=== PATIENT | male | born 1935 | race Caucasian/White ===

== ENCOUNTER 2016-03-29 11:21 | Inpatient (IN) | payer MEDICARE, OTHER ==
[2016-03-29 12:13] LABS: Hematocrit 42 % (42-52); Hemoglobin 14.2 g/dl (14.0-18.0); Mean Corpuscular HGB Conc 34 g/dl (31-36); Mean Corpuscular Hemoglobin 29 pg (27-31); Mean Corpuscular Volume 85 fL (80-94); Mean Platelet Volume 9 um3 (7.4-10.4); Red Blood Count 4.99 10^6/ul (4.0-5.4); Red Cell Distribution Width 14 % (10.5-15)
[2016-03-29] MEDS ORDERED: Albuterol/Ipratropium NEB.SOL* Albuterol 2.5 MG/Ipratropium 0.5 MG 3 ML INH ONE ×2 (12:18)
[2016-03-29 12:26] LABS: Albumin 3.9 g/dL (3.2-5.2); BUN/Creatinine Ratio 17.8 (8-20); Calcium 9.1 mg/dL (8.6-10.3); EGFR African American 65.7 (>60); EGFR Non-African American 51.1 (>60); Globulin 3.2 g/dL (2-4); Magnesium 2.1 mg/dL (1.9-2.7); Potassium 4.4 mmol/L (3.5-5.0); Total Bilirubin 0.5 mg/dL (0.2-1.0); Total Protein 7.1 g/dL (6.4-8.9)
[2016-03-29 12:27] LABS: Troponin I 0.02 ng/mL (<0.04)
--- NOTE | 2016-03-29 12:52 | ED ---
John Mack Michael, scribed for Justina Rosales MD on 03/29/16 at 1152 . HPI Diabetic - HPI Summary HPI Summary: 80 y/o male comes to the ED presenting with elevated blood glucose level of 535 at 1045 this morning. The pt wsas evaluated in the ED 03/25/16 and diagnosed with a UTI. Pt followup at the [place] on Thur and was continued on Cephalexin 500mg QID. Pt has been a challenge to manage blood glucose. [facility] to start 25units Lantus BID - this has not yet been started so pt is taking 32units daily. This am, pt reported did not feel well. Pt states called the [facility], they had him check his sugar and was>550. Pt directed to the ED. In the ED, pt had a brief episode of decreased LOC. No incontinence. Pt states his aide have not been helping him with his nebulizers so has not taken in several days. Pt reports feeling increased SOB. No cp, abd pain. No n/v/d. No cough, wheeze. No fevers, chills. Pt states feels tight "like I can't air." - History Of Current Complaint Chief Complaint: EDDiabeticProb Time Seen by Provider: 03/29/16 11:30 Hx Obtained From: Patient, Medical Records Onset/Duration: Sudden Onset, Lasting Hours Timing: Constant Severity Initially: Moderate Severity Currently: Moderate Character: Alert Associated Signs & Symptoms: Negative - nausea, vomiting, CP, coughing and nasal drainage, Shortness of Breath - positive: elevated blood glucose and IRENE - Allergies/Home Medications Allergies/Adverse Reactions: Allergies Allergy/AdvReac Type Severity Reaction Status Date / Time Nitroglycerin Allergy Severe Anaphylactic Verified 03/29/16 11:31 Shock Levofloxacin [From Levaquin] Allergy Intermediate Itching Verified 03/29/16 11: 31 Iodinated Contrast Media AdvReac Severe Altered Verified 03/29/16 11:31 [IV CONTRAST DYE] Mental Status Home Medications: Home Medications Warfarin TAB(*) [Coumadin TAB(*)] 9 tab PO DAILY 03/29/16 [History Confirmed 10/06] PMH/Surg Hx/FS Hx/Imm Hx Previously Healthy: No Endocrine/Hematology History: Reports: Hx Anticoagulant Therapy, Hx Blood Transfusions, Hx Diabetes Denies: Hx Blood Disorders, Hx Bone Marrow Disease, Hx Systemic Lupus Erythematosus, Hx Sickle Cell Disease, Hx Thyroid Disease, Hx Anemia, Hx Unexplained Bleeding Cardiovascular History: Reports: Hx Angina, Hx Angioplasty, Hx Cardiac Arrest - 03/05/14, Hx Congestive Heart Failure, Hx Coronary Artery Disease, Hx Deep Vein Thrombosis, Hx Hypercholesterolemia, Hx Hypotension, Hx Hypertension, Hx Myocardial Infarction, Hx Syncope Denies: Hx Aneurysm, Hx Auto Implanted Cardiovert Defib, Hx Cardiomegaly, Hx Congenital Heart Disease, Hx Pacemaker/ICD, Hx Peripheral Vascular Disease, Hx Rheumatic Fever, Hx Valvular Heart Disease, Other Cardiovascular Problems/ Disorders Respiratory History: Reports: Hx Chronic Bronchitis, Hx Chronic Obstructive Pulmonary Disease (COPD), Hx Pleural Effusion, Hx Pneumonia, Hx Pulmonary Edema , Hx Sleep Apnea - CPAP, Other Respiratory Problems/Disorders - Bronchitis Denies: Hx Asthma, Hx Cystic Fibrosis, Hx Lung Cancer, Hx Pulmonary Embolism , Hx Seasonal Allergies GI History: Reports: Hx Gastroesophageal Reflux Disease, Hx Hiatal Hernia, Hx Obstructive Bowel Denies: Hx Cirrhosis, Hx Crohn's Disease, Hx Diverticulosis, Hx Gall Bladder Disease, Hx Gastrointestinal Bleed, Hx Irritable Bowel, Hx Jaundice, Hx Ileostomy, Hx Pyloric Stenosis, Hx Ulcer, Other GI Disorders History: Reports: Hx Benign Prostatic Hyperplasia, Hx Kidney Infection Denies: Hx Acute Renal Failure, Hx Chronic Renal Failure, Hx Dialysis, Hx Kidney Stones, Other Problems/Disorders Musculoskeletal History: Reports: Hx Arthritis, Hx Back Problems, Other Musculoskeletal History - BLE weakness hx CVA, uses scooter at home Denies: Hx Bursitis, Hx Congenital Bone Abnormalities, Hx Fibromyalgia, Hx Gout, Hx Orthopedic Injury, Hx Osteoporosis, Hx Scoliosis, Hx Tendonitis Sensory History: Reports: Hx Cataracts - due for sx, Hx Contacts or Glasses, Hx Vision Problem, Hx Hearing Problem Denies: Hx Eye Injury, Hx Eye Prosthesis, Hx Glaucoma, Hx Legally Blind, Hx Macular Degeneration, Hx Deafness, Hx Hearing Aid, Other Sensory Impairments Opthamlomology History: Reports: Hx Cataracts - due for sx, Hx Contacts or Glasses, Hx Vision Problem Denies: Hx Eye Injury, Hx Eye Prosthesis, Hx Glaucoma, Hx Legally Blind, Hx Macular Degeneration, Other Sensory Impairments Neurological History: Reports: Hx Seizures, Hx Transient Ischemic Attacks (TIA) Denies: Hx Dementia, Hx Developmental Delay, Hx Headaches, Hx Migraine, Hx Nerve Disease, Hx Spinal Cord Injury, Other Neuro Impairments/Disorders Psychiatric History: Reports: Hx Anxiety, Hx Depression - He thinks about the of his and son often., Hx Post Traumatic Stress Disorder, Other Psychiatric Issues/Disorders - Had one episode of emotional shock, but no depression etc since. Denies: Hx Attention Deficit Hyperactivity Disorder, Hx Eating Disorder, Hx Panic Disorder, Hx Inpatient Treatment, Hx Community Mental Health Tx, Hx Schizophrenia, Hx Bipolar Disorder, Hx Suicide Attempt, Hx of Violent Episodes Against Others, Hx Substance Abuse - Cancer History Cancer Type, Location and Year: Skin cancer on scalp - Surgical History Surgery Procedure, Year, and Place: Bypass 2008. hernia 1957. left shoulder sx in [place] in 1965. CABG. 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 Negative: Fever, Chills Negative: Nasal Discharge Negative: Chest Pain Positive: Shortness Of Breath. Negative: Cough Negative: Vomiting, Nausea Negative: Bruising Positive: Headache. Negative: Weakness, Numbness Psychological: Normal All Other Systems Reviewed And Are Negative: Yes Physical Exam Triage Information Reviewed: Yes Vital Signs On Initial Exam: Initial Vitals Temp Pulse Resp BP Pulse Ox 98.4 F 61 22 155/100 95 03/29/16 11:25 03/29/16 11:25 03/29/16 11:25 03/29/16 11:25 03/29/16 11:25 Vital Signs Reviewed: Yes Appearance: Positive: Ill-Appearing - Pt with mild SOB Skin: Positive: Warm, Skin Color Reflects Adequate Perfusion Head/Face: Positive: Normal Head/Face Inspection Eyes: Positive: Normal, EOMI, LJ ENT: Positive: Normal ENT inspection, Hearing grossly normal Neck: Positive: Supple, Nontender, No Lymphadenopathy Respiratory/Lung Sounds: Positive: Clear to Auscultation, Other - decreased BS b /l bases few scattered wheeze Pt with mod accessory muscle use sp. Negative: Decreased Breath Sounds, Rales, Rhonchi, Wheezes Cardiovascular: Positive: Normal, RRR. Negative: Murmur Abdomen Description: Positive: Nontender, No Organomegaly, Soft Bowel Sounds: Positive: Present Musculoskeletal: Positive: Normal, Strength/ROM Intact Neurological: Positive: Normal, Sensory/Motor Intact, Alert, Oriented to Person Place, Time Psychiatric: Positive: Normal AVPU Assessment: Alert - Nancy Coma Scale Best Eye Response: 4 - Spontaneous Best Motor Response: 6 - Obeys Commands Best Verbal Response: 5 - Oriented Diagnostics - Vital Signs Vital Signs Temp Pulse Resp BP Pulse Ox 03/29/16 11:25 98.4 F 61 22 155/100 95 - Laboratory Lab Results: Lab Results 03/29/16 03/29/16 03/29/16 Range/Units 11:34 11:34 11:34 WBC 7.0 (3.5-10.8) 10^3/ul RBC 4.99 (4.0-5.4) 10^6/ul Hgb 14.2 (14.0-18.0) g/dl Hct 42 (42-52) % MCV 85 (80-94) fL MCH 29 (27-31) pg MCHC 34 (31-36) g/dl RDW 14 (10.5-15) % Plt Count 142 L (150-450) 10^3/ul MPV 9 (7.4-10.4) um3 Neut % (Auto) 71.0 (38-83) % Lymph % (Auto) 15.8 L (25-47) % [place] % (Auto) 9.7 H (1-9) % Eos % (Auto) 3.0 (0-6) % Baso % (Auto) 0.5 (0-2) % Absolute Neuts (auto) 4.9 (1.5-7.7) 10^3/ul Absolute Lymphs (auto) 1.1 (1.0-4.8) 10^3/ul Absolute Monos (auto) 0.7 (0-0.8) 10^3/ul Absolute Eos (auto) 0.2 (0-0.6) 10^3/ul Absolute Basos (auto) 0 (0-0.2) 10^3/ul Absolute Nucleated RBC 0 10^3/ul Nucleated RBC % 0 INR (Anticoag Therapy) (0.89-1.11) APTT (26.0-36.3) seconds Sodium 129 L (133-145) mmol/L Potassium 4.4 (3.5-5.0) mmol/L Chloride 98 L (101-111) mmol/L Carbon Dioxide 29 (22-32) mmol/L Anion Gap 2 (2-11) mmol/L BUN 24 (6-24) mg/dL Creatinine 1.35 H (0.67-1.17) mg/dL Est GFR ( Amer) 65.7 (>60) Est GFR (Non-Af Amer) 51.1 (>60) BUN/Creatinine Ratio 17.8 (8-20) Glucose 423 H (70-100) mg/dL Lactic Acid 1.4 (0.5-2.0) mmol/L Calcium 9.1 (8.6-10.3) mg/dL Magnesium 2.1 (1.9-2.7) mg/dL Total Bilirubin 0.50 (0.2-1.0) mg/dL AST 11 L (13-39) U/L ALT 8 (7-52) U/L Alkaline Phosphatase 126 H (34-104) U/L Total Creatine Kinase 40 (10-223) U/L Troponin I 0.02 (<0.04) ng/mL B-Natriuretic Peptide ( - 100) pg/mL Total Protein 7.1 (6.4-8.9) g/dL Albumin 3.9 (3.2-5.2) g/dL Globulin 3.2 (2-4) g/dL Albumin/Globulin Ratio 1.2 (1-3) Phenytoin 19.0 (10-20) mcg/mL 03/29/16 03/29/16 Range/Units 11:34 11:34 WBC (3.5-10.8) 10^3/ul RBC (4.0-5.4) 10^6/ul Hgb (14.0-18.0) g/dl Hct (42-52) % MCV (80-94) fL MCH (27-31) pg MCHC (31-36) g/dl RDW (10.5-15) % Plt Count (150-450) 10^3/ul MPV (7.4-10.4) um3 Neut % (Auto) (38-83) % Lymph % (Auto) (25-47) % [place] % (Auto) (1-9) % Eos % (Auto) (0-6) % Baso % (Auto) (0-2) % Absolute Neuts (auto) (1.5-7.7) 10^3/ul Absolute Lymphs (auto) (1.0-4.8) 10^3/ul Absolute Monos (auto) (0-0.8) 10^3/ul Absolute Eos (auto) (0-0.6) 10^3/ul Absolute Basos (auto) (0-0.2) 10^3/ul Absolute Nucleated RBC 10^3/ul Nucleated RBC % INR (Anticoag Therapy) 1.57 H (0.89-1.11) APTT 30.2 (26.0-36.3) seconds Sodium (133-145) mmol/L Potassium (3.5-5.0) mmol/L Chloride (101-111) mmol/L Carbon Dioxide (22-32) mmol/L Anion Gap (2-11) mmol/L BUN (6-24) mg/dL Creatinine (0.67-1.17) mg/dL Est GFR ( Amer) (>60) Est GFR (Non-Af Amer) (>60) BUN/Creatinine Ratio (8-20) Glucose (70-100) mg/dL Lactic Acid (0.5-2.0) mmol/L Calcium (8.6-10.3) mg/dL Magnesium (1.9-2.7) mg/dL Total Bilirubin (0.2-1.0) mg/dL AST (13-39) U/L ALT (7-52) U/L Alkaline Phosphatase (34-104) U/L Total Creatine Kinase (10-223) U/L Troponin I (<0.04) ng/mL B-Natriuretic Peptide 308 H ( - 100) pg/mL Total Protein (6.4-8.9) g/dL Albumin (3.2-5.2) g/dL Globulin (2-4) g/dL Albumin/Globulin Ratio (1-3) Phenytoin (10-20) mcg/mL Result Diagrams: 03/29/16 11:34 03/29/16 11:34 Lab Statement: Any lab studies that have been ordered have been reviewed, and results considered in the medical decision making process. - Radiology CXR Xray Interpretation: Positive (See Comments) - 1. LOW LUNG VOLUMES. 2. PATCHY LEFT BASILAR ATELECTASIS VERSUS CONSOLIDATION Radiology Interpretation Completed By: Radiologist - EKG EK EKG Rhythm: Sinus Bradycardia EKG Interpretation: LBBB. similar to previous EKG on 01/2016 Re-Evaluation - Re-Evaluation First Eval Change: Improved - Pt improved following neb improved BS throughout No accessory muscle use + BS throughout no w/r Diabetic Course/Dx - Course Course Of Treatment: 80 y/o male c/o elevated blood glucose, IRENE, and SOB. The CXR was positive for low lung volume and patchy left basilar atelectasis versus consolidation. The pt was accepted as an admission by Dr. Quinn. - Diagnoses Provider Diagnoses: COPD exacerbation, Hyperglycemia - Physician Notifications Discussed Care of Patient With: Dr. Quinn-Hospitalist Time Discussed With Above Provider: 13:10 - agrees to accept pt as an admission Instructed by Provider To: Admit As Inpatient Discharge - Discharge Plan Condition: Guarded Disposition: ADMITTED TO [facility] Referrals: Jeremiah Ruano MD [Primary Care Provider] - The documentation as recorded by the John couch Michael accurately reflects the service I personally performed and the decisions made by Bobby schafer Laura, MD.
--- NOTE | 2016-03-29 13:11 | RAD ---
HISTORY: Dyspnea COMPARISONS: March 25, 2016 VIEWS:1: Single frontal portable view of the chest at 1:00 PM FINDINGS: LINES AND TUBES: None. CARDIOMEDIASTINAL SILHOUETTE: The cardiomediastinal silhouette is normal for portable technique. PLEURA: The costophrenic angles are sharp. No pleural abnormalities are noted. LUNG PARENCHYMA: The lung volumes are low. There is patchy alveolar opacification of the left lung base. ABDOMEN: The upper abdomen is clear. There is no subphrenic gas. BONES AND SOFT TISSUES: The patient is status post median sternotomy. IMPRESSION: 1. LOW LUNG VOLUMES. 2. PATCHY LEFT BASILAR ATELECTASIS VERSUS CONSOLIDATION
[2016-03-29 13:21] LABS: PCO2 Arterial 42 mmHg (35-45)
[2016-03-29] MEDS ORDERED: Ondansetron INJ* 2 MG/ML VIAL IV PRN (13:47)
[2016-03-29] MEDS ORDERED: Dextrose 50% Syringe 50 ML* 25 GM/50 ML SYRINGE IV PUSH PRN ×2 (13:47→17:42)
[2016-03-29] MEDS ORDERED: Acetaminophen TAB* 325 MG PO PRN (13:47)
[2016-03-29] MEDS ORDERED: Albuterol 2.5 MG/3 ML NEB.SOL* (0.083%) INH PRN (13:47)
[2016-03-29] MEDS ORDERED: Heparin VIAL(*) 5000 UNITS/ML VIAL (FIVE THOUSAND) SUBCUT SCH (14:00)
[2016-03-29] MEDS: Albuterol/Ipratropium NEB.SOL* Albuterol 2.5 MG/Ipratropium 0.5 MG 3 ML INH SCH ×3 (15:50→22:40)
[2016-03-29] MEDS: Cephalexin CAP* 500 MG PO SCH ×2 (16:19→20:57)
[2016-03-29] MEDS: Warfarin TAB(*) 6 MG PO SCH (16:19)
[2016-03-29] MEDS ORDERED: Insulin LISPRO* 1 UNITS UNIT SUBCUT ONE (17:42)
[2016-03-29] MEDS: Insulin LISPRO* 1 UNITS UNIT SUBCUT SCH (17:49)
[2016-03-29] MEDS: Budesonide NEB* 0.5 MG/2 ML NEB.SOLN INH SCH (20:20)
[2016-03-29] MEDS: Phenytoin CAP(*) 100 MG CAP.ER PO SCH (20:57)
[2016-03-29] MEDS: traZODone TAB* 50 MG TAB PO SCH (20:57)
[2016-03-29] MEDS: Furosemide TAB* 40 MG PO SCH (20:57)
[2016-03-29] MEDS: Insulin GLARGINE(*) 1 UNITS UNIT SUBCUT SCH (20:58)
--- NOTE | 2016-03-29 21:40 | HP ---
HISTORY AND PHYSICAL:* DATE OF ADMISSION: 03/29/16 ADDENDUM: Foster Escamilla is a 80-year-old male known to us for previous multiple hospitalizations. The patient has a history of oxygen-dependent COPD and chronic hypercarbic respiratory failure. The patient also has history of recurrent syncopal episodes in the past and left bundle-branch block. He presented to the hospital with complaints of hyperglycemia. He also was noted to be wheezing. He had a syncopal episode in the emergency room. He is in sinus bradycardia at this point. The patient is going to be placed for overnight observation due to his syncope. His COPD is going to be continued to be treated with outpatient medications and nebulizers. We will adjust his medications for his diabetes. For further details of the patient's presentation and plan, please see history and physical dictated by Alex Alegria NP, on 03/29/16 with which I agree. [id number]/CPS #: [id number] MTDD
--- NOTE | 2016-03-29 21:56 | HP ---
ATTENDING PROVIDER ADDENDUM NOW INCLUDED ON THIS REPORT HISTORY AND PHYSICAL: DATE OF ADMISSION: 03/29/16 PRIMARY CARE PROVIDER: Kamla Henry NP ATTENDING PHYSICIAN WHILE IN THE HOSPITAL: Dr. Jonelle Quinn *(report dictated by Alex Alegria NP). CHIEF COMPLAINT: Elevated blood sugar. HISTORY OF PRESENT ILLNESS: Mr. Escamilla is a 80-year-old male patient well known to our service who comes in to the ER again today stating that his blood sugar is high at 535. He was just here on the third of this month. I evaluated the patient, adjusted his Lantus, and he was diagnosed with UTI, was treated with this appropriately with Keflex and he came back again today because his sugars had been elevated. He apparently saw his primary on , was told to increase his Lantus to 25 subcu b.i.d. which he misread as 25 once a day. He checked his sugars this morning. It was 535. He came in to the ER. He also carries a history of coronary artery disease, history of SC, diabetes, hypertension, depression, COPD, TAMICA, tracheomalacia, obesity, hypoventilation syndrome, BPH, seizure, CVA x3, hyperlipidemia, hypertension, and history of skin cancer. The patient on the way when he was first evaluated here in the ER , he had an episode where he was very tachypneic. He felt very short of breath. He actually had a presyncopal episode. He felt like he is going to faint. The nurse said that he did appear to have fainted possibly for 10 to 15 seconds. The nurse had to sternal rub him and he awoken and he knew where he was. Unfortunately, he was not on the clinical research monitor when that happened. They treated the patient's shortness of breath with nebs. He felt better, but there was concern because his sugars are not well controlled. In addition to this, he had been more short of breath when he first came in and he also states that there was a presyncopal or syncopal episode. The patient denies having any chest pain. He does not have any shortness of breath now. He says he did feel short of breath coming in, but he says he has been missing his nebs off and on because according to the patient, there has been trouble with his aide service at home. He also says he is under a lot of stress because he is being relocated from his home of 13 [address] in [place] which he is not happy about. He does state that he had dysuria 3 days ago, but is now much improved since being on the antibiotics. Denies any fevers or chills. There has been no nausea, vomiting, or diarrhea. Ultimately, because of that syncopal episode in the ER, we were asked to evaluate for admission and help manage his other medical problems. PAST MEDICAL HISTORY: Significant for: 1. CAD. 2. SC. 3. Diabetes. 4. Hypertension. 5. Depression. 6. COPD. 7. TAMICA. 8. Tracheomalacia. 9. Obesity. 10. Hypoventilation syndrome. 11. Seizure. 12. CVA x3. 13. Hypertension. 14. BPH. 15. Skin cancer. PAST SURGICAL HISTORY: 1. He has had CABG. 2. Tracheostomy. 3. Hernia repair. HOME MEDICATIONS: According to the list he gave us: 1. Coreg 3.125 mg p.o. b.i.d. 2. Lantus 25 units subcu b.i.d., recently changed from 37 units daily. 3. Ventolin 2.5 inhaled q.4 hours as needed. 4. Lipitor 10 mg daily. 5. Aspirin 81 mg daily. 6. Ventolin 2 puffs inhaled every 4 hours as needed. 7. Lubricant eye drops 1 drop both eyes b.i.d. as needed. 8. Pulmicort 0.5 mg inhaled b.i.d. 9. Vitamin D 2000 units daily. 10. Clobetasol 1 application topically b.i.d. as needed. 11. Lasix 40 mg p.o. b.i.d. 12. Proscar 5 mg p.o. daily. 13. Nystatin 1 application topically b.i.d. as needed. 14. Multivitamin 1 tablet daily. 15. Zoloft 100 mg daily. 16. Senna 2 tabs p.o. b.i.d. as needed. 17. Dilantin 200 mg p.o. b.i.d. 18. Warfarin 9 mg p.o. Thursday, Thursday, Thursday. 19. Warfarin 6 mg Thursday, Thursday, , and Thursday. 20. Guaifenesin 5 mg p.o. every 4 hours as needed. 21. Trazodone 75 mg at bedtime. 22. Glucophage 500 mg at bedtime. ALLERGIES TO MEDICATIONS: Include NITRO, LEVAQUIN, and IV DYE. FAMILY HISTORY: Mother had a history of heart disease. Father had a history of rectal cancer. SOCIAL HISTORY: He does not smoke, does not drink. Lives alone. Surrogate decision maker is his friend, Anabella. REVIEW OF SYSTEMS: There is no documented fever. He denied having any significant weight change. There was no double vision. There is no ear discharge. He denies having any rhinorrhea. There is no sore throat. No thyroid enlargement. Denies having any chest pain. There was dyspnea on exertion when he came to the ER today. There is no orthopnea. No nocturnal dyspnea. There is no abdominal pain. No vomiting. There was dysuria, but has now improved. No frequency. No seizure. There was loss of consciousness in the ER. Review of 14 systems completed, all others negative. PHYSICAL EXAMINATION GENERAL: At this time, Mr. Escamilla is a 80-year-old male patient. He appears chronically ill. He is sitting on the ER stretcher. He does not appear to be in any acute distress. VITAL SIGNS: Blood pressure 119/44, pulse 50, respirations 17, O2 sat 97%, temperature 98.4. HEENT: Head: Atraumatic, normocephalic. Eyes: EOMs intact. Sclerae are anicteric and not pale. Throat: Oral mucosa appears to be moist. No oropharyngeal erythema. NECK: Supple. LUNGS: Clear to auscultation bilaterally. No wheezes, rales, or rhonchi. HEART: Sounds S1, S2. Irregular rate. There was a regular rhythm. His resting heart rate was 50. No murmurs, rubs, or gallops. ABDOMEN: Soft, flat, nontender. Bowel sounds present. EXTREMITIES: Pulses were 2+ throughout. He is able to move all 4 extremities with 5/5 strength. NEUROLOGIC: He is awake, alert, and oriented x3. Tongue midline. Salvage Repairer are equal. No gross focal deficits. SKIN: Grossly intact. LABORATORY DATA AND DIAGNOSTIC STUDIES: Today revealed a WBC of 7.0, RBC of 4.99, hemoglobin of 14.2, hematocrit of 43, platelet count of 142. INR was 1.57. PTT of 30.2. Blood gas revealed a pH of 7.42, PCO2 of 42, PO2 of 87. His sodium was 129, potassium of 4.4, chloride of 98, bicarb 29, BUN 24, creatinine 1.35, glucose 423, lactic 1.4, calcium 9.1, mag 2.1. Total bili 0.5 , AST 11, ALT 8, alk phos 129. CK of 40. Troponin 0.02. BNP of 308. Albumin of 3.9. Toxicology showed a phenytoin level of 19. He had a chest x-ray obtained today and under my review, I did not appreciate any acute infiltrates. Radiology read it as low lung volumes, patchy left bibasilar atelectasis versus consolidation. He had an EKG obtained today which showed a first degree AV block. He has an elevated [place]. He has a PVC noted. His resting heart rate was 49 and he had a left bundle branch block. Heart rate on 03/25/16 was noted to be 67. Old medical records were reviewed. ASSESSMENT AND PLAN: Mr. Escamilla is a 80-year-old male patient coming in to the ER today with complaints of elevated glucose, but on evaluation here today had a syncopal episode here in the ER. He will be admitted under outpatient status for: 1. Hyperglycemia: At this point, he told me on 03/25/16 that he was having dietary indiscretion, but I also think that his urinary tract infection is probably contributing. I am going to go ahead and continue him on lispro sliding scale. His Lantus was just changed on 03/27/16 to 25 b.i.d., but he has not implemented it yet. So, we will put him on Lantus 25 b.i.d. and see how this improves his sugar and we will continue his metformin. I will put him on a consistent carbohydrate diet. 2. Syncopal episode: Again, etiology unclear. Resting heart rate is 49 to 50 , which may be symptomatic in this patient. I think at this point, we will hold his Coreg. Check an echo, place him on telemetry to see if we can capture any episodes on telemetry. May need to consider a Cardiology consult. 3. Coronary artery disease: Continue his aspirin and statin. We will hold the beta-placido. 4. History of diabetes: Again, put him on lispro sliding scale and Lantus. 5. Hypertension: Continue meds as prescribed. 6. Depression: Continue with supportive care. 7. Chronic obstructive pulmonary disease: When he came in, he was hyperventilating which certainly may have contributed to the syncope. He says he has not been taking his nebs. After getting a neb here in the ER, he says his breathing is back to his baseline and he is not wheezing. So, at this point , we will continue the nebs every 4 hours while he is awake and continue his home meds. 8. Obstructive sleep apnea: I ordered a CPAP. 9. Obesity and tracheomalacia: Follow with his primary. 10. Hypoventilation syndrome: Again, CPAP on sleeping. 11. Seizure: Please continue his Dilantin and we will continue seizure precautions. 12. History of cerebrovascular accident x3: Continue with secondary prevention. 13. Hyperlipidemia: Continue statin therapy. 14. Benign prostatic hypertrophy: Continue meds as prescribed. 15. DVT prophylaxis: INR is 1.57. We can continue his Coumadin for the time being. 16. Code status: He is a full code. 17. Fluids, electrolytes, and nutrition: He can have a consistent carbohydrate diet. TIME SPENT: Time spent on the admission was approximately 60 minutes; greater than half the time was spent [id number] with the patient obtaining my history and physical, other half the time spent going over the plan of care with the patient and implementing plan of care. I did discuss the plan of care with my attending, Dr. Quinn; she is in agreement. ALEX ALEGRIA NP ADDENDUM: Foster Escamilla is a 80-year-old male known to us for previous multiple hospitalizations. The patient has a history of oxygen-dependent COPD and chronic hypercarbic respiratory failure. The patient also has history of recurrent syncopal episodes in the past and left bundle-branch block. He presented to the hospital with complaints of hyperglycemia. He also was noted to be wheezing. He had a syncopal episode in the emergency room. He is in sinus bradycardia at this point. The patient is going to be placed for overnight observation due to his syncope. His COPD is going to be continued to be treated with outpatient medications and nebulizers. We will adjust his medications for his diabetes. For further details of the patient's presentation and plan, please see history and physical dictated by Alex Alegria NP, on 03/29/16 with which I agree. JONELLE QUINN MD CC: Kamla Henry NP* [id number] #: [id number] #: [id number] MTDGeorgina
[2016-03-30] MEDS: Albuterol/Ipratropium NEB.SOL* Albuterol 2.5 MG/Ipratropium 0.5 MG 3 ML INH SCH ×6 (03:00→23:52)
[2016-03-30 05:17] LABS: Hematocrit 36 % (42-52); Hemoglobin 12.3 g/dl (14.0-18.0); Mean Corpuscular HGB Conc 34 g/dl (31-36); Mean Corpuscular Hemoglobin 29 pg (27-31); Mean Corpuscular Volume 84 fL (80-94); Mean Platelet Volume 9 um3 (7.4-10.4); Red Blood Count 4.32 10^6/ul (4.0-5.4); Red Cell Distribution Width 15 % (10.5-15); White Blood Count 6.2 10^3/ul (3.5-10.8)
[2016-03-30 05:32] LABS: BUN/Creatinine Ratio 25.4 (8-20); Calcium 8.6 mg/dL (8.6-10.3); EGFR African American 76.8 (>60); EGFR Non-African American 59.7 (>60); Potassium 4.1 mmol/L (3.5-5.0)
[2016-03-30] MEDS: Budesonide NEB* 0.5 MG/2 ML NEB.SOLN INH SCH ×2 (07:23→21:18)
[2016-03-30] MEDS: Atorvastatin* 10 MG TAB PO SCH (08:38)
[2016-03-30] MEDS: Furosemide TAB* 40 MG PO SCH ×2 (08:38→22:25)
[2016-03-30] MEDS: Cephalexin CAP* 500 MG PO SCH ×4 (08:38→22:25)
[2016-03-30] MEDS: Phenytoin CAP(*) 100 MG CAP.ER PO SCH ×2 (08:38→22:24)
[2016-03-30] MEDS: Finasteride TAB* 5 MG PO SCH (08:39)
[2016-03-30] MEDS: Insulin LISPRO* 1 UNITS UNIT SUBCUT SCH ×3 (08:39→17:39)
[2016-03-30] MEDS: Aspirin EC Low Dose* 81 MG TAB.EC PO SCH (08:39)
[2016-03-30] MEDS: Sertraline* 100 MG TAB PO SCH (08:39)
[2016-03-30] MEDS: Insulin GLARGINE(*) 1 UNITS UNIT SUBCUT SCH ×2 (08:40→22:26)
[2016-03-30] MEDS ORDERED: Influenza VAC *QUAD* 2016-17* 0.5 ML SYRINGE IM ONE (09:00)
[2016-03-30] MEDS ORDERED: Pneumococcal *Vac Polyvalent 0.5 ML VIAL IM ONE (09:00)
--- NOTE | 2016-03-30 14:21 | ECHO ---
Patient: MONSTER HENDERSON [facility] Rec#: [id number] : 1935 Date: 03/30/2016 Age: 80y Weight: kg / NaN lbs Sex: M Room#: 442 Admit Date#: 03/29/2016 Type: Inpatient Referring: Alex Alegria NP Reading: Kali Chapman MD Heart Coordinator: Meghan Puente RDCS CC: Jeremiah Ruano MD Transthoracic Echocardiogram Indication: SOB/Syncope BP: 122/57 HR: 62 Rhythm: NSR Findings History: CAD,NV,DM,HTN,depression,COPD,TAMICA,MO,seizures,prior CVAx3,HTN. Technical Comments: The study is technically limited due to patient body habitus. The study is technically limited due to the patient's history of COPD. Completed at 1039 The study was technically limited due to the patient's inability to lay in the left lateral decubitus position. Pt OOB in chair during study. Left Ventricle: The left ventricular chamber size is decreased. Moderate concentric left ventricular hypertrophy is observed. The estimated ejection fraction is 55-60%. There is a left ventricular septal wall motion abnormality observed, possibly due to the presence of a left bundle branch block. The left ventricular diastolic filling pattern is consistent with pseudonormalization. Left Atrium: The left atrium is moderately dilated. Right Ventricle: The right ventricle is not well visualized. Right Atrium: The right atrial cavity size is normal. Aortic Valve: The aortic valve leaflets are moderately thickened. Systolic excursion of the aortic valve cusps is reduced. There is no evidence of aortic regurgitation. There is severe aortic stenosis. Highest aortic valve velocity was acquired with Pedoff in apical position. Mitral Valve: There is anterior mitral annular calcification. The mitral valve leaflets are moderately thickened. Mitral valve leaflet mobility is moderately restricted. There is no evidence of mitral regurgitation. There is moderate mitral stenosis. Tricuspid Valve: The tricuspid valve structure is not well visualized. Pulmonic Valve: The pulmonic valve structure is not well visualized. Pericardium: There is no pericardial effusion. A pericardial fat pad is visualized. Aorta: There is no dilatation of the ascending aorta. There is no dilatation of the aortic arch. There is mild dilatation of the aortic root. Pulmonary Artery: The main pulmonary artery appears normal. Venous: The venous system is not well visualized. Conclusions The study is technically limited due to the patient's history of COPD. Completed at 1039 Moderate concentric left ventricular hypertrophy is observed. The estimated ejection fraction is 55-60%. There is a left ventricular septal wall motion abnormality observed, possibly due to the presence of a left bundle branch block. The left ventricular diastolic filling pattern is consistent with pseudonormalization. Systolic excursion of the aortic valve cusps is reduced. There is severe aortic stenosis. There is no evidence of aortic regurgitation. The mitral valve leaflets are moderately thickened. There is moderate mitral stenosis. The tricuspid valve structure is not well visualized. There is no pericardial effusion. There is no dilatation of the ascending aorta. Measurements Name Value Normal Range RVIDd (AP) 2D 3.5 cm (0.9 - 2.6) RVDdMajor (2D) 3.4 cm (2.2 - 4.4) RAd ISD 4CH 4.5 cm (3.4 - 4.9) RA (A4C)W 3.8 cm (2.9 - 4.6) IVSd (2D) 1.7 cm (0.6 - 1) LVPWd (2D) 1.5 cm (0.6 - 1) LVIDd (2D) 3.5 cm (3.6 - 5.4) LVIDs (2D) 2.9 cm - LV FS (2D) 40 % (25 - 45) Aortic Annulus 2.1 cm (1.4 - 2.6) Ao root diameter (2D) 3 cm (2.1 - 3.5) Ascending Ao 3.9 cm (2.1 - 3.4) Aortic arch 2.8 cm (1.8 - 3.4) Descending Ao 0.7 cm - LA dimension (AP) 2D 4.5 cm (2.3 - 3.8) LAd ISD 4CH 5.9 cm (2.9 - 5.3) LA ISD 4CH W 4.3 cm (2.5 - 4.5) Name Value Normal Range LA ESV SP 4CH (A/L) 90 ml - LA ESV SP 2CH (A/L) 122 ml - LA ESV BP (A/L) 120 ml - LA ESV BP (A/L) index 62.79 ml/m2 - LA ESV SP 4CH (MOD) 85 ml - LA ESV SP 2CH (MOD) 113 ml - Name Value Normal Range MV E-wave Vmax 1.8 m/sec - MV deceleration time 437 msec - MV A-wave Vmax 1.4 m/sec - MV E:A ratio 1.25 ratio - LV septal e' Vmax 0.06 m/sec - LV lateral e' Vmax 0.07 m/sec - LV E:e' septal ratio 30 ratio - LV E:e' lateral ratio 25.71 ratio - Name Value Normal Range AV Vmax 3.57 m/sec - AV VTI 84.24 cm - AV peak gradient 50.39 mmHg - AV mean gradient 21.31 mmHg - LVOT diameter 1.8 cm - LVOT Vmax 1 m/sec - LVOT VTI 22.4 cm - LVOT peak gradient 4.3 mmHg - LVOT mean gradient 1.89 mmHg - MARQUEZ (continuity Vmax) 0.7 cm2 - MARQUEZ (continuity VTI) 0.7 cm2 - Name Value Normal Range MV Vmax 1.8 m/sec - MV VTI 74.3 cm - MV peak gradient 13.32 mmHg - MV mean gradient 5.36 mmHg - MV PHT 128 msec - MVA (PHT) 1.7 cm2 - MVA (continuity VTI) 0.8 cm2 - Name Value Normal Range IVC diameter 2.3 cm - Name Value Normal Range PV Vmax 1.3 m/sec - PV peak gradient 6.59 mmHg -
--- NOTE | 2016-03-30 16:52 | PN ---
Subjective Date of Service: 03/30/16 Interval History: Seen and examined this AM Feels LH when walking. He is concerned about returning home today. Objective Active Medications: Acetaminophen (Tylenol Tab*) 650 mg PO Q4H PRN PRN Reason: FEVER/PAIN Albuterol (Ventolin 2.5 Mg/3 Ml Neb.Kika*) 2.5 mg INH Q2H PRN PRN Reason: SOB/WHEEZING Albuterol/Ipratropium (Duoneb Neb.Kika*) 1 neb INH [id number] AWAKE [facility] Last Admin: 03/30/16 16:07 Dose: 1 neb Aspirin (Aspirin Ec Low Dose*) 81 mg PO QAM [facility] Last Admin: 03/30/16 08:39 Dose: 81 mg Atorvastatin Calcium (Lipitor*) 10 mg PO DAILY [facility] Last Admin: 03/30/16 08:38 Dose: 10 mg Budesonide (Pulmicort Neb*) 0.5 mg INH BID [facility] Last Admin: 03/30/16 07:23 Dose: 0.5 mg Cephalexin HCl (Keflex Cap*) 500 mg PO QID [facility] Last Admin: 03/30/16 12:43 Dose: 500 mg Dextrose (D50w Syringe 50 Ml*) 12.5 gm IV PUSH .FOR FS < 60 - SS PRN PRN Reason: FS < 60 Finasteride (Proscar Tab*) 5 mg PO DAILY [facility] Last Admin: 03/30/16 08:39 Dose: 5 mg Furosemide (Lasix Tab*) 40 mg PO BID [facility] Last Admin: 03/30/16 08:38 Dose: 40 mg Insulin Glargine (Lantus(*)) 25 units SUBCUT BID [facility] Last Admin: 03/30/16 08:40 Dose: 25 unit Insulin Human Lispro (Humalog*) 0 units SUBCUT AC [facility] PRN Reason: Protocol Last Admin: 03/30/16 12:31 Dose: 12 units Ondansetron HCl (Zofran Inj*) 4 mg IV Q6H PRN PRN Reason: NAUSEA Phenytoin Sodium (Dilantin Cap(*)) 200 mg PO BID [facility] Last Admin: 03/30/16 08:38 Dose: 200 mg Sertraline HCl (Zoloft*) 100 mg PO QAM [facility] Last Admin: 03/30/16 08:39 Dose: 100 mg Trazodone HCl (Desyrel Tab*) 75 mg PO BEDTIME [facility] Last Admin: 03/29/16 20:57 Dose: 75 mg Warfarin Sodium (Coumadin Tab(*)) 6 mg PO SUTUTHSA@1700 [facility] PRN Reason: Protocol Last Admin: 03/29/16 16:19 Dose: 6 mg Warfarin Sodium (Coumadin Tab(*)) 9 mg PO MOWEFR@1700 [facility] PRN Reason: Protocol Vital Signs 03/29/16 03/29/16 03/29/16 17:07 17:32 19:28 Temperature 97.9 F 98.0 F Pulse Rate 60 60 Respiratory 20 20 Rate Blood Pressure 143/53 114/45 (mmHg) O2 Sat by Pulse 98 98 98 Oximetry 03/29/16 03/29/16 03/29/16 19:42 20:00 20:33 Temperature Pulse Rate 53 Respiratory 18 20 18 Rate Blood Pressure (mmHg) O2 Sat by Pulse 98 Oximetry 03/30/16 03/30/16 03/30/16 00:10 03:25 07:26 Temperature 97.3 F 96.8 F Pulse Rate 57 50 51 Respiratory 20 20 18 Rate Blood Pressure 130/55 122/57 (mmHg) O2 Sat by Pulse 98 100 99 Oximetry 03/30/16 03/30/16 03/30/16 07:33 08:00 11:05 Temperature 98.0 F Pulse Rate 46 51 Respiratory 16 18 18 Rate Blood Pressure 111/79 (mmHg) O2 Sat by Pulse 100 99 Oximetry 03/30/16 03/30/16 11:37 16:09 Temperature Pulse Rate 50 56 Respiratory 16 Rate Blood Pressure 145/41 (mmHg) O2 Sat by Pulse 98 100 Oximetry Oxygen Devices in Use Now: Nasal Cannula Appearance: NAD, sitting in chair Eyes: No Scleral Icterus, PERRLA Ears/Nose/Mouth/Throat: Mucous Membranes Moist Neck: NL Appearance and Movements; NL JVP, Trachea Midline Respiratory: Symmetrical Chest Expansion and Respiratory Effort, - - decreased in bases Cardiovascular: RRR Abdominal: NL Sounds; No Tenderness; No Distention, No Hepatosplenomegaly Extremities: No Edema Neurological: Alert and Oriented x 3 Result Diagrams: 03/30/16 04:51 03/30/16 04:51 Additional Lab and Data: Lab Results 03/29/16 03/29/16 03/29/16 Range/Units 11:34 11:34 11:34 WBC 7.0 (3.5-10.8) 10^3/ul RBC 4.99 (4.0-5.4) 10^6/ul Hgb 14.2 (14.0-18.0) g/dl Hct 42 (42-52) % MCV 85 (80-94) fL MCH 29 (27-31) pg MCHC 34 (31-36) g/dl RDW 14 (10.5-15) % Plt Count 142 L (150-450) 10^3/ul MPV 9 (7.4-10.4) um3 Neut % (Auto) 71.0 (38-83) % Lymph % (Auto) 15.8 L (25-47) % Jessamine % (Auto) 9.7 H (1-9) % Eos % (Auto) 3.0 (0-6) % Baso % (Auto) 0.5 (0-2) % Absolute Neuts (auto) 4.9 (1.5-7.7) 10^3/ul Absolute Lymphs (auto) 1.1 (1.0-4.8) 10^3/ul Absolute Monos (auto) 0.7 (0-0.8) 10^3/ul Absolute Eos (auto) 0.2 (0-0.6) 10^3/ul Absolute Basos (auto) 0 (0-0.2) 10^3/ul Absolute Nucleated RBC 0 10^3/ul Nucleated RBC % 0 INR (Anticoag Therapy) (0.89-1.11) APTT (26.0-36.3) seconds Sodium 129 L (133-145) mmol/L Potassium 4.4 (3.5-5.0) mmol/L Chloride 98 L (101-111) mmol/L Carbon Dioxide 29 (22-32) mmol/L Anion Gap 2 (2-11) mmol/L BUN 24 (6-24) mg/dL Creatinine 1.35 H (0.67-1.17) mg/dL Est GFR ( Amer) 65.7 (>60) Est GFR (Non-Af Amer) 51.1 (>60) BUN/Creatinine Ratio 17.8 (8-20) Glucose 423 H (70-100) mg/dL Lactic Acid 1.4 (0.5-2.0) mmol/L Calcium 9.1 (8.6-10.3) mg/dL Magnesium 2.1 (1.9-2.7) mg/dL Total Bilirubin 0.50 (0.2-1.0) mg/dL AST 11 L (13-39) U/L ALT 8 (7-52) U/L Alkaline Phosphatase 126 H (34-104) U/L Total Creatine Kinase 40 (10-223) U/L Troponin I 0.02 (<0.04) ng/mL B-Natriuretic Peptide ( - 100) pg/mL Total Protein 7.1 (6.4-8.9) g/dL Albumin 3.9 (3.2-5.2) g/dL Globulin 3.2 (2-4) g/dL Albumin/Globulin Ratio 1.2 (1-3) Phenytoin 19.0 (10-20) mcg/mL 03/29/16 03/29/16 Range/Units 11:34 11:34 WBC (3.5-10.8) 10^3/ul RBC (4.0-5.4) 10^6/ul Hgb (14.0-18.0) g/dl Hct (42-52) % MCV (80-94) fL MCH (27-31) pg MCHC (31-36) g/dl RDW (10.5-15) % Plt Count (150-450) 10^3/ul MPV (7.4-10.4) um3 Neut % (Auto) (38-83) % Lymph % (Auto) (25-47) % Jessamine % (Auto) (1-9) % Eos % (Auto) (0-6) % Baso % (Auto) (0-2) % Absolute Neuts (auto) (1.5-7.7) 10^3/ul Absolute Lymphs (auto) (1.0-4.8) 10^3/ul Absolute Monos (auto) (0-0.8) 10^3/ul Absolute Eos (auto) (0-0.6) 10^3/ul Absolute Basos (auto) (0-0.2) 10^3/ul Absolute Nucleated RBC 10^3/ul Nucleated RBC % INR (Anticoag Therapy) 1.57 H (0.89-1.11) APTT 30.2 (26.0-36.3) seconds Sodium (133-145) mmol/L Potassium (3.5-5.0) mmol/L Chloride (101-111) mmol/L Carbon Dioxide (22-32) mmol/L Anion Gap (2-11) mmol/L BUN (6-24) mg/dL Creatinine (0.67-1.17) mg/dL Est GFR ( Amer) (>60) Est GFR (Non-Af Amer) (>60) BUN/Creatinine Ratio (8-20) Glucose (70-100) mg/dL Lactic Acid (0.5-2.0) mmol/L Calcium (8.6-10.3) mg/dL Magnesium (1.9-2.7) mg/dL Total Bilirubin (0.2-1.0) mg/dL AST (13-39) U/L ALT (7-52) U/L Alkaline Phosphatase (34-104) U/L Total Creatine Kinase (10-223) U/L Troponin I (<0.04) ng/mL B-Natriuretic Peptide 308 H ( - 100) pg/mL Total Protein (6.4-8.9) g/dL Albumin (3.2-5.2) g/dL Globulin (2-4) g/dL Albumin/Globulin Ratio (1-3) Phenytoin (10-20) mcg/mL Assess/Plan/Problems-Billing Assessment: 80 yo M multiple medical problems presenting to [facility] [place] with hyperglycemia after medication changes as outpatient - Patient Problems (1) Diabetes mellitus Comment: Complicated by hyperglycemia Increased lantus to 25U BID Remains high today Remain hospitalized for further medication adjustments c/w lantus and SSI (2) Afib Comment: Bradycardic on admission Possibly contributing to LH and episode of presyncope in ED diltiazem discontinued c/w coumadin - check INR in AM (3) Aortic stenosis Comment: Seen on TTE Not new unlikely etiology of presyncope as patient was at rest avoid any aggressive volume repletion (4) TAMICA (obstructive sleep apnea) Comment: Continue CPAP (5) Obesity hypoventilation syndrome Comment: CPAP (6) UTI (urinary tract infection) Comment: c/w keflex day 5 (7) Seizure Comment: Continue phenytoin. (8) DVT prophylaxis Comment: coumadin
[2016-03-30 17:27] LABS: EGFR African American 61.5 (>60); EGFR Non-African American 47.8 (>60); Potassium 4.2 mmol/L (3.5-5.0)
[2016-03-30] MEDS: Warfarin TAB(*) 6 MG PO SCH (17:40)
[2016-03-30] MEDS: traZODone TAB* 50 MG TAB PO SCH (22:24)
[2016-03-31 01:28] LABS: Budding Yeast Present (Absent); Urine Bacteria Absent (Absent); Urine Bilirubin Negative (Negative); Urine Glucose 3+(>=500 mg/dL) (Negative); Urine Nitrite Negative (Negative)
[2016-03-31] MEDS: Albuterol/Ipratropium NEB.SOL* Albuterol 2.5 MG/Ipratropium 0.5 MG 3 ML INH SCH ×6 (03:17→22:54)
[2016-03-31] MEDS: Sertraline* 100 MG TAB PO SCH (08:19)
[2016-03-31] MEDS: Cephalexin CAP* 500 MG PO SCH ×3 (08:19→17:53)
[2016-03-31] MEDS: Finasteride TAB* 5 MG PO SCH (08:19)
[2016-03-31] MEDS: Phenytoin CAP(*) 100 MG CAP.ER PO SCH (08:19)
[2016-03-31] MEDS: Atorvastatin* 10 MG TAB PO SCH (08:19)
[2016-03-31] MEDS: Furosemide TAB* 40 MG PO SCH (08:20)
[2016-03-31] MEDS: Aspirin EC Low Dose* 81 MG TAB.EC PO SCH (08:20)
[2016-03-31] MEDS: Insulin LISPRO* 1 UNITS UNIT SUBCUT SCH ×3 (08:20→17:53)
[2016-03-31] MEDS: Insulin GLARGINE(*) 1 UNITS UNIT SUBCUT SCH (08:20)
[2016-03-31] MEDS: Budesonide NEB* 0.5 MG/2 ML NEB.SOLN INH SCH ×2 (08:49→19:25)
[2016-03-31] MEDS ORDERED: Warfarin TAB(*) 6 MG PO SCH (17:00)
[2016-03-31 17:37] VITALS: BP 153/55
[2016-04-01] MEDS: Albuterol/Ipratropium NEB.SOL* Albuterol 2.5 MG/Ipratropium 0.5 MG 3 ML INH SCH (02:48)
--- NOTE | 2016-04-01 16:42 | DS ---
DISCHARGE SUMMARY: DATE OF ADMISSION: 03/29/16 DATE OF DISCHARGE: 03/31/16 PRIMARY CARE PROVIDER: Dr. Kamla Henry as well as Dr. Jeremiah Ruano. PRIMARY DIAGNOSIS: Hyperglycemia. SECONDARY DIAGNOSES: 1. Urinary tract infection. 2. Concern for presyncope. 3. History of coronary artery disease. 4. Diabetes. 5. Hypertension. 6. Depression. 7. Chronic obstructive pulmonary disease. 8. Obstructive sleep apnea. 9. History of tracheomalacia. 10. Hypoventilation syndrome. 11. History of seizures. 12. Cerebrovascular accident. DISCHARGE MEDICATIONS: 1. Insulin Lantus 50 units daily. 2. Albuterol nebulizer 2.5 mg inhaled every 4 hours as needed for shortness of breath or wheezing. 3. Lipitor mg daily. 4. Aspirin 81 mg daily. 5. Albuterol HFA 2 puffs inhaled every 4 hours as needed for shortness of breath or wheezing. 6. Lubricant eye drops 0.5% both eyes twice daily as needed. 7. Budesonide 0.5 mg inhaled twice daily. 8. Vitamin D 2000 units in the morning. 9. Clobetasol 0.05 ointment 1 application twice daily as needed for dry skin or pruritus. 10. Lasix 40 mg twice daily. 11. Finasteride 5 mg daily. 12. Nystatin 1 application topically twice daily as needed. 13. Multivitamin 1 tablet daily. 14. Zoloft 100 mg in the morning. 15. Senna 2 tabs twice daily as needed for constipation. 16. Dilantin 200 mg twice daily. 17. Coumadin 9 mg Thursday, Thursday, Thursday and 6 mg Thursday, , Thursday, and Thursday. 18. Guaifenesin 5 mg 4 times a day as needed for cough. 19. Trazodone 75 mg at bedtime. 20. Metformin 500 mg in the evening. 21. Keflex 500 mg 4 times a day until he completes his course. HISTORY OF PRESENT ILLNESS AND HOSPITAL COURSE: This is a 80-year-old man past medical history as outlined in the history of present illness on the day of admission, well known to our service, presented to the hospital with elevated blood sugar with blood sugar by serum elevated at 479 in the setting of recent medication changes. Apparently, the patient has Lantus increased from 32 to 50 units, but had the 50 units split to be twice daily. The patient misunderstood this and was only taking 25 units daily, ultimately resulting in hyperglycemia. In the emergency room, there was concern that he was either presyncopal or actually lost consciousness and the patient was admitted to the hospital for further observation. He was restarted on his home medication regimen of Lantus 50 units with much tighter blood glucose control. There was one episode while talking to the patient that this author witnessed, talking and then closed his eyes. He was easy to wake, just tapping on his hand and saying his name with complete resolution of conversation. No loss of memory, no confusion. This author's estimation, the patient did not have syncope nor seizure-like activity at this time. It was unclear if this episode was similar to what happened in the emergency room. There is some concern that the patient enjoys being in the hospital and that these episodes may be an attempt to facilitate admission to the hospital while in the emergency room. In either case, he had a transthoracic echocardiogram that did not indicate any change in his cardiac function although it does indicate severe aortic stenosis which he has been counseled to follow up with his pack room operator. Given that the patient's suspected near syncopal episode did not happen with exertion and in absence of chest pain, it is unlikely that his aortic stenosis was the etiology. The patient was recently diagnosed with urinary tract infection and presented to urgent care or to [facility] ED on the 3rd of this month. He was continued on antibiotics to complete the course at the time of this discharge. There were no complications on the patient's hospital stay. At followup, please; 1. The patient does follow up with his pack room operator for further management of his aortic stenosis. 2. Please continue to follow blood sugar. Adjust medication as needed. 3. No other specific labs or vitals that need followup. Reasons to return to the hospital including but not limited to worsening symptoms, shortness of breath, chest pain, loss of consciousness, near loss of consciousness, nausea, vomiting, lightheadedness, bleeding from any source, diarrhea, fever, chills, night sweats, inability to obtain or tolerate medications were discussed with the patient. He acknowledged understanding. TIME SPENT: Greater than 60 minutes were spent on the discharge of this patient , greater than half was spent [id number] with the patient. CC: Dr. Kamla Henry; Dr. Jeremiah Ruano* [id number]/[facility] #: [id number] [facility] HOSPITALGeorgina
== END 2016-03-31 19:35 | disposition home or self-care (01) | DRG 690 ==
LOC: ED 11:21 → MEDTELE 13:44 → OBSVTOIN 03-30 15:00
PROVIDERS: ADMIT Internal Medicine; ATTEND Internal Medicine
DX: N39.0 Urinary tract infection, site not specified (principal); J96.12 Chronic respiratory failure with hypercapnia; E11.65 Type 2 diabetes mellitus with hyperglycemia; I25.810 Atherosclerosis of coronary artery bypass graft(s) without angina pectoris; I11.9 Hypertensive heart disease without heart failure; E66.2 Morbid (severe) obesity with alveolar hypoventilation; Z68.41 Body mass index [BMI] 40.0-44.9, adult; J44.9 Chronic obstructive pulmonary disease, unspecified; G47.33 Obstructive sleep apnea (adult) (pediatric); G40.909 Epilepsy, unspecified, not intractable, without status epilepticus; I44.7 Left bundle-branch block, unspecified; J39.8 Other specified diseases of upper respiratory tract; F32.9 Major depressive disorder, single episode, unspecified; I35.0 Nonrheumatic aortic (valve) stenosis; I25.2 Old myocardial infarction; Z85.828 Personal history of other malignant neoplasm of skin; Z86.73 Personal history of transient ischemic attack (TIA), and cerebral infarction without residual deficits; Z79.84 Long term (current) use of oral hypoglycemic drugs; Z79.82 Long term (current) use of aspirin; Z79.4 Long term (current) use of insulin; Z79.899 Other long term (current) drug therapy; Z95.1 Presence of aortocoronary bypass graft; Z88.8 Allergy status to other drugs, medicaments and biological substances; Z91.041 Radiographic dye allergy status; Z82.49 Family history of ischemic heart disease and other diseases of the circulatory system; Z80.0 Family history of malignant neoplasm of digestive organs; Z99.81 Dependence on supplemental oxygen
CPT/HCPCS: 36415; 71010; 80048; 80053; 80185; 81003; 81015; 82550; 82803; 82947; 83605; 83735; 83880; 84484; 85025; 85610; 85730; 87086; 93005; 93306; 94640; 94660; 94760; A9270-GY; G0378; J1644

== ENCOUNTER 2016-10-02 11:59 | Observation (INO) | payer SELFPAY ==
[2016-10-02] MEDS ORDERED: Insulin REGULAR(*) 1 UNITS UNIT IV ONE (12:48)
[2016-10-02] MEDS ORDERED: NS 0.9% 1000 ML* 1,000 ML IV ONE (12:48)
--- NOTE | 2016-10-02 13:18 | RAD ---
HISTORY: Shortness of breath COMPARISONS: March 29, 2016 VIEWS:1: Single frontal portable view of the chest at 1:15 PM FINDINGS: LINES AND TUBES: None. CARDIOMEDIASTINAL SILHOUETTE: The cardiomediastinal silhouette is stable. PLEURA: The costophrenic angles are sharp. No pleural abnormalities are noted. LUNG PARENCHYMA: The lung volumes are low. The lungs are clear accounting for the phase of respiration. ABDOMEN: The upper abdomen is clear. There is no subphrenic gas. BONES AND SOFT TISSUES: The patient is status post median sternotomy. IMPRESSION: LOW LUNG VOLUMES.
[2016-10-02 13:33] LABS: PCO2 Arterial 41 mmHg (35-45)
[2016-10-02 13:41] LABS: Hematocrit 41 % (42-52); Hemoglobin 13.9 g/dl (14.0-18.0); Mean Corpuscular HGB Conc 34 g/dl (31-36); Mean Corpuscular Hemoglobin 30 pg (27-31); Mean Corpuscular Volume 87 fL (80-94); Mean Platelet Volume 8 um3 (7.4-10.4); Red Blood Count 4.65 10^6/ul (4.0-5.4); Red Cell Distribution Width 15 % (10.5-15); White Blood Count 7.4 10^3/ul (3.5-10.8)
[2016-10-02 14:04] LABS: Albumin 3.8 g/dL (3.2-5.2); BUN/Creatinine Ratio 23.4 (8-20); C Reactive Protein 5.55 mg/L (< 5.00); Calcium 9.2 mg/dL (8.6-10.3); EGFR African American 72.5 (>60); EGFR Non-African American 56.4 (>60); Globulin 3.3 g/dL (2-4); Potassium 3.8 mmol/L (3.5-5.0); Total Bilirubin 0.6 mg/dL (0.2-1.0); Total Protein 7.1 g/dL (6.4-8.9)
[2016-10-02 14:10] LABS: Troponin I 0.04 ng/mL (<0.04)
[2016-10-02] MEDS ORDERED: Insulin REGULAR(*) 1 UNITS UNIT IV PUSH ONE (15:56)
[2016-10-02] MEDS ORDERED: Ondansetron INJ* 2 MG/ML VIAL IV PRN (18:29)
[2016-10-02] MEDS ORDERED: Acetaminophen TAB* 325 MG PO PRN (18:29)
[2016-10-02] MEDS ORDERED: Dextrose 50% Syringe 50 ML* 25 GM/50 ML SYRINGE IV PUSH PRN (18:29)
[2016-10-02] MEDS ORDERED: HYDROcodone/ACETAMIN 5-325 MG* 1 TAB PO PRN (18:31)
[2016-10-02] MEDS ORDERED: Albuterol 2.5 MG/3 ML NEB.SOL* (0.083%) INH PRN (18:31)
[2016-10-02] MEDS ORDERED: Warfarin TAB(*) 6 MG PO SCH ×2 (19:00)
[2016-10-02] MEDS: Furosemide TAB* 40 MG PO SCH (20:03)
[2016-10-02] MEDS: Senna TAB PO SCH (20:03)
[2016-10-02] MEDS: Budesonide NEB* 0.5 MG/2 ML NEB.SOLN INH SCH (20:31)
[2016-10-02] MEDS: Insulin GLARGINE(*) 1 UNITS UNIT SUBCUT SCH (20:35)
[2016-10-02] MEDS ORDERED: Heparin VIAL(*) 5000 UNITS/ML VIAL (FIVE THOUSAND) SUBCUT SCH (22:00)
--- NOTE | 2016-10-03 01:23 | HP ---
CC: LILO Salazar * HISTORY AND PHYSICAL: DATE OF ADMISSION: 10/02/16 PRIMARY CARE PROVIDER: LILO Salazar ATTENDING PHYSICIAN WHILE IN THE HOSPITAL: Rich Rosales MD * (report dictated by Alex Alegria NP). CHIEF COMPLAINT: 1. Elevated blood sugar. 2. Shortness of breath. 3. Chest pain. HISTORY OF PRESENT ILLNESS: Mr. Escamilla is a 80-year-old male patient with pretty extensive past medical history, has a history of a CAD, [place], diabetes, hypertension, depression, COPD, TAMICA, tracheomalacia, obesity, hypoventilation syndrome, seizure, CVA, BPH, and skin cancer. He comes into the ER today stating that the last couple of days, he has been more short of breath, progressively getting worse. He denies any orthopnea. He also has noted that this morning he had some chest pain on the left side, it went down his arm, lasted a minute or two and then went away. He has not been having any exertional chest pain. He was most concerned though what brought him into the hospital today because his sugar was in the 500. He called the [facility]. They deferred him to the ER. He states he has been taking his insulin as prescribed. There was no more chest pain now. No shortness of breath now. He states he is actually feeling a little bit better. He says his biggest complaint now is that he is hungry. He states that he has not been sick recently. There has been no cough. No rhinorrhea. No sore throat. No thyroid enlargement. He denies having any abdominal pain. He had one episode of vomiting 2 days ago. It went away. He only had one episode. There has been no diarrhea and again no abdominal discomfort. He came in. He was evaluated in the ED. They checked his troponins, it was noted to be 0.04, then 0.05. Because of his risk factors, we were asked to evaluate for admission. PAST MEDICAL HISTORY: Significant for: 1. CAD. 2. AZ. 3. Diabetes. 4. Hypertension. 5. Depression. 6. COPD. 7. TAMICA. 8. Tracheomalacia. 9. Obesity. 10. Hypoventilation syndrome. 11. Seizures. 12. CVA. 13. BPH. 14. Skin cancer. PAST SURGICAL HISTORY: 1. He has had CABG. 2. Tracheostomy. 3. Hernia repair. 4. He has also had a valve replacement. HOME MEDICATIONS: According to the list that we are able to obtain from the [facility] includes: 1. Clobestasol 1 application topically b.i.d. as needed. 2. Warfarin 9 mg on Thursday, Thursday, and Thursday. 3. Lubricant eye drops 0.5% both eyes b.i.d. as needed. 4. Pulmicort 0.5 mg inhaled b.i.d. 5. Ventolin 2.5 mg inhaled every 4 hours as needed. 6. Warfarin 6 mg p.o. every Thursday, Thursday, , and Thursday. 7. Zoloft 100 mg daily. 8. Senna 17.2 mg p.o. b.i.d. 9. Nystatin 1 application topically t.i.d. as needed. 10. Monistat 1 application topically b.i.d. as needed. 11. Metformin 500 mg daily with meals. 12. Lantus 25 units subcu b.i.d. 13. Robitussin 5 mg every 4 hours as needed. 14. [place] 1 tablet everyday as needed. 15. Lasix 40 mg p.o. b.i.d. 16. Proscar 5 mg p.o. daily. 17. Vitamin D 2000 units p.o. daily. 18. Keflex 500 mg p.o. 4 times a day. 19. Lipitor 10 mg daily. 20. Aspirin 81 mg daily. 21. Ventolin 2 puffs inhaled every 4 hours as needed. 22. Tylenol 650 mg every 4 hours as needed. ALLERGIES TO MEDICATIONS: Include NITRO, LEVAQUIN, and IV DYE. FAMILY HISTORY: His mother had a heart disease and uterine cancer. Father had a history of rectal cancer. SOCIAL HISTORY: He does not smoke. He does not drink. His surrogate decision maker is his friend, Anabella. REVIEW OF SYSTEMS: There is no documented fever. He denied having any significant weight change. There was no double vision. He denies having any ear discharge. There was no rhinorrhea. No sore throat. No thyroid enlargement. Denied having any chest pain currently, there was some from HPI. There is no abdominal pain. One episode with nausea and vomiting. No dysuria. No frequency. There was no seizure. No loss of conscious. No pruritus and no skin ulcerations. Review of 14 systems completed, all others negative. PHYSICAL EXAMINATION GENERAL: At this time, Mr. Escamilla is a 80-year-old male patient. He is morbidly obese. He is chronically ill appearing, he is sitting in the ER stretcher. VITAL SIGNS: Blood pressure 123/58, pulse 68, respirations 20, O2 saturation 98 % on 4 L, temperature 98.3. HEENT: Head atraumatic and normocephalic. Eyes: EOMs are intact. Sclerae anicteric, not pale. Throat: Oral mucosa appears to be dry. No oropharyngeal erythema. NECK: Supple. LUNGS: Clear to auscultation bilaterally. No wheezes, rales or rhonchi. HEART: Sounds S1 and S2. Regular rate and rhythm. No murmurs, rubs, or gallops. ABDOMEN: Soft, flat, nontender. Bowel sounds present. EXTREMITIES: Pulses 2+ throughout. Moves all 4 extremities with 5/5 strength. NEUROLOGIC: He is awake, alert, and oriented x3. No gross focal deficits. Speech is clear. SKIN: Grossly intact. LABORATORY DATA/DIAGNOSTIC DATA: Labs today revealed a WBC of 7.4, RBC of 4.65 , hemoglobin of 13.9, hematocrit of 41, platelet count of 143. His blood gas revealed a pH of 7.40, pCO2 of 41, pO2 of 101, bicarb of 25. His sodium was 133 , potassium was 3.8, chloride of 99, bicarbonate 24, BUN 29, creatinine 1.24, which is right near his baseline. The glucose was 464, lactic 2.5, total bilirubin 0.6. Calcium 9.2. AST 20, ALT 28, alk phos 121. Troponin 0.04, repeat was 0.05. CRP was 5.5. BNP 134, albumin 3.8. The chest x-ray shows low lung volumes. EKG shows a left bundle-branch block, rate of 62, normal sinus rhythm, no acute changes were noted from previous EKG. Old medical records were reviewed. ASSESSMENT AND PLAN: Mr. Escamilla is a 80-year-old male patient coming into the ER today with complaints of chest discomfort, elevated blood sugar and shortness of breath. On evaluation in the ED, there was concern because his troponin was mildly elevated. He will be admitted under observation status for: 1. Chest pain. At this point, he has multiple risk factors for coronary artery disease, acute coronary syndrome. Symptoms did last minutes today and was one episode. His troponins are mildly elevated, but they have been like this. I am going to trend these. I did order a stress test for tomorrow. Get serial EKG. Chest a lipid panel and check an A1c in morning. He is on a statin. We will continue that and his aspirin, we will continue that for now. Could consider beta- placido, but I am going to hold for the time being. 2. Diabetes, not well controlled. We will continue his Lantus, may need to increase this. We will monitor. We will check an A1c. Continue lispro sliding scale. 3. History of coronary artery disease and myocardial infarction. Again, continue his aspirin and statin for the time being and we will consider beta- placido if needed. 4. Hypertension. Continue current meds. 5. Depression. Supportive care will be continued and continue his meds. 6. Chronic obstructive pulmonary disease. Continue Pulmicort nebs. 7. Obstructive sleep apnea with hypoventilation syndrome secondary to obesity. I did order BiPAP. 8. Tracheomalacia, we will monitor, not an active issue currently. 9. Seizure, I will put on seizure precautions. 10. History of cerebrovascular accident. Continue with secondary prevention. He is on aspirin and warfarin. 11. Benign prostatic hypertrophy. Continue meds as prescribed. 12. History of skin cancer. Follow with his primary. 13. DVT prophylaxis, INR is pending. For the time being, we will continue his warfarin. 14. DVT prophylaxis, again continue his warfarin. 15. Fluids, electrolytes, and nutrition. He can have a heart-healthy diet, then he will be n.p.o. after midnight. 16. Code status. He is a full code. TIME SPENT: Time spent on the admission was approximately 60 minutes, greater than half the time was spent [id number] with the patient obtaining my history and physical, other half time spent going over the plan of care with the patient and implementing the plan of care. I did discuss the plan of care with my attending, Dr. Rosales, he is in agreement. ALEX ALEGRIA, LIO [id number]/[facility] #: [id number] [place]
[2016-10-03 05:06] LABS: Hematocrit 38 % (42-52); Hemoglobin 13.2 g/dl (14.0-18.0); Mean Corpuscular HGB Conc 35 g/dl (31-36); Mean Corpuscular Hemoglobin 30 pg (27-31); Mean Corpuscular Volume 87 fL (80-94); Mean Platelet Volume 8 um3 (7.4-10.4); Red Blood Count 4.43 10^6/ul (4.0-5.4); Red Cell Distribution Width 14 % (10.5-15); White Blood Count 7.4 10^3/ul (3.5-10.8)
[2016-10-03 05:30] LABS: BUN/Creatinine Ratio 23.1 (8-20); Calcium 8.9 mg/dL (8.6-10.3); EGFR African American 68.7 (>60); EGFR Non-African American 53.4 (>60); HDL Cholesterol 28.5 mg/dL; Potassium 3.9 mmol/L (3.5-5.0)
[2016-10-03] MEDS: Insulin GLARGINE(*) 1 UNITS UNIT SUBCUT SCH (07:52)
[2016-10-03] MEDS: Senna TAB PO SCH (07:53)
[2016-10-03] MEDS: Furosemide TAB* 40 MG PO SCH (07:54)
[2016-10-03] MEDS: Insulin LISPRO* 1 UNITS UNIT SUBCUT SCH ×2 (08:33→12:07)
--- NOTE | 2016-10-03 08:59 | ED ---
Darryl Mack Alfonso, scribed for Jae Morataya MD on 10/02/16 at 1347 . Shortness of Breath - HPI Summary HPI Summary: This patient is a 80 year old M BIBA to [facility] with a chief complaint of SOB worse since yesterday. Pt increased his nasal cannula home O2 to 4L today. Pt rates the pain 4/10 in severity. Symptoms aggravated and alleviated by nothing. Pt reports high blood sugar, CP, palpitations, nausea, and vomiting. Pt denies diaphoresis, and calf swelling. PMHx of diabetes. - History of Current Complaint Chief Complaint: EDShortnessOfBreath Time Seen by Provider: 10/02/16 12:42 Hx Obtained From: Patient Onset/Duration: Sudden Onset, Lasting Days - yesterday, Worse Since - Yesterday Timing: Constant Current Severity: Moderate Aggrevating Factors: Nothing Alleviating Factors: Nothing Associated Signs & Symptoms: Chest Pain Unrelated to Cough - Allergy/Home Medications Allergies/Adverse Reactions: Allergies Allergy/AdvReac Type Severity Reaction Status Date / Time Nitroglycerin Allergy Severe Anaphylactic Verified 03/29/16 11:31 Shock Levofloxacin [From Levaquin] Allergy Intermediate Itching Verified 03/29/16 11: 31 Iodinated Contrast Media AdvReac Severe Altered Verified 03/29/16 11:31 [IV CONTRAST DYE] Mental Status Home Medications: Home Medications Acetaminophen TAB* [Tylenol TAB*] 650 mg PO Q4H PRN 10/02/16 [History Confirmed 10/02/16] HYDROcodone/ACETAMIN 5-325 MG* [[place] 5-325 TAB*] 1 tab PO DAILY PRN 10/02/16 [ History Confirmed 10/02/16] Insulin GLARGINE(*) [Lantus(*)] 25 units SUBCUT BID 10/02/16 [History Confirmed 10/02/16] Miconazole TOPICAL CREAM 2%* [Monistat 2%*] 1 applic TOPICAL BID 10/02/16 [ History Confirmed 10/02/16] Sennosides [Senokot] 17.2 mg PO BID 10/02/16 [History Confirmed 10/02/16] metFORMIN* [Glucophage 500 MG TAB *] 500 mg PO DAILY WITH MEAL 10/02/16 [ History Confirmed 10/02/16] PMH/Surg Hx/FS Hx/Imm Hx Endocrine/Hematology History: Reports: Hx Anticoagulant Therapy, Hx Blood Transfusions, Hx Diabetes, Hx Anemia Denies: Hx Blood Disorders, Hx Bone Marrow Disease, Hx Systemic Lupus Erythematosus, Hx Sickle Cell Disease, Hx Thyroid Disease, Hx Unexplained Bleeding Cardiovascular History: Reports: Hx Angina, Hx Angioplasty, Hx Cardiac Arrest - 03/05/14, Hx Congestive Heart Failure, Hx Coronary Artery Disease, Hx Deep Vein Thrombosis, Hx Hypercholesterolemia, Hx Hypertension, Hx Myocardial Infarction, Hx Syncope Denies: Hx Aneurysm, Hx Auto Implanted Cardiovert Defib, Hx Cardiomegaly, Hx Congenital Heart Disease, Hx Hypotension, Hx Pacemaker/ICD, Hx Peripheral Vascular Disease, Hx Rheumatic Fever, Hx Valvular Heart Disease, Other Cardiovascular Problems/Disorders Respiratory History: Reports: Hx Chronic Bronchitis, Hx Chronic Obstructive Pulmonary Disease (COPD), Hx Pleural Effusion, Hx Pneumonia, Hx Pulmonary Edema , Hx Sleep Apnea - CPAP, Other Respiratory Problems/Disorders - Bronchitis Denies: Hx Asthma, Hx Cystic Fibrosis, Hx Lung Cancer, Hx Pulmonary Embolism , Hx Seasonal Allergies GI History: Reports: Hx Gastroesophageal Reflux Disease, Hx Hiatal Hernia, Hx Obstructive Bowel Denies: Hx Cirrhosis, Hx Crohn's Disease, Hx Diverticulosis, Hx Gall Bladder Disease, Hx Gastrointestinal Bleed, Hx Irritable Bowel, Hx Jaundice, Hx Ileostomy, Hx Pyloric Stenosis, Hx Ulcer, Other GI Disorders History: Reports: Hx Benign Prostatic Hyperplasia, Hx Kidney Infection Denies: Hx Acute Renal Failure, Hx Chronic Renal Failure, Hx Dialysis, Hx Kidney Stones, Other Problems/Disorders Musculoskeletal History: Reports: Hx Arthritis, Hx Back Problems, Other Musculoskeletal History - BLE weakness hx CVA, uses scooter at home Denies: Hx Bursitis, Hx Congenital Bone Abnormalities, Hx Fibromyalgia, Hx Gout, Hx Orthopedic Injury, Hx Osteoporosis, Hx Scoliosis, Hx Tendonitis Sensory History: Reports: Hx Cataracts - due for sx, Hx Contacts or Glasses, Hx Vision Problem, Hx Hearing Problem Denies: Hx Eye Injury, Hx Eye Prosthesis, Hx Glaucoma, Hx Legally Blind, Hx Macular Degeneration, Hx Deafness, Hx Hearing Aid, Other Sensory Impairments Opthamlomology History: Reports: Hx Cataracts - due for sx, Hx Contacts or Glasses, Hx Vision Problem Denies: Hx Eye Injury, Hx Eye Prosthesis, Hx Glaucoma, Hx Legally Blind, Hx Macular Degeneration, Other Sensory Impairments Neurological History: Reports: Hx Seizures, Hx Transient Ischemic Attacks (TIA) Denies: Hx Dementia, Hx Developmental Delay, Hx Headaches, Hx Migraine, Hx Nerve Disease, Hx Spinal Cord Injury, Other Neuro Impairments/Disorders Psychiatric History: Reports: Hx Anxiety, Hx Depression - He thinks about the of his and son often., Hx Post Traumatic Stress Disorder, Other Psychiatric Issues/Disorders - Had one episode of emotional shock, but no depression etc since. Denies: Hx Attention Deficit Hyperactivity Disorder, Hx Eating Disorder, Hx Panic Disorder, Hx Inpatient Treatment, Hx Community Mental Health Tx, Hx Schizophrenia, Hx Bipolar Disorder, Hx Suicide Attempt, Hx of Violent Episodes Against Others, Hx Substance Abuse - Cancer History Cancer Type, Location and Year: Skin cancer on scalp - Surgical History Surgery Procedure, Year, and Place: Bypass 2008. hernia 1957. left shoulder sx in [place] in 1965. CABG. 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 Denies: Hx Clostridium Difficile, Hx Hepatitis, Hx Human Immunodeficiency Virus (HIV), Hx Shingles, Hx Tuberculosis, Hx Known/Suspected VRE, History Other Infectious Disease, Traveled Outside the [place] in Last 30 Days - Family History Known Family History: Positive: Cardiac Disease, Other - uterine CA, colon CA - Social History Alcohol Use: None Hx Substance Use: No Substance Use Type: Reports: None Hx Tobacco Use: No Smoking Status (MU): Never Smoked Tobacco Have You Smoked in the Last Year: No Review of Systems Negative: Skin Diaphoresis Positive: Palpitations, Chest Pain, Other - Positive high blood sugar Positive: Shortness Of Breath Positive: Vomiting, Nausea Positive: Other - Negative calf swelling All Other Systems Reviewed And Are Negative: Yes Physical Exam - Summary Physical Exam Summary: VITAL SIGNS: Reviewed. GENERAL: Patient is an elderly male who is lying in the stretcher. Patient has SOB, however he is able to speak in full sentences. HEAD AND FACE: Normocephalic Mouth dry EYES: PERRLA, EOMI x 2. EARS: Hearing grossly intact. MOUTH: Oropharynx within normal limits. NECK: Supple, trachea is midline, no adenopathy, no JVD, no carotid bruit. CHEST: Symmetric, no tenderness at palpation LUNGS: Clear to auscultation bilaterally. No wheezing or crackles. CVS: Regular rate and rhythm, S1 and S2 present, no murmurs or gallops appreciated. ABDOMEN: Soft, non-tender. Bowel sounds are normal. No abdominal abnormal pulsations. Possible distension. EXTREMITIES: Full ROM in all major joints, no edema, no cyanosis or clubbing. NEURO: Alert and oriented x 3. No acute neurological deficits. Speech is normal and follows commands. SKIN: Dry and warm Triage Information Reviewed: Yes Vital Signs On Initial Exam: Initial Vitals Temp Pulse Resp BP Pulse Ox 98.3 F 70 15 136/72 97 10/02/16 12:30 10/02/16 12:30 10/02/16 12:30 10/02/16 12:30 10/02/16 12:30 Vital Signs Reviewed: Yes - [place] Coma Scale Coma Scale Total: 15 Diagnostics - Vital Signs Vital Signs Temp Pulse Resp BP Pulse Ox 10/02/16 13:30 67 20 134/66 100 10/02/16 13:18 76 16 99 10/02/16 13:00 79 18 153/96 99 10/02/16 12:32 15 10/02/16 12:31 136/72 10/02/16 12:30 98.3 F 70 15 136/72 97 - Laboratory Lab Results: Lab Results 10/02/16 Range/Units 13:00 Patient Temperature Not Reportable ABG pH 7.40 (7.35-7.45) ABG pCO2 41 (35-45) mmHg ABG pO2 101 H (80-100) mmHg ABG HCO3 25.3 (19-31) mmol/L ABG O2 Saturation 98.6 H (95-98) % ABG Base Excess 0.5 (-2.0-2.0) Respiration Rate Not Reportable O2 Delivery Device Nc Ventilator Type Not Reportable Vent Mode Not Reportable FiO2 Not Reportable Inspiratory Time Not Reportable PEEP Not Reportable Pressure Support Not Reportable Pressure Control Not Reportable EPAP Not Reportable IPAP Not Reportable BiPAP Not Reportable Result Diagrams: 10/03/16 04:43 10/03/16 04:43 Lab Statement: Any lab studies that have been ordered have been reviewed, and results considered in the medical decision making process. - Radiology CXR Radiology Interpretation Completed By: Radiologist - LOW LUNG VOLUMES. - EKG 1353 Cardiac Rate: NL EKG Rhythm: Sinus Rhythm - BPM 62 EKG Interpretation: LBBB. EKG Comparison: No Significant Change - From 03/29/16 Course/Dx - Course Course Of Treatment: This patient is a 80 year old M BIBA to [facility] with a chief complaint of SOB worse since yesterday. Pt increased his nasal cannula home O2 to 4L today. Pt rates the pain 4/10 in severity. Symptoms aggravated and alleviated by nothing. Pt reports high blood sugar, CP, palpitations, nausea, and vomiting. Pt denies diaphoresis, and calf swelling. PMHx of diabetes. Assessment/Plan: Test results WNL expect for slight anemia. Has chronic renal failure with a BUN of 29 and creatinine of 1.24. Hyperglycemia with glucose of 464. Troponin of 0.04. In the ED course patient was given IV fluids and insulin for his hyperglycemia. CXR reveals LOW LUNG VOLUMES. EKG reveals LBBB and NSR. Patient was taking warfarin so I held the aspirin. Patient requested BiPAP because he uses it at home. His SOB improved. Troponin is slightly elevated; therefore I discussed the case with Dr. Rosales who accepted the patient for admission. Pt is hemodynamically stable and A&Ox3. - Diagnoses Differential Diagnosis/HQI/PQRI: Positive: CHF, Chest Wall Pain, CO, Unstable Angina Provider Diagnoses: Increase troponin r/o ACS, Hyperglycemia, Chest pain - Physician Notifications Discussed Care of Patient With: Rich Rosales Time Discussed With Above Provider: 17:58 Instructed by Provider To: Other - Dr. Rosales (hospitalist) agrees to admit Discharge - Discharge Plan Condition: Stable Disposition: ADMITTED TO [facility] documentation as recorded by the Darryl couch Alfonso accurately reflects the service I personally performed and the decisions made by me, Jae Morataya MD.
[2016-10-03] MEDS ORDERED: Aspirin EC Low Dose* 81 MG TAB.EC PO SCH (09:00)
[2016-10-03] MEDS ORDERED: Atorvastatin* 20 MG TAB PO SCH (09:00)
[2016-10-03] MEDS ORDERED: Sertraline* 100 MG TAB PO SCH (09:00)
[2016-10-03] MEDS ORDERED: Finasteride TAB* 5 MG PO SCH (09:00)
[2016-10-03] MEDS: Budesonide NEB* 0.5 MG/2 ML NEB.SOLN INH SCH ×2 (09:18→10:52)
[2016-10-03] MEDS ORDERED: Aminophylline IV* 25 MG/ML 10 ML VIAL ONE (12:07)
[2016-10-03] MEDS ORDERED: Regadenoson* 0.4 MG/5 ML SYRINGE ONE (12:07)
--- NOTE | 2016-10-03 14:01 | RAD ---
Edited for charges. Indication: Chest pain. Myocardial perfusion scan was performed protocol. Rest myocardial perfusion was performed after intravenous injection of 10.6 mCi of technetium 99 and tetrofosmin. Pharmacological stress was applied and 25.5 mCi of technetium 99m tetrofosmin was injected for the stress portion of study. There is homogeneous distribution of the radiotracer throughout the left ventricle. There is a area of photopenia in the inferior wall which is felt to represent diaphragmatic attenuation which corrects on the attenuation corrected images. The ejection fraction at stress is 42%. Evaluation of wall motion demonstrates IMPRESSION: No definite fixed or reversible perfusion defect. Likely artifact is noted. Decreased ejection fraction of 42%. ASSESSMENT: Intermediate risk Based on imaging criteria from ACC/AHA 2002 Guideline Update for the Management of Patients With Chronic Stable Angina Table 23. Noninvasive Risk Stratification. MTDD
--- NOTE | 2016-10-03 14:09 | DCNOTE ---
Patient seen this morning. Says he is feeling "great". Denies any further chest pain or shortness of breath. Says his BGs at home vary but are usually in the 200-400 range. On exam, RRR, s1 and s2 present, no m/g/r, lungs with no wheezing, prolonged expiration. No LE edema. Stress test with no new or concerning findings. Will discharge home with increased Lantus dosing, [facility].
[2016-10-03 14:47] VITALS: BP 141/72
[2016-10-03] MEDS ORDERED: Warfarin TAB(*) 3 MG PO SCH (17:00)
--- NOTE | 2016-10-04 12:07 | DS ---
CC: Kamla Henry NP DISCHARGE SUMMARY: DATE OF ADMISSION: 10/02/16 DATE OF DISCHARGE: 10/03/16 PRIMARY CARE PROVIDER: Kamla Henry NP PRINCIPAL DISCHARGE DIAGNOSES: 1. Chest pain. 2. Shortness of breath. 3. Hyperglycemia. SECONDARY DIAGNOSES: 1. Coronary artery disease. 2. Myocardial infarction. 3. Diabetes. 4. Hypertension. 5. Depression. 6. Chronic obstructive pulmonary disease. 7. Obstructive sleep apnea. 8. Tracheomalacia. 9. Obesity hypoventilation syndrome, on BiPAP while sleeping. 10. Seizure disorder. 11. Cerebrovascular accident. 12. Benign prostatic hyperplasia. DISCHARGE MEDICATION REGIMEN: 1. Lantus which has been increased to 30 units subcutaneous twice daily. 2. Tylenol 650 mg by mouth every 4 hours as needed for pain. 3. Albuterol 2 puffs inhaled every 4 hours as needed for shortness of breath or wheezing. 4. Aspirin 81 mg by mouth daily. 5. Atorvastatin 10 mg by mouth daily. 6. Keflex 500 mg by mouth which the patient was taking prior to admission. 7. Vitamin D 2000 units by mouth daily. 8. Finasteride 5 mg by mouth daily. 9. Lasix 40 mg by mouth 2 times daily. 10. Hydrocodone/acetaminophen 1 tablet by mouth daily as needed for pain. 11. Guaifenesin 5 mg by mouth every 4 hours as needed for cough. 12. Metformin 500 mg by mouth daily. 13. Miconazole 1 application topical 3 times daily. 14. Nystatin 1 application topical 3 times daily as needed for itching. 15. Senna 17.2 mg by mouth 2 times daily. 16. Sertraline 100 mg by mouth daily. 17. Warfarin 6 mg Thursday, Thursday, , Thursday; 9 mg Thursday, Thursday, Thursday. The patient is to skip tonight's dose and resume tomorrow on 10/04/16. 18. Budesonide 0.5 mg inhaled 2 times daily. 19. Lubricant eye drops 0.5% both eyes twice daily as needed for dry eyes. 20. Clobetasol 1 application topical 3 times daily as needed for itching. STUDIES DONE DURING HOSPITALIZATION: Chest x-ray, impression: Low lung volumes. Cardiac stress test, impression: No definite fixed or reversible perfusion defect, likely artifact is noted. Decreased ejection fraction of 42%. HISTORY OF PRESENT ILLNESS AND HOSPITAL SUMMARY: Please see the full history and physical by Alex Alegria NP, for full details. Briefly, Mr. Escamilla is a 80 -year- old male with extensive past medical history as above, who presented to the hospital with some shortness of breath, brief episode of chest pain, and most concerning to him is hyperglycemia. He states his sugars have recently been in the 400 to 500s at home. He reports that he called the [facility] and they told him to come to the emergency department. Here in the hospital, his infectious workup was largely negative. Chest x-ray was normal. Troponin was checked which initially was 0.04 and on repeat, it increased to 0.05. The patient's blood sugar on admission was also elevated at 464. He was monitored overnight. Troponins were trended and did not increase any further. No significant events on tele. The patient underwent a stress test as above; it was fairly unremarkable. The patient does likely need better glycemic control. His insulin was increased as above to Lantus 30 units twice daily on discharge. He should follow up closely with the [facility]. Also, on the day of discharge, his INR was 3.29. He was instructed to hold his warfarin tonight on 10/03/16 and resume it tomorrow evening. TIME SPENT: Total time spent on this discharge 35 minutes. This is a summary of the hospitalization. Please see the full medical record for further details. [id number] #: [id number] MTDD
[2016-10-04] MEDS ORDERED: Warfarin TAB(*) 6 MG PO SCH (17:00)
== END 2016-10-03 16:30 | disposition home or self-care (01) ==
LOC: ED 11:59 → MEDTELE 18:05
PROVIDERS: ADMIT Hospitalist; ATTEND Hospitalist
DX: R07.9 Chest pain, unspecified (principal); R06.02 Shortness of breath; E11.65 Type 2 diabetes mellitus with hyperglycemia; I25.10 Atherosclerotic heart disease of native coronary artery without angina pectoris; I25.2 Old myocardial infarction; I10 Essential (primary) hypertension; J44.9 Chronic obstructive pulmonary disease, unspecified; G47.33 Obstructive sleep apnea (adult) (pediatric); E66.9 Obesity, unspecified; J39.8 Other specified diseases of upper respiratory tract; G40.909 Epilepsy, unspecified, not intractable, without status epilepticus; N40.0 Benign prostatic hyperplasia without lower urinary tract symptoms; I44.7 Left bundle-branch block, unspecified; Z86.73 Personal history of transient ischemic attack (TIA), and cerebral infarction without residual deficits; Z79.899 Other long term (current) drug therapy; Z79.82 Long term (current) use of aspirin; Z79.01 Long term (current) use of anticoagulants; Z79.4 Long term (current) use of insulin; Z88.8 Allergy status to other drugs, medicaments and biological substances; Z88.1 Allergy status to other antibiotic agents
CPT/HCPCS: 36415; 36600; 71010; 78452; 80048; 80053; 80061; 82550; 82803; 83036; 83605; 83880; 84484; 85025; 85610; 86140; 93005; 93017; 94640; 94660; 94760; 96360; 96361; 99284; A9270-GY; A9502; G0378; J0280; J2785

== ENCOUNTER 2016-10-13 13:26 | Emergency (ER) | payer SELFPAY ==
[2016-10-13] MEDS ORDERED: Albuterol/Ipratropium NEB.SOL* Albuterol 2.5 MG/Ipratropium 0.5 MG 3 ML INH ONE (13:52)
[2016-10-13 14:13] LABS: FIO2 5
--- NOTE | 2016-10-13 14:14 | RAD ---
HISTORY: Chest pain COMPARISONS: October 02, 2016 VIEWS:1: Single frontal portable view of the chest at 2:10 PM FINDINGS: LINES AND TUBES: None. CARDIOMEDIASTINAL SILHOUETTE: The cardiomediastinal silhouette is normal for portable technique. PLEURA: The costophrenic angles are sharp. No pleural abnormalities are noted. LUNG PARENCHYMA: The lung volumes are low. The lungs are clear accounting for the phase of respiration. ABDOMEN: The upper abdomen is clear. There is no subphrenic gas. BONES AND SOFT TISSUES: The patient is status post median sternotomy. IMPRESSION: LOW LUNG VOLUMES. NO ACTIVE CARDIOPULMONARY DISEASE.
[2016-10-13 14:16] LABS: PCO2 Arterial 41 mmHg (35-45)
[2016-10-13 14:55] LABS: Hematocrit 40 % (42-52); Hemoglobin 13.8 g/dl (14.0-18.0); Mean Corpuscular HGB Conc 34 g/dl (31-36); Mean Corpuscular Hemoglobin 30 pg (27-31); Mean Corpuscular Volume 86 fL (80-94); Mean Platelet Volume 8 um3 (7.4-10.4); Red Blood Count 4.67 10^6/ul (4.0-5.4); Red Cell Distribution Width 14 % (10.5-15); White Blood Count 8.8 10^3/ul (3.5-10.8)
[2016-10-13 15:16] LABS: Troponin I 0.05 ng/mL (<0.04)
[2016-10-13 15:19] LABS: Albumin 3.6 g/dL (3.2-5.2); BUN/Creatinine Ratio 24.3 (8-20); Calcium 8.6 mg/dL (8.6-10.3); EGFR Non-African American 47.4 (>60); Globulin 3.5 g/dL (2-4); Potassium 4.4 mmol/L (3.5-5.0); Total Bilirubin 0.6 mg/dL (0.2-1.0); Total Protein 7.1 g/dL (6.4-8.9)
--- NOTE | 2016-10-13 15:56 | ED ---
IEitan,James, scribed for Kayla Hernandez MD on 10/13/16 at 1356 . HPI Chest Pain - HPI Summary HPI Summary: This 80 y/o male presents to ED for intermittent CP since 0900 AM this morning. CP is located midsternal and lasted about seconds. Positive SOB, nonproductive cough, dysuria, or trouble with urination. PMHx includes DM, COPD, CVA, MS x3 with recurrent chest pain. Pt is oxygen dependent at home with 4 L. Primary care involves provider at [facility]. Pt lives with roommate. FHx is positive for DM. - History of Current Complaint Chief Complaint: EDChestPainROMI Time Seen by Provider: 10/13/16 13:38 Hx Obtained From: Patient, Medical Records Timing: Intermittent, Lasting Seconds Pain Intensity: 7 Pain Scale Used: 0-10 Numeric Chest Pain Location: Mid Sternal Chest Pain Radiates: No Character: Dull/Aching Aggravating Factor(s): Nothing Alleviating Factor(s): Spontaneous Resolution Associated Signs and Symptoms: Positive: Chest Pain, Shortness of Breath. Negative: Fever - Additional Pertinent History Primary Care Physician: [id number] - Allergy/Home Medications Allergies/Adverse Reactions: Allergies Allergy/AdvReac Type Severity Reaction Status Date / Time Nitroglycerin Allergy Severe Anaphylactic Verified 10/13/16 13:38 Shock Levofloxacin [From Levaquin] Allergy Intermediate Itching Verified 10/13/16 13: 38 Iodinated Contrast Media AdvReac Severe Altered Verified 10/13/16 13:38 [IV CONTRAST DYE] Mental Status PMH/Surg Hx/FS Hx/Imm Hx Endocrine/Hematology History: Reports: Hx Anticoagulant Therapy, Hx Blood Transfusions, Hx Diabetes, Hx Anemia Denies: Hx Blood Disorders, Hx Bone Marrow Disease, Hx Systemic Lupus Erythematosus, Hx Sickle Cell Disease, Hx Thyroid Disease, Hx Unexplained Bleeding Cardiovascular History: Reports: Hx Angina, Hx Angioplasty, Hx Cardiac Arrest - 03/05/14, Hx Congestive Heart Failure, Hx Coronary Artery Disease, Hx Deep Vein Thrombosis, Hx Hypercholesterolemia, Hx Hypertension, Hx Myocardial Infarction, Hx Syncope, Hx Valvular Heart Disease Denies: Hx Aneurysm, Hx Auto Implanted Cardiovert Defib, Hx Cardiomegaly, Hx Congenital Heart Disease, Hx Hypotension, Hx Pacemaker/ICD, Hx Peripheral Vascular Disease, Hx Rheumatic Fever, Other Cardiovascular Problems/Disorders Respiratory History: Reports: Hx Chronic Bronchitis, Hx Chronic Obstructive Pulmonary Disease (COPD), Hx Pleural Effusion, Hx Pneumonia, Hx Pulmonary Edema , Hx Sleep Apnea - CPAP, Other Respiratory Problems/Disorders - Bronchitis Denies: Hx Asthma, Hx Cystic Fibrosis, Hx Lung Cancer, Hx Pulmonary Embolism , Hx Seasonal Allergies GI History: Reports: Hx Gastroesophageal Reflux Disease, Hx Hiatal Hernia, Hx Obstructive Bowel Denies: Hx Cirrhosis, Hx Crohn's Disease, Hx Diverticulosis, Hx Gall Bladder Disease, Hx Gastrointestinal Bleed, Hx Irritable Bowel, Hx Jaundice, Hx Ileostomy, Hx Pyloric Stenosis, Hx Ulcer, Other GI Disorders History: Reports: Hx Benign Prostatic Hyperplasia, Hx Kidney Infection Denies: Hx Acute Renal Failure, Hx Chronic Renal Failure, Hx Dialysis, Hx Kidney Stones, Other Problems/Disorders Musculoskeletal History: Reports: Hx Arthritis, Hx Back Problems, Other Musculoskeletal History - BLE weakness hx CVA, uses scooter at home Denies: Hx Bursitis, Hx Congenital Bone Abnormalities, Hx Fibromyalgia, Hx Gout, Hx Orthopedic Injury, Hx Osteoporosis, Hx Scoliosis, Hx Tendonitis Sensory History: Reports: Hx Cataracts - due for sx, Hx Contacts or Glasses, Hx Vision Problem, Hx Hearing Problem Denies: Hx Eye Injury, Hx Eye Prosthesis, Hx Glaucoma, Hx Legally Blind, Hx Macular Degeneration, Hx Deafness, Hx Hearing Aid, Other Sensory Impairments Opthamlomology History: Reports: Hx Cataracts - due for sx, Hx Contacts or Glasses, Hx Vision Problem Denies: Hx Eye Injury, Hx Eye Prosthesis, Hx Glaucoma, Hx Legally Blind, Hx Macular Degeneration, Other Sensory Impairments Neurological History: Reports: Hx Seizures, Hx Transient Ischemic Attacks (TIA) Denies: Hx Dementia, Hx Developmental Delay, Hx Headaches, Hx Migraine, Hx Nerve Disease, Hx Spinal Cord Injury, Other Neuro Impairments/Disorders Psychiatric History: Reports: Hx Anxiety, Hx Depression - He thinks about the of his and son often., Hx Post Traumatic Stress Disorder, Other Psychiatric Issues/Disorders - Had one episode of emotional shock, but no depression etc since. Denies: Hx Attention Deficit Hyperactivity Disorder, Hx Eating Disorder, Hx Panic Disorder, Hx Inpatient Treatment, Hx Community Mental Health Tx, Hx Schizophrenia, Hx Bipolar Disorder, Hx Suicide Attempt, Hx of Violent Episodes Against Others, Hx Substance Abuse - Cancer History Cancer Type, Location and Year: Skin cancer on scalp - Surgical History Surgery Procedure, Year, and Place: Bypass 2009. hernia 8. left shoulder sx in [place] in 1965. CABG. 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 Denies: Hx Clostridium Difficile, Hx Hepatitis, Hx Human Immunodeficiency Virus (HIV), Hx Shingles, Hx Tuberculosis, Hx Known/Suspected VRE, History Other Infectious Disease, Traveled Outside the [place] in Last 30 Days - Family History Known Family History: Positive: Cardiac Disease, Other - uterine CA, colon CA - Social History Alcohol Use: None Hx Substance Use: No Substance Use Type: Reports: None Hx Tobacco Use: No Smoking Status (MU): Never Smoked Tobacco Have You Smoked in the Last Year: No Review of Systems Negative: Fever Positive: Chest Pain Positive: Shortness Of Breath All Other Systems Reviewed And Are Negative: Yes Physical Exam Triage Information Reviewed: Yes Vital Signs On Initial Exam: Initial Vitals Temp Pulse Resp BP Pulse Ox 97.6 F 68 22 112/98 97 10/13/16 13:34 10/13/16 13:34 10/13/16 13:34 10/13/16 13:34 10/13/16 13:34 Vital Signs Reviewed: Yes Appearance: Positive: Ill-Appearing - chronically ill appearing Skin: Positive: Warm, Skin Color Reflects Adequate Perfusion, Dry Eyes: Positive: EOMI, LJ Neck: Positive: Supple, Nontender Respiratory/Lung Sounds: Positive: Other - increased respiratory rates Cardiovascular: Positive: RRR, Pulses are Symmetrical in both Upper and Lower Extremities Abdomen Description: Positive: Nontender, Soft Musculoskeletal: Positive: Strength/ROM Intact Neurological: Positive: Sensory/Motor Intact, Alert, Oriented to Person Place, Time Psychiatric: Positive: Affect/Mood Appropriate AVPU Assessment: Alert - [place] Coma Scale Coma Scale Total: 15 Diagnostics - Vital Signs Vital Signs Temp Pulse Resp BP Pulse Ox 10/13/16 13:35 69 98 10/13/16 13:34 97.6 F 68 22 112/98 97 - Laboratory Lab Results: Lab Results 10/13/16 10/13/16 10/13/16 Range/Units 14:06 14:35 14:35 WBC 8.8 (3.5-10.8) 10^3/ul RBC 4.67 (4.0-5.4) 10^6/ul Hgb 13.8 L (14.0-18.0) g/dl Hct 40 L (42-52) % MCV 86 (80-94) fL MCH 30 (27-31) pg MCHC 34 (31-36) g/dl RDW 14 (10.5-15) % Plt Count 151 (150-450) 10^3/ul MPV 8 (7.4-10.4) um3 Neut % (Auto) 71.4 (38-83) % Lymph % (Auto) 17.3 L (25-47) % Kay % (Auto) 8.2 (1-9) % Eos % (Auto) 2.4 (0-6) % Baso % (Auto) 0.7 (0-2) % Absolute Neuts (auto) 6.3 (1.5-7.7) 10^3/ul Absolute Lymphs (auto) 1.5 (1.0-4.8) 10^3/ul Absolute Monos (auto) 0.7 (0-0.8) 10^3/ul Absolute Eos (auto) 0.2 (0-0.6) 10^3/ul Absolute Basos (auto) 0.1 (0-0.2) 10^3/ul Absolute Nucleated RBC 0 10^3/ul Nucleated RBC % 0 Patient Temperature Not Reportable ABG pH 7.42 (7.35-7.45) ABG pCO2 41 (35-45) mmHg ABG pO2 125 H (80-100) mmHg ABG HCO3 26.4 (19-31) mmol/L ABG O2 Saturation 98.3 H (95-98) % ABG Base Excess 1.9 (-2.0-2.0) Respiration Rate Not Reportable O2 Delivery Device nc Ventilator Type Not Reportable Vent Mode Not Reportable FiO2 5 Inspiratory Time Not Reportable PEEP Not Reportable Pressure Support Not Reportable Pressure Control Not Reportable EPAP Not Reportable IPAP Not Reportable BiPAP Not Reportable Sodium 134 (133-145) mmol/L Potassium 4.4 (3.5-5.0) mmol/L Chloride 100 L (101-111) mmol/L Carbon Dioxide 30 (22-32) mmol/L Anion Gap 4 (2-11) mmol/L BUN 35 H (6-24) mg/dL Creatinine 1.44 H (0.67-1.17) mg/dL Est GFR ( Amer) 61.0 (>60) Est GFR (Non-Af Amer) 47.4 (>60) BUN/Creatinine Ratio 24.3 H (8-20) Glucose 338 H (70-100) mg/dL Calcium 8.6 (8.6-10.3) mg/dL Total Bilirubin 0.60 (0.2-1.0) mg/dL AST 18 (13-39) U/L ALT 22 (7-52) U/L Alkaline Phosphatase 120 H (34-104) U/L Troponin I 0.05 H* (<0.04) ng/mL B-Natriuretic Peptide ( - 100) pg/mL Total Protein 7.1 (6.4-8.9) g/dL Albumin 3.6 (3.2-5.2) g/dL Globulin 3.5 (2-4) g/dL Albumin/Globulin Ratio 1.0 (1-3) //17 Range/Units 14:35 WBC (3.5-10.8) 10^3/ul RBC (4.0-5.4) 10^6/ul Hgb (14.0-18.0) g/dl Hct (42-52) % MCV (80-94) fL MCH (27-31) pg MCHC (31-36) g/dl RDW (10.5-15) % Plt Count (150-450) 10^3/ul MPV (7.4-10.4) um3 Neut % (Auto) (38-83) % Lymph % (Auto) (25-47) % Kay % (Auto) (1-9) % Eos % (Auto) (0-6) % Baso % (Auto) (0-2) % Absolute Neuts (auto) (1.5-7.7) 10^3/ul Absolute Lymphs (auto) (1.0-4.8) 10^3/ul Absolute Monos (auto) (0-0.8) 10^3/ul Absolute Eos (auto) (0-0.6) 10^3/ul Absolute Basos (auto) (0-0.2) 10^3/ul Absolute Nucleated RBC 10^3/ul Nucleated RBC % Patient Temperature ABG pH (7.35-7.45) ABG pCO2 (35-45) mmHg ABG pO2 (80-100) mmHg ABG HCO3 (19-31) mmol/L ABG O2 Saturation (95-98) % ABG Base Excess (-2.0-2.0) Respiration Rate O2 Delivery Device Ventilator Type Vent Mode FiO2 Inspiratory Time PEEP Pressure Support Pressure Control EPAP IPAP BiPAP Sodium (133-145) mmol/L Potassium (3.5-5.0) mmol/L Chloride (101-111) mmol/L Carbon Dioxide (22-32) mmol/L Anion Gap (2-11) mmol/L BUN (6-24) mg/dL Creatinine (0.67-1.17) mg/dL Est GFR ( Amer) (>60) Est GFR (Non-Af Amer) (>60) BUN/Creatinine Ratio (8-20) Glucose (70-100) mg/dL Calcium (8.6-10.3) mg/dL Total Bilirubin (0.2-1.0) mg/dL AST (13-39) U/L ALT (7-52) U/L Alkaline Phosphatase (34-104) U/L Troponin I (<0.04) ng/mL B-Natriuretic Peptide 138 H ( - 100) pg/mL Total Protein (6.4-8.9) g/dL Albumin (3.2-5.2) g/dL Globulin (2-4) g/dL Albumin/Globulin Ratio (1-3) Result Diagrams: 10/13/16 14:35 10/13/16 14:35 Lab Statement: Any lab studies that have been ordered have been reviewed, and results considered in the medical decision making process. - Radiology CXR Xray Interpretation: No Acute Changes - Low lung volume. No acute cardiopulmonary disease. Radiology Interpretation Completed By: Radiologist - EKG 1334 Cardiac Rate: NL EKG Rhythm: Sinus Rhythm EKG Interpretation: old LBBB same from 11 days ago Re-Evaluation - Re-Evaluation First Eval Re-Evaluation Time: 15:44 Change: Improved Comment: Pt is feeling better and requests discharge. Chest Pain Course/Dx - Course Course Of Treatment: 80 yo male on dependent o2 came in with a short episode of sob and cp that lasted one to two seconds, first trop is .05 which is his benji and he feels much better. Will get his 7 hr trop now if not increased from .05 ok to go. He denies coughing and says his sob was short in nature not like a typical copd exacerbation - Diagnoses Provider Diagnoses: COPD (chronic obstructive pulmonary disease), Chest pain Discharge - Discharge Plan Condition: Stable Disposition: HOME The documentation as recorded by the Eitan couch Soohyun accurately reflects the service I personally performed and the decisions made by me, Kayla Hernandez MD.
[2016-10-13 17:31] VITALS: BP 119/61
== END 2016-10-13 19:33 | disposition home or self-care (01) ==
LOC: ED 13:26
DX: J44.9 Chronic obstructive pulmonary disease, unspecified (principal); R07.9 Chest pain, unspecified; R06.02 Shortness of breath
CPT/HCPCS: 36415; 36600; 71010; 80053; 82803; 83880; 84484; 85025; 93005; 94640; 99284; A9270-GY

== ENCOUNTER 2017-03-09 15:12 | Emergency (ER) | payer OTHER ==
--- NOTE | 2017-03-09 16:48 | ED ---
Throat Pain/Nasal Congestion - HPI Summary HPI Summary: 81 male presents to ED with complaints of left ear canal bleeding and some pain after cleaning with a q-tip. Patient denies any other complaints, no other loss of hearing however does not have hearing aids in because of symptoms. Patient states the bleeding began right after using q-tip. No other complaints. No known fever/chills, cough, sore throat or other cold like symptoms. Has not taken any medication. - History of Current Complaint Chief Complaint: EDEarPain Time Seen by Provider: 03/09/17 15:41 Hx Obtained From: Patient Onset/Duration: Sudden Onset, Lasting Hours Severity: Mild Cough: None - Allergies/Home Medications Allergies/Adverse Reactions: Allergies Allergy/AdvReac Type Severity Reaction Status Date / Time Nitroglycerin Allergy Severe Anaphylactic Verified 01/07/17 12:33 Shock Levofloxacin [From Levaquin] Allergy Intermediate Itching Verified 01/07/17 12: 33 Iodinated Contrast Media AdvReac Severe Altered Verified 01/07/17 12:33 [IV CONTRAST DYE] Mental Status PMH/Surg Hx/FS Hx/Imm Hx Endocrine/Hematology History: Reports: Hx Anticoagulant Therapy, Hx Blood Transfusions, Hx Diabetes, Hx Anemia Denies: Hx Blood Disorders, Hx Bone Marrow Disease, Hx Systemic Lupus Erythematosus, Hx Sickle Cell Disease, Hx Thyroid Disease, Hx Unexplained Bleeding Cardiovascular History: Reports: Hx Angina, Hx Angioplasty, Hx Cardiac Arrest - 03/05/14, Hx Congestive Heart Failure, Hx Coronary Artery Disease, Hx Deep Vein Thrombosis, Hx Hypercholesterolemia, Hx Hypertension, Hx Myocardial Infarction, Hx Syncope, Hx Valvular Heart Disease Denies: Hx Aneurysm, Hx Auto Implanted Cardiovert Defib, Hx Cardiomegaly, Hx Congenital Heart Disease, Hx Hypotension, Hx Pacemaker/ICD, Hx Peripheral Vascular Disease, Hx Rheumatic Fever, Other Cardiovascular Problems/Disorders Respiratory History: Reports: Hx Chronic Bronchitis, Hx Chronic Obstructive Pulmonary Disease (COPD), Hx Pleural Effusion, Hx Pneumonia, Hx Pulmonary Edema , Hx Sleep Apnea - CPAP, Other Respiratory Problems/Disorders - Bronchitis Denies: Hx Asthma, Hx Cystic Fibrosis, Hx Lung Cancer, Hx Pulmonary Embolism , Hx Seasonal Allergies GI History: Reports: Hx Gastroesophageal Reflux Disease, Hx Hiatal Hernia, Hx Obstructive Bowel Denies: Hx Cirrhosis, Hx Crohn's Disease, Hx Diverticulosis, Hx Gall Bladder Disease, Hx Gastrointestinal Bleed, Hx Irritable Bowel, Hx Jaundice, Hx Ileostomy, Hx Pyloric Stenosis, Hx Ulcer, Other GI Disorders History: Reports: Hx Benign Prostatic Hyperplasia, Hx Kidney Infection Denies: Hx Acute Renal Failure, Hx Chronic Renal Failure, Hx Dialysis, Hx Kidney Stones, Other Problems/Disorders Musculoskeletal History: Reports: Hx Arthritis, Hx Back Problems, Other Musculoskeletal History - BLE weakness hx CVA, uses scooter at home Denies: Hx Bursitis, Hx Congenital Bone Abnormalities, Hx Fibromyalgia, Hx Gout, Hx Orthopedic Injury, Hx Osteoporosis, Hx Scoliosis, Hx Tendonitis Sensory History: Reports: Hx Cataracts - due for sx, Hx Contacts or Glasses, Hx Vision Problem, Hx Hearing Problem Denies: Hx Eye Injury, Hx Eye Prosthesis, Hx Glaucoma, Hx Legally Blind, Hx Macular Degeneration, Hx Deafness, Hx Hearing Aid, Other Sensory Impairments Opthamlomology History: Reports: Hx Cataracts - due for sx, Hx Contacts or Glasses, Hx Vision Problem Denies: Hx Eye Injury, Hx Eye Prosthesis, Hx Glaucoma, Hx Legally Blind, Hx Macular Degeneration, Other Sensory Impairments Neurological History: Reports: Hx Seizures, Hx Transient Ischemic Attacks (TIA) Denies: Hx Dementia, Hx Developmental Delay, Hx Headaches, Hx Migraine, Hx Nerve Disease, Hx Spinal Cord Injury, Other Neuro Impairments/Disorders Psychiatric History: Reports: Hx Anxiety, Hx Depression - He thinks about the of his and son often., Hx Post Traumatic Stress Disorder, Other Psychiatric Issues/Disorders - Had one episode of emotional shock, but no depression etc since. Denies: Hx Attention Deficit Hyperactivity Disorder, Hx Eating Disorder, Hx Panic Disorder, Hx Inpatient Treatment, Hx Community Mental Health Tx, Hx Schizophrenia, Hx Bipolar Disorder, Hx Suicide Attempt, Hx of Violent Episodes Against Others, Hx Substance Abuse - Cancer History Cancer Type, Location and Year: Skin cancer on scalp - Surgical History Surgery Procedure, Year, and Place: Bypass 2008. hernia 1957. left shoulder sx in [place] in 1965. CABG. 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 VRE, History Other Infectious Disease, Traveled Outside the [place] in Last 30 Days - Family History Known Family History: Positive: Cardiac Disease, Other - uterine CA, colon CA - Social History Alcohol Use: None Hx Substance Use: No Substance Use Type: Reports: None Hx Tobacco Use: No Smoking Status (MU): Never Smoked Tobacco Have You Smoked in the Last Year: No Review of Systems Constitutional: Negative Positive: Ear Ache - with discharge, left Cardiovascular: Negative Respiratory: Negative Skin: Negative Neurological: Negative All Other Systems Reviewed And Are Negative: Yes Physical Exam Triage Information Reviewed: Yes Vital Signs On Initial Exam: Initial Vitals Temp Pulse Resp BP Pulse Ox 98.2 F 81 24 129/80 100 03/09/17 15:19 18 15:19 03/09/17 15:19 03/09/17 15:19 03/09/17 15:19 Vital Signs Reviewed: Yes Appearance: Positive: Well-Appearing, No Pain Distress, Well-Nourished Skin: Positive: Warm, Skin Color Reflects Adequate Perfusion, Dry Head/Face: Positive: Normal Head/Face Inspection Eyes: Positive: Conjunctiva Clear ENT: Positive: Hearing grossly normal, Pharynx normal, TM dull, TM red - EAC bilateral erythema with discharge/blood in left EAC no FB present, appears to be a small TM perforation, left. limited visibility due to discharge infection, Uvula midline. Negative: Nasal congestion, Nasal drainage, Tonsillar swelling, Tonsillar exudate, Trismus Neck: Positive: Supple, Nontender, No Lymphadenopathy Respiratory/Lung Sounds: Positive: Clear to Auscultation, Breath Sounds Present. Negative: Rales, Rhonchi, Wheezes Cardiovascular: Positive: Normal, RRR, Pulses are Symmetrical in both Upper and Lower Extremities. Negative: Murmur, Rub Musculoskeletal: Positive: Normal, Strength/ROM Intact Neurological: Positive: Normal, Sensory/Motor Intact, Alert, Oriented to Person Place, Time - Nancy Coma Scale Coma Scale Total: 15 Diagnostics - Vital Signs Vital Signs Temp Pulse Resp BP Pulse Ox 03/09/17 15:19 98.2 F 81 24 129/80 100 - Laboratory Lab Statement: Any lab studies that have been ordered have been reviewed, and results considered in the medical decision making process. EENT Course/Dx - Course Course Of Treatment: will treat with ciprodex for otitis media bilaterally, TM perforation will heal and is not of concern at this time, limited visibility due to EAC discharge and edema/erythema. Dull TM. given ciprodex to use at home. increase fluid intake. tylenol if painful. patient states not in much pain currently and did not need medication. follow up with pcp for recheck in 5- 7 days. patient agrees and understands plan. no other concern at this time. - Differential Diagnoses Differential Diagnoses: Otitis Externa, Otitis Media, Perforated TM - Diagnoses Provider Diagnoses: Otitis externa of both ears, Tympanic membrane rupture Discharge - Discharge Plan Condition: Stable Disposition: HOME Patient Education Materials: Otitis Externa (ED), Ruptured Eardrum (ED) Referrals: Jeremiah Ruano MD [Primary Care Provider] - Additional Instructions: Use prescribed ear drops 4 drops both ears twice daily. Do not stick anything into ears. Do not submerge ears in water. Any new or worsening symptoms (loss of hearing, more drainage, worsening pain) please seek medical attention, and return as discussed. Follow up with PCP in 5-7 days to ensure improvement.
[2017-03-09] MEDS: Ciproflox/Dexameth OTIC.SUSP* 7.5 ML BTL BOTH EARS ONE ×2 (16:53→17:25)
[2017-03-09 17:29] VITALS: BP 134/76
== END 2017-03-09 17:30 | disposition home or self-care (01) ==
LOC: ED 15:12
DX: H60.93 Unspecified otitis externa, bilateral (principal); H72.92 Unspecified perforation of tympanic membrane, left ear; E11.9 Type 2 diabetes mellitus without complications; I25.119 Atherosclerotic heart disease of native coronary artery with unspecified angina pectoris; I10 Essential (primary) hypertension; Z86.74 Personal history of sudden cardiac arrest; Z95.1 Presence of aortocoronary bypass graft; I25.2 Old myocardial infarction; Z86.718 Personal history of other venous thrombosis and embolism; Z79.01 Long term (current) use of anticoagulants; E78.00 Pure hypercholesterolemia, unspecified; J44.9 Chronic obstructive pulmonary disease, unspecified; K21.9 Gastro-esophageal reflux disease without esophagitis; N40.0 Benign prostatic hyperplasia without lower urinary tract symptoms; R56.9 Unspecified convulsions; G45.9 Transient cerebral ischemic attack, unspecified; F32.9 Major depressive disorder, single episode, unspecified; Z85.828 Personal history of other malignant neoplasm of skin; Z88.8 Allergy status to other drugs, medicaments and biological substances; Z91.041 Radiographic dye allergy status
CPT/HCPCS: 99282; A9270-GY

== ENCOUNTER 2017-03-12 14:27 | Emergency (ER) | payer OTHER ==
[2017-03-12 14:38] VITALS: BP 84/68
--- NOTE | 2017-03-12 16:15 | ED ---
Luis Mack Gabriel, scribed for Yazan Whitaker MD on 03/12/17 at 1457 . Complex/Multi-Sys Presentation - HPI Summary HPI Summary: This patient is a 81 year old M presenting to [facility] accompanied by his aid with a chief complaint of a syncopal episode since yesterday. He was in his motorized wheelchair when he said he got twitchy but did not fall out of the chair or lose consciousness. His aid believes he is having seizures when he has this twitching. Aid states he has over 7 seizures a day and has had 3 in the past twenty minutes. He states that during these episodes there is twitching bilaterally with no LOC. He has been taken off his seizure medication because they were pseudo seizures cause by anxiety. The patient reports that the jerking motions arent new and began after one of his 3 CVAs. Patient denies CP and SOB. He also states he is not worried about anything and would rather not have any type of work up. He just ate a honey bun and his blood glucose is 397. He is on 3 L NC O2 at home. - History Of Current Complaint Chief Complaint: EDSyncope Time Seen by Provider: 03/12/17 14:42 Hx Obtained From: Patient Onset/Duration: Lasting Days - 1, Resolved Timing: Constant Severity Currently: None Severity Initially: Mild Associated Signs And Symptoms: Positive: Other - NEGATIVE LOC - Allergies/Home Medications Allergies/Adverse Reactions: Allergies Allergy/AdvReac Type Severity Reaction Status Date / Time Nitroglycerin Allergy Severe Anaphylactic Verified 01/07/17 12:33 Shock Levofloxacin [From Levaquin] Allergy Intermediate Itching Verified 01/07/17 12: 33 Iodinated Contrast Media AdvReac Severe Altered Verified 01/07/17 12:33 [IV CONTRAST DYE] Mental Status PMH/Surg Hx/FS Hx/Imm Hx Previously Healthy: No Endocrine/Hematology History: Reports: Hx Anticoagulant Therapy, Hx Blood Transfusions, Hx Diabetes, Hx Anemia Denies: Hx Blood Disorders, Hx Bone Marrow Disease, Hx Systemic Lupus Erythematosus, Hx Sickle Cell Disease, Hx Thyroid Disease, Hx Unexplained Bleeding Cardiovascular History: Reports: Hx Angina, Hx Angioplasty, Hx Cardiac Arrest - 03/05/14, Hx Congestive Heart Failure, Hx Coronary Artery Disease, Hx Deep Vein Thrombosis, Hx Hypercholesterolemia, Hx Hypertension, Hx Myocardial Infarction, Hx Syncope, Hx Valvular Heart Disease Denies: Hx Aneurysm, Hx Auto Implanted Cardiovert Defib, Hx Cardiomegaly, Hx Congenital Heart Disease, Hx Hypotension, Hx Pacemaker/ICD, Hx Peripheral Vascular Disease, Hx Rheumatic Fever, Other Cardiovascular Problems/Disorders Respiratory History: Reports: Hx Chronic Bronchitis, Hx Chronic Obstructive Pulmonary Disease (COPD), Hx Pleural Effusion, Hx Pneumonia, Hx Pulmonary Edema , Hx Sleep Apnea - CPAP, Other Respiratory Problems/Disorders - Bronchitis Denies: Hx Asthma, Hx Cystic Fibrosis, Hx Lung Cancer, Hx Pulmonary Embolism , Hx Seasonal Allergies GI History: Reports: Hx Gastroesophageal Reflux Disease, Hx Hiatal Hernia, Hx Obstructive Bowel Denies: Hx Cirrhosis, Hx Crohn's Disease, Hx Diverticulosis, Hx Gall Bladder Disease, Hx Gastrointestinal Bleed, Hx Irritable Bowel, Hx Jaundice, Hx Ileostomy, Hx Pyloric Stenosis, Hx Ulcer, Other GI Disorders History: Reports: Hx Benign Prostatic Hyperplasia, Hx Kidney Infection Denies: Hx Acute Renal Failure, Hx Chronic Renal Failure, Hx Dialysis, Hx Kidney Stones, Other Problems/Disorders Musculoskeletal History: Reports: Hx Arthritis, Hx Back Problems, Other Musculoskeletal History - BLE weakness hx CVA, uses scooter at home Denies: Hx Bursitis, Hx Congenital Bone Abnormalities, Hx Fibromyalgia, Hx Gout, Hx Orthopedic Injury, Hx Osteoporosis, Hx Scoliosis, Hx Tendonitis Sensory History: Reports: Hx Cataracts - due for sx, Hx Contacts or Glasses, Hx Vision Problem, Hx Hearing Problem Denies: Hx Eye Injury, Hx Eye Prosthesis, Hx Glaucoma, Hx Legally Blind, Hx Macular Degeneration, Hx Deafness, Hx Hearing Aid, Other Sensory Impairments Opthamlomology History: Reports: Hx Cataracts - due for sx, Hx Contacts or Glasses, Hx Vision Problem Denies: Hx Eye Injury, Hx Eye Prosthesis, Hx Glaucoma, Hx Legally Blind, Hx Macular Degeneration, Other Sensory Impairments Neurological History: Reports: Hx Seizures, Hx Transient Ischemic Attacks (TIA) Denies: Hx Dementia, Hx Developmental Delay, Hx Headaches, Hx Migraine, Hx Nerve Disease, Hx Spinal Cord Injury, Other Neuro Impairments/Disorders Psychiatric History: Reports: Hx Anxiety, Hx Depression - He thinks about the of his and son often., Hx Post Traumatic Stress Disorder, Other Psychiatric Issues/Disorders - Had one episode of emotional shock, but no depression etc since. Denies: Hx Attention Deficit Hyperactivity Disorder, Hx Eating Disorder, Hx Panic Disorder, Hx Inpatient Treatment, Hx Community Mental Health Tx, Hx Schizophrenia, Hx Bipolar Disorder, Hx Suicide Attempt, Hx of Violent Episodes Against Others, Hx Substance Abuse - Cancer History Cancer Type, Location and Year: Skin cancer on scalp - Surgical History Surgery Procedure, Year, and Place: Bypass 2008. hernia 1957. left shoulder sx in [place] in 1965. CABG. 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 Denies: Hx Clostridium Difficile, Hx Hepatitis, Hx Human Immunodeficiency Virus (HIV), Hx Shingles, Hx Tuberculosis, Hx Known/Suspected VRE, History Other Infectious Disease, Traveled Outside the [place] in Last 30 Days - Family History Known Family History: Positive: Cardiac Disease, Other - uterine CA, colon CA - Social History Alcohol Use: None Hx Substance Use: No Substance Use Type: Reports: None Hx Tobacco Use: No Smoking Status (MU): Never Smoked Tobacco Have You Smoked in the Last Year: No Review of Systems Negative: Chest Pain Negative: Shortness Of Breath Neurological: Negative - LOC All Other Systems Reviewed And Are Negative: Yes Physical Exam - Summary Physical Exam Summary: Appearance: Well appearing, no pain distress. Patient is in a motorized wheelchair Skin: warm, dry, reflects adequate perfusion Head/face: normal Eyes: EOMI, LJ ENT: normal Neck: supple, non-tender Respiratory: CTA, quiet breath sounds Cardiovascular: RRR, pulses symmetrical Abdomen: non-tender, soft Bowel: present Musculoskeletal: normal, strength/ROM intact Neuro: normal, sensory motor intact, A&Ox Triage Information Reviewed: Yes Vital Signs On Initial Exam: Initial Vitals Temp Pulse Resp BP Pulse Ox 97.4 F 80 26 84/68 94 03/12/17 14:33 03/12/17 14:33 03/12/17 14:33 03/12/17 14:33 03/12/17 14:33 Vital Signs Reviewed: Yes Diagnostics - Vital Signs Vital Signs Temp Pulse Resp BP Pulse Ox 03/12/17 14:33 97.4 F 80 26 84/68 94 - Laboratory Lab Results: Lab Results 03/12/17 Range/Units 14:44 POC Glucose (mg/dL) 397 H (70-100) mg/dL Lab Statement: Any lab studies that have been ordered have been reviewed, and results considered in the medical decision making process. Complex Multi-Symp Course/Dx Course Of Treatment: Pt has known "pseudoseizures" and is here with aide who states this happened more today since they stopped his seizure meds yesterday. They were here eating in the cafe' (Pt ate sticky bun) and now sugar in 300s. Pt did not want to get out of his motorchair and refused testing. He feels he is at his baseline. I offered IV, testing, etc and he refused -- [place] and will return if he feels poorly. His episodes are witnessed here, and are intermittent myoclonic jerking on both sides with preserved consciousness. - Diagnoses Provider Diagnoses: Myoclonic jerking, Hyperglycemia due to type 2 diabetes mellitus Discharge - Discharge Plan Condition: Good Disposition: HOME Patient Education Materials: Diabetic Hyperglycemia (ED) Referrals: Jeremiah Ruano MD [Primary Care Provider] - Additional Instructions: Avoid lots of sugar. Call your doctor today for follow up. Return with loss of consciousness, fever, increased jerking, uncontrolled sugars or other concerns. The documentation as recorded by the Luis couch Gabriel accurately reflects the service I personally performed and the decisions made by me, Yazan Whitaker MD.
== END 2017-03-12 14:47 | disposition home or self-care (01) ==
LOC: ED 14:27
DX: G25.3 Myoclonus (principal); E11.65 Type 2 diabetes mellitus with hyperglycemia; I50.9 Heart failure, unspecified; E78.00 Pure hypercholesterolemia, unspecified; I25.2 Old myocardial infarction; Z86.74 Personal history of sudden cardiac arrest; I25.10 Atherosclerotic heart disease of native coronary artery without angina pectoris; K21.9 Gastro-esophageal reflux disease without esophagitis; N40.0 Benign prostatic hyperplasia without lower urinary tract symptoms; Z86.718 Personal history of other venous thrombosis and embolism; Z79.01 Long term (current) use of anticoagulants; R56.9 Unspecified convulsions
CPT/HCPCS: 99282

== ENCOUNTER 2017-03-25 17:36 | Emergency (ER) | payer OTHER ==
[2017-03-25] MEDS ORDERED: Aspirin Low Dose CHEW TAB* 81 MG PO ONE (19:53)
--- NOTE | 2017-03-25 20:35 | RAD ---
Indication: Congestive heart failure, COPD. Chest pain. Comparison: January 07, 2017 Technique: Upright AP 2002 hours Report: Median sternotomy wires. Cardiomegaly, prominent mildly ill-defined central pulmonary vasculature. Mild prominence of interstitial markings. Mild elevation of the RIGHT hemidiaphragm and basilar subsegmental atelectasis. Negative for pleural effusion or pneumothorax. IMPRESSION: Mild pulmonary vascular congestion and interstitial edema.
[2017-03-25 20:48] VITALS: BP 0/0
--- NOTE | 2017-03-25 21:00 | ED ---
Luis Mack Gabriel, scribfrederick for Aster Juarez MD on 03/25/17 at 1926 . 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 The patient rates the pain 6/10 in severity and described it as cramps in the left hand side and radiating down the arm. Symptoms alleviated spontaneously after lasting an hour. Patient reports SOB and slight diaphoresis. Patient reports that he takes ASA daily and had an DC 3 years ago. The patient is on O2 at home and has a history of COPD. - History of Current Complaint Chief Complaint: EDChestPainROMI Time Seen by Provider: 03/25/17 19:22 Hx Obtained From: Patient Onset/Duration: Started Hours Ago - 1, Resolved Timing: Constant Initial Severity: Moderate Current Severity: None Pain Intensity: 6 Pain Scale Used: 0-10 Numeric Chest Pain Location: Left Anterior Chest Pain Radiates: Yes Chest Pain Radiates To:: Arm - left Associated Signs and Symptoms: Positive: Chest Pain, Shortness of Breath, Diaphoresis - Additional Pertinent History Primary Care Physician: [id number] - Allergy/Home Medications Allergies/Adverse Reactions: Allergies Allergy/AdvReac Type Severity Reaction Status Date / Time Nitroglycerin Allergy Severe Anaphylactic Verified 01/07/17 12:33 Shock Levofloxacin [From Levaquin] Allergy Intermediate Itching Verified 01/07/17 12: 33 Iodinated Contrast Media AdvReac Severe Altered Verified 01/07/17 12:33 [IV CONTRAST DYE] Mental Status PMH/Surg Hx/FS Hx/Imm Hx Endocrine/Hematology History: Reports: Hx Anticoagulant Therapy, Hx Blood Transfusions, Hx Diabetes, Hx Anemia Denies: Hx Blood Disorders, Hx Bone Marrow Disease, Hx Systemic Lupus Erythematosus, Hx Sickle Cell Disease, Hx Thyroid Disease, Hx Unexplained Bleeding Cardiovascular History: Reports: Hx Angina, Hx Angioplasty, Hx Cardiac Arrest - 03/05/14, Hx Congestive Heart Failure, Hx Coronary Artery Disease, Hx Deep Vein Thrombosis, Hx Hypercholesterolemia, Hx Hypertension, Hx Myocardial Infarction, Hx Syncope, Hx Valvular Heart Disease Denies: Hx Aneurysm, Hx Auto Implanted Cardiovert Defib, Hx Cardiomegaly, Hx Congenital Heart Disease, Hx Hypotension, Hx Pacemaker/ICD, Hx Peripheral Vascular Disease, Hx Rheumatic Fever, Other Cardiovascular Problems/Disorders Respiratory History: Reports: Hx Chronic Bronchitis, Hx Chronic Obstructive Pulmonary Disease (COPD), Hx Pleural Effusion, Hx Pneumonia, Hx Pulmonary Edema , Hx Sleep Apnea - CPAP, Other Respiratory Problems/Disorders - Bronchitis Denies: Hx Asthma, Hx Cystic Fibrosis, Hx Lung Cancer, Hx Pulmonary Embolism , Hx Seasonal Allergies GI History: Reports: Hx Gastroesophageal Reflux Disease, Hx Hiatal Hernia, Hx Obstructive Bowel Denies: Hx Cirrhosis, Hx Crohn's Disease, Hx Diverticulosis, Hx Gall Bladder Disease, Hx Gastrointestinal Bleed, Hx Irritable Bowel, Hx Jaundice, Hx Ileostomy, Hx Pyloric Stenosis, Hx Ulcer, Other GI Disorders History: Reports: Hx Benign Prostatic Hyperplasia, Hx Kidney Infection Denies: Hx Acute Renal Failure, Hx Chronic Renal Failure, Hx Dialysis, Hx Kidney Stones, Other Problems/Disorders Musculoskeletal History: Reports: Hx Arthritis, Hx Back Problems, Other Musculoskeletal History - BLE weakness hx CVA, uses scooter at home Denies: Hx Bursitis, Hx Congenital Bone Abnormalities, Hx Fibromyalgia, Hx Gout, Hx Orthopedic Injury, Hx Osteoporosis, Hx Scoliosis, Hx Tendonitis Sensory History: Reports: Hx Cataracts - due for sx, Hx Contacts or Glasses, Hx Vision Problem, Hx Hearing Problem Denies: Hx Eye Injury, Hx Eye Prosthesis, Hx Glaucoma, Hx Legally Blind, Hx Macular Degeneration, Hx Deafness, Hx Hearing Aid, Other Sensory Impairments Opthamlomology History: Reports: Hx Cataracts - due for sx, Hx Contacts or Glasses, Hx Vision Problem Denies: Hx Eye Injury, Hx Eye Prosthesis, Hx Glaucoma, Hx Legally Blind, Hx Macular Degeneration, Other Sensory Impairments Neurological History: Reports: Hx Seizures, Hx Transient Ischemic Attacks (TIA) Denies: Hx Dementia, Hx Developmental Delay, Hx Headaches, Hx Migraine, Hx Nerve Disease, Hx Spinal Cord Injury, Other Neuro Impairments/Disorders Psychiatric History: Reports: Hx Anxiety, Hx Depression - He thinks about the of his and son often., Hx Post Traumatic Stress Disorder, Other Psychiatric Issues/Disorders - Had one episode of emotional shock, but no depression etc since. Denies: Hx Attention Deficit Hyperactivity Disorder, Hx Eating Disorder, Hx Panic Disorder, Hx Inpatient Treatment, Hx Community Mental Health Tx, Hx Schizophrenia, Hx Bipolar Disorder, Hx Suicide Attempt, Hx of Violent Episodes Against Others, Hx Substance Abuse - Cancer History Cancer Type, Location and Year: Skin cancer on scalp - Surgical History Surgery Procedure, Year, and Place: Bypass 2009. hernia 1957. left shoulder sx in [place] in 1965. CABG. 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 VRE, History Other Infectious Disease, Traveled Outside the [place] in Last 30 Days - Family History Known Family History: Positive: Cardiac Disease, Other - uterine CA, colon CA - Social History Occupation: Retired Lives: At [facility] Alcohol Use: None Hx Substance Use: No Substance Use Type: Reports: None Hx Tobacco Use: No Smoking Status (MU): Never Smoked Tobacco Have You Smoked in the Last Year: No Review of Systems Positive: Skin Diaphoresis Positive: Chest Pain Positive: Shortness Of Breath All Other Systems Reviewed And Are Negative: Yes Physical Exam - Summary Physical Exam Summary: VITAL SIGNS: Reviewed. GENERAL: Patient is a well-developed and nourished male is lying comfortable in the stretcher. Patient is not in any acute respiratory distress. HEAD AND FACE: No signs of trauma. No ecchymosis, hematomas or skull depressions. No sinus tenderness. EYES: PERRLA, EOMI x 2, No injected conjunctiva, no nystagmus. EARS: Hearing grossly intact. Ear canals and tympanic membranes are within normal limits. MOUTH: Oropharynx within normal limits. NECK: Supple, trachea is midline, no adenopathy, no JVD, no carotid bruit, no c- spine tenderness, neck with full ROM. CHEST: Symmetric, no tenderness at palpation LUNGS: has decreased breath sounds bilaterally CVS: Regular rate and rhythm, S1 and S2 present, no murmurs or gallops appreciated. ABDOMEN: Soft. No signs of distention. No rebound no guarding, and no masses palpated. Bowel sounds are normal. Patient has abdominal distension EXTREMITIES: FROM in all major joints, no edema, no cyanosis or clubbing. NEURO: Alert and oriented x 3. No acute neurological deficits. Speech is normal and follows commands. SKIN: Dry and warm Triage Information Reviewed: Yes Vital Signs On Initial Exam: Initial Vitals Temp Pulse Resp BP Pulse Ox 97.9 F 73 24 130/104 100 03/25/17 17:43 03/25/17 17:43 03/25/17 17:43 03/25/17 17:43 03/25/17 17:43 Vital Signs Reviewed: Yes - Nancy Coma Scale Coma Scale Total: 15 Diagnostics - Vital Signs Vital Signs Temp Pulse Resp BP Pulse Ox 03/25/17 19:00 67 20 97 03/25/17 18:00 71 18 97 03/25/17 17:59 70 18 97 03/25/17 17:43 97.9 F 73 24 130/104 100 - Laboratory Lab Statement: Any lab studies that have been ordered have been reviewed, and results considered in the medical decision making process. - Radiology CXR Radiology Interpretation Completed By: Radiologist - Mild pulmonary vascular congestion and interstitial edema. ED physician has reviewed this radiology report. 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 The patient rates the pain 6/10 in severity and described it as cramps in the left hand side and radiating down the arm. Symptoms alleviated spontaneously after lasting an hour. Patient reports SOB and slight diaphoresis. Patient reports that he takes ASA daily and had an DC 3 years ago. The patient is on O2 at home and has a history of COPD. Patient is refusing to stay for a cardiac work up. He wishes to sign out AMA and was informed of the possible risks such as . An EKG reveals short [place] intervals, LBBB which is old. CXR reveals, per radiologist, Mild pulmonary vascular congestion and interstitial edema. No work up could be done due to the patients refusal. In the ED course the patient was given ASA. Patient is advised to follow up with his PCP SAMRA due to the chance of a DC. - Diagnoses Provider Diagnoses: Chest pain, rule out acute myocardial infarction Discharge - Discharge Plan Condition: Fair Disposition: AGAINST MEDICAL ADVICE Patient Education Materials: Chest Pain (ED), Against Medical Advice (ED) Referrals: Jeremiah Ruano MD [Primary Care Provider] - 1 Day Additional Instructions: Follow up with Dr. Ruano as soon as possible you may have had a heart attack and should be evaluated. RETURN TO EMERGENCY DEPARTMENT FOR ANY NEW OR WORSENING SYMPTOMS The documentation as recorded by the Luis couch Gabriel accurately reflects the service I personally performed and the decisions made by me, Aster Juarez MD.
== END 2017-03-25 20:46 | disposition left against medical advice (07) ==
LOC: ED 17:36
DX: R07.9 Chest pain, unspecified (principal); R06.02 Shortness of breath; R61 Generalized hyperhidrosis; Z79.01 Long term (current) use of anticoagulants; Z87.09 Personal history of other diseases of the respiratory system; Z86.79 Personal history of other diseases of the circulatory system; Z87.19 Personal history of other diseases of the digestive system
CPT/HCPCS: 71045; 93005; 99282

== ENCOUNTER 2017-03-27 19:15 | Inpatient (IN) | payer OTHER ==
[2017-03-27] MEDS ORDERED: Albuterol/Ipratropium NEB.SOL* Albuterol 2.5 MG/Ipratropium 0.5 MG 3 ML INH ONE (19:39)
[2017-03-27] MEDS ORDERED: Albuterol 2.5 MG/3 ML NEB.SOL* (0.083%) INH ONE (19:40)
[2017-03-27 19:53] LABS: ABS Basophils 0 10^3/ul (0-0.2); ABS Eosinophils 0.2 10^3/ul (0-0.6); ABS Lymphocytes 1.1 10^3/ul (1.0-4.8); ABS Monocytes 0.6 10^3/ul (0-0.8); ABS Neutrophils 5.3 10^3/ul (1.5-7.7); ABS Nucleated RBC 0 10^3/ul; Hematocrit 43 % (42-52); Hemoglobin 15.1 g/dl (14.0-18.0); Lymphocyte % 14.8 % (25-47); Mean Corpuscular HGB Conc 35 g/dl (31-36); Mean Corpuscular Hemoglobin 29 pg (27-31); Mean Corpuscular Volume 84 fL (80-94); Mean Platelet Volume 9 um3 (7.4-10.4); Nucleated Red Blood Cells % 0.1; Platelet Count 154 10^3/ul (150-450); Red Blood Count 5.16 10^6/ul (4.0-5.4); Red Cell Distribution Width 14 % (10.5-15); White Blood Count 7.2 10^3/ul (3.5-10.8)
[2017-03-27 20:10] LABS: EGFR Non-African American 56.2 (>60)
--- NOTE | 2017-03-27 20:22 | RAD ---
Indication: Shortness of breath. Chest pain. Atrial fibrillation. Coronary artery disease, congestive heart failure. COPD. Comparison: March 25, 2017 Technique: Upright AP 1955 hours Report: Moderate elevation of the RIGHT hemidiaphragm increased over the prior exam with mild RIGHT basilar atelectasis. Diffuse mild prominence of interstitial markings. No pleural effusions evident. Negative for pneumothorax. Median sternotomy wires. Cardiomegaly without gross change. Unremarkable central pulmonary vasculature. IMPRESSION: Probable mild interstitial edema. Increased elevation of the RIGHT hemidiaphragm with proportional basilar atelectasis.
[2017-03-27 20:31] LABS: INR 3.28 (0.77-1.02)
[2017-03-27] MEDS ORDERED: Ondansetron INJ* 2 MG/ML VIAL IV PRN (21:35)
[2017-03-27] MEDS ORDERED: CMCS: Melatonin (NF) 3 MG TAB PO PRN (21:35)
[2017-03-27] MEDS ORDERED: Albuterol 2.5 MG/3 ML NEB.SOL* (0.083%) INH PRN (21:35)
[2017-03-27] MEDS ORDERED: Acetaminophen TAB* 325 MG PO PRN (21:35)
[2017-03-27] MEDS ORDERED: NS 0.9% 1000 ML* 1,000 ML IV SCH (21:45)
[2017-03-28] MEDS: Albuterol 2.5 MG/3 ML NEB.SOL* (0.083%) INH SCH ×4 (01:38→20:12)
[2017-03-28] MEDS: Omeprazole CAP* 20 MG PO SCH (05:14)
--- NOTE | 2017-03-28 05:25 | HP ---
H&P (Free Text) History and Physical: PCP: James Ruano Md Date/Time: 03/27/20172119 CC: chest pain HPI: Mr Escamilla is a 81YO morbidly obese male HX CAD, CVA, DM2, & HTN who was a CAT call in the hospital cafeteria 03/24/2017, but signed out of the ED AMA because he was angry for having to wait so long to be seen. Since he has had nearly continuous (only 1-2 minutes without pain occasionally per patient) cramping L chest pain radiating into the L arm associated with SOB, nausea w/o emesis, sweats, & light-headedness, but denies F/C, cough, congestion, or recent injury. He saw his PCP in the interval who pleaded who requested him be evaluated for further symptoms. PMedHx CAD/[place] CVA DM2 pAFIB HTN COPD tracheomalacia TAMICA obesity hypoventilation syndrome HX DVT seizure disorder BPH depression Ambulatory Orders Furosemide TAB* [Lasix TAB*] 40 mg PO BID 12/01/12 Aspirin EC Low Dose* [Ecotrin EC Low Dose 81 MG*] 81 mg PO QAM 10/05/13 Albuterol HFA INHALER* [Ventolin HFA Inhaler*] 2 puff INH Q4H PRN 06/19/15 Atorvastatin* [Lipitor 20 MG*] 10 mg PO DAILY 06/19/15 Budesonide NEB* [Pulmicort Neb*] 0.5 mg INH BID 06/19/15 Cholecalciferol TAB* [Vitamin D TAB*] 2,000 units PO QAM 06/19/15 Finasteride TAB* [Proscar TAB*] 5 mg PO DAILY 06/19/15 Sertraline* [Zoloft*] 100 mg PO QAM 06/19/15 Albuterol 2.5MG/3ML (0.083%)* [Ventolin 2.5 MG/3 ML NEB.BARBRA*] 2.5 mg INH Q4H PRN 11/21/15 Carboxymethylcellulose Sodium [Lubricant Eye Drops] 0.5 % BOTH EYES BID PRN Clobetasol 0.05% OINT* 1 applic TOPICAL BID PRN 11/21/15 Nystatin CREAM* [Nystatin Cream*] 1 applic TOPICAL TID PRN 11/21/15 Acetaminophen TAB* [Tylenol TAB*] 650 mg PO Q4H PRN 10/02/16 Sennosides [Senokot] 17.2 mg PO BID 10/02/16 metFORMIN* [Glucophage 500 MG TAB *] 500 mg PO DAILY WITH MEAL 10/02/16 Insulin GLARGINE(*) [Lantus(*)] 35 units SUBCUT BID 01/07/17 Warfarin TAB(*) [Coumadin TAB(*)] 6 mg PO MOTUWETHFRSA 01/07/17 Warfarin TAB(*) [Coumadin TAB(*)] 9 tab PO BASURTO 01/07/17 Ciprofloxacin HCl (Otic) [Ciprofloxacin 0.2% EAR DROPS] 0.2 % OT DAILY 03/27/17 Allergies Nitroglycerin Allergy (Severe, Verified 03/27/17 19:18) Anaphylactic Shock Levofloxacin [From Levaquin] Allergy (Intermediate, Verified 03/27/17 19:18) Itching Iodinated Contrast Media [IV CONTRAST DYE] Adverse Reaction (Severe, Verified 19:18) Altered Mental Status seizure PSurgHx CABG tracheostomy hernia repair SocHx: no tobacco, alcohol, or recreational drugs; on disability; lives alone; full code status FamHx: Mother: uterine CA; Father: rectal CA ROS: as above, otherwise reviewed and all were negative vitals: Vital Signs Temp 36.8 C 03/27/17 23:51 Pulse 85 03/28/17 01:50 Resp 16 03/28/17 01:50 BP 103/53 03/27/17 23:51 Pulse Ox 96 03/28/17 01:50 Intake & Output 03/27/17 03/27/17 03/28/17 11:59 23:59 11:59 Weight 106.594 kg Constitutional: NAD, normally developed, morbidly obese white male HEENM: atraumatic; sclera/conjunctiva: non-icteric/clear; hearing: clinically mildly decreased; oropharynx: clear, mucosa tacky Neck: soft tissue: non-tender; thyroid: normal Pulmonary: diminished bilaterally, fair aeration, no accessory muscle use CV: RR/RR, normal S1S2, no carotid bruit, no jugular venous distention, 2+ B DP/ PT, no edema Abdominal: soft, non-distended, non-tender, no rebound/guarding/rigidity, normoactive bowel sounds, no hepatosplenomegaly or masses, no costovertebral angle tenderness Musculoskeletal: general: grossly intact, no tenderness w/ palpation Integumental: normal appearance and texture of exposed skin Psychiatric orientation: AA&O to PPS affect: calm mood: cooperative eye contact: fair content: seemingly reliable responses: timely insight: poor Testing: Lab Results 03/27/17 03/27/17 03/27/17 Range/Units 19:36 19:36 19:36 WBC 7.2 (3.5-10.8) 10^3/ul RBC 5.16 (4.0-5.4) 10^6/ul Hgb 15.1 (14.0-18.0) g/dl Hct 43 (42-52) % MCV 84 (80-94) fL MCH 29 (27-31) pg MCHC 35 (31-36) g/dl RDW 14 (10.5-15) % Plt Count 154 (150-450) 10^3/ul MPV 9 (7.4-10.4) um3 Neut % (Auto) 73.5 (38-83) % Lymph % (Auto) 14.8 L (25-47) % [place] % (Auto) 8.1 (1-9) % Eos % (Auto) 3.0 (0-6) % Baso % (Auto) 0.6 (0-2) % Absolute Neuts (auto) 5.3 (1.5-7.7) 10^3/ul Absolute Lymphs (auto) 1.1 (1.0-4.8) 10^3/ul Absolute Monos (auto) 0.6 (0-0.8) 10^3/ul Absolute Eos (auto) 0.2 (0-0.6) 10^3/ul Absolute Basos (auto) 0 (0-0.2) 10^3/ul Absolute Nucleated RBC 0 10^3/ul Nucleated RBC % 0.1 INR (Anticoag Therapy) 3.28 H (0.77-1.02) APTT 43.5 H (26.0-36.3) seconds Sodium (133-145) mmol/L Potassium Chloride (101-111) mmol/L Carbon Dioxide (22-32) mmol/L Anion Gap (2-11) mmol/L BUN (6-24) mg/dL Creatinine (0.67-1.17) mg/dL Est GFR ( Amer) (>60) Est GFR (Non-Af Amer) (>60) BUN/Creatinine Ratio (8-20) Glucose (70-100) mg/dL Hemoglobin A1c (4.0-5.6) % Calcium (8.6-10.3) mg/dL Magnesium Total Bilirubin (0.2-1.0) mg/dL AST ALT (7-52) U/L Alkaline Phosphatase (34-104) U/L Troponin I (<0.04) ng/mL B-Natriuretic Peptide 144 H ( - 100) pg/mL Total Protein (6.4-8.9) g/dL Albumin (3.2-5.2) g/dL Globulin (2-4) g/dL Albumin/Globulin Ratio (1-3) 03/27/17 03/27/17 03/27/17 Range/Units 19:36 19:36 20:24 WBC (3.5-10.8) 10^3/ul RBC (4.0-5.4) 10^6/ul Hgb (14.0-18.0) g/dl Hct (42-52) % MCV (80-94) fL MCH (27-31) pg MCHC (31-36) g/dl RDW (10.5-15) % Plt Count (150-450) 10^3/ul MPV (7.4-10.4) um3 Neut % (Auto) (38-83) % Lymph % (Auto) (25-47) % [place] % (Auto) (1-9) % Eos % (Auto) (0-6) % Baso % (Auto) (0-2) % Absolute Neuts (auto) (1.5-7.7) 10^3/ul Absolute Lymphs (auto) (1.0-4.8) 10^3/ul Absolute Monos (auto) (0-0.8) 10^3/ul Absolute Eos (auto) (0-0.6) 10^3/ul Absolute Basos (auto) (0-0.2) 10^3/ul Absolute Nucleated RBC 10^3/ul Nucleated RBC % INR (Anticoag Therapy) (0.77-1.02) APTT (26.0-36.3) seconds Sodium 136 (133-145) mmol/L Potassium TNP 4.1 Chloride 99 L (101-111) mmol/L Carbon Dioxide 29 (22-32) mmol/L Anion Gap 8 (2-11) mmol/L BUN 27 H (6-24) mg/dL Creatinine 1.24 H (0.67-1.17) mg/dL Est GFR ( Amer) 72.3 (>60) Est GFR (Non-Af Amer) 56.2 (>60) BUN/Creatinine Ratio 21.8 H (8-20) Glucose 421 H (70-100) mg/dL Hemoglobin A1c 10.1 H (4.0-5.6) % Calcium 8.8 (8.6-10.3) mg/dL Magnesium TNP 2.0 Total Bilirubin 0.50 (0.2-1.0) mg/dL AST TNP 20 ALT 16 (7-52) U/L Alkaline Phosphatase 118 H (34-104) U/L Troponin I 0.05 H* (<0.04) ng/mL B-Natriuretic Peptide ( - 100) pg/mL Total Protein 7.0 (6.4-8.9) g/dL Albumin 3.6 (3.2-5.2) g/dL Globulin 3.4 (2-4) g/dL Albumin/Globulin Ratio 1.1 (1-3) 03/28/17 Range/Units 00:40 WBC (3.5-10.8) 10^3/ul RBC (4.0-5.4) 10^6/ul Hgb (14.0-18.0) g/dl Hct (42-52) % MCV (80-94) fL MCH (27-31) pg MCHC (31-36) g/dl RDW (10.5-15) % Plt Count (150-450) 10^3/ul MPV (7.4-10.4) um3 Neut % (Auto) (38-83) % Lymph % (Auto) (25-47) % [place] % (Auto) (1-9) % Eos % (Auto) (0-6) % Baso % (Auto) (0-2) % Absolute Neuts (auto) (1.5-7.7) 10^3/ul Absolute Lymphs (auto) (1.0-4.8) 10^3/ul Absolute Monos (auto) (0-0.8) 10^3/ul Absolute Eos (auto) (0-0.6) 10^3/ul Absolute Basos (auto) (0-0.2) 10^3/ul Absolute Nucleated RBC 10^3/ul Nucleated RBC % INR (Anticoag Therapy) (0.77-1.02) APTT (26.0-36.3) seconds Sodium (133-145) mmol/L Potassium Chloride (101-111) mmol/L Carbon Dioxide (22-32) mmol/L Anion Gap (2-11) mmol/L BUN (6-24) mg/dL Creatinine (0.67-1.17) mg/dL Est GFR ( Amer) (>60) Est GFR (Non-Af Amer) (>60) BUN/Creatinine Ratio (8-20) Glucose (70-100) mg/dL Hemoglobin A1c (4.0-5.6) % Calcium (8.6-10.3) mg/dL Magnesium Total Bilirubin (0.2-1.0) mg/dL AST ALT (7-52) U/L Alkaline Phosphatase (34-104) U/L Troponin I 0.04 H* (<0.04) ng/mL B-Natriuretic Peptide ( - 100) pg/mL Total Protein (6.4-8.9) g/dL Albumin (3.2-5.2) g/dL Globulin (2-4) g/dL Albumin/Globulin Ratio (1-3) ECG, personally reviewed: LBBB rate 71 CXR, personally reviewed: IMPRESSION: Probable mild interstitial edema. Increased elevation of the RIGHT hemidiaphragm with proportional basilar atelectasis. chemical NST (10/03/16) IMPRESSION: No definite fixed or reversible perfusion defect. Likely artifact is noted. Decreased ejection fraction of 42%. ASSESSMENT : Intermediate risk Impression: 81M HX CAD, AFIB, COPD, DM2 presenting with atypical chest pain of 2days nearly continuous duration, baseline troponins DIAGNOSIS & PLAN Primary atypical chest pain r/o ACS : telemetry : trend troponins : NPO after midnight : consider cardiology consult in AM : supplemental oxygen : supportive care warfarin toxicity : hold until INR 2-3 & restart w/ dosage adjustment Secondary CVA : review meds once reconciled DM2 : check A1c : insulin carb ratio diet : basal/correctional insulin pAFIB : no acute issues HTN : review meds once reconciled COPD, not in exacerbation : albuterol nebs PRN : mometasone/formoterol : tiotropium tracheomalacia : no acute issues TAMICA : continue BiPap obesity hypoventilation syndrome : no acute issues seizure disorder : review meds once reconciled BPH : review meds once reconciled depression : review meds once reconciled Admission Rational: observation for r/o ACS DVTp: warfarin once INR down to therapeutic Code Status: full, needs revisiting HCP: Anabella lizarraga
[2017-03-28] MEDS: Insulin LISPRO* 1 UNITS UNIT SUBCUT SCH ×5 (06:38→21:29)
[2017-03-28] MEDS: Sertraline* 100 MG TAB PO SCH (08:35)
[2017-03-28] MEDS: Senna TAB PO SCH ×2 (08:35→21:35)
[2017-03-28] MEDS: Finasteride TAB* 5 MG PO SCH (08:35)
[2017-03-28] MEDS: Atorvastatin* 10 MG TAB PO SCH (08:36)
[2017-03-28] MEDS: Furosemide TAB* 40 MG PO SCH ×2 (08:36→21:35)
[2017-03-28] MEDS: Docusate CAP* 100 MG PO SCH ×2 (08:36→21:35)
[2017-03-28] MEDS: Aspirin EC Low Dose* 81 MG TAB.EC PO SCH (08:36)
[2017-03-28] MEDS ORDERED: Spiriva Inhaler DEVICE* 1 EACH DEVICE INH ONE (09:00)
[2017-03-28 09:31] LABS: EGFR Non-African American 59.5 (>60)
[2017-03-28 09:34] LABS: INR 3.74 (0.77-1.02)
--- NOTE | 2017-03-28 10:58 | PN ---
Subjective Date of Service: 03/28/17 Interval History: [place] [facility] [place] pain. Pt states he has been having chest pain for 3 days intermittently. He denies abdominal pain. Denies pain with exertion. He did state that he has pain in his left arm. Denies nausea or diaphoresis with pain. ROS-denies fever, denies chills, denies abdominal pain, denies nausea, denies vomiting, denies lightheadedness, denies loc, denies chest pain now, review of 11 systems completed all others negative, Objective Active Medications: Acetaminophen (Tylenol Tab*) 650 mg PO Q6H PRN PRN Reason: FEVER/PAIN Albuterol (Ventolin 2.5 Mg/3 Ml Neb.Kika*) 2.5 mg INH Q2H PRN PRN Reason: SOB/WHEEZING Albuterol (Ventolin 2.5 Mg/3 Ml Neb.Kika*) 2.5 mg INH [id number] AWAKE [facility] Last Admin: 03/28/17 09:34 Dose: Not Given Aspirin (Aspirin Ec Low Dose*) 81 mg PO QAM [facility] Last Admin: 03/28/17 08:36 Dose: 81 mg Atorvastatin Calcium (Lipitor*) 10 mg PO DAILY [facility] Last Admin: 03/28/17 08:36 Dose: 10 mg Docusate Sodium (Colace Cap*) 200 mg PO BID [facility] Last Admin: 03/28/17 08:36 Dose: 200 mg Finasteride (Proscar Tab*) 5 mg PO DAILY [facility] Last Admin: 03/28/17 08:35 Dose: 5 mg Furosemide (Lasix Tab*) 40 mg PO BID [facility] Last Admin: 03/28/17 08:36 Dose: 40 mg Sodium Chloride (Ns 0.9% 1000 Ml*) 1,000 mls @ 50 mls/hr IV PER RATE [facility] Last Admin: 03/28/17 06:00 Dose: 50 mls/hr Insulin Glargine (Lantus(*)) 26 units 0.24 units/kg (26 units) SUBCUT 2100 [facility] Stop: 03/29/17 20:00 Insulin Human Lispro (Humalog*) 0 units SUBCUT Q4H [facility] PRN Reason: Protocol Last Admin: 03/28/17 06:38 Dose: Not Given Melatonin (Melatonin (Nf)) 3 mg PO BEDTIME PRN; Protocol PRN Reason: Sleep Metoprolol Tartrate (Lopressor Tab*) 12.5 mg PO Q12HR [facility] Mometasone Furoate/Formoterol Fumar (Dulera 200/5 Mdi*) 2 puff INH BID [facility] Omeprazole (Prilosec Cap*) 20 mg PO DAILY@0600 [facility] Last Admin: 03/28/17 05:14 Dose: Not Given Ondansetron HCl (Zofran Inj*) 4 mg IV Q6H PRN PRN Reason: NAUSEA Senna (Senokot Tab*) 1 tab PO BID [facility] Last Admin: 03/28/17 08:35 Dose: 1 tab Sertraline HCl (Zoloft*) 100 mg PO QAM [facility] Last Admin: 03/28/17 08:35 Dose: 100 mg Tiotropium [place] (Spiriva Cap.Inh*) 1 cap INH DAILY [facility] Vital Signs - 8 hr 03/28/17 03/28/17 04:57 08:26 Temperature 96.7 F Pulse Rate 71 66 Respiratory 16 24 Rate Blood Pressure 103/56 113/52 (mmHg) O2 Sat by Pulse 98 94 Oximetry Oxygen Devices in Use Now: Nasal Cannula Appearance: 81 y/o chronically ill appearing male NAD< Eyes: No Scleral Icterus, PERRLA Ears/Nose/Mouth/Throat: NL Teeth, Lips, Gums Neck: NL Appearance and Movements; NL JVP Respiratory: Symmetrical Chest Expansion and Respiratory Effort Cardiovascular: NL Sounds; No Murmurs; No JVD Abdominal: NL Sounds; No Tenderness; No Distention Extremities: No Edema Skin: No Rash or Ulcers Neurological: Alert and Oriented x 3 Lines/Tubes/Other Access: Clean, Dry and Intact Peripheral IV Result Diagrams: 03/27/17 19:36 03/28/17 08:46 Assess/Plan/Problems-Billing Assessment: 81 y/o male patient presenting [place] [facility] [place] complaints of chest pain. - Patient Problems (1) CAD (coronary artery disease) Current Visit: Yes Status: Acute Priority: High Comment: Trop .04, ekg with LBBB no chest pain now, hx of CAD, pt unsure if cath desired, trops max .05 , on statin, asa, allerigc to nitro will pursue cards consult and add beta placido low dose to maximize medical management, (2) History of CVA (cerebrovascular accident) Current Visit: Yes Status: Acute Priority: High Comment: secondary prevention with asa and statin (3) Afib Current Visit: Yes Status: Acute Priority: High Comment: rate controlled, low dose beta placido added, inr > 3 will hold coumadin tonight (4) CHF (congestive heart failure) Current Visit: Yes Status: Acute Priority: High Comment: Chronic diastolic. Continue above medications and home Lasix. no acitve issues (5) Chest pain Current Visit: Yes Status: Acute Priority: High Comment: Trops max at .05 , cards to see, stress in september intermediate, patient unsure if he would prusue cath, will add beta placido for med management, no chest pain now, cant add nitro due to allergy, cards to see, (6) DVT prophylaxis Current Visit: Yes Status: Acute Priority: High Comment: coumadin inr >3 (7) Diabetes mellitus Current Visit: Yes Status: Acute Priority: High Comment: Sliding scale continue, holding lantus blood sugar low this am, may need to reduce lantus, (8) Full code status Current Visit: Yes Status: Acute Priority: High (9) Hypertension Current Visit: Yes Status: Acute Priority: High SNOMED Code(s): 77649552 Comment: SBP 113, adding low dose beta placido, watch bp carefully, (10) Obesity hypoventilation syndrome Current Visit: Yes Status: Acute Priority: High Comment: Continue home CPAP, (11) BPH (benign prostatic hyperplasia) Current Visit: Yes Status: Chronic Priority: High Comment: Continue home meds, (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 (14) Seizure Current Visit: Yes Status: Chronic Priority: High Onset Date: 12/08/13 Comment: seizure precautions Status and Disposition: Await cardiology consult home when medically stable,
[2017-03-28] MEDS ORDERED: Metoprolol Tartrate TAB* 25 MG PO SCH (11:00)
[2017-03-28] MEDS: Mometasone/Formoter 200/5 MDI INH SCH ×2 (12:40→20:11)
[2017-03-28] MEDS: Tiotropium CAP.INH* CAP.INH/18 MCG (USE ORDER SET !) INH SCH (12:42)
--- NOTE | 2017-03-28 16:48 | CONS ---
CC: Jeremiah Ruano MD, [facility] CARDIOLOGY CONSULTATION: DATE OF CONSULT: 03/28/17 INDICATION: Chest pain, coronary artery disease, coronary artery bypass surgery. HISTORY OF PRESENT ILLNESS: The patient is a 81-year-old gentleman with a history of coronary artery disease, history of coronary artery bypass surgery in 2013, I do not have the operative report assoc iated with that, who came to the emergency room because of chest pain. The patient describes the sunita st pain as squeezing sensation in his chest. He states it sort of squeezes and relax. It happened f or about 10 minutes and then he decided to come to the emergency room. He denied any diaphoresis. H e denied any shortness of breath. He denied any radiation of this discomfort. Since been in the jhoan rgency room in the hospital, he has not had any further discomfort. The patient tells me that he thi nks his chest pain is due to anxiety. He has a roommate that is quite difficult and he associates hi s discomfort without that anxiety. The patient was admitted to the hospital in September of this year. A t that time, he underwent a chemical nuclear stress test. I personally reviewed the images. His nuc lear perfusion looked completely normal, I did not see any evidence of ischemia or infarction. He di d have a calculated ejection fraction of 42%. The patient did have an echocardiogram in March, which showed normal LV function and no significant valvular abnormalities. PAST MEDICAL HISTORY: Quite extensive, he has a history of coronary artery disease, coronary artery bypass surgery; history of CVA; diabetes; paroxysmal atrial fibrillation; COPD; obesity hypoventilati on syndrome; DVT; seizures; BPH; depression. PAST SURGICAL HISTORY: , coronary artery bypass surgery, hernia repair. OUTPATIENT MEDICATIONS: 1. Lasix 40 mg b.i.d. 2. Aspirin 81 mg a day. 3. Albuterol inhaler. 4. Atorvastatin 10 mg a day. 5. Pulmicort inhaler. 6. Finasteride 5 mg a day. 7. Sertraline 100 mg a day. 8. Metformin 500 mg three times a day. 9. Coumadin as directed. ALLERGIES: To NITROGLYCERIN, LEVOFLOXACIN, IV CONTRAST. FAMILY HISTORY: Mother of uterine cancer and father of rectal cancer. SOCIAL HISTORY: He lives with roommate. He is on disability. He denies tobacco or alcohol use. PHYSICAL EXAM: Height is 5 feet 2 inches, weight 231 pounds. He had previously been up over 300 nicholas nds. Temperature 98.1, heart rate is 76, blood pressure 140/77, respiratory rate is 16, oxygen satur ation 97%. Sclerae anicteric. Oropharynx is pink without erythema. He does have a CPAP mask on. Ca rotids are difficult to auscultate. Cardiac Exam: No obvious murmurs, rubs, or gallops. I could no t clearly distinguish S1 and S2. Lungs are clear to auscultation. There is no dullness to percussio n. Abdomen is soft, nontender, nondistended with normoactive bowel sounds. Extremities show 1+ neeru a. He has 2+ pulses in dorsalis pedis and popliteal. The patient is awake, alert, and oriented. He moves all 4 extremities equally. DIAGNOSTIC STUDIES/LAB DATA: CBC within normal limits. Chemistries normal. BUN 26, creatinine 1.18 . AST and ALT are normal. Troponin level 0.03, then 0.04 x2. BNP 144. Chest x-ray was unremarkable. EKG shows normal sinus rhythm with left bundle branch block and unchanged. IMPRESSION AND PLAN: This is a 81-year-old gentleman with a history of coronary artery disease, hist ory of coronary artery bypass surgery, who came to the emergency room with atypical chest pain. The patient has a minimally elevated troponin. In the past admissions, his troponin levels have always b een minimally elevated. The patient never had a troponin level higher than 0.44 since 2016. At this point, I am not convinced that the patient needs a cardiac catheterization. He is on metformi n. He is on Coumadin. He has an IODINE allergy. The patient's last stress test had completely norm al perfusion. My recommendation is to reevaluate the patient's cardiac status with noninvasive testin g. My recommendation is the patient undergo chemical nuclear stress test and an echocardiogram. I d id increase his beta placido slightly during this hospitalization. I would like to get his records f rom his coronary artery bypass surgery in 2013. This case was discussed with Alex Alegria NP. [id number]/[facility] #: [id number]
--- NOTE | 2017-03-28 17:27 | RAD ---
INDICATION: Fall. COMPARISON: Comparison is made with a prior CT of the abdomen and pelvis from March 15, 2014. TECHNIQUE: Contiguous axial sections were obtained through the pelvis without intravenous or oral contrast. Images were reconstructed in the coronal and sagittal planes. FINDINGS: The bones appear osteopenic and in normal alignment. No fracture is seen. There is mild bilateral osteoarthritic change in the hips. No significant enlarged pelvic lymph nodes are seen. The visualized portion of the small bowel and colon appear nondistended. There is moderate sigmoid diverticulosis without evidence for diverticulitis. There is a left inguinal hernia containing fat which is unchanged. There are a couple small bladder diverticuli. No free intraperitoneal air or fluid is seen. IMPRESSION: NO EVIDENCE FOR FRACTURE.
[2017-03-28] MEDS ORDERED: Insulin GLARGINE(*) 1 UNITS UNIT SUBCUT SCH (21:00)
[2017-03-28] MEDS: Metoprolol Tartrate TAB* 25 MG PO SCH (21:35)
[2017-03-29] MEDS: Albuterol 2.5 MG/3 ML NEB.SOL* (0.083%) INH SCH ×2 (01:00→08:38)
[2017-03-29] MEDS: Insulin LISPRO* 1 UNITS UNIT SUBCUT SCH ×6 (02:31→21:53)
[2017-03-29] MEDS: Omeprazole CAP* 20 MG PO SCH (06:02)
[2017-03-29 07:04] LABS: ABS Basophils 0.1 10^3/ul (0-0.2); ABS Eosinophils 0.2 10^3/ul (0-0.6); ABS Lymphocytes 1.2 10^3/ul (1.0-4.8); ABS Monocytes 0.8 10^3/ul (0-0.8); ABS Neutrophils 6.5 10^3/ul (1.5-7.7); ABS Nucleated RBC 0 10^3/ul; Eosinophil % 2.8 % (0-6); Hematocrit 40 % (42-52); Hemoglobin 13.7 g/dl (14.0-18.0); Lymphocyte % 13.2 % (25-47); Mean Corpuscular HGB Conc 35 g/dl (31-36); Mean Corpuscular Hemoglobin 29 pg (27-31); Mean Corpuscular Volume 84 fL (80-94); Mean Platelet Volume 8 um3 (7.4-10.4); Nucleated Red Blood Cells % 0.1; Platelet Count 151 10^3/ul (150-450); Red Blood Count 4.74 10^6/ul (4.0-5.4); Red Cell Distribution Width 15 % (10.5-15); White Blood Count 8.8 10^3/ul (3.5-10.8)
[2017-03-29 07:12] LABS: INR 2.53 (0.77-1.02)
[2017-03-29 07:21] LABS: EGFR Non-African American 44.1 (>60)
[2017-03-29] MEDS: Tiotropium CAP.INH* CAP.INH/18 MCG (USE ORDER SET !) INH SCH (08:38)
[2017-03-29] MEDS: Mometasone/Formoter 200/5 MDI INH SCH ×2 (08:38→20:06)
[2017-03-29] MEDS: Sertraline* 100 MG TAB PO SCH (09:39)
[2017-03-29] MEDS: Furosemide TAB* 40 MG PO SCH ×2 (09:39→21:53)
[2017-03-29] MEDS: Atorvastatin* 10 MG TAB PO SCH (09:39)
[2017-03-29] MEDS: Finasteride TAB* 5 MG PO SCH (09:39)
[2017-03-29] MEDS: Aspirin EC Low Dose* 81 MG TAB.EC PO SCH (09:39)
[2017-03-29] MEDS: Metoprolol Tartrate TAB* 25 MG PO SCH ×2 (09:40→21:53)
[2017-03-29] MEDS: Senna TAB PO SCH ×2 (09:42→21:59)
[2017-03-29] MEDS: Docusate CAP* 100 MG PO SCH ×2 (09:42→21:59)
--- NOTE | 2017-03-29 15:47 | PN ---
Subjective Date of Service: 03/29/17 Interval History: Pt examined today at the bedside. States he is feeling well. Denies chest pain denies sob. Denies lightheadedness. Denies loc, ROS-denies fever, denies chills, denies chest pain, denies sob, denies abdominal pain, denies nausea, denies vomiting, denies lightheadedness, denies loc, review of 11 systems completed all others negative, Objective Active Medications: Acetaminophen (Tylenol Tab*) 650 mg PO Q6H PRN PRN Reason: FEVER/PAIN Albuterol (Ventolin 2.5 Mg/3 Ml Neb.Kika*) 2.5 mg INH Q2H PRN PRN Reason: SOB/WHEEZING Aspirin (Aspirin Ec Low Dose*) 81 mg PO QAM [facility] Last Admin: 03/29/17 09:39 Dose: 81 mg Atorvastatin Calcium (Lipitor*) 10 mg PO DAILY [facility] Last Admin: 03/29/17 09:39 Dose: 10 mg Docusate Sodium (Colace Cap*) 200 mg PO BID [facility] Last Admin: 03/29/17 09:42 Dose: Not Given Finasteride (Proscar Tab*) 5 mg PO DAILY [facility] Last Admin: 03/29/17 09:39 Dose: 5 mg Furosemide (Lasix Tab*) 40 mg PO BID [facility] Last Admin: 03/29/17 09:39 Dose: 40 mg Sodium Chloride (Ns 0.9% 1000 Ml*) 1,000 mls @ 50 mls/hr IV PER RATE [facility] Last Admin: 03/28/17 06:00 Dose: 50 mls/hr Insulin Glargine (Lantus(*)) 26 units 0.24 units/kg (26 units) SUBCUT 2100 [facility] Stop: 03/29/17 20:00 Last Admin: 03/28/17 21:35 Dose: 26 units Insulin Human Lispro (Humalog*) 0 units SUBCUT ACHS [facility] PRN Reason: Protocol Melatonin (Melatonin (Nf)) 3 mg PO BEDTIME PRN; Protocol PRN Reason: Sleep Metoprolol Tartrate (Lopressor Tab*) 25 mg PO Q12HR [facility] Last Admin: 03/29/17 09:40 Dose: 25 mg Mometasone Furoate/Formoterol Fumar (Dulera 200/5 Mdi*) 2 puff INH BID [facility] Last Admin: 03/29/17 08:38 Dose: Not Given Omeprazole (Prilosec Cap*) 20 mg PO DAILY@0600 [facility] Last Admin: 03/29/17 06:02 Dose: 20 mg Ondansetron HCl (Zofran Inj*) 4 mg IV Q6H PRN PRN Reason: NAUSEA Senna (Senokot Tab*) 1 tab PO BID [facility] Last Admin: 03/29/17 09:42 Dose: Not Given Sertraline HCl (Zoloft*) 100 mg PO QAM [facility] Last Admin: 03/29/17 09:39 Dose: 100 mg Tiotropium [place] (Spiriva Cap.Inh*) 1 cap INH DAILY [facility] Last Admin: 03/29/17 08:38 Dose: Not Given Vital Signs - 8 hr 03/29/17 03/29/17 03/29/17 08:00 08:12 08:39 Temperature 98.6 F Pulse Rate 64 Respiratory 20 20 Rate Blood Pressure 133/66 (mmHg) O2 Sat by Pulse 94 96 Oximetry Oxygen Devices in Use Now: Nasal Cannula Appearance: 81 y/o male sitting in chair NAD, Eyes: No Scleral Icterus Ears/Nose/Mouth/Throat: NL Teeth, Lips, Gums, Mucous Membranes Moist Neck: NL Appearance and Movements; NL JVP Respiratory: Symmetrical Chest Expansion and Respiratory Effort, Clear to Auscultation Cardiovascular: NL Sounds; No Murmurs; No JVD Abdominal: NL Sounds; No Tenderness; No Distention Extremities: No Edema Skin: No Rash or Ulcers Neurological: Alert and Oriented x 3 Lines/Tubes/Other Access: Clean, Dry and Intact Peripheral IV Result Diagrams: 03/29/17 06:42 03/29/17 06:42 Assess/Plan/Problems-Billing Assessment: 81 y/o male patient presenting to [facility] [place] with complaints of chest pain. - Patient Problems (1) CAD (coronary artery disease) Current Visit: Yes Status: Acute Priority: High Comment: Trop .04, ekg with LBBB no chest pain now, cards consulted plan for echo and stress test on thursday continue beta placido (2) History of CVA (cerebrovascular accident) Current Visit: Yes Status: Acute Priority: High Comment: secondary prevention with asa and statin (3) Afib Current Visit: Yes Status: Acute Priority: High Comment: rate controlled, low dose beta placido added, inr 2.5 will restart coumadin (4) CHF (congestive heart failure) Current Visit: Yes Status: Acute Priority: High Comment: Chronic diastolic. Continue above medications and home Lasix. no acitve issues (5) Chest pain Current Visit: Yes Status: Acute Priority: High Comment: Trops max at .05 , continue beta placido, plan for echo and stress in am (6) DVT prophylaxis Current Visit: Yes Status: Acute Priority: High Comment: coumadin inr 2.5 will continue coumadin tonight (7) Diabetes mellitus Current Visit: Yes Status: Acute Priority: High Comment: Sliding scale continue, sugars stable now (8) Full code status Current Visit: Yes Status: Acute Priority: High (9) Hypertension Current Visit: Yes Status: Acute Priority: High SNOMED Code(s): 57606334 Comment: stable on beta placido (10) Obesity hypoventilation syndrome Current Visit: Yes Status: Acute Priority: High Comment: Continue home CPAP, (11) BPH (benign prostatic hyperplasia) Current Visit: Yes Status: Chronic Priority: High Comment: Continue home meds, (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 (14) Seizure Current Visit: Yes Status: Chronic Priority: High Onset Date: 12/08/13 Comment: seizure precautions Status and Disposition: stress test tomorrow, if neg patient home tomorrow,
[2017-03-29] MEDS: Warfarin TAB(*) 5 MG PO SCH (16:54)
[2017-03-30] MEDS: Omeprazole CAP* 20 MG PO SCH (05:34)
[2017-03-30 06:16] LABS: ABS Basophils 0.1 10^3/ul (0-0.2); ABS Eosinophils 0.3 10^3/ul (0-0.6); ABS Lymphocytes 1.1 10^3/ul (1.0-4.8); ABS Monocytes 0.6 10^3/ul (0-0.8); ABS Neutrophils 5.6 10^3/ul (1.5-7.7); ABS Nucleated RBC 0 10^3/ul; Eosinophil % 3.8 % (0-6); Hematocrit 40 % (42-52); Hemoglobin 13.9 g/dl (14.0-18.0); Lymphocyte % 14.3 % (25-47); Mean Corpuscular HGB Conc 35 g/dl (31-36); Mean Corpuscular Hemoglobin 29 pg (27-31); Mean Corpuscular Volume 84 fL (80-94); Mean Platelet Volume 8 um3 (7.4-10.4); Nucleated Red Blood Cells % 0.1; Platelet Count 143 10^3/ul (150-450); Red Blood Count 4.81 10^6/ul (4.0-5.4); Red Cell Distribution Width 15 % (10.5-15); White Blood Count 7.6 10^3/ul (3.5-10.8)
[2017-03-30 06:27] LABS: INR 1.67 (0.77-1.02)
[2017-03-30 06:31] LABS: EGFR Non-African American 50.5 (>60)
[2017-03-30] MEDS: Aspirin EC Low Dose* 81 MG TAB.EC PO SCH (08:48)
[2017-03-30] MEDS: Docusate CAP* 100 MG PO SCH ×2 (08:49→20:47)
[2017-03-30] MEDS: Senna TAB PO SCH ×2 (08:49→20:47)
[2017-03-30] MEDS: Sertraline* 100 MG TAB PO SCH (08:49)
[2017-03-30] MEDS: Furosemide TAB* 40 MG PO SCH ×2 (08:49→20:47)
[2017-03-30] MEDS: Finasteride TAB* 5 MG PO SCH (08:49)
[2017-03-30] MEDS: Atorvastatin* 10 MG TAB PO SCH (08:49)
[2017-03-30] MEDS: Tiotropium CAP.INH* CAP.INH/18 MCG (USE ORDER SET !) INH SCH (09:25)
[2017-03-30] MEDS: Mometasone/Formoter 200/5 MDI INH SCH ×2 (09:40→21:06)
[2017-03-30] MEDS ORDERED: Aminophylline IV* 25 MG/ML 10 ML VIAL ONE (10:54)
[2017-03-30] MEDS ORDERED: Regadenoson* 0.4 MG/5 ML SYRINGE ONE (10:54)
[2017-03-30] MEDS: Insulin LISPRO* 1 UNITS UNIT SUBCUT SCH ×4 (11:46→20:47)
--- NOTE | 2017-03-30 12:39 | RAD ---
Edited for charges. INDICATION: Chest pain and shortness of breath with multiple cardiac risk factors. COMPARISON: Similar examination dated October 03, 2016 TECHNIQUE: SPECT imaging was performed. Rest images were acquired following the intravenous injection of 10 millicuries of technetium 99m tetrofosmin at 0625 hours. At 1116 hours stress images were acquired following the intravenous administration of 25 millicuries of technetium 99m tetrofosmin. Evaluation is limited as the patient could not lay flat for CT imaging and therefore attenuation correction was not utilized. The patient received intravenous Lexiscan prior to the stress image acquisition. FINDINGS: There are no defects of the stress-induced or fixed nature. The cardiac chamber size is normal. There are no wall motion abnormalities. The ejection fraction is calculated at 57% during stress. IMPRESSION: No definite scintigraphic evidence of ischemia or infarction on the non attenuated corrected images. ASSESSMENT: Low risk Based on imaging criteria from ACC/AHA 2002 Guideline Update for the Management of Patients With Chronic Stable Angina Table 23. Noninvasive Risk Stratification. MTDD
[2017-03-30] MEDS: Metoprolol Tartrate TAB* 25 MG PO SCH ×2 (13:55→20:47)
[2017-03-30] MEDS ORDERED: Perflutren Lipid Microsphere* 3 ML VIAL ONE (14:14)
--- NOTE | 2017-03-30 15:44 | ECHO ---
Patient: MONSTER HENDERSON [facility] Rec#: [id number] : 1935 Date: 03/30/2017 Age: 81y Height: 157.48 cm / 62.0 in Weight: 104.78 kg / 230.9 lbs Sex: M BSA: 2.03 Room#: 452 Admit Date#: 03/28/2017 Type: Inpatient Referring: Kali Chapman MD Reading: Kali Chapman MD Patient Safety Sitter: Meghan Puente [facility] Patient Safety Sitter: Kali Chapman MD CC: Jeremiah Ruano MD Transthoracic Echocardiogram Indication: CAD/CP BP: 137/43 HR: 91 Rhythm: NSR with PACs Findings History: CAD,s/p CABG,CVA,DM,morbid obesity,COPD,PAF. Technical Comments: The study is technically difficult. Definity used to enhance images. The study is technically limited due to patient body habitus. The study is technically limited due to the patient's history of COPD. The study was technically limited due to the patient's inability to lay in the left lateral decubitus position. Patient requested to sit on the edge of the bed for this test. Left Ventricle: The left ventricular chamber size is normal. Septal wall hypertrophy is observed. Left ventricular systolic function is at the lower limits of normal. The estimated ejection fraction is 50-55%. Abnormal left ventricular diastolic function is observed. Left Atrium: The left atrial chamber size is normal. Right Ventricle: The right ventricle is not well visualized. The right ventricular global systolic function is normal. Right Atrium: The right atrium is not well visualized. Aortic Valve: The aortic valve structure is not well visualized. Mitral Valve: The mitral valve structure is not well visualized. Tricuspid Valve: The tricuspid valve structure is not well visualized. Pulmonic Valve: The pulmonic valve structure is not well visualized. Pericardium: A pericardial fat pad is visualized. Aorta: There is mild dilatation of the ascending aorta. The aortic arch is not well visualized. There is no dilation of the aortic root. Pulmonary Artery: The main pulmonary artery is not well visualized. Venous: The venous system is not well visualized. Contrast: Definity was used to optimize study. A total of 4 ml. used. Intravenous contrast was used to enhance endocardial border definition. Conclusions The study is technically difficult. Definity used to enhance images. Septal wall hypertrophy is observed. Left ventricular systolic function is at the lower limits of normal. The estimated ejection fraction is 50-55%. Septal wall hypertrophy is observed. The right ventricular global systolic function is normal. The aortic valve structure is not well visualized. The mitral valve structure is not well visualized. The tricuspid valve structure is not well visualized. There is mild dilatation of the ascending aorta. Measurements Name Value Normal Range RVIDd (AP) 2D 2.7 cm (0.9 - 2.6) IVSd (2D) 1.1 cm (0.6 - 1) LVPWd (2D) 1 cm (0.6 - 1) LVIDd (2D) 4.9 cm (3.6 - 5.4) LVIDs (2D) 3.5 cm - LV FS (2D) 29 % (25 - 45) Aortic Annulus 2.1 cm (1.4 - 2.6) Ao root diameter (2D) 3.3 cm (2.1 - 3.5) Ascending Ao 3.6 cm (2.1 - 3.4) Name Value Normal Range MV E-wave Vmax 1.2 m/sec - MV deceleration time 307 msec - MV A-wave Vmax 1.2 m/sec - MV E:A ratio 1.06 ratio - LV septal e' Vmax 0.05 m/sec - LV lateral e' Vmax 0.09 m/sec - LV E:e' septal ratio 24 ratio - LV E:e' lateral ratio 13.33 ratio - Name Value Normal Range AV Vmax 1.3 m/sec - AV VTI 19.1 cm - AV peak gradient 6.86 mmHg - AV mean gradient 2.5 mmHg - LVOT Vmax 0.6 m/sec - LVOT VTI 10.7 cm - LVOT peak gradient 1.47 mmHg - LVOT mean gradient 0.52 mmHg -
[2017-03-30] MEDS: Warfarin TAB(*) 5 MG PO SCH (17:50)
--- NOTE | 2017-03-30 22:56 | PN ---
Subjective Date of Service: 03/30/17 Interval History: no complaints, examined patient at the bedside, Denies chest pain or abd pain. C/o mild shortness of breath Denies N/V/D Family History: Unchanged from Admission Social History: Unchanged from Admission Past Medical History: Unchanged from Admission Objective Active Medications: Acetaminophen (Tylenol Tab*) 650 mg PO Q6H PRN PRN Reason: FEVER/PAIN Albuterol (Ventolin 2.5 Mg/3 Ml Neb.Kika*) 2.5 mg INH Q2H PRN PRN Reason: SOB/WHEEZING Aspirin (Aspirin Ec Low Dose*) 81 mg PO QAM [facility] Last Admin: 03/30/17 08:48 Dose: 81 mg Atorvastatin Calcium (Lipitor*) 10 mg PO DAILY [facility] Last Admin: 03/30/17 08:49 Dose: 10 mg Docusate Sodium (Colace Cap*) 200 mg PO BID [facility] Last Admin: 03/30/17 20:47 Dose: 200 mg Finasteride (Proscar Tab*) 5 mg PO DAILY [facility] Last Admin: 03/30/17 08:49 Dose: 5 mg Furosemide (Lasix Tab*) 40 mg PO BID [facility] Last Admin: 03/30/17 20:47 Dose: 40 mg Insulin Human Lispro (Humalog*) 0 units SUBCUT ACHS [facility] PRN Reason: Protocol Last Admin: 03/30/17 20:47 Dose: 9 units Melatonin (Melatonin (Nf)) 3 mg PO BEDTIME PRN; Protocol PRN Reason: Sleep Metoprolol Tartrate (Lopressor Tab*) 25 mg PO Q12HR [facility] Last Admin: 03/30/17 20:47 Dose: 25 mg Mometasone Furoate/Formoterol Fumar (Dulera 200/5 Mdi*) 2 puff INH BID [facility] Last Admin: 03/30/17 21:06 Dose: 2 puff Omeprazole (Prilosec Cap*) 20 mg PO DAILY@0600 [facility] Last Admin: 03/30/17 05:34 Dose: Not Given Ondansetron HCl (Zofran Inj*) 4 mg IV Q6H PRN PRN Reason: NAUSEA Pharmacy Profile Note (Coumadin Daily Reminder*) 0 note FOLLOW UP 1700 [facility] Last Admin: 03/30/17 18:17 Dose: 1 note Senna (Senokot Tab*) 1 tab PO BID [facility] Last Admin: 03/30/17 20:47 Dose: 1 tab Sertraline HCl (Zoloft*) 100 mg PO QAM [facility] Last Admin: 03/30/17 08:49 Dose: 100 mg Tiotropium [place] (Spiriva Cap.Inh*) 1 cap INH DAILY [facility] Last Admin: 03/30/17 09:25 Dose: 1 cap Warfarin Sodium (Coumadin Tab(*)) 5 mg PO DAILY@1700 [facility] PRN Reason: Protocol Last Admin: 03/30/17 17:50 Dose: 5 mg Vital Signs - 8 hr 03/30/17 03/30/17 03/30/17 15:54 16:49 19:59 Temperature 97.5 F 97.7 F Pulse Rate 55 58 Respiratory 16 16 Rate Blood Pressure 150/117 150/77 (mmHg) O2 Sat by Pulse 98 94 Oximetry Oxygen Devices in Use Now: Nasal Cannula Eyes: No Scleral Icterus Ears/Nose/Mouth/Throat: Clear Oropharnyx, Mucous Membranes Moist Neck: NL Appearance and Movements; NL JVP, Trachea Midline Respiratory: Symmetrical Chest Expansion and Respiratory Effort, Clear to Auscultation, - - diminished t/o bilaterally Cardiovascular: NL Sounds; No Murmurs; No JVD, RRR, No Edema Abdominal: NL Sounds; No Tenderness; No Distention Extremities: No Edema, No Clubbing, Cyanosis Skin: No Rash or Ulcers Neurological: Alert and Oriented x 3 Nutrition: Taking PO's Result Diagrams: 03/30/17 05:58 03/30/17 05:58 Assess/Plan/Problems-Billing Assessment: 81 y/o male patient presenting to the [facility] [place] with complaints of chest pain. - Patient Problems (1) Afib Current Visit: Yes Status: Acute Priority: High Code(s): I48.91 - UNSPECIFIED ATRIAL FIBRILLATION SNOMED Code(s): 07690648 Comment: rate controlled, low dose beta placido added, inr 1.67 on coumadin (2) CAD (coronary artery disease) Current Visit: Yes Status: Acute Priority: High Code(s): I25.10 - ATHSCL HEART DISEASE OF [place] CORONARY ARTERY W/O ANG PCTRS SNOMED Code(s): 83688960 Comment: Trop .04, ekg with LBBB no chest pain now, cards consulted plan for echo and stress test on thursday continue beta placido Stress test WNL Echo normal Will discahrge in the AM- patient does not have care at home tonight (3) Chest pain Current Visit: Yes Status: Acute Priority: High Onset Date: 11/05/13 Code(s): R07.9 - CHEST PAIN, UNSPECIFIED SNOMED Code(s): 74602475 Comment: Trops max at .05, continue beta placido, plan for echo and stress in am Stress test negative echo normal (4) DVT prophylaxis Current Visit: Yes Status: Acute Priority: High Code(s): PER7274 - SNOMED Code(s): 002090169 Comment: coumadin inr 1.67 will continue coumadin tonight (5) Diabetes mellitus Current Visit: Yes Status: Acute Priority: High Code(s): E11.9 - TYPE 2 DIABETES MELLITUS WITHOUT COMPLICATIONS SNOMED Code(s): 24784195 Comment: Sliding scale continue, sugars stable now (6) Full code status Current Visit: Yes Status: Acute Priority: High Code(s): Z78.9 - OTHER SPECIFIED HEALTH STATUS SNOMED Code(s): 804471085 (7) History of CVA (cerebrovascular accident) Current Visit: Yes Status: Acute Priority: High Code(s): Z86.73 - PRSNL HX OF TIA (TIA), AND CEREB INFRC W/O RESID DEFICITS SNOMED Code(s): 221623937 Comment: secondary prevention with asa and statin Status and Disposition: stress test today, Stress was negative will discharge in the AM
[2017-03-31] MEDS: Omeprazole CAP* 20 MG PO SCH (05:24)
[2017-03-31 08:17] LABS: INR 1.52 (0.77-1.02)
[2017-03-31] MEDS: Finasteride TAB* 5 MG PO SCH (08:29)
[2017-03-31] MEDS: Atorvastatin* 10 MG TAB PO SCH (08:29)
[2017-03-31] MEDS: Insulin LISPRO* 1 UNITS UNIT SUBCUT SCH (08:29)
[2017-03-31] MEDS: Docusate CAP* 100 MG PO SCH (08:29)
[2017-03-31] MEDS: Metoprolol Tartrate TAB* 25 MG PO SCH (08:29)
[2017-03-31] MEDS: Senna TAB PO SCH (08:29)
[2017-03-31] MEDS: Sertraline* 100 MG TAB PO SCH (08:30)
[2017-03-31] MEDS: Aspirin EC Low Dose* 81 MG TAB.EC PO SCH (08:30)
[2017-03-31] MEDS: Furosemide TAB* 40 MG PO SCH (08:30)
[2017-03-31 08:39] VITALS: BP 139/92
[2017-03-31] MEDS: Tiotropium CAP.INH* CAP.INH/18 MCG (USE ORDER SET !) INH SCH (08:46)
[2017-03-31] MEDS: Mometasone/Formoter 200/5 MDI INH SCH (08:46)
--- NOTE | 2017-03-31 17:10 | PN ---
Subjective Date of Service: 03/31/17 Interval History: no complaints , sitting in chair , o2 on via NC, Denies SOB, CP or ABD pain. Denies N/V/D. Family History: Unchanged from Admission Social History: Unchanged from Admission Past Medical History: Unchanged from Admission Objective Oxygen Devices in Use Now: Nasal Cannula Appearance: appears comfortable, breathing at baseline Eyes: No Scleral Icterus Ears/Nose/Mouth/Throat: Clear Oropharnyx, Mucous Membranes Moist Neck: NL Appearance and Movements; NL JVP, Trachea Midline Respiratory: Symmetrical Chest Expansion and Respiratory Effort, Clear to Auscultation, - - diminished in the bases bilat Abdominal: NL Sounds; No Tenderness; No Distention Extremities: No Edema, No Clubbing, Cyanosis Skin: No Rash or Ulcers Neurological: Alert and Oriented x 3, NL Muscle Strength and Tone Nutrition: Taking PO's Result Diagrams: 03/30/17 05:58 03/30/17 05:58 Assess/Plan/Problems-Billing Assessment: 81 y/o male patient presenting to [facility] [place] with complaints of chest pain. stress test was negative, will discharge home. - Patient Problems (1) Afib Status: Acute Priority: High Code(s): I48.91 - UNSPECIFIED ATRIAL FIBRILLATION SNOMED Code(s): 23715290 Comment: rate controlled, low dose beta placido added, inr 1.67 on coumadin (2) CAD (coronary artery disease) Status: Acute Priority: High Code(s): I25.10 - ATHSCL HEART DISEASE OF [place] CORONARY ARTERY W/O ANG PCTRS SNOMED Code(s): 23557764 Comment: Trop .04, ekg with LBBB no chest pain now, cards consulted plan for echo and stress test on thursday continue beta placido Stress test WNL Echo normal Will discahrge in the AM- patient does not have care at home tonight (3) Chest pain Status: Acute Priority: High Onset Date: 11/05/13 Code(s): R07.9 - CHEST PAIN, UNSPECIFIED SNOMED Code(s): 67687128 Comment: Trops max at .05, continue beta placido, plan for echo and stress in am Stress test negative echo normal (4) DVT prophylaxis Status: Acute Priority: High Code(s): EXK1414 - SNOMED Code(s): 396171012 Comment: coumadin inr 1.67 will continue coumadin tonight (5) Diabetes mellitus Status: Acute Priority: High Code(s): E11.9 - TYPE 2 DIABETES MELLITUS WITHOUT COMPLICATIONS SNOMED Code(s): 35295620 Comment: Sliding scale continue, sugars stable now (6) Full code status Status: Acute Priority: High Code(s): Z78.9 - OTHER SPECIFIED HEALTH STATUS SNOMED Code(s): 327362505 (7) History of CVA (cerebrovascular accident) Status: Acute Priority: High Code(s): Z86.73 - PRSNL HX OF TIA (TIA), AND CEREB INFRC W/O RESID DEFICITS SNOMED Code(s): 562160983 Comment: secondary prevention with asa and statin Status and Disposition: stress test today, Stress was negative will discharge in the AM
--- NOTE | 2017-04-01 14:22 | DS ---
CC: Dr. Ruano * DISCHARGE SUMMARY: DATE OF ADMISSION: 03/27/17 DATE OF DISCHARGE: 03/31/17 PROVIDER: Gaby Howell NP ATTENDING PHYSICIAN: Dr. Katja Burroughs * (dictation provided by Gaby Howell NP PRIMARY CARE PROVIDER: Jeremiah Ruano MD PRIMARY DIAGNOSIS: Chest pain. SECONDARY DIAGNOSES: 1. Coronary artery disease/myocardial infarction. 2. Cerebrovascular accident. 3. Diabetes type 2. 4. Paroxysmal atrial fibrillation. 5. Hypertension. 6. Chronic obstructive pulmonary disease. 7. Tracheomalacia. 8. Obstructive sleep apnea. 9. Obesity hypoventilation syndrome. 10. History of DVT. 11. Seizure disorder. 12. Benign prostatic hyperplasia. 13. Depression. STUDIES WHILE IN THE HOSPITAL: He had a chest x-ray on 03/27/17. Impression: Probable mild interstitial edema, increased elevation of the right hemidiaphragm with proportional bibasilar atelectasis. He had transthoracic echocardiogram on 03/28/17. The study was technically difficult. Definity was used to enhance the images. Septal wall hypertrophy is observed. Left ventricle systolic function is at lower limits of normal. Estimated ejection fraction is 50% to 55%, septal wall hypertrophy was observed. The patient's right ventricle global systolic function was normal, aortic valve structure was not well visualized and mitral valve structure was not visualized. Tricuspid valve was not visualized. There is mild dilation of the ascending aorta. He also had a nuclear stress test during this visit. Impression: No definite centric evidence of ischemia or infarction on the non-attenuated corrected images. Assessment: Low risk based on imaging criteria from the CC[facility] AHA 2002 guideline update for management of patient's chronic stable angina table 23, noninvasive risk stratification. DISCHARGE MEDICATIONS: New medication will be metoprolol 25 mg p.o. b.i.d. Continued home medications: 1. Ciprofloxacin ear drops daily. 2. Lubricant eye drops to both eyes b.i.d. as needed. 3. Pulmicort neb 0.5 b.i.d. 4. Atorvastatin 10 mg p.o. daily. 5. Aspirin 81 mg p.o. daily. 6. Albuterol HFA 2 puffs q.4 hours as needed. 7. Albuterol nebulizer 2.5 mg q.4 hours as needed. 8. Acetaminophen 650 mg p.o. q.4 hours as needed. 9. Sertraline 100 mg p.o. daily. 10. Senokot 17 mg p.o. b.i.d. 11. Nystatin cream topically 3 times a day as needed. 12. Lantus 35 units subcu b.i.d. 13. Furosemide 40 mg p.o. b.i.d. 14. Proscar 5 mg p.o. daily. 15. Vitamin D 2000 units q.a.m. 16. Coumadin 6 mg p.o. Thursday, Thursday, Thursday, , Thursday, Thursday. 17. Coumadin 9 mg p.o. on Thursday. 18. Metformin 500 mg p.o. daily with meals. HOSPITAL COURSE/HISTORY OF PRESENT ILLNESS: Mr. Escamilla is a 81-year-old male that is morbidly obese. He has a history of coronary artery disease, CVA, type 2 diabetes and hypertension who was at a CAT call in the hospital cafeteria on 03/24/17, but signed out of the ER AMA because he was angry for having to wait so long to be seen. Since he has had nearly continuous, only 1 to 2 minutes without pain occasionally per patient, cramping of the left chest radiating into left arm associated with shortness of breath, nausea without emesis and lightheadedness. Denies cough or congestion or recent injury. The patient saw his PCP in the interval who pleaded with him to get evaluated for further symptoms. During his hospital stay, he had a chest x-ray with probable mild interstitial edema, increased elevation of the right hemidiaphragm with proportional bibasilar atelectasis. He had a nuclear stress test completed while in the hospital that was negative. He was at low risk. He was given breathing treatments and supplemental oxygen, which he chronically wears 2 L at home. Given the fact Mr. Escamilla's chest pain was evaluated and Cardiology was consulted, he had a negative nuclear stress test, his echocardiogram was also negative, Cardiology recommendations were to continue metoprolol 25 mg p.o. b.i.d. At this time, Mr. Escamilla is stable for discharge home. Mr. Escamilla is stable for discharge home today. Vital signs are as follows: Temp was 98.3, blood pressure 139/92, heart rate was 60, respirations were 24, O2 sat was 99% on 3 L. DISCHARGE PLAN: Mr. Escamilla will be discharged back home today. Activity as tolerated. He should continue on a low sodium heart-healthy diet. He will be placed on metoprolol 25 mg p.o. b.i.d. He is to follow up with his primary care provider Dr. Jeremiah Ruano in 4 to 7 days. The patient was asked to return to the emergency room for any increased chest pain or shortness of breath. This is a summary of his medical stay. For further details, please see the entire medical record. TIME SPENT: Time spent on this discharge is approximately 60 minutes; greater than half the time was spent with the patient discussing discharge plans and giving instructions. CONDITION ON DISCHARGE: Stable. GABY HOWELL NP [id number]/[facility] #: [id number] [place]
--- NOTE | 2017-04-05 20:41 | ED ---
hCepe Mack Abhishek, scribed for Aster Juarez MD on 03/27/17 at 1939 . HPI Chest Pain - HPI Summary HPI Summary: This patient is a 81 year old M BIBA with a chief complaint of CP since 2 days ago. Pertinent PMHx includes 3 separate MIs, COPD, CHF and CAD. The pt states that his breathing has been worse today. The patient rates the pain 4/10 in severity. Symptoms aggravated by nothing. Symptoms alleviated by nothing Patient reports difficulty breathing, left arm went numb, diaphoresis and bruising in the abd. Patient denies vomiting. * - History of Current Complaint Chief Complaint: EDChestPainROMI Time Seen by Provider: 03/27/17 19:20 Hx Obtained From: Patient Onset/Duration: Started Days Ago - two days ago, Still Present, Worse Since - today Initial Severity: Moderate Current Severity: Moderate Pain Intensity: 4 Pain Scale Used: 0-10 Numeric Chest Pain Location: Mid Sternal Aggravating Factor(s): Nothing Alleviating Factor(s): Nothing Associated Signs and Symptoms: Positive: Chest Pain, Numbness - left arm, Diaphoresis, Other: - difficulty breathing. Negative: Vomiting - Additional Pertinent History Primary Care Physician: [id number] - Allergy/Home Medications Allergies/Adverse Reactions: Allergies Allergy/AdvReac Type Severity Reaction Status Date / Time Nitroglycerin Allergy Severe Anaphylactic Verified 03/27/17 19:18 Shock Levofloxacin [From Levaquin] Allergy Intermediate Itching Verified 03/27/17 19: 18 Iodinated Contrast Media AdvReac Severe Altered Verified 03/27/17 19:18 [IV CONTRAST DYE] Mental Status PMH/Surg Hx/FS Hx/Imm Hx Endocrine/Hematology History: Reports: Hx Anticoagulant Therapy, Hx Blood Transfusions, Hx Diabetes, Hx Anemia Denies: Hx Blood Disorders, Hx Bone Marrow Disease, Hx Systemic Lupus Erythematosus, Hx Sickle Cell Disease, Hx Thyroid Disease, Hx Unexplained Bleeding Cardiovascular History: Reports: Hx Angina, Hx Angioplasty, Hx Cardiac Arrest - 03/05/14, Hx Congestive Heart Failure, Hx Coronary Artery Disease, Hx Deep Vein Thrombosis, Hx Hypercholesterolemia, Hx Hypertension, Hx Myocardial Infarction, Hx Syncope, Hx Valvular Heart Disease Denies: Hx Aneurysm, Hx Auto Implanted Cardiovert Defib, Hx Cardiomegaly, Hx Congenital Heart Disease, Hx Hypotension, Hx Pacemaker/ICD, Hx Peripheral Vascular Disease, Hx Rheumatic Fever, Other Cardiovascular Problems/Disorders Respiratory History: Reports: Hx Chronic Bronchitis, Hx Chronic Obstructive Pulmonary Disease (COPD), Hx Pleural Effusion, Hx Pneumonia, Hx Pulmonary Edema , Hx Sleep Apnea - CPAP, Other Respiratory Problems/Disorders - Bronchitis Denies: Hx Asthma, Hx Cystic Fibrosis, Hx Lung Cancer, Hx Pulmonary Embolism , Hx Seasonal Allergies GI History: Reports: Hx Gastroesophageal Reflux Disease, Hx Hiatal Hernia, Hx Obstructive Bowel Denies: Hx Cirrhosis, Hx Crohn's Disease, Hx Diverticulosis, Hx Gall Bladder Disease, Hx Gastrointestinal Bleed, Hx Irritable Bowel, Hx Jaundice, Hx Ileostomy, Hx Pyloric Stenosis, Hx Ulcer, Other GI Disorders History: Reports: Hx Benign Prostatic Hyperplasia, Hx Kidney Infection Denies: Hx Acute Renal Failure, Hx Chronic Renal Failure, Hx Dialysis, Hx Kidney Stones, Other Problems/Disorders Musculoskeletal History: Reports: Hx Arthritis, Hx Back Problems, Other Musculoskeletal History - BLE weakness hx CVA, uses scooter at home Denies: Hx Bursitis, Hx Congenital Bone Abnormalities, Hx Fibromyalgia, Hx Gout, Hx Orthopedic Injury, Hx Osteoporosis, Hx Scoliosis, Hx Tendonitis Sensory History: Reports: Hx Cataracts - due for sx, Hx Contacts or Glasses, Hx Vision Problem, Hx Hearing Problem Denies: Hx Eye Injury, Hx Eye Prosthesis, Hx Glaucoma, Hx Legally Blind, Hx Macular Degeneration, Hx Deafness, Hx Hearing Aid, Other Sensory Impairments Opthamlomology History: Reports: Hx Cataracts - due for sx, Hx Contacts or Glasses, Hx Vision Problem Denies: Hx Eye Injury, Hx Eye Prosthesis, Hx Glaucoma, Hx Legally Blind, Hx Macular Degeneration, Other Sensory Impairments Neurological History: Reports: Hx Seizures, Hx Transient Ischemic Attacks (TIA) Denies: Hx Dementia, Hx Developmental Delay, Hx Headaches, Hx Migraine, Hx Nerve Disease, Hx Spinal Cord Injury, Other Neuro Impairments/Disorders Psychiatric History: Reports: Hx Anxiety, Hx Depression - He thinks about the of his and son often., Hx Post Traumatic Stress Disorder, Other Psychiatric Issues/Disorders - Had one episode of emotional shock, but no depression etc since. Denies: Hx Attention Deficit Hyperactivity Disorder, Hx Eating Disorder, Hx Panic Disorder, Hx Inpatient Treatment, Hx Community Mental Health Tx, Hx Schizophrenia, Hx Bipolar Disorder, Hx Suicide Attempt, Hx of Violent Episodes Against Others, Hx Substance Abuse - Cancer History Cancer Type, Location and Year: Skin cancer on scalp - Surgical History Surgery Procedure, Year, and Place: Bypass 2008. hernia 1957. left shoulder sx in [place] in 1965. CABG. 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 Denies: Hx Clostridium Difficile, Hx Hepatitis, Hx Human Immunodeficiency Virus (HIV), Hx Shingles, Hx Tuberculosis, Hx Known/Suspected VRE, History Other Infectious Disease, Traveled Outside the [place] in Last 30 Days - Family History Known Family History: Positive: Cardiac Disease, Diabetes, Other - uterine CA, colon CA - Social History Occupation: Retired Alcohol Use: None Hx Substance Use: No Substance Use Type: Reports: None Hx Tobacco Use: No Smoking Status (MU): Never Smoked Tobacco Have You Smoked in the Last Year: No Review of Systems Constitutional: Negative Eyes: Negative ENT: Negative Positive: Chest Pain - mid sternal Respiratory: Other - difficulty breathing Negative: Vomiting Genitourinary: Negative Musculoskeletal: Negative Skin: Negative Positive: Numbness - left arm Psychological: Normal All Other Systems Reviewed And Are Negative: Yes Physical Exam - Summary Physical Exam Summary: VITAL SIGNS: Reviewed. GENERAL: Morbidly obese HEAD AND FACE: No signs of trauma. No ecchymosis, hematomas or skull depressions. No sinus tenderness. EYES: PERRLA, EOMI x 2, No injected conjunctiva, no nystagmus. EARS: Hearing grossly intact. Ear canals and tympanic membranes are within normal limits. MOUTH: Oropharynx within normal limits. NECK: Supple, trachea is midline, no adenopathy, no JVD, no carotid bruit, no c- spine tenderness, neck with full ROM. CHEST: Symmetric, no tenderness at palpation LUNGS:decreased breath sounds bilaterally CVS: Regular rate and rhythm, S1 and S2 present, no murmurs or gallops appreciated. ABDOMEN: Abd has distension. no tenderness., No rebound no guarding, and no masses palpated. Bowel sounds are normal. EXTREMITIES: FROM in all major joints, no edema, no cyanosis or clubbing. NEURO: Alert and oriented x 3. No acute neurological deficits. Speech is normal and follows commands. SKIN: Dry and warm Triage Information Reviewed: Yes Vital Signs On Initial Exam: Initial Vitals Temp Pulse Resp BP Pulse Ox 97.7 F 75 19 99/49 97 03/27/17 19:17 03/27/17 19:17 03/27/17 19:17 03/27/17 19:17 03/27/17 19:17 Vital Signs Reviewed: Yes Diagnostics - Vital Signs Vital Signs Temp Pulse Resp BP Pulse Ox 03/27/17 19:17 97.7 F 75 19 99/49 97 - Laboratory Result Diagrams: 03/27/17 19:36 03/27/17 20:24 Lab Statement: Any lab studies that have been ordered have been reviewed, and results considered in the medical decision making process. - Radiology Chest X-ray Xray Interpretation: - Chest X-ray Radiology Interpretation Completed By: Radiologist - CXR reveals, per ED Physician, Probable mild interstitial edema. Increased elevation of the RIGHT hemidiaphragm with proportional basilar atelectasis. ED physician has reviewed this radiology report and agrees. - EKG 1922 EKG Rhythm: Sinus Rhythm - 71 bpm EKG Interpretation: 1st degree AV block and LBBB that is old Re-Evaluation - Re-Evaluation 2118 Re-Evaluation Time: 21:19 Comment: The pt is feeling slightly better. Chest Pain Course/Dx - Course Course Of Treatment: [facility] with a chief complaint of CP. The pt has a hx of CAD and COPD. We discussed patient care with at 2124 and he accepts patient care. Upon reevaluation, the patient is feeling slightly better. The pt will be admitted to the [facility] [place] for further evaluation. The dx will be chest pain and COPD. - Diagnoses Provider Diagnoses: Chest pain, COPD (chronic obstructive pulmonary disease) - Provider Notifications Discussed Care Of Patient With: Fredy Root - we discussed patient care. Time Discussed With Above Provider: 21:25 Instructed by Provider To: Admit As Observation Discharge - Discharge Plan Condition: Stable Disposition: ADMITTED TO [facility] Referrals: Jeremiah Ruano MD [Primary Care Provider] - The documentation as recorded by the Chepe couch Abhishek accurately reflects the service I personally performed and the decisions made by me, Aster Juarez MD.
== END 2017-03-31 11:35 | disposition home or self-care (01) | DRG 313 ==
LOC: ED 19:15 → MEDTELE 21:25 → OBSVTOIN 03-29 17:05
PROVIDERS: ADMIT Hospitalist; ATTEND Internal Medicine
PROC: 5A09457 Assistance with Respiratory Ventilation, 24-96 Consecutive Hours, Continuous Positive Airway Pressure (ICD-10-PCS; principal; 2017-03-30)
PROC: 4A12XM4 Monitoring of Cardiac Stress, External Approach (ICD-10-PCS; 2017-03-30)
DX: R07.89 Other chest pain (principal); I25.10 Atherosclerotic heart disease of native coronary artery without angina pectoris; E66.2 Morbid (severe) obesity with alveolar hypoventilation; I48.0 Paroxysmal atrial fibrillation; G40.909 Epilepsy, unspecified, not intractable, without status epilepticus; I50.32 Chronic diastolic (congestive) heart failure; I11.0 Hypertensive heart disease with heart failure; Z99.81 Dependence on supplemental oxygen; J39.8 Other specified diseases of upper respiratory tract; Z68.41 Body mass index [BMI] 40.0-44.9, adult; J98.11 Atelectasis; E11.9 Type 2 diabetes mellitus without complications; F32.9 Major depressive disorder, single episode, unspecified; G47.33 Obstructive sleep apnea (adult) (pediatric); J44.9 Chronic obstructive pulmonary disease, unspecified; I10 Essential (primary) hypertension; N40.0 Benign prostatic hyperplasia without lower urinary tract symptoms; T45.515A Adverse effect of anticoagulants, initial encounter; I44.7 Left bundle-branch block, unspecified; F41.9 Anxiety disorder, unspecified; Z79.82 Long term (current) use of aspirin; Z79.4 Long term (current) use of insulin; Z86.73 Personal history of transient ischemic attack (TIA), and cerebral infarction without residual deficits; I25.2 Old myocardial infarction; Z86.718 Personal history of other venous thrombosis and embolism; Z88.8 Allergy status to other drugs, medicaments and biological substances; Z88.1 Allergy status to other antibiotic agents; Z91.041 Radiographic dye allergy status; Z95.1 Presence of aortocoronary bypass graft; Z80.49 Family history of malignant neoplasm of other genital organs; Z80.0 Family history of malignant neoplasm of digestive organs; Y92.9 Unspecified place or not applicable; Z79.01 Long term (current) use of anticoagulants
CPT/HCPCS: 36415; 71045; 72192; 78452; 80048; 80053; 83036; 83735; 83880; 84484; 85025; 85610; 85730; 93005; 93017; 93306; 94640; 94660; 94760; 96374; 99284; A9270-GY; A9502; C8929; G0378; J0280; J2785

== ENCOUNTER 2017-04-30 17:40 | Inpatient (IN) | payer OTHER ==
--- NOTE | 2017-04-30 19:45 | RAD ---
HISTORY: Shortness of breath COMPARISONS: March 27, 2017 VIEWS: 2: Frontal and lateral views of the chest. FINDINGS: CARDIOMEDIASTINAL SILHOUETTE: The cardiac silhouette is enlarged. A prosthetic cardiac valve is noted.. DAQUAN: The daquan are normal. PLEURA: The costophrenic angles are sharp. No pleural abnormalities are noted. There is elevation of the right hemidiaphragm, stable. LUNG PARENCHYMA: There is a diffuse reticular pattern with indistinct pulmonary vessels. There is patchy alveolar opacification of the right mid and lower lung. ABDOMEN: The upper abdomen is clear. There is no subphrenic gas. BONES AND SOFT TISSUES: The patient is status post median sternotomy. OTHER: None. IMPRESSION: 1. CARDIOMEGALY. 2. PULMONARY INTERSTITIAL EDEMA. 3. PATCHY AIRSPACE DISEASE OF THE RIGHT MID AND LOWER LUNG WHICH MAY INDICATE SUPERIMPOSED PNEUMONIC CONSOLIDATION OR PULMONARY ALVEOLAR EDEMA. RECOMMEND FOLLOW-UP UNTIL RESOLUTION TO EXCLUDE UNDERLYING PULMONARY PARENCHYMAL PATHOLOGY.
[2017-04-30] MEDS ORDERED: Levofloxacin 750 MG IVPREMIX(* 750 MG/150 ML BAG IVPB ONE (20:17)
[2017-04-30] MEDS ORDERED: NS 0.9% 1000 ML* 1,000 ML IV ONE (20:17)
[2017-04-30] MEDS ORDERED: Albuterol/Ipratropium NEB.SOL* Albuterol 2.5 MG/Ipratropium 0.5 MG 3 ML INH ONE (20:18)
[2017-04-30] MEDS ORDERED: methylPREDNISolone 125 MG* 2 ML VIAL IV ONE (20:19)
[2017-04-30] MEDS ORDERED: Magnesium Sulfate 2 GM IV* 2 GM/50 ML BAG IVPB ONE (20:19)
[2017-04-30] MEDS: Albuterol 2.5 MG/3 ML NEB.SOL* (0.083%) INH SCH (20:43)
[2017-04-30 21:36] LABS: ABS Basophils 0.1 10^3/ul (0-0.2); ABS Eosinophils 0.1 10^3/ul (0-0.6); ABS Lymphocytes 1.3 10^3/ul (1.0-4.8); ABS Monocytes 0.9 10^3/ul (0-0.8); ABS Neutrophils 8.9 10^3/ul (1.5-7.7); ABS Nucleated RBC 0 10^3/ul; Eosinophil % 0.8 % (0-6); Hematocrit 38 % (42-52); Hemoglobin 13.1 g/dl (14.0-18.0); Lymphocyte % 11.3 % (25-47); Mean Corpuscular HGB Conc 35 g/dl (31-36); Mean Corpuscular Hemoglobin 29 pg (27-31); Mean Corpuscular Volume 83 fL (80-94); Mean Platelet Volume 7 um3 (7.4-10.4); Nucleated Red Blood Cells % 0; Platelet Count 275 10^3/ul (150-450); Red Blood Count 4.57 10^6/ul (4.0-5.4); Red Cell Distribution Width 15 % (10.5-15); White Blood Count 11.3 10^3/ul (3.5-10.8)
[2017-04-30 21:42] LABS: INR 4.58 (0.77-1.02)
[2017-04-30] MEDS ORDERED: Insulin REGULAR(*) 1 UNITS UNIT IV PUSH ONE (22:10)
--- NOTE | 2017-04-30 23:34 | ED ---
Remigio Mack Angela, scribfrederick for Aster Juarez MD on 04/30/17 at 2016 . Shortness of Breath - HPI Summary HPI Summary: This pt is a 81 y/o male presenting to [facility] c/o SOB x3 days. Pt reports cough and some chest pain secondary to cough. He additionally notes fever, with a maximum temperature of 101 F. Pt states he has difficulty breathing which has been worsening over the past days. PMHx: diabetes, HTN, CAD, SD, COPD. Pt is on O2 at home. - History of Current Complaint Chief Complaint: EDShortnessOfBreath Time Seen by Provider: 04/30/17 20:09 Hx Obtained From: Patient Onset/Duration: Lasting Days, Still Present Timing: Constant Current Severity: Moderate Dyspnea At: Rest Aggrevating Factors: Nothing Alleviating Factors: Nothing Associated Signs & Symptoms: Cough (Nonproductive), Chest Pain w/Cough, Fever - Allergy/Home Medications Allergies/Adverse Reactions: Allergies Allergy/AdvReac Type Severity Reaction Status Date / Time MS Nitroglycerin Allergy Severe Anaphylactic Verified 03/27/17 19:18 [Nitroglycerin] Shock MS Levofloxacin Allergy Intermediate Itching Verified 03/27/17 19:18 [From Levaquin] MS Iodinated Contrast Media AdvReac Severe Altered Verified 03/27/17 19:18 [IV CONTRAST DYE] Mental Status Home Medications: Home Medications Carboxymethylcellulose Sodium [Lubricant Eye Drops] 0.5 % BOTH EYES BID PRN 11/07 [History Confirmed 04/30/17] PMH/Surg Hx/FS Hx/Imm Hx Endocrine/Hematology History: Reports: Hx Anticoagulant Therapy, Hx Blood Transfusions, Hx Diabetes, Hx Anemia Denies: Hx Blood Disorders, Hx Bone Marrow Disease, Hx Systemic Lupus Erythematosus, Hx Sickle Cell Disease, Hx Thyroid Disease, Hx Unexplained Bleeding Cardiovascular History: Reports: Hx Angina, Hx Angioplasty, Hx Cardiac Arrest - 03/05/14, Hx Congestive Heart Failure, Hx Coronary Artery Disease, Hx Deep Vein Thrombosis, Hx Hypercholesterolemia, Hx Hypertension, Hx Myocardial Infarction, Hx Syncope, Hx Valvular Heart Disease Denies: Hx Aneurysm, Hx Auto Implanted Cardiovert Defib, Hx Cardiomegaly, Hx Congenital Heart Disease, Hx Hypotension, Hx Pacemaker/ICD, Hx Peripheral Vascular Disease, Hx Rheumatic Fever, Other Cardiovascular Problems/Disorders Respiratory History: Reports: Hx Chronic Bronchitis, Hx Chronic Obstructive Pulmonary Disease (COPD), Hx Pleural Effusion, Hx Pneumonia, Hx Pulmonary Edema , Hx Sleep Apnea - CPAP, Other Respiratory Problems/Disorders - Bronchitis Denies: Hx Asthma, Hx Cystic Fibrosis, Hx Lung Cancer, Hx Pulmonary Embolism , Hx Seasonal Allergies GI History: Reports: Hx Gastroesophageal Reflux Disease, Hx Hiatal Hernia, Hx Obstructive Bowel Denies: Hx Cirrhosis, Hx Crohn's Disease, Hx Diverticulosis, Hx Gall Bladder Disease, Hx Gastrointestinal Bleed, Hx Irritable Bowel, Hx Jaundice, Hx Ileostomy, Hx Pyloric Stenosis, Hx Ulcer, Other GI Disorders History: Reports: Hx Benign Prostatic Hyperplasia, Hx Kidney Infection Denies: Hx Acute Renal Failure, Hx Chronic Renal Failure, Hx Dialysis, Hx Kidney Stones, Other Problems/Disorders Musculoskeletal History: Reports: Hx Arthritis, Hx Back Problems, Other Musculoskeletal History - BLE weakness hx CVA, uses scooter at home Denies: Hx Bursitis, Hx Congenital Bone Abnormalities, Hx Fibromyalgia, Hx Gout, Hx Orthopedic Injury, Hx Osteoporosis, Hx Scoliosis, Hx Tendonitis Sensory History: Reports: Hx Cataracts - due for sx, Hx Contacts or Glasses, Hx Vision Problem, Hx Hearing Problem Denies: Hx Eye Injury, Hx Eye Prosthesis, Hx Glaucoma, Hx Legally Blind, Hx Macular Degeneration, Hx Deafness, Hx Hearing Aid, Other Sensory Impairments Opthamlomology History: Reports: Hx Cataracts - due for sx, Hx Contacts or Glasses, Hx Vision Problem Denies: Hx Eye Injury, Hx Eye Prosthesis, Hx Glaucoma, Hx Legally Blind, Hx Macular Degeneration, Other Sensory Impairments Neurological History: Reports: Hx Seizures, Hx Transient Ischemic Attacks (TIA) Denies: Hx Dementia, Hx Developmental Delay, Hx Headaches, Hx Migraine, Hx Nerve Disease, Hx Spinal Cord Injury, Other Neuro Impairments/Disorders Psychiatric History: Reports: Hx Anxiety, Hx Depression - He thinks about the of his and son often., Hx Post Traumatic Stress Disorder, Other Psychiatric Issues/Disorders - Had one episode of emotional shock, but no depression etc since. Denies: Hx Attention Deficit Hyperactivity Disorder, Hx Eating Disorder, Hx Panic Disorder, Hx Inpatient Treatment, Hx Community Mental Health Tx, Hx Schizophrenia, Hx Bipolar Disorder, Hx Suicide Attempt, Hx of Violent Episodes Against Others, Hx Substance Abuse - Cancer History Cancer Type, Location and Year: Skin cancer on scalp - Surgical History Surgery Procedure, Year, and Place: Bypass 2008. hernia 1958. left shoulder sx in [place] in 1965. CABG. 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 VRE, History Other Infectious Disease, Traveled Outside the [place] in Last 30 Days - Family History Known Family History: Positive: Cardiac Disease, Diabetes, Other - uterine CA, colon CA - Social History Alcohol Use: None Hx Substance Use: No Substance Use Type: Reports: None Hx Tobacco Use: No Smoking Status (MU): Never Smoked Tobacco Have You Smoked in the Last Year: No Review of Systems Positive: Fever Positive: Chest Pain - secondary to cough Positive: Shortness Of Breath, Cough Musculoskeletal: Negative Skin: Negative Neurological: Negative All Other Systems Reviewed And Are Negative: Yes Physical Exam - Summary Physical Exam Summary: VITAL SIGNS: Reviewed. GENERAL: Patient is a well-developed and nourished male who is lying comfortable in the stretcher. HEAD AND FACE: No signs of trauma. No ecchymosis, hematomas or skull depressions. No sinus tenderness. EYES: PERRLA, EOMI x 2, No injected conjunctiva, no nystagmus. EARS: Hearing grossly intact. Ear canals and tympanic membranes are within normal limits. MOUTH: Oropharynx within normal limits. NECK: Supple, trachea is midline, no adenopathy, no JVD, no carotid bruit, no c- spine tenderness, neck with full ROM. CHEST: Symmetric, no tenderness at palpation LUNGS: Pt has wheezes bilaterally. He has decreased breath sounds. CVS: Regular rate and rhythm, S1 and S2 present, no murmurs or gallops appreciated. ABDOMEN: Soft. Abdomen is distended. No rebound no guarding, and no masses palpated. Bowel sounds are normal. EXTREMITIES: FROM in all major joints, no edema, no cyanosis or clubbing. NEURO: Alert and oriented x 3. No acute neurological deficits. Speech is normal and follows commands. SKIN: Dry and warm Triage Information Reviewed: Yes Vital Signs On Initial Exam: Initial Vitals Temp Pulse Resp BP Pulse Ox 98.1 F 64 24 144/81 96 04/30/17 17:42 04/30/17 17:42 04/30/17 17:42 04/30/17 17:42 04/30/17 17:42 Vital Signs Reviewed: Yes Diagnostics - Vital Signs Vital Signs Temp Pulse Resp BP Pulse Ox 04/30/17 19:59 98.6 F 62 133/72 98 04/30/17 17:42 98.1 F 64 24 144/81 96 - Laboratory Result Diagrams: 04/30/17 21:20 04/30/17 21:20 Lab Statement: Any lab studies that have been ordered have been reviewed, and results considered in the medical decision making process. - Radiology chest XR Xray Interpretation: Positive (See Comments) - IMPRESSION: 1. Cardiomegaly. 2. Pulmonary interstitial edema. 3. Patchy airspace disease of the right mid and lower lung which may indicate superimposed pneumonic consolidation or pulmonary alveolar edema. Recommend follow-up until resolution to exclude underlying pulmonary parenchymal pathology. Dr. Juarez has reviewed this radiology report. Radiology Interpretation Completed By: Radiologist - EKG 22:34 Cardiac Rate: NL EKG Rhythm: Atrial Fibrillation - at 78 bpm EKG Interpretation: left bundle branch block EKG Comparison: No Significant Change - no change from prior EKG. Course/Dx - Course Assessment/Plan: This pt is a 81 y/o male presenting to [facility] c/o SOB x3 days. Pt reports cough and some chest pain secondary to cough. He additionally notes fever, with a maximum temperature of 101 F. Pt states he has difficulty breathing which has been worsening over the past days. PMHx: diabetes, HTN, CAD , SD, COPD. Pt is on O2 at home. Chest XR as read by radiologist reports pt may have pulmonary interstitial edema and superimposed pneumonic consolidation consistent with CHF, so pt will not be given the full amount of IV normal saline for sepsis protocol. Labs show WBC of 11.3, CRP of 144.05, BNP of 385, and troponin of 0.04. In the ED course the pt was given IV fluids, duoneb, solu- medrol, Levaquin, magnesium sulfate, and insulin. I discussed pt care with Dr. Burroughs, hospitalist, who has agreed to admit the pt. Dx: COPD and pneumonia. - Diagnoses Provider Diagnoses: COPD (chronic obstructive pulmonary disease), Pneumonia - Physician Notifications Discussed Care of Patient With: Katja Burroughs Time Discussed With Above Provider: 22:40 Instructed by Provider To: Other - I discussed pt care with Dr. Burroughs, hospitalist, who has agreed to admit the pt. Discharge - Discharge Plan Condition: Stable Disposition: ADMITTED TO [facility] Referrals: Jeremiah Ruano MD [Primary Care Provider] - The documentation as recorded by the Remigio couch Angela accurately reflects the service I personally performed and the decisions made by , Aster Juarez MD.
[2017-05-01] MEDS ORDERED: Dextrose 50% Syringe 50 ML* 25 GM/50 ML SYRINGE IV PUSH PRN (01:47)
[2017-05-01] MEDS ORDERED: Nystatin CREAM* 15 GM TUBE TOPICAL PRN (01:53)
[2017-05-01] MEDS ORDERED: Acetaminophen TAB* 325 MG PO PRN (01:53)
[2017-05-01] MEDS ORDERED: Albuterol 2.5 MG/3 ML NEB.SOL* (0.083%) INH PRN (01:53)
[2017-05-01 04:24] LABS: Urine Appearance Cloudy; Urine Blood 3+ (Negative); Urine Color Yellow; Urine Ketones Negative (Negative); Urine Protein 1+(30 mg/dL) (Negative); Urine Specific Gravity 1.022 (1.010-1.030); Urine Urobilinogen Negative (Negative)
[2017-05-01] MEDS: Albuterol 2.5 MG/3 ML NEB.SOL* (0.083%) INH SCH ×6 (04:52→23:39)
[2017-05-01 05:59] LABS: Hematocrit 35 % (42-52); Hemoglobin 11.9 g/dl (14.0-18.0); Mean Corpuscular HGB Conc 34 g/dl (31-36); Mean Corpuscular Hemoglobin 29 pg (27-31); Mean Corpuscular Volume 84 fL (80-94); Mean Platelet Volume 8 um3 (7.4-10.4); Platelet Count 249 10^3/ul (150-450); Red Blood Count 4.13 10^6/ul (4.0-5.4); Red Cell Distribution Width 15 % (10.5-15)
[2017-05-01] MEDS ORDERED: Heparin VIAL(*) 5000 UNITS/ML VIAL (FIVE THOUSAND) SUBCUT SCH (06:00)
[2017-05-01 06:10] LABS: INR 4.18 (0.77-1.02)
[2017-05-01] MEDS ORDERED: methylPREDNISolone SOD 40 MG* 1 ML VIAL IV SCH (07:00)
--- NOTE | 2017-05-01 07:26 | HP ---
CC: Dr. Ruano * HISTORY AND PHYSICAL: DATE OF ADMISSION: 05/01/17 PRIMARY CARE PROVIDER: Dr. Ruano. CHIEF COMPLAINT: Short of breath and cough. HISTORY OF PRESENT ILLNESS: Mr. Escamilla is a 81-year-old male, well-known to the hospitalist service from multiple previous hospitalizations who has a history of coronary artery disease, past CVA, type 2 diabetes, atrial fibrillation, COPD , tracheobronchomalacia, TAMICA, and obesity hypoventilation syndrome, who presented to the emergency room on 04/30/17 with complaints of cough and shortness of breath. The patient states that for approximately the last one week he has been having productive cough and shortness of breath. He states that the sputum is white in color. He states that early on in the course of his illness he had fever and chills. This has not been going on recently. The patient does have a visiting nurse who follows with him and informed him that his lungs were clear. Because he is not getting any better, however, he presented to the emergency room for evaluation. The patient does state that his roommate was sick with a similar illness prior to him becoming ill. PAST MEDICAL HISTORY: 1. Coronary artery disease. 2. History of CVA. 3. Type 2 diabetes. 4. Atrial fibrillation. 5. Hypertension. 6. COPD. 7. Tracheobronchomalacia. 8. TAMICA. 9. Obesity-hypoventilation syndrome. 10. History of DVT. 11. Seizure disorder. 12. BPH. 13. Depression. PAST SURGICAL HISTORY: 1. CABG. 2. Tracheostomy. 3. Hernia repair. MEDICATIONS: 1. Aspirin 81 mg p.o. daily. 2. Albuterol two puffs inhaled q.4 hours p.r.n. shortness of breath. 3. Albuterol one neb inhaled q.4 hours p.r.n. shortness of breath. 4. Tylenol 650 mg p.o. q.4 hours p.r.n. pain. 5. Lubricant eye drops one drop to both eyes twice daily p.r.n. dryness. 6. Budesonide one neb inhaled twice daily. 7. Lipitor 10 mg p.o. daily. 8. Finasteride 5 mg p.o. daily. 9. Clobetasol ointment applied topically twice daily p.r.n. rash. 10. Cipro ear drops. 11. Vitamin D 2000 units p.o. daily. 12. Nystatin applied topically 3 times daily p.r.n. candidal rash. 13. Metoprolol tartrate 25 mg p.o. b.i.d. 14. Lantus 35 units subcutaneous b.i.d. 15. Lasix 40 mg p.o. b.i.d. 16. Metformin 500 mg p.o. daily with meals. 17. Coumadin 6 mg p.o. Thursday, Thursday, Thursday, , Thursday, and Thursday. 18. Coumadin 9 mg p.o. Thursday. 19. Sertraline 100 mg p.o. daily. 20. Senokot 17.2 mg p.o. b.i.d. ALLERGIES: NITROGLYCERIN, LEVOFLOXACIN, and IODINATED CONTRAST MEDIA. FAMILY HISTORY: Mom had a history of uterine cancer. Dad had a history of rectal cancer. SOCIAL HISTORY: The patient does not smoke currently. He denies any alcohol or recreational drugs. He is on disability. He lives with a roommate. REVIEW OF SYSTEMS: Complete 11-system review of systems is obtained. Pertinent positives and negatives are as per HPI; and, in addition, the patient does complain of poor appetite for one week, occasional diarrhea and severe dysuria recently. PHYSICAL EXAMINATION GENERAL: The patient is a well-developed, elderly male sitting on the edge of the bed in no acute distress. VITAL SIGNS: Blood pressure 105/39, pulse 89, respirations 18, temp 98.6, O2 at 95% on 2.5 L. HEENT: Pupils are equal and round. There is ptosis of the right eyelid. Extraocular muscles are intact. Oropharynx is clear. Oropharynx is clear. Oral mucosa is moist. The patient is edentulous on the top, and has very few teeth on the bottom. NECK: There is no submandibular, cervical, or supraclavicular adenopathy. Thyroid is not enlarged. No thyroid nodule is noted. Previous tracheostomy site is noted. PULMONARY: Lungs are clear to auscultation bilaterally, though breath sounds are diminished. CARDIAC: Normal S1, S2. Heart rate is irregularly irregular in a controlled rate. There is trace to 1+ lower extremity edema bilaterally. ABDOMEN: Bowel sounds present. Abdomen is soft, nontender, and nondistended. MUSCULOSKELETAL: There is no cyanosis or clubbing of the digits. There is full active range of motion of all 4 extremities. SKIN: Warm and dry. There are no rashes. The patient does have two scabbed- over lesions on the tip of his nose with some mild surrounding erythema. The patient states his cat scratched him there. NEURO: There are no gross neurologic deficits. The patient's speech is somewhat dysarthric, but at his baseline. PSYCH: The patient is alert, he is oriented x3. Affect appears appropriate. LABORATORY DATA: WBC 11.3, hemoglobin 13.1, hematocrit 38, platelets 275. INR 4.58. Sodium 133, potassium 4.7, chloride 99, CO2 29, BUN 25, creatinine 1.14, glucose 277, lactic acid 1.3, calcium 9.1. Bilirubin 0.6, AST 17, ALT 23 , alk phos 95. Troponin 0.04, which is baseline. CRP 144.05. BNP 385. Albumin 3.3. Influenza A and B negative. DIAGNOSTIC STUDIES: EKG reveals atrial fibrillation with a left bundle-branch block. Chest x-ray - evidence of cardiomegaly, pulmonary interstitial edema, and patchy airspace disease of the right mid and lower lung, which may indicate superimposed pneumonic consolidation or pulmonary alveolar edema. ASSESSMENT AND PLAN: Mr. Escamilla is a 81-year-old male with a history of chronic obstructive pulmonary disease as well as obesity-hypoventilation syndrome, and tracheobronchomalacia who utilizes O2 during the day and BiPAP at night, who presents to the emergency room with complaints of one week of ongoing short of breath and cough. 1. Chronic obstructive pulmonary disease exacerbation, likely secondary to bronchitis. The patient has no crackles on exam. His chest x-ray may be consistent with pneumonia; however, without fever and dramatically elevated white blood count this seems less likely. I will send a procalcitonin. The patient will be treated with ceftriaxone and azithromycin. For the chronic obstructive pulmonary disease exacerbation, the patient will continue on Solu- Medrol 40 mg IV q.12 hours. I will change his nebulizer treatments to q.4 hours while awake. The patient will also continue on his budesonide. The patient's respiratory status will be monitored closely. 2. Type 2 diabetes. The patient's most recent hemoglobin A1c on 03/27/17 was elevated at 10.1%. He will continue on Lantus 35 units subcutaneous twice daily and lispro sliding scale. I am going to hold his metformin for now. Aggressive dose modification should be made to achieve improved blood sugar control. 3. Coronary artery disease. We will continue aspirin, Lipitor, Lasix, and metoprolol. 4. Depression/anxiety. Continue sertraline. 5. Benign prostatic hypertrophy. Continue finasteride. 6. Atrial fibrillation. The patient's heart rate is under acceptable control at this point. He will be maintained on his usual dose of metoprolol. His INR is supratherapeutic; therefore, his Coumadin will be held for now. Followup INR will be obtained on the morning of 05/01/17. 7. DVT prophylaxis. According to the Adult Thrombosis Prophylaxis Risk Factor Assessment Guide, the patient has a total risk factor score of 6, making him high risk. He will remain on Coumadin though his INR is currently supratherapeutic; therefore, tonight's dose will be held. TIME SPENT: 65 minutes were spent admitting this patient. [id number]/[facility] #: [id number] [place]
[2017-05-01] MEDS: Budesonide NEB* 0.5 MG/2 ML NEB.SOLN INH SCH ×2 (07:39→20:13)
[2017-05-01 08:12] LABS: EGFR Non-African American 49.7 (>60)
[2017-05-01] MEDS: Senna TAB PO SCH ×2 (08:46→20:13)
[2017-05-01] MEDS: Atorvastatin* 20 MG TAB PO SCH (08:46)
[2017-05-01] MEDS: Sertraline* 100 MG TAB PO SCH (08:46)
[2017-05-01] MEDS: Finasteride TAB* 5 MG PO SCH (08:46)
[2017-05-01] MEDS: Aspirin EC Low Dose* 81 MG TAB.EC PO SCH (08:46)
[2017-05-01] MEDS: Furosemide TAB* 40 MG PO SCH ×2 (08:46→20:14)
[2017-05-01] MEDS: Insulin LISPRO* 1 UNITS UNIT SUBCUT SCH ×4 (08:47→22:02)
[2017-05-01] MEDS: Metoprolol Tartrate TAB* 25 MG PO SCH ×2 (08:47→20:13)
[2017-05-01] MEDS: Azithromycin IV(*) 500 MG in NS 0.9% 250 ML* 250 ML IVPB SCH (08:55)
[2017-05-01] MEDS ORDERED: Insulin GLARGINE(*) 1 UNITS UNIT SUBCUT SCH (09:00)
[2017-05-01] MEDS ORDERED: cefTRIAXone(*) 1 GM in NS 0.9% 50 ML* 50 ML IVPB SCH (10:00)
--- NOTE | 2017-05-01 12:17 | PN ---
Subjective Date of Service: 05/01/17 Interval History: Some white sputum. Less SOB today but not ready to go home. Objective Active Medications: Acetaminophen (Tylenol Tab*) 650 mg PO Q4H PRN PRN Reason: PAIN Albuterol (Ventolin 2.5 Mg/3 Ml Neb.Kika*) 2.5 mg INH [id number] AWAKE [facility] Last Admin: 05/01/17 10:47 Dose: 2.5 mg Aspirin (Aspirin Ec Low Dose*) 81 mg PO QAM [facility] Last Admin: 05/01/17 08:46 Dose: 81 mg Atorvastatin Calcium (Lipitor*) 10 mg PO DAILY [facility] Last Admin: 05/01/17 08:46 Dose: 10 mg Budesonide (Pulmicort Neb*) 0.5 mg INH BID [facility] Last Admin: 05/01/17 07:39 Dose: 0.5 mg Dextrose (D50w Syringe 50 Ml*) 12.5 gm IV PUSH .FOR FS < 60 - SS PRN PRN Reason: FS < 60 Finasteride (Proscar Tab*) 5 mg PO DAILY [facility] Last Admin: 05/01/17 08:46 Dose: 5 mg Furosemide (Lasix Tab*) 40 mg PO BID [facility] Last Admin: 05/01/17 08:46 Dose: 40 mg Azithromycin 500 mg/ Sodium (Chloride) 250 mls @ 250 mls/hr IVPB Q24H [facility] Last Admin: 05/01/17 08:55 Dose: 250 mls/hr Ceftriaxone Sodium 1 gm/ (Dextrose) 50 mls @ 200 mls/hr IVPB Q24H [facility] Insulin Glargine (Lantus(*)) 35 units SUBCUT BID [facility] Last Admin: 05/01/17 08:47 Dose: 35 units Insulin Human Lispro (Humalog*) 0 units SUBCUT ACHS [facility] PRN Reason: Protocol Last Admin: 05/01/17 08:47 Dose: 8 units Metoprolol Tartrate (Lopressor Tab*) 25 mg PO BID [facility] Last Admin: 05/01/17 08:47 Dose: 25 mg Nystatin (Nystatin Cream*) 1 applic TOPICAL TID PRN PRN Reason: groin rash Prednisone (Deltasone Tab*) 60 mg PO DAILY [facility] Senna (Senokot Tab*) 2 tab PO BID [facility] Last Admin: 05/01/17 08:46 Dose: 2 tab Sertraline HCl (Zoloft*) 100 mg PO QAM [facility] Last Admin: 05/01/17 08:46 Dose: 100 mg Vital Signs - 8 hr 05/01/17 05/01/17 05/01/17 07:44 08:00 08:19 Pulse Rate 64 64 Respiratory 20 20 20 Rate Blood Pressure 118/37 (mmHg) O2 Sat by Pulse 98 97 Oximetry 05/01/17 10:48 Pulse Rate 59 Respiratory 18 Rate Blood Pressure (mmHg) O2 Sat by Pulse 96 Oximetry Oxygen Devices in Use Now: Nasal Cannula, BiPAP Appearance: Alert, in a chair. In good spirits. Looks comfortable. Eyes: No Scleral Icterus Neck: NL Appearance and Movements; NL JVP, No Thyroid Enlargement, Masses Respiratory: Symmetrical Chest Expansion and Respiratory Effort, Clear to Percussion, - - markedly diminished BS BL, no wheezes or rales. Some dorsal kyphosis Cardiovascular: NL Sounds; No Murmurs; No JVD, RRR, No Edema, - Extremities: No Edema, No Clubbing, Cyanosis, - Skin: No Rash or Ulcers, No Nodules or Sclerosis, - Neurological: Alert and Oriented x 3, NL Sensation Result Diagrams: 05/01/17 05:28 05/01/17 05:28 Assess/Plan/Problems-Billing Assessment: - Patient Problems (1) COPD exacerbation Current Visit: No Status: Acute Priority: High Onset Date: 10/05/13 Code (s): J44.1 - CHRONIC OBSTRUCTIVE PULMONARY DISEASE W (ACUTE) EXACERBATION SNOMED Code(s): 360509572050677 Comment: Breathing seems to be improving. Continue 2 antibiotics, prednisone taper to start 05/02, neb meds. Chronic elevated R hemidiaphragm (2) CAD (coronary artery disease) Current Visit: No Status: Acute Priority: High Code(s): I25.10 - ATHSCL HEART DISEASE OF [place] CORONARY ARTERY W/O ANG PCTRS SNOMED Code(s): 99153973 Comment: Continue ASA. Not clear if this is a definite dx. He may be a candidate for a statin on the basis of DM and HRN. (3) Diabetes mellitus Current Visit: No Status: Acute Code(s): E11.9 - TYPE 2 DIABETES MELLITUS WITHOUT COMPLICATIONS SNOMED Code(s): 26639948 Comment: c/w lantus and SSI. Hold metformin until discharge. (4) Hypertension Current Visit: No Status: Acute Priority: High Code(s): I10 - ESSENTIAL ( PRIMARY) HYPERTENSION SNOMED Code(s): 38858592 Comment: Continue beta placido
[2017-05-01] MEDS ORDERED: Insulin LISPRO* 1 UNITS UNIT SUBCUT STA (13:36)
[2017-05-01] MEDS ORDERED: Atorvastatin* 80 MG TAB PO SCH (17:00)
[2017-05-01] MEDS: Insulin GLARGINE(*) 1 UNITS UNIT SUBCUT SCH (21:37)
[2017-05-01] MEDS ORDERED: Insulin LISPRO* 1 UNITS UNIT SUBCUT ONE (21:50)
[2017-05-02] MEDS: Albuterol 2.5 MG/3 ML NEB.SOL* (0.083%) INH SCH ×5 (03:40→21:04)
[2017-05-02] MEDS: Insulin LISPRO* 1 UNITS UNIT SUBCUT SCH ×5 (07:45→21:05)
[2017-05-02] MEDS ORDERED: predniSONE TAB* 20 MG PO SCH (09:00)
[2017-05-02] MEDS: Budesonide NEB* 0.5 MG/2 ML NEB.SOLN INH SCH ×2 (09:20→21:04)
[2017-05-02] MEDS: Azithromycin IV(*) 500 MG in NS 0.9% 250 ML* 250 ML IVPB SCH (09:24)
[2017-05-02] MEDS: Atorvastatin* 20 MG TAB PO SCH (09:24)
[2017-05-02] MEDS: Metoprolol Tartrate TAB* 25 MG PO SCH ×2 (09:24→20:05)
[2017-05-02] MEDS: Aspirin EC Low Dose* 81 MG TAB.EC PO SCH (09:25)
[2017-05-02] MEDS: Finasteride TAB* 5 MG PO SCH (09:25)
[2017-05-02] MEDS: Sertraline* 100 MG TAB PO SCH (09:25)
[2017-05-02] MEDS: Senna TAB PO SCH ×2 (09:25→20:05)
[2017-05-02] MEDS: Furosemide TAB* 40 MG PO SCH ×2 (09:25→20:05)
[2017-05-02] MEDS: Insulin GLARGINE(*) 1 UNITS UNIT SUBCUT SCH ×2 (09:26→20:07)
[2017-05-02] MEDS: cefTRIAXone(*) 1 GM in D5W 50 ML BAG* 50 ML IVPB SCH (12:22)
[2017-05-02] MEDS ORDERED: Dextrose 50% Syringe 50 ML* 25 GM/50 ML SYRINGE IV PUSH PRN (14:33)
--- NOTE | 2017-05-02 14:40 | PN ---
Subjective Date of Service: 05/02/17 Interval History: Patient states his breathing is "bad." Cough with thick white sputum. Objective Active Medications: Acetaminophen (Tylenol Tab*) 650 mg PO Q4H PRN PRN Reason: PAIN Albuterol (Ventolin 2.5 Mg/3 Ml Neb.Kika*) 2.5 mg INH [id number] AWAKE [facility] Last Admin: 05/02/17 11:43 Dose: 2.5 mg Aspirin (Aspirin Ec Low Dose*) 81 mg PO QAM [facility] Last Admin: 05/02/17 09:25 Dose: 81 mg Atorvastatin Calcium (Lipitor*) 10 mg PO DAILY [facility] Last Admin: 05/02/17 09:24 Dose: 10 mg Budesonide (Pulmicort Neb*) 0.5 mg INH BID [facility] Last Admin: 05/02/17 09:20 Dose: 0.5 mg Dextrose (D50w Syringe 50 Ml*) 12.5 gm IV PUSH .FOR FS < 60 - SS PRN PRN Reason: FS < 60 Finasteride (Proscar Tab*) 5 mg PO DAILY [facility] Last Admin: 05/02/17 09:25 Dose: 5 mg Furosemide (Lasix Tab*) 40 mg PO BID [facility] Last Admin: 05/02/17 09:25 Dose: 40 mg Azithromycin 500 mg/ Sodium (Chloride) 250 mls @ 250 mls/hr IVPB Q24H [facility] Last Admin: 05/02/17 09:24 Dose: 250 mls/hr Ceftriaxone Sodium 1 gm/ (Dextrose) 50 mls @ 200 mls/hr IVPB Q24H [facility] Last Admin: 05/02/17 12:22 Dose: 200 mls/hr Insulin Glargine (Lantus(*)) 45 units SUBCUT BID [facility] Last Admin: 05/02/17 09:26 Dose: 45 units Insulin Human Lispro (Humalog*) 0 units SUBCUT ACHS [facility] PRN Reason: Protocol Last Admin: 05/02/17 12:23 Dose: 12 units Insulin Human Lispro (Humalog*) 0 units SUBCUT AC [facility]ISI PRN Reason: Protocol Metoprolol Tartrate (Lopressor Tab*) 25 mg PO BID [facility] Last Admin: 05/02/17 09:24 Dose: 25 mg Nystatin (Nystatin Cream*) 1 applic TOPICAL TID PRN PRN Reason: groin rash Prednisone (Deltasone Tab*) 60 mg PO DAILY [facility] Last Admin: 05/02/17 09:25 Dose: 60 mg Senna (Senokot Tab*) 2 tab PO BID [facility] Last Admin: 05/02/17 09:25 Dose: 2 tab Sertraline HCl (Zoloft*) 100 mg PO QAM [facility] Last Admin: 05/02/17 09:25 Dose: 100 mg Vital Signs - 8 hr 05/02/17 05/02/17 05/02/17 08:00 08:06 09:20 Temperature 97.2 F Pulse Rate 53 78 Respiratory 20 18 Rate Blood Pressure 119/83 (mmHg) O2 Sat by Pulse 95 Oximetry Oxygen Devices in Use Now: Nasal Cannula Appearance: Alert, sitting on the edge of his bed. Tachypneic, otherwise looks comfortable. Eyes: No Scleral Icterus Neck: NL Appearance and Movements; NL JVP, No Thyroid Enlargement, Masses Respiratory: Symmetrical Chest Expansion and Respiratory Effort, Clear to Percussion, - - markedly diminished BS BL. Extremities: No Clubbing, Cyanosis, - - 1+ edema BL Skin: No Rash or Ulcers, No Nodules or Sclerosis, - Neurological: Alert and Oriented x 3, NL Sensation Result Diagrams: 05/01/17 05:28 05/01/17 05:28 Microbiology and Other Data: Microbiology 05/01/17 04:01 Urine Culture - Final Urine No Growth (<1,000 CFU/mL) Assess/Plan/Problems-Billing Assessment: - Patient Problems (1) COPD exacerbation Current Visit: No Status: Acute Priority: High Onset Date: 10/05/13 Code (s): J44.1 - CHRONIC OBSTRUCTIVE PULMONARY DISEASE W (ACUTE) EXACERBATION SNOMED Code(s): 200014842849265 Comment: Breathing seems to be improving. Continue 2 antibiotics, reduce prednisone to 50 mg daily starting 05/03, continue neb meds. Chronic elevated R hemidiaphragm (2) CAD (coronary artery disease) Current Visit: No Status: Acute Priority: High Code(s): I25.10 - ATHSCL HEART DISEASE OF [place] CORONARY ARTERY W/O ANG PCTRS SNOMED Code(s): 79100948 Comment: Continue ASA. Not clear if this is a definite dx. He may be a candidate for a statin on the basis of DM and HRN. (3) Diabetes mellitus Current Visit: No Status: Acute Code(s): E11.9 - TYPE 2 DIABETES MELLITUS WITHOUT COMPLICATIONS SNOMED Code(s): 47609533 Comment: c/w lantus and SSI. Add Lispro by carb count. Hold metformin until discharge. Lantus incresed to higher dose 05/01. (4) Hypertension Current Visit: No Status: Acute Priority: High Code(s): I10 - ESSENTIAL ( PRIMARY) HYPERTENSION SNOMED Code(s): 59706703 Comment: Continue beta placido
[2017-05-02] MEDS: guaiFENesin LIQ* 100 MG/5 ML UDC PO SCH ×2 (17:45→20:07)
[2017-05-03] MEDS: Albuterol 2.5 MG/3 ML NEB.SOL* (0.083%) INH SCH ×3 (01:11→13:05)
[2017-05-03] MEDS: Insulin LISPRO* 1 UNITS UNIT SUBCUT SCH ×7 (08:01→21:59)
[2017-05-03] MEDS: Budesonide NEB* 0.5 MG/2 ML NEB.SOLN INH SCH ×2 (08:51→21:16)
[2017-05-03] MEDS: Senna TAB PO SCH ×2 (09:24→21:35)
[2017-05-03] MEDS: Furosemide TAB* 40 MG PO SCH ×2 (09:24→21:35)
[2017-05-03] MEDS: Aspirin EC Low Dose* 81 MG TAB.EC PO SCH (09:24)
[2017-05-03] MEDS: Sertraline* 100 MG TAB PO SCH (09:24)
[2017-05-03] MEDS: guaiFENesin LIQ* 100 MG/5 ML UDC PO SCH ×4 (09:24→21:35)
[2017-05-03] MEDS: Azithromycin IV(*) 500 MG in NS 0.9% 250 ML* 250 ML IVPB SCH (09:24)
[2017-05-03] MEDS: Atorvastatin* 20 MG TAB PO SCH (09:24)
[2017-05-03] MEDS: Finasteride TAB* 5 MG PO SCH (09:24)
[2017-05-03] MEDS: Metoprolol Tartrate TAB* 25 MG PO SCH ×2 (09:24→21:35)
[2017-05-03] MEDS: predniSONE TAB* 50 MG PO SCH (09:24)
[2017-05-03] MEDS: Insulin GLARGINE(*) 1 UNITS UNIT SUBCUT SCH ×2 (09:25→21:58)
[2017-05-03] MEDS: cefTRIAXone(*) 1 GM in D5W 50 ML BAG* 50 ML IVPB SCH (10:43)
[2017-05-03] MEDS ORDERED: Albuterol 2.5 MG/3 ML NEB.SOL* (0.083%) INH PRN (13:02)
[2017-05-03] MEDS ORDERED: Albuterol HFA INHALER* 8 gm MDI INH PRN (14:47)
--- NOTE | 2017-05-03 14:49 | PN ---
Subjective Date of Service: 05/03/17 Interval History: Feels "shitty" weak, tired Breathing better but cough is not no other complaints Objective Active Medications: Acetaminophen (Tylenol Tab*) 650 mg PO Q4H PRN PRN Reason: PAIN Albuterol (Ventolin 2.5 Mg/3 Ml Neb.[place]*) 2.5 mg INH Q4H PRN PRN Reason: SOB/WHEEZING Aspirin (Aspirin Ec Low Dose*) 81 mg PO QAM [facility] Last Admin: 05/03/17 09:24 Dose: 81 mg Atorvastatin Calcium (Lipitor*) 10 mg PO DAILY [facility] Last Admin: 05/03/17 09:24 Dose: 10 mg Azithromycin (Zithromax Tab*) 250 mg PO DAILY [facility] Stop: 05/05/17 09:01 Budesonide (Pulmicort Neb*) 0.5 mg INH BID [facility] Last Admin: 05/03/17 08:51 Dose: 0.5 mg Dextrose (D50w Syringe 50 Ml*) 12.5 gm IV PUSH .FOR FS < 60 - SS PRN PRN Reason: FS < 60 Finasteride (Proscar Tab*) 5 mg PO DAILY [facility] Last Admin: 05/03/17 09:24 Dose: 5 mg Furosemide (Lasix Tab*) 40 mg PO BID [facility] Last Admin: 05/03/17 09:24 Dose: 40 mg Guaifenesin (Robitussin*) 10 ml PO QID [facility] Last Admin: 05/03/17 14:39 Dose: Not Given Ceftriaxone Sodium 1 gm/ (Dextrose) 50 mls @ 200 mls/hr IVPB Q24H [facility] Last Admin: 05/03/17 10:43 Dose: 200 mls/hr Insulin Glargine (Lantus(*)) 45 units SUBCUT BID [facility] Last Admin: 05/03/17 09:25 Dose: 45 units Insulin Human Lispro (Humalog*) 0 units SUBCUT ACHS [facility] PRN Reason: Protocol Last Admin: 05/03/17 12:04 Dose: Not Given Insulin Human Lispro (Humalog*) 0 units SUBCUT AC [facility] PRN Reason: Protocol Last Admin: 05/03/17 12:56 Dose: 9 unit Metoprolol Tartrate (Lopressor Tab*) 25 mg PO BID [facility] Last Admin: 05/03/17 09:24 Dose: 25 mg Nystatin (Nystatin Cream*) 1 applic TOPICAL TID PRN PRN Reason: groin rash Prednisone (Deltasone Tab*) 50 mg PO DAILY [facility] Last Admin: 05/03/17 09:24 Dose: 50 mg Senna (Senokot Tab*) 2 tab PO BID [facility] Last Admin: 05/03/17 09:24 Dose: 2 tab Sertraline HCl (Zoloft*) 100 mg PO QAM [facility] Last Admin: 05/03/17 09:24 Dose: 100 mg Vital Signs - 8 hr 05/03/17 05/03/17 05/03/17 07:42 07:56 08:49 Temperature 96.6 F Pulse Rate 43 88 Respiratory 18 18 Rate Blood Pressure 132/41 (mmHg) O2 Sat by Pulse 100 Oximetry 05/03/17 09:24 Temperature Pulse Rate 64 Respiratory Rate Blood Pressure (mmHg) O2 Sat by Pulse Oximetry Oxygen Devices in Use Now: BiPAP Appearance: chronically ill, NAD Eyes: No Scleral Icterus, PERRLA Ears/Nose/Mouth/Throat: Clear Oropharnyx Neck: NL Appearance and Movements; NL JVP Respiratory: Symmetrical Chest Expansion and Respiratory Effort, - - diffuse expiratory wheeze Cardiovascular: - - IRIR Abdominal: NL Sounds; No Tenderness; No Distention, No Hepatosplenomegaly Lymphatic: No Cervical Adenopathy Extremities: No Edema Skin: No Rash or Ulcers Neurological: Alert and Oriented x 3, - - left ptosis Result Diagrams: 05/01/17 05:28 05/01/17 05:28 Microbiology and Other Data: Microbiology 05/01/17 04:01 Urine Culture - Final Urine No Growth (<1,000 CFU/mL) Assess/Plan/Problems-Billing Assessment: 81 yo M h/o CAD, CVA, DM2, afib, COPD, TAMICA/obesity hypoventilation sysndrome, seizure d/o p/w increased SOB being treated for COPD exacerbation - Patient Problems (1) Acute and chronic respiratory failure with hypoxia Comment: In setting of COPD exacerbation steroids tapered to 50mg PO starting 05/03 c/w pulmicort, albuterol (2) Chronic respiratory failure Comment: on 3L home oxygen (3) Afib Code(s): I48.91 - UNSPECIFIED ATRIAL FIBRILLATION Comment: rate controlled, low dose beta placido added, inr 1.67 on coumadin (4) Diabetes mellitus Comment: c/w lantus and SSI.and Lispro by carb count. Hold metformin until discharge. Lantus incresed to higher dose 05/01. (5) TAMICA (obstructive sleep apnea) Comment: Continue CPAP (6) DVT prophylaxis Comment: supratherapeutic INR recheck now
[2017-05-03 15:13] LABS: EGFR Non-African American 37.8 (>60)
[2017-05-03] MEDS ORDERED: Warfarin TAB(*) 3 MG PO SCH (17:00)
[2017-05-03] MEDS ORDERED: NS 0.9% 1000 ML* 1,000 ML IV SCH (17:45)
[2017-05-04 07:02] LABS: INR 1.7 (0.77-1.02)
[2017-05-04] MEDS: Budesonide NEB* 0.5 MG/2 ML NEB.SOLN INH SCH (07:50)
[2017-05-04] MEDS: Insulin LISPRO* 1 UNITS UNIT SUBCUT SCH ×4 (07:53→12:59)
[2017-05-04 08:13] VITALS: BP 160/53
[2017-05-04] MEDS ORDERED: Azithromycin TAB* 250 MG PO SCH (09:00)
[2017-05-04] MEDS: Metoprolol Tartrate TAB* 25 MG PO SCH (09:24)
[2017-05-04] MEDS: predniSONE TAB* 50 MG PO SCH (09:24)
[2017-05-04] MEDS: Sertraline* 100 MG TAB PO SCH (09:24)
[2017-05-04] MEDS: Finasteride TAB* 5 MG PO SCH (09:24)
[2017-05-04] MEDS: Furosemide TAB* 40 MG PO SCH (09:24)
[2017-05-04] MEDS: Atorvastatin* 20 MG TAB PO SCH (09:24)
[2017-05-04] MEDS: Senna TAB PO SCH (09:24)
[2017-05-04] MEDS: Aspirin EC Low Dose* 81 MG TAB.EC PO SCH (09:24)
[2017-05-04] MEDS: guaiFENesin LIQ* 100 MG/5 ML UDC PO SCH ×2 (09:24→13:02)
[2017-05-04] MEDS: Insulin GLARGINE(*) 1 UNITS UNIT SUBCUT SCH (09:25)
[2017-05-04] MEDS: cefTRIAXone(*) 1 GM in D5W 50 ML BAG* 50 ML IVPB SCH (10:04)
[2017-05-04] MEDS ORDERED: Warfarin TAB(*) 6 MG PO SCH (17:00)
--- NOTE | 2017-05-05 01:43 | DS ---
CC: Dr. Ruano * DISCHARGE SUMMARY: DATE OF ADMISSION: 05/01/17 DATE OF DISCHARGE: 05/04/17 PRIMARY CARE PROVIDER: Dr. Jeremiah Ruano, [place] PRIMARY DIAGNOSIS: Chronic obstructive pulmonary disease exacerbation. SECONDARY DIAGNOSES: Include: 1. History of coronary artery disease. 2. Past cerebrovascular accident. 3. Type 2 diabetes. 4. Atrial fibrillation. 5. Tracheobronchomalacia. 6. Obstructive sleep apnea. 7. Obesity hypoventilation syndrome. MEDICATIONS ON DISCHARGE: Include: 1. Prednisone 50 mg daily for 5 additional days. 2. Aspirin 81 mg daily. 3. Albuterol 2 puffs every 4 hours as needed. 4. Acetaminophen 650 mg every 4 hours as needed. 5. Carboxymethyl cellulose 0.5% both eyes twice daily as needed. 6. Budesonide 0.5 mg inhaled twice daily. 7. Atorvastatin 10 mg daily. 8. Finasteride 5 mg daily. 9. Clobetasol 0.05% topically twice daily as needed. 10. Cipro 0.2% ear drops daily. 11. Vitamin D 2000 units daily. 12. Nystatin cream 1 application 3 times a day as needed. 13. Metoprolol tartrate 25 mg daily. 14. Insulin glargine 35 units twice daily. 15. Lasix 40 mg twice daily. 16. Coumadin 9 mg on Thursday, 6 mg every other day. 17. Zoloft 100 mg in the morning. 18. Senna twice daily. PERTINENT LABORATORY DATA: INR on the day of discharge was 1.7, increased to home dosing. HISTORY OF PRESENT ILLNESS AND HOSPITAL COURSE: This is a 81-year-old man, past medical history as outlined in the history of present illness on day of admission presented to the hospital with increased shortness of breath thought to be suffering from a COPD exacerbation. He was started on IV steroids, tapered to oral steroids with improvement in his breathing. On the day of discharge, he fell back to his baseline. Hospital course was complicated by hyper then hypoglycemia. His blood sugar was elevated on the presentation and decreased to a zoya of 39 on the day of discharge. Of note, his insulin glargine was increased by 20 units daily in the setting of hyperglycemia. It should be reduced back to his home dose prior to discharge. Additionally, the patient notes that he typically eats peanut butter cracker for snack prior to going to bed, which he was not receiving during the course of the hospital stay , likely also contributing to his hypoglycemia in addition to his increased dose of Lantus during the course of hospital stay. The patient's INR was supratherapeutic on presentation. Several doses of Coumadin were held and ultimately nadired at 1.7 on the day of discharge. Coumadin was restarted prior to his discharge, received 9 mg on 05/03/17 and then to continue 6 mg daily. There are no other complications during the course of his hospital stay. DISCHARGE INSTRUCTIONS: At followup, please: 1. Check INR, discharge value as indicated above. 2. Continue to follow blood sugar control. 3. No other specific labs or vitals that need followup. Reasons to return to the hospital included, but are not limited to, recurrent or worsening symptoms, including chest pain, shortness of breath, nausea, vomiting, lightheadedness, loss of consciousness, bleeding from any source, inability to obtain or tolerate his medications were discussed at length with the patient. He acknowledged understanding. TIME SPENT: Greater than 60 minutes was spent in the discharge of this patient , greater than half was spent [id number] with the patient. [id number]/[facility] #: [id number] MTDGeorgina
== END 2017-05-04 13:50 | disposition home or self-care (01) | DRG 190 ==
LOC: ED 17:40 → MEDTELE 05-01 01:47
PROVIDERS: ADMIT Hospitalist; ATTEND Internal Medicine
PROC: 5A09357 Assistance with Respiratory Ventilation, Less than 24 Consecutive Hours, Continuous Positive Airway Pressure (ICD-10-PCS; principal; 2017-05-01)
DX: J44.1 Chronic obstructive pulmonary disease with (acute) exacerbation (principal); J96.21 Acute and chronic respiratory failure with hypoxia; I38 Endocarditis, valve unspecified; E11.649 Type 2 diabetes mellitus with hypoglycemia without coma; E11.36 Type 2 diabetes mellitus with diabetic cataract; Z68.41 Body mass index [BMI] 40.0-44.9, adult; I48.91 Unspecified atrial fibrillation; G40.909 Epilepsy, unspecified, not intractable, without status epilepticus; E11.65 Type 2 diabetes mellitus with hyperglycemia; I11.0 Hypertensive heart disease with heart failure; I50.9 Heart failure, unspecified; E66.2 Morbid (severe) obesity with alveolar hypoventilation; J98.09 Other diseases of bronchus, not elsewhere classified; I25.10 Atherosclerotic heart disease of native coronary artery without angina pectoris; E78.00 Pure hypercholesterolemia, unspecified; N40.0 Benign prostatic hyperplasia without lower urinary tract symptoms; F32.9 Major depressive disorder, single episode, unspecified; F41.9 Anxiety disorder, unspecified; R79.1 Abnormal coagulation profile; K21.9 Gastro-esophageal reflux disease without esophagitis; M19.90 Unspecified osteoarthritis, unspecified site; H91.90 Unspecified hearing loss, unspecified ear; F43.10 Post-traumatic stress disorder, unspecified; Z85.828 Personal history of other malignant neoplasm of skin; Z86.14 Personal history of Methicillin resistant Staphylococcus aureus infection; Z82.49 Family history of ischemic heart disease and other diseases of the circulatory system; Z86.74 Personal history of sudden cardiac arrest; Z88.1 Allergy status to other antibiotic agents; Z88.8 Allergy status to other drugs, medicaments and biological substances; Z91.041 Radiographic dye allergy status; Z86.718 Personal history of other venous thrombosis and embolism; Z95.1 Presence of aortocoronary bypass graft; Z86.73 Personal history of transient ischemic attack (TIA), and cerebral infarction without residual deficits; Z80.8 Family history of malignant neoplasm of other organs or systems; Z99.81 Dependence on supplemental oxygen; I25.2 Old myocardial infarction; Z83.3 Family history of diabetes mellitus; Z79.82 Long term (current) use of aspirin; Z79.4 Long term (current) use of insulin; Z79.01 Long term (current) use of anticoagulants
CPT/HCPCS: 36415; 71046; 80048; 80053; 81003; 81015; 82947; 83605; 83880; 84145; 84484; 85025; 85027; 85610; 85730; 86140; 87040; 87086; 87502; 93005; 94640; 94660; 94760; 99285; A9270-GY; J0456; J0696; J2920; J2930; J3475; J7512

== ENCOUNTER 2017-05-28 13:34 | Emergency (ER) | payer OTHER ==
[2017-05-28] MEDS ORDERED: NS 0.9% 1000 ML* 1,000 ML IV ONE (13:35)
--- NOTE | 2017-05-28 13:56 | RAD ---
INDICATION: Neurologic changes, code adkins. COMPARISON: Comparison is made with a prior study from January 07, 2017. TECHNIQUE: Contiguous axial sections of the brain were obtained from the skull base to the vertex without contrast. FINDINGS: The ventricles, cisterns and sulci are enlarged consistent with diffuse atrophy. There is a small focal area of decreased attenuation present in the left occipital lobe which is unchanged most consistent with an old infarct. No other focal abnormalities or mass effect are seen. There is no evidence for hemorrhage. No significant focal osseous abnormality is seen. The visualized portion of the paranasal sinuses and mastoid air cells appear clear. The results of this exam were called to referring clinician at 1351 hours. IMPRESSION: NO EVIDENCE FOR GROSS ACUTE INFARCT, MASS EFFECT OR HEMORRHAGE.
[2017-05-28 14:06] LABS: ABS Basophils 0.1 10^3/ul (0-0.2); ABS Eosinophils 0.5 10^3/ul (0-0.6); ABS Lymphocytes 0.7 10^3/ul (1.0-4.8); ABS Monocytes 0.6 10^3/ul (0-0.8); ABS Neutrophils 5.7 10^3/ul (1.5-7.7); ABS Nucleated RBC 0 10^3/ul; Eosinophil % 6.6 % (0-6); Hematocrit 40 % (42-52); Hemoglobin 13.7 g/dl (14.0-18.0); Lymphocyte % 9.7 % (25-47); Mean Corpuscular HGB Conc 35 g/dl (31-36); Mean Corpuscular Hemoglobin 29 pg (27-31); Mean Corpuscular Volume 84 fL (80-94); Mean Platelet Volume 8 um3 (7.4-10.4); Nucleated Red Blood Cells % 0.1; Platelet Count 147 10^3/ul (150-450); Red Blood Count 4.72 10^6/ul (4.0-5.4); Red Cell Distribution Width 17 % (10.5-15); White Blood Count 7.5 10^3/ul (3.5-10.8)
[2017-05-28 14:19] LABS: INR 1.7 (0.77-1.02)
[2017-05-28 14:22] LABS: EGFR Non-African American 50.1 (>60)
[2017-05-28] MEDS ORDERED: Morphine INJ* 4 MG/ML 1 ML SYRINGE (NEW SYRINGE VERSION) IV ONE (14:52)
--- NOTE | 2017-05-28 15:20 | RAD ---
Indication: Neurologic changes. Single frontal view of the chest performed at 1444 hours was reviewed. Comparison is made with previous exam dated September 08, 2002. Elevated right hemidiaphragm is noted. Cardiomegaly is noted. Patient is status post tracer thoracotomy. Left lung field appears hyperinflated. IMPRESSION: HYPERINFLATED LEFT LUNG FIELD WITH ELEVATED RIGHT HEMIDIAPHRAGM. PATIENT IS STATUS POST TRANSSTERNAL THORACOTOMY.
--- NOTE | 2017-05-28 15:50 | RAD ---
HISTORY: Back pain COMPARISONS: None VIEWS: 4, Frontal and lateral views of the sacrum and coccyx FINDINGS: BONE DENSITY: There is diffuse osteopenia. BONES: There is no displaced fracture. The sacral arches are intact. JOINTS: There is no arthropathy. ALIGNMENT: There is no dislocation. SOFT TISSUES: Unremarkable. OTHER FINDINGS: Degenerative changes noted of the lower lumbar spine. IMPRESSION: 1. OSTEOPENIA. 2. DEGENERATIVE CHANGES. 3. NO ACUTE OSSEOUS INJURY OF THE SACRUM AND COCCYX. PLAIN FILMS ARE RELATIVELY INSENSITIVE TO NONDISPLACED FRACTURES OF THE SACRUM AND COCCYX. IF THERE IS PERSISTENT CLINICAL CONCERN FOR SACROCOCCYGEAL OSSEOUS PATHOLOGY, BONE SCANNING MAY BE MORE SENSITIVE
--- NOTE | 2017-05-28 15:51 | RAD ---
HISTORY: Back pain COMPARISONS: None VIEWS: 2 , Frontal and lateral views of the lumbar spine FINDINGS: ALIGNMENT: There is a levoscoliotic curvature of the spine. VERTEBRAL BODIES: The vertebral body heights are normal. The interpedicular distances are normal. There is multilevel anterolateral marginal osteophyte formation most now set at L3-L4 and L5-S1. JOINTS: There is facet osteoarthritis most pronounced at L4-L5 and L5-S1. INTERVERTEBRAL DISCS: There is diffuse loss of intervertebral disc height. SOFT TISSUE: There is calcification of the abdominal aorta. OTHER: The pelvis is unremarkable. The lung bases are clear. IMPRESSION: 1. SCOLIOSIS. 2. DEGENERATIVE DISC DISEASE AND OSTEOARTHRITIS. 3. ATHEROSCLEROSIS.
[2017-05-28 17:26] VITALS: BP 120/64
--- NOTE | 2017-05-29 08:33 | ED ---
Remigio Mack Angela, scribed for Jae Morataya MD on 05/28/17 at 1340 . Neurological HPI - HPI Summary HPI Summary: This pt is a 81 y/o male presenting [facility] for a new onset of left sided facial droop and slurred speech today. Nurse states the pt's symptoms began worsening at 13:15. Pt was on the visitor bathroom at [facility] when he fell off the toilet and on to the floor. Nurse reports the pt was leaning to the right. Pt reports back and hip pain s/p fall, but he states he has chronic back pain. EMS reports they received a call this morning from the pt after he fell from his bed. EMS helped the pt back to his bed but pt refused coming to the ED. Pt uses a wheelchair at baseline. PMHx includes VA x3, CVA x3, cardiac surgery - valve replacementx3, COPD, sleep apnea, diabetes, seizures. - History of Current Complaint Stated Complaint: COED GRIFFITH Time Seen by Provider: 05/28/17 13:35 Hx Obtained From: Patient Onset/Duration: Sudden Onset, Still Present Timing: Constant Current Severity: Moderate Neurological Deficit Location: Facial - left Character: Paralysis - left sided facial droop, Other: - slurred speech Aggravating: Nothing Alleviating: Nothing Associated Signs and Symptoms: Positive: Impaired Speech - slurred speech - Additional Pertinent History Primary Care Physician: [id number] - Allergy/Home Medications Allergies/Adverse Reactions: Allergies Allergy/AdvReac Type Severity Reaction Status Date / Time nitroglycerin Allergy Severe Anaphylatic Verified 05/01/17 02:33 Shock levofloxacin Allergy Intermediate Itching Verified 05/01/17 02:33 Iodinated Contrast- Oral and AdvReac Severe Altered Verified 05/01/17 02:33 IV Dye Mental Status PMH/Surg Hx/FS Hx/Imm Hx Endocrine/Hematology History: Reports: Hx Anticoagulant Therapy, Hx Blood Transfusions, Hx Diabetes, Hx Anemia Denies: Hx Blood Disorders, Hx Bone Marrow Disease, Hx Systemic Lupus Erythematosus, Hx Sickle Cell Disease, Hx Thyroid Disease, Hx Unexplained Bleeding Cardiovascular History: Reports: Hx Angina, Hx Angioplasty, Hx Cardiac Arrest - 03/05/14, Hx Congestive Heart Failure, Hx Coronary Artery Disease, Hx Deep Vein Thrombosis, Hx Hypercholesterolemia, Hx Hypertension, Hx Myocardial Infarction, Hx Syncope, Hx Valvular Heart Disease Denies: Hx Aneurysm, Hx Auto Implanted Cardiovert Defib, Hx Cardiomegaly, Hx Congenital Heart Disease, Hx Hypotension, Hx Pacemaker/ICD, Hx Peripheral Vascular Disease, Hx Rheumatic Fever, Other Cardiovascular Problems/Disorders Respiratory History: Reports: Hx Chronic Bronchitis, Hx Chronic Obstructive Pulmonary Disease (COPD), Hx Pleural Effusion, Hx Pneumonia, Hx Pulmonary Edema , Hx Sleep Apnea - CPAP, Other Respiratory Problems/Disorders - Bronchitis Denies: Hx Asthma, Hx Cystic Fibrosis, Hx Lung Cancer, Hx Pulmonary Embolism , Hx Seasonal Allergies GI History: Reports: Hx Gastroesophageal Reflux Disease, Hx Hiatal Hernia, Hx Obstructive Bowel Denies: Hx Cirrhosis, Hx Crohn's Disease, Hx Diverticulosis, Hx Gall Bladder Disease, Hx Gastrointestinal Bleed, Hx Irritable Bowel, Hx Jaundice, Hx Ileostomy, Hx Pyloric Stenosis, Hx Ulcer, Other GI Disorders History: Reports: Hx Benign Prostatic Hyperplasia, Hx Kidney Infection Denies: Hx Acute Renal Failure, Hx Chronic Renal Failure, Hx Dialysis, Hx Kidney Stones, Other Problems/Disorders Musculoskeletal History: Reports: Hx Arthritis, Hx Back Problems, Other Musculoskeletal History - BLE weakness hx CVA, uses scooter at home Denies: Hx Bursitis, Hx Congenital Bone Abnormalities, Hx Fibromyalgia, Hx Gout, Hx Orthopedic Injury, Hx Osteoporosis, Hx Scoliosis, Hx Tendonitis Sensory History: Reports: Hx Cataracts - due for sx, Hx Contacts or Glasses, Hx Vision Problem, Hx Hearing Aid - at home, Hx Hearing Problem Denies: Hx Eye Injury, Hx Eye Prosthesis, Hx Glaucoma, Hx Legally Blind, Hx Macular Degeneration, Hx Deafness, Other Sensory Impairments Opthamlomology History: Reports: Hx Cataracts - due for sx, Hx Contacts or Glasses, Hx Vision Problem Denies: Hx Eye Injury, Hx Eye Prosthesis, Hx Glaucoma, Hx Legally Blind, Hx Macular Degeneration, Other Sensory Impairments Neurological History: Reports: Hx Seizures, Hx Transient Ischemic Attacks (TIA) Denies: Hx Dementia, Hx Developmental Delay, Hx Headaches, Hx Migraine, Hx Nerve Disease, Hx Spinal Cord Injury, Other Neuro Impairments/Disorders Psychiatric History: Reports: Hx Anxiety, Hx Depression - He thinks about the of his and son often., Hx Post Traumatic Stress Disorder, Other Psychiatric Issues/Disorders - Had one episode of emotional shock, but no depression etc since. Denies: Hx Attention Deficit Hyperactivity Disorder, Hx Eating Disorder, Hx Panic Disorder, Hx Inpatient Treatment, Hx Community Mental Health Tx, Hx Schizophrenia, Hx Bipolar Disorder, Hx Suicide Attempt, Hx of Violent Episodes Against Others, Hx Substance Abuse - Cancer History Cancer Type, Location and Year: Skin cancer on scalp - Surgical History Surgery Procedure, Year, and Place: Bypass 2008. hernia 1957. left shoulder sx in [place] in [place]. CABG. 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 Denies: Hx Clostridium Difficile, Hx Hepatitis, Hx Human Immunodeficiency Virus (HIV), Hx Shingles, Hx Tuberculosis, Hx Known/Suspected VRE, History Other Infectious Disease - Family History Known Family History: Positive: Cardiac Disease, Diabetes, Other - uterine CA, colon CA - Social History Alcohol Use: None Hx Substance Use: No Substance Use Type: Reports: None Hx Tobacco Use: No Smoking Status (MU): Never Smoked Tobacco Have You Smoked in the Last Year: No Review of Systems Negative: Fever, Chills Eyes: Negative ENT: Negative Cardiovascular: Negative Musculoskeletal: Other - back and hip pain Neurological: Other - POS: left sided facial droop Positive: Slurred Speech All Other Systems Reviewed And Are Negative: Yes Physical Exam - Summary Physical Exam Summary: VITAL SIGNS: Reviewed. GENERAL: Patient is a well-developed and nourished male who is lying comfortable in the stretcher. Patient is not in any acute respiratory distress. HEAD AND FACE: No signs of trauma. No ecchymosis, hematomas or skull depressions. No sinus tenderness. EYES: PERRLA, EOMI x 2, No injected conjunctiva, no nystagmus. No photophobia. EARS: Hearing grossly intact. Ear canals and tympanic membranes are within normal limits. MOUTH: Oropharynx within normal limits. NECK: Supple, trachea is midline, no adenopathy, no JVD, no carotid bruit, no c- spine tenderness, neck with full ROM. No meningeal signs, no Kernig's or brudzinskis signs. CHEST: Symmetric, no tenderness at palpation LUNGS: Clear to auscultation bilaterally. No wheezing or crackles. CVS: Tachycardic rate and rhythm, S1 and S2 present, no murmurs or gallops appreciated. ABDOMEN: Soft, non-tender. No signs of distention. No rebound no guarding, and no masses palpated. Bowel sounds are normal. EXTREMITIES: FROM in all major joints, no edema, no cyanosis or clubbing. NEURO: Alert and oriented x 3. Follows commands. Pt has facial droop on the left. He has slurred speech. SKIN: Dry and warm GCS: 15 Triage Information Reviewed: Yes Vital Signs Reviewed: Yes - [place] Coma Scale Best Eye Response: 4 - Spontaneous Best Motor Response: 6 - Obeys Commands Best Verbal Response: 5 - Oriented Coma Scale Total: 15 Diagnostics - Laboratory Result Diagrams: 05/28/17 14:00 05/28/17 14:00 Lab Statement: Any lab studies that have been ordered have been reviewed, and results considered in the medical decision making process. - Radiology Sacrum and Coccyx XR Xray Interpretation: No Acute Changes - IMPRESSION: 1. Osteopenia. 2. Degenerative changes. 3. No acute osseous injury of the sacrum and coccyx. Plain films are relatively insensitive to nondisplaced fracture of the sacrum and coccyx. If there is persistent clinical concern for sacrococcygeal osseous pathology, bone scanning may be more sensitive. Dr. Morataya has reviewed this radiology report. Radiology Interpretation Completed By: Radiologist Chest XR Xray Interpretation: Positive (See Comments) - DrIMPRESSION: Hyperinflated left lung field with elevated right hemidiaphragm. Patient is status post transsternal thoracotomy. Dr. Morataya has reviewed this radiology report. Radiology Interpretation Completed By: Radiologist Lumbar spine XR Xray Interpretation: No Acute Changes - IMPRESSION: 1. Scoliosis. 2. Degenerative disc disease and osteoarthritis. 3. Atherosclerosis. Dr. Morataya has reviewed this radiology report. Radiology Interpretation Completed By: Radiologist - CT Brain CT CT Interpretation: No Acute Changes - IMPRESSION: No evidence for gross acute infarct, mass effect or hemorrhage. Dr. Morataya has reviewed this radiology report. CT Interpretation Completed By: Radiologist - EKG 13:50 Cardiac Rate: NL EKG Interpretation: Junctional rhythm at 65 bpm. EKG Comparison: No Significant Change - similar to prior EKG on 04/30/17. 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 Non-Paretic Hand: Both Correctly Best Gaze (Only Horizontal Eye Movement): Normal Visual Field Testing: No Visual Loss Facial Paresis-Pt to Smile & Close Eyes or Grimace Symmetry: Minor Paralysis Motor Function - Right Arm: No Drift-Holds 10 Seconds Motor Function - Left Arm: No Drift-Holds 10 Seconds Motor Function - Right Leg: No Drift-Holds 10 Seconds Motor Function - Left Leg: No Drift-Holds 10 Seconds Limb Ataxia-Must be out of Proportion to Weakness Present: Absent Sensory (Use Pinprick to Test Arms/Legs/Trunk/Face): Normal Best Language (Describe Picture, Name Items): No Aphasia Dysarthria (Read Several Words): Slurs Some Words Extinction and Inattention: No Abnormality Total Score: 2 Re-Evaluation - Re-Evaluation First Eval Re-Evaluation Time: 13:35 Comment: Dr. Hamlin, neurologist, at bedside. Second Eval Re-Evaluation Time: 16:35 Comment: Pt is feeling better. Course/Dx - Course Assessment/Plan: This pt is a 81 y/o male presenting to [facility] for a new onset of left sided facial droop and slurred speech today. Nurse states the pt's symptoms began worsening at 13:15. Pt was on the visitor bathroom at [facility] when he fell off the toilet and on to the floor. Nurse reports the pt was leaning to the right. Pt reports back and hip pain s/p fall, but he states he has chronic back pain. EMS reports they received a call this morning from the pt after he fell from his bed. EMS helped the pt back to his bed but pt refused coming to the ED. Pt uses a wheelchair at baseline. PMHx includes VA x3, CVA x3, cardiac surgery - valve replacementx3, COPD, sleep apnea, diabetes, seizures. Test results show chronic slight anemia, chronic renal insufficiency, hyperglycemia, troponin is 0.04. Head CT: No evidence for gross acute infarct, mass effect or hemorrhage. Initially we called a joshua griffith and Dr. Hamlin came and assessed the pt. After his assessment Dr. Hamlin reports the pt has no acute deficits, and has chronic slurred speech and facial droop, but nothing new. We did an XR of the lumbar spine and sacrum since he was complaining back pain. Sacrum and coccyx XR: 1. Osteopenia. 2. Degenerative changes. 3. No acute osseous injury of the sacrum and coccyx. Plain films are relatively insensitive to nondisplaced fracture of the sacrum and coccyx. If there is persistent clinical concern for sacrococcygeal osseous pathology, bone scanning may be more sensitive. Lumbar spine XR: 1. Scoliosis. 2. Degenerative disc disease and osteoarthritis. 3. Atherosclerosis. Pt was given Morphine for the pain and is feeling better. Pt will be discharged to home with follow up from his PCP. Pt is hemodynamically stable, alert and oriented x3. He is instructed to return to the ED for any worsening symptoms. - Diagnoses Provider Diagnoses: Back pain During the Visit The Following Alert/Code Occurred: Code Griffith - at 13:26 Discharge - Discharge Plan Condition: Stable Disposition: HOME Patient Education Materials: Back Pain (ED) Referrals: Jeremiah Ruano MD [Primary Care Provider] - 3 Days Additional Instructions: Please follow up with your primary care provider. RETURN TO THE ED FOR ANY WORSENING SYMPTOMS. The documentation as recorded by the Remigio couch Angela accurately reflects the service I personally performed and the decisions made by , Jae Morataya MD.
== END 2017-05-28 17:25 | disposition home or self-care (01) ==
LOC: ED 13:34
DX: M51.37 Other intervertebral disc degeneration, lumbosacral region (principal); M47.817 Spondylosis without myelopathy or radiculopathy, lumbosacral region; M41.9 Scoliosis, unspecified; M85.88 Other specified disorders of bone density and structure, other site; J98.6 Disorders of diaphragm; R29.810 Facial weakness; R47.81 Slurred speech; I25.2 Old myocardial infarction; Z86.73 Personal history of transient ischemic attack (TIA), and cerebral infarction without residual deficits; J44.9 Chronic obstructive pulmonary disease, unspecified; E11.9 Type 2 diabetes mellitus without complications; Z91.81 History of falling; Z99.3 Dependence on wheelchair; Z88.8 Allergy status to other drugs, medicaments and biological substances; Z88.3 Allergy status to other anti-infective agents; Z91.041 Radiographic dye allergy status
CPT/HCPCS: 36415; 70450; 71045; 72100; 72220; 80053; 80061; 83605; 84484; 85025; 85610; 85730; 86850; 86900; 86901; 93005; 96361; 96374; 99284; J2270

== ENCOUNTER → 2017-11-26 14:23 | Emergency (ER) | payer MEDICARE, OTHER ==
[~2017-11-26 14:23] MED LIST: Albuterol 0.5% CONC NEB.SOL* 5 MG/ML 20 ml BOT INH ONE; methylPREDNISolone 125 MG* 2 ML VIAL IV ONE
--- NOTE | 2017-11-26 15:20 | ED ---
Shortness of Breath - HPI Summary HPI Summary: This patient is a 82 year old M presenting [facility] accompanied by the man he lives with, with a chief complaint of SOB for the last 2 days. The patient rates the pain 2/10 in severity. Patient reports cough and left sided CP. [place] [facility] [place] had a syncopal episode, he eats at the hospital often and lives across the [address]. Pt is on a CPAP and NC 02 for COPD. Pt also has a rescue inhaler and an at home neb. - History of Current Complaint Chief Complaint: EDChestPainROMI Time Seen by Provider: 11/26/17 15:02 Hx Obtained From: Patient Onset/Duration: Lasting Days, Still Present, Worse Since Timing: Constant Dyspnea At: Rest Associated Signs & Symptoms: Cough (Nonproductive), Chest Pain Unrelated to Cough - Allergy/Home Medications Allergies/Adverse Reactions: Allergies Allergy/AdvReac Type Severity Reaction Status Date / Time nitroglycerin Allergy Severe Anaphylatic Verified 05/01/17 02:33 Shock levofloxacin Allergy Intermediate Itching Verified 05/01/17 02:33 Iodinated Contrast- Oral and AdvReac Severe Altered Verified 05/01/17 02:33 IV Dye Mental Status Home Medications: Home Medications Mometasone 220 MCG MDI * [Asmanex 220 MCG MDI *] 2 puff INH BID 11/26/17 [ History Confirmed 11/26/17] Zolpidem TAB* [Ambien TAB*] 5 mg PO BEDTIME PRN 11/26/17 [History Confirmed 09/07] guaiFENesin LIQ* [Robitussin*] 5 mg PO Q4H PRN 11/26/17 [History Confirmed 11/26] hydrOXYzine HCL TAB* [Atarax 10 MG TAB*] 10 mg PO TID PRN 11/26/17 [History Confirmed 11/26/17] metFORMIN* [Glucophage 500 MG TAB *] 500 mg PO DAILY WITH MEAL 11/26/17 [ History Confirmed 11/26/17] PMH/Surg Hx/FS Hx/Imm Hx Endocrine/Hematology History: Reports: Hx Anticoagulant Therapy, Hx Blood Transfusions, Hx Diabetes, Hx Anemia Denies: Hx Blood Disorders, Hx Bone Marrow Disease, Hx Systemic Lupus Erythematosus, Hx Sickle Cell Disease, Hx Thyroid Disease, Hx Unexplained Bleeding Cardiovascular History: Reports: Hx Angina, Hx Angioplasty, Hx Cardiac Arrest - 03/05/14, Hx Congestive Heart Failure, Hx Coronary Artery Disease, Hx Deep Vein Thrombosis, Hx Hypercholesterolemia, Hx Hypertension, Hx Myocardial Infarction, Hx Syncope, Hx Valvular Heart Disease Denies: Hx Aneurysm, Hx Auto Implanted Cardiovert Defib, Hx Cardiomegaly, Hx Congenital Heart Disease, Hx Hypotension, Hx Pacemaker/ICD, Hx Peripheral Vascular Disease, Hx Rheumatic Fever, Other Cardiovascular Problems/Disorders Respiratory History: Reports: Hx Chronic Bronchitis, Hx Chronic Obstructive Pulmonary Disease (COPD), Hx Pleural Effusion, Hx Pneumonia, Hx Pulmonary Edema , Hx Sleep Apnea - CPAP, Other Respiratory Problems/Disorders - Bronchitis Denies: Hx Asthma, Hx Cystic Fibrosis, Hx Lung Cancer, Hx Pulmonary Embolism , Hx Seasonal Allergies GI History: Reports: Hx Gastroesophageal Reflux Disease, Hx Hiatal Hernia, Hx Obstructive Bowel Denies: Hx Cirrhosis, Hx Crohn's Disease, Hx Diverticulosis, Hx Gall Bladder Disease, Hx Gastrointestinal Bleed, Hx Irritable Bowel, Hx Jaundice, Hx Ileostomy, Hx Pyloric Stenosis, Hx Ulcer, Other GI Disorders History: Reports: Hx Benign Prostatic Hyperplasia, Hx Kidney Infection Denies: Hx Acute Renal Failure, Hx Chronic Renal Failure, Hx Dialysis, Hx Kidney Stones, Other Problems/Disorders Musculoskeletal History: Reports: Hx Arthritis, Hx Back Problems, Other Musculoskeletal History - BLE weakness hx CVA, uses scooter at home Denies: Hx Bursitis, Hx Congenital Bone Abnormalities, Hx Fibromyalgia, Hx Gout, Hx Orthopedic Injury, Hx Osteoporosis, Hx Scoliosis, Hx Tendonitis Sensory History: Reports: Hx Cataracts - due for sx, Hx Contacts or Glasses, Hx Vision Problem, Hx Hearing Aid - at home, Hx Hearing Problem Denies: Hx Eye Injury, Hx Eye Prosthesis, Hx Glaucoma, Hx Legally Blind, Hx Macular Degeneration, Hx Deafness, Other Sensory Impairments Opthamlomology History: Reports: Hx Cataracts - due for sx, Hx Contacts or Glasses, Hx Vision Problem Denies: Hx Eye Injury, Hx Eye Prosthesis, Hx Glaucoma, Hx Legally Blind, Hx Macular Degeneration, Other Sensory Impairments Neurological History: Reports: Hx Seizures, Hx Transient Ischemic Attacks (TIA) Denies: Hx Dementia, Hx Developmental Delay, Hx Headaches, Hx Migraine, Hx Nerve Disease, Hx Spinal Cord Injury, Other Neuro Impairments/Disorders Psychiatric History: Reports: Hx Anxiety, Hx Depression - He thinks about the of his and son often., Hx Post Traumatic Stress Disorder, Other Psychiatric Issues/Disorders - Had one episode of emotional shock, but no depression etc since. Denies: Hx Attention Deficit Hyperactivity Disorder, Hx Eating Disorder, Hx Panic Disorder, Hx Inpatient Treatment, Hx Community Mental Health Tx, Hx Schizophrenia, Hx Bipolar Disorder, Hx Suicide Attempt, Hx of Violent Episodes Against Others, Hx Substance Abuse - Cancer History Cancer Type, Location and Year: Skin cancer on scalp - Surgical History Surgery Procedure, Year, and Place: Bypass 2008. hernia 1957. left shoulder sx in [place] in 1965. CABG. 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 Denies: Hx Clostridium Difficile, Hx Hepatitis, Hx Human Immunodeficiency Virus (HIV), Hx Shingles, Hx Tuberculosis, Hx Known/Suspected VRE, History Other Infectious Disease, Traveled Outside the [place] in Last 30 Days - Family History Known Family History: Positive: Cardiac Disease, Diabetes, Other - uterine CA, colon CA - Social History Alcohol Use: None Hx Substance Use: No Substance Use Type: Reports: None Hx Tobacco Use: No Smoking Status (MU): Never Smoked Tobacco Have You Smoked in the Last Year: No Review of Systems Negative: Fever Positive: Chest Pain Positive: Shortness Of Breath, Cough Positive: Syncope All Other Systems Reviewed And Are Negative: Yes Physical Exam - Summary Physical Exam Summary: Appearance: Obese patient who is in moderate distress Skin: Warm, dry, no obvious rash Eyes: sclera anicteric, no conjunctival pallor ENT: mucous membranes moist, pharynx appears normal Neck: Supple, nontender Respiratory: patient is using increased effort to breath, there are diminished breath sounds diffusely with decreased aeration without wheezing Cardiovascular: Normal S1, S2. No murmurs. Normal distal pulses in tibial and radial bilaterally. Abdomen: Soft, nontender, normal active bowel sounds present Musculoskeletal: no significant peripheral edema. Neurological: A&Ox3, awake and alert, mentation is normal, speech is fluent and appropriate Psychiatric: affect is normal, does not appear anxious or depressed Triage Information Reviewed: Yes Vital Signs On Initial Exam: Initial Vitals Temp Pulse Resp BP Pulse Ox 97.8 F 54 26 100/81 94 11/26/17 14:38 09/06/18 14:38 11/26/17 14:38 11/26/17 14:38 11/26/17 14:38 Vital Signs Reviewed: Yes Diagnostics - Vital Signs Vital Signs Temp Pulse Resp BP Pulse Ox 11/26/17 14:38 97.8 F 54 26 100/81 94 - Laboratory Result Diagrams: 11/26/17 15:31 11/26/17 15:31 Lab Statement: Any lab studies that have been ordered have been reviewed, and results considered in the medical decision making process. - Radiology CXR Radiology Interpretation Completed By: Radiologist - Mild pulmonary vascular congestion and interstitial edema with associated RIGHT larger than LEFT dependent pleural effusions. ED physician has reviewed this radiology report. - EKG 1455 Cardiac Rate: Other Rate EKG Rhythm: Atrial Fibrillation - at 52 BPM EKG Interpretation: SR, prolonged ND interval EKG Comparison: No Significant Change - similar to EKG from 05-28-17 Re-Evaluation - Re-Evaluation First Eval Re-Evaluation Time: 16:29 Change: Improved Course/Dx - Course Assessment/Plan: This patient is a 82 year old M presenting to [facility] accompanied by the man he lives with, with a chief complaint of SOB for the last 2 days. The patient rates the pain 2/10 in severity. Patient reports cough and left sided CP. [place], he eats at the hospital often and lives across the [place]. Pt is on a CPAP and NC 02 for COPD. Pt also has a rescue inhaler and an at home neb. An EKG reveals afib, SR, prolonged ND interval,. CXR reveals, per radiologist, Mild pulmonary vascular congestion and interstitial edema with associated RIGHT larger than LEFT dependent pleural effusions. Bloodwork obtained. In the ED course the patient was given albuterol and solu-medrol, which alleviated sx. Patient will be discharged and follow up from PCP. The patient is agreeable with this plan. - Diagnoses Provider Diagnoses: COPD exacerbation Discharge - Sign-Out/Discharge Documenting (check all that apply): Patient Departure - Discharge Plan Condition: Improved Disposition: HOME Prescriptions: Amoxicillin/Clavulanate TAB* [Augmentin TAB 875*] 875 mg PO BID 7 Days #14 tab predniSONE TAB* [Deltasone 20 MG TAB*] 40 mg PO DAILY 5 Days #10 tab Patient Education Materials: COPD (Chronic Obstructive Pulmonary Disease) (ED) Referrals: Jeremiah Ruano MD [Primary Care Provider] - Additional Instructions: The prednisone is good for your breathing problem but will tend to make your blood sugar go up while you are on it. As long it stays under 300, that is ok for a short time, but if it goes above 300 you should contact your doctor for instructions on either stopping the prednisone or taking more insulin. You should also use your nebulizer every 4 hrs as needed. - Billing Disposition and Condition Condition: IMPROVED Disposition: Home - Attestation Statements Document Initiated by Mauricio: Yes Documenting Scribe: Eligio Smith Provider For Whom Mauricio is Documenting (Include Credential): Foster Moody MD Scribe Attestation: Eligio Mack, scribed for Foster Moody MD on 11/27/17 at 0845. Scribe Documentation Reviewed: Yes Provider Attestation: The documentation as recorded by the Eligio couch accurately reflects the service I personally performed and the decisions made by me, Foster Moody MD
[2017-11-26 15:38] LABS: ABS Basophils 0 10^3/ul (0-0.2); ABS Eosinophils 0.2 10^3/ul (0-0.6); ABS Monocytes 0.6 10^3/ul (0-0.8); ABS Neutrophils 5.2 10^3/ul (1.5-7.7); ABS Nucleated RBC 0 10^3/ul; Eosinophil % 2.9 % (0-6); Hematocrit 39 % (42-52); Hemoglobin 13.1 g/dl (14.0-18.0); Lymphocyte % 14.1 % (25-47); Mean Corpuscular HGB Conc 34 g/dl (31-36); Mean Corpuscular Hemoglobin 28 pg (27-31); Mean Corpuscular Volume 84 fL (80-94); Mean Platelet Volume 7.7 um3 (7.4-10.4); Nucleated Red Blood Cells % 0.1; Platelet Count 150 10^3/ul (150-450); Red Blood Count 4.61 10^6/ul (4.00-5.40); Red Cell Distribution Width 15 % (10.5-15)
[2017-11-26 15:44] LABS: INR 2.18 (0.77-1.02)
[2017-11-26 15:56] LABS: EGFR Non-African American 51.3 (>60)
--- NOTE | 2017-11-26 16:14 | RAD ---
Indication: Shortness of breath. LEFT side chest pain. History of bronchitis and congestive heart failure. Comparison: May 28, 2017 Technique: Upright AP 1555 hours Report: Suggestion of moderate dependent RIGHT pleural effusion with proportional atelectasis. Probable trace LEFT pleural effusion. Negative for pneumothorax. Median sternotomy wires. Upper normal heart size. Prominent ill-defined central pulmonary vasculature. Mild prominence of the interstitial markings. IMPRESSION: #. Mild pulmonary vascular congestion and interstitial edema with associated RIGHT larger than LEFT dependent pleural effusions.
[2017-11-26 17:48] VITALS: BP 132/77
== END | disposition home or self-care (01) ==
LOC: ED 14:23
DX: J44.9 Chronic obstructive pulmonary disease, unspecified (principal); R05 Cough; R07.9 Chest pain, unspecified; Z79.01 Long term (current) use of anticoagulants; R55 Syncope and collapse
CPT/HCPCS: 36415; 71045; 80053; 83605; 84484; 85025; 85610; 93005; 96374; 99282; J2930; J7611

== ENCOUNTER 2018-03-08 17:55 | Inpatient (IN) | payer MEDICARE, OTHER ==
[2018-03-08] MEDS ORDERED: methylPREDNISolone 125 MG* 2 ML VIAL IV ONE (18:15)
[2018-03-08] MEDS ORDERED: Aspirin 81 mg CHEW TAB* 81 MG TAB.CHEW PO ONE (18:15)
[2018-03-08] MEDS ORDERED: Albuterol/Ipratropium NEB.SOL* Albuterol 2.5 MG/Ipratropium 0.5 MG 3 ML INH ONE (18:15)
--- NOTE | 2018-03-08 18:19 | ED ---
HPI Chest Pain - HPI Summary HPI Summary: The pt is an 82 y/o male presenting to [facility] c/o CP since 2 days ago. The pain is rated 6/10 in severity. He notes productive cough, fever, dyspnea, and heaving but denies abd pain and dizziness. He normally uses 4L oxygen at home. The pt reports that he is usually [id number]. Home Medications Medication Instructions Recorded Confirmed Type Furosemide TAB* [Lasix TAB*] 40 mg PO BID 12/01/12 03/08/18 History Aspirin EC TAB* [Ecotrin EC Low 81 mg PO QAM 10/05/13 03/08/18 History Dose 81 MG*] Albuterol HFA INHALER* [Ventolin 2 puff INH Q4H PRN 06/19/15 03/08/18 History HFA Inhaler*] Atorvastatin* [Lipitor 20 MG*] 10 mg PO DAILY 06/19/15 03/08/18 History Cholecalciferol TAB* [Vitamin D 2,000 units PO QAM 06/19/15 03/08/18 History TAB*] Finasteride TAB* [Proscar TAB*] 5 mg PO DAILY 06/19/15 03/08/18 History Sertraline* [Zoloft*] 100 mg PO QAM 06/19/15 03/08/18 History Nystatin CREAM* [Nystatin Cream*] 1 applic TOPICAL TID PRN 11/21/15 03/08/18 History Acetaminophen TAB* [Tylenol TAB*] 650 mg PO Q4H PRN 10/02/16 03/08/18 History Insulin GLARGINE(*) [Lantus(*)] 35 units SUBCUT BID 01/07/17 03/08/18 History Warfarin TAB(*) [Coumadin TAB(*)] 6 mg PO SUMOTUWETHFR 01/07/17 03/08/18 History Warfarin TAB(*) [Coumadin TAB(*)] 9 tab PO SA 01/07/17 03/08/18 History Metoprolol Tartrate TAB* 25 mg PO BID #60 tab 03/31/17 03/08/18 Rx [Lopressor TAB*] Mometasone 220 MCG MDI * [Asmanex 2 puff INH BID 11/26/17 03/08/18 History 220 MCG MDI *] Zolpidem TAB* [Ambien TAB*] 5 mg PO BEDTIME PRN 11/26/17 03/08/18 History guaiFENesin LIQ* [Robitussin*] 5 mg PO Q4H PRN 11/26/17 03/08/18 History hydrOXYzine HCL TAB* [Atarax 10 MG 10 mg PO TID PRN 11/26/17 03/08/18 History TAB*] metFORMIN* [Glucophage 500 MG TAB 500 mg PO DAILY WITH MEAL 11/26/17 03/08/18 History *] - History of Current Complaint Chief Complaint: EDChestPainROMI Time Seen by Provider: 03/08/18 18:11 Hx Obtained From: Patient Onset/Duration: Started Days Ago - 2 days, Still Present Timing: Constant Initial Severity: Moderate Current Severity: Moderate Pain Intensity: 6 Pain Scale Used: 0-10 Numeric Chest Pain Location: Diffuse Chest Pain Radiates: No Character: Dyspnea at Rest Aggravating Factor(s): Nothing Alleviating Factor(s): Oxygen Associated Signs and Symptoms: Positive: Chest Pain, Shortness of Breath, Fever , Productive Cough, Other: - Heaving. Negative: Dizziness, Abdominal Pain - Additional Pertinent History Primary Care Physician: [id number] - Allergy/Home Medications Allergies/Adverse Reactions: Allergies Allergy/AdvReac Type Severity Reaction Status Date / Time nitroglycerin Allergy Severe Anaphylatic Verified 03/08/18 18:08 Shock levofloxacin Allergy Intermediate Itching Verified 03/08/18 18:08 Iodinated Contrast- Oral and AdvReac Severe Altered Verified 03/08/18 18:08 IV Dye Mental Status Home Medications: Home Medications Sennosides [Natural Laxative] 2 tab PO BID PRN 03/09/18 [History Confirmed 03/09] PMH/Surg Hx/FS Hx/Imm Hx Previously Healthy: No Endocrine/Hematology History: Reports: Hx Anticoagulant Therapy, Hx Blood Transfusions, Hx Diabetes, Hx Anemia Denies: Hx Blood Disorders, Hx Bone Marrow Disease, Hx Systemic Lupus Erythematosus, Hx Sickle Cell Disease, Hx Thyroid Disease, Hx Unexplained Bleeding Cardiovascular History: Reports: Hx Angina, Hx Angioplasty, Hx Cardiac Arrest - 03/05/14, Hx Congestive Heart Failure, Hx Coronary Artery Disease, Hx Deep Vein Thrombosis, Hx Hypercholesterolemia, Hx Hypertension, Hx Myocardial Infarction, Hx Syncope, Hx Valvular Heart Disease Denies: Hx Aneurysm, Hx Auto Implanted Cardiovert Defib, Hx Cardiomegaly, Hx Congenital Heart Disease, Hx Hypotension, Hx Pacemaker/ICD, Hx Peripheral Vascular Disease, Hx Rheumatic Fever, Other Cardiovascular Problems/Disorders Respiratory History: Reports: Hx Chronic Bronchitis, Hx Chronic Obstructive Pulmonary Disease (COPD), Hx Pleural Effusion, Hx Pneumonia, Hx Pulmonary Edema , Hx Sleep Apnea - CPAP, Other Respiratory Problems/Disorders - Bronchitis Denies: Hx Asthma, Hx Cystic Fibrosis, Hx Lung Cancer, Hx Pulmonary Embolism , Hx Seasonal Allergies GI History: Reports: Hx Gastroesophageal Reflux Disease, Hx Hiatal Hernia, Hx Obstructive Bowel Denies: Hx Cirrhosis, Hx Crohn's Disease, Hx Diverticulosis, Hx Gall Bladder Disease, Hx Gastrointestinal Bleed, Hx Irritable Bowel, Hx Jaundice, Hx Ileostomy, Hx Pyloric Stenosis, Hx Ulcer, Other GI Disorders History: Reports: Hx Benign Prostatic Hyperplasia, Hx Kidney Infection Denies: Hx Acute Renal Failure, Hx Chronic Renal Failure, Hx Dialysis, Hx Kidney Stones, Other Problems/Disorders Musculoskeletal History: Reports: Hx Arthritis, Hx Back Problems, Other Musculoskeletal History - BLE weakness hx CVA, uses scooter at home Denies: Hx Bursitis, Hx Congenital Bone Abnormalities, Hx Fibromyalgia, Hx Gout, Hx Orthopedic Injury, Hx Osteoporosis, Hx Scoliosis, Hx Tendonitis Sensory History: Reports: Hx Cataracts - due for sx, Hx Contacts or Glasses, Hx Vision Problem, Hx Hearing Aid - at home, Hx Hearing Problem Denies: Hx Eye Injury, Hx Eye Prosthesis, Hx Glaucoma, Hx Legally Blind, Hx Macular Degeneration, Hx Deafness, Other Sensory Impairments Opthamlomology History: Reports: Hx Cataracts - due for sx, Hx Contacts or Glasses, Hx Vision Problem Denies: Hx Eye Injury, Hx Eye Prosthesis, Hx Glaucoma, Hx Legally Blind, Hx Macular Degeneration, Other Sensory Impairments Neurological History: Reports: Hx Seizures, Hx Transient Ischemic Attacks (TIA) Denies: Hx Dementia, Hx Developmental Delay, Hx Headaches, Hx Migraine, Hx Nerve Disease, Hx Spinal Cord Injury, Other Neuro Impairments/Disorders Psychiatric History: Reports: Hx Anxiety, Hx Depression - He thinks about the of his and son often., Hx Post Traumatic Stress Disorder, Other Psychiatric Issues/Disorders - Had one episode of emotional shock, but no depression etc since. Denies: Hx Attention Deficit Hyperactivity Disorder, Hx Eating Disorder, Hx Panic Disorder, Hx Inpatient Treatment, Hx Community Mental Health Tx, Hx Schizophrenia, Hx Bipolar Disorder, Hx Suicide Attempt, Hx of Violent Episodes Against Others, Hx Substance Abuse - Cancer History Cancer Type, Location and Year: Skin cancer on scalp - Surgical History Surgery Procedure, Year, and Place: Bypass 2008. hernia 195. left shoulder sx in [place] in 1965. CABG. 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 Denies: Hx Clostridium Difficile, Hx Hepatitis, Hx Human Immunodeficiency Virus (HIV), Hx Shingles, Hx Tuberculosis, Hx Known/Suspected VRE, History Other Infectious Disease, Traveled Outside the [place] in Last 30 Days - Family History Known Family History: Positive: Cardiac Disease, Diabetes, Other - uterine CA, colon CA - Social History Occupation: Retired Lives: Assisted Living Alcohol Use: None Hx Substance Use: No Substance Use Type: Reports: None Hx Tobacco Use: No Smoking Status (MU): Never Smoked Tobacco Have You Smoked in the Last Year: No Review of Systems Constitutional: Negative - Dizziness Positive: Chest Pain Respiratory: Other - Heaving Positive: Shortness Of Breath, Cough - Productive Negative: Abdominal Pain All Other Systems Reviewed And Are Negative: Yes Physical Exam - Summary Physical Exam Summary: Appearance: Well appearing, no pain distress Skin: warm, dry, reflects adequate perfusion Head/face: normal Eyes: EOMI, LJ ENT: normal Neck: supple, non-tender Respiratory: CTA, breath sounds present, occasional wheeze bilaterally Cardiovascular: RRR, pulses symmetrical Abdomen: non-tender, soft Musculoskeletal: normal, strength/ROM intact, Mild bilateral pedal edema Neuro: normal, sensory motor intact, A&Ox3 Triage Information Reviewed: Yes Vital Signs On Initial Exam: Initial Vitals Temp Pulse Resp BP Pulse Ox 98.7 F 85 22 141/76 100 03/08/18 18:01 03/08/18 18:01 03/08/18 18:01 03/08/18 18:01 03/08/18 18:01 Vital Signs Reviewed: Yes Diagnostics - Vital Signs Vital Signs Temp Pulse Resp BP Pulse Ox 03/08/18 18:01 98.7 F 85 22 141/76 100 - Laboratory Result Diagrams: 03/09/18 06:39 03/09/18 06:39 Lab Statement: Any lab studies that have been ordered have been reviewed, and results considered in the medical decision making process. - Radiology CXR Radiology Interpretation Completed By: ED Physician Summary of Radiographic Findings: IMPRESSION: R pleural effusion. - EKG 18: 29 Cardiac Rate: Other Rate - 84 bpm EKG Rhythm: Atrial Fibrillation Summary of EKG Findings: LBBB Chest Pain Course/Dx - Course Course Of Treatment: An 82 year-old M presents to the ED with a CC of CP since 2 days ago. The pain is rated 6/10 in severity. He notes productive cough, fever , SOB, and heaving but denies abd pain and dizziness. A physical exam revealed occasional wheezing bilaterally and mild bilateral pedal edema. A CXR reveals R pleural effusion. An EKG reveals Atrial fibrillation and LBBB. Labs revealed elevated troponin and BNP. In the ED course, the pt was given Albuterol 2 neb INH, ASA 324 mg PO and Methylprednisolone 125 mg which improved the symptoms. I discussed the care of the pt with Dr. Mcclendon who agreed to admit the pt. Patient will be admitted with a final Dx of COPD exacerbation and PNA. Pt is agreeable with this plan. Allergies noted. - Chest Pain Differential Diagnosis/HQI/PQRI: ACS, Chest Wall, Lower Respiratory Infection, Pulmonary Edema - Diagnoses Provider Diagnoses: COPD exacerbation, PNA (pneumonia) - Provider Notifications Discussed Care Of Patient With: Jeff Angelo Time Discussed With Above Provider: 21:09 Instructed by Provider To: Admit As Inpatient Discharge - Sign-Out/Discharge Documenting (check all that apply): Patient Departure - Admit - Discharge Plan Condition: Stable Disposition: ADMITTED TO [facility] - Billing Disposition and Condition Condition: STABLE Disposition: Admitted to [facility] - Attestation Statements Document Initiated by Scribe: Yes Documenting Scribe: Hannah Meza Provider For Whom Mauricio is Documenting (Include Credential): Dr. Cornelio Sahni MD Scribe Attestation: Hannah Mack scribed for Dr. Cornelio Sahni MD on 03/09/18 at 1236. Scribe Documentation Reviewed: Yes Provider Attestation: The documentation as recorded by the Hannah couch accurately reflects the service I personally performed and the decisions made by me, Dr. Cornelio Sahni MD Status of Scribe Document: Viewed
[2018-03-08 18:37] LABS: ABS Basophils 0 10^3/ul (0-0.2); ABS Eosinophils 0.1 10^3/ul (0-0.6); ABS Lymphocytes 0.7 10^3/ul (1.0-4.8); ABS Monocytes 0.6 10^3/ul (0-0.8); ABS Neutrophils 4.9 10^3/ul (1.5-7.7); ABS Nucleated RBC 0 10^3/ul; Eosinophil % 2.1 %; Hematocrit 42 % (42-52); Hemoglobin 14.2 g/dl (14.0-18.0); Lymphocyte % 10.7 %; Mean Corpuscular HGB Conc 34 g/dl (31-36); Mean Corpuscular Hemoglobin 28 pg (27-31); Mean Corpuscular Volume 84 fL (80-94); Mean Platelet Volume 7.9 fL (7.4-10.4); Nucleated Red Blood Cells % 0; Platelet Count 156 10^3/ul (150-450); Red Blood Count 5.01 10^6/ul (4.00-5.40); Red Cell Distribution Width 14 % (10.5-15); White Blood Count 6.3 10^3/ul (3.5-10.8)
[2018-03-08 18:48] LABS: Activated Partial Thrombo Time 31.9 seconds (26.0-36.3); INR 1.5 (0.77-1.02)
[2018-03-08 18:54] LABS: Albumin 3.8 g/dL (3.2-5.2); Albumin/Globulin Ratio 1.1 (1-3); BUN/Creatinine Ratio 23.3 (8-20); Calcium 9.3 mg/dL (8.6-10.3); EGFR Non-African American 42.1 (>60); Globulin 3.5 g/dL (2-4); Potassium 4.3 mmol/L (3.5-5.0); Total Bilirubin 0.7 mg/dL (0.2-1.0); Total Protein 7.3 g/dL (6.4-8.9)
[2018-03-08] MEDS ORDERED: Albuterol 2.5 MG/3 ML NEB.SOL* (0.083%) INH PRN (23:21)
[2018-03-08] MEDS ORDERED: Dextrose 50% Syringe 50 ML* 25 GM/50 ML SYRINGE IV PUSH PRN (23:23)
[2018-03-08] MEDS ORDERED: Acetaminophen TAB* 325 MG PO PRN (23:25)
[2018-03-08] MEDS ORDERED: cefTRIAXone(*) 1 GM in NS 0.9% 50 ML* 50 ML IVPB ONE (23:37)
[2018-03-08] MEDS ORDERED: Spiriva Inhaler DEVICE* 1 EACH DEVICE INH SCH (23:45)
[2018-03-09 02:27] LABS: Urine Appearance Turbid; Urine Bacteria 3+ (Absent); Urine Bilirubin Negative (Negative); Urine Blood 1+ (Negative); Urine Color Yellow; Urine Glucose 3+(>=500 mg/dL) (Negative); Urine Ketones Negative (Negative); Urine Nitrite Negative (Negative); Urine Protein Negative (Negative); Urine Red Blood Cell 1+(3-5/hpf) (Absent); Urine Specific Gravity 1.017 (1.010-1.030); Urine Urobilinogen Negative (Negative); Urine White Blood Cell 3+(>20/hpf) (Absent)
[2018-03-09] MEDS ORDERED: Insulin GLARGINE(*) 1 UNITS UNIT SUBCUT ONE (02:52)
[2018-03-09] MEDS ORDERED: Dextrose 50% Syringe 50 ML* 25 GM/50 ML SYRINGE IV PUSH PRN (02:53)
[2018-03-09] MEDS ORDERED: Insulin LISPRO* 1 UNITS UNIT SUBCUT ONE (02:53)
--- NOTE | 2018-03-09 02:55 | PN ---
Progress Note - Progress Note Date of Service: 03/09/18 Note: Addendum: FSG > 600 overnight Given 35U lantus and 15 units lispro. Recurring lantus not written. A more complete medication reconciliation needs to be completed when his aid/HCP Don can relay his home medications.
--- NOTE | 2018-03-09 04:39 | HP ---
ADMISSION HISTORY AND PHYSICAL: DATE OF ADMISSION: 03/09/18 PRIMARY CARE PROVIDER: Dr. Ruano with the [facility]. HEALTHCARE PROXY: His aide, Tamia. CODE STATUS: Full. CHIEF COMPLAINT: Multifactorial, but includes fall and potentially short of breath. SOURCE OF INFORMATION: History obtained from interview of patient, review of past medical records. Note, review of history from patient is remarkably difficult and he is a poor historian. HISTORY OF PRESENT ILLNESS: This is an 82-year-old man with past medical history that is complicated but includes CAD with a history of a CABG in 2013 as well as a history of CVA and type 2 diabetes; atrial fibrillation, on anticoagulation; TAMICA as well as obesity hypoventilation syndrome, on BIPAP, who thinks he may have had a stroke 2 weeks ago because he had garbled speech for approximately 3 days. He notes he did not come to the hospital at that time because he does not like the hospital. When interrogated further, he indicates that even if the treatment for a new stroke were to include medication that had any increased risk of bleeding, he would decline it. He is not asking for further workup of any potential stroke. He notes though over the last week he fell approximately 5 times and in addition to his chronic shortness of breath, it has been increasing over the last week. He fell again today and noted that he had increased shortness of breath this afternoon associated with an increased chest pressure. He noted a headache, which was part of the reason that he came to the hospital in addition to the fall. He notes that the chest pain this afternoon lasted for approximately 3 hours. It is difficult to characterize the character of the pain, but also includes nausea over the last few days with decreased appetite and emesis last night and again today. He notes fever of 102 degrees today associated with dysuria, urinary frequency and urgency. PAST MEDICAL HISTORY: Includes CAD including CABG in 2014; history of CVA with residual left facial droop; type 2 diabetes; atrial fibrillation, on anticoagulation, however is transitioned from Coumadin and does not know the name of his medication; hypertension; COPD; tracheomalacia, perhaps a prolonged intubation; TAMICA; obesity hypoventilation syndrome; history of DVT, on anticoagulation; BPH; depression; history of tracheostomy and hernia repair. MEDICATIONS: The patient is unable to tell me any of his medications including his anticoagulant. He notes he gets his medications through the [facility]. His aide, Tamia, knows the medications and will be available in the morning. His roommate will be unable to access his medications because they are in a locked box. For this reason, it seems unlikely we will identify any of the medications tonight and this requires medication reconciliation tomorrow. ALLERGIES: Include oral and IV CONTRAST DYE, NITROGLYCERIN, LEVOFLOXACIN. FAMILY HISTORY: Reviewed and noncontributory to this admission. SOCIAL HISTORY: No tobacco or alcohol. 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 He served in the [place] war and notes he was the vet of the year in 2018. REVIEW OF SYSTEMS: As per HPI, otherwise all other systems negative. PHYSICAL EXAMINATION GENERAL: He is younger than stated age. VITAL SIGNS: In the emergency room, 104/59, heart rate is 85, respiratory rate is 19. He is 98% on 4 L. I did not attempt to titrate down. His T-max is 98.7. HEENT: His oropharynx is clear. He has dry mucous membranes. His sclerae are anicteric. LUNGS: Clear. HEART: He has an irregularly irregular heart rate. ABDOMEN: Soft, nontender, nondistended. EXTREMITIES: Warm and well perfused without clubbing, cyanosis, or edema. NEUROLOGIC: He has a left facial droop. His speech is slightly garbled. His gait was not assessed. He is chronically wheelchair bound. He is alert and oriented x3. He is pleasant. He has no apparent anxiety, agitation, or depression. DATA REVIEWED: Troponin I was 0.04 on 2 consecutive checks. Alk phos 105. His glucose is 398. His BUN is 37. His creatinine is 1.59. White blood cell count is 6.3. His INR is 1.5. D-dimer of 378. He had an ABG notable for pH of 7.45, partial pressure of CO2 of 39, partial pressure of oxygen is 96 on an FiO2 of 4 L. Chest x-ray compared to November 2017 has mild pulmonary vascular congestion. No consolidation on this author's interpretation. Please follow up for complete read in the morning. EKG: Left bundle-branch block and atrial fibrillation. ASSESSMENT AND PLAN: This is an 82-year-old man with complex past medical history including coronary artery disease, chronic obstructive pulmonary disease , atrial fibrillation, diabetes, past history of cerebrovascular accident, a history of deep venous thrombosis and obstructive sleep apnea, using BiPAP, presented to the hospital for unknown reasons but appears to be increasing falls associated with shortness of breath and then at least 3 hours of chest pain. The context of these presenting symptoms was the offhand information that he believes he had a stroke 2 weeks prior because he had garbled speech for several days. Garbled speech: Unclear whether the patient had a cerebrovascular accident. He does have residual left facial droop from previous cerebrovascular accident. I did interrogate at length whether the patient would want evaluation and management of a new stroke and he vehemently declines. Shortness of breath: The patient indicates he feels 50 times better since presentation after receipt of medication, which included 125 mg methylprednisolone. For this reason, I believe chronic obstructive pulmonary disease exacerbation is likely in the setting of its improvement with intervention as well as history of chronic obstructive pulmonary disease with previous hospital stays for this reason. We will continue with methylprednisolone tomorrow 40 mg twice daily as well as Dulera, tiotropium, and albuterol nebulizers as needed. Follow official interpretation of chest x- ray. Of note, I am holding his Lasix before we can identify the current dosing. It will likely need to be reinstituted if he is currently still continuing it as to avoid potential volume overload. Atrial fibrillation: The patient does need a medication reconciliation. It is unclear what medication the patient is taking and at what frequency. I am contemplating giving him Lovenox one dose now, however, unclear whether the patient is taking a medication that is daily such as rivaroxaban and which would increase his risk of bleeding at this point. For that reason, I am holding Lovenox and the patient needs to be reconciled to continue his anticoagulant tomorrow. Obstructive sleep apnea: Continue BiPAP 02/25. The patient does know these numbers. History of deep venous thrombosis: Again, his medications need to be reconciled. Chest pain: Suspect in the setting of chronic obstructive pulmonary disease exacerbation; however, he does have a history of CABG and is a fairly poor historian. We will continue troponins. I have ordered a stress test tomorrow. Fever at home: The patient endorsed dysuria, frequency, and urgency. A urine sample is pending. If the patient is unable to give a urine, he should have a straight catheterization. I am ordering one dose of ceftriaxone prior to the receipt of his urine. I will relay to his care provider in the ED that he should not receive the antibiotic prior to giving a urine sample. Type 2 diabetes: Unknown Lantus dose. I will continue insulin sliding scale. I suspect his sugar will be high in the morning. He will be n.p.o. though and for this reason again we will not make a guess or erickson at his current Lantus dosing and hold it until his medications can be confirmed in the morning. DVT prophylaxis will be SCDs overnight until his medications can be reconciled and we do not double dose him with blood thinners. [id number]/CPS #: [id number] MTDD
[2018-03-09 06:51] LABS: Hematocrit 41 % (42-52); Hemoglobin 13.6 g/dl (14.0-18.0); Mean Corpuscular HGB Conc 34 g/dl (31-36); Mean Corpuscular Hemoglobin 28 pg (27-31); Mean Corpuscular Volume 85 fL (80-94); Red Blood Count 4.79 10^6/ul (4.00-5.40); Red Cell Distribution Width 15 % (10.5-15); White Blood Count 7.2 10^3/ul (3.5-10.8)
[2018-03-09 07:07] LABS: BUN/Creatinine Ratio 22.8 (8-20); Calcium 9.1 mg/dL (8.6-10.3); EGFR Non-African American 39.8 (>60); Magnesium 2.2 mg/dL (1.9-2.7); Potassium 4.4 mmol/L (3.5-5.0)
[2018-03-09] MEDS: Mometasone/Formoter 200/5 MDI INH SCH ×2 (07:24→20:27)
[2018-03-09] MEDS: Tiotropium CAP.INH* CAP.INH/18 MCG (USE ORDER SET !) INH SCH (07:25)
[2018-03-09 07:42] LABS: ABS Basophils 0 10^3/ul (0-0.2); ABS Eosinophils 0 10^3/ul (0-0.6); ABS Lymphocytes 0.4 10^3/ul (1.0-4.8); ABS Monocytes 0.2 10^3/ul (0-0.8); ABS Neutrophils 6.7 10^3/ul (1.5-7.7); ABS Nucleated RBC 0 10^3/ul; Eosinophil % 0.1 %; Lymphocyte % 4.9 %; Nucleated Red Blood Cells % 0
[2018-03-09] MEDS: Insulin LISPRO* 1 UNITS UNIT SUBCUT SCH ×4 (07:50→20:15)
[2018-03-09] MEDS: Finasteride TAB* 5 MG PO SCH (07:51)
[2018-03-09] MEDS: Aspirin EC TAB* 81 MG TAB.EC PO SCH (07:51)
[2018-03-09] MEDS: Atorvastatin* 10 MG TAB PO SCH (07:51)
[2018-03-09] MEDS: methylPREDNISolone SOD 40 MG* 1 ML VIAL IV SCH ×2 (07:51→20:14)
[2018-03-09] MEDS ORDERED: Spiriva Inhaler DEVICE* 1 EACH DEVICE INH ONE (09:00)
[2018-03-09] MEDS ORDERED: Aminophylline IV* 25 MG/ML 10 ML VIAL ONE (11:57)
[2018-03-09] MEDS ORDERED: Regadenoson* 0.4 MG/5 ML SYRINGE ONE (11:57)
[2018-03-09] MEDS ORDERED: hydrOXYzine HCL TAB* 10 MG PO PRN (13:12)
[2018-03-09] MEDS ORDERED: Zolpidem TAB* 5 MG PO PRN (13:12)
[2018-03-09] MEDS ORDERED: guaiFENesin LIQ* 100 MG/5 ML UDC PO PRN (13:12)
[2018-03-09] MEDS ORDERED: Nystatin CREAM* 30 GM TOPICAL PRN (13:12)
[2018-03-09] MEDS ORDERED: Albuterol HFA INHALER* 8 gm MDI INH PRN (13:12)
[2018-03-09] MEDS ORDERED: Senna TAB PO PRN (13:12)
[2018-03-09] MEDS ORDERED: Warfarin TAB(*) 1 MG PO SCH (14:00)
[2018-03-09] MEDS: Sertraline* 100 MG TAB PO SCH (14:47)
--- NOTE | 2018-03-09 16:23 | PN ---
Subjective Date of Service: 03/09/18 Interval History: HOSPITALIST PROGRESS NOTE Patient seen and examined at bedside. Care reviewed and d/w Rossi Reynaga RN. He feels much better today. States he got an injection in the ED that made him feel like "super man"(probably Solumedrol). States his breathing is improved, but not yet back to baseline. No further episodes of chest pain. Family History: Unchanged from Admission Social History: Unchanged from Admission Past Medical History: Unchanged from Admission Objective Active Medications: Acetaminophen (Tylenol Tab*) 650 mg PO Q4H PRN PRN Reason: PAIN Albuterol (Ventolin 2.5 Mg/3 Ml Neb.Kika*) 2.5 mg INH Q4H PRN PRN Reason: SOB/WHEEZING Albuterol (Ventolin Hfa Inhaler*) 2 puff INH Q4H PRN PRN Reason: SOB/WHEEZING Aspirin (Aspirin Ec Tab*) 81 mg PO QAM [facility] Last Admin: 03/09/18 07:51 Dose: 81 mg Atorvastatin Calcium (Lipitor*) 10 mg PO DAILY [facility] Last Admin: 03/09/18 07:51 Dose: 10 mg Cholecalciferol (Vitamin D Tab*) 2,000 units PO QAM [facility] Dextrose (D50w Syringe 50 Ml*) 12.5 gm IV PUSH .FOR FS < 60 - SS PRN PRN Reason: FS < 60 Finasteride (Proscar Tab*) 5 mg PO DAILY [facility] Last Admin: 03/09/18 07:51 Dose: 5 mg Furosemide (Lasix Tab*) 40 mg PO BID [facility] Guaifenesin (Robitussin*) 5 ml PO Q4H PRN PRN Reason: COUGH Hydroxyzine HCl (Atarax Tab*) 10 mg PO TID PRN PRN Reason: ANXIETY Insulin Glargine (Lantus(*)) 35 units SUBCUT BID [facility] Insulin Human Lispro (Humalog*) 0 units SUBCUT ACHS [facility]; Protocol Last Admin: 03/09/18 12:21 Dose: Not Given Methylprednisolone Sodium Succinate (Solu-Medrol 40 Mg) 40 mg IV Q12H [facility] Last Admin: 03/09/18 07:51 Dose: 40 mg Metoprolol Tartrate (Lopressor Tab*) 25 mg PO BID [facility] Mometasone Furoate (Asmanex 220 Mcg Mdi *) 2 puff INH BID [facility]; Protocol Mometasone Furoate/Formoterol Fumar (Dulera 200/5 Mdi*) 2 puff INH BID [facility] Last Admin: 03/09/18 07:24 Dose: 2 puff Nystatin (Nystatin Cream*) 1 applic TOPICAL TID PRN PRN Reason: RASH Senna (Senokot Tab*) 2 tab PO BID PRN PRN Reason: CONSTIPATION Sertraline HCl (Zoloft*) 100 mg PO QAM [facility] Last Admin: 03/09/18 14:47 Dose: 100 mg Tiotropium [place] (Spiriva Cap.Inh*) 1 cap INH DAILY [facility] Last Admin: 03/09/18 07:25 Dose: 1 cap Warfarin Sodium (Coumadin Tab(*)) 6 mg PO SUMOWEFR [facility]; Protocol Warfarin Sodium (Coumadin Tab(*)) 3 mg PO TUTHSA [facility]; Protocol Last Admin: 03/09/18 14:47 Dose: 3 mg Zolpidem Tartrate (Ambien Tab*) 5 mg PO BEDTIME PRN PRN Reason: SLEEP Vital Signs - 8 hr 03/09/18 11:03 Temperature 97.3 F Pulse Rate 70 Respiratory 16 Rate Blood Pressure 129/58 (mmHg) O2 Sat by Pulse 100 Oximetry Oxygen Devices in Use Now: Nasal Cannula Appearance: Elderly morbid obese gentleman lying in bed in NAD. Eyes: No Scleral Icterus Ears/Nose/Mouth/Throat: Mucous Membranes Moist Neck: Trachea Midline Respiratory: Symmetrical Chest Expansion and Respiratory Effort, - - BS+ bilaterally diminished with no added sounds Cardiovascular: - - Normal S1 and S2, irregularly irregular Abdominal: NL Sounds; No Tenderness; No Distention - morbid obese Neurological: Alert and Oriented x 3, NL Muscle Strength and Tone Result Diagrams: 03/09/18 06:39 03/09/18 06:39 Assess/Plan/Problems-Billing Assessment: Mr Escamilla is an 82yo M with PMH of morbid obesity with BMI 41.5, CAD s/p CABG, CVA with residual left hemiparesis, type 2 DM, Afib, HTN, COPD, tracheomalacia ( h/o tracheostomy), TAMICA, obesity hypoventilation syndrome, DVT, BPH, depression, who presented to ED with c/o dyspnea and CP, found to have COPD exacerbation. - Patient Problems (1) COPD exacerbation Comment: - Suspect secondary to viral infection. - Continue steroids and bronchodilators. - No antibiotics. (2) Chest pain Comment: - Troponins at baseline around 0.05. - Chest pain is resolved. - Stress test showed small area of reversible change in the inferior wall with normal EF. - Continue medical management with Aspirin, Atorvastatin, Metoprolol. - Suspect chest pain was secondary to increased demand in the setting of dyspnea. (3) Afib Comment: - Rate is controlled with Metoprolol. - As per medication list, patient is on Warfarin. - Will bridge with Lovenox while INR is subtherapeutic. (4) TAMICA (obstructive sleep apnea) Comment: - Continue BiPAP. (5) UTI (urinary tract infection) Comment: - Continue Ceftriaxone and follow culture. (6) Diabetes mellitus Comment: - Continue Lantus and Lispro SS. (7) DVT prophylaxis Comment: - Lovenox/Warfarin. (8) Full code status Status and Disposition: Inpatient.
[2018-03-09] MEDS: Metoprolol Tartrate TAB* 25 MG PO SCH (20:14)
[2018-03-09] MEDS: Furosemide TAB* 40 MG PO SCH (20:14)
[2018-03-09] MEDS: Insulin GLARGINE(*) 1 UNITS UNIT SUBCUT SCH (20:17)
[2018-03-09] MEDS: Enoxaparin(*) 150 MG/ML 1 ML SYRINGE SUBCUT SCH (20:18)
[2018-03-09] MEDS: Mometasone 220 MCG MDI INH SCH (20:26)
[2018-03-09] MEDS ORDERED: cefTRIAXone VIAL(*) 1,000 MG VIAL IVPB SCH (23:00)
[2018-03-09] MEDS: cefTRIAXone* 1 GM in NS 0.9% 50 ML BAG IVPB SCH (23:42)
[2018-03-10 06:10] LABS: INR 1.56 (0.77-1.02)
[2018-03-10 06:20] LABS: BUN/Creatinine Ratio 37.8 (8-20); Calcium 9.1 mg/dL (8.6-10.3); EGFR Non-African American 50.9 (>60); Potassium 4.7 mmol/L (3.5-5.0)
[2018-03-10] MEDS: Tiotropium CAP.INH* CAP.INH/18 MCG (USE ORDER SET !) INH SCH (07:42)
[2018-03-10] MEDS: Mometasone/Formoter 200/5 MDI INH SCH ×2 (07:43→19:24)
[2018-03-10] MEDS: Mometasone 220 MCG MDI INH SCH ×2 (07:43→19:23)
[2018-03-10] MEDS ORDERED: metFORMIN* 500 MG TAB PO SCH (08:30)
[2018-03-10] MEDS: Metoprolol Tartrate TAB* 25 MG PO SCH ×2 (08:56→20:47)
[2018-03-10] MEDS: Sertraline* 100 MG TAB PO SCH (09:10)
[2018-03-10] MEDS: Atorvastatin* 10 MG TAB PO SCH (09:10)
[2018-03-10] MEDS: Cholecalciferol TAB* 1000 UNITS PO SCH (09:10)
[2018-03-10] MEDS: methylPREDNISolone SOD 40 MG* 1 ML VIAL IV SCH ×2 (09:10→20:45)
[2018-03-10] MEDS: Aspirin EC TAB* 81 MG TAB.EC PO SCH (09:10)
[2018-03-10] MEDS: Finasteride TAB* 5 MG PO SCH (09:10)
[2018-03-10] MEDS: Furosemide TAB* 40 MG PO SCH ×2 (09:10→20:47)
[2018-03-10] MEDS: Insulin LISPRO* 1 UNITS UNIT SUBCUT SCH ×4 (09:11→20:44)
[2018-03-10] MEDS: Insulin GLARGINE(*) 1 UNITS UNIT SUBCUT SCH (09:11)
[2018-03-10] MEDS ORDERED: Warfarin TAB(*) 6 MG PO SCH (13:12)
--- NOTE | 2018-03-10 14:48 | CONS ---
CONSULTATION REPORT: DATE OF CONSULT: 03/10/18 PROVIDER: Cassandra Quick NP dictating for Dr. Jaclyn Cuadra, Cardiology. REASON FOR CONSULT: Abnormal stress test, history of coronary artery disease with remote bypass in 2009. PRIMARY CUPOLA MELTER HELPER: Shane, [facility]. PRIMARY CARE PHYSICIAN: Dr. Ruano; however, the patient states that he sees Kamla Henry. CHIEF COMPLAINT: Shortness of breath, chest pain. HISTORY OF PRESENT ILLNESS: This is a pleasant 82-year-old male patient with a known history of branch vessel coronary artery disease with bioprosthetic AVR in 2009 at the [place], [place] in addition to paroxysmal atrial flutter, on Coumadin therapy, CVA x4, known left bundle-branch block, chronic kidney disease , baseline creatinine runs between 1.2 and 1.5, severe aortic stenosis based on March 2016 echocardiogram, hypertension, obstructive sleep apnea, COPD, Pickwickian syndrome. The patient presented to [facility] [place] Emergency Department on due to complaints of increased shortness of breath. He states symptoms started the week prior where he started to increase his O2 requirement. He typically wears 3 L via nasal cannula; however, he had to increase O2 to 4 L nasal cannula. He adds that he was experiencing intermittent burning chest pain with shortness of breath. He states that this is not his known anginal equivalent, apparently his anginal equivalent was sharp stabbing chest pain in 2009. He adds that on Thursday night he had a 102-degree fever which he took Tylenol for. He has had increased wheezing and coughing with white sputum production, although he states that the white sputum production is chronic and ongoing. He denies palpitations, sensation of heart racing, edema, abdominal distention, dizziness, or syncope. While being evaluated in the emergency department, he was given albuterol nebulizer and methylprednisone which reportedly improved symptoms. Troponin was elevated at 0.04. Subsequently, he was admitted to telemetry for COPD exacerbation, rule out ACS. He is risk stratified with a Lexiscan nuclear stress test, 03/09/18. ECG portion was nondiagnostic due to known underlying left bundle-branch block. Nuclear imaging revealed a possible small area of reversible change in the inferior wall. Normal LVEF, normal wall motion. Thus, we were consulted for abnormal cardiovascular study. He denies chest pain today and states breathing has improved. Apparently, last night, he had to be assisted to the ground due to weakness. He denies syncope or dizziness. PAST MEDICAL HISTORY: Includes: 1. Coronary artery disease. 2. COPD. 3. Obstructive sleep apnea. 4. Hypertension. 5. Seizure disorder. 6. Pickwickian syndrome. 7. Severe aortic stenosis. 8. Paroxysmal AFib/flutter. 9. Diabetes mellitus. 10. Hyperlipidemia. 11. Morbid obesity. 12. Known left bundle-branch block. 13. CVA x4. 14. Chronic kidney disease. PAST SURGICAL HISTORY: Includes: 1. Left heart catheterization in 2009. 2. Bioprosthetic AVR, 12/30/09 at [facility] 3. Tracheostomy in 2014. 4. Hernia repair. HOME MEDICATIONS: Per admission med rec. ALLERGIES: Include LEVOFLOXACIN which causes rash, IODINATED CONTRAST DYE which causes seizures, NITROGLYCERIN which apparently causes anaphylaxis. FAMILY HISTORY: Noncontributory. SOCIAL HISTORY: The patient lives at home. He states that his aide lives with him. He denies ever smoking tobacco products. Denies alcohol or drug abuse. He ambulates with a walker and also wheelchair. REVIEW OF SYSTEMS: All systems have been reviewed and otherwise negative except as above mentioned in the HPI. PHYSICAL EXAM: Temperature 97.4, pulse 49, respirations 16, oxygenation 100% on 5 L nasal cannula, blood pressure 117/57. General: The patient was sleeping upright in chair upon entering the room. He is pleasant and cooperative with exam, although he does have some difficulty recalling information. He appears well nourished and is in no apparent distress. BMI is 41.5. HEENT: Head is atraumatic, normocephalic. Oral mucosa is moist. He does have known left hemiparesis which is residual from prior CVA. Neck: Supple. No JVD. No carotid bruits. Cardiac: Normal S1, S2. Regular rate and rhythm. There is a grade 4/6 early systolic murmur auscultated at the right sternal border. Otherwise, no gallop or rub. Lungs: Auscultated posteriorly. There is a harsh cough, slight inspiratory wheezes noted with rales. No evidence for retractions. /GI: Abdomen is protuberant, distended, nontender. Normoactive bowel sounds x4. Extremities: No pedal edema, no clubbing, no cyanosis. Peripheral Vascular: 3+ brachial pulse palpated bilaterally and symmetrically. 2+ dorsalis pedis auscultated bilaterally and symmetrically. Skin: Intact. No evidence of jaundice, rashes, or ecchymosis appreciated. DIAGNOSTIC STUDIES/LAB DATA: Blood work from today, 03/10/18, sodium 137, potassium 4.7, chloride 103, carbon dioxide 27, BUN 51, creatinine 1.35, glucose 238. Troponin peaked yesterday at 6:39 in the morning at 0.05. CBC from 03/09/18, white count 7.2, hemoglobin 13.6, hematocrit 41, platelets were previously 156. INR today is 1.56. D-dimer is elevated to 378. Chest x-ray 03/08/18 revealed chronic elevation of right hemidiaphragm and right basilar atelectasis. No evidence of acute finding. EKG upon presentation 03/08/18, AFib, rate 84 with known underlying left bundle - branch block. Lexiscan stress test as mentioned above. ASSESSMENT AND PLAN: 1. Complaints of shortness of breath and chest pain; this appears to be related to chronic obstructive pulmonary disease exacerbation. The patient denies manifesting symptoms of his anginal equivalent which is by report sharp, stabbing chest pain. He reports burning chest pain that improved with ingestion of tea and crackers, not related to activity. After review of prior cardiac enzymes, it appears that he has a history of troponinemia, most recently was during his prior admission in March and May. At that point in time, he was risk stratified with a Lexiscan stress test which did not reveal perfusion imaging defects. Of note, based on review of prior echocardiograms in March 2016, he had severe periprosthetic aortic stenosis, peak gradient 50 , mean gradient 21, dimensionless index of 0.24. It is possible that he could be manifesting symptomatology of not only his chronic obstructive pulmonary disease but also his severe aortic stenosis. Given poor imaging quality and most recent transthoracic echo, we will repeat echo to try to reclassify aortic stenosis. Given Pickwickian syndrome and known respiratory disease, if he were to need a transesophageal echo, this would have to be done with general anesthesia. We will follow closely. Dr. Cuadra did personally review nuclear imaging from Lexiscan stress test 03/09/18, and it is clear that he has chronic elevation of his right hemidiaphragm in addition to the gallbladder impairing imaging modality of inferior region. Left ventricular ejection fraction was preserved with normal wall motion on stress test. 2. History of coronary artery disease with known branch vessel disease involving Lcx-OM and RCA-PL based on 2010 [facility] pre AVR which was not amendable to CABG; I He denies anginal equivalent. He is on aspirin, statin, and beta blockade therapy which we have recommended continuing. Inferior region was not well visualized. Again, Dr. Cuadra reviewed the images and he has elevation of right hemidiaphragm in addition to the gallbladder impairing imaging of an inferior territory. 3. Chronic obstructive pulmonary disease exacerbation, we will defer to Dr. Gurrola. He is on ceftriaxone and methylprednisone therapy. 4. History of paroxysmal atrial fibrillation/flutter with history of cerebrovascular accident. INR today is 1.56 on Lovenox bridge. Rates are controlled on Lopressor therapy. He is not symptomatic. 5. History of chronic kidney disease. Baseline creatinine 1.2 to 1.5. Creatinine appears to be reflective of baseline. It continues to trend down. 6. Severe bioprosthetic aortic stenosis. He appears stable at this current time. We will repeat transthoracic echo to try to reevaluate gradient. He is not on any afterloading agents such as RAVEN inhibitors, ARB, or nitrates. He is on Lasix, on which he is euvolemic on exam. I will just caution volume contraction in this patient given severity of . 7. Disposition: Pending course. Dr. Jacyln Cuadra agrees with the above assessment and plan. We will repeat transthoracic echo to reevaluate aortic valve gradients. Please avoid afterload reduction agents. Continue to monitor on telemetry. We will follow. Thank you for this kind consultation. Dr. Jaclyn Cuadra agrees with the above assessment and plan. CASSANDRA QUICK NP [id number]/[facility] #: [id number] [place]
--- NOTE | 2018-03-10 15:42 | PN ---
Subjective Date of Service: 03/10/18 Interval History: HOSPITALIST PROGRESS NOTE Patient seen and examined at bedside. Care reviewed and d/w James Bearden RN. He feels a little better today. Denies chest pain, breathing is easier. There's report of weakness and falls at home. Family History: Unchanged from Admission Social History: Unchanged from Admission Past Medical History: Unchanged from Admission Objective Active Medications: Acetaminophen (Tylenol Tab*) 650 mg PO Q4H PRN PRN Reason: PAIN Albuterol (Ventolin 2.5 Mg/3 Ml Neb.Kika*) 2.5 mg INH Q4H PRN PRN Reason: SOB/WHEEZING Albuterol (Ventolin Hfa Inhaler*) 2 puff INH Q4H PRN PRN Reason: SOB/WHEEZING Aspirin (Aspirin Ec Tab*) 81 mg PO QAM [facility] Last Admin: 03/10/18 09:10 Dose: 81 mg Atorvastatin Calcium (Lipitor*) 10 mg PO DAILY [facility] Last Admin: 03/10/18 09:10 Dose: 10 mg Cholecalciferol (Vitamin D Tab*) 2,000 units PO QAM [facility] Last Admin: 03/10/18 09:10 Dose: 2,000 units Dextrose (D50w Syringe 50 Ml*) 12.5 gm IV PUSH .FOR FS < 60 - SS PRN PRN Reason: FS < 60 Enoxaparin Sodium (Lovenox(*)) 150 mg SUBCUT Q24H [facility] Last Admin: 03/09/18 20:18 Dose: 150 mg Finasteride (Proscar Tab*) 5 mg PO DAILY [facility] Last Admin: 03/10/18 09:10 Dose: 5 mg Furosemide (Lasix Tab*) 40 mg PO BID [facility] Last Admin: 03/10/18 09:10 Dose: 40 mg Guaifenesin (Robitussin*) 5 ml PO Q4H PRN PRN Reason: COUGH Last Admin: 03/09/18 20:13 Dose: 5 ml Hydroxyzine HCl (Atarax Tab*) 10 mg PO TID PRN PRN Reason: ANXIETY Ceftriaxone Sodium 1 gm/ (Sodium Chloride) 50 mls @ 200 mls/hr IVPB Q24H [facility] Last Admin: 03/09/18 23:42 Dose: 200 mls/hr Insulin Glargine (Lantus(*)) 35 units SUBCUT BID [facility] Last Admin: 03/10/18 09:11 Dose: 35 units Insulin Human Lispro (Humalog*) 0 units SUBCUT ACHS [facility]; Protocol Last Admin: 03/10/18 12:54 Dose: 6 units Methylprednisolone Sodium Succinate (Solu-Medrol 40 Mg) 40 mg IV Q12H [facility] Last Admin: 03/10/18 09:10 Dose: 40 mg Metoprolol Tartrate (Lopressor Tab*) 25 mg PO BID [facility] Mometasone Furoate (Asmanex 220 Mcg Mdi *) 2 puff INH BID [facility]; Protocol Last Admin: 03/10/18 07:43 Dose: 2 puff Mometasone Furoate/Formoterol Fumar (Dulera 200/5 Mdi*) 2 puff INH BID [facility] Last Admin: 03/10/18 07:43 Dose: 2 puff Nystatin (Nystatin Cream*) 1 applic TOPICAL TID PRN PRN Reason: RASH Senna (Senokot Tab*) 2 tab PO BID PRN PRN Reason: CONSTIPATION Sertraline HCl (Zoloft*) 100 mg PO QAM [facility] Last Admin: 03/10/18 09:10 Dose: 100 mg Tiotropium [place] (Spiriva Cap.Inh*) 1 cap INH DAILY [facility] Last Admin: 03/10/18 07:42 Dose: 1 cap Warfarin Sodium (Coumadin Tab(*)) 6 mg PO SUMOWEFR [facility]; Protocol Last Admin: 03/10/18 12:54 Dose: 6 mg Warfarin Sodium (Coumadin Tab(*)) 3 mg PO TUTHSA [facility]; Protocol Last Admin: 03/09/18 14:47 Dose: 3 mg Zolpidem Tartrate (Ambien Tab*) 5 mg PO BEDTIME PRN PRN Reason: SLEEP Vital Signs - 8 hr 03/10/18 03/10/18 03/10/18 07:43 08:00 11:45 Temperature 97.3 F Pulse Rate 49 53 Respiratory 18 18 20 Rate Blood Pressure 133/56 (mmHg) O2 Sat by Pulse 98 100 Oximetry Oxygen Devices in Use Now: Nasal Cannula - 5 liters Appearance: Morbid obese elderly gentleman sitting up in a recliner in NAD Eyes: No Scleral Icterus Ears/Nose/Mouth/Throat: Mucous Membranes Moist Respiratory: Symmetrical Chest Expansion and Respiratory Effort, - - BS+ bilaterally diminished with no added sounds Cardiovascular: RRR - Normal S1 and S2, +SM Abdominal: NL Sounds; No Tenderness; No Distention - morbid obese Neurological: Alert and Oriented x 3, NL Muscle Strength and Tone Result Diagrams: 03/09/18 06:39 03/10/18 05:42 Assess/Plan/Problems-Billing Assessment: Mr Escamilla is an 82yo M with PMH of morbid obesity with BMI 41.5, CAD s/p CABG, CVA with residual left hemiparesis, type 2 DM, Afib, HTN, COPD, tracheomalacia ( h/o tracheostomy), TAMICA, obesity hypoventilation syndrome, DVT, BPH, depression, severe , who presented to ED with c/o dyspnea and CP, found to have COPD exacerbation. - Patient Problems (1) COPD exacerbation Comment: - Suspect secondary to viral infection. - Continue steroids and bronchodilators. - No antibiotics. (2) Chest pain Comment: - Troponins at baseline around 0.05. - Chest pain is resolved. - Stress test showed small area of reversible change in the inferior wall with normal EF. - Continue medical management with Aspirin, Atorvastatin, Metoprolol. - Suspect chest pain was secondary to increased demand in the setting of dyspnea. (3) Severe aortic stenosis Comment: - Probably playing a role on his chest pain - Cardiology consult requested. (4) Afib Comment: - Rate is controlled with Metoprolol. - As per medication list, patient is on Warfarin. - Will bridge with Lovenox while INR is subtherapeutic. (5) TAMICA (obstructive sleep apnea) Comment: - Continue BiPAP. (6) UTI (urinary tract infection) Comment: - Continue Ceftriaxone and follow culture - growing Klebsiella, sensitivities pending. (7) Diabetes mellitus Comment: - Increase Lantus and continue Lispro SS. (8) DVT prophylaxis Comment: - Lovenox/Warfarin. (9) Physical deconditioning Comment: - PT evaluation - will likely need LORENZO. (10) Full code status Status and Disposition: Inpatient.
[2018-03-10] MEDS: Enoxaparin(*) 150 MG/ML 1 ML SYRINGE SUBCUT SCH (18:43)
--- NOTE | 2018-03-10 19:22 | ECHO ---
Patient: MONSTER HENDERSON [facility] Rec#: [id number] : 1935 Date: 03/10/2018 Age: 82y Height: 157 cm / 61.8 in Weight: 103 kg / 227.0 lbs Sex: M BSA: 2.01 Room#: 434 Admit Date#: 03/09/2018 Type: Inpatient Referring: Jaclyn Cuadra MD Reading: Jaclyn Cuadra MD Blast Furnace Tender: Manisha Coles RDCS CC: Jeremiah Ruano MD Transthoracic Echocardiogram Indication: Valvular disease BP: 117/57 HR: 50 Rhythm: Bradycardia Findings History: CAD, s/p CABG, DM, CVA, COPD, PAF, TAMICA. This is a LIMITED study to evaluate the aortic valve. Technical Comments: The study quality is fair. Left Ventricle: The estimated ejection fraction is 50-55%. Right Ventricle: The right ventricular global systolic function is normal. Aortic Valve: The aortic valve is trileaflet. Moderate aortic leaflet calcification is visualized. Systolic excursion of the aortic valve cusps is reduced. There is a trace of aortic regurgitation. There is severe aortic stenosis. The mean gradient of the aortic valve is 34 mmHg. The peak instantaneous gradient of the aortic valve is 65 mmHg. The aortic valve area, by peak velocities, is calculated at 0.6 cm2. The aortic valve area, by VTI's, is calculated at 0.7 cm2. Pulmonic Valve: There is a trace pulmonic regurgitation. Pericardium: There is no significant pericardial effusion. A pericardial fat pad is visualized. Aorta: There is mild dilatation of the ascending aorta. The aortic root is normal in size. Conclusions Limited study to evaluate aortic valve stenosis. There is severe aortic stenosis, visually leaflets show markedly reduced mobility. The mean gradient of the aortic valve is 34 mmHg. The aortic valve area, by peak velocities, is calculated at 0.6 cm2. The aortic valve area, by VTI's, is calculated at 0.7 cm2. DI 0.20 - 0.24 (severe range). There is a trace of aortic regurgitation. Preserved ventricular systolic function. Measurements Name Value Normal Range Aortic Annulus 1.9 cm (1.4 - 2.6) Ao root diameter (2D) 3.3 cm (2.1 - 3.5) Ascending Ao 3.6 cm (2.1 - 3.4) Name Value Normal Range AV Vmax 4 m/sec - AV VTI 108 cm - AV peak gradient 65 mmHg - AV mean gradient 34 mmHg - LVOT diameter 2 cm - LVOT Vmax 0.8 m/sec - LVOT VTI 25.5 cm - LVOT peak gradient 3 mmHg - LVOT mean gradient 1 mmHg - DOI (VTI) 0.24 ratio - MARQUEZ (continuity Vmax) 0.6 cm2 - MARQUEZ (continuity VTI) 0.7 cm2 -
[2018-03-10] MEDS ORDERED: Insulin GLARGINE(*) 1 UNITS UNIT SUBCUT SCH (21:00)
--- NOTE | 2018-03-10 21:09 | PN ---
Cardiology Progress Note Date of Service: 03/10/18 - CC: SOB See consultation note from Cassandra Bahena NP, I am unable to addend that note directly at this time. The patient's breathing has improved since admission. In addition to recommendations and studies in the Consult Note: Limited echo today confirms severe and preserved ventricular function. Nuclear study showed EF 60% and raw images show high diaphragm and significant uptake in the GB and both could lead to attenuation artifact in the inferior region. Klebsiella UTI noted incidentally. I am not recommending cardiac catheterization at this time. I do think the patient needs AVR. He would be best served by TAVR. Potential benefits could include less risk of CHF, improved renal perfusion and renal function, improved functional ability. He states he gets care via the [facility]. I recommend referral for TAVR to a center OK'd by [facility]. This is typically a process that takes some time, is done as an outpatient and entails obtaining NANDO's and CT's, we can assist if the referral center OK's.
[2018-03-10] MEDS: cefTRIAXone* 1 GM in NS 0.9% 50 ML BAG IVPB SCH (23:04)
[2018-03-11 05:45] LABS: INR 1.82 (0.77-1.02)
[2018-03-11] MEDS: Mometasone 220 MCG MDI INH SCH (07:30)
[2018-03-11] MEDS: Mometasone/Formoter 200/5 MDI INH SCH (07:30)
[2018-03-11] MEDS: Tiotropium CAP.INH* CAP.INH/18 MCG (USE ORDER SET !) INH SCH (07:30)
[2018-03-11] MEDS ORDERED: Insulin GLARGINE(*) 1 UNITS UNIT SUBCUT SCH (09:00)
--- NOTE | 2018-03-11 09:34 | PN ---
<Cassandra Quick - Last Filed: 03/11/18 09:12> Subjective Date of Service: 03/11/18 - f/u severe , CAD, elevated troponin Interval History: No events last night. Patient states breathing effort is back to baseline. Denies c/o chest pain, palpitations, sensation of heart racing, edema. Has chronic SOB but again adds it is back to baseline. Medications Active Medications: Acetaminophen (Tylenol Tab*) 650 mg PO Q4H PRN PRN Reason: PAIN Albuterol (Ventolin 2.5 Mg/3 Ml Neb.Kika*) 2.5 mg INH Q4H PRN PRN Reason: SOB/WHEEZING Albuterol (Ventolin Hfa Inhaler*) 2 puff INH Q4H PRN PRN Reason: SOB/WHEEZING Aspirin (Aspirin Ec Tab*) 81 mg PO QAM [facility] Last Admin: 03/10/18 09:10 Dose: 81 mg Atorvastatin Calcium (Lipitor*) 10 mg PO DAILY [facility] Last Admin: 03/10/18 09:10 Dose: 10 mg Cholecalciferol (Vitamin D Tab*) 2,000 units PO QAM [facility] Last Admin: 03/10/18 09:10 Dose: 2,000 units Dextrose (D50w Syringe 50 Ml*) 12.5 gm IV PUSH .FOR FS < 60 - SS PRN PRN Reason: FS < 60 Enoxaparin Sodium (Lovenox(*)) 150 mg SUBCUT Q24H [facility] Last Admin: 03/10/18 18:43 Dose: 150 mg Finasteride (Proscar Tab*) 5 mg PO DAILY [facility] Last Admin: 03/10/18 09:10 Dose: 5 mg Furosemide (Lasix Tab*) 40 mg PO BID [facility] Last Admin: 03/10/18 20:47 Dose: 40 mg Guaifenesin (Robitussin*) 5 ml PO Q4H PRN PRN Reason: COUGH Last Admin: 03/09/18 20:13 Dose: 5 ml Hydroxyzine HCl (Atarax Tab*) 10 mg PO TID PRN PRN Reason: ANXIETY Ceftriaxone Sodium 1 gm/ (Sodium Chloride) 50 mls @ 200 mls/hr IVPB Q24H [facility] Last Admin: 03/10/18 23:04 Dose: 200 mls/hr Insulin Glargine (Lantus(*)) 44 units SUBCUT BID [facility] Insulin Human Lispro (Humalog*) 0 units SUBCUT ACHS [facility]; Protocol Last Admin: 03/10/18 20:44 Dose: 12 units Methylprednisolone Sodium Succinate (Solu-Medrol 40 Mg) 40 mg IV Q12H [facility] Last Admin: 03/10/18 20:45 Dose: 40 mg Metoprolol Tartrate (Lopressor Tab*) 25 mg PO BID [facility] Last Admin: 03/10/18 20:47 Dose: 25 mg Mometasone Furoate (Asmanex 220 Mcg Mdi *) 2 puff INH BID [facility]; Protocol Last Admin: 03/11/18 07:30 Dose: 2 puff Mometasone Furoate/Formoterol Fumar (Dulera 200/5 Mdi*) 2 puff INH BID [facility] Last Admin: 03/11/18 07:30 Dose: 2 puff Nystatin (Nystatin Cream*) 1 applic TOPICAL TID PRN PRN Reason: RASH Senna (Senokot Tab*) 2 tab PO BID PRN PRN Reason: CONSTIPATION Sertraline HCl (Zoloft*) 100 mg PO QAM [facility] Last Admin: 03/10/18 09:10 Dose: 100 mg Tiotropium [place] (Spiriva Cap.Inh*) 1 cap INH DAILY [facility] Last Admin: 03/11/18 07:30 Dose: 1 cap Warfarin Sodium (Coumadin Tab(*)) 6 mg PO SUMOWEFR [facility]; Protocol Last Admin: 03/10/18 12:54 Dose: 6 mg Warfarin Sodium (Coumadin Tab(*)) 3 mg PO TuThSa@1700 [facility]; Protocol Zolpidem Tartrate (Ambien Tab*) 5 mg PO BEDTIME PRN PRN Reason: SLEEP Objective Vital Signs: Temp Pulse Resp BP Pulse Ox 96.8 F 49 18 127/53 98 03/11/18 03:28 03/11/18 07:35 03/11/18 07:35 03/11/18 03:28 03/11/18 07:35 Oxygen Devices in Use Now: Nasal Cannula Appearance: sitting in chair sleeping upon entering the room. NAD, cooperative with exam, oriented. Eyes: No Scleral Icterus Ears/Nose/Mouth/Throat: NL Teeth, Lips, Gums, Mucous Membranes Moist Neck: NL Appearance and Movements; NL JVP Respiratory: Clear to Auscultation Cardiovascular: - - Normal S1, S2, RRR. + 4/6 eary systolic aortic murmur. no rub or gallop Extremities: No Edema Skin: No Rash or Ulcers Neurological: Alert and Oriented x 3 Lines/Tubes/Other Access: Clean, Dry and Intact Peripheral IV Laboratory Results: 03/09/18 06:39 03/10/18 05:42 INR (Anticoag Therapy) 1.82 (0.77-1.02) H 03/11/18 05:20 APTT 31.9 seconds (26.0-36.3) 03/08/18 18:27 Total Bilirubin 0.70 mg/dL (0.2-1.0) 03/08/18 18:27 AST 22 U/L (13-39) 03/08/18 18:27 ALT 20 U/L (7-52) 03/08/18 18:27 Alkaline Phosphatase 105 U/L (34-104) H 03/08/18 18:27 B-Natriuretic Peptide 336 pg/mL (<=100) H 03/08/18 18:27 Total Protein 7.3 g/dL (6.4-8.9) 03/08/18 18:27 Albumin 3.8 g/dL (3.2-5.2) 03/08/18 18:27 Globulin 3.5 g/dL (2-4) 03/08/18 18:27 Albumin/Globulin Ratio 1.1 (1-3) 03/08/18 18:27 03/08/18 03/08/18 03/08/18 18:27 21:03 23:40 Troponin I 0.04 H* 0.04 H* 0.04 H* 03/09/18 06:39 Troponin I 0.05 H* Diagnostic Imaging: Echo 03/10/2018: LVEF 50-55%, severe , mean 35, peak-65, DI.20-.24 EKG Data: none to review for today Assessment/Plan #1 Severe symptomatic bioprosthetic with decompensated DHF; peak 64, meN 34 with DI.20-.24. came in due to c/o chest pain and SOB. Troponin peaked at .05 at time of presentation. Patient is agreeable to transfer for eval for LHC and ? TAVR. Currently he is compensated on exam. states breathing is back to baseline today. BP stable. #2 h/o CAD with known 60-70% Lcx-OM and 80% RCA-PL disease. In 2009 he did not undergo bypass per surgical report [facility] which I personally reviewed today. Please note this information was not available yesterday. He presented with chest pain and SOB. Troponin trended down. Lexiscan ST was suboptimal due to chronic right diaphram elevation and GB unable to r/o inferior territory ischemia. Currently chest pain free. On ASA, statin and Bblocker therapy. #3 h/o COPD; chronically wears 3 L via NC. breathing back to baseline. #4 h/o CKD baseline creat 1.2-1.5. #5 h/o PAF/Flutter; rates have been controlled. INR 1.8 ( goal 2-3) on coumadin and lovenox. 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 #7 Disposition; today be transferred to [facility] for decompensated DHF with severe periprosthetic . D/W with agrees with above mentioned plan of care. Dr. Hewitt ( Cardiology) accepted transfer at [facility] Attending: Boni Merrill <Boni Merrill - Last Filed: 03/11/18 23:47> Subjective Date of Service: 03/11/18 Objective Vital Signs: Temp Pulse Resp BP Pulse Ox 97.1 F 56 20 135/56 94 03/11/18 11:08 03/11/18 11:08 03/11/18 11:08 03/11/18 11:08 03/11/18 11:08 Laboratory Results: 03/09/18 06:39 03/10/18 05:42 INR (Anticoag Therapy) 1.82 (0.77-1.02) H 03/11/18 05:20 APTT 31.9 seconds (26.0-36.3) 03/08/18 18:27 Total Bilirubin 0.70 mg/dL (0.2-1.0) 03/08/18 18:27 AST 22 U/L (13-39) 03/08/18 18:27 ALT 20 U/L (7-52) 03/08/18 18:27 Alkaline Phosphatase 105 U/L (34-104) H 03/08/18 18:27 B-Natriuretic Peptide 336 pg/mL (<=100) H 03/08/18 18:27 Total Protein 7.3 g/dL (6.4-8.9) 03/08/18 18:27 Albumin 3.8 g/dL (3.2-5.2) 03/08/18 18:27 Globulin 3.5 g/dL (2-4) 03/08/18 18:27 Albumin/Globulin Ratio 1.1 (1-3) 03/08/18 18:27 03/08/18 03/08/18 03/08/18 18:27 21:03 23:40 Troponin I 0.04 H* 0.04 H* 0.04 H* 03/09/18 06:39 Troponin I 0.05 H* Cardiology Note Patient examined and medical condition reviewed with patient, Ynes, and Dr. Werner. See handwritten note from today. Patient has had decompensated CHF in the setting of severe prosthetic aortic stenosis and CAD. In addition, the patient has had syncope and progressive XIAO. Prognosis extremely guarded. Risk of Mortality high. Options for referral for evaluation for possible TAVR or SAVR or palliative care. Patient agrees to proceed with evalation for TAVR. additional 30+ mintues spent face to face and coordinating care.
[2018-03-11] MEDS: Metoprolol Tartrate TAB* 25 MG PO SCH (09:39)
[2018-03-11] MEDS: methylPREDNISolone SOD 40 MG* 1 ML VIAL IV SCH (09:39)
[2018-03-11] MEDS: Furosemide TAB* 40 MG PO SCH (09:39)
[2018-03-11] MEDS: Atorvastatin* 10 MG TAB PO SCH (09:39)
[2018-03-11] MEDS: Aspirin EC TAB* 81 MG TAB.EC PO SCH (09:39)
[2018-03-11] MEDS: Cholecalciferol TAB* 1000 UNITS PO SCH (09:40)
[2018-03-11] MEDS: Finasteride TAB* 5 MG PO SCH (09:40)
[2018-03-11] MEDS: Sertraline* 100 MG TAB PO SCH (09:40)
[2018-03-11] MEDS: Insulin LISPRO* 1 UNITS UNIT SUBCUT SCH ×2 (09:40→12:05)
[2018-03-11 11:17] VITALS: BP 135/56
--- NOTE | 2018-03-11 12:13 | TRS ---
CC: Dr. Merrill; Dr. Cuadra; Dr. Ruano; Dr. Donahue, [facility] * DATE OF ADMISSION: 03/09/2018. DATE OF TRANSFER: 03/11/2018. DISCHARGE/TRANSFER DIAGNOSES: 1. Shortness of breath, likely secondary to: A. Severe symptomatic bioprosthetic with decompensated diastolic heart failure. B. COPD exacerbation. 2. History of CAD, patient did NOT actually have bypass on review of notes from [facility] by Cardiology Service and likely scanned stress test was suboptimal due to chronic right diaphragm elevation and gallbladder. Unable to rule out inferior territory ischemia; may need preoperative catheterization to further assess risk prior to TAVR. 3. History of CKD. 4. History of paroxysmal atrial fibrillation/flutter. DISCHARGE/TRANSFER MEDICATIONS: 1. Tylenol 650 mg p.o. q.4 prn. 2. Albuterol HFA two puffs inhalation q.4 prn. 3. Aspirin 81 mg p.o. q.a.m. 4. Atorvastatin 10 mg p.o. daily. 5. Cholecalciferol 2,000 units p.o. q.a.m. 6. Lovenox 150 mg subcu q.24 hours. 7. Finasteride 5 mg p.o. daily. 8. Furosemide 40 mg p.o. b.i.d. 9. Guaifenesin 100 mg p.o. q.4 prn. 10. Hydroxyzine 10 mg p.o. t.i.d. prn. 11. Insulin Glargine 44 units subcu b.i.d. 12. Solu-Medrol 40 mg IV q.12. 13. Metoprolol Tartrate 25 mg p.o. b.i.d. 14. Mometasone/Formoterol 200/5 MDI two puffs inhalation b.i.d. 15. Nystatin one application topically t.i.d. 16. Sennosides two tabs p.o. b.i.d. 17. Sertraline 100 mg p.o. q.a.m. 18. Spiriva one cap inhalation daily. 19. Warfarin 3 mg p.o. q.Thursday, , and Thursday; 6 mg of Warfarin p.o. q.Thursday, Thursday, Thursday, and Thursday. 20. Zolpidem 5 mg p.o. at bedtime. HISTORY OF PRESENT ILLNESS/HOSPITAL COURSE: The patient is an 82-year-old gentleman with a history of CAD, thought to have had CABG, but on review of documentation per Cardiology Service, he actually did not have CABG in the past. During his stay in our facility, he had a stress test done which is suboptimal due to chronic right diaphragm elevation and therefore unable to rule out inferior territory ischemia and given this, the patient might need a preoperative catheterization to further stratify risks prior to planned TAVR evaluation and [facility] and will defer with [facility] team on the matter. He was also thought to have COPD exacerbation and CHF exacerbation on admission leading to his shortness of breath. He did mention that he has had previous syncope in the past and that he has had frequent admissions due to CHF exacerbation. It was thought by Dr. Merrill and Cardiology team that the patient will do better for an expedited review and evaluation for TAVR and hence , patient will be transferred to [facility]. The patient had been advised to follow-up and recall his PCP within three days post DC from [facility]. He was advised to follow-up with his physician/ service trainer recommendation after discharge from [facility]. If his symptoms resume or he develops new ones or feels unwell for any reason, he was advised to call his PCP first and if his PCP cannot entertain him due to scheduling issues alone, to call [facility] if the issue is considered nonemergent. He was advised to call my office regarding any questions, concerns, or further clarifications regarding his discharge plans and /or prescriptions and to take his medications as prescribed. On review of systems, the patient currently denies any headaches, dizziness, fevers, chills, nausea, vomiting, chest pain, shortness of breath, increased cough or sputum production, abdominal pain, diarrhea, constipation, pain and/or increased frequency on urination, myalgias, arthralgias, throat pain or new skin lesions. The rest of the 14 point review of systems are otherwise unremarkable. PHYSICAL EXAMINATION: General appearance: The patient is awake, alert, and oriented times three, not in acute distress, patient is obese. Most recent vital signs of record: Temperature 97.1 degrees Fahrenheit, 54 beats per minute heart rate from 49 and 49 respectively, 20 per minute respiratory rate, saturating at 99 percent with 4 liters nasal cannula, blood pressure 123/62. HEENT: Normocephalic, atraumatic. PERRLA. Extraocular muscles intact. Negative for icterus. Moist oral mucosal. Negative throat erythema. Neck: Soft, supple with no cervical lymphadenopathy. Difficult to assess JVD given the patient's body habitus. Heart: S1, S2, irregularly irregular. No murmurs, rubs or gallops. Chest: Clear to auscultation bilaterally. Good air entry. No wheezes, rales, or rhonchi. Abdomen: Soft, nondistended, nontender. Normoactive bowel sounds times four. Extremities: No cyanosis, clubbing, or edema. Psychiatric: No active psychosis, depression, suicidal or homicidal ideation. Skin: Warm to touch. [id number]/[facility] #: [id number] MTDGeorgina
[2018-03-11] MEDS ORDERED: Warfarin TAB(*) 3 MG PO SCH (17:00)
== END 2018-03-11 12:10 | disposition short-term general hospital (02) | DRG 314 ==
LOC: ED 17:55 → MEDTELE 03-09 00:18
PROVIDERS: ADMIT Internal Medicine; ATTEND Student in an Organized Health Care Education/Training Program
DX: T82.857A Stenosis of other cardiac prosthetic devices, implants and grafts, initial encounter (principal); I50.33 Acute on chronic diastolic (congestive) heart failure; Q79.1 Other congenital malformations of diaphragm; J44.1 Chronic obstructive pulmonary disease with (acute) exacerbation; E66.2 Morbid (severe) obesity with alveolar hypoventilation; Z68.41 Body mass index [BMI] 40.0-44.9, adult; I13.0 Hypertensive heart and chronic kidney disease with heart failure and stage 1 through stage 4 chronic kidney disease, or unspecified chronic kidney disease; I69.354 Hemiplegia and hemiparesis following cerebral infarction affecting left non-dominant side; N39.0 Urinary tract infection, site not specified; I25.10 Atherosclerotic heart disease of native coronary artery without angina pectoris; I48.91 Unspecified atrial fibrillation; G47.33 Obstructive sleep apnea (adult) (pediatric); F32.9 Major depressive disorder, single episode, unspecified; N40.0 Benign prostatic hyperplasia without lower urinary tract symptoms; I44.7 Left bundle-branch block, unspecified; E78.00 Pure hypercholesterolemia, unspecified; K21.9 Gastro-esophageal reflux disease without esophagitis; K44.9 Diaphragmatic hernia without obstruction or gangrene; M19.90 Unspecified osteoarthritis, unspecified site; E11.36 Type 2 diabetes mellitus with diabetic cataract; F41.9 Anxiety disorder, unspecified; F43.10 Post-traumatic stress disorder, unspecified; G40.909 Epilepsy, unspecified, not intractable, without status epilepticus; N18.9 Chronic kidney disease, unspecified; E11.22 Type 2 diabetes mellitus with diabetic chronic kidney disease; B96.1 Klebsiella pneumoniae [K. pneumoniae] as the cause of diseases classified elsewhere; Z95.2 Presence of prosthetic heart valve; Z95.5 Presence of coronary angioplasty implant and graft; Z99.81 Dependence on supplemental oxygen; Z88.8 Allergy status to other drugs, medicaments and biological substances; Z88.1 Allergy status to other antibiotic agents; Z91.041 Radiographic dye allergy status; Z86.718 Personal history of other venous thrombosis and embolism; I25.2 Old myocardial infarction; Z87.01 Personal history of pneumonia (recurrent); Z85.828 Personal history of other malignant neoplasm of skin; Z86.14 Personal history of Methicillin resistant Staphylococcus aureus infection; Z82.49 Family history of ischemic heart disease and other diseases of the circulatory system; Z80.0 Family history of malignant neoplasm of digestive organs; Z80.49 Family history of malignant neoplasm of other genital organs; Z79.01 Long term (current) use of anticoagulants; Z79.82 Long term (current) use of aspirin; Z79.4 Long term (current) use of insulin
CPT/HCPCS: 36415; 71045; 78452; 80048; 80053; 81003; 81015; 82803; 82947; 83605; 83735; 83880; 84484; 85025; 85379; 85610; 85730; 87077; 87086; 87186; 87641; 93005; 93017; 93308; 94640; 94660; 99284; A9270-GY; A9502; G8978-GP-CK; G8979-GP-CI; J0280; J0696; J1650; J2785; J2920; J2930

== ENCOUNTER 2018-05-14 13:02 | Emergency (ER) | payer OTHER ==
--- NOTE | 2018-05-14 16:39 | ED ---
Lower Extremity - HPI Summary HPI Summary: Pt is 82 y/o M who presents to ED c/o left ankle infection for approximately 2.5 weeks. He rates his left foot pain as 7/10 at triage. Denies any other new onset symptoms. - History of Current Complaint Chief Complaint: EDExtremityLower Stated Complaint: LEG INJURY Time Seen by Provider: 05/14/18 16:22 Hx Obtained From: Patient Mechanism Of Injury: Unknown Onset of Pain: Days Onset/Duration: Still Present Severity Currently: Moderate Pain Intensity: 7 Pain Scale Used: 0-10 Numeric Timing: Lasting Weeks Location: Is Discrete @ - left foot Associated Signs And Symptoms: Positive: Negative Aggravating Factor(s): Nothing Alleviating Factor(s): Nothing - Allergies/Home Medications Allergies/Adverse Reactions: Allergies Allergy/AdvReac Type Severity Reaction Status Date / Time nitroglycerin Allergy Severe Anaphylatic Verified 05/14/18 13:20 Shock levofloxacin Allergy Intermediate Itching Verified 05/14/18 13:20 Iodinated Contrast- Oral and AdvReac Severe Altered Verified 05/14/18 13:20 IV Dye Mental Status PMH/Surg Hx/FS Hx/Imm Hx Endocrine/Hematology History: Reports: Hx Anticoagulant Therapy, Hx Blood Transfusions, Hx Diabetes, Hx Anemia Denies: Hx Blood Disorders, Hx Bone Marrow Disease, Hx Systemic Lupus Erythematosus, Hx Sickle Cell Disease, Hx Thyroid Disease, Hx Unexplained Bleeding Cardiovascular History: Reports: Hx Angina, Hx Angioplasty, Hx Cardiac Arrest - 03/05/14, Hx Congestive Heart Failure, Hx Coronary Artery Disease, Hx Deep Vein Thrombosis, Hx Hypercholesterolemia, Hx Hypertension, Hx Myocardial Infarction, Hx Syncope, Hx Valvular Heart Disease Denies: Hx Aneurysm, Hx Auto Implanted Cardiovert Defib, Hx Cardiomegaly, Hx Congenital Heart Disease, Hx Hypotension, Hx Pacemaker/ICD, Hx Peripheral Vascular Disease, Hx Rheumatic Fever, Other Cardiovascular Problems/Disorders Respiratory History: Reports: Hx Chronic Bronchitis, Hx Chronic Obstructive Pulmonary Disease (COPD), Hx Pleural Effusion, Hx Pneumonia, Hx Pulmonary Edema , Hx Sleep Apnea - CPAP, Other Respiratory Problems/Disorders - Bronchitis Denies: Hx Asthma, Hx Cystic Fibrosis, Hx Lung Cancer, Hx Pulmonary Embolism , Hx Seasonal Allergies GI History: Reports: Hx Gastroesophageal Reflux Disease, Hx Hiatal Hernia, Hx Obstructive Bowel Denies: Hx Cirrhosis, Hx Crohn's Disease, Hx Diverticulosis, Hx Gall Bladder Disease, Hx Gastrointestinal Bleed, Hx Irritable Bowel, Hx Jaundice, Hx Ileostomy, Hx Pyloric Stenosis, Hx Ulcer, Other GI Disorders History: Reports: Hx Benign Prostatic Hyperplasia, Hx Kidney Infection Denies: Hx Acute Renal Failure, Hx Chronic Renal Failure, Hx Dialysis, Hx Kidney Stones, Other Problems/Disorders Musculoskeletal History: Reports: Hx Arthritis, Hx Back Problems, Other Musculoskeletal History - BLE weakness hx CVA, uses scooter at home Denies: Hx Bursitis, Hx Congenital Bone Abnormalities, Hx Fibromyalgia, Hx Gout, Hx Orthopedic Injury, Hx Osteoporosis, Hx Scoliosis, Hx Tendonitis Sensory History: Reports: Hx Cataracts - due for sx, Hx Contacts or Glasses, Hx Vision Problem, Hx Hearing Aid - at home, Hx Hearing Problem Denies: Hx Eye Injury, Hx Eye Prosthesis, Hx Glaucoma, Hx Legally Blind, Hx Macular Degeneration, Hx Deafness, Other Sensory Impairments Opthamlomology History: Reports: Hx Cataracts - due for sx, Hx Contacts or Glasses, Hx Vision Problem Denies: Hx Eye Injury, Hx Eye Prosthesis, Hx Glaucoma, Hx Legally Blind, Hx Macular Degeneration, Other Sensory Impairments Neurological History: Reports: Hx Seizures, Hx Transient Ischemic Attacks (TIA) Denies: Hx Dementia, Hx Developmental Delay, Hx Headaches, Hx Migraine, Hx Nerve Disease, Hx Spinal Cord Injury, Other Neuro Impairments/Disorders Psychiatric History: Reports: Hx Anxiety, Hx Depression - He thinks about the of his and son often., Hx Post Traumatic Stress Disorder, Other Psychiatric Issues/Disorders - Had one episode of emotional shock, but no depression etc since. Denies: Hx Attention Deficit Hyperactivity Disorder, Hx Eating Disorder, Hx Panic Disorder, Hx Inpatient Treatment, Hx Community Mental Health Tx, Hx Schizophrenia, Hx Bipolar Disorder, Hx Suicide Attempt, Hx of Violent Episodes Against Others, Hx Substance Abuse - Cancer History Cancer Type, Location and Year: Skin cancer on scalp - Surgical History Surgery Procedure, Year, and Place: Bypass 2008. hernia 8. left shoulder sx in [place] in 1965. CABG. 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 Denies: Hx Clostridium Difficile, Hx Hepatitis, Hx Human Immunodeficiency Virus (HIV), Hx Shingles, Hx Tuberculosis, Hx Known/Suspected VRE, History Other Infectious Disease, Traveled Outside the [place] in Last 30 Days - Family History Known Family History: Positive: Cardiac Disease, Diabetes, Other - uterine CA, colon CA - Social History Alcohol Use: None Hx Substance Use: No Substance Use Type: Reports: None Hx Tobacco Use: No Smoking Status (MU): Never Smoked Tobacco Have You Smoked in the Last Year: No Review of Systems Negative: Fever Positive: Other - left foot pain All Other Systems Reviewed And Are Negative: Yes Physical Exam - Summary Physical Exam Summary: Appearance: The patient is well-nourished in no acute distress and in no acute pain. Skin: Open wound on left low leg surrounded by erythema. The skin is warm and dry and skin color reflects adequate perfusion. HEENT: The head is normocephalic and atraumatic. The pupils are equal and reactive. The conjunctivae are clear and without drainage. Nares are patent and without drainage. Mouth reveals moist mucous membranes and the throat is without erythema and exudate. The external ears are intact. The ear canals are patent and without drainage. The tympanic membranes are intact. Neck: The neck is supple with full range of motion and non-tender. There are no carotid bruits. There is no neck vein distension. Respiratory: Chest is non-tender. Lungs are clear to auscultation and breath sounds are symmetrical and equal. Cardiovascular: Heart is regular rate and rhythm. There is no murmur or rub auscultated. There is no peripheral edema and pulses are symmetrical and equal. Abdomen: The abdomen is soft and non-tender. There are normal bowel sounds heard in all four quadrants and there is no organomegaly palpated. Musculoskeletal: Left leg is diffusely mildly swollen, not tender. There is no back tenderness noted. Extremities are non-tender with full range of motion. There is good capillary refill. There is no peripheral edema or calf tenderness elicited. Neurological: Patient is alert and oriented to person, place and time. The patient has symmetrical motor strength in all four extremities. Cranial nerves are grossly intact. Deep tendon reflexes are symmetrical and equal in all four extremities. Psychiatric: The patient has an appropriate affect and does not exhibit any anxiety or depression. Triage Information Reviewed: Yes Vital Signs On Initial Exam: Initial Vitals Temp Pulse Resp BP Pulse Ox 96.9 F 56 20 103/89 96 05/14/18 13:13 05/14/18 13:13 05/14/18 13:13 05/14/18 13:13 05/14/18 13:13 Vital Signs Reviewed: Yes Diagnostics - Vital Signs Vital Signs Temp Pulse Resp BP Pulse Ox 05/14/18 14:54 97.6 F 86 20 0/0 97 05/14/18 13:13 96.9 F 56 20 103/89 96 - Laboratory Result Diagrams: 05/14/18 17:02 05/14/18 16:59 Lab Statement: Any lab studies that have been ordered have been reviewed, and results considered in the medical decision making process. Lower Extremity Course/Dx - Course Course Of Treatment: Mr. Escamilla fell a couple of weeks ago and injured his left lower leg. He was seen for knee pain in the emergency department with with negative x-rays. Since that time he is developed a sore on the left lower leg which is getting more painful and erythematous. On exam he had a cellulitic an open area on his left lateral lower leg and his foot was mildly swollen but not erythematous or tender. Neurovascular and motor were intact. He was nontoxic in appearance with stable vitals. Labs were obtained and were unremarkable. He was given IV cephalexin here in the emergency department and discharged with by mouth Keflex for cellulitis. - Diagnoses Provider Diagnoses: Cellulitis Discharge - Sign-Out/Discharge Documenting (check all that apply): Patient Departure - Discharge Patient Received Moderate/Deep Sedation with Procedure: No - Discharge Plan Condition: Fair Disposition: HOME Prescriptions: Cephalexin CAP* [Keflex CAP*] 500 mg PO QID #40 cap Patient Education Materials: Cellulitis (ED) Referrals: Jeremiah Ruano MD [Primary Care Provider] - 2 Days Additional Instructions: Follow up with PCP. Return to ED for any new or worsening symptoms. - Billing Disposition and Condition Condition: FAIR Disposition: Home - Attestation Statements Document Initiated by Scribe: Yes Documenting Scribe: Lindsay Covarrubias Provider For Whom Scribe is Documenting (Include Credential): Dr. Foster Chavez MD Scribe Attestation: Lindsay Mack scribed for Dr. Foster Chavez MD on 05/14/18 at 2123. Scribe Documentation Reviewed: Yes Provider Attestation: The documentation as recorded by the scribe, Lindsay Covarrubias accurately reflects the service I personally performed and the decisions made by me, Dr. Foster Chavez MD Status of Mauricio Document: Viewed
[2018-05-14 17:10] LABS: ABS Basophils 0.1 10^3/ul (0-0.2); ABS Eosinophils 0.3 10^3/ul (0-0.6); ABS Lymphocytes 1.4 10^3/ul (1.0-4.8); ABS Monocytes 0.9 10^3/ul (0-0.8); ABS Neutrophils 6.5 10^3/ul (1.5-7.7); ABS Nucleated RBC 0 10^3/ul; Eosinophil % 3.2 %; Hematocrit 39 % (42-52); Hemoglobin 12.9 g/dl (14.0-18.0); Lymphocyte % 14.8 %; Mean Corpuscular HGB Conc 33 g/dl (31-36); Mean Corpuscular Hemoglobin 28 pg (27-31); Mean Corpuscular Volume 83 fL (80-94); Mean Platelet Volume 7.9 fL (7.4-10.4); Nucleated Red Blood Cells % 0; Platelet Count 155 10^3/ul (150-450); Red Blood Count 4.66 10^6/ul (4.00-5.40); Red Cell Distribution Width 15 % (10.5-15); White Blood Count 9.1 10^3/ul (3.5-10.8)
[2018-05-14 17:27] LABS: Albumin 3.7 g/dL (3.2-5.2); Albumin/Globulin Ratio 1.1 (1-3); BUN/Creatinine Ratio 30.7 (8-20); C Reactive Protein 44.53 mg/L (<8.01); Calcium 9.3 mg/dL (8.6-10.3); EGFR African American 53.3 (>60); Globulin 3.3 g/dL (2-4); Potassium 4.8 mmol/L (3.5-5.0); Total Bilirubin 0.8 mg/dL (0.2-1.0)
[2018-05-14] MEDS ORDERED: ceFAZolin 1 GM ADVAN(*) 1 GM in NS 0.9% 50 ML* 50 ML IVPB ONE (18:09)
[2018-05-14 19:32] VITALS: BP 143/74
== END 2018-05-14 19:31 | disposition home or self-care (01) ==
LOC: ED 13:02
DX: L03.90 Cellulitis, unspecified (principal); Z86.14 Personal history of Methicillin resistant Staphylococcus aureus infection; Z85.828 Personal history of other malignant neoplasm of skin; Z79.01 Long term (current) use of anticoagulants; I25.10 Atherosclerotic heart disease of native coronary artery without angina pectoris; I25.2 Old myocardial infarction; Z95.5 Presence of coronary angioplasty implant and graft
CPT/HCPCS: 36415; 80053; 83605; 85025; 86140; 87040; 87205; 96365; 99283; J0690

== ENCOUNTER 2018-05-15 20:35 | Emergency (ER) | payer OTHER ==
[2018-05-15] MEDS ORDERED: NS 0.9% 1000 ML** 1,000 ML IV ONE (21:09)
[2018-05-15] MEDS ORDERED: Levofloxacin 750 MG IVPREMIX(* 750 MG/150 ML BAG IVPB ONE (21:10)
--- NOTE | 2018-05-15 21:36 | ED ---
Complex/Multi-Sys Presentation - HPI Summary HPI Summary: Patient complains of wound to left lateral ankle 3 weeks and pain in last 2 toes of left foot. Patient was seen here last night for same and was started on antibiotics. Blood cultures came back today positive for pseudomonas, patient was called and told to return to the ED. Patient also states he has felt some chest pressure and some mild SOB since receiving phone call about his blood infection. States history of getting chest pressure and mild shortness of breath with anxiety or when he is upset. Patient states chest pressure and shortness of breath symptoms have resolved for the most part and are currently very minimal. Patient denies any other symptoms, injury or pain, fever, cough, sore throat, N/V/D, abdominal pain, change in urine, change in BM. Medical history COPD, TIA, CAD, NSTEMI, DM, anemia, HDL, BPH, anxiety, PTSD. Patient on O2 at 6 L baseline. Patient also states currently taking antibiotic for kidney infection. Started antibiotics last Thursday. - History Of Current Complaint Chief Complaint: EDChestPainROMI Time Seen by Provider: 05/15/18 21:07 Hx Obtained From: Patient Onset/Duration: Gradual Onset Severity Currently: Mild Severity Initially: Mild Associated Signs And Symptoms: Positive: SOB, Chest Pain - Allergies/Home Medications Allergies/Adverse Reactions: Allergies Allergy/AdvReac Type Severity Reaction Status Date / Time nitroglycerin Allergy Severe Anaphylatic Verified 05/14/18 13:20 Shock levofloxacin Allergy Intermediate Itching Verified 05/14/18 13:20 Iodinated Contrast- Oral and AdvReac Severe Altered Verified 05/14/18 13:20 IV Dye Mental Status PMH/Surg Hx/FS Hx/Imm Hx Endocrine/Hematology History: Reports: Hx Anticoagulant Therapy, Hx Blood Transfusions, Hx Diabetes, Hx Anemia Denies: Hx Blood Disorders, Hx Bone Marrow Disease, Hx Systemic Lupus Erythematosus, Hx Sickle Cell Disease, Hx Thyroid Disease, Hx Unexplained Bleeding Cardiovascular History: Reports: Hx Angina, Hx Angioplasty, Hx Cardiac Arrest - 03/05/14, Hx Congestive Heart Failure, Hx Coronary Artery Disease, Hx Deep Vein Thrombosis, Hx Hypercholesterolemia, Hx Hypertension, Hx Myocardial Infarction, Hx Syncope, Hx Valvular Heart Disease Denies: Hx Aneurysm, Hx Auto Implanted Cardiovert Defib, Hx Cardiomegaly, Hx Congenital Heart Disease, Hx Hypotension, Hx Pacemaker/ICD, Hx Peripheral Vascular Disease, Hx Rheumatic Fever, Other Cardiovascular Problems/Disorders Respiratory History: Reports: Hx Chronic Bronchitis, Hx Chronic Obstructive Pulmonary Disease (COPD), Hx Pleural Effusion, Hx Pneumonia, Hx Pulmonary Edema , Hx Sleep Apnea - CPAP, Other Respiratory Problems/Disorders - Bronchitis Denies: Hx Asthma, Hx Cystic Fibrosis, Hx Lung Cancer, Hx Pulmonary Embolism , Hx Seasonal Allergies GI History: Reports: Hx Gastroesophageal Reflux Disease, Hx Hiatal Hernia, Hx Obstructive Bowel Denies: Hx Cirrhosis, Hx Crohn's Disease, Hx Diverticulosis, Hx Gall Bladder Disease, Hx Gastrointestinal Bleed, Hx Irritable Bowel, Hx Jaundice, Hx Ileostomy, Hx Pyloric Stenosis, Hx Ulcer, Other GI Disorders History: Reports: Hx Benign Prostatic Hyperplasia, Hx Kidney Infection Denies: Hx Acute Renal Failure, Hx Chronic Renal Failure, Hx Dialysis, Hx Kidney Stones, Other Problems/Disorders Musculoskeletal History: Reports: Hx Arthritis, Hx Back Problems, Other Musculoskeletal History - BLE weakness hx CVA, uses scooter at home Denies: Hx Bursitis, Hx Congenital Bone Abnormalities, Hx Fibromyalgia, Hx Gout, Hx Orthopedic Injury, Hx Osteoporosis, Hx Scoliosis, Hx Tendonitis Sensory History: Reports: Hx Cataracts - due for sx, Hx Contacts or Glasses, Hx Vision Problem, Hx Hearing Aid - at home, Hx Hearing Problem Denies: Hx Eye Injury, Hx Eye Prosthesis, Hx Glaucoma, Hx Legally Blind, Hx Macular Degeneration, Hx Deafness, Other Sensory Impairments Opthamlomology History: Reports: Hx Cataracts - due for sx, Hx Contacts or Glasses, Hx Vision Problem Denies: Hx Eye Injury, Hx Eye Prosthesis, Hx Glaucoma, Hx Legally Blind, Hx Macular Degeneration, Other Sensory Impairments Neurological History: Reports: Hx Seizures, Hx Transient Ischemic Attacks (TIA) Denies: Hx Dementia, Hx Developmental Delay, Hx Headaches, Hx Migraine, Hx Nerve Disease, Hx Spinal Cord Injury, Other Neuro Impairments/Disorders Psychiatric History: Reports: Hx Anxiety, Hx Depression - He thinks about the of his and son often., Hx Post Traumatic Stress Disorder, Other Psychiatric Issues/Disorders - Had one episode of emotional shock, but no depression etc since. Denies: Hx Attention Deficit Hyperactivity Disorder, Hx Eating Disorder, Hx Panic Disorder, Hx Inpatient Treatment, Hx Community Mental Health Tx, Hx Schizophrenia, Hx Bipolar Disorder, Hx Suicide Attempt, Hx of Violent Episodes Against Others, Hx Substance Abuse - Cancer History Cancer Type, Location and Year: Skin cancer on scalp - Surgical History Surgery Procedure, Year, and Place: Bypass 2008. hernia 1957. left shoulder sx in [place] in [place]. CABG. 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 Denies: Hx Clostridium Difficile, Hx Hepatitis, Hx Human Immunodeficiency Virus (HIV), Hx Shingles, Hx Tuberculosis, Hx Known/Suspected VRE, History Other Infectious Disease, Traveled Outside the [place] in Last 30 Days - Family History Known Family History: Positive: Cardiac Disease, Diabetes, Other - uterine CA, colon CA - Social History Alcohol Use: None Hx Substance Use: No Substance Use Type: Reports: None Hx Tobacco Use: No Smoking Status (MU): Never Smoked Tobacco Have You Smoked in the Last Year: No Review of Systems Constitutional: Negative Eyes: Negative ENT: Negative Positive: Chest Pain Positive: Shortness Of Breath Gastrointestinal: Negative Genitourinary: Negative Musculoskeletal: Negative Skin: Other Neurological: Negative Psychological: Normal All Other Systems Reviewed And Are Negative: Yes Physical Exam - Summary Physical Exam Summary: Patient alert and oriented, no obvious distress. Wound to the lateral left ankle, 10 cm x 10 cm. Erythematous, dry and clean. No extra warmth, purulent discharge. No obvious deformity, ecchymosis, swelling to the fourth and fifth digit of left foot. No pain with palpation. PMS intact left lower extremity. Physical exam otherwise unremarkable. Triage Information Reviewed: Yes Vital Signs On Initial Exam: Initial Vitals Temp Pulse Resp BP Pulse Ox 98.0 F 54 18 107/62 97 05/15/18 20:58 05/15/18 20:58 05/15/18 20:58 05/15/18 20:58 05/15/18 20:58 Vital Signs Reviewed: Yes Appearance: Positive: Well-Appearing Skin: Positive: Warm Head/Face: Positive: Normal Head/Face Inspection Eyes: Positive: Normal Neck: Positive: Supple Respiratory/Lung Sounds: Positive: Clear to Auscultation Cardiovascular: Positive: Normal Abdomen Description: Positive: Nontender Musculoskeletal: Positive: Normal Neurological: Positive: Normal Psychiatric: Positive: Normal AVPU Assessment: Alert - [place] Coma Scale Best Eye Response: 4 - Spontaneous Best Motor Response: 6 - Obeys Commands Best Verbal Response: 5 - Oriented Coma Scale Total: 15 Diagnostics - Vital Signs Vital Signs Temp Pulse Resp BP Pulse Ox 05/15/18 21:06 53 18 107/62 100 05/15/18 21:02 20 05/15/18 20:58 98.0 F 54 18 107/62 97 - Laboratory Result Diagrams: 05/15/18 21:35 05/15/18 21:35 Lab Statement: Any lab studies that have been ordered have been reviewed, and results considered in the medical decision making process. Complex Multi-Symp Course/Dx Course Of Treatment: Patient complains of wound to left lateral ankle 3 weeks and pain in last 2 toes of left foot. Patient was seen here last night for same and was started on antibiotics. Blood cultures came back today positive for pseudomonas, patient was called and told to return to the ED. Patient also states he has felt some chest pressure and some mild SOB since receiving phone call about his blood infection. States history of getting chest pressure and mild shortness of breath with anxiety or when he is upset. Patient states chest pressure and shortness of breath symptoms have resolved for the most part and are currently very minimal. Patient denies any other symptoms, injury or pain, fever, cough, sore throat, N/V/D, abdominal pain, change in urine, change in BM. Medical history COPD, TIA, CAD, NSTEMI, DM, anemia, HDL, BPH, anxiety, PTSD. Patient on O2 at 6 L baseline. Patient also states currently taking antibiotic for kidney infection. Started antibiotics last Thursday. Physical exam:Patient alert and oriented, no obvious distress. Wound to the lateral left ankle, 10 cm x 10 cm. Erythematous, dry and clean. No extra warmth, purulent discharge. No obvious deformity, ecchymosis, swelling to the fourth and fifth digit of left foot. No pain with palpation. PMS intact left lower extremity. Physical exam otherwise unremarkable. Patient bradycardic which seems to be patient baseline per her prior charts.. 97% O2 on 6 L baseline. Vital signs otherwise unremarkable. Labs at patient baseline. Blood cultures reviewed and in preliminary report positive gram positive bacilli, likely skin contaminants in one out of 4 bottles. Final report pending. Initial report was that patient was positive for pseudomonas which does not appear to be the case at this time. Patient already on Keflex. Hospitalist has been consulted. Patient has been discussed with Dr. Lin attending. We feel patient may be discharged home as patient has home health nurse. Final culture results as well as new blood cultures drawn today will be reviewed and patient will be recalled if necessary. Patient states antibiotics were prescribed for him last night and I have been delivered to his house. Patient will be sent home with 2 day supply of Keflex 500 mg 3 times a day by mouth to get him through the weekend if necessary. - Diagnoses Provider Diagnoses: Cellulitis Discharge - Sign-Out/Discharge Documenting (check all that apply): Patient Departure Patient Received Moderate/Deep Sedation with Procedure: No - Discharge Plan Condition: Stable Disposition: HOME Patient Education Materials: Cellulitis (ED) Referrals: Jeremiah Ruano MD [Primary Care Provider] - Additional Instructions: Follow-up with primary care. Continue to take antibiotics as directed. Return to the ED for any new or worsening symptoms. - Billing Disposition and Condition Condition: STABLE Disposition: Home
[2018-05-15 21:44] LABS: ABS Basophils 0.1 10^3/ul (0-0.2); ABS Eosinophils 0.4 10^3/ul (0-0.6); ABS Monocytes 0.6 10^3/ul (0-0.8); ABS Neutrophils 4.7 10^3/ul (1.5-7.7); ABS Nucleated RBC 0 10^3/ul; Eosinophil % 5.3 %; Hematocrit 36 % (42-52); Hemoglobin 12.1 g/dl (14.0-18.0); Lymphocyte % 14.9 %; Mean Corpuscular HGB Conc 33 g/dl (31-36); Mean Corpuscular Hemoglobin 28 pg (27-31); Mean Corpuscular Volume 83 fL (80-94); Mean Platelet Volume 7.7 fL (7.4-10.4); Nucleated Red Blood Cells % 0.1; Platelet Count 141 10^3/ul (150-450); Red Cell Distribution Width 15 % (10.5-15); White Blood Count 6.7 10^3/ul (3.5-10.8)
[2018-05-15 22:01] LABS: Albumin 3.6 g/dL (3.2-5.2); Albumin/Globulin Ratio 1.2 (1-3); BUN/Creatinine Ratio 28.4 (8-20); C Reactive Protein 35.05 mg/L (<8.01); EGFR African American 49.9 (>60); EGFR Non-African American 41.2 (>60); Globulin 3.1 g/dL (2-4); INR 1.56 (0.77-1.02); Magnesium 1.9 mg/dL (1.9-2.7); Potassium 4.5 mmol/L (3.5-5.0); Total Bilirubin 0.5 mg/dL (0.2-1.0); Total Protein 6.7 g/dL (6.4-8.9)
[2018-05-15 22:07] LABS: Urine Appearance Cloudy; Urine Bacteria Absent (Absent); Urine Bilirubin Negative (Negative); Urine Blood 1+ (Negative); Urine Color Yellow; Urine Glucose 1+(50 mg/dL) (Negative); Urine Ketones Negative (Negative); Urine Nitrite Negative (Negative); Urine Protein Negative (Negative); Urine Red Blood Cell 2+(6-10/hpf) (Absent); Urine Specific Gravity 1.013 (1.010-1.030); Urine Squamous Epithelial Cell Present (Absent); Urine Urobilinogen Negative (Negative); Urine White Blood Cell 3+(>20/hpf) (Absent)
[2018-05-15 22:30] LABS: Troponin I 0.03 ng/mL (<0.04)
[2018-05-15 22:36] LABS: TSH (Thyroid Stimulating Horm) 3.41 mcIU/mL (0.34-5.60)
--- NOTE | 2018-05-15 23:41 | CONSULT ---
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 ER Course: In the ER, VSS, pt appears at baseline. Labs stable and unchanged from prior, I reviewed micro which appears to have 1/4 Blood Cx + Gram Positive Bacilli most concerning for a contaminant. I called to the lab and spoke with micro myself who confirmed 1/4 with gram + NOT gram -. Initially medicine was consulted for concern for gram neg bacteremia though looking at current data I can not see that this is the case, 1/4 gram + is much less concerning and I offer to watch culture data over the next few days to ensure this does not develop into a true bacteremia. He did get one dose of Levoquin. I spoke with his aide Dominic who is clear with the plan, he has VNA coming on Thursday Objective His PE is notable for murmur at baseline and mild scant crackles in bases, facial droop, he has a 6cm L Leg wound that is not warm, purulent or with any edema or signs of cellulitis, it is not TTP. Micro: Gram POSITIVE in one bottle-Confirmed with lab on phone A/P Overall 82 yo M with PMH as above initially brought ot ED for concern for bactermia though it appears he is gram + 1/4 bottles much less concerning for a true bactermia and more c/w contamninant #Blood Cx: I am on for the next 4 nights and will monitor culture data, including those drawn tonight -He has appropriate FU for his wound care and I have ensure this with his aide He is safe to d/c from a medicine standpoint and has no clear signs of active infection Review of Systems - Measurements Intake and Output: Intake and Output Last 24 Hours 05/13/18 05/14/18 05/15/18 05/16/18 06:59 06:59 06:59 06:59 Weight 222 lb Objective Vital Signs - 8 hr 05/15/18 05/15/18 05/15/18 20:58 21:02 21:06 Temperature 98.0 F Pulse Rate 54 53 Respiratory 18 20 18 Rate Blood Pressure 107/62 107/62 (mmHg) O2 Sat by Pulse 97 100 Oximetry 05/15/18 21:32 Temperature Pulse Rate 53 Respiratory 21 Rate Blood Pressure 130/66 (mmHg) O2 Sat by Pulse 100 Oximetry Result Diagrams: 05/15/18 21:35 05/15/18 21:35 Assessment/Plan - Billing See above
[2018-05-16 00:33] VITALS: BP 120/52
== END 2018-05-16 00:05 | disposition home or self-care (01) ==
LOC: ED 20:35
DX: L03.90 Cellulitis, unspecified (principal); R06.02 Shortness of breath; R07.9 Chest pain, unspecified; Z79.01 Long term (current) use of anticoagulants; K21.9 Gastro-esophageal reflux disease without esophagitis; N40.0 Benign prostatic hyperplasia without lower urinary tract symptoms; Z86.73 Personal history of transient ischemic attack (TIA), and cerebral infarction without residual deficits
CPT/HCPCS: 36415; 71046; 80053; 81003; 81015; 83605; 83735; 83880; 84443; 84484; 85025; 85610; 86140; 87040; 87086; 93005; 96361; 96366; 96374; 99283

== ENCOUNTER 2018-05-24 10:47 | Inpatient (IN) | payer MEDICARE ==
[2018-05-24] MEDS ORDERED: Dextrose 50% Syringe 50 ML* 25 GM/50 ML SYRINGE ONE (10:52)
[2018-05-24] MEDS ORDERED: Dextrose 50% Syringe 50 ML* 25 GM/50 ML SYRINGE IV PUSH ONE (11:02)
--- NOTE | 2018-05-24 11:08 | ED ---
HPI Diabetic - HPI Summary HPI Summary: Pt is an 82 y/o M presenting to the ED brought in by EMS for AMS. Per EMS, the pt was very combative and soiled himself on arrival. The DRUG ROOM OPERATOR said he fell out of bed this morning around 0300 and did not complain of pain, and upon waking up his blood sugar was extremely low. This morning, his blood pressure was 100/ 60, and he was unresponsive and rolling around in bed this morning, and could not drink orange juice. EMS gave him glucagon. When the pt woke up in the ED, he states he had the flu 3 weeks ago, he has decreased oral intake and reduced appetite. He states he has been taking his insulin as prescribed but usually takes it first thing in the morning. The pt denies any fever, chills, erythema of eyes, sore throat, CP, SOB, cough, abdominal pain, N/V, dysuria, hematuria, myalgia, edema, rash, or dizziness. - History Of Current Complaint Chief Complaint: EDDiabeticProb Hx Obtained From: Patient, EMS Onset/Duration: Sudden Onset, Lasting Hours, Still Present Timing: Hours Severity Initially: Moderate Severity Currently: Moderate Character: Other - aggressive Aggravating: Nothing Alleviating: EMS Treatment Related History: Compliant, Insulin Requiring - Allergies/Home Medications Allergies/Adverse Reactions: Allergies Allergy/AdvReac Type Severity Reaction Status Date / Time nitroglycerin Allergy Severe Anaphylatic Verified 05/24/18 11:15 Shock levofloxacin Allergy Intermediate Itching Verified 05/24/18 11:15 Iodinated Contrast- Oral and AdvReac Severe Altered Verified 05/24/18 11:15 IV Dye Mental Status Home Medications: Home Medications Atorvastatin* [Lipitor 80 MG*] 40 mg PO DAILY 05/24/18 [History Confirmed ] Cephalexin CAP* [Keflex 500 CAP*] 500 mg PO BID 05/24/18 [History Confirmed 07/09] Cholecalciferol TAB* [Vitamin D TAB*] 1,000 unit PO DAILY 05/24/18 [History Confirmed 05/24/18] Lisinopril TAB* [Prinivil TAB 10 MG*] 5 mg PO DAILY 05/24/18 [History Confirmed 05/24/18] Omeprazole CAP (NF) [Prilosec CAP* 20 MG] 20 mg PO QAM 05/24/18 [History Confirmed 05/24/18] Phenazopyridine TAB* [Pyridium 100 mg TAB*] 100 mg PO TID PRN 05/24/18 [History Confirmed 05/24/18] PMH/Surg Hx/FS Hx/Imm Hx Previously Healthy: No Endocrine/Hematology History: Reports: Hx Anticoagulant Therapy, Hx Blood Transfusions, Hx Diabetes, Hx Anemia Denies: Hx Blood Disorders, Hx Bone Marrow Disease, Hx Systemic Lupus Erythematosus, Hx Sickle Cell Disease, Hx Thyroid Disease, Hx Unexplained Bleeding Cardiovascular History: Reports: Hx Angina, Hx Angioplasty, Hx Cardiac Arrest - 03/05/14, Hx Congestive Heart Failure, Hx Coronary Artery Disease, Hx Deep Vein Thrombosis, Hx Hypercholesterolemia, Hx Hypertension, Hx Myocardial Infarction, Hx Syncope, Hx Valvular Heart Disease Denies: Hx Aneurysm, Hx Auto Implanted Cardiovert Defib, Hx Cardiomegaly, Hx Congenital Heart Disease, Hx Hypotension, Hx Pacemaker/ICD, Hx Peripheral Vascular Disease, Hx Rheumatic Fever, Other Cardiovascular Problems/Disorders Respiratory History: Reports: Hx Chronic Bronchitis, Hx Chronic Obstructive Pulmonary Disease (COPD), Hx Pleural Effusion, Hx Pneumonia, Hx Pulmonary Edema , Hx Sleep Apnea - CPAP, Other Respiratory Problems/Disorders - Bronchitis Denies: Hx Asthma, Hx Cystic Fibrosis, Hx Lung Cancer, Hx Pulmonary Embolism , Hx Seasonal Allergies GI History: Reports: Hx Gastroesophageal Reflux Disease, Hx Hiatal Hernia, Hx Obstructive Bowel Denies: Hx Cirrhosis, Hx Crohn's Disease, Hx Diverticulosis, Hx Gall Bladder Disease, Hx Gastrointestinal Bleed, Hx Irritable Bowel, Hx Jaundice, Hx Ileostomy, Hx Pyloric Stenosis, Hx Ulcer, Other GI Disorders History: Reports: Hx Benign Prostatic Hyperplasia, Hx Kidney Infection Denies: Hx Acute Renal Failure, Hx Chronic Renal Failure, Hx Dialysis, Hx Kidney Stones, Other Problems/Disorders Musculoskeletal History: Reports: Hx Arthritis, Hx Back Problems, Other Musculoskeletal History - BLE weakness hx CVA, uses scooter at home Denies: Hx Bursitis, Hx Congenital Bone Abnormalities, Hx Fibromyalgia, Hx Gout, Hx Orthopedic Injury, Hx Osteoporosis, Hx Scoliosis, Hx Tendonitis Sensory History: Reports: Hx Cataracts - due for sx, Hx Contacts or Glasses, Hx Vision Problem, Hx Hearing Aid - at home, Hx Hearing Problem Denies: Hx Eye Injury, Hx Eye Prosthesis, Hx Glaucoma, Hx Legally Blind, Hx Macular Degeneration, Hx Deafness, Other Sensory Impairments Opthamlomology History: Reports: Hx Cataracts - due for sx, Hx Contacts or Glasses, Hx Vision Problem Denies: Hx Eye Injury, Hx Eye Prosthesis, Hx Glaucoma, Hx Legally Blind, Hx Macular Degeneration, Other Sensory Impairments Neurological History: Reports: Hx Seizures, Hx Transient Ischemic Attacks (TIA) Denies: Hx Dementia, Hx Developmental Delay, Hx Headaches, Hx Migraine, Hx Nerve Disease, Hx Spinal Cord Injury, Other Neuro Impairments/Disorders Psychiatric History: Reports: Hx Anxiety, Hx Depression - He thinks about the of his and son often., Hx Post Traumatic Stress Disorder, Other Psychiatric Issues/Disorders - Had one episode of emotional shock, but no depression etc since. Denies: Hx Attention Deficit Hyperactivity Disorder, Hx Eating Disorder, Hx Panic Disorder, Hx Inpatient Treatment, Hx Community Mental Health Tx, Hx Schizophrenia, Hx Bipolar Disorder, Hx Suicide Attempt, Hx of Violent Episodes Against Others, Hx Substance Abuse - Cancer History Cancer Type, Location and Year: Skin cancer on scalp - Surgical History Surgery Procedure, Year, and Place: Bypass 2008. hernia 1957. left shoulder sx in [place] in 1965. CABG. 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 Denies: Hx Clostridium Difficile, Hx Hepatitis, Hx Human Immunodeficiency Virus (HIV), Hx Shingles, Hx Tuberculosis, Hx Known/Suspected VRE, History Other Infectious Disease, Traveled Outside the [place] in Last 30 Days - Family History Known Family History: Positive: Cardiac Disease, Diabetes, Other - uterine CA, colon CA - Social History Alcohol Use: None Hx Substance Use: No Substance Use Type: Reports: None Hx Tobacco Use: No Smoking Status (MU): Never Smoked Tobacco Have You Smoked in the Last Year: No Review of Systems Negative: Fever, Chills Negative: Erythema Negative: Sore Throat Negative: Chest Pain Negative: Shortness Of Breath, Cough Positive: Other - decreased oral intake, reduced appetite Negative: burning, dysuria, hematuria Negative: Myalgia, Edema Negative: Rash Neurological: Negative - dizziness All Other Systems Reviewed And Are Negative: Yes Physical Exam - Summary Physical Exam Summary: Constitutional: Well-developed, Well-nourished, Alert. (-) Distressed Skin: Warm, Dry HENT: Normocephalic; Atraumatic, dry mucous membranes Eyes: Conjunctiva normal Neck: Musculoskeletal ROM normal neck. (-) JVD, (-) Stridor, (-) Tracheal deviation Cardio: Rhythm regular, rate normal, Heart sounds normal; Intact distal pulses; The pedal pulses are 2+ and symmetric. Radial pulses are 2+ and symmetric. (-) Murmur Pulmonary/Chest wall: Effort normal. (-) Respiratory distress, (-) Wheezes, (-) Rales Abd: Soft, (-) tenderness, (-) Distension, (-) Guarding, (-) Rebound Musculoskeletal: (-) Edema Lymph: (-) Cervical adenopathy Neuro: Alert, Oriented x3 Psych: Mood and affect Normal Triage Information Reviewed: Yes Vital Signs On Initial Exam: Initial Vitals Temp Pulse Resp BP Pulse Ox 97.6 F 71 22 116/68 93 05/24/18 10:57 05/24/18 10:57 05/24/18 10:57 05/24/18 10:57 05/24/18 10:57 Vital Signs Reviewed: Yes Diagnostics - Vital Signs Vital Signs Temp Pulse Resp BP Pulse Ox 05/24/18 10:57 97.6 F 71 22 116/68 93 - Laboratory Result Diagrams: 05/25/18 08:01 05/25/18 06:10 Lab Statement: Any lab studies that have been ordered have been reviewed, and results considered in the medical decision making process. Diabetic Course/Dx - Course Course Of Treatment: Pt is an 82 y/o M presenting to the ED brought in by EMS for AMS. Per EMS, the pt was very combative and soiled himself on arrival. The DRUG ROOM OPERATOR said he fell out of bed this morning around 0300 and did not complain of pain, and upon waking up his blood sugar was extremely low. This morning, his blood pressure was 100/60, and he was unresponsive and rolling around in bed this morning, and could not drink orange juice. EMS gave him glucagon. When the pt woke up in the ED, he states he had the flu 3 weeks ago, he has decreased oral intake and reduced appetite. He states he has been taking his insulin as prescribed but usually takes it first thing in the morning. The pt denies Pt denies any fever, chills, erythema of eyes, sore throat, CP, SOB, cough, abdominal pain, N/V, dysuria, hematuria, myalgia, edema, rash, or dizziness. Dr. Guajardo will be admitting the pt to [facility] with dx including UTI and hypoglycemia. - Diagnoses Provider Diagnoses: UTI (urinary tract infection), Hypoglycemia Discharge - Sign-Out/Discharge Documenting (check all that apply): Patient Departure - Discharge Plan Condition: Improved Disposition: ADMITTED TO [facility] - Billing Disposition and Condition Condition: IMPROVED Disposition: Admitted to [facility] - Attestation Statements Document Initiated by Scribe: Yes Documenting Scribe: Yelena Vicente Provider For Whom Scribe is Documenting (Include Credential): Brian Leahy MD. Scribe Attestation: Yelena Mack, scribed for Brian Leahy MD. on 05/27/18 at 2053. Scribe Documentation Reviewed: Yes Provider Attestation: The documentation as recorded by the scribe, Yelena Vicente accurately reflects the service I personally performed and the decisions made by , Brian Leahy MD. Status of Scribe Document: Viewed Consult Consult: [id number] - Spoke with Dr. Guajardo about the pt's present condition who will be the accepting physician to [facility].
[2018-05-24 11:13] LABS: ABS Basophils 0.1 10^3/ul (0-0.2); ABS Eosinophils 0.1 10^3/ul (0-0.6); ABS Lymphocytes 1.5 10^3/ul (1.0-4.8); ABS Neutrophils 10.4 10^3/ul (1.5-7.7); ABS Nucleated RBC 0 10^3/ul; Eosinophil % 0.9 %; Hematocrit 41 % (42-52); Hemoglobin 13.7 g/dl (14.0-18.0); Lymphocyte % 11.8 %; Mean Corpuscular HGB Conc 33 g/dl (31-36); Mean Corpuscular Hemoglobin 28 pg (27-31); Mean Corpuscular Volume 83 fL (80-94); Mean Platelet Volume 7.9 fL (7.4-10.4); Nucleated Red Blood Cells % 0.1; Platelet Count 244 10^3/ul (150-450); Red Blood Count 4.98 10^6/ul (4.00-5.40); Red Cell Distribution Width 16 % (10.5-15); White Blood Count 13.1 10^3/ul (3.5-10.8)
[2018-05-24 11:24] LABS: Albumin 3.8 g/dL (3.2-5.2); BUN/Creatinine Ratio 23.9 (8-20); Calcium 8.9 mg/dL (8.6-10.3); EGFR Non-African American 49.6 (>60); Globulin 3.7 g/dL (2-4); Potassium 3.8 mmol/L (3.5-5.0); Total Bilirubin 0.7 mg/dL (0.2-1.0); Total Protein 7.5 g/dL (6.4-8.9)
[2018-05-24] MEDS ORDERED: NS 0.9% 1000 ML** 2,000 ML IV ONE (11:57)
[2018-05-24 12:45] LABS: Urine Appearance Turbid; Urine Bacteria Absent (Absent); Urine Bilirubin Negative (Negative); Urine Blood 2+ (Negative); Urine Color Amber; Urine Glucose Negative (Negative); Urine Ketones Negative (Negative); Urine Nitrite Negative (Negative); Urine Protein Negative (Negative); Urine Red Blood Cell 3+(>10/hpf) (Absent); Urine Specific Gravity 1.015 (1.010-1.030); Urine Urobilinogen Negative (Negative); Urine White Blood Cell 3+(>20/hpf) (Absent)
[2018-05-24] MEDS ORDERED: ED cefTRIAXone 1 GM/50 ML 1 GM/50 ML PREMIX.SET IVPB ONE (13:56)
[2018-05-24] MEDS ORDERED: cefTRIAXone(*) 1 GM ADVAN/BAG ONE (14:18)
[2018-05-24] MEDS ORDERED: Dextrose 50% Syringe 50 ML* 25 GM/50 ML SYRINGE IV PUSH PRN (16:21)
[2018-05-24] MEDS ORDERED: Albuterol HFA INHALER* 8 gm MDI INH PRN (17:02)
[2018-05-24] MEDS ORDERED: Acetaminophen TAB* 325 MG PO PRN (17:02)
[2018-05-24] MEDS ORDERED: hydrOXYzine HCL TAB* 10 MG PO PRN (17:04)
[2018-05-24] MEDS: Insulin LISPRO* 1 UNITS UNIT SUBCUT SCH ×2 (19:13→22:08)
[2018-05-24] MEDS: Atorvastatin* 40 MG TAB PO SCH (19:13)
--- NOTE | 2018-05-24 19:41 | HP ---
HISTORY AND PHYSICAL: DATE OF ADMISSION: 05/24/18 PRIMARY CARE PROVIDER: Dr. Ruano. ADMITTING PHYSICIAN: Dr. Guajardo. CHIEF COMPLAINT: Unresponsiveness and then combativeness. HISTORY OF PRESENT ILLNESS: Foster Escamilla is an 82-year-old male with past medical history of CVA; CAD; insulin-dependent diabetes mellitus type 2; atrial fibrillation, on Coumadin; obstructive sleep apnea; obesity hypoventilation syndrome; chronic hypoxic respiratory failure, on 3 L; and severe aortic stenosis on last echo with MARQUEZ of 0.6 cm by peak and 0.7 cm by VTI, who had been transferred from this facility on 03/11/18 for evaluation for TAVR or other intervention. He is a poor historian and says that they did not do that procedure and was only medically managing him. I talked to Barbara Gtz, who is the [facility] nursing that takes care of him and she thinks that he got "a stent," but does not recognize the term TAVR. He presents today with unresponsive episode. He has a 24-hour roommate and band splitter, Dominic. His blood sugar was checked and it was reportedly 51 versus 41 and he got some glucagon. He was taken to [facility] Emergency Room. He was combative, confused. He got some dextrose IV pushes and urinalysis was concerning for urinary tract infection with 3+ leukocyte esterase, 3+ wbc's, 2+ blood, and he had a white count of 13.1. For the unresponsive episode, altered mental status, hypoglycemia and UTI, he was referred to hospitalist service for admission. He denies any chest pain, shortness of breath, cough. He is asking for food, says he has not eaten much last night and the day before and his blood sugars were in the 130s yesterday. Barbara Gtz says that he is frequently noncompliant with his medications. He is listed as being on Keflex, but Barbara thought he was on Cipro, for the past few weeks for lower extremity wound that has been developed after he has been banging his leg against his wheelchair and also opened his leg, he has been falling out of his hospital bed very angry 2 weeks ago. PAST MEDICAL HISTORY: Includes CAD; insulin-dependent diabetes mellitus; CVA; obesity hypoventilation syndrome; obstructive sleep apnea; paroxysmal atrial fibrillation, on Coumadin; severe aortic stenosis, unclear if he has had intervention, we have requested the records. MEDICATIONS: These are not completely confirmed as he was sent with an old list and Barbara Gtz did not have access to his current list, but I believe he is on: 1. Aspirin 81 mg. 2. Atorvastatin 20 mg. 3. Cholecalciferol 1000 units daily. 4. Guaifenesin p.r.n. q.4 hours for cough. 5. Metformin 500 mg at dinner. 6. Sertraline 100 mg in the a.m. 7. Albuterol 2 puffs inhaled q.4 hours p.r.n. 8. Supplemental oxygen 3.5 L. 9. Lasix 40 mg b.i.d. 10. Acetaminophen 650 mg p.r.n. q.4 hours pain. 11. Senna 1 to 2 tabs in the a.m. and h.s. as needed. 12. 35 units Lantus b.i.d. 13. Metoprolol tartrate 25 mg b.i.d. 14. Finasteride 5 mg daily. 15. Ambien 10 mg daily. 16. Hydroxyzine 10 mg tabs p.r.n. for anxiety. 17. Warfarin, unclear dosing. ALLERGIES: Include NITRO, LEVOFLOXACIN (intermittent itching). FAMILY HISTORY: Reviewed and noncontributory. SOCIAL HISTORY: No tobacco or alcohol. 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 Lives with band splitter 13/10Dominic and has [facility] services. He is a full code. REVIEW OF SYSTEMS: A complete 14-point review of systems was negative except as per HPI. PHYSICAL EXAMINATION GENERAL APPEARANCE: No acute distress, but currently ill-appearing with face mask oxygen, morbid obesity, chronic leg wounds. VITAL SIGNS: Temperature 97.6; pulse rate 50s; respiratory rate 16; blood pressure 142/75, low blood pressure of 96/60 actually. HEENT: Normocephalic, atraumatic. Pupils are equal, round, and reactive to light. Extraocular motions intact. No scleral icterus. NECK: Supple. No cervical lymphadenopathy. LUNGS: Clear to auscultation bilaterally. No wheezing, rales, or rhonchi. CARDIAC: Regular rate and rhythm. No murmurs, rubs, or gallops. ABDOMEN: Soft, distended. No rebound. No guarding. Obese. EXTREMITIES: Warm and well perfused. No peripheral edema. He has these eschars along his right lower extremity with minimal surrounding erythema. No drainage. Moving all extremities. NEUROLOGIC: Cranial nerves II through XII intact. DIAGNOSTIC STUDIES/LAB DATA: White count 13.1, hemoglobin 13.7, hematocrit 41 , platelets 244. ABG; pH 7.43, pCO2 37, pO2 105, bicarb of 25.3. Sodium 142, potassium 3.8, chloride 106, carbon dioxide 28, creatinine 1.38. Glucose 51, improved currently to 185 and 101. Lactic acid 1.8, calcium 8.9. Total bili 0.7, AST 19, ALT 12, alk phos 125. BNP 767. Urinalysis: 2+ blood, 3+ leukocyte esterase, 3+ rbc's, urine present. Imaging: None. ASSESSMENT AND PLAN: Foster Escamilla is an 82-year-old male with past medical history of coronary artery disease, severe aortic stenosis, insulin-dependent diabetes mellitus, hypertension, hyperlipidemia, obstructive sleep apnea, chronic hypoxic respiratory failure, presenting with acute unresponsive episode in the setting of severe hypoglycemia, in the setting of insulin-dependent diabetes mellitus. He has had poor intake, was altered, combative and is now improving somewhat. Continue, for urinary tract infection and his leg wound, ceftriaxone 1 g daily. It is of note, he has been either on Keflex or Cipro as an outpatient, we will try to clarify from outpatient records. Continue for his chronic conditions his Lasix 40 mg twice a day and his metoprolol tartrate 25 mg b.i.d., his atorvastatin/Lipitor. I am going to hold his lisinopril given his blood pressure dropped on further evaluation and in the setting of infection. Continue his Zoloft. He is a full code. He can eat a carbohydrate consistent, heart-healthy diet. He is being admitted to observation status to make sure his sugars are corrected and his mental status improves. [id number]/[facility] #: [id number] [facility] AREA HOSPITALGeorgina
[2018-05-24] MEDS: Furosemide TAB* 40 MG PO SCH (22:08)
[2018-05-24] MEDS: Metoprolol Tartrate TAB* 25 MG PO SCH (22:08)
--- NOTE | 2018-05-25 02:54 | PN ---
Progress Note - Progress Note Date of Service: 05/25/18 Note: CAT call for agitation and change in mental status. Glucose: 32. Vitals stable. 1 amp of D50 given. Patient more alert and oriented. Wanted to take biPAP off. B/L expiratory wheezing. Will order neb tx. Check glucose q1 hour until stabilizes, change to Lispro AC. Will check BMP, Cortisol and TSH this AM
[2018-05-25] MEDS ORDERED: Albuterol/Ipratropium NEB.SOL* Albuterol 2.5 MG/Ipratropium 0.5 MG 3 ML ONE (02:59)
[2018-05-25] MEDS ORDERED: Albuterol/Ipratropium NEB.SOL* Albuterol 2.5 MG/Ipratropium 0.5 MG 3 ML INH ONE (03:30)
[2018-05-25 07:30] LABS: BUN/Creatinine Ratio 23.6 (8-20); Calcium 8.3 mg/dL (8.6-10.3); EGFR Non-African American 54.6 (>60); Potassium 4.2 mmol/L (3.5-5.0)
[2018-05-25] MEDS ORDERED: Insulin LISPRO* 1 UNITS UNIT SUBCUT SCH (07:30)
[2018-05-25 08:14] LABS: Hematocrit 33 % (42-52); Mean Corpuscular HGB Conc 34 g/dl (31-36); Mean Corpuscular Hemoglobin 27 pg (27-31); Mean Corpuscular Volume 82 fL (80-94); Mean Platelet Volume 7.7 fL (7.4-10.4); Platelet Count 171 10^3/ul (150-450); Red Cell Distribution Width 15 % (10.5-15); White Blood Count 7.8 10^3/ul (3.5-10.8)
[2018-05-25] MEDS: Pantoprazole TAB * 40 MG TAB PO SCH (08:29)
[2018-05-25] MEDS: Sertraline* 100 MG TAB PO SCH (08:29)
[2018-05-25] MEDS: Atorvastatin* 40 MG TAB PO SCH (08:29)
[2018-05-25] MEDS: Furosemide TAB* 40 MG PO SCH ×2 (08:29→21:49)
[2018-05-25] MEDS: Finasteride TAB* 5 MG PO SCH (08:29)
[2018-05-25] MEDS: Cholecalciferol TAB* 1000 UNITS PO SCH (08:29)
[2018-05-25] MEDS: Metoprolol Tartrate TAB* 25 MG PO SCH ×2 (08:29→21:49)
[2018-05-25] MEDS: Aspirin EC TAB* 81 MG TAB.EC PO SCH (08:29)
[2018-05-25] MEDS ORDERED: Lisinopril TAB* 10 MG PO SCH (09:00)
[2018-05-25 09:29] LABS: TSH (Thyroid Stimulating Horm) 1.38 mcIU/mL (0.34-5.60)
--- NOTE | 2018-05-25 11:31 | PN ---
Subjective Interval History: CAT call for agitation in early AM. Found to be hypogylcemic to 30s overnight, got d50 Endocrinology consulted this AM denies complaints other than tenderness with palpation near leg wounds. afebrile. chronic 3L Objective Active Medications: Acetaminophen (Tylenol Tab*) 650 mg PO Q4H PRN PRN Reason: PAIN Albuterol (Ventolin Hfa Inhaler*) 2 puff INH Q4H PRN PRN Reason: SOB/WHEEZING Aspirin (Aspirin Ec Tab*) 81 mg PO QAM [facility] Last Admin: 05/25/18 08:29 Dose: 81 mg Atorvastatin Calcium (Lipitor*) 40 mg PO DAILY [facility] Last Admin: 05/25/18 08:29 Dose: 40 mg Cholecalciferol (Vitamin D Tab*) 1,000 units PO DAILY [facility] Last Admin: 05/25/18 08:29 Dose: 1,000 units Dextrose (D50w Syringe 50 Ml*) 12.5 gm IV PUSH .FOR FS < 60 - SS PRN PRN Reason: FS < 60 Last Admin: 05/25/18 02:52 Dose: 25 gm Finasteride (Proscar Tab*) 5 mg PO DAILY [facility] Last Admin: 05/25/18 08:29 Dose: 5 mg Furosemide (Lasix Tab*) 40 mg PO BID [facility] Last Admin: 05/25/18 08:29 Dose: 40 mg Hydroxyzine HCl (Atarax Tab*) 10 mg PO TID PRN PRN Reason: ANXIETY Ceftriaxone Sodium 1,000 mg/ (Sodium Chloride) 50 mls @ 200 mls/hr IVPB Q24H [facility] Metoprolol Tartrate (Lopressor Tab*) 25 mg PO BID [facility] Last Admin: 05/25/18 08:29 Dose: 25 mg Pantoprazole Sodium (Protonix Tab*) 40 mg PO QAM [facility] Last Admin: 05/25/18 08:29 Dose: 40 mg Sertraline HCl (Zoloft*) 100 mg PO QAM [facility] Last Admin: 05/25/18 08:29 Dose: 100 mg Vital Signs - 8 hr 05/25/18 05/25/18 05/25/18 03:31 08:00 08:10 Temperature 97.2 F Pulse Rate 120 58 Respiratory 20 16 16 Rate Blood Pressure 99/55 (mmHg) O2 Sat by Pulse 95 97 Oximetry Oxygen Devices in Use Now: Nasal Cannula Appearance: chronically ill appearting, no acute distress. Eyes: No Scleral Icterus Ears/Nose/Mouth/Throat: NL Teeth, Lips, Gums Respiratory: Symmetrical Chest Expansion and Respiratory Effort, Clear to Auscultation Cardiovascular: RRR Abdominal: - - obese, soft, nontender. Extremities: No Edema Skin: - - eschar on right lower extremity no significant erythema drainage or warmth. Neurological: Alert and Oriented x 3 Nutrition: Taking PO's Result Diagrams: 05/25/18 08:01 05/25/18 06:10 Additional Lab and Data: Laboratory Results - last 24 hr 05/25/18 05/25/18 05/25/18 02:34 03:40 05:07 WBC RBC Hgb Hct MCV MCH MCHC RDW Plt Count MPV Sodium Potassium Chloride Carbon Dioxide Anion Gap BUN Creatinine Est GFR ( Amer) Est GFR (Non-Af Amer) BUN/Creatinine Ratio Glucose POC Glucose (mg/dL) 32 L* 94 80 Calcium TSH Cortisol 05/25/18 05/25/18 05/25/18 06:01 06:10 07:16 WBC RBC Hgb Hct MCV MCH MCHC RDW Plt Count MPV Sodium 140 Potassium 4.2 Chloride 106 Carbon Dioxide 26 Anion Gap 8 BUN 30 H Creatinine 1.27 H Est GFR ( Amer) 66.0 Est GFR (Non-Af Amer) 54.6 BUN/Creatinine Ratio 23.6 H Glucose 75 POC Glucose (mg/dL) 82 84 Calcium 8.3 L TSH 1.38 Cortisol 12.58 05/25/18 05/25/18 05/25/18 08:01 11:36 17:05 WBC 7.8 RBC 4.00 Hgb 11.0 L Hct 33 L MCV 82 MCH 27 MCHC 34 RDW 15 Plt Count 171 MPV 7.7 Sodium Potassium Chloride Carbon Dioxide Anion Gap BUN Creatinine Est GFR ( Amer) Est GFR (Non-Af Amer) BUN/Creatinine Ratio Glucose POC Glucose (mg/dL) 231 H 264 H Calcium TSH Cortisol 05/25/18 20:18 WBC RBC Hgb Hct MCV MCH MCHC RDW Plt Count MPV Sodium Potassium Chloride Carbon Dioxide Anion Gap BUN Creatinine Est GFR ( Amer) Est GFR (Non-Af Amer) BUN/Creatinine Ratio Glucose POC Glucose (mg/dL) 323 H Calcium TSH Cortisol Microbiology and Other Data: Microbiology 05/24/18 12:03 Urine Urine Culture - Final No Growth (<1,000 CFU/mL) Assess/Plan/Problems-Billing Assessment: 82 yo male PMH severe s/p likely open valve surgery given new sternotomy, CKDIII, CAD, chronic hypoxic respiratory failure, pAfib on coumadin, longstanding IDDMT2 (on lantus 25U BID) presenting with unresponsiveness and hypoglycemia to 40. Another episode overnight #1 with only 2,3U of lispro. Subacute leg wounds on keflex. Endocrinology consulted. - Patient Problems (1) Diabetes mellitus Current Visit: No Status: Acute Priority: High Code(s): E11.9 - TYPE 2 DIABETES MELLITUS WITHOUT COMPLICATIONS SNOMED Code(s): 09150988 Comment: had been on 25U bid but bottomed out at home in setting of worse appetite. home metformin 500mg daily. Appreciate Dr. Noyola of Endocrinology. Start Victoza 0.6mg daily- Lantus restarted at 30U q24. stop metformin. Last A1C here Mar 2017 was 10.1%. [facility]. (2) Toxic metabolic encephalopathy Current Visit: Yes Status: Acute Code(s): G92 - TOXIC ENCEPHALOPATHY SNOMED Code(s): 196292199 Comment: in setting of severe hypoglycemia most likely cause. leg wounds and possible viral insult also may have contributed. improved. (3) Severe aortic stenosis Current Visit: No Status: Acute Code(s): I35.0 - NONRHEUMATIC AORTIC (VALVE ) STENOSIS SNOMED Code(s): 75650507 Comment: obtain [facility] cardiology records. Per the last Apr 2018 CXR it looks like new sternotomy and valve surgery - likely open instead of TAVR (4) Leg wound, right Current Visit: Yes Status: Acute Code(s): S81.801A - UNSPECIFIED OPEN WOUND , RIGHT LOWER LEG, INITIAL ENCOUNTER SNOMED Code(s): 271304957 Comment: UCx has returned no growth (not suprising as he has been on keflex for weeks). Stop CFTX and return to keflex with close outpatient follow-up. No cellulitis currently but eschars. obtain official [facility] as [facility] RN Barbara Gtz did not have current med list. (5) Afib Current Visit: No Status: Acute Priority: High Code(s): I48.91 - UNSPECIFIED ATRIAL FIBRILLATION SNOMED Code(s): 30917336 Comment: add INR and obtain med list. unclear current dose of warfrain. continue metoprolol 25mg po BID. (6) CAD (coronary artery disease) Current Visit: No Status: Acute Priority: High Code(s): I25.10 - ATHSCL HEART DISEASE OF [place] CORONARY ARTERY W/O ANG PCTRS SNOMED Code(s): 02232029 Comment: Continue ASA 81 mg daily. BB, statin. obtain records. (7) CHF (congestive heart failure) Current Visit: No Status: Acute Priority: High Code(s): I50.9 - HEART FAILURE, UNSPECIFIED SNOMED Code(s): 78437147 Comment: ECHO from Mar 2017 showed diastolic dysfunction. Feb 2018 with pEF. Obtain [facility] records. BNP elevated to 760, at baseline O2 requirement. Continue home Lasix 40mg po BID. get CXR. weights are labile in ED records and difficult to reliably interpret. daily weigths, strict io. got 2L bolus in ED for SIRS (8) DVT prophylaxis Current Visit: No Status: Acute Priority: High Code(s): YNO6250 - SNOMED Code(s): 694891528 Comment: - check INR, restart Warfarin as appropriate with potential lovenox as needed. (9) History of CVA (cerebrovascular accident) Current Visit: No Status: Acute Priority: High Code(s): Z86.73 - PRSNL HX OF TIA (TIA), AND CEREB INFRC W/O RESID DEFICITS SNOMED Code(s): 408454365 Comment: secondary prevention with asa and statin (10) UTI (urinary tract infection) Current Visit: No Status: Acute Comment: culture negative but was on keflex for weeks. (11) Chronic respiratory failure Current Visit: No Status: Acute Code(s): J96.10 - CHRONIC RESPIRATORY FAILURE, UNSP W HYPOXIA OR HYPERCAPNIA SNOMED Code(s): 28828108 Comment: on 3L home oxygen. I don't have PFTs to confirm. lifelong nonsmoker but some second hand smoke exposure. CHF, obesity hypoventilation syndrome, [place]AM[place] likely contributing. continue albuterol nebs. [facility] not bronchospastic. Status and Disposition: medicine inpatient. has olive picker. possible d/c next 24-48 hours if encephalopathy and blood glucose stable.
--- NOTE | 2018-05-25 13:29 | CONSULT ---
Consult Consult: [facility] Inpatient Consult Note Date of Consult: 05/25/18 Reason for Consult: type 2 diabetes Reason for Admission: hypoglycemia ASSESSMENT: 82 yo M with mild, obesity-related type 2 diabetes, now admitted for hypoglycemia and AMS. Underlying factors leading to this admission include influenza-like illness has resulted in significant weight loss and poor appetite. Use of high-dose basal insulin alone is no longer recommended by ADA/ EASD guidelines for treatment of patients with T2DM. I recommend use of an insulin-sparing agent such as Victoza and have contacted his OR provider ( Kamla Henry) to request this medication for him. In the meantime, a reduced dose of basal insulin or change to BID mixed insulin 70/30 is appropriate. Due to poor functional status at baseline, he is not a candidate for multi-dose insulin regimen. Oral medications are not appropriate due to impaired renal function (metformin, SGLT2i) or therapeutic futility (pioglitazone, acarbose). Glipizide is safe, but likely of limited value. Dietary interventions to reduce carbohydrates are useful, though challenging. Finally, it was requested that the patient remain on PO antibiotics for wounds on the ankles [facility] the next 7-10 days. PLAN: - decrease Lantus to 30 units once daily - start Victoza 0.6mg once daily as outpatient (requested through [facility] provider , Kamla Henry) - start glipizide XL 10mg once daily in the morning - change to PO antibiotics for LE wounds SUBJECTIVE: History of Present Illness: 82 yo M with history of T2DM and A1c >10% since 2017 , along with CAD, , CKD, DL, HTN and TAMICA who presented with acute unresponsive episode and hypoglycemia. He tells me that he has been losing weight (>20lbs) in the past several weeks due to flu-like illness. His appetite has been poor. He has been using Lantus 25 units BID for several months. Each dose is prepared by a home health aide in advance and there is no chance that he could have delivered the wrong dose. Other recent issues include a poorly- healing LEFT leg wound for which oral antibiotics (Keflex) have been prescribed by his [facility]. He has developed a similar wound on his RIGHT leg recently after bumping this leg. He has had diabetes for >15 years and has been on insulin for approximately >10 years. A1c have risen from ~8% to 10% since 2016. His Lantus dose has increased from 30 units/day to 50 units/day. He has not used most oral hypoglycemic medications in several years due to CKD. Complications of diabetes include macro - and microvascular disease. No prior episodes of severe diabetes or DKA. No prior episodes of hypoglycemia. Past Medical History: As above. Medications Prior to Admission: Furosemide TAB* [Lasix TAB*] 40 mg PO BID 12/01/12 [History Confirmed 05/24/18] Aspirin EC TAB* [Ecotrin EC Low Dose 81 MG*] 81 mg PO QAM 10/05/13 [History Confirmed 05/24/18] Albuterol HFA INHALER* [Ventolin HFA Inhaler*] 2 puff INH Q4H PRN 06/19/15 [ History Confirmed 05/24/18] Finasteride TAB* [Proscar TAB*] 5 mg PO DAILY 06/19/15 [History Confirmed ] Sertraline* [Zoloft*] 100 mg PO QAM 06/19/15 [History Confirmed 05/24/18] Nystatin CREAM* [Nystatin Cream*] 1 applic TOPICAL TID PRN 11/21/15 [History Confirmed 05/24/18] Acetaminophen TAB* [Tylenol TAB*] 650 mg PO Q4H PRN 10/02/16 [History Confirmed 05/24/18] Warfarin TAB(*) [Coumadin TAB(*)] 3 tab PO TUTHSA 01/07/17 [History Confirmed ] Warfarin TAB(*) [Coumadin TAB(*)] 6 mg PO SUMOWEFR 01/07/17 [History Confirmed 05/24/18] Metoprolol Tartrate TAB* [Lopressor TAB*] 25 mg PO BID #60 tab 03/31/17 [Rx Confirmed 05/24/18] Mometasone 220 MCG MDI * [Asmanex 220 MCG MDI *] 2 puff INH BID 11/26/17 [ History Confirmed 05/24/18] Zolpidem TAB* [Ambien*] 5 mg PO BEDTIME PRN 11/26/17 [History Confirmed 05/24/18 ] guaiFENesin LIQ* [Robitussin*] 5 ml PO Q4H PRN 11/26/17 [History Confirmed 05/24] hydrOXYzine HCL TAB* [Atarax 10 MG TAB*] 10 mg PO TID PRN 11/26/17 [History Confirmed 05/24/18] Sennosides [Natural Laxative] 2 tab PO BID PRN 03/09/18 [History Confirmed 05/24] Atorvastatin* [Lipitor*] 40 mg PO DAILY 05/24/18 [History Confirmed 05/24/18] Cephalexin CAP* [Keflex CAP*] 500 mg PO BID 05/24/18 [History Confirmed 05/24/18 ] Cholecalciferol TAB* [Vitamin D TAB*] 1,000 unit PO DAILY 05/24/18 [History Confirmed 05/24/18] Insulin GLARGINE(*) [Lantus(*)] 25 units SUBCUT BID 05/24/18 [History Confirmed 05/24/18] Lisinopril TAB* [Prinivil TAB*] 5 mg PO DAILY 05/24/18 [History Confirmed ] Omeprazole CAP (NF) [Prilosec CAP* 20 MG] 20 mg PO QAM 05/24/18 [History Confirmed 05/24/18] Phenazopyridine TAB* [Pyridium 100 mg TAB*] 100 mg PO TID PRN 05/24/18 [History Confirmed 05/24/18] metFORMIN* [Glucophage 500 MG TAB *] 500 mg PO DAILY WITH MEAL 05/24/18 [ History Confirmed 05/24/18] Inpatient Medications: Acetaminophen (Tylenol Tab*) 650 mg PO Q4H PRN PRN Reason: PAIN Albuterol (Ventolin Hfa Inhaler*) 2 puff INH Q4H PRN PRN Reason: SOB/WHEEZING Aspirin (Aspirin Ec Tab*) 81 mg PO QAM [facility] Last Admin: 05/25/18 08:29 Dose: 81 mg Atorvastatin Calcium (Lipitor*) 40 mg PO DAILY [facility] Last Admin: 05/25/18 08:29 Dose: 40 mg Cholecalciferol (Vitamin D Tab*) 1,000 units PO DAILY [facility] Last Admin: 05/25/18 08:29 Dose: 1,000 units Dextrose (D50w Syringe 50 Ml*) 12.5 gm IV PUSH .FOR FS < 60 - SS PRN PRN Reason: FS < 60 Last Admin: 05/25/18 02:52 Dose: 25 gm Finasteride (Proscar Tab*) 5 mg PO DAILY [facility] Last Admin: 05/25/18 08:29 Dose: 5 mg Furosemide (Lasix Tab*) 40 mg PO BID [facility] Last Admin: 05/25/18 08:29 Dose: 40 mg Hydroxyzine HCl (Atarax Tab*) 10 mg PO TID PRN PRN Reason: ANXIETY Ceftriaxone Sodium 1,000 mg/ (Sodium Chloride) 50 mls @ 200 mls/hr IVPB Q24H [facility] Metoprolol Tartrate (Lopressor Tab*) 25 mg PO BID [facility] Last Admin: 05/25/18 08:29 Dose: 25 mg Pantoprazole Sodium (Protonix Tab*) 40 mg PO QAM [facility] Last Admin: 05/25/18 08:29 Dose: 40 mg Sertraline HCl (Zoloft*) 100 mg PO QAM [facility] Last Admin: 05/25/18 08:29 Dose: 100 mg Allergies/Intolerances: NTG, flouroquinolones, iodine Social History: Lives in a senior residence with prepared meals. Has roommate. Has home health aide. Retired . No alcohol, drugs. Family History: Non-contributory. Review of Systems: As above. No recent fever/chills. No current GI symptoms. No chest pain. 10 system review is otherwise normal. OBJECTIVE: Vital Signs: Temp Pulse Resp BP Pulse Ox 97.1 F 59 20 121/62 97 05/25/18 19:33 05/25/18 19:33 05/25/18 19:33 05/25/18 19:33 05/25/18 19:33 General: alert, pleasant, oriented, no distress ENT: neck supple, no thyromegaly, no bruit is heard Chest: CTAB, no wheezing or crackles CV: RRR, no murmur Abdomen: soft, non-tender Extremities: no edema, distal pulses intact Skin: warm, dry, no rash Neuro: grossly intact motor/sensory in extremities Psych: restricted affect, pleasant Labs: WBC 7.8 10^3/ul (3.5-10.8) 05/25/18 08:01 RBC 4.00 10^6/ul (4.00-5.40) 05/25/18 08:01 Hgb 11.0 g/dl (14.0-18.0) L 05/25/18 08:01 Hct 33 % (42-52) L 05/25/18 08:01 MCV 82 fL (80-94) 05/25/18 08:01 MCH 27 pg (27-31) 05/25/18 08:01 MCHC 34 g/dl (31-36) 05/25/18 08:01 RDW 15 % (10.5-15) 05/25/18 08:01 Plt Count 171 10^3/ul (150-450) 05/25/18 08:01 MPV 7.7 fL (7.4-10.4) 05/25/18 08:01 Neut % (Auto) 79.3 % 05/24/18 10:52 Lymph % (Auto) 11.8 % 05/24/18 10:52 [place] % (Auto) 7.5 % 05/24/18 10:52 Eos % (Auto) 0.9 % 05/24/18 10:52 Baso % (Auto) 0.5 % 05/24/18 10:52 Absolute Neuts (auto) 10.4 10^3/ul (1.5-7.7) H 05/24/18 10:52 Absolute Lymphs (auto) 1.5 10^3/ul (1.0-4.8) 05/24/18 10:52 Absolute Monos (auto) 1.0 10^3/ul (0-0.8) H 05/24/18 10:52 Absolute Eos (auto) 0.1 10^3/ul (0-0.6) 05/24/18 10:52 Absolute Basos (auto) 0.1 10^3/ul (0-0.2) 05/24/18 10:52 Absolute Nucleated RBC 0 10^3/ul 05/24/18 10:52 Nucleated RBC % 0.1 05/24/18 10:52 Patient Temperature Not Reportable 05/24/18 13:50 ABG pH 7.43 (7.35-7.45) 05/24/18 13:50 ABG pH (Temp Correct) Not Reportable 05/24/18 13:50 ABG pCO2 37 mmHg (35-45) 05/24/18 13:50 ABG pCO2 (Temp Corrct Not Reportable 05/24/18 13:50 ABG pO2 105 mmHg (80-100) H 05/24/18 13:50 ABG pO2 (Temp Correct Not Reportable 05/24/18 13:50 ABG HCO3 25.3 mmol/L (19-31) 05/24/18 13:50 ABG O2 Saturation 98.5 % (94.0-98.0) H 05/24/18 13:50 ABG Base Excess 0.5 mmol/L (-2.0-2.0) 05/24/18 13:50 Respiration Rate Not Reportable 05/24/18 13:50 O2 Delivery Device oxymask 3 lpm 05/24/18 13:50 Ventilator Type Not Reportable 05/24/18 13:50 Vent Mode Not Reportable 05/24/18 13:50 FiO2 Not Reportable 05/24/18 13:50 Inspiratory Time Not Reportable 05/24/18 13:50 PEEP Not Reportable 05/24/18 13:50 Pressure Support Not Reportable 05/24/18 13:50 Pressure Control Not Reportable 05/24/18 13:50 EPAP Not Reportable 05/24/18 13:50 IPAP Not Reportable 05/24/18 13:50 BiPAP Not Reportable 05/24/18 13:50 Sodium 140 mmol/L (135-145) 05/25/18 06:10 Potassium 4.2 mmol/L (3.5-5.0) 05/25/18 06:10 Chloride 106 mmol/L (101-111) 05/25/18 06:10 Carbon Dioxide 26 mmol/L (22-32) 05/25/18 06:10 Anion Gap 8 mmol/L (2-11) 05/25/18 06:10 BUN 30 mg/dL (6-24) H 05/25/18 06:10 Creatinine 1.27 mg/dL (0.67-1.17) H 05/25/18 06:10 Est GFR ( Amer) 66.0 (>60) 05/25/18 06:10 Est GFR (Non-Af Amer) 54.6 (>60) 05/25/18 06:10 BUN/Creatinine Ratio 23.6 (8-20) H 05/25/18 06:10 Glucose 75 mg/dL (70-100) 05/25/18 06:10 POC Glucose (mg/dL) 323 mg/dL (70-100) H 05/25/18 20:18 Lactic Acid 1.8 mmol/L (0.5-2.0) 05/24/18 10:52 Calcium 8.3 mg/dL (8.6-10.3) L 05/25/18 06:10 Total Bilirubin 0.70 mg/dL (0.2-1.0) 05/24/18 10:52 AST 19 U/L (13-39) 05/24/18 10:52 ALT 12 U/L (7-52) 05/24/18 10:52 Alkaline Phosphatase 125 U/L (34-104) H 05/24/18 10:52 B-Natriuretic Peptide 767 pg/mL (<=100) H 05/24/18 10:52 Total Protein 7.5 g/dL (6.4-8.9) 05/24/18 10:52 Albumin 3.8 g/dL (3.2-5.2) 05/24/18 10:52 Globulin 3.7 g/dL (2-4) 05/24/18 10:52 Albumin/Globulin Ratio 1.0 (1-3) 05/24/18 10:52 TSH 1.38 mcIU/mL (0.34-5.60) 05/25/18 06:10 Cortisol 12.58 mcg/dL 05/25/18 06:10 Urine Color Leana 05/24/18 12:03 Urine Appearance Turbid 05/24/18 12:03 Urine pH 5.0 (5-9) 05/24/18 12:03 Ur Specific [place] 1.015 (1.010-1.030) 05/24/18 12:03 Urine Protein Negative (Negative) 05/24/18 12:03 Urine Ketones Negative (Negative) 05/24/18 12:03 Urine Blood 2+ (Negative) A 05/24/18 12:03 Urine Nitrate Negative (Negative) 05/24/18 12:03 Urine Bilirubin Negative (Negative) 05/24/18 12:03 Urine Urobilinogen Negative (Negative) 05/24/18 12:03 Ur Leukocyte Esterase 3+ (Negative) A 05/24/18 12:03 Urine WBC (Auto) 3+(>20/hpf) (Absent) A 05/24/18 12:03 Urine RBC (Auto) 3+(>10/hpf) (Absent) A 05/24/18 12:03 Urine Bacteria Absent (Absent) 05/24/18 12:03 Hyaline Casts Present (Absent) A 05/24/18 12:03 Urine Yeast Present (Absent) A 05/24/18 12:03 Urine Glucose Negative (Negative) 05/24/18 12:03
[2018-05-25] MEDS ORDERED: cefTRIAXone VIAL(*) 1,000 MG in NS 0.9% 50 ML* 50 ML IVPB SCH (14:00)
[2018-05-25] MEDS ORDERED: Insulin GLARGINE(*) 1 UNITS UNIT SUBCUT SCH (15:00)
[2018-05-25] MEDS: Liraglutide (NF) 18 MG/3 ML SUBCUT SCH (15:47)
[2018-05-25] MEDS ORDERED: Senna TAB PO PRN (22:57)
[2018-05-25] MEDS ORDERED: guaiFENesin LIQ* 100 MG/5 ML UDC PO PRN (22:57)
[2018-05-26 08:00] VITALS: BP 130/67
[2018-05-26] MEDS ORDERED: Phenazopyridine TAB* 100 MG PO PRN (08:00)
[2018-05-26] MEDS: Cholecalciferol TAB* 1000 UNITS PO SCH (08:31)
[2018-05-26] MEDS: Furosemide TAB* 40 MG PO SCH (08:31)
[2018-05-26] MEDS: Sertraline* 100 MG TAB PO SCH (08:32)
[2018-05-26] MEDS: Atorvastatin* 40 MG TAB PO SCH (08:32)
[2018-05-26] MEDS: Finasteride TAB* 5 MG PO SCH (08:32)
[2018-05-26] MEDS: Metoprolol Tartrate TAB* 25 MG PO SCH (08:32)
[2018-05-26] MEDS: Pantoprazole TAB * 40 MG TAB PO SCH (08:33)
[2018-05-26] MEDS: Aspirin EC TAB* 81 MG TAB.EC PO SCH (08:33)
[2018-05-26] MEDS: Liraglutide (NF) 18 MG/3 ML SUBCUT SCH (08:33)
[2018-05-26] MEDS ORDERED: Cephalexin CAP* 500 MG PO SCH (09:00)
--- NOTE | 2018-05-26 15:09 | PN ---
Hospitalist Progress Note Pt discharged this AM. Unfortunately Victoza is not stocked here and the local [facility] he uses would charge a $650 copay. He will need to arrange to get this medication through the [facility] and Dr. Noyola called his [facility] providers recommending this medication yesterday. He is medically stable for discharge with his reduced dose Lantus 30U daily and can go home without this medication in hand tonight. The [facility] has not returned multiple calls from Record Systems Analyst trying to arrange. He will need close follow-up with Dr. Ruano of [facility].
--- NOTE | 2018-05-27 00:55 | DS ---
DISCHARGE SUMMARY: DATE OF ADMISSION: 05/24/18 DATE OF DISCHARGE: 05/26/18 ADMITTING PROVIDER: Jhonny Guajardo MD PRIMARY CARE PROVIDER: Dr. Ruano. CONSULTING CITY SURVEYOR: Dr. Navdeep Noyola. ATTENDING PHYSICIAN ON DAY OF DISCHARGE: Dr. Guajardo. CHIEF COMPLAINT: Unresponsiveness and combativeness. PRINCIPAL DIAGNOSIS: Toxic metabolic encephalopathy in the setting of severe hypoglycemia. HISTORY OF PRESENT ILLNESS/HOSPITAL COURSE: Mr. Escamilla is an 82-year-old male with a past medical history of CVA; CAD; insulin-dependent diabetes mellitus type 2; atrial fibrillation, on Coumadin; obstructive sleep apnea; obesity hypoventilation syndrome; chronic hypoxic respiratory failure, on 3 L; and severe aortic stenosis, status post likely open repair. Please see H and P for full details, but briefly, his quality assurance monitor final and roommate, Dominic found him unresponsive and the blood sugars were reportedly either 41 or 51 depending on the source. He had some glucagon and was combative and was taken to [facility] Room. He got additional dextrose and was referred to the hospitalist service for admission. They reported that he had not been eating much and losing weight over the last several weeks in the setting of viral like upper respiratory symptoms. He has also been taking Keflex for a lower extremity wound on the right leg. He initially had leukocytosis of 13.1 and his urinalysis was suspicious for potential UTI with 3+ leukocyte esterase, 3+ wbc's , 2+ rbc's. Of note, urine culture ultimately did not grow any organisms, though not surprising in the setting of being on Keflex and he was transitioned back from ceftriaxone and back to Keflex on discharge. During the morning hours of hospital day #2, he had another combative episode where he was confused , found to have a blood sugar listed as 32, getting dextrose with improvement though this is in the setting of only giving a total of 5 lispro units in the preceding [address] Noyola, teradata architect, consulted and recommended addition of Victoza 0.6 mg daily, cessation of metformin given his overall kidney function, and reduction of his Lantus dose from 25 units b.i.d. to 30 units daily. He called his [facility] provider to discuss recommendations for Victoza. Unfortunately, the hospital does not carry Victoza and it was challenging to try to arrange it even as an outpatient. Of note, he gets all of his medications [facility] the [facility]. He was a poor historian and unfortunately, the [facility] has not yet responded to multiple requests for records to confirm such things as his medication list, what type of potential aortic valve surgery he may have had done (of note, he does have a new sternotomy and evidence of a valve repair of some sort on chest x-ray). He notably also did not know nor his [facility] nurse knew his current dose of warfarin. He has currently up to $650 co -pay for Victoza 1-month supply through a local pharmacy ([facility]) which would have been out of his means, but this was not deemed medically essential prior to his discharge (of note, he was not able to get it here while in the hospital), although must be arranged through the [facility] system. Additional studies included TSH of 1.38, cortisol of 12.6. DISCHARGE MEDICATIONS: Include (of note, not all of these are fully verified as the patient and caregivers did not know his medications and never received multiple requests from [place] system or [facility]). 1. Acetaminophen 650 mg p.o. q.4 hours p.r.n. 2. Albuterol 2 puffs inhaled q.4 hours p.r.n. 3. Aspirin 81 mg daily. 4. Atorvastatin 40 mg daily. 5. Keflex 500 mg p.o. b.i.d. 6. Cholecalciferol 1000 units p.o. daily. 7. Proscar 5 mg p.o. daily. 8. Lasix 40 mg p.o. b.i.d. 9. Guaifenesin 600 mg p.o. q.4 hours p.r.n. 10. Atarax 10 mg p.o. t.i.d. p.r.n. 11. Lantus insulin 30 units daily (decreased from 25 units b.i.d. ). 12. Victoza 0.6 mg subcu daily (new). 13. Lisinopril 5 mg daily. 14. Metoprolol tartrate 25 mg p.o. b.i.d. 15. Mometasone 2 puffs inhaled b.i.d. 16. Nystatin cream 1 application topical t.i.d. p.r.n. 17. Omeprazole 20 mg p.o. q.a.m. 18. Pyridium 100 mg p.o. t.i.d. p.r.n. 19. Sennosides 2 tablets p.o. b.i.d. p.r.n. 20. Sertraline 100 mg p.o. q.a.m. 21. Warfarin (unknown dose). The list provided was from many years ago and we have no records of what his current dose is. He is advised to restart his dose that he is on at home once caregivers can clarify what that is. 22. Ambien 5 mg p.o. at bedtime p.r.n. FOLLOWUP: The patient should follow up with Dr. Ruano within 7 days and reestablish with the [facility] services . DISCHARGE DIET: Carbohydrate consistent, heart healthy, unchanged. DISPOSITION: Home, improved. TIME SPENT: Time spent on discharge, 45 minutes. [id number]/CPS #: [id number]
== END 2018-05-26 15:46 | disposition home health service (06) | DRG 638 ==
LOC: ED 10:47 → MEDTELE 15:48 → OBSVTOIN 05-25 19:08
PROVIDERS: ADMIT Internal Medicine; ATTEND Internal Medicine
PROC: 5A09357 Assistance with Respiratory Ventilation, Less than 24 Consecutive Hours, Continuous Positive Airway Pressure (ICD-10-PCS; principal; 2018-05-24)
DX: E11.649 Type 2 diabetes mellitus with hypoglycemia without coma (principal); E66.2 Morbid (severe) obesity with alveolar hypoventilation; J96.11 Chronic respiratory failure with hypoxia; N39.0 Urinary tract infection, site not specified; G92 Toxic encephalopathy; I50.9 Heart failure, unspecified; I25.10 Atherosclerotic heart disease of native coronary artery without angina pectoris; E78.00 Pure hypercholesterolemia, unspecified; I11.0 Hypertensive heart disease with heart failure; J44.9 Chronic obstructive pulmonary disease, unspecified; K21.9 Gastro-esophageal reflux disease without esophagitis; N40.0 Benign prostatic hyperplasia without lower urinary tract symptoms; M19.90 Unspecified osteoarthritis, unspecified site; I48.0 Paroxysmal atrial fibrillation; I35.0 Nonrheumatic aortic (valve) stenosis; X58.XXXA Exposure to other specified factors, initial encounter; S91.002A Unspecified open wound, left ankle, initial encounter; S91.001A Unspecified open wound, right ankle, initial encounter; E11.36 Type 2 diabetes mellitus with diabetic cataract; H91.90 Unspecified hearing loss, unspecified ear; F41.9 Anxiety disorder, unspecified; F32.9 Major depressive disorder, single episode, unspecified; F43.10 Post-traumatic stress disorder, unspecified; Z95.1 Presence of aortocoronary bypass graft; Z86.14 Personal history of Methicillin resistant Staphylococcus aureus infection; Z82.49 Family history of ischemic heart disease and other diseases of the circulatory system; Z83.3 Family history of diabetes mellitus; Z88.1 Allergy status to other antibiotic agents; Z88.8 Allergy status to other drugs, medicaments and biological substances; Z91.041 Radiographic dye allergy status; I25.2 Old myocardial infarction; Z86.718 Personal history of other venous thrombosis and embolism; Z80.0 Family history of malignant neoplasm of digestive organs; Z99.81 Dependence on supplemental oxygen; Z97.4 Presence of external hearing-aid; Z86.73 Personal history of transient ischemic attack (TIA), and cerebral infarction without residual deficits; Z85.828 Personal history of other malignant neoplasm of skin; Y92.9 Unspecified place or not applicable; Z79.82 Long term (current) use of aspirin; Z79.01 Long term (current) use of anticoagulants; Z79.4 Long term (current) use of insulin; Z68.38 Body mass index [BMI] 38.0-38.9, adult
CPT/HCPCS: 36415; 71045; 80048; 80053; 81003; 81015; 82533; 82803; 83605; 83880; 84443; 85025; 85027; 87086; 94640; 94660; 99285; A9270-GY; G0378; J0696

== ENCOUNTER 2018-07-28 11:43 | Emergency (ER) | payer SELFPAY ==
--- NOTE | 2018-07-28 11:53 | ED ---
HPI Diabetic - HPI Summary HPI Summary: ED provider saw patient in Triage. An 82 y/o M presents to ED c/o elevated blood sugars onset this AM. Patient checked his blood sugar at home and it was 555. Associated sx: mild IRENE, diarrhea , dehydrated. Denies pain, SOB. He says he does not drink a lot of water. Patient has baseline dyspnea and is wearing O2 in triage. He did take his insulin this AM and he did eat lunch [employer]. Aid comes to his home to give him medication, told him to stop taking his laxative. - History Of Current Complaint Time Seen by Provider: 07/28/18 11:47 Hx Obtained From: Patient Onset/Duration: Still Present Timing: Constant Severity Initially: Moderate Severity Currently: Moderate Character: Alert Associated Signs & Symptoms: Diarrhea - Allergies/Home Medications Allergies/Adverse Reactions: Allergies Allergy/AdvReac Type Severity Reaction Status Date / Time nitroglycerin Allergy Severe Anaphylatic Verified 07/28/18 11:54 Shock levofloxacin Allergy Intermediate Itching Verified 07/28/18 11:54 Iodinated Contrast- Oral and AdvReac Severe Altered Verified 07/28/18 11:54 IV Dye Mental Status Home Medications: Home Medications Insulin GLARGINE(*) [Lantus(*)] 30 units SUBCUT DAILY 07/28/18 [History Confirmed 07/28/18] Liraglutide (NF) [Victoza (NF)] 0.6 mg SUBCUT DAILY 07/28/18 [History Confirmed 07/28/18] PMH/Surg Hx/FS Hx/Imm Hx Previously Healthy: No Endocrine/Hematology History: Reports: Hx Anticoagulant Therapy, Hx Blood Transfusions, Hx Diabetes, Hx Anemia Denies: Hx Blood Disorders, Hx Bone Marrow Disease, Hx Systemic Lupus Erythematosus, Hx Sickle Cell Disease, Hx Thyroid Disease, Hx Unexplained Bleeding Cardiovascular History: Reports: Hx Angina, Hx Angioplasty, Hx Cardiac Arrest - 03/05/14, Hx Congestive Heart Failure, Hx Coronary Artery Disease, Hx Deep Vein Thrombosis, Hx Hypercholesterolemia, Hx Hypertension, Hx Myocardial Infarction, Hx Syncope, Hx Valvular Heart Disease Denies: Hx Aneurysm, Hx Auto Implanted Cardiovert Defib, Hx Cardiomegaly, Hx Congenital Heart Disease, Hx Hypotension, Hx Pacemaker/ICD, Hx Peripheral Vascular Disease, Hx Rheumatic Fever, Other Cardiovascular Problems/Disorders Respiratory History: Reports: Hx Chronic Bronchitis, Hx Chronic Obstructive Pulmonary Disease (COPD), Hx Pleural Effusion, Hx Pneumonia, Hx Pulmonary Edema , Hx Sleep Apnea - CPAP, Other Respiratory Problems/Disorders - Bronchitis Denies: Hx Asthma, Hx Cystic Fibrosis, Hx Lung Cancer, Hx Pulmonary Embolism , Hx Seasonal Allergies GI History: Reports: Hx Gastroesophageal Reflux Disease, Hx Hiatal Hernia, Hx Obstructive Bowel Denies: Hx Cirrhosis, Hx Crohn's Disease, Hx Diverticulosis, Hx Gall Bladder Disease, Hx Gastrointestinal Bleed, Hx Irritable Bowel, Hx Jaundice, Hx Ileostomy, Hx Pyloric Stenosis, Hx Ulcer, Other GI Disorders History: Reports: Hx Benign Prostatic Hyperplasia, Hx Kidney Infection Denies: Hx Acute Renal Failure, Hx Chronic Renal Failure, Hx Dialysis, Hx Kidney Stones, Other Problems/Disorders Musculoskeletal History: Reports: Hx Arthritis, Hx Back Problems, Other Musculoskeletal History - BLE weakness hx CVA, uses scooter at home Denies: Hx Bursitis, Hx Congenital Bone Abnormalities, Hx Fibromyalgia, Hx Gout, Hx Orthopedic Injury, Hx Osteoporosis, Hx Scoliosis, Hx Tendonitis Sensory History: Reports: Hx Cataracts - due for sx, Hx Contacts or Glasses, Hx Vision Problem, Hx Hearing Aid - at home, Hx Hearing Problem Denies: Hx Eye Injury, Hx Eye Prosthesis, Hx Glaucoma, Hx Legally Blind, Hx Macular Degeneration, Hx Deafness, Other Sensory Impairments Opthamlomology History: Reports: Hx Cataracts - due for sx, Hx Contacts or Glasses, Hx Vision Problem Denies: Hx Eye Injury, Hx Eye Prosthesis, Hx Glaucoma, Hx Legally Blind, Hx Macular Degeneration, Other Sensory Impairments Neurological History: Reports: Hx Seizures, Hx Transient Ischemic Attacks (TIA) Denies: Hx Dementia, Hx Developmental Delay, Hx Headaches, Hx Migraine, Hx Nerve Disease, Hx Spinal Cord Injury, Other Neuro Impairments/Disorders Psychiatric History: Reports: Hx Anxiety, Hx Depression - He thinks about the of his and son often., Hx Post Traumatic Stress Disorder, Other Psychiatric Issues/Disorders - Had one episode of emotional shock, but no depression etc since. Denies: Hx Attention Deficit Hyperactivity Disorder, Hx Eating Disorder, Hx Panic Disorder, Hx Inpatient Treatment, Hx Community Mental Health Tx, Hx Schizophrenia, Hx Bipolar Disorder, Hx Suicide Attempt, Hx of Violent Episodes Against Others, Hx Substance Abuse - Cancer History Cancer Type, Location and Year: Skin cancer on scalp - Surgical History Surgery Procedure, Year, and Place: Bypass 2008. hernia 1958. left shoulder sx in [place] in 1966. CABG. 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 Negative: Abdominal Pain Negative: Arthralgia, Myalgia Positive: Headache - mild All Other Systems Reviewed And Are Negative: Yes Physical Exam - Summary Physical Exam Summary: Constitutional: Well-developed, Well-nourished, Alert. (-) Distressed Skin: Warm, Dry HENT: Normocephalic; Atraumatic. Nose has a crusted lesion. Dry oral mucosa. Eyes: Conjunctiva normal Neck: Musculoskeletal ROM normal neck. (-) JVD, (-) Stridor, (-) Tracheal deviation Cardio: Rhythm regular, rate normal, Heart sounds normal; Intact distal pulses; The pedal pulses are 2+ and symmetric. Radial pulses are 2+ and symmetric. (-) Murmur Pulmonary/Chest wall: Effort normal. (-) Respiratory distress, (-) Wheezes, (-) Rales Abd: Soft, mild suprapubic tenderness to palpation, (-) Distension, (-) Guarding , (-) Rebound Musculoskeletal: (-) Edema Lymph: (-) Cervical adenopathy Neuro: Alert, Oriented x3 Psych: Mood and affect Normal Triage Information Reviewed: Yes Vital Signs Reviewed: Yes Diagnostics - Laboratory Result Diagrams: 07/28/18 12:28 07/28/18 12:28 Lab Statement: Any lab studies that have been ordered have been reviewed, and results considered in the medical decision making process. - EKG 1207 Cardiac Rate: Bradycardia - 58 bpm EKG Rhythm: Sinus Bradycardia EKG Comparison: No Significant Change - from previous EKG on 05/15/18. Summary of EKG Findings: 1st degree AV block, prolonged VT, LBBB, prolonged QTC , ST elevated in V1, V2, V3 and III. ST depressed in I and avL. Re-Evaluation - Re-Evaluation 1 Re-Evaluation Time: 12:47 Change: Unchanged Comment: Performing PE on patient. Diabetic Course/Dx - Course Course Of Treatment: Patient is an 82 y/o M presenting with elevated POC blood sugar (555) this AM. Associated sx: mild IRENE, diarrhea, dehydrated. Denies pain, SOB. Labs show low Hgb and Hct, low platelet count. BUN: 29, creatinine: 1.33, glucose: 435, alkaline phos: 139, CRP: 8.15. VBG pCO2: 56, VBG O2 Sat: 29.5. EKG shows sinus ector with 1st degree AV block, prolonged VT, LBBB, prolonged QTC, ST elevated in V1, V2, V3 and III. ST depressed in I and avL. Unchanged from prior EKG on 05/15/18. POC glucose: 152. Patient given fluids and insulin in ED. Patient will be discharged home. - Diagnoses Provider Diagnoses: Hyperglycemia Discharge - Sign-Out/Discharge Documenting (check all that apply): Patient Departure - D/C Patient Received Moderate/Deep Sedation with Procedure: No - Discharge Plan Condition: Stable Disposition: HOME Patient Education Materials: Diabetic Hyperglycemia (ED) Print Language: MALIAN Referrals: Jeremiah Ruano MD [Primary Care Provider] - - Billing Disposition and Condition Condition: STABLE Disposition: Home - Attestation Statements Document Initiated by Marthaibyeimy: Yes Documenting Scribe: Oscar Martinez Provider For Whom Mauricio is Documenting (Include Credential): Dr. Margie Briscoe MD Scribe Attestation: Oscar Mack scribed for Dr. Margie Briscoe MD on at 1751. Scribe Documentation Reviewed: Yes Provider Attestation: The documentation as recorded by the Oscar couch accurately reflects the service I personally performed and the decisions made by me, Dr. Margie Briscoe MD Status of Scribe Document: Viewed
[2018-07-28 12:48] LABS: ABS Eosinophils 0.3 10^3/ul (0-0.6); ABS Lymphocytes 0.9 10^3/ul (1.0-4.8); ABS Monocytes 0.6 10^3/ul (0-0.8); ABS Neutrophils 5.6 10^3/ul (1.5-7.7); Eosinophil % 3.7 %; Hematocrit 40 % (42-52); Hemoglobin 13.7 g/dL (14.0-18.0); Lymphocyte % 12.5 %; Mean Corpuscular HGB Conc 34 g/dL (31-36); Mean Corpuscular Hemoglobin 28 pg (27-31); Mean Corpuscular Volume 81 fL (80-94); Mean Platelet Volume 8.6 fL (7.4-10.4); Nucleated Red Blood Cells % 0.1; Platelet Count 135 10^3/uL (150-450); Red Blood Count 4.96 10^6 /uL (4.18-5.48); Red Cell Distribution Width 14 % (10.5-15); White Blood Count 7.4 10^3/uL (3.5-10.8)
[2018-07-28] MEDS ORDERED: NS 0.9% 1000 ML** 1,000 ML IV ONE (12:51)
--- OUTSIDE RECORDS SUMMARY | 2018-07-28 12:59 | XMS REPORT | Continuity of Care Document ---
:1935 External Reference #:[id number] Author Name Miriam Coon O.D. Address [address] [facility] [place] [address] Care Team Providers Name Role Phone Jeremiah Ruano M.D. Primary Care Physician Unavailable Payers Date Identification Numbers Payment Provider Subscriber Policy Number: [id number] [id number] [place] PayID: [id number] [address] [place] [address] Advance Directives Description No Information Available Problems Active Problems Provider Date Chronic obstructive lung disease Onset: Cerebrovascular accident Onset: Hypertensive disorder Onset: Hearing loss Onset: Does use hearing aid Onset: Congestive heart failure Onset: Type 2 diabetes mellitus Onset: Depressive disorder Onset: Gastroesophageal reflux disease Onset: Vitreous degeneration Miriam Coon O.D. 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 Onset: degeneration Combined form of senile cataract Miriam Coon O.D. Onset: 07/23/2018 Family History Date Family Member(s) Observation Comments Father No Current Problems Mother No Current Problems Social History Type Date Description Comments Sex Unknown Marital Status Single Occupation [employer] Work Status Retired ETOH Use Denies alcohol use Tobacco Use Start: Unknown Patient has never smoked Recreational Drug Use Denies Drug Use Smoking Status Reviewed: 07/23/18 Patient has never smoked Allergies, Adverse Reactions, Alerts Active Allergies Reaction Severity Comments Date Levaquin 07/23/2018 Medications Active Medications SIG Qnty Indications Ordering Provider Date Omeprazole 20mg Unknown Capsules Metoprolol Succinate ER Unknown 25mg Tablets ER 24HR Hydroxyzine HCL Unknown 10mg Tablets Sertraline HCL Unknown 100mg Tablets Prednisone 20mg Unknown Tablets Cephalexin Unknown 500mg Capsules Metformin HCL Unknown 500mg Tablets Atorvastatin Calcium Unknown 20mg Tablets Zolpidem Tartrate Unknown 10mg Tablets Warfarin Sodium Unknown 3mg Tablets Sennosides Unknown 8.6mg Tablets Mometasone Furoate Unknown 50mcg/Act Suspension Lisinopril 10mg Unknown Tablets Victoza Unknown 18mg/3ML Solution Pen-Inject Insulin Lispro Unknown 100Unit/ML Solution Pen-Inject Guaifenesin Unknown 100mg/5ML Solution Furosemide 40mg Unknown Tablets Finasteride 5mg Unknown Tablets Vitamin D (Cholecalciferol) Unknown 1000Unit Capsules Aspirin 81mg Unknown Chewtabs Immunizations Description No Information Available Vital Signs Description No Information Available Results Description No Information Available Procedures Description No Information Available Encounters Description No Information Available Plan of Treatment 07/23/2018 - Miriam Coon O.D.H25.813 Combined forms of age-related cataract, [id number] Nonexudative age-related macular degeneration, bilateral, early dry [id number] Vitreous degeneration, bilateralComments:You have a Posterior Vitreous Detachment. Please read the pamphlet that was given to you. If you have any changes in your floaters or flashing lights, please contact this office.E11.9 Type 2 diabetes mellitus without complicationsComments :You have diabetes. I do not detect any changes in both of your retinas from diabetes at this time. Proper control of your diabetes is important for the health of your eyes. Changes in your eyes from diabetes can happen without symptoms, so it is important that you have your eyes examined.Follow up:6 Month Follow Up with [facility]/ or va ophth You can expect to have your eyes dilated at your next visit.If Dr. Coon orders any additional testing, it may require extra time. We recommend that you bring sunglasses, as dilation drops often make you light sensitive until they wear off. We always recommend you bring someone to drive you home if you are uncomfortable driving with your eyes dilated. If you have any questions before your next visit, feel free to call our office at .
[2018-07-28 13:05] LABS: Albumin 3.8 g/dL (3.2-5.2); Albumin/Globulin Ratio 1.4 (1-3); BUN/Creatinine Ratio 21.8 (8-20); C Reactive Protein 8.15 mg/L (<8.01); Calcium 9.4 mg/dL (8.6-10.3); EGFR African American 62.6 (>60); EGFR Non-African American 51.7 (>60); Globulin 2.8 g/dL (2-4); Potassium 3.9 mmol/L (3.5-5.0); Total Bilirubin 0.6 mg/dL (0.2-1.0); Total Protein 6.6 g/dL (6.4-8.9)
[2018-07-28] MEDS ORDERED: Insulin REGULAR(*) 1 UNITS UNIT IV PUSH ONE (14:02)
[2018-07-28 17:12] VITALS: BP 103/71
== END 2018-07-28 17:11 | disposition home or self-care (01) ==
LOC: ED 11:43
DX: E11.65 Type 2 diabetes mellitus with hyperglycemia (principal); R19.7 Diarrhea, unspecified; D64.9 Anemia, unspecified; I25.2 Old myocardial infarction; K21.9 Gastro-esophageal reflux disease without esophagitis; Z79.01 Long term (current) use of anticoagulants; Z86.73 Personal history of transient ischemic attack (TIA), and cerebral infarction without residual deficits; Z79.4 Long term (current) use of insulin; Z95.1 Presence of aortocoronary bypass graft
CPT/HCPCS: 36415; 80053; 82010; 82803; 83605; 84484; 85025; 86140; 93005; 96361; 96374; 99283

== ENCOUNTER → 2018-10-20 | Emergency (ER) | payer MEDICARE, OTHER ==
[~2018-10-20] MED LIST changes: -Albuterol 0.5% CONC NEB.SOL* 5 MG/ML 20 ml BOT INH ONE; +NS 0.9% 1000 ML** 1,000 ML IV ONE; -methylPREDNISolone 125 MG* 2 ML VIAL IV ONE
--- NOTE | 2018-10-20 12:58 | ED ---
Syncope/Near Syncope - HPI Summary HPI Summary: Time pt was seen is 1218. 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 Per the triage, the staff performing the procedure reported that the patient suddenly went limp and took 5min to arouse. He had another syncopal episode with EMS en route to the ED, which lasted only a few seconds. He also reports feeling very fatigued with a decreased appetite but denies any current pain. He has Hx of COPD, bypass surgery, DM, HTN, and seizures. - History Of Current Complaint Chief Complaint: EDSyncope Time Seen by Provider: 10/20/18 12:18 Hx Obtained From: Patient, EMS Onset/Duration: Sudden Onset, Resolved Timing: Intermittent Episode Lasting - one episode 5 minutes, one episode lasting a few seconds Context: Loss Of Consciousness Activity At Onset: Other - Clearing his ears Associated Head Trauma: No Aggravating Factor(s): Nothing Alleviating Factor(s): Nothing Associated Signs And Symptoms: Other - positive - fatigue, decreased appetite; negative - pain - Allergies/Home Medications Allergies/Adverse Reactions: Allergies Allergy/AdvReac Type Severity Reaction Status Date / Time nitroglycerin Allergy Severe Anaphylatic Verified 07/28/18 11:54 Shock levofloxacin Allergy Intermediate Itching Verified 07/28/18 11:54 Iodinated Contrast- Oral and AdvReac Severe Altered Verified 07/28/18 11:54 IV Dye Mental Status PMH/Surg Hx/FS Hx/Imm Hx Endocrine/Hematology History: Reports: Hx Anticoagulant Therapy, Hx Blood Transfusions, Hx Diabetes, Hx Anemia Denies: Hx Blood Disorders, Hx Bone Marrow Disease, Hx Systemic Lupus Erythematosus, Hx Sickle Cell Disease, Hx Thyroid Disease, Hx Unexplained Bleeding Cardiovascular History: Reports: Hx Angina, Hx Angioplasty, Hx Cardiac Arrest - 03/05/14, Hx Congestive Heart Failure, Hx Coronary Artery Disease, Hx Deep Vein Thrombosis, Hx Hypercholesterolemia, Hx Hypertension, Hx Myocardial Infarction, Hx Syncope, Hx Valvular Heart Disease Denies: Hx Aneurysm, Hx Auto Implanted Cardiovert Defib, Hx Cardiomegaly, Hx Congenital Heart Disease, Hx Hypotension, Hx Pacemaker/ICD, Hx Peripheral Vascular Disease, Hx Rheumatic Fever, Other Cardiovascular Problems/Disorders Respiratory History: Reports: Hx Chronic Bronchitis, Hx Chronic Obstructive Pulmonary Disease (COPD), Hx Pleural Effusion, Hx Pneumonia, Hx Pulmonary Edema , Hx Sleep Apnea - CPAP, Other Respiratory Problems/Disorders - Bronchitis Denies: Hx Asthma, Hx Cystic Fibrosis, Hx Lung Cancer, Hx Pulmonary Embolism , Hx Seasonal Allergies GI History: Reports: Hx Gastroesophageal Reflux Disease, Hx Hiatal Hernia, Hx Obstructive Bowel Denies: Hx Cirrhosis, Hx Crohn's Disease, Hx Diverticulosis, Hx Gall Bladder Disease, Hx Gastrointestinal Bleed, Hx Irritable Bowel, Hx Jaundice, Hx Ileostomy, Hx Pyloric Stenosis, Hx Ulcer, Other GI Disorders History: Reports: Hx Benign Prostatic Hyperplasia, Hx Kidney Infection Denies: Hx Acute Renal Failure, Hx Chronic Renal Failure, Hx Dialysis, Hx Kidney Stones, Other Problems/Disorders Musculoskeletal History: Reports: Hx Arthritis, Hx Back Problems, Other Musculoskeletal History - BLE weakness hx CVA, uses scooter at home Denies: Hx Bursitis, Hx Congenital Bone Abnormalities, Hx Fibromyalgia, Hx Gout, Hx Orthopedic Injury, Hx Osteoporosis, Hx Scoliosis, Hx Tendonitis Sensory History: Reports: Hx Cataracts - due for sx, Hx Contacts or Glasses, Hx Vision Problem, Hx Hearing Aid - at home, Hx Hearing Problem Denies: Hx Eye Injury, Hx Eye Prosthesis, Hx Glaucoma, Hx Legally Blind, Hx Macular Degeneration, Hx Deafness, Other Sensory Impairments Opthamlomology History: Reports: Hx Cataracts - due for sx, Hx Contacts or Glasses, Hx Vision Problem Denies: Hx Eye Injury, Hx Eye Prosthesis, Hx Glaucoma, Hx Legally Blind, Hx Macular Degeneration, Other Sensory Impairments Neurological History: Reports: Hx Seizures, Hx Transient Ischemic Attacks (TIA) Denies: Hx Dementia, Hx Developmental Delay, Hx Headaches, Hx Migraine, Hx Nerve Disease, Hx Spinal Cord Injury, Other Neuro Impairments/Disorders Psychiatric History: Reports: Hx Anxiety, Hx Depression - He thinks about the of his and son often., Hx Post Traumatic Stress Disorder, Other Psychiatric Issues/Disorders - Had one episode of emotional shock, but no depression etc since. Denies: Hx Attention Deficit Hyperactivity Disorder, Hx Eating Disorder, Hx Panic Disorder, Hx Inpatient Treatment, Hx Community Mental Health Tx, Hx Schizophrenia, Hx Bipolar Disorder, Hx Suicide Attempt, Hx of Violent Episodes Against Others, Hx Substance Abuse - Cancer History Cancer Type, Location and Year: Skin cancer on scalp - Surgical History Surgery Procedure, Year, and Place: Bypass 2008. hernia 1957. left shoulder sx in [place] in 1966. CABG. 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 Denies: Hx Clostridium Difficile, Hx Hepatitis, Hx Human Immunodeficiency Virus (HIV), Hx Shingles, Hx Tuberculosis, Hx Known/Suspected VRE, History Other Infectious Disease, Traveled Outside the [place] in Last 30 Days - Family History Known Family History: Positive: Cardiac Disease, Diabetes, Other - uterine CA, colon CA - Social History Alcohol Use: None Hx Substance Use: No Substance Use Type: Reports: None Hx Tobacco Use: No Smoking Status (MU): Never Smoked Tobacco Have You Smoked in the Last Year: No Review of Systems Positive: Fatigue, Other - negative - pain Positive: Other - decreased appetite Positive: Syncope - two episodes All Other Systems Reviewed And Are Negative: Yes Physical Exam - Summary Physical Exam Summary: Appearance: Elderly chronically ill-appearing male, Well-nourished, lying in bed comfortably Skin: Warm, dry, no obvious rash Eyes: sclera anicteric, no conjunctival pallor ENT: mucous membranes moist, pharynx appears normal Neck: Supple, nontender Respiratory: Clear to auscultation, no signs of respiratory distress Cardiovascular: Relative hypotension. Normal S1, S2. No murmurs. Normal distal pulses in tibial and radial bilaterally. Abdomen: Soft, nontender, normal active bowel sounds present Musculoskeletal: Normal, Strength/ROM Intact Neurological: A&Ox3, awake and alert, mentation is normal, speech is dysarthric but understandable, GCS: 15 Psychiatric: affect is normal, does not appear anxious or depressed Triage Information Reviewed: Yes Vital Signs On Initial Exam: Initial Vitals Temp Pulse Resp BP Pulse Ox 98 F 64 20 100/64 98 10/20/18 12:14 10/20/18 12:14 10/20/18 12:14 10/20/18 12:14 10/20/18 12:14 Vital Signs Reviewed: Yes - Nancy Coma Scale Best Eye Response: 4 - Spontaneous Best Motor Response: 6 - Obeys Commands Best Verbal Response: 5 - Oriented Coma Scale Total: 15 Diagnostics - Vital Signs Vital Signs Temp Pulse Resp BP Pulse Ox 10/20/18 12:14 98 F 64 20 100/64 98 - Laboratory Result Diagrams: 10/20/18 13:35 10/20/18 13:35 Lab Statement: Any lab studies that have been ordered have been reviewed, and results considered in the medical decision making process. - CT Brain CT CT Interpretation Completed By: Radiologist Summary of CT Findings: IMPRESSION: NO ACUTE INTRACRANIAL PATHOLOGY. ED Physician has reviewed this report. - EKG 1234 Cardiac Rate: NL - 62 bpm EKG Rhythm: Sinus Rhythm Summary of EKG Findings: Sinus rhythm @ 62 bpm, left bundle branch block. Re-Evaluation - Re-Evaluation First Eval Re-Evaluation Time: 14:44 Comment: I discussed discharge with the patient following Dr. Quinn's consult Course/Dx Course Of Treatment: Time pt was seen is 1218. 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 Per the triage, the staff performing the procedure reported that the patient suddenly went limp and took 5min to arouse. He had another syncopal episode with EMS en route to the ED, which lasted only a few seconds. He also reports feeling very fatigued with a decreased appetite but denies any current pain. He has Hx of COPD, bypass surgery, DM, HTN, and seizures. The physical exam was only notable for relative hypotension and dysarthric speech that is understandable. Test results normal except for Hgb @ 12.3, Hct @ 36, RDW @ 16, INR @ 2.11, BUN @ 35, Creatinine @ 1.48, BUN/Creatinine @ 23.6, Glucose @ 158, Alkaline Phosphatase @ 135. An EKG reveals Sinus rhythm @ 62 bpm, left bundle branch block. A brain CT reveals: NO ACUTE INTRACRANIAL PATHOLOGY. In the ED course the pt was given 1000 mls fluids IV. I discussed the patient's case with Dr. Quinn, hospitalist, and she believes that the patient does not warrant admission at this time as he has chronic hx of syncope for various reasons, but she will speak with the patient. After speaking with the patient, she believes the patient is clear for discharge. She reports that he may need a new antibiotic for UTI. The pt was diagnosed with syncope and UTI, discharged home, and instructed to follow up with PCP within 3 days. The pt is stable and agreeable with this plan. - Diagnoses Provider Diagnoses: UTI (urinary tract infection), Syncope - Physician Notifications Discussed Care of Patient With: Jonelle Quinn - hospitalist Time Discussed With Above Provider: 14:40 Instructed by Provider To: Other - I discussed the pt's case with Dr. Quinn, and she doesn't believe that the pt warrants admission. After speaking with the pt, Dr. Quinn reports that the patient should be discharged with a change in abx for UTI as he was previously on Keflex. Discharge - Sign-Out/Discharge Documenting (check all that apply): Patient Departure - discharge Patient Received Moderate/Deep Sedation with Procedure: No - Discharge Plan Condition: Good Disposition: HOME Prescriptions: Cefdinir cap* [Cefdinir 300 MG cap (NF)] 300 mg PO BID #10 cap Meds/Orders/Equipment: Home Care: Skilled Needs Location: None Selected Patient Education Materials: Urinary Tract Infection in Men (ED) Referrals: [facility] [Outside] - 7 Days (Nurse from [facility] will call you regarding their pallative PATH program.) Jeremiah Ruano MD [Primary Care Provider] - 1 Week Additional Instructions: Follow up with your primary care provider in one week. RETURN TO THE EMERGENCY DEPARTMENT FOR ANY NEW OR WORSENING SYMPTOMS. - Billing Disposition and Condition Condition: GOOD Disposition: Home - Attestation Statements Document Initiated by Mauricio: Yes Documenting Scribe: Yaniv Olivas Provider For Whom Mauricio is Documenting (Include Credential): Fransisco Hutchisonibyeimy Attestation: IYaniv, scribed for Fransisco Hutchison on 10/22/18 at 0442. Scribe Documentation Reviewed: Yes Provider Attestation: The documentation as recorded by the Yaniv couch accurately reflects the service I personally performed and the decisions made by Foster schafer [place] Status of Scribe Document: Viewed
[2018-10-20 13:42] LABS: ABS Eosinophils 0.2 10^3/ul (0-0.6); ABS Lymphocytes 1.2 10^3/ul (1.0-4.8); ABS Monocytes 0.6 10^3/ul (0-0.8); ABS Neutrophils 5.3 10^3/ul (1.5-7.7); Eosinophil % 2.8 %; Hematocrit 36 % (42-52); Hemoglobin 12.3 g/dL (14.0-18.0); Lymphocyte % 16.4 %; Mean Corpuscular HGB Conc 34 g/dL (31-36); Mean Corpuscular Hemoglobin 28 pg (27-31); Mean Corpuscular Volume 84 fL (80-94); Mean Platelet Volume 7.8 fL (7.4-10.4); Platelet Count 168 10^3/uL (150-450); Red Blood Count 4.32 10^6 /uL (4.18-5.48); Red Cell Distribution Width 16 % (10-15); White Blood Count 7.3 10^3/uL (3.5-10.8)
[2018-10-20 13:49] LABS: INR 2.11 (0.82-1.09)
[2018-10-20 14:05] LABS: Albumin 3.7 g/dL (3.2-5.2); Albumin/Globulin Ratio 1.2 (1-3); BUN/Creatinine Ratio 23.6 (8-20); Calcium 9.4 mg/dL (8.6-10.3); EGFR African American 55.3 (>60); EGFR Non-African American 45.7 (>60); Magnesium 2.3 mg/dL (1.9-2.7); Potassium 4.6 mmol/L (3.5-5.0); Total Bilirubin 0.6 mg/dL (0.2-1.0); Total Protein 6.7 g/dL (6.4-8.9)
[2018-10-20 14:06] LABS: Troponin I 0.02 ng/mL (<0.04)
[2018-10-20 14:25] LABS: TSH (Thyroid Stimulating Horm) 2.39 mcIU/mL (0.34-5.60)
[2018-10-20 15:17] LABS: Urine Appearance Cloudy; Urine Bacteria Absent (Absent); Urine Bilirubin Negative (Negative); Urine Blood 1+ (Negative); Urine Color Yellow; Urine Glucose Negative (Negative); Urine Ketones Negative (Negative); Urine Nitrite Negative (Negative); Urine Protein Negative (Negative); Urine Red Blood Cell 1+(3-5/hpf) (Absent); Urine Specific Gravity 1.011 (1.010-1.030); Urine Squamous Epithelial Cell Present (Absent); Urine Urobilinogen Positive (Negative); Urine White Blood Cell 3+(>20/hpf) (Absent)
[2018-10-20 15:20] VITALS: BP 107/79
--- NOTE | 2018-10-20 19:05 | CONS ---
CC: Dr. Ruano; Dr. Moody * CONSULTATION REPORT: DATE OF CONSULT: 10/20/18 REQUESTING PHYSICIAN: Dr. Moody from the emergency department. PRIMARY CARE PROVIDER: Dr. [place]. REASON FOR CONSULT: Syncope. CHIEF COMPLAINT: "I passed out again." HISTORY OF PRESENT ILLNESS: Foster Escamilla is an 82-year-old male with a history of oxygen-dependent COPD as well as obesity-hypoventilation syndrome, who has critical aortic stenosis, which as per the patient was not able to be operated on due to his overall poor clinical presentation at baseline and comorbid conditions, who presented to the hospital after a syncopal episode. The patient had a syncopal episode when he was having his ears cleaned today. The patient has history of frequent syncopal episodes and he was evaluated in the past for it including multiple syncopal episodes when he was evaluated on telemetry monitored floor with no evidence of cardiac arrhythmias. He had multiple neurologic evaluations due to that. At some point, he was diagnosed with seizures, but later on that was diagnosis was dropped. Eventually, he was diagnosed with central apnea related seizure-like episodes. Those would involve sometimes generalized tremors and left facial droop. The patient also was diagnosed with syncope/possibility of pseudoseizures in the past. The patient himself stated that he has syncopal episodes multiple times; in the past month, he had approximately 7 or 8 of them. Today's episode was not different from all the others. He usually regains consciousness and becomes responsive within minutes without any problems and residual symptoms. He never had incontinence. This time also, he had no incontinence. He was brought into the ED for evaluation of his syncopal episodes. Dr. Moody requested a consultation in regards to possibility of admission. PAST MEDICAL HISTORY: 1. History of coronary artery disease. 2. History of CVA, overall approximately 4 CVAs, with residual left-sided facial droop. 3. Diabetes type 2, brittle. 4. History of paroxysmal atrial flutter. 5. Hypertension. 6. COPD, oxygen-dependent, on 3 L. 7. History of tracheostomy in 2014 after a prolonged ICU stay with resultant tracheomalacia. 8. Obstructive sleep apnea, on BiPAP at night. 9. History of DVT, currently still on anticoagulation with Coumadin. 10. Possibility of seizure disorder as mentioned above that was questionable and he is right now not on seizure medications. 11. History of BPH. 12. History of depression. 13. History of recurrent episodes of syncope, likely central apnea related seizure- like episodes with left facial droop and generalized tremors. 14. History of bioprosthetic aortic valve replacement in [place] in 2009. 15. History of critical aortic stenosis noted at the end of 2018, for which the patient stated that he was evaluated at both [facility] as well as his cardiothoracic surgeon in [place] and he was deemed not to be a good candidate for TAVR or open valve replacement. 16. History of left bundle-branch block. 17. History of chronic kidney disease stage 3. MEDICATIONS AT HOME: Include: 1. Atarax 10 mg t.i.d. p.r.n. 2. Guaifenesin on a p.r.n. basis. 3. Ambien 5 mg at bedtime p.r.n. 4. Coumadin 6 mg on Sundays, Mondays, Wednesdays, and Fridays and 3 mg the remaining days of the week. 5. Zoloft 100 mg daily. 6. Senna 2 tablets b.i.d. p.r.n. 7. Pyridium 100 mg t.i.d. p.r.n. 8. Omeprazole 20 mg daily. 9. Nystatin cream 1 application topically t.i.d. p.r.n. 10. Asmanex 220 mcg 2 puffs inhalation b.i.d. 11. Lopressor 25 mg b.i.d. 12. Lisinopril 5 mg daily. 13. Victoza 0.6 mg subcutaneously daily. 14. Insulin glargine 30 units daily. 15. Furosemide 40 mg b.i.d. 16. Finasteride 5 mg daily. 17. Vitamin D3 at 1000 units daily. 18. Keflex 500 mg b.i.d., just started by his primary care provider for possibility of UTI. 19. Lipitor 40 mg daily. 20. Aspirin 81 mg daily. 21. Albuterol inhaler on a p.r.n. basis. 22. Acetaminophen 650 mg on a p.r.n. basis. 23. Continuous oxygen at 3 L. ALLERGIES: NITROGLYCERIN, LEVOFLOXACIN, IODINATED CONTRAST. FAMILY HISTORY: Mother with history of uterine cancer. Father with history of rectal cancer. SOCIAL HISTORY: The patient denies any current tobacco, alcohol or drug use. He lives independently with a live-in aide, Dominic. REVIEW OF SYSTEMS: Please see history of present illness. The patient stated that his chronic shortness of breath is at baseline "bad." Today, it is not worse than before. He denies any abdominal pain. He denies any chest pain. His syncopal episode was similar to prior syncopal episodes. He regained consciousness without any problems. He has no prodromal symptoms. He stated that this is likely "due to his nerves," as in the past. He has marked ambulatory dysfunction and he at baseline uses a motorized wheelchair. He has been using his oxygen at 3 L without any problems. All the remaining 12 systems were reviewed with the patient and were, otherwise, negative. Please note that the patient has chronic left-sided facial droop that started after his CVA in 2014. He is a rather poor historian. PHYSICAL EXAM: Blood pressure of 107/79, heart rate of 67 and regular, respiratory rate 20, oxygen saturation 95% on 3 L of oxygen via nasal cannula, temperature of 98.0. General: The patient is a very pleasant 82-year-old male who is in no acute distress. The patient is alert and oriented x2. He remembers the year, but he thinks the month is October. HEENT: Head: Atraumatic, normocephalic. Eyes: Pupils are equal, reactive to light and accommodation. Oropharynx is clear. Mucosa moist. Neck: Supple. No JVD. No bruits bilaterally. Cardiovascular: Regular rate and rhythm with 3/6 systolic ejection murmur noted on auscultation of the right upper sternal border radiating to the bilateral carotids. Respiratory: Distant breath sounds bilaterally with no wheezes appreciated. Abdomen: Soft, nontender. Bowel sounds are present in all 4 quadrants. Extremities: There is no edema. Pulses are +2 bilaterally. There is no clubbing or cyanosis. On neuro evaluation, the patient has chronic left-sided facial droop, which is unchanged from prior. Mildly dysarthric speech, which is also his baseline. DIAGNOSTIC STUDIES/LAB DATA: Laboratory data showed white blood cell count of 7.3, hemoglobin of 12.3, hematocrit of 36, and platelets of 168. Sodium was 142, potassium 4.6, chloride 106, carbon dioxide 31, BUN 35, creatinine 1.48. Liver function tests were unremarkable. Glucose of 158. Please note that apart from unremarkable ALT and AST, the patient's alkaline phosphatase is chronically elevated and today was 135. Troponin was 0.02. The patient's EKG showed chronic left bundle-branch block, which is unchanged. Brain CT, impression: "No acute intracranial pathology." The patient's urinalysis is positive for urobilinogen and esterase, negative for nitrites, positive for wbc's and rbc's, but absent bacteria. ASSESSMENT AND PLAN: An 82-year-old male with history of recurrent syncope who presents with another episode of syncope. The patient's syncope is chronic and recurrent. He had multiple evaluations for it without any determination of his problem or alleviation of his condition. It may have been central apnea related , although the patient also was told that in the past it could have been psychogenic/pseudoseizures. At this point, the patient also has a history of critical aortic stenosis that he is not a candidate for repair of and he may have syncopal episodes due to that. I had a brief discussion with the patient in regards to that. Although he has a do not resuscitate order in the computer , he wishes to be a full code. On second thought, he does not want to be "kept on machines" and he is aware of this that his heart cannot be operated on anymore and eventually, his valve will "close off." At this point, he is considering do not resuscitate. I am going to talk with our adoption social worker to sign the patient up for a palliative care program to visit the patient at home. At this point, I do not believe that another hospitalization for his recurrent problem would be beneficial for this patient, who likely has a terminal condition in regards to his severe aortic valve stenosis. The patient is going to be discharged home, which he is happy about. Please note that the case is going to be discussed with Dr. Moody and the patient is going to be discharged from the ED. TIME SPENT: Approximately 65 minutes were spent on consultation of this patient , more than half that time was spent [id number] with the patient during the interview and physical exam. [id number]/[facility] #: [id number] [place]
== END | disposition home or self-care (01) ==
LOC: ED 12:08
DX: R55 Syncope and collapse (principal); N39.0 Urinary tract infection, site not specified; Z88.8 Allergy status to other drugs, medicaments and biological substances; Z88.1 Allergy status to other antibiotic agents; Z91.041 Radiographic dye allergy status; E11.9 Type 2 diabetes mellitus without complications; D64.9 Anemia, unspecified; I25.119 Atherosclerotic heart disease of native coronary artery with unspecified angina pectoris; I50.9 Heart failure, unspecified; I11.0 Hypertensive heart disease with heart failure; E78.00 Pure hypercholesterolemia, unspecified; J44.9 Chronic obstructive pulmonary disease, unspecified; J90 Pleural effusion, not elsewhere classified; K21.9 Gastro-esophageal reflux disease without esophagitis; Z79.899 Other long term (current) drug therapy
CPT/HCPCS: 36415; 70450; 80053; 81003; 81015; 83605; 83735; 84443; 84484; 85025; 85610; 87086; 93005; 96360; 96361; 99283

== ENCOUNTER 2018-12-13 15:28 | Emergency (ER) | payer OTHER ==
--- NOTE | 2018-12-13 17:17 | ED ---
GI/ HPI - HPI Summary HPI Summary: 83 year old male presents with urinary tract symptoms for past couple weeks. He states he had a culture done outpatient and they told him to come to ER for treatment. He denies any fevers. He denies any flank pain. He denies any chest pressures or shortness breath. He admits to dizziness occasionally but none currently. He is chronically on O2. Has history of COPD. He admits to incontinence. no rash. states it desouza when he pees. has history of uti. no history of kidney stones. no abdominal pain. no nausea or vomiting. no diarrhea or constipation. - History of Current Complaint Chief Complaint: EDUrogenitalProblems Time Seen by Provider: 12/13/18 16:43 Stated Complaint: UNABLE TO URINATE PER PT Pain Intensity: 2 - Additional Pertinent History Primary Care Physician: [id number] - Allergy/Home Medications Allergies/Adverse Reactions: Allergies Allergy/AdvReac Type Severity Reaction Status Date / Time nitroglycerin Allergy Severe Anaphylatic Verified 12/13/18 15:57 Shock levofloxacin Allergy Intermediate Itching Verified 12/13/18 15:57 Iodinated Contrast Media AdvReac Severe Altered Verified 12/13/18 15:57 [Iodinated Contrast- Oral Mental and IV Dye] Status PMH/Surg Hx/FS Hx/Imm Hx Endocrine/Hematology History: Reports: Hx Anticoagulant Therapy, Hx Blood Transfusions, Hx Diabetes, Hx Anemia Denies: Hx Blood Disorders, Hx Bone Marrow Disease, Hx Systemic Lupus Erythematosus, Hx Sickle Cell Disease, Hx Thyroid Disease, Hx Unexplained Bleeding Cardiovascular History: Reports: Hx Angina, Hx Angioplasty, Hx Cardiac Arrest - 03/05/14, Hx Congestive Heart Failure, Hx Coronary Artery Disease, Hx Deep Vein Thrombosis, Hx Hypercholesterolemia, Hx Hypertension, Hx Myocardial Infarction, Hx Syncope, Hx Valvular Heart Disease Denies: Hx Aneurysm, Hx Auto Implanted Cardiovert Defib, Hx Cardiomegaly, Hx Congenital Heart Disease, Hx Hypotension, Hx Pacemaker/ICD, Hx Peripheral Vascular Disease, Hx Rheumatic Fever, Other Cardiovascular Problems/Disorders Respiratory History: Reports: Hx Chronic Bronchitis, Hx Chronic Obstructive Pulmonary Disease (COPD), Hx Pleural Effusion, Hx Pneumonia, Hx Pulmonary Edema , Hx Sleep Apnea - CPAP, Other Respiratory Problems/Disorders - Bronchitis Denies: Hx Asthma, Hx Cystic Fibrosis, Hx Lung Cancer, Hx Pulmonary Embolism , Hx Seasonal Allergies GI History: Reports: Hx Gastroesophageal Reflux Disease, Hx Hiatal Hernia, Hx Obstructive Bowel Denies: Hx Cirrhosis, Hx Crohn's Disease, Hx Diverticulosis, Hx Gall Bladder Disease, Hx Gastrointestinal Bleed, Hx Irritable Bowel, Hx Jaundice, Hx Ileostomy, Hx Pyloric Stenosis, Hx Ulcer, Other GI Disorders History: Reports: Hx Benign Prostatic Hyperplasia, Hx Kidney Infection Denies: Hx Acute Renal Failure, Hx Chronic Renal Failure, Hx Dialysis, Hx Kidney Stones, Other Problems/Disorders Musculoskeletal History: Reports: Hx Arthritis, Hx Back Problems, Other Musculoskeletal History - BLE weakness hx CVA, uses scooter at home Denies: Hx Bursitis, Hx Congenital Bone Abnormalities, Hx Fibromyalgia, Hx Gout, Hx Orthopedic Injury, Hx Osteoporosis, Hx Scoliosis, Hx Tendonitis Sensory History: Reports: Hx Cataracts - due for sx, Hx Contacts or Glasses, Hx Vision Problem, Hx Hearing Aid - at home, Hx Hearing Problem Denies: Hx Eye Injury, Hx Eye Prosthesis, Hx Glaucoma, Hx Legally Blind, Hx Macular Degeneration, Hx Deafness, Other Sensory Impairments Opthamlomology History: Reports: Hx Cataracts - due for sx, Hx Contacts or Glasses, Hx Vision Problem Denies: Hx Eye Injury, Hx Eye Prosthesis, Hx Glaucoma, Hx Legally Blind, Hx Macular Degeneration, Other Sensory Impairments Neurological History: Reports: Hx Seizures, Hx Transient Ischemic Attacks (TIA) Denies: Hx Dementia, Hx Developmental Delay, Hx Headaches, Hx Migraine, Hx Nerve Disease, Hx Spinal Cord Injury, Other Neuro Impairments/Disorders Psychiatric History: Reports: Hx Anxiety, Hx Depression - He thinks about the of his and son often., Hx Post Traumatic Stress Disorder, Other Psychiatric Issues/Disorders - Had one episode of emotional shock, but no depression etc since. Denies: Hx Attention Deficit Hyperactivity Disorder, Hx Eating Disorder, Hx Panic Disorder, Hx Inpatient Treatment, Hx Community Mental Health Tx, Hx Schizophrenia, Hx Bipolar Disorder, Hx Suicide Attempt, Hx of Violent Episodes Against Others, Hx Substance Abuse - Cancer History Cancer Type, Location and Year: Skin cancer on scalp - Surgical History Surgery Procedure, Year, and Place: Bypass 2008. hernia 1957. left shoulder sx in [place] in 1965. CABG. 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 Denies: Hx Clostridium Difficile, Hx Hepatitis, Hx Human Immunodeficiency Virus (HIV), Hx Shingles, Hx Tuberculosis, Hx Known/Suspected VRE, History Other Infectious Disease, Traveled Outside the [place] in Last 30 Days - Family History Known Family History: Positive: Cardiac Disease, Diabetes, Other - uterine CA, colon CA - Social History Alcohol Use: None Hx Substance Use: No Substance Use Type: Reports: None Hx Tobacco Use: No Smoking Status (MU): Never Smoked Tobacco Have You Smoked in the Last Year: No Review of Systems Negative: Fever Negative: Chest Pain Negative: Shortness Of Breath Positive: dysuria Neurological: Other - dizziness All Other Systems Reviewed And Are Negative: Yes Physical Exam Triage Information Reviewed: Yes Vital Signs On Initial Exam: Initial Vitals Temp Pulse Resp BP Pulse Ox 97.6 F 59 18 97/42 95 12/13/18 15:51 12/13/18 15:51 12/13/18 15:51 12/13/18 15:51 12/13/18 15:51 Vital Signs Reviewed: Yes Appearance: Positive: Well-Appearing Skin: Positive: Warm, Dry Head/Face: Positive: Normal Head/Face Inspection Eyes: Positive: Normal, Conjunctiva Clear ENT: Positive: Pharynx normal Respiratory/Lung Sounds: Positive: Clear to Auscultation, Breath Sounds Present Cardiovascular: Positive: Normal, RRR Abdomen Description: Positive: Nontender, Soft, CVA Tenderness (R), CVA Tenderness (L) Bowel Sounds: Positive: Present Musculoskeletal: Positive: Normal Neurological: Positive: Normal Psychiatric: Positive: Normal Diagnostics - Vital Signs Vital Signs Temp Pulse Resp BP Pulse Ox 12/13/18 16:57 61 19 98 12/13/18 16:41 61 21 113/64 97 12/13/18 15:51 97.6 F 59 18 97/42 95 - Laboratory Result Diagrams: 12/13/18 17:18 12/13/18 17:18 Lab Statement: Any lab studies that have been ordered have been reviewed, and results considered in the medical decision making process. - CT abd CT Interpretation Completed By: Radiologist Summary of CT Findings: IMPRESSION: 1. There is colonic diverticulosis without evidence for acute diverticulitis. 2. There is a Carney catheter in the urinary bladder and there is urinary bladder wall thickening may be partly related to minimal urine volume but cannot exclude cystitis. 3. No visible renal, ureteral or bladder calculi. 4. There may be cholelithiasis without pericholecystic inflammatory change. - EKG No standard instances Cardiac Rate: NL EKG Rhythm: Sinus Rhythm Summary of EKG Findings: sinus rhythm, lbbb GIGU Course/Dx - Course Course Of Treatment: 83 year old male presents with urinary tract symptoms for past couple weeks. He states he had a culture done outpatient and they told him to come to ER for treatment. He denies any fevers. He denies any flank pain. He denies any chest pressures or shortness breath. He admits to dizziness occasionally but none currently. He is chronically on O2. Has history of COPD. He admits to incontinence. no rash. states it desouza when he pees. has history of uti. no history of kidney stones. no abdominal pain. no nausea or vomiting. no diarrhea or constipation on exam tenderness suprapubic. no CVA tenderness. previous urine culture shows héctor glabrata from 11/30. fungal culture pending. we do not have ID on. wbc normal. CT no acute findings. discussed case with ID in [facility] and they suggest fluconazole 200mg day 1, 100mg day 2-7. will have follow up with ID. urine still shows uti so will also place on augmentin to coverage for bacterial pathogen while wait for final culture. patient understand and agrees with plan. - Diagnoses Differential Diagnoses - Male: Pyelonephritis, Ureteral Calculi, Urinary Tract Infection Provider Diagnoses: UTI (urinary tract infection) Discharge ED - Sign-Out/Discharge Documenting (check all that apply): Patient Departure Patient Received Moderate/Deep Sedation with Procedure: No - Discharge Plan Condition: Good Disposition: HOME Prescriptions: Amoxicillin/Clavulanate TAB* [Augmentin TAB 500 mg*] 500 mg PO BID #9 tab Fluconazole 100 MG TAB* [Diflucan 100 MG TAB*] 100 mg PO DAILY #6 tab Patient Education Materials: Urinary Tract Infection in Men (ED) Referrals: Jeremiah Ruano MD [Primary Care Provider] - Sandra PASTOR,Alexandro Pete [Medical Doctor] - Additional Instructions: take fluconzaole once a day for 6 days take augmentin twice a day for 5 days your inr may increase, you need to have it checked this week follow up with infectious disease Return to ED if develop any new or worsening symptoms - Billing Disposition and Condition Condition: GOOD Disposition: Home
[2018-12-13 17:30] LABS: ABS Eosinophils 0.3 10^3/ul (0-0.6); ABS Lymphocytes 1.3 10^3/ul (1.0-4.8); ABS Monocytes 0.7 10^3/ul (0-0.8); ABS Neutrophils 5.4 10^3/ul (1.5-7.7); Eosinophil % 4.2 %; Hematocrit 37 % (42-52); Hemoglobin 12.5 g/dL (14.0-18.0); Mean Corpuscular HGB Conc 34 g/dL (31-36); Mean Corpuscular Hemoglobin 28 pg (27-31); Mean Corpuscular Volume 84 fL (80-94); Mean Platelet Volume 7.2 fL (7.4-10.4); Platelet Count 210 10^3/uL (150-450); Red Cell Distribution Width 14 % (10-15); White Blood Count 7.8 10^3/uL (3.5-10.8)
[2018-12-13 17:38] LABS: Urine Appearance Cloudy; Urine Bacteria Absent (Absent); Urine Bilirubin Negative (Negative); Urine Blood 2+ (Negative); Urine Color Yellow; Urine Glucose Negative (Negative); Urine Ketones Negative (Negative); Urine Nitrite Negative (Negative); Urine Protein Negative (Negative); Urine Red Blood Cell 3+(>10/hpf) (Absent); Urine Specific Gravity 1.009 (1.010-1.030); Urine Squamous Epithelial Cell Present (Absent); Urine Urobilinogen Negative (Negative); Urine White Blood Cell 3+(>20/hpf) (Absent)
[2018-12-13 17:49] LABS: Troponin I 0.02 ng/mL (<0.04)
[2018-12-13 17:50] LABS: Albumin 3.6 g/dL (3.2-5.2); Albumin/Globulin Ratio 1.1 (1-3); BUN/Creatinine Ratio 18.4 (8-20); Calcium 9.4 mg/dL (8.6-10.3); EGFR African American 42.7 (>60); EGFR Non-African American 35.3 (>60); Globulin 3.3 g/dL (2-4); Magnesium 2.2 mg/dL (1.9-2.7); Potassium 4.9 mmol/L (3.5-5.0); Total Bilirubin 0.5 mg/dL (0.2-1.0); Total Protein 6.9 g/dL (6.4-8.9)
[2018-12-13 18:25] LABS: TSH (Thyroid Stimulating Horm) 2.24 mcIU/mL (0.34-5.60)
[2018-12-13] MEDS ORDERED: Fluconazole 200 MG IVPREMIX(*) 200 MG/100 ML BAG IVPB SCH (21:00)
[2018-12-13] MEDS ORDERED: Amoxicillin/Clavulanate TAB* 500 MG PO ONE (21:34)
[2018-12-13 22:07] VITALS: BP 103/46
== END 2018-12-13 22:06 | disposition home or self-care (01) ==
LOC: ED 15:28
DX: N39.0 Urinary tract infection, site not specified (principal); J44.9 Chronic obstructive pulmonary disease, unspecified; Z99.81 Dependence on supplemental oxygen; E11.9 Type 2 diabetes mellitus without complications; D64.9 Anemia, unspecified; I11.0 Hypertensive heart disease with heart failure; I50.9 Heart failure, unspecified; I25.10 Atherosclerotic heart disease of native coronary artery without angina pectoris; Z86.74 Personal history of sudden cardiac arrest; I25.2 Old myocardial infarction; K21.9 Gastro-esophageal reflux disease without esophagitis; N40.0 Benign prostatic hyperplasia without lower urinary tract symptoms; F41.9 Anxiety disorder, unspecified; F32.9 Major depressive disorder, single episode, unspecified; F43.10 Post-traumatic stress disorder, unspecified; Z85.89 Personal history of malignant neoplasm of other organs and systems; Z95.1 Presence of aortocoronary bypass graft; K57.30 Diverticulosis of large intestine without perforation or abscess without bleeding; Z88.8 Allergy status to other drugs, medicaments and biological substances; Z88.1 Allergy status to other antibiotic agents; Z91.041 Radiographic dye allergy status; Z79.01 Long term (current) use of anticoagulants; Z79.4 Long term (current) use of insulin; Z79.899 Other long term (current) drug therapy
CPT/HCPCS: 36415; 74176; 80053; 81003; 81015; 83605; 83735; 84443; 84484; 85025; 87040; 87086; 93005; 96365; 96366; 99283; A9270-GY; J1450

== ENCOUNTER 2018-12-30 10:48 | Inpatient (IN) | payer MEDICARE ==
[~2018-12-30 10:48] MED LIST changes: +Morphine INJ* 4 MG/ML 1 ML SYRINGE (NEW SYRINGE VERSION) IV ONE; -NS 0.9% 1000 ML** 1,000 ML IV ONE
--- NOTE | 2018-12-30 11:08 | ED ---
Shortness of Breath - HPI Summary HPI Summary: Patient is a 83 y/o M w/ Hx of AR, CHF, heart value replacement, HTN, HLD, PNA, COPD, diabetes and skin cancer who presents to [facility] via EMS with chief complaint of SOB, increased work of breathing. Patient reports that Sx onset six days ago, 12/24/18, home health aide had reported to EMS that the patient has had increased work of breathing and generalized weakness over the past few days, noting that he has been unable to get out of bed. EMS reported that the patient had o2 sat of low 80s on RA when they were transferring him to stretcher. They additionally states that the patient has had no wheezing, only increased work of breathing. Cough is denied. EMS had reported that the patient had complaints of chest pain, in the room patient states that he has minimal chest pain at present. Nitroglycerin allergy noted on medical records. Patient was being treated with antibiotics for UTI over the past week and states that he finished his antibiotics course this morning. However, per medical records, it is shown that the patient was placed on Augmentin, 500 BID, 12/13/18, for five days. He also states that he has broken toes of left foot. When sock was taken off, blue, left fifth toe is noted. He states that he was evaluated at wound clinic two weeks ago and was told that his foot was "fine". He additionally notes that the scabbed abrasion of his right frontal head is cancerous. Patient states that this is being treated topically. Patient has an abrasion on tip of nose as well, but is unsure if this is cancerous. Patient states that he took his insulin this morning but did not have any food to eat. He states that he has not been eating due to decreased appetite. EMS BG was 224. Patient's metal cross was taken off his neck and placed in patient's pouch , outside pocket. Home medications and allergies are reviewed. Allergies Allergy/AdvReac Type Severity Reaction Status Date / Time nitroglycerin Allergy Severe Anaphylatic Verified 12/13/18 15:57 Shock levofloxacin Allergy Intermediate Itching Verified 12/13/18 15:57 Iodinated Contrast Media AdvReac Severe Altered Verified 12/13/18 15:57 [Iodinated Contrast- Oral Mental and IV Dye] Status - History of Current Complaint Hx Obtained From: Patient, EMS, Medical Records Onset/Duration: Lasting Days, Still Present Timing: Constant Current Severity: Mild - chest pain is characterized as minimal Dyspnea At: Rest Aggravating Factors: Movement Alleviating Factors: Oxygen Associated Signs & Symptoms: Chest Pain Unrelated to Cough - Allergy/Home Medications Allergies/Adverse Reactions: Allergies Allergy/AdvReac Type Severity Reaction Status Date / Time nitroglycerin Allergy Severe Anaphylatic Verified 12/30/18 11:19 Shock levofloxacin Allergy Intermediate Itching Verified 12/30/18 11:19 Iodinated Contrast Media AdvReac Severe Altered Verified 12/30/18 11:19 [Iodinated Contrast- Oral Mental and IV Dye] Status Home Medications: Home Medications Carbamide Peroxide 6.5% OTIC* [DEBROX 6.5% Otic*] 5 drop BOTH EARS BID 12/30/18 [History Confirmed 12/30/18] Carboxymethylcellulos 1% OPTH* [Celluvisc 1% OPTH*] 1 drop BOTH EYES Q2HR [History Confirmed 12/30/18] PMH/Surg Hx/FS Hx/Imm Hx Endocrine/Hematology History: Reports: Hx Anticoagulant Therapy, Hx Blood Transfusions, Hx Diabetes, Hx Anemia Denies: Hx Blood Disorders, Hx Bone Marrow Disease, Hx Systemic Lupus Erythematosus, Hx Sickle Cell Disease, Hx Thyroid Disease, Hx Unexplained Bleeding Cardiovascular History: Reports: Hx Angina, Hx Angioplasty, Hx Cardiac Arrest - 03/05/14, Hx Congestive Heart Failure, Hx Coronary Artery Disease, Hx Deep Vein Thrombosis, Hx Hypercholesterolemia, Hx Hypertension, Hx Myocardial Infarction, Hx Syncope, Hx Valvular Heart Disease Denies: Hx Aneurysm, Hx Auto Implanted Cardiovert Defib, Hx Cardiomegaly, Hx Congenital Heart Disease, Hx Hypotension, Hx Pacemaker/ICD, Hx Peripheral Vascular Disease, Hx Rheumatic Fever, Other Cardiovascular Problems/Disorders Respiratory History: Reports: Hx Chronic Bronchitis, Hx Chronic Obstructive Pulmonary Disease (COPD), Hx Pleural Effusion, Hx Pneumonia, Hx Pulmonary Edema , Hx Sleep Apnea - CPAP Denies: Hx Asthma, Hx Cystic Fibrosis, Hx Lung Cancer, Hx Pulmonary Embolism , Hx Seasonal Allergies GI History: Reports: Hx Gastroesophageal Reflux Disease, Hx Hiatal Hernia, Hx Obstructive Bowel Denies: Hx Cirrhosis, Hx Crohn's Disease, Hx Diverticulosis, Hx Gall Bladder Disease, Hx Gastrointestinal Bleed, Hx Irritable Bowel, Hx Jaundice, Hx Ileostomy, Hx Pyloric Stenosis, Hx Ulcer, Other GI Disorders History: Reports: Hx Benign Prostatic Hyperplasia, Hx Kidney Infection Denies: Hx Acute Renal Failure, Hx Chronic Renal Failure, Hx Dialysis, Hx Kidney Stones, Other Problems/Disorders Musculoskeletal History: Reports: Hx Arthritis, Hx Back Problems, Other Musculoskeletal History - BLE weakness hx CVA, uses scooter at home Denies: Hx Bursitis, Hx Congenital Bone Abnormalities, Hx Fibromyalgia, Hx Gout, Hx Orthopedic Injury, Hx Osteoporosis, Hx Scoliosis, Hx Tendonitis Sensory History: Reports: Hx Cataracts - due for sx, Hx Contacts or Glasses, Hx Hearing Aid - at home, Hx Hearing Problem Denies: Hx Eye Injury, Hx Eye Prosthesis, Hx Glaucoma, Hx Legally Blind, Hx Macular Degeneration, Hx Deafness, Other Sensory Impairments Opthamlomology History: Reports: Hx Cataracts - due for sx, Hx Contacts or Glasses Denies: Hx Eye Injury, Hx Eye Prosthesis, Hx Glaucoma, Hx Legally Blind, Hx Macular Degeneration, Other Sensory Impairments Neurological History: Reports: Hx CVA, Hx Seizures, Hx Transient Ischemic Attacks (TIA) Denies: Hx Dementia, Hx Developmental Delay, Hx Headaches, Hx Migraine, Hx Nerve Disease, Hx Spinal Cord Injury, Other Neuro Impairments/Disorders Psychiatric History: Reports: Hx Anxiety, Hx Depression - He thinks about the of his and son often., Hx Post Traumatic Stress Disorder Denies: Hx Attention Deficit Hyperactivity Disorder, Hx Eating Disorder, Hx Panic Disorder, Hx Inpatient Treatment, Hx Community Mental Health Tx, Hx Schizophrenia, Hx Bipolar Disorder, Hx Suicide Attempt, Hx of Violent Episodes Against Others, Hx Substance Abuse - Cancer History Cancer Type, Location and Year: Skin cancer on scalp - Surgical History Surgery Procedure, Year, and Place: Bypass 2008. hernia 1957. left shoulder sx in [place] in 1965. CABG. 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 Negative: Cough Gastrointestinal: Other - positive - decreased appetite Positive: no symptoms reported Musculoskeletal: Other - positive - left fifth toe is blue, reported broken toes of left foot Skin: Other - positive - cancerous scabbed abrasion of left frontal head, blue discoloration of toe with macerated skin Neurological: Negative Psychological: Normal All Other Systems Reviewed And Are Negative: Yes Physical Exam - Summary Physical Exam Summary: Appearance: Ill-appearing, moderate pain distress, well-nourished; cannot hold himself up, wants to lie back after four breaths. Skin: Warm, color reflects adequate perfusion, dry; midline scar from sternal notch to mid abdomen, there is no umbilicus; scabbed abrasion of the right frontal head area and tip of nose, left fifth toe blue discoloration, draining, macerated tissue Head: Normal Head/Face inspection, atraumatic Eyes: Conjunctiva clear ENT: Missing multiple teeth, top is edentulous; dry oral mucous Neck: Supple, no nodes, no JVD Respiratory: Decreased breath sounds throughout, abdominal breathing Cardio: RRR, II/ systolic murmur pulses normal, brisk capillary refill Abdomen: Soft, nontender Bowel sounds: Present Musculoskeletal: Muscle wasting; Fungal toenails; left fifth toe is blue, macerated, foul smelling, tender on palpation; no calf tenderness, no edema. Psychological: Normal Neuro: Alert, muscle tone decreased, no focal deficit Triage Information Reviewed: Yes Vital Signs On Initial Exam: Initial Vitals Temp Pulse Resp BP Pulse Ox 98.1 F 85 20 112/94 94 12/30/18 11:09 12/30/18 11:09 12/30/18 11:09 12/30/18 11:09 12/30/18 11:09 Vital Signs Reviewed: Yes Procedures - Sedation Patient Received Moderate/Deep Sedation with Procedure: No Diagnostics - Laboratory Result Diagrams: 01/08/19 10:00 01/08/19 10:00 Lab Statement: Any lab studies that have been ordered have been reviewed, and results considered in the medical decision making process. - Radiology CXR Radiology Interpretation Completed By: Radiologist Summary of Radiographic Findings: CXR IMPRESSION: 1. Similar bibasilar airspace opacification could be related atelectasis or infiltrate in. the correct clinical context. 2. Chronic elevation of the right hemidiaphragm. 3. Stable enlarged cardiac mediastinal silhouette status post valve placement. THIS REPORT WAS REVIEWED BY DR. ESTRADA. LEFT FIFTH TOE X-RAY Radiology Interpretation Completed By: Radiologist Summary of Radiographic Findings: LEFT FIFTH TOE X-RAY IMPRESSION: 1. No definite destructive osseous changes (radiograph is insensitive to acute. osteomyelitis). 2. Extensive vascular calcifications. THIS REPORT WAS REVIEWED BY DR. ESTRADA. - CT LOWER LEFT EXTREMITY CT CT Interpretation Completed By: Radiologist Summary of CT Findings: LOWER LEFT EXTREMITY CT IMPRESSION: Soft tissue swelling at the dorsum of the third and fourth metatarsals with. areas of low density which may represent small fluid pockets. No abnormal erosions are. noted. Extensive atherosclerosis is noted. THIS REPORT WAS REVIEWED BY DR. ESTRADA. - EKG 1055 Cardiac Rate: Other Rate - afib with rate of 76 BPM EKG Rhythm: Atrial Fibrillation ST Segment: Non-Specific Ectopy: None EKG Comparison: No Significant Change - compared to EKG from 12/13/18 Summary of EKG Findings: EKG showed afib with rate of 76 BPM, LBBB, prolonged QTc (525) and left axis deviation (-37). No acute changes, compared to 12/13/18 EKG, no changes. This EKG was reviewed and interpreted by Dr. Estrada. Re-Evaluation - Re-Evaluation First Eval Re-Evaluation Time: 11:45 Change: Improved Comment: States he still weak. Still with abdominal breathing. O2 sats 92% on 3 L. Course/Dx - Course Course Of Treatment: Patient is a 83 y/o M w/ Hx of AR, CHF, heart value replacement, HTN, HLD, PNA, COPD, diabetes and skin cancer who presents to [facility] via EMS with chief complaint of SOB, increased work of breathing. Patient reports that Sx onset six days ago, 12/24/18, home health aide had reported to EMS that the patient has had increased work of breathing and generalized weakness over the past few days, noting that he has been unable to get out of bed. EMS reported that the patient had o2 sat of low 80s on RA when they were transferring him to stretcher. They additionally states that the patient has had no wheezing, only increased work of breathing. Cough is denied. EMS had reported that the patient had complaints of chest pain, in the room patient states that he has minimal chest pain at present. Nitroglycerin allergy noted on medical records. Patient was being treated with antibiotics for UTI over the past week and states that he finished his antibiotics course this morning. He also states that he has broken toes of left foot. When sock was taken off, blue , left fifth toe is noted. Bloodwork was obtained. Abnormal values include Hgb 12.9, Hct 38, absolute neuts 8, absolute lymphs 0.9, absolute monos 0.9, INR 7.2 , BUN 51, creatinine 1.64, BUN/creatinine ratio 31.1, glucose 168, alk phos 124 , CRP 99.2, BNP 590, albumin/globulin 0.9. Trop is 0.01, CK-MB was 31, lactic 0.9, D-dimer < 200. UA showed 1+ blood, 3+ leukocyte esterase, 3+ WBC, 1+ RBC, squamous epith cells present. EKG showed afib with rate of 76 BPM, LBBB, prolonged QTc (525) and left axis deviation (-37). No acute changes, compared to 12/13/18 EKG, no changes. LEFT FIFTH TOE X-RAY IMPRESSION: 1. No definite destructive osseous changes (radiograph is insensitive to acute. osteomyelitis) . 2. Extensive vascular calcifications. CXR IMPRESSION: 1. Similar bibasilar airspace opacification could be related atelectasis or infiltrate in. the correct clinical context. 2. Chronic elevation of the right hemidiaphragm. 3. Stable enlarged cardiac mediastinal silhouette status post valve placement. LOWER LEFT EXTREMITY CT IMPRESSION: Soft tissue swelling at the dorsum of the third and fourth metatarsals with. areas of low density which may represent small fluid pockets. No abnormal erosions are. noted. Extensive atherosclerosis is noted. During ED course, patient received 2 L NS, solu-medrol 125 mg IV, ceftriaxone sodium 1 gm in sodium chloride, 50 mls @ 100 mls/hr IVPB ED ONCE ONE, Zithromax 500 mg in 250 mls @ 250 mls/hr IVPB ED ONCE ONE and albuterol 2.5 mg INH ED ONCE ONE. for COPD exacerbation, possible pneumonia. Re-evaluation at 1145, patient states he is still weak. He is still with abdominal breathing. O2 sats 92% on 3 L. Patient's case was discussed with Dr. Anand. 1411 - Patient's case was discussed with Dr. Anand, Dr. Anand accepts for admission. Pt will need ortho consult and wound/ID consult regarding his left 5th toe and foot. - Diagnoses Differential Diagnosis/HQI/PQRI: Positive: CHF, COPD Exacerbation, Pneumonia, Pulmonary Edema, Other - gangrene, sepsis, cellulitis, SBE Provider Diagnoses: COPD exacerbation, PNA (pneumonia), Toe necrosis, UTI (urinary tract infection) , Afib, Supratherapeutic INR, Severe aortic stenosis, Acute and chronic respiratory failure with hypoxia - Physician Notifications Discussed Care of Patient With: Chayito Anand Time Discussed With Above Provider: 14:11 Instructed by Provider To: Other - 1411 - Patient's case was discussed with Dr. Anand, Dr. Anand accepts for admission. - Critical Care Time Critical Care Time: 30-74 min - 30 minutes CCT Discharge ED - Sign-Out/Discharge Documenting (check all that apply): Patient Departure - admit - Discharge Plan Condition: Stable Disposition: ADMITTED TO [facility] - Billing Disposition and Condition Condition: STABLE Disposition: Admitted to [facility] - Attestation Statements Document Initiated by Mauricio: Yes Documenting Scribe: MIKE RADFORD Provider For Whom Mauricio is Documenting (Include Credential): ABHI ESTRADA MD Scribe Attestation: MIKE Mack, scribed for ABHI ESTRADA MD on 01/18/19 at 2331. Scribe Documentation Reviewed: Yes Provider Attestation: The documentation as recorded by the MIKE couch accurately reflects the service I personally performed and the decisions made by me, ABHI ESTRADA MD Status of Scribe Document: Viewed
[2018-12-30] MEDS ORDERED: NS 0.9% 1000 ML** 2,000 ML IV ONE (11:48)
[2018-12-30 12:43] LABS: ABS Eosinophils 0.2 10^3/ul (0-0.6); ABS Lymphocytes 0.9 10^3/ul (1.0-4.8); ABS Monocytes 0.9 10^3/ul (0-0.8); Eosinophil % 2.2 %; Hematocrit 38 % (42-52); Hemoglobin 12.9 g/dL (14.0-18.0); Lymphocyte % 8.8 %; Mean Corpuscular HGB Conc 34 g/dL (31-36); Mean Corpuscular Hemoglobin 28 pg (27-31); Mean Corpuscular Volume 83 fL (80-94); Mean Platelet Volume 7.7 fL (7.4-10.4); Platelet Count 215 10^3/uL (150-450); Red Blood Count 4.56 10^6 /uL (4.18-5.48); Red Cell Distribution Width 14 % (10-15)
[2018-12-30 13:05] LABS: Albumin 3.5 g/dL (3.2-5.2); Albumin/Globulin Ratio 0.9 (1-3); BUN/Creatinine Ratio 31.1 (8-20); C Reactive Protein 99.2 mg/L (<8.01); Calcium 9.1 mg/dL (8.6-10.3); EGFR Non-African American 40.5 (>60); Globulin 3.7 g/dL (2-4); Potassium 4.4 mmol/L (3.5-5.0); Total Bilirubin 0.6 mg/dL (0.2-1.0); Total Protein 7.2 g/dL (6.4-8.9)
[2018-12-30 13:08] LABS: Troponin I 0.01 ng/mL (<0.04)
[2018-12-30 13:09] LABS: CKMB ng/mL 3.1 ng/mL (0.6-6.3)
[2018-12-30 13:25] LABS: Urine Appearance Cloudy; Urine Bacteria Absent (Absent); Urine Bilirubin Negative (Negative); Urine Blood 1+ (Negative); Urine Color Yellow; Urine Glucose Negative (Negative); Urine Ketones Negative (Negative); Urine Nitrite Negative (Negative); Urine Protein Negative (Negative); Urine Red Blood Cell 1+(3-5/hpf) (Absent); Urine Specific Gravity 1.011 (1.010-1.030); Urine Squamous Epithelial Cell Present (Absent); Urine Urobilinogen Negative (Negative); Urine White Blood Cell 3+(>20/hpf) (Absent)
[2018-12-30] MEDS ORDERED: cefTRIAXone(*) 1 GM in NS 0.9% 50 ML* 50 ML IVPB ONE (14:02)
[2018-12-30] MEDS ORDERED: Azithromycin 500 mg/250 ml NS 500 MG/250 ML BAG IVPB ONE (14:03)
[2018-12-30] MEDS ORDERED: methylPREDNISolone 125 MG* 2 ML VIAL IV ONE (14:04)
[2018-12-30] MEDS ORDERED: Albuterol 2.5 MG/3 ML NEB.SOL* (0.083%) INH ONE (14:04)
[2018-12-30] MEDS ORDERED: Albuterol/Ipratropium NEB.SOL* Albuterol 2.5 MG/Ipratropium 0.5 MG 3 ML INH PRN (16:02)
[2018-12-30] MEDS ORDERED: hydrOXYzine HCL TAB* 10 MG PO PRN (16:23)
[2018-12-30] MEDS ORDERED: guaiFENesin 100 mg/5 ml LIQ unit dose cup PO PRN (16:23)
[2018-12-30] MEDS ORDERED: Senna TAB 8.6 mg* TAB PO PRN (16:23)
[2018-12-30] MEDS ORDERED: Dextrose 50% VIAL 50 ml IV PUSH PRN (16:27)
--- NOTE | 2018-12-30 17:16 | HP ---
History of Present Illness - History of Present Illness Reason for Visit: Shortness of Breath History of Present Illness: 83 y/o M with past medical history of Chronic respiratory failure on home O2(3L) , COPD, CVA, CAD(s/p CABG), Severe Aortic Stenosis, Insulin dependant Diabetes Mellitus Type 2, TAMICA/OHS on BiPAP, HTN, BPH, skin cancer presented with Shortness of Breath for 1 week. He was on 3 L of oxygen at home but since one week his oxygen requirement was increased to 4 L, even at rest. He does have productive cough for more than a year but there is no recent change in color and frequency of cough. He complains of central chest pain that was present this morning which was 3/10 and nonradiating and nonexertional. He also had fever and the maximum recorded temperature was 103 F which was this morning. He doesnot complain of palpitation, dizziness or syncope. He does report of fatigue , loss of appetite and generalized weakness and he lost 70 lb in 2 month. He also report of blueish discoloration of left little toe. He recalls of falling down 2 weeks ago and hitting his left toe; since then he has pain and discoloration; he didnot visit PCP for this problem. He also complains of increased frequency of micturition and burning micturition. He recently had UTI and was treated with Augmentin for 5 days. He uses BiPAP machine at night and while napping. There is no history of abdominal pain, nausea, vomiting or diarrhea or black tarry stool. In hospital: HIs heart rate was high and respiratory rate was increased. He was requiring 4 L of O2 to maintain 94 Spo2. Chest Xray was done which showed small bibasialr airspace opacification, chronic elevation of right hemidiaphragm. Toe Xray and CT was done which showed soft tissue swelling at the dorsum of 3 and 4 metatarsals with area of low density with no abnormal erosions. Extensive calcification was seen. He was given fluids and azithro. - Past Medical History Past Medical History: 1. Chronic respiratory failure with COPD; Oxygen dependent, uses 3 L of Oxygen at home 2. CAD; s/p CABG 3. Severe Aortic Stenosis; He was managed medically; His last Echo on 02/2018 shows trileaflet valve with mean gradient of aortic valve being 34 mm. 4. Heart Failure with preserved Ejection Fraction. 5. Insulin Dependant Diabetes Mellitus: On Insulin Lantus 30 U BID with Victoza daily 6. Atrial Fibrillation: rate controlled with Metoprolol 25 mf BID 7.TAMICA/OHS: HOme B1PAP 8.Hypertension: On lisinopril 9.Chronic kidney Disease. 10. Skin cancer - Past Surgical History Past Surgical History: 1. CABG in 2014 2. Hernia repair in 195 3. Tracheostomy - Past Family History Past Family History: Family history positive for heart disease and cancer. - Past Social History Past Social History: Patient lives with his aide Dominic Tabor. He does not smoke, does not drink alcohol and no recreational drug use. His HCP is Dominic Tabor([phone]). He is DNR/DNI. His Primary care physician is Jeremiah Ruano and follows [facility]. Review of Systems - Review of Systems Constitutional: Positive: Fever, Weakness Respiratory: Positive: Cough, Shortness of Breath, Wheezing Genitourinary: Positive: Dysuria, Frequency Skin: Positive: Other - Discoloration of toe - Medications/Allergies Allergies/Adverse Reactions: Allergies Allergy/AdvReac Type Severity Reaction Status Date / Time nitroglycerin Allergy Severe Anaphylatic Verified 12/30/18 11:19 Shock levofloxacin Allergy Intermediate Itching Verified 12/30/18 11:19 Iodinated Contrast Media AdvReac Severe Altered Verified 12/30/18 11:19 [Iodinated Contrast- Oral Mental and IV Dye] Status Medications: Current Medications Albuterol/Ipratropium (Duoneb (Albuterol 2.5 Mg/Ipratropium 0.5 Mg)) 1 neb INH [id number] AWAKE PRN PRN Reason: sob/wheexing Atorvastatin Calcium (Lipitor*) 40 mg PO DAILY [facility] Carbamide Peroxide (Debrox 6.5% Otic*) 5 drop BOTH EARS BID [facility] Carboxymethylcellulose Sodium (Celluvisc 1% Opth*) 1 drop BOTH EYES Q2HR [facility] Cholecalciferol (Vitamin D Tab*) 1,000 units PO DAILY [facility] Dextrose (Dextrose 50% Vial 50 Ml*) 25 ml IV PUSH .FOR FS < 60 - SS PRN PRN Reason: FS < 60 Finasteride (Proscar Tab*) 5 mg PO DAILY [facility] Furosemide (Lasix Tab*) 40 mg PO BID [facility] Guaifenesin (Robitussin*) 5 ml PO Q4H PRN PRN Reason: COUGH Hydroxyzine HCl (Atarax Tab*) 10 mg PO TID PRN PRN Reason: ANXIETY Azithromycin 250 mg/ Sodium (Chloride) 250 mls @ 250 mls/hr IVPB Q24H [facility] Ceftriaxone Sodium 1 gm/ (Sodium Chloride) 50 mls @ 100 mls/hr IVPB Q24H [facility] Insulin Glargine (Lantus(*)) 20 units SUBCUT BID [facility] Insulin Human Lispro (Humalog*) 0 units SUBCUT ACHS [facility]; Protocol Liraglutide (Victoza (Nf)) 1.2 mg SUBCUT DAILY [facility] Lisinopril (Prinivil Tab*) 5 mg PO DAILY [facility] Methylprednisolone Sodium Succinate (Solu-Medrol 40 Mg) 40 mg IV Q12H [facility] Metoprolol Tartrate (Lopressor Tab*) 25 mg PO BID [facility] Mometasone Furoate (Asmanex 220 Mcg Mdi *) 2 puff INH BID [facility]; Protocol Pantoprazole Sodium (Protonix Tab*) 40 mg PO QAM [facility] Senna (Senokot 8.6 Mg Tab*) 2 tab PO BID PRN PRN Reason: CONSTIPATION Sertraline HCl (Zoloft*) 100 mg PO QAM [facility] Exam Vital Signs: Vital Signs (72 hours) 12/30/18 12/30/18 12/30/18 11:09 13:47 13:50 Temperature 98.1 F Pulse Rate 85 Respiratory 20 23 14 Rate Blood Pressure 112/94 104/65 (mmHg) O2 Sat by Pulse 94 Oximetry 12/30/18 12/30/18 12/30/18 14:00 14:50 15:00 Temperature Pulse Rate Respiratory 25 21 19 Rate Blood Pressure 87/65 (mmHg) O2 Sat by Pulse Oximetry 12/30/18 15:50 Temperature Pulse Rate Respiratory 10 Rate Blood Pressure 143/69 (mmHg) O2 Sat by Pulse Oximetry Exam: Patient is lying on abed and is on 4 L of Oxygen HEENT: There are numerous erythematous scar pippa on his scalp. He has black scab on tip of his nose. Sclera anicteric. PERRLA. Lungs: Using accessory muscle. Increased respiratory effort. Diffuse wheezes heard all over the chest. Heart: Irregualrly irregular heart rate with normal rate. Murmur heard on upper sternal border. Abdomen: Soft, distended and nontender. Normal Bowel sound heard all over abdomen Extremities: Blue discoloration on left little toe with tenderness and decreased ROM. Distal pulse are intact. Neuro: Alert, conscious and oriented. Has left facial droop and left ptosis. Motor and sensory function intact. Assessment/Plan - Assessment/Plan Assessment: This is a pleasant 83 y/o M with past medical history of Chronic respiratory failure on home O2(3L), COPD, CVA, CAD(s/p CABG), Severe Aortic Stenosis, Insulin dependent Diabetes Mellitus Type 2, TAMICA/OHS on BiPAP, HTN, BPH, skin cancer presented w/ likely COPD Exacerbation (could also consider PNA, CHF exacerbation) and incidentally blue discoloration of 5th digit possibly necrosis , dry gangrene, severe PAD, less likely acute blue toe given palpable pulse and no clear osteo, though will watch closely Plan: 1. Acute Exacerbation of COPD: Increase in shortness and breath and oxygen requirement with diffuse wheezes supports the diagnosis. Although there could be possibility of pneumonia as well. So we are covering with Ceftriaxone and Azithro; which will also cover suspected UTI. He is on albuterol/ipratropium and on IV steroid. He is still requiring 4 L of Oxygen. We will monitor him for worsening of symptoms. 2. Left toe Discoloration: Started after he sustained trauma. Xray didnot show any fracture. CT showed soft tissue swelling with srea of low density and extensive atherosclerosis. Concern for dry gangrene, blue toe syndrome, infected joint or osteomyelitis. We will consult Ortho. 3. HFpEF: Has CAd(s/p CABG). will continue his home lasix 4. IDDM: We will give him 20 units BID of insulin lantus. he was taking 30 U BID. We will continue his victoza and put him on insulin lispro SS. 5.Severe : We will monitor for any symptom and watch for volume overload. 6.BPH: On finasteride 7. Depression: On serrtaline, atarax. Zolpidem on hold 8. Supratherapeutic INR: NO active bleeding. We will hold his warfarin and monitor INR 9. Atrial Fibrillation: On metoprolol. Warfarin on hold 10. TAMICA/OHS: On BiPap 11. DVT prophylaxis: None; supratherapeutic INR 12. DNR/DNI 13. Diet: consistent carbohydrate diet. Attestation Documenting Resident: Judy Headley Supervising Physician: Symone Howard Attending/Supervising Physician Comment: Agree with resident note, attending addendum 83M complex medical hx as per resident note presented w COPD exacerbation and what appears to be a subacute toe infection. Overall will treat conservatively, in the global picture he is quite comorbidly ill and will optimize to the best of our ability. If toe infection ends up being overwhelming willl need to reassess goals of care. Attestation: This service has been performed in part by a resident under the direction of a teaching physician.I, Symone Howard, performed the service, or was physically present during the critical, or sahni portions of the service, furnished by the resident. I participated in the management of the patient.
[2018-12-30] MEDS ORDERED: cefTRIAXone(*) 1 GM in NS 0.9% 50 ML* 50 ML IVPB SCH (18:00)
[2018-12-30] MEDS: Insulin LISPRO* 1 UNITS UNIT SUBCUT SCH ×2 (18:14→22:58)
[2018-12-30] MEDS: Carboxymethylcellulos 1% OPTH* 1 DROP AMP BOTH EYES SCH ×2 (18:34→20:41)
--- NOTE | 2018-12-30 19:07 | CONS ---
CONSULTATION REPORT: DATE OF CONSULT: 12/30/18 CHIEF COMPLAINT: Left toe pain. HISTORY OF PRESENT ILLNESS: Mr. Escamilla is an 83-year-old gentleman admitted today for chest pain and COPD exacerbation. I am consulted for orthopedic care of the left toe, which is reported to be black and painful. The patient is unable to give much history. His live-in friend, roommate/aide, reports that his toe has been black for about 1 week. He hit the toe on a bed rail. He is minimally ambulatory and transfers only from wheelchair to bed. The patient reports that his toe gives him 10/10 pain. Any movement of the toe increases his pain. 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 PAST SURGICAL HISTORY: Aortic valve replacement in 2009. HOME MEDICATIONS: 1. Atarax. 2. Guaifenesin. 3. Ambien. 4. Coumadin. 5. Zoloft. 6. Senna. 7. Pyridium. 8. Omeprazole. 9. Nystatin. 10. Asmanex. 11. Lopressor. 12. Lisinopril. 13. Victoza. 14. Insulin. 15. Furosemide. 16. Finasteride. 17. Vitamin D3. 18. Keflex. 19. Lipitor. 20. Aspirin. 21. Albuterol. 22. Acetaminophen. 23. Oxygen 3 L continuous. ALLERGIES: NITROGLYCERIN, LEVOFLOXACIN, IODINATED CONTRAST. FAMILY HISTORY: Maternal, uterine cancer. Paternal, rectal cancer. SOCIAL HISTORY: The patient denies any tobacco, alcohol, or recreational drug use. He lives independently with a live-in aide named Dominic. Transfers from wheelchair to bed. REVIEW OF SYSTEMS: Fourteen systems were reviewed with the patient today. Positive for shortness of breath, chest pain, left foot pain. Otherwise, review of systems is negative or not relevant. PHYSICAL EXAM: Temperature 98.9, pulse of 85, blood pressure 107/61. General: The patient is an obese male, in obvious distress. He is on his side, yelling at nurses. He denies his name. I am unsure whether he is confused or being difficult. His aide/roommate is outside the door and gives me most of his history. Left lower extremity: The patient's skin has an open wound in the plantar crease of his pinky toe. This open wound is quite deep and I can see tendon when I move it. It has a foul smell. The toe itself is starting to turn black with ecchymosis versus gangrene; I am unsure. Any movement of the toe causes severe pain. 1+ palpable DP pulse. He reports intact sensation and tenderness to palpation on his entire foot. He can demonstrate dorsiflexion and plantarflexion. DIAGNOSTIC STUDIES/LAB DATA: Labs show white blood cells 10, hematocrit 38, platelets 215. INR 7.2. Sodium 136, BUN and creatinine 51 and 1.64, potassium 4.4, chloride 102, CRP 99, alk phos 124. Urine positive for leukocyte esterase , white blood cells, red blood cells. Radiographs: X-ray of the patient's toe shows no obvious fracture, no obvious osteomyelitis. There is a CT scan questioning of fluid collection along the dorsal third and fourth metatarsals. ASSESSMENT AND PLAN: Mr. Escamilla is an 83-year-old gentleman with left fifth toe pain. I am consulted for orthopedic evaluation. I do not see an obvious fracture. I am concerned about the laceration and foul odor indicating infection. I would recommend IV antibiotics. The patient is currently having chest pain and is unstable for any kind of bedside irrigation of this toe. I will let him be stabilized overnight. I have instructed nursing to do Xeroform and Kerlix dressings. He should be nonweightbearing on that left foot. I do not see any abnormality corresponding to CT findings. I would recommend an MRI of the left foot to evaluate for infection further. The patient would benefit from a formal irrigation and debridement of this wound with closure in the operating room. However, he has been deemed recently a poor surgical candidate. He may require a bedside attempt at this. I would ask that the MRI is obtained and the patient is medically optimized. I will consider a bedside procedure tomorrow if the patient is improved. [id number]/[facility] #: [id number]
[2018-12-30] MEDS: Metoprolol Tartrate TAB* 25 MG PO SCH (21:36)
[2018-12-30] MEDS ORDERED: Morphine 4 MG/ML VIAL (1 ml) 4 MG/ML VIAL IV ONE (22:18)
[2018-12-30] MEDS ORDERED: Morphine INJ* 4 MG/ML 1 ML SYRINGE (NEW SYRINGE VERSION) IV ONE (22:30)
[2018-12-30] MEDS: Insulin GLARGINE(*) 1 UNITS UNIT SUBCUT SCH (22:58)
[2018-12-31] MEDS: Carboxymethylcellulos 1% OPTH* 1 DROP AMP BOTH EYES SCH ×12 (00:15→22:26)
[2018-12-31] MEDS: Carbamide Peroxide 6.5% OTIC* 15 ML BTL BOTH EARS SCH ×3 (00:20→22:32)
[2018-12-31 05:17] LABS: ABS Lymphocytes 0.5 10^3/ul (1.0-4.8); ABS Monocytes 0.3 10^3/ul (0-0.8); ABS Neutrophils 7.3 10^3/ul (1.5-7.7); Hematocrit 33 % (42-52); Hemoglobin 11.3 g/dL (14.0-18.0); Lymphocyte % 5.6 %; Mean Corpuscular HGB Conc 34 g/dL (31-36); Mean Corpuscular Hemoglobin 29 pg (27-31); Mean Corpuscular Volume 83 fL (80-94); Mean Platelet Volume 8.1 fL (7.4-10.4); Nucleated Red Blood Cells % 0.1; Platelet Count 196 10^3/uL (150-450); Red Blood Count 3.97 10^6 /uL (4.18-5.48); Red Cell Distribution Width 14 % (10-15); White Blood Count 8.1 10^3/uL (3.5-10.8)
[2018-12-31 05:40] LABS: BUN/Creatinine Ratio 33.8 (8-20); Calcium 8.7 mg/dL (8.6-10.3); EGFR African American 56.5 (>60); EGFR Non-African American 46.7 (>60); Potassium 4.4 mmol/L (3.5-5.0)
[2018-12-31 05:52] LABS: INR 6.86 (0.82-1.09)
--- NOTE | 2018-12-31 06:55 | PN ---
Subjective Date of Service: 12/31/18 Interval History: HD 2 on 12/31/18 83 y/o M with past medical history of Chronic respiratory failure on home O2(3L) , COPD, CVA, CAD(s/p CABG), Severe Aortic Stenosis, Insulin dependent Diabetes Mellitus Type 2, TAMICA/OHS on BiPAP, HTN, BPH, skin cancer presented w/ likely COPD Exacerbation (could also consider PNA, CHF exacerbation) and incidentally blue discoloration of 5th digit possibly necrosis, dry gangrene, severe PAD, less likely acute blue toe given palpable pulse and no clear osteo, though will watch closely No acute overnight events VS stable; although requiring 4 L of O2. Chyna does not have any complaint. HE says he feels fine. His pain in left toe is improving. Patient was asking about going home. Objective Active Medications: Acetaminophen (Tylenol Tab*) 650 mg PO Q6H PRN PRN Reason: PAIN - MILD Albuterol/Ipratropium (Duoneb (Albuterol 2.5 Mg/Ipratropium 0.5 Mg)) 1 neb INH [id number] AWAKE PRN PRN Reason: sob/wheexing Atorvastatin Calcium (Lipitor*) 40 mg PO DAILY [facility] Carbamide Peroxide (Debrox 6.5% Otic*) 5 drop BOTH EARS BID [facility] Last Admin: 12/31/18 00:20 Dose: 5 drop Carboxymethylcellulose Sodium (Celluvisc 1% Opth*) 1 drop BOTH EYES Q2HR [facility] Last Admin: 12/31/18 05:21 Dose: Not Given Cholecalciferol (Vitamin D Tab*) 1,000 units PO DAILY [facility] Dextrose (Dextrose 50% Vial 50 Ml*) 25 ml IV PUSH .FOR FS < 60 - SS PRN PRN Reason: FS < 60 Finasteride (Proscar Tab*) 5 mg PO DAILY [facility] Furosemide (Lasix Tab*) 40 mg PO BID [facility] Guaifenesin (Robitussin*) 5 ml PO Q4H PRN PRN Reason: COUGH Hydroxyzine HCl (Atarax Tab*) 10 mg PO TID PRN PRN Reason: ANXIETY Azithromycin 250 mg/ Sodium (Chloride) 250 mls @ 250 mls/hr IVPB Q24H [facility] Ceftriaxone Sodium 1 gm/ (Sodium Chloride) 50 mls @ 100 mls/hr IVPB Q24H [facility] Last Admin: 12/30/18 18:18 Dose: 100 mls/hr Insulin Glargine (Lantus(*)) 20 units SUBCUT BID [facility] Last Admin: 12/30/18 22:58 Dose: 20 units Insulin Human Lispro (Humalog*) 0 units SUBCUT ACHS [facility]; Protocol Last Admin: 12/30/18 22:58 Dose: 15 units Liraglutide (Victoza (Nf)) 1.2 mg SUBCUT DAILY [facility] Lisinopril (Prinivil Tab*) 5 mg PO DAILY [facility] Methylprednisolone Sodium Succinate (Solu-Medrol 40 Mg) 40 mg IV Q12H [facility] Metoprolol Tartrate (Lopressor Tab*) 25 mg PO BID [facility] Last Admin: 12/30/18 21:36 Dose: 25 mg Mometasone Furoate (Asmanex 220 Mcg Mdi *) 2 puff INH BID [facility]; Protocol Pantoprazole Sodium (Protonix Tab*) 40 mg PO QAM [facility] Senna (Senokot 8.6 Mg Tab*) 2 tab PO BID PRN PRN Reason: CONSTIPATION Sertraline HCl (Zoloft*) 100 mg PO QAM [facility] Vital Signs - 8 hr 12/30/18 12/31/18 12/31/18 23:15 00:27 03:09 Temperature 97.2 F 97.8 F Pulse Rate 59 Respiratory 19 19 Rate Blood Pressure 106/53 115/50 (mmHg) O2 Sat by Pulse 100 95 95 Oximetry Oxygen Devices in Use Now: Nasal Cannula Exam: Patient is sitting on a bed with no acute distress and has nasal canula HEENT: Has scar on scalp; black scab on nose adn he only has his lower 4 teeth. Lungs: Wheezes present although decreasing than yesterday Heart: S1/S2 heard with murmur. Abdomen: Soft, nondistended and nontender. NOrmal BS heard Extremitites: discoloration on left toe; mild tenderness present. Neuro: Alert, conscious and oriented. Left facial droop and ptosis present. Result Diagrams: 12/31/18 04:52 12/31/18 04:52 Assess/Plan/Problems-Billing Assessment: 83 y/o M with past medical history of Chronic respiratory failure on home O2(3L) , COPD, CVA, CAD(s/p CABG), Severe Aortic Stenosis, Insulin dependent Diabetes Mellitus Type 2, TAMICA/OHS on BiPAP, HTN, BPH, skin cancer presented w/ likely COPD Exacerbation (could also consider PNA, CHF exacerbation) and incidentally blue discoloration of 5th digit possibly necrosis, dry gangrene, severe PAD, less likely acute blue toe given palpable pulse and no clear osteo, On zosyn and azithro(day 2) - Patient Problems (1) COPD exacerbation Current Visit: No Status: Acute Priority: High Onset Date: 10/05/13 Code (s): J44.1 - CHRONIC OBSTRUCTIVE PULMONARY DISEASE W (ACUTE) EXACERBATION SNOMED Code(s): 956642071 Comment: - Worsening SOB and increase oxygen requirement and diffuse wheezes - On 4 L of oxygen; uses 3l at home - On iv steroid and inhaler- albuterol/ipra and steroid - on azithro and zosyn(day 2) (2) Toe pain, left Current Visit: Yes Status: Acute Code(s): M79.675 - PAIN IN LEFT TOE(S) SNOMED Code(s): 289972889 Comment: He has severe pain in his left little toe with blueish black discoloration He hit his toe 2 weeks ago Imaging negative for fracture could be infected left toe, dry gangrene Ortho following recommended MRI of left toe; awaiting results He is not a good surgical candidate We are covering him with zosyn which will cover polymicrobial except MRSA. We are sending wound culture for MRSA. IF hunter decides on doing debridement then his INR should be reversed ahead with Vitamin K (3) Acute and chronic respiratory failure with hypoxia Current Visit: No Status: Acute Code(s): J96.21 - ACUTE AND CHRONIC RESPIRATORY FAILURE WITH HYPOXIA SNOMED Code(s): 26695471 Comment: Uses 3L of oxygen at home present oxygen requirement is 4L In setting of COPD exacerbation (4) Heart failure with preserved ejection fraction Current Visit: Yes Status: Acute Code(s): I50.30 - UNSPECIFIED DIASTOLIC ( CONGESTIVE) HEART FAILURE SNOMED Code(s): 563893958 Comment: Ejection fraction is 50-55%; last echo in 03/10/2018 On furosemide. No signs of volume overload at present (5) Supratherapeutic INR Current Visit: Yes Status: Acute Code(s): R79.1 - ABNORMAL COAGULATION PROFILE SNOMED Code(s): 993406740 Comment: He was on warfarin 3 mg everyday except 6 mg on thursday, thursday and thursday His INR is 6 today. We will hold his warfarin for now and monitor for INR and bleeding (6) Diabetes mellitus Current Visit: No Status: Acute Code(s): E11.9 - TYPE 2 DIABETES MELLITUS WITHOUT COMPLICATIONS SNOMED Code(s): 03412252 Comment: c/w lantus and SSI and victoza He is taking 30 U BID lantus at home; although his prescription says 25 U daily. His Hba1c is 6.9. Given his comorbidities his Hba1c goal is 7-8. He is now on 20 U lantus bid (7) History of CVA (cerebrovascular accident) Current Visit: No Status: Acute Priority: High Code(s): Z86.73 - PRSNL HX OF TIA (TIA), AND CEREB INFRC W/O RESID DEFICITS SNOMED Code(s): 515855305 Comment: secondary prevention with asa and statin asa on hold because of his high inr (8) Hypertension Current Visit: No Status: Acute Priority: High Code(s): I10 - ESSENTIAL ( PRIMARY) HYPERTENSION SNOMED Code(s): 91950104 Comment: Continue bb and lisinopril (9) Severe aortic stenosis Current Visit: No Status: Acute Code(s): I35.0 - NONRHEUMATIC AORTIC (VALVE ) STENOSIS SNOMED Code(s): 34671768 Comment: AOrtic valve mean gradient presuure is 34 he was managed medically before; history obtained from him and aide and asked his PCP Echo shows trileaflet valve (10) Afib Current Visit: No Status: Acute Priority: High Code(s): I48.91 - UNSPECIFIED ATRIAL FIBRILLATION SNOMED Code(s): 49461297 Comment: rate controlled with metoprolol 25 mg warfarin on hold because of high INR (11) DVT prophylaxis Current Visit: No Status: Acute Priority: High Code(s): JKZ2941 - SNOMED Code(s): 956681673 Comment: None because of high INR. will restart after his INR becomes therapeutic (12) Full code status Current Visit: No Status: Acute Priority: High Code(s): Z78.9 - OTHER SPECIFIED HEALTH STATUS SNOMED Code(s): 040294749 Status and Disposition: Medicine inpatient ortho following Attending: Symone Howard Attestation Documenting Resident: Judy Headley Supervising Physician: Symone Howard Attending/Supervising Physician Comment: Agree with resident note, attending addendum: 83M PMH COPD and TAMICA/OHS resulting in chronic hypoxic respiratory failure on home O2(3L) on BiPAP, CVA, CAD(s/p CABG), severe (apparently not candidate for AVR), IDDM, HTN, BPH presented w/ likely COPD exacerbation and incidentally found L toe 5th digit possibly necrosis vs dry gangrene vs severe PAD, possible osteo. #COPD Exacerbation: Improving today, continue nebs, steroids azithro #5th L LE SSTI: Broaden to Zosyn and Azithro, still missing MRSA coverage will send culture and if + add coverage, no e/o decompensation or systemic infection -MRI pending, ortho to follow Other numerous chronic med issues per resident note and plan. Attestation: This service has been performed in part by a resident under the direction of a teaching physician.I, Symone Howard, performed the service, or was physically present during the critical, or sahni portions of the service, furnished by the resident. I participated in the management of the patient.
[2018-12-31] MEDS: Insulin LISPRO* 1 UNITS UNIT SUBCUT SCH ×4 (08:48→21:32)
[2018-12-31] MEDS: Insulin GLARGINE(*) 1 UNITS UNIT SUBCUT SCH ×2 (08:48→21:32)
[2018-12-31] MEDS: methylPREDNISolone SOD 40 MG* 1 ML VIAL IV SCH ×2 (08:48→21:31)
[2018-12-31] MEDS: Cholecalciferol TAB* 1000 UNITS PO SCH (08:49)
[2018-12-31] MEDS: Furosemide TAB* 40 MG PO SCH ×2 (08:49→21:31)
[2018-12-31] MEDS: Sertraline* 100 MG TAB PO SCH (08:49)
[2018-12-31] MEDS: Finasteride TAB* 5 MG PO SCH (08:50)
[2018-12-31] MEDS: Atorvastatin* 40 MG TAB PO SCH (08:50)
[2018-12-31] MEDS: Pantoprazole TAB * 40 MG TAB PO SCH (08:51)
[2018-12-31] MEDS: Liraglutide (NF) 18 MG/3 ML SUBCUT SCH (08:52)
[2018-12-31] MEDS: Metoprolol Tartrate TAB* 25 MG PO SCH ×2 (08:56→21:31)
[2018-12-31] MEDS: Lisinopril TAB* 5 MG PO SCH (08:56)
[2018-12-31] MEDS ORDERED: Piperacillin/Tazobac ADVAN(*) 3.375 GM in NS 0.9% 100 ML* 100 ML IVPB ONE (11:52)
[2018-12-31] MEDS ORDERED: Zosyn per Pharmacy* NOTE FOLLOW UP SCH (12:00)
[2018-12-31] MEDS ORDERED: Azithromycin IV(*) 250 MG in NS 0.9% 250 ML* 250 ML IVPB SCH (15:00)
[2018-12-31] MEDS ORDERED: Vancomycin(*) 1,500 MG in NS 0.9% 250 ML* 250 ML IVPB ONE (16:00)
[2018-12-31] MEDS ORDERED: Vancomycin per Pharmacy* NOTE FOLLOW UP SCH (16:00)
[2018-12-31] MEDS ORDERED: ZOSYN 3.375 GM Q8H per EXTENDED INFUSION IVPB SCH ×2 (17:00)
[2018-12-31] MEDS: Acetaminophen TAB* 325 MG PO PRN (18:59)
[2018-12-31] MEDS: Mometasone 220 MCG MDI INH SCH ×2 (20:29→22:28)
[2018-12-31] MEDS: ZOSYN 3.375 GM Q8H per EXTENDED INFUSION IVPB SCH ×2 (21:32)
[2019-01-01] MEDS: Carboxymethylcellulos 1% OPTH* 1 DROP AMP BOTH EYES SCH ×12 (02:00→21:31)
[2019-01-01] MEDS: ZOSYN 3.375 GM Q8H per EXTENDED INFUSION IVPB SCH ×6 (03:34→20:34)
[2019-01-01 05:49] LABS: ABS Lymphocytes 0.5 10^3/ul (1.0-4.8); ABS Monocytes 0.4 10^3/ul (0-0.8); ABS Neutrophils 10.4 10^3/ul (1.5-7.7); Hematocrit 33 % (42-52); Lymphocyte % 4.1 %; Mean Corpuscular HGB Conc 33 g/dL (31-36); Mean Corpuscular Hemoglobin 28 pg (27-31); Mean Corpuscular Volume 84 fL (80-94); Mean Platelet Volume 7.6 fL (7.4-10.4); Platelet Count 188 10^3/uL (150-450); Red Blood Count 3.97 10^6 /uL (4.18-5.48); Red Cell Distribution Width 14 % (10-15); White Blood Count 11.3 10^3/uL (3.5-10.8)
[2019-01-01 06:01] LABS: BUN/Creatinine Ratio 34.6 (8-20); Calcium 8.7 mg/dL (8.6-10.3); EGFR African American 53.1 (>60); EGFR Non-African American 43.9 (>60); Potassium 4.7 mmol/L (3.5-5.0)
[2019-01-01 06:43] LABS: INR 5.25 (0.82-1.09)
--- NOTE | 2019-01-01 07:09 | PN ---
Subjective Date of Service: 01/01/19 Interval History: HD 3 on 01/01/19 83 y/o M with past medical history of Chronic respiratory failure on home O2(3L) , COPD, CVA, CAD(s/p CABG), Severe Aortic Stenosis, Insulin dependent Diabetes Mellitus Type 2, TAMICA/OHS on BiPAP, HTN, BPH, skin cancer presented w/ likely COPD Exacerbation (could also consider PNA, CHF exacerbation) and incidentally blue discoloration of 5th digit possible necrosis, osteo. No acute overnight events Vitals stable He has mild pain on left little toe. No SOB and wheezing at present. Objective Active Medications: Acetaminophen (Tylenol Tab*) 650 mg PO Q6H PRN PRN Reason: PAIN - MILD Last Admin: 12/31/18 18:59 Dose: 650 mg Albuterol/Ipratropium (Duoneb (Albuterol 2.5 Mg/Ipratropium 0.5 Mg)) 1 neb INH [id number] AWAKE PRN PRN Reason: sob/wheexing Atorvastatin Calcium (Lipitor*) 40 mg PO DAILY [facility] Last Admin: 12/31/18 08:50 Dose: 40 mg Carbamide Peroxide (Debrox 6.5% Otic*) 5 drop BOTH EARS BID [facility] Last Admin: 12/31/18 22:32 Dose: 5 drop Carboxymethylcellulose Sodium (Celluvisc 1% Opth*) 1 drop BOTH EYES Q2HR [facility] Last Admin: 01/01/19 06:37 Dose: Not Given Cholecalciferol (Vitamin D Tab*) 1,000 units PO DAILY [facility] Last Admin: 12/31/18 08:49 Dose: 1,000 units Dextrose (Dextrose 50% Vial 50 Ml*) 25 ml IV PUSH .FOR FS < 60 - SS PRN PRN Reason: FS < 60 Finasteride (Proscar Tab*) 5 mg PO DAILY [facility] Last Admin: 12/31/18 08:50 Dose: 5 mg Furosemide (Lasix Tab*) 40 mg PO BID [facility] Last Admin: 12/31/18 21:31 Dose: 40 mg Guaifenesin (Robitussin*) 5 ml PO Q4H PRN PRN Reason: COUGH Hydroxyzine HCl (Atarax Tab*) 10 mg PO TID PRN PRN Reason: ANXIETY Piperacillin Sod/Tazobactam (Sod 3.375 gm/ Sodium Chloride) 100 mls @ 25 mls/ hr IVPB 0400,1200,2000 [facility] Last Admin: 01/01/19 03:34 Dose: 25 mls/hr Vancomycin HCl 1,250 mg/ (Sodium Chloride) 250 mls @ 166.667 mls/hr IVPB Q24H [facility] Insulin Glargine (Lantus(*)) 20 units SUBCUT BID [facility] Last Admin: 12/31/18 21:32 Dose: 20 units Insulin Human Lispro (Humalog*) 0 units SUBCUT ACHS [facility]; Protocol Last Admin: 12/31/18 21:32 Dose: 9 units Liraglutide (Victoza (Nf)) 1.2 mg SUBCUT DAILY [facility] Last Admin: 12/31/18 08:52 Dose: Not Given Lisinopril (Prinivil Tab*) 5 mg PO DAILY [facility] Last Admin: 12/31/18 08:56 Dose: 5 mg Methylprednisolone Sodium Succinate (Solu-Medrol 40 Mg) 40 mg IV Q12H [facility] Last Admin: 12/31/18 21:31 Dose: 40 mg Metoprolol Tartrate (Lopressor Tab*) 25 mg PO BID [facility] Last Admin: 12/31/18 21:31 Dose: 25 mg Mometasone Furoate (Asmanex 220 Mcg Mdi *) 2 puff INH BID [facility]; Protocol Last Admin: 12/31/18 22:28 Dose: Not Given Pantoprazole Sodium (Protonix Tab*) 40 mg PO QAM [facility] Last Admin: 12/31/18 08:51 Dose: 40 mg Pharmacy Consult (Zosyn Per Pharmacy*) 1 note FOLLOW UP .ZOSYN PER PHARMACY [facility] Pharmacy Consult (Vancomycin Per Pharmacy*) 1 note FOLLOW UP .VANC PER PHARMACY [facility]; Protocol Pharmacy Profile Note (Vancomycin Trough Check) 1 note FOLLOW UP 1330 ONE Stop: 01/03/19 13:31 Senna (Senokot 8.6 Mg Tab*) 2 tab PO BID PRN PRN Reason: CONSTIPATION Sertraline HCl (Zoloft*) 100 mg PO QAM [facility] Last Admin: 12/31/18 08:49 Dose: 100 mg Vital Signs - 8 hr 12/31/18 01/01/19 23:41 03:39 Temperature 97.2 F 97.8 F Pulse Rate 64 63 Respiratory 18 Rate Blood Pressure 105/58 125/65 (mmHg) O2 Sat by Pulse 100 100 Oximetry Oxygen Devices in Use Now: Nasal Cannula, BiPAP Exam: Patient is sitting on a bed with no acute distress and has nasal canula HEENT: Has scar on scalp; black scab on nose adn he only has his lower 4 teeth. Lungs: Wheezes present although decreasing than yesterday Heart: S1/S2 heard with murmur. Abdomen: Soft, nondistended and nontender. NOrmal BS heard Extremitites: discoloration on left toe with laceration on plantar aspect; mild tenderness present. Neuro: Alert, conscious and oriented. Left facial droop and ptosis present. Result Diagrams: 01/01/19 05:32 01/01/19 05:32 Assess/Plan/Problems-Billing Assessment: 83 y/o M with past medical history of Chronic respiratory failure on home O2(3L) , COPD, CVA, CAD(s/p CABG), Severe Aortic Stenosis, Insulin dependent Diabetes Mellitus Type 2, TAMICA/OHS on BiPAP, HTN, BPH, skin cancer presented w/ likely COPD Exacerbation (could also consider PNA, CHF exacerbation) and incidentally blue discoloration of 5th digit possibly necrosis, dry gangrene, severe PAD, less likely acute blue toe given palpable pulse and no clear osteo; MRSA positive. On zosyn and vanco(day 2) - Patient Problems (1) Toe pain, left Current Visit: Yes Status: Acute Code(s): M79.675 - PAIN IN LEFT TOE(S) SNOMED Code(s): 640454790 Comment: - Hx of trauma with pain afterwards - Imaging negative for fracture. MRI possible early OM, ortho feels on exam dry gangrene - Ortho following; washout done at bedside today, 01/01, no possiblity of further surgery - On Zosyn and Vanco(day 2) on 01/01 - wound care consult on thursday - will follow up with ortho on discharge (2) COPD exacerbation Current Visit: No Status: Acute Priority: High Onset Date: 10/05/13 Code (s): J44.1 - CHRONIC OBSTRUCTIVE PULMONARY DISEASE W (ACUTE) EXACERBATION SNOMED Code(s): 914838696 Comment: - Worsening SOB and increase oxygen requirement and diffuse wheezes - On 3L of oxygen; uses 3l at home - On iv steroid and inhaler- albuterol/ipra and steroid - on vanco and zosyn(day 2) (3) Acute and chronic respiratory failure with hypoxia Current Visit: No Status: Acute Code(s): J96.21 - ACUTE AND CHRONIC RESPIRATORY FAILURE WITH HYPOXIA SNOMED Code(s): 96620793 Comment: - Uses 3L of oxygen at home, COPD exacerbation here (4) Heart failure with preserved ejection fraction Current Visit: Yes Status: Acute Code(s): I50.30 - UNSPECIFIED DIASTOLIC ( CONGESTIVE) HEART FAILURE SNOMED Code(s): 631090081 Comment: - Ejection fraction is 50-55%; last echo in 03/10/2018 - On furosemide. - No signs of volume overload at present (5) Supratherapeutic INR Current Visit: Yes Status: Acute Code(s): R79.1 - ABNORMAL COAGULATION PROFILE SNOMED Code(s): 285291899 Comment: - He was on warfarin 3 mg everyday except 6 mg on thursday, thursday and thursday - His INR is 5 today. - We will hold his warfarin for now and monitor for INR and bleeding (6) Diabetes mellitus Current Visit: No Status: Acute Code(s): E11.9 - TYPE 2 DIABETES MELLITUS WITHOUT COMPLICATIONS SNOMED Code(s): 01956977 Comment: - c/w lantus and SSI and victoza - He is taking 30 U BID lantus at home; although his prescription says 25 U daily. - His Hba1c is 6.9, given his comorbidities his Hba1c goal is 7-8. - He is now on 20 U lantus bid (7) History of CVA (cerebrovascular accident) Current Visit: No Status: Acute Priority: High Code(s): Z86.73 - PRSNL HX OF TIA (TIA), AND CEREB INFRC W/O RESID DEFICITS SNOMED Code(s): 902652938 Comment: - secondary prevention with asa and statin - asa on hold because of his high inr (8) Hypertension Current Visit: No Status: Acute Priority: High Code(s): I10 - ESSENTIAL ( PRIMARY) HYPERTENSION SNOMED Code(s): 08574575 Comment: - Continue bb and lisinopril (9) Severe aortic stenosis Current Visit: No Status: Acute Code(s): I35.0 - NONRHEUMATIC AORTIC (VALVE ) STENOSIS SNOMED Code(s): 39862651 Comment: - Aortic valve mean gradient presuure is 34 - he was managed medically before; history obtained from him and aide and asked his PCP - Echo shows trileaflet valve, NO HX OF TAVR, will order echo (10) Afib Current Visit: No Status: Acute Priority: High Code(s): I48.91 - UNSPECIFIED ATRIAL FIBRILLATION SNOMED Code(s): 82889844 Comment: - rate controlled with metoprolol 25 mg - warfarin on hold because of high INR (11) DVT prophylaxis Current Visit: No Status: Acute Priority: High Code(s): SEU0785 - SNOMED Code(s): 560916993 Comment: - None because of high INR. - will restart after his INR becomes therapeutic (12) Full code status Current Visit: No Status: Acute Priority: High Code(s): Z78.9 - OTHER SPECIFIED HEALTH STATUS SNOMED Code(s): 883059939 Status and Disposition: Medicine inpatient ortho following Attending: Symone Howard Attestation Documenting Resident: Judy Headley Supervising Physician: Symone Howard Attending/Supervising Physician Comment: Agree with resident note, attending addendum: 83M with mult comorbidities as per resident note, who presented with subacute SOB x 3 days with mild COPD exacerbation, responsive to steroids, incidentally found L 5th digit with cellulitis likely gangrene #COPD: Cont steroids, titrate to oral #5th toe SSTI: Wound, ID, and check ESR, cover broadly now, descalate to possibly clinda #: ?ble hx of TAVR though per echo in 02/2018 trileaflet valve, per outpt PCP reports no procedure this year #Chronic Resp failure: On biPAP QHS and naps #DVT: Supratherapetuic INR #Dispo: Possibly d/c on Thursday/ Attestation: This service has been performed in part by a resident under the direction of a teaching physician.I, Symone Howard, performed the service, or was physically present during the critical, or sahni portions of the service, furnished by the resident. I participated in the management of the patient.
[2019-01-01] MEDS: Mometasone 220 MCG MDI INH SCH ×2 (07:33→19:11)
[2019-01-01] MEDS: Pantoprazole TAB * 40 MG TAB PO SCH (09:13)
[2019-01-01] MEDS: Atorvastatin* 40 MG TAB PO SCH (09:13)
[2019-01-01] MEDS: Cholecalciferol TAB* 1000 UNITS PO SCH (09:13)
[2019-01-01] MEDS: methylPREDNISolone SOD 40 MG* 1 ML VIAL IV SCH ×3 (09:13→11:16)
[2019-01-01] MEDS: Liraglutide (NF) 18 MG/3 ML SUBCUT SCH (09:14)
[2019-01-01] MEDS: Sertraline* 100 MG TAB PO SCH (09:14)
[2019-01-01] MEDS: Metoprolol Tartrate TAB* 25 MG PO SCH ×2 (09:14→20:34)
[2019-01-01] MEDS: Lisinopril TAB* 5 MG PO SCH (09:14)
[2019-01-01] MEDS: Furosemide TAB* 40 MG PO SCH ×2 (09:14→20:34)
[2019-01-01] MEDS: Finasteride TAB* 5 MG PO SCH (09:14)
[2019-01-01] MEDS: Insulin LISPRO* 1 UNITS UNIT SUBCUT SCH ×4 (09:15→21:25)
[2019-01-01] MEDS: Insulin GLARGINE(*) 1 UNITS UNIT SUBCUT SCH ×2 (09:15→21:25)
[2019-01-01] MEDS: Carbamide Peroxide 6.5% OTIC* 15 ML BTL BOTH EARS SCH ×2 (09:16→21:27)
[2019-01-01] MEDS: Acetaminophen TAB* 325 MG PO PRN (10:25)
--- NOTE | 2019-01-01 11:05 | PN ---
Progress Note - Progress Note Date of Service: 01/01/19 SOAP: Subjective: Pt. reports continued aching pain /10 in left pinky toe. Objective: Vital Signs: Temp Pulse Resp BP Pulse Ox 97.8 F 63 18 125/65 100 01/01/19 03:39 01/01/19 03:39 12/31/18 23:41 01/01/19 03:39 01/01/19 03:39 Laboratory Results - last 24 hr 12/31/18 12/31/18 12/31/18 11:59 16:48 20:42 WBC RBC Hgb Hct MCV MCH MCHC RDW Plt Count MPV Neut % (Auto) Lymph % (Auto) [place] % (Auto) Eos % (Auto) Baso % (Auto) Absolute Neuts (auto) Absolute Lymphs (auto) Absolute Monos (auto) Absolute Eos (auto) Absolute Basos (auto) Absolute Nucleated RBC Nucleated RBC % INR (Anticoag Therapy) Sodium Potassium Chloride Carbon Dioxide Anion Gap BUN Creatinine Est GFR ( Amer) Est GFR (Non-Af Amer) BUN/Creatinine Ratio Glucose POC Glucose (mg/dL) 281 H 241 H 297 H Calcium 01/01/19 01/01/19 01/01/19 05:32 05:32 05:32 WBC 11.3 H RBC 3.97 L Hgb 11.0 L Hct 33 L MCV 84 MCH 28 MCHC 33 RDW 14 Plt Count 188 MPV 7.6 Neut % (Auto) 91.7 Lymph % (Auto) 4.1 [place] % (Auto) 3.8 Eos % (Auto) 0.0 Baso % (Auto) 0.4 Absolute Neuts (auto) 10.4 H Absolute Lymphs (auto) 0.5 L Absolute Monos (auto) 0.4 Absolute Eos (auto) 0.0 Absolute Basos (auto) 0.0 Absolute Nucleated RBC 0.0 Nucleated RBC % 0.0 INR (Anticoag Therapy) 5.25 H* Sodium 139 Potassium 4.7 Chloride 108 Carbon Dioxide 24 Anion Gap 7 BUN 53 H Creatinine 1.53 H Est GFR ( Amer) 53.1 Est GFR (Non-Af Amer) 43.9 BUN/Creatinine Ratio 34.6 H Glucose 210 H POC Glucose (mg/dL) Calcium 8.7 01/01/19 08:03 WBC RBC Hgb Hct MCV MCH MCHC RDW Plt Count MPV Neut % (Auto) Lymph % (Auto) [place] % (Auto) Eos % (Auto) Baso % (Auto) Absolute Neuts (auto) Absolute Lymphs (auto) Absolute Monos (auto) Absolute Eos (auto) Absolute Basos (auto) Absolute Nucleated RBC Nucleated RBC % INR (Anticoag Therapy) Sodium Potassium Chloride Carbon Dioxide Anion Gap BUN Creatinine Est GFR ( Amer) Est GFR (Non-Af Amer) BUN/Creatinine Ratio Glucose POC Glucose (mg/dL) 224 H Calcium LLE - pinky toe appears to have gangrene, demarcation up to MTP. sensation intact. plantar laceration open, tendon visible. no odor. Assessment: 83 yo M with COPD, angina admitted and found to have left pinky toe laceration/ infection/echymosis Plan: L toe washed with hydrogen peroxide and saline at bedside, sloughing skin debrided. Wound dressed with xeroform and kerlix. Discussed plan with hospitalist - patient is not a surgical candidate. Plan to consult wound care on Thursday. When patient is discharged will follow up with kamaljit in foot/ankle clinic. I will follow patient while in hospital.
[2019-01-01] MEDS: predniSONE TAB* 50 MG PO SCH (12:38)
[2019-01-01] MEDS: Vancomycin(*) 1,250 MG in NS 0.9% 250 ML* 250 ML IVPB SCH (17:56)
[2019-01-02] MEDS: Carboxymethylcellulos 1% OPTH* 1 DROP AMP BOTH EYES SCH ×11 (00:21→21:54)
[2019-01-02] MEDS: Acetaminophen TAB* 325 MG PO PRN (00:49)
[2019-01-02] MEDS: ZOSYN 3.375 GM Q8H per EXTENDED INFUSION IVPB SCH ×6 (04:12→21:53)
[2019-01-02 06:03] LABS: Hematocrit 32 % (42-52); Hemoglobin 10.7 g/dL (14.0-18.0); Mean Corpuscular HGB Conc 33 g/dL (31-36); Mean Corpuscular Hemoglobin 28 pg (27-31); Mean Corpuscular Volume 84 fL (80-94); Mean Platelet Volume 7.2 fL (7.4-10.4); Platelet Count 192 10^3/uL (150-450); Red Blood Count 3.85 10^6 /uL (4.18-5.48); Red Cell Distribution Width 14 % (10-15); White Blood Count 10.1 10^3/uL (3.5-10.8)
[2019-01-02 06:13] LABS: INR 3.87 (0.82-1.09)
[2019-01-02 06:21] LABS: BUN/Creatinine Ratio 33.9 (8-20); Calcium 8.5 mg/dL (8.6-10.3); EGFR African American 47.7 (>60); EGFR Non-African American 39.4 (>60); Potassium 4.8 mmol/L (3.5-5.0)
[2019-01-02 07:16] LABS: Erythrocyte Sed Rate 66 mm/Hr (0-19)
[2019-01-02] MEDS: Mometasone 220 MCG MDI INH SCH ×2 (07:19→19:42)
--- NOTE | 2019-01-02 08:34 | PN ---
Subjective Date of Service: 01/02/19 Interval History: HD 4 on 01/02 83M PMH chronic respiratory failure on home O2(3L), COPD, CVA w residual L sided weakness, CAD(s/p CABG), severe , IDDM, TAMICA/OHS on BiPAP, HTN, BPH, skin cancer presented w/ likely COPD Exacerbation and L 5th digit soft tissue infection. Overnight VSS, no acute events Labs: Stable. INR down to 3 This morning pt reports poor sleep but no other issues, breathing better, toe still with pain and pt requesting a boot. We discuss hopeful plan of fci on oral abx and w wound care in near future. Tolerating diet, voiding freely, compliant w BiPAP Objective Active Medications: Acetaminophen (Tylenol Tab*) 650 mg PO Q6H PRN PRN Reason: PAIN - MILD Last Admin: 01/02/19 00:49 Dose: 650 mg Albuterol/Ipratropium (Duoneb (Albuterol 2.5 Mg/Ipratropium 0.5 Mg)) 1 neb INH [id number] AWAKE PRN PRN Reason: sob/wheexing Atorvastatin Calcium (Lipitor*) 40 mg PO DAILY REPLACED BY [facility] Last Admin: 01/01/19 09:13 Dose: 40 mg Carbamide Peroxide (Debrox 6.5% Otic*) 5 drop BOTH EARS BID [facility]PL[facility]ED BY [facility] Last Admin: 01/01/19 21:27 Dose: 5 drop Carboxymethylcellulose Sodium (Celluvisc 1% Opth*) 1 drop BOTH EYES Q2HR REPLACED BY [facility] Last Admin: 01/02/19 04:12 Dose: Not Given Cholecalciferol (Vitamin D Tab*) 1,000 units PO DAILY [facility]PL[facility] BY [facility] Last Admin: 01/01/19 09:13 Dose: 1,000 units Dextrose (Dextrose 50% Vial 50 Ml*) 25 ml IV PUSH .FOR FS < 60 - SS PRN PRN Reason: FS < 60 Finasteride (Proscar Tab*) 5 mg PO DAILY [facility] Last Admin: 01/01/19 09:14 Dose: 5 mg Furosemide (Lasix Tab*) 40 mg PO BID [facility]PL[facility] BY [facility] Last Admin: 01/01/19 20:34 Dose: 40 mg Guaifenesin (Robitussin*) 5 ml PO Q4H PRN PRN Reason: COUGH Hydroxyzine HCl (Atarax Tab*) 10 mg PO TID PRN PRN Reason: ANXIETY Piperacillin Sod/Tazobactam (Sod 3.375 gm/ Sodium Chloride) 100 mls @ 25 mls/ hr IVPB 0400,1200,2000 REPLACED BY [facility] Last Admin: 01/02/19 04:12 Dose: 25 mls/hr Vancomycin HCl 1,250 mg/ (Sodium Chloride) 250 mls @ 166.667 mls/hr IVPB Q24H REPLACED BY [facility] Last Admin: 01/01/19 17:56 Dose: 166.667 mls/hr Insulin Glargine (Lantus(*)) 20 units SUBCUT BID [facility]PL[facility]ED BY [facility] Last Admin: 01/01/19 21:25 Dose: 20 units Insulin Human Lispro (Humalog*) 0 units SUBCUT ACHS REPLACED BY [facility]; Protocol Last Admin: 01/01/19 21:25 Dose: 12 units Liraglutide (Victoza (Nf)) 1.2 mg SUBCUT DAILY REPLACED BY [facility] Last Admin: 01/01/19 09:14 Dose: Not Given Lisinopril (Prinivil Tab*) 5 mg PO DAILY [facility]PL[facility]ED BY [facility] Last Admin: 01/01/19 09:14 Dose: 5 mg Metoprolol Tartrate (Lopressor Tab*) 25 mg PO BID [facility]PLACED BY [facility] Last Admin: 01/01/19 20:34 Dose: 25 mg Mometasone Furoate (Asmanex 220 Mcg Mdi *) 2 puff INH BID REPLACED BY [facility]; Protocol Last Admin: 01/02/19 07:19 Dose: Not Given Pantoprazole Sodium (Protonix Tab*) 40 mg PO QAM REPLACED BY [facility] Last Admin: 01/01/19 09:13 Dose: 40 mg Pharmacy Consult (Zosyn Per Pharmacy*) 1 note FOLLOW UP .ZOSYN PER PHARMACY REPLACED BY [facility] Pharmacy Consult (Vancomycin Per Pharmacy*) 1 note FOLLOW UP .VANC PER PHARMACY REPLACED BY [facility]; Protocol Pharmacy Profile Note (Vancomycin Trough Check) 1 note FOLLOW UP 1330 ONE Stop: 01/03/19 16:01 Prednisone (Deltasone Tab*) 50 mg PO DAILY REPLACED BY [facility] Last Admin: 01/01/19 12:38 Dose: 50 mg Senna (Senokot 8.6 Mg Tab*) 2 tab PO BID PRN PRN Reason: CONSTIPATION Sertraline HCl (Zoloft*) 100 mg PO QAM REPLACED BY [facility] Last Admin: 01/01/19 09:14 Dose: 100 mg Vital Signs - 8 hr 01/02/19 04:02 Temperature 97.9 F Pulse Rate 78 Respiratory 18 Rate Blood Pressure 115/55 (mmHg) O2 Sat by Pulse 96 Oximetry Oxygen Devices in Use Now: CPAP Appearance: Obese man in NAD, slurred speech and L ptosis eye Eyes: No Scleral Icterus Ears/Nose/Mouth/Throat: - - Poor dentition Neck: NL Appearance and Movements; NL JVP Respiratory: Symmetrical Chest Expansion and Respiratory Effort, Clear to Auscultation Cardiovascular: RRR, - - 3/6 TRACEE in LLSB Abdominal: NL Sounds; No Tenderness; No Distention, No Hepatosplenomegaly Lymphatic: No Cervical Adenopathy Extremities: No Edema Neurological: Alert and Oriented x 3 Result Diagrams: 01/02/19 05:55 01/02/19 05:55 Microbiology and Other Data: Microbiology 12/30/18 17:07 Aerobic Blood Culture - Preliminary Blood Venous No Growth Day 2 Anaerobic Blood Culture - Preliminary No Growth Day 2 12/30/18 17:00 Aerobic Blood Culture - Preliminary Blood Venous No Growth Day 2 Anaerobic Blood Culture - Preliminary No Growth Day 2 12/31/18 12:00 Skin and Soft Tissue MRSA/MSSA (PCR - Final Foot Left Mrsa Positive S.aureus Positive Gram Stain - Final 12/30/18 13:04 Urine Culture - Final Urine No Growth (<1,000 CFU/mL) 12/31/18 04:20 Legionella Urinary Antigen - Final Urine Negative Legionella Antigen Streptococcus pneumoniae Ag Screen - Final Negative S. pneumo Antigen Assess/Plan/Problems-Billing Assessment: 83M PMH chronic respiratory failure on home O2(3L), COPD, CVA w residual L sided weakness, CAD(s/p CABG), severe , IDDM, TAMICA/OHS on BiPAP, HTN, BPH, skin cancer presented w/ likely COPD Exacerbation and L 5th digit soft tissue infection. - Patient Problems (1) Cellulitis of fifth toe of left foot Current Visit: Yes Status: Acute Code(s): L03.032 - CELLULITIS OF LEFT TOE SNOMED Code(s): 82410231 Comment: - Hx of trauma with pain afterwards - Imaging negative for fracture. MRI possible early OM, ortho feels on exam dry gangrene, washout done at bedside 01/01, no defenitive operation - Covered broadly for now day 3/_ 7-10 on 01/02, ID consult in possibly switch to oral, ESR low - wound care consult on thursday - will follow up with ortho on discharge, see about possibility of boot for patient? (2) COPD exacerbation Current Visit: No Status: Acute Priority: High Onset Date: 10/05/13 Code (s): J44.1 - CHRONIC OBSTRUCTIVE PULMONARY DISEASE W (ACUTE) EXACERBATION SNOMED Code(s): 757900568 Comment: - Worsening SOB and increase oxygen requirement and diffuse wheezes - Change to oral steroid for total of 5 days then stop, Day 3/5 on 01/02 (3) Acute and chronic respiratory failure with hypoxia Current Visit: No Status: Acute Code(s): J96.21 - ACUTE AND CHRONIC RESPIRATORY FAILURE WITH HYPOXIA SNOMED Code(s): 15212076 Comment: - Uses 3L of oxygen at home, BIPAP dependent (4) Heart failure with preserved ejection fraction Current Visit: Yes Status: Acute Code(s): I50.30 - UNSPECIFIED DIASTOLIC ( CONGESTIVE) HEART FAILURE SNOMED Code(s): 845960175 Comment: - EF 50-55%; last echo in 03/10/2018, repeat echo pending - On furosemide. - No signs of volume overload at present (5) Supratherapeutic INR Current Visit: Yes Status: Acute Code(s): R79.1 - ABNORMAL COAGULATION PROFILE SNOMED Code(s): 890979423 Comment: - He was on warfarin 3 mg everyday except 6 mg on thursday, thursday and thursday - His INR on admission is 7, now at 3, consider DOAC on d/c (6) Diabetes mellitus Current Visit: No Status: Acute Code(s): E11.9 - TYPE 2 DIABETES MELLITUS WITHOUT COMPLICATIONS SNOMED Code(s): 15589758 Comment: - c/w lantus and SSI and victoza - He is taking 30 U BID lantus at home; although his prescription says 25 U daily. - His Hba1c is 6.9, given his comorbidities his Hba1c goal is 7-8. - He is now on 20 U lantus bid (7) History of CVA (cerebrovascular accident) Current Visit: No Status: Acute Priority: High Code(s): Z86.73 - PRSNL HX OF TIA (TIA), AND CEREB INFRC W/O RESID DEFICITS SNOMED Code(s): 804255847 Comment: - secondary prevention with asa and statin - asa on hold because of his high inr (8) Hypertension Current Visit: No Status: Acute Priority: High Code(s): I10 - ESSENTIAL ( PRIMARY) HYPERTENSION SNOMED Code(s): 50970296 Comment: - Continue bb and lisinopril (9) Severe aortic stenosis Current Visit: No Status: Acute Code(s): I35.0 - NONRHEUMATIC AORTIC (VALVE ) STENOSIS SNOMED Code(s): 97676683 Comment: - Aortic valve mean gradient presuure is 34 - he was managed medically before; history obtained from him and aide and asked his PCP, ? of distant AVR, echo pending (10) Afib Current Visit: No Status: Acute Priority: High Code(s): I48.91 - UNSPECIFIED ATRIAL FIBRILLATION SNOMED Code(s): 68622004 Comment: - rate controlled with metoprolol 25 mg - warfarin on hold because of high INR (11) DVT prophylaxis Current Visit: No Status: Acute Priority: High Code(s): LRW7195 - SNOMED Code(s): 078235251 Comment: - None because of high INR. - will restart after his INR becomes therapeutic, consider DOAC (12) DNR (do not resuscitate) Current Visit: Yes Status: Acute Comment: - Overall poor prognosis given comorbidites if toe wound is to become much worse Status and Disposition: Medicine inpatient ortho following Possible early in week of 01/03
[2019-01-02] MEDS: Insulin GLARGINE(*) 1 UNITS UNIT SUBCUT SCH ×2 (09:46→21:55)
[2019-01-02] MEDS: Insulin LISPRO* 1 UNITS UNIT SUBCUT SCH ×4 (09:47→21:55)
[2019-01-02] MEDS: Finasteride TAB* 5 MG PO SCH (09:49)
[2019-01-02] MEDS: Lisinopril TAB* 5 MG PO SCH (09:49)
[2019-01-02] MEDS: Metoprolol Tartrate TAB* 25 MG PO SCH ×2 (09:49→21:54)
[2019-01-02] MEDS: Furosemide TAB* 40 MG PO SCH ×2 (09:49→21:54)
[2019-01-02] MEDS: Pantoprazole TAB * 40 MG TAB PO SCH (09:49)
[2019-01-02] MEDS: Atorvastatin* 40 MG TAB PO SCH (09:49)
[2019-01-02] MEDS: Cholecalciferol TAB* 1000 UNITS PO SCH (09:49)
[2019-01-02] MEDS: predniSONE TAB* 50 MG PO SCH (09:49)
[2019-01-02] MEDS: Sertraline* 100 MG TAB PO SCH (09:49)
[2019-01-02] MEDS: Liraglutide (NF) 18 MG/3 ML SUBCUT SCH (10:03)
--- NOTE | 2019-01-02 11:14 | PN ---
Progress Note - Progress Note Date of Service: 01/02/19 Note: Patient is s/p bedside irrigation and debridement. He is resting in bed conversing pleasantly. He continues to have pain in the toe. Dressing is C/D/I. Foot is warm. Leave dressing intact. Wound consult on tomorrow 01/03/19. Follow up after discharge at [facility] with Dr. Ramires or Rodolfo. We will continue to follow.
[2019-01-02] MEDS: Carbamide Peroxide 6.5% OTIC* 15 ML BTL BOTH EARS SCH ×2 (14:17→21:54)
[2019-01-02] MEDS: Vancomycin(*) 1,250 MG in NS 0.9% 250 ML* 250 ML IVPB SCH (19:18)
[2019-01-03] MEDS: Carboxymethylcellulos 1% OPTH* 1 DROP AMP BOTH EYES SCH ×12 (00:22→21:26)
[2019-01-03] MEDS: Vancomycin(*) 1,250 MG in NS 0.9% 250 ML* 250 ML IVPB SCH (02:35)
[2019-01-03] MEDS: ZOSYN 3.375 GM Q8H per EXTENDED INFUSION IVPB SCH ×8 (04:57→22:01)
[2019-01-03 05:50] LABS: INR 3.24 (0.82-1.09)
--- NOTE | 2019-01-03 06:42 | PN ---
Subjective Date of Service: 01/03/19 Interval History: HD 5 on 01/03 83M PMH chronic respiratory failure on home O2(3L), COPD, CVA w residual L sided weakness, CAD(s/p CABG), severe , IDDM, TAMICA/OHS on BiPAP, HTN, BPH, skin cancer presented w/ likely COPD Exacerbation and L 5th digit soft tissue infection. Overnight VSS, no acute events Labs: Stable. INR down to 3 saturation maintained at 3L of O2. Complains of left toe pain. No other complaint at present Objective Active Medications: Acetaminophen (Tylenol Tab*) 650 mg PO Q6H PRN PRN Reason: PAIN - MILD Last Admin: 01/02/19 00:49 Dose: 650 mg Albuterol/Ipratropium (Duoneb (Albuterol 2.5 Mg/Ipratropium 0.5 Mg)) 1 neb INH [id number] AWAKE PRN PRN Reason: sob/wheexing Atorvastatin Calcium (Lipitor*) 40 mg PO DAILY [facility] Last Admin: 01/02/19 09:49 Dose: 40 mg Carbamide Peroxide (Debrox 6.5% Otic*) 5 drop BOTH EARS BID [facility] Last Admin: 01/02/19 21:54 Dose: Not Given Carboxymethylcellulose Sodium (Celluvisc 1% Opth*) 1 drop BOTH EYES Q2HR [facility] Last Admin: 01/03/19 05:32 Dose: Not Given Cholecalciferol (Vitamin D Tab*) 1,000 units PO DAILY [facility] Last Admin: 01/02/19 09:49 Dose: 1,000 units Dextrose (Dextrose 50% Vial 50 Ml*) 25 ml IV PUSH .FOR FS < 60 - SS PRN PRN Reason: FS < 60 Finasteride (Proscar Tab*) 5 mg PO DAILY [facility] Last Admin: 01/02/19 09:49 Dose: 5 mg Furosemide (Lasix Tab*) 40 mg PO BID [facility] Last Admin: 01/02/19 21:54 Dose: 40 mg Guaifenesin (Robitussin*) 5 ml PO Q4H PRN PRN Reason: COUGH Hydroxyzine HCl (Atarax Tab*) 10 mg PO TID PRN PRN Reason: ANXIETY Piperacillin Sod/Tazobactam (Sod 3.375 gm/ Sodium Chloride) 100 mls @ 25 mls/ hr IVPB 0400,1200,2000 [facility] Last Admin: 01/03/19 04:57 Dose: 25 mls/hr Vancomycin HCl 1,250 mg/ (Sodium Chloride) 250 mls @ 166.667 mls/hr IVPB 2100 [facility] Last Admin: 01/03/19 02:35 Dose: 166.667 mls/hr Insulin Glargine (Lantus(*)) 20 units SUBCUT BID [facility] Last Admin: 01/02/19 21:55 Dose: 20 units Insulin Human Lispro (Humalog*) 0 units SUBCUT ACHS [facility]; Protocol Last Admin: 01/02/19 21:55 Dose: 3 units Liraglutide (Victoza (Nf)) 1.2 mg SUBCUT DAILY [facility] Last Admin: 01/02/19 10:03 Dose: Not Given Lisinopril (Prinivil Tab*) 5 mg PO DAILY [facility] Last Admin: 01/02/19 09:49 Dose: 5 mg Metoprolol Tartrate (Lopressor Tab*) 25 mg PO BID [facility] Last Admin: 01/02/19 21:54 Dose: 25 mg Mometasone Furoate (Asmanex 220 Mcg Mdi *) 2 puff INH BID [facility]; Protocol Last Admin: 01/02/19 19:42 Dose: Not Given Pantoprazole Sodium (Protonix Tab*) 40 mg PO QAM [facility] Last Admin: 01/02/19 09:49 Dose: 40 mg Pharmacy Consult (Zosyn Per Pharmacy*) 1 note FOLLOW UP .ZOSYN PER PHARMACY [facility] Pharmacy Consult (Vancomycin Per Pharmacy*) 1 note FOLLOW UP .VANC PER PHARMACY [facility]; Protocol Pharmacy Profile Note (Vancomycin Trough Check) 1 note FOLLOW UP 1330 ONE Stop: 01/03/19 20:31 Prednisone (Deltasone Tab*) 50 mg PO DAILY [facility] Stop: 01/04/19 09:01 Last Admin: 01/02/19 09:49 Dose: 50 mg Senna (Senokot 8.6 Mg Tab*) 2 tab PO BID PRN PRN Reason: CONSTIPATION Sertraline HCl (Zoloft*) 100 mg PO QAM [facility] Last Admin: 01/02/19 09:49 Dose: 100 mg Vital Signs - 8 hr 01/02/19 01/03/19 01/03/19 23:15 02:44 04:08 Temperature 97.7 F 97.6 F Pulse Rate 75 74 Respiratory 20 18 Rate Blood Pressure 129/86 121/56 (mmHg) O2 Sat by Pulse 100 100 98 Oximetry Oxygen Devices in Use Now: CPAP Exam: Patient is sitting on a bed with no acute distress and has nasal canula HEENT: Has scar on scalp; black scab on nose adn he only has his lower 4 teeth. Lungs: Clear with no added sound. Heart: S1/S2 heard with murmur. Abdomen: Soft, nondistended and nontender. NOrmal BS heard Extremitites: discoloration on left toe with laceration on plantar aspect; mild tenderness present. Neuro: Alert, conscious and oriented. Left facial droop and ptosis present. Result Diagrams: 01/02/19 05:55 01/02/19 05:55 Microbiology and Other Data: Microbiology 12/30/18 17:07 Aerobic Blood Culture - Preliminary Blood Venous No Growth Day 2 Anaerobic Blood Culture - Preliminary No Growth Day 2 12/30/18 17:00 Aerobic Blood Culture - Preliminary Blood Venous No Growth Day 2 Anaerobic Blood Culture - Preliminary No Growth Day 2 12/31/18 12:00 Skin and Soft Tissue MRSA/MSSA (PCR - Final Foot Left Mrsa Positive S.aureus Positive Gram Stain - Final 12/30/18 13:04 Urine Culture - Final Urine No Growth (<1,000 CFU/mL) 12/31/18 04:20 Legionella Urinary Antigen - Final Urine Negative Legionella Antigen Streptococcus pneumoniae Ag Screen - Final Negative S. pneumo Antigen Assess/Plan/Problems-Billing Assessment: 83M PMH chronic respiratory failure on home O2(3L), COPD, CVA w residual L sided weakness, CAD(s/p CABG), severe , IDDM, TAMICA/OHS on BiPAP, HTN, BPH, skin cancer presented w/ likely COPD Exacerbation and L 5th digit soft tissue infection. On vanc and zosyn( day 4 on 01/03) - Patient Problems (1) Cellulitis of fifth toe of left foot Current Visit: Yes Status: Acute Code(s): L03.032 - CELLULITIS OF LEFT TOE SNOMED Code(s): 06218554 Comment: - Hx of trauma with pain afterwards - Imaging negative for fracture. MRI possible early OM, ortho feels on exam dry gangrene, washout done at bedside 01/01, no definitive operation - Covered broadly for now day 4/_ 7-10 on 01/03, - ID following- recommends continuing IV abx for now; arterial duplex ordered - will follow up with ortho on discharge- advices pt doesnot require boot; but okay (2) COPD exacerbation Current Visit: No Status: Acute Priority: High Onset Date: 10/05/13 Code (s): J44.1 - CHRONIC OBSTRUCTIVE PULMONARY DISEASE W (ACUTE) EXACERBATION SNOMED Code(s): 325461964 Comment: - Worsening SOB and increase oxygen requirement and diffuse wheezes - Change to oral steroid for total of 5 days then stop, Day 4/5 on 01/03 - will stop oral steroid tomorrow. (3) Acute and chronic respiratory failure with hypoxia Current Visit: No Status: Acute Code(s): J96.21 - ACUTE AND CHRONIC RESPIRATORY FAILURE WITH HYPOXIA SNOMED Code(s): 40745449 Comment: - Uses 3L of oxygen at home, BIPAP dependent now on 2L of o2. (4) Heart failure with preserved ejection fraction Current Visit: Yes Status: Acute Code(s): I50.30 - UNSPECIFIED DIASTOLIC ( CONGESTIVE) HEART FAILURE SNOMED Code(s): 421866764 Comment: - EF 50-55%; last echo in 03/10/2018, repeat echo pending - On furosemide. - No signs of volume overload at present (5) Supratherapeutic INR Current Visit: Yes Status: Acute Code(s): R79.1 - ABNORMAL COAGULATION PROFILE SNOMED Code(s): 526150861 Comment: - He was on warfarin 3 mg everyday except 6 mg on thursday, thursday and thursday - His INR on admission is 7, now at 3, consider DOAC on d/c (6) Diabetes mellitus Current Visit: No Status: Acute Code(s): E11.9 - TYPE 2 DIABETES MELLITUS WITHOUT COMPLICATIONS SNOMED Code(s): 48680135 Comment: - blood glucose on higher side; ppt by steroid - c/w lantus and SSI and victoza - He is taking 30 U BID lantus at home; although his prescription says 25 U daily. - His Hba1c is 6.9, given his comorbidities his Hba1c goal is 7-8. - He is now on 20 U lantus bid (7) History of CVA (cerebrovascular accident) Current Visit: No Status: Acute Priority: High Code(s): Z86.73 - PRSNL HX OF TIA (TIA), AND CEREB INFRC W/O RESID DEFICITS SNOMED Code(s): 188028541 Comment: - secondary prevention with asa and statin - asa on hold because of his high inr (8) Hypertension Current Visit: No Status: Acute Priority: High Code(s): I10 - ESSENTIAL ( PRIMARY) HYPERTENSION SNOMED Code(s): 90689202 Comment: - Continue bb and lisinopril (9) Severe aortic stenosis Current Visit: No Status: Acute Code(s): I35.0 - NONRHEUMATIC AORTIC (VALVE ) STENOSIS SNOMED Code(s): 26074289 Comment: - Aortic valve mean gradient presuure is 34 - he was managed medically before; history obtained from him and aide and asked his PCP, ? of distant AVR, echo pending (10) Afib Current Visit: No Status: Acute Priority: High Code(s): I48.91 - UNSPECIFIED ATRIAL FIBRILLATION SNOMED Code(s): 35339269 Comment: - rate controlled with metoprolol 25 mg - warfarin on hold because of high INR (11) DVT prophylaxis Current Visit: No Status: Acute Priority: High Code(s): DFO4666 - SNOMED Code(s): 514306195 Comment: - None because of high INR. - will restart after his INR becomes therapeutic, consider DOAC (12) DNR (do not resuscitate) Current Visit: Yes Status: Acute Comment: - Overall poor prognosis given comorbidites if toe wound is to become much worse Status and Disposition: Medicine inpatient ortho following Possible early in week of 01/03 Attending: Arian Sr Attestation Documenting Resident: Judy Headley Supervising Physician: Jaylon Sr Attestation: This service has been performed in part by a resident under the direction of a teaching physician.I, Jaylon Sr, performed the service, or was physically present during the critical, or sahni portions of the service, furnished by the resident. I participated in the management of the patient.
[2019-01-03] MEDS: Acetaminophen TAB* 325 MG PO PRN (07:11)
[2019-01-03] MEDS: Mometasone 220 MCG MDI INH SCH ×2 (08:13→20:40)
[2019-01-03] MEDS: Insulin GLARGINE(*) 1 UNITS UNIT SUBCUT SCH ×2 (08:29→21:08)
[2019-01-03] MEDS: Insulin LISPRO* 1 UNITS UNIT SUBCUT SCH ×4 (08:30→21:08)
[2019-01-03] MEDS: Atorvastatin* 40 MG TAB PO SCH (08:31)
[2019-01-03] MEDS: Cholecalciferol TAB* 1000 UNITS PO SCH (08:31)
[2019-01-03] MEDS: Metoprolol Tartrate TAB* 25 MG PO SCH ×2 (08:32→21:07)
[2019-01-03] MEDS: Pantoprazole TAB * 40 MG TAB PO SCH (08:32)
[2019-01-03] MEDS: Sertraline* 100 MG TAB PO SCH (08:32)
[2019-01-03] MEDS: Finasteride TAB* 5 MG PO SCH (08:32)
[2019-01-03] MEDS: Furosemide TAB* 40 MG PO SCH ×2 (08:32→21:07)
[2019-01-03] MEDS: predniSONE TAB* 50 MG PO SCH (08:33)
[2019-01-03] MEDS: Carbamide Peroxide 6.5% OTIC* 15 ML BTL BOTH EARS SCH ×2 (08:33→21:34)
[2019-01-03] MEDS: Lisinopril TAB* 5 MG PO SCH (08:33)
[2019-01-03] MEDS: Liraglutide (NF) 18 MG/3 ML SUBCUT SCH (08:34)
--- NOTE | 2019-01-03 13:38 | CONS ---
CONSULTATION REPORT: DATE OF CONSULT: 01/03/19 REQUESTING PHYSICIAN: Dr. Sr. CONSULTING SERVICE: Infectious Disease. REASON FOR CONSULTATION: Left fifth toe infection. IMPRESSION: 1. Left fifth toe cellulitis and component of gangrene with foul odor, necrotic material. Polymicrobial culture including MRSA, PCR positive, enterobacter, morganella, group B strep, Streptococcus anginosus, some or all could be pathogenic. I suspect the entire situation reflects underlying arterial insufficiency and will likely prevent much in the way of healing. 2. Severe aortic stenosis. 3. Chronic hypoxemic respiratory failure due to chronic obstructive pulmonary disease, on supplemental oxygen at home. 4. Coronary artery disease status post coronary artery bypass graft. 5. Insulin-dependent diabetes mellitus. 6. Atrial fibrillation, on Coumadin with an INR initially of 7, now 3. RECOMMENDATION: Agree with broad-spectrum antibiotics for now. I think further vascular evaluation in the setting of his calcified arteries make sense including an arterial ultrasound and Doppler. HISTORY OF PRESENT ILLNESS: This is an 83-year-old male with coronary artery disease, diabetes, admitted with dyspnea, felt to have a COPD exacerbation, incidentally noted to have left fifth toe pain and discoloration, which he thinks started with minor trauma to the toe a couple of weeks ago. It is still severely painful. He had been started on vancomycin and Zosyn. Initial blood cultures negative. Wound culture is as described above. He was seen by Orthopedics, who obtained an MRI that showed some soft tissue swelling and some increased STIR signal, no change in marrow edema. They debrided the sloughing skin at bedside. He is still having pain today. No fevers or chills. His breathing is getting a little better. PAST MEDICAL HISTORY: 1. Chronic hypoxemic respiratory failure due to severe COPD, on supplemental oxygen. 2. Coronary artery disease, status post coronary artery bypass. 3. Insulin-dependent diabetes mellitus. 4. Obesity. 5. Severe aortic stenosis. 6. Heart failure with preserved ejection fraction. 7. Atrial fibrillation. 8. Obstructive sleep apnea/obesity hypoventilation syndrome. 9. Hypertension. 10. Chronic kidney disease. 11. Skin cancer. 12. Status post hernia repair. 13. Status post tracheostomy, subsequently reversed. MEDICATIONS: 1. Tylenol. 2. Albuterol. 3. Lipitor. 4. Carbamide in the ears. 5. Cholecalciferol. 6. Finasteride. 7. Furosemide. 8. Guaifenesin as needed. 9. Hydroxyzine as needed. 10. Insulin glargine. 11. Victoza. 12. Lisinopril. 13. Metoprolol. 14. Pantoprazole. 15. Zosyn 3.375 g every 8 hours extended infusion. 16. Sertraline. 17. Vancomycin 1250 mg daily. FAMILY HISTORY: Coronary artery disease and cancer. SOCIAL HISTORY: Lives with an aide. He is a nonsmoker and no alcohol use. REVIEW OF SYSTEMS: All negative except as noted above the 12-point review of systems. PHYSICAL EXAM: Vital Signs: Temperature 36.1, heart rate 80, respiratory rate 20, blood pressure 125/90, oxygen saturation 99% on 3 L. In general, he is awake, not in distress. Neurologic: He is oriented x3. Follows all commands. HEENT: There is no conjunctival hemorrhage. Oropharynx without lesions. Neck is supple without mass. Heart is regular with a 3/6 systolic murmur. Lungs are clear to auscultation bilaterally. Abdomen: Soft, nontender, nondistended. Bowel sounds present. Skin: There is no rash or splinter hemorrhage. Musculoskeletal: There is no spine tenderness to palpation. The left foot is warm. The fifth toe has a foul odor. There is some macerated and mildly necrotic material on the surface with tenderness to palpation. LABORATORY DATA: White blood cell count 10, hemoglobin 10.7, platelets 192. Creatinine is 1.7. CRP 99 on admission. Please see impression and recommendations outlined above. Thanks for asking me to see Mr. Escamilla in consultation. [id number]/[facility] #: [id number] [facility] HOSPITALGeorgina
--- NOTE | 2019-01-03 17:23 | ECHO ---
*[facility]* [place] [address] Fax #: [phone] Transthoracic Echocardiogram Patient: Foster Escamilla : 1935 Study Date: 01/03/2019 Age: 83 Gender: M HR: 68 bpm Height: 62 in /157.5 cm BSA: 1.84 m^2 Weight: 182.6 lb /83 kg BMI: 33.5 kg/m^2 *Assembl[employer] Frame: Meghan Cordova [facility] *Referring Physician: * Symone HowardReading Physician: * Kali Chapman MD Indications: Aortic Valve Disorder. History: Atrial fibrillation. Coronary artery disease. Aortic stenosis. Cerebrovascular accident. Chronic obstructive pulmonary disease. The patient uses continuous supplemental oxygen. Risk factors: Hypertension. Diabetes mellitus. Dyslipidemia. Labs, prior tests, procedures, and surgery: Coronary artery bypass grafting. Conclusions Summary: - Left ventricle: The cavity size is normal. Wall thickness is mildly to moderately increased. Systolic function is normal. The estimated ejection fraction is 55-60%. Although no diagnostic regional wall motion abnormality is identified, this possibility cannot be completely excluded on the basis of this study. - Right ventricle: Systolic function is normal. - Mitral valve: The findings are consistent with mild to moderate stenosis. There is mild regurgitation. The valve area is 1.0 cm^2. The valve area by pressure half-time is 2.1 cm^2. - Aortic valve: The findings are consistent with moderate stenosis. But the degree of could be underestimated due to poor images There is no significant regurgitation. The mean systolic gradient is 8.0 mm Hg. The valve area by the velocity-time integral method is 0.70 cm^2. The valve area by the peak velocity method is 0.80 cm^2. - Tricuspid valve: There is trace regurgitation. - Pulmonary arteries: Systolic pressure is within the normal range. - Compared to study of 03/10/18, there is no significant change but poor image quality of both studies makes comparision difficult Study data: Transthoracic echocardiogram. Procedure: Transthoracic echocardiography was performed. Image quality was adequate. The study was technically limited due to poor patient compliance and COPD. Complete 2D, spectral Doppler, and color flow Doppler. Location: Bedside. Patient status: Inpatient. Patient room number: 439. Rhythm: Atrial fibrillation. Findings Left ventricle: The cavity size is normal. Wall thickness is mildly to moderately increased. Systolic function is normal. The estimated ejection fraction is 55-60%. Although no diagnostic regional wall motion abnormality is identified, this possibility cannot be completely excluded on the basis of this study. Left ventricular diastolic function parameters are indeterminate. Right ventricle: The cavity size is normal. Systolic function is normal. Left atrium: The atrium is severely dilated. Right atrium: The atrium is mildly dilated. Mitral valve: The Mitral valve annulus appears moderately calcified. The leaflets are mildly calcified. The findings are consistent with mild to moderate stenosis. There is mild regurgitation. Aortic valve: Not well visualized. The annulus is calcified. The leaflets are mildly thickened. The findings are consistent with moderate stenosis. But the degree of could be underestimated due to poor images There is no significant regurgitation. Tricuspid valve: The leaflets are normal thickness. There is no evidence of stenosis. There is trace regurgitation. Pulmonic valve: Not well visualized. The leaflets are normal thickness. There is no significant regurgitation. Aorta: The aortic root appears normal. Pulmonary arteries: Systolic pressure is within the normal range. Systemic veins: Inferior vena cava: Not well visualized. Measurements Left ventricle Value Ref Aortic valve Value Ref YASMEEN, LAX 5.0 cm 4.2 - 5.8 Aileen diam, ED 1.9 cm ----- ESD, LAX 4.0 cm 2.5 - 4.0 Peak v, S 2.8 m/sec ----- FS, LAX (L) 19 % 25 - 43 VTI, S 41.6 cm ----- PW, ED, LAX (H) 1.3 cm 0.6 - 1.0 Mean grad, S 8.0 mm Hg ----- EF (L) 39 % 52 - 72 Peak grad, S 31.0 mm Hg ----- E', lat aileen, TDI (L) 5.5 cm/sec >=10.0 MARQUEZ, VTI 0.70 cm^2 --- -- E/e', lat aileen, 35 MARQUEZ, Vmax 0.80 cm^2 ----- TDI E', med aileen, TDI (L) 5.1 cm/sec >=7.0 Mitral valve Value Ref E/e', med aileen, 37 Peak E 1.9 m/sec ----- TDI Decel time 182 ms ----- E', avg, TDI 5.3 cm/sec PHT 92 ms ----- E/e', avg, TDI (H) 36 <=14 Mean grad, D 4.0 mm Hg --- -- Peak grad, D 14.4 mm Hg ----- LVOT Value Ref MVA, PHT 2.1 cm^2 ----- Diam, S 2.00 cm Area 3.1 cm^2 Pulmonic valve Value Ref Peak monica, S 0.68 m/sec Peak v, S 0.75 m/sec ----- Mean grad, S 1 mm Hg Peak grad, S 2.0 mm Hg ----- Ventricular septum Value Ref Tricuspid valve Value Ref IVS, ED (H) 1.5 cm 0.6 - 1.0 TR peak v 2.3 m/sec <=2.8 Peak RV-RA grad, S 21 mm Hg ----- Right ventricle Value Ref YASMEEN, LAX 3.3 cm Aortic root Value Ref YASMEEN minor ax, A4C 3.0 cm 1.9 - 3.5 Root diam 2.8 cm <4.0 mid Pressure, S 29 mm Hg Ascending aorta Value Ref AAo AP diam, S 2.8 cm ----- Left atrium Value Ref AP dim, ES (H) 4.50 cm 3.00 - Pulmonary artery Value Ref 4.00 Pressure, S 27.0 mm Hg ----- ML dim, A4C 5.0 cm SI dim, A4C 8.1 cm Vol/bsa, ES, A/L (H) 69 ml/m^2 16 - 34 Right atrium Value Ref SI dim, ES 5.0 cm 3.4 - 5.3 ML dim, ES, A4C (H) 5.4 cm 2.6 - 4.4 Estimated RAP 8 mm Hg Legend: (L) and (H) pippa values outside specified reference range. Prepared and electronically signed by Kali Chapman MD 01/03/2019 17:23
[2019-01-03] MEDS ORDERED: Vancomycin Trough Check NOTE FOLLOW UP ONE (20:30)
[2019-01-04] MEDS: Carboxymethylcellulos 1% OPTH* 1 DROP AMP BOTH EYES SCH ×13 (00:08→23:00)
[2019-01-04] MEDS: Vancomycin(*) 1,250 MG in NS 0.9% 250 ML* 250 ML IVPB SCH (02:24)
[2019-01-04] MEDS: Piperacillin/Tazobac ADVAN(*) 3.375 GM in NS 0.9% 100 ML* 100 ML IVPB SCH ×3 (05:27→21:34)
--- NOTE | 2019-01-04 06:59 | PN ---
Subjective Date of Service: 01/04/19 Interval History: HD 6 on 01/04 83M PMH chronic respiratory failure on home O2(3L), COPD, CVA w residual L sided weakness, CAD(s/p CABG), severe , IDDM, TAMICA/OHS on BiPAP, HTN, BPH, skin cancer presented w/ likely COPD Exacerbation and L 5th digit soft tissue infection. No acute overnight events VS stable Patient does not have any complaint. He says he feels okay with mild pain in left toe. Objective Active Medications: Acetaminophen (Tylenol Tab*) 650 mg PO Q6H PRN PRN Reason: PAIN - MILD Last Admin: 01/03/19 07:11 Dose: 650 mg Albuterol/Ipratropium (Duoneb (Albuterol 2.5 Mg/Ipratropium 0.5 Mg)) 1 neb INH [id number] AWAKE PRN PRN Reason: sob/wheexing Atorvastatin Calcium (Lipitor*) 40 mg PO DAILY [facility] Last Admin: 01/03/19 08:31 Dose: 40 mg Carbamide Peroxide (Debrox 6.5% Otic*) 5 drop BOTH EARS BID [facility] Last Admin: 01/03/19 21:34 Dose: 5 drop Carboxymethylcellulose Sodium (Celluvisc 1% Opth*) 1 drop BOTH EYES Q2HR [facility] Last Admin: 01/04/19 05:24 Dose: 1 drop Cholecalciferol (Vitamin D Tab*) 1,000 units PO DAILY [facility] Last Admin: 01/03/19 08:31 Dose: 1,000 units Dextrose (Dextrose 50% Vial 50 Ml*) 25 ml IV PUSH .FOR FS < 60 - SS PRN PRN Reason: FS < 60 Finasteride (Proscar Tab*) 5 mg PO DAILY [facility] Last Admin: 01/03/19 08:32 Dose: 5 mg Furosemide (Lasix Tab*) 40 mg PO BID [facility] Last Admin: 01/03/19 21:07 Dose: 40 mg Guaifenesin (Robitussin*) 5 ml PO Q4H PRN PRN Reason: COUGH Hydroxyzine HCl (Atarax Tab*) 10 mg PO TID PRN PRN Reason: ANXIETY Vancomycin HCl 1,250 mg/ (Sodium Chloride) 250 mls @ 166.667 mls/hr IVPB 2100 [facility] Last Admin: 01/04/19 02:24 Dose: 166.667 mls/hr Piperacillin Sod/Tazobactam (Sod 3.375 gm/ Sodium Chloride) 100 mls @ 25 mls/ hr IVPB Q8H [facility] Last Admin: 01/04/19 05:27 Dose: 25 mls/hr Insulin Glargine (Lantus(*)) 20 units SUBCUT BID [facility] Last Admin: 01/03/19 21:08 Dose: 20 units Insulin Human Lispro (Humalog*) 0 units SUBCUT ACHS [facility]; Protocol Last Admin: 01/03/19 21:08 Dose: 2 units Liraglutide (Victoza (Nf)) 1.2 mg SUBCUT DAILY [facility] Last Admin: 01/03/19 08:34 Dose: Not Given Lisinopril (Prinivil Tab*) 5 mg PO DAILY [facility] Last Admin: 01/03/19 08:33 Dose: 5 mg Metoprolol Tartrate (Lopressor Tab*) 25 mg PO BID [facility] Last Admin: 01/03/19 21:07 Dose: 25 mg Mometasone Furoate (Asmanex 220 Mcg Mdi *) 2 puff INH BID [facility]; Protocol Last Admin: 01/03/19 20:40 Dose: 2 puff Pantoprazole Sodium ([facility]ix Tab*) [facility] Last Admin: 01/03/19 08:32 Dose: 40 mg Pharmacy Consult (Zosyn Per Pharmacy*) 1 note FOLLOW UP .ZOSYN PER PHARMACY [facility] Pharmacy Consult (Vancomycin Per Pharmacy*) 1 note FOLLOW UP .VANC PER PHARMACY [facility]; Protocol Prednisone (Deltasone Tab*) 50 mg PO DAILY [facility] Stop: 01/04/19 09:01 Last Admin: 01/03/19 08:33 Dose: 50 mg Senna (Senokot 8.6 Mg Tab*) 2 tab PO BID PRN PRN Reason: CONSTIPATION Sertraline HCl (Zoloft*) 100 mg PO QAM [facility] Last Admin: 01/03/19 08:32 Dose: 100 mg Vital Signs - 8 hr 01/04/19 01/04/19 00:08 03:37 Temperature 97.2 F 97.2 F Pulse Rate 81 73 Respiratory 18 16 Rate Blood Pressure 132/64 122/61 (mmHg) O2 Sat by Pulse 96 99 Oximetry Oxygen Devices in Use Now: Nasal Cannula Exam: Patient is sitting on a bed with no acute distress and has nasal canula HEENT: Has scar on scalp; black scab on nose adn he only has his lower 4 teeth. Lungs: Clear with no added sound. Heart: S1/S2 heard with murmur. Abdomen: Soft, nondistended and nontender. NOrmal BS heard Extremitites: discoloration on left toe with laceration on plantar aspect; mild tenderness present. Neuro: Alert, conscious and oriented. Left facial droop and ptosis present. Result Diagrams: 01/04/19 07:55 01/04/19 07:55 Microbiology and Other Data: Microbiology 12/30/18 17:07 Aerobic Blood Culture - Preliminary Blood Venous No Growth Day 2 Anaerobic Blood Culture - Preliminary No Growth Day 2 12/30/18 17:00 Aerobic Blood Culture - Preliminary Blood Venous No Growth Day 2 Anaerobic Blood Culture - Preliminary No Growth Day 2 12/31/18 12:00 Skin and Soft Tissue MRSA/MSSA (PCR - Final Foot Left Mrsa Positive S.aureus Positive Gram Stain - Final 12/30/18 13:04 Urine Culture - Final Urine No Growth (<1,000 CFU/mL) 12/31/18 04:20 Legionella Urinary Antigen - Final Urine Negative Legionella Antigen Streptococcus pneumoniae Ag Screen - Final Negative S. pneumo Antigen Assess/Plan/Problems-Billing Assessment: 83M PMH chronic respiratory failure on home O2(3L), COPD, CVA w residual L sided weakness, CAD(s/p CABG), severe , IDDM, TAMICA/OHS on BiPAP, HTN, BPH, skin cancer presented w/ likely COPD Exacerbation and L 5th digit soft tissue infection. On vanc and zosyn( day 4 on 01/03) - Patient Problems (1) Cellulitis of fifth toe of left foot Current Visit: Yes Status: Acute Code(s): L03.032 - CELLULITIS OF LEFT TOE SNOMED Code(s): 03069948 Comment: - Hx of trauma with pain afterwards - Imaging negative for fracture. MRI possible early OM, ortho feels on exam dry gangrene, washout done at bedside 01/01, no definitive operation - Covered broadly for now day 5 on 01/04, - Duplex LLE- patent lle arterial tree with mild atherosclerotic changes - ID following- recommends oral abx on dc- doxy for 30 days and keflex for 10 days -Vanco stopped today- creatinine was elevated - probabale dc tomorrow. (2) COPD exacerbation Current Visit: No Status: Acute Priority: High Onset Date: 10/05/13 Code (s): J44.1 - CHRONIC OBSTRUCTIVE PULMONARY DISEASE W (ACUTE) EXACERBATION SNOMED Code(s): 531004745 Comment: -improved - Worsening SOB and increase oxygen requirement and diffuse wheezes on presentation - Change to oral steroid for total of 5 days then stop, Day 07/25 on 01/04 - completed steroid burst (3) Acute and chronic respiratory failure with hypoxia Current Visit: No Status: Acute Code(s): J96.21 - ACUTE AND CHRONIC RESPIRATORY FAILURE WITH HYPOXIA SNOMED Code(s): 15716263 Comment: - Uses 3L of oxygen at home, BIPAP dependent now on 2L of o2. (4) Heart failure with preserved ejection fraction Current Visit: Yes Status: Acute Code(s): I50.30 - UNSPECIFIED DIASTOLIC ( CONGESTIVE) HEART FAILURE SNOMED Code(s): 807336571 Comment: - EF 50-55%; last echo in 03/10/2018, repeat echo pending - On furosemide. - No signs of volume overload at present (5) Supratherapeutic INR Current Visit: Yes Status: Acute Code(s): R79.1 - ABNORMAL COAGULATION PROFILE SNOMED Code(s): 808384306 Comment: - He was on warfarin 3 mg everyday except 6 mg on thursday, thursday and thursday - His INR on admission is 7, now at 2, consider DOAC on d/c - we will start him on eliquis once his INR is =2 (6) Diabetes mellitus Current Visit: No Status: Acute Code(s): E11.9 - TYPE 2 DIABETES MELLITUS WITHOUT COMPLICATIONS SNOMED Code(s): 59968334 Comment: - blood glucose on higher side; ppt by steroid - c/w lantus and SSI and victoza - He is taking 30 U BID lantus at home; although his prescription says 25 U daily. - His Hba1c is 6.9, given his comorbidities his Hba1c goal is 7-8. - He is now on 20 U lantus bid (7) History of CVA (cerebrovascular accident) Current Visit: No Status: Acute Priority: High Code(s): Z86.73 - PRSNL HX OF TIA (TIA), AND CEREB INFRC W/O RESID DEFICITS SNOMED Code(s): 949480286 Comment: - secondary prevention with asa and statin - asa on hold because of his high inr (8) Hypertension Current Visit: No Status: Acute Priority: High Code(s): I10 - ESSENTIAL ( PRIMARY) HYPERTENSION SNOMED Code(s): 50464827 Comment: - Continue bb and lisinopril (9) Severe aortic stenosis Current Visit: No Status: Acute Code(s): I35.0 - NONRHEUMATIC AORTIC (VALVE ) STENOSIS SNOMED Code(s): 58286928 Comment: - Aortic valve mean gradient presuure is 34 on previous echo - he was managed medically before; history obtained from him and aide and asked his PCP, ? of distant AVR, - His echo on 01/03/2019 showed EF of 55-60% with diastolic dysfxn and LA dilatation. Moderate aortic stenosis with mean systolic gradient is 8.0 mm Hg. (10) Afib Current Visit: No Status: Acute Priority: High Code(s): I48.91 - UNSPECIFIED ATRIAL FIBRILLATION SNOMED Code(s): 33067384 Comment: - rate controlled with metoprolol 25 mg - warfarin on hold because of high INR (11) DVT prophylaxis Current Visit: No Status: Acute Priority: High Code(s): UVV7668 - SNOMED Code(s): 144868108 Comment: - None because of high INR. - will restart after his INR becomes therapeutic, consider DOAC (12) DNR (do not resuscitate) Current Visit: Yes Status: Acute Comment: - Overall poor prognosis given comorbidites if toe wound is to become much worse Status and Disposition: Medicine inpatient ortho following possible dc tomorrow; PT says he needs continued PT and benefits from rehab.
[2019-01-04] MEDS: Mometasone 220 MCG MDI INH SCH ×2 (07:36→20:34)
[2019-01-04 08:11] LABS: Hematocrit 32 % (42-52); Hemoglobin 11.1 g/dL (14.0-18.0); Mean Corpuscular HGB Conc 34 g/dL (31-36); Mean Corpuscular Hemoglobin 28 pg (27-31); Mean Corpuscular Volume 82 fL (80-94); Mean Platelet Volume 7.6 fL (7.4-10.4); Platelet Count 212 10^3/uL (150-450); Red Blood Count 3.94 10^6 /uL (4.18-5.48); Red Cell Distribution Width 14 % (10-15); White Blood Count 12.4 10^3/uL (3.5-10.8)
[2019-01-04 08:12] LABS: INR 2.5 (0.82-1.09)
[2019-01-04 08:13] LABS: ABS Eosinophils 0.1 10^3/ul (0-0.6); ABS Lymphocytes 1.6 10^3/ul (1.0-4.8); ABS Monocytes 1.1 10^3/ul (0-0.8); ABS Neutrophils 9.6 10^3/ul (1.5-7.7); Eosinophil % 0.6 %; Lymphocyte % 12.6 %; Nucleated Red Blood Cells % 0.1
[2019-01-04 08:22] LABS: BUN/Creatinine Ratio 31.6 (8-20); Calcium 8.4 mg/dL (8.6-10.3); EGFR African American 44.9 (>60); EGFR Non-African American 37.1 (>60); Potassium 3.5 mmol/L (3.5-5.0)
[2019-01-04] MEDS: Cholecalciferol TAB* 1000 UNITS PO SCH (08:55)
[2019-01-04] MEDS: Atorvastatin* 40 MG TAB PO SCH (08:55)
[2019-01-04] MEDS: Sertraline* 100 MG TAB PO SCH (08:55)
[2019-01-04] MEDS: predniSONE TAB* 50 MG PO SCH (08:56)
[2019-01-04] MEDS: Pantoprazole TAB * 40 MG TAB PO SCH (08:56)
[2019-01-04] MEDS: Lisinopril TAB* 5 MG PO SCH (08:56)
[2019-01-04] MEDS: Metoprolol Tartrate TAB* 25 MG PO SCH ×2 (08:56→21:34)
[2019-01-04] MEDS: Finasteride TAB* 5 MG PO SCH (08:56)
[2019-01-04] MEDS: Insulin GLARGINE(*) 1 UNITS UNIT SUBCUT SCH ×2 (08:57→21:35)
[2019-01-04] MEDS: Furosemide TAB* 40 MG PO SCH (08:57)
[2019-01-04] MEDS: Insulin LISPRO* 1 UNITS UNIT SUBCUT SCH ×4 (08:57→21:37)
[2019-01-04] MEDS: Liraglutide (NF) 18 MG/3 ML SUBCUT SCH (09:07)
[2019-01-04] MEDS: Carbamide Peroxide 6.5% OTIC* 15 ML BTL BOTH EARS SCH ×2 (09:07→21:37)
[2019-01-04] MEDS: Acetaminophen TAB* 325 MG PO PRN (09:09)
[2019-01-04] MEDS ORDERED: TPN* 24 HR with D10W 1000 ML BAG* 1,000 ML, Amino Acid Infusion 10%* 850 ML, Sterile Wa... IV SCH ×12 (17:00)
--- NOTE | 2019-01-04 17:33 | CONSULT ---
Subjective Date of Service: 01/04/19 Interval History: Mr. Escamilla is an 83 yo male with PMH significant for DM2, diabetic neuropathy, chronic respiratory failure on home O2, COPD, CVA with residual left sided weakness, CAD (s/p CABG), severe , DM2, TAMICA, obesity hypoventilation syndrome , HTN, BPH, and skin cancer. He presented to the hospital with complaints of shortness of breath. He was admitted for a COPD exacerbation. He was noted to have a left 5th toe injury with discoloration on admission. He reports that this was from bumping his foot 1-2 weeks ago. He has pain with palpation of the toe. Patient seen and examined at bedside. Family History: Unchanged from Admission Social History: Unchanged from Admission Past Medical History: Unchanged from Admission Review of Systems - Measurements Intake and Output: Intake and Output Last 24 Hours 01/02/19 01/03/19 01/04/19 01/05/19 06:59 06:59 06:59 06:59 Intake Total 1684 1483 1170 480 Output Total 100 100 Balance 1584 1483 1070 480 Intake: IV Fluids 44 353 ABX - VANCOMYCIN 250 NS (0.9%) 20 103 Zosyn 24 IVPB 200 50 450 ABX - VANCOMYCIN 250 Zosyn 200 50 200 Oral 1440 1080 720 480 Output: Urine 100 100 Other: Estimated Void Medium Medium # Bowel Movements 3 1 Estimated Stool Amount Large Medium Large # Voids 3 4 1 - Review of Systems Constitutional Symptoms: Negative: Fever, Other - Chills Dermatology: Positive: Other - Wound to left 5th toe Endocrinology: Positive: Obesity, Diabetes Mellitus Objective Active Medications: Acetaminophen (Tylenol Tab*) 650 mg PO Q6H PRN Reason: PAIN - MILD Albuterol/Ipratropium (Duoneb (Albuterol 2.5 Mg/Ipratropium 0.5 Mg)) 1 neb INH RT.[id number] AWAKE PRN Reason: sob/wheexing Atorvastatin Calcium (Lipitor*) 40 mg PO DAILY [facility] Carbamide Peroxide (Debrox 6.5% Otic*) 5 drop BOTH EARS BID [facility] Carboxymethylcellulose Sodium (Celluvisc 1% Opth*) 1 drop BOTH EYES Q2HR [facility] Cholecalciferol (Vitamin D Tab*) 1,000 units PO DAILY [facility] Dextrose (Dextrose 50% Vial 50 Ml*) 25 ml IV PUSH FOR FS < 60 PRN Finasteride (Proscar Tab*) 5 mg PO DAILY [facility] Furosemide (Lasix Tab*) 20 mg PO BID [facility] Guaifenesin (Robitussin*) 5 ml PO Q4H PRN Reason: COUGH Hydroxyzine HCl (Atarax Tab*) 10 mg PO TID PRN Reason: ANXIETY Piperacillin Sod/Tazobactam (Sod 3.375 gm/ Sodium Chloride) 100 mls @ 25 mls/ hr IVPB Q8H [facility] Insulin Glargine (Lantus(*)) 20 units SUBCUT BID [facility] Insulin Human Lispro (Humalog*) 0 units SUBCUT ACHS [facility]; Protocol Liraglutide (Victoza (Nf)) 1.2 mg SUBCUT DAILY [facility] Lisinopril (Prinivil Tab*) 5 mg PO DAILY [facility] Metoprolol Tartrate (Lopressor Tab*) 25 mg PO BID [facility] Mometasone Furoate (Asmanex 220 Mcg Mdi *) 2 puff INH BID [facility]; Protocol Pantoprazole Sodium (Protonix Tab*) 40 mg PO QAM [facility] Pharmacy Consult (Zosyn Per Pharmacy*) 1 note FOLLOW UP .ZOSYN PER PHARMACY [facility] Pharmacy Profile Note (Vancomycin Trough Check) 1 note FOLLOW UP 0530 ONE Stop: 01/05/19 05:31 Senna (Senokot 8.6 Mg Tab*) 2 tab PO BID PRN Reason: CONSTIPATION Sertraline HCl (Zoloft*) 100 mg PO QAM [facility] Vital Signs 01/04/19 11:44 Temperature 97.2 F Pulse Rate 84 Respiratory 20 Rate Blood Pressure 122/62 (mmHg) O2 Sat by Pulse 97 Oximetry Oxygen Devices in Use Now: BiPAP Appearance: NAD, laying in bed Ears/Nose/Mouth/Throat: Mucous Membranes Moist Respiratory: Symmetrical Chest Expansion and Respiratory Effort Extremities: - - 1+ DP pulses, foot warm to touch Skin: - - See skin note below Neurological: - - Drowsy and Oriented Result Diagrams: 01/07/19 04:42 01/07/19 04:42 Additional Lab and Data: Above labs were pulled into the note when the note was edited prior to signing , please see labs below from day of consultation. Laboratory Tests 12/30/18 01/04/19 01/04/19 12:34 07:55 07:55 WBC 12.4 H Hgb 11.1 L Hct 32 L Plt Count 212 Sodium 141 Potassium 3.5 Chloride 109 Carbon Dioxide 24 BUN 56 H Creatinine 1.77 H Glucose 162 H C-Reactive Protein 99.20 H Total Protein 7.2 Albumin 3.5 Microbiology and Other Data: Microbiology 12/30/18 17:07 Aerobic Blood Culture - Preliminary Blood Venous No Growth Day 2 Anaerobic Blood Culture - Preliminary No Growth Day 2 12/30/18 17:00 Aerobic Blood Culture - Preliminary Blood Venous No Growth Day 2 Anaerobic Blood Culture - Preliminary No Growth Day 2 12/31/18 12:00 Skin and Soft Tissue MRSA/MSSA (PCR - Final Foot Left Mrsa Positive S.aureus Positive Gram Stain - Final 12/30/18 13:04 Urine Culture - Final Urine No Growth (<1,000 CFU/mL) 12/31/18 04:20 Legionella Urinary Antigen - Final Urine Negative Legionella Antigen Streptococcus pneumoniae Ag Screen - Final Negative S. pneumo Antigen Diagnostic Imagin. Exam Date: 01/03/19 1359 - VL LOWER EXT ART DUPLEX LEFT IMPRESSION: Patent left lower extremity arterial tree from [employer] to the dorsalis pedis with mild atherosclerotic changes. 2. Exam Date: 12/31/18 0949 - MRI LOWER EXTREMITY LEFT W/O IMPRESSION: 1. Study is limited by motion artifact despite multiple attempts at scanning. 2. No visualized mass or abscess. There is limited edematous signal change surrounding the fifth MTP and proximal phalanx of the fifth toe possibly cellulitis but nonspecific. 3. Limited abnormal increased signal on STIR imaging in phalanges of the fifth toe without convincing enough alteration on nonenhanced T1-weighted imaging to confirm osteomyelitis at this time. This may be reactive marrow signal or very early osteomyelitis. 3. Exam Date: 12/30/18 1219 - TOE LEFT 5TH IMPRESSION: 1. No definite destructive osseous changes (radiograph is insensitive to acute osteomyelitis). 2. Extensive vascular calcifications. 4. Exam Date: 12/30/18 1215 - CT EXTREMITY LOWER LEFT WO IMPRESSION: Soft tissue swelling at the dorsum of the third and fourth metatarsals with areas of low density which may represent small fluid pockets. No abnormal erosions are noted. Extensive atherosclerosis is noted. Skin Deviation Note - Skin Deviation Findings Left lateral 5th toe - The toe with edema and purplish discoloration to the tip of the toe, and dark erythema to the remainder of the toe. There is some crusting between the 4th and 5th toes. Left 5th toe, plantar aspect - There is dark dry eschar on the medal aspect of the toe. There is a deep laceration across the base of the entire toe. There is a white nodule just inside the skin, and tendon seen, deeper appears to be bone visualized. There is no drainage. There is a foul odor from the toe. Wound Problem/Plan Assessment: Mr. Escamilla is an 83 yo male with PMH significant for DM2, diabetic neuropathy, chronic respiratory failure on home O2, COPD, CVA with residual left sided weakness, CAD (s/p CABG), severe , DM2, TAMICA, obesity hypoventilation syndrome , HTN, BPH, and skin cancer. He presented to the hospital with complaints of shortness of breath. He was admitted for a COPD exacerbation. He was noted to have a left 5th toe injury with discoloration on admission. 1. Left 5th toe wound and infection. Suspect there is underlying osteomyelitis. There is also associated cellulitis, he is on IV ABX per ID. 01/01 - S/P bedside debridement with Dr. [place]. I have discussed my findings with Dr. Reynolds with Orthopedics and he will plan to take the patient to the OR on for a 5th ray amputation if he is medically cleared. Recommend applying a rolled gauze dressing and change the dressing daily. 2. DM2. HgA1C 6.9 during this admission. Maintain good glycemic control to allow for wound healing. 3. Obesity. BMI 33.5. 4. Diet. Consistent Carbohydrate diet. 5. Code Status. DNR. 6. Disposition. Inpatient, disposition per primary medicine team. Is Patient a Wound Clinic Patient: No Counseling and/or Coordination of Care Minutes: 45 Points of Discussion: TIME SPENT: Time for this wound consultation was 45 minutes, 20 minutes was spent at bedside with the patient discussing past medical history; and assessing , and photographing the wound. 15 minutes was spent discussing the case with Orthopedics and the primary medicine team. Attending: Margot Salvador
--- NOTE | 2019-01-04 19:29 | PN ---
Progress Note - Progress Note Date of Service: 01/04/19 SOAP: Subjective: Pt. is alert, reports minimal pain in L toe. Objective: Vital Signs: Temp Pulse Resp BP Pulse Ox 97.1 F 89 20 122/61 97 01/04/19 15:32 01/04/19 15:32 01/04/19 15:32 01/04/19 15:32 01/04/19 15:32 Laboratory Results - last 24 hr 01/03/19 01/03/19 01/04/19 19:43 20:28 07:20 WBC RBC Hgb Hct MCV MCH MCHC RDW Plt Count MPV Neut % (Auto) Lymph % (Auto) [place] % (Auto) Eos % (Auto) Baso % (Auto) Absolute Neuts (auto) Absolute Lymphs (auto) Absolute Monos (auto) Absolute Eos (auto) Absolute Basos (auto) Absolute Nucleated RBC Nucleated RBC % INR (Anticoag Therapy) Sodium Potassium Chloride Carbon Dioxide Anion Gap BUN Creatinine Est GFR ( Amer) Est GFR (Non-Af Amer) BUN/Creatinine Ratio Glucose POC Glucose (mg/dL) 134 H 182 H Calcium Vancomycin Trough 16.1 01/04/19 01/04/19 01/04/19 07:55 07:55 07:55 WBC 12.4 H RBC 3.94 L Hgb 11.1 L Hct 32 L MCV 82 MCH 28 MCHC 34 RDW 14 Plt Count 212 MPV 7.6 Neut % (Auto) 77.4 Lymph % (Auto) 12.6 [place] % (Auto) 9.2 Eos % (Auto) 0.6 Baso % (Auto) 0.2 Absolute Neuts (auto) 9.6 H Absolute Lymphs (auto) 1.6 Absolute Monos (auto) 1.1 H Absolute Eos (auto) 0.1 Absolute Basos (auto) 0.0 Absolute Nucleated RBC 0.0 Nucleated RBC % 0.1 INR (Anticoag Therapy) 2.50 H Sodium 141 Potassium 3.5 Chloride 109 Carbon Dioxide 24 Anion Gap 8 BUN 56 H Creatinine 1.77 H Est GFR ( Amer) 44.9 Est GFR (Non-Af Amer) 37.1 BUN/Creatinine Ratio 31.6 H Glucose 162 H POC Glucose (mg/dL) Calcium 8.4 L Vancomycin Trough 01/04/19 01/04/19 11:48 17:25 WBC RBC Hgb Hct MCV MCH MCHC RDW Plt Count MPV Neut % (Auto) Lymph % (Auto) [place] % (Auto) Eos % (Auto) Baso % (Auto) Absolute Neuts (auto) Absolute Lymphs (auto) Absolute Monos (auto) Absolute Eos (auto) Absolute Basos (auto) Absolute Nucleated RBC Nucleated RBC % INR (Anticoag Therapy) Sodium Potassium Chloride Carbon Dioxide Anion Gap BUN Creatinine Est GFR ( Amer) Est GFR (Non-Af Amer) BUN/Creatinine Ratio Glucose POC Glucose (mg/dL) 140 H 204 H Calcium Vancomycin Trough LLE - wound is open with small amount of drainage. erythema has not advanced. distally nvi. Assessment: 83 yo M with multiple medical comordities - not a surgical candidate. Presented with trauma to left 5th toe, laceration/open wound and infection. Bedside washout was effective, IV antibiotics. Plan: Hospitalist plan on d/c to home tomorrow. f/u in wound clinic and with ortho - call [phone] for an appointment with dr marie or annie within 7-10 days.
[2019-01-04] MEDS: Furosemide TAB* 20 MG PO SCH (21:34)
[2019-01-05] MEDS: Carboxymethylcellulos 1% OPTH* 1 DROP AMP BOTH EYES SCH ×11 (02:53→22:57)
[2019-01-05] MEDS: Piperacillin/Tazobac ADVAN(*) 3.375 GM in NS 0.9% 100 ML* 100 ML IVPB SCH ×3 (05:11→22:13)
[2019-01-05] MEDS ORDERED: Vancomycin Trough Check NOTE FOLLOW UP ONE (05:30)
[2019-01-05] MEDS ORDERED: Vancomycin(*) 1,250 MG in NS 0.9% 250 ML* 250 ML IVPB SCH (06:00)
[2019-01-05 07:37] LABS: Hematocrit 34 % (42-52); Hemoglobin 11.5 g/dL (14.0-18.0); Mean Corpuscular HGB Conc 34 g/dL (31-36); Mean Corpuscular Hemoglobin 28 pg (27-31); Mean Corpuscular Volume 84 fL (80-94); Platelet Count 225 10^3/uL (150-450); Red Blood Count 4.11 10^6 /uL (4.18-5.48); Red Cell Distribution Width 14 % (10-15)
[2019-01-05 07:45] LABS: INR 1.85 (0.82-1.09)
[2019-01-05 07:55] LABS: EGFR African American 49.7 (>60); EGFR Non-African American 41.1 (>60)
[2019-01-05 07:57] LABS: Vancomycin Trough 15.2 mcg/mL
[2019-01-05] MEDS: Mometasone 220 MCG MDI INH SCH ×2 (08:36→19:06)
[2019-01-05 08:49] LABS: ABS Lymphocytes 1.2 10^3/ul (1.0-4.8); ABS Monocytes 1.1 10^3/ul (0-0.8); ABS Neutrophils 9.6 10^3/ul (1.5-7.7); Eosinophil % 0.3 %; Lymphocyte % 10.3 %; Nucleated Red Blood Cells % 0.3
[2019-01-05] MEDS: Liraglutide (NF) 18 MG/3 ML SUBCUT SCH (09:00)
[2019-01-05] MEDS ORDERED: Apixaban* 2.5 MG TAB PO SCH (10:00)
[2019-01-05] MEDS: Finasteride TAB* 5 MG PO SCH (10:10)
[2019-01-05] MEDS: Cholecalciferol TAB* 1000 UNITS PO SCH (10:11)
[2019-01-05] MEDS: Lisinopril TAB* 5 MG PO SCH (10:11)
[2019-01-05] MEDS: Furosemide TAB* 20 MG PO SCH ×2 (10:11→22:12)
[2019-01-05] MEDS: Sertraline* 100 MG TAB PO SCH (10:11)
[2019-01-05] MEDS: Atorvastatin* 40 MG TAB PO SCH (10:11)
--- NOTE | 2019-01-05 10:12 | PN ---
Progress Note - Progress Note Date of Service: 01/05/19 SOAP: Subjective: cc: toe infection HPI: 83 year old man with diabetic neuropathy and left 5th toe infection, odor from it is improving, still discolored and painful. He has no fever, rash, or diarrhea. Objective: Vital Signs Temp 36.6 C 01/05/19 03:06 Pulse 74 01/05/19 08:40 Resp 18 01/05/19 08:40 BP 100/72 01/05/19 03:06 Pulse Ox 97 01/05/19 08:40 Intake & Output 01/04/19 01/05/19 01/05/19 18:59 06:59 18:59 Intake Total 696 485 360 Output Total 100 Balance 696 385 360 Intake: IV Fluids 216 25 NS (0.9%) 25 Zosyn 216 IVPB 100 Zosyn 100 Oral 480 360 360 Output: Urine 100 Other: Estimated Void Medium Large # Bowel Movements 1 Estimated Stool Amount Large # Voids 1 2 Gen:awake, no distress HEENT: no thrush Heart:RRR, systolic murmur Lungs:CTA BL Abd:+BS NTND soft Skin: no rash MSK: Left 5th toe purple/red discoloration, plantar white nodule Laboratory Results - last 24 hr 01/04/19 01/04/19 01/04/19 11:48 17:25 20:03 WBC RBC Hgb Hct MCV MCH MCHC RDW Plt Count MPV Neut % (Auto) Lymph % (Auto) [place] % (Auto) Eos % (Auto) Baso % (Auto) Absolute Neuts (auto) Absolute Lymphs (auto) Absolute Monos (auto) Absolute Eos (auto) Absolute Basos (auto) Absolute Nucleated RBC Nucleated RBC % INR (Anticoag Therapy) BUN Creatinine Est GFR ( Amer) Est GFR (Non-Af Amer) POC Glucose (mg/dL) 140 H 204 H 281 H Vancomycin Trough 01/05/19 01/05/19 01/05/19 06:10 06:10 06:10 WBC 12.0 H RBC 4.11 L Hgb 11.5 L Hct 34 L MCV 84 MCH 28 MCHC 34 RDW 14 Plt Count 225 MPV 8.0 Neut % (Auto) 80.3 Lymph % (Auto) 10.3 [place] % (Auto) 9.0 Eos % (Auto) 0.3 Baso % (Auto) 0.1 Absolute Neuts (auto) 9.6 H Absolute Lymphs (auto) 1.2 Absolute Monos (auto) 1.1 H Absolute Eos (auto) 0.0 Absolute Basos (auto) 0.0 Absolute Nucleated RBC 0.0 Nucleated RBC % 0.3 INR (Anticoag Therapy) 1.85 H BUN 57 H Creatinine 1.62 H Est GFR ( Amer) 49.7 Est GFR (Non-Af Amer) 41.1 POC Glucose (mg/dL) Vancomycin Trough 15.2 Assessment: 1. Left 5th toe cellulitis, myositis and at least skin necrosis 2. Diabetes with neuropathy 3. Severe 4. COPD 5. CKD, stage 4 Plan: 1. doxycycline 100 mg po twice daily for 4 weeks, keflex 500 mg po twice daily for 10 days; fu with orthopedics, wound, ID next week
[2019-01-05] MEDS: Pantoprazole TAB * 40 MG TAB PO SCH (10:13)
[2019-01-05] MEDS: Insulin LISPRO* 1 UNITS UNIT SUBCUT SCH ×4 (12:19→22:11)
[2019-01-05] MEDS: Metoprolol Tartrate TAB* 25 MG PO SCH ×2 (12:21→22:11)
[2019-01-05] MEDS: Carbamide Peroxide 6.5% OTIC* 15 ML BTL BOTH EARS SCH ×2 (12:34→22:12)
[2019-01-05] MEDS: Insulin GLARGINE(*) 1 UNITS UNIT SUBCUT SCH ×2 (12:35→22:10)
--- NOTE | 2019-01-05 13:18 | PN ---
Progress Note - Progress Note Date of Service: 01/05/19 SOAP: Subjective: []Patient seen at bedside. He continues to report left 5th toe pain. Objective: [] Assessment: [] Plan: [] Vital Signs Temp 97.8 F 01/05/19 03:06 Pulse 59 01/05/19 10:00 Resp 20 01/05/19 11:21 BP 110/70 01/05/19 11:21 Pulse Ox 100 01/05/19 11:21 Intake & Output 01/04/19 01/05/19 01/05/19 18:59 06:59 18:59 Intake Total 696 485 360 Output Total 100 Balance 696 385 360 Intake: IV Fluids 216 25 NS (0.9%) 25 Zosyn 216 IVPB 100 Zosyn 100 Oral 480 360 360 Output: Urine 100 Other: Estimated Void Medium Large Date of Last Bowel 01/05 Movement # Bowel Movements 1 1 Estimated Stool Amount Large Medium # Voids 1 2 Laboratory Last Values WBC 12.0 10^3/uL (3.5-10.8) H 01/05/19 06:10 RBC 4.11 10^6 /uL (4.18-5.48) L 01/05/19 06:10 Hgb 11.5 g/dL (14.0-18.0) L 01/05/19 06:10 Hct 34 % (42-52) L 01/05/19 06:10 MCV 84 fL (80-94) 01/05/19 06:10 MCH 28 pg (27-31) 01/05/19 06:10 MCHC 34 g/dL (31-36) 01/05/19 06:10 RDW 14 % (10-15) 01/05/19 06:10 Plt Count 225 10^3/uL (150-450) 01/05/19 06:10 MPV 8.0 fL (7.4-10.4) 01/05/19 06:10 Neut % (Auto) 80.3 % 01/05/19 06:10 Lymph % (Auto) 10.3 % 01/05/19 06:10 [place] % (Auto) 9.0 % 01/05/19 06:10 Eos % (Auto) 0.3 % 01/05/19 06:10 Baso % (Auto) 0.1 % 01/05/19 06:10 Absolute Neuts (auto) 9.6 10^3/ul (1.5-7.7) H 01/05/19 06:10 Absolute Lymphs (auto) 1.2 10^3/ul (1.0-4.8) 01/05/19 06:10 Absolute Monos (auto) 1.1 10^3/ul (0-0.8) H 01/05/19 06:10 Absolute Eos (auto) 0.0 10^3/ul (0-0.6) 01/05/19 06:10 Absolute Basos (auto) 0.0 10^3/ul (0-0.2) 01/05/19 06:10 Absolute Nucleated RBC 0.0 10^3/ul 01/05/19 06:10 Nucleated RBC % 0.3 01/05/19 06:10 ESR 66 mm/Hr (0-19) H 01/02/19 05:55 INR (Anticoag Therapy) 1.85 (0.82-1.09) H 01/05/19 06:10 D-Dimer, Quantitative < 200 ng/mL (Less Than 230) 12/30/18 12:34 Sodium 141 mmol/L (135-145) 01/04/19 07:55 Potassium 3.5 mmol/L (3.5-5.0) 01/04/19 07:55 Chloride 109 mmol/L (101-111) 01/04/19 07:55 Carbon Dioxide 24 mmol/L (22-32) 01/04/19 07:55 Anion Gap 8 mmol/L (2-11) 01/04/19 07:55 BUN 57 mg/dL (6-24) H 01/05/19 06:10 Creatinine 1.62 mg/dL (0.67-1.17) H 01/05/19 06:10 Est GFR ( Amer) 49.7 (>60) 01/05/19 06:10 Est GFR (Non-Af Amer) 41.1 (>60) 01/05/19 06:10 BUN/Creatinine Ratio 31.6 (8-20) H 01/04/19 07:55 Glucose 162 mg/dL (70-100) H 01/04/19 07:55 POC Glucose (mg/dL) 209 mg/dL (70-100) H 01/05/19 12:06 Glucose Meter Confirm 392 mg/dL (70-100) H 01/02/19 16:55 Hemoglobin A1c 6.9 % (4.0-5.6) H 12/30/18 12:34 Lactic Acid 0.9 mmol/L (0.5-2.0) 12/30/18 12:34 Calcium 8.4 mg/dL (8.6-10.3) L 01/04/19 07:55 Magnesium 2.0 mg/dL (1.9-2.7) 12/31/18 04:52 Total Bilirubin 0.60 mg/dL (0.2-1.0) 12/30/18 12:34 AST 18 U/L (13-39) 12/30/18 12:34 ALT 17 U/L (7-52) 12/30/18 12:34 Alkaline Phosphatase 124 U/L (34-104) H 12/30/18 12:34 Total Creatine Kinase 45 U/L (10-223) 12/30/18 12:34 CK-MB (CK-2) 3.1 ng/mL (0.6-6.3) 12/30/18 12:34 Troponin I 0.01 ng/mL (<0.04) 12/30/18 12:34 C-Reactive Protein 99.20 mg/L (<8.01) H 12/30/18 12:34 B-Natriuretic Peptide 590 pg/mL (<=100) H 12/30/18 12:34 Total Protein 7.2 g/dL (6.4-8.9) 12/30/18 12:34 Albumin 3.5 g/dL (3.2-5.2) 12/30/18 12:34 Globulin 3.7 g/dL (2-4) 12/30/18 12:34 Albumin/Globulin Ratio 0.9 (1-3) L 12/30/18 12:34 Urine Color Yellow 12/30/18 13:04 Urine Appearance Cloudy 12/30/18 13:04 Urine pH 5.0 (5-9) 12/30/18 13:04 Ur Specific [place] 1.011 (1.010-1.030) 12/30/18 13:04 Urine Protein Negative (Negative) 12/30/18 13:04 Urine Ketones Negative (Negative) 12/30/18 13:04 Urine Blood 1+ (Negative) A 12/30/18 13:04 Urine Nitrate Negative (Negative) 12/30/18 13:04 Urine Bilirubin Negative (Negative) 12/30/18 13:04 Urine Urobilinogen Negative (Negative) 12/30/18 13:04 Ur Leukocyte Esterase 3+ (Negative) A 12/30/18 13:04 Urine WBC (Auto) 3+(>20/hpf) (Absent) A 12/30/18 13:04 Urine RBC (Auto) 1+(3-5/hpf) (Absent) A 12/30/18 13:04 Ur Squamous Epith Cells Present (Absent) A 12/30/18 13:04 Urine Bacteria Absent (Absent) 12/30/18 13:04 Urine Glucose Negative (Negative) 12/30/18 13:04 Vancomycin Trough 15.2 mcg/mL 01/05/19 06:10
--- NOTE | 2019-01-05 13:24 | PN ---
Progress Note - Progress Note Date of Service: 01/05/19 SOAP: Subjective: []Pt seen at bedside. He has continued left 5th toe pain. Denies feeling of fever or chills. Objective: []Gen: NAD while sitting up, becomes obviously SOB with movement around his bed LLE: left 5th toe black distal and plantar aspect. There is a laceration on the plantar side with exposed tendon and mild purulence. No foul odor and no erythema. No active ROM of L 5th toe, pain with passive ROM. Assessment: []Left 5th toe laceration and infection Diabetes with neuropathy Severe COPD CKD, stage 4 Plan: NWB LLE Keep wound covered per wound care ID abx rec: doxycycline 100 mg po twice daily for 4 weeks, keflex 500 mg po twice daily for 10 days; fu with orthopedics, wound, ID next week Discussed with Dr Reynolds as well as Dr Sr. Patient is high risk but optimized for OR as long as able to perform procedure with MAC/ local block Anticipate left 5th ray amp tomorrow with Dr. Reynolds. Patient is agreeable. Vital Signs Temp 97.8 F 01/05/19 03:06 Pulse 59 01/05/19 10:00 Resp 20 01/05/19 11:21 BP 110/70 01/05/19 11:21 Pulse Ox 100 01/05/19 11:21 Intake & Output 01/04/19 01/05/19 01/05/19 18:59 06:59 18:59 Intake Total 696 485 360 Output Total 100 Balance 696 385 360 Intake: IV Fluids 216 25 NS (0.9%) 25 Zosyn 216 IVPB 100 Zosyn 100 Oral 480 360 360 Output: Urine 100 Other: Estimated Void Medium Large Date of Last Bowel 01/05 Movement # Bowel Movements 1 1 Estimated Stool Amount Large Medium # Voids 1 2 Laboratory Last Values WBC 12.0 10^3/uL (3.5-10.8) H 01/05/19 06:10 RBC 4.11 10^6 /uL (4.18-5.48) L 01/05/19 06:10 Hgb 11.5 g/dL (14.0-18.0) L 01/05/19 06:10 Hct 34 % (42-52) L 01/05/19 06:10 MCV 84 fL (80-94) 01/05/19 06:10 MCH 28 pg (27-31) 01/05/19 06:10 MCHC 34 g/dL (31-36) 01/05/19 06:10 RDW 14 % (10-15) 01/05/19 06:10 Plt Count 225 10^3/uL (150-450) 01/05/19 06:10 MPV 8.0 fL (7.4-10.4) 01/05/19 06:10 Neut % (Auto) 80.3 % 01/05/19 06:10 Lymph % (Auto) 10.3 % 01/05/19 06:10 [place] % (Auto) 9.0 % 01/05/19 06:10 Eos % (Auto) 0.3 % 01/05/19 06:10 Baso % (Auto) 0.1 % 01/05/19 06:10 Absolute Neuts (auto) 9.6 10^3/ul (1.5-7.7) H 01/05/19 06:10 Absolute Lymphs (auto) 1.2 10^3/ul (1.0-4.8) 01/05/19 06:10 Absolute Monos (auto) 1.1 10^3/ul (0-0.8) H 01/05/19 06:10 Absolute Eos (auto) 0.0 10^3/ul (0-0.6) 01/05/19 06:10 Absolute Basos (auto) 0.0 10^3/ul (0-0.2) 01/05/19 06:10 Absolute Nucleated RBC 0.0 10^3/ul 01/05/19 06:10 Nucleated RBC % 0.3 01/05/19 06:10 ESR 66 mm/Hr (0-19) H 01/02/19 05:55 INR (Anticoag Therapy) 1.85 (0.82-1.09) H 01/05/19 06:10 D-Dimer, Quantitative < 200 ng/mL (Less Than 230) 12/30/18 12:34 Sodium 141 mmol/L (135-145) 01/04/19 07:55 Potassium 3.5 mmol/L (3.5-5.0) 01/04/19 07:55 Chloride 109 mmol/L (101-111) 01/04/19 07:55 Carbon Dioxide 24 mmol/L (22-32) 01/04/19 07:55 Anion Gap 8 mmol/L (2-11) 01/04/19 07:55 BUN 57 mg/dL (6-24) H 01/05/19 06:10 Creatinine 1.62 mg/dL (0.67-1.17) H 01/05/19 06:10 Est GFR ( Amer) 49.7 (>60) 01/05/19 06:10 Est GFR (Non-Af Amer) 41.1 (>60) 01/05/19 06:10 BUN/Creatinine Ratio 31.6 (8-20) H 01/04/19 07:55 Glucose 162 mg/dL (70-100) H 01/04/19 07:55 POC Glucose (mg/dL) 209 mg/dL (70-100) H 01/05/19 12:06 Glucose Meter Confirm 392 mg/dL (70-100) H 01/02/19 16:55 Hemoglobin A1c 6.9 % (4.0-5.6) H 12/30/18 12:34 Lactic Acid 0.9 mmol/L (0.5-2.0) 12/30/18 12:34 Calcium 8.4 mg/dL (8.6-10.3) L 01/04/19 07:55 Magnesium 2.0 mg/dL (1.9-2.7) 12/31/18 04:52 Total Bilirubin 0.60 mg/dL (0.2-1.0) 12/30/18 12:34 AST 18 U/L (13-39) 12/30/18 12:34 ALT 17 U/L (7-52) 12/30/18 12:34 Alkaline Phosphatase 124 U/L (34-104) H 12/30/18 12:34 Total Creatine Kinase 45 U/L (10-223) 12/30/18 12:34 CK-MB (CK-2) 3.1 ng/mL (0.6-6.3) 12/30/18 12:34 Troponin I 0.01 ng/mL (<0.04) 12/30/18 12:34 C-Reactive Protein 99.20 mg/L (<8.01) H 12/30/18 12:34 B-Natriuretic Peptide 590 pg/mL (<=100) H 12/30/18 12:34 Total Protein 7.2 g/dL (6.4-8.9) 12/30/18 12:34 Albumin 3.5 g/dL (3.2-5.2) 12/30/18 12:34 Globulin 3.7 g/dL (2-4) 12/30/18 12:34 Albumin/Globulin Ratio 0.9 (1-3) L 12/30/18 12:34 Urine Color Yellow 12/30/18 13:04 Urine Appearance Cloudy 12/30/18 13:04 Urine pH 5.0 (5-9) 12/30/18 13:04 Ur Specific [place] 1.011 (1.010-1.030) 12/30/18 13:04 Urine Protein Negative (Negative) 12/30/18 13:04 Urine Ketones Negative (Negative) 12/30/18 13:04 Urine Blood 1+ (Negative) A 12/30/18 13:04 Urine Nitrate Negative (Negative) 12/30/18 13:04 Urine Bilirubin Negative (Negative) 12/30/18 13:04 Urine Urobilinogen Negative (Negative) 12/30/18 13:04 Ur Leukocyte Esterase 3+ (Negative) A 12/30/18 13:04 Urine WBC (Auto) 3+(>20/hpf) (Absent) A 12/30/18 13:04 Urine RBC (Auto) 1+(3-5/hpf) (Absent) A 12/30/18 13:04 Ur Squamous Epith Cells Present (Absent) A 12/30/18 13:04 Urine Bacteria Absent (Absent) 12/30/18 13:04 Urine Glucose Negative (Negative) 12/30/18 13:04 Vancomycin Trough 15.2 mcg/mL 01/05/19 06:10
--- NOTE | 2019-01-05 14:00 | PN ---
Subjective Date of Service: 01/05/19 Interval History: HD 7 on 01/05 83M PMH chronic respiratory failure on home O2(3L), COPD, CVA w residual L sided weakness, CAD(s/p CABG), severe , IDDM, TAMICA/OHS on BiPAP, HTN, BPH, skin cancer presented w/ likely COPD Exacerbation and L 5th digit soft tissue infection. No acute overnight events. VS stable; on 3 L of oxygen Did not have any complaint . He passed out when he was defecating. VS stable at that time. EKG showed AF without RVR. No chest pain, difficulty in breathing, palpitations. Objective Active Medications: Acetaminophen (Tylenol Tab*) 650 mg PO Q6H PRN PRN Reason: PAIN - MILD Last Admin: 01/04/19 09:09 Dose: 650 mg Albuterol/Ipratropium (Duoneb (Albuterol 2.5 Mg/Ipratropium 0.5 Mg)) 1 neb INH [id number] AWAKE PRN PRN Reason: sob/wheexing Atorvastatin Calcium (Lipitor*) 40 mg PO DAILY [facility] Last Admin: 01/05/19 10:11 Dose: 40 mg Carbamide Peroxide (Debrox 6.5% Otic*) 5 drop BOTH EARS BID [facility] Last Admin: 01/05/19 12:34 Dose: 5 drop Carboxymethylcellulose Sodium (Celluvisc 1% Opth*) 1 drop BOTH EYES Q2HR SISI Last Admin: 01/05/19 12:34 Dose: 1 drop Cholecalciferol (Vitamin D Tab*) 1,000 units PO DAILY [facility] Last Admin: 01/05/19 10:11 Dose: 1,000 units Dextrose (Dextrose 50% Vial 50 Ml*) 25 ml IV PUSH .FOR FS < 60 - SS PRN PRN Reason: FS < 60 Finasteride (Proscar Tab*) 5 mg PO DAILY [facility] Last Admin: 01/05/19 10:10 Dose: 5 mg Furosemide (Lasix Tab*) 20 mg PO BID [facility] Last Admin: 01/05/19 10:11 Dose: 20 mg Guaifenesin (Robitussin*) 5 ml PO Q4H PRN PRN Reason: COUGH Hydroxyzine HCl (Atarax Tab*) 10 mg PO TID PRN PRN Reason: ANXIETY Piperacillin Sod/Tazobactam (Sod 3.375 gm/ Sodium Chloride) 100 mls @ 25 mls/ hr IVPB Q8H [facility] Last Admin: 01/05/19 05:11 Dose: 25 mls/hr Insulin Glargine (Lantus(*)) 20 units SUBCUT BID [facility] Last Admin: 01/05/19 12:35 Dose: 20 units Insulin Human Lispro (Humalog*) 0 units SUBCUT ACHS [facility]; Protocol Last Admin: 01/05/19 12:34 Dose: 6 units Liraglutide (Victoza (Nf)) 1.2 mg SUBCUT DAILY [facility] Last Admin: 01/05/19 09:00 Dose: Not Given Lisinopril (Prinivil Tab*) 5 mg PO DAILY [facility] Last Admin: 01/05/19 10:11 Dose: 5 mg Metoprolol Tartrate (Lopressor Tab*) 25 mg PO BID [facility] Last Admin: 01/05/19 12:21 Dose: Not Given Mometasone Furoate (Asmanex 220 Mcg Mdi *) 2 puff INH BID [facility]; Protocol Last Admin: 01/05/19 08:36 Dose: 2 puff Pantoprazole Sodium (Protonix Tab*) 40 mg PO QAM [facility] Last Admin: 01/05/19 10:13 Dose: 40 mg Pharmacy Consult (Zosyn Per Pharmacy*) 1 note FOLLOW UP .ZOSYN PER PHARMACY [facility] Senna (Senokot 8.6 Mg Tab*) 2 tab PO BID PRN PRN Reason: CONSTIPATION Sertraline HCl (Zoloft*) 100 mg PO QAM [facility] Last Admin: 01/05/19 10:11 Dose: 100 mg Vital Signs - 8 hr 01/05/19 01/05/19 01/05/19 08:40 10:00 11:21 Pulse Rate 74 59 Respiratory 18 20 20 Rate Blood Pressure 109/86 110/70 (mmHg) O2 Sat by Pulse 97 94 100 Oximetry Oxygen Devices in Use Now: Nasal Cannula Exam: Patient is sitting on a bed with no acute distress and has nasal canula HEENT: Has scar on scalp; black scab on nose adn he only has his lower 4 teeth. Lungs: Clear with no added sound. Heart: S1/S2 heard with murmur. Abdomen: Soft, nondistended and nontender. NOrmal BS heard Extremitites: discoloration on left toe with laceration on plantar aspect; mild tenderness present. Neuro: Alert, conscious and oriented. Left facial droop and ptosis present. Result Diagrams: 01/05/19 06:10 01/05/19 06:10 Microbiology and Other Data: Microbiology 12/30/18 17:07 Aerobic Blood Culture - Preliminary Blood Venous No Growth Day 2 Anaerobic Blood Culture - Preliminary No Growth Day 2 12/30/18 17:00 Aerobic Blood Culture - Preliminary Blood Venous No Growth Day 2 Anaerobic Blood Culture - Preliminary No Growth Day 2 12/31/18 12:00 Skin and Soft Tissue MRSA/MSSA (PCR - Final Foot Left Mrsa Positive S.aureus Positive Gram Stain - Final 12/30/18 13:04 Urine Culture - Final Urine No Growth (<1,000 CFU/mL) 12/31/18 04:20 Legionella Urinary Antigen - Final Urine Negative Legionella Antigen Streptococcus pneumoniae Ag Screen - Final Negative S. pneumo Antigen Assess/Plan/Problems-Billing Assessment: 83M PMH chronic respiratory failure on home O2(3L), COPD, CVA w residual L sided weakness, CAD(s/p CABG), severe , IDDM, TAMICA/OHS on BiPAP, HTN, BPH, skin cancer presented w/ likely COPD Exacerbation and L 5th digit soft tissue infection. On vanc and zosyn( day 6 on 01/05) - Patient Problems (1) Cellulitis of fifth toe of left foot Current Visit: Yes Status: Acute Code(s): L03.032 - CELLULITIS OF LEFT TOE SNOMED Code(s): 06019563 Comment: - Hx of trauma with pain afterwards - Imaging negative for fracture. MRI possible early OM, ortho feels on exam dry gangrene, washout done at bedside 01/01, no definitive operation - possible amputation tomorrow- ortho following - On iv zosyn- we will continue this as per ID recommendation - vanc stopped on 01/04 (2) Preoperative examination Current Visit: Yes Status: Acute Code(s): Z01.818 - ENCOUNTER FOR OTHER PREPROCEDURAL EXAMINATION SNOMED Code(s): 634291282 Comment: Patient has a history of CAD, AFib, CVA, CKD, COPD, CHronic respiratory Failure on home oxygen and BiPAP. Cardio: He doesnot complain of chest pain at ppresent. He has SOB on exertion. He has history of CAD with CABG, aortic stenosis, Atrial fibrillation and diastolic dysfunction. He has CKD with creatinine of 1.6. He is diabetic requiring insulin and liraglutide. This puts him on Class IV of RCRI class which carries 15% mortality or morbidity with major adverse cardiac events like MD, heart Failure, ventricular fibrillation or cardiac arrest. Pulmonary: He has history of Chronic respiratory failure requiring oxygen and BiPAP, COPD, Obesity. He falls on ASA class III. He is low risk according to ARISCAT risk score-low risk;1.6% risk of perioperative pulmonary compliaction like respiratory failure, pneumonia, brochospasm; but it underpredicts his risk given his oxygen saturation is maintained on 3L of oxygen and on BiPAP. MET's- Patient can take care of self like eat, dress or use toilet. He is on oxygen at home. Diabetes- patient is using insulin and liraglutide. His HbA1C is 6.9. INR is 1.85. We have stopped his eliquis from today morning. He got one dose today morning. Based on this patient has increased risk of perioperative complications and patient will have less risk if short duration of anesthesia or regional block. Patient has been optimized for surgery. (3) COPD exacerbation Current Visit: No Status: Acute Priority: High Onset Date: 10/05/13 Code (s): J44.1 - CHRONIC OBSTRUCTIVE PULMONARY DISEASE W (ACUTE) EXACERBATION SNOMED Code(s): 993758223 Comment: -improved - Worsening SOB and increase oxygen requirement and diffuse wheezes on presentation - completed steroid burst (4) Acute and chronic respiratory failure with hypoxia Current Visit: No Status: Acute Code(s): J96.21 - ACUTE AND CHRONIC RESPIRATORY FAILURE WITH HYPOXIA SNOMED Code(s): 97784737 Comment: - Uses 3L of oxygen at home, BIPAP dependent now on 3L of o2 and BiPAP (5) Heart failure with preserved ejection fraction Current Visit: Yes Status: Acute Code(s): I50.30 - UNSPECIFIED DIASTOLIC ( CONGESTIVE) HEART FAILURE SNOMED Code(s): 134470291 Comment: - EF 50-55%; last echo in 03/10/2018, repeat echo on 01/03/2019 showed EF of 55- 60% with severe LA dilatation. - On furosemide. - No signs of volume overload at present (6) Supratherapeutic INR Current Visit: Yes Status: Acute Code(s): R79.1 - ABNORMAL COAGULATION PROFILE SNOMED Code(s): 778845498 Comment: - He was on warfarin 3 mg everyday except 6 mg on thursday, thursday and thursday -INR today is 1.85 - started on eliquis 2.5 mg -will hold for surgey tomorrow. (7) Diabetes mellitus Current Visit: No Status: Acute Code(s): E11.9 - TYPE 2 DIABETES MELLITUS WITHOUT COMPLICATIONS SNOMED Code(s): 94479005 Comment: - blood glucose on higher side; ppt by steroid - c/w lantus and SSI and victoza - He is taking 30 U BID lantus at home; although his prescription says 25 U daily. - His Hba1c is 6.9, given his comorbidities his Hba1c goal is 7-8. - He is now on 20 U lantus bid -We will decrease his insulin to 10 U till his surgery. (8) History of CVA (cerebrovascular accident) Current Visit: No Status: Acute Priority: High Code(s): Z86.73 - PRSNL HX OF TIA (TIA), AND CEREB INFRC W/O RESID DEFICITS SNOMED Code(s): 472875809 Comment: - secondary prevention with asa and statin - asa on hold because of his high inr (9) Hypertension Current Visit: No Status: Acute Priority: High Code(s): I10 - ESSENTIAL ( PRIMARY) HYPERTENSION SNOMED Code(s): 58851647 Comment: - Continue bb and lisinopril (10) Severe aortic stenosis Current Visit: No Status: Acute Code(s): I35.0 - NONRHEUMATIC AORTIC (VALVE ) STENOSIS SNOMED Code(s): 96386355 Comment: - Aortic valve mean gradient presuure is 34 on previous echo - he was managed medically before; history obtained from him and aide and asked his PCP, ? of distant AVR, - His echo on 01/03/2019 showed EF of 55-60% with diastolic dysfxn and LA dilatation. Moderate aortic stenosis with mean systolic gradient is 8.0 mm Hg. (11) Afib Current Visit: No Status: Acute Priority: High Code(s): I48.91 - UNSPECIFIED ATRIAL FIBRILLATION SNOMED Code(s): 46857768 Comment: - rate controlled with metoprolol 25 mg - AC on hold. (12) DVT prophylaxis Current Visit: No Status: Acute Priority: High Code(s): BCW9017 - SNOMED Code(s): 880833000 Comment: - on hold for his surgery (13) DNR (do not resuscitate) Current Visit: Yes Status: Acute Comment: - Overall poor prognosis given comorbidites if toe wound is to become much worse Status and Disposition: Medicine inpatient ortho following possible dc tomorrow; PT says he needs continued PT and benefits from rehab. Attending: Arian Sr Attestation Documenting Resident: Judy Headley Supervising Physician: Jaylon Sr Attestation: This service has been performed in part by a resident under the direction of a teaching physician.I, Jaylon Sr, performed the service, or was physically present during the critical, or sahni portions of the service, furnished by the resident. I participated in the management of the patient.
[2019-01-06] MEDS: Carboxymethylcellulos 1% OPTH* 1 DROP AMP BOTH EYES SCH ×12 (00:29→22:54)
[2019-01-06] MEDS: Piperacillin/Tazobac ADVAN(*) 3.375 GM in NS 0.9% 100 ML* 100 ML IVPB SCH ×3 (05:37→22:19)
--- NOTE | 2019-01-06 06:49 | PN ---
Subjective Date of Service: 01/06/19 Interval History: HD 8 on 01/06 83M PMH chronic respiratory failure on home O2(3L), COPD, CVA w residual L sided weakness, CAD(s/p CABG), severe , IDDM, TAMICA/OHS on BiPAP, HTN, BPH, skin cancer presented w/ likely COPD Exacerbation and L 5th digit soft tissue infection. Amputation of toe today No acute overnight events. VS stable; Patient does not have complaint at present. Concerned about being hungry Objective Active Medications: Acetaminophen (Tylenol Tab*) 650 mg PO Q6H PRN PRN Reason: PAIN - MILD Last Admin: 01/04/19 09:09 Dose: 650 mg Albuterol/Ipratropium (Duoneb (Albuterol 2.5 Mg/Ipratropium 0.5 Mg)) 1 neb INH [id number] AWAKE PRN PRN Reason: sob/wheexing Atorvastatin Calcium (Lipitor*) 40 mg PO DAILY [facility] Last Admin: 01/05/19 10:11 Dose: 40 mg Carbamide Peroxide (Debrox 6.5% Otic*) 5 drop BOTH EARS BID [facility] Last Admin: 01/05/19 22:12 Dose: 5 drop Carboxymethylcellulose Sodium (Celluvisc 1% Opth*) 1 drop BOTH EYES Q2HR [facility] Last Admin: 01/06/19 05:34 Dose: Not Given Cholecalciferol (Vitamin D Tab*) 1,000 units PO DAILY [facility] Last Admin: 01/05/19 10:11 Dose: 1,000 units Dextrose (Dextrose 50% Vial 50 Ml*) 25 ml IV PUSH .FOR FS < 60 - SS PRN PRN Reason: FS < 60 Finasteride (Proscar Tab*) 5 mg PO DAILY [facility] Last Admin: 01/05/19 10:10 Dose: 5 mg Furosemide (Lasix Tab*) 20 mg PO BID [facility] Last Admin: 01/05/19 22:12 Dose: 20 mg Guaifenesin (Robitussin*) 5 ml PO Q4H PRN PRN Reason: COUGH Hydroxyzine HCl (Atarax Tab*) 10 mg PO TID PRN PRN Reason: ANXIETY Piperacillin Sod/Tazobactam (Sod 3.375 gm/ Sodium Chloride) 100 mls @ 25 mls/ hr IVPB Q8H [facility] Last Admin: 01/06/19 05:37 Dose: 25 mls/hr Insulin Glargine (Lantus(*)) 10 units SUBCUT BID [facility] Last Admin: 01/05/19 22:10 Dose: 10 units Insulin Human Lispro (Humalog*) 0 units SUBCUT ACHS [facility]; Protocol Last Admin: 01/05/19 22:11 Dose: 2 units Liraglutide (Victoza (Nf)) 1.2 mg SUBCUT DAILY [facility] Last Admin: 01/05/19 09:00 Dose: Not Given Lisinopril (Prinivil Tab*) 5 mg PO DAILY [facility] Last Admin: 01/05/19 10:11 Dose: 5 mg Metoprolol Tartrate (Lopressor Tab*) 25 mg PO BID [facility] Last Admin: 01/05/19 22:11 Dose: 25 mg Mometasone Furoate (Asmanex 220 Mcg Mdi *) 2 puff INH BID [facility]; Protocol Last Admin: 01/05/19 19:06 Dose: 2 puff Pantoprazole Sodium (Protonix Tab*) 40 mg PO QAM [facility] Last Admin: 01/05/19 10:13 Dose: 40 mg Pharmacy Consult (Zosyn Per Pharmacy*) 1 note FOLLOW UP .ZOSYN PER PHARMACY [facility] Senna (Senokot 8.6 Mg Tab*) 2 tab PO BID PRN PRN Reason: CONSTIPATION Sertraline HCl (Zoloft*) 100 mg PO QAM [facility] Last Admin: 01/05/19 10:11 Dose: 100 mg Vital Signs - 8 hr 01/06/19 01/06/19 00:19 04:06 Temperature 97.1 F 97 F Pulse Rate 50 Respiratory 16 16 Rate Blood Pressure 114/75 101/58 (mmHg) O2 Sat by Pulse 95 100 Oximetry Oxygen Devices in Use Now: Nasal Cannula Exam: Patient is sitting on a bed with no acute distress and has nasal canula HEENT: Has scar on scalp; black scab on nose adn he only has his lower 4 teeth. Lungs: Clear with no added sound. Heart: S1/S2 heard with murmur. Abdomen: Soft, nondistended and nontender. NOrmal BS heard Extremitites: discoloration on left toe with laceration on plantar aspect; mild tenderness present. Neuro: Alert, conscious and oriented. Left facial droop and ptosis present. Result Diagrams: 01/06/19 06:24 01/06/19 06:31 Microbiology and Other Data: Microbiology 12/30/18 17:07 Aerobic Blood Culture - Preliminary Blood Venous No Growth Day 2 Anaerobic Blood Culture - Preliminary No Growth Day 2 12/30/18 17:00 Aerobic Blood Culture - Preliminary Blood Venous No Growth Day 2 Anaerobic Blood Culture - Preliminary No Growth Day 2 12/31/18 12:00 Skin and Soft Tissue MRSA/MSSA (PCR - Final Foot Left Mrsa Positive S.aureus Positive Gram Stain - Final 12/30/18 13:04 Urine Culture - Final Urine No Growth (<1,000 CFU/mL) 12/31/18 04:20 Legionella Urinary Antigen - Final Urine Negative Legionella Antigen Streptococcus pneumoniae Ag Screen - Final Negative S. pneumo Antigen Assess/Plan/Problems-Billing Assessment: 83M PMH chronic respiratory failure on home O2(3L), COPD, CVA w residual L sided weakness, CAD(s/p CABG), severe , IDDM, TAMICA/OHS on BiPAP, HTN, BPH, skin cancer presented w/ likely COPD Exacerbation and L 5th digit soft tissue infection. On zosyn( day 7 on 01/06) - Patient Problems (1) Cellulitis of fifth toe of left foot Current Visit: Yes Status: Acute Code(s): L03.032 - CELLULITIS OF LEFT TOE SNOMED Code(s): 49609572 Comment: -amputation today -On Iv zosyn day 7 on 01/06 (2) COPD exacerbation Current Visit: No Status: Acute Priority: High Onset Date: 10/05/13 Code (s): J44.1 - CHRONIC OBSTRUCTIVE PULMONARY DISEASE W (ACUTE) EXACERBATION SNOMED Code(s): 005807506 Comment: -improved - Worsening SOB and increase oxygen requirement and diffuse wheezes on presentation - completed steroid burst (3) Acute and chronic respiratory failure with hypoxia Current Visit: No Status: Acute Code(s): J96.21 - ACUTE AND CHRONIC RESPIRATORY FAILURE WITH HYPOXIA SNOMED Code(s): 82388763 Comment: - Uses 3L of oxygen at home, BIPAP dependent now on 3L of o2 and BiPAP (4) Heart failure with preserved ejection fraction Current Visit: Yes Status: Acute Code(s): I50.30 - UNSPECIFIED DIASTOLIC ( CONGESTIVE) HEART FAILURE SNOMED Code(s): 886588012 Comment: - EF 50-55%; last echo in 03/10/2018, repeat echo on 01/03/2019 showed EF of 55- 60% with severe LA dilatation. - On furosemide. - No signs of volume overload at present (5) Supratherapeutic INR Current Visit: Yes Status: Acute Code(s): R79.1 - ABNORMAL COAGULATION PROFILE SNOMED Code(s): 218954870 Comment: - He was on warfarin 3 mg everyday except 6 mg on thursday, thursday and thursday -INR today is 1.85 - started on eliquis 2.5 mg -will hold for surgery (6) Diabetes mellitus Current Visit: No Status: Acute Code(s): E11.9 - TYPE 2 DIABETES MELLITUS WITHOUT COMPLICATIONS SNOMED Code(s): 45726381 Comment: -Insulin dose decreased to 10 U as he was NPO -held this morning as his blood glucose was 80. -will continue insulins lantus 20 U BId after he resumes normal diet. (7) History of CVA (cerebrovascular accident) Current Visit: No Status: Acute Priority: High Code(s): Z86.73 - PRSNL HX OF TIA (TIA), AND CEREB INFRC W/O RESID DEFICITS SNOMED Code(s): 965986392 Comment: - secondary prevention with asa and statin - asa on hold because of his high inr -will start from tomorrow. (8) Hypertension Current Visit: No Status: Acute Priority: High Code(s): I10 - ESSENTIAL ( PRIMARY) HYPERTENSION SNOMED Code(s): 60506378 Comment: - Continue bb and lisinopril (9) Severe aortic stenosis Current Visit: No Status: Acute Code(s): I35.0 - NONRHEUMATIC AORTIC (VALVE ) STENOSIS SNOMED Code(s): 91404103 Comment: - Aortic valve mean gradient presuure is 34 on previous echo - he was managed medically before; history obtained from him and aide and asked his PCP, ? of distant AVR, - His echo on 01/03/2019 showed EF of 55-60% with diastolic dysfxn and LA dilatation. Moderate aortic stenosis with mean systolic gradient is 8.0 mm Hg. (10) Afib Current Visit: No Status: Acute Priority: High Code(s): I48.91 - UNSPECIFIED ATRIAL FIBRILLATION SNOMED Code(s): 80638716 Comment: - rate controlled with metoprolol 25 mg - AC on hold. (11) DVT prophylaxis Current Visit: No Status: Acute Priority: High Code(s): GLU0326 - SNOMED Code(s): 003088960 Comment: - on hold for his surgery (12) DNR (do not resuscitate) Current Visit: Yes Status: Acute Comment: - Overall poor prognosis given comorbidites if toe wound is to become much worse Status and Disposition: Medicine inpatient ortho following possible dc tomorrow; PT says he needs continued PT and benefits from rehab. Attending: Arian Sr Attestation Documenting Resident: Judy Headley Supervising Physician: Jaylon Sr Attestation: This service has been performed in part by a resident under the direction of a teaching physician.I, Jaylon Sr, performed the service, or was physically present during the critical, or sahni portions of the service, furnished by the resident. I participated in the management of the patient.
[2019-01-06 06:50] LABS: Hematocrit 35 % (42-52); Hemoglobin 11.9 g/dL (14.0-18.0); Mean Corpuscular HGB Conc 34 g/dL (31-36); Mean Corpuscular Hemoglobin 28 pg (27-31); Mean Corpuscular Volume 82 fL (80-94); Mean Platelet Volume 7.6 fL (7.4-10.4); Platelet Count 254 10^3/uL (150-450); Red Blood Count 4.23 10^6 /uL (4.18-5.48); Red Cell Distribution Width 15 % (10-15); White Blood Count 16.5 10^3/uL (3.5-10.8)
[2019-01-06 07:06] LABS: BUN/Creatinine Ratio 31.9 (8-20); Calcium 8.5 mg/dL (8.6-10.3); EGFR African American 50.4 (>60); EGFR Non-African American 41.7 (>60); Potassium 3.5 mmol/L (3.5-5.0)
[2019-01-06] MEDS: Mometasone 220 MCG MDI INH SCH ×2 (07:41→19:29)
[2019-01-06] MEDS: Atorvastatin* 40 MG TAB PO SCH (07:50)
[2019-01-06] MEDS: Finasteride TAB* 5 MG PO SCH (07:51)
[2019-01-06] MEDS: Insulin GLARGINE(*) 1 UNITS UNIT SUBCUT SCH ×2 (07:51→20:23)
[2019-01-06] MEDS: Cholecalciferol TAB* 1000 UNITS PO SCH (07:51)
[2019-01-06] MEDS: Liraglutide (NF) 18 MG/3 ML SUBCUT SCH (07:52)
[2019-01-06] MEDS: Insulin LISPRO* 1 UNITS UNIT SUBCUT SCH ×4 (08:05→20:23)
[2019-01-06 08:33] LABS: ABS Eosinophils 0.3 10^3/ul (0-0.6); ABS Lymphocytes 1.3 10^3/ul (1.0-4.8); ABS Monocytes 1.5 10^3/ul (0-0.8); ABS Neutrophils 13.2 10^3/ul (1.5-7.7); Eosinophil % 2.1 %; Lymphocyte % 8.1 %; Nucleated Red Blood Cells % 0.2
[2019-01-06] MEDS: Furosemide TAB* 20 MG PO SCH ×2 (08:42→20:21)
[2019-01-06] MEDS: Metoprolol Tartrate TAB* 25 MG PO SCH ×3 (08:43→20:24)
[2019-01-06] MEDS: Lisinopril TAB* 5 MG PO SCH (08:54)
[2019-01-06] MEDS: Sertraline* 100 MG TAB PO SCH (09:04)
[2019-01-06] MEDS: Carbamide Peroxide 6.5% OTIC* 15 ML BTL BOTH EARS SCH ×2 (09:04→20:23)
[2019-01-06] MEDS: Pantoprazole TAB * 40 MG TAB PO SCH (09:05)
[2019-01-06] MEDS ORDERED: Buffered Lidocaine 1% SYRIN* 1 ML/SYRINGE INTRADERM ONE (11:37)
[2019-01-06] MEDS ORDERED: Lactated Ringers 1000 ML Bag* 1,000 ML IV SCH (12:00)
[2019-01-06] MEDS ORDERED: Bupivacaine 0.5%* 50 ML MDV VIAL ONE (13:03)
[2019-01-06] MEDS ORDERED: Lidocaine 2% PF * 5 ML VIAL ONE (13:32)
[2019-01-06] MEDS ORDERED: Propofol* 10 MG/ML 20 ML BTL ONE (13:32)
[2019-01-06] MEDS ORDERED: KETAMINE HCL* 50 MG/ML 10 ML VIAL ONE (13:32)
[2019-01-06] MEDS ORDERED: fentaNYL* 50 MCG/ML 2 ML VIAL (100 MCG VIAL) ONE (13:32)
[2019-01-06] MEDS ORDERED: Lidocaine 1% INJ* 10 MG/ML 30 ML SDV ONE (13:35)
[2019-01-06] MEDS ORDERED: Naloxone* 0.4 MG/ML 1 ML VIAL IV PRN (14:07)
[2019-01-06] MEDS ORDERED: Levalbuterol 0.63MG/3ML NEB* UNIT OF USE INH PRN (14:07)
--- NOTE | 2019-01-06 15:13 | OP ---
Operative Report - Blank - Operative Report Date of Operation: 01/06/19 Note: PATIENT: Foster Escamilla DATE OF : 1935 DATE OF SURGERY: 01/06/2019 SURGEON: Carlos Reynolds MD PROJECT DIRECTOR: THERESA [place], whos assistance was necessary for positioning, retraction, help with instrumentation, and closure. ANESTHESIOLOGIST: Dr. Parry PREOPERATIVE DIAGNOSIS: Left lateral forefoot infection with 5th toe wet gangrene and osteomyelitis POSTOPERATIVE DIAGNOSIS: Left lateral forefoot infection with 5th toe wet gangrene and osteomyelitis OPERATION: Left foot partial 5th ray amputation. ANESTHESIA: MAC IMPLANTS: none TOURNIQUET TIME: Less than one hour with an ankle Esmarch tourniquet. SPECIMENS: 5th toe to pathology. ESTIMATED BLOOD LOSS: minimal COMPLICATIONS: none STATUS: Stable from the operating room to the recovery room. INDICATIONS FOR PROCEDURE: Foster has the above problem. Both operative and non operative treatment alternatives were reviewed. Further, the nature and risks of surgery were reviewed in careful detail. Our discussions regarding the risks of surgery included, but were not limited to, wound infection, wound problems, nerve injury , neuroma, RSD, persistent symptoms, blood clot, persistent or worsening infection, failure of the surgery, need for further amputation, and even the chance of catastrophic complication. DESCRIPTION OF PROCEDURE: The patient was seen in the preoperative holding unit and informed written consent was obtained. The appropriate extremity was marked. The patient was then brought to the operating room and carefully positioned on the operating room table. Anesthesia was induced. All bony prominences were padded with great care. A chlorhexidine based pre-scrub was performed followed by a chloraprep prep and drape in standard sterile fashion. A surgical safety pause was then conducted in which we confirmed the appropriate patient, extremity, planned procedure, availability of equipment, indication and administration of antibiotics, and DVT prophylaxis in the form of a compression boot on the non- surgical extremity. I began with application of an ankle Esmarch tourniquet. Care was taken not to compress the infected area. I then made a lateral foot longitudinal incision. The incision was carried distally in a circumferential manner around the fifth toe. I maintained as much healthy soft-tissue as was possible. The 5th toe was removed. The fifth metatarsal was exposed. I dissected around the fifth metatarsal to free soft tissue attachments. A small oscillating saw was then used to osteotomize the 5th metatarsal about half way along its length. The osteotomy was beveled so that there were no sharp edges. The 5th metatarsal was sent to pathology. Nonviable soft tissue was then sharply excised with a 15 blade scalpel. Once this debridement was taken back to healthy-appearing tissue , the wound was copiously irrigated with sterile saline. The wound was closed in layers utilizing 3-0 monocryl for the deep dermal layer and 2-0 prolene for the skin. A sterile dressing was then applied. The patient was then awakened from anesthesia and transferred to the recovery room in stable condition. There were no complications. All needle and sponge counts were correct at the end of the case. ATTESTATION: I attest I was present and scrubbed and performed the critical portions of the procedure myself. POSTOPERATIVE PLAN: Follow up will be in two weeks for a wound check, but we may leave the sutures in for longer. Antibiotic treatment will be guided by the infectious disease service.
[2019-01-06] MEDS ORDERED: Ondansetron INJ* 2 MG/ML VIAL IV PRN (15:29)
[2019-01-06] MEDS ORDERED: Dextrose 50% VIAL 50 ml IV PRN (15:34)
--- NOTE | 2019-01-06 15:47 | PN ---
Progress Note - Progress Note Date of Service: 01/06/19 SOAP: Subjective: CC: Left 5th toe infection HPI: Mr. Escamilla is an 83 yo male with PMH significant for DM2, diabetic neuropathy, chronic respiratory failure on home O2, COPD, CVA with residual left sided weakness, CAD (s/p CABG), severe , DM2, TAMICA, obesity hypoventilation syndrome , HTN, BPH, and skin cancer. Has just returned to the unit from surgery, s/p left 5th toe amputation. Denies fever, chills, vomiting, or diarrhea. He has some nausea postop. Denies pain. Objective: Vital Signs 01/06/19 01/06/19 01/06/19 14:35 14:46 15:15 Temperature 99.5 F Pulse Rate 83 75 72 Respiratory 16 Rate Blood Pressure 137/84 132/71 113/50 (mmHg) O2 Sat by Pulse 95 88 95 Oximetry Physical Exam: General: NAD, laying in bed Neurological: Drowsy, oriented to person and place HEENT: Moist MM, no thrush, poor dentition (4 teeth present on bottom) Cardiovascular: Heart rate regular, systolic murmur grade 3/6 Respiratory: Lung sounds clear Abdominal: Bowel sounds present; ABD large, soft, and non tender Skin: Surgical dressing to left LE; clean, dry and intact. There is a skin lesion to his nose ( Pt reports this is secondary to skin cancer) Laboratory Results - last 24 hr 01/06/19 01/06/19 01/06/19 06:24 06:31 07:33 WBC 16.5 H RBC 4.23 Hgb 11.9 L Hct 35 L MCV 82 MCH 28 MCHC 34 RDW 15 Plt Count 254 MPV 7.6 Neut % (Auto) 80.1 Lymph % (Auto) 8.1 [place] % (Auto) 9.4 Eos % (Auto) 2.1 Baso % (Auto) 0.3 Absolute Neuts (auto) 13.2 H Absolute Lymphs (auto) 1.3 Absolute Monos (auto) 1.5 H Absolute Eos (auto) 0.3 Absolute Basos (auto) 0.0 Absolute Nucleated RBC 0.0 Nucleated RBC % 0.2 Sodium 143 Potassium 3.5 Chloride 109 Carbon Dioxide 26 Anion Gap 8 BUN 51 H Creatinine 1.60 H Est GFR ( Amer) 50.4 Est GFR (Non-Af Amer) 41.7 BUN/Creatinine Ratio 31.9 H Glucose 60 L POC Glucose (mg/dL) 80 Calcium 8.5 L Microbiology 12/30/18 17:00 Aerobic Blood Culture - Final Blood Venous No Growth Day 5 Anaerobic Blood Culture - Final No Growth Day 5 12/30/18 17:07 Aerobic Blood Culture - Final Blood Venous No Growth Day 5 Anaerobic Blood Culture - Final No Growth Day 5 12/31/18 12:00 Skin and Soft Tissue MRSA/MSSA (PCR - Final Foot Left Mrsa Positive S.aureus Positive Gram Stain - Final Wound Culture - Final Enterobacter Cloacae Morganella Morganii Strep Agalactiae - (Group B) Streptococcus Anginosus Normal Vijay 12/30/18 13:04 Urine Culture - Final Urine No Growth (<1,000 CFU/mL) 12/31/18 04:20 Legionella Urinary Antigen - Final Urine Negative Legionella Antigen Streptococcus pneumoniae Ag Screen - Final Negative S. pneumo Antigen Assessment: 1. Left 5th toe cellulitis, myositis and at least skin necrosis. S/P left 5th toe amputation today. Wound cultures with enterobacter cloacae, morganella morganii, group B strep, strep anginosus, and normal vijay. Blood cultures with no growth on day 5. 2. Diabetes with neuropathy. 3. Severe . 4. COPD. With chronic hypoxic respiratory failure and obesity hypoventilation syndrome. 5. CKD, stage 4 6. Obesity. BMI 33.5 Plan: Continue Zosyn, day 7. Will plan to discharge on doxycycline 100 mg PO twice daily for 4 weeks and Keflex 500 mg po twice daily for 10 days. Will need to followup with ID outpatient after discharge, 1-2 weeks.
[2019-01-06] MEDS: Acetaminophen TAB* 325 MG PO PRN (20:22)
[2019-01-07] MEDS: Carboxymethylcellulos 1% OPTH* 1 DROP AMP BOTH EYES SCH ×3 (01:10→05:08)
[2019-01-07] MEDS ORDERED: traMADol TAB* 50 MG PO ONE (01:36)
[2019-01-07] MEDS: Piperacillin/Tazobac ADVAN(*) 3.375 GM in NS 0.9% 100 ML* 100 ML IVPB SCH ×3 (05:10→21:58)
[2019-01-07 05:21] LABS: ABS Eosinophils 0.4 10^3/ul (0-0.6); ABS Lymphocytes 1.3 10^3/ul (1.0-4.8); ABS Monocytes 1.2 10^3/ul (0-0.8); Eosinophil % 2.7 %; Hematocrit 34 % (42-52); Hemoglobin 11.3 g/dL (14.0-18.0); Mean Corpuscular HGB Conc 33 g/dL (31-36); Mean Corpuscular Hemoglobin 28 pg (27-31); Mean Corpuscular Volume 83 fL (80-94); Mean Platelet Volume 7.6 fL (7.4-10.4); Nucleated Red Blood Cells % 0.1; Platelet Count 227 10^3/uL (150-450); Red Blood Count 4.06 10^6 /uL (4.18-5.48); Red Cell Distribution Width 15 % (10-15); White Blood Count 13.9 10^3/uL (3.5-10.8)
[2019-01-07 05:26] LABS: INR 1.42 (0.82-1.09)
[2019-01-07] MEDS: Acetaminophen TAB* 325 MG PO PRN (05:30)
[2019-01-07 05:39] LABS: BUN/Creatinine Ratio 31.3 (8-20); C Reactive Protein 29.01 mg/L (<8.01); Calcium 8.3 mg/dL (8.6-10.3); EGFR African American 55.6 (>60); Potassium 3.7 mmol/L (3.5-5.0)
[2019-01-07] MEDS ORDERED: Carboxymethylcellulos 1% OPTH* 1 DROP AMP BOTH EYES PRN (06:35)
--- NOTE | 2019-01-07 06:36 | PN ---
Subjective Date of Service: 01/07/19 Interval History: HD 9 on 01/07 83M PMH chronic respiratory failure on home O2(3L), COPD, CVA w residual L sided weakness, CAD(s/p CABG), severe , IDDM, TAMICA/OHS on BiPAP, HTN, BPH, skin cancer presented w/ likely COPD Exacerbation and L 5th digit soft tissue infection. Amputation of left 5 toe( 0n 01/06) No acute overnight events VS stable Complains of left foot pain. No shortness of breath, chest pain or palpitation. Objective Active Medications: Acetaminophen (Tylenol Tab*) 650 mg PO Q6H PRN PRN Reason: PAIN - MILD Last Admin: 01/07/19 05:30 Dose: 650 mg Albuterol/Ipratropium (Duoneb (Albuterol 2.5 Mg/Ipratropium 0.5 Mg)) 1 neb INH [id number] AWAKE PRN PRN Reason: sob/wheexing Apixaban (Eliquis*) 2.5 mg PO BID [facility] Atorvastatin Calcium (Lipitor*) 40 mg PO DAILY [facility] Last Admin: 01/06/19 07:50 Dose: Not Given Carbamide Peroxide (Debrox 6.5% Otic*) 5 drop BOTH EARS BID [facility] Last Admin: 01/06/19 20:23 Dose: 5 drop Carboxymethylcellulose Sodium (Celluvisc 1% Opth*) 1 drop BOTH EYES Q2HR [facility] Last Admin: 01/07/19 05:08 Dose: Not Given Cholecalciferol (Vitamin D Tab*) 1,000 units PO DAILY [facility] Last Admin: 01/06/19 07:51 Dose: Not Given Dextrose (Dextrose 50% Vial 50 Ml*) 25 ml IV PUSH .FOR FS < 60 - SS PRN PRN Reason: FS < 60 Last Admin: 01/06/19 15:41 Dose: 25 ml Finasteride (Proscar Tab*) 5 mg PO DAILY [facility] Last Admin: 01/06/19 07:51 Dose: Not Given Furosemide (Lasix Tab*) 20 mg PO BID [facility] Last Admin: 01/06/19 20:21 Dose: 20 mg Guaifenesin (Robitussin*) 5 ml PO Q4H PRN PRN Reason: COUGH Hydroxyzine HCl (Atarax Tab*) 10 mg PO TID PRN PRN Reason: ANXIETY Piperacillin Sod/Tazobactam (Sod 3.375 gm/ Sodium Chloride) 100 mls @ 25 mls/ hr IVPB Q8H [facility] Last Admin: 01/07/19 05:10 Dose: 25 mls/hr Lactated Ringer's (Lactated Ringers 1000 Ml Bag*) 1,000 mls @ 33 mls/hr IV PER RATE [facility] Insulin Glargine (Lantus(*)) 20 units SUBCUT BID [facility] Last Admin: 01/06/19 20:23 Dose: 20 units Insulin Human Lispro (Humalog*) 0 units SUBCUT ACHS [facility]; Protocol Last Admin: 01/06/19 20:23 Dose: 12 units Liraglutide (Victoza (Nf)) 1.2 mg SUBCUT DAILY [facility] Last Admin: 01/06/19 07:52 Dose: Not Given Lisinopril (Prinivil Tab*) 5 mg PO DAILY [facility] Last Admin: 01/06/19 08:54 Dose: Not Given Metoprolol Tartrate (Lopressor Tab*) 25 mg PO BID [facility] Last Admin: 01/06/19 20:24 Dose: Not Given Mometasone Furoate (Asmanex 220 Mcg Mdi *) 2 puff INH BID [facility]; Protocol Last Admin: 01/06/19 19:29 Dose: 2 puff Ondansetron HCl (Zofran Inj*) 4 mg IV Q6H PRN PRN Reason: NAUSEA Pantoprazole Sodium (Protonix Tab*) 40 mg PO QAM [facility] Last Admin: 01/06/19 09:05 Dose: 40 mg Pharmacy Consult (Zosyn Per Pharmacy*) 1 note FOLLOW UP .ZOSYN PER PHARMACY [facility] Senna (Senokot 8.6 Mg Tab*) 2 tab PO BID PRN PRN Reason: CONSTIPATION Sertraline HCl (Zoloft*) 100 mg PO QAM [facility] Last Admin: 01/06/19 09:04 Dose: 100 mg Vital Signs - 8 hr 01/07/19 01/07/19 01/07/19 00:17 01:48 02:53 Temperature 97.3 F Pulse Rate 73 Respiratory 17 18 Rate Blood Pressure 99/84 (mmHg) O2 Sat by Pulse 99 100 Oximetry 01/07/19 04:16 Temperature Pulse Rate Respiratory 17 Rate Blood Pressure (mmHg) O2 Sat by Pulse Oximetry Oxygen Devices in Use Now: BiPAP Exam: Patient is sitting on a bed with no acute distress and has nasal canula HEENT: Has scar on scalp; black scab on nose adn he only has his lower 4 teeth. Lungs: Clear with no added sound. Heart: S1/S2 heard with murmur. Abdomen: Soft, nondistended and nontender. NOrmal BS heard Extremities: Dressing on left foot with no soaking. Neuro: Alert, conscious and oriented. Left facial droop and ptosis present. Result Diagrams: 01/07/19 04:42 01/07/19 04:42 Microbiology and Other Data: Microbiology 12/30/18 17:07 Aerobic Blood Culture - Preliminary Blood Venous No Growth Day 2 Anaerobic Blood Culture - Preliminary No Growth Day 2 12/30/18 17:00 Aerobic Blood Culture - Preliminary Blood Venous No Growth Day 2 Anaerobic Blood Culture - Preliminary No Growth Day 2 12/31/18 12:00 Skin and Soft Tissue MRSA/MSSA (PCR - Final Foot Left Mrsa Positive S.aureus Positive Gram Stain - Final 12/30/18 13:04 Urine Culture - Final Urine No Growth (<1,000 CFU/mL) 12/31/18 04:20 Legionella Urinary Antigen - Final Urine Negative Legionella Antigen Streptococcus pneumoniae Ag Screen - Final Negative S. pneumo Antigen Assess/Plan/Problems-Billing Assessment: 83M PMH chronic respiratory failure on home O2(3L), COPD, CVA w residual L sided weakness, CAD(s/p CABG), severe , IDDM, TAMICA/OHS on BiPAP, HTN, BPH, skin cancer presented w/ likely COPD Exacerbation and L 5th digit soft tissue infection; s/p left 5 toe amputation(on 01/06). On zosyn( day 8 on 01/07) - Patient Problems (1) Cellulitis of fifth toe of left foot Current Visit: Yes Status: Acute Code(s): L03.032 - CELLULITIS OF LEFT TOE SNOMED Code(s): 70375661 Comment: -s/p amputation on 01/06 -On IV zosyn day 8 on 01/07 -ortho following -ID following (2) COPD exacerbation Current Visit: No Status: Acute Priority: High Onset Date: 10/05/13 Code (s): J44.1 - CHRONIC OBSTRUCTIVE PULMONARY DISEASE W (ACUTE) EXACERBATION SNOMED Code(s): 439538055 Comment: -improved - Worsening SOB and increase oxygen requirement and diffuse wheezes on presentation - completed steroid burst (3) Acute and chronic respiratory failure with hypoxia Current Visit: No Status: Acute Code(s): J96.21 - ACUTE AND CHRONIC RESPIRATORY FAILURE WITH HYPOXIA SNOMED Code(s): 27989012 Comment: - Uses 3L of oxygen at home, BIPAP dependent now on 3L of o2 and BiPAP (4) Heart failure with preserved ejection fraction Current Visit: Yes Status: Acute Code(s): I50.30 - UNSPECIFIED DIASTOLIC ( CONGESTIVE) HEART FAILURE SNOMED Code(s): 968015874 Comment: - EF 50-55%; last echo in 03/10/2018, repeat echo on 01/03/2019 showed EF of 55- 60% with severe LA dilatation. - On furosemide. - No signs of volume overload at present (5) Supratherapeutic INR Current Visit: Yes Status: Acute Code(s): R79.1 - ABNORMAL COAGULATION PROFILE SNOMED Code(s): 579965518 Comment: - He was on warfarin 3 mg everyday except 6 mg on thursday, thursday and thursday -INR today is 1.85 - started on eliquis 2.5 mg -will hold for surgery (6) Diabetes mellitus Current Visit: No Status: Acute Code(s): E11.9 - TYPE 2 DIABETES MELLITUS WITHOUT COMPLICATIONS SNOMED Code(s): 65735513 Comment: -continue insulins lantus 20 U BId and SSI and victoza (7) History of CVA (cerebrovascular accident) Current Visit: No Status: Acute Priority: High Code(s): Z86.73 - PRSNL HX OF TIA (TIA), AND CEREB INFRC W/O RESID DEFICITS SNOMED Code(s): 111955682 Comment: - secondary prevention with asa and statin (8) Hypertension Current Visit: No Status: Acute Priority: High Code(s): I10 - ESSENTIAL ( PRIMARY) HYPERTENSION SNOMED Code(s): 06746561 Comment: - Continue bb and lisinopril (9) Severe aortic stenosis Current Visit: No Status: Acute Code(s): I35.0 - NONRHEUMATIC AORTIC (VALVE ) STENOSIS SNOMED Code(s): 45413411 Comment: - Aortic valve mean gradient presuure is 34 on previous echo - he was managed medically before; history obtained from him and aide and asked his PCP, ? of distant AVR, - His echo on 01/03/2019 showed EF of 55-60% with diastolic dysfxn and LA dilatation. Moderate aortic stenosis with mean systolic gradient is 8.0 mm Hg. (10) Afib Current Visit: No Status: Acute Priority: High Code(s): I48.91 - UNSPECIFIED ATRIAL FIBRILLATION SNOMED Code(s): 82647898 Comment: - rate controlled with metoprolol 25 mg - AC-eliquis (11) DVT prophylaxis Current Visit: No Status: Acute Priority: High Code(s): TMQ4550 - SNOMED Code(s): 275391616 Comment: - started on eliquis 2.5 mg (12) DNR (do not resuscitate) Current Visit: Yes Status: Acute Comment: - Overall poor prognosis given comorbidites if toe wound is to become much worse Status and Disposition: Medicine inpatient ortho following PT says he needs continued PT and benefits from rehab; refused rehab Attending: Arian Sr
[2019-01-07] MEDS: Mometasone 220 MCG MDI INH SCH ×2 (07:06→20:12)
[2019-01-07] MEDS: Insulin LISPRO* 1 UNITS UNIT SUBCUT SCH ×4 (08:59→21:58)
[2019-01-07] MEDS: Insulin GLARGINE(*) 1 UNITS UNIT SUBCUT SCH ×2 (09:23→21:58)
[2019-01-07] MEDS: Metoprolol Tartrate TAB* 25 MG PO SCH ×2 (09:24→21:59)
[2019-01-07] MEDS: Sertraline* 100 MG TAB PO SCH (09:24)
[2019-01-07] MEDS: Furosemide TAB* 20 MG PO SCH ×2 (09:24→21:59)
[2019-01-07] MEDS: Cholecalciferol TAB* 1000 UNITS PO SCH (09:25)
[2019-01-07] MEDS: Lisinopril TAB* 5 MG PO SCH (09:25)
[2019-01-07] MEDS: Atorvastatin* 40 MG TAB PO SCH (09:25)
[2019-01-07] MEDS: Aspirin EC TAB* 81 MG TAB.EC PO SCH (09:25)
[2019-01-07] MEDS: Finasteride TAB* 5 MG PO SCH (09:26)
[2019-01-07] MEDS: Pantoprazole TAB * 40 MG TAB PO SCH (09:26)
[2019-01-07] MEDS: Apixaban* 2.5 MG TAB PO SCH ×2 (09:26→21:58)
[2019-01-07] MEDS: Carbamide Peroxide 6.5% OTIC* 15 ML BTL BOTH EARS SCH ×2 (09:27→21:59)
[2019-01-07] MEDS ORDERED: oxyCODONE TAB* 5 MG TAB PO PRN (11:51)
[2019-01-08] MEDS: Piperacillin/Tazobac ADVAN(*) 3.375 GM in NS 0.9% 100 ML* 100 ML IVPB SCH (05:43)
[2019-01-08] MEDS ORDERED: Piperacillin/Tazobac ADVAN(*) 3.375 GM in NS 0.9% 100 ML* 100 ML IVPB SCH ×2 (06:45→08:00)
--- NOTE | 2019-01-08 07:19 | PN ---
Subjective Date of Service: 01/08/19 Interval History: HD 10 on 01/08 83M PMH chronic respiratory failure on home O2(3L), COPD, CVA w residual L sided weakness, CAD(s/p CABG), severe , IDDM, TAMICA/OHS on BiPAP, HTN, BPH, skin cancer presented w/ likely COPD Exacerbation and L 5th digit soft tissue infection. Amputation of left 5 toe( 0n 01/06) No acute overnight events VS stable No complaint at present has mild pain on left foot Objective Active Medications: Acetaminophen (Tylenol Tab*) 650 mg PO Q6H PRN PRN Reason: PAIN - MILD Last Admin: 01/07/19 05:30 Dose: 650 mg Albuterol/Ipratropium (Duoneb (Albuterol 2.5 Mg/Ipratropium 0.5 Mg)) 1 neb INH [id number] AWAKE PRN PRN Reason: sob/wheexing Apixaban (Eliquis*) 2.5 mg PO BID [facility] Last Admin: 01/07/19 21:58 Dose: 2.5 mg Aspirin (Aspirin Ec Tab*) 81 mg PO QAM [facility] Last Admin: 01/07/19 09:25 Dose: 81 mg Atorvastatin Calcium (Lipitor*) 40 mg PO DAILY [facility] Last Admin: 01/07/19 09:25 Dose: 40 mg Carbamide Peroxide (Debrox 6.5% Otic*) 5 drop BOTH EARS BID [facility] Last Admin: 01/07/19 21:59 Dose: 5 drop Carboxymethylcellulose Sodium (Celluvisc 1% Opth*) 1 drop BOTH EYES Q2H PRN PRN Reason: DRY EYE Last Admin: 01/07/19 09:27 Dose: 1 drop Cholecalciferol (Vitamin D Tab*) 1,000 units PO DAILY [facility] Last Admin: 01/07/19 09:25 Dose: 1,000 units Dextrose (Dextrose 50% Vial 50 Ml*) 25 ml IV PUSH .FOR FS < 60 - SS PRN PRN Reason: FS < 60 Last Admin: 01/06/19 15:41 Dose: 25 ml Finasteride (Proscar Tab*) 5 mg PO DAILY [facility] Last Admin: 01/07/19 09:26 Dose: 5 mg Furosemide (Lasix Tab*) 20 mg PO BID [facility] Last Admin: 01/07/19 21:59 Dose: 20 mg Guaifenesin (Robitussin*) 5 ml PO Q4H PRN PRN Reason: COUGH Hydroxyzine HCl (Atarax Tab*) 10 mg PO TID PRN PRN Reason: ANXIETY Lactated Ringer's (Lactated Ringers 1000 Ml Bag*) 1,000 mls @ 33 mls/hr IV PER RATE [facility] Piperacillin Sod/Tazobactam (Sod 3.375 gm/ Sodium Chloride) 100 mls @ 25 mls/ hr IVPB Q8HR [facility] Insulin Glargine (Lantus(*)) 20 units SUBCUT BID [facility] Last Admin: 01/07/19 21:58 Dose: 20 units Insulin Human Lispro (Humalog*) 0 units SUBCUT ACHS [facility]; Protocol Last Admin: 01/07/19 21:58 Dose: 6 units Lisinopril (Prinivil Tab*) 5 mg PO DAILY [facility] Last Admin: 01/07/19 09:25 Dose: 5 mg Metoprolol Tartrate (Lopressor Tab*) 25 mg PO BID [facility] Last Admin: 01/07/19 21:59 Dose: 25 mg Mometasone Furoate (Asmanex 220 Mcg Mdi *) 2 puff INH BID [facility]; Protocol Last Admin: 01/07/19 20:12 Dose: 2 puff Ondansetron HCl (Zofran Inj*) 4 mg IV Q6H PRN PRN Reason: NAUSEA Oxycodone HCl (Roxycodone Tab*) 5 mg PO Q6H PRN PRN Reason: PAIN - SEVERE Last Admin: 01/08/19 00:49 Dose: 5 mg Pantoprazole Sodium ([facility]ix Tab*) [facility] Last Admin: 01/07/19 09:26 Dose: 40 mg Pharmacy Consult (Zosyn Per Pharmacy*) 1 note FOLLOW UP .ZOSYN PER PHARMACY [facility] Senna (Senokot 8.6 Mg Tab*) 2 tab PO BID PRN PRN Reason: CONSTIPATION Sertraline HCl (Zoloft*) 100 mg PO QAM [facility] Last Admin: 01/07/19 09:24 Dose: 100 mg Vital Signs - 8 hr 01/07/19 01/08/19 01/08/19 23:28 00:00 00:49 Temperature 97.4 F Pulse Rate 77 Respiratory 18 16 Rate Blood Pressure 116/56 (mmHg) O2 Sat by Pulse 94 94 Oximetry 01/08/19 03:32 Temperature 97.3 F Pulse Rate 90 Respiratory 18 Rate Blood Pressure 109/76 (mmHg) O2 Sat by Pulse 97 Oximetry Oxygen Devices in Use Now: BiPAP Exam: Patient is sitting on a bed with no acute distress and has nasal canula HEENT: Has scar on scalp; black scab on nose adn he only has his lower 4 teeth. Lungs: Clear with no added sound. Heart: S1/S2 heard with murmur. Abdomen: Soft, nondistended and nontender. NOrmal BS heard Extremities: Dressing on left foot with no soaking. Neuro: Alert, conscious and oriented. Left facial droop and ptosis present. Result Diagrams: 01/08/19 10:00 01/08/19 10:00 Additional Lab and Data: Above labs were pulled into the note when the note was edited prior to signing , please see labs below from day of consultation. Laboratory Tests 12/30/18 01/04/19 01/04/19 12:34 07:55 07:55 WBC 12.4 H Hgb 11.1 L Hct 32 L Plt Count 212 Sodium 141 Potassium 3.5 Chloride 109 Carbon Dioxide 24 BUN 56 H Creatinine 1.77 H Glucose 162 H C-Reactive Protein 99.20 H Total Protein 7.2 Albumin 3.5 Microbiology and Other Data: Microbiology 12/30/18 17:07 Aerobic Blood Culture - Preliminary Blood Venous No Growth Day 2 Anaerobic Blood Culture - Preliminary No Growth Day 2 12/30/18 17:00 Aerobic Blood Culture - Preliminary Blood Venous No Growth Day 2 Anaerobic Blood Culture - Preliminary No Growth Day 2 12/31/18 12:00 Skin and Soft Tissue MRSA/MSSA (PCR - Final Foot Left Mrsa Positive S.aureus Positive Gram Stain - Final 12/30/18 13:04 Urine Culture - Final Urine No Growth (<1,000 CFU/mL) 12/31/18 04:20 Legionella Urinary Antigen - Final Urine Negative Legionella Antigen Streptococcus pneumoniae Ag Screen - Final Negative S. pneumo Antigen Diagnostic Imagin. Exam Date: 01/03/19 1359 - VL LOWER EXT ART DUPLEX LEFT IMPRESSION: Patent left lower extremity arterial tree from [employer] to the dorsalis pedis with mild atherosclerotic changes. 2. Exam Date: 12/31/18948 - MRI LOWER EXTREMITY LEFT W/O IMPRESSION: 1. Study is limited by motion artifact despite multiple attempts at scanning. 2. No visualized mass or abscess. There is limited edematous signal change surrounding the fifth MTP and proximal phalanx of the fifth toe possibly cellulitis but nonspecific. 3. Limited abnormal increased signal on STIR imaging in phalanges of the fifth toe without convincing enough alteration on nonenhanced T1-weighted imaging to confirm osteomyelitis at this time. This may be reactive marrow signal or very early osteomyelitis. 3. Exam Date: 12/30/18 1219 - TOE LEFT 5TH IMPRESSION: 1. No definite destructive osseous changes (radiograph is insensitive to acute osteomyelitis). 2. Extensive vascular calcifications. 4. Exam Date: 12/30/18 1215 - CT EXTREMITY LOWER LEFT WO IMPRESSION: Soft tissue swelling at the dorsum of the third and fourth metatarsals with areas of low density which may represent small fluid pockets. No abnormal erosions are noted. Extensive atherosclerosis is noted. Assess/Plan/Problems-Billing Assessment: 83M PMH chronic respiratory failure on home O2(3L), COPD, CVA w residual L sided weakness, CAD(s/p CABG), severe , IDDM, TAMICA/OHS on BiPAP, HTN, BPH, skin cancer presented w/ likely COPD Exacerbation and L 5th digit soft tissue infection; s/p left 5 toe amputation(on 01/06). On zosyn( day 9 on 01/08) - Patient Problems (1) Cellulitis of fifth toe of left foot Status: Acute Code(s): L03.032 - CELLULITIS OF LEFT TOE SNOMED Code(s): 45793794 Comment: -s/p amputation on 01/06 -On IV zosyn day 9 on 01/08 -ortho following -ID following -dc today with doxy and keflex (2) COPD exacerbation Status: Acute Priority: High Onset Date: 10/05/13 Code(s): J44.1 - CHRONIC OBSTRUCTIVE PULMONARY DISEASE W (ACUTE) EXACERBATION SNOMED Code(s): 289004640 Comment: -improved - Worsening SOB and increase oxygen requirement and diffuse wheezes on presentation - completed steroid burst (3) Acute and chronic respiratory failure with hypoxia Status: Acute Code(s): J96.21 - ACUTE AND CHRONIC RESPIRATORY FAILURE WITH HYPOXIA SNOMED Code(s): 43142336 Comment: - Uses 3L of oxygen at home, BIPAP dependent now on 3L of o2 and BiPAP (4) Heart failure with preserved ejection fraction Status: Acute Code(s): I50.30 - UNSPECIFIED DIASTOLIC (CONGESTIVE) HEART FAILURE SNOMED Code(s): 014498656 Comment: - EF 50-55%; last echo in 03/10/2018, repeat echo on 01/03/2019 showed EF of 55- 60% with severe LA dilatation. - On furosemide. - No signs of volume overload at present (5) Supratherapeutic INR Status: Acute Code(s): R79.1 - ABNORMAL COAGULATION PROFILE SNOMED Code(s): 119491746 Comment: - He was on warfarin 3 mg everyday except 6 mg on thursday, thursday and thursday -INR today is 1.85 -started on eliquis (6) Diabetes mellitus Status: Acute Code(s): E11.9 - TYPE 2 DIABETES MELLITUS WITHOUT COMPLICATIONS SNOMED Code(s): 83734505 Comment: -continue insulins lantus 20 U BId and SSI and victoza (7) History of CVA (cerebrovascular accident) Status: Acute Priority: High Code(s): Z86.73 - PRSNL HX OF TIA (TIA), AND CEREB INFRC W/O RESID DEFICITS SNOMED Code(s): 973700592 Comment: - secondary prevention with asa and statin -on eliquis (8) Hypertension Status: Acute Priority: High Code(s): I10 - ESSENTIAL (PRIMARY) HYPERTENSION SNOMED Code(s): 22084118 Comment: - Continue bb and lisinopril (9) Severe aortic stenosis Status: Acute Code(s): I35.0 - NONRHEUMATIC AORTIC (VALVE) STENOSIS SNOMED Code(s): 01868770 Comment: - Aortic valve mean gradient presuure is 34 on previous echo - he was managed medically before; history obtained from him and aide and asked his PCP, ? of distant AVR, - His echo on 01/03/2019 showed EF of 55-60% with diastolic dysfxn and LA dilatation. Moderate aortic stenosis with mean systolic gradient is 8.0 mm Hg. (10) Afib Status: Acute Priority: High Code(s): I48.91 - UNSPECIFIED ATRIAL FIBRILLATION SNOMED Code(s): 34397648 Comment: - rate controlled with metoprolol 25 mg - AC-eliquis (11) DVT prophylaxis Status: Acute Priority: High Code(s): ZXO2306 - SNOMED Code(s): 971433464 Comment: - started on eliquis 2.5 mg (12) DNR (do not resuscitate) Status: Acute Comment: - Overall poor prognosis given comorbidites if toe wound is to become much worse Status and Disposition: Medicine inpatient ortho following PT says he needs continued PT and benefits from rehab; refused rehab dc with in home tutor and VNS Attending: Arian Sr Attestation Documenting Resident: Judy Headley Supervising Physician: Dickson Sr Attestation: This service has been performed in part by a resident under the direction of a teaching physician.I, Dickson Sr, performed the service, or was physically present during the critical, or sahni portions of the service, furnished by the resident. I participated in the management of the patient.
[2019-01-08] MEDS: Insulin LISPRO* 1 UNITS UNIT SUBCUT SCH (08:06)
[2019-01-08] MEDS: Aspirin EC TAB* 81 MG TAB.EC PO SCH (08:36)
[2019-01-08] MEDS: Lisinopril TAB* 5 MG PO SCH (08:37)
[2019-01-08] MEDS: Atorvastatin* 40 MG TAB PO SCH (08:37)
[2019-01-08] MEDS: Apixaban* 2.5 MG TAB PO SCH (08:39)
[2019-01-08] MEDS: Finasteride TAB* 5 MG PO SCH (08:39)
[2019-01-08] MEDS: Sertraline* 100 MG TAB PO SCH (08:39)
[2019-01-08] MEDS: Furosemide TAB* 20 MG PO SCH (08:40)
[2019-01-08] MEDS: Metoprolol Tartrate TAB* 25 MG PO SCH (08:40)
[2019-01-08] MEDS: Pantoprazole TAB * 40 MG TAB PO SCH (08:40)
[2019-01-08] MEDS: Carbamide Peroxide 6.5% OTIC* 15 ML BTL BOTH EARS SCH (08:47)
[2019-01-08 09:00] VITALS: BP 114/58
[2019-01-08] MEDS: Mometasone 220 MCG MDI INH SCH (09:16)
[2019-01-08] MEDS: Cholecalciferol TAB* 1000 UNITS PO SCH (09:33)
[2019-01-08] MEDS: Insulin GLARGINE(*) 1 UNITS UNIT SUBCUT SCH (09:33)
[2019-01-08 10:15] LABS: ABS Basophils 0.1 10^3/ul (0-0.2); ABS Eosinophils 0.2 10^3/ul (0-0.6); ABS Monocytes 1.2 10^3/ul (0-0.8); ABS Neutrophils 12.9 10^3/ul (1.5-7.7); Eosinophil % 1.3 %; Hematocrit 35 % (42-52); Hemoglobin 11.6 g/dL (14.0-18.0); Lymphocyte % 6.4 %; Mean Corpuscular HGB Conc 33 g/dL (31-36); Mean Corpuscular Hemoglobin 28 pg (27-31); Mean Corpuscular Volume 84 fL (80-94); Mean Platelet Volume 7.3 fL (7.4-10.4); Platelet Count 222 10^3/uL (150-450); Red Blood Count 4.19 10^6 /uL (4.18-5.48); Red Cell Distribution Width 15 % (10-15); White Blood Count 15.4 10^3/uL (3.5-10.8)
[2019-01-08 10:36] LABS: BUN/Creatinine Ratio 25.7 (8-20); Calcium 8.6 mg/dL (8.6-10.3); EGFR African American 55.2 (>60); EGFR Non-African American 45.6 (>60); Potassium 3.8 mmol/L (3.5-5.0)
--- NOTE | 2019-01-09 10:54 | DS ---
CC: Dr. Jeremiah Ruano at the [facility] in [place]; Dr. Flores DISCHARGE SUMMARY: DATE OF ADMISSION: 12/30/18 DATE OF DISCHARGE: 01/08/19 PRIMARY DIAGNOSIS: Osteomyelitis, left fifth digit. SECONDARY DIAGNOSES: 1. Chronic obstructive pulmonary disease exacerbation. 2. Chronic hypoxic respiratory failure. 3. History of stroke. 4. Coronary artery disease, status post coronary artery bypass grafting. 5. Severe aortic stenosis with no intervention planned. 6. Type 2 diabetes. 7. Obstructive sleep apnea, on BiPAP. 8. Hypertension. 9. Benign prostatic hypertrophy. 10. History of skin cancer. 11. Depression. 12. Heart failure with preserved ejection fraction. 13. Chronic kidney disease, stage 2. 14. Paroxysmal atrial fibrillation. MEDICATIONS ON DISCHARGE: 1. Albuterol MDI 2 puffs q.4 hours p.r.n. wheezing. 2. Aspirin 81 mg p.o. q.a.m. 3. Atorvastatin 40 mg p.o. q.p.m. 4. Carbamide peroxide 6.5% otic with 5 drops both ears twice a day for 4 days. 5. Carboxymethylcellulose 1% ophthalmologic 1 drop both eyes q.2 hours p.r.n. dry eyes. 6. Vitamin D 1000 units p.o. q. day. 7. Proscar 5 mg p.o. q. day. 8. Robitussin liquid 5 mL q.4 hours p.r.n. cough. 9. Hydroxyzine 10 mg t.i.d. p.r.n. itching or anxiety. 10. Victoza 1.2 mg subcutaneous q. day. 11. Lisinopril 5 mg p.o. q. day. 12. Mometasone 220 mcg 2 puffs inhaled b.i.d. 13. Omeprazole 20 mg p.o. q.a.m. 14. Senna 2 tablets p.o. b.i.d. p.r.n. constipation. 15. Sertraline 100 mg p.o. q.a.m. 16. Zolpidem 5 mg p.o. q.p.m. 17. Acetaminophen as needed. 18. Eliquis 2.5 mg p.o. b.i.d. 19. Cephalexin 500 mg p.o. b.i.d. for 10 days. 20. Doxycycline 100 mg p.o. b.i.d. for 1 month. 21. Furosemide 20 mg p.o. b.i.d. 22. Lantus insulin 20 units subcutaneous q.12 hours. 23. Metoprolol 25 mg p.o. b.i.d. 24. Oxycodone 5 mg p.o. 4 times daily p.r.n. postop pain; 12 tablets were sent to the pharmacy. CONSULTATIONS: Dr. Montana and Dr. Reynolds of Orthopedics; Manisha Black NP, of Wound Clinic; Dr. Flores of Infectious Disease. PROCEDURES: Amputation of left fifth toe due to osteomyelitis. HOSPITAL COURSE: The patient with complex medical history including aortic stenosis with no plan for TAVR or aortic valve replacement as well as chronic respiratory failure presented to the hospital with COPD exacerbation. He was initially treated with p.r.n. nebulizers, ceftriaxone, azithromycin, and IV Solu - Medrol. After 4 days of treatment, his wheezing had improved to his baseline and he did not require any further steroids. He has returned to his stable inhalers, BiPAP use. Typically, he wears BiPAP at night and when sleeping as well as oxygen supplementation at 3 L/minute. The patient was also on admission noted to have a wound in his left toe on the plantar surface. He apparently had injured this toe 2 weeks prior to the admission. He had a deep opening down to the tendon and bone that was not healing. X-ray of the left fifth toe showed no definitive destructive osseous changes, but did show extensive vascular calcifications. Lower extremity duplex showed patent left lower extremity arterial tree from the [employer] to the dorsalis pedis with mild atherosclerotic changes. MRI of the left lower extremity showed edematous signal change surrounding the fifth metatarsal phalangeal joint and proximal phalanx of the fifth toe, possibly cellulitis and there was also abnormal increased signal on STIR imaging in the phalanges of the fifth toe which may be reactive bone marrow signal or early osteomyelitis. After confirming with Orthopedics on this case as well as the Wound Clinic and Infectious Disease, the patient agreed to have amputation of the toe. This occurred on 01/06/[address] Reynolds without complications. The patient is advised to continue cephalexin for 10 days post discharge on 01/08/19 as well as a month of doxycycline due to the depth and severity of the infection and the patient was advised to see Dr. Flores for followup within a month to decide on further antibiotics. Pathology on the amputated toe was pending on discharge. As a part of his workup for dyspnea, the patient had a transthoracic echocardiogram on 01/01/19. This showed ejection fraction of 55% to 60%, mild to moderate mitral stenosis with mild mitral regurgitation. The aortic valve showed moderate stenosis, but this could be underestimated due to poor images of the valve area by the velocity time integral method is 0.70 square cm. Other important findings during this hospital stay: Chest x-ray initially on showed bibasilar opacification or atelectasis which was unchanged from previous chronic elevation of the right hemidiaphragm. On admission, his white count was 10.0. It veronica up to 16 partly due to steroids and infection and fell to 15 on discharge. ESR was 66. The patient has chronic kidney disease with a baseline creatinine of around 1.6 on admission and 1.48 on discharge. The patient's diabetes was assessed during the hospital stay. His A1c was 6.9. His outpatient Lantus prescription said 25 units daily, but his aide firmly told us he was giving the patient 30 units twice a day. His Victoza was on held during the hospital stay. His Lantus was titrated to 20 units twice a day and this could be titrated down further potentially when starting back on Victoza. At his age, tight control is not indicated, an A1c in the 7 to 8 range would be reasonable. The patient was chronically anticoagulated due to atrial fibrillation. On admission, his INR was 7.2. Due to his poor compliance with medication and the danger of hemorrhage, his warfarin was stopped. It is recommended by this team that the patient be on NOAC and he was started on Eliquis 2.5 mg twice a day, dosed for his renal function and age. I discussed the case with the nurse at the [place] [facility] and she upon receiving this note is going to talk to the [facility] in [place] and [place] where he can be switched over to Eliquis. The patient was provided with a sample pack of 14 pills of 5 mg Eliquis on discharge and he was instructed to take half a pill twice a day of Eliquis until the proper supply can be given to him through his [employer] benefits. DISPOSITION: To home, where he has an aide. ACTIVITY: He moves about in a powered wheelchair. He is to wear his BiPAP at night and when he is asleep and wear supplemental oxygen at 3 L continuous. DIET: Diabetic. STATUS: Inpatient. CONDITION: Stable. FOLLOWUP: Should be with Dr. Ruano at the [place] [facility] within [address] Flores within 3 weeks. Dressing changes: He is to just leave the dressing on his left foot and see Dr. Reynolds within 1 week in the clinic. TIME SPENT: I spent more than 45 minutes with this patient in completing necessary documentation on the day of discharge. [id number]/CPS #: [id number] [place]
== END 2019-01-08 11:05 | disposition home health service (06) | DRG 240 ==
LOC: ED 10:48 → MEDTELE 16:02
PROVIDERS: ADMIT Internal Medicine; ATTEND Internal Medicine
PROC: 0Y6N0ZF Detachment at Left Foot, Partial 5th Ray, Open Approach (ICD-10-PCS; principal; 2019-01-06 12:15)
DX: E11.52 Type 2 diabetes mellitus with diabetic peripheral angiopathy with gangrene (principal); J44.1 Chronic obstructive pulmonary disease with (acute) exacerbation; J96.11 Chronic respiratory failure with hypoxia; I50.32 Chronic diastolic (congestive) heart failure; I13.0 Hypertensive heart and chronic kidney disease with heart failure and stage 1 through stage 4 chronic kidney disease, or unspecified chronic kidney disease; I96 Gangrene, not elsewhere classified; I69.354 Hemiplegia and hemiparesis following cerebral infarction affecting left non-dominant side; M86.8X7 Other osteomyelitis, ankle and foot; E11.69 Type 2 diabetes mellitus with other specified complication; I25.10 Atherosclerotic heart disease of native coronary artery without angina pectoris; E78.00 Pure hypercholesterolemia, unspecified; G47.33 Obstructive sleep apnea (adult) (pediatric); K21.9 Gastro-esophageal reflux disease without esophagitis; N40.0 Benign prostatic hyperplasia without lower urinary tract symptoms; M19.90 Unspecified osteoarthritis, unspecified site; H91.90 Unspecified hearing loss, unspecified ear; F41.9 Anxiety disorder, unspecified; F32.9 Major depressive disorder, single episode, unspecified; R79.1 Abnormal coagulation profile; E11.22 Type 2 diabetes mellitus with diabetic chronic kidney disease; Z66 Do not resuscitate; I44.7 Left bundle-branch block, unspecified; L03.032 Cellulitis of left toe; E66.9 Obesity, unspecified; F43.10 Post-traumatic stress disorder, unspecified; E11.42 Type 2 diabetes mellitus with diabetic polyneuropathy; B95.62 Methicillin resistant Staphylococcus aureus infection as the cause of diseases classified elsewhere; I35.0 Nonrheumatic aortic (valve) stenosis; N18.2 Chronic kidney disease, stage 2 (mild); I48.0 Paroxysmal atrial fibrillation; G43.909 Migraine, unspecified, not intractable, without status migrainosus; Z88.1 Allergy status to other antibiotic agents; Z91.041 Radiographic dye allergy status; Z86.718 Personal history of other venous thrombosis and embolism; Z88.8 Allergy status to other drugs, medicaments and biological substances; I25.2 Old myocardial infarction; Z85.828 Personal history of other malignant neoplasm of skin; Z95.1 Presence of aortocoronary bypass graft; Z97.4 Presence of external hearing-aid; Z86.14 Personal history of Methicillin resistant Staphylococcus aureus infection; Z80.0 Family history of malignant neoplasm of digestive organs; Z80.8 Family history of malignant neoplasm of other organs or systems; Z68.33 Body mass index [BMI] 33.0-33.9, adult; Z79.82 Long term (current) use of aspirin; Z79.4 Long term (current) use of insulin; Z79.01 Long term (current) use of anticoagulants
CPT/HCPCS: 36415; 71046; 80048; 80053; 80202; 81003; 81015; 82550; 82553; 82565; 82947; 83036; 83605; 83735; 83880; 84484; 84520; 85025; 85027; 85379; 85610; 85652; 86140; 87040; 87070; 87077; 87086; 87186; 87205; 87640; 87641; 87899; 88305; 88311; 93005; 93306; 94640; 94660; 96374; 96375; 99284; A9270-GY; G8978-GP-CL; G8979-GP-CI; J0456; J0696; J2270; J2543; J2704; J2920; J2930; J3010; J3370; J3490; J7512

== ENCOUNTER 2019-02-02 21:05 | Emergency (ER) | payer SELFPAY ==
--- OUTSIDE RECORDS SUMMARY | 2019-02-02 22:29 | XMS REPORT ---
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 Chronic Chronic Diagnosis Active Estelita systolic systolic 06-12 Ulisses (congestive (congestive [id number] ) heart ) heart failure failure Chronic Chronic Diagnosis Active 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 0-13 Ulisses pulmonary pulmonary [id number] disease, disease, unspecified unspecified 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 06-12 Ulisses mellitus mellitus [id number] with with diabetic diabetic neuropathy, neuropathy, unsp unsp 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 [id number] toe(s) toe(s) I48.91 I48.91 Diagnosis Active Organ 06-12 Ulisses [id number] Safety knowledge/s Safety Resolve 2015-07-26 Meghann kill d 2-15 15:15:00 Jasen deficit: pt 10:00: [id number] 00 Diagnoses knowledge/s Diagnoses Active Meghann kill 2-15 Jasen deficit: pt 10:00: [id number] 00 Diagnoses knowledge/s Diagnoses Active Meghann kill 2-15 Jasen deficit: cg 10:00: [id number] 00 Respiratory knowledge/s Respirator Resolve 2015-10-22 Martina kill y d 3-07 10:30:00 Sinnigen deficit: cg 10:30: [id number] 00 Pain frequent Pain Mgmt Resolve 2018-08-03 Paula pain d 06-03 12:10:00 [place] 11:00: [id number] 00 Respiratory oxygen Respirator Resolve 2015-2016-12-09 Paula treatments y d 3-14 12:18:00 Eri in home 11:00: [id number] 00 Respiratory CPAP Respirator Resolve 2016-12-09 Paula treatments y d 3-14 12:18:00 [place] in home 11:00: [id number] 00 Integument skin Integument Resolve 2015-06-08 Paula integrity d 3-14 14:20:00 [place] risk 11:00: [id number] 00 Nutrition knowledge/s Nutrition Resolve 2015-06-08 Paula kill d 3-14 14:20:00 [place] deficit: pt 11:00: [id number] 00 Nutrition knowledge/s Nutrition Resolve 2015-06-08 Paula kill d 3-14 14:20:00 [place] deficit: cg 11:00: [id number] Neuro knowledge/s Neuro/Emot Resolve 2015-06-08 Paula kill ion d 3-14 14:20:00 [place] deficit: pt 11:00: [id number] Neuro seizures Neuro/Emot Resolve 2015-06-08 Paula ion d 3-14 14:20:00 [place] 11:00: [id number] 00 Activity ADL Activity Resolve 2015-06-08 Paula assistance d 3-14 14:20:00 Eri required 11:00: [id number] Safety fall risk Safety Resolve 2015-06-08 Paula factor d 3-14 14:20:00 Eri present 11:00: [id number] 00 Safety risk for Safety Resolve 2015-06-08 Paula hospitaliza d 3-14 14:20:00 [place] tion 11:00: [id number] 00 Medication knowledge/s Meds Resolve 2015-06-08 Paula kill d 3-14 14:20:00 Eri deficit: pt 11:00: [id number] 00 Musculoskel knowledge/s Musculoske Resolve 2015-06-08 Paula etal kill letal d 3-14 14:20:00 Eri deficit: pt 11:00: [id number] Psych psych risk Psych Resolve 2015-06-08 Paula Problems factors d 3-14 14:20:00 [place] present 11:00: [id number] 00 Bed transfer PT/OT: Bed Resolve 2015-06-08 Rubén Mobility/Tr deficit: Mobility/T d 3-18 14:20:00 Que mack sit/stand ransfer 14:20: [id number] 00 Bed transfer PT/OT: Bed Resolve 2015-06-08 Rubén Mobility/Tr deficit: Mobility/T d 3-18 14:20:00 Que mack toilet/comm ransfer 14:20: [id number] ode 00 Bed transfer PT/OT: Bed Resolve 2015-06-08 Rubén Mobility/Tr deficit: Mobility/T d 318 14:20:00 Que mack shower/tub ransfer 14:20: [id number] 00 Bed transfer PT/OT: Bed Resolve 2015-06-08 Rubén Mobility/Tr deficit: Mobility/T d 318 14:20:00 Que mack vehicle ransfer 14:20: [id number] 00 Bed knowledge/s PT/OT: Bed Resolve 2015-06-08 Rubén Mobility/Tr kill Mobility/T d 318 14:20:00 Que mack deficit: pt ransfer 14:20: [id number] 00 Bed bed PT/OT: Bed Resolve 2015-06-08 Rubén Mobility/Tr mobility Mobility/T d 318 14:20:00 Que mack deficit ransfer 14:20: [id number] 00 Balance/End endurance PT/OT: Resolve 2015-06-12 Rubén urance deficit Balance/En d 318 14:50:00 Que durance 14:20: [id number] 00 Balance/End knowledge/s PT/OT: Resolve 2015-06-12 Rubén urance kill Balance/En d 18 14:50:00 Que deficit: pt durance 14:20: [id number] 00 Gait/Locomo gait PT/OT: Resolve 2015-06-08 Rubén tion assistive Gait/Locom d 318 14:20:00 Que problems device otion 14:20: [id number] present 00 Gait/Locomo knowledge/s PT/OT: Resolve 2015-06-08 Rubén tion kill Gait/Locom d 06-07 14:20:00 Que problems deficit: pt otion 14:20: [id number] 00 Gait/Locomo gait PT/OT: Resolve 2015-06-08 Rubén tion deficit Gait/Locom d 06-07 14:20:00 Que problems otion 14:20: [id number] 00 Safety risk for Safety Resolve 2015-06-12 [facility] 14:50:00 [place] tion 09:35: [id number] 00 Bed transfer PT/OT: Bed Resolve 2015-06-12 Rubén Mobility/Tr deficit: Mobility/T d 06-11 14:50:00 Que ansfer sit/stand ransfer 14:50: [id number] 00 Gait/Locomo knowledge/s PT/OT: Resolve 2015-06-12 Rubén tion kill Gait/Locom d 06-11 14:50:00 Que problems deficit: pt otion 14:50: [id number] 00 Gait/Locomo gait PT/OT: Resolve 2015-06-12 Rubén tion deficit Gait/Locom d 06-11 14:50:00 Que problems otion 14:50: [id number] 00 Safety risk for Safety Resolve 2015-06-22 [facility] 14:20:00 Eri tion 10:30: [id number] 00 Bed transfer PT/OT: Bed Resolve 2015-06-15 Rubén Mobility/Tr deficit: Mobility/T d 06-14 14:20:00 Que ansfer sit/stand ransfer 14:20: [id number] 00 Bed transfer PT/OT: Bed Resolve 2015-06-15 Rubén Mobility/Tr deficit: Mobility/T d 06-14 14:20:00 Que ansfer toilet/comm ransfer 14:20: [id number] ode 00 Gait/Locomo gait PT/OT: Resolve 2015-06-15 Rubén tion assistive Gait/Locom d 06-14 14:20:00 Que problems device otion 14:20: [id number] present 00 Gait/Locomo knowledge/s PT/OT: Resolve 2015-06-15 Rubén tion kill Gait/Locom d 06-14 14:20:00 Que problems deficit: pt otion 14:20: [id number] 00 Gait/Locomo gait PT/OT: Resolve 2015-06-15 Rubén tion deficit Gait/Locom d 06-14 14:20:00 Que problems otion 14:20: [id number] 00 Respiratory dyspnea Respirator Resolve 2016-12-09 Paula present y d 06-21 12:18:00 Eri 13:00: [id number] 00 Respiratory lung sounds Respirator Resolve 2015-06-29 Paula deficit y d 06-21 14:20:00 Eri 13:00: [id number] 00 Bed transfer PT/OT: Bed Resolve 2015-06-22 Rubén Mobility/Tr deficit: Mobility/T d 06-21 14:20:00 Que ansfer sit/stand ransfer 14:20: [id number] 00 Balance/End knowledge/s PT/OT: Resolve 2015-06-22 Rubén urance kill Balance/En d 06-21 14:20:00 Que deficit: pt durance 14:20: [id number] 00 Balance/End endurance PT/OT: Resolve 2015-06-22 Rubén urance deficit Balance/En d 06-21 14:20:00 Que durance 14:20: [id number] 00 Gait/Locomo knowledge/s PT/OT: Resolve 2015-06-22 Rubén tion kill Gait/Locom d 06-21 14:20:00 Que problems deficit: pt otion 14:20: [id number] 00 Gait/Locomo gait PT/OT: Resolve 2015-06-22 Rubén tion deficit Gait/Locom d 06-21 14:20:00 Que problems otion 14:20: [id number] 00 Gait/Locomo gait PT/OT: Resolve 2015-06-22 Rubén tion assistive Gait/Locom d 06-21 14:20:00 Que problems device otion 14:20: [id number] present 00 Elimination diarrhea Eliminatio Resolve 2015-06-29 Martina n d 06-24 14:20:00 [place] 10:15: [id number] 00 Safety risk for Safety Resolve 2015-06-29 Martina hospitaliza d 06-24 14:20:00 [place] tion 10:15: [id number] 00 Safety can be left Safety Resolve 2015-07-02 Rubén alone for d 06-28 15:15:00 Que only short 14:20: [id number] periods 00 Bed mobility/tr PT/OT: Bed Resolve 2015-07-02 Rubén Mobility/Tr ansfer Mobility/T d 06-28 15:15:00 Que ansfer device ransfer 14:20: [id number] present 00 Bed transfer PT/OT: Bed Resolve 2015-06-29 Rubén Mobility/Tr deficit: Mobility/T d 06-28 14:20:00 Que ansfer sit/stand ransfer 14:20: [id number] 00 Endo/Nito knowledge/s Endo/Nito Resolve 2015-07-05 Paula kill d 07-01 15:15:00 Eri deficit: pt 13:30: [id number] 00 Endo/Nito knowledge/s Endo/Nito Resolve 2015-07-05 Paula kill d 07-01 15:15:00 Eri deficit: cg 13:30: [id number] 00 Endo/Nito knowledge/s Endo/Nito Resolve 2015-07-05 Paula kill d 07-01 15:15:00 Eri deficit 13:30: [id number] hypo/hyperg 00 lycemia: pt Endo/Nito knowledge/s Endo/Nito Resolve 2015-07-05 Paula kill d 07-01 15:15:00 [place] deficit 13:30: [id number] hypo/hyperg 00 lycemia: cg Neuro knowledge/s Neuro/Emot Resolve 2015-07-05 Paula kill ion d 07-01 15:15:00 [place] deficit: pt 13:30: [id number] 00 Neuro seizures Neuro/Emot Resolve 2015-07-05 Paula ion d 07-01 15:15:00 [place] 13:30: [id number] 00 Safety risk for Safety Resolve 2015-07-02 Paula hospitaliza d 07-01 15:15:00 [place] tion 13:30: [id number] 00 Bed transfer PT/OT: Bed Resolve 2015-07-02 Rubén Mobility/Tr deficit: Mobility/T d 07-01 15:15:00 Que ansfer sit/stand ransfer 15:15: [id number] 00 Gait/Locomo gait PT/OT: Resolve 2015-07-02 Rubén tion assistive Gait/Locom d 07-01 15:15:00 Que problems device otion 15:15: [id number] present 00 Gait/Locomo knowledge/s PT/OT: Resolve 2015-07-02 Rubén tion kill Gait/Locom d 07-01 15:15:00 Que problems deficit: pt otion 15:15: [id number] 00 Gait/Locomo gait PT/OT: Resolve 2015-07-02 Rubén tion deficit Gait/Locom d 07-01 15:15:00 Que problems otion 15:15: [id number] 00 Bed transfer PT/OT: Bed Resolve 2015-07-05 Rubén Mobility/Tr deficit: Mobility/T d 07-04 15:15:00 Que ansfer sit/stand ransfer 15:15: [id number] 00 Bed mobility/tr PT/OT: Bed Resolve 2015-07-05 Rubén Mobility/Tr ansfer Mobility/T d 07-04 15:15:00 Que ansfer device ransfer 15:15: [id number] present 00 Balance/End knowledge/s PT/OT: Resolve 2015-07-09 Rubén urance kill Balance/En d 07-04 14:30:00 Que deficit: pt durance 15:15: [id number] 00 Balance/End endurance PT/OT: Resolve 2015-07-05 Rubén urance deficit Balance/En d 07-04 15:15:00 Que durance 15:15: [id number] 00 Gait/Locomo gait PT/OT: Resolve 2015-07-05 Rubén tion assistive Gait/Locom d 07-04 15:15:00 Que problems device otion 15:15: [id number] present 00 Gait/Locomo knowledge/s PT/OT: Resolve 2015-07-05 Rubén tion kill Gait/Locom d - 15:15:00 Que problems deficit: pt otion 15:15: [id number] 00 Gait/Locomo gait PT/OT: Resolve 2015-07-05 Rubén tion deficit Gait/Locom d -14 15:15:00 Que problems otion 15:15: [id number] 00 Bed transfer PT/OT: Bed Resolve 2015-07-11 Rubén Mobility/Tr deficit: Mobility/T d 07-08 14:45:00 Que ansfer sit/stand ransfer 14:30: [id number] 00 Balance/End endurance PT/OT: Resolve 2015-07-09 Rubén urance deficit Balance/En d 07-08 14:30:00 Que durance 14:30: [id number] 00 Gait/Locomo gait PT/OT: Resolve 2015-07-09 Rubén tion assistive Gait/Locom d 07-08 14:30:00 Que problems device otion 14:30: [id number] present 00 Gait/Locomo knowledge/s PT/OT: Resolve 2015-07-09 Rubén tion kill Gait/Locom d 07-08 14:30:00 Que problems deficit: pt otion 14:30: [id number] 00 Gait/Locomo gait PT/OT: Resolve 2015-07-09 Rubén tion deficit Gait/Locom d 07-08 14:30:00 Que problems otion 14:30: [id number] 00 Test/Treatm venipunctur Test/Injec Resolve 2015-07-16 Paula ent e ordered t/Sebastien d 07-09 14:00:00 Eri [id number] Gait/Locomo gait PT/OT: Resolve 2015-07-11 Rubén tion deficit Gait/Locom d 07-10 14:45:00 Que problems otion 14:45: [id number] 00 Gait/Locomo knowledge/s PT/OT: Resolve 2015-07-11 Rubén tion kill Gait/Locom d 07-10 14:45:00 Que problems deficit: pt otion 14:45: [id number] 00 Respiratory lung sounds Respirator Resolve 2015-07-16 Kavon deficit y d 07-11 14:00:00 [place] 09:00: [id number] 00 Respiratory oxygen Respirator Unknown Kavon treatments y 07-11 [place] in home 09:00: [id number] 00 Respiratory dyspnea Respirator Unknown Kavon present y 07-11 [place] 09:00: [id number] 00 Endo/Nito knowledge/s Endo/Nito Resolve 2015-07-16 Kavon kill d 07-11 14:00:00 [place] deficit: cg 09:00: [id number] 00 Endo/Nito knowledge/s Endo/Nito Resolve 2015-07-16 Kavon kill d 07-11 14:00:00 [place] deficit 09:00: [id number] hypo/hyperg 00 lycemia: pt Sensory impaired Sensory Resolve 2015-07-16 Kavon vision d 07-11 14:00:00 [place] 09:00: [id number] 00 Neuro seizures Neuro/Emot Resolve 2015-07-16 Kavon ion d 07-11 14:00:00 [place] 09:00: [id number] 00 Medication oral med Meds Unknown Kavon assistance 07-11 [place] required 09:00: [id number] 00 Musculoskel knowledge/s Musculoske Resolve 2015-07-16 Kavon etal kill letal d 07-11 14:00:00 [place] deficit: pt 09:00: [id number] 00 Psych psych risk Psych Resolve 2015-07-16 Kavon Problems factors d 07-11 14:00:00 [place] present 09:00: [id number] 00 Elimination constipatio Eliminatio Resolve 2015-07-26 Martina n n d 07-15 15:15:00 [place] 09:00: [id number] 00 Safety risk for Safety Resolve 2015-08-07 Rubén hospitaliza d 07-15 14:15:00 Que tion 14:00: [id number] 00 Bed transfer PT/OT: Bed Resolve 2015-07-16 Rubén Mobility/Tr deficit: Mobility/T d 07-15 14:00:00 Que ansfer sit/stand ransfer 14:00: [id number] 00 Gait/Locomo gait PT/OT: Resolve 2015-07-16 Rubén tion deficit Gait/Locom d 07-15 14:00:00 Que problems otion 14:00: [id number] 00 Gait/Locomo knowledge/s PT/OT: Resolve 2015-07-16 Rubén tion kill Gait/Locom d 07-15 14:00:00 Que problems deficit: pt otion 14:00: [id number] 00 Test/Treatm venipunctur Test/Injec Active Paula ent e ordered t/Sebastien 07-17 [place] [id number] Pain frequent Pain Mgmt Unknown Sara pain 07-20 Charli 11:00: [id number] 00 Respiratory oxygen Respirator Unknown Sara treatments y 07-20 Charli in home 11:00: [id number] 00 Respiratory lung sounds Respirator Resolve 2015-08-07 Sara deficit y d 07-20 14:15:00 Charli 11:00: [id number] 00 Endo/Nito diabetic Endo/Nito Resolve 2015-08-15 Sara foot care d 07-20 15:30:00 Charli 11:00: [id number] 00 Endo/Nito knowledge/s Endo/Nito Resolve 2015-08-15 Sara kill d 07-20 15:30:00 Augustin deficit 11:00: [id number] hypo/hyperg 00 lycemia: pt Endo/Nito insulin Endo/Nito Resolve 2016-12-09 Sara admn d 07-20 12:18:00 Augustin dependence 11:00: [id number] 00 Endo/Nito knowledge/s Endo/Nito Resolve 2015-08-15 Sara kill d 07-20 15:30:00 Charli deficit: pt 11:00: [id number] 00 Endo/Nito knowledge/s Endo/Nito Resolve 2015-08-15 Sara kill d 07-20 15:30:00 Charli deficit: cg 11:00: [id number] 00 Integument skin Integument Resolve 2015-08-07 Sara integrity d 07-20 14:15:00 Augustin risk 11:00: [id number] 00 Integument other wound Integument Resolve 2015-08-07 Saar present d 07-20 14:15:00 Augustin 11:00: [id number] 00 Neuro seizures Neuro/Emot Resolve 2015-08-07 Sara ion d 07-20 14:15:00 Augustin 11:00: [id number] 00 Neuro confusion Neuro/Emot Resolve 2015-08-07 Sara present ion d 07-20 14:15:00 Augustin 11:00: [id number] 00 Neuro anxiety Neuro/Emot Resolve 2015-08-07 Sara present ion d 07-20 14:15:00 Augustin 11:00: [id number] 00 Neuro depressive Neuro/Emot Resolve 2015-08-07 Sara feelings ion d 07-20 14:15:00 Augustin present 11:00: [id number] 00 Activity ADL Activity Unknown Sara assistance 07-20 Charli required 11:00: [id number] 00 Safety fall risk Safety Resolve 2015-08-07 Sara factor d 07-20 14:15:00 Augustin present 11:00: [id number] 00 Medication oral med Meds Resolve 2016-01-08 Sara assistance d 07-20 11:20:00 Charli required 11:00: [id number] 00 Medication injectable Meds Resolve 2016-09-15 Sara med d 07-20 09:00:00 Charli assistance 11:00: [id number] required 00 Musculoskel knowledge/s Musculoske Resolve 2015-08-07 Sara etal kill letal d 07-20 14:15:00 Charli deficit: pt 11:00: [id number] 00 Musculoskel transfer Musculoske Unknown Sara etal assistance letal 07-20 Charli required 11:00: [id number] 00 Bed transfer PT/OT: Bed Resolve 2015-07-26 Rubén Mobility/Tr deficit: Mobility/T d 07-25 15:15:00 Que mack sit/stand ransfer 15:15: [id number] 00 Gait/Locomo gait PT/OT: Resolve 2015-07-26 Rubén tion assistive Gait/Locom d 07-25 15:15:00 Que problems device otion 15:15: [id number] present 00 Gait/Locomo gait PT/OT: Resolve 2015-07-26 Rubén tion deficit Gait/Locom d 07-25 15:15:00 Que problems otion 15:15: [id number] 00 Gait/Locomo knowledge/s PT/OT: Resolve 2015-07-26 Rubén tion kill Gait/Locom d 07-25 15:15:00 Que problems deficit: pt otion 15:15: [id number] 00 Bed transfer PT/OT: Bed Resolve 2015-08-07 Rubén Mobility/Tr deficit: Mobility/T d 07-29 14:15:00 Que ansfer sit/stand ransfer 14:45: [id number] 00 Gait/Locomo knowledge/s PT/OT: Resolve 2015-07-30 Rubén tion kill Gait/Locom d 07-29 14:45:00 Que problems deficit: pt otion 14:45: [id number] 00 Gait/Locomo gait PT/OT: Resolve 2015-07-30 Rubén tion assistive Gait/Locom d 07-29 14:45:00 Que problems device otion 14:45: [id number] present 00 Gait/Locomo gait PT/OT: Resolve 2015-07-30 Rubén tion deficit Gait/Locom d 07-29 14:45:00 Que problems otion 14:45: [id number] 00 Respiratory dyspnea Respirator Unknown Paula present y 08-01 Eri 12:00: [id number] 00 Elimination urinary Eliminatio Resolve 2015-08-02 Paula incontinenc n d 08-01 12:00:00 Eri gaffney 12:00: [id number] 00 Neuro impaired Neuro/Emot Resolve 2015-08-07 Paula decision-ma ion d 08-01 14:15:00 Eri ibanez 12:00: [id number] 00 Musculoskel requires Musculoske Unknown Paula etal human letal 08-01 [place] assist to 12:00: [id number] leave home 00 Elimination urinary Eliminatio Resolve 2015-08-15 Rubén incontinenc n d 08-06 15:30:00 Que e 14:15: [id number] 00 Gait/Locomo gait PT/OT: Resolve 2015-08-10 Rubén tion assistive Gait/Locom d 08-06 13:10:00 Que problems device otion 14:15: [id number] present 00 Gait/Locomo knowledge/s PT/OT: Resolve 2015-08-10 Rubén tion kill Gait/Locom d 08-06 13:10:00 Que problems deficit: pt otion 14:15: [id number] 00 Gait/Locomo gait PT/OT: Resolve 2015-08-10 Rubén tion deficit Gait/Locom d 08-06 13:10:00 Que problems otion 14:15: [id number] 00 Safety risk for Safety Resolve 2015-08-15 Rubén hospitaliza d 08-09 15:30:00 Que tion 13:10: [id number] 00 Bed transfer PT/OT: Bed Resolve 2015-08-10 Rubén Mobility/Tr deficit: Mobility/T d 08-09 13:10:00 Que ansfer sit/stand ransfer 13:10: [id number] 00 Bed transfer PT/OT: Bed Resolve 2015-08-15 Rubén Mobility/Tr deficit: Mobility/T d 08-14 15:30:00 Que ansfer sit/stand ransfer 15:30: [id number] 00 Gait/Locomo gait PT/OT: Resolve 2015-08-15 Rubén tion assistive Gait/Locom d 08-14 15:30:00 Que problems device otion 15:30: [id number] present 00 Gait/Locomo knowledge/s PT/OT: Resolve 2015-08-15 Rubén tion kill Gait/Locom d 08-14 15:30:00 Que problems deficit: pt otion 15:30: [id number] 00 Gait/Locomo gait PT/OT: Resolve 2015-08-15 Rubén tion deficit Gait/Locom d 08-14 15:30:00 Que problems otion 15:30: [id number] 00 Safety risk for Safety Resolve 2015-08-16 Paula hospitaliza d 08-15 16:45:00 [place] tion 12:30: [id number] 00 Bed transfer PT/OT: Bed Resolve 2015-08-16 Rubén Mobility/Tr deficit: Mobility/T d 08-15 16:45:00 Que ansfer sit/stand ransfer 16:45: [id number] 00 Gait/Locomo gait PT/OT: Resolve 2015-08-16 Rubén tion deficit Gait/Locom d 08-15 16:45:00 Que problems otion 16:45: [id number] 00 Safety risk for Safety Resolve 2015-08-24 Rubén hospitaliza d 08-21 15:30:00 Que tion 14:45: [id number] 00 Bed transfer PT/OT: Bed Resolve 2015-08-22 Rubén Mobility/Tr deficit: Mobility/T d 08-21 14:45:00 Que ansfer sit/stand ransfer 14:45: [id number] 00 Gait/Locomo gait PT/OT: Resolve 2015-08-22 Rubén tion assistive Gait/Locom d 08-21 14:45:00 Que problems device otion 14:45: [id number] present 00 Gait/Locomo gait PT/OT: Resolve 2015-08-22 Rubén tion deficit Gait/Locom d 08-21 14:45:00 Que problems otion 14:45: [id number] 00 Bed transfer PT/OT: Bed Resolve 2015-08-24 Rubén Mobility/Tr deficit: Mobility/T d 08-23 15:30:00 Que ansfer sit/stand ransfer 15:30: [id number] 00 Gait/Locomo gait PT/OT: Resolve 2015-08-24 Rubén tion assistive Gait/Locom d 08-23 15:30:00 Que problems device otion 15:30: [id number] present 00 Gait/Locomo gait PT/OT: Resolve 2015-08-24 Rubén tion deficit Gait/Locom d 08-23 15:30:00 Que problems otion 15:30: [id number] 00 Safety risk for Safety Resolve 2015-08-31 [facility] 15:15:00 [place] tion 14:45: [id number] 00 Bed transfer PT/OT: Bed Resolve 2015-09-04 Rubén Mobility/Tr deficit: Mobility/T d 08-30 14:25:00 Que ansfer sit/stand ransfer 15:15: [id number] 00 Gait/Locomo gait PT/OT: Resolve 2015-08-31 Rubén tion assistive Gait/Locom d 6 15:15:00 Que problems device otion 15:15: [id number] present 00 Gait/Locomo gait PT/OT: Resolve 2015-08-31 Rubén tion deficit Gait/Locom d 08-30 15:15:00 Que problems otion 15:15: [id number] 00 Respiratory lung sounds Respirator Resolve 2015-10-22 Martina deficit y d 6- 10:30:00 [place] 11:30: [id number] 00 Safety risk for Safety Resolve 2015-09-06 Martina hospitaliza d 6- 16:15:00 Sinn[place] tion 11:30: [id number] 00 Gait/Locomo gait PT/OT: Resolve 2015-09-04 Rubén tion assistive Gait/Locom d 09-03 14:25:00 Que problems device otion 14:25: [id number] present 00 Gait/Locomo gait PT/OT: Resolve 2015-09-04 Rubén tion deficit Gait/Locom d 09-03 14:25:00 Que problems otion 14:25: [id number] 00 Bed transfer PT/OT: Bed Resolve 2015-09-06 Rubén Mobility/Tr deficit: Mobility/T d 09-05 16:15:00 Que ansfer sit/stand ransfer 16:15: [id number] 00 Gait/Locomo gait PT/OT: Resolve 2015-09-06 Rubén tion assistive Gait/Locom d 09-05 16:15:00 Que problems device otion 16:15: [id number] present 00 Gait/Locomo gait PT/OT: Resolve 2015-09-06 Rubén tion deficit Gait/Locom d 09-05 16:15:00 Que problems otion 16:15: [id number] 00 Safety risk for Safety Resolve 2015-09-10 Ru[facility]bn hospitaliza d 09-09 15:15:00 Que tion 15:15: [id number] 00 Bed transfer PT/OT: Bed Resolve 2015-09-10 Rubén Mobility/Tr deficit: Mobility/T d 09-09 15:15:00 Que ansfer sit/stand ransfer 15:15: [id number] 00 Gait/Locomo gait PT/OT: Resolve 2015-09-10 Rubén tion assistive Gait/Locom d 09-09 15:15:00 Que problems device otion 15:15: [id number] present 00 Gait/Locomo gait PT/OT: Resolve 2015-09-10 Rubén tion deficit Gait/Locom d 09-09 15:15:00 Que problems otion 15:15: [id number] 00 Safety risk for Safety Resolve 2015-09-17 Rubén hospitaliza d 09-12 15:15:00 Que tion 14:45: [id number] 00 Bed transfer PT/OT: Bed Resolve 2015-09-17 Rubén Mobility/Tr deficit: Mobility/T d 09-12 15:15:00 Que ansfer sit/stand ransfer 14:45: [id number] 00 Gait/Locomo gait PT/OT: Resolve 2015-09-17 Rubén tion assistive Gait/Locom d 09-12 15:15:00 Que problems device otion 14:45: [id number] present 00 Gait/Locomo gait PT/OT: Resolve 2015-09-17 Rubén tion deficit Gait/Locom d 09-12 15:15:00 Que problems otion 14:45: [id number] 00 Safety risk for Safety Resolve 2015-09-25 Rubén hospitaliza d 09-19 14:15:00 Que tion 14:45: [id number] 00 Bed transfer PT/OT: Bed Resolve 2015-09-20 Rubén Mobility/Tr deficit: Mobility/T d 09-19 14:45:00 Que ansfer sit/stand ransfer 14:45: [id number] 00 Gait/Locomo gait PT/OT: Resolve 2015-09-20 Rubén tion assistive Gait/Locom d 09-19 14:45:00 Que problems device otion 14:45: [id number] present 00 Gait/Locomo gait PT/OT: Resolve 2015-09-20 Rubén tion deficit Gait/Locom d 09-19 14:45:00 Que problems otion 14:45: [id number] 00 Bed transfer PT/OT: Bed Resolve 2015-09-25 Rubén Mobility/Tr deficit: Mobility/T d 09-24 14:15:00 Que ansfer sit/stand ransfer 14:15: [id number] 00 Bed bed PT/OT: Bed Resolve 2015-09-25 Rubén Mobility/Tr mobility Mobility/T d 09-24 14:15:00 Que ansfer deficit ransfer 14:15: [id number] Safety risk for Safety Resolve 2015-09-27 Rubén hospitaliza d 09-26 14:00:00 Que tion 14:00: [id number] 00 Bed transfer PT/OT: Bed Resolve 2015-09-27 Rubén Mobility/Tr deficit: Mobility/T d 09-26 14:00:00 Que ansfer sit/stand ransfer 14:00: [id number] 00 Gait/Locomo gait PT/OT: Resolve 2015-09-27 Rubén tion assistive Gait/Locom d 09-26 14:00:00 Que problems device otion 14:00: [id number] present 00 Gait/Locomo gait PT/OT: Resolve 2015-09-27 Rubén tion deficit Gait/Locom d 09-26 14:00:00 Que problems otion 14:00: [id number] 00 Safety risk for Safety Resolve 2015-10-22 Martina hospitaliza d 09-30 10:30:00 Sinnigen tion 09:30: [id number] Bed transfer PT/OT: Bed Resolve 2015-10-03 Rub[facility] Mobility/Tr deficit: Mobility/T d 10-01 12:45:00 Que ansfer sit/stand ransfer 14:00: [id number] 00 Gait/Locomo gait PT/OT: Resolve 2015-10-02 Rubén tion assistive Gait/Locom d 7-12 14:00:00 Que problems device otion 14:00: [id number] present 00 Gait/Locomo knowledge/s PT/OT: Resolve 2015-10-02 Rubén tion kill Gait/Locom d 10-01 14:00:00 Que problems deficit: pt otion 14:00: [id number] Gait/Locomo gait PT/OT: Resolve 2015-10-02 Rubén tion deficit Gait/Locom d 10-01 14:00:00 Que problems otion 14:00: [id number] 00 Respiratory oxygen Respirator Unknown Paula treatments y 7- [place] in home 10:00: [id number] 00 Respiratory dyspnea Respirator Unknown Paula present y 10-02 [place] 10:00: [id number] 00 Neuro impaired Neuro/Emot Resolve 2015-10-29 Paula decision-ma ion d 7-13 10:00:00 Eri marcelle 10:00: [id number] 00 Neuro memory Neuro/Emot Resolve 2015-11-19 Paula deficit ion d 13 10:00:00 [place] needing 10:00: [id number] supervision 00 Activity ADL Activity Resolve 2016-02-18 [place] assistance d 10-02 09:30:00 Eri required 10:00: [id number] 00 Safety fall risk Safety Resolve 2015-10-22 Paula factor d -13 10:30:00 Eri present 10:00: [id number] Safety can be left Safety Resolve 2015-10-22 Paula alone for d 10-02 10:30:00 Eri only short 10:00: [id number] periods 00 Musculoskel requires Musculoske Resolve 2016-07-14 Paula etal human letal d 10-02 09:45:00 Eri assist to 10:00: [id number] leave home 00 Gait/Locomo gait PT/OT: Resolve 2015-10-03 Rubén tion assistive Gait/Locom d 7- 12:45:00 Que problems device otion 12:45: [id number] present 00 Gait/Locomo knowledge/s PT/OT: Resolve 2016-0 2015-10-03 Rubén tion kill Gait/Locom d 10-02 12:45:00 Que problems deficit: pt otion 12:45: [id number] 00 Gait/Locomo gait PT/OT: Resolve 2015-10-03 Rubén tion deficit Gait/Locom d 10-02 12:45:00 Que problems otion 12:45: [id number] 00 Bed transfer PT/OT: Bed Resolve 2015-10-08 Rubén Mobility/Tr deficit: Mobility/T d 10-07 14:45:00 Que ansfer sit/stand ransfer 14:45: [id number] 00 Gait/Locomo knowledge/s PT/OT: Resolve 2015-10-08 Rubén tion kill Gait/Locom d 10-07 14:45:00 Que problems deficit: pt otion 14:45: [id number] 00 Gait/Locomo gait PT/OT: Resolve 2015-10-08 Rubén tion deficit Gait/Locom d 10-07 14:45:00 Que problems otion 14:45: [id number] 00 Bed transfer PT/OT: Bed Resolve 2015-10-11 Rubén Mobility/Tr deficit: Mobility/T d 10-10 14:30:00 Que ansfer sit/stand ransfer 14:30: [id number] 00 Gait/Locomo gait PT/OT: Resolve 2015-10-11 Rubén tion assistive Gait/Locom d 10-10 14:30:00 Que problems device otion 14:30: [id number] present 00 Gait/Locomo knowledge/s PT/OT: Resolve 2015-10-11 Rubén tion kill Gait/Locom d 10-10 14:30:00 Que problems deficit: pt otion 14:30: [id number] 00 Gait/Locomo gait PT/OT: Resolve 2015-10-11 Rubén tion deficit Gait/Locom d 10-10 14:30:00 Que problems otion 14:30: [id number] 00 Respiratory dyspnea Respirator Unknown Analilia present y 10-14 [place] 09:45: [id number] 00 Safety structural Safety Resolve 2015-10-22 Analilia barriers d 10-14 10:30:00 [place] present 09:45: [id number] 00 Musculoskel transfer Musculoske Resolve 2016-07-14 Analilia etal assistance letal d 10-14 09:45:00 [place] required 09:45: [id number] 00 Musculoskel requires Musculoske Resolve 2016-07-14 Analilia etal special letal d 10-14 09:45:00 [place] transportat 09:45: [id number] ion 00 Bed transfer PT/OT: Bed Resolve 2015-10-18 Rubén Mobility/Tr deficit: Mobility/T d 10-14 14:00:00 Que ansfer sit/stand ransfer 12:50: [id number] 00 Gait/Locomo gait PT/OT: Resolve 2015-10-15 Rubén tion assistive Gait/Locom d 10-14 12:50:00 Que problems device otion 12:50: [id number] present 00 Gait/Locomo knowledge/s PT/OT: Resolve 2015-10-15 Rubén tion kill Gait/Locom d 10-14 12:50:00 Que problems deficit: pt otion 12:50: [id number] 00 Gait/Locomo gait PT/OT: Resolve 2015-10-15 Rubén tion deficit Gait/Locom d 10-14 12:50:00 Que problems otion 12:50: [id number] 00 Gait/Locomo gait PT/OT: Resolve 2015-10-18 Rubén tion assistive Gait/Locom d 10-17 14:00:00 Que problems device otion 14:00: [id number] present 00 Gait/Locomo knowledge/s PT/OT: Resolve 2015-10-18 Rubén tion kill Gait/Locom d 10-17 14:00:00 Que problems deficit: pt otion 14:00: [id number] 00 Gait/Locomo gait PT/OT: Resolve 2015-10-18 Rubén tion deficit Gait/Locom d 10-17 14:00:00 Que problems otion 14:00: [id number] 00 Respiratory CPAP Respirator Unknown [facility] treatments y 10-21 [place] in home 10:30: [id number] 00 Endo/Nito glucose Endo/Nito Resolve 2015-11-19 Cher[place] tolerance d 10-21 10:00:00 Greg problem 10:30: [id number] 00 Elimination urinary Eliminatio Resolve 2015-11-23 Cherrise incontinenc n d 10-21 08:55:00 Greg e 10:30: [id number] 00 Elimination constipatio Eliminatio Resolve 2015-11-23 Cher[facility] n n d 10-21 08:55:00 Greg 10:30: [id number] 00 Safety sanitation Safety Resolve 2015-10-22 Cherrise hazards d 10-21 10:30:00 Greg present 10:30: [id number] 00 Safety risk for Safety Resolve 2015-10-29 Rubén hospitaliza d 10-22 10:00:00 Que tion 13:15: [id number] 00 Gait/Locomo gait PT/OT: Resolve 2015-10-23 Rubén tion assistive Gait/Locom d 10-22 13:15:00 Que problems device otion 13:15: [id number] present 00 Gait/Locomo knowledge/s PT/OT: Resolve 2015-10-23 Rubén tion kill Gait/Locom d 10-22 13:15:00 Que problems deficit: pt otion 13:15: [id number] 00 Gait/Locomo gait PT/OT: Resolve 2015-10-23 Rubén tion deficit Gait/Locom d 10-22 13:15:00 Que problems otion 13:15: [id number] 00 Gait/Locomo gait PT/OT: Resolve 2015-10-26 Rubén tion assistive Gait/Locom d 10-25 12:15:00 Que problems device otion 12:15: [id number] present 00 Gait/Locomo knowledge/s PT/OT: Resolve 2015-10-26 Rubén tion kill Gait/Locom d 10-25 12:15:00 Que problems deficit: pt otion 12:15: [id number] 00 Gait/Locomo gait PT/OT: Resolve 2015-10-26 Rubén tion deficit Gait/Locom d 10-25 12:15:00 Que problems otion 12:15: [id number] 00 Pain frequent Pain Mgmt Unknown Cherrise pain 10-28 Greg 10:00: [id number] 00 Respiratory oxygen Respirator Unknown Cher[facility] treatments y 10-28 [place] in home 10:00: [id number] 00 Neuro seizures Neuro/Emot Resolve 2015-2015-10-29 [facility] ion d 10-28 10:00:00 [place] 10:00: [id number] 00 Safety structural Safety Resolve 2015-2015-10-29 Cher[facility] barriers d 10-28 10:00:00 [place] present 10:00: [id number] 00 Safety sanitation Safety Resolve 2015-10-29 Cher[facility] hazards d 10-28 10:00:00 [place] present 10:00: [id number] 00 Safety fall risk Safety Resolve 2015-10-29 Cher[place] factor d 10-28 10:00:00 Greg present 10:00: [id number] 00 Safety can be left Safety Resolve 2015-10-29 Cher[place] alone for d 10-28 10:00:00 Greg only short 10:00: [id number] periods 00 Safety risk for Safety Resolve 2015-11-19 Rubén hospitaliza d 10-29 10:00:00 Que tion 13:30: [id number] 00 Gait/Locomo gait PT/OT: Resolve 2015-10-30 Rubén tion assistive Gait/Locom d 10-29 13:30:00 Que problems device otion 13:30: [id number] present 00 Gait/Locomo knowledge/s PT/OT: Resolve 2015-10-30 Rubén tion kill Gait/Locom d 10-29 13:30:00 Que problems deficit: pt otion 13:30: [id number] 00 Gait/Locomo gait PT/OT: Resolve 2015-10-30 Rubén tion deficit Gait/Locom d 10-29 13:30:00 Que problems otion 13:30: [id number] 00 Gait/Locomo gait PT/OT: Resolve 2015-11-02 Rubén tion assistive Gait/Locom d 11-01 13:15:00 Que problems device otion 13:15: [id number] present 00 Gait/Locomo knowledge/s PT/OT: Resolve 2015-2015-11-02 Rubén tion kill Gait/Locom d 11-01 13:15:00 Que problems deficit: pt otion 13:15: [id number] 00 Gait/Locomo gait PT/OT: Resolve 2015-11-02 Rubén tion deficit Gait/Locom d 11-01 13:15:00 Que problems otion 13:15: [id number] 00 Respiratory lung sounds Respirator Resolve 2015-2016-02-25 Analilia deficit y d 8 09:35:00 [place] 16:00: [id number] 00 Elimination urinary Eliminatio Resolve 2015-11-23 Analilia frequency n d 11-04 08:55:00 [place] 16:00: [id number] 00 Safety fall risk Safety Resolve 2015-11-19 Analilia factor d 815 10:00:00 [place] present 16:00: [id number] 00 Gait/Locomo gait PT/OT: Resolve 2015-11-06 Rubén tion assistive Gait/Locom d 11-05 14:05:00 Que problems device otion 14:05: [id number] present 00 Gait/Locomo knowledge/s PT/OT: Resolve 2015-11-06 Rubén tion kill Gait/Locom d 11-05 14:05:00 Que problems deficit: pt otion 14:05: [id number] 00 Gait/Locomo gait PT/OT: Resolve 2015-11-06 Rubén tion deficit Gait/Locom d 11-05 14:05:00 Que problems otion 14:05: [id number] 00 Endo/Nito insulin Endo/Nito Unknown Cher[facility] admn 11-18 [place] dependence 10:00: [id number] 00 Endo/Nito glucose Endo/Nito Resolve 2017-03-24 [facility] testing d 11-18 14:32:00 [place] dependence 10:00: [id number] 00 Neuro impaired Neuro/Emot Resolve 2016-01-14 [facility] decision-ma ion d 11-18 09:45:00 Greg marcelle 10:00: [id number] 00 Neuro seizures Neuro/Emot Resolve 2015-11-19 [facility] ion d 11-18 10:00:00 [place] 10:00: [id number] 00 Safety sanitation Safety Resolve 2015-12-24 Cher[facility] hazards d 11-18 09:30:00 [place] present 10:00: [id number] 00 Neuro memory Neuro/Emot Unknown [facility] deficit ion 11-18 [place] needing 12:15: [id number] supervision 00 Safety risk for Safety Unknown [facility] hospitaliza 11-18 [place] tion 12:15: [id number] 00 Neuro seizures Neuro/Emot Resolve 2015-12-10 Paula ion d 11-22 09:45:00 Eri 08:55: [id number] 00 Safety risk for Safety Resolve 2015-12-10 Paula hospitaliza d 11-22 09:45:00 [place] tion 08:55: [id number] 00 Infection s/s of Infection Resolve 2017-03-24 Sonia infection d 11-27 14:32:00 [place] 09:40: RN 00 Nutrition knowledge/s Nutrition Resolve 2016-01-21 Sonia kill d 11-27 09:30:00 [place] deficit: pt 09:40: RN 00 Safety can be left Safety Resolve 2015-12-24 [place] alone for d 11-27 09:30:00 [place] only short 09:40: RN periods 00 Gait/Locomo gait PT/OT: Resolve 2015-12-05 Rubén tion assistive Gait/Locom d 11-27 14:00:00 Que problems device otion 14:15: [id number] present 00 Gait/Locomo knowledge/s PT/OT: Resolve 2015-12-05 Rubén tion kill Gait/Locom d 11-27 14:00:00 Que problems deficit: pt otion 14:15: [id number] 00 Gait/Locomo gait PT/OT: Resolve 2015-12-05 Rubén tion deficit Gait/Locom d 11-27 14:00:00 Que problems otion 14:15: [id number] 00 Sensory impaired Sensory Resolve 2016-09-15 Paula vision d 12-02 09:00:00 [place] 11:06: [id number] 00 Elimination recurring Eliminatio Resolve 2015-12-24 Paula UTI n d 12-02 09:30:00 [place] 11:06: [id number] 00 Safety fall risk Safety Resolve 2015-12-10 Paula factor d 12-02 09:45:00 [place] present 11:06: [id number] 00 Bed transfer PT/OT: Bed Resolve 2015-12-05 Rubén Mobility/Tr deficit: Mobility/T d 12-02 14:00:00 Que ansfer sit/stand ransfer 15:00: [id number] 00 Bed bed PT/OT: Bed Resolve 2015-12-05 Rubén Mobility/Tr mobility Mobility/T d 12-02 14:00:00 Que ansfer deficit ransfer 15:00: [id number] 00 Endo/Nito glucose Endo/Nito Resolve 2015-12-10 Cher[place] tolerance d 12-09 09:45:00 [place] problem 09:45: [id number] 00 Elimination constipatio Eliminatio Resolve 2016-03-03 [facility] n n d 12-09 10:10:00 Greg 09:45: [id number] 00 Elimination urinary Eliminatio Resolve 2015-12-17 Cher[facility] incontinenc n d 12-09 09:30:00 [place] e 09:45: [id number] 00 Safety structural Safety Resolve 2015-12-24 [facility] barriers d 12-09 09:30:00 [place] present 09:45: [id number] 00 Safety risk for Safety Resolve 2015-12-24 [facility] hospitaliza d 12-10 09:30:00 [place] tion 11:20: [id number] 00 Bed transfer PT/OT: Bed Resolve 2016-01-04 Rubén Mobility/Tr deficit: Mobility/T d 12-12 15:15:00 Que ansfer sit/stand ransfer 12:45: [id number] 00 Gait/Locomo gait PT/OT: Resolve 2015-12-21 Rubén tion assistive Gait/Locom d 12-12 14:30:00 Que problems device otion 12:45: [id number] present 00 Gait/Locomo knowledge/s PT/OT: Resolve 2015-12-21 Rubén tion kill Gait/Locom d 12-12 14:30:00 Que problems deficit: pt otion 12:45: [id number] 00 Gait/Locomo gait PT/OT: Resolve 2015-12-21 Rubén tion deficit Gait/Locom d 12-12 14:30:00 Que problems otion 12:45: [id number] 00 Endo/Nito glucose Endo/Nito Resolve 2016-01-14 [facility] tolerance d 12-16 09:45:00 [place] problem 09:30: [id number] 00 Sensory impaired Sensory Resolve 2016-09-15 [facility] hearing d 12-16 09:00:00 [place] 09:30: [id number] 00 Elimination knowledge/s Eliminatio Resolve 2015-12-17 [place] kill n d 12-16 09:30:00 [place] deficit: pt 09:30: [id number] 00 Elimination knowledge/s Eliminatio Resolve 2015-12-17 [facility] kill n d 12-16 09:30:00 [place] deficit: cg 09:30: [id number] 00 Safety fall risk Safety Resolve 2015-12-24 [facility] factor d 12-16 09:30:00 Greg present 09:30: [id number] 00 Elimination urinary Eliminatio Resolve 2015-032016-01-14 [facility] incontinenc n d 0 09:45:00 [place] e 09:30: [id number] 00 Elimination urinary Eliminatio Resolve 2015-032016-01-14 [place] frequency n d 0 09:45:00 [place] 09:30: [id number] 00 Elimination knowledge/s Eliminatio Resolve 2015-032015-12-24 [place] kill n d 0 09:30:00 [place] deficit: pt 09:30: [id number] 00 Safety risk for Safety Resolve 2015-032016-01-08 Rubén hospitaliza d 0 11:20:00 Que tion 14:30: [id number] 00 Gait/Locomo gait PT/OT: Resolve 2015-032016-01-04 Rubén tion assistive Gait/Locom d 0-04 15:15:00 Que problems device otion 14:30: [id number] present 00 Gait/Locomo knowledge/s PT/OT: Resolve 2015-032016-01-04 Rubén tion kill Gait/Locom d 0-04 15:15:00 Que problems deficit: pt otion 14:30: [id number] 00 Gait/Locomo gait PT/OT: Resolve 2015-032016-01-04 Rubén tion deficit Gait/Locom d 0-04 15:15:00 Que problems otion 14:30: [id number] 00 Safety can be left Safety Resolve 2015-032016-02-04 Paula alone for d 0-07 09:45:00 Eri only short 08:00: [id number] periods 00 Endo/Nito diabetic Endo/Nito Resolve 2015-032016-01-14 Paula foot care d 0-13 09:45:00 Eri 12:00: [id number] 00 Neuro confusion Neuro/Emot Resolve 2015-032016-01-14 Paula present ion d 0-13 09:45:00 Eri 12:00: [id number] 00 Neuro anxiety Neuro/Emot Resolve 2015-032016-01-14 Paula present ion d 0-13 09:45:00 [place] 12:00: [id number] 00 Neuro seizures Neuro/Emot Resolve 2015-032016-01-08 Paula ion d 0-13 11:20:00 [place] 12:00: [id number] 00 Safety fall risk Safety Resolve 2015-032016-01-08 Paula factor d 0-13 11:20:00 Eri present 12:00: [id number] 00 Medication potential Meds Resolve 2015-032016-01-08 Paula clinically d 0-13 11:20:00 [place] significant 12:00: [id number] medication 00 issue Safety structural Safety Resolve 2015-032016-01-08 [place] barriers d 0-18 11:20:00 [place] present 11:20: [id number] 00 Safety sanitation Safety Resolve 2015-032016-01-08 Cher[place] hazards d 0-18 11:20:00 [place] present 11:20: [id number] 00 Safety risk for Safety Resolve 2015-032016-01-14 Rubén hospitaliza d 0-20 09:45:00 Que tion 14:15: [id number] 00 Bed transfer PT/OT: Bed Resolve 2015-032016-01-10 Rubén Mobility/Tr deficit: Mobility/T d 0-20 14:15:00 Que ansfer sit/stand ransfer 14:15: [id number] 00 Gait/Locomo gait PT/OT: Resolve 2015-032016-01-16 Rubén tion assistive Gait/Locom d 0-20 16:00:00 Que problems device otion 14:15: [id number] present 00 Gait/Locomo knowledge/s PT/OT: Resolve 2015-032016-01-16 Rubén tion kill Gait/Locom d 0-20 16:00:00 Que problems deficit: pt otion 14:15: [id number] 00 Gait/Locomo gait PT/OT: Resolve 2015-032016-01-16 Rubén tion deficit Gait/Locom d 0-20 16:00:00 Que problems otion 14:15: [id number] 00 Safety structural Safety Resolve 2015-032016-01-14 Anal[place] barriers d 0-21 09:45:00 [place] present 10:08: [id number] 00 Safety fall risk Safety Resolve 2015-032016-01-14 Anal[place] factor d 0-21 09:45:00 [place] present 10:08: [id number] 00 Bed transfer PT/OT: Bed Resolve 2015-032016-01-16 Rubén Mobility/Tr deficit: Mobility/T d 0-21 16:00:00 Que ansfer sit/stand ransfer 13:45: [id number] 00 Endo/Nito knowledge/s Endo/Nito Resolve 2015-032016-01-14 [place] kill d 0-24 09:45:00 Greg deficit: pt 09:45: [id number] 00 Endo/Nito knowledge/s Endo/Nito Resolve 2015-032016-01-14 [place] kill d 0-24 09:45:00 [place] deficit: cg 09:45: [id number] 00 Endo/Nito knowledge/s Endo/Nito Resolve 2015-032016-01-14 [place] kill d 0-24 09:45:00 Greg deficit 09:45: [id number] hypo/hyperg 00 lycemia: pt Endo/Nito knowledge/s Endo/Nito Resolve 2015-032016-01-14 [facility] kill d 0-24 09:45:00 Greg deficit 09:45: [id number] hypo/hyperg 00 lycemia: cg Elimination diarrhea Eliminatio Resolve 2015-032016-03-03 [facility] n d 0 10:10:00 [place] 09:45: [id number] 00 Neuro depressive Neuro/Emot Resolve 2015-032016-01-14 [facility] feelings ion d 0 09:45:00 [place] present 09:45: [id number] 00 Safety sanitation Safety Resolve 2015-032016-01-14 [facility] hazards d 0 09:45:00 [place] present 09:45: [id number] 00 Safety risk for Safety Resolve 2015-032016-01-21 [facility] hospitaliza d 0 09:30:00 [place] tion 13:45: RN 00 Bed transfer PT/OT: Bed Resolve 2015-032016-01-17 Rubén Mobility/Tr deficit: Mobility/T d 0 14:00:00 Que ansfer sit/stand ransfer 14:00: [id number] 00 Gait/Locomo gait PT/OT: Resolve 2015-032016-01-17 Rubén tion assistive Gait/Locom d 0 14:00:00 Que problems device otion 14:00: [id number] present 00 Gait/Locomo knowledge/s PT/OT: Resolve 2015-032016-01-17 Rubén tion kill Gait/Locom d 0 14:00:00 Que problems deficit: pt otion 14:00: [id number] 00 Gait/Locomo gait PT/OT: Resolve 2015-032016-01-17 Rubén tion deficit Gait/Locom d 0 14:00:00 Que problems otion 14:00: [id number] 00 Endo/Nito glucose Endo/Nito Resolve 2015-032016-01-21 [facility] tolerance d 0 09:30:00 Greg problem 09:30: [id number] 00 Endo/Nito knowledge/s Endo/Nito Resolve 2015-032016-01-21 [facility] kill d 0-31 09:30:00 [place] deficit: pt 09:30: [id number] 00 Endo/Nito knowledge/s Endo/Nito Resolve 2015-032016-01-21 [facility] kill d 0-31 09:30:00 Gerg deficit 09:30: [id number] hypo/hyperg 00 lycemia: pt Endo/Nito knowledge/s Endo/Nito Resolve 2015-032016-01-21 [facility] kill d 0- 09:30:00 [place] deficit 09:30: [id number] hypo/hyperg 00 lycemia: cg Neuro memory Neuro/Emot Resolve 2015-032016-02-04 [facility] deficit ion d 0- 09:45:00 Greg needing 09:30: [id number] supervision 00 Neuro impaired Neuro/Emot Resolve 2015-032016-01-21 [facility] decision-ma ion d 0- 09:30:00 [place] marcelle 09:30: [id number] 00 Safety structural Safety Resolve 2015-032016-01-21 [facility] barriers d 0-31 09:30:00 Greg present 09:30: [id number] 00 Safety sanitation Safety Resolve 2015-032016-01-21 [facility] hazards d 0-31 09:30:00 Greg present 09:30: [id number] 00 Safety fall risk Safety Resolve 2015-032016-01-21 [facility] factor d 0-31 09:30:00 Greg present 09:30: [id number] 00 Safety risk for Safety Resolve 2015-032016-02-04 [facility] hospitaliza d 03-23 09:45:00 Que tion 14:30: [id number] 00 Bed bed PT/OT: Bed Resolve 2015-032016-01-22 Rubén Mobility/Tr mobility Mobility/T d 03-23 14:30:00 Que ansfer deficit ransfer 14:30: [id number] 00 Bed transfer PT/OT: Bed Resolve 2015-032016-01-22 Rubén Mobility/Tr deficit: Mobility/T d 03-23 14:30:00 Que poefer sit/stand ransfer 14:30: [id number] 00 Gait/Locomo gait PT/OT: Resolve 2015-032016-01-22 Rubén tion assistive Gait/Locom d 03-23 14:30:00 Que problems device otion 14:30: [id number] present 00 Gait/Locomo knowledge/s PT/OT: Resolve 2015-032016-01-22 Rubén tion kill Gait/Locom d 03-23 14:30:00 Que problems deficit: pt otion 14:30: [id number] 00 Gait/Locomo gait PT/OT: Resolve 2015-032016-01-22 Rubén tion deficit Gait/Locom d 03-23 14:30:00 Que problems otion 14:30: [id number] 00 Bed transfer PT/OT: Bed Resolve 2015-032016-01-28 Rubén Mobility/Tr deficit: Mobility/T d 03-25 14:15:00 Que ansfer sit/stand ransfer 14:15: [id number] 00 Gait/Locomo gait PT/OT: Resolve 2015-032016-01-28 Rubén tion assistive Gait/Locom d 03-25 14:15:00 Que problems device otion 14:15: [id number] present 00 Gait/Locomo knowledge/s PT/OT: Resolve 2015-032016-01-28 Rubén tion kill Gait/Locom d 03-25 14:15:00 Que problems deficit: pt otion 14:15: [id number] 00 Gait/Locomo gait PT/OT: Resolve 2015-032016-01-28 Rubén tion deficit Gait/Locom d 03-25 14:15:00 Que problems otion 14:15: [id number] 00 Bed transfer PT/OT: Bed Resolve 2015-032016-04-07 Rubén Mobility/Tr deficit: Mobility/T d 04-01 11:15:00 Que ansfer sit/stand ransfer 13:45: [id number] 00 Gait/Locomo gait PT/OT: Resolve 2015-032016-02-15 Rubén tion assistive Gait/Locom d 04-01 09:45:00 Que problems device otion 13:45: [id number] present 00 Gait/Locomo gait PT/OT: Resolve 2015-032016-02-15 Rubén tion deficit Gait/Locom d 04-01 09:45:00 Que problems otion 13:45: [id number] 00 Elimination urinary Eliminatio Resolve 2015-032016-02-04 S[place] incontinenc n d 04-02 09:45:00 [place] e 09:00: RN 00 Safety fall risk Safety Resolve 2015-032016-02-04 [place] factor d 04-02 09:45:00 [place] present 09:00: RN 00 IV k/s IV Resolve 2015-032016-03-10 [place] deficit: IV d 04-02 12:40:00 [place] care - pt 09:00: RN 00 IV k/s IV Resolve 2015-032016-03-10 [place] deficit: IV d 04-02 12:40:00 [place] care - cg 09:00: RN 00 IV IV present IV Resolve 2015-032016-03-10 Sonia d 04-02 12:40:00 [place] 09:00: RN 00 Endo/Nito glucose Endo/Nito Resolve 2015-032016-02-04 [facility] tolerance d 04-05 09:45:00 [place] problem 09:45: [id number] 00 Endo/Nito knowledge/s Endo/Nito Resolve 2015-032016-02-04 [facility] kill d 04-05 09:45:00 [place] deficit: pt 09:45: [id number] 00 Endo/Nito knowledge/s Endo/Nito Resolve 2015-032016-02-04 [facility] kill d 04-05 09:45:00 [place] deficit: cg 09:45: [id number] 00 Elimination recurring Eliminatio Resolve 2015-032016-04-07 [facility] UTI n d 04-05 10:40:00 Greg 09:45: [id number] 00 Elimination urinary Eliminatio Resolve 2015-032016-02-04 [facility] frequency n d 04-05 09:45:00 Gerg 09:45: [id number] 00 Neuro impaired Neuro/Emot Resolve 2015-032016-02-18 [facility] decision-ma ion d 04-05 09:30:00 [place] marcelle 09:45: [id number] 00 Safety structural Safety Resolve 2015-032016-02-04 [facility] barriers d 04-05 09:45:00 [place] present 09:45: [id number] 00 Safety sanitation Safety Resolve 2015-032016-02-04 [facility] hazards d 04-05 09:45:00 [place] present 09:45: [id number] 00 Safety risk for Safety Resolve 2015-032016-02-18 S[facility] hospitaliza d 04-09 09:30:00 [place] tion 14:50: RN 00 Nutrition knowledge/s Nutrition Resolve 2015-032016-02-25 [place] kill d 04-12 09:35:00 [place] deficit: pt 09:10: RN 00 Nutrition knowledge/s Nutrition Resolve 2015-032016-02-25 [place] kill d 04-12 09:35:00 [place] deficit: cg 09:10: RN 00 Elimination urinary Eliminatio Resolve 2015-032016-02-18 [place] incontinenc n d 04-12 09:30:00 [place] e 09:10: RN 00 Safety can be left Safety Resolve 2015-032016-02-18 [place] alone for d 04-12 09:30:00 [place] only short 09:10: RN periods 00 Endo/Nito glucose Endo/Nito Resolve 2015-032016-02-18 [place] tolerance d 04-19 09:30:00 [place] problem 09:30: [id number] 00 Endo/Nito knowledge/s Endo/Nito Resolve 2015-032016-02-18 [facility] kill d 04-19 09:30:00 [place] deficit: pt 09:30: [id number] 00 Endo/Nito knowledge/s Endo/Nito Resolve 2015-032016-02-18 [facility] kill d 04-19 09:30:00 Greg deficit: cg 09:30: [id number] 00 Neuro anxiety Neuro/Emot Resolve 2015-032016-02-18 [facility] present ion d 04-19 09:30:00 Greg 09:30: [id number] 00 Neuro depressive Neuro/Emot Resolve 2015-032016-02-18 [facility] feelings ion d 04-19 09:30:00 Greg present 09:30: [id number] 00 Safety structural Safety Resolve 2015-032016-02-18 [place] barriers d 04-19 09:30:00 Greg present 09:30: [id number] 00 Safety sanitation Safety Resolve 2015-032016-02-18 [place] hazards d 04-19 09:30:00 [place] present 09:30: [id number] 00 Safety fall risk Safety Resolve 2015-032016-02-18 [place] factor d 04-19 09:30:00 Greg present 09:30: [id number] 00 Elimination urinary Eliminatio Resolve 2015-032016-03-03 Sonia incontinenc n d 2-05 10:10:00 Malnoske e 09:35: RN 00 Safety structural Safety Resolve 2015-032016-03-03 Sonia barriers d 2-05 10:10:00 Malnoske present 09:35: RN 00 Safety sanitation Safety Resolve 2015-032016-03-03 Sonia hazards d -05 10:10:00 Malnoske present 09:35: RN 00 Safety fall risk Safety Resolve 2015-032016-03-03 Sonia factor d 2-05 10:10:00 Malnoske present 09:35: RN 00 Safety risk for Safety Resolve 2015-032016-03-03 Sonia hospitaliza d 2-05 10:10:00 Malnoske tion 09:35: RN 00 Safety can be left Safety Resolve 2015-032016-03-18 Sonia alone for d 04-27 09:00:00 Malnoske only short 09:35: RN periods 00 Cardio hypertensio Cardiovasc Resolve 2015-032016-12-09 Cherrise n ular d 05-04 12:18:00 [place] 10:10: [id number] 00 Endo/Nito glucose Endo/Nito Resolve 2015-032016-05-19 Cherrise tolerance d 05-04 09:45:00 Greg problem 10:10: [id number] 00 Endo/Nito knowledge/s Endo/Nito Resolve 2015-032016-05-19 Cherrise kill d 05-04 09:45:00 Greg deficit: pt 10:10: [id number] 00 Endo/Nito knowledge/s Endo/Nito Resolve 2015-032016-05-19 Cherrise kill d 05-04 09:45:00 Greg deficit: cg 10:10: [id number] 00 Endo/Nito knowledge/s Endo/Nito Resolve 2015-032016-05-19 Cherrise kill d 2-12 09:45:00 Ot[place] deficit 10:10: [id number] hypo/hyperg 00 lycemia: pt Endo/Nito knowledge/s Endo/Nito Resolve 2015-032016-05-19 Cherrise kill d 2-12 09:45:00 Greg deficit 10:10: [id number] hypo/hyperg 00 lycemia: cg Nutrition knowledge/s Nutrition Resolve 2015-032016-03-25 Cherrise kill d 2- 12:10:00 [place] deficit: pt 10:10: [id number] 00 Nutrition knowledge/s Nutrition Resolve 2015-032016-03-25 Cherrise kill d 2- 12:10:00 Greg deficit: cg 10:10: [id number] 00 Elimination urinary Eliminatio Resolve 2015-032016-03-03 Cherrise urgency n d 2- 10:10:00 [place] 10:10: [id number] 00 Elimination urinary Eliminatio Resolve 2015-032016-03-03 Cherrise frequency n d 05-04 10:10:00 Greg 10:10: [id number] 00 Safety risk for Safety Resolve 2015-032016-03-18 Sonia hospitaliza d 2-14 09:00:00 [place] tion 16:00: RN 00 Respiratory lung sounds Respirator Resolve 2015-032016-03-10 Sonia deficit y d 2-19 12:40:00 [place] 12:40: RN 00 Respiratory oxygen Respirator Unknown 2015-03 Sonia treatments y 2-19 Mal[place] in home 12:40: RN 00 Endo/Nito insulin Endo/Nito Unknown 2015-03 Sonia admn 2- Mal[place]ke dependence 12:40: RN 00 Endo/Nito glucose Endo/Nito Unknown 2015-03 Sonia testing - Mal[place]ke dependence 12:40: RN 00 Elimination urinary Eliminatio Resolve 2015-032016-04-07 Snoia incontinenc n d 2-19 10:40:00 Mal[place]ke e 12:40: RN 00 Neuro depressive Neuro/Emot Resolve 2015-032016-05-19 Cherrise feelings ion d 05-19 09:45:00 Greg present 09:00: [id number] 00 Neuro impaired Neuro/Emot Resolve 2015-032016-06-16 Cherrise decision-ma ion d 05-19 10:31:00 Otisco marcelle 09:00: [id number] 00 Neuro seizures Neuro/Emot Resolve 2015-032016-03-18 Cherrise ion d 05-19 09:00:00 [place] 09:00: [id number] 00 Safety structural Safety Resolve 2015-032016-03-18 Cherrise barriers d 05-19 09:00:00 Ot[place] present 09:00: [id number] 00 Safety sanitation Safety Resolve 2015-032016-03-18 Cherrise hazards d 05-19 09:00:00 Ot[place] present 09:00: [id number] 00 Safety fall risk Safety Resolve 2015-032016-03-18 Cherrise factor d 05-19 09:00:00 Ot[place] present 09:00: [id number] 00 Respiratory oxygen Respirator Unknown Ashley treatments y 1-10 Vinnie in home 14:00: [id number] 00 Respiratory dyspnea Respirator Unknown Ashley present y 1-10 Vinnie 14:00: [id number] 00 Respiratory lung sounds Respirator Resolve 2016-04-07 Ashley deficit y d 1-10 10:40:00 Vinnie 14:00: [id number] 00 Elimination bowel Eliminatio Resolve 2016-07-28 Ashley incontinenc n d 1-10 10:09:00 Vinnie e 14:00: [id number] 00 Safety can be left Safety Resolve 2016-05-19 Ashley alone for d 1-10 09:45:00 Vinnie only short 14:00: [id number] periods 00 Respiratory CPAP Respirator Unknown Cherrise treatments y 1-16 Ot[place] in home 10:40: [id number] 00 Nutrition nutritional Nutrition Resolve 2016-05-19 Cherrise restriction d 1-16 09:45:00 Greg s 10:40: [id number] 00 Nutrition knowledge/s Nutrition Resolve 2016-05-19 Cherrise kill d - 09:45:00 Greg deficit: pt 10:40: [id number] 00 Nutrition knowledge/s Nutrition Resolve 2016-05-19 Cherrise kill d 1-16 09:45:00 [place] deficit: cg 10:40: [id number] 00 Safety structural Safety Resolve 2016-04-07 Cherrise barriers d 1-16 10:40:00 Ot[place] present 10:40: [id number] 00 Safety sanitation Safety Resolve 2016-04-07 Cherrise hazards d -16 10:40:00 Greg present 10:40: [id number] 00 Safety fall risk Safety Resolve 2016-04-07 Cherrise factor d - 11:15:00 Greg present 10:40: [id number] 00 Safety risk for Safety Resolve 2016-04-07 Cherrise hospitaliza d 16 11:15:00 Greg tion 10:40: [id number] 00 Bed transfer PT/OT: Bed Resolve 2016-04-07 Rubén Mobility/Tr deficit: Mobility/T d 16 11:15:00 Que mack toilet/comm ransfer 11:15: [id number] ode 00 Bed transfer PT/OT: Bed Resolve 2016-04-07 Rubén Mobility/Tr deficit: Mobility/T d 16 11:15:00 Que mack shower/tub ransfer 11:15: [id number] 00 Bed transfer PT/OT: Bed Resolve 2016-04-07 Rubén Mobility/Tr deficit: Mobility/T d 04-07 11:15:00 Que mack vehicle ransfer 11:15: [id number] 00 Bed bed PT/OT: Bed Resolve 2016-04-07 Rubén Mobility/Tr mobility Mobility/T d 16 11:15:00 Que ansfer deficit ransfer 11:15: [id number] 00 Gait/Locomo knowledge/s PT/OT: Resolve 2016-04-07 Rubén tion kill Gait/Locom d 16 11:15:00 Que problems deficit: pt otion 11:15: [id number] 00 Gait/Locomo gait PT/OT: Resolve 2016-04-07 Rubén tion deficit Gait/Locom d 04-07 11:15:00 Que problems otion 11:15: [id number] 00 Gait/Locomo gait PT/OT: Resolve 2016-04-15 Rubén tion assistive Gait/Locom d 04-07 13:45:00 Que problems device otion 11:15: [id number] present 00 Respiratory dyspnea Respirator Unknown Ashley present y 04-15 Vinnie 11:00: [id number] 00 Respiratory oxygen Respirator Unknown Ashley treatments y 04-15 Vinnie in home 11:00: [id number] 00 Integument skin Integument Resolve 2016-12-09 Ashley integrity d 04-15 12:18:00 Vinnie risk 11:00: [id number] 00 Elimination urinary Eliminatio Resolve 2016-05-19 Ashley incontinenc n d 04-15 09:45:00 Vinnie e 11:00: [id number] 00 Safety risk for Safety Resolve 2016-04-21 Rubén hospitaliza d 04-15 09:30:00 Que tion 13:45: [id number] 00 Gait/Locomo knowledge/s PT/OT: Resolve 2016-04-18 Rubén tion kill Gait/Locom d 04-15 16:00:00 Que problems deficit: pt otion 13:45: [id number] 00 Gait/Locomo gait PT/OT: Resolve 2016-04-15 Rubén tion deficit Gait/Locom d 04-15 13:45:00 Que problems otion 13:45: [id number] 00 Gait/Locomo gait PT/OT: Resolve 2016-04-18 Rubén tion assistive Gait/Locom d 04-18 16:00:00 Que problems device otion 16:00: [id number] present 00 Gait/Locomo gait PT/OT: Resolve 2016-04-18 Rubén tion deficit Gait/Locom d 04-18 16:00:00 Que problems otion 16:00: [id number] 00 Respiratory CPAP Respirator Unknown Cherrise treatments y 04-21 Otisco in home 09:30: [id number] 00 Elimination urinary Eliminatio Resolve 2016-05-19 Cherrise frequency n d 04-21 09:45:00 [place] 09:30: [id number] 00 Elimination recurring Eliminatio Resolve 2016-05-19 Cherrise UTI n d 04-21 09:45:00 [place] 09:30: [id number] 00 Elimination knowledge/s Eliminatio Resolve 2016-04-21 Cherrise kill n d 04-21 09:30:00 Greg deficit: pt 09:30: [id number] 00 Elimination knowledge/s Eliminatio Resolve 2016-04-21 Cherrise kill n d 04-21 09:30:00 Greg deficit: cg 09:30: [id number] 00 Safety sanitation Safety Resolve 2016-04-21 Cherrise hazards d 04-21 09:30:00 Greg present 09:30: [id number] 00 Safety fall risk Safety Resolve 2016-04-21 Cherrise factor d 04-21 09:30:00 Greg present 09:30: [id number] 00 Safety risk for Safety Resolve 2016-05-05 Rubén hospitaliza d 04-22 10:00:00 Que tion 13:45: [id number] 00 Gait/Locomo gait PT/OT: Resolve 2016-04-22 Rubén tion assistive Gait/Locom d 04-22 13:45:00 Que problems device otion 13:45: [id number] present 00 Gait/Locomo knowledge/s PT/OT: Resolve 2016-04-29 Rubén tion kill Gait/Locom d 04-22 16:00:00 Que problems deficit: pt otion 13:45: [id number] 00 Gait/Locomo gait PT/OT: Resolve 2016-04-22 Rubén tion deficit Gait/Locom d 04-22 13:45:00 Que problems otion 13:45: [id number] 00 Gait/Locomo gait PT/OT: Resolve 2016-04-29 Rubén tion assistive Gait/Locom d 04-25 16:00:00 Que problems device otion 16:00: [id number] present 00 Gait/Locomo gait PT/OT: Resolve 2016-04-29 Rubén tion deficit Gait/Locom d 2-03 16:00:00 Que problems otion 16:00: [id number] 00 Gait/Locomo gait PT/OT: Resolve 2016-05-02 Rubén tion assistive Gait/Locom d 2-10 16:40:00 Que problems device otion 16:40: [id number] present 00 Gait/Locomo gait PT/OT: Resolve 2016-05-02 Rubén tion deficit Gait/Locom d 2-10 16:40:00 Que problems otion 16:40: [id number] 00 Safety sanitation Safety Resolve 2016-06-16 Cherrise hazards d 2-13 10:31:00 Greg present 10:00: [id number] 00 Safety fall risk Safety Resolve 2016-05-05 Cherrise factor d 2-13 10:00:00 Greg present 10:00: [id number] 00 Safety risk for Safety Unknown Rubén hospitaliza 2- Que tion 17:00: [id number] 00 Gait/Locomo gait PT/OT: Resolve 2016-05-05 Rubén tion assistive Gait/Locom d 2-13 17:00:00 Que problems device otion 17:00: [id number] present 00 Gait/Locomo gait PT/OT: Resolve 2016-05-05 Rubén tion deficit Gait/Locom d 2-13 17:00:00 Que problems otion 17:00: [id number] 00 Respiratory nebulizer Respirator Resolve 2016-12-09 Ashley treatment y d 2- 12:18:00 Vinnie in home 10:00: [id number] 00 Safety risk for Safety Resolve 2016-05-19 Rubén hospitaliza d 2-21 09:45:00 Que tion 16:00: [id number] 00 Gait/Locomo gait PT/OT: Resolve 2016-05-13 Rubén tion assistive Gait/Locom d 2-21 16:00:00 Que problems device otion 16:00: [id number] present 00 Gait/Locomo gait PT/OT: Resolve 2016-05-13 Rubén tion deficit Gait/Locom d 2-21 16:00:00 Que problems otion 16:00: [id number] 00 Gait/Locomo gait PT/OT: Resolve 2016-05-15 Rubén tion assistive Gait/Locom d 05-15 13:00:00 Que problems device otion 13:00: [id number] present 00 Gait/Locomo gait PT/OT: Resolve 2016-05-15 Rubén tion deficit Gait/Locom d 05-15 13:00:00 Que problems otion 13:00: [id number] 00 Safety fall risk Safety Resolve 2016-05-19 Cherrise factor d 05-19 09:45:00 [place] present 09:45: [id number] 00 Gait/Locomo gait PT/OT: Resolve 2016-05-19 Rubén tion assistive Gait/Locom d 05-19 14:30:00 Que problems device otion 14:30: [id number] present 00 Gait/Locomo gait PT/OT: Resolve 2016-05-19 Rubén tion deficit Gait/Locom d 05-19 14:30:00 Que problems otion 14:30: [id number] 00 Test/Treatm tests Test/Injec Active Ashley ent ordered t/Sebastien 05-21 Vinnie [id number] Safety risk for Safety Resolve 2016-06-16 Nikkie hospitaliza d 05-21 10:31:00 Quinn tion 14:00: [id number] 00 Gait/Locomo gait PT/OT: Resolve 2016-05-29 Rubén tion assistive Gait/Locom d 05-22 13:30:00 Que problems device otion 12:35: [id number] present 00 Gait/Locomo gait PT/OT: Resolve 2016-05-29 Rubén tion deficit Gait/Locom d 05-22 13:30:00 Que problems otion 12:35: [id number] 00 Pain frequent Pain Mgmt Unknown Ashley pain 05-27 Vinnie 10:30: [id number] 00 Nutrition nutritional Nutrition Resolve 2016-07-14 Ashley restriction d 05-27 09:45:00 Vinnie williamson 10:30: [id number] 00 Elimination urinary Eliminatio Resolve 2016-12-09 Ashley incontinenc n d 05-27 12:18:00 Vinnie gaffney 10:30: [id number] 00 Elimination urinary Eliminatio Resolve 2016-12-09 Ashley frequency n d 05-27 12:18:00 Vinnie 10:30: [id number] 00 Endo/Nito glucose Endo/Nito Resolve 2016-12-09 Cherrise tolerance d 3-13 12:18:00 Greg problem 11:10: [id number] 00 Endo/Nito knowledge/s Endo/Nito Resolve 2016-12-09 Cherrise kill d 3- 12:18:00 [place] deficit: pt 11:10: [id number] 00 Elimination constipatio Eliminatio Resolve 2016-12-09 Cherrise n n d 3 12:18:00 Greg 11:10: [id number] 00 Safety fall risk Safety Resolve 2016-06-16 Cherrise factor d 3-13 10:31:00 Greg present 11:10: [id number] 00 Gait/Locomo gait PT/OT: Resolve 2016-06-05 Rubén tion assistive Gait/Locom d 3-13 13:30:00 Que problems device otion 14:45: [id number] present 00 Gait/Locomo gait PT/OT: Resolve 2016-06-05 Rubén tion deficit Gait/Locom d 3-13 13:30:00 Que problems otion 14:45: [id number] 00 Gait/Locomo gait PT/OT: Resolve 2016-06-12 Rubén tion assistive Gait/Locom d 3-20 15:30:00 Que problems device otion 15:30: [id number] present 00 Gait/Locomo gait PT/OT: Resolve 2016-06-12 Rubén tion deficit Gait/Locom d 3-20 15:30:00 Que problems otion 15:30: [id number] 00 Endo/Nito knowledge/s Endo/Nito Resolve 2016-12-09 Cherrise kill d 3 12:18:00 Greg deficit: cg 10:31: [id number] 00 Nutrition knowledge/s Nutrition Resolve 2016-07-14 Cherrise kill d 06-16 09:45:00 [place] deficit: pt 10:31: [id number] 00 Nutrition knowledge/s Nutrition Resolve 2016-07-14 Cherrise kill d 06-16 09:45:00 [place] deficit: cg 10:31: [id number] 00 Elimination urinary Eliminatio Resolve 2016-12-09 Cherrise urgency n d 06-16 12:18:00 [place] 10:31: [id number] 00 Elimination diarrhea Eliminatio Resolve 2016-12-09 Cherrise n d 06-16 12:18:00 Gerg 10:31: [id number] 00 Neuro depressive Neuro/Emot Resolve 2016-07-14 Cherrise feelings ion d 06-16 09:45:00 [place] present 10:31: [id number] 00 Safety can be left Safety Resolve 2016-06-16 Cherrise alone for d 06-16 10:31:00 Greg only short 10:31: [id number] periods 00 Musculoskel knowledge/s Musculoske Resolve 2016-07-14 Cherrise etal kill letal d 06-16 09:45:00 Greg deficit: cg 10:31: [id number] 00 Musculoskel knowledge/s Musculoske Resolve 2016-07-14 Cherrise etal kill letal d 06-16 09:45:00 [place] deficit: pt 10:31: [id number] 00 Safety risk for Safety Unknown Rubén hospitaliza 06-16 Que tion 14:30: [id number] 00 Gait/Locomo gait PT/OT: Resolve 2016-06-18 Rubén tion assistive Gait/Locom d 06-16 16:15:00 Que problems device otion 14:30: [id number] present 00 Gait/Locomo gait PT/OT: Resolve 2016-06-18 Rubén tion deficit Gait/Locom d 06-16 16:15:00 Que problems otion 14:30: [id number] 00 Safety can be left Safety Resolve 2016-11-10 Ashley adam for d 06-23 13:50:00 Vinnie larios nai 09:00: [id number] periods 00 Gait/Locomo gait PT/OT: Resolve 2016-07-28 Rubén tion assistive Gait/Locom d 06-23 16:40:00 Que problems device otion 16:50: [id number] present 00 Gait/Locomo gait PT/OT: Resolve 2016-07-28 Rubén tion deficit Gait/Locom d 06-23 16:40:00 Que problems otion 16:50: [id number] 00 Neuro impaired Neuro/Emot Resolve 2017-03-24 Cherrise decision-ma ion d 06-30 14:32:00 Otisco marcelle 09:45: [id number] 00 Neuro seizures Neuro/Emot Resolve 2016-08-11 Geni ion d 06-30 10:15:00 Greg 09:45: [id number] 00 Safety fall risk Safety Resolve 2016-07-14 Cherrise factor d 06-30 09:45:00 Ot[place] present 09:45: [id number] 00 Safety risk for Safety Resolve 2016-07-14 Dam[facility] hospitaliza d 06-30 09:45:00 Otisco tion 09:45: [id number] 00 Medication oral med Meds Unknown Estelita assistance 07-08 Ulisses required 09:05: [id number] 00 Medication injectable Meds Unknown Estelita med 07-08 Ulisses assistance 09:05: [id number] required 00 Safety risk for Safety Resolve 2016-08-11 Rubén hospitaliza d 07-15 10:15:00 Que tion 13:40: [id number] 00 Medication oral med Meds Unknown Estelita assistance 07-21 Ulisses required 08:48: [id number] 00 Medication injectable Meds Unknown Estelita med 07-21 Ulisses assistance 08:48: [id number] required 00 Musculoskel transfer Musculoske Resolve 2016-10-27 Estelita etal assistance letkatie d 07-21 09:55:00 Ulisses required 08:48: [id number] 00 Musculoskel knowledge/s Musculoske Resolve 2016-08-11 Estelita etal kill letal d 07-21 10:15:00 Ulisses deficit: pt 08:48: [id number] 00 Musculoskel knowledge/s Musculoske Resolve 2016-08-11 Estelita etal kill letal d 07-21 10:15:00 Ulisses deficit: cg 08:48: [id number] 00 Musculoskel requires Musculoske Resolve 2016-10-27 Estelita etal human letal d 07-21 09:55:00 Ulisses assist to 08:48: [id number] leave home 00 Activity ADL Activity Resolve 2016-09-15 Estelita assistance d 07-28 09:00:00 Ulisses required 10:09: [id number] 00 Safety fall risk Safety Resolve 2016-08-11 Estelita factor d 07-28 10:15:00 Ulisses present 10:09: [id number] 00 Gait/Locomo gait PT/OT: Resolve 2016-07-30 Rubén tion assistive Gait/Locom d -10 15:30:00 Que problems device otion 15:30: [id number] present 00 Gait/Locomo gait PT/OT: Resolve 2016-07-30 Rubén tion deficit Gait/Locom d -10 15:30:00 Que problems otion 15:30: [id number] 00 Elimination bowel Eliminatio Resolve 2016-12-09 Estelita incontinenc n d 08-04 12:18:00 Ulisses e 09:00: [id number] 00 Neuro depressive Neuro/Emot Resolve 2017-03-24 Cherrise feelings ion d 08-11 14:32:00 Greg present 10:15: [id number] 00 Safety cannot be Safety Resolve 2016-12-09 Ashley left alone d 08-13 12:18:00 Vinnie 09:00: [id number] 00 Safety fall risk Safety Resolve 2016-11-10 Ashley factor d 08-13 13:50:00 Vinnie present 09:00: [id number] 00 Safety risk for Safety Resolve 2016-11-10 Ashley meza d 08-13 13:50:00 Vinnie tion 09:00: [id number] 00 Endo/Nito diabetic Endo/Nito Resolve 2016-12-23 Estelita foot care d 08-19 13:35:00 Ulisses 16:15: [id number] 00 Elimination UTI within Eliminatio Resolve 2016-09-22 Estelita past 14 n d 08-19 12:30:00 Ulisses days 16:15: [id number] 00 Neuro confusion Neuro/Emot Resolve 2017-03-24 Estelita present ion d 08-19 14:32:00 Ulisses 16:15: [id number] 00 Neuro anxiety Neuro/Emot Resolve 2017-03-24 Estelita present ion d 08-19 14:32:00 Ulisses 16:15: [id number] 00 Medication oral med Meds Unknown Etselita assistance 08-19 Ulisses required 16:15: [id number] 00 Medication injectable Meds Unknown Estelita med 08-19 Ulisses assistance 16:15: [id number] required 00 Medication oral med Meds Unknown Maryse assistance 08-19 Regeczi required 16:15: [id number] 00 Musculoskel knowledge/s Musculoske Resolve 2016-09-15 Estelita etal kill letal d 08-19 09:00:00 Ulisses deficit: pt 16:15: [id number] 00 Respiratory lung sounds Respirator Resolve 2016-11-03 Estelita deficit y d 09-01 09:58:00 Ulisses 11:23: [id number] 00 Neuro seizures Neuro/Emot Resolve 2016-12-09 Estelita ion d 09-08 12:18:00 Ulisses 09:30: [id number] 00 Activity ADL Activity Unknown Estelita assistance 09-29 Ulisses required 10:30: [id number] 00 Cardio chest pain Cardiovasc Resolve 2016-12-09 Estelita ular d 10-14 12:18:00 Ulisses 09:30: [id number] 00 Safety can be left Safety Unknown Estelita alone for 11-10 Ulisses only short 13:50: [id number] periods 00 Safety risk for Safety [facility] Ulisses tion 10:25: [id number] 00 Safety can be left Safety Resolve 2016-12-09 Estelita alone for d 11-25 12:18:00 Ulisses only short 10:03: [id number] periods 00 Safety fall risk Safety Resolve 2016-12-09 Estelita factor d 11-25 12:18:00 Ulisses present 10:03: [id number] 00 Activity ADL Activity Resolve 2017-03-10 Estelita assistance d 12-12 14:00:00 Ulisses required 13:07: [id number] 00 Safety risk for Safety Resolve 2016-12-16 [facility] d 12-12 10:39:00 Ulisses tion 13:07: [id number] 00 Safety cannot be Safety Resolve 2017-01-27 Estelita left alone d 12-12 13:44:00 Ulisses 13:07: [id number] 00 Activity ADL Activity Unknown Estelita assistance 12-12 Ulisses required 13:43: [id number] 00 Safety risk for Safety [facility] 10:[facility] Ulisses tion 13:43: [id number] 00 Elimination urinary Eliminatio Resolve 2016-12-23 Estelita incontinenc n d 12-16 13:35:00 Ulisses e 10:39: [id number] 00 Elimination bowel Eliminatio Active Estelita incontinenc n 12-16 Ulisses e 10:39: [id number] 00 Elimination constipatio Eliminatio Active Estelita n n 12-16 Ulisses 10:39: [id number] 00 Elimination diarrhea Eliminatio Active Estelita n 9-26 Ulisses 10:39: [id number] 00 Elimination urinary Eliminatio Resolve 2016-032017-03-10 Estelita incontinenc n d 0-10 14:00:00 Ulisses e 13:16: [id number] 00 Safety risk for Safety Resolve 2016-032017-01-27 Estelita hospitaliza d 0-10 13:44:00 Ulisses tion 13:16: [id number] 00 Safety can be left Safety Resolve 2016-032017-01-27 Estelita alone for d 0-10 13:44:00 Ulisses only short 13:16: [id number] periods 00 Cardio chest pain Cardiovasc Active 2016-03 Divina ular 0-17 Schilling 17:00: [id number] 00 Cardio edema Cardiovasc Resolve 2016-032017-02-10 Divina ular d 0-17 12:43:00 Schilling 17:00: [id number] 00 Cardio hypertensio Cardiovasc Active 2016-03 Divina n ular 0-17 Schilling 17:00: [id number] 00 Respiratory dyspnea Respirator Resolve 2016-032017-02-10 Divina present y d 0-17 12:43:00 Schilling 17:00: [id number] 00 Respiratory oxygen Respirator Active 2016-03 Divina treatments y 0-17 Schilling in home 17:00: [id number] 00 Respiratory lung sounds Respirator Resolve 2016-032017-02-10 Divina deficit y d 0-17 12:43:00 Schilling 17:00: [id number] 00 Respiratory CPAP Respirator Resolve 2016-032018-02-16 Divina treatments y d 0-17 09:41:00 Schilling in home 17:00: [id number] 00 Respiratory nebulizer Respirator Resolve 2016-032018-02-16 Divina treatment y d 0-17 09:41:00 Schilling in home 17:00: [id number] 00 Respiratory knowledge/s Respirator Resolve 2016-032017-01-27 Divina kill y d 0-17 13:44:00 Schilling deficit: pt 17:00: [id number] 00 Safety fall risk Safety Resolve 2016-032017-01-27 Estelita factor d - 13:44:00 Ulisses present 13:44: [id number] 00 Safety risk for Safety Resolve 2016-032017-03-03 Estelita hospitaliza d 1-08 15:22:00 Ulisses tion 13:03: [id number] 00 Safety can be left Safety Resolve 2016-032017-03-03 Estelita alone for d 1-14 15:22:00 Ulisses only short 13:51: [id number] periods 00 Respiratory lung sounds Respirator Resolve 2016-032017-03-10 Estelita deficit y d 1-28 14:00:00 Ulisses 11:10: [id number] 00 Gait/Locomo gait PT/OT: Resolve 2016-032017-09-10 Rubén tion assistive Gait/Locom d 2-14 11:30:00 Que problems device otion 13:15: [id number] present 00 Safety risk for Safety Resolve 2016-032017-03-10 Rubén hospitaliza d 2-18 14:00:00 Que tion 14:15: [id number] 00 Gait/Locomo gait PT/OT: Resolve 2016-032017-09-10 Rubén tion deficit Gait/Locom d 2-18 11:30:00 Que problems otion 14:15: [id number] 00 Sensory impaired Sensory Resolve 2016-032017-03-24 Estelita hearing d 2- 14:32:00 Ulisses 14:00: [id number] 00 Safety can be left Safety Resolve 2016-032017-03-10 Estelita alone for d 2- 14:00:00 Ulisses only short 14:00: [id number] periods 00 Safety risk for Safety Resolve 2016-032017-03-18 Estelita hospitaliza d 2- 14:00:00 Ulisses tion 10:28: [id number] 00 Respiratory lung sounds Respirator Resolve 2016-032017-03-31 Estelita deficit y d - 16:04:00 Ulisses 14:00: [id number] 00 Elimination urinary Eliminatio Resolve 2016-032017-03-24 Estelita incontinenc n d 05-19 14:32:00 Ulisses e 14:00: [id number] 00 Safety can be left Safety Resolve 2016-032017-03-31 Estelita alone for d 2- 16:04:00 Ulisses only short 14:00: [id number] periods 00 Respiratory dyspnea Respirator Resolve 2017-11-24 Estelita present y d 03-24 14:00:00 Ulisses 14:32: [id number] 00 Nutrition knowledge/s Nutrition Resolve 2017-03-31 Estelita kill d 03-24 16:04:00 Ulisses deficit: pt 14:32: [id number] 00 Nutrition knowledge/s Nutrition Resolve 2017-03-31 Estelita kill d 03-24 16:04:00 Ulisses deficit: cg 14:32: [id number] 00 Activity ADL Activity Unknown Estelita assistance 03-24 Ulisses required 14:32: [id number] 00 Safety fall risk Safety Resolve 2017-03-24 Estelita factor d 03-24 14:32:00 Ulisses present 14:32: [id number] 00 Safety risk for Safety Resolve 2017-03-24 Estelita hospitaliza d 03-24 14:32:00 Ulisses tion 14:32: [id number] 00 Medication injectable Meds Unknown Estelita med 03-24 Ulisses assistance 14:32: [id number] required 00 Nutrition nutritional Nutrition Resolve 2017-03-31 Estelita restriction d 03-26 16:04:00 Ulisses s 12:16: [id number] 00 Safety risk for Safety Resolve 2017-03-31 Estelita hospitaliza d 03-26 16:04:00 Ulisses tion 12:16: [id number] 00 Bed transfer PT/OT: Bed Resolve 2017-09-10 Rubén Mobility/Tr deficit: Mobility/T d - 11:30:00 Que mack sit/stand ransfer 14:00: [id number] 00 Bed transfer PT/OT: Bed Resolve 2017-09-10 Rubén Mobility/Tr deficit: Mobility/T d 03-26 11:30:00 Que mack standing ransfer 14:00: [id number] pivot 00 Bed transfer PT/OT: Bed Resolve 2017-09-10 Rubén Mobility/Tr deficit: Mobility/T d - 11:30:00 Que mack toilet/comm ransfer 14:00: [id number] ode 00 Bed transfer PT/OT: Bed Resolve 2017-09-10 Rubén Mobility/Tr deficit: Mobility/T d 03-26 11:30:00 Que mcak shower/tub ransfer 14:00: [id number] 00 Bed transfer PT/OT: Bed Resolve 2017-09-10 Rubén Mobility/Tr deficit: Mobility/T d 03-26 11:30:00 Que mack vehicle ransfer 14:00: [id number] 00 Bed bed PT/OT: Bed Active Rubén Mobility/Tr mobility Mobility/T 03-26 Que mack deficit ransfer 14:00: [id number] 00 Endo/Nito anti-coagul Endo/Nito Resolve 2017-09-22 Estelita ation d 03-31 12:21:00 Ulisses therapy 16:04: [id number] 00 Endo/Nito diabetic Endo/Nito Resolve 2017-03-31 Estelita foot care d 03-31 16:04:00 Ulisses 16:04: [id number] 00 Elimination urinary Eliminatio Resolve 2017-03-31 Estelita incontinenc n d 03-31 16:04:00 Ulisses e 16:04: [id number] 00 Neuro confusion Neuro/Emot Resolve 2017-10-27 Estelita present ion d 03-31 10:31:00 Ulisses 16:04: [id number] 00 Medication oral med Meds Resolve 2017-04-06 Estelita assistance d 03-31 12:56:00 Ulisses required 16:04: [id number] 00 Medication injectable Meds Resolve 2017-04-06 Estelita med d 03-31 12:56:00 Ulisses assistance 16:04: [id number] 00 Respiratory lung sounds Respirator Resolve 2017-04-06 Estelita deficit y d 04-03 12:56:00 Ulisses 11:44: [id number] 00 Endo/Nito diabetic Endo/Nito Resolve 2017-04-06 Estelita foot care d 1-12 12:56:00 Ulisses 11:44: [id number] 00 Elimination urinary Eliminatio Resolve 2017-04-06 Estelita incontinenc n d - 12:56:00 Ulisses e 11:44: [id number] 00 Musculoskel requires Musculoske Resolve 2017-04-20 Estelita etal human letal d 04-06 09:23:00 Ulisses assist to 12:56: [id number] leave home 00 Musculoskel requires Musculoske Resolve 2017-04-20 Estelita etal special letal d 04-06 09:23:00 Ulisses transportat 12:56: [id number] ion 00 Respiratory lung sounds Respirator Resolve 2017-04-20 Estelita deficit y d 04-13 09:23:00 Ulisses 08:30: [id number] 00 Elimination urinary Eliminatio Resolve 2017-04-28 Estelita incontinenc n d 04-13 12:19:00 Ulisses e 08:30: [id number] 00 Safety risk for Safety Active Estelita hospitaliza 04-13 Ulisses tion 08:30: [id number] 00 Safety can be left Safety Resolve 2017-04-20 Estelita alone for d 04-13 09:23:00 Ulisses only short 08:30: [id number] periods 00 Respiratory lung sounds Respirator Resolve 2017-07-21 Estelita deficit y d 04-28 12:47:00 Ulisses 12:19: [id number] 00 Safety can be left Safety Resolve 2017-05-05 Estelita alone for d 04-28 11:50:00 Ulisses only short 12:19: [id number] periods 00 Respiratory pneumonia Respirator Resolve 2017-07-21 Estelita y d - 12:47:00 Ulisses 11:50: [id number] 00 Endo/Nito diabetic Endo/Nito Resolve 2017-10-27 Estelita foot care d - 10:31:00 Ulisses 11:50: [id number] 00 Elimination urinary Eliminatio Resolve 2017-07-14 Maryse incontinenc n d 2-13 12:22:00 Regeczi e 11:50: [id number] 00 Activity ADL Activity Resolve 2017-12-29 Maryse assistance d 2- 11:16:00 Regeczi required 11:50: [id number] 00 Safety fall risk Safety Resolve 2017-07-14 Estelita factor d 2- 12:22:00 Ulisses present 11:50: [id number] 00 Medication oral med Meds Resolve 2017-07-14 Estelita assistance d 2- 12:22:00 Ulisses required 11:50: [id number] 00 Medication injectable Meds Resolve 2017-07-14 Estelita med d 05-05 12:22:00 Ulisses assistance 11:50: [id number] required 00 Medication potential Meds Resolve 2017-07-14 Estelita clinically d 05-05 12:22:00 Ulisses significant 11:50: [id number] medication 00 issue Musculoskel transfer Musculoske Unknown Estelita etal assistance letal 05-05 Ulisses required 11:50: [id number] 00 Musculoskel requires Musculoske Unknown Estelita etal special letal 2- Ulisses transportat 11:50: [id number] ion 00 Endo/Nito glucose Endo/Nito Resolve 2017-10-27 Estelita tolerance d 2 10:31:00 Ulisses problem 10:40: [id number] 00 Endo/Nito knowledge/s Endo/Nito Resolve 2017-09-29 Estelita kill d 05-12 11:58:00 Ulisses deficit: cg 10:40: [id number] 00 Endo/Nito knowledge/s Endo/Nito Resolve 2017-09-29 Estelita kill d 05-12 11:58:00 Ulisses deficit 10:40: [id number] hypo/hyperg 00 lycemia: cg Safety can be left Safety Resolve 2017-07-21 Estelita alone for d 05-12 12:47:00 Ulisses only short 10:40: [id number] periods 00 Infection s/s of Infection Resolve 2017-12-01 Estelita infection d 2- 10:00:00 Ulisses 14:00: [id number] 00 Musculoskel requires Musculoske Resolve 2017-10-13 Estelita etal human letal d 05-26 10:51:00 Ulisses assist to 13:58: [id number] leave home 00 Musculoskel requires Musculoske Resolve 2017-10-13 Estelita etal special letal d 05-26 10:51:00 Ulisses transportat 13:58: [id number] ion 00 Safety cannot be Safety Resolve 2017-07-21 Estelita left alone d 07-07 12:47:00 Ulisses 12:05: [id number] 00 Safety knowledge/s Safety Resolve 2017-07-14 Estleita kill d 07-14 12:22:00 Ulisses deficit: pt 12:22: [id number] 00 Elimination urinary Eliminatio Resolve 2017-07-21 Estelita incontinenc n d 07-21 12:47:00 Ulisses e 12:47: [id number] 00 Neuro impaired Neuro/Emot Resolve 2017-10-27 Estelita decision-ma ion d 07-21 10:31:00 Ulisses marcelle 12:47: [id number] 00 Activity ADL Activity Unknown Estelita assistance 07-21 Ulisses required 12:47: [id number] 00 Safety fall risk Safety Resolve 2017-12-01 Estelita factor d 07-21 10:00:00 Ulisses present 12:47: [id number] 00 Medication injectable Meds Resolve 2017-08-24 Estelita med d 07-21 12:12:00 Ulisses assistance 12:47: [id number] required 00 Respiratory lung sounds Respirator Resolve 2017-07-28 Estelita deficit y d 07-24 12:01:00 Ulisses 12:50: [id number] 00 Elimination urinary Eliminatio Resolve 2017-09-22 Estelita incontinenc n d 07-24 12:21:00 Ulisses e 12:50: [id number] 00 Safety can be left Safety Resolve 2017-12-29 Estelita alone for d 07-24 11:16:00 Ulisses only short 12:50: [id number] periods 00 Safety cannot be Safety Resolve 2017-12-29 Estelita left alone d 07-28 11:16:00 Ulisses 12:01: [id number] 00 Safety knowledge/s Safety Resolve 2017-12-01 Estelita kill d 07-28 10:00:00 Ulisses deficit: pt 12:01: [id number] 00 Respiratory lung sounds Respirator Resolve 2017-10-27 Estelita deficit y d 07-30 10:31:00 Ulisses 10:57: [id number] 00 Elimination recurring Eliminatio Resolve 2017-09-07 Estelita UTI n d 09-01 09:49:00 Ulisses 10:54: [id number] 00 Musculoskel transfer Musculoske Resolve 2017-10-13 Estelita etal assistance letal d 09-07 10:51:00 Ulisses required 09:49: [id number] 00 Elimination recurring Eliminatio Resolve 2017-09-22 Estelita UTI n d 09-22 12:21:00 Ulisses 12:21: [id number] 00 Neuro depressive Neuro/Emot Resolve 2017-12-29 Estelita feelings ion d 09-22 11:16:00 Ulisses present 12:21: [id number] 00 Medication injectable Meds Resolve 2017-09-29 Estelita med d 09-22 11:58:00 Ulisses assistance 12:21: [id number] required 00 Endo/Nito anti-coagul Endo/Nito Resolve 2017-10-27 Estelita ation d 10-06 10:31:00 Ulisses therapy 11:32: [id number] 00 Safety knowledge/s Safety Resolve 2017-12-01 Estelita kill d 10-06 10:00:00 Ulisses deficit: cg 11:32: [id number] 00 Musculoskel transfer Musculoske Unknown Estelita etal assistance letal 10-20 Ulisses required 12:01: [id number] 00 Musculoskel requires Musculoske Resolve 2017-12-01 Estelita etal human letal d 10-20 10:00:00 Ulisses assist to 12:01: [id number] leave home 00 Neuro anxiety Neuro/Emot Resolve 2017-12-29 Estelita present ion d 10-27 11:16:00 Ulisses 10:31: [id number] 00 Medication oral med Meds Resolve 2017-11-11 Estelita assistance d 10-27 10:50:00 Ulisses required 10:31: [id number] 00 Medication injectable Meds Resolve 2017-11-11 Estelita med d 10-27 10:50:00 Ulisses assistance 10:31: [id number] required 00 Bed transfer PT/OT: Bed Active Rubén Mobility/Tr deficit: Mobility/T 8-10 Que ansfer sit/stand ransfer 10:30: [id number] 00 Bed transfer PT/OT: Bed Active Rubén Mobility/Tr deficit: Mobility/T 8-10 Que ansfer toilet/comm ransfer 10:30: [id number] ode 00 Bed transfer PT/OT: Bed Active Rubén Mobility/Tr deficit: Mobility/T 8-10 Que ansfer shower/tub ransfer 10:30: [id number] 00 Bed transfer PT/OT: Bed Active Rubén Mobility/Tr deficit: Mobility/T 8-10 Que ansfer vehicle ransfer 10:30: [id number] 00 Gait/Locomo gait PT/OT: Active Rubén tion deficit Gait/Locom 8-10 Que problems otion 10:30: [id number] 00 Gait/Locomo gait PT/OT: Active Rubén tion assistive Gait/Locom 8-10 Que problems device otion 10:30: [id number] present 00 Gait/Locomo knowledge/s PT/OT: Active Rubén tion kill Gait/Locom 8-10 Que problems deficit: pt otion 10:30: [id number] 00 Respiratory lung sounds Respirator Resolve 2017-11-18 Estelita deficit y d 11-03 15:52:00 Ulisses 10:41: [id number] 00 Endo/Nito anti-coagul Endo/Nito Resolve 2018-08-03 Estelita ation d 11-03 12:10:00 Ulisses therapy 10:41: [id number] 00 Elimination urinary Eliminatio Resolve 2017-11-18 Estelita incontinenc n d 11-17 15:52:00 Ulisses e 08:59: [id number] 00 Nutrition knowledge/s Nutrition Active Estelita kill 11-18 Ulisses deficit: pt 15:52: [id number] 00 Nutrition knowledge/s Nutrition Active Estelita kill 11-18 Ulisses deficit: cg 15:52: [id number] 00 Nutrition nutritional Nutrition Resolve 2017-11-18 Estelita restriction d 11-18 15:52:00 Ulisses s 15:52: [id number] 00 Neuro impaired Neuro/Emot Resolve 2017-12-29 Estelita decision-ma ion d 11-18 11:16:00 Ulisses marcelle 15:52: [id number] 00 Medication injectable Meds Resolve 2017-11-24 Estelita med d 11-18 14:00:00 Ulisses assistance 15:52: [id number] required 00 Musculoskel transfer Musculoske Resolve 2017-12-01 Estelita etal assistance letal d 11-18 10:00:00 Ulisses required 15:52: [id number] 00 Nutrition nutritional Nutrition Resolve 2017-11-24 Rubén restriction d 11-23 14:00:00 Que s 12:20: [id number] 00 Respiratory lung sounds Respirator Resolve 2017-12-08 Estelita deficit y d 11-24 10:45:00 Ulisses 14:00: [id number] 00 Elimination urinary Eliminatio Resolve 2017-12-29 Estelita incontinenc n d 11-24 11:16:00 Ulisses e 14:00: [id number] 00 Respiratory dyspnea Respirator Resolve 2017-12-15 Estelita present y d 11-27 11:24:00 Ulisses 17:09: [id number] 00 Musculoskel requires Musculoske Resolve 2018-11-10 Estelita etal human letal d 12-08 09:15:00 Ulisses assist to 10:45: [id number] leave home 00 Bed transfer PT/OT: Bed Active Rubén Mobility/Tr deficit: Mobility/T 12-14 Que mack standing ransfer 13:15: [id number] pivot 00 Respiratory lung sounds Respirator Resolve 2018-02-16 Estelita deficit y d 12-15 09:41:00 Ulisses 11:24: [id number] 00 Respiratory dyspnea Respirator Active 2017-03 Estelita present y Ulisses 09:53: [id number] 00 Elimination urinary Eliminatio Resolve 2017-032018-02-16 Estelita incontinenc n d 0-10 09:41:00 Ulisses e 13:18: [id number] 00 Activity ADL Activity Unknown 2017-03 Estelita assistance 0-10 Ulisses required 13:18: [id number] 00 Safety cannot be Safety Resolve 2017-032018-08-03 Estelita left alone d 0-10 12:10:00 Ulisses 13:18: [id number] 00 Neuro anxiety Neuro/Emot Resolve 2017-032018-12-08 Estelita present ion d 0-16 10:56:00 Ulisses 10:49: [id number] 00 Neuro impaired Neuro/Emot Resolve 2017-032018-12-08 Estelita decision-ma ion d 0-16 10:56:00 Ulisses marcelle 10:49: [id number] 00 Nutrition nutritional Nutrition Resolve 2017-032018-02-16 Estelita restriction d 0-30 09:41:00 Ulisses s 10:43: [id number] 00 Safety fall risk Safety Resolve 2017-032018-08-03 Estelita factor d 0-30 12:10:00 Ulisses present 10:43: [id number] 00 Medication injectable Meds Resolve 2017-032018-02-09 Estelita med d 0-30 14:18:00 Ulisses assistance 10:43: [id number] required 00 Respiratory BiPAP Respirator Active 2017-03 Estelita treatments y 04-11 Ulisses in home 14:18: [id number] 00 Medication oral med Meds Resolve 2017-032018-02-09 Estelita assistance d 04-11 14:18:00 Ulisses required 14:18: [id number] 00 IV k/s IV Active 2017-03 Estelita deficit: IV 04-11 Ulisses care - pt 14:18: [id number] 00 Endo/Nito glucose Endo/Nito Active 2017-03 Estelita tolerance 04-18 Ulisses problem 09:41: [id number] 00 Endo/Nito knowledge/s Endo/Nito Active 2017-03 Estelita kill 04-18 Ulisses deficit 09:41: [id number] hypo/hyperg 00 lycemia: cg Respiratory lung sounds Respirator Active 2017-03 Estleita deficit y 04-26 Ulisses 09:51: [id number] 00 Sensory impaired Sensory Resolve 2017-032018-12-08 Estelita verbal d 04-26 10:56:00 Ulisses communicati 09:51: [id number] on 00 Nutrition nutritional Nutrition Resolve 2017-032018-06-22 Estelita restriction d 04-26 11:30:00 Ulisses s 09:51: [id number] 00 Elimination urinary Eliminatio Resolve 2017-032018-06-22 Estelita incontinenc n d 04-26 11:30:00 Ulisses e 09:51: [id number] 00 Endo/Nito diabetic Endo/Nito Active 2017-03 Estelita foot care 05-16 Ulisses 17:47: [id number] 00 Sensory impaired Sensory Resolve 2017-032018-12-08 Estelita hearing d 05-16 10:56:00 Ulisses 17:47: [id number] 00 Integument surgical Integument Resolve 2017-032018-03-22 Estelita wound d 05-16 11:40:00 Ulisses present 17:47: [id number] 00 Integument skin Integument Active 2017-03 Estelita integrity 05-16 Ulisses risk 17:47: [id number] 00 Neuro confusion Neuro/Emot Resolve 2017-032018-12-08 Estelita present ion d 05-16 10:56:00 Ulisses 17:47: [id number] 00 Medication oral med Meds Resolve 2017-032018-06-22 Estelita assistance d 05-16 11:30:00 Ulisses required 17:47: [id number] 00 Medication injectable Meds Resolve 2017-032018-06-22 Estelita med d 05-16 11:30:00 Ulisses assistance 17:47: [id number] required 00 Medication potential Meds Resolve 2017-032018-06-22 Estelita clinically d 05-16 11:30:00 Ulisses significant 17:47: [id number] medication 00 issue Musculoskel knowledge/s Musculoske Resolve 2017-032018-11-10 Estelita etal kill letal d 05-16 09:15:00 Ulisses deficit: pt 17:47: [id number] 00 Activity ADL Activity Resolve 2018-07-27 Estelita assistance d -16 09:15:00 Ulisses required 11:15: [id number] 00 Activity patient Activity Resolve 2018-11-10 Estelita bedbound d -16 09:15:00 Ulisses 11:15: [id number] 00 Musculoskel transfer Musculoske Resolve 2018-11-10 Estelita etal assistance letal d 16 09:15:00 Ulisses required 11:15: [id number] 00 Safety can be left Safety Resolve 2018-08-03 Estelita alone for d 04-14 12:10:00 Uilsses only short 11:45: [id number] periods 00 Infection s/s of Infection Active Estelita infection 05-14 Ulisses 10:00: [id number] 00 Activity self-care Activity Resolve 2018-07-27 Estelita deficit d 05-17 09:15:00 Ulsises 10:45: [id number] 00 Neuro behavior Neuro/Emot Resolve 2018-12-08 Estelita problems ion d - 10:56:00 Ulisses 09:46: [id number] 00 Neuro constant Neuro/Emot Resolve 2018-12-08 Estelita confusion ion d 3-04 10:56:00 Ulisses 09:46: [id number] 00 Medication inhalant Meds Resolve 2018-06-22 Estelita med d 3-12 11:30:00 Ulisses assistance 14:00: [id number] required 00 Respiratory CPAP Respirator Active Estelita treatments y - Ulisses in home 11:30: [id number] 00 Nutrition nutritional Nutrition Resolve 2018-07-27 Estelita restriction d 06-29 09:15:00 Ulisses s 10:00: [id number] 00 Respiratory nebulizer Respirator Active Estelita treatment y 07-06 Ulisses in home 11:53: [id number] 00 Elimination urinary Eliminatio Resolve 2018-07-27 Estelita incontinenc n d 07-06 09:15:00 Ulisses e 11:53: [id number] 00 Musculoskel requires Musculoske Resolve 2018-11-10 Estelita etal special letal d 07-06 09:15:00 Ulisses transportat 11:53: [id number] ion 00 Medication oral med Meds Resolve 2018-08-10 Estelita assistance d 07-13 09:21:00 Ulisses required 12:15: [id number] 00 Medication inhalant Meds Resolve 2018-08-10 Estelita med d 07-13 09:21:00 Ulisses assistance 12:15: [id number] required 00 Medication injectable Meds Resolve 2018-10-21 Estelita med d 07-13 09:54:00 Ulisses assistance 12:15: [id number] required 00 Medication potential Meds Active Estelita clinically 07-13 Ulisses significant 12:15: [id number] medication 00 issue Nutrition nutritional Nutrition Resolve 2018-12-08 Estelita restriction d 5-10 10:56:00 Ulisses s 13:30: [id number] 00 Elimination recurring Eliminatio Resolve 2018-12-08 Estelita UTI n d 5-14 10:56:00 Ulisses 12:10: [id number] 00 Endo/Nito anti-coagul Endo/Nito Active Estelita ation 08-10 Ulisses therapy 09:21: [id number] 00 Elimination urinary Eliminatio Resolve 2018-12-08 Estelita incontinenc n d 08-10 10:56:00 Ulisses e 09:21: [id number] 00 Safety cannot be Safety Resolve 2019-01-27 Estelita left alone d 08-10 11:00:00 Ulisses 09:21: [id number] 00 Safety can be left Safety Resolve 2019-01-27 Estelita alone for d 08-31 11:00:00 Ulisses only short 10:00: [id number] periods 00 Activity ADL Activity Resolve 2018-11-24 Estelita assistance d 09-14 10:15:00 Ulisses required 09:30: [id number] 00 Activity self-care Activity Resolve 2018-11-10 Estelita deficit d 09-14 09:15:00 Ulisses 09:30: [id number] 00 Safety fall risk Safety Resolve 2019-01-27 Estelita factor d 09-14 11:00:00 Ulisses present 09:30: [id number] 00 Medication injectable Meds Unknown Estelita med 09-14 Ulisses assistance 09:30: [id number] required 00 Medication injectable Meds Unknown Estelita med 09-29 Ulisses assistance 13:11: [id number] required 00 Medication injectable Meds Resolve 2018-10-21 Estelita med d 10-13 09:54:00 Ulisses assistance 12:30: [id number] required 00 Activity self-care Activity Resolve 2019-01-27 Estelita deficit d 11-17 11:00:00 Ulisses 09:49: [id number] 00 Medication injectable Meds Active Estelita med 11-17 Ulisses assistance 09:49: [id number] required 00 Musculoskel transfer Musculoske Resolve 2019-01-27 Estelita etal assistance letal d 11-17 11:00:00 Ulisses required 09:49: [id number] 00 Musculoskel knowledge/s Musculoske Resolve 2018-2019-01-27 Estelita etal kill letal d 11-17 11:00:00 Ulisses deficit: pt 09:49: [id number] 00 Musculoskel requires Musculoske Resolve 2019-01-27 Estelita etal human letal d 11-17 11:00:00 Ulisses assist to 09:49: [id number] leave home 00 Musculoskel requires Musculoske Resolve 2019-01-27 Estelita etal special letal d 11-17 11:00:00 Ulisses transportat 09:49: [id number] ion 00 Activity patient Activity Active Estelita bedbound 11-24 Ulisses 10:15: [id number] 00 Nutrition nutritional Nutrition Resolve 2019-02-01 Estelita restriction d 12-14 11:05:00 Ulisses s 12:38: [id number] 00 Elimination urinary Eliminatio Resolve 2018-032019-02-01 Estelita incontinenc n d 0-02 11:05:00 Ulisses e 10:19: [id number] 00 Sensory impaired Sensory Active 2018-03 Estelita hearing 0-09 Ulisses 10:49: [id number] 00 Pain frequent Pain Mgmt Resolve 2018-032019-02-01 Estelita pain d 0-20 11:05:00 Ulisses 12:23: [id number] 00 Integument surgical Integument Active 2018-03 Estelita wound 0-20 Ulisses present 12:23: [id number] 00 Elimination UTI within Eliminatio Resolve 2018-032019-02-01 Estelita past 14 n d 0-20 11:05:00 Ulisses days 12:23: [id number] 00 Neuro confusion Neuro/Emot Active 2018-03 Esteltia present ion 0-20 Ulisses 12:23: [id number] 00 Neuro anxiety Neuro/Emot Active 2018-03 Estelita present ion 0-20 Ulisses 12:23: [id number] 00 Neuro impaired Neuro/Emot Active 2018-03 Estelita decision-ma ion 0-20 Ulisses marcelle 12:23: [id number] 00 Activity ADL Activity Resolve 2018-032019-01-27 Estelita assistance d 0-20 11:00:00 Ulisses required 12:23: [id number] 00 Medication oral med Meds Active 2018-03 Estelita assistance 0 Ulisses required 12:23: [id number] 00 Endo/Nito insulin Endo/Nito Active 2018-03 Estelita admn Ulisses dependence 10:16: [id number] 00 Endo/Nito glucose Endo/Nito Active 2018-03 Estelita testing Ulisses dependence 10:16: [id number] 00 Sensory impaired Sensory Active 2018-03 Estelita verbal 04-03 Ulisses communicati 11:05: [id number] on 00 Safety can be left Safety Active 2018-03 Estelita alone for 04-03 Ulisses only short 11:05: [id number] periods 00 Musculoskel transfer Musculoske Active 2018-03 Estelita etal assistance letal 04-03 Ulisses required 11:05: [id number] 00 Musculoskel requires Musculoske Active 2018-03 Estelita etal human letal 04-03 Ulisses assist to 11:05: [id number] leave home 00 Musculoskel requires Musculoske Active 2018-03 Estelita etal special letal 04-03 Ulisses transportat 11:05: [id number] ion 00 Allergies, Adverse Reactions, Alerts Allergy Allergy Status Severity Reaction(s) Onset Inactive Treating Comments Name Type Date Date Clinician Iodine and Allergen Active Unknown altered mental [facility] Iodide Group statusseizure 07-23 Guidelli Containing [id number] Products Levaquin Medication Active Unknown itching Cherelle Name ID - Guidelli [id number] nitroglycer Base Active Unknown Anaphylaxis Cherelle in Ingredient - Guidelli [id number] Medications Ordered Filled Start Stop Current Ordering Indication Dosage Frequency Signature Comments Components Medication Medication Date Date Medication? Clinician (SIG) Name Name acetaminoph acetaminoph 2016- No Bindu 1 tab Unknown en 325 mg en 325 mg 09-04 Jeremiah PASTOR tablet tablet albuterol albuterol 2018- No [place] 1 Kika Unknown sulfate 2.5 sulfate 2.5 06-12 Jeremiah PASTOR mg/3 mL mg/3 mL (0.083 %) (0.083 %) solution solution for for nebulizatio nebulizatio n n aspirin 81 aspirin 81 No Bindu 1 tab Unknown mg mg 10-06 ,Jeremiah tablet,skyler tablet,skyler yed release yed release atorvastati atorvastati 2017- No [place] 0.5.tab Unknown n 20 mg n 20 mg 09-30 Jeremiah PASTOR tablet tablet benzonatate benzonatate 2016- No [place] 2 Cap Unknown 100 mg 100 mg 09-04 Jeremiah PASTOR capsule capsule budesonide budesonide 2017- No [facility] 2 ML Unknown 0.5 mg/2 mL 0.5 mg/2 mL 09-04 Jeremiah PASTOR suspension suspension for for nebulizatio nebulizatio n n cholecalcif cholecalcif 2017- No [place] 2 tab Unknown rob rob 09-04 Jeremiah PASTOR (vitamin (vitamin D3) 1,000 D3) 1,000 unit (25 unit (25 mcg) tablet mcg) tablet carboxymeth carboxymeth 2017- No [facility] 2 drops Unknown ylcellulose ylcellulose 09-04 Jeremiah PASTOR sodium 1 % sodium 1 % eye liquid eye liquid gel drops gel drops clobetasol- clobetasol- 2017- No [place] 1 cream Unknown emollient emollient 09-04 Jeremiah PASTOR 0.05 % 0.05 % topical topical cream cream bisacodyl bisacodyl 2016- No [facility]ind[place] 1 Unknown 10 mg 10 mg 09-04 Jeremiah PASTOR Supposi rectal rectal tory suppository suppository Dilantin Dilantin 2015- No [facility]ind[facility] 2 Cap Unknown Kapseal 100 Kapseal 100 08-09 Jeremiah PASTOR mg capsule mg capsule finasteride finasteride 2017- No [facility] 1 tab Unknown 5 mg tablet 5 mg tablet 09-04 Jeremiah PASTOR furosemide furosemide 2015- No [facility]ind[place] 1 Tab Unknown 40 mg 40 mg 12-16 MDJeremiah tablet tablet guaiFENesin guaiFENesin No [place]ind[place] 5 ML Unknown 100 mg/5 mL 100 mg/5 mL 09-04 ,Jeremiah oral liquid oral liquid Lantus Lantus 2014-03- No [place] 35 Kika Unknown U-100 U-100 04-07 Jeremiah PASTOR Insulin 100 Insulin 100 unit/mL unit/mL subcutaneou subcutaneou s solution s solution lidocaine 5 lidocaine 5 2016- No [facility] 1 cream Unknown % topical % topical 09-04 ,Jeremiah cream cream lisinopril lisinopril 2015- No [facility] 0.5 Tab Unknown 10 mg 10 mg 12-16 ,Jeremiah tablet tablet metFORMIN metFORMIN 2018- No [facility] 1 tab Unknown 500 mg 500 mg 06-12 ,Jeremiah tablet tablet nystatin nystatin 2017- No [place] 1 cream Unknown 100,000 100,000 09-04 Jeremiah PASTOR unit/gram unit/gram topical topical cream cream oxyCODONE-a oxyCODONE-a 2014-03- No [facility] 1 tab Unknown cetaminophe cetaminophe 03-31 ,Jeremiah n 5 mg-325 n 5 mg-325 mg tablet mg tablet Oxygen 2L/M Oxygen 2L/M 2015- No [facility] 2 L Unknown 12-04 0610 ,Jeremiah /min senna 8.6 senna 8.6 2015- No [place] 2 tab Unknown mg tablet mg tablet 08-15 Jeremiah PASTOR sertraline sertraline 2015- No [place] 0.5 Tab Unknown 100 mg 100 mg 03-26 ,Jeremiah tablet tablet spironolact spironolact No [place]ind[place] 1 tab Unknown one 50 mg one 50 mg 09-04 MD,Jeremiah tablet tablet traZODone traZODone 2017- No [place] 1.5 tab Unknown 50 mg 50 mg 08-09 ,Jeremiah tablet tablet warfarin 1 warfarin 1 2015- No [place] 4-7 Unknown mg tablet mg tablet 06-03 ,Jeremiah warfarin 1 warfarin 1 2015- No [place] 4-7 Unknown mg tablet mg tablet 06-03 ,Jeremiah warfarin 1 warfarin 1 2015- No [place] 7 Unknown mg tablet mg tablet 06-12 ,Jeremiah Calin Dilantin 2015- No [place] 3Cap Unknown Kapseal 100 Kapseal 100 06-12 ,Jeremiah mg capsule mg capsule warfarin warfarin 2015- No [place] 8-7mg Unknown 06-17 ,Jeremiah warfarin warfarin 2015- No [place] 8-7mg Unknown 06-24 ,Jeremiah sulfamethox sulfamethox No [place] 400 Unknown azole azole 06-24 ,Jeremiah warfarin warfarin 2015- No [place] 8-7mg Unknown 07-01 ,Jeremiah warfarin warfarin 2017- No [place] 8-7mg Unknown 07-02 ,Jeremiah Bactrim DS Bactrim DS No [place] 1 Unknown 800 mg-160 800 mg-160 07-05 Jeremiah PASTOR mg tablet mg tablet sertraline sertraline No [place] 1 Tab Unknown 100 mg 100 mg 07-08 Jeremiah PASTOR tablet tablet warfarin 1 warfarin 1 2017- No [place] 7-8mg Unknown mg tablet mg tablet 07-08 ,Jeremiah Macrobid Macrobid 2015- No [facility]indu 100mg Unknown 100 mg 100 mg 07-08 Jeremiah PASTOR capsule capsule warfarin 1 warfarin 1 2015- No [place] 7-8 Unknown mg tablet mg tablet 07-11 ,Jeremiah Lantus Lantus 2015- No [facility] 32 Kika Unknown U-100 U-100 07-12 ,Jeremiah Insulin 100 Insulin 100 unit/mL unit/mL subcutaneou subcutaneou s solution s solution Diltobias Dilantin 2015- No [place]ind[place] 100 Unknown Kapseal 100 Kapseal 100 07-12 Jeremiah PASTOR mg-1 mg capsule mg capsule CAPSULE warfarin 1 warfarin 1 2015- No [facility] 7 mg Unknown mg tablet mg tablet 07-12 Jeremiah PASTOR senna 8.6 senna 8.6 [place] 2 tab Unknown mg tablet mg tablet 07-15 Jeremiah PASTOR Vitamin D Vitamin D Bind[place] 1 Unknown 2,000 unit 2,000 unit 07-22 Jeremiah PASTOR tablet tablet warfarin 1 warfarin 1 [place] 6 Unknown mg tablet mg tablet 07-23 Jeremiah PASTOR Bactrim 400 Bactrim 400 [place] 1 Unknown mg-80 mg mg-80 mg 07-23 Jeremiah PASTOR tablet tablet dilTIAZem dilTIAZem [place] 1 Unknown 120 mg 120 mg 07-23 Jeremiah PASTOR tablet tablet warfarin 1 warfarin 1 [place]ind[place] 7 mg Unknown mg tablet mg tablet 07-26 Jeremiah PASTOR warfarin 1 warfarin 1 [place] 1mg tab Unknown mg tablet mg tablet 07-29 Jeremiah PASTOR coumidin coumidin [place] 1mg Unknown 08-05 Jeremiah PASTOR Lovenox 80 Lovenox 80 [place] 80mg Unknown mg/0.8 mL mg/0.8 mL 07-20 Jeremiah PASTOR subcutaneou subcutaneou s syringe s syringe Dilantin Dilantin [place] 2tabs Unknown Kapseal 100 Kapseal 100 08-09 Jeremiah PASTOR mg capsule mg capsule warfarin 1 warfarin 1 [facility] 1mg Unknown mg tablet mg tablet 08-13 Jeremiah PASTOR warfarin 1 warfarin 1 [facility] 1mg Unknown mg tablet mg tablet 08-12 Jeremiah PASTOR Oxygen 2L/M Oxygen 2L/M [place] 4 L Unknown 08-30 Jeremiah PASTOR /min warfarin 1 warfarin 1 [facility] 1mg Unknown mg tablet mg tablet 09-17 Jeremiah PASTOR warfarin 1 warfarin 1 [facility] 1mg Unknown mg tablet mg tablet 09-24 Jeremiah PASTOR warfarin 1 warfarin 1 2016-0 2016- No [facility] 1mg Unknown mg tablet mg tablet 09-30 Jeremiah PASTOR warfarin 1 warfarin 1 2015- No [place] 1mg Unknown mg tablet mg tablet 09-24 Jeremiah PASTOR Coumadin 2 Coumadin 2 2015- No [place] 5-6mg Unknown mg tablet mg tablet 09-30 Jeremiah PASTOR warfarin 1 warfarin 1 2015- No [place] 5mg Unknown mg tablet mg tablet 10-14 Jeremiah PASTOR Thursday, 6mg Thursday, 6mg Thursday , 6mg ay, 5mg y, 6mg Thursday, 6mg y. albuterol albuterol No [facility] 2 puffs Unknown sulfate HFA sulfate HFA 07-17 Jeremiah PASTOR 90 90 mcg/actuati mcg/actuati on aerosol on aerosol inhaler inhaler warfarin 1 warfarin 1 2015- No [facility] per inr Unknown mg tablet mg tablet 11-04 Jeremiah PASTOR 1.3 on 11/04 take 7mg 11/04, 6mg thursday , 6mg thu then recheck warfarin 1 warfarin 1 2015- No [place] per inr Unknown mg tablet mg tablet 11-07 Jeremiah PASTOR 1.3 on 11/07 take 6mg 11/07, 6mg 11/08, 6mg11/09 take 6mg 11/10, then recheck Saturday 11/11 warfarin 1 warfarin 1 2015- No [facility] per INR Unknown mg tablet mg tablet 11-11 Jeremiah PASTOR 2.0 on 11/11, take 6mg 11/11, 11/12, 11/13, 11/14, 11/15, 11/16, 11/17, Recheck INR 11/18. warfarin 1 warfarin 1 2015- No [place] perinr Unknown mg tablet mg tablet 11-18 Jeremiah PASTOR on 11/18 take 6 mg daily recheck 2 weeks on 12/02 Oxygen 2L/M Oxygen 2L/M 2015- No [place] 4 L Unknown 11-22 Jeremiah PASTOR /min warfarin 1 warfarin 1 2015- No [place] perinr Unknown mg tablet mg tablet 11-22 Jeremiah PASTOR on 11/18 take 6 mg daily recheck 2 weeks on 12/02 warfarin 1 warfarin 1 2015- No [facility] perinr Unknown mg tablet mg tablet 11-26 Jeremiah PASTOR on 11/18 take 6 mg daily recheck 2 weeks on 12/02 senna 8.6 senna 8.6 2016- No [facility] 2 tab Unknown mg tablet mg tablet 11-27 Jeremiah PASTOR warfarin 1 warfarin 1 2015- No [facility] per inr Unknown mg tablet mg tablet 12-02 Jeremiah PASTOR on 11/1215 take 8mg thursday and with 6mg daily. recheck next inr on 12/09 amoxicillin amoxicillin 2015- No [place] 1 tab Unknown 500 500 12-04 Jeremiah PASTOR mg-potassiu mg-potassiu m m clavulanate clavulanate 125 mg 125 mg tablet tablet oxygen oxygen 2015- No [place] 3 Unknown 11-25 Jeremiah PASTOR liters in the home and 4 liters while out of the home warfarin 1 warfarin 1 2015- No [place] per inr Unknown mg tablet mg tablet 12-09 Jeremiah PASTOR on 12/09 take mon 6mg , tu, 4mg, thu 6mg, 6mg, thu 6mg, sat and sun 6mg, recheck on 12/16 warfarin 1 warfarin 1 2015- No [place] 6mg Unknown mg tablet mg tablet 12-16 Jeremiah PASTOR recheck INR 12/23 Dilantin Dilantin 2015- No [place] 2 tabs Unknown Kapseal 100 Kapseal 100 12-20 Jeremiah PASTOR AM & mg capsule mg capsule BED furosemide furosemide 2015-03- No [place] take Unknown 40 mg 40 mg 01-01 Jeremiah PASTOR one tablet tablet tablet by mouth bid carvedilol carvedilol 2015-03- No [facility] take Unknown 6.25 mg 6.25 mg 01-01 Jeremiah PASTOR one- tablet tablet half tablet by mouth bid oxygen oxygen 2015-03 No [facility] 3.5 Unknown 0 Jeremiah PASTOR litters at home and 4.5 out of the home Coumadin 1 Coumadin 1 2015-03- No [place] take Unknown mg tablet mg tablet 0-03 01- Jeremiah PASTOR 6tabs q bedtime to prevent blood clots [facility] 01/08 carvedilol carvedilol 2015-03- [place] take Unknown 6.25 mg 6.25 mg 0- Jeremiah PASTOR 0.5 tablet tablet tablet by mouth bid nitrofurant nitrofurant 2015-03- No [facility] 1 cap x Unknown oin oin 0-09 01- Jeremiah PASTOR 10 days macrocrysta macrocrysta l 100 mg l 100 mg capsule capsule Coumadin 1 Coumadin 1 2015-03- No [facility] take Unknown mg tablet mg tablet 01-20 Jeremiah PASTOR 6tabs q bedtime to prevent blood clots [facility] 01/20 Coumadin 1 Coumadin 1 2015-03- No [place] 6 tabs Unknown mg tablet mg tablet - Jeremiah PASTOR Coumadin 1 Coumadin 1 2015-03- No [facility] 6 tabs Unknown mg tablet mg tablet 04-09 12- Jeremiah PASTOR Coumadin 1 Coumadin 1 2015-03- No [facility] 6-9 Unknown mg tablet mg tablet 05-04- Jeremiah PASTOR tabs Augmentin Augmentin 2015-03- No [facility] 875/125 Unknown 875 mg-125 875 mg-125 05-06 Jeremiah PASTOR mg mg tablet mg tablet Coumadin 1 Coumadin 1 2015-03- No [facility] 6mg-9mg Unknown mg tablet mg tablet 05-11 Jeremiah PASTOR Landiegous 2015-03- No [place] 32 Unknown Solostar Solostar 05-11 Jeremiah PASTOR Units U-100 U-100 Insulin 100 Insulin 100 unit/mL (3 unit/mL (3 mL) mL) subcutaneou subcutaneou s pen s pen Coumadin 1 Coumadin 1 2015-03- No [place] 6mg Unknown mg tablet mg tablet 05-19- Jeremiah PASTOR (Suni/Edward es/Josephine s/Sat)- 9mg M/W/F Coumadin 1 Coumadin 1 2016- No [place] 8mg X1 Unknown mg tablet mg tablet 03-25 Jeremiah PASTOR (03/25/16 ), then M,W,F 9mg, other days 6mg. RECHECK INR 04/01/16 insulin insulin 2016- No [facility] 32 Unknown glargine glargine 03-25 Jeremiah PASTOR Units (U-100) 100 (U-100) 100 unit/mL unit/mL subcutaneou subcutaneou s solution s solution cephALEXin cephALEXin 2016- No [place] 500mg Unknown 500 mg 500 mg 03-27 Jeremiah PASTOR capsule capsule insulin insulin 2016- No [place] 37 Unknown glargine glargine 03-27 Jeremiah PASTOR Units (U-100) 100 (U-100) 100 unit/mL unit/mL subcutaneou subcutaneou s solution s solution Coumadin 1 Coumadin 1 2016- No [place] 8mg X1 Unknown mg tablet mg tablet 04-01 Jeremiah PASTOR (03/25/16 ), then M,W,F 9mg, other days 6mg. RECHECK INR 04/01/16 Coumadin 1 Coumadin 1 2016- No [facility] 8mg X1 Unknown mg tablet mg tablet 04-01 Jeremiah PASTOR (03/25/16 ), then M,W,F 9mg, other days 6mg. RECHECK INR 04/01/16 insulin insulin 2016- No [facility] 25 Unknown glargine glargine 04-01 Jeremiah PASTOR Units (U-100) 100 (U-100) 100 unit/mL unit/mL subcutaneou subcutaneou s solution s solution furosemide furosemide 2015-03- No [facility] 1 tab Unknown 40 mg 40 mg 0 10-20 ,Jeremiah tablet tablet Dilantin Dilantin 2016- No [facility] 2 tabs Unknown Kapseal 100 Kapseal 100 9-30 05-30 MD,Jeremiah mg capsule mg capsule carvedilol carvedilol 2015-03- No [facility] 0.5 tab Unknown 6.25 mg 6.25 mg 012 04-25 MD,Jeremiah tablet tablet Coumadin 1 Coumadin 1 2016- No [place] 6-9 Unknown mg tablet mg tablet 04-01 Jeremiah PASTOR tabs insulin insulin 2016- [facility] 25 Unknown glargine glargine 04-01 Jeremiah PASTOR Units (U-100) 100 (U-100) 100 unit/mL unit/mL subcutaneou subcutaneou s solution s solution warfarin 1 warfarin 1 2016- No [place] 6mg Unknown mg tablet mg tablet 04-08 Jeremiah PASTOR warfarin 1 warfarin 1 2016- No [facility] 9mg Unknown mg tablet mg tablet 04-08 Jeremiah PASTOR warfarin 1 warfarin 1 2016- No [facility] 6 tabs Unknown mg tablet mg tablet 04-08 Jeremiah PASTOR (Thu/ es/Thur s/Sat) warfarin 1 warfarin 1 2016- No [place] 6 tabs Unknown mg tablet mg tablet 04-08 Jeremiah PASTOR (Thu/ es/Thur s/Sat) warfarin 1 warfarin 1 2016- No [facility] 9 tabs Unknown mg tablet mg tablet 04-08 Jeremiah PASTOR (Thu/ d/Thu) acetaminoph acetaminoph No [place] 2 tab Unknown en 325 mg en 325 mg 04-21 Jeremiah PASTOR tablet tablet warfarin 1 warfarin 1 2016- No [place] 11 tabs Unknown mg tablet mg tablet 05-05 Jeremiah PASTOR warfarin 1 warfarin 1 2016- No [facility] 9 tabs Unknown mg tablet mg tablet 05-06 Jeremiah PASTOR (Thu/ d/Thu) Keflex 500 Keflex 500 2016- No [facility] 1 Unknown mg capsule mg capsule 05-24 Jeremiah PASTOR warfarin 1 warfarin 1 2016- No [place] 6-9 Unknown mg tablet mg tablet 06-12 Jeremiah PASTOR tablets (6-9 mgs) senna 8.6 senna 8.6 2017- No [place] 1-2 tab Unknown mg tablet mg tablet 06-19 Jeremiah PASTOR warfarin 1 warfarin 1 2016- No [facility] 9mg on Unknown mg tablet mg tablet 07-08 Jeremiah PASTOR 07/08 only repeat INR 4/25 warfarin 1 warfarin 1 2016- No [facility] 6-9 Unknown mg tablet mg tablet 07-08 ,Jeremiah tablets (6-9 mgs)rep eat INR 4/25 cephALEXin cephALEXin 2016- No [facility] 500mg Unknown 500 mg 500 mg 07-08 ,Jeremiah cap capsule capsule warfarin 1 warfarin 1 2016- No [place] 11 Unknown mg tablet mg tablet 07-14 ,Jeremiah tablets -07/14, 9 tabs M/W/F and 6tabs T//F/ Sat/Sun cephALEXin cephALEXin 2016- No [facility] 1 cap Unknown 500 mg 500 mg 07-08 ,Jeremiah capsule capsule warfarin 1 warfarin 1 2016- No [place] 3 tabs Unknown mg tablet mg tablet 07-21 Jeremiah PASTOR 5/1,2 tabs 5/2,3 tabs 5/3,2 tabs 5/4,3 tabs 5/5,3 tabs 5/6,2 tabs 5/7 warfarin 3 warfarin 3 2016- No [facility] 3 tabs Unknown mg tablet mg tablet 07-21 Jeremiah PASTOR 5/1,2 tabs 5/2,3 tabs 5/3,2 tabs 5/4,3 tabs 5/5,3 tabs 5/6,2 tabs 5/7 warfarin 3 warfarin 3 2016- No [place] 3 tabs Unknown mg tablet mg tablet 07-21 Jeremiah PASTOR Mon,Wed ,Fri,Sa t 2 tabs Sun,Tue s,Thur repeat INR 5/15 warfarin 3 warfarin 3 2016- No [facility] 4.5 mg Unknown mg tablet mg tablet 08-04 Jeremiah PASTOR for today only then:6m g Tues and Thurs,9 mg Mon Wed Fri Sat and Sun repeat INR 5/22 warfarin 3 warfarin 3 2016- No [place] 2 tabs Unknown mg tablet mg tablet 08-11 Jeremiah PASTOR (6 mg Tues and Thurs), 3 tabs (9mg Mon/Wed /Fri/Sa t/Sun enoxaparin enoxaparin [facility] 1ml Unknown sodium 100 sodium 100 08-19 Jeremiah PASTOR/1mL mg/1mL subcutaneou subcutaneou s syringe s syringe HYDROcodone HYDROcodone [place] 1 tab Unknown 5 5 08-19 Jeremiah PASTOR mg-acetamin mg-acetamin ophen 325 ophen 325 mg tablet mg tablet warfarin 3 warfarin 3 [place] 2 tabs Unknown mg tablet mg tablet 08-19 Jeremiah PASTOR (6 mg and ), 3 tabs (9mg Thu/Thu /Thu/ t/Sun warfarin 3 warfarin 3 [facility] 2 tabs Unknown mg tablet mg tablet 08-19 Jeremiah PASTOR (6 mg and ), 3 tabs (9mg Thu/Thu /Thu/ t/Sun warfarin 3 warfarin 3 [place] 4 tabs Unknown mg tablet mg tablet 08-21 Jeremiah PASTOR 6/2 and 08/23 repeat INR 6/5 cephALEXin cephALEXin [place] 1 cap Unknown 500 mg 500 mg 08-22 Jeremiah PASTOR for 4 capsule capsule days warfarin 3 warfarin 3 [place] 12mg Unknown mg tablet mg tablet 08-25 Jeremiah PASTOR 6/6,9mg 7-08/21 1 repeat INR 6/12 warfarin 3 warfarin 3 No [place] 12mg Unknown mg tablet mg tablet 08-25 Jeremiah PASTOR 6/6,9mg /7-08/21 1 repeat INR 6/12 warfarin 3 warfarin 3 2016- No [place] 12mg Unknown mg tablet mg tablet 09-01 Jeremiah PASTOR 6/12,9m g 09/02-,repe at INR 6/19 warfarin 3 warfarin 3 [facility] 9mg Unknown mg tablet mg tablet 09-15 Jeremiah PASTOR until September 28 then repeat INR cephALEXin cephALEXin [facility] 500mg Unknown 500 mg 500 mg 09-16 Jeremiah PASTOR capsule capsule warfarin 3 warfarin 3 2016- No [facility] 9mg Unknown mg tablet mg tablet 09-29 Jeremiah PASTOR daily repeat INR 10/13 insulin insulin 2016- No [facility] 30 Unknown glargine glargine 10-06 Jeremiah PASTOR Units (U-100) 100 (U-100) 100 unit/mL unit/mL subcutaneou subcutaneou s solution s solution warfarin 3 warfarin 3 2016- No [place] hold Unknown mg tablet mg tablet 10-14 Jeremiah PSATOR 10/14,9m g thu,thu s, sat and sun,6mg mon and fri,rep eat INR 87 insulin insulin 2017- No [facility] 35 Unknown glargine glargine 10-20 Jeremiah PASTOR Units (U-100) 100 (U-100) 100 unit/mL unit/mL subcutaneou subcutaneou s solution s solution warfarin 3 warfarin 3 2016- No [place] hold Unknown mg tablet mg tablet 10-27 Jeremiah PASTOR until 10/29 repeat INR 10 warfarin 3 warfarin 3 2016- No [facility] 9mg Unknown mg tablet mg tablet 10-30 Jeremiah PASTOR thursday and da y,6mg Thu.,Fr i,and Sun,rep eat INR 11/03 warfarin 3 warfarin 3 2016- No [place] 7.5mg Unknown mg tablet mg tablet 11-03 Jeremiah PASTOR 11/03 then 9mg sat and 6mg thu fri and sun,rep eat INR 11/10 cephALEXin cephALEXin 2016- No [facility] 500mg Unknown 500 mg 500 mg 11-03 Jeremiah PASTOR capsule capsule warfarin 3 warfarin 3 2016- No [facility] 6mg Unknown mg tablet mg tablet 11-18 Jeremiah PASTOR Thu,Thu ,Fri and Sun,9mg ,, and Sat repeat INR 9/5 warfarin 3 warfarin 3 2016- No [place] hold Unknown mg tablet mg tablet 11-25 Jeremiah PASTOR 11/25 then 6mg sat,9mg Thu Fri and Sun warfarin 3 warfarin 3 [place] hol on Unknown mg tablet mg tablet 12-09 Jeremiah PASTOR,9m g Wed and Sat,6mg the rest of the week and repeat INR on 12/16 warfarin 3 warfarin 3 2016- [place] hold on Unknown mg tablet mg tablet 12-16 10 Jeremiah PASTOR,6m g 6xwk,9m g on Sat,rep eat INR on 12/30 warfarin 3 warfarin 3 2016-03- No [facility] 2.5 Unknown mg tablet mg tablet 01-06 Jeremiah PASTOR tabs today,6 mg the rest of the week but 9mg on Sat.,re peat INR in one week if pt doesnt go to clinic on 01/05 cephALEXin cephALEXin 2016-03 [place] 1 Unknown 500 mg 500 mg 01-10 Jeremiah PASTOR Tablet capsule capsule warfarin 3 warfarin 3 2016-03- [place] hold Unknown mg tablet mg tablet 01-20 Jeremiah PASTORight ,6mg daily ,9mg just on Sat. repeat INR in 2wks warfarin 3 warfarin 3 2016-03- No [facility] 9mg Unknown mg tablet mg tablet 01-27 Jeremiah PASTOR 01/20 ,6mg daily ,9mg just on Sat. repeat INR 02/03 warfarin 3 warfarin 3 2016-03- No [place] 6mg Unknown mg tablet mg tablet 03-29 Jeremiah PASTOR daily,9 mg Thursday, repeat INR 11/14,1 04/12,,,04/14 ,05/12,3 ,4/2 4,08/11, 09/08,,11/10 ,12/08,1 warfarin 3 warfarin 3 2016-03- No [place] 6mg Unknown mg tablet mg tablet 04-12 Jeremiah PASTOR daily,9 mg Thursday, repeat INR 11/14,1 04/12,,,04/14 ,2,3 /20,4/2 4,5, 6,,11/10 ,12/08,1 0 warfarin 3 warfarin 3 2016-03- No [facility] 6mg Unknown mg tablet mg tablet 05-11 Jeremiah PASTOR daily,h old 03/10 9mg Sun,6mg daily repeat INR 02/03,1 04/12,,,04/14 ,05/12,3 ,4 4,08/11, 09/08,,11/10 ,12/08,1 Ciprodex Ciprodex 2016-03- No [facility] 4 drops Unknown 0.3 %-0.1 % 0.3 %-0.1 % 05-11 Jeremiah PASTOR 2xd ear ear drops,suspe drops,suspe nsion nsion Ambien 5 mg Ambien 5 mg 2017- No [place] / tab Unknown tablet tablet 04-03 eJremiah PASTOR warfarin 3 warfarin 3 2017- No [facility] increas Unknown mg tablet mg tablet 04-03 Jeremiah PASTOR 03/24 tab 04/04,6m g daily, 9mg Sun,6mg daily repeat INR 02/03,1 04/12,,,04/14 ,05/12,,4 4,08/11, 09/08,,11/10 ,12/08,1 warfarin 3 warfarin 3 2017- No [place] ,6mg Unknown mg tablet mg tablet 04-07 Jreemiah PASTOR daily, 9mg Sun, repeat INR 04/14,,06/09 ,07/14,,6 9,10/01, 11/10,,12/22 3 warfarin 3 warfarin 3 2017- No [facility] hold Unknown mg tablet mg tablet 04-13 Jeremiah PASTOR 04/13 2mg 04/14,6m g dailly, 9mg Sun, repeat INR 04/20,2,3 ,07/14,5 ,6 9,10/01, 11/10,,10 3 metoprolol metoprolol No [place] 25mg Unknown tartrate 25 tartrate 25 - Jeremiah PASTOR mg tablet mg tablet Ambien 10 Ambien 10 2017- No [place] 10 mg Unknown mg tablet mg tablet 04-2014 Jeremiah PASTOR finasteride finasteride No [facility] 1 tab Unknown 5 mg tablet 5 mg tablet 05-18 Jeremiah PASTOR AM warfarin 3 warfarin 3 2017- No [facility] hold Unknown mg tablet mg tablet 05-19 Jeremiah PASTOR for 4 days and resume 6mg daily and repeat INR in one week 05/25 or 05/26 warfarin 3 warfarin 3 2017- No [place] 2-3 Unknown mg tablet mg tablet 05-26 Jeremiah PASTOR tabs cephALEXin cephALEXin 2017- No [place] 1 cap Unknown 500 mg 500 mg 05-26 Jeremiah PASTOR capsule capsule warfarin 3 warfarin 3 2017- No [facility] Hold Unknown mg tablet mg tablet 06-01 Jeremiah PASTOR 06/01,,06/03 then 6mg daily,3 mg 06/06,re peat INR 06/08 or 06/09 warfarin 3 warfarin 3 2017- No [facility] 6mg Unknown mg tablet mg tablet 06-08 Jeremiah PASTOR daily,3 mg 06/13,re peat INR in one week warfarin 3 warfarin 3 2017- No [facility] 6mg Unknown mg tablet mg tablet 06-15 Jeremiah PASTOR daily,3 mg 06/20,re peat INR in one week warfarin 3 warfarin 3 2017- No [place] 6mg Unknown mg tablet mg tablet 06-22 Jeremiah PASTOR qd,3mg on 06/27,rep eat INR on 06/29 or 06/30 warfarin 3 warfarin 3 2017- No [facility] 6mg Unknown mg tablet mg tablet 06-29 Jeremiah PASTOR qd,3mg on 07/04,re peat INR on 07/06 or 07/07 warfarin 3 warfarin 3 2017- No [facility] 6mg Unknown mg tablet mg tablet 07-14 Jeremiah PASTOR qd,3mg on 07/14 and 07/18,Re peat INR on 07/20 or warfarin 3 warfarin 3 2017- No [facility] hold Unknown mg tablet mg tablet 07-21 Jeremiah PASTOR ,then 6mg daily ,3mg 5/ and /.Rep eat INR on 07/27 or 07/28 warfarin 3 warfarin 3 2017- No [facility] 3mg Unknown mg tablet mg tablet 07-28 Jeremiah PASTOR tues,th urs,sat 6mg thu,thu ,fri and sun,rep eat INR 08/10 or 08/11 Ambien 10 Ambien 10 No [place] 1/2 tab Unknown mg tablet mg tablet 08-03 ,Jeremiah warfarin 3 warfarin 3 2017- No [facility] 9mg Unknown mg tablet mg tablet 08-10 Jeremiah PASTOR ,3mg tues,th urs,sat ,6mg thu,thu ,thu,an d sun.Rep eat INR in 2 wks warfarin 3 warfarin 3 2017- No [place] 6mg Unknown mg tablet mg tablet 08-24 Jeremiah PASTOR-Sun,3 mg Tues and Sat repeat on 08/31 or 09/01 cephALEXin cephALEXin 2017- No [place] 1 tab Unknown 500 mg 500 mg 08-29 Jeremiah PASTOR tablet tablet warfarin 3 warfarin 3 2017- No [place] 6mg Unknown mg tablet mg tablet 09-01 Jeremiah PASTORSun,3 mg Tues and Sat repeat on 08/31 or 09/01 warfarin 3 warfarin 3 2017- No [facility] 6mg Unknown mg tablet mg tablet 09-07 Jeremiah PASTORSuni,3 mg Tues Sat repeat INR 09/14 or 09/15 warfarin 3 warfarin 3 2017- No [facility] Unknown Unknown mg tablet mg tablet 09-15 ,Jeremiah warfarin 3 warfarin 3 2017- No [place] Unknown Unknown mg tablet mg tablet 09-29 ,Jeremiah warfarin 3 warfarin 3 2017- No [facility] Unknown Unknown mg tablet mg tablet 10-13 Jeremiah PASTOR hydrOXYzine hydrOXYzine 2017- No [facility] Unknown Unknown HCl 10 mg HCl 10 mg 11-10 Jeremiah PASTOR tablet tablet warfarin 3 warfarin 3 2017- No [place] Unknown Unknown mg tablet mg tablet 11-11 ,Jeremiah warfarin 3 warfarin 3 2017- No [facility] Unknown Unknown mg tablet mg tablet 11-24 ,Jeremiah amoxicillin amoxicillin 2017- No [place] Unknown Unknown 125 mg 125 mg 12-01 ,Jeremiah tablet tablet prednisone prednisone 2017- No [facility] Unknown Unknown 20 mg 20 mg 12-01 ,Jeremiah tablet tablet warfarin 3 warfarin 3 2017- No [facility] Unknown Unknown mg tablet mg tablet 12-08 MD,Jeremiah warfarin 3 warfarin 3 2017-03- No [facility] Unknown Unknown mg tablet mg tablet 01-26 MD,Jeremiah warfarin 3 warfarin 3 2017-03- No [place] Unknown Unknown mg tablet mg tablet 03-28 MD,Jeremiah warfarin 3 warfarin 3 2017-03- No [place] Unknown Unknown mg tablet mg tablet 04-04 ,Jeremiah warfarin 3 warfarin 3 2017-03- No [place] Unknown Unknown mg tablet mg tablet 04-18 ,Jeremiah warfarin 3 warfarin 3 2017-03- No [place] Unknown Unknown mg tablet mg tablet 04-26 ,Jeremiah warfarin 3 warfarin 3 2017-03- No [facility] Unknown Unknown mg tablet mg tablet 04-26 ,Jeremiah atorvastati atorvastati 2017-03 No [place] Unknown Unknown n 40 mg n 40 mg 05-16 Jeremiah PASTOR tablet tablet insulin insulin 2017-03- No [place] Unknown Unknown glargine glargine 05-16 Jeremiah PASTOR (U-100) 100 (U-100) 100 unit/mL unit[facility] solution sennosides sennosides 2017-03- No [place] Unknown Unknown 8.6 mg 8.6 mg 05-16 ,Jeremiah tablet tablet warfarin 3 warfarin 3 2017-03- No [place] Unknown Unknown mg tablet mg tablet 03-22 ,Jeremiah warfarin 3 warfarin 3 2017-03- No [place] Unknown Unknown mg tablet mg tablet 03-31 ,Jeremiah lisinopril lisinopril 2017-03 No [place] Unknown Unknown 5 mg tablet 5 mg tablet 05-16 Jeremiah PASTOR omeprazole omeprazole 2017-03- No [facility] Unknown Unknown magnesium magnesium 05-16 12-24 Jeremiah PASTOR 20 mg 20 mg tablet,skyler tablet,skyler yed release yed release omeprazole omeprazole 2017-03- No [place] Unknown Unknown magnesium magnesium 05-16 05-14 Jeremiah PASTOR 20 mg 20 mg tablet,skyler tablet,skyler yed release yed release cholecalcif cholecalcif 2017-03 No [place] Unknown Unknown rob rob 2-24 Jeremiah PASTOR (vitamin (vitamin D3) 1,000 D3) 1,000 unit (25 unit (25 mcg) tablet mcg) tablet hydrOXYzine hydrOXYzine 2017-03 No [facility] Unknown Unknown HCl 10 mg HCl 10 mg 05-16 Jeremiah PASTOR tablet tablet warfarin 3 warfarin 3 2018- No [place] Unknown Unknown mg tablet mg tablet 03-31 Jeremiah PASTOR predniSONE predniSONE 2018- No [facility] Unknown Unknown 20 mg 20 mg 03-31 Jeremiah PASTOR tablet tablet phenazopyri phenazopyri 2018- No [place] Unknown Unknown dine 100 mg dine 100 mg 04-01 Jeremiah PASTOR tablet tablet cephALEXin cephALEXin 2018- No [place] Unknown Unknown 500 mg 500 mg 04-30 Jeremiah PASTOR capsule capsule warfarin 3 warfarin 3 2018- No [place] Unknown Unknown mg tablet mg tablet 05-14 Jeremiah PASTOR ciprofloxac ciprofloxac 2018- No [facility] Unknown Unknown in 500 mg in 500 mg 05-14 Jeremiah PASTOR tablet tablet insulin insulin 2018- No [place] Unknown Unknown glargine glargine 05-27 Jeremiah PASTOR (U-100) 100 (U-100) 100 unit/mL unit/mL subcutaneou subcutaneou s solution s solution warfarin 3 warfarin 3 2018- No [facility] Unknown Unknown mg tablet mg tablet 05-31 Jeremiah PASTOR Victoza Victoza 2018- No [facility] Unknown Unknown 2-Gurinder 0.6 2-Gurinder 0.6 06-01 Jeremiah PASTOR mg/0.1 mL mg/0.1 mL (18 mg/3 (18 mg/3 mL) mL) subcutaneou subcutaneou s pen s pen injector injector Victoza Victoza No [place] Unknown Unknown 2-Gurinder 0.6 2-Gurinder 0.6 3-20 Jeremiah PASTOR mg/0.1 mL mg/0.1 mL (18 mg/3 (18 mg/3 mL) mL) subcutaneou subcutaneou s pen s pen injector injector mometasone mometasone No [place] Unknown Unknown 220 220 3-18 Jeremiah PASTOR mcg/actuati mcg/actuati on(60 on(60 doses) doses) breath breath activated activated powder powder inhaler inhaler warfarin 3 warfarin 3 2018- No [facility] Unknown Unknown mg tablet mg tablet 06-15-16 Jeremiah PASTOR warfarin 3 warfarin 3 2018- No [facility] Unknown Unknown mg tablet mg tablet 07-06 Jeremiah PASTOR cephALEXin cephALEXin 2018- No [place] Unknown Unknown 500 mg 500 mg 08-03- Jeremiah PASTOR tablet tablet warfarin 3 warfarin 3 2018- No [facility] Unknown Unknown mg tablet mg tablet 08-10 Jeremiah PASTOR warfarin 3 warfarin 3 2018- No [facility] Unknown Unknown mg tablet mg tablet 08-10- Jeremiah PASTOR omeprazole omeprazole No [place] Unknown Unknown magnesium magnesium - Jeremiah PASTOR 20 mg 20 mg tablet,skyler tablet,skyler yed release yed release warfarin 3 warfarin 3 2018- No [facility] Unknown Unknown mg tablet mg tablet 08-31 Jeremiah PASTOR warfarin 3 warfarin 3 2018- No [facility] Unknown Unknown mg tablet mg tablet 09-14 07-10 Jeremiah PASTOR warfarin 3 warfarin 3 2018- No [place] Unknown Unknown mg tablet mg tablet 09-29-14 Jeremiah PASTOR warfarin 3 warfarin 3 2018- No [facility] Unknown Unknown mg tablet mg tablet 11-03 Jeremiah PASTOR Augmentin Augmentin 2018- Yes [facility] Unknown Unknown 500 mg-125 500 mg-125 12-14 10- Jeremiah PASTOR mg tablet mg tablet fluconazole fluconazole 2018- Yes [place] Unknown Unknown 100 mg 100 mg 12-14- Jeremiah PASTOR tablet tablet warfarin 3 warfarin 3 Yes [place] Unknown Unknown mg tablet mg tablet 12-14- ,Jeremiah warfarin 3 warfarin 3 2018-03 Yes [facility] Unknown Unknown mg tablet mg tablet 002 10-20 Jeremiah PASTOR carbamide carbamide 2018-03 Yes [place] Unknown Unknown peroxide peroxide 0-09 Jeremiah PASTOR 6.5 % ear 6.5 % ear drops drops cephALEXin cephALEXin 2018-03 Yes [facility] Unknown Unknown 500 mg 500 mg 0-20 - Jeremiah PASTOR capsule capsule doxycycline doxycycline 2018-03 Yes [place] Unknown Unknown monohydrate monohydrate 0-20 - Jeremiah PASTOR 100 mg 100 mg capsule capsule Eliquis 5 Eliquis 5 2018-03 Yes [facility] Unknown Unknown mg tablet mg tablet 0-20 Jeremiah PASTOR oxyCODONE 5 oxyCODONE 5 2018-03 Yes [facility] Unknown Unknown mg tablet mg tablet 0-20 ,Jeremiah Lasix 20 mg Lasix 20 mg 2018-03 Yes [place] Unknown Unknown tablet tablet 0-20 ,Jeremiah insulin insulin 2018-03 Yes [place] Unknown Unknown glargine glargine 0-20 Jeremiah PASTOR (U-100) 100 (U-100) 100 unit/mL unit/mL subcutaneou subcutaneou s solution s solution sennosides sennosides 2018-03 Yes [facility] Unknown Unknown 8.6 mg 8.6 mg 0-20 Jeremiah PASTOR tablet tablet carboxymeth carboxymeth 2018-03 Yes [facility] Unknown Unknown ylcellulose ylcellulose 0-20 Jeremiah PASTOR 1 1 %-glycerin %-glycerin 0.9 % eye 0.9 % eye gel drops gel drops Vital Signs Vital Name Observation Time Observation Value Comments SYSTOLIC mm[Hg] 2019-02-01 18:08:49 118 mm[Hg] mm[Hg] Method: Sit SYSTOLIC mm[Hg] 2017-07-21 17:59:29 138 mm[Hg] mm[Hg] Method: Stand SYSTOLIC mm[Hg] 2016-01-22 17:50:23 140 mm[Hg] mm[Hg] Method: Lie DIASTOLIC mm[Hg] 2019-02-01 18:08:49 78 mm[Hg] mm[Hg] Method: Sit DIASTOLIC mm[Hg] 2017-07-21 17:59:29 87 mm[Hg] mm[Hg] Method: Stand DIASTOLIC mm[Hg] 2016-01-22 17:50:23 80 mm[Hg] mm[Hg] Method: Lie PULSE 2019-02-01 18:08:49 65 /min /min RESP RATE 2019-02-01 18:08:49 18 /min /min TEMP 2019-02-01 18:08:49 97.8 [degF] Procedures This patient has no known procedures. Results This patient has no known results.
--- OUTSIDE RECORDS SUMMARY | 2019-02-02 22:30 | XMS REPORT ---
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 Chronic Chronic Diagnosis Active Estelita systolic systolic 06-12 Ulisses (congestive (congestive [id number] ) heart ) heart failure failure Chronic Chronic Diagnosis Active 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 0-13 Ulisses pulmonary pulmonary [id number] disease, disease, unspecified unspecified Type 2 Type 2 Diagnosis Active [place] diabetes diabetes 06-12 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, neuropathy, unsp unsp 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 [id number] toe(s) toe(s) I48.91 I48.91 Diagnosis Active [place] 06-12 Ulisses [id number] Safety knowledge/s Safety Resolve 2015-07-26 Meghann kill d 2-15 15:15:00 Jasen deficit: pt 10:00: [id number] 00 Diagnoses knowledge/s Diagnoses Active Meghann kill 2-15 Jasen deficit: pt 10:00: [id number] 00 Diagnoses knowledge/s Diagnoses Active Meghann kill 2-15 Jasen deficit: cg 10:00: [id number] 00 Respiratory knowledge/s Respirator Resolve 2015-10-22 Martina kill y d 3-07 10:30:00 Sinnigen deficit: cg 10:30: [id number] 00 Pain frequent Pain Mgmt Resolve 2018-08-03 Paula pain d 14 12:10:00 [place] 11:00: [id number] 00 Respiratory oxygen Respirator Resolve 2015-2016-12-09 Paula treatments y d 3-14 12:18:00 Eri in home 11:00: [id number] 00 Respiratory CPAP Respirator Resolve 2016-12-09 Paula treatments y d 3-14 12:18:00 [place] in home 11:00: [id number] 00 Integument skin Integument Resolve 2015-06-08 Paula integrity d 3-14 14:20:00 [place] risk 11:00: [id number] 00 Nutrition knowledge/s Nutrition Resolve 2015-06-08 Paula kill d 3-14 14:20:00 [place] deficit: pt 11:00: [id number] 00 Nutrition knowledge/s Nutrition Resolve 2015-06-08 Paula kill d 3-14 14:20:00 [place] deficit: cg 11:00: [id number] Neuro knowledge/s Neuro/Emot Resolve 2015-06-08 Paula kill ion d 3-14 14:20:00 [place] deficit: pt 11:00: [id number] Neuro seizures Neuro/Emot Resolve 2015-06-08 Paula ion d 3-14 14:20:00 [place] 11:00: [id number] 00 Activity ADL Activity Resolve 2015-06-08 Paula assistance d 3-14 14:20:00 Eri required 11:00: [id number] Safety fall risk Safety Resolve 2015-06-08 Paula factor d 3-14 14:20:00 Eri present 11:00: [id number] 00 Safety risk for Safety Resolve 2015-06-08 Paula hospitaliza d 3-14 14:20:00 [place] tion 11:00: [id number] 00 Medication knowledge/s Meds Resolve 2015-06-08 Paula kill d 3-14 14:20:00 Eri deficit: pt 11:00: [id number] 00 Musculoskel knowledge/s Musculoske Resolve 2015-06-08 Paula etal kill letal d 3-14 14:20:00 Eri deficit: pt 11:00: [id number] Psych psych risk Psych Resolve 2015-06-08 Paula Problems factors d 3-14 14:20:00 [place] present 11:00: [id number] 00 Bed transfer PT/OT: Bed Resolve 2015-06-08 Rubén Mobility/Tr deficit: Mobility/T d 3-18 14:20:00 Que mack sit/stand ransfer 14:20: [id number] 00 Bed transfer PT/OT: Bed Resolve 2015-06-08 Rubén Mobility/Tr deficit: Mobility/T d 3-18 14:20:00 Que mack toilet/comm ransfer 14:20: [id number] ode 00 Bed transfer PT/OT: Bed Resolve 2015-06-08 Rubén Mobility/Tr deficit: Mobility/T d 318 14:20:00 Que mack shower/tub ransfer 14:20: [id number] 00 Bed transfer PT/OT: Bed Resolve 2015-06-08 Rubén Mobility/Tr deficit: Mobility/T d 318 14:20:00 Que mack vehicle ransfer 14:20: [id number] 00 Bed knowledge/s PT/OT: Bed Resolve 2015-06-08 Rubén Mobility/Tr kill Mobility/T d 318 14:20:00 Que mack deficit: pt ransfer 14:20: [id number] 00 Bed bed PT/OT: Bed Resolve 2015-06-08 Rubén Mobility/Tr mobility Mobility/T d 318 14:20:00 Que mack deficit ransfer 14:20: [id number] 00 Balance/End endurance PT/OT: Resolve 2015-06-12 Rubén urance deficit Balance/En d 318 14:50:00 Que durance 14:20: [id number] 00 Balance/End knowledge/s PT/OT: Resolve 2015-06-12 Rubén urance kill Balance/En d 18 14:50:00 Que deficit: pt durance 14:20: [id number] 00 Gait/Locomo gait PT/OT: Resolve 2015-06-08 Rubén tion assistive Gait/Locom d 318 14:20:00 Que problems device otion 14:20: [id number] present 00 Gait/Locomo knowledge/s PT/OT: Resolve 2015-06-08 Rubén tion kill Gait/Locom d 06-07 14:20:00 Que problems deficit: pt otion 14:20: [id number] 00 Gait/Locomo gait PT/OT: Resolve 2015-06-08 Rubén tion deficit Gait/Locom d 06-07 14:20:00 Que problems otion 14:20: [id number] 00 Safety risk for Safety Resolve 2015-06-12 [facility]-10 14:50:00 [place] tion 09:35: [id number] 00 Bed transfer PT/OT: Bed Resolve 2015-06-12 Rubén Mobility/Tr deficit: Mobility/T d 06-11 14:50:00 Que ansfer sit/stand ransfer 14:50: [id number] 00 Gait/Locomo knowledge/s PT/OT: Resolve 2015-06-12 Rubén tion kill Gait/Locom d 06-11 14:50:00 Que problems deficit: pt otion 14:50: [id number] 00 Gait/Locomo gait PT/OT: Resolve 2015-06-12 Rubén tion deficit Gait/Locom d 06-11 14:50:00 Que problems otion 14:50: [id number] 00 Safety risk for Safety Resolve 2015-06-[facility] 14:20:00 Eri tion 10:30: [id number] 00 Bed transfer PT/OT: Bed Resolve 2015-06-15 Rubén Mobility/Tr deficit: Mobility/T d 06-14 14:20:00 Que ansfer sit/stand ransfer 14:20: [id number] 00 Bed transfer PT/OT: Bed Resolve 2015-06-15 Rubén Mobility/Tr deficit: Mobility/T d 06-14 14:20:00 Que ansfer toilet/comm ransfer 14:20: [id number] ode 00 Gait/Locomo gait PT/OT: Resolve 2015-06-15 Rubén tion assistive Gait/Locom d 06-14 14:20:00 Que problems device otion 14:20: [id number] present 00 Gait/Locomo knowledge/s PT/OT: Resolve 2015-06-15 Rubén tion kill Gait/Locom d 06-14 14:20:00 Que problems deficit: pt otion 14:20: [id number] 00 Gait/Locomo gait PT/OT: Resolve 2015-06-15 Rubén tion deficit Gait/Locom d 06-14 14:20:00 Que problems otion 14:20: [id number] 00 Respiratory dyspnea Respirator Resolve 2016-12-09 Paula present y d 06-21 12:18:00 Eri 13:00: [id number] 00 Respiratory lung sounds Respirator Resolve 2015-06-29 Paula deficit y d 06-21 14:20:00 Eri 13:00: [id number] 00 Bed transfer PT/OT: Bed Resolve 2015-06-22 Rubén Mobility/Tr deficit: Mobility/T d 06-21 14:20:00 Que ansfer sit/stand ransfer 14:20: [id number] 00 Balance/End knowledge/s PT/OT: Resolve 2015-06-22 Rubén urance kill Balance/En d 06-21 14:20:00 Que deficit: pt durance 14:20: [id number] 00 Balance/End endurance PT/OT: Resolve 2015-06-22 Rubén urance deficit Balance/En d 06-21 14:20:00 Que durance 14:20: [id number] 00 Gait/Locomo knowledge/s PT/OT: Resolve 2015-06-22 Rubén tion kill Gait/Locom d 06-21 14:20:00 Que problems deficit: pt otion 14:20: [id number] 00 Gait/Locomo gait PT/OT: Resolve 2015-06-22 Rubén tion deficit Gait/Locom d 06-21 14:20:00 Que problems otion 14:20: [id number] 00 Gait/Locomo gait PT/OT: Resolve 2015-06-22 Rubén tion assistive Gait/Locom d 06-21 14:20:00 Que problems device otion 14:20: [id number] present 00 Elimination diarrhea Eliminatio Resolve 2015-06-29 Martina n d 06-24 14:20:00 [place] 10:15: [id number] 00 Safety risk for Safety Resolve 2015-06-29 Martina hospitaliza d 06-24 14:20:00 [place] tion 10:15: [id number] 00 Safety can be left Safety Resolve 2015-07-02 Rubén alone for d 06-28 15:15:00 Que only short 14:20: [id number] periods 00 Bed mobility/tr PT/OT: Bed Resolve 2015-07-02 Rubén Mobility/Tr ansfer Mobility/T d 06-28 15:15:00 Que ansfer device ransfer 14:20: [id number] present 00 Bed transfer PT/OT: Bed Resolve 2015-06-29 Rubén Mobility/Tr deficit: Mobility/T d 06-28 14:20:00 Que ansfer sit/stand ransfer 14:20: [id number] 00 Endo/Nito knowledge/s Endo/Nito Resolve 2015-07-05 Paula kill d 07-01 15:15:00 Eri deficit: pt 13:30: [id number] 00 Endo/Nito knowledge/s Endo/Nito Resolve 2015-07-05 Paula kill d 07-01 15:15:00 Eri deficit: cg 13:30: [id number] 00 Endo/Nito knowledge/s Endo/Nito Resolve 2015-07-05 Paula kill d 07-01 15:15:00 Eri deficit 13:30: [id number] hypo/hyperg 00 lycemia: pt Endo/Nito knowledge/s Endo/Nito Resolve 2015-07-05 Paula kill d 07-01 15:15:00 [place] deficit 13:30: [id number] hypo/hyperg 00 lycemia: cg Neuro knowledge/s Neuro/Emot Resolve 2015-07-05 Paula kill ion d 07-01 15:15:00 [place] deficit: pt 13:30: [id number] 00 Neuro seizures Neuro/Emot Resolve 2015-07-05 Paula ion d 07-01 15:15:00 [place] 13:30: [id number] 00 Safety risk for Safety Resolve 2015-07-02 Paula hospitaliza d 07-01 15:15:00 [place] tion 13:30: [id number] 00 Bed transfer PT/OT: Bed Resolve 2015-07-02 Rubén Mobility/Tr deficit: Mobility/T d 07-01 15:15:00 Que ansfer sit/stand ransfer 15:15: [id number] 00 Gait/Locomo gait PT/OT: Resolve 2015-07-02 Rubén tion assistive Gait/Locom d 07-01 15:15:00 Que problems device otion 15:15: [id number] present 00 Gait/Locomo knowledge/s PT/OT: Resolve 2015-07-02 Rubén tion kill Gait/Locom d 07-01 15:15:00 Que problems deficit: pt otion 15:15: [id number] 00 Gait/Locomo gait PT/OT: Resolve 2015-07-02 Rubén tion deficit Gait/Locom d 07-01 15:15:00 Que problems otion 15:15: [id number] 00 Bed transfer PT/OT: Bed Resolve 2015-07-05 Rubén Mobility/Tr deficit: Mobility/T d 07-04 15:15:00 Que ansfer sit/stand ransfer 15:15: [id number] 00 Bed mobility/tr PT/OT: Bed Resolve 2015-07-05 Rubén Mobility/Tr ansfer Mobility/T d 07-04 15:15:00 Que ansfer device ransfer 15:15: [id number] present 00 Balance/End knowledge/s PT/OT: Resolve 2015-07-09 Rubén urance kill Balance/En d 07-04 14:30:00 Que deficit: pt durance 15:15: [id number] 00 Balance/End endurance PT/OT: Resolve 2015-07-05 Rubén urance deficit Balance/En d 07-04 15:15:00 Que durance 15:15: [id number] 00 Gait/Locomo gait PT/OT: Resolve 2015-07-05 Rubén tion assistive Gait/Locom d 07-04 15:15:00 Que problems device otion 15:15: [id number] present 00 Gait/Locomo knowledge/s PT/OT: Resolve 2015-07-05 Rubén tion kill Gait/Locom d - 15:15:00 Que problems deficit: pt otion 15:15: [id number] 00 Gait/Locomo gait PT/OT: Resolve 2015-07-05 Rubén tion deficit Gait/Locom d -14 15:15:00 Que problems otion 15:15: [id number] 00 Bed transfer PT/OT: Bed Resolve 2015-07-11 Rubén Mobility/Tr deficit: Mobility/T d 07-08 14:45:00 Que ansfer sit/stand ransfer 14:30: [id number] 00 Balance/End endurance PT/OT: Resolve 2015-07-09 Rubén urance deficit Balance/En d 07-08 14:30:00 Que durance 14:30: [id number] 00 Gait/Locomo gait PT/OT: Resolve 2015-07-09 Rubén tion assistive Gait/Locom d 07-08 14:30:00 Que problems device otion 14:30: [id number] present 00 Gait/Locomo knowledge/s PT/OT: Resolve 2015-07-09 Rubén tion kill Gait/Locom d 07-08 14:30:00 Que problems deficit: pt otion 14:30: [id number] 00 Gait/Locomo gait PT/OT: Resolve 2015-07-09 Rubén tion deficit Gait/Locom d 07-08 14:30:00 Que problems otion 14:30: [id number] 00 Test/Treatm venipunctur Test/Injec Resolve 2015-07-16 Paula ent e ordered t/Sebastien d 07-09 14:00:00 Eri [id number] Gait/Locomo gait PT/OT: Resolve 2015-07-11 Rubén tion deficit Gait/Locom d 07-10 14:45:00 Que problems otion 14:45: [id number] 00 Gait/Locomo knowledge/s PT/OT: Resolve 2015-07-11 Rubén tion kill Gait/Locom d 07-10 14:45:00 Que problems deficit: pt otion 14:45: [id number] 00 Respiratory lung sounds Respirator Resolve 2015-07-16 Kavon deficit y d 07-11 14:00:00 [place] 09:00: [id number] 00 Respiratory oxygen Respirator Unknown Kavon treatments y 07-11 [place] in home 09:00: [id number] 00 Respiratory dyspnea Respirator Unknown Kavon present y 07-11 [place] 09:00: [id number] 00 Endo/Nito knowledge/s Endo/Nito Resolve 2015-07-16 Kavon kill d 07-11 14:00:00 [place] deficit: cg 09:00: [id number] 00 Endo/Nito knowledge/s Endo/Nito Resolve 2015-07-16 Kavon kill d 07-11 14:00:00 [place] deficit 09:00: [id number] hypo/hyperg 00 lycemia: pt Sensory impaired Sensory Resolve 2015-07-16 Kavon vision d 07-11 14:00:00 [place] 09:00: [id number] 00 Neuro seizures Neuro/Emot Resolve 2015-07-16 Kavon ion d 07-11 14:00:00 [place] 09:00: [id number] 00 Medication oral med Meds Unknown Kavon assistance 07-11 [place] required 09:00: [id number] 00 Musculoskel knowledge/s Musculoske Resolve 2015-07-16 Kavon etal kill letal d 07-11 14:00:00 [place] deficit: pt 09:00: [id number] 00 Psych psych risk Psych Resolve 2015-07-16 Kavon Problems factors d 07-11 14:00:00 [place] present 09:00: [id number] 00 Elimination constipatio Eliminatio Resolve 2015-07-26 Martina n n d 07-15 15:15:00 [place] 09:00: [id number] 00 Safety risk for Safety Resolve 2015-08-07 Rubén hospitaliza d 07-15 14:15:00 Que tion 14:00: [id number] 00 Bed transfer PT/OT: Bed Resolve 2015-07-16 Rubén Mobility/Tr deficit: Mobility/T d 07-15 14:00:00 Que ansfer sit/stand ransfer 14:00: [id number] 00 Gait/Locomo gait PT/OT: Resolve 2015-07-16 Rubén tion deficit Gait/Locom d 07-15 14:00:00 Que problems otion 14:00: [id number] 00 Gait/Locomo knowledge/s PT/OT: Resolve 2015-07-16 Rubén tion kill Gait/Locom d 07-15 14:00:00 Que problems deficit: pt otion 14:00: [id number] 00 Test/Treatm venipunctur Test/Injec Active Paula ent e ordered t/Sebastien 07-17 [place] [id number] Pain frequent Pain Mgmt Unknown Sara pain 07-20 Charli 11:00: [id number] 00 Respiratory oxygen Respirator Unknown Sara treatments y 07-20 Charli in home 11:00: [id number] 00 Respiratory lung sounds Respirator Resolve 2015-08-07 Sara deficit y d 07-20 14:15:00 Charli 11:00: [id number] 00 Endo/Nito diabetic Endo/Niot Resolve 2015-08-15 Sara foot care d 07-20 15:30:00 Charli 11:00: [id number] 00 Endo/Nito knowledge/s Endo/Nito Resolve 2015-08-15 Sara kill d 07-20 15:30:00 Augustin deficit 11:00: [id number] hypo/hyperg 00 lycemia: pt Endo/Nito insulin Endo/Nito Resolve 2016-12-09 Sara admn d 07-20 12:18:00 Augustni dependence 11:00: [id number] 00 Endo/Nito knowledge/s Endo/Nito Resolve 2015-08-15 Sara kill d 07-20 15:30:00 Charli deficit: pt 11:00: [id number] 00 Endo/Nito knowledge/s Endo/Nito Resolve 2015-08-15 Sara kill d 07-20 15:30:00 Charli deficit: cg 11:00: [id number] 00 Integument skin Integument Resolve 2015-08-07 Sara integrity d 07-20 14:15:00 Augustin risk 11:00: [id number] 00 Integument other wound Integument Resolve 2015-08-07 Sara present d 07-20 14:15:00 Augutsin 11:00: [id number] 00 Neuro seizures Neuro/Emot Resolve 2015-08-07 Sara ion d 07-20 14:15:00 Augustin 11:00: [id number] 00 Neuro confusion Neuro/Emot Resolve 2015-08-07 Sara present ion d 07-20 14:15:00 Augustin 11:00: [id number] 00 Neuro anxiety Neuro/Emot Resolve 2015-08-07 Sara present ion d 07-20 14:15:00 Augustin 11:00: [id number] 00 Neuro depressive Neuro/Emot Resolve 2015-08-07 Sara feelings ion d 07-20 14:15:00 Augustin present 11:00: [id number] 00 Activity ADL Activity Unknown Sara assistance 07-20 Charli required 11:00: [id number] 00 Safety fall risk Safety Resolve 2015-08-07 Sara factor d 07-20 14:15:00 Augustin present 11:00: [id number] 00 Medication oral med Meds Resolve 2016-01-08 Sara assistance d 07-20 11:20:00 Charli required 11:00: [id number] 00 Medication injectable Meds Resolve 2016-09-15 Sara med d 07-20 09:00:00 Charli assistance 11:00: [id number] required 00 Musculoskel knowledge/s Musculoske Resolve 2015-08-07 Sara etal kill letal d 07-20 14:15:00 Charli deficit: pt 11:00: [id number] 00 Musculoskel transfer Musculoske Unknown Sara etal assistance letal 07-20 Charli required 11:00: [id number] 00 Bed transfer PT/OT: Bed Resolve 2015-07-26 Rubén Mobility/Tr deficit: Mobility/T d 07-25 15:15:00 Que mack sit/stand ransfer 15:15: [id number] 00 Gait/Locomo gait PT/OT: Resolve 2015-07-26 Rubén tion assistive Gait/Locom d 07-25 15:15:00 Que problems device otion 15:15: [id number] present 00 Gait/Locomo gait PT/OT: Resolve 2015-07-26 Rubén tion deficit Gait/Locom d 07-25 15:15:00 Que problems otion 15:15: [id number] 00 Gait/Locomo knowledge/s PT/OT: Resolve 2015-07-26 Rubén tion kill Gait/Locom d 07-25 15:15:00 Que problems deficit: pt otion 15:15: [id number] 00 Bed transfer PT/OT: Bed Resolve 2015-08-07 Rubén Mobility/Tr deficit: Mobility/T d 07-29 14:15:00 Que ansfer sit/stand ransfer 14:45: [id number] 00 Gait/Locomo knowledge/s PT/OT: Resolve 2015-07-30 Rubén tion kill Gait/Locom d 07-29 14:45:00 Que problems deficit: pt otion 14:45: [id number] 00 Gait/Locomo gait PT/OT: Resolve 2015-07-30 Rubén tion assistive Gait/Locom d 07-29 14:45:00 Que problems device otion 14:45: [id number] present 00 Gait/Locomo gait PT/OT: Resolve 2015-07-30 Rubén tion deficit Gait/Locom d 07-29 14:45:00 Que problems otion 14:45: [id number] 00 Respiratory dyspnea Respirator Unknown Paula present y 08-01 Eri 12:00: [id number] 00 Elimination urinary Eliminatio Resolve 2015-08-02 Paula incontinenc n d 08-01 12:00:00 Eri gaffney 12:00: [id number] 00 Neuro impaired Neuro/Emot Resolve 2015-08-07 Paula decision-ma ion d 08-01 14:15:00 Eri ibanez 12:00: [id number] 00 Musculoskel requires Musculoske Unknown Paula etal human letal 08-01 [place] assist to 12:00: [id number] leave home 00 Elimination urinary Eliminatio Resolve 2015-08-15 Rubén incontinenc n d 08-06 15:30:00 Que e 14:15: [id number] 00 Gait/Locomo gait PT/OT: Resolve 2015-08-10 Rubén tion assistive Gait/Locom d 08-06 13:10:00 Que problems device otion 14:15: [id number] present 00 Gait/Locomo knowledge/s PT/OT: Resolve 2015-08-10 Rubén tion kill Gait/Locom d 08-06 13:10:00 Que problems deficit: pt otion 14:15: [id number] 00 Gait/Locomo gait PT/OT: Resolve 2015-08-10 Rubén tion deficit Gait/Locom d 08-06 13:10:00 Que problems otion 14:15: [id number] 00 Safety risk for Safety Resolve 2015-08-15 Rubén hospitaliza d 08-09 15:30:00 Que tion 13:10: [id number] 00 Bed transfer PT/OT: Bed Resolve 2015-08-10 Rubén Mobility/Tr deficit: Mobility/T d 08-09 13:10:00 Que ansfer sit/stand ransfer 13:10: [id number] 00 Bed transfer PT/OT: Bed Resolve 2015-08-15 Rubén Mobility/Tr deficit: Mobility/T d 08-14 15:30:00 Que ansfer sit/stand ransfer 15:30: [id number] 00 Gait/Locomo gait PT/OT: Resolve 2015-08-15 Rubén tion assistive Gait/Locom d 08-14 15:30:00 Que problems device otion 15:30: [id number] present 00 Gait/Locomo knowledge/s PT/OT: Resolve 2015-08-15 Rubén tion kill Gait/Locom d 08-14 15:30:00 Que problems deficit: pt otion 15:30: [id number] 00 Gait/Locomo gait PT/OT: Resolve 2015-08-15 Rubén tion deficit Gait/Locom d 08-14 15:30:00 Qeu problems otion 15:30: [id number] 00 Safety risk for Safety Resolve 2015-08-16 Paula hospitaliza d 08-15 16:45:00 [place] tion 12:30: [id number] 00 Bed transfer PT/OT: Bed Resolve 2015-08-16 Rubén Mobility/Tr deficit: Mobility/T d 08-15 16:45:00 Que ansfer sit/stand ransfer 16:45: [id number] 00 Gait/Locomo gait PT/OT: Resolve 2015-08-16 Rubén tion deficit Gait/Locom d 08-15 16:45:00 Que problems otion 16:45: [id number] 00 Safety risk for Safety Resolve 2015-08-24 Rubén hospitaliza d 08-21 15:30:00 Que tion 14:45: [id number] 00 Bed transfer PT/OT: Bed Resolve 2015-08-22 Rubén Mobility/Tr deficit: Mobility/T d 08-21 14:45:00 Que ansfer sit/stand ransfer 14:45: [id number] 00 Gait/Locomo gait PT/OT: Resolve 2015-08-22 Rubén tion assistive Gait/Locom d 08-21 14:45:00 Que problems device otion 14:45: [id number] present 00 Gait/Locomo gait PT/OT: Resolve 2015-08-22 Rubén tion deficit Gait/Locom d 08-21 14:45:00 Que problems otion 14:45: [id number] 00 Bed transfer PT/OT: Bed Resolve 2015-08-24 Rubén Mobility/Tr deficit: Mobility/T d 08-23 15:30:00 Que ansfer sit/stand ransfer 15:30: [id number] 00 Gait/Locomo gait PT/OT: Resolve 2015-08-24 Rubén tion assistive Gait/Locom d 08-23 15:30:00 Que problems device otion 15:30: [id number] present 00 Gait/Locomo gait PT/OT: Resolve 2015-08-24 Rubén tion deficit Gait/Locom d 08-23 15:30:00 Que problems otion 15:30: [id number] 00 Safety risk for Safety Resolve 2015-08-31 [facility] 08-26 15:15:00 S[place] tion 14:45: [id number] 00 Bed transfer PT/OT: Bed Resolve 2015-09-04 Rubén Mobility/Tr deficit: Mobility/T d 08-30 14:25:00 Que ansfer sit/stand ransfer 15:15: [id number] 00 Gait/Locomo gait PT/OT: Resolve 2015-08-31 Rubén tion assistive Gait/Locom d 6 15:15:00 Que problems device otion 15:15: [id number] present 00 Gait/Locomo gait PT/OT: Resolve 2015-08-31 Rubén tion deficit Gait/Locom d 08-30 15:15:00 Que problems otion 15:15: [id number] 00 Respiratory lung sounds Respirator Resolve 2015-10-22 Martina deficit y d 6- 10:30:00 S[place]igen 11:30: [id number] 00 Safety risk for Safety Resolve 2015-09-06 Martina hospitaliza d 6- 16:15:00 Sinnigen tion 11:30: [id number] 00 Gait/Locomo gait PT/OT: Resolve 2015-09-04 Rubén tion assistive Gait/Locom d 09-03 14:25:00 Que problems device otion 14:25: [id number] present 00 Gait/Locomo gait PT/OT: Resolve 2015-09-04 Rubén tion deficit Gait/Locom d 09-03 14:25:00 Que problems otion 14:25: [id number] 00 Bed transfer PT/OT: Bed Resolve 2015-09-06 Rubén Mobility/Tr deficit: Mobility/T d 09-05 16:15:00 Que ansfer sit/stand ransfer 16:15: [id number] 00 Gait/Locomo gait PT/OT: Resolve 2015-09-06 Rubén tion assistive Gait/Locom d 09-05 16:15:00 Que problems device otion 16:15: [id number] present 00 Gait/Locomo gait PT/OT: Resolve 2015-09-06 Rubén tion deficit Gait/Locom d 09-05 16:15:00 Que problems otion 16:15: [id number] 00 Safety risk for Safety Resolve 2015-09-10 Rubén hospitaliza d 09-09 15:15:00 Que tion 15:15: [id number] 00 Bed transfer PT/OT: Bed Resolve 2015-09-10 Rubén Mobility/Tr deficit: Mobility/T d 09-09 15:15:00 Que ansfer sit/stand ransfer 15:15: [id number] 00 Gait/Locomo gait PT/OT: Resolve 2015-09-10 Rubén tion assistive Gait/Locom d 09-09 15:15:00 Que problems device otion 15:15: [id number] present 00 Gait/Locomo gait PT/OT: Resolve 2015-09-10 Rubén tion deficit Gait/Locom d 09-09 15:15:00 Que problems otion 15:15: [id number] 00 Safety risk for Safety Resolve 2015-09-17 Rubén hospitaliza d 09-12 15:15:00 Que tion 14:45: [id number] 00 Bed transfer PT/OT: Bed Resolve 2015-09-17 Rubén Mobility/Tr deficit: Mobility/T d 09-12 15:15:00 Que ansfer sit/stand ransfer 14:45: [id number] 00 Gait/Locomo gait PT/OT: Resolve 2015-09-17 Rubén tion assistive Gait/Locom d 09-12 15:15:00 Que problems device otion 14:45: [id number] present 00 Gait/Locomo gait PT/OT: Resolve 2015-09-17 Rubén tion deficit Gait/Locom d 09-12 15:15:00 Que problems otion 14:45: [id number] 00 Safety risk for Safety Resolve 2015-09-25 Rubén hospitaliza d 09-19 14:15:00 Que tion 14:45: [id number] 00 Bed transfer PT/OT: Bed Resolve 2015-09-20 Rubén Mobility/Tr deficit: Mobility/T d 09-19 14:45:00 Que ansfer sit/stand ransfer 14:45: [id number] 00 Gait/Locomo gait PT/OT: Resolve 2015-09-20 Rubén tion assistive Gait/Locom d 09-19 14:45:00 Que problems device otion 14:45: [id number] present 00 Gait/Locomo gait PT/OT: Resolve 2015-09-20 Rubén tion deficit Gait/Locom d 09-19 14:45:00 Que problems otion 14:45: [id number] 00 Bed transfer PT/OT: Bed Resolve 2015-09-25 Rubén Mobility/Tr deficit: Mobility/T d 09-24 14:15:00 Que ansfer sit/stand ransfer 14:15: [id number] 00 Bed bed PT/OT: Bed Resolve 2015-09-25 Rubén Mobility/Tr mobility Mobility/T d 09-24 14:15:00 Que ansfer deficit ransfer 14:15: [id number] 00 Safety risk for Safety Resolve 2015-09-27 Rubén hospitaliza d 09-26 14:00:00 Que tion 14:00: [id number] 00 Bed transfer PT/OT: Bed Resolve 2015-09-27 Rubén Mobility/Tr deficit: Mobility/T d 09-26 14:00:00 Que ansfer sit/stand ransfer 14:00: [id number] 00 Gait/Locomo gait PT/OT: Resolve 2015-09-27 Rubén tion assistive Gait/Locom d 09-26 14:00:00 Que problems device otion 14:00: [id number] present 00 Gait/Locomo gait PT/OT: Resolve 2015-09-27 Rubén tion deficit Gait/Locom d 09-26 14:00:00 Que problems otion 14:00: [id number] 00 Safety risk for Safety Resolve 2015-10-22 Martina hospitaliza d 09-30 10:30:00 Sinnigen tion 09:30: [id number] 00 Bed transfer PT/OT: Bed Resolve 2015-10-03 Rubén Mobility/Tr deficit: Mobility/T d 10-01 12:45:00 Que ansfer sit/stand ransfer 14:00: [id number] 00 Gait/Locomo gait PT/OT: Resolve 2015-10-02 Rubén tion assistive Gait/Locom d 7-12 14:00:00 Que problems device otion 14:00: [id number] present 00 Gait/Locomo knowledge/s PT/OT: Resolve 2015-10-02 Rubén tion kill Gait/Locom d 10-01 14:00:00 Que problems deficit: pt otion 14:00: [id number] 00 Gait/Locomo gait PT/OT: Resolve 2015-10-02 Rubén tion deficit Gait/Locom d 10-01 14:00:00 Que problems otion 14:00: [id number] 00 Respiratory oxygen Respirator Unknown Paula treatments y 7- [place] in home 10:00: [id number] 00 Respiratory dyspnea Respirator Unknown Paula present y 10-02 [place] 10:00: [id number] 00 Neuro impaired Neuro/Emot Resolve 2015-10-29 Paula decision-ma ion d 7-13 10:00:00 Eri marcelle 10:00: [id number] 00 Neuro memory Neuro/Emot Resolve 2015-11-19 Paula deficit ion d 13 10:00:00 [place] needing 10:00: [id number] supervision 00 Activity ADL Activity Resolve 2016-02-18 Paula assistance d 10-02 09:30:00 Eri required 10:00: [id number] 00 Safety fall risk Safety Resolve 2015-10-22 Paula factor d -13 10:30:00 Eri present 10:00: [id number] Safety can be left Safety Resolve 2015-10-22 Paula alone for d 10-02 10:30:00 Eri only short 10:00: [id number] periods 00 Musculoskel requires Musculoske Resolve 2016-07-14 Paula etal human letal d 10-02 09:45:00 Eri assist to 10:00: [id number] leave home 00 Gait/Locomo gait PT/OT: Resolve 2015-10-03 Rubén tion assistive Gait/Locom d 7- 12:45:00 Que problems device otion 12:45: [id number] present 00 Gait/Locomo knowledge/s PT/OT: Resolve 2016-0 2015-10-03 Rubén tion kill Gait/Locom d 10-02 12:45:00 Que problems deficit: pt otion 12:45: [id number] 00 Gait/Locomo gait PT/OT: Resolve 2015-10-03 Rubén tion deficit Gait/Locom d 10-02 12:45:00 Que problems otion 12:45: [id number] 00 Bed transfer PT/OT: Bed Resolve 2015-10-08 Rubén Mobility/Tr deficit: Mobility/T d 10-07 14:45:00 Que ansfer sit/stand ransfer 14:45: [id number] 00 Gait/Locomo knowledge/s PT/OT: Resolve 2015-10-08 Rubén tion kill Gait/Locom d 10-07 14:45:00 Que problems deficit: pt otion 14:45: [id number] 00 Gait/Locomo gait PT/OT: Resolve 2015-10-08 Rubén tion deficit Gait/Locom d 10-07 14:45:00 Que problems otion 14:45: [id number] 00 Bed transfer PT/OT: Bed Resolve 2015-10-11 Rub[facility] Mobility/Tr deficit: Mobility/T d 10-10 14:30:00 Que ansfer sit/stand ransfer 14:30: [id number] 00 Gait/Locomo gait PT/OT: Resolve 2015-10-11 Rubén tion assistive Gait/Locom d 10-10 14:30:00 Que problems device otion 14:30: [id number] present 00 Gait/Locomo knowledge/s PT/OT: Resolve 2015-10-11 Rubén tion kill Gait/Locom d 10-10 14:30:00 Que problems deficit: pt otion 14:30: [id number] 00 Gait/Locomo gait PT/OT: Resolve 2015-10-11 Rubén tion deficit Gait/Locom d 10-10 14:30:00 Que problems otion 14:30: [id number] 00 Respiratory dyspnea Respirator Unknown Analilia present y 10-14 [place] 09:45: [id number] 00 Safety structural Safety Resolve 2015-10-22 Analilia barriers d 10-14 10:30:00 [place] present 09:45: [id number] 00 Musculoskel transfer Musculoske Resolve 2016-07-14 Analilia etal assistance letal d 10-14 09:45:00 Kiara required 09:45: [id number] 00 Musculoskel requires Musculoske Resolve 2016-07-14 Analilia etal special letal d 10-14 09:45:00 [place] transportat 09:45: [id number] ion 00 Bed transfer PT/OT: Bed Resolve 2015-10-18 Rubén Mobility/Tr deficit: Mobility/T d 10-14 14:00:00 Que ansfer sit/stand ransfer 12:50: [id number] 00 Gait/Locomo gait PT/OT: Resolve 2015-10-15 Rbuén tion assistive Gait/Locom d 10-14 12:50:00 Que problems device otion 12:50: [id number] present 00 Gait/Locomo knowledge/s PT/OT: Resolve 2015-10-15 Rubén tion kill Gait/Locom d 10-14 12:50:00 Que problems deficit: pt otion 12:50: [id number] 00 Gait/Locomo gait PT/OT: Resolve 2015-10-15 Rubén tion deficit Gait/Locom d 10-14 12:50:00 Que problems otion 12:50: [id number] 00 Gait/Locomo gait PT/OT: Resolve 2015-10-18 Rubén tion assistive Gait/Locom d 10-17 14:00:00 Que problems device otion 14:00: [id number] present 00 Gait/Locomo knowledge/s PT/OT: Resolve 2015-10-18 Rubén tion kill Gait/Locom d 10-17 14:00:00 Que problems deficit: pt otion 14:00: [id number] 00 Gait/Locomo gait PT/OT: Resolve 2015-10-18 Rubén tion deficit Gait/Locom d 10-17 14:00:00 Que problems otion 14:00: [id number] 00 Respiratory CPAP Respirator Unknown [facility] treatments y 10-21 [place] in home 10:30: [id number] 00 Endo/Nito glucose Endo/Nito Resolve 2015-11-19 [facility] tolerance d 10-21 10:00:00 Greg problem 10:30: [id number] 00 Elimination urinary Eliminatio Resolve 2015-11-23 [facility] incontinenc n d 10-21 08:55:00 Greg e 10:30: [id number] 00 Elimination constipatio Eliminatio Resolve 2015-11-23 [facility] n n d 10-21 08:55:00 Greg 10:30: [id number] 00 Safety sanitation Safety Resolve 2015-10-22 [facility] hazards d 10-21 10:30:00 Greg present 10:30: [id number] 00 Safety risk for Safety Resolve 2015-10-29 [facility] hospitaliza d 10-22 10:00:00 Que tion 13:15: [id number] 00 Gait/Locomo gait PT/OT: Resolve 2015-10-23 Rubén tion assistive Gait/Locom d 10-22 13:15:00 Que problems device otion 13:15: [id number] present 00 Gait/Locomo knowledge/s PT/OT: Resolve 2015-10-23 Rubén tion kill Gait/Locom d 10-22 13:15:00 Que problems deficit: pt otion 13:15: [id number] 00 Gait/Locomo gait PT/OT: Resolve 2015-10-23 Rubén tion deficit Gait/Locom d 10-22 13:15:00 Que problems otion 13:15: [id number] 00 Gait/Locomo gait PT/OT: Resolve 2015-10-26 Rubén tion assistive Gait/Locom d 10-25 12:15:00 Que problems device otion 12:15: [id number] present 00 Gait/Locomo knowledge/s PT/OT: Resolve 2015-10-26 Rubén tion kill Gait/Locom d 10-25 12:15:00 Que problems deficit: pt otion 12:15: [id number] 00 Gait/Locomo gait PT/OT: Resolve 2015-10-26 Rubén tion deficit Gait/Locom d 10-25 12:15:00 Que problems otion 12:15: [id number] 00 Pain frequent Pain Mgmt Unknown [facility] pain 10-28 Greg 10:00: [id number] 00 Respiratory oxygen Respirator Unknown [facility] treatments y 10-28 [place] in home 10:00: [id number] 00 Neuro seizures Neuro/Emot Resolve 2015-2015-10-29 [facility] ion d 10-28 10:00:00 [place] 10:00: [id number] 00 Safety structural Safety Resolve 2015-2015-10-29 [facility] barriers d 10-28 10:00:00 [place] present 10:00: [id number] 00 Safety sanitation Safety Resolve 2015-10-29 [facility] hazards d 10-28 10:00:00 [place] present 10:00: [id number] 00 Safety fall risk Safety Resolve 2015-10-29 [facility] factor d 10-28 10:00:00 Greg present 10:00: [id number] 00 Safety can be left Safety Resolve 2015-10-29 [facility] alone for d 10-28 10:00:00 Greg only short 10:00: [id number] periods 00 Safety risk for Safety Resolve 2015-11-19 [facility] hospitaliza d 10-29 10:00:00 Que tion 13:30: [id number] 00 Gait/Locomo gait PT/OT: Resolve 2015-10-30 Rubén tion assistive Gait/Locom d 10-29 13:30:00 Que problems device otion 13:30: [id number] present 00 Gait/Locomo knowledge/s PT/OT: Resolve 2015-10-30 Rubén tion kill Gait/Locom d 10-29 13:30:00 Que problems deficit: pt otion 13:30: [id number] 00 Gait/Locomo gait PT/OT: Resolve 2015-10-30 Rubén tion deficit Gait/Locom d 10-29 13:30:00 Que problems otion 13:30: [id number] 00 Gait/Locomo gait PT/OT: Resolve 2015-11-02 Rubén tion assistive Gait/Locom d 11-01 13:15:00 Que problems device otion 13:15: [id number] present 00 Gait/Locomo knowledge/s PT/OT: Resolve 2015-2015-11-02 Rubén tion kill Gait/Locom d 11-01 13:15:00 Que problems deficit: pt otion 13:15: [id number] 00 Gait/Locomo gait PT/OT: Resolve 2015-11-02 Rubén tion deficit Gait/Locom d 11-01 13:15:00 Que problems otion 13:15: [id number] 00 Respiratory lung sounds Respirator Resolve 2015-2016-02-25 Analilia deficit y d 8 09:35:00 [place] 16:00: [id number] 00 Elimination urinary Eliminatio Resolve 2015-11-23 Analilia frequency n d 11-04 08:55:00 [place] 16:00: [id number] 00 Safety fall risk Safety Resolve 2015-11-19 Analilia factor d 815 10:00:00 [place] present 16:00: [id number] 00 Gait/Locomo gait PT/OT: Resolve 2015-11-06 Rubén tion assistive Gait/Locom d 11-05 14:05:00 Que problems device otion 14:05: [id number] present 00 Gait/Locomo knowledge/s PT/OT: Resolve 2015-11-06 Rubén tion kill Gait/Locom d 11-05 14:05:00 Que problems deficit: pt otion 14:05: [id number] 00 Gait/Locomo gait PT/OT: Resolve 2015-11-06 Rubén tion deficit Gait/Locom d 11-05 14:05:00 Que problems otion 14:05: [id number] 00 Endo/Nito insulin Endo/Nito Unknown [facility] admn 11-18 [place] dependence 10:00: [id number] 00 Endo/Nito glucose Endo/Nito Resolve 2017-03-24 [facility] testing d 11-18 14:32:00 [place] dependence 10:00: [id number] 00 Neuro impaired Neuro/Emot Resolve 2016-01-14 [facility] decision-ma ion d 11-18 09:45:00 Greg marcelle 10:00: [id number] 00 Neuro seizures Neuro/Emot Resolve 2015-11-19 [facility] ion d 11-18 10:00:00 [place] 10:00: [id number] 00 Safety sanitation Safety Resolve 2015-12-24 [facility] hazards d 11-18 09:30:00 [place] present 10:00: [id number] 00 Neuro memory Neuro/Emot Unknown [facility] deficit ion 11-18 [place] needing 12:15: [id number] supervision 00 Safety risk for Safety Unknown [facility] hospitaliza 11-18 [place] tion 12:15: [id number] 00 Neuro seizures Neuro/Emot Resolve 2015-12-10 Paula ion d 11-22 09:45:00 Eri 08:55: [id number] 00 Safety risk for Safety Resolve 2015-12-10 Paula hospitaliza d 11-22 09:45:00 [place] tion 08:55: [id number] 00 Infection s/s of Infection Resolve 2017-03-24 [...] 11-27 14:00:00 Que problems device otion 14:15: [id number] present 00 Gait/Locomo knowledge/s PT/OT: Resolve 2015-12-05 Rubén tion kill Gait/Locom d 11-27 14:00:00 Que problems deficit: pt otion 14:15: [id number] 00 Gait/Locomo gait PT/OT: Resolve 2015-12-05 Rubén tion deficit Gait/Locom d 11-27 14:00:00 Que problems otion 14:15: [id number] 00 Sensory impaired Sensory Resolve 2016-09-15 Paula vision d 12-02 09:00:00 [place] 11:06: [id number] 00 Elimination recurring Eliminatio Resolve 2015-12-24 Paula UTI n d 12-02 09:30:00 [place] 11:06: [id number] 00 Safety fall risk Safety Resolve 2015-12-10 Paula factor d 12-02 09:45:00 [place] present 11:06: [id number] 00 Bed transfer PT/OT: Bed Resolve 2015-12-05 Rub[facility] Mobility/Tr deficit: Mobility/T d 12-02 14:00:00 Que ansfer sit/stand ransfer 15:00: [id number] 00 Bed bed PT/OT: Bed Resolve 2015-12-05 Rubén Mobility/Tr mobility Mobility/T d 12-02 14:00:00 Que ansfer deficit ransfer 15:00: [id number] 00 Endo/Nito glucose Endo/Nito Resolve 2015-12-10 [facility] tolerance d 12-09 09:45:00 [place] problem 09:45: [id number] 00 Elimination constipatio Eliminatio Resolve 2016-03-03 [facility] n n d 12-09 10:10:00 Greg 09:45: [id number] 00 Elimination urinary Eliminatio Resolve 2015-12-17 [facility] incontinenc n d 12-09 09:30:00 [place] e 09:45: [id number] 00 Safety structural Safety Resolve 2015-12-24 [facility] barriers d 12-09 09:30:00 [place] present 09:45: [id number] 00 Safety risk for Safety Resolve 2015-12-24 [facility] hospitaliza d 12-10 09:30:00 [place] tion 11:20: [id number] 00 Bed transfer PT/OT: Bed Resolve 2016-01-04 Rub[facility] Mobility/Tr deficit: Mobility/T d 12-12 15:15:00 Que ansfer sit/stand ransfer 12:45: [id number] 00 Gait/Locomo gait PT/OT: Resolve 2015-12-21 Rubén tion assistive Gait/Locom d 12-12 14:30:00 Que problems device otion 12:45: [id number] present 00 Gait/Locomo knowledge/s PT/OT: Resolve 2015-12-21 Rubén tion kill Gait/Locom d 12-12 14:30:00 Que problems deficit: pt otion 12:45: [id number] 00 Gait/Locomo gait PT/OT: Resolve 2015-12-21 Rubén tion deficit Gait/Locom d 12-12 14:30:00 Que problems otion 12:45: [id number] 00 Endo/Nito glucose Endo/Nito Resolve 2016-01-14 [facility] tolerance d 12-16 09:45:00 [place] problem 09:30: [id number] 00 Sensory impaired Sensory Resolve 2016-09-15 [facility] hearing d 12-16 09:00:00 [place] 09:30: [id number] 00 Elimination knowledge/s Eliminatio Resolve 2015-12-17 [facility] kill n d 12-16 09:30:00 [place] deficit: pt 09:30: [id number] 00 Elimination knowledge/s Eliminatio Resolve 2015-12-17 [facility] kill n d 12-16 09:30:00 [place] deficit: cg 09:30: [id number] 00 Safety fall risk Safety Resolve 2015-12-24 [facility] factor d 12-16 09:30:00 Greg present 09:30: [id number] 00 Elimination urinary Eliminatio Resolve 2015-032016-01-14 [facility] incontinenc n d 0 09:45:00 [place] e 09:30: [id number] 00 Elimination urinary Eliminatio Resolve 2015-032016-01-14 [facility] frequency n d 0 09:45:00 [place] 09:30: [id number] 00 Elimination knowledge/s Eliminatio Resolve 2015-032015-12-24 [facility] kill n d 0 09:30:00 [place] deficit: pt 09:30: [id number] 00 Safety risk for Safety Resolve 2015-032016-01-08 [facility] hospitaliza d 0 11:20:00 Que tion 14:30: [id number] 00 Gait/Locomo gait PT/OT: Resolve 2015-032016-01-04 Rubén tion assistive Gait/Locom d 0-04 15:15:00 Que problems device otion 14:30: [id number] present 00 Gait/Locomo knowledge/s PT/OT: Resolve 2015-032016-01-04 Rubén tion kill Gait/Locom d 0-04 15:15:00 Que problems deficit: pt otion 14:30: [id number] 00 Gait/Locomo gait PT/OT: Resolve 2015-032016-01-04 Rubén tion deficit Gait/Locom d 0-04 15:15:00 Que problems otion 14:30: [id number] 00 Safety can be left Safety Resolve 2015-032016-02-04 Paula alone for d 0-07 09:45:00 Eri only short 08:00: [id number] periods 00 Endo/Nito diabetic Endo/Nito Resolve 2015-032016-01-14 Paula foot care d 0-13 09:45:00 Eri 12:00: [id number] 00 Neuro confusion Neuro/Emot Resolve 2015-032016-01-14 Paula present ion d 0-13 09:45:00 Eri 12:00: [id number] 00 Neuro anxiety Neuro/Emot Resolve 2015-032016-01-14 Paula present ion d 0-13 09:45:00 [place] 12:00: [id number] 00 Neuro seizures Neuro/Emot Resolve 2015-032016-01-08 Paula ion d 0-13 11:20:00 [place] 12:00: [id number] 00 Safety fall risk Safety Resolve 2015-032016-01-08 Paula factor d 0-13 11:20:00 Eri present 12:00: [id number] 00 Medication potential Meds Resolve 2015-032016-01-08 Paula clinically d 0-13 11:20:00 [place] significant 12:00: [id number] medication 00 issue Safety structural Safety Resolve 2015-032016-01-08 [facility] barriers d 0-18 11:20:00 [place] present 11:20: [id number] 00 Safety sanitation Safety Resolve 2015-032016-01-08 [facility] hazards d 0-18 11:20:00 [place] present 11:20: [id number] 00 Safety risk for Safety Resolve 2015-032016-01-14 [facility] hospitaliza d 0-20 09:45:00 Que tion 14:15: [id number] 00 Bed transfer PT/OT: Bed Resolve 2015-032016-01-10 Rub[facility] Mobility/Tr deficit: Mobility/T d 0-20 14:15:00 Que ansfer sit/stand ransfer 14:15: [id number] 00 Gait/Locomo gait PT/OT: Resolve 2015-032016-01-16 Rubén tion assistive Gait/Locom d 0-20 16:00:00 Que problems device otion 14:15: [id number] present 00 Gait/Locomo knowledge/s PT/OT: Resolve 2015-032016-01-16 Rubén tion kill Gait/Locom d 0-20 16:00:00 Que problems deficit: pt otion 14:15: [id number] 00 Gait/Locomo gait PT/OT: Resolve 2015-032016-01-16 Rubén tion deficit Gait/Locom d 0-20 16:00:00 Que problems otion 14:15: [id number] 00 Safety structural Safety Resolve 2015-032016-01-14 Anal[place] barriers d 0-21 09:45:00 [place] present 10:08: [id number] 00 Safety fall risk Safety Resolve 2015-032016-01-14 Analilia factor d 0-21 09:45:00 [place] present 10:08: [id number] 00 Bed transfer PT/OT: Bed Resolve 2015-032016-01-16 Rub[facility] Mobility/Tr deficit: Mobility/T d 0-21 16:00:00 Que ansfer sit/stand ransfer 13:45: [id number] 00 Endo/Nito knowledge/s Endo/Nito Resolve 2015-032016-01-14 [facility] kill d 0-24 09:45:00 Greg deficit: pt 09:45: [id number] 00 Endo/Nito knowledge/s Endo/Nito Resolve 2015-032016-01-14 [facility] kill d 0-24 09:45:00 [place] deficit: cg 09:45: [id number] 00 Endo/Nito knowledge/s Endo/Nito Resolve 2015-032016-01-14 [facility] kill d 0-24 09:45:00 Greg deficit 09:45: [id number] hypo/hyperg 00 lycemia: pt Endo/Nito knowledge/s Endo/Nito Resolve 2015-032016-01-14 [facility] kill d 0-24 09:45:00 Greg deficit 09:45: [id number] hypo/hyperg 00 lycemia: cg Elimination diarrhea Eliminatio Resolve 2015-032016-03-03 [facility] n d 0 10:10:00 [place] 09:45: [id number] 00 Neuro depressive Neuro/Emot Resolve 2015-032016-01-14 [facility] feelings ion d 0 09:45:00 [place] present 09:45: [id number] 00 Safety sanitation Safety Resolve 2015-032016-01-14 [facility] hazards d 0 09:45:00 [place] present 09:45: [id number] 00 Safety risk for Safety Resolve 2015-032016-01-21 [facility] hospitaliza d 0 09:30:00 [place] tion 13:45: RN 00 Bed transfer PT/OT: Bed Resolve 2015-032016-01-17 [facility] Mobility/Tr deficit: Mobility/T d 0 14:00:00 Que ansfer sit/stand ransfer 14:00: [id number] 00 Gait/Locomo gait PT/OT: Resolve 2015-032016-01-17 Rubén tion assistive Gait/Locom d 0 14:00:00 Que problems device otion 14:00: [id number] present 00 Gait/Locomo knowledge/s PT/OT: Resolve 2015-032016-01-17 Rubén tion kill Gait/Locom d 0 14:00:00 Que problems deficit: pt otion 14:00: [id number] 00 Gait/Locomo gait PT/OT: Resolve 2015-032016-01-17 Rubén tion deficit Gait/Locom d 0 14:00:00 Que problems otion 14:00: [id number] 00 Endo/Nito glucose Endo/Nito Resolve 2015-032016-01-21 [facility] tolerance d 0 09:30:00 Greg problem 09:30: [id number] 00 Endo/Nito knowledge/s Endo/Nito Resolve 2015-032016-01-21 [facility] kill d 0-31 09:30:00 [place] deficit: pt 09:30: [id number] 00 Endo/Nito knowledge/s Endo/Nito Resolve 2015-032016-01-21 [facility] kill d 0-31 09:30:00 Greg deficit 09:30: [id number] hypo/hyperg 00 lycemia: pt Endo/Nito knowledge/s Endo/Nito Resolve 2015-032016-01-21 [facility] kill d 0- 09:30:00 [place] deficit 09:30: [id number] hypo/hyperg 00 lycemia: cg Neuro memory Neuro/Emot Resolve 2015-032016-02-04 [facility] deficit ion d 0- 09:45:00 Greg needing 09:30: [id number] supervision 00 Neuro impaired Neuro/Emot Resolve 2015-032016-01-21 [facility] decision-ma ion d 0- 09:30:00 [place] marcelle 09:30: [id number] 00 Safety structural Safety Resolve 2015-032016-01-21 [facility] barriers d 0-31 09:30:00 Greg present 09:30: [id number] 00 Safety sanitation Safety Resolve 2015-032016-01-21 [facility] hazards d 0-31 09:30:00 Greg present 09:30: [id number] 00 Safety fall risk Safety Resolve 2015-032016-01-21 [facility] factor d 0-31 09:30:00 Greg present 09:30: [id number] 00 Safety risk for Safety Resolve 2015-032016-02-04 [facility] hospitaliza d 03-23 09:45:00 Que tion 14:30: [id number] 00 Bed bed PT/OT: Bed Resolve 2015-032016-01-22 Rub[facility] Mobility/Tr mobility Mobility/T d 03-23 14:30:00 Que ansfer deficit ransfer 14:30: [id number] 00 Bed transfer PT/OT: Bed Resolve 2015-032016-01-22 Rub[facility] Mobility/Tr deficit: Mobility/T d 03-23 14:30:00 Que poefer sit/stand ransfer 14:30: [id number] 00 Gait/Locomo gait PT/OT: Resolve 2015-032016-01-22 Rubén tion assistive Gait/Locom d 03-23 14:30:00 Que problems device otion 14:30: [id number] present 00 Gait/Locomo knowledge/s PT/OT: Resolve 2015-032016-01-22 Rubén tion kill Gait/Locom d 03-23 14:30:00 Que problems deficit: pt otion 14:30: [id number] 00 Gait/Locomo gait PT/OT: Resolve 2015-032016-01-22 Rubén tion deficit Gait/Locom d 03-23 14:30:00 Que problems otion 14:30: [id number] 00 Bed transfer PT/OT: Bed Resolve 2015-032016-01-28 Rub[facility] Mobility/Tr deficit: Mobility/T d 03-25 14:15:00 Que ansfer sit/stand ransfer 14:15: [id number] 00 Gait/Locomo gait PT/OT: Resolve 2015-032016-01-28 Rubén tion assistive Gait/Locom d 03-25 14:15:00 Que problems device otion 14:15: [id number] present 00 Gait/Locomo knowledge/s PT/OT: Resolve 2015-032016-01-28 Rubén tion kill Gait/Locom d 03-25 14:15:00 Que problems deficit: pt otion 14:15: [id number] 00 Gait/Locomo gait PT/OT: Resolve 2015-032016-01-28 Rubén tion deficit Gait/Locom d 03-25 14:15:00 Que problems otion 14:15: [id number] 00 Bed transfer PT/OT: Bed Resolve 2015-032016-04-07 Rub[facility] Mobility/Tr deficit: Mobility/T d 04-01 11:15:00 Que ansfer sit/stand ransfer 13:45: [id number] 00 Gait/Locomo gait PT/OT: Resolve 2015-032016-02-15 Rubén tion assistive Gait/Locom d 04-01 09:45:00 Que problems device otion 13:45: [id number] present 00 Gait/Locomo gait PT/OT: Resolve 2015-032016-02-15 Rubén tion deficit Gait/Locom d 04-01 09:45:00 Que problems otion 13:45: [id number] 00 Elimination urinary Eliminatio Resolve 2015-032016-02-04 Sonia [...] Resolve 2015-032016-02-04 [place] tolerance d 04-05 09:45:00 [place] problem 09:45: [id number] 00 Endo/Nito knowledge/s Endo/Nito Resolve 2015-032016-02-04 [facility] kill d 04-05 09:45:00 [place] deficit: pt 09:45: [id number] 00 Endo/Nito knowledge/s Endo/Nito Resolve 2015-032016-02-04 [facility] kill d 04-05 09:45:00 [place] deficit: cg 09:45: [id number] 00 Elimination recurring Eliminatio Resolve 2015-032016-04-07 [facility] UTI n d 04-05 10:40:00 Greg 09:45: [id number] 00 Elimination urinary Eliminatio Resolve 2015-032016-02-04 [facility] frequency n d 04-05 09:45:00 Greg 09:45: [id number] 00 Neuro impaired Neuro/Emot Resolve 2015-032016-02-18 [facility] decision-ma ion d 04-05 09:30:00 [place] marcelle 09:45: [id number] 00 Safety structural Safety Resolve 2015-032016-02-04 [facility] barriers d 04-05 09:45:00 [place] present 09:45: [id number] 00 Safety sanitation Safety Resolve 2015-032016-02-04 [facility] hazards d 04-05 09:45:00 [place] present 09:45: [id number] 00 Safety risk for Safety Resolve 2015-032016-02-18 [...] Resolve 2015-032016-02-18 [facility] tolerance d 04-19 09:30:00 [place] problem 09:30: [id number] 00 Endo/Nito knowledge/s Endo/Nito Resolve 2015-032016-02-18 [facility] kill d 04-19 09:30:00 [place] deficit: pt 09:30: [id number] 00 Endo/Nito knowledge/s Endo/Nito Resolve 2015-032016-02-18 [facility] kill d 04-19 09:30:00 Greg deficit: cg 09:30: [id number] 00 Neuro anxiety Neuro/Emot Resolve 2015-032016-02-18 [facility] present ion d 04-19 09:30:00 Greg 09:30: [id number] 00 Neuro depressive Neuro/Emot Resolve 2015-032016-02-18 [facility] feelings ion d 04-19 09:30:00 Greg present 09:30: [id number] 00 Safety structural Safety Resolve 2015-032016-02-18 [facility] barriers d 04-19 09:30:00 Greg present 09:30: [id number] 00 Safety sanitation Safety Resolve 2015-032016-02-18 [facility] hazards d 04-19 09:30:00 [place] present 09:30: [id number] 00 Safety fall risk Safety Resolve 2015-032016-02-18 [facility] factor d 04-19 09:30:00 Greg present 09:30: [id number] 00 Elimination urinary Eliminatio Resolve 2015-032016-03-03 Sonia [...] 2015-032016-12-09 [facility] n ular d 05-04 12:18:00 [place] 10:10: [id number] 00 Endo/Nito glucose Endo/Nito Resolve 2015-032016-05-19 [facility] tolerance d 05-04 09:45:00 Greg problem 10:10: [id number] 00 Endo/Nito knowledge/s Endo/Nito Resolve 2015-032016-05-19 [facility] kill d 05-04 09:45:00 Greg deficit: pt 10:10: [id number] 00 Endo/Nito knowledge/s Endo/Nito Resolve 2015-032016-05-19 [facility] kill d 05-04 09:45:00 Greg deficit: cg 10:10: [id number] 00 Endo/Nito knowledge/s Endo/Nito Resolve 2015-032016-05-19 [facility] kill d 2-12 09:45:00 [place] deficit 10:10: [id number] hypo/hyperg 00 lycemia: pt Endo/Nito knowledge/s Endo/Nito Resolve 2015-032016-05-19 [facility] kill d 2-12 09:45:00 Greg deficit 10:10: [id number] hypo/hyperg 00 lycemia: cg Nutrition knowledge/s Nutrition Resolve 2015-032016-03-25 [facility] kill d 2- 12:10:00 [place] deficit: pt 10:10: [id number] 00 Nutrition knowledge/s Nutrition Resolve 2015-032016-03-25 [facility] kill d 2- 12:10:00 Greg deficit: cg 10:10: [id number] 00 Elimination urinary Eliminatio Resolve 2015-032016-03-03 [facility] urgency n d 2- 10:10:00 [place] 10:10: [id number] 00 Elimination urinary Eliminatio Resolve 2015-032016-03-03 [place] frequency n d 05-04 10:10:00 Greg 10:10: [id number] 00 Safety risk for Safety Resolve 2015-032016-03-18 [...] RN 00 Elimination urinary Eliminatio Resolve 2015-032016-04-07 [place] incontinenc n d 2-19 10:40:00 [place] e 12:40: RN 00 Neuro depressive Neuro/Emot Resolve 2015-032016-05-19 [place] feelings ion d 05-19 09:45:00 Greg present 09:00: [id number] 00 Neuro impaired Neuro/Emot Resolve 2015-032016-06-16 [place] decision-ma ion d 05-19 10:31:00 [place] marcelle 09:00: [id number] 00 Neuro seizures Neuro/Emot Resolve 2015-032016-03-18 [place] ion d 05-19 09:00:00 [place] 09:00: [id number] 00 Safety structural Safety Resolve 2015-032016-03-18 [place] barriers d 05-19 09:00:00 [place] present 09:00: [id number] 00 Safety sanitation Safety Resolve 2015-032016-03-18 [place] hazards d 05-19 09:00:00 [place] present 09:00: [id number] 00 Safety fall risk Safety Resolve 2015-032016-03-18 [place] factor d 05-19 09:00:00 [place] present 09:00: [id number] 00 Respiratory oxygen Respirator Unknown Ashley treatments y 1-10 [place] in home 14:00: [id number] 00 Respiratory dyspnea Respirator Unknown Ashley present y 1-10 [place] 14:00: [id number] 00 Respiratory lung sounds Respirator Resolve 2016-04-07 [place] deficit y d 1-10 10:40:00 [place] 14:00: [id number] 00 Elimination bowel Eliminatio Resolve 2016-07-28 [place] incontinenc n d 1-10 10:09:00 Vinnie e 14:00: [id number] 00 Safety can be left Safety Resolve 2016-05-19 Ashley alone for d 1-10 09:45:00 Vinnie only short 14:00: [id number] periods 00 Respiratory CPAP Respirator Unknown Cherrise treatments y 1-16 [place] in home 10:40: [id number] 00 Nutrition nutritional Nutrition Resolve 2016-05-19 Cherrise restriction d 1-16 09:45:00 Greg s 10:40: [id number] 00 Nutrition knowledge/s Nutrition Resolve 2016-05-19 Cherrise kill d - 09:45:00 Greg deficit: pt 10:40: [id number] 00 Nutrition knowledge/s Nutrition Resolve 2016-05-19 Cherrise kill d 1-16 09:45:00 [place] deficit: cg 10:40: [id number] 00 Safety structural Safety Resolve 2016-04-07 Cherrise barriers d 1-16 10:40:00 [place] present 10:40: [id number] 00 Safety sanitation Safety Resolve 2016-04-07 Cherrise hazards d -16 10:40:00 Greg present 10:40: [id number] 00 Safety fall risk Safety Resolve 2016-04-07 Cherrise factor d - 11:15:00 Greg present 10:40: [id number] 00 Safety risk for Safety Resolve 2016-04-07 [facility] hospitaliza d 16 11:15:00 Greg tion 10:40: [id number] 00 Bed transfer PT/OT: Bed Resolve 2016-04-07 Rubén Mobility/Tr deficit: Mobility/T d 16 11:15:00 Que mack toilet/comm ransfer 11:15: [id number] ode 00 Bed transfer PT/OT: Bed Resolve 2016-04-07 Rubén Mobility/Tr deficit: Mobility/T d 16 11:15:00 Que mack shower/tub ransfer 11:15: [id number] 00 Bed transfer PT/OT: Bed Resolve 2016-04-07 Rubén Mobility/Tr deficit: Mobility/T d 04-07 11:15:00 Que mack vehicle ransfer 11:15: [id number] 00 Bed bed PT/OT: Bed Resolve 2016-04-07 Rubén Mobility/Tr mobility Mobility/T d 16 11:15:00 Que ansfer deficit ransfer 11:15: [id number] 00 Gait/Locomo knowledge/s PT/OT: Resolve 2016-04-07 Rubén tion kill Gait/Locom d 16 11:15:00 Que problems deficit: pt otion 11:15: [id number] 00 Gait/Locomo gait PT/OT: Resolve 2016-04-07 Rubén tion deficit Gait/Locom d 04-07 11:15:00 Que problems otion 11:15: [id number] 00 Gait/Locomo gait PT/OT: Resolve 2016-04-15 Rubén tion assistive Gait/Locom d 04-07 13:45:00 Que problems device otion 11:15: [id number] present 00 Respiratory dyspnea Respirator Unknown Ashley present y 04-15 Vinnie 11:00: [id number] 00 Respiratory oxygen Respirator Unknown Ashley treatments y 04-15 Vinnie in home 11:00: [id number] 00 Integument skin Integument Resolve 2016-12-09 Ashley integrity d 04-15 12:18:00 Vinnie risk 11:00: [id number] 00 Elimination urinary Eliminatio Resolve 2016-05-19 Ashley incontinenc n d 04-15 09:45:00 Vinnie e 11:00: [id number] 00 Safety risk for Safety Resolve 2016-04-21 [facility] hospital[facility] d 04-15 09:30:00 Que tion 13:45: [id number] 00 Gait/Locomo knowledge/s PT/OT: Resolve 2016-04-18 Rubén tion kill Gait/Locom d 04-15 16:00:00 Que problems deficit: pt otion 13:45: [id number] 00 Gait/Locomo gait PT/OT: Resolve 2016-04-15 Rubén tion deficit Gait/Locom d 04-15 13:45:00 Que problems otion 13:45: [id number] 00 Gait/Locomo gait PT/OT: Resolve 2016-04-18 Rubén tion assistive Gait/Locom d 04-18 16:00:00 Que problems device otion 16:00: [id number] present 00 Gait/Locomo gait PT/OT: Resolve 2016-04-18 Rubén tion deficit Gait/Locom d 04-18 16:00:00 Que problems otion 16:00: [id number] 00 Respiratory CPAP Respirator Unknown Cherrise treatments y 04-21 [place] in home 09:30: [id number] 00 Elimination urinary Eliminatio Resolve 2016-05-19 Cherrise frequency n d 04-21 09:45:00 [place] 09:30: [id number] 00 Elimination recurring Eliminatio Resolve 2016-05-19 Cherrise UTI n d 04-21 09:45:00 [place] 09:30: [id number] 00 Elimination knowledge/s Eliminatio Resolve 2016-04-21 Cherrise kill n d 04-21 09:30:00 Greg deficit: pt 09:30: [id number] 00 Elimination knowledge/s Eliminatio Resolve 2016-04-21 Cherrise kill n d 04-21 09:30:00 Greg deficit: cg 09:30: [id number] 00 Safety sanitation Safety Resolve 2016-04-21 Cherrise hazards d 04-21 09:30:00 Greg present 09:30: [id number] 00 Safety fall risk Safety Resolve 2016-04-21 Cherrise factor d 04-21 09:30:00 Greg present 09:30: [id number] 00 Safety risk for Safety Resolve 2016-05-05 [facility] hospitaliza d 04-22 10:00:00 Que tion 13:45: [id number] 00 Gait/Locomo gait PT/OT: Resolve 2016-04-22 Rubén tion assistive Gait/Locom d 04-22 13:45:00 Que problems device otion 13:45: [id number] present 00 Gait/Locomo knowledge/s PT/OT: Resolve 2016-04-29 Rubén tion kill Gait/Locom d 04-22 16:00:00 Que problems deficit: pt otion 13:45: [id number] 00 Gait/Locomo gait PT/OT: Resolve 2016-04-22 Rubén tion deficit Gait/Locom d 04-22 13:45:00 Que problems otion 13:45: [id number] 00 Gait/Locomo gait PT/OT: Resolve 2016-04-29 Rubén tion assistive Gait/Locom d 04-25 16:00:00 Que problems device otion 16:00: [id number] present 00 Gait/Locomo gait PT/OT: Resolve 2016-04-29 Rubén tion deficit Gait/Locom d 2-03 16:00:00 Que problems otion 16:00: [id number] 00 Gait/Locomo gait PT/OT: Resolve 2016-05-02 Rubén tion assistive Gait/Locom d 2-10 16:40:00 Que problems device otion 16:40: [id number] present 00 Gait/Locomo gait PT/OT: Resolve 2016-05-02 Rubén tion deficit Gait/Locom d 2-10 16:40:00 Que problems otion 16:40: [id number] 00 Safety sanitation Safety Resolve 2016-06-16 Cherrise hazards d 2-13 10:31:00 Greg present 10:00: [id number] 00 Safety fall risk Safety Resolve 2016-05-05 Cherrise factor d 2-13 10:00:00 Greg present 10:00: [id number] 00 Safety risk for Safety Unknown Rub[facility] hospitaliza 2- Que tion 17:00: [id number] 00 Gait/Locomo gait PT/OT: Resolve 2016-05-05 Rubén tion assistive Gait/Locom d 2-13 17:00:00 Que problems device otion 17:00: [id number] present 00 Gait/Locomo gait PT/OT: Resolve 2016-05-05 Rubén tion deficit Gait/Locom d 2-13 17:00:00 Que problems otion 17:00: [id number] 00 Respiratory nebulizer Respirator Resolve 2016-12-09 Ashley treatment y d 2- 12:18:00 Vinnie in home 10:00: [id number] 00 Safety risk for Safety Resolve 2016-05-19 [facility] hospitaliza d 2-21 09:45:00 Que tion 16:00: [id number] 00 Gait/Locomo gait PT/OT: Resolve 2016-05-13 Rubén tion assistive Gait/Locom d 2-21 16:00:00 Que problems device otion 16:00: [id number] present 00 Gait/Locomo gait PT/OT: Resolve 2016-05-13 Rubén tion deficit Gait/Locom d 2-21 16:00:00 Que problems otion 16:00: [id number] 00 Gait/Locomo gait PT/OT: Resolve 2016-05-15 Rubén tion assistive Gait/Locom d 05-15 13:00:00 Que problems device otion 13:00: [id number] present 00 Gait/Locomo gait PT/OT: Resolve 2016-05-15 Rubén tion deficit Gait/Locom d 05-15 13:00:00 Que problems otion 13:00: [id number] 00 Safety fall risk Safety Resolve 2016-05-19 Cherrise factor d 05-19 09:45:00 [place] present 09:45: [id number] 00 Gait/Locomo gait PT/OT: Resolve 2016-05-19 Rubén tion assistive Gait/Locom d 05-19 14:30:00 Que problems device otion 14:30: [id number] present 00 Gait/Locomo gait PT/OT: Resolve 2016-05-19 Rubén tion deficit Gait/Locom d 05-19 14:30:00 Que problems otion 14:30: [id number] 00 Test/Treatm tests Test/Injec Active Ashley ent ordered t/Sebastien 05-21 Vinnie [id number] Safety risk for Safety Resolve 2016-06-16 [facility] hospitaliza d 05-21 10:31:00 Quinn tion 14:00: [id number] 00 Gait/Locomo gait PT/OT: Resolve 2016-05-29 Rubén tion assistive Gait/Locom d 05-22 13:30:00 Que problems device otion 12:35: [id number] present 00 Gait/Locomo gait PT/OT: Resolve 2016-05-29 Rubén tion deficit Gait/Locom d 05-22 13:30:00 Que problems otion 12:35: [id number] 00 Pain frequent Pain Mgmt Unknown Ashley pain 05-27 Vinnie 10:30: [id number] 00 Nutrition nutritional Nutrition Resolve 2016-07-14 Ashley restriction d 05-27 09:45:00 Vinnie williamson 10:30: [id number] 00 Elimination urinary Eliminatio Resolve 2016-12-09 Ashley incontinenc n d 05-27 12:18:00 Vinnie gaffney 10:30: [id number] 00 Elimination urinary Eliminatio Resolve 2016-12-09 Ashley frequency n d 05-27 12:18:00 Vinnie 10:30: [id number] 00 Endo/Nito glucose Endo/Nito Resolve 2016-12-09 Cherrise tolerance d 3-13 12:18:00 Greg problem 11:10: [id number] 00 Endo/Nito knowledge/s Endo/Nito Resolve 2016-12-09 Cherrise kill d 3- 12:18:00 [place] deficit: pt 11:10: [id number] 00 Elimination constipatio Eliminatio Resolve 2016-12-09 Cherrise n n d 3 12:18:00 Greg 11:10: [id number] 00 Safety fall risk Safety Resolve 2016-06-16 Cherrise factor d 3-13 10:31:00 Greg present 11:10: [id number] 00 Gait/Locomo gait PT/OT: Resolve 2016-06-05 Rubén tion assistive Gait/Locom d 3-13 13:30:00 Que problems device otion 14:45: [id number] present 00 Gait/Locomo gait PT/OT: Resolve 2016-06-05 Rubén tion deficit Gait/Locom d 3-13 13:30:00 Que problems otion 14:45: [id number] 00 Gait/Locomo gait PT/OT: Resolve 2016-06-12 Rubén tion assistive Gait/Locom d 3-20 15:30:00 Que problems device otion 15:30: [id number] present 00 Gait/Locomo gait PT/OT: Resolve 2016-06-12 Rubén tion deficit Gait/Locom d 3-20 15:30:00 Que problems otion 15:30: [id number] 00 Endo/Nito knowledge/s Endo/Nito Resolve 2016-12-09 Cherrise kill d 3 12:18:00 Greg deficit: cg 10:31: [id number] 00 Nutrition knowledge/s Nutrition Resolve 2016-07-14 Cher[facility] kill d 06-16 09:45:00 [place] deficit: pt 10:31: [id number] 00 Nutrition knowledge/s Nutrition Resolve 2016-07-14 [facility] kill d 06-16 09:45:00 [place] deficit: cg 10:31: [id number] 00 Elimination urinary Eliminatio Resolve 2016-12-09 Cherrise urgency n d 06-16 12:18:00 [place] 10:31: [id number] 00 Elimination diarrhea Eliminatio Resolve 2016-12-09 Cherrise n d 06-16 12:18:00 Greg 10:31: [id number] 00 Neuro depressive Neuro/Emot Resolve 2016-07-14 Cherrise feelings ion d 06-16 09:45:00 [place] present 10:31: [id number] 00 Safety can be left Safety Resolve 2016-06-16 Cherrise alone for d 06-16 10:31:00 Greg only short 10:31: [id number] periods 00 Musculoskel knowledge/s Musculoske Resolve 2016-07-14 Cherrise etal kill letal d 06-16 09:45:00 Greg deficit: cg 10:31: [id number] 00 Musculoskel knowledge/s Musculoske Resolve 2016-07-14 Cherrise etal kill letal d 06-16 09:45:00 [place] deficit: pt 10:31: [id number] 00 Safety risk for Safety Unknown Rub[facility] hospitaliza 06-16 Que tion 14:30: [id number] 00 Gait/Locomo gait PT/OT: Resolve 2016-06-18 Rubén tion assistive Gait/Locom d 06-16 16:15:00 Que problems device otion 14:30: [id number] present 00 Gait/Locomo gait PT/OT: Resolve 2016-06-18 Rubén tion deficit Gait/Locom d 06-16 16:15:00 Que problems otion 14:30: [id number] 00 Safety can be left Safety Resolve 2016-11-10 Ashley adam for d 06-23 13:50:00 Vinnie larios nai 09:00: [id number] periods 00 Gait/Locomo gait PT/OT: Resolve 2016-07-28 Rubén tion assistive Gait/Locom d 06-23 16:40:00 Que problems device otion 16:50: [id number] present 00 Gait/Locomo gait PT/OT: Resolve 2016-07-28 Rubén tion deficit Gait/Locom d 06-23 16:40:00 Que problems otion 16:50: [id number] 00 Neuro impaired Neuro/Emot Resolve 2017-03-24 Cherrise decision-ma ion d 06-30 14:32:00 [place] marcelle 09:45: [id number] 00 Neuro seizures Neuro/Emot Resolve 2016-08-11 Geni ion d 06-30 10:15:00 Greg 09:45: [id number] 00 Safety fall risk Safety Resolve 2016-07-14 Cherrise factor d 06-30 09:45:00 [place] present 09:45: [id number] 00 Safety risk for Safety Resolve 2016-07-14 [facility] d 06-30 09:45:00 [place] tion 09:45: [id number] 00 Medication oral med Meds Unknown Estelita assistance 07-08 [place] required 09:05: [id number] 00 Medication injectable Meds Unknown Estelita med 07-08 [place] assistance 09:05: [id number] required 00 Safety risk for Safety Resolve 2016-08-11 [facility] hospitaliza d 07-15 10:15:00 Que tion 13:40: [id number] 00 Medication oral med Meds Unknown Estelita assistance 07-21 [place] required 08:48: [id number] 00 Medication injectable Meds Unknown Estelita med 07-21 [place]iss[place] assistance 08:48: [id number] required 00 Musculoskel transfer Musculoske Resolve 2016-10-27 Estelita etal assistance letkatie d 07-21 09:55:00 [place]iss[place] required 08:48: [id number] 00 Musculoskel knowledge/s Musculoske Resolve 2016-08-11 Estelita etal kill letal d 07-21 10:15:00 [place] deficit: pt 08:48: [id number] 00 Musculoskel knowledge/s Musculoske Resolve 2016-08-11 Estelita etal kill letal d 07-21 10:15:00 [place] deficit: cg 08:48: [id number] 00 Musculoskel requires Musculoske Resolve 2016-10-27 Estelita etal human letal d 07-21 09:55:00 [place]iss[place] assist to 08:48: [id number] leave home 00 Activity ADL Activity Resolve 2016-09-15 Estelita assistance d 07-28 09:00:00 [place] required 10:09: [id number] 00 Safety fall risk Safety Resolve 2016-08-11 Estelita factor d 07-28 10:15:00 [place] present 10:09: [id number] 00 Gait/Locomo gait PT/OT: Resolve 2016-07-30 Rubén tion assistive Gait/Locom d -10 15:30:00 Que problems device otion 15:30: [id number] present 00 Gait/Locomo gait PT/OT: Resolve 2016-07-30 Rubén tion deficit Gait/Locom d -10 15:30:00 Que problems otion 15:30: [id number] 00 Elimination bowel Eliminatio Resolve 2016-12-09 Estelita incontinenc n d 08-04 12:18:00 Ulisses e 09:00: [id number] 00 Neuro depressive Neuro/Emot Resolve 2017-03-24 Cherrise feelings ion d 08-11 14:32:00 Greg present 10:15: [id number] 00 Safety cannot be Safety Resolve 2016-12-09 Ashley left alone d 08-13 12:18:00 Vinnie 09:00: [id number] 00 Safety fall risk Safety Resolve 2016-11-10 Ashley factor d 08-13 13:50:00 Vinnie present 09:00: [id number] 00 Safety risk for Safety Resolve 2016-11-10 Ashley meza d 08-13 13:50:00 Vinnie tion 09:00: [id number] 00 Endo/Nito diabetic Endo/Nito Resolve 2016-12-23 Estelita foot care d 08-19 13:35:00 Ulisses 16:15: [id number] 00 Elimination UTI within Eliminatio Resolve 2016-09-22 Estelita past 14 n d 08-19 12:30:00 Ulisses days 16:15: [id number] 00 Neuro confusion Neuro/Emot Resolve 2017-03-24 Estelita present ion d 08-19 14:32:00 Ul[place] 16:15: [id number] 00 Neuro anxiety Neuro/Emot Resolve 2017-03-24 Estelita present ion d 08-19 14:32:00 [place] 16:15: [id number] 00 Medication oral med Meds Unknown Estelita assistance 08-19 Uliss[place] required 16:15: [id number] 00 Medication injectable Meds Unknown Estelita med 08-19 Ulisses assistance 16:15: [id number] required 00 Medication oral med Meds Unknown Maryse assistance 08-19 Regeczi required 16:15: [id number] 00 Musculoskel knowledge/s Musculoske Resolve 2016-09-15 Estelita etal kill letal d 08-19 09:00:00 [place]iss[place] deficit: pt 16:15: [id number] 00 Respiratory lung sounds Respirator Resolve 2016-11-03 Estelita deficit y d 09-01 09:58:00 [place] 11:23: [id number] 00 Neuro seizures Neuro/Emot Resolve 2016-12-09 Estelita ion d 09-08 12:18:00 [place] 09:30: [id number] 00 Activity ADL Activity Unknown Estelita assistance 09-29 Ulisses required 10:30: [id number] 00 Cardio chest pain Cardiovasc Resolve 2016-12-09 Estelita ular d 10-14 12:18:00 Uliss[place] 09:30: [id number] 00 Safety can be left Safety Unknown Estelita alone for 11-10 Ulisses only short 13:50: [id number] periods 00 Safety risk for Safety [facility] [place] tion 10:25: [id number] 00 Safety can be left Safety Resolve 2016-12-09 Estelita alone for d 11-25 12:18:00 Uliss[place] only short 10:03: [id number] periods 00 Safety fall risk Safety Resolve 2016-12-09 Estelita factor d 11-25 12:18:00 Ulisses present 10:03: [id number] 00 Activity ADL Activity Resolve 2017-03-10 Estelita assistance d 12-12 14:00:00 Ulisses required 13:07: [id number] 00 Safety risk for Safety Resolve 2016-12-16 [facility] d 12-12 10:39:00 Ulisses tion 13:07: [id number] 00 Safety cannot be Safety Resolve 2017-01-27 Estelita left alone d 12-12 13:44:00 Ulisses 13:07: [id number] 00 Activity ADL Activity Unknown Estelita assistance 12-12 Ulisses required 13:43: [id number] 00 Safety risk for Safety Unknown [facility] 10:39:00 Ulisses tion 13:43: [id number] 00 Elimination urinary Eliminatio Resolve 2016-12-23 Estelita incontinenc n d 12-16 13:35:00 Ulisses e 10:39: [id number] 00 Elimination bowel Eliminatio Active Estelita incontinenc n 12-16 Ulisses e 10:39: [id number] 00 Elimination constipatio Eliminatio Active Estelita n n 12-16 Ulisses 10:39: [id number] 00 Elimination diarrhea Eliminatio Active Estelita n 9-26 Ulisses 10:39: [id number] 00 Elimination urinary Eliminatio Resolve 2016-032017-03-10 Estelita incontinenc n d 0-10 14:00:00 Ulisses e 13:16: [id number] 00 Safety risk for Safety Resolve 2016-032017-01-27 Estelita hospitaliza d 0-10 13:44:00 Ulisses tion 13:16: [id number] 00 Safety can be left Safety Resolve 2016-032017-01-27 Estelita alone for d 0-10 13:44:00 Uliss[place] only short 13:16: [id number] periods 00 Cardio chest pain Cardiovasc Active 2016-03 Divina ular 0-17 [place] 17:00: [id number] 00 Cardio edema Cardiovasc Resolve 2016-032017-02-10 Divina ular d 0-17 12:43:00 [place] 17:00: [id number] 00 Cardio hypertensio Cardiovasc Active 2016-03 Divina n ular 0-17 [place] 17:00: [id number] 00 Respiratory dyspnea Respirator Resolve 2016-032017-02-10 Divina present y d 0-17 12:43:00 [place] 17:00: [id number] 00 Respiratory oxygen Respirator Active 2016-03 Divina treatments y 0-17 [place] in home 17:00: [id number] 00 Respiratory lung sounds Respirator Resolve 2016-032017-02-10 Divina deficit y d 0-17 12:43:00 [place] 17:00: [id number] 00 Respiratory CPAP Respirator Resolve 2016-032018-02-16 Divina treatments y d 0-17 09:41:00 [place] in home 17:00: [id number] 00 Respiratory nebulizer Respirator Resolve 2016-032018-02-16 Divina treatment y d 0-17 09:41:00 [place] in home 17:00: [id number] 00 Respiratory knowledge/s Respirator Resolve 2016-032017-01-27 Divina kill y d 0-17 13:44:00 [place] deficit: pt 17:00: [id number] 00 Safety fall risk Safety Resolve 2016-032017-01-27 Estelita factor d - 13:44:00 Ulisses present 13:44: [id number] 00 Safety risk for Safety Resolve 2016-032017-03-03 Estelita hospitaliza d 1-08 15:22:00 Ulisses tion 13:03: [id number] 00 Safety can be left Safety Resolve 2016-032017-03-03 Estelita alone for d 1-14 15:22:00 Ulisses only short 13:51: [id number] periods 00 Respiratory lung sounds Respirator Resolve 2016-032017-03-10 Estelita deficit y d 1-28 14:00:00 Ulisses 11:10: [id number] 00 Gait/Locomo gait PT/OT: Resolve 2016-032017-09-10 Rubén tion assistive Gait/Locom d 2-14 11:30:00 Que problems device otion 13:15: [id number] present 00 Safety risk for Safety Resolve 2016-032017-03-10 Rub[facility] hospitaliza d 2-18 14:00:00 Que tion 14:15: [id number] 00 Gait/Locomo gait PT/OT: Resolve 2016-032017-09-10 Rubén tion deficit Gait/Locom d 2-18 11:30:00 Que problems otion 14:15: [id number] 00 Sensory impaired Sensory Resolve 2016-032017-03-24 Estelita hearing d 2- 14:32:00 Ulisses 14:00: [id number] 00 Safety can be left Safety Resolve 2016-032017-03-10 Estelita alone for d 2- 14:00:00 Ulisses only short 14:00: [id number] periods 00 Safety risk for Safety Resolve 2016-032017-03-18 Estelita hospitaliza d 2- 14:00:00 Ulisses tion 10:28: [id number] 00 Respiratory lung sounds Respirator Resolve 2016-032017-03-31 Estelita deficit y d - 16:04:00 Ulisses 14:00: [id number] 00 Elimination urinary Eliminatio Resolve 2016-032017-03-24 Estelita incontinenc n d 05-19 14:32:00 Ulisses e 14:00: [id number] 00 Safety can be left Safety Resolve 2016-032017-03-31 Estelita alone for d 2- 16:04:00 Ulisses only short 14:00: [id number] periods 00 Respiratory dyspnea Respirator Resolve 2017-11-24 Estelita present y d 03-24 14:00:00 Ulisses 14:32: [id number] 00 Nutrition knowledge/s Nutrition Resolve 2017-03-31 Estelita kill d 03-24 16:04:00 Luisses deficit: pt 14:32: [id number] 00 Nutrition knowledge/s Nutrition Resolve 2017-03-31 Estelita kill d 03-24 16:04:00 Ulisses deficit: cg 14:32: [id number] 00 Activity ADL Activity Unknown Estelita assistance 03-24 Ulisses required 14:32: [id number] 00 Safety fall risk Safety Resolve 2017-03-24 Estelita factor d 03-24 14:32:00 Ulisses present 14:32: [id number] 00 Safety risk for Safety Resolve 2017-03-24 Estelita hospitaliza d 03-24 14:32:00 Ulisses tion 14:32: [id number] 00 Medication injectable Meds Unknown Estelita med 03-24 Ulisses assistance 14:32: [id number] required 00 Nutrition nutritional Nutrition Resolve 2017-03-31 Estelita restriction d 03-26 16:04:00 Ulisses s 12:16: [id number] 00 Safety risk for Safety Resolve 2017-03-31 Estelita hospitaliza d 03-26 16:04:00 Ulisses tion 12:16: [id number] 00 Bed transfer PT/OT: Bed Resolve 2017-09-10 Rubén Mobility/Tr deficit: Mobility/T d - 11:30:00 Que mack sit/stand ransfer 14:00: [id number] 00 Bed transfer PT/OT: Bed Resolve 2017-09-10 Rubén Mobility/Tr deficit: Mobility/T d 03-26 11:30:00 Que mack standing ransfer 14:00: [id number] pivot 00 Bed transfer PT/OT: Bed Resolve 2017-09-10 Rubén Mobility/Tr deficit: Mobility/T d - 11:30:00 Que mack toilet/comm ransfer 14:00: [id number] ode 00 Bed transfer PT/OT: Bed Resolve 2017-09-10 Rubén Mobility/Tr deficit: Mobility/T d 03-26 11:30:00 Que mack shower/tub ransfer 14:00: [id number] 00 Bed transfer PT/OT: Bed Resolve 2017-09-10 Rubén Mobility/Tr deficit: Mobility/T d 03-26 11:30:00 Que mack vehicle ransfer 14:00: [id number] 00 Bed bed PT/OT: Bed Active Rubén Mobility/Tr mobility Mobility/T 03-26 Que mack deficit ransfer 14:00: [id number] 00 Endo/Nito anti-coagul Endo/Nito Resolve 2017-09-22 Etselita ation d 03-31 12:21:00 Ulisses therapy 16:04: [id number] 00 Endo/Nito diabetic Endo/Nito Resolve 2017-03-31 Estelita foot care d 03-31 16:04:00 Ulisses 16:04: [id number] 00 Elimination urinary Eliminatio Resolve 2017-03-31 Estelita incontinenc n d 03-31 16:04:00 Ulisses e 16:04: [id number] 00 Neuro confusion Neuro/Emot Resolve 2017-10-27 Estelita present ion d 03-31 10:31:00 Ulisses 16:04: [id number] 00 Medication oral med Meds Resolve 2017-04-06 Estelita assistance d 03-31 12:56:00 Ulisses required 16:04: [id number] 00 Medication injectable Meds Resolve 2017-04-06 Estelita med d 03-31 12:56:00 Ulisses assistance 16:04: [id number] required 00 Respiratory lung sounds Respirator Resolve 2017-04-06 Estelita deficit y d 04-03 12:56:00 Ulisses 11:44: [id number] 00 Endo/Nito diabetic Endo/Nito Resolve 2017-04-06 Estelita foot care d 1-12 12:56:00 Ulisses 11:44: [id number] 00 Elimination urinary Eliminatio Resolve 2017-04-06 Estelita incontinenc n d - 12:56:00 Ulisses e 11:44: [id number] 00 Musculoskel requires Musculoske Resolve 2017-04-20 Estelita etal human letal d 04-06 09:23:00 Ulisses assist to 12:56: [id number] leave home 00 Musculoskel requires Musculoske Resolve 2017-04-20 Estelita etal special letal d 04-06 09:23:00 Ulisses transportat 12:56: [id number] ion 00 Respiratory lung sounds Respirator Resolve 2017-04-20 Estelita deficit y d 04-13 09:23:00 Ulisses 08:30: [id number] 00 Elimination urinary Eliminatio Resolve 2017-04-28 Estelita incontinenc n d 04-13 12:19:00 Ulisses e 08:30: [id number] 00 Safety risk for Safety Active Estelita hospitaliza 04-13 Ulisses tion 08:30: [id number] 00 Safety can be left Safety Resolve 2017-04-20 Estelita alone for d 04-13 09:23:00 Ulisses only short 08:30: [id number] periods 00 Respiratory lung sounds Respirator Resolve 2017-07-21 Estelita deficit y d 04-28 12:47:00 Ulisses 12:19: [id number] 00 Safety can be left Safety Resolve 2017-05-05 Estelita alone for d 04-28 11:50:00 Ulisses only short 12:19: [id number] periods 00 Respiratory pneumonia Respirator Resolve 2017-07-21 Estelita y d - 12:47:00 Ulisses 11:50: [id number] 00 Endo/Nito diabetic Endo/Nito Resolve 2017-10-27 Estelita foot care d - 10:31:00 Ulisses 11:50: [id number] 00 Elimination urinary Eliminatio Resolve 2017-07-14 Maryse incontinenc n d 2-13 12:22:00 Regeczi e 11:50: [id number] 00 Activity ADL Activity Resolve 2017-12-29 Maryse assistance d 2- 11:16:00 Regeczi required 11:50: [id number] 00 Safety fall risk Safety Resolve 2017-07-14 Estelita factor d 2- 12:22:00 Ulisses present 11:50: [id number] 00 Medication oral med Meds Resolve 2017-07-14 Estelita assistance d 2- 12:22:00 Ulisses required 11:50: [id number] 00 Medication injectable Meds Resolve 2017-07-14 Estelita med d 05-05 12:22:00 Ulisses assistance 11:50: [id number] required 00 Medication potential Meds Resolve 2017-07-14 Estelita clinically d 05-05 12:22:00 Ulisses significant 11:50: [id number] medication 00 issue Musculoskel transfer Musculoske Unknown Estelita etal assistance letal 05-05 Ulisses required 11:50: [id number] 00 Musculoskel requires Musculoske Unknown Estelita etal special letal 2- Ulisses transportat 11:50: [id number] ion 00 Endo/Nito glucose Endo/Nito Resolve 2017-10-27 Estelita tolerance d 2 10:31:00 Ulisses problem 10:40: [id number] 00 Endo/Nito knowledge/s Endo/Nito Resolve 2017-09-29 Estelita kill d 05-12 11:58:00 Ulisses deficit: cg 10:40: [id number] 00 Endo/Nito knowledge/s Endo/Nito Resolve 2017-09-29 Estelita kill d 05-12 11:58:00 Ulisses deficit 10:40: [id number] hypo/hyperg 00 lycemia: cg Safety can be left Safety Resolve 2017-07-21 Estelita alone for d 05-12 12:47:00 Ulisses only short 10:40: [id number] periods 00 Infection s/s of Infection Resolve 2017-12-01 Estelita infection d 2- 10:00:00 Ulisses 14:00: [id number] 00 Musculoskel requires Musculoske Resolve 2017-10-13 Estelita etal human letal d 05-26 10:51:00 Ulisses assist to 13:58: [id number] leave home 00 Musculoskel requires Musculoske Resolve 2017-10-13 Estelita etal special letal d 05-26 10:51:00 Ulisses transportat 13:58: [id number] ion 00 Safety cannot be Safety Resolve 2017-07-21 Estelita left alone d 07-07 12:47:00 Ulisses 12:05: [id number] 00 Safety knowledge/s Safety Resolve 2017-07-14 Estelita kill d 07-14 12:22:00 Ulisses deficit: pt 12:22: [id number] 00 Elimination urinary Eliminatio Resolve 2017-07-21 Estelita incontinenc n d 07-21 12:47:00 Ulisses e 12:47: [id number] 00 Neuro impaired Neuro/Emot Resolve 2017-10-27 Estelita decision-ma ion d 07-21 10:31:00 Ulisses marcelle 12:47: [id number] 00 Activity ADL Activity Unknown Estelita assistance 07-21 Ulisses required 12:47: [id number] 00 Safety fall risk Safety Resolve 2017-12-01 Estelita factor d 07-21 10:00:00 Ulisses present 12:47: [id number] 00 Medication injectable Meds Resolve 2017-08-24 Estelita med d 07-21 12:12:00 Ulisses assistance 12:47: [id number] required 00 Respiratory lung sounds Respirator Resolve 2017-07-28 Estelita deficit y d 07-24 12:01:00 Ulisses 12:50: [id number] 00 Elimination urinary Eliminatio Resolve 2017-09-22 Estelita incontinenc n d 07-24 12:21:00 Ulisses e 12:50: [id number] 00 Safety can be left Safety Resolve 2017-12-29 Estelita alone for d 07-24 11:16:00 Ulisses only short 12:50: [id number] periods 00 Safety cannot be Safety Resolve 2017-12-29 Estelita left alone d 07-28 11:16:00 Ulisses 12:01: [id number] 00 Safety knowledge/s Safety Resolve 2017-12-01 Estelita kill d 07-28 10:00:00 Ulisses deficit: pt 12:01: [id number] 00 Respiratory lung sounds Respirator Resolve 2017-10-27 Estelita deficit y d 07-30 10:31:00 Ulisses 10:57: [id number] 00 Elimination recurring Eliminatio Resolve 2017-09-07 Estelita UTI n d 09-01 09:49:00 Ulisses 10:54: [id number] 00 Musculoskel transfer Musculoske Resolve 2017-10-13 Estelita etal assistance letal d 09-07 10:51:00 Ulisses required 09:49: [id number] 00 Elimination recurring Eliminatio Resolve 2017-09-22 Estelita UTI n d 09-22 12:21:00 Ulisses 12:21: [id number] 00 Neuro depressive Neuro/Emot Resolve 2017-12-29 Estelita feelings ion d 09-22 11:16:00 Ulisses present 12:21: [id number] 00 Medication injectable Meds Resolve 2017-09-29 Estelita med d 09-22 11:58:00 Ulisses assistance 12:21: [id number] required 00 Endo/Nito anti-coagul Endo/Nito Resolve 2017-10-27 Estelita ation d 10-06 10:31:00 Ulisses therapy 11:32: [id number] 00 Safety knowledge/s Safety Resolve 2017-12-01 Estelita kill d 10-06 10:00:00 Ulisses deficit: cg 11:32: [id number] 00 Musculoskel transfer Musculoske Unknown Estelita etal assistance letal 10-20 Ulisses required 12:01: [id number] 00 Musculoskel requires Musculoske Resolve 2017-12-01 Estelita etal human letal d 10-20 10:00:00 Ulisses assist to 12:01: [id number] leave home 00 Neuro anxiety Neuro/Emot Resolve 2017-12-29 Estelita present ion d 10-27 11:16:00 Ulisses 10:31: [id number] 00 Medication oral med Meds Resolve 2017-11-11 Estelita assistance d 10-27 10:50:00 Ulisses required 10:31: [id number] 00 Medication injectable Meds Resolve 2017-11-11 Estelita med d 10-27 10:50:00 Ulisses assistance 10:31: [id number] required 00 Bed transfer PT/OT: Bed Active Rubén Mobility/Tr deficit: Mobility/T 8-10 Que ansfer sit/stand ransfer 10:30: [id number] 00 Bed transfer PT/OT: Bed Active Rubén Mobility/Tr deficit: Mobility/T 8-10 Que ansfer toilet/comm ransfer 10:30: [id number] ode 00 Bed transfer PT/OT: Bed Active Rubén Mobility/Tr deficit: Mobility/T 8-10 Que ansfer shower/tub ransfer 10:30: [id number] 00 Bed transfer PT/OT: Bed Active Rubén Mobility/Tr deficit: Mobility/T 8-10 Que ansfer vehicle ransfer 10:30: [id number] 00 Gait/Locomo gait PT/OT: Active Rubén tion deficit Gait/Locom 8-10 Que problems otion 10:30: [id number] 00 Gait/Locomo gait PT/OT: Active Rubén tion assistive Gait/Locom 8-10 Que problems device otion 10:30: [id number] present 00 Gait/Locomo knowledge/s PT/OT: Active Rubén tion kill Gait/Locom 8-10 Que problems deficit: pt otion 10:30: [id number] 00 Respiratory lung sounds Respirator Resolve 2017-11-18 Estelita deficit y d 11-03 15:52:00 Ulisses 10:41: [id number] 00 Endo/Nito anti-coagul Endo/Nito Resolve 2018-08-03 Estelita ation d 11-03 12:10:00 Ulisses therapy 10:41: [id number] 00 Elimination urinary Eliminatio Resolve 2017-11-18 Estelita incontinenc n d 11-17 15:52:00 Ulisses e 08:59: [id number] 00 Nutrition knowledge/s Nutrition Active Estelita kill 11-18 Ulisses deficit: pt 15:52: [id number] 00 Nutrition knowledge/s Nutrition Active Estelita kill 11-18 Ulisses deficit: cg 15:52: [id number] 00 Nutrition nutritional Nutrition Resolve 2017-11-18 Estelita restriction d 11-18 15:52:00 Ulisses s 15:52: [id number] 00 Neuro impaired Neuro/Emot Resolve 2017-12-29 Estelita decision-ma ion d 11-18 11:16:00 Ulisses marcelle 15:52: [id number] 00 Medication injectable Meds Resolve 2017-11-24 Estelita med d 11-18 14:00:00 Ulisses assistance 15:52: [id number] required 00 Musculoskel transfer Musculoske Resolve 2017-12-01 Estelita etal assistance letal d 11-18 10:00:00 Ulisses required 15:52: [id number] 00 Nutrition nutritional Nutrition Resolve 2017-11-24 Rubén restriction d 11-23 14:00:00 Que s 12:20: [id number] 00 Respiratory lung sounds Respirator Resolve 2017-12-08 Estelita deficit y d 11-24 10:45:00 Ulisses 14:00: [id number] 00 Elimination urinary Eliminatio Resolve 2017-12-29 Estelita incontinenc n d 11-24 11:16:00 Ulisses e 14:00: [id number] 00 Respiratory dyspnea Respirator Resolve 2017-12-15 Estelita present y d 11-27 11:24:00 Ulisses 17:09: [id number] 00 Musculoskel requires Musculoske Resolve 2018-11-10 Estelita etal human letal d 12-08 09:15:00 Ulisses assist to 10:45: [id number] leave home 00 Bed transfer PT/OT: Bed Active Rubén Mobility/Tr deficit: Mobility/T 12-14 Que mack standing ransfer 13:15: [id number] pivot 00 Respiratory lung sounds Respirator Resolve 2018-02-16 Estelita deficit y d 12-15 09:41:00 Ulisses 11:24: [id number] 00 Respiratory dyspnea Respirator Active 2017-03 Estelita present y Ulisses 09:53: [id number] 00 Elimination urinary Eliminatio Resolve 2017-032018-02-16 Estelita incontinenc n d 0-10 09:41:00 Ulisses e 13:18: [id number] 00 Activity ADL Activity Unknown 2017-03 Estelita assistance 0-10 Ulisses required 13:18: [id number] 00 Safety cannot be Safety Resolve 2017-032018-08-03 Estelita left alone d 0-10 12:10:00 Ulisses 13:18: [id number] 00 Neuro anxiety Neuro/Emot Resolve 2017-032018-12-08 Estelita present ion d 0-16 10:56:00 Ulisses 10:49: [id number] 00 Neuro impaired Neuro/Emot Resolve 2017-032018-12-08 Estelita decision-ma ion d 0-16 10:56:00 Ulisses marcelle 10:49: [id number] 00 Nutrition nutritional Nutrition Resolve 2017-032018-02-16 Estelita restriction d 0-30 09:41:00 Ulisses s 10:43: [id number] 00 Safety fall risk Safety Resolve 2017-032018-08-03 Estelita factor d 0-30 12:10:00 Ulisses present 10:43: [id number] 00 Medication injectable Meds Resolve 2017-032018-02-09 Estelita med d 0-30 14:18:00 Ulisses assistance 10:43: [id number] required 00 Respiratory BiPAP Respirator Active 2017-03 Estelita treatments y 04-11 Ulisses in home 14:18: [id number] 00 Medication oral med Meds Resolve 2017-032018-02-09 Estelita assistance d 04-11 14:18:00 Ulisses required 14:18: [id number] 00 IV k/s IV Active 2017-03 Estelita deficit: IV 04-11 Ulisses care - pt 14:18: [id number] 00 Endo/Nito glucose Endo/Nito Active 2017-03 Estelita tolerance 04-18 Ulisses problem 09:41: [id number] 00 Endo/Nito knowledge/s Endo/Nito Active 2017-03 Estelita kill 04-18 Ulisses deficit 09:41: [id number] hypo/hyperg 00 lycemia: cg Respiratory lung sounds Respirator Active 2017-03 Estelita deficit y 04-26 Ulisses 09:51: [id number] 00 Sensory impaired Sensory Resolve 2017-032018-12-08 Estelita verbal d 04-26 10:56:00 Ulisses communicati 09:51: [id number] on 00 Nutrition nutritional Nutrition Resolve 2017-032018-06-22 Estelita restriction d 04-26 11:30:00 Ulisses s 09:51: [id number] 00 Elimination urinary Eliminatio Resolve 2017-032018-06-22 Estelita incontinenc n d 04-26 11:30:00 Ulisses e 09:51: [id number] 00 Endo/Nito diabetic Endo/Nito Active 2017-03 Estelita foot care 05-16 Ulisses 17:47: [id number] 00 Sensory impaired Sensory Resolve 2017-032018-12-08 Esteltia hearing d 05-16 10:56:00 Ulisses 17:47: [id number] 00 Integument surgical Integument Resolve 2017-032018-03-22 Estelita wound d 05-16 11:40:00 Ulisses present 17:47: [id number] 00 Integument skin Integument Active 2017-03 Estelita integrity 05-16 Ulisses risk 17:47: [id number] 00 Neuro confusion Neuro/Emot Resolve 2017-032018-12-08 Estelita present ion d 05-16 10:56:00 Ulisses 17:47: [id number] 00 Medication oral med Meds Resolve 2017-032018-06-22 Estelita assistance d 05-16 11:30:00 Ulisses required 17:47: [id number] 00 Medication injectable Meds Resolve 2017-032018-06-22 Estelita med d 05-16 11:30:00 Ulisses assistance 17:47: [id number] required 00 Medication potential Meds Resolve 2017-032018-06-22 Estelita clinically d 05-16 11:30:00 Ulisses significant 17:47: [id number] medication 00 issue Musculoskel knowledge/s Musculoske Resolve 2017-032018-11-10 Estelita etal kill letal d 05-16 09:15:00 Ulisses deficit: pt 17:47: [id number] 00 Activity ADL Activity Resolve 2018-07-27 Estelita assistance d -16 09:15:00 Ulisses required 11:15: [id number] 00 Activity patient Activity Resolve 2018-11-10 Estelita bedbound d -16 09:15:00 Ulisses 11:15: [id number] 00 Musculoskel transfer Musculoske Resolve 2018-11-10 Estelita etal assistance letal d 16 09:15:00 Ulisses required 11:15: [id number] 00 Safety can be left Safety Resolve 2018-08-03 Estelita alone for d 04-14 12:10:00 Ulisses only short 11:45: [id number] periods 00 Infection s/s of Infection Active Estelita infection 05-14 Ulisses 10:00: [id number] 00 Activity self-care Activity Resolve 2018-07-27 Estelita deficit d 05-17 09:15:00 Ulisses 10:45: [id number] 00 Neuro behavior Neuro/Emot Resolve 2018-12-08 Estelita problems ion d - 10:56:00 Ulisses 09:46: [id number] 00 Neuro constant Neuro/Emot Resolve 2018-12-08 Estelita confusion ion d 3-04 10:56:00 Ulisses 09:46: [id number] 00 Medication inhalant Meds Resolve 2018-06-22 Estelita med d 3-12 11:30:00 Ulisses assistance 14:00: [id number] required 00 Respiratory CPAP Respirator Active Estelita treatments y - Ulisses in home 11:30: [id number] 00 Nutrition nutritional Nutrition Resolve 2018-07-27 Estelita restriction d 06-29 09:15:00 Ulisses s 10:00: [id number] 00 Respiratory nebulizer Respirator Active Estelita treatment y 07-06 Ulisses in home 11:53: [id number] 00 Elimination urinary Eliminatio Resolve 2018-07-27 Estelita incontinenc n d 07-06 09:15:00 Ulisses e 11:53: [id number] 00 Musculoskel requires Musculoske Resolve 2018-11-10 Estelita etal special letal d 07-06 09:15:00 Ulisses transportat 11:53: [id number] ion 00 Medication oral med Meds Resolve 2018-08-10 Estelita assistance d 07-13 09:21:00 Ulisses required 12:15: [id number] 00 Medication inhalant Meds Resolve 2018-08-10 Estelita med d 07-13 09:21:00 Ulisses assistance 12:15: [id number] required 00 Medication injectable Meds Resolve 2018-10-21 Estelita med d 07-13 09:54:00 Ulisses assistance 12:15: [id number] required 00 Medication potential Meds Active Estelita clinically 07-13 Ulisses significant 12:15: [id number] medication 00 issue Nutrition nutritional Nutrition Resolve 2018-12-08 Estelita restriction d 5-10 10:56:00 Ulisses s 13:30: [id number] 00 Elimination recurring Eliminatio Resolve 2018-12-08 Estelita UTI n d 5-14 10:56:00 Ulisses 12:10: [id number] 00 Endo/Nito anti-coagul Endo/Nito Active Estelita ation 08-10 Ulisses therapy 09:21: [id number] 00 Elimination urinary Eliminatio Resolve 2018-12-08 Estelita incontinenc n d 08-10 10:56:00 Ulisses e 09:21: [id number] 00 Safety cannot be Safety Resolve 2019-01-27 Estelita left alone d 08-10 11:00:00 Ulisses 09:21: [id number] 00 Safety can be left Safety Resolve 2019-01-27 Estelita alone for d 08-31 11:00:00 Ulisses only short 10:00: [id number] periods 00 Activity ADL Activity Resolve 2018-11-24 Estelita assistance d 09-14 10:15:00 Ulisses required 09:30: [id number] 00 Activity self-care Activity Resolve 2018-11-10 Estelita deficit d 09-14 09:15:00 Ulisses 09:30: [id number] 00 Safety fall risk Safety Resolve 2019-01-27 Estelita factor d 09-14 11:00:00 Ulisses present 09:30: [id number] 00 Medication injectable Meds Unknown Estelita med 09-14 Ulisses assistance 09:30: [id number] required 00 Medication injectable Meds Unknown Estelita med 09-29 Ulisses assistance 13:11: [id number] required 00 Medication injectable Meds Resolve 2018-10-21 Estelita med d 10-13 09:54:00 Ulisses assistance 12:30: [id number] required 00 Activity self-care Activity Resolve 2019-01-27 Estelita deficit d 11-17 11:00:00 Ulisses 09:49: [id number] 00 Medication injectable Meds Active Estelita med 11-17 Ulisses assistance 09:49: [id number] required 00 Musculoskel transfer Musculoske Resolve 2019-01-27 Estelita etal assistance letal d 11-17 11:00:00 Ulisses required 09:49: [id number] 00 Musculoskel knowledge/s Musculoske Resolve 2018-2019-01-27 Estelita etal kill letal d 11-17 11:00:00 Ulisses deficit: pt 09:49: [id number] 00 Musculoskel requires Musculoske Resolve 2019-01-27 Estelita etal human letal d 11-17 11:00:00 Ulisses assist to 09:49: [id number] leave home 00 Musculoskel requires Musculoske Resolve 2019-01-27 Estelita etal special letal d 11-17 11:00:00 Ulisses transportat 09:49: [id number] ion 00 Activity patient Activity Active Estelita bedbound 11-24 Ulisses 10:15: [id number] 00 Nutrition nutritional Nutrition Active Estelita restriction 12-14 Ulisses s 12:38: [id number] 00 Elimination urinary Eliminatio Active 2018-03 Estelita incontinenc n 0-02 Ulisses e 10:19: [id number] 00 Sensory impaired Sensory Active 2018-03 Estelita hearing 0-09 Ulisses 10:49: [id number] 00 Pain frequent Pain Mgmt Active 2018-03 Estelita pain 0-20 Ulisses 12:23: [id number] 00 Integument surgical Integument Active 2018-03 Estelita wound 0-20 Ulisses present 12:23: [id number] 00 Elimination UTI within Eliminatio Active 2018-03 Estelita past 14 n 0-20 Ulisses days 12:23: [id number] 00 Neuro confusion Neuro/Emot Active 2018-03 Estelita present ion 0-20 Ulisses 12:23: [id number] 00 Neuro anxiety Neuro/Emot Active 2018-03 Estelita present ion 0-20 Ulisses 12:23: [id number] 00 Neuro impaired Neuro/Emot Active 2018-03 Estelita decision-ma ion 0-20 Ulisses marcelle 12:23: [id number] 00 Activity ADL Activity Resolve 2018-032019-01-27 Estelita assistance d 0-20 11:00:00 Ulisses required 12:23: [id number] 00 Medication oral med Meds Active 2018-03 Estelita assistance 0-20 Ulisses required 12:23: [id number] 00 Endo/Nito insulin Endo/Nito Active 2018-03 Estelita admn 0- Ulisses dependence 10:16: [id number] 00 Endo/Nito glucose Endo/Nito Active 2018-03 Estelita testing 0- Ulisses dependence 10:16: [id number] 00 Allergies, Adverse Reactions, Alerts Allergy Allergy Status Severity Reaction(s) Onset Inactive Treating Comments Name Type Date Date Clinician Iodine and Allergen Active Unknown altered mental [facility] Iodide Group statusseizure 07-23 Guidelli Containing [id number] Products Levaquin Medication Active Unknown itching Cherelle Name ID 07-23 Guidelli [id number] nitroglycer Base Active Unknown Anaphylaxis Cherelle in Ingredient 07-23 Guidelli [id number] Medications Ordered Filled Start Stop Current Ordering Indication Dosage Frequency Signature Comments Components Medication Medication Date Date Medication? Clinician (SIG) Name Name acetaminoph acetaminoph 2016- No [facility] 1 tab Unknown en 325 mg en 325 mg 09-04 Jeremiah PASTOR tablet tablet albuterol albuterol 2017- No [place] 1 Kika Unknown sulfate 2.5 sulfate 2.5 06-12 Jeremiah PASTOR mg/3 mL mg/3 mL (0.083 %) (0.083 %) solution solution for for nebulizatio nebulizatio n n aspirin 81 aspirin 81 No [facility] 1 tab Unknown mg mg 10-06 Jeremiah PASTOR tablet,skyler tablet,skyler yed release yed release atorvastati atorvastati 2017- No [facility] 0.5.tab Unknown n 20 mg n 20 mg 09-30 12-24 Jeremiah PASTOR tablet tablet benzonatate benzonatate 2016- No [facility] 2 Cap Unknown 100 mg 100 mg 09-04 Jeremiah PASTOR capsule capsule budesonide budesonide 2017- No [place] 2 ML Unknown 0.5 mg/2 mL 0.5 mg/2 mL 09-04 Jeremiah PASTOR suspension suspension for for nebulizatio nebulizatio n n cholecalcif cholecalcif 2017- No [place] 2 tab Unknown rob rob 09-04 Jeremiah PASTOR (vitamin (vitamin D3) 1,000 D3) 1,000 unit (25 unit (25 mcg) tablet mcg) tablet carboxymeth carboxymeth 2017- No [place] 2 drops Unknown ylcellulose ylcellulose 09-04 ,Jeremiah sodium 1 % sodium 1 % eye liquid eye liquid gel drops gel drops clobetasol- clobetasol- 2017- No [place] 1 cream Unknown emollient emollient 09-04 ,Jeremiah 0.05 % 0.05 % topical topical cream cream bisacodyl bisacodyl 2016- No [facility] 1 Unknown 10 mg 10 mg 09-04 Jeremiah PASTOR Supposi rectal rectal tory suppository suppository Dilantin Dilantin 2015- No [place] 2 Cap Unknown Kapseal 100 Kapseal 100 08-09 Jeremiah PASTOR mg capsule mg capsule finasteride finasteride 2017- No [facility] 1 tab Unknown 5 mg tablet 5 mg tablet 09-04 Jeremiah PASTOR furosemide furosemide 2015- No [facility] 1 Tab Unknown 40 mg 40 mg 12-16 ,Jeremiah tablet tablet guaiFENesin guaiFENesin No [place] 5 ML Unknown 100 mg/5 mL 100 mg/5 mL 09-04 Jeremiah PASTOR oral liquid oral liquid Lantus Lantus 2014-03- No [facility] 35 Ikka Unknown U-100 U-100 04-07 Jeremiah PASTOR Insulin 100 Insulin 100 unit/mL unit/mL subcutaneou subcutaneou s solution s solution lidocaine 5 lidocaine 5 2016- No [facility] 1 cream Unknown % topical % topical 09-04 ,Jeremiah cream cream lisinopril lisinopril 2015- No [facility] 0.5 Tab Unknown 10 mg 10 mg 12-16 05- ,Jeremiah tablet tablet metFORMIN metFORMIN 2018- No [place] 1 tab Unknown 500 mg 500 mg 06-12 ,Jeremiah tablet tablet nystatin nystatin 2017- No [place] 1 cream Unknown 100,000 100,000 09-04 Jeremiah PASTOR unit/gram unit/gram topical topical cream cream oxyCODONE-a oxyCODONE-a 2014-03- No [facility] 1 tab Unknown cetaminophe cetaminophe 03-31 Jeremiah PASTOR n 5 mg-325 n 5 mg-325 mg tablet mg tablet Oxygen 2L/M Oxygen 2L/M 2015- No [place] 2 L Unknown 12-04 Jeremiah PASTOR /min senna 8.6 senna 8.6 2015- No [facility] 2 tab Unknown mg tablet mg tablet 08-15 Jeremiah PASTOR sertraline sertraline 2015- No [facility] 0.5 Tab Unknown 100 mg 100 mg 03-26 ,Jeremiah tablet tablet spironolact spironolact No [facility] 1 tab Unknown one 50 mg one 50 mg 09-04 ,Jeremiah tablet tablet traZODone traZODone 2017- No [place] 1.5 tab Unknown 50 mg 50 mg 08-09 ,Jeremiah tablet tablet warfarin 1 warfarin 1 2015- No [facility] 4-7 Unknown mg tablet mg tablet 06-03 ,Jeremiah warfarin 1 warfarin 1 2015- No [place] 4-7 Unknown mg tablet mg tablet 06-03 ,Jeremiah warfarin 1 warfarin 1 2015- No [facility] 7 Unknown mg tablet mg tablet 06-12 ,Jeremiah Dilantin Dilantin 2015- No [place] 3Cap Unknown Kapseal 100 Kapseal 100 06-12 Jeremiah PASTOR mg capsule mg capsule warfarin warfarin 2015- No [place] 8-7mg Unknown 06-17 ,Jeremiah warfarin warfarin 2015- No [place] 8-7mg Unknown 06-24 ,Jeremiah sulfamethox sulfamethox No [facility] 400 Unknown azole azole 06-24 ,Jeremiah warfarin warfarin 2015- No [place] 8-7mg Unknown 07-01 ,Jeremiah warfarin warfarin 2017- No [facility] 8-7mg Unknown 07-02 ,Jeremiah Bactrim DS Bactrim DS No [facility] 1 Unknown 800 mg-160 800 mg-160 - Jeremiah PASTOR mg tablet mg tablet sertraline sertraline No [facility] 1 Tab Unknown 100 mg 100 mg - ,Jeremiah tablet tablet warfarin 1 warfarin 1 2017- No [place] 7-8mg Unknown mg tablet mg tablet 07-08 ,Jeremiah Macrobid Macrobid 2015- No [facility] 100mg Unknown 100 mg 100 mg 07-08 ,Jeremiah capsule capsule warfarin 1 warfarin 1 2015- No [facility] 7-8 Unknown mg tablet mg tablet 07-11 ,Jeremiah Lantus Lantus 2015- [facility] 32 Kika Unknown U-100 U-100 07-12 Jeremiah PASTOR Insulin 100 Insulin 100 unit/mL unit/mL subcutaneou subcutaneou s solution s solution Dilantin Dilantin 2015- [place] 100 Unknown Kapseal 100 Kapseal 100 07-12 Jeremiah PASTOR mg-1 mg capsule mg capsule CAPSULE warfarin 1 warfarin 1 2015- No [place] 7 mg Unknown mg tablet mg tablet 07-12 ,Jeremiah senna 8.6 senna 8.6 2015- No [place] 2 tab Unknown mg tablet mg tablet 07-15 Jeremiah PASTOR Vitamin D Vitamin D 2015- No [facility] 1 Unknown 2,000 unit 2,000 unit 07-22 Jeremiah PASTOR tablet tablet warfarin 1 warfarin 1 No [facility] 6 Unknown mg tablet mg tablet 07-23 ,Jeremiah Bactrim 400 Bactrim 400 2016- No [place] 1 Unknown mg-80 mg mg-80 mg 07-23 ,Jeremiah tablet tablet dilTIAZem dilTIAZem 2015- No [place] 1 Unknown 120 mg 120 mg 07-23 ,Jeremiah tablet tablet warfarin 1 warfarin 1 2015- No [facility] 7 mg Unknown mg tablet mg tablet 07-26 ,Jeremiah warfarin 1 warfarin 1 2015- No [facility] 1mg tab Unknown mg tablet mg tablet 07-29 Jeremiah PASTOR coumidin coumidin 2015- [facility] 1mg Unknown 08-05 Jeremiah PASTOR Lovenox 80 Lovenox 80 2015- [place] 80mg Unknown mg/0.8 mL mg/0.8 mL 07-20 Jeremiah PASTOR subcutayimi subcutanemami s syringe s syringe Dilantin Dilantin 2015- [place] 2tabs Unknown Kapseal 100 Kapseal 100 08-09 Jeremiah PASTOR mg capsule mg capsule warfarin 1 warfarin 1 2015- [facility] 1mg Unknown mg tablet mg tablet 08-13 Jeremiah PASTOR warfarin 1 warfarin 1 2015- [facility] 1mg Unknown mg tablet mg tablet 08-12 Jeremiah PASTOR Oxygen 2L/M Oxygen 2L/M 2015- [facility] 4 L Unknown 08-30 Jeremiah PASTOR /min warfarin 1 warfarin 1 2015- [facility] 1mg Unknown mg tablet mg tablet 09-17 Jeremiah PASTOR warfarin 1 warfarin 1 2015- [place] 1mg Unknown mg tablet mg tablet 09-24 Jeremiah PASTOR warfarin 1 warfarin 1 2015- No [place] 1mg Unknown mg tablet mg tablet 09-30 ,Jeremiah warfarin 1 warfarin 1 2015- [facility] 1mg Unknown mg tablet mg tablet 09-24 Jeremiah PASTOR Coumadin 2 Coumadin 2 2015- No [facility] 5-6mg Unknown mg tablet mg tablet 09-30 Jeremiah PASTOR warfarin 1 warfarin 1 2015- No [place] 5mg Unknown mg tablet mg tablet 10-14 Jeremiah PASTOR Thursday, 6mg Thursday, 6mg Thursday , 6mg ay, 5mg y, 6mg Thursday, 6mg y. albuterol albuterol No [place] 2 puffs Unknown sulfate HFA sulfate HFA 07-17 Jeremiah PASTOR 90 90 mcg/actuati mcg/actuati on aerosol on aerosol inhaler inhaler warfarin 1 warfarin 1 2015- [place] per inr Unknown mg tablet mg tablet 11-04 Jeremiah PASTOR 1.3 on 11/04 take 7mg 11/04, 6mg thursday , 6mg thu then recheck warfarin 1 warfarin 1 2015- No [place] per inr Unknown mg tablet mg tablet [...] 11/18. warfarin 1 warfarin 1 2015- No [facility] perinr Unknown mg tablet mg tablet 11-18 Jeremiah PASTOR on 11/18 take 6 mg daily recheck 2 weeks on 12/02 Oxygen 2L/M Oxygen 2L/M 2015- No [facility] 4 L Unknown 11-22 Jeremiah PASTOR /min warfarin 1 warfarin 1 2015- No [place] perinr Unknown mg tablet mg tablet 11-22 Jeremiah PASTOR on 11/18 take 6 mg daily recheck 2 weeks on 12/02 warfarin 1 warfarin 1 2015- No [facility] perinr Unknown mg tablet mg tablet 11-26 Jeremiah PASTOR on 11/18 take 6 mg daily recheck 2 weeks on 12/02 senna 8.6 senna 8.6 2016- No [place] 2 tab Unknown mg tablet mg tablet 11-27 Jeremiah PASTOR warfarin 1 warfarin 1 2015- No [place] per inr Unknown mg tablet mg tablet 12-02 Jeremiah PASTOR on 11/1215 take 8mg thursday and with 6mg daily. recheck next inr on 12/09 amoxicillin amoxicillin 2015- No [place] 1 tab Unknown 500 500 12-04 Jeremiah PASTOR mg-potassiu mg-potassiu m m clavulanate clavulanate 125 mg 125 mg tablet tablet oxygen oxygen 2015- No [place] 3 Unknown 9-05 10-11 Jeremiah PASTOR liters in the home and 4 liters while out of the home warfarin 1 warfarin 1 2015- No [place] per inr Unknown mg tablet mg tablet 12-09 Jeremiah PASTOR on 12/09 take mon 6mg , tues, 4mg, thu 6mg, thur 6mg, thu 6mg, sat and sun 6mg, recheck on 12/16 warfarin 1 warfarin 1 2015- No [place] 6mg Unknown mg tablet mg tablet 12-16 Jeremiah PASTOR recheck INR 12/23 Dilantin Dilantin 2015- No [facility] 2 tabs Unknown Kapseal 100 Kapseal 100 12-20 Jeremiah PASTOR AM & mg capsule mg capsule BED furosemide furosemide 2015-03 [facility] take Unknown 40 mg 40 mg 0- Jeremiah PASTOR one tablet tablet tablet by mouth bid carvedilol carvedilol 2015-03 [place] take Unknown 6.25 mg 6.25 mg 0- Jeremiah PASTOR one- tablet tablet half tablet by mouth bid oxygen oxygen 2015-03 No [place] 3.5 Unknown 0- Jeremiah PASTOR litters at home and 4.5 out of the home Coumadin 1 Coumadin 1 2015-03- No [facility] take Unknown mg tablet mg tablet 01-15 Jeremiah PASTOR 6tabs q bedtime to prevent blood clots [facility] 01/08 carvedilol carvedilol 2015-03- No [facility] take Unknown 6.25 mg 6.25 mg 0- Jeremiah PASTOR 0.5 tablet tablet tablet by mouth bid nitrofurant nitrofurant 2015-03- No [place] 1 cap x Unknown oin oin 001-18 Jeremiah PASTOR 10 days macrocrysta macrocrysta l 100 mg l 100 mg capsule capsule Coumadin 1 Coumadin 1 2015-03- No [facility] take Unknown mg tablet mg tablet 01-20 Jeremiah PASTOR 6tabs q bedtime to prevent blood clots [facility] 01/20 Coumadin 1 Coumadin 1 2015-03- No [place] 6 tabs Unknown mg tablet mg tablet 0-31 11-18 Jeremiah PASTOR 1 Coumadin 1 2015-03- No [facility] 6 tabs Unknown mg tablet mg tablet 04-09- Jeremiah PASTOR Coumadin 1 Coumadin 1 2015-03- No [facility] 6-9 Unknown mg tablet mg tablet 05-04 Jeremiah PSATOR tabs Augmentin Augmentin 2015-03- No [facility] 875/125 Unknown 875 mg-125 875 mg-125 05-06 Jeremiah PASTOR mg mg tablet mg tablet Coumadin 1 Coumadin 2015-03- No [facility] 6mg-9mg Unknown mg tablet mg tablet 05-11 Jeremiah PASTOR 2015-03- No [place] 32 Unknown Solostar Solostar 05-11 Jeremiah PASTOR Units U-100 U-100 Insulin 100 Insulin 100 unit/mL (3 unit/mL (3 mL) mL) subcutaneou subcutaneou s pen s pen Coumadin 1 Coumadin 2015-03- No [facility] 6mg Unknown mg tablet mg tablet 05-19 Jeremiah PASTOR (Sun/ es/Thur s/Sat)- 9mg M/W/F Coumadin 1 Coumadin 1 2016- No [place] 8mg X1 Unknown mg tablet mg tablet 03-25 Jeremiah PASTOR (03/25/16 ), then M,W,F 9mg, other days 6mg. RECHECK INR 04/01/16 insulin insulin 2016- No [facility] 32 Unknown glargine glargine 03-25 Jeremiah PASTOR Units (U-100) 100 (U-100) 100 unit/mL unit/mL subcutaneou subcutaneou s solution s solution cephALEXin cephALEXin 2016- No [place] 500mg Unknown 500 mg 500 mg 03-27 Jeremiah PASTOR capsule capsule insulin insulin 2016- No [facility] 37 Unknown glargine glargine 03-27 Jeremiah PASTOR Units (U-100) 100 (U-100) 100 unit/mL unit/mL subcutaneou subcutaneou s solution s solution Coumadin 1 Coumadin 1 2016- No [facility] 8mg X1 Unknown mg tablet mg tablet 04-01 Jeremiah PASTOR (03/25/16 ), then M,W,F 9mg, other days 6mg. RECHECK INR 04/01/16 Coumadin 1 Coumadin 1 2016- No [facility] 8mg X1 Unknown mg tablet mg tablet 04-01 Jeremiah PASTOR (03/25/16 ), then M,W,F 9mg, other days 6mg. RECHECK INR 04/01/16 insulin insulin 2016- No [place] 25 Unknown glargine glargine 04-01 ,Jeremiah Units (U-100) 100 (U-100) 100 unit/mL unit/mL subcutaneou subcutaneou s solution s solution furosemide furosemide 2015-03 No [place] 1 tab Unknown 40 mg 40 mg 0 10-20 Jeremiah PASTOR tablet tablet Dilantin Dilantin 2016- No [place] 2 tabs Unknown Kapseal 100 Kapseal 100 12-20 05- Jeremiah PASTOR mg capsule mg capsule carvedilol carvedilol 2015-03- No [place] 0.5 tab Unknown 6.25 mg 6.25 mg 0 04-25 Jeremiah PASTOR tablet tablet Coumadin 1 Coumadin 1 2016- No [facility] 6-9 Unknown mg tablet mg tablet 04-01 Jeremiah PASTOR tabs insulin insulin 2016- No [place] 25 Unknown glargine glargine 04-01 Jeremiah PASTOR Units (U-100) 100 (U-100) 100 unit/mL unit/mL subcutaneou subcutaneou s solution s solution warfarin 1 warfarin 1 2016- No [facility] 6mg Unknown mg tablet mg tablet 04-08 Jeremiah PASTOR warfarin 1 warfarin 1 2016- No [place] 9mg Unknown mg tablet mg tablet 04-08 ,Jeremiah warfarin 1 warfarin 1 2016- No [place] 6 tabs Unknown mg tablet mg tablet 04-08 Jeremiah PASTOR (Sun/Edward es/Thbessie s/Sat) warfarin 1 warfarin 1 2016- No [place] 6 tabs Unknown mg tablet mg tablet 04-08 Jeremiah PASTOR (Thu///Thu) warfarin 1 warfarin 1 2016- No [facility] 9 tabs Unknown mg tablet mg tablet 04-08 ,Jeremiah ( d/Thu) acetaminoph acetaminoph No [facility] 2 tab Unknown en 325 mg en 325 mg 04-21 ,Jeremiah tablet tablet warfarin 1 warfarin 1 2016- No [facility] 11 tabs Unknown mg tablet mg tablet 05-05 ,Jeremiah warfarin 1 warfarin 1 2016- No [place] 9 tabs Unknown mg tablet mg tablet 05-06 Jeremiah PASTOR ( d/Thu) Keflex 500 Keflex 500 2016- No [place] 1 Unknown mg capsule mg capsule 05-24 Jeremiah PASTOR warfarin 1 warfarin 1 2016- No [place] 6-9 Unknown mg tablet mg tablet 06-12 ,Jeremiah tablets (6-9 mgs) senna 8.6 senna 8.6 2017- No [place] 1-2 tab Unknown mg tablet mg tablet 06-19 Jeremiah PASTOR warfarin 1 warfarin 1 2016- No [place] 9mg on Unknown mg tablet mg tablet 07-08 Jeremiah PASTOR 07/08 only repeat INR 4/25 warfarin 1 warfarin 1 2016- No [facility] 6-9 Unknown mg tablet mg tablet 07-08 Jeremiah PASTOR tablets (6-9 mgs)rep eat INR 4/25 cephALEXin cephALEXin 2016- No [facility] 500mg Unknown 500 mg 500 mg 07-08 Jeremiah PASTOR cap capsule capsule warfarin 1 warfarin 1 2016- No [place] 11 Unknown mg tablet mg tablet 07-14 ,Jeremiah tablets M-07/14, 9 tabs // and 6tabs /// Thu/Thu cephALEXin cephALEXin 2016- No [place] 1 cap Unknown 500 mg 500 mg 07-08 ,Jeremiah capsule capsule warfarin 1 warfarin 1 2016- No [facility] 3 tabs Unknown mg tablet mg tablet 07-21 Jeremiah PASTOR 5/1,2 tabs 5/2,3 tabs 5/3,2 tabs 5/4,3 tabs 5/5,3 tabs 5/6,2 tabs 5/7 warfarin 3 warfarin 3 No [place] 3 tabs Unknown mg tablet mg tablet 07-21 Jeremiah PASTOR 5/1,2 tabs 5/2,3 tabs 5/3,2 tabs 5/4,3 tabs 5/5,3 tabs 5/6,2 tabs 5/7 warfarin 3 warfarin 3 2016- No [facility] 3 tabs Unknown mg tablet mg tablet 07-21 Jeremiah PASTOR Mon,Thu ,Fri,Sa t 2 tabs Sun,Tue s,Thur repeat INR 08/04 warfarin 3 warfarin 3 [facility] 4.5 mg Unknown mg tablet mg tablet 08-04 Jeremiah PASTOR for today only then:6m g Tues and Thurs,9 mg Thu Sat and Sun repeat INR 08/11 warfarin 3 warfarin 3 2016- No [place] 2 tabs Unknown mg tablet mg tablet 08-11 Jeremiah PASTOR (6 mg Tues and Thurs), 3 tabs (9mg Thu/Wed /Thu/Sa t/Sun enoxaparin enoxaparin No [place] 1ml Unknown sodium 100 sodium 100 08-19- Jeremiah PASTOR/1mL mg/1mL subcutaneou subcutaneou s syringe s syringe HYDROcodone HYDROcodone [place] 1 tab Unknown 5 5 08-19- Jeremiah PASTOR mg-acetamin mg-acetamin ophen 325 ophen 325 mg tablet mg tablet warfarin 3 warfarin 3 2016- No [place] 2 tabs Unknown mg tablet mg tablet 08-19 [facility] PASTOR (6 mg Tues and Thurs), 3 tabs (9mg Thu/Wed /Fri/Sa t/Sun warfarin 3 warfarin 3 No [facility] 2 tabs Unknown mg tablet mg tablet 08-19 Jeremiah PASTOR (6 mg Tues and Thurs), 3 tabs (9mg Thu/Wed /Fri/Sa t/Sun warfarin 3 warfarin 3 2016- No [facility] 4 tabs Unknown mg tablet mg tablet 08-21 Jeremiah PASTOR 6/2 and 6/3 repeat INR 6/5 cephALEXin cephALEXin 2016- No [facility] 1 cap Unknown 500 mg 500 mg 08-22 Jeremiah PASTOR for 4 capsule capsule days warfarin 3 warfarin 3 2016- No [facility] 12mg Unknown mg tablet mg tablet 08-25 Jeremiah PASTOR 6/6,9mg 08/27-08/21 1 repeat INR 6/12 warfarin 3 warfarin 3 2016- No [place] 12mg Unknown mg tablet mg tablet 08-25 Jeremiah PASTOR 6/6,9mg /7-08/21 1 repeat INR 6/12 warfarin 3 warfarin 3 2016- No [facility] 12mg Unknown mg tablet mg tablet 09-01 Jeremiah PASTOR 09/01,9m g 09/02-,repe at INR 619 warfarin 3 warfarin 3 2016- No [place] 9mg Unknown mg tablet mg tablet 09-15 Jeremiah PASTOR until September 28 then repeat INR cephALEXin cephALEXin 2016- No [place] 500mg Unknown 500 mg 500 mg 09-16 [facility] PASTOR capsule capsule warfarin 3 warfarin 3 2016- No [place] 9mg Unknown mg tablet mg tablet 09-29 Jeremiah PASTOR daily repeat INR 10/13 insulin insulin 2016- [facility] 30 Unknown glargine glargine 10-06 Jeremiah PASTOR Units (U-100) 100 (U-100) 100 unit/mL unit/mL subcutaneou subcutaneou s solution s solution warfarin 3 warfarin 3 2016- No [facility] hold Unknown mg tablet mg tablet 10-14 08 [facility] PASTOR 10/14,9m g mon,tue s,thurs sat and sun,6mg mon and fri,rep eat INR 8/7 insulin insulin 2017- No [facility] 35 Unknown glargine glargine 10-20 12- Jeremiah PASTOR Units (U-100) 100 (U-100) 100 unit/mL unit/mL subcutaneou subcutaneou s solution s solution warfarin 3 warfarin 3 2016- [place] hold Unknown mg tablet mg tablet 10-27 Jeremiah PASTOR until 10/29 repeat INR 10/30 warfarin 3 warfarin 3 2016- No [place] 9mg Unknown mg tablet mg tablet 10-30 Jeremiah PASTOR thursday and da y,6mg Thu.,Fr i,and Sun,rep eat INR 11/03 warfarin 3 warfarin 3 2016- [facility] 7.5mg Unknown mg tablet mg tablet 11-03 Jeremiah PASTOR 11/03 then 9mg sat and 6mg thu fri and sun,rep eat INR 11/10 cephALEXin cephALEXin [facility] 500mg Unknown 500 mg 500 mg 11-03 [facility] PASTOR capsule capsule warfarin 3 warfarin 3 2016- [facility] 6mg Unknown mg tablet mg tablet 11-18 Jeremiah PASTOR Thu,Thu ,Fri and Sun,9mg ,, and Sat repeat INR 11/25 warfarin 3 warfarin 3 2016- [place] hold Unknown mg tablet mg tablet 11-25 [facility] PASTOR 11/25 then 6mg sat,9mg Thu Fri and Sun warfarin 3 warfarin 3 2016- [facility] hol on Unknown mg tablet mg tablet 12-09 [facility] PASTOR,9m g Wed and Sat,6mg the rest of the week and repeat INR on 12/16 warfarin 3 warfarin 3 2016- [facility] hold on Unknown mg tablet mg tablet 12-16 [facility] PASTOR,6m g 6xwk,9m g on Sat,rep eat INR on 12/30 warfarin 3 warfarin 3 2016-03- No [facility] 2.5 Unknown mg tablet mg tablet - Jeremiah PASTOR tabclay today,6 mg the rest of the week but 9mg on Sat.,re peat INR in one week if pt doesnt go to clinic on 01/05 cephALEXin cephALEXin 2016-03- [place] 1 Unknown 500 mg 500 mg - Jeremiah PASTOR Tablet capsule capsule warfarin 3 warfarin 3 2016-03- No [place] hold Unknown mg tablet mg tablet 01-20 Jeremiah PASTOR ,6mg daily ,9mg just on Sat. repeat INR in 2wks warfarin 3 warfarin 3 2016-03- No [place] 9mg Unknown mg tablet mg tablet 01-27 [facility] PASTOR 01/20 ,6mg daily ,9mg just on Sat. repeat INR 1114 warfarin 3 warfarin 3 2016-03- No [place] 6mg Unknown mg tablet mg tablet 03-29 Jeremiah PASTOR daily,9 mg Thursday, repeat INR 1114,1 04/12,,,04/14 ,05/12,,42 4,08/11, 09/08,,11/10 ,12/08,1 warfarin 3 warfarin 3 2016-03- No [facility] 6mg Unknown mg tablet mg tablet 04-12 Jeremiah PASTOR daily,9 mg Thursday, repeat INR 1114,1 04/12,,,04/14 ,05/12,,42 4,08/11, 09/08,,11/10 ,12/08,1 warfarin 3 warfarin 3 2016-03- No [facility] 6mg Unknown mg tablet mg tablet 05-11 Jeremiah PASTOR daily,h old 03/10 9mg Sun,6mg daily repeat INR 1114,1 04/12,,,04/14 ,05/12,,4/2 4,08/11, 09/08,,11/10 ,12/08,1 Ciprodex Ciprodex 2016-03- No [facility] 4 drops Unknown 0.3 %-0.1 % 0.3 %-0.1 % 05-11 [facility] PASTOR 2xd ear ear drops,suspe drops,suspe nsion nsion Ambien 5 mg Ambien 5 mg 2017- No [place] / tab Unknown tablet tablet 04-03 Jeremiah PASTOR warfarin 3 warfarin 3 2017- No [facility] increas Unknown mg tablet mg tablet 04-03 Jeremiah PASTOR 03/24 tab 04/04,6m g daily, 9mg Sun,6mg daily repeat INR 02/03,1 04/12,,,04/14 ,05/12,,06/22 4,08/11, 09/08,,11/10 ,12/08,1 warfarin 3 warfarin 3 2017- No [place] ,6mg Unknown mg tablet mg tablet 04-07 Jeremiah PASTOR daily, 9mg Sun, repeat INR 04/14,,06/09 ,07/14,,08/21 9,10/01, 11/10,,12/22 3 warfarin 3 warfarin 3 2017- No [place] hold Unknown mg tablet mg tablet 04-13 [facility] PASTOR 04/13 2mg 04/14,6m g dailly, 9mg Sun, repeat INR 04/20,,06/09 ,07/14,,08/21 9,10/01, 11/10,,12/22 3 metoprolol metoprolol No [facility] 25mg Unknown tartrate 25 tartrate 25 04-10 Jeremiah PASTOR mg tablet mg tablet Ambien 10 Ambien 10 2017- No [place] 10 mg Unknown mg tablet mg tablet 04-20 Jeremiah PASTOR finasteride finasteride No [place] 1 tab Unknown 5 mg tablet 5 mg tablet 05-18 Jeremiah PASTOR AM warfarin 3 warfarin 3 2017- No [place] hold Unknown mg tablet mg tablet 05-19 Jeremiah PASTOR for 4 days and resume 6mg daily and repeat INR in one week 05/25 or 05/26 warfarin 3 warfarin 3 2017- No [facility] 2-3 Unknown mg tablet mg tablet 05-26 Jeremiah PASTOR tabs cephALEXin cephALEXin 2017- No [facility] 1 cap Unknown 500 mg 500 mg 05-26 Jerem[facility] PASTOR capsule capsule warfarin 3 warfarin 3 2017- No [place] Hold Unknown mg tablet mg tablet 06-01 [facility] PASTOR 06/01,,06/03 then 6mg daily,3 mg 06/06,re peat INR 06/08 or 06/09 warfarin 3 warfarin 3 2017- No [place] 6mg Unknown mg tablet mg tablet 06-08 [facility] PASTOR daily,3 mg 06/13,re peat INR in one week warfarin 3 warfarin 3 2017- No [facility] 6mg Unknown mg tablet mg tablet 06-15 Jeremiah PASTOR daily,3 mg 06/20,re peat INR in one week warfarin 3 warfarin 3 2017- No [place] 6mg Unknown mg tablet mg tablet 06-22 Jeremiah PASTOR qd,3mg on 06/27,rep eat INR on 06/29 or 06/30 warfarin 3 warfarin 3 2017- No [place] 6mg Unknown mg tablet mg tablet 06-29 Jeremiah PASTOR qd,3mg on 07/04,re peat INR on 07/06 or 07/07 warfarin 3 warfarin 3 2017- No [place] 6mg Unknown mg tablet mg tablet 07-14 Jeremiah PASTOR qd,3mg on 07/14 and 07/18,Re peat INR on 07/20 or warfarin 3 warfarin 3 2017- No [facility] hold Unknown mg tablet mg tablet 07-21 Jeremiah PASTOR ,then 6mg daily ,3mg 07/22 and 07/25.Rep eat INR on 07/27 or 07/28 warfarin 3 warfarin 3 2017- No [place] 3mg Unknown mg tablet mg tablet 07-28 Jeremiah PASTOR tues,th urs,sat 6mg mon,wed ,fri and sun,rep eat INR 08/10 or 08/11 Ambien 10 Ambien 10 No [place] 1/2 tab Unknown mg tablet mg tablet - Jeremiah PASTOR warfarin 3 warfarin 3 2017- No [facility] 9mg Unknown mg tablet mg tablet 08-10- Jeremiah PASTOR ,3mg tues,th urs,sat ,6mg mon,wed ,fri,an d sun.Rep eat INR in 2 wks warfarin 3 warfarin 3 2017- No [facility] 6mg Unknown mg tablet mg tablet 08-24- Jeremiah PASTOR M-W-- -Sun,3 mg Tues and Sat repeat on 08/31 or 09/01 cephALEXin cephALEXin 2017- No [place] 1 tab Unknown 500 mg 500 mg 08-29 ,Jeremiah tablet tablet warfarin 3 warfarin 3 2017- No [place] 6mg Unknown mg tablet mg tablet 09-01 ,Jeremiah Sun,3 mg Tues and Sat repeat on 08/31 or 09/01 warfarin 3 warfarin 3 2017- No [facility] 6mg Unknown mg tablet mg tablet 09-07 ,Jeremiah Sun,3 mg Tues Sat repeat INR 09/14 or 09/15 warfarin 3 warfarin 3 2017- No [facility] Unknown Unknown mg tablet mg tablet 09-15 ,Jeremiah warfarin 3 warfarin 3 2017- No [place] Unknown Unknown mg tablet mg tablet 09-29 ,Jeremiah warfarin 3 warfarin 3 2017- No [facility] Unknown Unknown mg tablet mg tablet 10-13 ,Jeremiah hydrOXYzine hydrOXYzine 2017- No [facility] Unknown Unknown HCl 10 mg HCl 10 mg 11-10 ,Jeremiah tablet tablet warfarin 3 warfarin 3 2017- No [facility] Unknown Unknown mg tablet mg tablet 11-11 ,Jeremiah warfarin 3 warfarin 3 2017- No [place] Unknown Unknown mg tablet mg tablet 11-24 Jeremiah PASTOR amoxicillin amoxicillin 2017- No [place] Unknown Unknown 125 mg 125 mg 12-01 ,Jeremiah tablet tablet prednisone prednisone 2017- No [place] Unknown Unknown 20 mg 20 mg 12-01 ,Jeremiah tablet tablet warfarin 3 warfarin 3 2017- No [place] Unknown Unknown mg tablet mg tablet 12-08 ,Jeremiah warfarin 3 warfarin 3 2017-03- No [place] Unknown Unknown mg tablet mg tablet 01-26 ,Jeremiah warfarin 3 warfarin 3 2017-03- No [facility] Unknown Unknown mg tablet mg tablet 03-28 ,Jeremiah warfarin 3 warfarin 3 2017-03- No [place] Unknown Unknown mg tablet mg tablet 04-04 ,Jeremiah warfarin 3 warfarin 3 2017-03- No [place] Unknown Unknown mg tablet mg tablet 04-18 Jeremiah PASTOR warfarin 3 warfarin 3 2017-03- No [place] Unknown Unknown mg tablet mg tablet 04-26 Jerem[facility] PASTOR warfarin 3 warfarin 3 2017-03- No [facility] Unknown Unknown mg tablet mg tablet 04-26 Jeremiah PASTOR atorvastati atorvastati 2017-03 No [place] Unknown Unknown n 40 mg n 40 mg 05-16 Jerem[facility] PASTOR tablet tablet insulin insulin 2017-03- No [place] Unknown Unknown glargine glargine 05-16- [facility] PASTOR (U-100) 100 (U-100) 100 unit/mL unit/mL subcutaneou subcutaneou s solution s solution sennosides sennosides 2017-03- No [place] Unknown Unknown 8.6 mg 8.6 mg 05-16 10 [facility] PASTOR tablet tablet warfarin 3 warfarin 3 2017-03- No [facility] Unknown Unknown mg tablet mg tablet 03-22 Jeremiah PASTOR warfarin 3 warfarin 3 2017-03- No [place] Unknown Unknown mg tablet mg tablet 03-31 Jeremiah PASTOR lisinopril lisinopril 2017-03 No [facility] Unknown Unknown 5 mg tablet 5 mg tablet 05-16 Jeremiah PASTOR omeprazole omeprazole 2017-03- No [facility] Unknown Unknown magnesium magnesium 05-16- Jeremiah PASTOR 20 mg 20 mg tablet,skyler tablet,skyler yed release yed release omeprazole omeprazole 2017-03- No [place] Unknown Unknown magnesium magnesium 05-16 05-14 Jeremiah PASTOR 20 mg 20 mg tablet,skyler tablet,skyler yed release yed release cholecalcif cholecalcif 2017-03 No [place] Unknown Unknown rob rob 05-16 Jeremiah PASTOR (vitamin (vitamin D3) 1,000 D3) 1,000 unit (25 unit (25 mcg) tablet mcg) tablet hydrOXYzine hydrOXYzine 2017-03 No [place] Unknown Unknown HCl 10 mg HCl 10 mg 05-16 Jeremiah PASTOR tablet tablet warfarin 3 warfarin 3 2018- No [facility] Unknown Unknown mg tablet mg tablet 03-31 Jeremiah PASTOR predniSONE predniSONE 2018- No [facility] Unknown Unknown 20 mg 20 mg 03-31 Jeremiah PASTOR tablet tablet phenazopyri phenazopyri 2018- No [facility] Unknown Unknown dine 100 mg dine 100 mg 04-01 ,Jeremiah tablet tablet cephALEXin cephALEXin 2018- No [facility] Unknown Unknown 500 mg 500 mg 04-30 ,Jeremiah capsule capsule warfarin 3 warfarin 3 2018- No [facility] Unknown Unknown mg tablet mg tablet 05-14 ,Jeremiah ciprofloxac ciprofloxac 2018- No [facility] Unknown Unknown in 500 mg in 500 mg 05-14 ,Jeremiah tablet tablet insulin insulin 2018- No [place] Unknown Unknown glargine glargine 05-27 ,Jeremiah (U-100) 100 (U-100) 100 unit/mL unit/mL subcutaneou subcutaneou s solution s solution warfarin 3 warfarin 3 2018- No [facility] Unknown Unknown mg tablet mg tablet 05-31 ,Jeremiah Harristoza 2018- No [place] Unknown Unknown 2-Gurinder 0.6 2-Gurinder 0.6 06-01 ,Jeremiah mg/0.1 mL mg/0.1 mL (18 mg/3 (18 mg/3 mL) mL) subcutaneou subcutaneou s pen s pen injector injector Victoza Victoza No [place] Unknown Unknown 2-Gurinder 0.6 2-Gurinder 0.6 06-09 ,Jeremiah mg/0.1 mL mg/0.1 mL (18 mg/3 (18 mg/3 mL) mL) subcutaneou subcutaneou s pen s pen injector injector mometasone mometasone No [place] Unknown Unknown 220 220 3-18 Jeremiah PASTOR mcg/actuati mcg/actuati on(60 on(60 doses) doses) breath breath activated activated powder powder inhaler inhaler warfarin 3 warfarin 3 2018- No [place] Unknown Unknown mg tablet mg tablet 06-15 04-16 Jeremiah PASTOR warfarin 3 warfarin 3 2018- No [facility] Unknown Unknown mg tablet mg tablet 07-06 05-21 Jeremiah PASTOR cephALEXin cephALEXin 2018- No [facility] Unknown Unknown 500 mg 500 mg 08-03- ,Jeremiah tablet tablet warfarin 3 warfarin 3 2018- No [place] Unknown Unknown mg tablet mg tablet 08-10 ,Jeremiah warfarin 3 warfarin 3 2018- No [place] Unknown Unknown mg tablet mg tablet 08-10 Jeremiah PASTOR omeprazole omeprazole No [facility] Unknown Unknown magnesium magnesium 08-03 MD,Jeremiah 20 mg 20 mg tablet,skyler tablet,skyler yed release yed release warfarin 3 warfarin 3 2018- No [place] Unknown Unknown mg tablet mg tablet 08-31 ,Jeremiah warfarin 3 warfarin 3 2018- No [place] Unknown Unknown mg tablet mg tablet 09-14 ,Jeremiah warfarin 3 warfarin 3 2018- No [facility] Unknown Unknown mg tablet mg tablet 09-29 ,Jeremiah warfarin 3 warfarin 3 2018- Yes [facility] Unknown Unknown mg tablet mg tablet 11-03 ,Jeremiah Augmentin Augmentin 2018- Yes [place] Unknown Unknown 500 mg-125 500 mg-125 12-14 Jeremiah PASTOR mg tablet mg tablet fluconazole fluconazole 2018- Yes [facility] Unknown Unknown 100 mg 100 mg 12-14 Jeremiah PASTOR tablet tablet warfarin 3 warfarin 3 2018- Yes [place] Unknown Unknown mg tablet mg tablet 12-14 ,Jeremiah warfarin 3 warfarin 3 2018-03- Yes [place] Unknown Unknown mg tablet mg tablet 01-09 Jeremiah PASTOR carbamide carbamide 2018-03 Yes [place] Unknown Unknown peroxide peroxide 0- Jeremiah PASTOR 6.5 % ear 6.5 % ear drops drops cephALEXin cephALEXin 2018-03- Yes [place] Unknown Unknown 500 mg 500 mg 01-25 Jeremiah PASTOR capsule capsule doxycycline doxycycline 2018-03- Yes [facility] Unknown Unknown monohydrate monohydrate 01-25 Jeremiah PASTOR 100 mg 100 mg capsule capsule Eliquis 5 Eliquis 5 2018-03 Yes [facility] Unknown Unknown mg tablet mg tablet 0- Jeremiah PASTOR oxyCODONE 5 oxyCODONE 5 2018-03 Yes [place] Unknown Unknown mg tablet mg tablet 0- Jeremiah Lasix 20 mg Lasix 20 mg 2018-03 Yes [place] Unknown Unknown tablet tablet 0-20 Jeremiah PASTOR insulin insulin 2018-03 Yes [place] Unknown Unknown glargine glargine 0-20 MDJeremiah (U-100) 100 (U-100) 100 unit/mL unit/mL subcutaneou subcutaneou s solution s solution sennosides sennosides 2018-03 Yes [facility] Unknown Unknown 8.6 mg 8.6 mg 0-20 MDJeremiah tablet tablet carboxymeth carboxymeth 2018-03 Yes [facility] Unknown Unknown ylcellulose ylcellulose 0-20 MD,Jeremiah 1 1 %-glycerin %-glycerin 0.9 % eye 0.9 % eye gel drops gel drops Vital Signs Vital Name Observation Time Observation Value Comments SYSTOLIC mm[Hg] 2019-01-27 18:08:44 118 mm[Hg] mm[Hg] Method: Sit SYSTOLIC mm[Hg] 2017-07-21 17:59:29 138 mm[Hg] mm[Hg] Method: Stand SYSTOLIC mm[Hg] 2016-01-22 17:50:23 140 mm[Hg] mm[Hg] Method: Lie DIASTOLIC mm[Hg] 2019-01-27 18:08:44 80 mm[Hg] mm[Hg] Method: Sit DIASTOLIC mm[Hg] 2017-07-21 17:59:29 87 mm[Hg] mm[Hg] Method: Stand DIASTOLIC mm[Hg] 2016-01-22 17:50:23 80 mm[Hg] mm[Hg] Method: Lie PULSE 2019-01-27 18:08:44 70 /min /min RESP RATE 2019-01-27 18:08:44 18 /min /min TEMP 2019-01-27 18:08:44 98 [degF] Procedures This patient has no known procedures. Results This patient has no known results.
--- OUTSIDE RECORDS SUMMARY | 2019-02-02 22:31 | XMS REPORT | Continuity of Care Document ---
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 Problems Description No Information Available Social History Type Date Description Comments Sex Unknown Allergies, Adverse Reactions, Alerts Description No Information Available Medications Description No Information Available Immunizations Description No Information Available Vital Signs Description No Information Available Results Description No Information Available Procedures Description No Information Available Medical Devices Description No Information Available Encounters Type Date Location Provider Dx Diagnosis Office Visit 12/30/2018 [facility] Natanael [id number] Pain in left 12:22p at [place] M.DGlenn toe(s) S91.115A Lac w/o fb of left lesser toe(s) w/o damage to nail, init R07.9 Chest pain, unspecified Office Visit 10/20/2018 10:42a [facility] Jonelle Quinn, R[facility] Hospitalists Assessments Date Code Description Provider 12/30/2018 [id number] Pain in left toe(s) Patricia Montana M.D. 12/30/2018 S91.115A Laceration without foreign body of left Patricia Montana M.D. lesser toe(s) without damage to nail, initial encounter 12/30/2018 R07.9 Chest pain, unspecified Patricia Montana M.D. 10/20/2018 [facility] Jonelle Quinn M.D. Plan of Treatment No Information Available Functional Status Description No Information Available Mental Status Description No Information Available Referrals Description No Information Available
--- OUTSIDE RECORDS SUMMARY | 2019-02-02 22:31 | XMS REPORT | Continuity of Care Document ---
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 Problems Active Problems Provider Date Gangrenous disorder Carlos Reynolds MD Onset: 01/06/2019 Chronic osteomyelitis of ankle and/or foot Carlos Reynolds MD Onset: 2018 Social History Type Date Description Comments Sex Unknown ETOH Use Denies alcohol use Tobacco Use Start: Unknown Patient has never smoked Smoking Status Reviewed: 01/21/19 Patient has never smoked Exercise Type/Frequency Does not exercise Allergies, Adverse Reactions, Alerts Description No Information Available Medications Active Medications SIG Qnty Indications Ordering Date Provider Oxycodone HCL 1 po q 4 hrs prn Unknown 5mg Capsules Metoprolol Tartrate 1 by mouth twice a Unknown 25mg day Tablets Lantus 20 units sq q 12 Unknown 100Unit/ML hrs Solution Cephalexin twice daily Unknown 500mg Capsules Furosemide 1 by mouth bid Unknown 20mg Tablets Doxycycline Hyclate 1 by mouth twice a Unknown 100mg day Tablets Eliquis 1 tab by mouth Unknown 2.5mg Tablets twice a day Acetaminophen Extra 2 tabs by mouth Unknown Strength every 8 hours as 500mg Tablets needed for pain or fever Zolpidem Tartrate 1 by mouth tablet Unknown 5mg at bedtime as Tablets needed Sertraline HCL 1 by mouth every Unknown 100mg day Tablets Senna take 2 tablets by Unknown 8.6mg Tablets mouth twice a day as needed Omeprazole 1 by mouth every Unknown 20mg Capsules day DR Mometasone Furoate spray two sprays in Unknown each nostril twice 50mcg/Act Suspension daily Lisinopril 1 by mouth every Unknown 5mg Tablets day Victoza inject 1.2 mg daily Unknown 18mg/3ML Solution Pen-Inject Hydroxyzine HCL 1 by mouth 3 times Unknown 10mg a day for itching Tablets or anxiety Robitussin 12 Hour 5ml q 4 hrs prn Unknown Cough Relief cough 30mg/5ML Suer Proscar 1 by mouth every Unknown 5mg Tablets day Vitamin D-1000 Maximum take one Unknown Strength capsule/tablet 25mcg (1000 Ut) daily by mouth Tablets Atorvastatin Calcium 1 by mouth every Unknown 40mg day Tablets Aspirin 81 1 by mouth every Unknown 81mg Tablets day DR Ortez HFA 1 to 2 inhalations Unknown 108(90Base) every 4 hours as mcg/Act Aerosol needed Immunizations Description No Information Available Vital Signs Date Vital Result Comment 01/21/2019 1:51pm Heart Rate 84 /min BP Systolic 126 mmHg BP Diastolic 84 mmHg Respiratory Rate 22 /min Body Temperature 97.0 F Pain Level 5 Results Description No Information Available Procedures Date Code Description Status 01/06/2019 59512 Amputation Metatarsal W/Toe Completed 01/06/2019 72476 Amputation Metatarsal W/Toe Completed 01/03/2019 04773 ECHO Transthorasic Realtime 2D W Doppler & Color Flow Hosp Completed Medical Devices Description No Information Available Encounters Type Date Location Provider Dx Diagnosis Office Visit 01/09/2019 [facility] Arian D. 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) [facility]:22p andra Cho M.D.,[facility] obstructive Hospitalists pulmonary disease w (acute) exacerbation J96.21 Acute and chronic respiratory failure with hypoxia E11.9 Type 2 diabetes mellitus without complications 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) [facility] 1:21p andra Cho M.D.,[facility] obstructive Hospitalists pulmonary disease w (acute) exacerbation J96.21 Acute and chronic respiratory failure with hypoxia E11.65 Type 2 diabetes mellitus with hyperglycemia L03.032 Cellulitis of left toe Office Visit 01/06/2019 [facility] Manisha Sam E11.52 Type 2 diabetes 1:50p For Infectious Black, SALES MGR w diabetic Diseases peripheral angiopathy w gangrene E11.22 Type 2 diabetes mellitus w diabetic chronic kidney disease N18.4 Chronic kidney disease, stage 4 (severe) 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 J44.1 Chronic 1:21p andra Cho M.D.,[facility] obstructive Hospitalists pulmonary disease w (acute) exacerbation J96.21 Acute and chronic respiratory failure with hypoxia L03.032 Cellulitis of left toe Office Visit 01/04/2019 9:00a [facility] Manisha Sam L97.528 Non- prs chronic [facility] Black, SALES MGR ulcer oth prt left foot with oth severity E11.621 Type 2 diabetes mellitus with foot ulcer S91.115A Lac w/o fb of left lesser toe(s) w/o damage to nail, init M86.672 Other chronic osteomyelitis, left ankle and foot E66.9 Obesity, unspecified Office Visit 01/03/2019 [facility] Arian Pete J44.1 Chronic 1:20p Assoc,andra Sr M.D.,FACP obstructive Hospitalists pulmonary disease w (acute) exacerbation J96.21 Acute and chronic respiratory failure with hypoxia Office Visit 01/03/2019 1:46p [facility] Precious Pete E11.52 Type 2 diabetes Infectious Mundo Perez w diabetic Diseases peripheral angiopathy w gangrene L03.032 Cellulitis of left toe J96.11 Chronic respiratory failure with hypoxia I35.0 Nonrheumatic aortic (valve) stenosis Office Visit 01/02/2019 1:20p [facility] Symonesusan Howard, J44.1 Chronic Assoc,andra PASTOR obstructive Hospitalists pulmonary disease w (acute) exacerbation J96.21 Acute and chronic respiratory failure with hypoxia L03.032 Cellulitis of left toe Office Visit 01/01/2019 1:20p [facility] Symonesusan Howard, J44.1 Chronic Assoc,andra PASTOR obstructive Hospitalists pulmonary disease w (acute) exacerbation J96.21 Acute and chronic respiratory failure with hypoxia M79.675 Pain in left toe(s) Office Visit 12/31/2018 1:19p [facility] Symone Dill, J44.1 Chronic Assoc,andra PASTOR obstructive Hospitalists pulmonary disease w (acute) exacerbation J96.21 Acute and chronic respiratory failure with hypoxia M79.675 Pain in left toe(s) R79.1 Abnormal coagulation profile Office Visit 12/30/2018 1:19p [facility] Symone Dill, J44.1 Chronic Assoc,andra PASTOR obstructive Hospitalists pulmonary disease w (acute) exacerbation S91.105A Unsp opn wnd left lesser toe(s) w/o damage to nail, init Z99.81 Dependence on supplemental oxygen Office Visit 12/30/2018 12:22p [facility] Patricia Napoleske, M79.675 Pain in left at [place] M.D. toe(s) S91.115A Lac w/o fb of left lesser toe(s) w/o damage to nail, init R07.9 Chest pain, unspecified Office Visit 10/20/2018 10:42a [facility] Jonelle Quinn, R55 Syncope and Assoc,pc Mundo collapse Hospitalists Assessments Date Code Description Provider 01/21/2019 M86.672 Other chronic osteomyelitis, left Carlos Reynolds MD ankle and foot 01/21/2019 I96 Gangrene, not elsewhere classified Carlos Reynolds MD 01/09/2019 J44.1 Chronic obstructive pulmonary Arian Sr M.D.,FACP disease with (acute) exacerbation 01/09/2019 J96.21 Acute and chronic respiratory Arian Sr M.D.,FACP failure with hypoxia 01/09/2019 M86.672 Other chronic osteomyelitis, left Arian Sr M.D. ,FACP ankle and foot 01/09/2019 Z89.422 Acquired absence of other left Arian Sr M.D., FACP toe(s) 01/08/2019 J44.1 Chronic obstructive pulmonary Arian Sr M.D.,FACP disease with (acute) exacerbation 01/08/2019 J96.21 Acute and chronic respiratory Arian Sr M.D.,FACP failure with hypoxia 01/08/2019 Z89.422 Acquired absence of other left Arian Sr M.D., FACP toe(s) 01/07/2019 J44.1 Chronic obstructive pulmonary Arian Sr M.D.,FACP disease with (acute) exacerbation 01/07/2019 J96.21 Acute and chronic respiratory Arian Sr M.D.,FACP failure with hypoxia 01/07/2019 E11.9 Type 2 diabetes mellitus without Arian Sr M.D., FACP complications 01/07/2019 Z89.422 Acquired absence of other left Arian Sr M.D., FACP toe(s) 01/06/2019 J44.1 Chronic obstructive pulmonary Arian Sr M.D.,FACP disease with (acute) exacerbation 01/06/2019 E11.52 Type 2 diabetes mellitus with Manisha Black NP diabetic peripheral angiopathy with gangrene 01/06/2019 J96.21 Acute and chronic respiratory Arian Sr M.D.,FACP failure with hypoxia 01/06/2019 E11.22 Type 2 diabetes mellitus with Manisha Black NP diabetic chronic kidney disease 01/06/2019 E11.65 Type 2 diabetes mellitus with Arian Sr M.D.,FACP hyperglycemia 01/06/2019 I96 Gangrene, not elsewhere classified Sussy Gonzáles RPA-C 01/06/2019 L03.032 Cellulitis of left toe Arian Sr M.D.,FACP 01/06/2019 N18.4 Chronic kidney disease, stage 4 Manisha Black NP (severe) 01/06/2019 I96 Gangrene, not elsewhere classified Carlos Reynolds MD 01/06/2019 Z89.422 Acquired absence of other left Manisha Black NP toe(s) 01/06/2019 M86.672 Other chronic osteomyelitis, left Sussy Gonzáles RPA-C ankle and foot 01/06/2019 M86.672 Other chronic osteomyelitis, left Carlos Reynolds MD ankle and foot 01/05/2019 J44.1 Chronic obstructive pulmonary Arian Sr M.D.,FACP disease with (acute) exacerbation 01/05/2019 J96.21 Acute and chronic respiratory Arain Sr M.D.,FACP failure with hypoxia 01/05/2019 E11.65 Type 2 diabetes mellitus with Arian Sr M.D.,FACP hyperglycemia 01/05/2019 E11.52 Type 2 diabetes mellitus with Alexandro Perez M.D. diabetic peripheral angiopathy with gangrene 01/05/2019 I11.0 Hypertensive heart disease with Arian Sr M.D., FACP heart failure 01/05/2019 I50.30 Unspecified diastolic (congestive) Arian Sr M.D. ,FACP heart failure 01/05/2019 L03.032 Cellulitis of left toe Alexandro Perez M.D. 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 01/05/2019 E11.22 Type 2 diabetes mellitus with Alexandro Perez M.D. diabetic chronic kidney disease 01/05/2019 N18.4 Chronic kidney disease, stage 4 Alexandro Perez M.D. (severe) 01/05/2019 E11.40 Type 2 diabetes mellitus with Alexandro Perez M.D. diabetic neuropathy, unspecified 01/04/2019 J44.1 Chronic obstructive pulmonary Arian Sr M.D.,FACP disease with (acute) exacerbation 01/04/2019 L97.528 Non-pressure chronic ulcer of other Manisha Black NP part of left foot with other specified severity 01/04/2019 E11.621 Type 2 diabetes mellitus with foot Manisha Black NP ulcer 01/04/2019 J96.21 Acute and chronic respiratory Arian Sr M.D.,FACP failure with hypoxia 01/04/2019 S91.115A Laceration without foreign body of Manisha Black NP left lesser toe(s) without damage to nail, initial encounter 01/04/2019 L03.032 Cellulitis of left toe Arian Sr M.D.,FACP 01/04/2019 M86.672 Other chronic osteomyelitis, left Manisha Black NP ankle and foot 01/04/2019 E66.9 Obesity, unspecified Manisha Black NP 01/03/2019 J44.1 Chronic obstructive pulmonary Arian Sr M.D.,FACP disease with (acute) exacerbation 01/03/2019 J96.21 Acute and chronic respiratory Arian Sr M.D.,FACP failure with hypoxia 01/03/2019 I35.0 Nonrheumatic aortic (valve) stenosis Kali Chapman M.D. 01/03/2019 E11.52 Type 2 diabetes mellitus with Alexandro Perez M.D. diabetic peripheral angiopathy with gangrene 01/03/2019 L03.032 Cellulitis of left toe Alexandro Perez M.D. 01/03/2019 J96.11 Chronic respiratory failure with Alexandro Perez M.D. hypoxia 01/03/2019 I35.0 Nonrheumatic aortic (valve) stenosis Alexandro Perez M.D. 01/02/2019 J44.1 Chronic obstructive pulmonary Symone Howard MD disease with (acute) exacerbation 01/02/2019 J96.21 Acute and chronic respiratory Symone Howard MD failure with hypoxia 01/02/2019 L03.032 Cellulitis of left toe Symone Howard MD 01/01/2019 J44.1 Chronic obstructive pulmonary Symone Howard MD disease with (acute) exacerbation 01/01/2019 J96.21 Acute and chronic respiratory Symone Howard MD failure with hypoxia 01/01/2019 M79.675 Pain in left toe(s) Symone Howard MD 12/31/2018 J44.1 Chronic obstructive pulmonary Symone Howard MD disease with (acute) exacerbation 12/31/2018 J96.21 Acute and chronic respiratory Symone Howard MD failure with hypoxia 12/31/2018 M79.675 Pain in left toe(s) Symone Howard MD 12/31/2018 R79.1 Abnormal coagulation profile Symone Howard MD 12/30/2018 J44.1 Chronic obstructive pulmonary Symone Howard MD disease with (acute) exacerbation 12/30/2018 M79.675 Pain in left toe(s) Patricia Montana M.D. 12/30/2018 S91.105A Unspecified open wound of left Symone Howard MD lesser toe(s) without damage to nail, initial encounter 12/30/2018 S91.115A Laceration without foreign body of Patricia Montana M.D. left lesser toe(s) without damage to nail, initial encounter 12/30/2018 Z99.81 Dependence on supplemental oxygen Symone Howard MD 12/30/2018 R07.9 Chest pain, unspecified Patricia Montana M.D. 10/20/2018 R55 Syncope and collapse Jonelle Quinn M.D. Plan of Treatment Future Appointment(s):01/31/2019 2:30 pm - Carlos Reynolds MD at [facility]/24/2019 1:00 pm - Alexandro Perez M.D. at [facility]/01/2019 - Carlos Reynolds, MDM86.672 Other chronic osteomyelitis, left ankle and footFollow up:Follow Up: 1 weekI96 Gangrene, not elsewhere classified Functional Status Description No Information Available Mental Status Description No Information Available Referrals Description No Information Available
--- OUTSIDE RECORDS SUMMARY | 2019-02-02 22:31 | XMS REPORT | Continuity of Care Document ---
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 12/30/2018 S91.115A Laceration without foreign body of left Patricia Montana M.D. lesser toe(s) without damage to nail, initial encounter 12/30/2018 R07.9 Chest pain, unspecified Patricia Montana M.D. 10/20/2018 R55 Syncope and collapse Jonelle Quinn M.D. Plan of Treatment Future Appointment(s):01/06/2019 11:30 am - [facility] [place] [facility]01/06/2019 11:30 am - Carlos Reynolds MD at [facility] [place] Functional Status Description No Information Available Mental Status Description No Information Available Referrals Description No Information Available
--- NOTE | 2019-02-02 22:43 | ED ---
Syncope/Near Syncope - HPI Summary HPI Summary: Patient is an 83 y/o M presenting to [facility] via EMS with complaints of LOC and head injury. He was on the toilet earlier today, 02/02/19. When he stood up, he became dizzy/light-headed and subsequently fell. He injured his head and experienced LOC. Patient is on blood thinners. He also reports neck pain and SOB. Chest pain is denied. On triage, pain is rated 5/10, nothing is noted to aggravate/alleviate Sx. Home medications and allergies are reviewed. - History Of Current Complaint Chief Complaint: EDSyncope Time Seen by Provider: 02/02/19 21:53 Hx Obtained From: Patient Onset/Duration: Resolved Timing: Intermittent Episode Lasting Context: Loss Of Consciousness Activity At Onset: Other - standing up Associated Head Trauma: Yes Aggravating Factor(s): Nothing Alleviating Factor(s): Nothing Associated Signs And Symptoms: Shortness Of Breath, Other - positive - neck pain ; negative - chest pain - Allergies/Home Medications Allergies/Adverse Reactions: Allergies Allergy/AdvReac Type Severity Reaction Status Date / Time nitroglycerin Allergy Severe Anaphylatic Verified 02/02/19 21:54 Shock levofloxacin Allergy Intermediate Itching Verified 02/02/19 21:54 Iodinated Contrast Media AdvReac Severe Altered Verified 02/02/19 21:54 [Iodinated Contrast- Oral Mental and IV Dye] Status Home Medications: Home Medications oxyCODONE TAB* [Roxycodone TAB 5 mg*] 5 mg PO QID PRN 02/02/19 [History Confirmed 02/02/19] PMH/Surg Hx/FS Hx/Imm Hx Endocrine/Hematology History: Reports: Hx Anticoagulant Therapy, Hx Blood Transfusions, Hx Diabetes, Hx Anemia Denies: Hx Blood Disorders, Hx Bone Marrow Disease, Hx Systemic Lupus Erythematosus, Hx Sickle Cell Disease, Hx Thyroid Disease, Hx Unexplained Bleeding Cardiovascular History: Reports: Hx Angina, Hx Angioplasty, Hx Cardiac Arrest - 03/05/14, Hx Congestive Heart Failure, Hx Coronary Artery Disease, Hx Deep Vein Thrombosis, Hx Hypercholesterolemia, Hx Hypertension, Hx Myocardial Infarction, Hx Syncope, Hx Valvular Heart Disease Denies: Hx Aneurysm, Hx Auto Implanted Cardiovert Defib, Hx Cardiomegaly, Hx Congenital Heart Disease, Hx Hypotension, Hx Pacemaker/ICD, Hx Peripheral Vascular Disease, Hx Rheumatic Fever, Other Cardiovascular Problems/Disorders Respiratory History: Reports: Hx Chronic Bronchitis, Hx Chronic Obstructive Pulmonary Disease (COPD), Hx Pleural Effusion, Hx Pneumonia, Hx Pulmonary Edema , Hx Sleep Apnea - CPAP, Other Respiratory Problems/Disorders - Bronchitis Denies: Hx Asthma, Hx Cystic Fibrosis, Hx Lung Cancer, Hx Pulmonary Embolism , Hx Seasonal Allergies GI History: Reports: Hx Gastroesophageal Reflux Disease, Hx Hiatal Hernia, Hx Obstructive Bowel Denies: Hx Cirrhosis, Hx Crohn's Disease, Hx Diverticulosis, Hx Gall Bladder Disease, Hx Gastrointestinal Bleed, Hx Irritable Bowel, Hx Jaundice, Hx Ileostomy, Hx Pyloric Stenosis, Hx Ulcer, Other GI Disorders History: Reports: Hx Benign Prostatic Hyperplasia, Hx Kidney Infection Denies: Hx Acute Renal Failure, Hx Chronic Renal Failure, Hx Dialysis, Hx Kidney Stones, Other Problems/Disorders Musculoskeletal History: Reports: Hx Arthritis, Hx Back Problems, Other Musculoskeletal History - BLE weakness hx CVA, uses scooter at home Denies: Hx Bursitis, Hx Congenital Bone Abnormalities, Hx Fibromyalgia, Hx Gout, Hx Orthopedic Injury, Hx Osteoporosis, Hx Scoliosis, Hx Tendonitis Sensory History: Reports: Hx Cataracts - due for sx, Hx Contacts or Glasses, Hx Vision Problem, Hx Hearing Aid - at home, Hx Hearing Problem Denies: Hx Eye Injury, Hx Eye Prosthesis, Hx Glaucoma, Hx Legally Blind, Hx Macular Degeneration, Hx Deafness, Other Sensory Impairments Opthamlomology History: Reports: Hx Cataracts - due for sx, Hx Contacts or Glasses, Hx Vision Problem Denies: Hx Eye Injury, Hx Eye Prosthesis, Hx Glaucoma, Hx Legally Blind, Hx Macular Degeneration, Other Sensory Impairments Neurological History: Reports: Hx CVA, Hx Seizures, Hx Transient Ischemic Attacks (TIA) Denies: Hx Dementia, Hx Developmental Delay, Hx Headaches, Hx Migraine, Hx Nerve Disease, Hx Spinal Cord Injury, Other Neuro Impairments/Disorders Psychiatric History: Reports: Hx Anxiety, Hx Depression - He thinks about the of his and son often., Hx Post Traumatic Stress Disorder, Other Psychiatric Issues/Disorders - Had one episode of emotional shock, but no depression etc since. Denies: Hx Attention Deficit Hyperactivity Disorder, Hx Eating Disorder, Hx Panic Disorder, Hx Inpatient Treatment, Hx Community Mental Health Tx, Hx Schizophrenia, Hx Bipolar Disorder, Hx Suicide Attempt, Hx of Violent Episodes Against Others, Hx Substance Abuse - Cancer History Cancer Type, Location and Year: Skin cancer on scalp - Surgical History Surgery Procedure, Year, and Place: Bypass 2008. hernia 1957. left shoulder sx in [place] in 1965. CABG. 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 Denies: Hx Clostridium Difficile, Hx Hepatitis, Hx Human Immunodeficiency Virus (HIV), Hx Shingles, Hx Tuberculosis, Hx Known/Suspected VRE, History Other Infectious Disease, Traveled Outside the [place] in Last 30 Days - Family History Known Family History: Positive: Cardiac Disease, Diabetes, Other - uterine CA, colon CA - Social History Alcohol Use: None Hx Substance Use: No Substance Use Type: Reports: None Hx Tobacco Use: No Smoking Status (MU): Never Smoked Tobacco Have You Smoked in the Last Year: No Review of Systems - ROS Summary Review of Systems Summary: Home Medications oxyCODONE TAB* [Roxycodone TAB 5 mg*] 5 mg PO QID PRN 02/02/19 [History Confirmed 02/02/19] Negative: Chest Pain Positive: Shortness Of Breath Musculoskeletal: Other - positive - neck pain Neurological: Other - positive - dizziness/light-headedness, head injury Positive: Syncope - with LOC All Other Systems Reviewed And Are Negative: Yes Physical Exam - Summary Physical Exam Summary: General: Well-developed, Obese Male. No acute distress. HEENT: Normocephalic, Atraumatic. Eyes: Conjuctiva normal, PERRL. Ears: TMs within normal limits. Nares: (-) discharge, (-) erythema. Oropharynx: Clear, mucous membranes moist, (-) exudates. Neck: Soft, FROM, (-) lymphadenopathy, (-) thyromegaly, (-) JVD. Cardiovascular: Normal sinus rhythm, (-) murmur. Lungs: Clear to auscultation bilaterally (-) wheezes, (-) rales, (-) rhonchi. Abdomen: Soft, non-tender, non-distended, (-) organomegaly, normal bowel sounds. Back: (-) CVA tenderness Extremities: No edema. Skin: Warm, dry, (-) rash. Neuro: Alert and oriented x3, no focal deficits. He is capable of speaking but it is difficult to understand him. This is not new. GCS 15. Psychiatric: Mood normal, affect normal. Triage Information Reviewed: Yes Vital Signs On Initial Exam: Initial Vitals Temp Pulse Resp BP Pulse Ox 98.7 F 96 22 104/76 91 02/02/19 21:15 02/02/19 21:15 02/02/19 21:15 02/02/19 21:15 02/02/19 21:15 Vital Signs Reviewed: Yes - [place] Coma Scale Best Eye Response: 4 - Spontaneous Best Motor Response: 6 - Obeys Commands Best Verbal Response: 5 - Oriented Coma Scale Total: 15 Procedures - Sedation Patient Received Moderate/Deep Sedation with Procedure: No Diagnostics - Vital Signs Vital Signs Temp Pulse Resp BP Pulse Ox 02/02/19 21:28 98 10 173/91 97 02/02/19 21:26 101 31 74 02/02/19 21:15 98.7 F 96 22 104/76 91 - Laboratory Result Diagrams: 02/03/19 00:49 02/03/19 02:54 Lab Statement: Any lab studies that have been ordered have been reviewed, and results considered in the medical decision making process. - Radiology CXR Radiology Interpretation Completed By: ED Physician Summary of Radiographic Findings: Increased interstitial markings, no sigificant change compared to CXR done 12/30/18, pending official report. - CT CERVICAL SPINE CT CT Interpretation Completed By: Radiologist Summary of CT Findings: IMPRESSION: Patient motion without definite acute cervical spine fracture. THIS REPORT WAS REVIEWED BY DR. HUBBARD. BRAIN CT CT Interpretation Completed By: Radiologist Summary of CT Findings: IMPRESSION: Patient motion without definite acute intracranial abnormality. THIS REPORT WAS REVIEWED BY DR. HUBBARD. - EKG 6 Cardiac Rate: Other Rate - accelerated junctional rhythm with rate of 97 BPM Summary of EKG Findings: EKG showed accelerated junctional rhythm with rate of 97 BPM, no acute changes from EKG done 01/05/19. No STEMI. This EKG was reviewed and interpreted by Dr. Hubbard. Re-Evaluation - Re-Evaluation First Eval Re-Evaluation Time: 01:33 Comment: Aware of trop of 0.04. Second Eval Re-Evaluation Time: 01:36 Comment: Straight catheter has been placed in order to obtain urine. Third Eval Re-Evaluation Time: 05:01 Comment: At this time, patient reports that he is SOB and wants to be admitted. Patient had removed his o2 and his o2 sats dropped to 86%. o2 was replaced and patient improved to 94%. Course/Dx Course Of Treatment: During ED course, patient received fluids. Bloodwork was obtained. Abnormal values include trop 0.04, Hgb 13.2, Hct 41, absolute lymphs 0.8, INR 1.72, creatinine 1.2, glucose 256, calcium 8.5, alk phos 151, BNP 677, magnesium 1.7. Second trop was 0.03. Urine was of a turbid appearance and UA showed 1+ protein, 2+ blood, 3+ leukocyte esterase, 3+ WBC, 3+ RBC, yeast present, and 1+ glucose. ABG showed pH 7.41, pCO2 36, pO2 70, HCO3 23.7, o2 sat 95, base excess -1.4 - Diagnoses Provider Diagnoses: Fall, Neck pain, Elevated troponin, Elevated brain natriuretic peptide (BNP) level Discharge ED - Sign-Out/Discharge Documenting (check all that apply): Patient Departure - discharge - Discharge Plan Condition: Stable Disposition: HOME Patient Education Materials: Fall Prevention for Older Adults (ED), Neck Pain ( ED) Referrals: Jeremiah Ruano MD [Primary Care Provider] - 3 Days Additional Instructions: Please follow up with your primary care physician within three days. Please return to ED for any new or worsening symptoms. - Billing Disposition and Condition Condition: STABLE Disposition: Home - Attestation Statements Document Initiated by Mauricio: Yes Documenting Marthaibe: MIKE RADFORD Provider For Whom Mauricio is Documenting (Include Credential): RIVERA HUBBARD MD Scribe Attestation: MIKE Mack, scribed for RIVERA HUBBARD MD on 02/06/19 at 1932. Scribe Documentation Reviewed: Yes Provider Attestation: The documentation as recorded by the MIKE couch accurately reflects the service I personally performed and the decisions made by me, RIVERA HUBBARD MD Status of Scribe Document: Viewed
[2019-02-02] MEDS: NS 0.9% 1000 ML** 1,000 ML IV ONE (22:50)
[2019-02-03 01:04] LABS: INR 1.72 (0.82-1.09)
[2019-02-03 01:07] LABS: ABS Eosinophils 0.1 10^3/ul (0-0.6); ABS Lymphocytes 0.8 10^3/ul (1.0-4.8); ABS Monocytes 0.4 10^3/ul (0-0.8); ABS Neutrophils 5.5 10^3/ul (1.5-7.7); Hematocrit 41 % (42-52); Hemoglobin 13.2 g/dL (14.0-18.0); Lymphocyte % 11.3 %; Mean Corpuscular HGB Conc 33 g/dL (31-36); Mean Corpuscular Hemoglobin 27 pg (27-31); Mean Corpuscular Volume 84 fL (80-94); Mean Platelet Volume 8.4 fL (7.4-10.4); Platelet Count 158 10^3/uL (150-450); Red Blood Count 4.82 10^6 /uL (4.18-5.48); Red Cell Distribution Width 17 % (10-15); White Blood Count 6.8 10^3/uL (3.5-10.8)
[2019-02-03 01:23] LABS: ALT 16 U/L (7-52); Albumin 3.7 g/dL (3.2-5.2); Albumin/Globulin Ratio 1.2 (1-3); Alkaline Phosphatase 151 U/L (34-104); BUN/Creatinine Ratio 19.2 (8-20); Blood Urea Nitrogen 23 mg/dL (6-24); CO2 Carbon Dioxide 24 mmol/L (22-32); Calcium 8.5 mg/dL (8.6-10.3); Chloride 108 mmol/L (101-111); EGFR African American 70.3 (>60); EGFR Non-African American 58.1 (>60); Globulin 3.2 g/dL (2-4); Glucose 256 mg/dL (70-100); Sodium 138 mmol/L (135-145); Total Protein 6.9 g/dL (6.4-8.9)
[2019-02-03 01:28] LABS: Troponin I 0.04 ng/mL (<0.04)
[2019-02-03 01:49] LABS: Urine Appearance Turbid; Urine Bacteria Absent (Absent); Urine Bilirubin Negative (Negative); Urine Blood 2+ (Negative); Urine Color Amber; Urine Glucose 1+(50 mg/dL) (Negative); Urine Ketones Negative (Negative); Urine Nitrite Negative (Negative); Urine Protein 1+(30 mg/dL) (Negative); Urine Red Blood Cell 3+(>10/hpf) (Absent); Urine Specific Gravity 1.011 (1.010-1.030); Urine Urobilinogen Negative (Negative); Urine White Blood Cell 3+(>20/hpf) (Absent)
[2019-02-03 01:58] LABS: Anion Gap 6 mmol/L (2-11)
[2019-02-03 02:06] LABS: TSH (Thyroid Stimulating Horm) 4.46 mcIU/mL (0.34-5.60)
[2019-02-03 03:17] LABS: Magnesium 1.7 mg/dL (1.9-2.7); Potassium Redraw 3.7 mmol/L (3.5-5.0)
[2019-02-03 03:19] LABS: Troponin I 0.03 ng/mL (<0.04)
[2019-02-03 09:42] VITALS: BP 108/65
--- NOTE | 2019-02-03 11:32 | ED ---
Imaging and Labs Follow Up Follow Up Type: Imaging Labs/Culture Result: Findings on chest x-ray suggestive of congestive heart failure Imaging Result: CHF Patient Communication/Plan: Patient has current diagnosis of CHF, nothing further required Provider Diagnoses: Fall, Neck pain, Elevated troponin, Elevated brain natriuretic peptide (BNP) level
--- NOTE | 2019-02-06 07:32 | ED ---
Imaging and Labs Follow Up Follow Up Type: Labs/Cultures Labs/Culture Result: patient colonized héctor glabrata patient was asymptomatic of this during ED visit Patient often colonizes d/t catheter placement typically this organism will only cause complications in immunocompromized individuals Patient afebrile and otherwise well Patient Communication/Plan: héctor glab Patient Communication/Plan: no further treatment required Provider Diagnoses: Fall, Neck pain, Elevated troponin, Elevated brain natriuretic peptide (BNP) level
== END 2019-02-03 09:01 | disposition home or self-care (01) ==
LOC: ED 21:05
DX: M54.2 Cervicalgia (principal); R79.89 Other specified abnormal findings of blood chemistry; R79.0 Abnormal level of blood mineral; I50.9 Heart failure, unspecified; W19.XXXA Unspecified fall, initial encounter; Y92.002 Bathroom of unspecified non-institutional (private) residence as the place of occurrence of the external cause; E11.9 Type 2 diabetes mellitus without complications; D64.9 Anemia, unspecified; I25.10 Atherosclerotic heart disease of native coronary artery without angina pectoris; E78.00 Pure hypercholesterolemia, unspecified; I11.0 Hypertensive heart disease with heart failure; I25.2 Old myocardial infarction; J44.9 Chronic obstructive pulmonary disease, unspecified; K21.9 Gastro-esophageal reflux disease without esophagitis; N40.0 Benign prostatic hyperplasia without lower urinary tract symptoms; F41.9 Anxiety disorder, unspecified; F32.9 Major depressive disorder, single episode, unspecified; F43.10 Post-traumatic stress disorder, unspecified; Z86.73 Personal history of transient ischemic attack (TIA), and cerebral infarction without residual deficits; Z86.74 Personal history of sudden cardiac arrest; Z86.718 Personal history of other venous thrombosis and embolism; Z95.1 Presence of aortocoronary bypass graft; Z79.01 Long term (current) use of anticoagulants; Z88.8 Allergy status to other drugs, medicaments and biological substances; Z88.1 Allergy status to other antibiotic agents; Z91.041 Radiographic dye allergy status
CPT/HCPCS: 36415; 70450; 71045; 72125; 80053; 81003; 81015; 82803; 83605; 83735; 83880; 84443; 84484; 85025; 85610; 87086; 87106; 93005; 96360; 96361; 99284

== ENCOUNTER 2019-02-06 08:48 | Inpatient (IN) | payer OTHER ==
[2019-02-06] MEDS ORDERED: Albuterol/Ipratropium NEB.SOL* Albuterol 2.5 MG/Ipratropium 0.5 MG 3 ML INH ONE ×2 (08:57→11:40)
[2019-02-06] MEDS ORDERED: methylPREDNISolone 125 MG* 2 ML VIAL IV ONE (08:57)
--- NOTE | 2019-02-06 08:57 | ED ---
Shortness of Breath - HPI Summary HPI Summary: Patient is a 83 y/o M w/ Hx of COPD, HTN, diabetes, PR x2, and recent left 5th toe amputation who presents to [facility] via EMS with chief complaint of SOB. SOB onset this morning, 02/06/19. EMS reports that the patient had o2 sat in 80s upon their arrival. Patient was placed on re-breather mask and was given albuterol, atrovent. O2 sat improved to approximately 96%. In the room, patient reports improvement of Sx. He denies chest pain but endorses feeling feverish and having a cough productive of white sputum over the past few days. EMS BG was 114. EMS reports that the patient had fallen two days ago. Patient reports that he has Bipap which he uses at night. He claims he has been consistent with usage. Home medications and allergies are reviewed. - History of Current Complaint Hx Obtained From: Patient Onset/Duration: Lasting Hours, Lasting Days - cough Timing: Constant Alleviating Factors: EMS Tx Associated Signs & Symptoms: Cough (Productive), Fever - reported - Allergy/Home Medications Allergies/Adverse Reactions: Allergies Allergy/AdvReac Type Severity Reaction Status Date / Time nitroglycerin Allergy Severe Anaphylatic Verified 02/02/19 21:54 Shock levofloxacin Allergy Intermediate Itching Verified 02/02/19 21:54 Iodinated Contrast Media AdvReac Severe Altered Verified 02/02/19 21:54 [Iodinated Contrast- Oral Mental and IV Dye] Status PMH/Surg Hx/FS Hx/Imm Hx Endocrine/Hematology History: Reports: Hx Anticoagulant Therapy, Hx Blood Transfusions, Hx Diabetes, Hx Anemia Denies: Hx Blood Disorders, Hx Bone Marrow Disease, Hx Systemic Lupus Erythematosus, Hx Sickle Cell Disease, Hx Thyroid Disease, Hx Unexplained Bleeding Cardiovascular History: Reports: Hx Angina, Hx Angioplasty, Hx Cardiac Arrest - 03/05/14, Hx Congestive Heart Failure, Hx Coronary Artery Disease, Hx Deep Vein Thrombosis, Hx Hypercholesterolemia, Hx Hypertension, Hx Myocardial Infarction, Hx Syncope, Hx Valvular Heart Disease Denies: Hx Aneurysm, Hx Auto Implanted Cardiovert Defib, Hx Cardiomegaly, Hx Congenital Heart Disease, Hx Hypotension, Hx Pacemaker/ICD, Hx Peripheral Vascular Disease, Hx Rheumatic Fever, Other Cardiovascular Problems/Disorders Respiratory History: Reports: Hx Chronic Bronchitis, Hx Chronic Obstructive Pulmonary Disease (COPD), Hx Pleural Effusion, Hx Pneumonia, Hx Pulmonary Edema , Hx Sleep Apnea - CPAP, Other Respiratory Problems/Disorders - Bronchitis Denies: Hx Asthma, Hx Cystic Fibrosis, Hx Lung Cancer, Hx Pulmonary Embolism , Hx Seasonal Allergies GI History: Reports: Hx Gastroesophageal Reflux Disease, Hx Hiatal Hernia, Hx Obstructive Bowel Denies: Hx Cirrhosis, Hx Crohn's Disease, Hx Diverticulosis, Hx Gall Bladder Disease, Hx Gastrointestinal Bleed, Hx Irritable Bowel, Hx Jaundice, Hx Ileostomy, Hx Pyloric Stenosis, Hx Ulcer, Other GI Disorders History: Reports: Hx Benign Prostatic Hyperplasia, Hx Kidney Infection Denies: Hx Acute Renal Failure, Hx Chronic Renal Failure, Hx Dialysis, Hx Kidney Stones, Other Problems/Disorders Musculoskeletal History: Reports: Hx Arthritis, Hx Back Problems, Other Musculoskeletal History - BLE weakness hx CVA, uses scooter at home Denies: Hx Bursitis, Hx Congenital Bone Abnormalities, Hx Fibromyalgia, Hx Gout, Hx Orthopedic Injury, Hx Osteoporosis, Hx Scoliosis, Hx Tendonitis Sensory History: Reports: Hx Cataracts - due for sx, Hx Contacts or Glasses, Hx Vision Problem, Hx Hearing Aid - at home, Hx Hearing Problem Denies: Hx Eye Injury, Hx Eye Prosthesis, Hx Glaucoma, Hx Legally Blind, Hx Macular Degeneration, Hx Deafness, Other Sensory Impairments Opthamlomology History: Reports: Hx Cataracts - due for sx, Hx Contacts or Glasses, Hx Vision Problem Denies: Hx Eye Injury, Hx Eye Prosthesis, Hx Glaucoma, Hx Legally Blind, Hx Macular Degeneration, Other Sensory Impairments Neurological History: Reports: Hx CVA, Hx Seizures, Hx Transient Ischemic Attacks (TIA) Denies: Hx Dementia, Hx Developmental Delay, Hx Headaches, Hx Migraine, Hx Nerve Disease, Hx Spinal Cord Injury, Other Neuro Impairments/Disorders Psychiatric History: Reports: Hx Anxiety, Hx Depression - He thinks about the of his and son often., Hx Post Traumatic Stress Disorder, Other Psychiatric Issues/Disorders - Had one episode of emotional shock, but no depression etc since. Denies: Hx Attention Deficit Hyperactivity Disorder, Hx Eating Disorder, Hx Panic Disorder, Hx Inpatient Treatment, Hx Community Mental Health Tx, Hx Schizophrenia, Hx Bipolar Disorder, Hx Suicide Attempt, Hx of Violent Episodes Against Others, Hx Substance Abuse - Cancer History Cancer Type, Location and Year: Skin cancer on scalp - Surgical History Surgery Procedure, Year, and Place: Bypass 2008. hernia 1957. left shoulder sx in [place] in 1966. CABG. 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 Denies: Hx Clostridium Difficile, Hx Hepatitis, Hx Human Immunodeficiency Virus (HIV), Hx Shingles, Hx Tuberculosis, Hx Known/Suspected VRE, History Other Infectious Disease - Family History Known Family History: Positive: Cardiac Disease, Diabetes, Other - uterine CA, colon CA - Social History Alcohol Use: None Hx Substance Use: No Substance Use Type: Reports: None Hx Tobacco Use: No Smoking Status (MU): Never Smoked Tobacco Have You Smoked in the Last Year: No Review of Systems Positive: Fever - reported Negative: Chest Pain Positive: Shortness Of Breath, Cough Musculoskeletal: Other - positive - fall two days ago All Other Systems Reviewed And Are Negative: Yes Physical Exam - Summary Physical Exam Summary: VITAL SIGNS: Reviewed. GENERAL: Patient is a well-developed and nourished male who is lying comfortable in the stretcher. HEAD AND FACE: No signs of trauma. No ecchymosis, hematomas or skull depressions. No sinus tenderness. EYES: PERRLA, EOMI x 2, No injected conjunctiva, no nystagmus. EARS: Hearing grossly intact. Ear canals and tympanic membranes are within normal limits. MOUTH: Oropharynx within normal limits. NECK: Supple, trachea is midline, no adenopathy, no JVD, no carotid bruit, no c- spine tenderness, neck with full ROM. CHEST: Symmetric, no tenderness at palpation. LUNGS: Decreased breath sounds, crackles and diffuse wheezes noted. CVS: Regular rate and rhythm, S1 and S2 present, no murmurs or gallops appreciated. ABDOMEN: Soft, non-tender. No signs of distention. No rebound, no guarding, and no masses palpated. Bowel sounds are normal. EXTREMITIES: FROM in all major joints, no edema, no cyanosis or clubbing. NEURO: Alert and oriented x 3. No acute neurological deficits. Speech is normal and follows commands. SKIN: Dry and warm. Triage Information Reviewed: Yes Vital Signs On Initial Exam: Initial Vitals Temp Pulse Resp BP Pulse Ox 97.7 F 108 26 119/76 97 02/06/19 08:49 02/06/19 08:49 02/06/19 08:49 02/06/19 08:49 02/06/19 08:49 Vital Signs Reviewed: Yes Procedures - Sedation Patient Received Moderate/Deep Sedation with Procedure: No Diagnostics - Laboratory Result Diagrams: 02/06/19 09:12 02/06/19 09:12 Lab Statement: Any lab studies that have been ordered have been reviewed, and results considered in the medical decision making process. - Radiology CXR Radiology Interpretation Completed By: Radiologist Summary of Radiographic Findings: IMPRESSION: 1. PERSISTENT DENSITY OBSCURING THE RIGHT HEMIDIAPHRAGM WHICH IS AT LEAST PARTIALLY DUE TO. PERSISTENT ELEVATION OF THE RIGHT HEMIDIAPHRAGM. 2. PLEURAL EFFUSION. THIS REPORT WAS REVIEWED BY DR. ZAMORA. - EKG 0911 Cardiac Rate: Other Rate - aflutter with rate of 108 BPM EKG Rhythm: Atrial Flutter EKG Comparison: No Significant Change - similar to EKG done 02/02/19 Summary of EKG Findings: EKG showed aflutter with rate of 108 BPM, similar to EKG done 02/02/19. This EKG was reviewed and interpreted by Dr. Zamora. Re-Evaluation - Re-Evaluation First Eval Re-Evaluation Time: 11:40 Comment: O2 sat of 94% on 4 L NC. He was taken off o2 and was 86% o2 sat on RA. Some decreased breath sounds and wheezing noted. Course/Dx - Course Assessment/Plan: This patient is an 83-year-old male who presents to the emergency department with a chief complaint of shortness of breath. Initially, the patient was given DuoNeb and Solu-Medrol since the patient was wheezing and complaining of Shortness of Breath. Blood test results without any significant abnormality except for slight anemia, slight renal insufficiency, glucose 136, troponin 0.04, CRP of 21.6, and BNP 742. Chest x-ray impression: Persistent density obscuring the right hemidiaphragm which is at least partially due to persistent elevation of the right hemidiaphragm. Pleural effusion. He was given multiple duonebs and SoluMedrol and his symptoms have improved. However, overall, he continues to be symptomatic and I discussed the case with Dr. Hurley who accepted the patient for admission. - Diagnoses Provider Diagnoses: COPD exacerbation, COPD exacerbation, Pleural effusion - Physician Notifications Discussed Care of Patient With: Ovidio Kardon Time Discussed With Above Provider: 12:22 Instructed by Provider To: Other - Patient's case was discussed with Dr. Hurley , Dr. Hurley accepts for admission. Discharge ED - Sign-Out/Discharge Documenting (check all that apply): Patient Departure - admit - Discharge Plan Condition: Stable Disposition: ADMITTED TO [facility] - Billing Disposition and Condition Condition: STABLE Disposition: Admitted to [facility] - Attestation Statements Document Initiated by Marthaibe: Yes Documenting Scribe: MKIE RADFORD Provider For Whom Mauricio is Documenting (Include Credential): PASCUAL ZAMORA MD Scribe Attestation: I, MIKE RADFORD, scribed for PASCUAL ZAMORA MD on 02/06/19 at 1844. Scribe Documentation Reviewed: Yes Provider Attestation: The documentation as recorded by the scribeMIKE accurately reflects the service I personally performed and the decisions made by me, PASCUAL ZAMORA MD Status of Scribe Document: Viewed
--- OUTSIDE RECORDS SUMMARY | 2019-02-06 09:09 | XMS REPORT ---
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 [id number] disease, disease, unspecified unspecified Type 2 Type 2 Diagnosis Active [place] diabetes diabetes 06-12 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, neuropathy, unsp unsp 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 [id number] toe(s) toe(s) I48.91 I48.91 Diagnosis Active [place] 06-12 Ulisses [id number] Safety knowledge/s Safety Resolve 2015-07-26 Meghann kill d 2-15 15:15:00 Jasen deficit: pt 10:00: [id number] 00 Diagnoses knowledge/s Diagnoses Active Meghann kill 2-15 Jasen deficit: pt 10:00: [id number] 00 Diagnoses knowledge/s Diagnoses Active Meghann kill 2-15 Jasen deficit: cg 10:00: [id number] 00 Respiratory knowledge/s Respirator Resolve 2015-10-22 Martina kill y d 3-07 10:30:00 Sinnigen deficit: cg 10:30: [id number] 00 Pain frequent Pain Mgmt Resolve 2018-08-03 Paula pain d 06-03 12:10:00 Gardiner 11:00: [id number] 00 Respiratory oxygen Respirator Resolve 2015-2016-12-09 Paula treatments y d 3-14 12:18:00 Eri in home 11:00: [id number] 00 Respiratory CPAP Respirator Resolve 2016-12-09 Paula treatments y d 3-14 12:18:00 Gardiner in home 11:00: [id number] 00 Integument skin Integument Resolve 2015-06-08 Paula integrity d 3-14 14:20:00 Gardiner risk 11:00: [id number] 00 Nutrition knowledge/s Nutrition Resolve 2015-06-08 Paula kill d 3-14 14:20:00 Gardiner deficit: pt 11:00: [id number] 00 Nutrition knowledge/s Nutrition Resolve 2015-06-08 Paula kill d 3-14 14:20:00 Gardiner deficit: cg 11:00: [id number] Neuro knowledge/s Neuro/Emot Resolve 2015-06-08 Paula kill ion d 3-14 14:20:00 Gardiner deficit: pt 11:00: [id number] Neuro seizures Neuro/Emot Resolve 2015-06-08 Paula ion d 3-14 14:20:00 Gardiner 11:00: [id number] 00 Activity ADL Activity Resolve 2015-06-08 Paula assistance d 3-14 14:20:00 Eri required 11:00: [id number] Safety fall risk Safety Resolve 2015-06-08 Paula factor d 3-14 14:20:00 Eri present 11:00: [id number] 00 Safety risk for Safety Resolve 2015-06-08 Paula hospitaliza d 3-14 14:20:00 Gardiner tion 11:00: [id number] 00 Medication knowledge/s Meds Resolve 2015-06-08 Paula kill d 3-14 14:20:00 Eri deficit: pt 11:00: [id number] 00 Musculoskel knowledge/s Musculoske Resolve 2015-06-08 Paula etal kill letal d 3-14 14:20:00 Eri deficit: pt 11:00: [id number] Psych psych risk Psych Resolve 2015-06-08 Paula Problems factors d 3-14 14:20:00 Gardiner present 11:00: [id number] 00 Bed transfer PT/OT: Bed Resolve 2015-06-08 Rubén Mobility/Tr deficit: Mobility/T d 3-18 14:20:00 Que mack sit/stand ransfer 14:20: [id number] 00 Bed transfer PT/OT: Bed Resolve 2015-06-08 Rubén Mobility/Tr deficit: Mobility/T d 3-18 14:20:00 Que mack toilet/comm ransfer 14:20: [id number] ode 00 Bed transfer PT/OT: Bed Resolve 2015-06-08 Rubén Mobility/Tr deficit: Mobility/T d 318 14:20:00 Que mack shower/tub ransfer 14:20: [id number] 00 Bed transfer PT/OT: Bed Resolve 2015-06-08 Rubén Mobility/Tr deficit: Mobility/T d 318 14:20:00 Que mack vehicle ransfer 14:20: [id number] 00 Bed knowledge/s PT/OT: Bed Resolve 2015-06-08 Rubén Mobility/Tr kill Mobility/T d 318 14:20:00 Que mack deficit: pt ransfer 14:20: [id number] 00 Bed bed PT/OT: Bed Resolve 2015-06-08 Rubén Mobility/Tr mobility Mobility/T d 318 14:20:00 Que mack deficit ransfer 14:20: [id number] 00 Balance/End endurance PT/OT: Resolve 2015-06-12 Rubén urance deficit Balance/En d 318 14:50:00 Que durance 14:20: [id number] 00 Balance/End knowledge/s PT/OT: Resolve 2015-06-12 Rubén urance kill Balance/En d 18 14:50:00 Que deficit: pt durance 14:20: [id number] 00 Gait/Locomo gait PT/OT: Resolve 2015-06-08 Rubén tion assistive Gait/Locom d 318 14:20:00 Que problems device otion 14:20: [id number] present 00 Gait/Locomo knowledge/s PT/OT: Resolve 2015-06-08 Rubén tion kill Gait/Locom d 06-07 14:20:00 Que problems deficit: pt otion 14:20: [id number] 00 Gait/Locomo gait PT/OT: Resolve 2015-06-08 Rubén tion deficit Gait/Locom d 06-07 14:20:00 Que problems otion 14:20: [id number] 00 Safety risk for Safety Resolve 2015-06-12 [facility] 14:50:00 Sinnigen tion 09:35: [id number] 00 Bed transfer PT/OT: Bed Resolve 2015-06-12 Rubén Mobility/Tr deficit: Mobility/T d 06-11 14:50:00 Que ansfer sit/stand ransfer 14:50: [id number] 00 Gait/Locomo knowledge/s PT/OT: Resolve 2015-06-12 Rubén tion kill Gait/Locom d 06-11 14:50:00 Que problems deficit: pt otion 14:50: [id number] 00 Gait/Locomo gait PT/OT: Resolve 2015-06-12 Rubén tion deficit Gait/Locom d 06-11 14:50:00 Que problems otion 14:50: [id number] 00 Safety risk for Safety Resolve 2015-06-22 [facility] 14:20:00 Eri tion 10:30: [id number] 00 Bed transfer PT/OT: Bed Resolve 2015-06-15 Rubén Mobility/Tr deficit: Mobility/T d 06-14 14:20:00 Que ansfer sit/stand ransfer 14:20: [id number] 00 Bed transfer PT/OT: Bed Resolve 2015-06-15 Rubén Mobility/Tr deficit: Mobility/T d 06-14 14:20:00 Que ansfer toilet/comm ransfer 14:20: [id number] ode 00 Gait/Locomo gait PT/OT: Resolve 2015-06-15 Rubén tion assistive Gait/Locom d 06-14 14:20:00 Que problems device otion 14:20: [id number] present 00 Gait/Locomo knowledge/s PT/OT: Resolve 2015-06-15 Rubén tion kill Gait/Locom d 06-14 14:20:00 Que problems deficit: pt otion 14:20: [id number] 00 Gait/Locomo gait PT/OT: Resolve 2015-06-15 Rubén tion deficit Gait/Locom d 06-14 14:20:00 Que problems otion 14:20: [id number] 00 Respiratory dyspnea Respirator Resolve 2016-12-09 Paula present y d 06-21 12:18:00 Eri 13:00: [id number] 00 Respiratory lung sounds Respirator Resolve 2015-06-29 Paula deficit y d 06-21 14:20:00 Eri 13:00: [id number] 00 Bed transfer PT/OT: Bed Resolve 2015-06-22 Rubén Mobility/Tr deficit: Mobility/T d 06-21 14:20:00 Que ansfer sit/stand ransfer 14:20: [id number] 00 Balance/End knowledge/s PT/OT: Resolve 2015-06-22 Rubén urance kill Balance/En d 06-21 14:20:00 Que deficit: pt durance 14:20: [id number] 00 Balance/End endurance PT/OT: Resolve 2015-06-22 Rubén urance deficit Balance/En d 06-21 14:20:00 Que durance 14:20: [id number] 00 Gait/Locomo knowledge/s PT/OT: Resolve 2015-06-22 Rubén tion kill Gait/Locom d 06-21 14:20:00 Que problems deficit: pt otion 14:20: [id number] 00 Gait/Locomo gait PT/OT: Resolve 2015-06-22 Rubén tion deficit Gait/Locom d 06-21 14:20:00 Que problems otion 14:20: [id number] 00 Gait/Locomo gait PT/OT: Resolve 2015-06-22 Rubén tion assistive Gait/Locom d 06-21 14:20:00 Que problems device otion 14:20: [id number] present 00 Elimination diarrhea Eliminatio Resolve 2015-06-29 Martina n d 06-24 14:20:00 Sinnigen 10:15: [id number] 00 Safety risk for Safety Resolve 2015-06-29 Martina hospital[facility] d 06-24 14:20:00 Sinnigen tion 10:15: [id number] 00 Safety can be left Safety Resolve 2015-07-02 Rubén alone for d 06-28 15:15:00 Que only short 14:20: [id number] periods 00 Bed mobility/tr PT/OT: Bed Resolve 2015-07-02 Rubén Mobility/Tr ansfer Mobility/T d 06-28 15:15:00 Que ansfer device ransfer 14:20: [id number] present 00 Bed transfer PT/OT: Bed Resolve 2015-06-29 Rubén Mobility/Tr deficit: Mobility/T d 06-28 14:20:00 Que ansfer sit/stand ransfer 14:20: [id number] 00 Endo/Nito knowledge/s Endo/Nito Resolve 2015-07-05 Paula kill d 07-01 15:15:00 Eri deficit: pt 13:30: [id number] 00 Endo/Nito knowledge/s Endo/Nito Resolve 2015-07-05 Paula kill d 07-01 15:15:00 Eri deficit: cg 13:30: [id number] 00 Endo/Nito knowledge/s Endo/Nito Resolve 2015-07-05 Paula kill d 07-01 15:15:00 Eri deficit 13:30: [id number] hypo/hyperg 00 lycemia: pt Endo/Nito knowledge/s Endo/Nito Resolve 2015-07-05 Paula kill d 07-01 15:15:00 Gardiner deficit 13:30: [id number] hypo/hyperg 00 lycemia: cg Neuro knowledge/s Neuro/Emot Resolve 2015-07-05 Paula kill ion d 07-01 15:15:00 Gardiner deficit: pt 13:30: [id number] 00 Neuro seizures Neuro/Emot Resolve 2015-07-05 Paula ion d 07-01 15:15:00 Gardiner 13:30: [id number] 00 Safety risk for Safety Resolve 2015-07-02 Paula hospitaliza d 07-01 15:15:00 Gardiner tion 13:30: [id number] 00 Bed transfer PT/OT: Bed Resolve 2015-07-02 Rubén Mobility/Tr deficit: Mobility/T d 07-01 15:15:00 Que ansfer sit/stand ransfer 15:15: [id number] 00 Gait/Locomo gait PT/OT: Resolve 2015-07-02 Rubén tion assistive Gait/Locom d 07-01 15:15:00 Que problems device otion 15:15: [id number] present 00 Gait/Locomo knowledge/s PT/OT: Resolve 2015-07-02 Rubén tion kill Gait/Locom d 07-01 15:15:00 Que problems deficit: pt otion 15:15: [id number] 00 Gait/Locomo gait PT/OT: Resolve 2015-07-02 Rubén tion deficit Gait/Locom d 07-01 15:15:00 Que problems otion 15:15: [id number] 00 Bed transfer PT/OT: Bed Resolve 2015-07-05 Rubén Mobility/Tr deficit: Mobility/T d 07-04 15:15:00 Que ansfer sit/stand ransfer 15:15: [id number] 00 Bed mobility/tr PT/OT: Bed Resolve 2015-07-05 Rubén Mobility/Tr ansfer Mobility/T d 07-04 15:15:00 Que ansfer device ransfer 15:15: [id number] present 00 Balance/End knowledge/s PT/OT: Resolve 2015-07-09 Rubén urance kill Balance/En d 07-04 14:30:00 Que deficit: pt durance 15:15: [id number] 00 Balance/End endurance PT/OT: Resolve 2015-07-05 Rubén urance deficit Balance/En d 07-04 15:15:00 Que durance 15:15: [id number] 00 Gait/Locomo gait PT/OT: Resolve 2015-07-05 Rubén tion assistive Gait/Locom d 07-04 15:15:00 Que problems device otion 15:15: [id number] present 00 Gait/Locomo knowledge/s PT/OT: Resolve 2015-07-05 Rubén tion kill Gait/Locom d - 15:15:00 Que problems deficit: pt otion 15:15: [id number] 00 Gait/Locomo gait PT/OT: Resolve 2015-07-05 Rubén tion deficit Gait/Locom d -14 15:15:00 Que problems otion 15:15: [id number] 00 Bed transfer PT/OT: Bed Resolve 2015-07-11 Rubén Mobility/Tr deficit: Mobility/T d 07-08 14:45:00 Que ansfer sit/stand ransfer 14:30: [id number] 00 Balance/End endurance PT/OT: Resolve 2015-07-09 Rubén urance deficit Balance/En d 07-08 14:30:00 Que durance 14:30: [id number] 00 Gait/Locomo gait PT/OT: Resolve 2015-07-09 Rubén tion assistive Gait/Locom d 07-08 14:30:00 Que problems device otion 14:30: [id number] present 00 Gait/Locomo knowledge/s PT/OT: Resolve 2015-07-09 Rubén tion kill Gait/Locom d 07-08 14:30:00 Que problems deficit: pt otion 14:30: [id number] 00 Gait/Locomo gait PT/OT: Resolve 2015-07-09 Rubén tion deficit Gait/Locom d 07-08 14:30:00 Que problems otion 14:30: [id number] 00 Test/Treatm venipunctur Test/Injec Resolve 2015-07-16 Paula ent e ordered t/Sebastien d 07-09 14:00:00 Eri [id number] Gait/Locomo gait PT/OT: Resolve 2015-07-11 Rubén tion deficit Gait/Locom d 07-10 14:45:00 Que problems otion 14:45: [id number] 00 Gait/Locomo knowledge/s PT/OT: Resolve 2015-07-11 Rubén tion kill Gait/Locom d 07-10 14:45:00 Que problems deficit: pt otion 14:45: [id number] 00 Respiratory lung sounds Respirator Resolve 2015-07-16 Kavon deficit y d 07-11 14:00:00 MacInnes 09:00: [id number] 00 Respiratory oxygen Respirator Unknown Kavon treatments y 07-11 MacInnes in home 09:00: [id number] 00 Respiratory dyspnea Respirator Unknown Kavon present y 07-11 MacInnes 09:00: [id number] 00 Endo/Nito knowledge/s Endo/Nito Resolve 2015-07-16 Kavon kill d 07-11 14:00:00 MacInnes deficit: cg 09:00: [id number] 00 Endo/Nito knowledge/s Endo/Nito Resolve 2015-07-16 Kavon kill d 07-11 14:00:00 MacInnes deficit 09:00: [id number] hypo/hyperg 00 lycemia: pt Sensory impaired Sensory Resolve 2015-07-16 Kavon vision d 07-11 14:00:00 MacInnes 09:00: [id number] 00 Neuro seizures Neuro/Emot Resolve 2015-07-16 Kavon ion d 07-11 14:00:00 MacInnes 09:00: [id number] 00 Medication oral med Meds Unknown Kavon assistance 07-11 MacInnes required 09:00: [id number] 00 Musculoskel knowledge/s Musculoske Resolve 2015-07-16 Kavon etal kill letal d 07-11 14:00:00 MacInnes deficit: pt 09:00: [id number] 00 Psych psych risk Psych Resolve 2015-07-16 Kavon Problems factors d 07-11 14:00:00 MacInnes present 09:00: [id number] 00 Elimination constipatio Eliminatio Resolve 2015-07-26 Martina n n d 07-15 15:15:00 Sinnigen 09:00: [id number] 00 Safety risk for Safety Resolve 2015-08-07 Rubén hospitaliza d 07-15 14:15:00 Que tion 14:00: [id number] 00 Bed transfer PT/OT: Bed Resolve 2015-07-16 Rubén Mobility/Tr deficit: Mobility/T d 07-15 14:00:00 Que ansfer sit/stand ransfer 14:00: [id number] 00 Gait/Locomo gait PT/OT: Resolve 2015-07-16 Rubén tion deficit Gait/Locom d 07-15 14:00:00 Que problems otion 14:00: [id number] 00 Gait/Locomo knowledge/s PT/OT: Resolve 2015-07-16 Rubén tion kill Gait/Locom d 07-15 14:00:00 Que problems deficit: pt otion 14:00: [id number] 00 Test/Treatm venipunctur Test/Injec Active Paula ent e ordered t/Sebastien 07-17 Gardiner [id number] Pain frequent Pain Mgmt Unknown Sara pain 07-20 Charli 11:00: [id number] 00 Respiratory oxygen Respirator Unknown Sara treatments y 07-20 Charli in home 11:00: [id number] 00 Respiratory lung sounds Respirator Resolve 2015-08-07 Sara deficit y d 07-20 14:15:00 Charli 11:00: [id number] 00 Endo/Nito diabetic Endo/Nito Resolve 2015-08-15 Sara foot care d 07-20 15:30:00 Charli 11:00: [id number] 00 Endo/Nito knowledge/s Endo/Nito Resolve 2015-08-15 Sara kill d 07-20 15:30:00 Augustin deficit 11:00: [id number] hypo/hyperg 00 lycemia: pt Endo/Nito insulin Endo/Nito Resolve 2016-12-09 Sara admn d 07-20 12:18:00 Augustin dependence 11:00: [id number] 00 Endo/Nito knowledge/s Endo/Nito Resolve 2015-08-15 Sara kill d 07-20 15:30:00 Charli deficit: pt 11:00: [id number] 00 Endo/Nito knowledge/s Endo/Nito Resolve 2015-08-15 Sara kill d 07-20 15:30:00 Charli deficit: cg 11:00: [id number] 00 Integument skin Integument Resolve 2015-08-07 Sara integrity d 07-20 14:15:00 Augustin risk 11:00: [id number] 00 Integument other wound Integument Resolve 2015-08-07 Sara present d 07-20 14:15:00 Augustin 11:00: [id number] 00 Neuro seizures Neuro/Emot Resolve 2015-08-07 Sara ion d 07-20 14:15:00 Augustin 11:00: [id number] 00 Neuro confusion Neuro/Emot Resolve 2015-08-07 Sara present ion d 07-20 14:15:00 Augustin 11:00: [id number] 00 Neuro anxiety Neuro/Emot Resolve 2015-08-07 Sara present ion d 07-20 14:15:00 Augustin 11:00: [id number] 00 Neuro depressive Neuro/Emot Resolve 2015-08-07 Sara feelings ion d 07-20 14:15:00 Augustin present 11:00: [id number] 00 Activity ADL Activity Unknown Sara assistance 07-20 Charli required 11:00: [id number] 00 Safety fall risk Safety Resolve 2015-08-07 Sara factor d 07-20 14:15:00 Augustin present 11:00: [id number] 00 Medication oral med Meds Resolve 2016-01-08 Sara assistance d 07-20 11:20:00 Charli required 11:00: [id number] 00 Medication injectable Meds Resolve 2016-09-15 Sara med d 07-20 09:00:00 Charli assistance 11:00: [id number] required 00 Musculoskel knowledge/s Musculoske Resolve 2015-08-07 Sara etal kill letal d 07-20 14:15:00 Charli deficit: pt 11:00: [id number] 00 Musculoskel transfer Musculoske Unknown Sara etal assistance letal 07-20 Charli required 11:00: [id number] 00 Bed transfer PT/OT: Bed Resolve 2015-07-26 Rubén Mobility/Tr deficit: Mobility/T d 07-25 15:15:00 Que mack sit/stand ransfer 15:15: [id number] 00 Gait/Locomo gait PT/OT: Resolve 2015-07-26 Rubén tion assistive Gait/Locom d 07-25 15:15:00 Que problems device otion 15:15: [id number] present 00 Gait/Locomo gait PT/OT: Resolve 2015-07-26 Rubén tion deficit Gait/Locom d 07-25 15:15:00 Que problems otion 15:15: [id number] 00 Gait/Locomo knowledge/s PT/OT: Resolve 2015-07-26 Rubén tion kill Gait/Locom d 07-25 15:15:00 Que problems deficit: pt otion 15:15: [id number] 00 Bed transfer PT/OT: Bed Resolve 2015-08-07 Rubén Mobility/Tr deficit: Mobility/T d 07-29 14:15:00 Que ansfer sit/stand ransfer 14:45: [id number] 00 Gait/Locomo knowledge/s PT/OT: Resolve 2015-07-30 Rubén tion kill Gait/Locom d 07-29 14:45:00 Que problems deficit: pt otion 14:45: [id number] 00 Gait/Locomo gait PT/OT: Resolve 2015-07-30 Rubén tion assistive Gait/Locom d 07-29 14:45:00 Que problems device otion 14:45: [id number] present 00 Gait/Locomo gait PT/OT: Resolve 2015-07-30 Rubén tion deficit Gait/Locom d 07-29 14:45:00 Que problems otion 14:45: [id number] 00 Respiratory dyspnea Respirator Unknown Paula present y 08-01 Eri 12:00: [id number] 00 Elimination urinary Eliminatio Resolve 2015-08-02 Paula incontinenc n d 08-01 12:00:00 Eri gaffney 12:00: [id number] 00 Neuro impaired Neuro/Emot Resolve 2015-08-07 Paula decision-ma ion d 08-01 14:15:00 Eri ibanez 12:00: [id number] 00 Musculoskel requires Musculoske Unknown Paula etal human letal 08-01 Gardiner assist to 12:00: [id number] leave home 00 Elimination urinary Eliminatio Resolve 2015-08-15 Rubén incontinenc n d 08-06 15:30:00 Que e 14:15: [id number] 00 Gait/Locomo gait PT/OT: Resolve 2015-08-10 Rubén tion assistive Gait/Locom d 08-06 13:10:00 Que problems device otion 14:15: [id number] present 00 Gait/Locomo knowledge/s PT/OT: Resolve 2015-08-10 Rubén tion kill Gait/Locom d 08-06 13:10:00 Que problems deficit: pt otion 14:15: [id number] 00 Gait/Locomo gait PT/OT: Resolve 2015-08-10 Rubén tion deficit Gait/Locom d 08-06 13:10:00 Que problems otion 14:15: [id number] 00 Safety risk for Safety Resolve 2015-08-15 Rubén hospitaliza d 08-09 15:30:00 Que tion 13:10: [id number] 00 Bed transfer PT/OT: Bed Resolve 2015-08-10 Rubén Mobility/Tr deficit: Mobility/T d 08-09 13:10:00 Que ansfer sit/stand ransfer 13:10: [id number] 00 Bed transfer PT/OT: Bed Resolve 2015-08-15 Rubén Mobility/Tr deficit: Mobility/T d 08-14 15:30:00 Que ansfer sit/stand ransfer 15:30: [id number] 00 Gait/Locomo gait PT/OT: Resolve 2015-08-15 Rubén tion assistive Gait/Locom d 08-14 15:30:00 Que problems device otion 15:30: [id number] present 00 Gait/Locomo knowledge/s PT/OT: Resolve 2015-08-15 Rubén tion kill Gait/Locom d 08-14 15:30:00 Que problems deficit: pt otion 15:30: [id number] 00 Gait/Locomo gait PT/OT: Resolve 2015-08-15 Rubén tion deficit Gait/Locom d 08-14 15:30:00 Que problems otion 15:30: [id number] 00 Safety risk for Safety Resolve 2015-08-16 Paula hospitaliza d 08-15 16:45:00 Gardiner tion 12:30: [id number] 00 Bed transfer PT/OT: Bed Resolve 2015-08-16 Rubén Mobility/Tr deficit: Mobility/T d 08-15 16:45:00 Que ansfer sit/stand ransfer 16:45: [id number] 00 Gait/Locomo gait PT/OT: Resolve 2015-08-16 Rubén tion deficit Gait/Locom d 08-15 16:45:00 Que problems otion 16:45: [id number] 00 Safety risk for Safety Resolve 2015-08-24 Rubén hospitaliza d 08-21 15:30:00 Que tion 14:45: [id number] 00 Bed transfer PT/OT: Bed Resolve 2015-08-22 Rubén Mobility/Tr deficit: Mobility/T d 08-21 14:45:00 Que ansfer sit/stand ransfer 14:45: [id number] 00 Gait/Locomo gait PT/OT: Resolve 2015-08-22 Rubén tion assistive Gait/Locom d 08-21 14:45:00 Que problems device otion 14:45: [id number] present 00 Gait/Locomo gait PT/OT: Resolve 2015-08-22 Rubén tion deficit Gait/Locom d 08-21 14:45:00 Que problems otion 14:45: [id number] 00 Bed transfer PT/OT: Bed Resolve 2015-08-24 Rubén Mobility/Tr deficit: Mobility/T d 08-23 15:30:00 Que ansfer sit/stand ransfer 15:30: [id number] 00 Gait/Locomo gait PT/OT: Resolve 2015-08-24 Rubén tion assistive Gait/Locom d 08-23 15:30:00 Que problems device otion 15:30: [id number] present 00 Gait/Locomo gait PT/OT: Resolve 2015-08-24 Rubén tion deficit Gait/Locom d 08-23 15:30:00 Que problems otion 15:30: [id number] 00 Safety risk for Safety Resolve 2015-08-31 [facility] 15:15:00 Sinnigen tion 14:45: [id number] 00 Bed transfer PT/OT: Bed Resolve 2015-09-04 Rubén Mobility/Tr deficit: Mobility/T d 08-30 14:25:00 Que ansfer sit/stand ransfer 15:15: [id number] 00 Gait/Locomo gait PT/OT: Resolve 2015-08-31 Rubén tion assistive Gait/Locom d 6 15:15:00 Que problems device otion 15:15: [id number] present 00 Gait/Locomo gait PT/OT: Resolve 2015-08-31 Rubén tion deficit Gait/Locom d 08-30 15:15:00 Que problems otion 15:15: [id number] 00 Respiratory lung sounds Respirator Resolve 2015-10-22 Martina deficit y d 6- 10:30:00 Sinnigen 11:30: [id number] 00 Safety risk for Safety Resolve 2015-09-06 Martina hospitaliza d 6- 16:15:00 Sinnigen tion 11:30: [id number] 00 Gait/Locomo gait PT/OT: Resolve 2015-09-04 Rubén tion assistive Gait/Locom d 09-03 14:25:00 Que problems device otion 14:25: [id number] present 00 Gait/Locomo gait PT/OT: Resolve 2015-09-04 Rubén tion deficit Gait/Locom d 09-03 14:25:00 Que problems otion 14:25: [id number] 00 Bed transfer PT/OT: Bed Resolve 2015-09-06 Rubén Mobility/Tr deficit: Mobility/T d 09-05 16:15:00 Que ansfer sit/stand ransfer 16:15: [id number] 00 Gait/Locomo gait PT/OT: Resolve 2015-09-06 Rubén tion assistive Gait/Locom d 09-05 16:15:00 Que problems device otion 16:15: [id number] present 00 Gait/Locomo gait PT/OT: Resolve 2015-09-06 Rubén tion deficit Gait/Locom d 09-05 16:15:00 Que problems otion 16:15: [id number] 00 Safety risk for Safety Resolve 2015-09-10 Rubén hospitaliza d 09-09 15:15:00 Que tion 15:15: [id number] 00 Bed transfer PT/OT: Bed Resolve 2015-09-10 Rubén Mobility/Tr deficit: Mobility/T d 09-09 15:15:00 Que ansfer sit/stand ransfer 15:15: [id number] 00 Gait/Locomo gait PT/OT: Resolve 2015-09-10 Rubén tion assistive Gait/Locom d 09-09 15:15:00 Que problems device otion 15:15: [id number] present 00 Gait/Locomo gait PT/OT: Resolve 2015-09-10 Rubén tion deficit Gait/Locom d 09-09 15:15:00 Que problems otion 15:15: [id number] 00 Safety risk for Safety Resolve 2015-09-17 Rubén hospitaliza d 09-12 15:15:00 Que tion 14:45: [id number] 00 Bed transfer PT/OT: Bed Resolve 2015-09-17 Rubén Mobility/Tr deficit: Mobility/T d 09-12 15:15:00 Que ansfer sit/stand ransfer 14:45: [id number] 00 Gait/Locomo gait PT/OT: Resolve 2015-09-17 Rubén tion assistive Gait/Locom d 09-12 15:15:00 Que problems device otion 14:45: [id number] present 00 Gait/Locomo gait PT/OT: Resolve 2015-09-17 Rubén tion deficit Gait/Locom d 09-12 15:15:00 Que problems otion 14:45: [id number] 00 Safety risk for Safety Resolve 2015-09-25 Rubén hospitaliza d 09-19 14:15:00 Que tion 14:45: [id number] 00 Bed transfer PT/OT: Bed Resolve 2015-09-20 Rubén Mobility/Tr deficit: Mobility/T d 09-19 14:45:00 Que ansfer sit/stand ransfer 14:45: [id number] 00 Gait/Locomo gait PT/OT: Resolve 2015-09-20 Rubén tion assistive Gait/Locom d 09-19 14:45:00 Que problems device otion 14:45: [id number] present 00 Gait/Locomo gait PT/OT: Resolve 2015-09-20 Rubén tion deficit Gait/Locom d 09-19 14:45:00 Que problems otion 14:45: [id number] 00 Bed transfer PT/OT: Bed Resolve 2015-09-25 Rubén Mobility/Tr deficit: Mobility/T d 09-24 14:15:00 Que ansfer sit/stand ransfer 14:15: [id number] 00 Bed bed PT/OT: Bed Resolve 2015-09-25 Rubén Mobility/Tr mobility Mobility/T d 09-24 14:15:00 Que ansfer deficit ransfer 14:15: [id number] 00 Safety risk for Safety Resolve 2015-09-27 Rubén hospitaliza d 09-26 14:00:00 Que tion 14:00: [id number] 00 Bed transfer PT/OT: Bed Resolve 2015-09-27 Rubén Mobility/Tr deficit: Mobility/T d 09-26 14:00:00 Que ansfer sit/stand ransfer 14:00: [id number] 00 Gait/Locomo gait PT/OT: Resolve 2015-09-27 Rubén tion assistive Gait/Locom d 09-26 14:00:00 Que problems device otion 14:00: [id number] 00 Gait/Locomo gait PT/OT: Resolve 2015-09-27 Rubén tion deficit Gait/Locom d 09-26 14:00:00 Que problems otion 14:00: [id number] Safety risk for Safety Resolve 2015-10-22 Martina hospitaliza d 09-30 10:30:00 Sinnigen tion 09:30: [id number] Bed transfer PT/OT: Bed Resolve 2015-10-03 Rubén Mobility/Tr deficit: Mobility/T d 10-01 12:45:00 Que ansfer sit/stand ransfer 14:00: [id number] 00 Gait/Locomo gait PT/OT: Resolve 2015-10-02 Rubén tion assistive Gait/Locom d 7-12 14:00:00 Que problems device otion 14:00: [id number] present 00 Gait/Locomo knowledge/s PT/OT: Resolve 2015-10-02 Rubén tion kill Gait/Locom d 10-01 14:00:00 Que problems deficit: pt otion 14:00: [id number] 00 Gait/Locomo gait PT/OT: Resolve 2015-10-02 Rubén tion deficit Gait/Locom d 10-01 14:00:00 Que problems otion 14:00: [id number] 00 Respiratory oxygen Respirator Unknown [place] treatments y 7- [place] in home 10:00: [id number] 00 Respiratory dyspnea Respirator Unknown Paula present y 10-02 [place] 10:00: [id number] 00 Neuro impaired Neuro/Emot Resolve 2015-10-29 Paula decision-ma ion d 7-13 10:00:00 Eri marcelle 10:00: [id number] 00 Neuro memory Neuro/Emot Resolve 2015-11-19 Paula deficit ion d 13 10:00:00 [place] needing 10:00: [id number] supervision 00 Activity ADL Activity Resolve 2016-02-18 Paula assistance d 10-02 09:30:00 Eri required 10:00: [id number] 00 Safety fall risk Safety Resolve 2015-10-22 Paula factor d -13 10:30:00 Eri present 10:00: [id number] Safety can be left Safety Resolve 2015-10-22 Paula alone for d 10-02 10:30:00 Eri only short 10:00: [id number] periods 00 Musculoskel requires Musculoske Resolve 2016-07-14 Paula etal human letal d 10-02 09:45:00 Eri assist to 10:00: [id number] leave home 00 Gait/Locomo gait PT/OT: Resolve 2015-10-03 Rubén tion assistive Gait/Locom d 7- 12:45:00 Que problems device otion 12:45: [id number] present 00 Gait/Locomo knowledge/s PT/OT: Resolve 2016-0 2015-10-03 Rubén tion kill Gait/Locom d 10-02 12:45:00 Que problems deficit: pt otion 12:45: [id number] 00 Gait/Locomo gait PT/OT: Resolve 2015-10-03 Rubén tion deficit Gait/Locom d 10-02 12:45:00 Que problems otion 12:45: [id number] 00 Bed transfer PT/OT: Bed Resolve 2015-10-08 Rubén Mobility/Tr deficit: Mobility/T d 10-07 14:45:00 Que ansfer sit/stand ransfer 14:45: [id number] 00 Gait/Locomo knowledge/s PT/OT: Resolve 2015-10-08 Rubén tion kill Gait/Locom d 10-07 14:45:00 Que problems deficit: pt otion 14:45: [id number] 00 Gait/Locomo gait PT/OT: Resolve 2015-10-08 Rubén tion deficit Gait/Locom d 10-07 14:45:00 Que problems otion 14:45: [id number] 00 Bed transfer PT/OT: Bed Resolve 2015-10-11 Rubén Mobility/Tr deficit: Mobility/T d 10-10 14:30:00 Que ansfer sit/stand ransfer 14:30: [id number] 00 Gait/Locomo gait PT/OT: Resolve 2015-10-11 Rubén tion assistive Gait/Locom d 10-10 14:30:00 Que problems device otion 14:30: [id number] present 00 Gait/Locomo knowledge/s PT/OT: Resolve 2015-10-11 Rubén tion kill Gait/Locom d 10-10 14:30:00 Que problems deficit: pt otion 14:30: [id number] 00 Gait/Locomo gait PT/OT: Resolve 2015-10-11 Rubén tion deficit Gait/Locom d 10-10 14:30:00 Que problems otion 14:30: [id number] 00 Respiratory dyspnea Respirator Unknown Analilia present y 10-14 [place] 09:45: [id number] 00 Safety structural Safety Resolve 2015-10-22 Analilia barriers d 10-14 10:30:00 [place] present 09:45: [id number] 00 Musculoskel transfer Musculoske Resolve 2016-07-14 Analilia etal assistance letal d 10-14 09:45:00 Kiara required 09:45: [id number] 00 Musculoskel requires Musculoske Resolve 2016-07-14 Analilia etal special letal d 10-14 09:45:00 [place] transportat 09:45: [id number] ion 00 Bed transfer PT/OT: Bed Resolve 2015-10-18 Rubén Mobility/Tr deficit: Mobility/T d 10-14 14:00:00 Que ansfer sit/stand ransfer 12:50: [id number] 00 Gait/Locomo gait PT/OT: Resolve 2015-10-15 Rubén tion assistive Gait/Locom d 10-14 12:50:00 Que problems device otion 12:50: [id number] present 00 Gait/Locomo knowledge/s PT/OT: Resolve 2015-10-15 Rubén tion kill Gait/Locom d 10-14 12:50:00 Que problems deficit: pt otion 12:50: [id number] 00 Gait/Locomo gait PT/OT: Resolve 2015-10-15 Rubén tion deficit Gait/Locom d 10-14 12:50:00 Que problems otion 12:50: [id number] 00 Gait/Locomo gait PT/OT: Resolve 2015-10-18 Rubén tion assistive Gait/Locom d 10-17 14:00:00 Que problems device otion 14:00: [id number] present 00 Gait/Locomo knowledge/s PT/OT: Resolve 2015-10-18 Rubén tion kill Gait/Locom d 10-17 14:00:00 Que problems deficit: pt otion 14:00: [id number] 00 Gait/Locomo gait PT/OT: Resolve 2015-10-18 Rubén tion deficit Gait/Locom d 10-17 14:00:00 Que problems otion 14:00: [id number] 00 Respiratory CPAP Respirator Unknown [facility] treatments y 10-21 [place] in home 10:30: [id number] 00 Endo/Nito glucose Endo/Nito Resolve 2015-11-19 [facility] tolerance d 10-21 10:00:00 Greg problem 10:30: [id number] 00 Elimination urinary Eliminatio Resolve 2015-11-23 [facility] incontinenc n d 10-21 08:55:00 Greg e 10:30: [id number] 00 Elimination constipatio Eliminatio Resolve 2015-11-23 [facility] n n d 10-21 08:55:00 Greg 10:30: [id number] 00 Safety sanitation Safety Resolve 2015-10-22 [facility] hazards d 10-21 10:30:00 Greg present 10:30: [id number] 00 Safety risk for Safety Resolve 2015-10-29 [facility] hospitaliza d 10-22 10:00:00 Que tion 13:15: [id number] 00 Gait/Locomo gait PT/OT: Resolve 2015-10-23 Rubén tion assistive Gait/Locom d 10-22 13:15:00 Que problems device otion 13:15: [id number] present 00 Gait/Locomo knowledge/s PT/OT: Resolve 2015-10-23 Rubén tion kill Gait/Locom d 10-22 13:15:00 Que problems deficit: pt otion 13:15: [id number] 00 Gait/Locomo gait PT/OT: Resolve 2015-10-23 Rubén tion deficit Gait/Locom d 10-22 13:15:00 Que problems otion 13:15: [id number] 00 Gait/Locomo gait PT/OT: Resolve 2015-10-26 Rubén tion assistive Gait/Locom d 10-25 12:15:00 Que problems device otion 12:15: [id number] present 00 Gait/Locomo knowledge/s PT/OT: Resolve 2015-10-26 Rubén tion kill Gait/Locom d 10-25 12:15:00 Que problems deficit: pt otion 12:15: [id number] 00 Gait/Locomo gait PT/OT: Resolve 2015-10-26 Rubén tion deficit Gait/Locom d 10-25 12:15:00 Que problems otion 12:15: [id number] 00 Pain frequent Pain Mgmt Unknown [facility] pain 10-28 Greg 10:00: [id number] 00 Respiratory oxygen Respirator Unknown [facility] treatments y 10-28 [place] in home 10:00: [id number] 00 Neuro seizures Neuro/Emot Resolve 2015-2015-10-29 [facility] ion d 10-28 10:00:00 [place] 10:00: [id number] 00 Safety structural Safety Resolve 2015-2015-10-29 [facility] barriers d 10-28 10:00:00 [place] present 10:00: [id number] 00 Safety sanitation Safety Resolve 2015-10-29 [facility] hazards d 10-28 10:00:00 [place] present 10:00: [id number] 00 Safety fall risk Safety Resolve 2015-10-29 [facility] factor d 10-28 10:00:00 Greg present 10:00: [id number] 00 Safety can be left Safety Resolve 2015-10-29 [facility] alone for d 10-28 10:00:00 Greg only short 10:00: [id number] periods 00 Safety risk for Safety Resolve 2015-11-19 [facility] hospitaliza d 10-29 10:00:00 Que tion 13:30: [id number] 00 Gait/Locomo gait PT/OT: Resolve 2015-10-30 Rubén tion assistive Gait/Locom d 10-29 13:30:00 Que problems device otion 13:30: [id number] present 00 Gait/Locomo knowledge/s PT/OT: Resolve 2015-10-30 Rubén tion kill Gait/Locom d 10-29 13:30:00 Que problems deficit: pt otion 13:30: [id number] 00 Gait/Locomo gait PT/OT: Resolve 2015-10-30 Rubén tion deficit Gait/Locom d 10-29 13:30:00 Que problems otion 13:30: [id number] 00 Gait/Locomo gait PT/OT: Resolve 2015-11-02 Rubén tion assistive Gait/Locom d 11-01 13:15:00 Que problems device otion 13:15: [id number] present 00 Gait/Locomo knowledge/s PT/OT: Resolve 2015-2015-11-02 Rubén tion kill Gait/Locom d 11-01 13:15:00 Que problems deficit: pt otion 13:15: [id number] 00 Gait/Locomo gait PT/OT: Resolve 2015-11-02 Rubén tion deficit Gait/Locom d 11-01 13:15:00 Que problems otion 13:15: [id number] 00 Respiratory lung sounds Respirator Resolve 2015-2016-02-25 Analilia deficit y d 8 09:35:00 [place] 16:00: [id number] 00 Elimination urinary Eliminatio Resolve 2015-11-23 Analilia frequency n d 11-04 08:55:00 [place] 16:00: [id number] 00 Safety fall risk Safety Resolve 2015-11-19 Analilia factor d 815 10:00:00 [place] present 16:00: [id number] 00 Gait/Locomo gait PT/OT: Resolve 2015-11-06 Rubén tion assistive Gait/Locom d 11-05 14:05:00 Que problems device otion 14:05: [id number] present 00 Gait/Locomo knowledge/s PT/OT: Resolve 2015-11-06 Rubén tion kill Gait/Locom d 11-05 14:05:00 Que problems deficit: pt otion 14:05: [id number] 00 Gait/Locomo gait PT/OT: Resolve 2015-11-06 Rubén tion deficit Gait/Locom d 11-05 14:05:00 Que problems otion 14:05: [id number] 00 Endo/Nito insulin Endo/Nito Unknown [facility] admn 11-18 [place] dependence 10:00: [id number] 00 Endo/Nito glucose Endo/Nito Resolve 2017-03-24 [facility] testing d 11-18 14:32:00 [place] dependence 10:00: [id number] 00 Neuro impaired Neuro/Emot Resolve 2016-01-14 [facility] decision-ma ion d 11-18 09:45:00 Greg marcelle 10:00: [id number] 00 Neuro seizures Neuro/Emot Resolve 2015-11-19 [facility] ion d 11-18 10:00:00 [place] 10:00: [id number] 00 Safety sanitation Safety Resolve 2015-12-24 [facility] hazards d 11-18 09:30:00 [place] present 10:00: [id number] 00 Neuro memory Neuro/Emot Unknown [facility] deficit ion 11-18 [place] needing 12:15: [id number] supervision 00 Safety risk for Safety Unknown [facility] hospitaliza 11-18 [place] tion 12:15: [id number] 00 Neuro seizures Neuro/Emot Resolve 2015-12-10 Paula ion d 11-22 09:45:00 Eri 08:55: [id number] 00 Safety risk for Safety Resolve 2015-12-10 Paula hospitaliza d 11-22 09:45:00 [place] tion 08:55: [id number] 00 Infection s/s of Infection Resolve 2017-03-24 [...] 11-27 14:00:00 Que problems device otion 14:15: [id number] present 00 Gait/Locomo knowledge/s PT/OT: Resolve 2015-12-05 Rubén tion kill Gait/Locom d 11-27 14:00:00 Que problems deficit: pt otion 14:15: [id number] 00 Gait/Locomo gait PT/OT: Resolve 2015-12-05 Rubén tion deficit Gait/Locom d 11-27 14:00:00 Que problems otion 14:15: [id number] 00 Sensory impaired Sensory Resolve 2016-09-15 Paula vision d 12-02 09:00:00 [place] 11:06: [id number] 00 Elimination recurring Eliminatio Resolve 2015-12-24 Paula UTI n d 12-02 09:30:00 [place] 11:06: [id number] 00 Safety fall risk Safety Resolve 2015-12-10 Paula factor d 12-02 09:45:00 [place] present 11:06: [id number] 00 Bed transfer PT/OT: Bed Resolve 2015-12-05 Rub[facility] Mobility/Tr deficit: Mobility/T d 12-02 14:00:00 Que ansfer sit/stand ransfer 15:00: [id number] 00 Bed bed PT/OT: Bed Resolve 2015-12-05 Rubén Mobility/Tr mobility Mobility/T d 12-02 14:00:00 Que ansfer deficit ransfer 15:00: [id number] 00 Endo/Nito glucose Endo/Nito Resolve 2015-12-10 [facility] tolerance d 12-09 09:45:00 [place] problem 09:45: [id number] 00 Elimination constipatio Eliminatio Resolve 2016-03-03 [facility] n n d 12-09 10:10:00 Greg 09:45: [id number] 00 Elimination urinary Eliminatio Resolve 2015-12-17 [facility] incontinenc n d 12-09 09:30:00 [place] e 09:45: [id number] 00 Safety structural Safety Resolve 2015-12-24 [facility] barriers d 12-09 09:30:00 [place] present 09:45: [id number] 00 Safety risk for Safety Resolve 2015-12-24 [facility] hospitaliza d 12-10 09:30:00 [place] tion 11:20: [id number] 00 Bed transfer PT/OT: Bed Resolve 2016-01-04 Rub[facility] Mobility/Tr deficit: Mobility/T d 12-12 15:15:00 Que ansfer sit/stand ransfer 12:45: [id number] 00 Gait/Locomo gait PT/OT: Resolve 2015-12-21 Rubén tion assistive Gait/Locom d 12-12 14:30:00 Que problems device otion 12:45: [id number] present 00 Gait/Locomo knowledge/s PT/OT: Resolve 2015-12-21 Rubén tion kill Gait/Locom d 12-12 14:30:00 Que problems deficit: pt otion 12:45: [id number] 00 Gait/Locomo gait PT/OT: Resolve 2015-12-21 Rubén tion deficit Gait/Locom d 12-12 14:30:00 Que problems otion 12:45: [id number] 00 Endo/Nito glucose Endo/Nito Resolve 2016-01-14 [facility] tolerance d 12-16 09:45:00 [place] problem 09:30: [id number] 00 Sensory impaired Sensory Resolve 2016-09-15 [facility] hearing d 12-16 09:00:00 [place] 09:30: [id number] 00 Elimination knowledge/s Eliminatio Resolve 2015-12-17 [facility] kill n d 12-16 09:30:00 [place] deficit: pt 09:30: [id number] 00 Elimination knowledge/s Eliminatio Resolve 2015-12-17 [facility] kill n d 12-16 09:30:00 [place] deficit: cg 09:30: [id number] 00 Safety fall risk Safety Resolve 2015-12-24 [facility] factor d 12-16 09:30:00 Greg present 09:30: [id number] 00 Elimination urinary Eliminatio Resolve 2015-032016-01-14 [facility] incontinenc n d 0 09:45:00 [place] e 09:30: [id number] 00 Elimination urinary Eliminatio Resolve 2015-032016-01-14 [facility] frequency n d 0 09:45:00 [place] 09:30: [id number] 00 Elimination knowledge/s Eliminatio Resolve 2015-032015-12-24 [facility] kill n d 0 09:30:00 [place] deficit: pt 09:30: [id number] 00 Safety risk for Safety Resolve 2015-032016-01-08 [facility] hospitaliza d 0 11:20:00 Que tion 14:30: [id number] 00 Gait/Locomo gait PT/OT: Resolve 2015-032016-01-04 Rubén tion assistive Gait/Locom d 0-04 15:15:00 Que problems device otion 14:30: [id number] present 00 Gait/Locomo knowledge/s PT/OT: Resolve 2015-032016-01-04 Rubén tion kill Gait/Locom d 0-04 15:15:00 Que problems deficit: pt otion 14:30: [id number] 00 Gait/Locomo gait PT/OT: Resolve 2015-032016-01-04 Rubén tion deficit Gait/Locom d 0-04 15:15:00 Que problems otion 14:30: [id number] 00 Safety can be left Safety Resolve 2015-032016-02-04 Paula alone for d 0-07 09:45:00 Eri only short 08:00: [id number] periods 00 Endo/Nito diabetic Endo/Nito Resolve 2015-032016-01-14 Paula foot care d 0-13 09:45:00 Eri 12:00: [id number] 00 Neuro confusion Neuro/Emot Resolve 2015-032016-01-14 Paula present ion d 0-13 09:45:00 Eri 12:00: [id number] 00 Neuro anxiety Neuro/Emot Resolve 2015-032016-01-14 Paula present ion d 0-13 09:45:00 [place] 12:00: [id number] 00 Neuro seizures Neuro/Emot Resolve 2015-032016-01-08 Paula ion d 0-13 11:20:00 [place] 12:00: [id number] 00 Safety fall risk Safety Resolve 2015-032016-01-08 Paula factor d 0-13 11:20:00 Eri present 12:00: [id number] 00 Medication potential Meds Resolve 2015-032016-01-08 Paula clinically d 0-13 11:20:00 [place] significant 12:00: [id number] medication 00 issue Safety structural Safety Resolve 2015-032016-01-08 [facility] barriers d 0-18 11:20:00 [place] present 11:20: [id number] 00 Safety sanitation Safety Resolve 2015-032016-01-08 [facility] hazards d 0-18 11:20:00 [place] present 11:20: [id number] 00 Safety risk for Safety Resolve 2015-032016-01-14 [facility] hospitaliza d 0-20 09:45:00 Que tion 14:15: [id number] 00 Bed transfer PT/OT: Bed Resolve 2015-032016-01-10 Rub[facility] Mobility/Tr deficit: Mobility/T d 0-20 14:15:00 Que ansfer sit/stand ransfer 14:15: [id number] 00 Gait/Locomo gait PT/OT: Resolve 2015-032016-01-16 Rubén tion assistive Gait/Locom d 0-20 16:00:00 Que problems device otion 14:15: [id number] present 00 Gait/Locomo knowledge/s PT/OT: Resolve 2015-032016-01-16 Rubén tion kill Gait/Locom d 0-20 16:00:00 Que problems deficit: pt otion 14:15: [id number] 00 Gait/Locomo gait PT/OT: Resolve 2015-032016-01-16 Rubén tion deficit Gait/Locom d 0-20 16:00:00 Que problems otion 14:15: [id number] 00 Safety structural Safety Resolve 2015-032016-01-14 Analilia barriers d 0-21 09:45:00 [place] present 10:08: [id number] 00 Safety fall risk Safety Resolve 2015-032016-01-14 [place] factor d 0-21 09:45:00 [place] present 10:08: [id number] 00 Bed transfer PT/OT: Bed Resolve 2015-032016-01-16 Rub[facility] Mobility/Tr deficit: Mobility/T d 0-21 16:00:00 Que ansfer sit/stand ransfer 13:45: [id number] 00 Endo/Nito knowledge/s Endo/Nito Resolve 2015-032016-01-14 [facility] kill d 0-24 09:45:00 Greg deficit: pt 09:45: [id number] 00 Endo/Nito knowledge/s Endo/Nito Resolve 2015-032016-01-14 [facility] kill d 0-24 09:45:00 [place] deficit: cg 09:45: [id number] 00 Endo/Nito knowledge/s Endo/Nito Resolve 2015-032016-01-14 [facility] kill d 0-24 09:45:00 Greg deficit 09:45: [id number] hypo/hyperg 00 lycemia: pt Endo/Nito knowledge/s Endo/Nito Resolve 2015-032016-01-14 [facility] kill d 0-24 09:45:00 Greg deficit 09:45: [id number] hypo/hyperg 00 lycemia: cg Elimination diarrhea Eliminatio Resolve 2015-032016-03-03 [facility] n d 0 10:10:00 [place] 09:45: [id number] 00 Neuro depressive Neuro/Emot Resolve 2015-032016-01-14 [facility] feelings ion d 0 09:45:00 [place] present 09:45: [id number] 00 Safety sanitation Safety Resolve 2015-032016-01-14 [facility] hazards d 0 09:45:00 [place] present 09:45: [id number] 00 Safety risk for Safety Resolve 2015-032016-01-21 [facility] hospitaliza d 0 09:30:00 [place] tion 13:45: RN 00 Bed transfer PT/OT: Bed Resolve 2015-032016-01-17 [facility] Mobility/Tr deficit: Mobility/T d 0 14:00:00 Que ansfer sit/stand ransfer 14:00: [id number] 00 Gait/Locomo gait PT/OT: Resolve 2015-032016-01-17 Rubén tion assistive Gait/Locom d 0 14:00:00 Que problems device otion 14:00: [id number] present 00 Gait/Locomo knowledge/s PT/OT: Resolve 2015-032016-01-17 Rubén tion kill Gait/Locom d 0 14:00:00 Que problems deficit: pt otion 14:00: [id number] 00 Gait/Locomo gait PT/OT: Resolve 2015-032016-01-17 Rubén tion deficit Gait/Locom d 0 14:00:00 Que problems otion 14:00: [id number] 00 Endo/Nito glucose Endo/Nito Resolve 2015-032016-01-21 [facility] tolerance d 0 09:30:00 Greg problem 09:30: [id number] 00 Endo/Nito knowledge/s Endo/Nito Resolve 2015-032016-01-21 [facility] kill d 0-31 09:30:00 [place] deficit: pt 09:30: [id number] 00 Endo/Nito knowledge/s Endo/Nito Resolve 2015-032016-01-21 [facility] kill d 0-31 09:30:00 Greg deficit 09:30: [id number] hypo/hyperg 00 lycemia: pt Endo/Nito knowledge/s Endo/Nito Resolve 2015-032016-01-21 [facility] kill d 0- 09:30:00 [place] deficit 09:30: [id number] hypo/hyperg 00 lycemia: cg Neuro memory Neuro/Emot Resolve 2015-032016-02-04 [facility] deficit ion d 0- 09:45:00 Greg needing 09:30: [id number] supervision 00 Neuro impaired Neuro/Emot Resolve 2015-032016-01-21 [facility] decision-ma ion d 0- 09:30:00 [place] marcelle 09:30: [id number] 00 Safety structural Safety Resolve 2015-032016-01-21 [facility] barriers d 0-31 09:30:00 Greg present 09:30: [id number] 00 Safety sanitation Safety Resolve 2015-032016-01-21 [facility] hazards d 0-31 09:30:00 Greg present 09:30: [id number] 00 Safety fall risk Safety Resolve 2015-032016-01-21 [facility] factor d 0-31 09:30:00 Greg present 09:30: [id number] 00 Safety risk for Safety Resolve 2015-032016-02-04 [facility] hospitaliza d 03-23 09:45:00 Que tion 14:30: [id number] 00 Bed bed PT/OT: Bed Resolve 2015-032016-01-22 [facility] Mobility/Tr mobility Mobility/T d 03-23 14:30:00 Que ansfer deficit ransfer 14:30: [id number] 00 Bed transfer PT/OT: Bed Resolve 2015-032016-01-22 Rub[facility] Mobility/Tr deficit: Mobility/T d 03-23 14:30:00 Que poefer sit/stand ransfer 14:30: [id number] 00 Gait/Locomo gait PT/OT: Resolve 2015-032016-01-22 Rubén tion assistive Gait/Locom d 03-23 14:30:00 Que problems device otion 14:30: [id number] present 00 Gait/Locomo knowledge/s PT/OT: Resolve 2015-032016-01-22 Rubén tion kill Gait/Locom d 03-23 14:30:00 Que problems deficit: pt otion 14:30: [id number] 00 Gait/Locomo gait PT/OT: Resolve 2015-032016-01-22 Rubén tion deficit Gait/Locom d 03-23 14:30:00 Que problems otion 14:30: [id number] 00 Bed transfer PT/OT: Bed Resolve 2015-032016-01-28 [facility] Mobility/Tr deficit: Mobility/T d 03-25 14:15:00 Que ansfer sit/stand ransfer 14:15: [id number] 00 Gait/Locomo gait PT/OT: Resolve 2015-032016-01-28 Rubén tion assistive Gait/Locom d 03-25 14:15:00 Que problems device otion 14:15: [id number] present 00 Gait/Locomo knowledge/s PT/OT: Resolve 2015-032016-01-28 Rubén tion kill Gait/Locom d 03-25 14:15:00 Que problems deficit: pt otion 14:15: [id number] 00 Gait/Locomo gait PT/OT: Resolve 2015-032016-01-28 Rubén tion deficit Gait/Locom d 03-25 14:15:00 Que problems otion 14:15: [id number] 00 Bed transfer PT/OT: Bed Resolve 2015-032016-04-07 Rub[facility] Mobility/Tr deficit: Mobility/T d 04-01 11:15:00 Que ansfer sit/stand ransfer 13:45: [id number] 00 Gait/Locomo gait PT/OT: Resolve 2015-032016-02-15 Rubén tion assistive Gait/Locom d 04-01 09:45:00 Que problems device otion 13:45: [id number] present 00 Gait/Locomo gait PT/OT: Resolve 2015-032016-02-15 Rubén tion deficit Gait/Locom d 04-01 09:45:00 Que problems otion 13:45: [id number] 00 Elimination urinary Eliminatio Resolve 2015-032016-02-04 Sonia [...] Resolve 2015-032016-02-04 [facility] tolerance d 04-05 09:45:00 [place] problem 09:45: [id number] 00 Endo/Nito knowledge/s Endo/Nito Resolve 2015-032016-02-04 [facility] kill d 04-05 09:45:00 [place] deficit: pt 09:45: [id number] 00 Endo/Nito knowledge/s Endo/Nito Resolve 2015-032016-02-04 [facility] kill d 04-05 09:45:00 [place] deficit: cg 09:45: [id number] 00 Elimination recurring Eliminatio Resolve 2015-032016-04-07 [facility] UTI n d 04-05 10:40:00 Greg 09:45: [id number] 00 Elimination urinary Eliminatio Resolve 2015-032016-02-04 [facility] frequency n d 04-05 09:45:00 Greg 09:45: [id number] 00 Neuro impaired Neuro/Emot Resolve 2015-032016-02-18 [facility] decision-ma ion d 04-05 09:30:00 [place] marcelle 09:45: [id number] 00 Safety structural Safety Resolve 2015-032016-02-04 [facility] barriers d 04-05 09:45:00 [place] present 09:45: [id number] 00 Safety sanitation Safety Resolve 2015-032016-02-04 [facility] hazards d 04-05 09:45:00 [place] present 09:45: [id number] 00 Safety risk for Safety Resolve 2015-032016-02-18 [...] Resolve 2015-032016-02-18 [facility] tolerance d 04-19 09:30:00 [place] problem 09:30: [id number] 00 Endo/Nito knowledge/s Endo/Nito Resolve 2015-032016-02-18 [facility] kill d 04-19 09:30:00 [place] deficit: pt 09:30: [id number] 00 Endo/Nito knowledge/s Endo/Nito Resolve 2015-032016-02-18 [facility] kill d 04-19 09:30:00 Greg deficit: cg 09:30: [id number] 00 Neuro anxiety Neuro/Emot Resolve 2015-032016-02-18 [facility] present ion d 04-19 09:30:00 Greg 09:30: [id number] 00 Neuro depressive Neuro/Emot Resolve 2015-032016-02-18 [facility] feelings ion d 04-19 09:30:00 Greg present 09:30: [id number] 00 Safety structural Safety Resolve 2015-032016-02-18 [facility] barriers d 04-19 09:30:00 Greg present 09:30: [id number] 00 Safety sanitation Safety Resolve 2015-032016-02-18 [facility] hazards d 04-19 09:30:00 [place] present 09:30: [id number] 00 Safety fall risk Safety Resolve 2015-032016-02-18 [facility] factor d 04-19 09:30:00 Greg present 09:30: [id number] 00 Elimination urinary Eliminatio Resolve 2015-032016-03-03 Sonia [...] 2015-032016-12-09 [facility] n ular d 05-04 12:18:00 [place] 10:10: [id number] 00 Endo/Niot glucose Endo/Nito Resolve 2015-032016-05-19 [facility] tolerance d 05-04 09:45:00 Greg problem 10:10: [id number] 00 Endo/Nito knowledge/s Endo/Nito Resolve 2015-032016-05-19 [facility] kill d 05-04 09:45:00 Greg deficit: pt 10:10: [id number] 00 Endo/Nito knowledge/s Endo/Nito Resolve 2015-032016-05-19 [facility] kill d 05-04 09:45:00 Greg deficit: cg 10:10: [id number] 00 Endo/Nito knowledge/s Endo/Nito Resolve 2015-032016-05-19 [facility] kill d 2-12 09:45:00 [place] deficit 10:10: [id number] hypo/hyperg 00 lycemia: pt Endo/Nito knowledge/s Endo/Nito Resolve 2015-032016-05-19 [facility] kill d 2-12 09:45:00 Greg deficit 10:10: [id number] hypo/hyperg 00 lycemia: cg Nutrition knowledge/s Nutrition Resolve 2015-032016-03-25 [facility] kill d 2- 12:10:00 [place] deficit: pt 10:10: [id number] 00 Nutrition knowledge/s Nutrition Resolve 2015-032016-03-25 [facility] kill d 2- 12:10:00 Greg deficit: cg 10:10: [id number] 00 Elimination urinary Eliminatio Resolve 2015-032016-03-03 [facility] urgency n d 2- 10:10:00 [place] 10:10: [id number] 00 Elimination urinary Eliminatio Resolve 2015-032016-03-03 [facility] frequency n d 05-04 10:10:00 Greg 10:10: [id number] 00 Safety risk for Safety Resolve 2015-032016-03-18 [...] ion d 05-19 09:45:00 Greg present 09:00: [id number] 00 Neuro impaired Neuro/Emot Resolve 2015-032016-06-16 [place] decision-ma ion d 05-19 10:31:00 [place] marcelle 09:00: [id number] 00 Neuro seizures Neuro/Emot Resolve 2015-032016-03-18 [place] ion d 05-19 09:00:00 [place] 09:00: [id number] 00 Safety structural Safety Resolve 2015-032016-03-18 [place] barriers d 05-19 09:00:00 [place] present 09:00: [id number] 00 Safety sanitation Safety Resolve 2015-032016-03-18 [place] hazards d 05-19 09:00:00 [place] present 09:00: [id number] 00 Safety fall risk Safety Resolve 2015-032016-03-18 [place] factor d 05-19 09:00:00 [place] present 09:00: [id number] 00 Respiratory oxygen Respirator Unknown [place] treatments y 1-10 [place] in home 14:00: [id number] 00 Respiratory dyspnea Respirator Unknown Ashley present y 1-10 [place] 14:00: [id number] 00 Respiratory lung sounds Respirator Resolve 2016-04-07 Ashley deficit y d 1-10 10:40:00 [place] 14:00: [id number] 00 Elimination bowel Eliminatio Resolve 2016-07-28 Ashley incontinenc n d 1-10 10:09:00 [place] e 14:00: [id number] 00 Safety can be left Safety Resolve 2016-05-19 [place] alone for d 1-10 09:45:00 [place] only short 14:00: [id number] 00 Respiratory CPAP Respirator Unknown [place] treatments y 1-16 [place] in home 10:40: [id number] 00 Nutrition nutritional Nutrition Resolve 2016-05-19 Cherrise restriction d 1-16 09:45:00 Greg s 10:40: [id number] 00 Nutrition knowledge/s Nutrition Resolve 2016-05-19 Cher[facility] kill d - 09:45:00 Greg deficit: pt 10:40: [id number] 00 Nutrition knowledge/s Nutrition Resolve 2016-05-19 Cher[facility] kill d 1-16 09:45:00 [place] deficit: cg 10:40: [id number] 00 Safety structural Safety Resolve 2016-04-07 Cherrise barriers d 1-16 10:40:00 [place] present 10:40: [id number] 00 Safety sanitation Safety Resolve 2016-04-07 Cherrise hazards d -16 10:40:00 Greg present 10:40: [id number] 00 Safety fall risk Safety Resolve 2016-04-07 Cher[facility] factor d - 11:15:00 Greg present 10:40: [id number] 00 Safety risk for Safety Resolve 2016-04-07 [facility] hospitaliza d 16 11:15:00 Greg tion 10:40: [id number] 00 Bed transfer PT/OT: Bed Resolve 2016-04-07 Rubén Mobility/Tr deficit: Mobility/T d 16 11:15:00 Que mack toilet/comm ransfer 11:15: [id number] ode 00 Bed transfer PT/OT: Bed Resolve 2016-04-07 Rubén Mobility/Tr deficit: Mobility/T d 16 11:15:00 Que mack shower/tub ransfer 11:15: [id number] 00 Bed transfer PT/OT: Bed Resolve 2016-04-07 Rubén Mobility/Tr deficit: Mobility/T d 04-07 11:15:00 Que mack vehicle ransfer 11:15: [id number] 00 Bed bed PT/OT: Bed Resolve 2016-04-07 Rubén Mobility/Tr mobility Mobility/T d 16 11:15:00 Que ansfer deficit ransfer 11:15: [id number] 00 Gait/Locomo knowledge/s PT/OT: Resolve 2016-04-07 Rubén tion kill Gait/Locom d 16 11:15:00 Que problems deficit: pt otion 11:15: [id number] 00 Gait/Locomo gait PT/OT: Resolve 2016-04-07 Rubén tion deficit Gait/Locom d 04-07 11:15:00 Que problems otion 11:15: [id number] 00 Gait/Locomo gait PT/OT: Resolve 2016-04-15 Rubén tion assistive Gait/Locom d 04-07 13:45:00 Que problems device otion 11:15: [id number] present 00 Respiratory dyspnea Respirator Unknown Ashley present y 04-15 Vinnie 11:00: [id number] 00 Respiratory oxygen Respirator Unknown Ashley treatments y 04-15 Vinnie in home 11:00: [id number] 00 Integument skin Integument Resolve 2016-12-09 Ashley integrity d 04-15 12:18:00 Vinnie risk 11:00: [id number] 00 Elimination urinary Eliminatio Resolve 2016-05-19 Ashlye incontinenc n d 04-15 09:45:00 Vinnie e 11:00: [id number] 00 Safety risk for Safety Resolve 2016-04-21 [facility] hospitaliza d 04-15 09:30:00 Que tion 13:45: [id number] 00 Gait/Locomo knowledge/s PT/OT: Resolve 2016-04-18 Rubén tion kill Gait/Locom d 04-15 16:00:00 Que problems deficit: pt otion 13:45: [id number] 00 Gait/Locomo gait PT/OT: Resolve 2016-04-15 Rubén tion deficit Gait/Locom d 04-15 13:45:00 Que problems otion 13:45: [id number] 00 Gait/Locomo gait PT/OT: Resolve 2016-04-18 Rubén tion assistive Gait/Locom d 04-18 16:00:00 Que problems device otion 16:00: [id number] present 00 Gait/Locomo gait PT/OT: Resolve 2016-04-18 Rubén tion deficit Gait/Locom d 04-18 16:00:00 Que problems otion 16:00: [id number] 00 Respiratory CPAP Respirator Unknown Cherrise treatments y 04-21 [place] in home 09:30: [id number] 00 Elimination urinary Eliminatio Resolve 2016-05-19 Cherrise frequency n d 04-21 09:45:00 [place] 09:30: [id number] 00 Elimination recurring Eliminatio Resolve 2016-05-19 Cherrise UTI n d 04-21 09:45:00 [place] 09:30: [id number] 00 Elimination knowledge/s Eliminatio Resolve 2016-04-21 Cherrise kill n d 04-21 09:30:00 Greg deficit: pt 09:30: [id number] 00 Elimination knowledge/s Eliminatio Resolve 2016-04-21 Cherrise kill n d 04-21 09:30:00 Greg deficit: cg 09:30: [id number] 00 Safety sanitation Safety Resolve 2016-04-21 Cher[place] hazards d 04-21 09:30:00 Greg present 09:30: [id number] 00 Safety fall risk Safety Resolve 2016-04-21 Cherrise factor d 04-21 09:30:00 Greg present 09:30: [id number] 00 Safety risk for Safety Resolve 2016-05-05 Rub[facility] hospitaliza d 04-22 10:00:00 Que tion 13:45: [id number] 00 Gait/Locomo gait PT/OT: Resolve 2016-04-22 Rubén tion assistive Gait/Locom d 04-22 13:45:00 Que problems device otion 13:45: [id number] present 00 Gait/Locomo knowledge/s PT/OT: Resolve 2016-04-29 Rubén tion kill Gait/Locom d 04-22 16:00:00 Que problems deficit: pt otion 13:45: [id number] 00 Gait/Locomo gait PT/OT: Resolve 2016-04-22 Rubén tion deficit Gait/Locom d 04-22 13:45:00 Que problems otion 13:45: [id number] 00 Gait/Locomo gait PT/OT: Resolve 2016-04-29 Rubén tion assistive Gait/Locom d 04-25 16:00:00 Que problems device otion 16:00: [id number] present 00 Gait/Locomo gait PT/OT: Resolve 2016-04-29 Rubén tion deficit Gait/Locom d 2-03 16:00:00 Que problems otion 16:00: [id number] 00 Gait/Locomo gait PT/OT: Resolve 2016-05-02 Rubén tion assistive Gait/Locom d 2-10 16:40:00 Que problems device otion 16:40: [id number] present 00 Gait/Locomo gait PT/OT: Resolve 2016-05-02 Rubén tion deficit Gait/Locom d 2-10 16:40:00 Que problems otion 16:40: [id number] 00 Safety sanitation Safety Resolve 2016-06-16 Cher[facility] hazards d 2-13 10:31:00 Greg present 10:00: [id number] 00 Safety fall risk Safety Resolve 2016-05-05 Cherrise factor d 2-13 10:00:00 Greg present 10:00: [id number] 00 Safety risk for Safety Unknown Rub[facility] hospitaliza 2- Que tion 17:00: [id number] 00 Gait/Locomo gait PT/OT: Resolve 2016-05-05 Rubén tion assistive Gait/Locom d 2-13 17:00:00 Que problems device otion 17:00: [id number] present 00 Gait/Locomo gait PT/OT: Resolve 2016-05-05 Rubén tion deficit Gait/Locom d 2-13 17:00:00 Que problems otion 17:00: [id number] 00 Respiratory nebulizer Respirator Resolve 2016-12-09 Ashley treatment y d 2- 12:18:00 Vinnie in home 10:00: [id number] 00 Safety risk for Safety Resolve 2016-05-19 Rub[facility] hospitaliza d 2-21 09:45:00 Que tion 16:00: [id number] 00 Gait/Locomo gait PT/OT: Resolve 2016-05-13 Rubén tion assistive Gait/Locom d 2-21 16:00:00 Que problems device otion 16:00: [id number] present 00 Gait/Locomo gait PT/OT: Resolve 2016-05-13 Rubén tion deficit Gait/Locom d 2-21 16:00:00 Que problems otion 16:00: [id number] 00 Gait/Locomo gait PT/OT: Resolve 2016-05-15 Rubén tion assistive Gait/Locom d 05-15 13:00:00 Que problems device otion 13:00: [id number] present 00 Gait/Locomo gait PT/OT: Resolve 2016-05-15 Rubén tion deficit Gait/Locom d 05-15 13:00:00 Que problems otion 13:00: [id number] 00 Safety fall risk Safety Resolve 2016-05-19 Cher[place] factor d 05-19 09:45:00 [place] present 09:45: [id number] 00 Gait/Locomo gait PT/OT: Resolve 2016-05-19 Rubén tion assistive Gait/Locom d 05-19 14:30:00 Que problems device otion 14:30: [id number] present 00 Gait/Locomo gait PT/OT: Resolve 2016-05-19 Rubén tion deficit Gait/Locom d 05-19 14:30:00 Que problems otion 14:30: [id number] 00 Test/Treatm tests Test/Injec Active Ashley ent ordered t/Sebastien 05-21 Vinnie [id number] Safety risk for Safety Resolve 2016-06-16 [facility] hospitaliza d 05-21 10:31:00 Quinn tion 14:00: [id number] 00 Gait/Locomo gait PT/OT: Resolve 2016-05-29 Rubén tion assistive Gait/Locom d 05-22 13:30:00 Que problems device otion 12:35: [id number] present 00 Gait/Locomo gait PT/OT: Resolve 2016-05-29 Rubén tion deficit Gait/Locom d 05-22 13:30:00 Que problems otion 12:35: [id number] 00 Pain frequent Pain Mgmt Unknown Ashley pain 05-27 Vinnie 10:30: [id number] 00 Nutrition nutritional Nutrition Resolve 2016-07-14 Ashley restriction d 05-27 09:45:00 Vinnie williamson 10:30: [id number] 00 Elimination urinary Eliminatio Resolve 2016-12-09 Ashley incontinenc n d 05-27 12:18:00 Vinnie gaffney 10:30: [id number] 00 Elimination urinary Eliminatio Resolve 2016-12-09 Ashley frequency n d 05-27 12:18:00 Vinnie 10:30: [id number] 00 Endo/Nito glucose Endo/Nito Resolve 2016-12-09 Cher[facility] tolerance d 3-13 12:18:00 Greg problem 11:10: [id number] 00 Endo/Nito knowledge/s Endo/Nito Resolve 2016-12-09 Cher[place] kill d 3- 12:18:00 [place] deficit: pt 11:10: [id number] 00 Elimination constipatio Eliminatio Resolve 2016-12-09 Cherrise n n d 3 12:18:00 Greg 11:10: [id number] 00 Safety fall risk Safety Resolve 2016-06-16 Cher[place] factor d 3-13 10:31:00 Greg present 11:10: [id number] 00 Gait/Locomo gait PT/OT: Resolve 2016-06-05 Rubén tion assistive Gait/Locom d 3-13 13:30:00 Que problems device otion 14:45: [id number] present 00 Gait/Locomo gait PT/OT: Resolve 2016-06-05 Rubén tion deficit Gait/Locom d 3-13 13:30:00 Que problems otion 14:45: [id number] 00 Gait/Locomo gait PT/OT: Resolve 2016-06-12 Rubén tion assistive Gait/Locom d 3-20 15:30:00 Que problems device otion 15:30: [id number] present 00 Gait/Locomo gait PT/OT: Resolve 2016-06-12 Rubén tion deficit Gait/Locom d 3-20 15:30:00 Que problems otion 15:30: [id number] 00 Endo/Nito knowledge/s Endo/Nito Resolve 2016-12-09 Cher[facility] kill d 3 12:18:00 Greg deficit: cg 10:31: [id number] 00 Nutrition knowledge/s Nutrition Resolve 2016-07-14 [place] kill d 06-16 09:45:00 [place] deficit: pt 10:31: [id number] 00 Nutrition knowledge/s Nutrition Resolve 2016-07-14 [facility] kill d 06-16 09:45:00 [place] deficit: cg 10:31: [id number] 00 Elimination urinary Eliminatio Resolve 2016-12-09 Cher[facility] urgency n d 06-16 12:18:00 [place] 10:31: [id number] 00 Elimination diarrhea Eliminatio Resolve 2016-12-09 Cher[facility] n d 06-16 12:18:00 Greg 10:31: [id number] 00 Neuro depressive Neuro/Emot Resolve 2016-07-14 Cher[facility] feelings ion d 06-16 09:45:00 [place] present 10:31: [id number] 00 Safety can be left Safety Resolve 2016-06-16 Cherrise alone for d 06-16 10:31:00 Greg only short 10:31: [id number] periods 00 Musculoskel knowledge/s Musculoske Resolve 2016-07-14 Cherrise etal kill letal d 06-16 09:45:00 Greg deficit: cg 10:31: [id number] 00 Musculoskel knowledge/s Musculoske Resolve 2016-07-14 Cherrise etal kill letal d 06-16 09:45:00 [place] deficit: pt 10:31: [id number] 00 Safety risk for Safety Unknown Rubén hospitaliza 06-16 Que tion 14:30: [id number] 00 Gait/Locomo gait PT/OT: Resolve 2016-06-18 Rubén tion assistive Gait/Locom d 06-16 16:15:00 Que problems device otion 14:30: [id number] present 00 Gait/Locomo gait PT/OT: Resolve 2016-06-18 Rubén tion deficit Gait/Locom d 06-16 16:15:00 Que problems otion 14:30: [id number] 00 Safety can be left Safety Resolve 2016-11-10 Ashley adam for d 06-23 13:50:00 Vinnie larios nai 09:00: [id number] periods 00 Gait/Locomo gait PT/OT: Resolve 2016-07-28 Rubén tion assistive Gait/Locom d 06-23 16:40:00 Que problems device otion 16:50: [id number] present 00 Gait/Locomo gait PT/OT: Resolve 2016-07-28 Rubén tion deficit Gait/Locom d 06-23 16:40:00 Que problems otion 16:50: [id number] 00 Neuro impaired Neuro/Emot Resolve 2017-03-24 Cherrise decision-ma ion d 06-30 14:32:00 [place] marcelle 09:45: [id number] 00 Neuro seizures Neuro/Emot Resolve 2016-08-11 Geni ion d 06-30 10:15:00 Greg 09:45: [id number] 00 Safety fall risk Safety Resolve 2016-07-14 Cher[place] factor d 06-30 09:45:00 [place] present 09:45: [id number] 00 Safety risk for Safety Resolve 2016-07-14 [facility] hospital[facility] d 06-30 09:45:00 [place] tion 09:45: [id number] 00 Medication oral med Meds Unknown Estelita assistance 07-08 Uliss[place] required 09:05: [id number] 00 Medication injectable Meds Unknown Estelita med 07-08 [place] assistance 09:05: [id number] required 00 Safety risk for Safety Resolve 2016-08-11 Rub[facility] hospitaliza d 07-15 10:15:00 Que tion 13:40: [id number] 00 Medication oral med Meds Unknown Estelita assistance 07-21 [place] required 08:48: [id number] 00 Medication injectable Meds Unknown Estelita med 07-21 Uliss[place] assistance 08:48: [id number] required 00 Musculoskel transfer Musculoske Resolve 2016-10-27 Estelita etal assistance letkatie d 07-21 09:55:00 [place] required 08:48: [id number] 00 Musculoskel knowledge/s Musculoske Resolve 2016-08-11 Estelita etal kill letal d 07-21 10:15:00 [place] deficit: pt 08:48: [id number] 00 Musculoskel knowledge/s Musculoske Resolve 2016-08-11 Estelita etal kill letal d 07-21 10:15:00 [place] deficit: cg 08:48: [id number] 00 Musculoskel requires Musculoske Resolve 2016-10-27 Estelita etal human letal d 07-21 09:55:00 [place] assist to 08:48: [id number] leave home 00 Activity ADL Activity Resolve 2016-09-15 Estelita assistance d 07-28 09:00:00 [place] required 10:09: [id number] 00 Safety fall risk Safety Resolve 2016-08-11 Estelita factor d 07-28 10:15:00 Ul[place] present 10:09: [id number] 00 Gait/Locomo gait PT/OT: Resolve 2016-07-30 Rubén tion assistive Gait/Locom d -10 15:30:00 Que problems device otion 15:30: [id number] present 00 Gait/Locomo gait PT/OT: Resolve 2016-07-30 Rbuén tion deficit Gait/Locom d -10 15:30:00 Que problems otion 15:30: [id number] 00 Elimination bowel Eliminatio Resolve 2016-12-09 Estelita incontinenc n d 08-04 12:18:00 Ulisses e 09:00: [id number] 00 Neuro depressive Neuro/Emot Resolve 2017-03-24 Cher[place] feelings ion d 08-11 14:32:00 Greg present 10:15: [id number] 00 Safety cannot be Safety Resolve 2016-12-09 Ashley left alone d 08-13 12:18:00 Vinnei 09:00: [id number] 00 Safety fall risk Safety Resolve 2016-11-10 Ashley factor d 08-13 13:50:00 Vinnie present 09:00: [id number] 00 Safety risk for Safety Resolve 2016-11-10 Ashley meza d 08-13 13:50:00 Vinnie tion 09:00: [id number] 00 Endo/Nito diabetic Endo/Nito Resolve 2016-12-23 Estelita foot care d 08-19 13:35:00 Ulisses 16:15: [id number] 00 Elimination UTI within Eliminatio Resolve 2016-09-22 Estelita past 14 n d 08-19 12:30:00 Ulissse days 16:15: [id number] 00 Neuro confusion Neuro/Emot Resolve 2017-03-24 Estelita present ion d 08-19 14:32:00 Ulisses 16:15: [id number] 00 Neuro anxiety Neuro/Emot Resolve 2017-03-24 Estelita present ion d 08-19 14:32:00 Ulisses 16:15: [id number] 00 Medication oral med Meds Unknown Estelita assistance 08-19 Ulisses required 16:15: [id number] 00 Medication injectable Meds Unknown Estelita med 08-19 Ulisses assistance 16:15: [id number] required 00 Medication oral med Meds Unknown Maryse assistance 08-19 Regeczi required 16:15: [id number] 00 Musculoskel knowledge/s Musculoske Resolve 2016-09-15 Estelita etal kill letal d 08-19 09:00:00 [place] deficit: pt 16:15: [id number] 00 Respiratory lung sounds Respirator Resolve 2016-11-03 Estelita deficit y d 09-01 09:58:00 Ulisses 11:23: [id number] 00 Neuro seizures Neuro/Emot Resolve 2016-12-09 Estelita ion d 09-08 12:18:00 Ulisses 09:30: [id number] 00 Activity ADL Activity Unknown Estelita assistance 09-29 Ulisses required 10:30: [id number] 00 Cardio chest pain Cardiovasc Resolve 2016-12-09 Estelita ular d 10-14 12:18:00 Ulisess 09:30: [id number] 00 Safety can be left Safety Unknown Estelita alone for 11-10 Ulisses only short 13:50: [id number] periods 00 Safety risk for [facility] Ulisses tion 10:25: [id number] 00 Safety can be left Safety Resolve 2016-12-09 Estelita alone for d 11-25 12:18:00 Ulisses only short 10:03: [id number] periods 00 Safety fall risk Safety Resolve 2016-12-09 Estelita factor d 11-25 12:18:00 Ulisses present 10:03: [id number] 00 Activity ADL Activity Resolve 2017-03-10 Estelita assistance d 12-12 14:00:00 [place]iss[place] required 13:07: [id number] 00 Safety risk for Safety Resolve 2016-12-16 [facility] d 12-12 10:39:00 Ulisses tion 13:07: [id number] 00 Safety cannot be Safety Resolve 2017-01-27 Estelita left alone d 12-12 13:44:00 Ulisses 13:07: [id number] 00 Activity ADL Activity Unknown Estelita assistance 12-12 Ulisses required 13:43: [id number] 00 Safety risk for Safety [facility] 10:39[facility] Ulisses tion 13:43: [id number] 00 Elimination urinary Eliminatio Resolve 2016-12-23 Estelita incontinenc n d 12-16 13:35:00 Ulisses e 10:39: [id number] 00 Elimination bowel Eliminatio Active Estelita incontinenc n 12-16 Ulisses e 10:39: [id number] 00 Elimination constipatio Eliminatio Active Estelita n n 12-16 Ulisses 10:39: [id number] 00 Elimination diarrhea Eliminatio Active Estelita n 9-26 Ulisses 10:39: [id number] 00 Elimination urinary Eliminatio Resolve 2016-032017-03-10 Estelita incontinenc n d 0-10 14:00:00 Ulisses e 13:16: [id number] 00 Safety risk for Safety Resolve 2016-032017-01-27 Estelita hospitaliza d 0-10 13:44:00 Ulisses tion 13:16: [id number] 00 Safety can be left Safety Resolve 2016-032017-01-27 Estelita alone for d 0-10 13:44:00 Ulisses only short 13:16: [id number] periods 00 Cardio chest pain Cardiovasc Active 2016-03 Divina ular 0-17 [place] 17:00: [id number] 00 Cardio edema Cardiovasc Resolve 2016-032017-02-10 Divina ular d 0-17 12:43:00 [place] 17:00: [id number] 00 Cardio hypertensio Cardiovasc Active 2016-03 Divina n ular 0-17 [place] 17:00: [id number] 00 Respiratory dyspnea Respirator Resolve 2016-032017-02-10 Divina present y d 0-17 12:43:00 [place] 17:00: [id number] 00 Respiratory oxygen Respirator Active 2016-03 Divina treatments y 0-17 [place] in home 17:00: [id number] 00 Respiratory lung sounds Respirator Resolve 2016-032017-02-10 Divina deficit y d 0-17 12:43:00 [place] 17:00: [id number] 00 Respiratory CPAP Respirator Resolve 2016-032018-02-16 Divina treatments y d 0-17 09:41:00 [place] in home 17:00: [id number] 00 Respiratory nebulizer Respirator Resolve 2016-032018-02-16 Divina treatment y d 0-17 09:41:00 [place] in home 17:00: [id number] 00 Respiratory knowledge/s Respirator Resolve 2016-032017-01-27 Divina kill y d 0-17 13:44:00 [place] deficit: pt 17:00: [id number] 00 Safety fall risk Safety Resolve 2016-032017-01-27 Estelita factor d - 13:44:00 Ulisses present 13:44: [id number] 00 Safety risk for Safety Resolve 2016-032017-03-03 Estelita hospitaliza d 1-08 15:22:00 Ulisses tion 13:03: [id number] 00 Safety can be left Safety Resolve 2016-032017-03-03 Estelita alone for d 1-14 15:22:00 Ulisses only short 13:51: [id number] periods 00 Respiratory lung sounds Respirator Resolve 2016-032017-03-10 Estelita deficit y d 1-28 14:00:00 Ulisses 11:10: [id number] 00 Gait/Locomo gait PT/OT: Resolve 2016-032017-09-10 Rubén tion assistive Gait/Locom d 2-14 11:30:00 Que problems device otion 13:15: [id number] present 00 Safety risk for Safety Resolve 2016-032017-03-10 Rub[facility] hospitaliza d 2-18 14:00:00 Que tion 14:15: [id number] 00 Gait/Locomo gait PT/OT: Resolve 2016-032017-09-10 Rubén tion deficit Gait/Locom d 2-18 11:30:00 Que problems otion 14:15: [id number] 00 Sensory impaired Sensory Resolve 2016-032017-03-24 Estelita hearing d 2- 14:32:00 Ulisses 14:00: [id number] 00 Safety can be left Safety Resolve 2016-032017-03-10 Estelita alone for d 2- 14:00:00 Ulisses only short 14:00: [id number] periods 00 Safety risk for Safety Resolve 2016-032017-03-18 Estelita hospitaliza d 2- 14:00:00 Ulisses tion 10:28: [id number] 00 Respiratory lung sounds Respirator Resolve 2016-032017-03-31 Estelita deficit y d - 16:04:00 Ulisses 14:00: [id number] 00 Elimination urinary Eliminatio Resolve 2016-032017-03-24 Estelita incontinenc n d 05-19 14:32:00 Ulisses e 14:00: [id number] 00 Safety can be left Safety Resolve 2016-032017-03-31 Estelita alone for d 2- 16:04:00 Ulisses only short 14:00: [id number] periods 00 Respiratory dyspnea Respirator Resolve 2017-11-24 Estelita present y d 03-24 14:00:00 Ulisses 14:32: [id number] 00 Nutrition knowledge/s Nutrition Resolve 2017-03-31 Estelita kill d 03-24 16:04:00 Ulisses deficit: pt 14:32: [id number] 00 Nutrition knowledge/s Nutrition Resolve 2017-03-31 Estelita kill d 03-24 16:04:00 Ulisses deficit: cg 14:32: [id number] 00 Activity ADL Activity Unknown Estelita assistance 03-24 Ulisses required 14:32: [id number] 00 Safety fall risk Safety Resolve 2017-03-24 Estelita factor d 03-24 14:32:00 Ulisses present 14:32: [id number] 00 Safety risk for Safety Resolve 2017-03-24 Estelita hospitaliza d 03-24 14:32:00 Ulisses tion 14:32: [id number] 00 Medication injectable Meds Unknown Estelita med 03-24 Ulisses assistance 14:32: [id number] required 00 Nutrition nutritional Nutrition Resolve 2017-03-31 Estelita restriction d 03-26 16:04:00 Ulisses s 12:16: [id number] 00 Safety risk for Safety Resolve 2017-03-31 Estelita hospitaliza d 03-26 16:04:00 Ulisses tion 12:16: [id number] 00 Bed transfer PT/OT: Bed Resolve 2017-09-10 Rubén Mobility/Tr deficit: Mobility/T d - 11:30:00 Que mack sit/stand ransfer 14:00: [id number] 00 Bed transfer PT/OT: Bed Resolve 2017-09-10 Rubén Mobility/Tr deficit: Mobility/T d 03-26 11:30:00 Que mack standing ransfer 14:00: [id number] pivot 00 Bed transfer PT/OT: Bed Resolve 2017-09-10 Rubén Mobility/Tr deficit: Mobility/T d - 11:30:00 Que mack toilet/comm ransfer 14:00: [id number] ode 00 Bed transfer PT/OT: Bed Resolve 2017-09-10 Rubén Mobility/Tr deficit: Mobility/T d 03-26 11:30:00 Que mack shower/tub ransfer 14:00: [id number] 00 Bed transfer PT/OT: Bed Resolve 2017-09-10 Rubén Mobility/Tr deficit: Mobility/T d 03-26 11:30:00 Que mack vehicle ransfer 14:00: [id number] 00 Bed bed PT/OT: Bed Active Rubén Mobility/Tr mobility Mobility/T 03-26 Que mack deficit ransfer 14:00: [id number] 00 Endo/Nito anti-coagul Endo/Nito Resolve 2017-09-22 Estelita ation d 03-31 12:21:00 Ulisses therapy 16:04: [id number] 00 Endo/Nito diabetic Endo/Nito Resolve 2017-03-31 Estelita foot care d 03-31 16:04:00 Ulisses 16:04: [id number] 00 Elimination urinary Eliminatio Resolve 2017-03-31 Estelita incontinenc n d 03-31 16:04:00 Ulisses e 16:04: [id number] 00 Neuro confusion Neuro/Emot Resolve 2017-10-27 Estelita present ion d 03-31 10:31:00 Ulisses 16:04: [id number] 00 Medication oral med Meds Resolve 2017-04-06 Estelita assistance d 03-31 12:56:00 Ulisses required 16:04: [id number] 00 Medication injectable Meds Resolve 2017-04-06 Estelita med d 03-31 12:56:00 Ulisses assistance 16:04: [id number] required 00 Respiratory lung sounds Respirator Resolve 2017-04-06 Estelita deficit y d 04-03 12:56:00 Ulisses 11:44: [id number] 00 Endo/Nito diabetic Endo/Nito Resolve 2017-04-06 Estelita foot care d 1-12 12:56:00 Ulisses 11:44: [id number] 00 Elimination urinary Eliminatio Resolve 2017-04-06 Estelita incontinenc n d - 12:56:00 Ulisses e 11:44: [id number] 00 Musculoskel requires Musculoske Resolve 2017-04-20 Estelita etal human letal d 04-06 09:23:00 Ulisses assist to 12:56: [id number] leave home 00 Musculoskel requires Musculoske Resolve 2017-04-20 Estelita etal special letal d 04-06 09:23:00 Ulisses transportat 12:56: [id number] ion 00 Respiratory lung sounds Respirator Resolve 2017-04-20 Estelita deficit y d 04-13 09:23:00 Ulisses 08:30: [id number] 00 Elimination urinary Eliminatio Resolve 2017-04-28 Estelita incontinenc n d 04-13 12:19:00 Ulisses e 08:30: [id number] 00 Safety risk for Safety Active Estelita hospitaliza 04-13 Ulisses tion 08:30: [id number] 00 Safety can be left Safety Resolve 2017-04-20 Estelita alone for d 04-13 09:23:00 Ulisses only short 08:30: [id number] periods 00 Respiratory lung sounds Respirator Resolve 2017-07-21 Estelita deficit y d 04-28 12:47:00 Ulisses 12:19: [id number] 00 Safety can be left Safety Resolve 2017-05-05 Estelita alone for d 04-28 11:50:00 Ulisses only short 12:19: [id number] periods 00 Respiratory pneumonia Respirator Resolve 2017-07-21 Estelita y d - 12:47:00 Ulisses 11:50: [id number] 00 Endo/Nito diabetic Endo/Nito Resolve 2017-10-27 Estelita foot care d - 10:31:00 Ulisses 11:50: [id number] 00 Elimination urinary Eliminatio Resolve 2017-07-14 Maryse incontinenc n d 2-13 12:22:00 Regeczi e 11:50: [id number] 00 Activity ADL Activity Resolve 2017-12-29 Maryse assistance d 2- 11:16:00 Regeczi required 11:50: [id number] 00 Safety fall risk Safety Resolve 2017-07-14 Estelita factor d 2- 12:22:00 Ulisses present 11:50: [id number] 00 Medication oral med Meds Resolve 2017-07-14 Estelita assistance d 2- 12:22:00 Ulisses required 11:50: [id number] 00 Medication injectable Meds Resolve 2017-07-14 Estelita med d 05-05 12:22:00 Ulisses assistance 11:50: [id number] required 00 Medication potential Meds Resolve 2017-07-14 Estelita clinically d 05-05 12:22:00 Ulisses significant 11:50: [id number] medication 00 issue Musculoskel transfer Musculoske Unknown Estelita etal assistance letal 05-05 Ulisses required 11:50: [id number] 00 Musculoskel requires Musculoske Unknown Estelita etal special letal 2- Ulisses transportat 11:50: [id number] ion 00 Endo/Nito glucose Endo/Nito Resolve 2017-10-27 Estelita tolerance d 2 10:31:00 Ulisses problem 10:40: [id number] 00 Endo/Nito knowledge/s Endo/Nito Resolve 2017-09-29 Estelita kill d 05-12 11:58:00 Ulisses deficit: cg 10:40: [id number] 00 Endo/Nito knowledge/s Endo/Nito Resolve 2017-09-29 Estelita kill d 05-12 11:58:00 Ulisses deficit 10:40: [id number] hypo/hyperg 00 lycemia: cg Safety can be left Safety Resolve 2017-07-21 Estelita alone for d 05-12 12:47:00 Ulisses only short 10:40: [id number] periods 00 Infection s/s of Infection Resolve 2017-12-01 Estelita infection d 2- 10:00:00 Ulisses 14:00: [id number] 00 Musculoskel requires Musculoske Resolve 2017-10-13 Estelita etal human letal d 05-26 10:51:00 Ulisses assist to 13:58: [id number] leave home 00 Musculoskel requires Musculoske Resolve 2017-10-13 Estelita etal special letal d 05-26 10:51:00 Ulisses transportat 13:58: [id number] ion 00 Safety cannot be Safety Resolve 2017-07-21 Estelita left alone d 07-07 12:47:00 Ulisses 12:05: [id number] 00 Safety knowledge/s Safety Resolve 2017-07-14 Estelita kill d 07-14 12:22:00 Ulisses deficit: pt 12:22: [id number] 00 Elimination urinary Eliminatio Resolve 2017-07-21 Estelita incontinenc n d 07-21 12:47:00 Ulisses e 12:47: [id number] 00 Neuro impaired Neuro/Emot Resolve 2017-10-27 Estelita decision-ma ion d 07-21 10:31:00 Ulisses marcelle 12:47: [id number] 00 Activity ADL Activity Unknown Estelita assistance 07-21 Ulisses required 12:47: [id number] 00 Safety fall risk Safety Resolve 2017-12-01 Estelita factor d 07-21 10:00:00 Ulisses present 12:47: [id number] 00 Medication injectable Meds Resolve 2017-08-24 Estelita med d 07-21 12:12:00 Ulisses assistance 12:47: [id number] required 00 Respiratory lung sounds Respirator Resolve 2017-07-28 Estelita deficit y d 07-24 12:01:00 Ulisses 12:50: [id number] 00 Elimination urinary Eliminatio Resolve 2017-09-22 Estelita incontinenc n d 07-24 12:21:00 Ulisses e 12:50: [id number] 00 Safety can be left Safety Resolve 2017-12-29 Estelita alone for d 07-24 11:16:00 Ulisses only short 12:50: [id number] periods 00 Safety cannot be Safety Resolve 2017-12-29 Estelita left alone d 07-28 11:16:00 Ulisses 12:01: [id number] 00 Safety knowledge/s Safety Resolve 2017-12-01 Estelita kill d 07-28 10:00:00 Ulisses deficit: pt 12:01: [id number] 00 Respiratory lung sounds Respirator Resolve 2017-10-27 Estelita deficit y d 07-30 10:31:00 Ulisses 10:57: [id number] 00 Elimination recurring Eliminatio Resolve 2017-09-07 Estelita UTI n d 09-01 09:49:00 Ulisses 10:54: [id number] 00 Musculoskel transfer Musculoske Resolve 2017-10-13 Estelita etal assistance letal d 09-07 10:51:00 Ulisses required 09:49: [id number] 00 Elimination recurring Eliminatio Resolve 2017-09-22 Estelita UTI n d 09-22 12:21:00 Ulisses 12:21: [id number] 00 Neuro depressive Neuro/Emot Resolve 2017-12-29 Estelita feelings ion d 09-22 11:16:00 Ulisses present 12:21: [id number] 00 Medication injectable Meds Resolve 2017-09-29 Estelita med d 09-22 11:58:00 Ulisses assistance 12:21: [id number] required 00 Endo/Nito anti-coagul Endo/Nito Resolve 2017-10-27 Estelita ation d 10-06 10:31:00 Ulisses therapy 11:32: [id number] 00 Safety knowledge/s Safety Resolve 2017-12-01 Estelita kill d 10-06 10:00:00 Ulisses deficit: cg 11:32: [id number] 00 Musculoskel transfer Musculoske Unknown Estelita etal assistance letal 10-20 Ulisses required 12:01: [id number] 00 Musculoskel requires Musculoske Resolve 2017-12-01 Estelita etal human letal d 10-20 10:00:00 Ulisses assist to 12:01: [id number] leave home 00 Neuro anxiety Neuro/Emot Resolve 2017-12-29 Estelita present ion d 10-27 11:16:00 Ulisses 10:31: [id number] 00 Medication oral med Meds Resolve 2017-11-11 Estelita assistance d 10-27 10:50:00 Ulisses required 10:31: [id number] 00 Medication injectable Meds Resolve 2017-11-11 Estelita med d 10-27 10:50:00 Ulisses assistance 10:31: [id number] required 00 Bed transfer PT/OT: Bed Active Rubén Mobility/Tr deficit: Mobility/T 8-10 Que ansfer sit/stand ransfer 10:30: [id number] 00 Bed transfer PT/OT: Bed Active Rubén Mobility/Tr deficit: Mobility/T 8-10 Que ansfer toilet/comm ransfer 10:30: [id number] ode 00 Bed transfer PT/OT: Bed Active Rubén Mobility/Tr deficit: Mobility/T 8-10 Que ansfer shower/tub ransfer 10:30: [id number] 00 Bed transfer PT/OT: Bed Active Rubén Mobility/Tr deficit: Mobility/T 8-10 Que ansfer vehicle ransfer 10:30: [id number] 00 Gait/Locomo gait PT/OT: Active Rubén tion deficit Gait/Locom 8-10 Que problems otion 10:30: [id number] 00 Gait/Locomo gait PT/OT: Active Rubén tion assistive Gait/Locom 8-10 Que problems device otion 10:30: [id number] present 00 Gait/Locomo knowledge/s PT/OT: Active Rubén tion kill Gait/Locom 8-10 Que problems deficit: pt otion 10:30: [id number] 00 Respiratory lung sounds Respirator Resolve 2017-11-18 Estelita deficit y d 11-03 15:52:00 Ulisses 10:41: [id number] 00 Endo/Nito anti-coagul Endo/Nito Resolve 2018-08-03 Estelita ation d 11-03 12:10:00 Ulisses therapy 10:41: [id number] 00 Elimination urinary Eliminatio Resolve 2017-11-18 Estelita incontinenc n d 11-17 15:52:00 Ulisses e 08:59: [id number] 00 Nutrition knowledge/s Nutrition Active Estelita kill 11-18 Ulisses deficit: pt 15:52: [id number] 00 Nutrition knowledge/s Nutrition Active Estelita kill 11-18 Ulisses deficit: cg 15:52: [id number] 00 Nutrition nutritional Nutrition Resolve 2017-11-18 Estelita restriction d 11-18 15:52:00 Ulisses s 15:52: [id number] 00 Neuro impaired Neuro/Emot Resolve 2017-12-29 Estelita decision-ma ion d 11-18 11:16:00 Ulisses marcelle 15:52: [id number] 00 Medication injectable Meds Resolve 2017-11-24 Estelita med d 11-18 14:00:00 Ulisses assistance 15:52: [id number] required 00 Musculoskel transfer Musculoske Resolve 2017-12-01 Estelita etal assistance letal d 11-18 10:00:00 Ulisses required 15:52: [id number] 00 Nutrition nutritional Nutrition Resolve 2017-11-24 Rubén restriction d 11-23 14:00:00 Que s 12:20: [id number] 00 Respiratory lung sounds Respirator Resolve 2017-12-08 Estelita deficit y d 11-24 10:45:00 Ulisses 14:00: [id number] 00 Elimination urinary Eliminatio Resolve 2017-12-29 Estelita incontinenc n d 11-24 11:16:00 Ulisses e 14:00: [id number] 00 Respiratory dyspnea Respirator Resolve 2017-12-15 Estelita present y d 11-27 11:24:00 Ulisses 17:09: [id number] 00 Musculoskel requires Musculoske Resolve 2018-11-10 Estelita etal human letal d 12-08 09:15:00 Ulisses assist to 10:45: [id number] leave home 00 Bed transfer PT/OT: Bed Active Rubén Mobility/Tr deficit: Mobility/T 12-14 Que mack standing ransfer 13:15: [id number] pivot 00 Respiratory lung sounds Respirator Resolve 2018-02-16 Estelita deficit y d 12-15 09:41:00 Ulisses 11:24: [id number] 00 Respiratory dyspnea Respirator Active 2017-03 Estelita present y Ulisses 09:53: [id number] 00 Elimination urinary Eliminatio Resolve 2017-032018-02-16 Estelita incontinenc n d 0-10 09:41:00 Ulisses e 13:18: [id number] 00 Activity ADL Activity Unknown 2017-03 Estelita assistance 0-10 Ulisses required 13:18: [id number] 00 Safety cannot be Safety Resolve 2017-032018-08-03 Estelita left alone d 0-10 12:10:00 Ulisses 13:18: [id number] 00 Neuro anxiety Neuro/Emot Resolve 2017-032018-12-08 Estelita present ion d 0-16 10:56:00 Ulisses 10:49: [id number] 00 Neuro impaired Neuro/Emot Resolve 2017-032018-12-08 Estelita decision-ma ion d 0-16 10:56:00 Ulisses marcelle 10:49: [id number] 00 Nutrition nutritional Nutrition Resolve 2017-032018-02-16 Estelita restriction d 0-30 09:41:00 Ulisses s 10:43: [id number] 00 Safety fall risk Safety Resolve 2017-032018-08-03 Estelita factor d 0-30 12:10:00 Ulisses present 10:43: [id number] 00 Medication injectable Meds Resolve 2017-032018-02-09 Estelita med d 0-30 14:18:00 Ulisses assistance 10:43: [id number] required 00 Respiratory BiPAP Respirator Active 2017-03 Estelita treatments y 04-11 Ulisses in home 14:18: [id number] 00 Medication oral med Meds Resolve 2017-032018-02-09 Estelita assistance d 04-11 14:18:00 Ulisses required 14:18: [id number] 00 IV k/s IV Active 2017-03 Estelita deficit: IV 04-11 Ulisses care - pt 14:18: [id number] 00 Endo/Nito glucose Endo/Nito Active 2017-03 Estelita tolerance 04-18 Ulisses problem 09:41: [id number] 00 Endo/Nito knowledge/s Endo/Nito Active 2017-03 Estelita kill 04-18 Ulsises deficit 09:41: [id number] hypo/hyperg 00 lycemia: cg Respiratory lung sounds Respirator Active 2017-03 Estelita deficit y 04-26 Ulisses 09:51: [id number] 00 Sensory impaired Sensory Resolve 2017-032018-12-08 Estelita verbal d 04-26 10:56:00 Ulisses communicati 09:51: [id number] on 00 Nutrition nutritional Nutrition Resolve 2017-032018-06-22 Estelita restriction d 04-26 11:30:00 Ulisses s 09:51: [id number] 00 Elimination urinary Eliminatio Resolve 2017-032018-06-22 Estelita incontinenc n d 04-26 11:30:00 Ulisses e 09:51: [id number] 00 Endo/Nito diabetic Endo/Nito Active 2017-03 Estelita foot care 05-16 Ulisses 17:47: [id number] 00 Sensory impaired Sensory Resolve 2017-032018-12-08 Estelita hearing d 05-16 10:56:00 Ulisses 17:47: [id number] 00 Integument surgical Integument Resolve 2017-032018-03-22 Estelita wound d 05-16 11:40:00 Ulisses present 17:47: [id number] 00 Integument skin Integument Active 2017-03 Estelita integrity 05-16 Ulisses risk 17:47: [id number] 00 Neuro confusion Neuro/Emot Resolve 2017-032018-12-08 Estelita present ion d 05-16 10:56:00 Ulisses 17:47: [id number] 00 Medication oral med Meds Resolve 2017-032018-06-22 Estelita assistance d 05-16 11:30:00 Ulisses required 17:47: [id number] 00 Medication injectable Meds Resolve 2017-032018-06-22 Estelita med d 05-16 11:30:00 Ulisses assistance 17:47: [id number] required 00 Medication potential Meds Resolve 2017-032018-06-22 Estelita clinically d 05-16 11:30:00 Ulisses significant 17:47: [id number] medication 00 issue Musculoskel knowledge/s Musculoske Resolve 2017-032018-11-10 Estelita etal kill letal d 05-16 09:15:00 Ulisses deficit: pt 17:47: [id number] 00 Activity ADL Activity Resolve 2018-07-27 Estelita assistance d -16 09:15:00 Ulisses required 11:15: [id number] 00 Activity patient Activity Resolve 2018-11-10 Estelita bedbound d -16 09:15:00 Ulisses 11:15: [id number] 00 Musculoskel transfer Musculoske Resolve 2018-11-10 Estelita etal assistance letal d 16 09:15:00 Ulisses required 11:15: [id number] 00 Safety can be left Safety Resolve 2018-08-03 Estelita alone for d 04-14 12:10:00 Ulisses only short 11:45: [id number] periods 00 Infection s/s of Infection Active Estelita infection 05-14 Ulisses 10:00: [id number] 00 Activity self-care Activity Resolve 2018-07-27 Estelita deficit d 05-17 09:15:00 Ulisses 10:45: [id number] 00 Neuro behavior Neuro/Emot Resolve 2018-12-08 Estelita problems ion d - 10:56:00 Ulisses 09:46: [id number] 00 Neuro constant Neuro/Emot Resolve 2018-12-08 Estelita confusion ion d 3-04 10:56:00 Ulisses 09:46: [id number] 00 Medication inhalant Meds Resolve 2018-06-22 Estelita med d 3-12 11:30:00 Ulisses assistance 14:00: [id number] required 00 Respiratory CPAP Respirator Active Estelita treatments y - Ulisses in home 11:30: [id number] 00 Nutrition nutritional Nutrition Resolve 2018-07-27 Estelita restriction d 06-29 09:15:00 Ulisses s 10:00: [id number] 00 Respiratory nebulizer Respirator Active Estelita treatment y 07-06 Ulisses in home 11:53: [id number] 00 Elimination urinary Eliminatio Resolve 2018-07-27 Estelita incontinenc n d 07-06 09:15:00 Ulisses e 11:53: [id number] 00 Musculoskel requires Musculoske Resolve 2018-11-10 Estelita etal special letal d 07-06 09:15:00 Ulisses transportat 11:53: [id number] ion 00 Medication oral med Meds Resolve 2018-08-10 Estelita assistance d 07-13 09:21:00 Ulisses required 12:15: [id number] 00 Medication inhalant Meds Resolve 2018-08-10 Estelita med d 07-13 09:21:00 Ulisses assistance 12:15: [id number] required 00 Medication injectable Meds Resolve 2018-10-21 Estelita med d 07-13 09:54:00 Ulisses assistance 12:15: [id number] required 00 Medication potential Meds Active Estelita clinically 07-13 Ulisses significant 12:15: [id number] medication 00 issue Nutrition nutritional Nutrition Resolve 2018-12-08 Estelita restriction d 5-10 10:56:00 Ulisses s 13:30: [id number] 00 Elimination recurring Eliminatio Resolve 2018-12-08 Estelita UTI n d 5-14 10:56:00 Ulisses 12:10: [id number] 00 Endo/Nito anti-coagul Endo/Ntio Active Estelita ation 08-10 Ulisses therapy 09:21: [id number] 00 Elimination urinary Eliminatio Resolve 2018-12-08 Estelita incontinenc n d 08-10 10:56:00 Ulisses e 09:21: [id number] 00 Safety cannot be Safety Resolve 2019-01-27 Estelita left alone d 08-10 11:00:00 Ulisses 09:21: [id number] 00 Safety can be left Safety Resolve 2019-01-27 Estelita alone for d 08-31 11:00:00 Ulisses only short 10:00: [id number] periods 00 Activity ADL Activity Resolve 2018-11-24 Estelita assistance d 09-14 10:15:00 Ulisses required 09:30: [id number] 00 Activity self-care Activity Resolve 2018-11-10 Estelita deficit d 09-14 09:15:00 Ulisses 09:30: [id number] 00 Safety fall risk Safety Resolve 2019-01-27 Estelita factor d 09-14 11:00:00 Ulisses present 09:30: [id number] 00 Medication injectable Meds Unknown Estelita med 09-14 Ulisses assistance 09:30: [id number] required 00 Medication injectable Meds Unknown Estelita med 09-29 Ulisses assistance 13:11: [id number] required 00 Medication injectable Meds Resolve 2018-10-21 Estelita med d 10-13 09:54:00 Ulisses assistance 12:30: [id number] required 00 Activity self-care Activity Resolve 2019-01-27 Estelita deficit d 11-17 11:00:00 Ulisses 09:49: [id number] 00 Medication injectable Meds Active Estelita med 11-17 Ulisses assistance 09:49: [id number] required 00 Musculoskel transfer Musculoske Resolve 2019-01-27 Estelita etal assistance letal d 11-17 11:00:00 Ulisses required 09:49: [id number] 00 Musculoskel knowledge/s Musculoske Resolve 2018-2019-01-27 Estelita etal kill letal d 11-17 11:00:00 Ulisses deficit: pt 09:49: [id number] 00 Musculoskel requires Musculoske Resolve 2019-01-27 Estelita etal human letal d 11-17 11:00:00 Ulisses assist to 09:49: [id number] leave home 00 Musculoskel requires Musculoske Resolve 2019-01-27 Estelita etal special letal d 11-17 11:00:00 Ulisses transportat 09:49: [id number] ion 00 Activity patient Activity Active Estelita bedbound 11-24 Ulisses 10:15: [id number] 00 Nutrition nutritional Nutrition Resolve 2019-02-01 Estelita restriction d 12-14 11:05:00 Ulisses s 12:38: [id number] 00 Elimination urinary Eliminatio Resolve 2018-032019-02-01 Estelita incontinenc n d 0-02 11:05:00 Ulisses e 10:19: [id number] 00 Sensory impaired Sensory Active 2018-03 Estelita hearing 0-09 Ulisses 10:49: [id number] 00 Pain frequent Pain Mgmt Resolve 2018-032019-02-01 Estelita pain d 0-20 11:05:00 Ulisses 12:23: [id number] 00 Integument surgical Integument Active 2018-03 Estelita wound 0-20 Ulisses present 12:23: [id number] 00 Elimination UTI within Eliminatio Resolve 2018-032019-02-01 Estelita past 14 n d 0-20 11:05:00 Ulisses days 12:23: [id number] 00 Neuro confusion Neuro/Emot Active 2018-03 Estelita present ion 0-20 Ulisses 12:23: [id number] 00 Neuro anxiety Neuro/Emot Active 2018-03 Estelita present ion 0-20 Ulisses 12:23: [id number] 00 Neuro impaired Neuro/Emot Active 2018-03 Estelita decision-ma ion 0-20 Ulisses marcelle 12:23: [id number] 00 Activity ADL Activity Resolve 2018-032019-01-27 Estelita assistance d 0-20 11:00:00 Ulisses required 12:23: [id number] 00 Medication oral med Meds Active 2018-03 Estelita assistance 0 Ulisses required 12:23: [id number] 00 Endo/Nito insulin Endo/Nito Active 2018-03 Estelita admn Ulisses dependence 10:16: [id number] 00 Endo/Nito glucose Endo/Nito Active 2018-03 Estelita testing Ulisses dependence 10:16: [id number] 00 Sensory impaired Sensory Active 2018-03 Estelita verbal 04-03 Ulisses communicati 11:05: [id number] on 00 Safety can be left Safety Active 2018-03 Estelita alone for 04-03 Ulisses only short 11:05: [id number] periods 00 Musculoskel transfer Musculoske Active 2018-03 Estelita etal assistance letal 04-03 Ulisses required 11:05: [id number] 00 Musculoskel requires Musculoske Active 2018-03 Estelita etal human letal 04-03 Ulisses assist to 11:05: [id number] leave home 00 Musculoskel requires Musculoske Active 2018-03 Estelita etal special letal 04-03 Ulisses transportat 11:05: [id number] ion 00 Elimination urinary Eliminatio Active 2018-03 Estelita incontinenc n 04-06 Ulisses e 11:16: [id number] 00 Allergies, Adverse Reactions, Alerts Allergy Allergy Status Severity Reaction(s) Onset Inactive Treating Comments Name Type Date Date Clinician Iodine and Allergen Active Unknown altered mental C[facility]lle Iodide Group statusseizure 07-23 Guidelli Containing [id number] Products Levaquin Medication Active Unknown itching Cherelle Name ID 07-23 Guidelli [id number] nitroglycer Base Active Unknown Anaphylaxis Cherelle in Ingredient 07-23 Guidelli [id number] Medications Ordered Filled Start Stop Current Ordering Indication Dosage Frequency Signature Comments Components Medication Medication Date Date Medication? Clinician (SIG) Name Name acetaminoph acetaminoph 2017- No [place] 1 tab Unknown en 325 mg en 325 mg 09-04 ,Jeremiah tablet tablet albuterol albuterol 2017- No [place] 1 Kika Unknown sulfate 2.5 sulfate 2.5 06-12 Jeremiah PASTOR mg/3 mL mg/3 mL (0.083 %) (0.083 %) solution solution for for nebulizatio nebulizatio n n aspirin 81 aspirin 81 No [place] 1 tab Unknown mg mg 10-06 MD,Jeremiah tablet,skyler tablet,skyler yed release yed release atorvastati atorvastati 2017- No [place] 0.5.tab Unknown n 20 mg n 20 mg 09-30 ,Jeremiah tablet tablet benzonatate benzonatate 2016- No [facility] 2 Cap Unknown 100 mg 100 mg 09-04 ,Jeremiah capsule capsule budesonide budesonide 2017- No [facility] 2 ML Unknown 0.5 mg/2 mL 0.5 mg/2 mL 09-04 Jeremiah PASTOR suspension suspension for for nebulizatio nebulizatio n n cholecalcif cholecalcif 2017- No [facility] 2 tab Unknown rob rob 09-04 Jeremiah PASTOR (vitamin (vitamin D3) 1,000 D3) 1,000 unit (25 unit (25 mcg) tablet mcg) tablet carboxymeth carboxymeth 2017- No [place] 2 drops Unknown ylcellulose ylcellulose 09-04 Jeremiah PASTOR sodium 1 % sodium 1 % eye liquid eye liquid gel drops gel drops clobetasol- clobetasol- 2017- No [facility] 1 cream Unknown emollient emollient 09-04 Jeremiah PASTOR 0.05 % 0.05 % topical topical cream cream bisacodyl bisacodyl 2016- No [place] 1 Unknown 10 mg 10 mg 09-04 Jeremiah PASTOR Supposi rectal rectal tory suppository suppository Dilantin Dilantin 2015- No [facility] 2 Cap Unknown Kapseal 100 Kapseal 100 -06-12 Jeremiah PASTOR mg capsule mg capsule finasteride finasteride 2017- No [place] 1 tab Unknown 5 mg tablet 5 mg tablet 09-04 Jeremiah PASTOR furosemide furosemide 2015- No [facility] 1 Tab Unknown 40 mg 40 mg 12-16 ,Jeremiah tablet tablet guaiFENesin guaiFENesin No [place] 5 ML Unknown 100 mg/5 mL 100 mg/5 mL 09-04 Jeremiah PASTOR oral liquid oral liquid Lantus Lantus 2014-03- No [place] 35 Kika Unknown U-100 U-100 04-07 Jeremiah PASTOR Insulin 100 Insulin 100 unit/mL unit/mL subcutaneou subcutaneou s solution s solution lidocaine 5 lidocaine 5 2016- No [place] 1 cream Unknown % topical % topical 09-04 ,Jeremiah cream cream lisinopril lisinopril 2015- No [place] 0.5 Tab Unknown 10 mg 10 mg 12-16 ,Jeremiah tablet tablet metFORMIN metFORMIN 2018- No [place] 1 tab Unknown 500 mg 500 mg 06-12 ,Jeremiah tablet tablet nystatin nystatin 2017- No [place] 1 cream Unknown 100,000 100,000 09-04 Jeremiah PASTOR unit/gram unit/gram topical topical cream cream oxyCODONE-a oxyCODONE-a 2014-03- No [place] 1 tab Unknown cetaminophe cetaminophe 03-31 ,Jeremiah n 5 mg-325 n 5 mg-325 mg tablet mg tablet Oxygen 2L/M Oxygen 2L/M 2015- No [place] 2 L Unknown 12-04 06 Jeremiah PASTOR /min senna 8.6 senna 8.6 2015- No [place] 2 tab Unknown mg tablet mg tablet 08-15 Jeremiah PASTOR sertraline sertraline 2015- No [place] 0.5 Tab Unknown 100 mg 100 mg [...] ,Jeremiah warfarin 1 warfarin 1 2015- No [place] 4-7 Unknown mg tablet mg tablet 06-03 ,Jeremiah warfarin 1 warfarin 1 2015- No [place] 7 Unknown mg tablet mg tablet 06-12 ,Jeremiah Dilantin Dilantin 2015- No [facility] 3Cap Unknown Kapseal 100 Kapseal 100 06-12 ,Jeremiah mg capsule mg capsule warfarin warfarin 2015- No [place] 8-7mg Unknown 06-17 ,Jeremiah warfarin warfarin 2015- No [place] 8-7mg Unknown 06-24 ,Jeremiah sulfamethox sulfamethox No [facility] 400 Unknown azole azole 06-24 ,Jeremiah warfarin warfarin 2015- No [facility] 8-7mg Unknown 07-01 ,Jeremiah warfarin warfarin 2017- No [facility] 8-7mg Unknown 07-02 ,Jeremiah Bactrim DS Bactrim DS No [place] 1 Unknown 800 mg-160 800 mg-160 - ,Jeremiah mg tablet mg tablet sertraline sertraline No [place] 1 Tab Unknown 100 mg 100 mg 07-08 ,Jeremiah tablet tablet warfarin 1 warfarin 1 2017- No [facility] 7-8mg Unknown mg tablet mg tablet 07-08 ,Jeremiah Macrobid Macrobid 2015- No [facility] 100mg Unknown 100 mg 100 mg 07-08 ,Jeremiah capsule capsule warfarin 1 warfarin 1 2015- No [facility] 7-8 Unknown mg tablet mg tablet 07-11 ,Jeremiah Lantus Lantus 2015- No [place] 32 Kika Unknown U-100 U-100 07-12 ,Jeremiah Insulin 100 Insulin 100 unit/mL unit/mL subcutaneou subcutaneou s solution s solution Dilantin Dilantin 2015- No [place] 100 Unknown Kapseal 100 Kapseal 100 07-12 ,Jeremiah mg-1 mg capsule mg capsule CAPSULE warfarin 1 warfarin 1 [place] 7 mg Unknown mg tablet mg tablet 07-12 Jeremiah PASTOR senna 8.6 senna 8.6 [place] 2 tab Unknown mg tablet mg tablet 07-15 Jeremiah PASTOR Vitamin D Vitamin D 2015- [place] 1 Unknown 2,000 unit 2,000 unit 07-22 Jeremiah PASTOR tablet tablet warfarin 1 warfarin 1 [facility] 6 Unknown mg tablet mg tablet 07-23 Jeremiah PASTOR Bactrim 400 Bactrim 400 [facility] 1 Unknown mg-80 mg mg-80 mg 07-23 Jeremiah PASTOR tablet tablet dilTIAZem dilTIAZem [facility] 1 Unknown 120 mg 120 mg 07-23 Jeremiah PASTOR tablet tablet warfarin 1 warfarin 1 [place] 7 mg Unknown mg tablet mg tablet 07-26 Jeremiah PASTOR warfarin 1 warfarin 1 2015- [place] 1mg tab Unknown mg tablet mg tablet 07-29 Jeremiah PASTOR coumidin coumidin [place] 1mg Unknown 08-05 Jeremiah PASTOR Lovenox 80 Lovenox 80 [place] 80mg Unknown mg/0.8 mL mg/0.8 mL 07-20 Jeremiah PASTOR subcutane subcutane s syringe s syringe Dilantin Dilantin [facility] 2tabs Unknown Kapseal 100 Kapseal 100 08-09 Jeremiah PASTOR mg capsule mg capsule warfarin 1 warfarin 1 [place] 1mg Unknown mg tablet mg tablet 08-13 Jeremiah PASTOR warfarin 1 warfarin 1 [place] 1mg Unknown mg tablet mg tablet 08-12 Jeremiah PASTOR Oxygen 2L/M Oxygen 2L/M [facility] 4 L Unknown 08-30 Jeremiah PASTOR /min warfarin 1 warfarin 1 [facility] 1mg Unknown mg tablet mg tablet 09-17 Jeremiah PASTOR warfarin 1 warfarin 1 2015- No [place] 1mg Unknown mg tablet mg tablet 09-24 Jeremiah PASTOR warfarin 1 warfarin 1 2015- No [place] 1mg Unknown mg tablet mg tablet 09-30 Jeremiah PASTOR warfarin 1 warfarin 1 2015- No [facility] 1mg Unknown mg tablet mg tablet 09-24 Jeremiah PASTOR Coumadin 2 Coumadin 2 2015- No [facility] 5-6mg Unknown mg tablet mg tablet 09-30 Jeremiah PASTOR warfarin 1 warfarin 1 2015- No [facility] 5mg Unknown mg tablet mg tablet 10-14 Jeremiah PASTOR Thursday, 6mg Thursday, 6mg Thursday , 6mg , 5mg , 6mg Thursday, 6mg y. albuterol albuterol No [place] 2 puffs Unknown sulfate HFA sulfate HFA 07-17 Jeremiah PASTOR 90 90 mcg/actuati mcg/actuati on aerosol on aerosol inhaler inhaler warfarin 1 warfarin 1 2015- No [place] per inr Unknown mg tablet mg tablet 11-04 Jeremiah PASTOR 1.3 on 11/04 take 7mg 11/04, 6mg thursday , 6mg thu then recheck warfarin 1 warfarin 1 2015- No [place] per inr Unknown mg tablet mg tablet 11-07 Jeremiah PASTOR 1.3 on 11/07 take 6mg 11/07, 6mg 11/08, 6mg11/09 take 6mg 11/10, then recheck Saturday 11/11 warfarin 1 warfarin 1 2015- No [place] per INR Unknown mg tablet mg tablet 11-11 Jeremiah PASTOR 2.0 on 11/11, take 6mg 11/11, 11/12, 11/13, 11/14, 11/15, 11/16, 11/17, Recheck INR 11/18. warfarin 1 warfarin 1 2015- No [place] perinr Unknown mg tablet mg tablet 11-18 Jeremiah PASTOR on 11/18 take 6 mg daily recheck 2 weeks on 12/02 Oxygen 2L/M Oxygen 2L/M 2015- No [facility] 4 L Unknown 11-22 Jeremiah PASTOR /min warfarin 1 warfarin 1 2015- No [place] perinr Unknown mg tablet mg tablet 11-22 [...] inr on 12/09 amoxicillin amoxicillin 2015- No [place] 1 tab Unknown 500 500 12-04 Jeremiah PASTOR mg-potassiu mg-potassiu m m clavulanate clavulanate 125 mg 125 mg tablet tablet oxygen oxygen 2015- No [place] 3 Unknown 11-25 Jeremiah PASTOR liters in the home and 4 liters while out of the home warfarin 1 warfarin 1 2015- No [place] per inr Unknown mg tablet mg tablet 12-09 Jeremiah PASTOR on 12/09 take mon 6mg , tues, 4mg, thu 6mg, th 6mg, thu 6mg, sat and sun 6mg, recheck on 12/16 warfarin 1 warfarin 1 2015- No [facility] 6mg Unknown mg tablet mg tablet 12-16 Jeremiah PASTOR recheck INR 12/23 Dilantin Dilantin 2015- No [place] 2 tabs Unknown Kapseal 100 Kapseal 100 12-20 Jeremiah PASTOR AM & mg capsule mg capsule BED furosemide furosemide 2015-03- No [place] take Unknown 40 mg 40 mg 01-01 Jerem[facility] PASTOR one tablet tablet tablet by mouth bid carvedilol carvedilol 2015-03- No [place] take Unknown 6.25 mg 6.25 mg 01-01 [facility] PASTOR one- tablet tablet half tablet by mouth bid oxygen oxygen 2015-03 No [facility] 3.5 Unknown 0-11 Jeremiah PASTOR litters at home and 4.5 out of the home Coumadin 1 Coumadin 1 2015-03- No [place] take Unknown mg tablet mg tablet 0-03 01- [facility] PASTOR 6tabs q bedtime to prevent blood clots [facility] 01/08 carvedilol carvedilol 2015-03- No [facility] take Unknown 6.25 mg 6.25 mg 0 10- [facility] PASTOR 0.5 tablet tablet tablet by mouth bid nitrofurant nitrofurant 2015-03- No [place] 1 cap x Unknown oin oin 0-01-18 Jerem[facility] PASTOR 10 days macrocrysta macrocrysta l 100 mg l 100 mg capsule capsule Coumadin 1 Coumadin 1 2015-03- No [facility] take Unknown mg tablet mg tablet 0- [facility] PASTOR 6tabs q bedtime to prevent blood clots [facility] 01/20 Coumadin 1 Coumadin 1 2015-03- No [place] 6 tabs Unknown mg tablet mg tablet 0 11-18 [facility] PASTOR Coumadin 1 Coumadin 1 2015-03- No [place] 6 tabs Unknown mg tablet mg tablet 04-09 12- ,Je[facility] Coumadin 1 Coumadin 1 2015-03- No [facility] 6-9 Unknown mg tablet mg tablet 05-04 Jerem[facility] PASTOR tabs Augmentin Augmentin 2015-03- No [facility] 875/125 Unknown 875 mg-125 875 mg-125 05-06 Jerem[facility] PASTOR mg mg tablet mg tablet Coumadin 1 Coumadin 1 2015-03- No [facility] 6mg-9mg Unknown mg tablet mg tablet 05-11 [facility] PASTOR 2015-03- No [facility] 32 Unknown Solostar Solostar 05-11 Jerem[facility] PASTOR Units U-100 U-100 Insulin 100 Insulin 100 unit/mL (3 unit/mL (3 mL) mL) subcutaneou subcutaneou s pen s pen Coumadin 1 Coumadin 1 2015-03- No [facility] 6mg Unknown mg tablet mg tablet 05-19 [facility] PASTOR (Thu/ es/Thur s/Sat)- 9mg M/W/F Coumadin 1 Coumadin 1 2016- No [place] 8mg X1 Unknown mg tablet mg tablet 03-25 [facility] PASTOR (03/25/16 ), then M,W,F 9mg, other days 6mg. RECHECK INR 04/01/16 insulin insulin 2016- No [facility] 32 Unknown glargine glargine 03-25 [facility] PASTOR Units (U-100) 100 (U-100) 100 unit/mL unit/mL subcutaneou subcutaneou s solution s solution cephALEXin cephALEXin 2016- No [place] 500mg Unknown 500 mg 500 mg 03-27 [facility] PASTOR capsule capsule insulin insulin 2016- No [place] 37 Unknown glargine glargine 03-27 [facility] PASTOR Units (U-100) 100 (U-100) 100 unit/mL unit/mL subcutaneou subcutaneou s solution s solution Coumadin 1 Coumadin 1 2016- No [facility] 8mg X1 Unknown mg tablet mg tablet 04-01 Jerem[facility] PASTOR (03/25/16 ), then M,W,F 9mg, other days 6mg. RECHECK INR 04/01/16 Coumadin 1 Coumadin 1 2016- No [place] 8mg X1 Unknown mg tablet mg tablet 04-01 [facility] PASTOR (03/25/16 ), then M,W,F 9mg, other days 6mg. RECHECK INR 04/01/16 insulin insulin 2016- No [place] 25 Unknown glargine glargine 04-01 [facility] PASTOR Units (U-100) 100 (U-100) 100 unit/mL unit/mL subcutaneou subcutaneou s solution s solution furosemide furosemide 2015-03- No [facility] 1 tab Unknown 40 mg 40 mg 0 10-20 Jerem[facility] PASTOR tablet tablet Dilantin Dilantin 2016- No [facility] 2 tabs Unknown Kapseal 100 Kapseal 100 9 05-30 Jerem[facility] PASTOR mg capsule mg capsule carvedilol carvedilol 2015-03- No [place] 0.5 tab Unknown 6.25 mg 6.25 mg 07-15 [facility] PASTOR tablet tablet Coumadin 1 Coumadin 1 2016- No [facility] 6-9 Unknown mg tablet mg tablet 04-01 Jerem[facility] PASTOR tabs insulin insulin 2016- No [facility] 25 Unknown glargine glargine 04-01 [facility] PASTOR Units (U-100) 100 (U-100) 100 unit/mL unit/mL subcutaneou subcutaneou s solution s solution warfarin 1 warfarin 1 2016- No [place] 6mg Unknown mg tablet mg tablet 04-08 [...] s/Sat) warfarin 1 warfarin 1 2016- No [place] 9 tabs Unknown mg tablet mg tablet 04-08 Jerem[facility] PASTOR ( d/Thu) acetaminoph acetaminoph No [place] 2 tab Unknown en 325 mg en 325 mg 04-21 [facility] PASTOR tablet tablet warfarin 1 warfarin 1 2016- No [facility] 11 tabs Unknown mg tablet mg tablet 05-05 Jerem[facility] PASTOR warfarin 1 warfarin 1 2016- No [place] 9 tabs Unknown mg tablet mg tablet 05-06 [facility] PASTOR ( d/Thu) Keflex 500 Keflex 500 2016- No [place] 1 Unknown mg capsule mg capsule 05-24 [facility] PASTOR warfarin 1 warfarin 1 2016- No [place] 6-9 Unknown mg tablet mg tablet 06-12 [facility] PASTOR tablets (6-9 mgs) senna 8.6 senna 8.6 2017- No [facility] 1-2 tab Unknown mg tablet mg tablet 06-19 Jerem[facility] PASTOR warfarin 1 warfarin 1 2016- No [place] 9mg on Unknown mg tablet mg tablet 07-08 ,Jeremiah 07/08 only repeat INR 4/25 warfarin 1 warfarin 1 2016- No [place] 6-9 Unknown mg tablet mg tablet 07-08 ,Jeremiah tablets (6-9 mgs)rep eat INR 4/25 cephALEXin cephALEXin 2016- No [facility] 500mg Unknown 500 mg 500 mg 07-08 ,Jerem[facility] cap capsule capsule warfarin 1 warfarin 1 2016- No [place] 11 Unknown mg tablet mg tablet 07-14 ,Jeremiah tablets -07/14, 9 tabs M// and 6tabs T/// Sat/Sun cephALEXin cephALEXin 2016- No [place] 1 cap Unknown 500 mg 500 mg [...] tablet mg tablet 07-21 [facility] PASTOR Mon,Wed ,Thu,Sa t 2 tabs Sun,Tue s,Thur repeat INR 15 warfarin 3 warfarin 3 2016- No [facility] 4.5 mg Unknown mg tablet mg tablet 08-04 Jerem[facility] PASTOR for today only then:6m g Tues and Thurs,9 mg Mon Wed Fri Sat and Sun repeat INR 08/11 warfarin 3 warfarin 3 2016- No [facility] 2 tabs Unknown mg tablet mg tablet 08-11 [facility] PASTOR (6 mg and ), 3 tabs (9mg Thu/Thu /Thu/Sa t/Sun enoxaparin enoxaparin [place] 1ml Unknown sodium 100 sodium 100 08-19 Jerem[facility] PASTOR/1mL mg/1mL subcutaneou subcutaneou s syringe s syringe HYDROcodone HYDROcodone [facility] 1 tab Unknown 5 5 08-19 Jeremiah PASTOR mg-acetamin mg-acetamin ophen 325 ophen 325 mg tablet mg tablet warfarin 3 warfarin 3 [facility] 2 tabs Unknown mg tablet mg tablet 08-19 Jerem[facility] PASTOR (6 mg and ), 3 tabs (9mg Thu/Thu /Thu/Sa t/Sun warfarin 3 warfarin 3 [facility] 2 tabs Unknown mg tablet mg tablet 08-19 [facility] PASTOR (6 mg and ), 3 tabs (9mg Thu/Thu /Thu/Sa t/Sun warfarin 3 warfarin 3 [place] 4 tabs Unknown mg tablet mg tablet 08-21 [facility] PASTOR 08/22 and 08/23 repeat INR 6/5 cephALEXin cephALEXin [place] 1 cap Unknown 500 mg 500 mg 08-22 Jerem[facility] PASTOR for 4 capsule capsule days warfarin 3 warfarin 3 [place] 12mg Unknown mg tablet mg tablet 08-25 [facility] PASTOR 6/6,9mg 08/27-08/21 1 repeat INR 6/12 warfarin 3 warfarin 3 No [place] 12mg Unknown mg tablet mg tablet 08-25 [facility] PASTOR 6/6,9mg 7-08/21 1 repeat INR 6/12 warfarin 3 warfarin 3 [place] 12mg Unknown mg tablet mg tablet 09-01 [facility] PASTOR /12,9m g 09/02-,repe at INR 6/19 warfarin 3 warfarin 3 [place] 9mg Unknown mg tablet mg tablet 09-15 Jerem[facility] PASTOR until September 28 then repeat INR cephALEXin cephALEXin 2016- No [facility] 500mg Unknown [...] mg tablet mg tablet 10-14 [facility] PASTOR 10/14,9m g thu,thu s, sat and sun,6mg mon and fri,rep eat INR 8/7 insulin insulin 2017- No [place] 35 Unknown glargine glargine 10-20 [facility] PASTOR Units (U-100) 100 (U-100) 100 unit/mL unit/mL subcutaneou subcutaneou s solution s solution warfarin 3 warfarin 3 2016- No [facility] hold Unknown mg tablet mg tablet 10-27 Jerem[facility] PASTOR until 10/29 repeat INR 10 warfarin 3 warfarin 3 2016- No [place] 9mg Unknown mg tablet mg tablet 10-30 [facility] PASTOR thursday and da y,6mg Thu. Thu.,Fr i,and Sun,rep eat INR 14 warfarin 3 warfarin 3 2016- No [facility] 7.5mg Unknown mg tablet mg tablet 11-03 [facility] PASTOR 11/03 then 9mg sat and 6mg thu fri and sun,rep eat INR 11/10 cephALEXin cephALEXin 2016- No [place] 500mg Unknown 500 mg 500 mg 11-03 [facility] PASTOR capsule capsule warfarin 3 warfarin 3 2016- No [facility] 6mg Unknown mg tablet mg tablet 11-18 [facility] PASTOR Mon,Thu ,Fri and Sun,9mg ,, and Sat repeat INR 9/5 warfarin 3 warfarin 3 2016- No [place] hold Unknown mg tablet mg tablet 11-25 [facility] PASTOR 9/5 then 6mg tues sat,9mg Thu Fri and Sun warfarin 3 warfarin 3 2016- [place] hol on Unknown mg tablet mg tablet 12-09 [facility] PASTOR,9m g Wed and Sat,6mg the rest of the week and repeat INR on 12/16 warfarin 3 warfarin 3 2016- [facility] hold on Unknown mg tablet mg tablet 12-16 [facility] PASTOR,6m g 6xwk,9m g on Sat,rep eat INR on 12/30 warfarin 3 warfarin 3 2016-03 [facility] 2.5 Unknown mg tablet mg tablet 01-06 [facility] PASTOR tabs today,6 mg the rest of the week but 9mg on Sat.,re peat INR in one week if pt doesnt go to clinic on 01/05 cephALEXin cephALEXin 2016-03 [place] 1 Unknown 500 mg 500 mg 01-10 [facility] PASTOR Tablet capsule capsule warfarin 3 warfarin 3 2016-03 [place] hold Unknown mg tablet mg tablet 01-20 [facility] PASTOR tonight ,6mg daily ,9mg just on Sat. repeat INR in 2wks warfarin 3 warfarin 3 2016-03- [facility] 9mg Unknown mg tablet mg tablet 01-27 [facility] PASTOR 01/20 ,6mg daily ,9mg just on Sat. repeat INR 02/03 warfarin 3 warfarin 3 2016-03- [facility] 6mg Unknown mg tablet mg tablet 03-29 [facility] PASTOR daily,9 mg Thursday, repeat INR 1114,1 04/12,,,04/14 ,05/12,,4/2 4,08/11, 09/08,,11/10 ,12/08,1 warfarin 3 warfarin 3 2016-03- [facility] 6mg Unknown mg tablet mg tablet 04-12 [facility] PASTOR daily,9 mg Thursday, repeat INR 11/14,1 04/12,,,04/14 ,05/12,3 ,4/2 4,08/11, 09/08,,11/10 ,12/08,1 warfarin 3 warfarin 3 2016-03- No [place] 6mg Unknown mg tablet mg tablet 05-11 [facility] PASTOR daily,h old 03/10 9mg Sun,6mg daily repeat INR 14,1 04/12,,,04/14 ,05/12,,4 4,08/11, 09/08,,11/10 ,12/08,1 Ciprodex Ciprodex 2016-03- No [facility] 4 drops Unknown 0.3 %-0.1 % 0.3 %-0.1 % 05-11 [facility] PASTOR 2xd ear ear drops,suspe drops,suspe nsion nsion Ambien 5 mg Ambien 5 mg 2017- No [place] / tab Unknown tablet tablet 04-03 [facility] PASTOR warfarin 3 warfarin 3 2017- No [facility] increas Unknown mg tablet mg tablet 04-03 [facility] PASTOR e 03/24 tab 04/04,6m g daily, 9mg Sun,6mg daily repeat INR 02/03,1 04/12,,,04/14 ,05/12,,4 4,08/11, 09/08,,11/10 ,12/08,1 warfarin 3 warfarin 3 2017- No [facility] ,6mg Unknown mg tablet mg tablet 04-07 [facility] PASTOR daily, 9mg Sun, repeat INR 04/14,2,3 ,07/14,,6 9,10/01, 11/10,,12/22 3 warfarin 3 warfarin 3 2017- No [place] hold Unknown mg tablet mg tablet 04-13 [facility] PASTOR 04/13 2mg 04/14,6m g dailly, 9mg Sun, repeat INR 04/20,2,3 ,07/14,,08/21 9,10/01, 11/10,,12/22 3 metoprolol metoprolol No [place] 25mg Unknown tartrate 25 tartrate 25 04-10 [facility] PASTOR mg tablet mg tablet Ambien 10 Ambien 10 2017- No [place] 10 mg Unknown mg tablet mg tablet 04-20 [facility] PASTOR finasteride finasteride No [place] 1 tab Unknown 5 mg tablet 5 mg tablet 05-18 [facility] PASTOR AM warfarin 3 warfarin 3 2017- No [place] hold Unknown mg tablet mg tablet 05-19 [facility] PASTOR for 4 days and resume 6mg daily and repeat INR in one week 05/25 or 05/26 warfarin 3 warfarin 3 2017- No [place] 2-3 Unknown mg tablet mg tablet 05-26 [facility] PASTOR tabs cephALEXin cephALEXin 2017- No [facility] 1 cap Unknown 500 mg 500 mg 05-26 [facility] PASTOR capsule capsule warfarin 3 warfarin 3 2017- No [facility] Hold Unknown mg tablet mg tablet 06-01 [facility] PASTOR 06/01,,06/03 then 6mg daily,3 mg 06/06,re peat INR 06/08 or 06/09 warfarin 3 warfarin 3 2017- No [place] 6mg Unknown mg tablet mg tablet 06-08 [facility] PASTOR daily,3 mg 06/13,re peat INR in one week warfarin 3 warfarin 3 2017- No [place] 6mg Unknown mg tablet mg tablet 06-15 [facility] PASTOR daily,3 mg 06/20,re peat INR in one week warfarin 3 warfarin 3 2017- No [facility] 6mg Unknown mg tablet mg tablet 06-22 [facility] PASTOR qd,3mg on 06/27,rep eat INR on 06/29 or 06/30 warfarin 3 warfarin 3 2017- No [place] 6mg Unknown mg tablet mg tablet 06-29 [facility] PASTOR qd,3mg on 07/04,re peat INR on 07/06 or 07/07 warfarin 3 warfarin 3 2017- No [place] 6mg Unknown mg tablet mg tablet 07-14 [facility] PASTOR qd,3mg on 07/14 and 07/18,Re peat INR on 07/20 or warfarin 3 warfarin 3 2017- No [place] hold Unknown mg tablet mg tablet 07-21 [facility] PASTOR ,then 6mg daily ,3mg 07/22 and 07/25.Rep eat INR on 07/27 or 07/28 warfarin 3 warfarin 3 2017- No [facility] 3mg Unknown mg tablet mg tablet 07-28 [facility] PASTOR tues,th urs,sat 6mg mon,wed ,fri and sun,rep eat INR 08/10 or 08/11 Ambien 10 Ambien 10 No [place] 1/2 tab Unknown mg tablet mg tablet 08-03 [facility] PASTOR warfarin 3 warfarin 3 2017- No [place] 9mg Unknown mg tablet mg tablet 08-10 [facility] PASTOR ,3mg tues,th urs,sat ,6mg mon,thu ,fri,an d sun.Rep eat INR in 2 wks warfarin 3 warfarin 3 2017- No [place] 6mg Unknown mg tablet mg tablet 08-24 [facility] PASTOR-Sun,3 mg Tues and Sat repeat on 08/31 or 09/01 cephALEXin cephALEXin 2017- No [facility] 1 tab Unknown 500 mg 500 mg 08-29 [facility] PASTOR tablet tablet warfarin 3 warfarin 3 2017- No [place] 6mg Unknown mg tablet mg tablet 09-01 [facility] PASTOR -Sun,3 mg Tues and Sat repeat on 08/31 or 09/01 warfarin 3 warfarin 3 2017- No [place] 6mg Unknown mg tablet mg tablet 09-07 [facility] PASTOR-Sun,3 mg Tues Sat repeat INR 09/14 or 09/15 warfarin 3 warfarin 3 2017- No [place] Unknown Unknown mg tablet mg tablet 09-15 [facility] PASTOR warfarin 3 warfarin 3 2017- No [facility] Unknown Unknown mg tablet mg tablet 09-29 [facility] PASTOR warfarin 3 warfarin 3 2017- No [place] Unknown Unknown mg tablet mg tablet 10-13 [facility] PASTOR hydrOXYzine hydrOXYzine 2017- No [facility] Unknown Unknown HCl 10 mg HCl 10 mg 11-10 ,Jeremiah tablet tablet warfarin 3 warfarin 3 2017- No [facility] Unknown Unknown mg tablet mg tablet 11-11 ,Je[facility] warfarin 3 warfarin 3 2017- No [place] Unknown Unknown mg tablet mg tablet 11-24 ,Je[facility] amoxicillin amoxicillin 2017- No [place] Unknown Unknown 125 mg 125 mg 12-01 ,[facility] tablet tablet prednisone prednisone 2017- No [place] Unknown Unknown 20 mg 20 mg 12-01 MD,Jeremiah tablet tablet warfarin 3 warfarin 3 2017- No [facility] Unknown Unknown mg tablet mg tablet 12-08 MD,Jeremiah warfarin 3 warfarin 3 2017-03- No [place] Unknown Unknown mg tablet mg tablet 01-26 MD,Jeremiah warfarin 3 warfarin 3 2017-03- No [place] Unknown Unknown mg tablet mg tablet 03-28 ,Je[facility] warfarin 3 warfarin 3 2017-03- No [place] Unknown Unknown mg tablet mg tablet 04-04 ,[facility] warfarin 3 warfarin 3 2017-03- No [place] Unknown Unknown mg tablet mg tablet 04-18 MD,Jeremiah warfarin 3 warfarin 3 2017-03- No [facility] Unknown Unknown mg tablet mg tablet 04-26 ,Jeremiah warfarin 3 warfarin 3 2017-03- No [place] Unknown Unknown mg tablet mg tablet 04-26 [facility] PASTOR atorvastati atorvastati 2017-03 No [facility] Unknown Unknown n 40 mg n 40 mg 05-16 [facility] PASTOR tablet tablet insulin insulin 2017-03- No [place] Unknown Unknown glargine glargine 05-16 [facility] PASTOR (U-100) 100 (U-100) 100 unit/mL unit/mL subcutaneou subcutaneou s solution s solution sennosides sennosides 2017-03- No [place] Unknown Unknown 8.6 mg 8.6 mg 05-16 ,Jeremiah tablet tablet warfarin 3 warfarin 3 2017-03- No [place] Unknown Unknown mg tablet mg tablet 03-22 ,Je[facility] warfarin 3 warfarin 3 2017-03- No [facility] Unknown Unknown mg tablet mg tablet 03-31 [facility] PASTOR lisinopril lisinopril 2017-03 No [facility] Unknown Unknown 5 mg tablet 5 mg tablet 05-16 [facility] PASTOR omeprazole omeprazole 2017-03- No [place] Unknown Unknown magnesium magnesium 05-16- [facility] PASTOR 20 mg 20 mg tablet,skyler tablet,skyler yed release yed release omeprazole omeprazole 2017-03- No [facility] Unknown Unknown magnesium magnesium 05-16 05-14 ,Je[facility] 20 mg 20 mg tablet,skyler tablet,skyler yed release yed release cholecalcif cholecalcif 2017-03 No [place] Unknown Unknown rob rob 05-16 [facility] PASTOR (vitamin (vitamin D3) 1,000 D3) 1,000 unit (25 unit (25 mcg) tablet mcg) tablet hydrOXYzine hydrOXYzine 2017-03 No [place] Unknown Unknown HCl 10 mg HCl 10 mg 05-16 [facility] PASTOR tablet tablet warfarin 3 warfarin 3 2018- No [facility] Unknown Unknown mg tablet mg tablet 03-31 [facility] PASTOR predniSONE predniSONE 2018- No [facility] Unknown Unknown 20 mg 20 mg 03-31 [facility] PASTOR tablet tablet phenazopyri phenazopyri 2018- No [place] Unknown Unknown dine 100 mg dine 100 mg 04-01 [facility] PASTOR tablet tablet cephALEXin cephALEXin 2018- No [facility] Unknown Unknown 500 mg 500 mg 04-30 [facility] PASTOR capsule capsule warfarin 3 warfarin 3 2018- No [facility] Unknown Unknown mg tablet mg tablet 05-14 [facility] PASTOR ciprofloxac ciprofloxac 2018- No [facility] Unknown Unknown in 500 mg in 500 mg 05-14 [facility] PASTOR tablet tablet insulin insulin 2018- No [place] Unknown Unknown glargine glargine 05-27 [facility] PASTOR (U-100) 100 (U-100) 100 unit/mL unit/mL subcutaneou subcutaneou s solution s solution warfarin 3 warfarin 3 2018- No [place] Unknown Unknown mg tablet mg tablet 05-31 Jerem[facility] PASTOR Victoza Victoza 2018- No [place] Unknown Unknown 2-Gurinder 0.6 2-Gurinder 0.6 06-01 03-19 [facility] PASTOR mg/0.1 mL mg/0.1 mL (18 mg/3 (18 mg/3 mL) mL) subcutaneou subcutane s pen s pen injector injector Victoza Victoza No [facility] Unknown Unknown 2-Gurinder 0.6 2-Gurinder 0.6 20 [facility] PASTOR mg/0.1 mL mg/0.1 mL (18 mg/3 (18 mg/3 mL) mL) subcutane subcutane s pen s pen injector injector mometasone mometasone No [place] Unknown Unknown 220 220 18 [facility] PASTOR mcg/actuati mcg/actuati on(60 on(60 doses) doses) breath breath activated activated powder powder inhaler inhaler warfarin 3 warfarin 3 2018- No [facility] Unknown Unknown mg tablet mg tablet 06-15-16 [facility] PASTOR warfarin 3 warfarin 3 2018- No [place] Unknown Unknown mg tablet mg tablet 07-06 [facility] PASTOR cephALEXin cephALEXin 2018- No [place] Unknown Unknown 500 mg 500 mg 08-03- [facility] PASTOR tablet tablet warfarin 3 warfarin 3 2018- No [facility] Unknown Unknown mg tablet mg tablet 08-10 [facility] PASTOR warfarin 3 warfarin 3 2018- No [facility] Unknown Unknown mg tablet mg tablet 08-10 06- [facility] PASTOR omeprazole omeprazole No [place] Unknown Unknown magnesium magnesium -14 [facility] PASTOR 20 mg 20 mg tablet,skyler tablet,skyler yed release yed release warfarin 3 warfarin 3 2018- No [facility] Unknown Unknown mg tablet mg tablet 08-31- Jerem[facility] PASTOR warfarin 3 warfarin 3 2018- No [place] Unknown Unknown mg tablet mg tablet 09-14 07-10 [facility] PASTOR warfarin 3 warfarin 3 2018- No [facility] Unknown Unknown mg tablet mg tablet 09-29 08-14 [facility] PASTOR warfarin 3 warfarin 3 2018- No [facility] Unknown Unknown mg tablet mg tablet 11-0324 Jerem[facility] PASTOR Augmentin Augmentin 2018- Yes [place] Unknown Unknown 500 mg-125 500 mg-125 12-14- Jeremiah PASTOR mg tablet mg tablet fluconazole fluconazole Yes [facility] Unknown Unknown 100 mg 100 mg 12-14 [facility] PASTOR tablet tablet warfarin 3 warfarin 3 Yes [facility] Unknown Unknown mg tablet mg tablet 12-14 [facility] PASTOR warfarin 3 warfarin 3 2018-03- Yes [place] Unknown Unknown mg tablet mg tablet 0 10- Jerem[facility] PASTOR carbamide carbamide 2018-03 Yes [facility] Unknown Unknown peroxide peroxide 0-09 [facility] PASTOR 6.5 % ear 6.5 % ear drops drops cephALEXin cephALEXin 2018-03 Yes [place] Unknown Unknown 500 mg 500 mg 0-20 - Jeremiah PASTOR capsule capsule doxycycline doxycycline 2018-03 Yes [facility] Unknown Unknown monohydrate monohydrate 0-09 02- [facility] PASTOR 100 mg 100 mg capsule capsule Eliquis 5 Eliquis 5 2018-03 Yes [facility] Unknown Unknown mg tablet mg tablet 0-20 Jerem[facility] PASTOR oxyCODONE 5 oxyCODONE 5 2018-03 Yes [place] Unknown Unknown mg tablet mg tablet 0-20 Jeremiah PASTOR Lasix 20 mg Lasix 20 mg 2018-03 Yes [place] Unknown Unknown tablet tablet 0-20 Jerem[facility] PASTOR insulin insulin 2018-03 Yes [facility] Unknown Unknown glargine glargine 0-20 [facility] PASTOR (U-100) 100 (U-100) 100 unit/mL unit/mL subcutaneou subcutaneou s solution s solution sennosides sennosides 2018-03 Yes [facility] Unknown Unknown 8.6 mg 8.6 mg 0-20 Jerem[facility] PASTOR tablet tablet carboxymeth carboxymeth 2018-03 Yes [place] Unknown Unknown ylcellulose ylcellulose 0-20 MDJeremiah 1 1 %-glycerin %-glycerin 0.9 % eye 0.9 % eye gel drops gel drops Vital Signs Vital Name Observation Time Observation Value Comments SYSTOLIC mm[Hg] 2019-02-04 18:08:52 118 mm[Hg] mm[Hg] Method: Sit SYSTOLIC mm[Hg] 2017-07-21 17:59:29 138 mm[Hg] mm[Hg] Method: Stand SYSTOLIC mm[Hg] 2016-01-22 17:50:23 140 mm[Hg] mm[Hg] Method: Lie DIASTOLIC mm[Hg] 2019-02-04 18:08:52 65 mm[Hg] mm[Hg] Method: Sit DIASTOLIC mm[Hg] 2017-07-21 17:59:29 87 mm[Hg] mm[Hg] Method: Stand DIASTOLIC mm[Hg] 2016-01-22 17:50:23 80 mm[Hg] mm[Hg] Method: Lie PULSE 2019-02-04 18:08:52 78 /min /min RESP RATE 2019-02-04 18:08:52 18 /min /min TEMP 2019-02-04 18:08:52 98.3 [degF] Procedures This patient has no known procedures. Results This patient has no known results.
--- OUTSIDE RECORDS SUMMARY | 2019-02-06 09:10 | XMS REPORT ---
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 Chronic Chronic Diagnosis Active Estelita systolic systolic 06-12 Ulisses (congestive (congestive [id number] ) heart ) heart failure failure Chronic Chronic Diagnosis Active 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 0-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, disease, unspecified unspecified Type 2 Type 2 Diagnosis Active [place] diabetes diabetes 06-12 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, neuropathy, unsp unsp 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 [id number] toe(s) toe(s) I48.91 I48.91 Diagnosis Active [place] 06-12 Ulisses [id number] Safety knowledge/s Safety Resolve 2015-07-26 Meghann kill d 2-15 15:15:00 Jasen deficit: pt 10:00: [id number] 00 Diagnoses knowledge/s Diagnoses Active Meghann kill 2-15 Jasen deficit: pt 10:00: [id number] 00 Diagnoses knowledge/s Diagnoses Active Meghann kill 2-15 Jasen deficit: cg 10:00: [id number] 00 Respiratory knowledge/s Respirator Resolve 2015-10-22 Martina kill y d 07 10:30:00 Sinnigen deficit: cg 10:30: [id number] 00 Pain frequent Pain Mgmt Resolve 2018-08-03 Paula pain d 06-03 12:10:00 [place] 11:00: [id number] 00 Respiratory oxygen Respirator Resolve 2015-2016-12-09 Paula treatments y d 3-14 12:18:00 Eri in home 11:00: [id number] 00 Respiratory CPAP Respirator Resolve 2016-12-09 Paula treatments y d 3-14 12:18:00 [place] in home 11:00: [id number] 00 Integument skin Integument Resolve 2015-06-08 Paual integrity d 3-14 14:20:00 [place] risk 11:00: [id number] 00 Nutrition knowledge/s Nutrition Resolve 2015-06-08 Paula kill d 3-14 14:20:00 [place] deficit: pt 11:00: [id number] 00 Nutrition knowledge/s Nutrition Resolve 2015-06-08 Paula kill d 3-14 14:20:00 [place] deficit: cg 11:00: [id number] Neuro knowledge/s Neuro/Emot Resolve 2015-06-08 Paula kill ion d 3-14 14:20:00 [place] deficit: pt 11:00: [id number] Neuro seizures Neuro/Emot Resolve 2015-06-08 Paula ion d 3-14 14:20:00 [place] 11:00: [id number] 00 Activity ADL Activity Resolve 2015-06-08 Paula assistance d 3-14 14:20:00 Eri required 11:00: [id number] Safety fall risk Safety Resolve 2015-06-08 Paula factor d 3-14 14:20:00 Eri present 11:00: [id number] 00 Safety risk for Safety Resolve 2015-06-08 Paula hospitaliza d 3-14 14:20:00 [place] tion 11:00: [id number] 00 Medication knowledge/s Meds Resolve 2015-06-08 Paula kill d 3-14 14:20:00 Eri deficit: pt 11:00: [id number] 00 Musculoskel knowledge/s Musculoske Resolve 2015-06-08 Paula etal kill letal d 3-14 14:20:00 Eri deficit: pt 11:00: [id number] Psych psych risk Psych Resolve 2015-06-08 Paula Problems factors d 3-14 14:20:00 [place] present 11:00: [id number] 00 Bed transfer PT/OT: Bed Resolve 2015-06-08 Rubén Mobility/Tr deficit: Mobility/T d 3-18 14:20:00 Que mack sit/stand ransfer 14:20: [id number] 00 Bed transfer PT/OT: Bed Resolve 2015-06-08 Rubén Mobility/Tr deficit: Mobility/T d 3-18 14:20:00 Que mack toilet/comm ransfer 14:20: [id number] ode 00 Bed transfer PT/OT: Bed Resolve 2015-06-08 Rubén Mobility/Tr deficit: Mobility/T d 318 14:20:00 Que mack shower/tub ransfer 14:20: [id number] 00 Bed transfer PT/OT: Bed Resolve 2015-06-08 Rubén Mobility/Tr deficit: Mobility/T d 318 14:20:00 Que mack vehicle ransfer 14:20: [id number] 00 Bed knowledge/s PT/OT: Bed Resolve 2015-06-08 Rubén Mobility/Tr kill Mobility/T d 318 14:20:00 Que mack deficit: pt ransfer 14:20: [id number] 00 Bed bed PT/OT: Bed Resolve 2015-06-08 Rubén Mobility/Tr mobility Mobility/T d 318 14:20:00 Que mack deficit ransfer 14:20: [id number] 00 Balance/End endurance PT/OT: Resolve 2015-06-12 Rubén urance deficit Balance/En d 318 14:50:00 Que durance 14:20: [id number] 00 Balance/End knowledge/s PT/OT: Resolve 2015-06-12 Rubén urance kill Balance/En d 18 14:50:00 Que deficit: pt durance 14:20: [id number] 00 Gait/Locomo gait PT/OT: Resolve 2015-06-08 Rubén tion assistive Gait/Locom d 318 14:20:00 Que problems device otion 14:20: [id number] present 00 Gait/Locomo knowledge/s PT/OT: Resolve 2015-06-08 Rubén tion kill Gait/Locom d 06-07 14:20:00 Que problems deficit: pt otion 14:20: [id number] 00 Gait/Locomo gait PT/OT: Resolve 2015-06-08 Rubén tion deficit Gait/Locom d 06-07 14:20:00 Que problems otion 14:20: [id number] 00 Safety risk for Safety Resolve 2015-06-12 [facility] 14:50:00 [place] tion 09:35: [id number] 00 Bed transfer PT/OT: Bed Resolve 2015-06-12 Rubén Mobility/Tr deficit: Mobility/T d 06-11 14:50:00 Que ansfer sit/stand ransfer 14:50: [id number] 00 Gait/Locomo knowledge/s PT/OT: Resolve 2015-06-12 Rubén tion kill Gait/Locom d 06-11 14:50:00 Que problems deficit: pt otion 14:50: [id number] 00 Gait/Locomo gait PT/OT: Resolve 2015-06-12 Rubén tion deficit Gait/Locom d 06-11 14:50:00 Que problems otion 14:50: [id number] 00 Safety risk for Safety Resolve [facility]06[facility] 14:20[facility] Eri tion 10:30: [id number] 00 Bed transfer PT/OT: Bed Resolve 2015-06-15 Rubén Mobility/Tr deficit: Mobility/T d 06-14 14:20:00 Que ansfer sit/stand ransfer 14:20: [id number] 00 Bed transfer PT/OT: Bed Resolve 2015-06-15 Rubén Mobility/Tr deficit: Mobility/T d 06-14 14:20:00 Que ansfer toilet/comm ransfer 14:20: [id number] ode 00 Gait/Locomo gait PT/OT: Resolve 2015-06-15 Rubén tion assistive Gait/Locom d 06-14 14:20:00 Que problems device otion 14:20: [id number] present 00 Gait/Locomo knowledge/s PT/OT: Resolve 2015-06-15 Rubén tion kill Gait/Locom d 06-14 14:20:00 Que problems deficit: pt otion 14:20: [id number] 00 Gait/Locomo gait PT/OT: Resolve 2015-06-15 Rubén tion deficit Gait/Locom d 06-14 14:20:00 Que problems otion 14:20: [id number] 00 Respiratory dyspnea Respirator Resolve 2016-12-09 Paula present y d 06-21 12:18:00 Eri 13:00: [id number] 00 Respiratory lung sounds Respirator Resolve 2015-06-29 Paula deficit y d 06-21 14:20:00 Eri 13:00: [id number] 00 Bed transfer PT/OT: Bed Resolve 2015-06-22 Rubén Mobility/Tr deficit: Mobility/T d 06-21 14:20:00 Que ansfer sit/stand ransfer 14:20: [id number] 00 Balance/End knowledge/s PT/OT: Resolve 2015-06-22 Rubén urance kill Balance/En d 06-21 14:20:00 Que deficit: pt durance 14:20: [id number] 00 Balance/End endurance PT/OT: Resolve 2015-06-22 Rubén urance deficit Balance/En d 06-21 14:20:00 Que durance 14:20: [id number] 00 Gait/Locomo knowledge/s PT/OT: Resolve 2015-06-22 Rubén tion kill Gait/Locom d 06-21 14:20:00 Que problems deficit: pt otion 14:20: [id number] 00 Gait/Locomo gait PT/OT: Resolve 2015-06-22 Rubén tion deficit Gait/Locom d 06-21 14:20:00 Qeu problems otion 14:20: [id number] 00 Gait/Locomo gait PT/OT: Resolve 2015-06-22 Rubén tion assistive Gait/Locom d 06-21 14:20:00 Que problems device otion 14:20: [id number] present 00 Elimination diarrhea Eliminatio Resolve 2015-06-29 Martina n d 06-24 14:20:00 [place] 10:15: [id number] 00 Safety risk for Safety Resolve 2015-06-29 Martina hospitaliza d 06-24 14:20:00 [place] tion 10:15: [id number] 00 Safety can be left Safety Resolve 2015-07-02 Rubén alone for d 06-28 15:15:00 Que only short 14:20: [id number] periods 00 Bed mobility/tr PT/OT: Bed Resolve 2015-07-02 Rubén Mobility/Tr ansfer Mobility/T d 06-28 15:15:00 Que ansfer device ransfer 14:20: [id number] present 00 Bed transfer PT/OT: Bed Resolve 2015-06-29 Rubén Mobility/Tr deficit: Mobility/T d 06-28 14:20:00 Que ansfer sit/stand ransfer 14:20: [id number] 00 Endo/Nito knowledge/s Endo/Nito Resolve 2015-07-05 Paula kill d 07-01 15:15:00 Eri deficit: pt 13:30: [id number] 00 Endo/Nito knowledge/s Endo/Nito Resolve 2015-07-05 Paula kill d 07-01 15:15:00 Eri deficit: cg 13:30: [id number] 00 Endo/Nito knowledge/s Endo/Nito Resolve 2015-07-05 Paula kill d 07-01 15:15:00 Eri deficit 13:30: [id number] hypo/hyperg 00 lycemia: pt Endo/Nito knowledge/s Endo/Nito Resolve 2015-07-05 Paula kill d 07-01 15:15:00 [place] deficit 13:30: [id number] hypo/hyperg 00 lycemia: cg Neuro knowledge/s Neuro/Emot Resolve 2015-07-05 Paula kill ion d 07-01 15:15:00 [place] deficit: pt 13:30: [id number] 00 Neuro seizures Neuro/Emot Resolve 2015-07-05 Paula ion d 07-01 15:15:00 [place] 13:30: [id number] 00 Safety risk for Safety Resolve 2015-07-02 Paula hospitaliza d 07-01 15:15:00 [place] tion 13:30: [id number] 00 Bed transfer PT/OT: Bed Resolve 2015-07-02 Rubén Mobility/Tr deficit: Mobility/T d 07-01 15:15:00 Que ansfer sit/stand ransfer 15:15: [id number] 00 Gait/Locomo gait PT/OT: Resolve 2015-07-02 Rubén tion assistive Gait/Locom d 07-01 15:15:00 Que problems device otion 15:15: [id number] present 00 Gait/Locomo knowledge/s PT/OT: Resolve 2015-07-02 Rubén tion kill Gait/Locom d 07-01 15:15:00 Que problems deficit: pt otion 15:15: [id number] 00 Gait/Locomo gait PT/OT: Resolve 2015-07-02 Rubén tion deficit Gait/Locom d 07-01 15:15:00 Que problems otion 15:15: [id number] 00 Bed transfer PT/OT: Bed Resolve 2015-07-05 Rubén Mobility/Tr deficit: Mobility/T d 07-04 15:15:00 Que ansfer sit/stand ransfer 15:15: [id number] 00 Bed mobility/tr PT/OT: Bed Resolve 2015-07-05 Rubén Mobility/Tr ansfer Mobility/T d 07-04 15:15:00 Que ansfer device ransfer 15:15: [id number] present 00 Balance/End knowledge/s PT/OT: Resolve 2015-07-09 Rubén urance kill Balance/En d 07-04 14:30:00 Que deficit: pt durance 15:15: [id number] 00 Balance/End endurance PT/OT: Resolve 2015-07-05 Rubén urance deficit Balance/En d 07-04 15:15:00 Que durance 15:15: [id number] 00 Gait/Locomo gait PT/OT: Resolve 2015-07-05 Rubén tion assistive Gait/Locom d 07-04 15:15:00 Que problems device otion 15:15: [id number] present 00 Gait/Locomo knowledge/s PT/OT: Resolve 2015-07-05 Rubén tion kill Gait/Locom d - 15:15:00 Que problems deficit: pt otion 15:15: [id number] 00 Gait/Locomo gait PT/OT: Resolve 2015-07-05 Rubén tion deficit Gait/Locom d -14 15:15:00 Que problems otion 15:15: [id number] 00 Bed transfer PT/OT: Bed Resolve 2015-07-11 Rubné Mobility/Tr deficit: Mobility/T d 07-08 14:45:00 Que ansfer sit/stand ransfer 14:30: [id number] 00 Balance/End endurance PT/OT: Resolve 2015-07-09 Rubén urance deficit Balance/En d 07-08 14:30:00 Que durance 14:30: [id number] 00 Gait/Locomo gait PT/OT: Resolve 2015-07-09 Rubén tion assistive Gait/Locom d 07-08 14:30:00 Que problems device otion 14:30: [id number] present 00 Gait/Locomo knowledge/s PT/OT: Resolve 2015-07-09 Rubén tion kill Gait/Locom d 07-08 14:30:00 Que problems deficit: pt otion 14:30: [id number] 00 Gait/Locomo gait PT/OT: Resolve 2015-07-09 Rubén tion deficit Gait/Locom d 07-08 14:30:00 Que problems otion 14:30: [id number] 00 Test/Treatm venipunctur Test/Injec Resolve 2015-07-16 Paula ent e ordered t/Sebastien d 07-09 14:00:00 Eri [id number] Gait/Locomo gait PT/OT: Resolve 2015-07-11 Rubén tion deficit Gait/Locom d 07-10 14:45:00 Que problems otion 14:45: [id number] 00 Gait/Locomo knowledge/s PT/OT: Resolve 2015-07-11 Rubén tion kill Gait/Locom d 07-10 14:45:00 Que problems deficit: pt otion 14:45: [id number] 00 Respiratory lung sounds Respirator Resolve 2015-07-16 Kavon deficit y d 07-11 14:00:00 [place] 09:00: [id number] 00 Respiratory oxygen Respirator Unknown Kavon treatments y 07-11 [place] in home 09:00: [id number] 00 Respiratory dyspnea Respirator Unknown Kavon present y 07-11 [place] 09:00: [id number] 00 Endo/Nito knowledge/s Endo/Nito Resolve 2015-07-16 Kavon kill d 07-11 14:00:00 [place] deficit: cg 09:00: [id number] 00 Endo/Nito knowledge/s Endo/Nito Resolve 2015-07-16 Kavon kill d 07-11 14:00:00 [place] deficit 09:00: [id number] hypo/hyperg 00 lycemia: pt Sensory impaired Sensory Resolve 2015-07-16 Kavon vision d 07-11 14:00:00 [place] 09:00: [id number] 00 Neuro seizures Neuro/Emot Resolve 2015-07-16 Kavon ion d 07-11 14:00:00 [place] 09:00: [id number] 00 Medication oral med Meds Unknown Kavon assistance 07-11 [place] required 09:00: [id number] 00 Musculoskel knowledge/s Musculoske Resolve 2015-07-16 Kavon etal kill letal d 07-11 14:00:00 [place] deficit: pt 09:00: [id number] 00 Psych psych risk Psych Resolve 2015-07-16 Kavon Problems factors d 07-11 14:00:00 [place] present 09:00: [id number] 00 Elimination constipatio Eliminatio Resolve 2015-07-26 Martina n n d 07-15 15:15:00 [place] 09:00: [id number] 00 Safety risk for Safety Resolve 2015-08-07 Rubén hospitaliza d 07-15 14:15:00 Que tion 14:00: [id number] 00 Bed transfer PT/OT: Bed Resolve 2015-07-16 Rubén Mobility/Tr deficit: Mobility/T d 07-15 14:00:00 Que ansfer sit/stand ransfer 14:00: [id number] 00 Gait/Locomo gait PT/OT: Resolve 2015-07-16 Rubén tion deficit Gait/Locom d 07-15 14:00:00 Que problems otion 14:00: [id number] 00 Gait/Locomo knowledge/s PT/OT: Resolve 2015-07-16 Rubén tion kill Gait/Locom d 07-15 14:00:00 Que problems deficit: pt otion 14:00: [id number] 00 Test/Treatm venipunctur Test/Injec Active Paula ent e ordered t/Sebastien 07-17 [place] [id number] Pain frequent Pain Mgmt Unknown Sara pain 07-20 Charli 11:00: [id number] 00 Respiratory oxygen Respirator Unknown Sara treatments y 07-20 Charli in home 11:00: [id number] 00 Respiratory lung sounds Respirator Resolve 2015-08-07 Sara deficit y d 07-20 14:15:00 Charli 11:00: [id number] 00 Endo/Nito diabetic Endo/Nito Resolve 2015-08-15 Sara foot care d 07-20 15:30:00 Charli 11:00: [id number] 00 Endo/Nito knowledge/s Endo/Nito Resolve 2015-08-15 Sara kill d 07-20 15:30:00 Augustin deficit 11:00: [id number] hypo/hyperg 00 lycemia: pt Endo/Nito insulin Endo/Nito Resolve 2016-12-09 Sara admn d 07-20 12:18:00 Augustin dependence 11:00: [id number] 00 Endo/Nito knowledge/s Endo/Nito Resolve 2015-08-15 Sara kill d 07-20 15:30:00 Charli deficit: pt 11:00: [id number] 00 Endo/Nito knowledge/s Endo/Nito Resolve 2015-08-15 Sara kill d 07-20 15:30:00 Charli deficit: cg 11:00: [id number] 00 Integument skin Integument Resolve 2015-08-07 Sara integrity d 07-20 14:15:00 Augustin risk 11:00: [id number] 00 Integument other wound Integument Resolve 2015-08-07 Sara present d 07-20 14:15:00 Augustin 11:00: [id number] 00 Neuro seizures Neuro/Emot Resolve 2015-08-07 Sara ion d 07-20 14:15:00 Augustin 11:00: [id number] 00 Neuro confusion Neuro/Emot Resolve 2015-08-07 Sara present ion d 07-20 14:15:00 Augustin 11:00: [id number] 00 Neuro anxiety Neuro/Emot Resolve 2015-08-07 Sara present ion d 07-20 14:15:00 Augustin 11:00: [id number] 00 Neuro depressive Neuro/Emot Resolve 2015-08-07 Sara feelings ion d 07-20 14:15:00 Augustin present 11:00: [id number] 00 Activity ADL Activity Unknown Sara assistance 07-20 Charli required 11:00: [id number] 00 Safety fall risk Safety Resolve 2015-08-07 Sara factor d 07-20 14:15:00 Augustin present 11:00: [id number] 00 Medication oral med Meds Resolve 2016-01-08 Sara assistance d 07-20 11:20:00 Charli required 11:00: [id number] 00 Medication injectable Meds Resolve 2016-09-15 Sara med d 07-20 09:00:00 Charli assistance 11:00: [id number] required 00 Musculoskel knowledge/s Musculoske Resolve 2015-08-07 Sara etal kill letal d 07-20 14:15:00 Charli deficit: pt 11:00: [id number] 00 Musculoskel transfer Musculoske Unknown Sara etal assistance letal 07-20 Charli required 11:00: [id number] 00 Bed transfer PT/OT: Bed Resolve 2015-07-26 Rubén Mobility/Tr deficit: Mobility/T d 07-25 15:15:00 Que mack sit/stand ransfer 15:15: [id number] 00 Gait/Locomo gait PT/OT: Resolve 2015-07-26 Rubén tion assistive Gait/Locom d 07-25 15:15:00 Que problems device otion 15:15: [id number] present 00 Gait/Locomo gait PT/OT: Resolve 2015-07-26 Rubén tion deficit Gait/Locom d 07-25 15:15:00 Que problems otion 15:15: [id number] 00 Gait/Locomo knowledge/s PT/OT: Resolve 2015-07-26 Rubén tion kill Gait/Locom d 07-25 15:15:00 Que problems deficit: pt otion 15:15: [id number] 00 Bed transfer PT/OT: Bed Resolve 2015-08-07 Rubén Mobility/Tr deficit: Mobility/T d 07-29 14:15:00 Que ansfer sit/stand ransfer 14:45: [id number] 00 Gait/Locomo knowledge/s PT/OT: Resolve 2015-07-30 Rubén tion kill Gait/Locom d 07-29 14:45:00 Que problems deficit: pt otion 14:45: [id number] 00 Gait/Locomo gait PT/OT: Resolve 2015-07-30 Rubén tion assistive Gait/Locom d 07-29 14:45:00 Que problems device otion 14:45: [id number] present 00 Gait/Locomo gait PT/OT: Resolve 2015-07-30 Rubén tion deficit Gait/Locom d 07-29 14:45:00 Que problems otion 14:45: [id number] 00 Respiratory dyspnea Respirator Unknown Paula present y 08-01 Eri 12:00: [id number] 00 Elimination urinary Eliminatio Resolve 2015-08-02 Paula incontinenc n d 08-01 12:00:00 Eri gaffney 12:00: [id number] 00 Neuro impaired Neuro/Emot Resolve 2015-08-07 Paula decision-ma ion d 08-01 14:15:00 Eri ibanez 12:00: [id number] 00 Musculoskel requires Musculoske Unknown Paula etal human letal 08-01 [place] assist to 12:00: [id number] leave home 00 Elimination urinary Eliminatio Resolve 2015-08-15 Rubén incontinenc n d 08-06 15:30:00 Que e 14:15: [id number] 00 Gait/Locomo gait PT/OT: Resolve 2015-08-10 Rubén tion assistive Gait/Locom d 08-06 13:10:00 Que problems device otion 14:15: [id number] present 00 Gait/Locomo knowledge/s PT/OT: Resolve 2015-08-10 Rubén tion kill Gait/Locom d 08-06 13:10:00 Que problems deficit: pt otion 14:15: [id number] 00 Gait/Locomo gait PT/OT: Resolve 2015-08-10 Rubén tion deficit Gait/Locom d 08-06 13:10:00 Que problems otion 14:15: [id number] 00 Safety risk for Safety Resolve 2015-08-15 Rubén hospitaliza d 08-09 15:30:00 Que tion 13:10: [id number] 00 Bed transfer PT/OT: Bed Resolve 2015-08-10 Rubén Mobility/Tr deficit: Mobility/T d 08-09 13:10:00 Que ansfer sit/stand ransfer 13:10: [id number] 00 Bed transfer PT/OT: Bed Resolve 2015-08-15 Rubén Mobility/Tr deficit: Mobility/T d 08-14 15:30:00 Que ansfer sit/stand ransfer 15:30: [id number] 00 Gait/Locomo gait PT/OT: Resolve 2015-08-15 Rubén tion assistive Gait/Locom d 08-14 15:30:00 Que problems device otion 15:30: [id number] present 00 Gait/Locomo knowledge/s PT/OT: Resolve 2015-08-15 Rubén tion kill Gait/Locom d 08-14 15:30:00 Que problems deficit: pt otion 15:30: [id number] 00 Gait/Locomo gait PT/OT: Resolve 2015-08-15 Rubén tion deficit Gait/Locom d 08-14 15:30:00 Que problems otion 15:30: [id number] 00 Safety risk for Safety Resolve 2015-08-16 Paula hospitaliza d 08-15 16:45:00 [place] tion 12:30: [id number] 00 Bed transfer PT/OT: Bed Resolve 2015-08-16 Rubén Mobility/Tr deficit: Mobility/T d 08-15 16:45:00 Que ansfer sit/stand ransfer 16:45: [id number] 00 Gait/Locomo gait PT/OT: Resolve 2015-08-16 Rubén tion deficit Gait/Locom d 08-15 16:45:00 Que problems otion 16:45: [id number] 00 Safety risk for Safety Resolve 2015-08-24 Rubén hospitaliza d 08-21 15:30:00 Que tion 14:45: [id number] 00 Bed transfer PT/OT: Bed Resolve 2015-08-22 Rubén Mobility/Tr deficit: Mobility/T d 08-21 14:45:00 Que ansfer sit/stand ransfer 14:45: [id number] 00 Gait/Locomo gait PT/OT: Resolve 2015-08-22 Rubén tion assistive Gait/Locom d 08-21 14:45:00 Que problems device otion 14:45: [id number] present 00 Gait/Locomo gait PT/OT: Resolve 2015-08-22 Rubén tion deficit Gait/Locom d 08-21 14:45:00 Que problems otion 14:45: [id number] 00 Bed transfer PT/OT: Bed Resolve 2015-08-24 Rubén Mobility/Tr deficit: Mobility/T d 08-23 15:30:00 Que ansfer sit/stand ransfer 15:30: [id number] 00 Gait/Locomo gait PT/OT: Resolve 2015-08-24 Rubén tion assistive Gait/Locom d 08-23 15:30:00 Que problems device otion 15:30: [id number] present 00 Gait/Locomo gait PT/OT: Resolve 2015-08-24 Rubén tion deficit Gait/Locom d 08-23 15:30:00 Que problems otion 15:30: [id number] 00 Safety risk for Safety Resolve 2015-08-31 [facility] 15:15:00 [place] tion 14:45: [id number] 00 Bed transfer PT/OT: Bed Resolve 2015-09-04 Rubén Mobility/Tr deficit: Mobility/T d 08-30 14:25:00 Que ansfer sit/stand ransfer 15:15: [id number] 00 Gait/Locomo gait PT/OT: Resolve 2015-08-31 Rubén tion assistive Gait/Locom d 6 15:15:00 Que problems device otion 15:15: [id number] present 00 Gait/Locomo gait PT/OT: Resolve 2015-08-31 Rubén tion deficit Gait/Locom d 08-30 15:15:00 Que problems otion 15:15: [id number] 00 Respiratory lung sounds Respirator Resolve 2015-10-22 Martina deficit y d 6- 10:30:00 [place] 11:30: [id number] 00 Safety risk for Safety Resolve 2015-09-06 Martina hospitaliza d 6- 16:15:00 [place]inn[place] tion 11:30: [id number] 00 Gait/Locomo gait PT/OT: Resolve 2015-09-04 Rubén tion assistive Gait/Locom d 09-03 14:25:00 Que problems device otion 14:25: [id number] present 00 Gait/Locomo gait PT/OT: Resolve 2015-09-04 Rubén tion deficit Gait/Locom d 09-03 14:25:00 Que problems otion 14:25: [id number] 00 Bed transfer PT/OT: Bed Resolve 2015-09-06 Rubén Mobility/Tr deficit: Mobility/T d 09-05 16:15:00 Que ansfer sit/stand ransfer 16:15: [id number] 00 Gait/Locomo gait PT/OT: Resolve 2015-09-06 Rubén tion assistive Gait/Locom d 09-05 16:15:00 Que problems device otion 16:15: [id number] present 00 Gait/Locomo gait PT/OT: Resolve 2015-09-06 Rubén tion deficit Gait/Locom d 09-05 16:15:00 Que problems otion 16:15: [id number] 00 Safety risk for Safety Resolve 2015-09-10 Rubén hospitaliza d 09-09 15:15:00 Que tion 15:15: [id number] 00 Bed transfer PT/OT: Bed Resolve 2015-09-10 Rubén Mobility/Tr deficit: Mobility/T d 09-09 15:15:00 Que ansfer sit/stand ransfer 15:15: [id number] 00 Gait/Locomo gait PT/OT: Resolve 2015-09-10 Rubén tion assistive Gait/Locom d 09-09 15:15:00 Que problems device otion 15:15: [id number] present 00 Gait/Locomo gait PT/OT: Resolve 2015-09-10 Rubén tion deficit Gait/Locom d 09-09 15:15:00 Que problems otion 15:15: [id number] 00 Safety risk for Safety Resolve 2015-09-17 Rubén hospitaliza d 09-12 15:15:00 Que tion 14:45: [id number] 00 Bed transfer PT/OT: Bed Resolve 2015-09-17 Rubén Mobility/Tr deficit: Mobility/T d 09-12 15:15:00 Que ansfer sit/stand ransfer 14:45: [id number] 00 Gait/Locomo gait PT/OT: Resolve 2015-09-17 Rubén tion assistive Gait/Locom d 09-12 15:15:00 Que problems device otion 14:45: [id number] present 00 Gait/Locomo gait PT/OT: Resolve 2015-09-17 Rubén tion deficit Gait/Locom d 09-12 15:15:00 Que problems otion 14:45: [id number] 00 Safety risk for Safety Resolve 2015-09-25 Rubén hospitaliza d 09-19 14:15:00 Que tion 14:45: [id number] 00 Bed transfer PT/OT: Bed Resolve 2015-09-20 Rubén Mobility/Tr deficit: Mobility/T d 09-19 14:45:00 Que ansfer sit/stand ransfer 14:45: [id number] 00 Gait/Locomo gait PT/OT: Resolve 2015-09-20 Rubén tion assistive Gait/Locom d 09-19 14:45:00 Que problems device otion 14:45: [id number] present 00 Gait/Locomo gait PT/OT: Resolve 2015-09-20 Rubén tion deficit Gait/Locom d 09-19 14:45:00 Que problems otion 14:45: [id number] 00 Bed transfer PT/OT: Bed Resolve 2015-09-25 uRbén Mobility/Tr deficit: Mobility/T d 09-24 14:15:00 Que ansfer sit/stand ransfer 14:15: [id number] 00 Bed bed PT/OT: Bed Resolve 2015-09-25 Rubén Mobility/Tr mobility Mobility/T d 09-24 14:15:00 Que ansfer deficit ransfer 14:15: [id number] 00 Safety risk for Safety Resolve 2015-09-27 Rubén hospitaliza d 09-26 14:00:00 Que tion 14:00: [id number] Bed transfer PT/OT: Bed Resolve 2015-09-27 Rubén Mobility/Tr deficit: Mobility/T d 09-26 14:00:00 Que ansfer sit/stand ransfer 14:00: [id number] 00 Gait/Locomo gait PT/OT: Resolve 2015-09-27 Rubén tion assistive Gait/Locom d 09-26 14:00:00 Que problems device otion 14:00: [id number] present 00 Gait/Locomo gait PT/OT: Resolve 2015-09-27 Rubén tion deficit Gait/Locom d 09-26 14:00:00 Que problems otion 14:00: [id number] Safety risk for Safety Resolve 2015-10-22 Martina hospitaliza d 09-30 10:30:00 Sinnigen tion 09:30: [id number] Bed transfer PT/OT: Bed Resolve 2015-10-03 Rubén Mobility/Tr deficit: Mobility/T d 10-01 12:45:00 Que ansfer sit/stand ransfer 14:00: [id number] Gait/Locomo gait PT/OT: Resolve 2015-10-02 Rubén tion assistive Gait/Locom d 7-12 14:00:00 Que problems device otion 14:00: [id number] present 00 Gait/Locomo knowledge/s PT/OT: Resolve 2015-10-02 Rubén tion kill Gait/Locom d 10-01 14:00:00 Que problems deficit: pt otion 14:00: [id number] Gait/Locomo gait PT/OT: Resolve 2015-10-02 Rubén tion deficit Gait/Locom d 10-01 14:00:00 Que problems otion 14:00: [id number] 00 Respiratory oxygen Respirator Unknown Paula treatments y 7- [place] in home 10:00: [id number] 00 Respiratory dyspnea Respirator Unknown Paula present y 10-02 [place] 10:00: [id number] 00 Neuro impaired Neuro/Emot Resolve 2015-10-29 Paula decision-ma ion d 7-13 10:00:00 Eri marcelle 10:00: [id number] 00 Neuro memory Neuro/Emot Resolve 2015-11-19 Paula deficit ion d 13 10:00:00 [place] needing 10:00: [id number] supervision 00 Activity ADL Activity Resolve 2016-02-18 Paula assistance d 10-02 09:30:00 Eri required 10:00: [id number] 00 Safety fall risk Safety Resolve 2015-10-22 Paula factor d -13 10:30:00 Eri present 10:00: [id number] Safety can be left Safety Resolve 2015-10-22 Paula alone for d 10-02 10:30:00 Eri only short 10:00: [id number] periods 00 Musculoskel requires Musculoske Resolve 2016-07-14 Paula etal human letal d 10-02 09:45:00 Eri assist to 10:00: [id number] leave home 00 Gait/Locomo gait PT/OT: Resolve 2015-10-03 Rubén tion assistive Gait/Locom d 7- 12:45:00 Que problems device otion 12:45: [id number] present 00 Gait/Locomo knowledge/s PT/OT: Resolve 2016-0 2015-10-03 Rubén tion kill Gait/Locom d 10-02 12:45:00 Que problems deficit: pt otion 12:45: [id number] 00 Gait/Locomo gait PT/OT: Resolve 2015-10-03 Rubén tion deficit Gait/Locom d 10-02 12:45:00 Que problems otion 12:45: [id number] 00 Bed transfer PT/OT: Bed Resolve 2015-10-08 Rubén Mobility/Tr deficit: Mobility/T d 10-07 14:45:00 Que ansfer sit/stand ransfer 14:45: [id number] 00 Gait/Locomo knowledge/s PT/OT: Resolve 2015-10-08 Rubén tion kill Gait/Locom d 10-07 14:45:00 Que problems deficit: pt otion 14:45: [id number] 00 Gait/Locomo gait PT/OT: Resolve 2015-10-08 Rubén tion deficit Gait/Locom d 10-07 14:45:00 Que problems otion 14:45: [id number] 00 Bed transfer PT/OT: Bed Resolve 2015-10-11 Rubén Mobility/Tr deficit: Mobility/T d 10-10 14:30:00 Que ansfer sit/stand ransfer 14:30: [id number] 00 Gait/Locomo gait PT/OT: Resolve 2015-10-11 Rubén tion assistive Gait/Locom d 10-10 14:30:00 Que problems device otion 14:30: [id number] present 00 Gait/Locomo knowledge/s PT/OT: Resolve 2015-10-11 Rubén tion kill Gait/Locom d 10-10 14:30:00 Que problems deficit: pt otion 14:30: [id number] 00 Gait/Locomo gait PT/OT: Resolve 2015-10-11 Rubén tion deficit Gait/Locom d 10-10 14:30:00 Que problems otion 14:30: [id number] 00 Respiratory dyspnea Respirator Unknown Analilia present y 10-14 [place] 09:45: [id number] 00 Safety structural Safety Resolve 2015-10-22 Analilia barriers d 10-14 10:30:00 [place] present 09:45: [id number] 00 Musculoskel transfer Musculoske Resolve 2016-07-14 Analilia etal assistance letal d 10-14 09:45:00 Kiara required 09:45: [id number] 00 Musculoskel requires Musculoske Resolve 2016-07-14 Analilia etal special letal d 10-14 09:45:00 [place] transportat 09:45: [id number] ion 00 Bed transfer PT/OT: Bed Resolve 2015-10-18 Rubén Mobility/Tr deficit: Mobility/T d 10-14 14:00:00 Que ansfer sit/stand ransfer 12:50: [id number] 00 Gait/Locomo gait PT/OT: Resolve 2015-10-15 Rubén tion assistive Gait/Locom d 10-14 12:50:00 Que problems device otion 12:50: [id number] present 00 Gait/Locomo knowledge/s PT/OT: Resolve 2015-10-15 Rubén tion kill Gait/Locom d 10-14 12:50:00 Que problems deficit: pt otion 12:50: [id number] 00 Gait/Locomo gait PT/OT: Resolve 2015-10-15 Rubén tion deficit Gait/Locom d 10-14 12:50:00 Que problems otion 12:50: [id number] 00 Gait/Locomo gait PT/OT: Resolve 2015-10-18 Rubén tion assistive Gait/Locom d 10-17 14:00:00 Que problems device otion 14:00: [id number] present 00 Gait/Locomo knowledge/s PT/OT: Resolve 2015-10-18 Rubén tion kill Gait/Locom d 10-17 14:00:00 Que problems deficit: pt otion 14:00: [id number] 00 Gait/Locomo gait PT/OT: Resolve 2015-10-18 Rubén tion deficit Gait/Locom d 10-17 14:00:00 Que problems otion 14:00: [id number] 00 Respiratory CPAP Respirator Unknown [facility] treatments y 10-21 [place] in home 10:30: [id number] 00 Endo/Nito glucose Endo/Nito Resolve 2015-11-19 [facility] tolerance d 10-21 10:00:00 Greg problem 10:30: [id number] 00 Elimination urinary Eliminatio Resolve 2015-11-23 [facility] incontinenc n d 10-21 08:55:00 Greg e 10:30: [id number] 00 Elimination constipatio Eliminatio Resolve 2015-11-23 [facility] n n d 10-21 08:55:00 Greg 10:30: [id number] 00 Safety sanitation Safety Resolve 2015-10-22 [facility] hazards d 10-21 10:30:00 Greg present 10:30: [id number] 00 Safety risk for Safety Resolve 2015-10-29 Rubén hospitaliza d 10-22 10:00:00 Que tion 13:15: [id number] 00 Gait/Locomo gait PT/OT: Resolve 2015-10-23 Rubén tion assistive Gait/Locom d 10-22 13:15:00 Que problems device otion 13:15: [id number] present 00 Gait/Locomo knowledge/s PT/OT: Resolve 2015-10-23 Rubén tion kill Gait/Locom d 10-22 13:15:00 Que problems deficit: pt otion 13:15: [id number] 00 Gait/Locomo gait PT/OT: Resolve 2015-10-23 Rubén tion deficit Gait/Locom d 10-22 13:15:00 Que problems otion 13:15: [id number] 00 Gait/Locomo gait PT/OT: Resolve 2015-10-26 Rubén tion assistive Gait/Locom d 10-25 12:15:00 Que problems device otion 12:15: [id number] present 00 Gait/Locomo knowledge/s PT/OT: Resolve 2015-10-26 Rubén tion kill Gait/Locom d 10-25 12:15:00 Que problems deficit: pt otion 12:15: [id number] 00 Gait/Locomo gait PT/OT: Resolve 2015-10-26 Rubén tion deficit Gait/Locom d 10-25 12:15:00 Que problems otion 12:15: [id number] 00 Pain frequent Pain Mgmt Unknown [place] pain 10-28 Greg 10:00: [id number] 00 Respiratory oxygen Respirator Unknown [facility] treatments y 10-28 [place] in home 10:00: [id number] 00 Neuro seizures Neuro/Emot Resolve 2015-2015-10-29 [facility] ion d 10-28 10:00:00 [place] 10:00: [id number] 00 Safety structural Safety Resolve 2015-2015-10-29 [facility] barriers d 10-28 10:00:00 [place] present 10:00: [id number] 00 Safety sanitation Safety Resolve 2015-10-29 [facility] hazards d 10-28 10:00:00 [place] present 10:00: [id number] 00 Safety fall risk Safety Resolve 2015-10-29 [facility] factor d 10-28 10:00:00 Greg present 10:00: [id number] 00 Safety can be left Safety Resolve 2015-10-29 [place] alone for d 10-28 10:00:00 Greg only short 10:00: [id number] periods 00 Safety risk for Safety Resolve 2015-11-19 Rub[facility] hospitaliza d 10-29 10:00:00 Que tion 13:30: [id number] 00 Gait/Locomo gait PT/OT: Resolve 2015-10-30 Rubén tion assistive Gait/Locom d 10-29 13:30:00 Que problems device otion 13:30: [id number] present 00 Gait/Locomo knowledge/s PT/OT: Resolve 2015-10-30 Rubén tion kill Gait/Locom d 10-29 13:30:00 Que problems deficit: pt otion 13:30: [id number] 00 Gait/Locomo gait PT/OT: Resolve 2015-10-30 Rubén tion deficit Gait/Locom d 10-29 13:30:00 Que problems otion 13:30: [id number] 00 Gait/Locomo gait PT/OT: Resolve 2015-11-02 Rubén tion assistive Gait/Locom d 11-01 13:15:00 Que problems device otion 13:15: [id number] present 00 Gait/Locomo knowledge/s PT/OT: Resolve 2015-2015-11-02 Rubén tion kill Gait/Locom d 11-01 13:15:00 Que problems deficit: pt otion 13:15: [id number] 00 Gait/Locomo gait PT/OT: Resolve 2015-11-02 Rubén tion deficit Gait/Locom d 11-01 13:15:00 Que problems otion 13:15: [id number] 00 Respiratory lung sounds Respirator Resolve 2015-2016-02-25 Analilia deficit y d 8 09:35:00 [place] 16:00: [id number] 00 Elimination urinary Eliminatio Resolve 2015-11-23 Analilia frequency n d 11-04 08:55:00 [place] 16:00: [id number] 00 Safety fall risk Safety Resolve 2015-11-19 Analilia factor d 815 10:00:00 [place] present 16:00: [id number] 00 Gait/Locomo gait PT/OT: Resolve 2015-11-06 Rubén tion assistive Gait/Locom d 11-05 14:05:00 Que problems device otion 14:05: [id number] present 00 Gait/Locomo knowledge/s PT/OT: Resolve 2015-11-06 Rubén tion kill Gait/Locom d 11-05 14:05:00 Que problems deficit: pt otion 14:05: [id number] 00 Gait/Locomo gait PT/OT: Resolve 2015-11-06 Rubén tion deficit Gait/Locom d 11-05 14:05:00 Que problems otion 14:05: [id number] 00 Endo/Nito insulin Endo/Nito Unknown [facility] admn 11-18 [place] dependence 10:00: [id number] 00 Endo/Nito glucose Endo/Nito Resolve 2017-03-24 [facility] testing d 11-18 14:32:00 [place] dependence 10:00: [id number] 00 Neuro impaired Neuro/Emot Resolve 2016-01-14 [facility] decision-ma ion d 11-18 09:45:00 Greg marcelle 10:00: [id number] 00 Neuro seizures Neuro/Emot Resolve 2015-11-19 [facility] ion d 11-18 10:00:00 [place] 10:00: [id number] 00 Safety sanitation Safety Resolve 2015-12-24 [facility] hazards d 11-18 09:30:00 [place] present 10:00: [id number] 00 Neuro memory Neuro/Emot Unknown [facility] deficit ion 11-18 [place] needing 12:15: [id number] supervision 00 Safety risk for Safety Unknown [facility] hospitaliza 11-18 [place] tion 12:15: [id number] 00 Neuro seizures Neuro/Emot Resolve 2015-12-10 Paula ion d 11-22 09:45:00 Eri 08:55: [id number] 00 Safety risk for Safety Resolve 2015-12-10 Paula hospitaliza d 11-22 09:45:00 [place] tion 08:55: [id number] 00 Infection s/s of Infection Resolve 2017-03-24 [...] 11-27 14:00:00 Que problems device otion 14:15: [id number] present 00 Gait/Locomo knowledge/s PT/OT: Resolve 2015-12-05 Rubén tion kill Gait/Locom d 11-27 14:00:00 Que problems deficit: pt otion 14:15: [id number] 00 Gait/Locomo gait PT/OT: Resolve 2015-12-05 Rubén tion deficit Gait/Locom d 11-27 14:00:00 Que problems otion 14:15: [id number] 00 Sensory impaired Sensory Resolve 2016-09-15 Paula vision d 12-02 09:00:00 [place] 11:06: [id number] 00 Elimination recurring Eliminatio Resolve 2015-12-24 Paula UTI n d 12-02 09:30:00 [place] 11:06: [id number] 00 Safety fall risk Safety Resolve 2015-12-10 Paula factor d 12-02 09:45:00 [place] present 11:06: [id number] 00 Bed transfer PT/OT: Bed Resolve 2015-12-05 Rubén Mobility/Tr deficit: Mobility/T d 12-02 14:00:00 Que ansfer sit/stand ransfer 15:00: [id number] 00 Bed bed PT/OT: Bed Resolve 2015-12-05 Rubén Mobility/Tr mobility Mobility/T d 12-02 14:00:00 Que ansfer deficit ransfer 15:00: [id number] 00 Endo/Nito glucose Endo/Nito Resolve 2015-12-10 [facility] tolerance d 12-09 09:45:00 [place] problem 09:45: [id number] 00 Elimination constipatio Eliminatio Resolve 2016-03-03 [facility] n n d 12-09 10:10:00 Greg 09:45: [id number] 00 Elimination urinary Eliminatio Resolve 2015-12-17 [facility] incontinenc n d 12-09 09:30:00 [place] e 09:45: [id number] 00 Safety structural Safety Resolve 2015-12-24 [facility] barriers d 12-09 09:30:00 [place] present 09:45: [id number] 00 Safety risk for Safety Resolve 2015-12-24 [facility] hospitaliza d 12-10 09:30:00 [place] tion 11:20: [id number] 00 Bed transfer PT/OT: Bed Resolve 2016-01-04 Rubén Mobility/Tr deficit: Mobility/T d 12-12 15:15:00 Que ansfer sit/stand ransfer 12:45: [id number] 00 Gait/Locomo gait PT/OT: Resolve 2015-12-21 Rubén tion assistive Gait/Locom d 12-12 14:30:00 Que problems device otion 12:45: [id number] present 00 Gait/Locomo knowledge/s PT/OT: Resolve 2015-12-21 Rubén tion kill Gait/Locom d 12-12 14:30:00 Que problems deficit: pt otion 12:45: [id number] 00 Gait/Locomo gait PT/OT: Resolve 2015-12-21 Rubén tion deficit Gait/Locom d 12-12 14:30:00 Que problems otion 12:45: [id number] 00 Endo/Nito glucose Endo/Nito Resolve 2016-01-14 [facility] tolerance d 12-16 09:45:00 [place] problem 09:30: [id number] 00 Sensory impaired Sensory Resolve 2016-09-15 [facility] hearing d 12-16 09:00:00 [place] 09:30: [id number] 00 Elimination knowledge/s Eliminatio Resolve 2015-12-17 [place] kill n d 12-16 09:30:00 [place] deficit: pt 09:30: [id number] 00 Elimination knowledge/s Eliminatio Resolve 2015-12-17 [facility] kill n d 12-16 09:30:00 [place] deficit: cg 09:30: [id number] 00 Safety fall risk Safety Resolve 2015-12-24 [place] factor d 12-16 09:30:00 Greg present 09:30: [id number] 00 Elimination urinary Eliminatio Resolve 2015-032016-01-14 [place] incontinenc n d 0 09:45:00 [place] e 09:30: [id number] 00 Elimination urinary Eliminatio Resolve 2015-032016-01-14 [place] frequency n d 0 09:45:00 [place] 09:30: [id number] 00 Elimination knowledge/s Eliminatio Resolve 2015-032015-12-24 [facility] kill n d 0 09:30:00 [place] deficit: pt 09:30: [id number] 00 Safety risk for Safety Resolve 2015-032016-01-08 Rub[facility] hospitaliza d 0 11:20:00 Que tion 14:30: [id number] 00 Gait/Locomo gait PT/OT: Resolve 2015-032016-01-04 Rubén tion assistive Gait/Locom d 0-04 15:15:00 Que problems device otion 14:30: [id number] present 00 Gait/Locomo knowledge/s PT/OT: Resolve 2015-032016-01-04 Rubén tion kill Gait/Locom d 0-04 15:15:00 Que problems deficit: pt otion 14:30: [id number] 00 Gait/Locomo gait PT/OT: Resolve 2015-032016-01-04 Rubén tion deficit Gait/Locom d 0-04 15:15:00 Que problems otion 14:30: [id number] 00 Safety can be left Safety Resolve 2015-032016-02-04 [place] alone for d 0-07 09:45:00 Eri only short 08:00: [id number] periods 00 Endo/Nito diabetic Endo/Nito Resolve 2015-032016-01-14 Paula foot care d 0-13 09:45:00 Eri 12:00: [id number] 00 Neuro confusion Neuro/Emot Resolve 2015-032016-01-14 Paula present ion d 0-13 09:45:00 Eri 12:00: [id number] 00 Neuro anxiety Neuro/Emot Resolve 2015-032016-01-14 Paula present ion d 0-13 09:45:00 [place] 12:00: [id number] 00 Neuro seizures Neuro/Emot Resolve 2015-032016-01-08 Paula ion d 0-13 11:20:00 [place] 12:00: [id number] 00 Safety fall risk Safety Resolve 2015-032016-01-08 Paula factor d 0-13 11:20:00 Eri present 12:00: [id number] 00 Medication potential Meds Resolve 2015-032016-01-08 Paula clinically d 0-13 11:20:00 [place] significant 12:00: [id number] medication 00 issue Safety structural Safety Resolve 2015-032016-01-08 [facility] barriers d 0-18 11:20:00 [place] present 11:20: [id number] 00 Safety sanitation Safety Resolve 2015-032016-01-08 [facility] hazards d 0-18 11:20:00 [place] present 11:20: [id number] 00 Safety risk for Safety Resolve 2015-032016-01-14 Rub[facility] hospitaliza d 0-20 09:45:00 Que tion 14:15: [id number] 00 Bed transfer PT/OT: Bed Resolve 2015-032016-01-10 Rubén Mobility/Tr deficit: Mobility/T d 0-20 14:15:00 Que ansfer sit/stand ransfer 14:15: [id number] 00 Gait/Locomo gait PT/OT: Resolve 2015-032016-01-16 Rubén tion assistive Gait/Locom d 0-20 16:00:00 Que problems device otion 14:15: [id number] present 00 Gait/Locomo knowledge/s PT/OT: Resolve 2015-032016-01-16 Rubén tion kill Gait/Locom d 0-20 16:00:00 Que problems deficit: pt otion 14:15: [id number] 00 Gait/Locomo gait PT/OT: Resolve 2015-032016-01-16 Rubén tion deficit Gait/Locom d 0-20 16:00:00 Que problems otion 14:15: [id number] 00 Safety structural Safety Resolve 2015-032016-01-14 Analilia barriers d 0-21 09:45:00 [place] present 10:08: [id number] 00 Safety fall risk Safety Resolve 2015-032016-01-14 Analilia factor d 0-21 09:45:00 [place] present 10:08: [id number] 00 Bed transfer PT/OT: Bed Resolve 2015-032016-01-16 Rubén Mobility/Tr deficit: Mobility/T d 0-21 16:00:00 Que ansfer sit/stand ransfer 13:45: [id number] 00 Endo/Nito knowledge/s Endo/Nito Resolve 2015-032016-01-14 [place] kill d 0-24 09:45:00 Greg deficit: pt 09:45: [id number] 00 Endo/Nito knowledge/s Endo/Nito Resolve 2015-032016-01-14 [facility] kill d 0-24 09:45:00 [place] deficit: cg 09:45: [id number] 00 Endo/Nito knowledge/s Endo/Nito Resolve 2015-032016-01-14 [facility] kill d 0-24 09:45:00 Greg deficit 09:45: [id number] hypo/hyperg 00 lycemia: pt Endo/Nito knowledge/s Endo/Nito Resolve 2015-032016-01-14 [facility] kill d 0-24 09:45:00 Greg deficit 09:45: [id number] hypo/hyperg 00 lycemia: cg Elimination diarrhea Eliminatio Resolve 2015-032016-03-03 [facility] n d 0 10:10:00 [place] 09:45: [id number] 00 Neuro depressive Neuro/Emot Resolve 2015-032016-01-14 [facility] feelings ion d 0 09:45:00 [place] present 09:45: [id number] 00 Safety sanitation Safety Resolve 2015-032016-01-14 [facility] hazards d 0 09:45:00 [place] present 09:45: [id number] 00 Safety risk for Safety Resolve 2015-032016-01-21 Sonia hospitaliza d 0 09:30:00 [place] tion 13:45: RN 00 Bed transfer PT/OT: Bed Resolve 2015-032016-01-17 Rubén Mobility/Tr deficit: Mobility/T d 0 14:00:00 Que ansfer sit/stand ransfer 14:00: [id number] 00 Gait/Locomo gait PT/OT: Resolve 2015-032016-01-17 Rubén tion assistive Gait/Locom d 0 14:00:00 Que problems device otion 14:00: [id number] present 00 Gait/Locomo knowledge/s PT/OT: Resolve 2015-032016-01-17 Rubén tion kill Gait/Locom d 0 14:00:00 Que problems deficit: pt otion 14:00: [id number] 00 Gait/Locomo gait PT/OT: Resolve 2015-032016-01-17 Rubén tion deficit Gait/Locom d 0 14:00:00 Que problems otion 14:00: [id number] 00 Endo/Nito glucose Endo/Nito Resolve 2015-032016-01-21 [facility] tolerance d 0 09:30:00 Greg problem 09:30: [id number] 00 Endo/Nito knowledge/s Endo/Nito Resolve 2015-032016-01-21 [facility] kill d 0-31 09:30:00 [place] deficit: pt 09:30: [id number] 00 Endo/Nito knowledge/s Endo/Nito Resolve 2015-032016-01-21 [facility] kill d 0-31 09:30:00 Greg deficit 09:30: [id number] hypo/hyperg 00 lycemia: pt Endo/Nito knowledge/s Endo/Nito Resolve 2015-032016-01-21 [facility] kill d 0- 09:30:00 [place] deficit 09:30: [id number] hypo/hyperg 00 lycemia: cg Neuro memory Neuro/Emot Resolve 2015-032016-02-04 [facility] deficit ion d 0- 09:45:00 Greg needing 09:30: [id number] supervision 00 Neuro impaired Neuro/Emot Resolve 2015-032016-01-21 [facility] decision-ma ion d 0- 09:30:00 [place] marcelle 09:30: [id number] 00 Safety structural Safety Resolve 2015-032016-01-21 [facility] barriers d 0-31 09:30:00 Greg present 09:30: [id number] 00 Safety sanitation Safety Resolve 2015-032016-01-21 [facility] hazards d 0-31 09:30:00 Greg present 09:30: [id number] 00 Safety fall risk Safety Resolve 2015-032016-01-21 [facility] factor d 0-31 09:30:00 Greg present 09:30: [id number] 00 Safety risk for Safety Resolve 2015-032016-02-04 [facility] hospitaliza d 03-23 09:45:00 Que tion 14:30: [id number] 00 Bed bed PT/OT: Bed Resolve 2015-032016-01-22 Rubén Mobility/Tr mobility Mobility/T d 03-23 14:30:00 Que ansfer deficit ransfer 14:30: [id number] 00 Bed transfer PT/OT: Bed Resolve 2015-032016-01-22 Rubén Mobility/Tr deficit: Mobility/T d 03-23 14:30:00 Que poefer sit/stand ransfer 14:30: [id number] 00 Gait/Locomo gait PT/OT: Resolve 2015-032016-01-22 Rubén tion assistive Gait/Locom d 03-23 14:30:00 Que problems device otion 14:30: [id number] present 00 Gait/Locomo knowledge/s PT/OT: Resolve 2015-032016-01-22 Rubén tion kill Gait/Locom d 03-23 14:30:00 Que problems deficit: pt otion 14:30: [id number] 00 Gait/Locomo gait PT/OT: Resolve 2015-032016-01-22 Rubén tion deficit Gait/Locom d 03-23 14:30:00 Que problems otion 14:30: [id number] 00 Bed transfer PT/OT: Bed Resolve 2015-032016-01-28 Rubén Mobility/Tr deficit: Mobility/T d 03-25 14:15:00 Que ansfer sit/stand ransfer 14:15: [id number] 00 Gait/Locomo gait PT/OT: Resolve 2015-032016-01-28 Rubén tion assistive Gait/Locom d 03-25 14:15:00 Que problems device otion 14:15: [id number] present 00 Gait/Locomo knowledge/s PT/OT: Resolve 2015-032016-01-28 Rubén tion kill Gait/Locom d 03-25 14:15:00 Que problems deficit: pt otion 14:15: [id number] 00 Gait/Locomo gait PT/OT: Resolve 2015-032016-01-28 Rubén tion deficit Gait/Locom d 03-25 14:15:00 Que problems otion 14:15: [id number] 00 Bed transfer PT/OT: Bed Resolve 2015-032016-04-07 Rubén Mobility/Tr deficit: Mobility/T d 04-01 11:15:00 Que ansfer sit/stand ransfer 13:45: [id number] 00 Gait/Locomo gait PT/OT: Resolve 2015-032016-02-15 Rubén tion assistive Gait/Locom d 04-01 09:45:00 Qeu problems device otion 13:45: [id number] present 00 Gait/Locomo gait PT/OT: Resolve 2015-032016-02-15 Rubén tion deficit Gait/Locom d 04-01 09:45:00 Que problems otion 13:45: [id number] 00 Elimination urinary Eliminatio Resolve 2015-032016-02-04 Sonia [...] Resolve 2015-032016-02-04 [facility] tolerance d 04-05 09:45:00 [place] problem 09:45: [id number] 00 Endo/Nito knowledge/s Endo/Nito Resolve 2015-032016-02-04 [facility] kill d 04-05 09:45:00 [place] deficit: pt 09:45: [id number] 00 Endo/Nito knowledge/s Endo/Into Resolve 2015-032016-02-04 [facility] kill d 04-05 09:45:00 [place] deficit: cg 09:45: [id number] 00 Elimination recurring Eliminatio Resolve 2015-032016-04-07 [facility] UTI n d 04-05 10:40:00 Greg 09:45: [id number] 00 Elimination urinary Eliminatio Resolve 2015-032016-02-04 [facility] frequency n d 04-05 09:45:00 Greg 09:45: [id number] 00 Neuro impaired Neuro/Emot Resolve 2015-032016-02-18 [facility] decision-ma ion d 04-05 09:30:00 [place] marcelle 09:45: [id number] 00 Safety structural Safety Resolve 2015-032016-02-04 [facility] barriers d 04-05 09:45:00 [place] present 09:45: [id number] 00 Safety sanitation Safety Resolve 2015-032016-02-04 [facility] hazards d 04-05 09:45:00 [place] present 09:45: [id number] 00 Safety risk for Safety Resolve 2015-032016-02-18 [...] Resolve 2015-032016-02-18 [facility] tolerance d 04-19 09:30:00 [place] problem 09:30: [id number] 00 Endo/Nito knowledge/s Endo/Nito Resolve 2015-032016-02-18 [facility] kill d 04-19 09:30:00 [place] deficit: pt 09:30: [id number] 00 Endo/Nito knowledge/s Endo/Nito Resolve 2015-032016-02-18 [facility] kill d 04-19 09:30:00 Greg deficit: cg 09:30: [id number] 00 Neuro anxiety Neuro/Emot Resolve 2015-032016-02-18 [facility] present ion d 04-19 09:30:00 Greg 09:30: [id number] 00 Neuro depressive Neuro/Emot Resolve 2015-032016-02-18 [facility] feelings ion d 04-19 09:30:00 Greg present 09:30: [id number] 00 Safety structural Safety Resolve 2015-032016-02-18 [facility] barriers d 04-19 09:30:00 Greg present 09:30: [id number] 00 Safety sanitation Safety Resolve 2015-032016-02-18 [facility] hazards d 04-19 09:30:00 [place] present 09:30: [id number] 00 Safety fall risk Safety Resolve 2015-032016-02-18 [facility] factor d 04-19 09:30:00 Greg present 09:30: [id number] 00 Elimination urinary Eliminatio Resolve 2015-032016-03-03 Sonia [...] 2015-032016-12-09 [facility] n ular d 05-04 12:18:00 [place] 10:10: [id number] 00 Endo/Nito glucose Endo/Nito Resolve 2015-032016-05-19 [facility] tolerance d 05-04 09:45:00 Greg problem 10:10: [id number] 00 Endo/Nito knowledge/s Endo/Nito Resolve 2015-032016-05-19 [facility] kill d 05-04 09:45:00 Greg deficit: pt 10:10: [id number] 00 Endo/Nito knowledge/s Endo/Nito Resolve 2015-032016-05-19 [facility] kill d 05-04 09:45:00 Greg deficit: cg 10:10: [id number] 00 Endo/Nito knowledge/s Endo/Nito Resolve 2015-032016-05-19 [facility] kill d 2-12 09:45:00 [place] deficit 10:10: [id number] hypo/hyperg 00 lycemia: pt Endo/Nito knowledge/s Endo/Nito Resolve 2015-032016-05-19 [facility] kill d 2-12 09:45:00 Greg deficit 10:10: [id number] hypo/hyperg 00 lycemia: cg Nutrition knowledge/s Nutrition Resolve 2015-032016-03-25 [facility] kill d 2- 12:10:00 [place] deficit: pt 10:10: [id number] 00 Nutrition knowledge/s Nutrition Resolve 2015-032016-03-25 [facility] kill d 2- 12:10:00 Greg deficit: cg 10:10: [id number] 00 Elimination urinary Eliminatio Resolve 2015-032016-03-03 [facility] urgency n d 2- 10:10:00 [place] 10:10: [id number] 00 Elimination urinary Eliminatio Resolve 2015-032016-03-03 [facility] frequency n d 05-04 10:10:00 Greg 10:10: [id number] 00 Safety risk for Safety Resolve 2015-032016-03-18 [...] ion d 05-19 09:45:00 Greg present 09:00: [id number] 00 Neuro impaired Neuro/Emot Resolve 2015-032016-06-16 [place] decision-ma ion d 05-19 10:31:00 [place] marcelle 09:00: [id number] 00 Neuro seizures Neuro/Emot Resolve 2015-032016-03-18 [place] ion d 05-19 09:00:00 [place] 09:00: [id number] 00 Safety structural Safety Resolve 2015-032016-03-18 [place] barriers d 05-19 09:00:00 [place] present 09:00: [id number] 00 Safety sanitation Safety Resolve 2015-032016-03-18 [place] hazards d 05-19 09:00:00 [place] present 09:00: [id number] 00 Safety fall risk Safety Resolve 2015-032016-03-18 [place] factor d 05-19 09:00:00 [place] present 09:00: [id number] 00 Respiratory oxygen Respirator Unknown Ashley treatments y 1-10 [place] in home 14:00: [id number] 00 Respiratory dyspnea Respirator Unknown Ashley present y 1-10 [place]innie 14:00: [id number] 00 Respiratory lung sounds Respirator Resolve 2016-04-07 Ashley deficit y d 1-10 10:40:00 [place]innie 14:00: [id number] 00 Elimination bowel Eliminatio Resolve 2016-07-28 Ashley incontinenc n d 1-10 10:09:00 Vinnie e 14:00: [id number] 00 Safety can be left Safety Resolve 2016-05-19 Ashley alone for d 1-10 09:45:00 Vinnie only short 14:00: [id number] 00 Respiratory CPAP Respirator Unknown [place] treatments y 1-16 [place] in home 10:40: [id number] 00 Nutrition nutritional Nutrition Resolve 2016-05-19 Cherrise restriction d 1-16 09:45:00 Greg s 10:40: [id number] 00 Nutrition knowledge/s Nutrition Resolve 2016-05-19 Cherrise kill d - 09:45:00 Greg deficit: pt 10:40: [id number] 00 Nutrition knowledge/s Nutrition Resolve 2016-05-19 Cherrise kill d 1-16 09:45:00 [place] deficit: cg 10:40: [id number] 00 Safety structural Safety Resolve 2016-04-07 Cherrise barriers d 1-16 10:40:00 [place] present 10:40: [id number] 00 Safety sanitation Safety Resolve 2016-04-07 Cherrise hazards d -16 10:40:00 Greg present 10:40: [id number] 00 Safety fall risk Safety Resolve 2016-04-07 Cherrise factor d - 11:15:00 Greg present 10:40: [id number] 00 Safety risk for Safety Resolve 2016-04-07 [facility] hospitaliza d 16 11:15:00 Greg tion 10:40: [id number] 00 Bed transfer PT/OT: Bed Resolve 2016-04-07 Rubén Mobility/Tr deficit: Mobility/T d 16 11:15:00 Que mack toilet/comm ransfer 11:15: [id number] ode 00 Bed transfer PT/OT: Bed Resolve 2016-04-07 Rubén Mobility/Tr deficit: Mobility/T d 16 11:15:00 Que mack shower/tub ransfer 11:15: [id number] 00 Bed transfer PT/OT: Bed Resolve 2016-04-07 Rubén Mobility/Tr deficit: Mobility/T d 04-07 11:15:00 Que mack vehicle ransfer 11:15: [id number] 00 Bed bed PT/OT: Bed Resolve 2016-04-07 Rubén Mobility/Tr mobility Mobility/T d 16 11:15:00 Que ansfer deficit ransfer 11:15: [id number] 00 Gait/Locomo knowledge/s PT/OT: Resolve 2016-04-07 Rubén tion kill Gait/Locom d 16 11:15:00 Que problems deficit: pt otion 11:15: [id number] 00 Gait/Locomo gait PT/OT: Resolve 2016-04-07 Rubén tion deficit Gait/Locom d 04-07 11:15:00 Uqe problems otion 11:15: [id number] 00 Gait/Locomo gait PT/OT: Resolve 2016-04-15 Rubén tion assistive Gait/Locom d 04-07 13:45:00 Que problems device otion 11:15: [id number] present 00 Respiratory dyspnea Respirator Unknown Ashley present y 04-15 Vinnie 11:00: [id number] 00 Respiratory oxygen Respirator Unknown Ashley treatments y 04-15 Vinnie in home 11:00: [id number] 00 Integument skin Integument Resolve 2016-12-09 Ashley integrity d 04-15 12:18:00 Vinnie risk 11:00: [id number] 00 Elimination urinary Eliminatio Resolve 2016-05-19 Ashley incontinenc n d 04-15 09:45:00 Vinnie e 11:00: [id number] 00 Safety risk for Safety Resolve 2016-04-21 [facility] hospitaliza d 04-15 09:30:00 Que tion 13:45: [id number] 00 Gait/Locomo knowledge/s PT/OT: Resolve 2016-04-18 Rubén tion kill Gait/Locom d 04-15 16:00:00 Que problems deficit: pt otion 13:45: [id number] 00 Gait/Locomo gait PT/OT: Resolve 2016-04-15 Rubén tion deficit Gait/Locom d 04-15 13:45:00 Que problems otion 13:45: [id number] 00 Gait/Locomo gait PT/OT: Resolve 2016-04-18 Rubén tion assistive Gait/Locom d 04-18 16:00:00 Que problems device otion 16:00: [id number] present 00 Gait/Locomo gait PT/OT: Resolve 2016-04-18 Rubén tion deficit Gait/Locom d 04-18 16:00:00 Que problems otion 16:00: [id number] 00 Respiratory CPAP Respirator Unknown Cherrise treatments y 04-21 [place] in home 09:30: [id number] 00 Elimination urinary Eliminatio Resolve 2016-05-19 Cherrise frequency n d 04-21 09:45:00 [place] 09:30: [id number] 00 Elimination recurring Eliminatio Resolve 2016-05-19 Cherrise UTI n d 04-21 09:45:00 [place] 09:30: [id number] 00 Elimination knowledge/s Eliminatio Resolve 2016-04-21 Cherrise kill n d 04-21 09:30:00 Greg deficit: pt 09:30: [id number] 00 Elimination knowledge/s Eliminatio Resolve 2016-04-21 Cherrise kill n d 04-21 09:30:00 Greg deficit: cg 09:30: [id number] 00 Safety sanitation Safety Resolve 2016-04-21 Cherrise hazards d 04-21 09:30:00 Greg present 09:30: [id number] 00 Safety fall risk Safety Resolve 2016-04-21 Cherrise factor d 04-21 09:30:00 Greg present 09:30: [id number] 00 Safety risk for Safety Resolve 2016-05-05 [facility] hospitaliza d 04-22 10:00:00 Que tion 13:45: [id number] 00 Gait/Locomo gait PT/OT: Resolve 2016-04-22 Rubén tion assistive Gait/Locom d 04-22 13:45:00 Que problems device otion 13:45: [id number] present 00 Gait/Locomo knowledge/s PT/OT: Resolve 2016-04-29 Rubén tion kill Gait/Locom d 04-22 16:00:00 Que problems deficit: pt otion 13:45: [id number] 00 Gait/Locomo gait PT/OT: Resolve 2016-04-22 Rubén tion deficit Gait/Locom d 04-22 13:45:00 Que problems otion 13:45: [id number] 00 Gait/Locomo gait PT/OT: Resolve 2016-04-29 Rubén tion assistive Gait/Locom d 04-25 16:00:00 Que problems device otion 16:00: [id number] present 00 Gait/Locomo gait PT/OT: Resolve 2016-04-29 Rubén tion deficit Gait/Locom d 2-03 16:00:00 Que problems otion 16:00: [id number] 00 Gait/Locomo gait PT/OT: Resolve 2016-05-02 Rubén tion assistive Gait/Locom d 2-10 16:40:00 Que problems device otion 16:40: [id number] present 00 Gait/Locomo gait PT/OT: Resolve 2016-05-02 Rubén tion deficit Gait/Locom d 2-10 16:40:00 Que problems otion 16:40: [id number] 00 Safety sanitation Safety Resolve 2016-06-16 Cherrise hazards d 2-13 10:31:00 Greg present 10:00: [id number] 00 Safety fall risk Safety Resolve 2016-05-05 Cherrise factor d 2-13 10:00:00 Greg present 10:00: [id number] 00 Safety risk for Safety Unknown Rub[facility] hospital[facility] 2- Que tion 17:00: [id number] 00 Gait/Locomo gait PT/OT: Resolve 2016-05-05 Rubén tion assistive Gait/Locom d 2-13 17:00:00 Que problems device otion 17:00: [id number] present 00 Gait/Locomo gait PT/OT: Resolve 2016-05-05 Rubén tion deficit Gait/Locom d 2-13 17:00:00 Que problems otion 17:00: [id number] 00 Respiratory nebulizer Respirator Resolve 2016-12-09 Ashley treatment y d 2- 12:18:00 Vinnie in home 10:00: [id number] 00 Safety risk for Safety Resolve 2016-05-19 [facility] hospitaliza d 2-21 09:45:00 Que tion 16:00: [id number] 00 Gait/Locomo gait PT/OT: Resolve 2016-05-13 Rubén tion assistive Gait/Locom d 2-21 16:00:00 Que problems device otion 16:00: [id number] present 00 Gait/Locomo gait PT/OT: Resolve 2016-05-13 Rubén tion deficit Gait/Locom d 2-21 16:00:00 Que problems otion 16:00: [id number] 00 Gait/Locomo gait PT/OT: Resolve 2016-05-15 Rubén tion assistive Gait/Locom d 05-15 13:00:00 Que problems device otion 13:00: [id number] present 00 Gait/Locomo gait PT/OT: Resolve 2016-05-15 Rubén tion deficit Gait/Locom d 05-15 13:00:00 Que problems otion 13:00: [id number] 00 Safety fall risk Safety Resolve 2016-05-19 Cherrise factor d 05-19 09:45:00 [place] present 09:45: [id number] 00 Gait/Locomo gait PT/OT: Resolve 2016-05-19 Rubén tion assistive Gait/Locom d 05-19 14:30:00 Que problems device otion 14:30: [id number] present 00 Gait/Locomo gait PT/OT: Resolve 2016-05-19 Rubén tion deficit Gait/Locom d 05-19 14:30:00 Que problems otion 14:30: [id number] 00 Test/Treatm tests Test/Injec Active Ashley ent ordered t/Sebastien 05-21 Vinnie [id number] Safety risk for Safety Resolve 2016-06-16 [facility] hospitaliza d 05-21 10:31:00 Quinn tion 14:00: [id number] 00 Gait/Locomo gait PT/OT: Resolve 2016-05-29 Rubén tion assistive Gait/Locom d 05-22 13:30:00 Que problems device otion 12:35: [id number] present 00 Gait/Locomo gait PT/OT: Resolve 2016-05-29 Rubén tion deficit Gait/Locom d 05-22 13:30:00 Que problems otion 12:35: [id number] 00 Pain frequent Pain Mgmt Unknown Ashley pain 05-27 Vinnie 10:30: [id number] 00 Nutrition nutritional Nutrition Resolve 2016-07-14 Ashley restriction d 05-27 09:45:00 Vinnie williamson 10:30: [id number] 00 Elimination urinary Eliminatio Resolve 2016-12-09 Ashley incontinenc n d 05-27 12:18:00 Vinnie gaffney 10:30: [id number] 00 Elimination urinary Eliminatio Resolve 2016-12-09 Ashley frequency n d 05-27 12:18:00 Vinnie 10:30: [id number] 00 Endo/Nito glucose Endo/Nito Resolve 2016-12-09 Cherrise tolerance d 3-13 12:18:00 Greg problem 11:10: [id number] 00 Endo/Nito knowledge/s Endo/Nito Resolve 2016-12-09 Cherrise kill d 3- 12:18:00 [place] deficit: pt 11:10: [id number] 00 Elimination constipatio Eliminatio Resolve 2016-12-09 Cherrise n n d 3 12:18:00 Greg 11:10: [id number] 00 Safety fall risk Safety Resolve 2016-06-16 Cherrise factor d 3-13 10:31:00 Greg present 11:10: [id number] 00 Gait/Locomo gait PT/OT: Resolve 2016-06-05 Rubén tion assistive Gait/Locom d 3-13 13:30:00 Que problems device otion 14:45: [id number] present 00 Gait/Locomo gait PT/OT: Resolve 2016-06-05 Rubén tion deficit Gait/Locom d 3-13 13:30:00 Que problems otion 14:45: [id number] 00 Gait/Locomo gait PT/OT: Resolve 2016-06-12 Rubén tion assistive Gait/Locom d 3-20 15:30:00 Que problems device otion 15:30: [id number] present 00 Gait/Locomo gait PT/OT: Resolve 2016-06-12 Rubén tion deficit Gait/Locom d 3-20 15:30:00 Que problems otion 15:30: [id number] 00 Endo/Nito knowledge/s Endo/Nito Resolve 2016-12-09 Cherrise kill d 3 12:18:00 Greg deficit: cg 10:31: [id number] 00 Nutrition knowledge/s Nutrition Resolve 2016-07-14 Cherrise kill d 06-16 09:45:00 [place] deficit: pt 10:31: [id number] 00 Nutrition knowledge/s Nutrition Resolve 2016-07-14 Cherrise kill d 06-16 09:45:00 [place] deficit: cg 10:31: [id number] 00 Elimination urinary Eliminatio Resolve 2016-12-09 Cherrise urgency n d 06-16 12:18:00 [place] 10:31: [id number] 00 Elimination diarrhea Eliminatio Resolve 2016-12-09 Cherrise n d 06-16 12:18:00 Greg 10:31: [id number] 00 Neuro depressive Neuro/Emot Resolve 2016-07-14 Cherrise feelings ion d 06-16 09:45:00 [place] present 10:31: [id number] 00 Safety can be left Safety Resolve 2016-06-16 Cherrise alone for d 06-16 10:31:00 Greg only short 10:31: [id number] periods 00 Musculoskel knowledge/s Musculoske Resolve 2016-07-14 Cherrise etal kill letal d 06-16 09:45:00 Greg deficit: cg 10:31: [id number] 00 Musculoskel knowledge/s Musculoske Resolve 2016-07-14 Cherrise etal kill letal d 06-16 09:45:00 [place] deficit: pt 10:31: [id number] 00 Safety risk for Safety Unknown Rubén hospitaliza 06-16 Que tion 14:30: [id number] 00 Gait/Locomo gait PT/OT: Resolve 2016-06-18 Rubén tion assistive Gait/Locom d 06-16 16:15:00 Que problems device otion 14:30: [id number] present 00 Gait/Locomo gait PT/OT: Resolve 2016-06-18 Rubén tion deficit Gait/Locom d 06-16 16:15:00 Que problems otion 14:30: [id number] 00 Safety can be left Safety Resolve 2016-11-10 Ashley adam for d 06-23 13:50:00 Vinnie larios nai 09:00: [id number] periods 00 Gait/Locomo gait PT/OT: Resolve 2016-07-28 Rubén tion assistive Gait/Locom d 06-23 16:40:00 Que problems device otion 16:50: [id number] present 00 Gait/Locomo gait PT/OT: Resolve 2016-07-28 Rubén tion deficit Gait/Locom d 06-23 16:40:00 Que problems otion 16:50: [id number] 00 Neuro impaired Neuro/Emot Resolve 2017-03-24 Cherrise decision-ma ion d 06-30 14:32:00 [place] marcelle 09:45: [id number] 00 Neuro seizures Neuro/Emot Resolve 2016-08-11 Geni ion d 06-30 10:15:00 Greg 09:45: [id number] 00 Safety fall risk Safety Resolve 2016-07-14 Cherrise factor d 06-30 09:45:00 [place] present 09:45: [id number] 00 Safety risk for Safety Resolve 2016-07-14 [facility] hospital[facility] d 06-30 09:45:00 [place] tion 09:45: [id number] 00 Medication oral med Meds Unknown Estelita assistance 07-08 Ulisses required 09:05: [id number] 00 Medication injectable Meds Unknown Estelita med 07-08 Ulisses assistance 09:05: [id number] required 00 Safety risk for Safety Resolve 2016-08-11 Rub[facility] hospitaliza d 07-15 10:15:00 Que tion 13:40: [id number] 00 Medication oral med Meds Unknown Estelita assistance 07-21 Ulisses required 08:48: [id number] 00 Medication injectable Meds Unknown Estelita med 07-21 Ulisses assistance 08:48: [id number] required 00 Musculoskel transfer Musculoske Resolve 2016-10-27 Estelita etal assistance letkatie d 07-21 09:55:00 Ulisses required 08:48: [id number] 00 Musculoskel knowledge/s Musculoske Resolve 2016-08-11 Estelita etal kill letal d 07-21 10:15:00 Ulisses deficit: pt 08:48: [id number] 00 Musculoskel knowledge/s Musculoske Resolve 2016-08-11 Estelita etal kill letal d 07-21 10:15:00 Ulisses deficit: cg 08:48: [id number] 00 Musculoskel requires Musculoske Resolve 2016-10-27 Estelita etal human letal d 07-21 09:55:00 Ulisses assist to 08:48: [id number] leave home 00 Activity ADL Activity Resolve 2016-09-15 Estelita assistance d 07-28 09:00:00 Ulisses required 10:09: [id number] 00 Safety fall risk Safety Resolve 2016-08-11 Estelita factor d 07-28 10:15:00 Ulisses present 10:09: [id number] 00 Gait/Locomo gait PT/OT: Resolve 2016-07-30 Rubén tion assistive Gait/Locom d -10 15:30:00 Que problems device otion 15:30: [id number] present 00 Gait/Locomo gait PT/OT: Resolve 2016-07-30 Rubén tion deficit Gait/Locom d -10 15:30:00 Que problems otion 15:30: [id number] 00 Elimination bowel Eliminatio Resolve 2016-12-09 Estelita incontinenc n d 08-04 12:18:00 Ulisses e 09:00: [id number] 00 Neuro depressive Neuro/Emot Resolve 2017-03-24 Cherrise feelings ion d 08-11 14:32:00 Greg present 10:15: [id number] 00 Safety cannot be Safety Resolve 2016-12-09 Ashley left alone d 08-13 12:18:00 Vinnie 09:00: [id number] 00 Safety fall risk Safety Resolve 2016-11-10 Ashley factor d 08-13 13:50:00 Vinnie present 09:00: [id number] 00 Safety risk for Safety Resolve 2016-11-10 Ashley meza d 08-13 13:50:00 Vinnie tion 09:00: [id number] 00 Endo/Nito diabetic Endo/Nito Resolve 2016-12-23 Estelita foot care d 08-19 13:35:00 Ulisses 16:15: [id number] 00 Elimination UTI within Eliminatio Resolve 2016-09-22 Estelita past 14 n d 08-19 12:30:00 Ulisses days 16:15: [id number] 00 Neuro confusion Neuro/Emot Resolve 2017-03-24 Estelita present ion d 08-19 14:32:00 Ulisses 16:15: [id number] 00 Neuro anxiety Neuro/Emot Resolve 2017-03-24 Estelita present ion d 08-19 14:32:00 Ulisses 16:15: [id number] 00 Medication oral med Meds Unknown Estelita assistance 08-19 Ulisses required 16:15: [id number] 00 Medication injectable Meds Unknown Estelita med 08-19 Ulisses assistance 16:15: [id number] required 00 Medication oral med Meds Unknown Maryse assistance 08-19 Regeczi required 16:15: [id number] 00 Musculoskel knowledge/s Musculoske Resolve 2016-09-15 Estelita etal kill letal d 08-19 09:00:00 Ulisses deficit: pt 16:15: [id number] 00 Respiratory lung sounds Respirator Resolve 2016-11-03 Estelita deficit y d 09-01 09:58:00 Ulisses 11:23: [id number] 00 Neuro seizures Neuro/Emot Resolve 2016-12-09 Estelita ion d 09-08 12:18:00 Ulissse 09:30: [id number] 00 Activity ADL Activity Unknown Estelita assistance 09-29 Ulisses required 10:30: [id number] 00 Cardio chest pain Cardiovasc Resolve 2016-12-09 Estelita ular d 10-14 12:18:00 Ulisses 09:30: [id number] 00 Safety can be left Safety Unknown Estelita alone for 11-10 Ulisses only short 13:50: [id number] periods 00 Safety risk for Safety [facility] Ulisses tion 10:25: [id number] 00 Safety can be left Safety Resolve 2016-12-09 Estelita alone for d 11-25 12:18:00 Ulisses only short 10:03: [id number] periods 00 Safety fall risk Safety Resolve 2016-12-09 Estelita factor d 11-25 12:18:00 Ulisses present 10:03: [id number] 00 Activity ADL Activity Resolve 2017-03-10 Estelita assistance d 12-12 14:00:00 Ulisses required 13:07: [id number] 00 Safety risk for Safety Resolve 2016-12-16 [facility] d 12-12 10:39:00 Ulisses tion 13:07: [id number] 00 Safety cannot be Safety Resolve 2017-01-27 Estelita left alone d 12-12 13:44:00 Ulisses 13:07: [id number] 00 Activity ADL Activity Unknown Estelita assistance 12-12 Ulisses required 13:43: [id number] 00 Safety risk for Safety Unknown [facility]12[facility] 10:39:[facility] Ulisses tion 13:43: [id number] 00 Elimination urinary Eliminatio Resolve 2016-12-23 Estelita incontinenc n d 12-16 13:35:00 Ulisses e 10:39: [id number] 00 Elimination bowel Eliminatio Active Estelita incontinenc n 12-16 Ulisses e 10:39: [id number] 00 Elimination constipatio Eliminatio Active Estelita n n 12-16 Ulisses 10:39: [id number] 00 Elimination diarrhea Eliminatio Active Estelita n 9-26 Ulisses 10:39: [id number] 00 Elimination urinary Eliminatio Resolve 2016-032017-03-10 Estelita incontinenc n d 0-10 14:00:00 Ulisses e 13:16: [id number] 00 Safety risk for Safety Resolve 2016-032017-01-27 Estelita hospitaliza d 0-10 13:44:00 Ulisses tion 13:16: [id number] 00 Safety can be left Safety Resolve 2016-032017-01-27 Estelita alone for d 0-10 13:44:00 Ulisses only short 13:16: [id number] periods 00 Cardio chest pain Cardiovasc Active 2016-03 Divina ular 0-17 Schilling 17:00: [id number] 00 Cardio edema Cardiovasc Resolve 2016-032017-02-10 Divina ular d 0-17 12:43:00 Schilling 17:00: [id number] 00 Cardio hypertensio Cardiovasc Active 2016-03 Divina n ular 0-17 Schilling 17:00: [id number] 00 Respiratory dyspnea Respirator Resolve 2016-032017-02-10 Divina present y d 0-17 12:43:00 Schilling 17:00: [id number] 00 Respiratory oxygen Respirator Active 2016-03 Divina treatments y 0-17 Schilling in home 17:00: [id number] 00 Respiratory lung sounds Respirator Resolve 2016-032017-02-10 Divina deficit y d 0-17 12:43:00 Schilling 17:00: [id number] 00 Respiratory CPAP Respirator Resolve 2016-032018-02-16 Divina treatments y d 0-17 09:41:00 Schilling in home 17:00: [id number] 00 Respiratory nebulizer Respirator Resolve 2016-032018-02-16 Divina treatment y d 0-17 09:41:00 Schilling in home 17:00: [id number] 00 Respiratory knowledge/s Respirator Resolve 2016-032017-01-27 Divina kill y d 0-17 13:44:00 Schilling deficit: pt 17:00: [id number] 00 Safety fall risk Safety Resolve 2016-032017-01-27 Estelita factor d - 13:44:00 Ulisses present 13:44: [id number] 00 Safety risk for Safety Resolve 2016-032017-03-03 Estelita hospitaliza d 1-08 15:22:00 Ulisses tion 13:03: [id number] 00 Safety can be left Safety Resolve 2016-032017-03-03 Estelita alone for d 1-14 15:22:00 Ulisses only short 13:51: [id number] periods 00 Respiratory lung sounds Respirator Resolve 2016-032017-03-10 Estelita deficit y d 1-28 14:00:00 Ulisses 11:10: [id number] 00 Gait/Locomo gait PT/OT: Resolve 2016-032017-09-10 Rubén tion assistive Gait/Locom d 2-14 11:30:00 Que problems device otion 13:15: [id number] present 00 Safety risk for Safety Resolve 2016-032017-03-10 Rubén hospitaliza d 2-18 14:00:00 Que tion 14:15: [id number] 00 Gait/Locomo gait PT/OT: Resolve 2016-032017-09-10 Rubén tion deficit Gait/Locom d 2-18 11:30:00 Que problems otion 14:15: [id number] 00 Sensory impaired Sensory Resolve 2016-032017-03-24 Esteilta hearing d 2- 14:32:00 Ulisses 14:00: [id number] 00 Safety can be left Safety Resolve 2016-032017-03-10 Estleita alone for d 2- 14:00:00 Ulisses only short 14:00: [id number] periods 00 Safety risk for Safety Resolve 2016-032017-03-18 Estelita hospitaliza d 2- 14:00:00 Ulisses tion 10:28: [id number] 00 Respiratory lung sounds Respirator Resolve 2016-032017-03-31 Estelita deficit y d - 16:04:00 Ulisses 14:00: [id number] 00 Elimination urinary Eliminatio Resolve 2016-032017-03-24 Estelita incontinenc n d 05-19 14:32:00 Ulisses e 14:00: [id number] 00 Safety can be left Safety Resolve 2016-032017-03-31 Estelita alone for d 2- 16:04:00 Ulisses only short 14:00: [id number] periods 00 Respiratory dyspnea Respirator Resolve 2017-11-24 Estelita present y d 03-24 14:00:00 Ulisses 14:32: [id number] 00 Nutrition knowledge/s Nutrition Resolve 2017-03-31 Estelita kill d 03-24 16:04:00 Ulisses deficit: pt 14:32: [id number] 00 Nutrition knowledge/s Nutrition Resolve 2017-03-31 Estelita kill d 03-24 16:04:00 Ulisses deficit: cg 14:32: [id number] 00 Activity ADL Activity Unknown Estelita assistance 03-24 Ulisses required 14:32: [id number] 00 Safety fall risk Safety Resolve 2017-03-24 Estelita factor d 03-24 14:32:00 Ulisses present 14:32: [id number] 00 Safety risk for Safety Resolve 2017-03-24 Estelita hospitaliza d 03-24 14:32:00 Ulisses tion 14:32: [id number] 00 Medication injectable Meds Unknown Estelita med 03-24 Ulisses assistance 14:32: [id number] required 00 Nutrition nutritional Nutrition Resolve 2017-03-31 Estelita restriction d 03-26 16:04:00 Ulisses s 12:16: [id number] 00 Safety risk for Safety Resolve 2017-03-31 Estelita hospitaliza d 03-26 16:04:00 Ulisses tion 12:16: [id number] 00 Bed transfer PT/OT: Bed Resolve 2017-09-10 Rubén Mobility/Tr deficit: Mobility/T d - 11:30:00 Que mack sit/stand ransfer 14:00: [id number] 00 Bed transfer PT/OT: Bed Resolve 2017-09-10 Rubén Mobility/Tr deficit: Mobility/T d 03-26 11:30:00 Que mack standing ransfer 14:00: [id number] pivot 00 Bed transfer PT/OT: Bed Resolve 2017-09-10 Rubén Mobility/Tr deficit: Mobility/T d - 11:30:00 Que mack toilet/comm ransfer 14:00: [id number] ode 00 Bed transfer PT/OT: Bed Resolve 2017-09-10 Rubén Mobility/Tr deficit: Mobility/T d 03-26 11:30:00 Que mack shower/tub ransfer 14:00: [id number] 00 Bed transfer PT/OT: Bed Resolve 2017-09-10 Rubén Mobility/Tr deficit: Mobility/T d 03-26 11:30:00 Que mack vehicle ransfer 14:00: [id number] 00 Bed bed PT/OT: Bed Active Rubén Mobility/Tr mobility Mobility/T 03-26 Que mack deficit ransfer 14:00: [id number] 00 Endo/Nito anti-coagul Endo/Nito Resolve 2017-09-22 Estelita ation d 03-31 12:21:00 Ulisses therapy 16:04: [id number] 00 Endo/Nito diabetic Endo/Nito Resolve 2017-03-31 Estelita foot care d 03-31 16:04:00 Ulisses 16:04: [id number] 00 Elimination urinary Eliminatio Resolve 2017-03-31 Estelita incontinenc n d 03-31 16:04:00 Ulisses e 16:04: [id number] 00 Neuro confusion Neuro/Emot Resolve 2017-10-27 Estelita present ion d 03-31 10:31:00 Ulisses 16:04: [id number] 00 Medication oral med Meds Resolve 2017-04-06 Estelita assistance d 03-31 12:56:00 Ulisses required 16:04: [id number] 00 Medication injectable Meds Resolve 2017-04-06 Estelita med d 03-31 12:56:00 Ulisses assistance 16:04: [id number] required 00 Respiratory lung sounds Respirator Resolve 2017-04-06 Estelita deficit y d 04-03 12:56:00 Ulisses 11:44: [id number] 00 Endo/Nito diabetic Endo/Nito Resolve 2017-04-06 Estelita foot care d 1-12 12:56:00 Ulisses 11:44: [id number] 00 Elimination urinary Eliminatio Resolve 2017-04-06 Estelita incontinenc n d - 12:56:00 Ulisses e 11:44: [id number] 00 Musculoskel requires Musculoske Resolve 2017-04-20 Estelita etal human letal d 04-06 09:23:00 Ulisses assist to 12:56: [id number] leave home 00 Musculoskel requires Musculoske Resolve 2017-04-20 Estelita etal special letal d 04-06 09:23:00 Ulisses transportat 12:56: [id number] ion 00 Respiratory lung sounds Respirator Resolve 2017-04-20 Estelita deficit y d 04-13 09:23:00 Ulisses 08:30: [id number] 00 Elimination urinary Eliminatio Resolve 2017-04-28 Estelita incontinenc n d 04-13 12:19:00 Ulisses e 08:30: [id number] 00 Safety risk for Safety Active Estelita hospitaliza 04-13 Ulisses tion 08:30: [id number] 00 Safety can be left Safety Resolve 2017-04-20 Estelita alone for d 04-13 09:23:00 Ulisses only short 08:30: [id number] periods 00 Respiratory lung sounds Respirator Resolve 2017-07-21 Estelita deficit y d 04-28 12:47:00 Ulisses 12:19: [id number] 00 Safety can be left Safety Resolve 2017-05-05 Estelita alone for d 04-28 11:50:00 Ulisses only short 12:19: [id number] periods 00 Respiratory pneumonia Respirator Resolve 2017-07-21 Estelita y d - 12:47:00 Ulisses 11:50: [id number] 00 Endo/Nito diabetic Endo/Nito Resolve 2017-10-27 Estelita foot care d - 10:31:00 Ulisses 11:50: [id number] 00 Elimination urinary Eliminatio Resolve 2017-07-14 Maryse incontinenc n d 2-13 12:22:00 Regeczi e 11:50: [id number] 00 Activity ADL Activity Resolve 2017-12-29 Maryse assistance d 2- 11:16:00 Regeczi required 11:50: [id number] 00 Safety fall risk Safety Resolve 2017-07-14 Estelita factor d 2- 12:22:00 Ulisses present 11:50: [id number] 00 Medication oral med Meds Resolve 2017-07-14 Estelita assistance d 2- 12:22:00 Ulisses required 11:50: [id number] 00 Medication injectable Meds Resolve 2017-07-14 Estelita med d 05-05 12:22:00 Ulisses assistance 11:50: [id number] required 00 Medication potential Meds Resolve 2017-07-14 Estelita clinically d 05-05 12:22:00 Ulisses significant 11:50: [id number] medication 00 issue Musculoskel transfer Musculoske Unknown Estelita etal assistance letal 05-05 Ulisses required 11:50: [id number] 00 Musculoskel requires Musculoske Unknown Estelita etal special letal 2- Ulisses transportat 11:50: [id number] ion 00 Endo/Nito glucose Endo/Nito Resolve 2017-10-27 Estelita tolerance d 2 10:31:00 Ulisses problem 10:40: [id number] 00 Endo/Nito knowledge/s Endo/Nito Resolve 2017-09-29 Estelita kill d 05-12 11:58:00 Ulisses deficit: cg 10:40: [id number] 00 Endo/Nito knowledge/s Endo/Niot Resolve 2017-09-29 Estelita kill d 05-12 11:58:00 Ulisses deficit 10:40: [id number] hypo/hyperg 00 lycemia: cg Safety can be left Safety Resolve 2017-07-21 Estelita alone for d 05-12 12:47:00 Ulisses only short 10:40: [id number] periods 00 Infection s/s of Infection Resolve 2017-12-01 Estelita infection d 2- 10:00:00 Ulisses 14:00: [id number] 00 Musculoskel requires Musculoske Resolve 2017-10-13 Estelita etal human letal d 05-26 10:51:00 Ulisses assist to 13:58: [id number] leave home 00 Musculoskel requires Musculoske Resolve 2017-10-13 Estelita etal special letal d 05-26 10:51:00 Ulisses transportat 13:58: [id number] ion 00 Safety cannot be Safety Resolve 2017-07-21 Estelita left alone d 07-07 12:47:00 Ulisses 12:05: [id number] 00 Safety knowledge/s Safety Resolve 2017-07-14 Estelita kill d 07-14 12:22:00 Ulisses deficit: pt 12:22: [id number] 00 Elimination urinary Eliminatio Resolve 2017-07-21 Estelita incontinenc n d 07-21 12:47:00 Ulisses e 12:47: [id number] 00 Neuro impaired Neuro/Emot Resolve 2017-10-27 Estelita decision-ma ion d 07-21 10:31:00 Ulisses marcelle 12:47: [id number] 00 Activity ADL Activity Unknown Estelita assistance 07-21 Ulisses required 12:47: [id number] 00 Safety fall risk Safety Resolve 2017-12-01 Estelita factor d 07-21 10:00:00 Ulisses present 12:47: [id number] 00 Medication injectable Meds Resolve 2017-08-24 Estelita med d 07-21 12:12:00 Ulisses assistance 12:47: [id number] required 00 Respiratory lung sounds Respirator Resolve 2017-07-28 Estelita deficit y d 07-24 12:01:00 Ulisses 12:50: [id number] 00 Elimination urinary Eliminatio Resolve 2017-09-22 Estelita incontinenc n d 07-24 12:21:00 Ulisses e 12:50: [id number] 00 Safety can be left Safety Resolve 2017-12-29 Estelita alone for d 07-24 11:16:00 Ulisses only short 12:50: [id number] periods 00 Safety cannot be Safety Resolve 2017-12-29 Estelita left alone d 07-28 11:16:00 Ulisses 12:01: [id number] 00 Safety knowledge/s Safety Resolve 2017-12-01 Estelita kill d 07-28 10:00:00 Ulisses deficit: pt 12:01: [id number] 00 Respiratory lung sounds Respirator Resolve 2017-10-27 Estelita deficit y d 07-30 10:31:00 Ulisses 10:57: [id number] 00 Elimination recurring Eliminatio Resolve 2017-09-07 Estelita UTI n d 09-01 09:49:00 Ulisses 10:54: [id number] 00 Musculoskel transfer Musculoske Resolve 2017-10-13 Estelita etal assistance letal d 09-07 10:51:00 Ulisses required 09:49: [id number] 00 Elimination recurring Eliminatio Resolve 2017-09-22 Estelita UTI n d 09-22 12:21:00 Ulisses 12:21: [id number] 00 Neuro depressive Neuro/Emot Resolve 2017-12-29 Estelita feelings ion d 09-22 11:16:00 Ulisses present 12:21: [id number] 00 Medication injectable Meds Resolve 2017-09-29 Estelita med d 09-22 11:58:00 Ulisses assistance 12:21: [id number] required 00 Endo/Nito anti-coagul Endo/Nito Resolve 2017-10-27 Estelita ation d 10-06 10:31:00 Ulisses therapy 11:32: [id number] 00 Safety knowledge/s Safety Resolve 2017-12-01 Estelita kill d 10-06 10:00:00 Ulisses deficit: cg 11:32: [id number] 00 Musculoskel transfer Musculoske Unknown Estelita etal assistance letal 10-20 Ulisses required 12:01: [id number] 00 Musculoskel requires Musculoske Resolve 2017-12-01 Estelita etal human letal d 10-20 10:00:00 Ulisses assist to 12:01: [id number] leave home 00 Neuro anxiety Neuro/Emot Resolve 2017-12-29 Estelita present ion d 10-27 11:16:00 Ulisses 10:31: [id number] 00 Medication oral med Meds Resolve 2017-11-11 Estelita assistance d 10-27 10:50:00 Ulisses required 10:31: [id number] 00 Medication injectable Meds Resolve 2017-11-11 Estelita med d 10-27 10:50:00 Ulisses assistance 10:31: [id number] required 00 Bed transfer PT/OT: Bed Active Rubén Mobility/Tr deficit: Mobility/T 8-10 Que ansfer sit/stand ransfer 10:30: [id number] 00 Bed transfer PT/OT: Bed Active Rubén Mobility/Tr deficit: Mobility/T 8-10 Que ansfer toilet/comm ransfer 10:30: [id number] ode 00 Bed transfer PT/OT: Bed Active Urbén Mobility/Tr deficit: Mobility/T 8-10 Que ansfer shower/tub ransfer 10:30: [id number] 00 Bed transfer PT/OT: Bed Active Rubén Mobility/Tr deficit: Mobility/T 8-10 Que ansfer vehicle ransfer 10:30: [id number] 00 Gait/Locomo gait PT/OT: Active Rubén tion deficit Gait/Locom 8-10 Que problems otion 10:30: [id number] 00 Gait/Locomo gait PT/OT: Active Rubén tion assistive Gait/Locom 8-10 Que problems device otion 10:30: [id number] present 00 Gait/Locomo knowledge/s PT/OT: Active Rubén tion kill Gait/Locom 8-10 Que problems deficit: pt otion 10:30: [id number] 00 Respiratory lung sounds Respirator Resolve 2017-11-18 Estelita deficit y d 11-03 15:52:00 Ulisses 10:41: [id number] 00 Endo/Nito anti-coagul Endo/Nito Resolve 2018-08-03 Estelita ation d 11-03 12:10:00 Ulisses therapy 10:41: [id number] 00 Elimination urinary Eliminatio Resolve 2017-11-18 Estelita incontinenc n d 11-17 15:52:00 Ulisses e 08:59: [id number] 00 Nutrition knowledge/s Nutrition Active Estelita kill 11-18 Ulisses deficit: pt 15:52: [id number] 00 Nutrition knowledge/s Nutrition Active Estelita kill 11-18 Ulisses deficit: cg 15:52: [id number] 00 Nutrition nutritional Nutrition Resolve 2017-11-18 Estelita restriction d 11-18 15:52:00 Ulisses s 15:52: [id number] 00 Neuro impaired Neuro/Emot Resolve 2017-12-29 Estelita decision-ma ion d 11-18 11:16:00 Ulisses marcelle 15:52: [id number] 00 Medication injectable Meds Resolve 2017-11-24 Estelita med d 11-18 14:00:00 Ulisses assistance 15:52: [id number] required 00 Musculoskel transfer Musculoske Resolve 2017-12-01 Estelita etal assistance letal d 11-18 10:00:00 Ulisses required 15:52: [id number] 00 Nutrition nutritional Nutrition Resolve 2017-11-24 Rubén restriction d 11-23 14:00:00 Que s 12:20: [id number] 00 Respiratory lung sounds Respirator Resolve 2017-12-08 Estelita deficit y d 11-24 10:45:00 Ulisses 14:00: [id number] 00 Elimination urinary Eliminatio Resolve 2017-12-29 Estelita incontinenc n d 11-24 11:16:00 Ulisses e 14:00: [id number] 00 Respiratory dyspnea Respirator Resolve 2017-12-15 Estelita present y d 11-27 11:24:00 Ulisses 17:09: [id number] 00 Musculoskel requires Musculoske Resolve 2018-11-10 Estelita etal human letal d 12-08 09:15:00 Ulisses assist to 10:45: [id number] leave home 00 Bed transfer PT/OT: Bed Active Rubén Mobility/Tr deficit: Mobility/T 12-14 Que mack standing ransfer 13:15: [id number] pivot 00 Respiratory lung sounds Respirator Resolve 2018-02-16 Estelita deficit y d 12-15 09:41:00 Ulisses 11:24: [id number] 00 Respiratory dyspnea Respirator Active 2017-03 Estelita present y Ulisses 09:53: [id number] 00 Elimination urinary Eliminatio Resolve 2017-032018-02-16 Estelita incontinenc n d 0-10 09:41:00 Ulisses e 13:18: [id number] 00 Activity ADL Activity Unknown 2017-03 Estelita assistance 0-10 Ulisses required 13:18: [id number] 00 Safety cannot be Safety Resolve 2017-032018-08-03 Estelita left alone d 0-10 12:10:00 Ulisses 13:18: [id number] 00 Neuro anxiety Neuro/Emot Resolve 2017-032018-12-08 Estelita present ion d 0-16 10:56:00 Ulisses 10:49: [id number] 00 Neuro impaired Neuro/Emot Resolve 2017-032018-12-08 Estelita decision-ma ion d 0-16 10:56:00 Ulisses marcelle 10:49: [id number] 00 Nutrition nutritional Nutrition Resolve 2017-032018-02-16 Estelita restriction d 0-30 09:41:00 Ulisses s 10:43: [id number] 00 Safety fall risk Safety Resolve 2017-032018-08-03 Estelita factor d 0-30 12:10:00 Ulisses present 10:43: [id number] 00 Medication injectable Meds Resolve 2017-032018-02-09 Estelita med d 0-30 14:18:00 Ulisses assistance 10:43: [id number] required 00 Respiratory BiPAP Respirator Active 2017-03 Estelita treatments y 04-11 Ulisses in home 14:18: [id number] 00 Medication oral med Meds Resolve 2017-032018-02-09 Estelita assistance d 04-11 14:18:00 Ulisses required 14:18: [id number] 00 IV k/s IV Active 2017-03 Estelita deficit: IV 04-11 Ulisses care - pt 14:18: [id number] 00 Endo/Nito glucose Endo/Nito Active 2017-03 Estelita tolerance 04-18 Ulisses problem 09:41: [id number] 00 Endo/Nito knowledge/s Endo/Nito Active 2017-03 Estelita kill 04-18 Ulisses deficit 09:41: [id number] hypo/hyperg 00 lycemia: cg Respiratory lung sounds Respirator Active 2017-03 Estelita deficit y 04-26 Ulisses 09:51: [id number] 00 Sensory impaired Sensory Resolve 2017-032018-12-08 Estelita verbal d 04-26 10:56:00 Ulisses communicati 09:51: [id number] on 00 Nutrition nutritional Nutrition Resolve 2017-032018-06-22 Estelita restriction d 04-26 11:30:00 Ulisses s 09:51: [id number] 00 Elimination urinary Eliminatio Resolve 2017-032018-06-22 Estelita incontinenc n d 04-26 11:30:00 Ulisses e 09:51: [id number] 00 Endo/Nito diabetic Endo/Nito Active 2017-03 Estelita foot care 05-16 Ulisses 17:47: [id number] 00 Sensory impaired Sensory Resolve 2017-032018-12-08 Estelita hearing d 05-16 10:56:00 Ulisses 17:47: [id number] 00 Integument surgical Integument Resolve 2017-032018-03-22 Estelita wound d 05-16 11:40:00 Ulisses present 17:47: [id number] 00 Integument skin Integument Active 2017-03 Estelita integrity 05-16 Ulisses risk 17:47: [id number] 00 Neuro confusion Neuro/Emot Resolve 2017-032018-12-08 Estelita present ion d 05-16 10:56:00 Ulisses 17:47: [id number] 00 Medication oral med Meds Resolve 2017-032018-06-22 Estelita assistance d 05-16 11:30:00 Ulisses required 17:47: [id number] 00 Medication injectable Meds Resolve 2017-032018-06-22 Estelita med d 05-16 11:30:00 Ulisses assistance 17:47: [id number] required 00 Medication potential Meds Resolve 2017-032018-06-22 Estelita clinically d 05-16 11:30:00 Ulisses significant 17:47: [id number] medication 00 issue Musculoskel knowledge/s Musculoske Resolve 2017-032018-11-10 Estelita etal kill letal d 05-16 09:15:00 Ulisses deficit: pt 17:47: [id number] 00 Activity ADL Activity Resolve 2018-07-27 Estelita assistance d -16 09:15:00 Ulisses required 11:15: [id number] 00 Activity patient Activity Resolve 2018-11-10 Estelita bedbound d -16 09:15:00 Ulisses 11:15: [id number] 00 Musculoskel transfer Musculoske Resolve 2018-11-10 Estelita etal assistance letal d 16 09:15:00 Ulisses required 11:15: [id number] 00 Safety can be left Safety Resolve 2018-08-03 Estelita alone for d 04-14 12:10:00 Ulisses only short 11:45: [id number] periods 00 Infection s/s of Infection Active Estelita infection 05-14 Ulisses 10:00: [id number] 00 Activity self-care Activity Resolve 2018-07-27 Estelita deficit d 05-17 09:15:00 Ulisses 10:45: [id number] 00 Neuro behavior Neuro/Emot Resolve 2018-12-08 Estelita problems ion d - 10:56:00 Ulisses 09:46: [id number] 00 Neuro constant Neuro/Emot Resolve 2018-12-08 Estelita confusion ion d 3-04 10:56:00 Ulisses 09:46: [id number] 00 Medication inhalant Meds Resolve 2018-06-22 Estelita med d 3-12 11:30:00 Ulisses assistance 14:00: [id number] required 00 Respiratory CPAP Respirator Active Estelita treatments y - Ulisses in home 11:30: [id number] 00 Nutrition nutritional Nutrition Resolve 2018-07-27 Estelita restriction d 06-29 09:15:00 Ulisses s 10:00: [id number] 00 Respiratory nebulizer Respirator Active Estelita treatment y 07-06 Ulisses in home 11:53: [id number] 00 Elimination urinary Eliminatio Resolve 2018-07-27 Estelita incontinenc n d 07-06 09:15:00 Ulisses e 11:53: [id number] 00 Musculoskel requires Musculoske Resolve 2018-11-10 Estelita etal special letal d 07-06 09:15:00 Ulisses transportat 11:53: [id number] ion 00 Medication oral med Meds Resolve 2018-08-10 Estelita assistance d 07-13 09:21:00 Ulisses required 12:15: [id number] 00 Medication inhalant Meds Resolve 2018-08-10 Estelita med d 07-13 09:21:00 Ulisses assistance 12:15: [id number] required 00 Medication injectable Meds Resolve 2018-10-21 Estelita med d 07-13 09:54:00 Ulisses assistance 12:15: [id number] required 00 Medication potential Meds Active Estelita clinically 07-13 Ulisses significant 12:15: [id number] medication 00 issue Nutrition nutritional Nutrition Resolve 2018-12-08 Estelita restriction d 5-10 10:56:00 Ulisses s 13:30: [id number] 00 Elimination recurring Eliminatio Resolve 2018-12-08 Estelita UTI n d 5-14 10:56:00 Ulisses 12:10: [id number] 00 Endo/Nito anti-coagul Endo/Nito Active Estelita ation 08-10 Ulisses therapy 09:21: [id number] 00 Elimination urinary Eliminatio Resolve 2018-12-08 Estelita incontinenc n d 08-10 10:56:00 Ulisses e 09:21: [id number] 00 Safety cannot be Safety Resolve 2019-01-27 Estelita left alone d 08-10 11:00:00 Ulisses 09:21: [id number] 00 Safety can be left Safety Resolve 2019-01-27 Estelita alone for d 08-31 11:00:00 Ulisses only short 10:00: [id number] periods 00 Activity ADL Activity Resolve 2018-11-24 Estelita assistance d 09-14 10:15:00 Ulisses required 09:30: [id number] 00 Activity self-care Activity Resolve 2018-11-10 Estelita deficit d 09-14 09:15:00 Ulisses 09:30: [id number] 00 Safety fall risk Safety Resolve 2019-01-27 Estelita factor d 09-14 11:00:00 Ulisses present 09:30: [id number] 00 Medication injectable Meds Unknown Estelita med 09-14 Ulisses assistance 09:30: [id number] required 00 Medication injectable Meds Unknown Estelita med 09-29 Ulisses assistance 13:11: [id number] required 00 Medication injectable Meds Resolve 2018-10-21 Estelita med d 10-13 09:54:00 Ulisses assistance 12:30: [id number] required 00 Activity self-care Activity Resolve 2019-01-27 Estelita deficit d 11-17 11:00:00 Ulisses 09:49: [id number] 00 Medication injectable Meds Active Estelita med 11-17 Ulisses assistance 09:49: [id number] required 00 Musculoskel transfer Musculoske Resolve 2019-01-27 Estelita etal assistance letal d 11-17 11:00:00 Ulisses required 09:49: [id number] 00 Musculoskel knowledge/s Musculoske Resolve 2018-2019-01-27 Estelita etal kill letal d 11-17 11:00:00 Ulisses deficit: pt 09:49: [id number] 00 Musculoskel requires Musculoske Resolve 2019-01-27 Estelita etal human letal d 11-17 11:00:00 Ulisses assist to 09:49: [id number] leave home 00 Musculoskel requires Musculoske Resolve 2019-01-27 Estelita etal special letal d 11-17 11:00:00 Ulisses transportat 09:49: [id number] ion 00 Activity patient Activity Active Estelita bedbound 11-24 Ulisses 10:15: [id number] 00 Nutrition nutritional Nutrition Resolve 2019-02-01 Estelita restriction d 12-14 11:05:00 Ulisses s 12:38: [id number] 00 Elimination urinary Eliminatio Resolve 2018-032019-02-01 Estelita incontinenc n d 0-02 11:05:00 Ulisses e 10:19: [id number] 00 Sensory impaired Sensory Active 2018-03 Estelita hearing 0-09 Ulisses 10:49: [id number] 00 Pain frequent Pain Mgmt Resolve 2018-032019-02-01 Estelita pain d 0-20 11:05:00 Ulisses 12:23: [id number] 00 Integument surgical Integument Active 2018-03 Estelita wound 0-20 Uilsses present 12:23: [id number] 00 Elimination UTI within Eliminatio Resolve 2018-032019-02-01 Estelita past 14 n d 0-20 11:05:00 Ulisses days 12:23: [id number] 00 Neuro confusion Neuro/Emot Active 2018-03 Estelita present ion 0-20 Ulisses 12:23: [id number] 00 Neuro anxiety Neuro/Emot Active 2018-03 Estelita present ion 0-20 Ulisses 12:23: [id number] 00 Neuro impaired Neuro/Emot Active 2018-03 Estelita decision-ma ion 0-20 Ulisses marcelle 12:23: [id number] 00 Activity ADL Activity Resolve 2018-032019-01-27 Estelita assistance d 0-20 11:00:00 Ulisses required 12:23: [id number] 00 Medication oral med Meds Active 2018-03 Estelita assistance 0 Ulisses required 12:23: [id number] 00 Endo/Nito insulin Endo/Nito Active 2018-03 Estelita admn Ulisses dependence 10:16: [id number] 00 Endo/Nito glucose Endo/Nito Active 2018-03 Estelita testing Ulisses dependence 10:16: [id number] 00 Sensory impaired Sensory Active 2018-03 Estelita verbal 04-03 Ulisses communicati 11:05: [id number] on 00 Safety can be left Safety Active 2018-03 Estelita alone for 04-03 Ulisses only short 11:05: [id number] periods 00 Musculoskel transfer Musculoske Active 2018-03 Estelita etal assistance letal 04-03 Ulisses required 11:05: [id number] 00 Musculoskel requires Musculoske Active 2018-03 Estelita etal human letal 04-03 Ulisses assist to 11:05: [id number] leave home 00 Musculoskel requires Musculoske Active 2018-03 Estelita etal special letal 04-03 Ulisses transportat 11:05: [id number] ion 00 Allergies, Adverse Reactions, Alerts Allergy Allergy Status Severity Reaction(s) Onset Inactive Treating Comments Name Type Date Date Clinician Iodine and Allergen Active Unknown altered mental [facility] Iodide Group statusseizure 07-23 Guidelli Containing [id number] Products Levaquin Medication Active Unknown itching Cherelle Name ID - Guidelli [id number] nitroglycer Base Active Unknown Anaphylaxis Cherelle in Ingredient - Guidelli [id number] Medications Ordered Filled Start Stop Current Ordering Indication Dosage Frequency Signature Comments Components Medication Medication Date Date Medication? Clinician (SIG) Name Name acetaminoph acetaminoph 2016- No Bindu 1 tab Unknown en 325 mg en 325 mg 09-04 Jeremiah PASTOR tablet tablet albuterol albuterol 2018- No Meade 1 Kika Unknown sulfate 2.5 sulfate 2.5 06-12 Jeremiah PASTOR mg/3 mL mg/3 mL (0.083 %) (0.083 %) solution solution for for nebulizatio nebulizatio n n aspirin 81 aspirin 81 No Bindu 1 tab Unknown mg mg 10-06 ,Jeremiah tablet,skyler tablet,skyler yed release yed release atorvastati atorvastati 2017- No Meade 0.5.tab Unknown n 20 mg n 20 mg 09-30 Jeremiah PASTOR tablet tablet benzonatate benzonatate 2016- No Meade 2 Cap Unknown 100 mg 100 mg 09-04 Jeremiah PASTOR capsule capsule budesonide budesonide 2017- No Bindu 2 ML Unknown 0.5 mg/2 mL 0.5 mg/2 mL 09-04 Jeremiah PASTOR suspension suspension for for nebulizatio nebulizatio n n cholecalcif cholecalcif 2017- No Meade 2 tab Unknown rob rob 09-04 Jeremiah PASTOR (vitamin (vitamin D3) 1,000 D3) 1,000 unit (25 unit (25 mcg) tablet mcg) tablet carboxymeth carboxymeth 2017- No Bindu 2 drops Unknown ylcellulose ylcellulose 09-04 Jeremiah PASTOR sodium 1 % sodium 1 % eye liquid eye liquid gel drops gel drops clobetasol- clobetasol- 2017- No Meade 1 cream Unknown emollient emollient 09-04 Jeremiah [...] liquid oral liquid Lantus Lantus 2014-03- No [place]ade 35 Kika Unknown U-100 U-100 04-07 Jeremiah [...] /min senna 8.6 senna 8.6 2015- No Meade 2 tab Unknown mg tablet mg tablet 08-15 Jeremiah PASTOR sertraline sertraline 2015- No Meade 0.5 Tab Unknown 100 mg 100 mg [...] ,Jeremiah warfarin 1 warfarin 1 2015- No Meade 4-7 Unknown mg tablet mg tablet 06-03 ,Jeremiah warfarin 1 warfarin 1 2015- No Bindu 7 Unknown mg tablet mg tablet 06-12 ,Jeremiah Calin Dilantin 2015- No Meade 3Cap Unknown Kapseal 100 Kapseal 100 06-12 ,Jeremiah mg capsule mg capsule warfarin warfarin 2015- No Meade 8-7mg Unknown 06-17 ,Jeremiah warfarin warfarin 2015- No Meade 8-7mg Unknown 06-24 ,Jeremiah sulfamethox sulfamethox No Meade 400 Unknown azole azole 06-24 ,Jeremiah warfarin warfarin 2015- No Meade 8-7mg Unknown 07-01 ,Jeremiah warfarin warfarin 2017- No Meade 8-7mg Unknown 07-02 ,Jeremiah Bactrim DS Bactrim DS No Meade 1 Unknown 800 mg-160 800 mg-160 07-05 Jeremiah PASTOR mg tablet mg tablet sertraline sertraline No Bnidu 1 Tab Unknown 100 mg 100 mg 07-08 Jeremiah PASTOR tablet tablet warfarin 1 warfarin 1 2017- No Meade 7-8mg Unknown mg tablet mg tablet 07-08 [...] 07-12 Jeremiah PASTOR senna 8.6 senna 8.6 Meade 2 tab Unknown mg tablet mg tablet 07-15 Jeremiah PASTOR Vitamin D Vitamin D Bindu 1 Unknown 2,000 unit 2,000 unit 07-22 Jeremiah PASTOR tablet tablet warfarin 1 warfarin 1 Meade 6 Unknown mg tablet mg tablet 07-23 Jeremiah PASTOR Bactrim 400 Bactrim 400 Meade 1 Unknown mg-80 mg mg-80 mg 07-23 Jeremiah PASTOR tablet tablet dilTIAZem dilTIAZem Bindu 1 Unknown 120 mg 120 mg 07-23 Jeremiah PASTOR tablet tablet warfarin 1 warfarin 1 Bindu 7 mg Unknown mg tablet mg tablet 07-26 Jeremiah PASTOR warfarin 1 warfarin 1 Meade 1mg tab Unknown mg tablet mg tablet 07-29 Jeremiah PASTOR coumidin coumidin Meade 1mg Unknown 08-05 Jeremiah PASTOR Lovenox 80 Lovenox 80 Bindu 80mg Unknown mg/0.8 mL mg/0.8 mL 07-20 Jeremiah PASTOR subcutaneou subcutaneou s syringe s syringe Dilantin Dilantin Meade 2tabs Unknown Kapseal 100 Kapseal 100 08-09 Jeremiah PASTOR mg capsule mg capsule warfarin 1 warfarin 1 Bindu 1mg Unknown mg tablet mg tablet 08-13 Jeremiah PASTOR warfarin 1 warfarin 1 Bindu 1mg Unknown mg tablet mg tablet 08-12 Jeremiah PASTOR Oxygen 2L/M Oxygen 2L/M Meade 4 L Unknown 08-30 Jeremiah PASTOR /min warfarin 1 warfarin 1 Bindu 1mg Unknown mg tablet mg tablet 09-17 Jeremiah PASTOR warfarin 1 warfarin 1 Bindu 1mg Unknown mg tablet mg tablet 09-24 Jeremiah PASTOR warfarin 1 warfarin 1 2016-0 2016- No Bindu 1mg Unknown mg tablet mg tablet 09-30 Jeremiah PASTOR warfarin 1 warfarin 1 2015- No Meade 1mg Unknown mg tablet mg tablet 09-24 Jeremiah PASTOR Coumadin 2 Coumadin 2 2015- No Meade 5-6mg Unknown mg tablet mg tablet 09-30 Jeremiah PASTOR warfarin 1 warfarin 1 2015- No Meade 5mg Unknown mg tablet mg tablet 10-14 [...] recheck warfarin 1 warfarin 1 2015- No Meade per inr Unknown mg tablet mg tablet [...] 11/18. warfarin 1 warfarin 1 2015- No Meade perinr Unknown mg tablet mg tablet 11-18 Jeremiah PASTOR on 11/18 take 6 mg daily recheck 2 weeks on 12/02 Oxygen 2L/M Oxygen 2L/M 2015- No Meade 4 L Unknown 11-22 Jeremiah PASTOR /min warfarin 1 warfarin 1 2015- No Meade perinr Unknown mg tablet mg tablet 11-22 [...] inr on 12/09 amoxicillin amoxicillin 2015- No Meade 1 tab Unknown 500 500 12-04 Jeremiah PASTOR mg-potassiu mg-potassiu m m clavulanate clavulanate 125 mg 125 mg tablet tablet oxygen oxygen 2015- No Meade 3 Unknown 11-25 Jeremiah PASTOR liters in the home and 4 liters while out of the home warfarin 1 warfarin 1 2015- No Meade per inr Unknown mg tablet mg tablet 12-09 Jeremiah PASTOR on 12/09 take mon 6mg , tu, 4mg, thu 6mg, 6mg, thu 6mg, sat and sun 6mg, recheck on 12/16 warfarin 1 warfarin 1 2015- No Meade 6mg Unknown mg tablet mg tablet 12-16 Jeremiah PASTOR recheck INR 12/23 Dilantin Dilantin 2015- No Meade 2 tabs Unknown Kapseal 100 Kapseal 100 12-20 Jeremiah PASTOR AM & mg capsule mg capsule BED furosemide furosemide 2015-03- No Meade take Unknown 40 mg 40 mg 01-01 Jeremiah PASTOR one tablet tablet tablet by mouth bid carvedilol carvedilol 2015-03- No Bindu take Unknown 6.25 mg 6.25 mg 01-01 Jeremiah PASTOR one- tablet tablet half tablet by mouth bid oxygen oxygen 2015-03 No Bindu 3.5 Unknown 0 Jeremiah PASTOR litters at home and 4.5 out of the home Coumadin 1 Coumadin 1 2015-03- No Meade take Unknown mg tablet mg tablet 0-03 01- Jeremiah PASTOR 6tabs q bedtime to prevent blood clots [facility] 01/08 carvedilol carvedilol 2015-03- Meade take Unknown 6.25 mg 6.25 mg 0- [...] 01/20 Coumadin 1 Coumadin 1 2015-03- No Meade 6 tabs Unknown mg tablet mg tablet [...] tablet 05-11 Jeremiah PASTOR Landiegous 2015-03- No Meade 32 Unknown Solostar Solostar 05-11 Jeremiah PASTOR Units U-100 U-100 Insulin 100 Insulin 100 unit/mL (3 unit/mL (3 mL) mL) subcutaneou subcutaneou s pen s pen Coumadin 1 Coumadin 1 2015-03- No Meade 6mg Unknown mg tablet mg tablet 05-19- Jeremiah PASTOR (Suni/Edward es/Josephine s/Sat)- 9mg M/W/F Coumadin 1 Coumadin 1 2016- No Meade 8mg X1 Unknown mg tablet mg tablet 03-25 Jeremiah PASTOR (03/25/16 ), then M,W,F 9mg, other days 6mg. RECHECK INR 04/01/16 insulin insulin 2016- No Bindu 32 Unknown glargine glargine 03-25 Jeremiah PASTOR Units (U-100) 100 (U-100) 100 unit/mL unit/mL subcutaneou subcutaneou s solution s solution cephALEXin cephALEXin 2016- No Meade 500mg Unknown 500 mg 500 mg 03-27 Jeremiah PASTOR capsule capsule insulin insulin 2016- No Meade 37 Unknown glargine glargine 03-27 Jeremiah PASTOR Units (U-100) 100 (U-100) 100 unit/mL unit/mL subcutaneou subcutaneou s solution s solution Coumadin 1 Coumadin 1 2016- No Meade 8mg X1 Unknown mg tablet mg tablet [...] tablet Coumadin 1 Coumadin 1 2016- No Meade 6-9 Unknown mg tablet mg tablet 04-01 Jeremiah PASTOR tabs insulin insulin 2016- Bindu 25 Unknown glargine glargine 04-01 Jeremiah PASTOR Units (U-100) 100 (U-100) 100 unit/mL unit/mL subcutaneou subcutaneou s solution s solution warfarin 1 warfarin 1 2016- No Meade 6mg Unknown mg tablet mg tablet 04-08 Jeremiah PASTOR warfarin 1 warfarin 1 2016- No Bindu 9mg Unknown mg tablet mg tablet 04-08 Jeremiah PASTOR warfarin 1 warfarin 1 2016- No Bindu 6 tabs Unknown mg tablet mg tablet 04-08 Jeremiah PASTOR (Thu/ es/Thur s/Sat) warfarin 1 warfarin 1 2016- No Meade 6 tabs Unknown mg tablet mg tablet 04-08 Jeremiah PASTOR (Thu/ es/Thur s/Sat) warfarin 1 warfarin 1 2016- No Bindu 9 tabs Unknown mg tablet mg tablet 04-08 Jeremiah PASTOR (Thu/ d/Thu) acetaminoph acetaminoph No Meade 2 tab Unknown en 325 mg en 325 mg 04-21 Jeremiah PASTOR tablet tablet warfarin 1 warfarin 1 2016- No Meade 11 tabs Unknown mg tablet mg tablet 05-05 Jeremiah PASTOR warfarin 1 warfarin 1 2016- No Bindu 9 tabs Unknown mg tablet mg tablet 05-06 Jeremiah PASTOR (Thu/ d/Thu) Keflex 500 Keflex 500 2016- No Bindu 1 Unknown mg capsule mg capsule 05-24 Jerem[facility] PASTOR warfarin 1 warfarin 1 2016- No [place] 6-9 Unknown mg tablet mg tablet 06-12 Jeremiah PASTOR tablets (6-9 mgs) senna 8.6 senna 8.6 2017- No [place] 1-2 tab Unknown mg tablet mg tablet [...] capsule warfarin 1 warfarin 1 2016- No [place] 11 Unknown mg tablet mg tablet 07-14 ,Jeremiah tablets -07/14, 9 tabs M/W/F and 6tabs T//F/ Sat/Sun cephALEXin cephALEXin 2016- No Bindu 1 cap Unknown 500 mg 500 mg 07-08 ,Jeremiah capsule capsule warfarin 1 warfarin 1 2016- No [place] 3 tabs Unknown mg tablet mg tablet 07-21 Jeremiah PASTOR 5/1,2 tabs 5/2,3 tabs 5/3,2 tabs 5/4,3 tabs 5/5,3 tabs 5/6,2 tabs 5/7 warfarin 3 warfarin 3 2016- No Bindu 3 tabs Unknown mg tablet mg tablet 07-21 Jeremiah PASTOR 5/1,2 tabs 5/2,3 tabs 5/3,2 tabs 5/4,3 tabs 5/5,3 tabs 5/6,2 tabs 5/7 warfarin 3 warfarin 3 2016- No [place] 3 tabs Unknown mg tablet mg tablet 07-21 Jeremiah PASTOR Mon,Wed ,Fri,Sa t 2 tabs Sun,Tue s,Thur repeat INR 5/15 warfarin 3 warfarin 3 2016- No Bindu 4.5 mg Unknown mg tablet mg tablet 08-04 Jeremiah PASTOR for today only then:6m g Tues and Thurs,9 mg Mon Wed Fri Sat and Sun repeat INR 5/22 warfarin 3 warfarin 3 2016- No [place] 2 tabs Unknown mg tablet mg tablet 08-11 Jeremiah PASTOR (6 mg Tues and Thurs), 3 tabs (9mg Mon/Wed /Fri/Sa t/Sun enoxaparin enoxaparin Bindu 1ml Unknown sodium 100 sodium 100 08-19 Jeremiah PASTOR/1mL mg/1mL subcutaneou subcutaneou s syringe s syringe HYDROcodone HYDROcodone [place] 1 tab Unknown 5 5 08-19 Jeremiah PASTOR mg-acetamin mg-acetamin ophen 325 ophen 325 mg tablet mg tablet warfarin 3 warfarin 3 [place] 2 tabs Unknown mg tablet mg tablet 08-19 Jeremiah PASTOR (6 mg and ), 3 tabs (9mg Thu/Thu /Thu/ t/Sun warfarin 3 warfarin 3 Bindu 2 tabs Unknown mg tablet mg tablet 08-19 Jeremiah PASTOR (6 mg and ), 3 tabs (9mg Thu/Thu /Thu/ t/Sun warfarin 3 warfarin 3 [place] 4 tabs Unknown mg tablet mg tablet 08-21 Jeremiah PASTOR 6/2 and 08/23 repeat INR 6/5 cephALEXin cephALEXin [place] 1 cap Unknown 500 mg 500 mg 08-22 Jeremiah PASTOR for 4 capsule capsule days warfarin 3 warfarin 3 [place] 12mg Unknown mg tablet mg tablet 08-25 Jeremiah PASTOR 6/6,9mg 7-08/21 1 repeat INR 6/12 warfarin 3 warfarin 3 No [place] 12mg Unknown mg tablet mg tablet 08-25 Jeremiah PASTOR 6/6,9mg /7-08/21 1 repeat INR 6/12 warfarin 3 warfarin 3 2016- No [place] 12mg Unknown mg tablet mg tablet 09-01 [...] solution warfarin 3 warfarin 3 2016- No [place] hold Unknown mg tablet mg tablet 10-14 Jeremiah PASTOR 10/14,9m g thu,thu s, sat and sun,6mg mon and fri,rep eat INR 87 insulin insulin 2017- No Bindu 35 Unknown glargine glargine 10-20 Jeremiah PASTOR Units (U-100) 100 (U-100) 100 unit/mL unit/mL subcutaneou subcutaneou s solution s solution warfarin 3 warfarin 3 2016- No [place] hold Unknown mg tablet mg tablet 10-27 Jeremiah PASTOR until 10/29 repeat INR 10 warfarin 3 warfarin 3 2016- No Bindu 9mg Unknown mg tablet mg tablet 10-30 Jeremiah PASTOR thursday and da y,6mg Thu.,Fr i,and Sun,rep eat INR 11/03 warfarin 3 warfarin 3 2016- No [place] 7.5mg Unknown mg tablet mg tablet 11-03 [...] 9/5 warfarin 3 warfarin 3 2016- No [place] hold Unknown mg tablet mg tablet 11-25 Jeremiah PASTOR 11/25 then 6mg sat,9mg Thu Fri and Sun warfarin 3 warfarin 3 [facility] hol on Unknown mg tablet mg tablet 12-09 Jeremiah PASTOR,9m g Wed and Sat,6mg the rest of the week and repeat INR on 12/16 warfarin 3 warfarin 3 2016- [facility] hold on Unknown mg tablet mg tablet [...] to clinic on 01/05 cephALEXin cephALEXin 2016-03 [facility] 1 Unknown 500 mg 500 mg 01-10 Jeremiah PASTOR Tablet capsule capsule warfarin 3 warfarin 3 2016-03- [facility] hold Unknown mg tablet mg tablet 01-20 Jeremiah PASTORight ,6mg daily ,9mg just on Sat. repeat INR in 2wks warfarin 3 warfarin 3 2016-03- No Bindu 9mg Unknown mg tablet mg tablet 01-27 Jeremiah PASTOR 01/20 ,6mg daily ,9mg just on Sat. repeat INR 02/03 warfarin 3 warfarin 3 2016-03- No [place] 6mg Unknown mg tablet mg tablet 03-29 Jeremiah PASTOR daily,9 mg Thursday, repeat INR 11/14,1 04/12,,,04/14 ,05/12,3 ,4/2 4,08/11, 09/08,,11/10 ,12/08,1 warfarin 3 warfarin 3 2016-03- No [place] 6mg Unknown mg tablet mg tablet 04-12 [...] 5 mg Ambien 5 mg 2017- No [place] / tab Unknown tablet tablet 04-03 Jeremiah PASTOR warfarin 3 warfarin 3 2017- No Bindu increas Unknown mg tablet mg tablet 04-03 Jeremiah PASTOR 03/24 tab 04/04,6m g daily, 9mg Sun,6mg daily repeat INR 02/03,1 04/12,,,04/14 ,05/12,,4 4,08/11, 09/08,,11/10 ,12/08,1 warfarin 3 warfarin 3 2017- No [place] ,6mg Unknown mg tablet mg tablet 04-07 Jeremiah PASTOR daily, 9mg Sun, repeat INR 04/14,,06/09 ,07/14,,6 9,10/01, 11/10,,12/22 3 warfarin 3 warfarin 3 2017- No Bindu hold Unknown mg tablet mg tablet 04-13 Jeremiah PASTOR 04/13 2mg 04/14,6m g dailly, 9mg Sun, repeat INR 04/20,2,3 ,07/14,5 ,6 9,10/01, 11/10,,10 3 metoprolol metoprolol No [place] 25mg Unknown tartrate 25 tartrate 25 - Jeremiah PASTOR mg tablet mg tablet Ambien 10 Ambien 10 2017- No [place] 10 mg Unknown mg tablet mg tablet [...] 05/26 warfarin 3 warfarin 3 2017- No [place] 2-3 Unknown mg tablet mg tablet 05-26 Jeremiah PASTOR tabs cephALEXin cephALEXin 2017- No [place] 1 cap Unknown 500 mg 500 mg [...] week warfarin 3 warfarin 3 2017- No [place] 6mg Unknown mg tablet mg tablet 06-22 [...] or 08/11 Ambien 10 Ambien 10 No [place] 1/2 tab Unknown mg tablet mg tablet 08-03 ,Jeremiah warfarin 3 warfarin 3 2017- No Bindu 9mg Unknown mg tablet mg tablet 08-10 Jeremiah PASTOR ,3mg tues,th urs,sat ,6mg thu,thu ,thu,an d sun.Rep eat INR in 2 wks warfarin 3 warfarin 3 2017- No [place] 6mg Unknown mg tablet mg tablet 08-24 Jeremiah PASTOR-Sun,3 mg Tues and Sat repeat on 08/31 or 09/01 cephALEXin cephALEXin 2017- No [place] 1 tab Unknown 500 mg 500 mg 08-29 Jeremiah PASTOR tablet tablet warfarin 3 warfarin 3 2017- No [place] 6mg Unknown mg tablet mg tablet 09-01 Jeremiah PASTORSun,3 mg Tues and Sat repeat on 08/31 or 09/01 warfarin 3 warfarin 3 2017- No Bindu 6mg Unknown mg tablet mg tablet 09-07 Jeremiah PASTORSuni,3 mg Tues Sat repeat INR 09/14 or 09/15 warfarin 3 warfarin 3 2017- No Bindu Unknown Unknown mg tablet mg tablet 09-15 ,Jeremiah warfarin 3 warfarin 3 2017- No [place] Unknown Unknown mg tablet mg tablet 09-29 ,Jeremiah warfarin 3 warfarin 3 2017- No Bindu Unknown Unknown mg tablet mg tablet 10-13 Jeremiah PASTOR hydrOXYzine hydrOXYzine 2017- No Bindu Unknown Unknown HCl 10 mg HCl 10 mg 11-10 Jeremiah PASTOR tablet tablet warfarin 3 warfarin 3 2017- No [place] Unknown Unknown mg tablet mg tablet 11-11 ,Jeremiah warfarin 3 warfarin 3 2017- No Bindu Unknown Unknown mg tablet mg tablet 11-24 ,Jeremiah amoxicillin amoxicillin 2017- No [place] Unknown Unknown 125 mg 125 mg 12-01 ,Jeremiah tablet tablet prednisone prednisone 2017- No Bindu Unknown Unknown 20 mg 20 mg 12-01 ,Jeremiah tablet tablet warfarin 3 warfarin 3 2017- No Bindu Unknown Unknown mg tablet mg tablet 12-08 MD,Jeremiah warfarin 3 warfarin 3 2017-03- No Bindu Unknown Unknown mg tablet mg tablet 01-26 MD,Jeremiah warfarin 3 warfarin 3 2017-03- No [place] Unknown Unknown mg tablet mg tablet 03-28 MD,Jeremiah warfarin 3 warfarin 3 2017-03- No [place] Unknown Unknown mg tablet mg tablet 04-04 ,Jeremiah warfarin 3 warfarin 3 2017-03- No [place] Unknown Unknown mg tablet mg tablet 04-18 ,Jeremiah warfarin 3 warfarin 3 2017-03- No [place] Unknown Unknown mg tablet mg tablet 04-26 ,Jeremiah warfarin 3 warfarin 3 2017-03- No Bindu Unknown Unknown mg tablet mg tablet 04-26 ,Jeremiah atorvastati atorvastati 2017-03 No [place] Unknown Unknown n 40 mg n 40 mg 05-16 Jeremiah PASTOR tablet tablet insulin insulin 2017-03- No [place] Unknown Unknown glargine glargine 05-16 Jeremiah PASTOR (U-100) 100 (U-100) 100 unit/mL unit/[facility] s solution sennosides sennosides 2017-03- No [place] Unknown Unknown 8.6 mg 8.6 mg 05-16 ,Jeremiah tablet tablet warfarin 3 warfarin 3 2017-03- No [place] Unknown Unknown mg tablet mg tablet 03-22 ,Jeremiah warfarin 3 warfarin 3 2017-03- No [place] Unknown Unknown mg tablet mg tablet 03-31 ,Jeremiah lisinopril lisinopril 2017-03 No [place] Unknown Unknown 5 mg tablet 5 mg tablet 05-16 Jeremiah PASTOR omeprazole omeprazole 2017-03- No Bindu Unknown Unknown magnesium magnesium 05-16 12-24 Jeremiah PASTOR 20 mg 20 mg tablet,skyler tablet,skyler yed release yed release omeprazole omeprazole 2017-03- No [place] Unknown Unknown magnesium magnesium 05-16 05-14 Jeremiah PASTOR 20 mg 20 mg tablet,skyler tablet,skyler yed release yed release cholecalcif cholecalcif 2017-03 No [place] Unknown Unknown rob rob 2-24 Jeremiah PASTOR (vitamin (vitamin D3) 1,000 D3) 1,000 unit (25 unit (25 mcg) tablet mcg) tablet hydrOXYzine hydrOXYzine 2017-03 No Bindu Unknown Unknown HCl 10 mg HCl 10 mg 05-16 Jeremiah PASTOR tablet tablet warfarin 3 warfarin 3 2018- No [place] Unknown Unknown mg tablet mg tablet 03-31 Jeremiah PASTOR predniSONE predniSONE 2018- No Bindu Unknown Unknown 20 mg 20 mg 03-31 Jeremiah PASTOR tablet tablet phenazopyri phenazopyri 2018- No [place] Unknown Unknown dine 100 mg dine 100 mg 04-01 Jeremiah PASTOR tablet tablet cephALEXin cephALEXin 2018- No [place] Unknown Unknown 500 mg 500 mg 04-30 Jeremiah PASTOR capsule capsule warfarin 3 warfarin 3 2018- No [place] Unknown Unknown mg tablet mg tablet 05-14 Jeremiah PASTOR ciprofloxac ciprofloxac 2018- No Bindu Unknown Unknown in 500 mg in 500 mg 05-14 Jeremiah PASTOR tablet tablet insulin insulin 2018- No [place] Unknown Unknown glargine glargine 05-27 Jeremiah PASTOR (U-100) 100 (U-100) 100 unit/mL unit/mL subcutaneou subcutaneou s solution s solution warfarin 3 warfarin 3 2018- No Bindu Unknown Unknown mg tablet mg tablet 05-31 Jeremiah PASTOR Victoza Victoza 2018- No B[facility]u Unknown Unknown 2-Gurindre 0.6 2-Gurinder 0.6 06-01 Jeremiah PASTOR mg/0.1 mL mg/0.1 mL (18 mg/3 (18 mg/3 mL) mL) subcutaneou subcutaneou s pen s pen injector injector Victoza Victoza No [place] Unknown Unknown 2-Gurinder 0.6 2-Gurinder 0.6 3-20 Jeremiah PASTOR mg/0.1 mL mg/0.1 mL (18 mg/3 (18 mg/3 mL) mL) subcutaneou subcutaneou s pen s pen injector injector mometasone mometasone No [place] Unknown Unknown 220 220 3-18 Jeremiah PASTOR mcg/actuati mcg/actuati on(60 on(60 doses) doses) breath breath activated activated powder powder inhaler inhaler warfarin 3 warfarin 3 2018- No Bindu Unknown Unknown mg tablet mg tablet 06-15-16 Jeremiah PASTOR warfarin 3 warfarin 3 2018- No Bindu Unknown Unknown mg tablet mg tablet 07-06 Jeremiah PASTOR cephALEXin cephALEXin 2018- No [place] Unknown Unknown 500 mg 500 mg 08-03- Jeremiah PASTOR tablet tablet warfarin 3 warfarin 3 2018- No Bindu Unknown Unknown mg tablet mg tablet 08-10 Jeremiah PASTOR warfarin 3 warfarin 3 2018- No Bindu Unknown Unknown mg tablet mg tablet 08-10- Jeremiah PASTOR omeprazole omeprazole No [place] Unknown Unknown magnesium magnesium - Jeremiah PASTOR 20 mg 20 mg tablet,skyler tablet,skyler yed release yed release warfarin 3 warfarin 3 2018- No Bindu Unknown Unknown mg tablet mg tablet 08-31 Jeremiah PASTOR warfarin 3 warfarin 3 2018- No Bindu Unknown Unknown mg tablet mg tablet 09-14 07-10 Jeremiah PASTOR warfarin 3 warfarin 3 2018- No [place] Unknown Unknown mg tablet mg tablet 09-29-14 Jeremiah PASTOR warfarin 3 warfarin 3 2018- No Bindu Unknown Unknown mg tablet mg tablet 11-03 Jeremiah PASTOR Augmentin Augmentin 2018- Yes Bindu Unknown Unknown 500 mg-125 500 mg-125 12-14 10- Jeremiah PASTOR mg tablet mg tablet fluconazole fluconazole 2018- Yes [place] Unknown Unknown 100 mg 100 mg 12-14- Jeremiah PASTOR tablet tablet warfarin 3 warfarin 3 Yes [place] Unknown Unknown mg tablet mg tablet 12-14- ,Jeremiah warfarin 3 warfarin 3 2018-03 Yes Bindu Unknown Unknown mg tablet mg tablet 002 10-20 Jeremiah PASTOR carbamide carbamide 2018-03 Yes [place] Unknown Unknown peroxide peroxide 0-09 Jeremiah PASTOR 6.5 % ear 6.5 % ear drops drops cephALEXin cephALEXin 2018-03 Yes Bindu Unknown Unknown 500 mg 500 mg 0-20 - Jeremiah PASTOR capsule capsule doxycycline doxycycline 2018-03 Yes [place] Unknown Unknown monohydrate monohydrate 0-20 - Jeremiah PASTOR 100 mg 100 mg capsule capsule Eliquis 5 Eliquis 5 2018-03 Yes Bindu Unknown Unknown mg tablet mg tablet 0-20 Jeremiah PASTOR oxyCODONE 5 oxyCODONE 5 2018-03 Yes Bindu Unknown Unknown mg tablet mg tablet 0-20 ,Jeremiah Lasix 20 mg Lasix 20 mg 2018-03 Yes [place] Unknown Unknown tablet tablet 0-20 ,Jeremiah insulin insulin 2018-03 Yes [place] Unknown Unknown glargine glargine 0-20 Jeremiah PASTOR [...]
--- OUTSIDE RECORDS SUMMARY | 2019-02-06 09:11 | XMS REPORT ---
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 Chronic Chronic Diagnosis Active Estelita systolic systolic 06-12 Ulisses (congestive (congestive [id number] ) heart ) heart failure failure Chronic Chronic Diagnosis Active 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 0-13 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, disease, unspecified unspecified 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 06-12 Ulisses mellitus mellitus [id number] with with diabetic diabetic neuropathy, neuropathy, unsp unsp 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 [id number] toe(s) toe(s) I48.91 I48.91 Diagnosis Active Fielding 06-12 Ulisses [id number] Safety knowledge/s Safety Resolve 2015-07-26 Meghann kill d 2-15 15:15:00 Jasen deficit: pt 10:00: [id number] 00 Diagnoses knowledge/s Diagnoses Active Meghann kill 2-15 Jasen deficit: pt 10:00: [id number] 00 Diagnoses knowledge/s Diagnoses Active Meghann kill 2-15 Jasen deficit: cg 10:00: [id number] 00 Respiratory knowledge/s Respirator Resolve 2015-10-22 Martina kill y d 07 10:30:00 Sinnigen deficit: cg 10:30: [id number] 00 Pain frequent Pain Mgmt Resolve 2018-08-03 Paula pain d 06-03 12:10:00 [place] 11:00: [id number] 00 Respiratory oxygen Respirator Resolve 2015-2016-12-09 Paula treatments y d 3-14 12:18:00 Eri in home 11:00: [id number] 00 Respiratory CPAP Respirator Resolve 2016-12-09 Paula treatments y d 3-14 12:18:00 [place] in home 11:00: [id number] 00 Integument skin Integument Resolve 2015-06-08 Paula integrity d 3-14 14:20:00 [place] risk 11:00: [id number] 00 Nutrition knowledge/s Nutrition Resolve 2015-06-08 Paula kill d 3-14 14:20:00 [place] deficit: pt 11:00: [id number] 00 Nutrition knowledge/s Nutrition Resolve 2015-06-08 Paula kill d 3-14 14:20:00 [place] deficit: cg 11:00: [id number] Neuro knowledge/s Neuro/Emot Resolve 2015-06-08 Paula kill ion d 3-14 14:20:00 [place] deficit: pt 11:00: [id number] Neuro seizures Neuro/Emot Resolve 2015-06-08 Paula ion d 3-14 14:20:00 [place] 11:00: [id number] 00 Activity ADL Activity Resolve 2015-06-08 Paula assistance d 3-14 14:20:00 Eri required 11:00: [id number] Safety fall risk Safety Resolve 2015-06-08 Paula factor d 3-14 14:20:00 Eri present 11:00: [id number] 00 Safety risk for Safety Resolve 2015-06-08 Paula hospitaliza d 3-14 14:20:00 [place] tion 11:00: [id number] 00 Medication knowledge/s Meds Resolve 2015-06-08 Paula kill d 3-14 14:20:00 Eri deficit: pt 11:00: [id number] 00 Musculoskel knowledge/s Musculoske Resolve 2015-06-08 Paula etal kill letal d 3-14 14:20:00 Eri deficit: pt 11:00: [id number] Psych psych risk Psych Resolve 2015-06-08 Paula Problems factors d 3-14 14:20:00 [place] present 11:00: [id number] 00 Bed transfer PT/OT: Bed Resolve 2015-06-08 Rubén Mobility/Tr deficit: Mobility/T d 3-18 14:20:00 Que mack sit/stand ransfer 14:20: [id number] 00 Bed transfer PT/OT: Bed Resolve 2015-06-08 Rubén Mobility/Tr deficit: Mobility/T d 3-18 14:20:00 Que mack toilet/comm ransfer 14:20: [id number] ode 00 Bed transfer PT/OT: Bed Resolve 2015-06-08 Rubén Mobility/Tr deficit: Mobility/T d 318 14:20:00 Que mack shower/tub ransfer 14:20: [id number] 00 Bed transfer PT/OT: Bed Resolve 2015-06-08 Rubén Mobility/Tr deficit: Mobility/T d 318 14:20:00 Que mack vehicle ransfer 14:20: [id number] 00 Bed knowledge/s PT/OT: Bed Resolve 2015-06-08 Rubén Mobility/Tr kill Mobility/T d 318 14:20:00 Que mack deficit: pt ransfer 14:20: [id number] 00 Bed bed PT/OT: Bed Resolve 2015-06-08 Rubén Mobility/Tr mobility Mobility/T d 318 14:20:00 Que mack deficit ransfer 14:20: [id number] 00 Balance/End endurance PT/OT: Resolve 2015-06-12 Rubén urance deficit Balance/En d 318 14:50:00 Que durance 14:20: [id number] 00 Balance/End knowledge/s PT/OT: Resolve 2015-06-12 Rubén urance kill Balance/En d 18 14:50:00 Que deficit: pt durance 14:20: [id number] 00 Gait/Locomo gait PT/OT: Resolve 2015-06-08 Rubén tion assistive Gait/Locom d 318 14:20:00 Que problems device otion 14:20: [id number] present 00 Gait/Locomo knowledge/s PT/OT: Resolve 2015-06-08 Rubén tion kill Gait/Locom d 06-07 14:20:00 Que problems deficit: pt otion 14:20: [id number] 00 Gait/Locomo gait PT/OT: Resolve 2015-06-08 Rubén tion deficit Gait/Locom d 06-07 14:20:00 Que problems otion 14:20: [id number] 00 Safety risk for Safety Resolve 2015-06-12 [facility] 14:50:00 [place] tion 09:35: [id number] 00 Bed transfer PT/OT: Bed Resolve 2015-06-12 Rubén Mobility/Tr deficit: Mobility/T d 06-11 14:50:00 Que ansfer sit/stand ransfer 14:50: [id number] 00 Gait/Locomo knowledge/s PT/OT: Resolve 2015-06-12 Rubén tion kill Gait/Locom d 06-11 14:50:00 Que problems deficit: pt otion 14:50: [id number] 00 Gait/Locomo gait PT/OT: Resolve 2015-06-12 Rubén tion deficit Gait/Locom d 06-11 14:50:00 Que problems otion 14:50: [id number] 00 Safety risk for Safety Resolve [facility]06[facility] 14:20:[facility] Eri tion 10:30: [id number] 00 Bed transfer PT/OT: Bed Resolve 2015-06-15 Rubén Mobility/Tr deficit: Mobility/T d 06-14 14:20:00 Que ansfer sit/stand ransfer 14:20: [id number] 00 Bed transfer PT/OT: Bed Resolve 2015-06-15 Rubén Mobility/Tr deficit: Mobility/T d 06-14 14:20:00 Que ansfer toilet/comm ransfer 14:20: [id number] ode 00 Gait/Locomo gait PT/OT: Resolve 2015-06-15 Rubén tion assistive Gait/Locom d 06-14 14:20:00 Que problems device otion 14:20: [id number] present 00 Gait/Locomo knowledge/s PT/OT: Resolve 2015-06-15 Rubén tion kill Gait/Locom d 06-14 14:20:00 Que problems deficit: pt otion 14:20: [id number] 00 Gait/Locomo gait PT/OT: Resolve 2015-06-15 Rubén tion deficit Gait/Locom d 06-14 14:20:00 Que problems otion 14:20: [id number] 00 Respiratory dyspnea Respirator Resolve 2016-12-09 Paula present y d 06-21 12:18:00 Eri 13:00: [id number] 00 Respiratory lung sounds Respirator Resolve 2015-06-29 Paula deficit y d 06-21 14:20:00 Eri 13:00: [id number] 00 Bed transfer PT/OT: Bed Resolve 2015-06-22 Rubén Mobility/Tr deficit: Mobility/T d 06-21 14:20:00 Que ansfer sit/stand ransfer 14:20: [id number] 00 Balance/End knowledge/s PT/OT: Resolve 2015-06-22 Rubén urance kill Balance/En d 06-21 14:20:00 Que deficit: pt durance 14:20: [id number] 00 Balance/End endurance PT/OT: Resolve 2015-06-22 Rubén urance deficit Balance/En d 06-21 14:20:00 Que durance 14:20: [id number] 00 Gait/Locomo knowledge/s PT/OT: Resolve 2015-06-22 Rubén tion kill Gait/Locom d 06-21 14:20:00 Que problems deficit: pt otion 14:20: [id number] 00 Gait/Locomo gait PT/OT: Resolve 2015-06-22 Rubén tion deficit Gait/Locom d 06-21 14:20:00 Que problems otion 14:20: [id number] 00 Gait/Locomo gait PT/OT: Resolve 2015-06-22 Rubén tion assistive Gait/Locom d 06-21 14:20:00 Que problems device otion 14:20: [id number] present 00 Elimination diarrhea Eliminatio Resolve 2015-06-29 Martina n d 06-24 14:20:00 [place] 10:15: [id number] 00 Safety risk for Safety Resolve 2015-06-29 Martina hospitaliza d 06-24 14:20:00 [place] tion 10:15: [id number] 00 Safety can be left Safety Resolve 2015-07-02 Rubén alone for d 06-28 15:15:00 Que only short 14:20: [id number] periods 00 Bed mobility/tr PT/OT: Bed Resolve 2015-07-02 Rubén Mobility/Tr ansfer Mobility/T d 06-28 15:15:00 Que ansfer device ransfer 14:20: [id number] present 00 Bed transfer PT/OT: Bed Resolve 2015-06-29 Rubén Mobility/Tr deficit: Mobility/T d 06-28 14:20:00 Que ansfer sit/stand ransfer 14:20: [id number] 00 Endo/Nito knowledge/s Endo/Nito Resolve 2015-07-05 Paula kill d 07-01 15:15:00 Eri deficit: pt 13:30: [id number] 00 Endo/Nito knowledge/s Endo/Nito Resolve 2015-07-05 Paula kill d 07-01 15:15:00 Eri deficit: cg 13:30: [id number] 00 Endo/Nito knowledge/s Endo/Nito Resolve 2015-07-05 Paula kill d 07-01 15:15:00 Eri deficit 13:30: [id number] hypo/hyperg 00 lycemia: pt Endo/Nito knowledge/s Endo/Nito Resolve 2015-07-05 Paula kill d 07-01 15:15:00 [place] deficit 13:30: [id number] hypo/hyperg 00 lycemia: cg Neuro knowledge/s Neuro/Emot Resolve 2015-07-05 Paula kill ion d 07-01 15:15:00 [place] deficit: pt 13:30: [id number] 00 Neuro seizures Neuro/Emot Resolve 2015-07-05 Paula ion d 07-01 15:15:00 [place] 13:30: [id number] 00 Safety risk for Safety Resolve 2015-07-02 Paula hospitaliza d 07-01 15:15:00 [place] tion 13:30: [id number] 00 Bed transfer PT/OT: Bed Resolve 2015-07-02 Rubén Mobility/Tr deficit: Mobility/T d 07-01 15:15:00 Que ansfer sit/stand ransfer 15:15: [id number] 00 Gait/Locomo gait PT/OT: Resolve 2015-07-02 Rubén tion assistive Gait/Locom d 07-01 15:15:00 Que problems device otion 15:15: [id number] present 00 Gait/Locomo knowledge/s PT/OT: Resolve 2015-07-02 Rubén tion kill Gait/Locom d 07-01 15:15:00 Que problems deficit: pt otion 15:15: [id number] 00 Gait/Locomo gait PT/OT: Resolve 2015-07-02 Rubén tion deficit Gait/Locom d 07-01 15:15:00 Que problems otion 15:15: [id number] 00 Bed transfer PT/OT: Bed Resolve 2015-07-05 Rubén Mobility/Tr deficit: Mobility/T d 07-04 15:15:00 Que ansfer sit/stand ransfer 15:15: [id number] 00 Bed mobility/tr PT/OT: Bed Resolve 2015-07-05 Rubén Mobility/Tr ansfer Mobility/T d 07-04 15:15:00 Que ansfer device ransfer 15:15: [id number] present 00 Balance/End knowledge/s PT/OT: Resolve 2015-07-09 Rubén urance kill Balance/En d 07-04 14:30:00 Que deficit: pt durance 15:15: [id number] 00 Balance/End endurance PT/OT: Resolve 2015-07-05 Rubén urance deficit Balance/En d 07-04 15:15:00 Que durance 15:15: [id number] 00 Gait/Locomo gait PT/OT: Resolve 2015-07-05 Rubén tion assistive Gait/Locom d 07-04 15:15:00 Que problems device otion 15:15: [id number] present 00 Gait/Locomo knowledge/s PT/OT: Resolve 2015-07-05 Rubén tion kill Gait/Locom d - 15:15:00 Que problems deficit: pt otion 15:15: [id number] 00 Gait/Locomo gait PT/OT: Resolve 2015-07-05 Rubén tion deficit Gait/Locom d -14 15:15:00 Que problems otion 15:15: [id number] 00 Bed transfer PT/OT: Bed Resolve 2015-07-11 Rubén Mobility/Tr deficit: Mobility/T d 07-08 14:45:00 Que ansfer sit/stand ransfer 14:30: [id number] 00 Balance/End endurance PT/OT: Resolve 2015-07-09 Rubén urance deficit Balance/En d 07-08 14:30:00 Que durance 14:30: [id number] 00 Gait/Locomo gait PT/OT: Resolve 2015-07-09 Rubén tion assistive Gait/Locom d 07-08 14:30:00 Que problems device otion 14:30: [id number] present 00 Gait/Locomo knowledge/s PT/OT: Resolve 2015-07-09 Rubén tion kill Gait/Locom d 07-08 14:30:00 Que problems deficit: pt otion 14:30: [id number] 00 Gait/Locomo gait PT/OT: Resolve 2015-07-09 Rubén tion deficit Gait/Locom d 07-08 14:30:00 Que problems otion 14:30: [id number] 00 Test/Treatm venipunctur Test/Injec Resolve 2015-07-16 Paula ent e ordered t/Sebastien d 07-09 14:00:00 Eri [id number] Gait/Locomo gait PT/OT: Resolve 2015-07-11 Rubén tion deficit Gait/Locom d 07-10 14:45:00 Que problems otion 14:45: [id number] 00 Gait/Locomo knowledge/s PT/OT: Resolve 2015-07-11 Rubén tion kill Gait/Locom d 07-10 14:45:00 Que problems deficit: pt otion 14:45: [id number] 00 Respiratory lung sounds Respirator Resolve 2015-07-16 Kavon deficit y d 07-11 14:00:00 [place] 09:00: [id number] 00 Respiratory oxygen Respirator Unknown Kavon treatments y 07-11 [place] in home 09:00: [id number] 00 Respiratory dyspnea Respirator Unknown Kavon present y 07-11 [place] 09:00: [id number] 00 Endo/Nito knowledge/s Endo/Nito Resolve 2015-07-16 Kavon kill d 07-11 14:00:00 [place] deficit: cg 09:00: [id number] 00 Endo/Nito knowledge/s Endo/Nito Resolve 2015-07-16 Kavon kill d 07-11 14:00:00 [place] deficit 09:00: [id number] hypo/hyperg 00 lycemia: pt Sensory impaired Sensory Resolve 2015-07-16 Kavon vision d 07-11 14:00:00 [place] 09:00: [id number] 00 Neuro seizures Neuro/Emot Resolve 2015-07-16 Kavon ion d 07-11 14:00:00 [place] 09:00: [id number] 00 Medication oral med Meds Unknown Kavon assistance 07-11 [place] required 09:00: [id number] 00 Musculoskel knowledge/s Musculoske Resolve 2015-07-16 Kavon etal kill letal d 07-11 14:00:00 [place] deficit: pt 09:00: [id number] 00 Psych psych risk Psych Resolve 2015-07-16 Kavon Problems factors d 07-11 14:00:00 [place] present 09:00: [id number] 00 Elimination constipatio Eliminatio Resolve 2015-07-26 Martina n n d 07-15 15:15:00 [place] 09:00: [id number] 00 Safety risk for Safety Resolve 2015-08-07 Rubén hospitaliza d 07-15 14:15:00 Que tion 14:00: [id number] 00 Bed transfer PT/OT: Bed Resolve 2015-07-16 Rubén Mobility/Tr deficit: Mobility/T d 07-15 14:00:00 Que ansfer sit/stand ransfer 14:00: [id number] 00 Gait/Locomo gait PT/OT: Resolve 2015-07-16 Rubén tion deficit Gait/Locom d 07-15 14:00:00 Que problems otion 14:00: [id number] 00 Gait/Locomo knowledge/s PT/OT: Resolve 2015-07-16 Rubén tion kill Gait/Locom d 07-15 14:00:00 Que problems deficit: pt otion 14:00: [id number] 00 Test/Treatm venipunctur Test/Injec Active Paula ent e ordered t/Sebastien 07-17 [place] [id number] Pain frequent Pain Mgmt Unknown Asra pain 07-20 Charli 11:00: [id number] 00 Respiratory oxygen Respirator Unknown Sara treatments y 07-20 Charli in home 11:00: [id number] 00 Respiratory lung sounds Respirator Resolve 2015-08-07 Sara deficit y d 07-20 14:15:00 Charli 11:00: [id number] 00 Endo/Nito diabetic Endo/Nito Resolve 2015-08-15 Sara foot care d 07-20 15:30:00 Charli 11:00: [id number] 00 Endo/Nito knowledge/s Endo/Nito Resolve 2015-08-15 Sara kill d 07-20 15:30:00 Augustin deficit 11:00: [id number] hypo/hyperg 00 lycemia: pt Endo/Nito insulin Endo/Nito Resolve 2016-12-09 Sara admn d 07-20 12:18:00 Augustin dependence 11:00: [id number] 00 Endo/Nito knowledge/s Endo/Nito Resolve 2015-08-15 Sara kill d 07-20 15:30:00 Charli deficit: pt 11:00: [id number] 00 Endo/Nito knowledge/s Endo/Nito Resolve 2015-08-15 Sara kill d 07-20 15:30:00 Charli deficit: cg 11:00: [id number] 00 Integument skin Integument Resolve 2015-08-07 Sara integrity d 07-20 14:15:00 Augustin risk 11:00: [id number] 00 Integument other wound Integument Resolve 2015-08-07 Sara present d 07-20 14:15:00 Augustin 11:00: [id number] 00 Neuro seizures Neuro/Emot Resolve 2015-08-07 Sara ion d 07-20 14:15:00 Augustin 11:00: [id number] 00 Neuro confusion Neuro/Emot Resolve 2015-08-07 Sara present ion d 07-20 14:15:00 Augustin 11:00: [id number] 00 Neuro anxiety Neuro/Emot Resolve 2015-08-07 Sara present ion d 07-20 14:15:00 Augustin 11:00: [id number] 00 Neuro depressive Neuro/Emot Resolve 2015-08-07 Sara feelings ion d 07-20 14:15:00 Augustin present 11:00: [id number] 00 Activity ADL Activity Unknown Sara assistance 07-20 Charli required 11:00: [id number] 00 Safety fall risk Safety Resolve 2015-08-07 Sara factor d 07-20 14:15:00 Augustin present 11:00: [id number] 00 Medication oral med Meds Resolve 2016-01-08 Sara assistance d 07-20 11:20:00 Charli required 11:00: [id number] 00 Medication injectable Meds Resolve 2016-09-15 Sara med d 07-20 09:00:00 Charli assistance 11:00: [id number] required 00 Musculoskel knowledge/s Musculoske Resolve 2015-08-07 Sara etal kill letal d 07-20 14:15:00 Charli deficit: pt 11:00: [id number] 00 Musculoskel transfer Musculoske Unknown Sara etal assistance letal 07-20 Charli required 11:00: [id number] 00 Bed transfer PT/OT: Bed Resolve 2015-07-26 Rubén Mobility/Tr deficit: Mobility/T d 07-25 15:15:00 Que mack sit/stand ransfer 15:15: [id number] 00 Gait/Locomo gait PT/OT: Resolve 2015-07-26 Rubén tion assistive Gait/Locom d 07-25 15:15:00 Que problems device otion 15:15: [id number] present 00 Gait/Locomo gait PT/OT: Resolve 2015-07-26 Rubén tion deficit Gait/Locom d 07-25 15:15:00 Que problems otion 15:15: [id number] 00 Gait/Locomo knowledge/s PT/OT: Resolve 2015-07-26 Rubén tion kill Gait/Locom d 07-25 15:15:00 Que problems deficit: pt otion 15:15: [id number] 00 Bed transfer PT/OT: Bed Resolve 2015-08-07 Rubén Mobility/Tr deficit: Mobility/T d 07-29 14:15:00 Que ansfer sit/stand ransfer 14:45: [id number] 00 Gait/Locomo knowledge/s PT/OT: Resolve 2015-07-30 Rubén tion kill Gait/Locom d 07-29 14:45:00 Que problems deficit: pt otion 14:45: [id number] 00 Gait/Locomo gait PT/OT: Resolve 2015-07-30 Rubén tion assistive Gait/Locom d 07-29 14:45:00 Que problems device otion 14:45: [id number] present 00 Gait/Locomo gait PT/OT: Resolve 2015-07-30 Rubén tion deficit Gait/Locom d 07-29 14:45:00 Que problems otion 14:45: [id number] 00 Respiratory dyspnea Respirator Unknown Paula present y 08-01 Eri 12:00: [id number] 00 Elimination urinary Eliminatio Resolve 2015-08-02 Paula incontinenc n d 08-01 12:00:00 Eri gaffney 12:00: [id number] 00 Neuro impaired Neuro/Emot Resolve 2015-08-07 Paula decision-ma ion d 08-01 14:15:00 Eri ibanez 12:00: [id number] 00 Musculoskel requires Musculoske Unknown Paula etal human letal 08-01 [place] assist to 12:00: [id number] leave home 00 Elimination urinary Eliminatio Resolve 2015-08-15 Rubén incontinenc n d 08-06 15:30:00 Que e 14:15: [id number] 00 Gait/Locomo gait PT/OT: Resolve 2015-08-10 Rubén tion assistive Gait/Locom d 08-06 13:10:00 Que problems device otion 14:15: [id number] present 00 Gait/Locomo knowledge/s PT/OT: Resolve 2015-08-10 Rubén tion kill Gait/Locom d 08-06 13:10:00 Que problems deficit: pt otion 14:15: [id number] 00 Gait/Locomo gait PT/OT: Resolve 2015-08-10 Rubén tion deficit Gait/Locom d 08-06 13:10:00 Que problems otion 14:15: [id number] 00 Safety risk for Safety Resolve 2015-08-15 Rubén hospitaliza d 08-09 15:30:00 Que tion 13:10: [id number] 00 Bed transfer PT/OT: Bed Resolve 2015-08-10 Rubén Mobility/Tr deficit: Mobility/T d 08-09 13:10:00 Que ansfer sit/stand ransfer 13:10: [id number] 00 Bed transfer PT/OT: Bed Resolve 2015-08-15 Rubén Mobility/Tr deficit: Mobility/T d 08-14 15:30:00 Que ansfer sit/stand ransfer 15:30: [id number] 00 Gait/Locomo gait PT/OT: Resolve 2015-08-15 Rubén tion assistive Gait/Locom d 08-14 15:30:00 Que problems device otion 15:30: [id number] present 00 Gait/Locomo knowledge/s PT/OT: Resolve 2015-08-15 Rubén tion kill Gait/Locom d 08-14 15:30:00 Que problems deficit: pt otion 15:30: [id number] 00 Gait/Locomo gait PT/OT: Resolve 2015-08-15 Rubén tion deficit Gait/Locom d 08-14 15:30:00 Que problems otion 15:30: [id number] 00 Safety risk for Safety Resolve 2015-08-16 Paula hospitaliza d 08-15 16:45:00 [place] tion 12:30: [id number] 00 Bed transfer PT/OT: Bed Resolve 2015-08-16 Rubén Mobility/Tr deficit: Mobility/T d 08-15 16:45:00 Que ansfer sit/stand ransfer 16:45: [id number] 00 Gait/Locomo gait PT/OT: Resolve 2015-08-16 Rubén tion deficit Gait/Locom d 08-15 16:45:00 Que problems otion 16:45: [id number] 00 Safety risk for Safety Resolve 2015-08-24 Rubén hospitaliza d 08-21 15:30:00 Que tion 14:45: [id number] 00 Bed transfer PT/OT: Bed Resolve 2015-08-22 Rubén Mobility/Tr deficit: Mobility/T d 08-21 14:45:00 Que ansfer sit/stand ransfer 14:45: [id number] 00 Gait/Locomo gait PT/OT: Resolve 2015-08-22 Rubén tion assistive Gait/Locom d 08-21 14:45:00 Que problems device otion 14:45: [id number] present 00 Gait/Locomo gait PT/OT: Resolve 2015-08-22 Rubén tion deficit Gait/Locom d 08-21 14:45:00 Que problems otion 14:45: [id number] 00 Bed transfer PT/OT: Bed Resolve 2015-08-24 Rubén Mobility/Tr deficit: Mobility/T d 08-23 15:30:00 Que ansfer sit/stand ransfer 15:30: [id number] 00 Gait/Locomo gait PT/OT: Resolve 2015-08-24 Rubén tion assistive Gait/Locom d 08-23 15:30:00 Que problems device otion 15:30: [id number] present 00 Gait/Locomo gait PT/OT: Resolve 2015-08-24 Rubén tion deficit Gait/Locom d 08-23 15:30:00 Que problems otion 15:30: [id number] 00 Safety risk for Safety Resolve 2015-08-31 [facility] 15:15:00 [place] tion 14:45: [id number] 00 Bed transfer PT/OT: Bed Resolve 2015-09-04 Rubén Mobility/Tr deficit: Mobility/T d 08-30 14:25:00 Que ansfer sit/stand ransfer 15:15: [id number] 00 Gait/Locomo gait PT/OT: Resolve 2015-08-31 Rubén tion assistive Gait/Locom d 6 15:15:00 Que problems device otion 15:15: [id number] present 00 Gait/Locomo gait PT/OT: Resolve 2015-08-31 Rubén tion deficit Gait/Locom d 08-30 15:15:00 Que problems otion 15:15: [id number] 00 Respiratory lung sounds Respirator Resolve 2015-10-22 Martina deficit y d 6- 10:30:00 [place] 11:30: [id number] 00 Safety risk for Safety Resolve 2015-09-06 Martina hospitaliza d 6- 16:15:00 [place] tion 11:30: [id number] 00 Gait/Locomo gait PT/OT: Resolve 2015-09-04 Rubén tion assistive Gait/Locom d 09-03 14:25:00 Que problems device otion 14:25: [id number] present 00 Gait/Locomo gait PT/OT: Resolve 2015-09-04 Rubén tion deficit Gait/Locom d 09-03 14:25:00 Que problems otion 14:25: [id number] 00 Bed transfer PT/OT: Bed Resolve 2015-09-06 Rubén Mobility/Tr deficit: Mobility/T d 09-05 16:15:00 Que ansfer sit/stand ransfer 16:15: [id number] 00 Gait/Locomo gait PT/OT: Resolve 2015-09-06 Rubén tion assistive Gait/Locom d 09-05 16:15:00 Que problems device otion 16:15: [id number] present 00 Gait/Locomo gait PT/OT: Resolve 2015-09-06 Rubén tion deficit Gait/Locom d 09-05 16:15:00 Que problems otion 16:15: [id number] 00 Safety risk for Safety Resolve 2015-09-10 Rubén hospitaliza d 09-09 15:15:00 Que tion 15:15: [id number] 00 Bed transfer PT/OT: Bed Resolve 2015-09-10 Rubén Mobility/Tr deficit: Mobility/T d 09-09 15:15:00 Que ansfer sit/stand ransfer 15:15: [id number] 00 Gait/Locomo gait PT/OT: Resolve 2015-09-10 Rubén tion assistive Gait/Locom d 09-09 15:15:00 Que problems device otion 15:15: [id number] present 00 Gait/Locomo gait PT/OT: Resolve 2015-09-10 Rubén tion deficit Gait/Locom d 09-09 15:15:00 Que problems otion 15:15: [id number] 00 Safety risk for Safety Resolve 2015-09-17 Rubén hospitaliza d 09-12 15:15:00 Que tion 14:45: [id number] 00 Bed transfer PT/OT: Bed Resolve 2015-09-17 Rubén Mobility/Tr deficit: Mobility/T d 09-12 15:15:00 Que ansfer sit/stand ransfer 14:45: [id number] 00 Gait/Locomo gait PT/OT: Resolve 2015-09-17 Rubén tion assistive Gait/Locom d 09-12 15:15:00 Que problems device otion 14:45: [id number] present 00 Gait/Locomo gait PT/OT: Resolve 2015-09-17 Rubén tion deficit Gait/Locom d 09-12 15:15:00 Que problems otion 14:45: [id number] 00 Safety risk for Safety Resolve 2015-09-25 Rubén hospitaliza d 09-19 14:15:00 Que tion 14:45: [id number] 00 Bed transfer PT/OT: Bed Resolve 2015-09-20 Rubén Mobility/Tr deficit: Mobility/T d 09-19 14:45:00 Que ansfer sit/stand ransfer 14:45: [id number] 00 Gait/Locomo gait PT/OT: Resolve 2015-09-20 Rubén tion assistive Gait/Locom d 09-19 14:45:00 Que problems device otion 14:45: [id number] present 00 Gait/Locomo gait PT/OT: Resolve 2015-09-20 Rubén tion deficit Gait/Locom d 09-19 14:45:00 Que problems otion 14:45: [id number] 00 Bed transfer PT/OT: Bed Resolve 2015-09-25 Rubén Mobility/Tr deficit: Mobility/T d 09-24 14:15:00 Que ansfer sit/stand ransfer 14:15: [id number] 00 Bed bed PT/OT: Bed Resolve 2015-09-25 Rubén Mobility/Tr mobility Mobility/T d 09-24 14:15:00 Que ansfer deficit ransfer 14:15: [id number] Safety risk for Safety Resolve 2015-09-27 Rubén hospitaliza d 09-26 14:00:00 Que tion 14:00: [id number] 00 Bed transfer PT/OT: Bed Resolve 2015-09-27 Rubén Mobility/Tr deficit: Mobility/T d 09-26 14:00:00 Que ansfer sit/stand ransfer 14:00: [id number] Gait/Locomo gait PT/OT: Resolve 2015-09-27 Rubén tion assistive Gait/Locom d 09-26 14:00:00 Que problems device otion 14:00: [id number] present 00 Gait/Locomo gait PT/OT: Resolve 2015-09-27 Rubén tion deficit Gait/Locom d 09-26 14:00:00 Que problems otion 14:00: [id number] Safety risk for Safety Resolve 2015-10-22 Martina hospitaliza d 09-30 10:30:00 Sinnigen tion 09:30: [id number] Bed transfer PT/OT: Bed Resolve 2015-10-03 Rubén Mobility/Tr deficit: Mobility/T d 10-01 12:45:00 Que ansfer sit/stand ransfer 14:00: [id number] 00 Gait/Locomo gait PT/OT: Resolve 2015-10-02 Rubén tion assistive Gait/Locom d 7-12 14:00:00 Que problems device otion 14:00: [id number] present 00 Gait/Locomo knowledge/s PT/OT: Resolve 2015-10-02 Rubén tion kill Gait/Locom d 10-01 14:00:00 Que problems deficit: pt otion 14:00: [id number] 00 Gait/Locomo gait PT/OT: Resolve 2015-10-02 Rubén tion deficit Gait/Locom d 10-01 14:00:00 Que problems otion 14:00: [id number] 00 Respiratory oxygen Respirator Unknown Paula treatments y 7- [place] in home 10:00: [id number] 00 Respiratory dyspnea Respirator Unknown Paula present y 10-02 [place] 10:00: [id number] 00 Neuro impaired Neuro/Emot Resolve 2015-10-29 Paula decision-ma ion d 7-13 10:00:00 Eri marcelle 10:00: [id number] 00 Neuro memory Neuro/Emot Resolve 2015-11-19 Paula deficit ion d 13 10:00:00 [place] needing 10:00: [id number] supervision 00 Activity ADL Activity Resolve 2016-02-18 Paula assistance d 10-02 09:30:00 Eri required 10:00: [id number] 00 Safety fall risk Safety Resolve 2015-10-22 Paula factor d -13 10:30:00 Eri present 10:00: [id number] Safety can be left Safety Resolve 2015-10-22 Paula alone for d 10-02 10:30:00 Eri only short 10:00: [id number] periods 00 Musculoskel requires Musculoske Resolve 2016-07-14 Paula etal human letal d 10-02 09:45:00 Eri assist to 10:00: [id number] leave home 00 Gait/Locomo gait PT/OT: Resolve 2015-10-03 Rubén tion assistive Gait/Locom d 7- 12:45:00 Que problems device otion 12:45: [id number] present 00 Gait/Locomo knowledge/s PT/OT: Resolve 2016-0 2015-10-03 Rubén tion kill Gait/Locom d 10-02 12:45:00 Que problems deficit: pt otion 12:45: [id number] 00 Gait/Locomo gait PT/OT: Resolve 2015-10-03 Rubén tion deficit Gait/Locom d 10-02 12:45:00 Que problems otion 12:45: [id number] 00 Bed transfer PT/OT: Bed Resolve 2015-10-08 Rubén Mobility/Tr deficit: Mobility/T d 10-07 14:45:00 Que ansfer sit/stand ransfer 14:45: [id number] 00 Gait/Locomo knowledge/s PT/OT: Resolve 2015-10-08 Rubén tion kill Gait/Locom d 10-07 14:45:00 Que problems deficit: pt otion 14:45: [id number] 00 Gait/Locomo gait PT/OT: Resolve 2015-10-08 Rubén tion deficit Gait/Locom d 10-07 14:45:00 Que problems otion 14:45: [id number] 00 Bed transfer PT/OT: Bed Resolve 2015-10-11 Rubén Mobility/Tr deficit: Mobility/T d 10-10 14:30:00 Que ansfer sit/stand ransfer 14:30: [id number] 00 Gait/Locomo gait PT/OT: Resolve 2015-10-11 Rubén tion assistive Gait/Locom d 10-10 14:30:00 Que problems device otion 14:30: [id number] present 00 Gait/Locomo knowledge/s PT/OT: Resolve 2015-10-11 Rubén tion kill Gait/Locom d 10-10 14:30:00 Que problems deficit: pt otion 14:30: [id number] 00 Gait/Locomo gait PT/OT: Resolve 2015-10-11 Rubén tion deficit Gait/Locom d 10-10 14:30:00 Que problems otion 14:30: [id number] 00 Respiratory dyspnea Respirator Unknown Analilia present y 10-14 [place] 09:45: [id number] 00 Safety structural Safety Resolve 2015-10-22 Analilia barriers d 10-14 10:30:00 [place] present 09:45: [id number] 00 Musculoskel transfer Musculoske Resolve 2016-07-14 Analilia etal assistance letal d 10-14 09:45:00 [place] required 09:45: [id number] 00 Musculoskel requires Musculoske Resolve 2016-07-14 Analilia etal special letal d 10-14 09:45:00 [place] transportat 09:45: [id number] ion 00 Bed transfer PT/OT: Bed Resolve 2015-10-18 Rubén Mobility/Tr deficit: Mobility/T d 10-14 14:00:00 Que ansfer sit/stand ransfer 12:50: [id number] 00 Gait/Locomo gait PT/OT: Resolve 2015-10-15 Rubén tion assistive Gait/Locom d 10-14 12:50:00 Que problems device otion 12:50: [id number] present 00 Gait/Locomo knowledge/s PT/OT: Resolve 2015-10-15 Rubén tion kill Gait/Locom d 10-14 12:50:00 Que problems deficit: pt otion 12:50: [id number] 00 Gait/Locomo gait PT/OT: Resolve 2015-10-15 Rubén tion deficit Gait/Locom d 10-14 12:50:00 Que problems otion 12:50: [id number] 00 Gait/Locomo gait PT/OT: Resolve 2015-10-18 Rubén tion assistive Gait/Locom d 10-17 14:00:00 Que problems device otion 14:00: [id number] present 00 Gait/Locomo knowledge/s PT/OT: Resolve 2015-10-18 Rubén tion kill Gait/Locom d 10-17 14:00:00 Que problems deficit: pt otion 14:00: [id number] 00 Gait/Locomo gait PT/OT: Resolve 2015-10-18 Rubén tion deficit Gait/Locom d 10-17 14:00:00 Que problems otion 14:00: [id number] 00 Respiratory CPAP Respirator Unknown [facility] treatments y 10-21 [place] in home 10:30: [id number] 00 Endo/Nito glucose Endo/Nito Resolve 2015-11-19 [facility] tolerance d 10-21 10:00:00 Greg problem 10:30: [id number] 00 Elimination urinary Eliminatio Resolve 2015-11-23 [facility] incontinenc n d 10-21 08:55:00 Greg e 10:30: [id number] 00 Elimination constipatio Eliminatio Resolve 2015-11-23 [facility] n n d 10-21 08:55:00 Greg 10:30: [id number] 00 Safety sanitation Safety Resolve 2015-10-22 [facility] hazards d 10-21 10:30:00 Greg present 10:30: [id number] 00 Safety risk for Safety Resolve 2015-10-29 Rub[facility] hospitaliza d 10-22 10:00:00 Que tion 13:15: [id number] 00 Gait/Locomo gait PT/OT: Resolve 2015-10-23 Rubén tion assistive Gait/Locom d 10-22 13:15:00 Que problems device otion 13:15: [id number] present 00 Gait/Locomo knowledge/s PT/OT: Resolve 2015-10-23 Rubén tion kill Gait/Locom d 10-22 13:15:00 Que problems deficit: pt otion 13:15: [id number] 00 Gait/Locomo gait PT/OT: Resolve 2015-10-23 Rubén tion deficit Gait/Locom d 10-22 13:15:00 Que problems otion 13:15: [id number] 00 Gait/Locomo gait PT/OT: Resolve 2015-10-26 Rubén tion assistive Gait/Locom d 10-25 12:15:00 Que problems device otion 12:15: [id number] present 00 Gait/Locomo knowledge/s PT/OT: Resolve 2015-10-26 Rubné tion kill Gait/Locom d 10-25 12:15:00 Que problems deficit: pt otion 12:15: [id number] 00 Gait/Locomo gait PT/OT: Resolve 2015-10-26 Rubén tion deficit Gait/Locom d 10-25 12:15:00 Que problems otion 12:15: [id number] 00 Pain frequent Pain Mgmt Unknown [facility] pain 10-28 Greg 10:00: [id number] 00 Respiratory oxygen Respirator Unknown [facility] treatments y 10-28 [place] in home 10:00: [id number] 00 Neuro seizures Neuro/Emot Resolve 2015-2015-10-29 [facility] ion d 10-28 10:00:00 [place] 10:00: [id number] 00 Safety structural Safety Resolve 2015-2015-10-29 [facility] barriers d 10-28 10:00:00 [place] present 10:00: [id number] 00 Safety sanitation Safety Resolve 2015-10-29 [facility] hazards d 10-28 10:00:00 [place] present 10:00: [id number] 00 Safety fall risk Safety Resolve 2015-10-29 [facility] factor d 10-28 10:00:00 Greg present 10:00: [id number] 00 Safety can be left Safety Resolve 2015-10-29 [facility] alone for d 10-28 10:00:00 Greg only short 10:00: [id number] periods 00 Safety risk for Safety Resolve 2015-11-19 [facility] hospitaliza d 10-29 10:00:00 Que tion 13:30: [id number] 00 Gait/Locomo gait PT/OT: Resolve 2015-10-30 Rubén tion assistive Gait/Locom d 10-29 13:30:00 Que problems device otion 13:30: [id number] present 00 Gait/Locomo knowledge/s PT/OT: Resolve 2015-10-30 Rubén tion kill Gait/Locom d 10-29 13:30:00 Que problems deficit: pt otion 13:30: [id number] 00 Gait/Locomo gait PT/OT: Resolve 2015-10-30 Rubén tion deficit Gait/Locom d 10-29 13:30:00 Que problems otion 13:30: [id number] 00 Gait/Locomo gait PT/OT: Resolve 2015-11-02 Rubén tion assistive Gait/Locom d 11-01 13:15:00 Que problems device otion 13:15: [id number] present 00 Gait/Locomo knowledge/s PT/OT: Resolve 2015-2015-11-02 Rubén tion kill Gait/Locom d 11-01 13:15:00 Que problems deficit: pt otion 13:15: [id number] 00 Gait/Locomo gait PT/OT: Resolve 2015-11-02 Rubén tion deficit Gait/Locom d 11-01 13:15:00 Que problems otion 13:15: [id number] 00 Respiratory lung sounds Respirator Resolve 2015-2016-02-25 Analilia deficit y d 8 09:35:00 [place] 16:00: [id number] 00 Elimination urinary Eliminatio Resolve 2015-11-23 Analilia frequency n d 11-04 08:55:00 [place] 16:00: [id number] 00 Safety fall risk Safety Resolve 2015-11-19 Analilia factor d 815 10:00:00 [place] present 16:00: [id number] 00 Gait/Locomo gait PT/OT: Resolve 2015-11-06 Rubén tion assistive Gait/Locom d 11-05 14:05:00 Que problems device otion 14:05: [id number] present 00 Gait/Locomo knowledge/s PT/OT: Resolve 2015-11-06 Rubén tion kill Gait/Locom d 11-05 14:05:00 Que problems deficit: pt otion 14:05: [id number] 00 Gait/Locomo gait PT/OT: Resolve 2015-11-06 Rubén tion deficit Gait/Locom d 11-05 14:05:00 Que problems otion 14:05: [id number] 00 Endo/Nito insulin Endo/Nito Unknown [facility] admn 11-18 [place] dependence 10:00: [id number] 00 Endo/Nito glucose Endo/Nito Resolve 2017-03-24 [facility] testing d 11-18 14:32:00 [place] dependence 10:00: [id number] 00 Neuro impaired Neuro/Emot Resolve 2016-01-14 [facility] decision-ma ion d 11-18 09:45:00 Greg marcelle 10:00: [id number] 00 Neuro seizures Neuro/Emot Resolve 2015-11-19 [facility] ion d 11-18 10:00:00 [place] 10:00: [id number] 00 Safety sanitation Safety Resolve 2015-12-24 [facility] hazards d 11-18 09:30:00 [place] present 10:00: [id number] 00 Neuro memory Neuro/Emot Unknown [facility] deficit ion 11-18 [place] needing 12:15: [id number] supervision 00 Safety risk for Safety Unknown [facility] hospitaliza 11-18 [place] tion 12:15: [id number] 00 Neuro seizures Neuro/Emot Resolve 2015-12-10 Paula ion d 11-22 09:45:00 Eri 08:55: [id number] 00 Safety risk for Safety Resolve 2015-12-10 Paula hospitaliza d 11-22 09:45:00 [place] tion 08:55: [id number] 00 Infection s/s of Infection Resolve 2017-03-24 [...] 11-27 14:00:00 Que problems device otion 14:15: [id number] present 00 Gait/Locomo knowledge/s PT/OT: Resolve 2015-12-05 Rubén tion kill Gait/Locom d 11-27 14:00:00 Que problems deficit: pt otion 14:15: [id number] 00 Gait/Locomo gait PT/OT: Resolve 2015-12-05 Rubén tion deficit Gait/Locom d 11-27 14:00:00 Que problems otion 14:15: [id number] 00 Sensory impaired Sensory Resolve 2016-09-15 Paula vision d 12-02 09:00:00 [place] 11:06: [id number] 00 Elimination recurring Eliminatio Resolve 2015-12-24 Paula UTI n d 12-02 09:30:00 [place] 11:06: [id number] 00 Safety fall risk Safety Resolve 2015-12-10 Paula factor d 12-02 09:45:00 [place] present 11:06: [id number] 00 Bed transfer PT/OT: Bed Resolve 2015-12-05 Rubén Mobility/Tr deficit: Mobility/T d 12-02 14:00:00 Que ansfer sit/stand ransfer 15:00: [id number] 00 Bed bed PT/OT: Bed Resolve 2015-12-05 Rubén Mobility/Tr mobility Mobility/T d 12-02 14:00:00 Que ansfer deficit ransfer 15:00: [id number] 00 Endo/Nito glucose Endo/Nito Resolve 2015-12-10 [facility] tolerance d 12-09 09:45:00 [place] problem 09:45: [id number] 00 Elimination constipatio Eliminatio Resolve 2016-03-03 [facility] n n d 12-09 10:10:00 Greg 09:45: [id number] 00 Elimination urinary Eliminatio Resolve 2015-12-17 [facility] incontinenc n d 12-09 09:30:00 [place] e 09:45: [id number] 00 Safety structural Safety Resolve 2015-12-24 [facility] barriers d 12-09 09:30:00 [place] present 09:45: [id number] 00 Safety risk for Safety Resolve 2015-12-24 [facility] hospitaliza d 12-10 09:30:00 [place] tion 11:20: [id number] 00 Bed transfer PT/OT: Bed Resolve 2016-01-04 Rubén Mobility/Tr deficit: Mobility/T d 12-12 15:15:00 Que ansfer sit/stand ransfer 12:45: [id number] 00 Gait/Locomo gait PT/OT: Resolve 2015-12-21 Rubén tion assistive Gait/Locom d 12-12 14:30:00 Que problems device otion 12:45: [id number] present 00 Gait/Locomo knowledge/s PT/OT: Resolve 2015-12-21 Rubén tion kill Gait/Locom d 12-12 14:30:00 Que problems deficit: pt otion 12:45: [id number] 00 Gait/Locomo gait PT/OT: Resolve 2015-12-21 Rubén tion deficit Gait/Locom d 12-12 14:30:00 Que problems otion 12:45: [id number] 00 Endo/Nito glucose Endo/Nito Resolve 2016-01-14 [facility] tolerance d 12-16 09:45:00 [place] problem 09:30: [id number] 00 Sensory impaired Sensory Resolve 2016-09-15 [facility] hearing d 12-16 09:00:00 [place] 09:30: [id number] 00 Elimination knowledge/s Eliminatio Resolve 2015-12-17 [facility] kill n d 12-16 09:30:00 [place] deficit: pt 09:30: [id number] 00 Elimination knowledge/s Eliminatio Resolve 2015-12-17 [facility] kill n d 12-16 09:30:00 [place] deficit: cg 09:30: [id number] 00 Safety fall risk Safety Resolve 2015-12-24 [facility] factor d 12-16 09:30:00 Greg present 09:30: [id number] 00 Elimination urinary Eliminatio Resolve 2015-032016-01-14 [facility] incontinenc n d 0 09:45:00 [place] e 09:30: [id number] 00 Elimination urinary Eliminatio Resolve 2015-032016-01-14 [facility] frequency n d 0 09:45:00 [place] 09:30: [id number] 00 Elimination knowledge/s Eliminatio Resolve 2015-032015-12-24 [place] kill n d 0 09:30:00 [place] deficit: pt 09:30: [id number] 00 Safety risk for Safety Resolve 2015-032016-01-08 [facility] hospitaliza d 0 11:20:00 Que tion 14:30: [id number] 00 Gait/Locomo gait PT/OT: Resolve 2015-032016-01-04 Rubén tion assistive Gait/Locom d 0-04 15:15:00 Que problems device otion 14:30: [id number] present 00 Gait/Locomo knowledge/s PT/OT: Resolve 2015-032016-01-04 Rubén tion kill Gait/Locom d 0-04 15:15:00 Que problems deficit: pt otion 14:30: [id number] 00 Gait/Locomo gait PT/OT: Resolve 2015-032016-01-04 Rubén tion deficit Gait/Locom d 0-04 15:15:00 Que problems otion 14:30: [id number] 00 Safety can be left Safety Resolve 2015-032016-02-04 Paula alone for d 0-07 09:45:00 Eri only short 08:00: [id number] periods 00 Endo/Nito diabetic Endo/Nito Resolve 2015-032016-01-14 Paula foot care d 0-13 09:45:00 Eri 12:00: [id number] 00 Neuro confusion Neuro/Emot Resolve 2015-032016-01-14 Paula present ion d 0-13 09:45:00 Eri 12:00: [id number] 00 Neuro anxiety Neuro/Emot Resolve 2015-032016-01-14 Paula present ion d 0-13 09:45:00 [place] 12:00: [id number] 00 Neuro seizures Neuro/Emot Resolve 2015-032016-01-08 Paula ion d 0-13 11:20:00 [place] 12:00: [id number] 00 Safety fall risk Safety Resolve 2015-032016-01-08 Paula factor d 0-13 11:20:00 Eri present 12:00: [id number] 00 Medication potential Meds Resolve 2015-032016-01-08 Paula clinically d 0-13 11:20:00 [place] significant 12:00: [id number] medication 00 issue Safety structural Safety Resolve 2015-032016-01-08 [facility] barriers d 0-18 11:20:00 [place] present 11:20: [id number] 00 Safety sanitation Safety Resolve 2015-032016-01-08 [facility] hazards d 0-18 11:20:00 [place] present 11:20: [id number] 00 Safety risk for Safety Resolve 2015-032016-01-14 [facility] hospitaliza d 0-20 09:45:00 Que tion 14:15: [id number] 00 Bed transfer PT/OT: Bed Resolve 2015-032016-01-10 Rubén Mobility/Tr deficit: Mobility/T d 0-20 14:15:00 Que ansfer sit/stand ransfer 14:15: [id number] 00 Gait/Locomo gait PT/OT: Resolve 2015-032016-01-16 Rubén tion assistive Gait/Locom d 0-20 16:00:00 Que problems device otion 14:15: [id number] present 00 Gait/Locomo knowledge/s PT/OT: Resolve 2015-032016-01-16 Rubén tion kill Gait/Locom d 0-20 16:00:00 Que problems deficit: pt otion 14:15: [id number] 00 Gait/Locomo gait PT/OT: Resolve 2015-032016-01-16 Rubén tion deficit Gait/Locom d 0-20 16:00:00 Que problems otion 14:15: [id number] 00 Safety structural Safety Resolve 2015-032016-01-14 Analilia barriers d 0-21 09:45:00 [place] present 10:08: [id number] 00 Safety fall risk Safety Resolve 2015-032016-01-14 Analilia factor d 0-21 09:45:00 [place] present 10:08: [id number] 00 Bed transfer PT/OT: Bed Resolve 2015-032016-01-16 Rubén Mobility/Tr deficit: Mobility/T d 0-21 16:00:00 Que ansfer sit/stand ransfer 13:45: [id number] 00 Endo/Nito knowledge/s Endo/Nito Resolve 2015-032016-01-14 [facility] kill d 0-24 09:45:00 Greg deficit: pt 09:45: [id number] 00 Endo/Nito knowledge/s Endo/Nito Resolve 2015-032016-01-14 [facility] kill d 0-24 09:45:00 [place] deficit: cg 09:45: [id number] 00 Endo/Nito knowledge/s Endo/Nito Resolve 2015-032016-01-14 [facility] kill d 0-24 09:45:00 Greg deficit 09:45: [id number] hypo/hyperg 00 lycemia: pt Endo/Nito knowledge/s Endo/Nito Resolve 2015-032016-01-14 [facility] kill d 0-24 09:45:00 Greg deficit 09:45: [id number] hypo/hyperg 00 lycemia: cg Elimination diarrhea Eliminatio Resolve 2015-032016-03-03 [facility] n d 0 10:10:00 [place] 09:45: [id number] 00 Neuro depressive Neuro/Emot Resolve 2015-032016-01-14 [facility] feelings ion d 0 09:45:00 [place] present 09:45: [id number] 00 Safety sanitation Safety Resolve 2015-032016-01-14 [facility] hazards d 0 09:45:00 [place] present 09:45: [id number] 00 Safety risk for Safety Resolve 2015-032016-01-21 [facility] hospitaliza d 0 09:30:00 [place] tion 13:45: RN 00 Bed transfer PT/OT: Bed Resolve 2015-032016-01-17 Rub[facility] Mobility/Tr deficit: Mobility/T d 0 14:00:00 Que ansfer sit/stand ransfer 14:00: [id number] 00 Gait/Locomo gait PT/OT: Resolve 2015-032016-01-17 Rubén tion assistive Gait/Locom d 0 14:00:00 Que problems device otion 14:00: [id number] present 00 Gait/Locomo knowledge/s PT/OT: Resolve 2015-032016-01-17 Rubén tion kill Gait/Locom d 0 14:00:00 Que problems deficit: pt otion 14:00: [id number] 00 Gait/Locomo gait PT/OT: Resolve 2015-032016-01-17 Rubén tion deficit Gait/Locom d 0 14:00:00 Que problems otion 14:00: [id number] 00 Endo/Nito glucose Endo/Nito Resolve 2015-032016-01-21 [facility] tolerance d 0 09:30:00 Greg problem 09:30: [id number] 00 Endo/Nito knowledge/s Endo/Nito Resolve 2015-032016-01-21 [facility] kill d 0-31 09:30:00 [place] deficit: pt 09:30: [id number] 00 Endo/Nito knowledge/s Endo/Nito Resolve 2015-032016-01-21 [facility] kill d 0-31 09:30:00 Greg deficit 09:30: [id number] hypo/hyperg 00 lycemia: pt Endo/Nito knowledge/s Endo/Nito Resolve 2015-032016-01-21 [facility] kill d 0- 09:30:00 [place] deficit 09:30: [id number] hypo/hyperg 00 lycemia: cg Neuro memory Neuro/Emot Resolve 2015-032016-02-04 [facility] deficit ion d 0- 09:45:00 Greg needing 09:30: [id number] supervision 00 Neuro impaired Neuro/Emot Resolve 2015-032016-01-21 [facility] decision-ma ion d 0- 09:30:00 [place] marcelle 09:30: [id number] 00 Safety structural Safety Resolve 2015-032016-01-21 [facility] barriers d 0-31 09:30:00 Greg present 09:30: [id number] 00 Safety sanitation Safety Resolve 2015-032016-01-21 [facility] hazards d 0-31 09:30:00 Greg present 09:30: [id number] 00 Safety fall risk Safety Resolve 2015-032016-01-21 [facility] factor d 0-31 09:30:00 Greg present 09:30: [id number] 00 Safety risk for Safety Resolve 2015-032016-02-04 [facility] hospitaliza d 03-23 09:45:00 Que tion 14:30: [id number] 00 Bed bed PT/OT: Bed Resolve 2015-032016-01-22 Rubén Mobility/Tr mobility Mobility/T d 03-23 14:30:00 Que ansfer deficit ransfer 14:30: [id number] 00 Bed transfer PT/OT: Bed Resolve 2015-032016-01-22 Rubén Mobility/Tr deficit: Mobility/T d 03-23 14:30:00 Que poefer sit/stand ransfer 14:30: [id number] 00 Gait/Locomo gait PT/OT: Resolve 2015-032016-01-22 Rubén tion assistive Gait/Locom d 03-23 14:30:00 Que problems device otion 14:30: [id number] present 00 Gait/Locomo knowledge/s PT/OT: Resolve 2015-032016-01-22 Rubén tion kill Gait/Locom d 03-23 14:30:00 Que problems deficit: pt otion 14:30: [id number] 00 Gait/Locomo gait PT/OT: Resolve 2015-032016-01-22 Rubén tion deficit Gait/Locom d 03-23 14:30:00 Que problems otion 14:30: [id number] 00 Bed transfer PT/OT: Bed Resolve 2015-032016-01-28 Rubén Mobility/Tr deficit: Mobility/T d 03-25 14:15:00 Que ansfer sit/stand ransfer 14:15: [id number] 00 Gait/Locomo gait PT/OT: Resolve 2015-032016-01-28 Rubén tion assistive Gait/Locom d 03-25 14:15:00 Que problems device otion 14:15: [id number] present 00 Gait/Locomo knowledge/s PT/OT: Resolve 2015-032016-01-28 Rubén tion kill Gait/Locom d 03-25 14:15:00 Que problems deficit: pt otion 14:15: [id number] 00 Gait/Locomo gait PT/OT: Resolve 2015-032016-01-28 Rubén tion deficit Gait/Locom d 03-25 14:15:00 Que problems otion 14:15: [id number] 00 Bed transfer PT/OT: Bed Resolve 2015-032016-04-07 Rubén Mobility/Tr deficit: Mobility/T d 04-01 11:15:00 Que ansfer sit/stand ransfer 13:45: [id number] 00 Gait/Locomo gait PT/OT: Resolve 2015-032016-02-15 Rubén tion assistive Gait/Locom d 04-01 09:45:00 Que problems device otion 13:45: [id number] present 00 Gait/Locomo gait PT/OT: Resolve 2015-032016-02-15 Rubén tion deficit Gait/Locom d 04-01 09:45:00 Que problems otion 13:45: [id number] 00 Elimination urinary Eliminatio Resolve 2015-032016-02-04 Sonia [...] Resolve 2015-032016-02-04 [facility] tolerance d 04-05 09:45:00 [place] problem 09:45: [id number] 00 Endo/Ntio knowledge/s Endo/Nito Resolve 2015-032016-02-04 [facility] kill d 04-05 09:45:00 [place] deficit: pt 09:45: [id number] 00 Endo/Nito knowledge/s Endo/Nito Resolve 2015-032016-02-04 [facility] kill d 04-05 09:45:00 [place] deficit: cg 09:45: [id number] 00 Elimination recurring Eliminatio Resolve 2015-032016-04-07 [facility] UTI n d 04-05 10:40:00 Greg 09:45: [id number] 00 Elimination urinary Eliminatio Resolve 2015-032016-02-04 [facility] frequency n d 04-05 09:45:00 Greg 09:45: [id number] 00 Neuro impaired Neuro/Emot Resolve 2015-032016-02-18 [facility] decision-ma ion d 04-05 09:30:00 [place] marcelle 09:45: [id number] 00 Safety structural Safety Resolve 2015-032016-02-04 [facility] barriers d 04-05 09:45:00 [place] present 09:45: [id number] 00 Safety sanitation Safety Resolve 2015-032016-02-04 [facility] hazards d 04-05 09:45:00 [place] present 09:45: [id number] 00 Safety risk for Safety Resolve 2015-032016-02-18 [...] Resolve 2015-032016-02-18 [facility] tolerance d 04-19 09:30:00 [place] problem 09:30: [id number] 00 Endo/Nito knowledge/s Endo/Nito Resolve 2015-032016-02-18 [facility] kill d 04-19 09:30:00 [place] deficit: pt 09:30: [id number] 00 Endo/Nito knowledge/s Endo/Nito Resolve 2015-032016-02-18 [facility] kill d 04-19 09:30:00 Greg deficit: cg 09:30: [id number] 00 Neuro anxiety Neuro/Emot Resolve 2015-032016-02-18 [facility] present ion d 04-19 09:30:00 Greg 09:30: [id number] 00 Neuro depressive Neuro/Emot Resolve 2015-032016-02-18 [facility] feelings ion d 04-19 09:30:00 Greg present 09:30: [id number] 00 Safety structural Safety Resolve 2015-032016-02-18 [facility] barriers d 04-19 09:30:00 Greg present 09:30: [id number] 00 Safety sanitation Safety Resolve 2015-032016-02-18 [facility] hazards d 04-19 09:30:00 [place] present 09:30: [id number] 00 Safety fall risk Safety Resolve 2015-032016-02-18 [facility] factor d 04-19 09:30:00 Greg present 09:30: [id number] 00 Elimination urinary Eliminatio Resolve 2015-032016-03-03 Sonia [...] 2015-032016-12-09 [facility] n ular d 05-04 12:18:00 [place] 10:10: [id number] 00 Endo/Nito glucose Endo/Nito Resolve 2015-032016-05-19 [facility] tolerance d 05-04 09:45:00 Greg problem 10:10: [id number] 00 Endo/Nito knowledge/s Endo/Nito Resolve 2015-032016-05-19 [facility] kill d 05-04 09:45:00 Greg deficit: pt 10:10: [id number] 00 Endo/Nito knowledge/s Endo/Nito Resolve 2015-032016-05-19 [facility] kill d 05-04 09:45:00 Greg deficit: cg 10:10: [id number] 00 Endo/Nito knowledge/s Endo/Nito Resolve 2015-032016-05-19 [facility] kill d 2-12 09:45:00 [place] deficit 10:10: [id number] hypo/hyperg 00 lycemia: pt Endo/Nito knowledge/s Endo/Nito Resolve 2015-032016-05-19 [facility] kill d 2-12 09:45:00 Greg deficit 10:10: [id number] hypo/hyperg 00 lycemia: cg Nutrition knowledge/s Nutrition Resolve 2015-032016-03-25 [facility] kill d 2- 12:10:00 [place] deficit: pt 10:10: [id number] 00 Nutrition knowledge/s Nutrition Resolve 2015-032016-03-25 [facility] kill d 2- 12:10:00 Greg deficit: cg 10:10: [id number] 00 Elimination urinary Eliminatio Resolve 2015-032016-03-03 [facility] urgency n d 2- 10:10:00 [place] 10:10: [id number] 00 Elimination urinary Eliminatio Resolve 2015-032016-03-03 [facility] frequency n d 05-04 10:10:00 Greg 10:10: [id number] 00 Safety risk for Safety Resolve 2015-032016-03-18 [...] ion d 05-19 09:45:00 Greg present 09:00: [id number] 00 Neuro impaired Neuro/Emot Resolve 2015-032016-06-16 Cherrise decision-ma ion d 05-19 10:31:00 Sumner marcelle 09:00: [id number] 00 Neuro seizures Neuro/Emot Resolve 2015-032016-03-18 Cherrise ion d 05-19 09:00:00 Sumner 09:00: [id number] 00 Safety structural Safety Resolve 2015-032016-03-18 Cherrise barriers d 05-19 09:00:00 Sumner present 09:00: [id number] 00 Safety sanitation Safety Resolve 2015-032016-03-18 Cherrise hazards d 05-19 09:00:00 Sumner present 09:00: [id number] 00 Safety fall risk Safety Resolve 2015-032016-03-18 Cherrise factor d 05-19 09:00:00 Sumner present 09:00: [id number] 00 Respiratory oxygen Respirator Unknown Ashley treatments y 1-10 Vinnie in home 14:00: [id number] 00 Respiratory dyspnea Respirator Unknown Ashley present y 1-10 Vinnie 14:00: [id number] 00 Respiratory lung sounds Respirator Resolve 2016-04-07 Ashley deficit y d 1-10 10:40:00 Vinnie 14:00: [id number] 00 Elimination bowel Eliminatio Resolve 2016-07-28 Ashley incontinenc n d 1-10 10:09:00 Vinnie e 14:00: [id number] 00 Safety can be left Safety Resolve 2016-05-19 Ashley alone for d 1-10 09:45:00 Vinnie only short 14:00: [id number] 00 Respiratory CPAP Respirator Unknown Cherrise treatments y 1-16 Sumner in home 10:40: [id number] 00 Nutrition nutritional Nutrition Resolve 2016-05-19 Cherrise restriction d 1-16 09:45:00 Greg s 10:40: [id number] 00 Nutrition knowledge/s Nutrition Resolve 2016-05-19 Cherrise kill d - 09:45:00 Greg deficit: pt 10:40: [id number] 00 Nutrition knowledge/s Nutrition Resolve 2016-05-19 Cherrise kill d 1-16 09:45:00 Sumner deficit: cg 10:40: [id number] 00 Safety structural Safety Resolve 2016-04-07 Cherrise barriers d 1-16 10:40:00 Sumner present 10:40: [id number] 00 Safety sanitation Safety Resolve 2016-04-07 Cherrise hazards d -16 10:40:00 Greg present 10:40: [id number] 00 Safety fall risk Safety Resolve 2016-04-07 Cherrise factor d - 11:15:00 Greg present 10:40: [id number] 00 Safety risk for Safety Resolve 2016-04-07 [facility] hospital[facility] d 16 11:15:00 Greg tion 10:40: [id number] 00 Bed transfer PT/OT: Bed Resolve 2016-04-07 Rubén Mobility/Tr deficit: Mobility/T d 16 11:15:00 Que mack toilet/comm ransfer 11:15: [id number] ode 00 Bed transfer PT/OT: Bed Resolve 2016-04-07 Rubén Mobility/Tr deficit: Mobility/T d 16 11:15:00 Que mack shower/tub ransfer 11:15: [id number] 00 Bed transfer PT/OT: Bed Resolve 2016-04-07 Rubén Mobility/Tr deficit: Mobility/T d 04-07 11:15:00 Que mack vehicle ransfer 11:15: [id number] 00 Bed bed PT/OT: Bed Resolve 2016-04-07 Rubén Mobility/Tr mobility Mobility/T d 16 11:15:00 Que ansfer deficit ransfer 11:15: [id number] 00 Gait/Locomo knowledge/s PT/OT: Resolve 2016-04-07 Rubén tion kill Gait/Locom d 16 11:15:00 Que problems deficit: pt otion 11:15: [id number] 00 Gait/Locomo gait PT/OT: Resolve 2016-04-07 Rubén tion deficit Gait/Locom d 04-07 11:15:00 Que problems otion 11:15: [id number] 00 Gait/Locomo gait PT/OT: Resolve 2016-04-15 Rubén tion assistive Gait/Locom d 04-07 13:45:00 Que problems device otion 11:15: [id number] present 00 Respiratory dyspnea Respirator Unknown Ashley present y 04-15 Vinnie 11:00: [id number] 00 Respiratory oxygen Respirator Unknown Ashley treatments y 04-15 Vinnie in home 11:00: [id number] 00 Integument skin Integument Resolve 2016-12-09 Ashley integrity d 04-15 12:18:00 Vinnie risk 11:00: [id number] 00 Elimination urinary Eliminatio Resolve 2016-05-19 Ashley incontinenc n d 04-15 09:45:00 Vinnie e 11:00: [id number] 00 Safety risk for Safety Resolve 2016-04-21 [facility] hospital[facility] d 04-15 09:30:00 Que tion 13:45: [id number] 00 Gait/Locomo knowledge/s PT/OT: Resolve 2016-04-18 Rubén tion kill Gait/Locom d 04-15 16:00:00 Que problems deficit: pt otion 13:45: [id number] 00 Gait/Locomo gait PT/OT: Resolve 2016-04-15 Rubén tion deficit Gait/Locom d 04-15 13:45:00 Que problems otion 13:45: [id number] 00 Gait/Locomo gait PT/OT: Resolve 2016-04-18 Rubén tion assistive Gait/Locom d 04-18 16:00:00 Que problems device otion 16:00: [id number] present 00 Gait/Locomo gait PT/OT: Resolve 2016-04-18 Rubén tion deficit Gait/Locom d 04-18 16:00:00 Que problems otion 16:00: [id number] 00 Respiratory CPAP Respirator Unknown Cherrise treatments y 04-21 Sumner in home 09:30: [id number] 00 Elimination urinary Eliminatio Resolve 2016-05-19 Cherrise frequency n d 04-21 09:45:00 Sumner 09:30: [id number] 00 Elimination recurring Eliminatio Resolve 2016-05-19 Cherrise UTI n d 04-21 09:45:00 Sumner 09:30: [id number] 00 Elimination knowledge/s Eliminatio Resolve 2016-04-21 Cherrise kill n d 04-21 09:30:00 Greg deficit: pt 09:30: [id number] 00 Elimination knowledge/s Eliminatio Resolve 2016-04-21 Cherrise kill n d 04-21 09:30:00 Greg deficit: cg 09:30: [id number] 00 Safety sanitation Safety Resolve 2016-04-21 Cherrise hazards d 04-21 09:30:00 Greg present 09:30: [id number] 00 Safety fall risk Safety Resolve 2016-04-21 Cherrise factor d 04-21 09:30:00 Greg present 09:30: [id number] 00 Safety risk for Safety Resolve 2016-05-05 [facility] hospitaliza d 04-22 10:00:00 Que tion 13:45: [id number] 00 Gait/Locomo gait PT/OT: Resolve 2016-04-22 Rubén tion assistive Gait/Locom d 04-22 13:45:00 Que problems device otion 13:45: [id number] present 00 Gait/Locomo knowledge/s PT/OT: Resolve 2016-04-29 Rubén tion kill Gait/Locom d 04-22 16:00:00 Que problems deficit: pt otion 13:45: [id number] 00 Gait/Locomo gait PT/OT: Resolve 2016-04-22 Rubén tion deficit Gait/Locom d 04-22 13:45:00 Que problems otion 13:45: [id number] 00 Gait/Locomo gait PT/OT: Resolve 2016-04-29 Rubén tion assistive Gait/Locom d 04-25 16:00:00 Que problems device otion 16:00: [id number] present 00 Gait/Locomo gait PT/OT: Resolve 2016-04-29 Rubén tion deficit Gait/Locom d 2-03 16:00:00 Que problems otion 16:00: [id number] 00 Gait/Locomo gait PT/OT: Resolve 2016-05-02 Rubén tion assistive Gait/Locom d 2-10 16:40:00 Que problems device otion 16:40: [id number] present 00 Gait/Locomo gait PT/OT: Resolve 2016-05-02 Rubén tion deficit Gait/Locom d 2-10 16:40:00 Que problems otion 16:40: [id number] 00 Safety sanitation Safety Resolve 2016-06-16 Cherrise hazards d 2-13 10:31:00 Greg present 10:00: [id number] 00 Safety fall risk Safety Resolve 2016-05-05 Cherrise factor d 2-13 10:00:00 Greg present 10:00: [id number] 00 Safety risk for Safety Unknown Rub[facility] hospital[facility] 2- Que tion 17:00: [id number] 00 Gait/Locomo gait PT/OT: Resolve 2016-05-05 Rubén tion assistive Gait/Locom d 2-13 17:00:00 Que problems device otion 17:00: [id number] present 00 Gait/Locomo gait PT/OT: Resolve 2016-05-05 Rubén tion deficit Gait/Locom d 2-13 17:00:00 Que problems otion 17:00: [id number] 00 Respiratory nebulizer Respirator Resolve 2016-12-09 Ashley treatment y d 2- 12:18:00 Vinnie in home 10:00: [id number] 00 Safety risk for Safety Resolve 2016-05-19 [facility] hospital[facility] d 2-21 09:45:00 Que tion 16:00: [id number] 00 Gait/Locomo gait PT/OT: Resolve 2016-05-13 Rubén tion assistive Gait/Locom d 2-21 16:00:00 Que problems device otion 16:00: [id number] present 00 Gait/Locomo gait PT/OT: Resolve 2016-05-13 Rubén tion deficit Gait/Locom d 2-21 16:00:00 Que problems otion 16:00: [id number] 00 Gait/Locomo gait PT/OT: Resolve 2016-05-15 Rubén tion assistive Gait/Locom d 05-15 13:00:00 Que problems device otion 13:00: [id number] present 00 Gait/Locomo gait PT/OT: Resolve 2016-05-15 Rubén tion deficit Gait/Locom d 05-15 13:00:00 Que problems otion 13:00: [id number] 00 Safety fall risk Safety Resolve 2016-05-19 Cherrise factor d 05-19 09:45:00 Sumner present 09:45: [id number] 00 Gait/Locomo gait PT/OT: Resolve 2016-05-19 Rubén tion assistive Gait/Locom d 05-19 14:30:00 Que problems device otion 14:30: [id number] present 00 Gait/Locomo gait PT/OT: Resolve 2016-05-19 Rubén tion deficit Gait/Locom d 05-19 14:30:00 Que problems otion 14:30: [id number] 00 Test/Treatm tests Test/Injec Active Ashley ent ordered t/Sebastien 05-21 Vinnie [id number] Safety risk for Safety Resolve 2016-06-16 [facility] hospitaliza d 05-21 10:31:00 Quinn tion 14:00: [id number] 00 Gait/Locomo gait PT/OT: Resolve 2016-05-29 Rubén tion assistive Gait/Locom d 05-22 13:30:00 Que problems device otion 12:35: [id number] present 00 Gait/Locomo gait PT/OT: Resolve 2016-05-29 Rubén tion deficit Gait/Locom d 05-22 13:30:00 Que problems otion 12:35: [id number] 00 Pain frequent Pain Mgmt Unknown Ashley pain 05-27 Vinnie 10:30: [id number] 00 Nutrition nutritional Nutrition Resolve 2016-07-14 Ashley restriction d 05-27 09:45:00 Vinnie williamson 10:30: [id number] 00 Elimination urinary Eliminatio Resolve 2016-12-09 Ashley incontinenc n d 05-27 12:18:00 Vinnie gaffney 10:30: [id number] 00 Elimination urinary Eliminatio Resolve 2016-12-09 Ashley frequency n d 05-27 12:18:00 Vinnie 10:30: [id number] 00 Endo/Nito glucose Endo/Nito Resolve 2016-12-09 Cherrise tolerance d 3-13 12:18:00 Greg problem 11:10: [id number] 00 Endo/Nito knowledge/s Endo/Nito Resolve 2016-12-09 Cherrise kill d 3- 12:18:00 Sumner deficit: pt 11:10: [id number] 00 Elimination constipatio Eliminatio Resolve 2016-12-09 Cherrise n n d 3 12:18:00 Greg 11:10: [id number] 00 Safety fall risk Safety Resolve 2016-06-16 Cherrise factor d 3-13 10:31:00 Greg present 11:10: [id number] 00 Gait/Locomo gait PT/OT: Resolve 2016-06-05 Rubén tion assistive Gait/Locom d 3-13 13:30:00 Que problems device otion 14:45: [id number] present 00 Gait/Locomo gait PT/OT: Resolve 2016-06-05 Rubén tion deficit Gait/Locom d 3-13 13:30:00 Que problems otion 14:45: [id number] 00 Gait/Locomo gait PT/OT: Resolve 2016-06-12 Rubén tion assistive Gait/Locom d 3-20 15:30:00 Que problems device otion 15:30: [id number] present 00 Gait/Locomo gait PT/OT: Resolve 2016-06-12 Rubén tion deficit Gait/Locom d 3-20 15:30:00 Que problems otion 15:30: [id number] 00 Endo/Nito knowledge/s Endo/Nito Resolve 2016-12-09 Cherrise kill d 3 12:18:00 Greg deficit: cg 10:31: [id number] 00 Nutrition knowledge/s Nutrition Resolve 2016-07-14 Cherrise kill d 06-16 09:45:00 Sumner deficit: pt 10:31: [id number] 00 Nutrition knowledge/s Nutrition Resolve 2016-07-14 Cherrise kill d 06-16 09:45:00 Sumner deficit: cg 10:31: [id number] 00 Elimination urinary Eliminatio Resolve 2016-12-09 Cherrise urgency n d 06-16 12:18:00 Sumner 10:31: [id number] 00 Elimination diarrhea Eliminatio Resolve 2016-12-09 Cherrise n d 06-16 12:18:00 Greg 10:31: [id number] 00 Neuro depressive Neuro/Emot Resolve 2016-07-14 Cherrise feelings ion d 06-16 09:45:00 Sumner present 10:31: [id number] 00 Safety can be left Safety Resolve 2016-06-16 Cherrise alone for d 06-16 10:31:00 Greg only short 10:31: [id number] periods 00 Musculoskel knowledge/s Musculoske Resolve 2016-07-14 Cherrise etal kill letal d 06-16 09:45:00 Greg deficit: cg 10:31: [id number] 00 Musculoskel knowledge/s Musculoske Resolve 2016-07-14 Cherrise etal kill letal d 06-16 09:45:00 Sumner deficit: pt 10:31: [id number] 00 Safety risk for Safety Unknown Rub[facility] hospitaliza 06-16 Que tion 14:30: [id number] 00 Gait/Locomo gait PT/OT: Resolve 2016-06-18 Rubén tion assistive Gait/Locom d 06-16 16:15:00 Que problems device otion 14:30: [id number] present 00 Gait/Locomo gait PT/OT: Resolve 2016-06-18 Rubén tion deficit Gait/Locom d 06-16 16:15:00 Que problems otion 14:30: [id number] 00 Safety can be left Safety Resolve 2016-11-10 Ashley adam for d 06-23 13:50:00 Vinnie larios nai 09:00: [id number] periods 00 Gait/Locomo gait PT/OT: Resolve 2016-07-28 Rubén tion assistive Gait/Locom d 06-23 16:40:00 Que problems device otion 16:50: [id number] present 00 Gait/Locomo gait PT/OT: Resolve 2016-07-28 Rubén tion deficit Gait/Locom d 06-23 16:40:00 Que problems otion 16:50: [id number] 00 Neuro impaired Neuro/Emot Resolve 2017-03-24 Cherrise decision-ma ion d 06-30 14:32:00 Sumner marcelle 09:45: [id number] 00 Neuro seizures Neuro/Emot Resolve 2016-08-11 Geni ion d 06-30 10:15:00 Greg 09:45: [id number] 00 Safety fall risk Safety Resolve 2016-07-14 Cherrise factor d 06-30 09:45:00 Sumner present 09:45: [id number] 00 Safety risk for Safety Resolve 2016-07-14 [facility] d 06-30 09:45:00 Sumner tion 09:45: [id number] 00 Medication oral med Meds Unknown Estelita assistance 07-08 Ulisses required 09:05: [id number] 00 Medication injectable Meds Unknown Estelita med 07-08 Ulisses assistance 09:05: [id number] required 00 Safety risk for Safety Resolve 2016-08-11 Rub[facility] hospitaliza d 07-15 10:15:00 Que tion 13:40: [id number] 00 Medication oral med Meds Unknown Estelita assistance 07-21 Ulisses required 08:48: [id number] 00 Medication injectable Meds Unknown Estelita med 07-21 Ulisses assistance 08:48: [id number] required 00 Musculoskel transfer Musculoske Resolve 2016-10-27 Estelita etal assistance letkatie d 07-21 09:55:00 Ulisses required 08:48: [id number] 00 Musculoskel knowledge/s Musculoske Resolve 2016-08-11 Estelita etal kill letal d 07-21 10:15:00 Ulisses deficit: pt 08:48: [id number] 00 Musculoskel knowledge/s Musculoske Resolve 2016-08-11 Estelita etal kill letal d 07-21 10:15:00 Ulisses deficit: cg 08:48: [id number] 00 Musculoskel requires Musculoske Resolve 2016-10-27 Estelita etal human letal d 07-21 09:55:00 Ulisses assist to 08:48: [id number] leave home 00 Activity ADL Activity Resolve 2016-09-15 Estelita assistance d 07-28 09:00:00 Ulisses required 10:09: [id number] 00 Safety fall risk Safety Resolve 2016-08-11 Estelita factor d 07-28 10:15:00 Ulisses present 10:09: [id number] 00 Gait/Locomo gait PT/OT: Resolve 2016-07-30 Rubén tion assistive Gait/Locom d -10 15:30:00 Que problems device otion 15:30: [id number] present 00 Gait/Locomo gait PT/OT: Resolve 2016-07-30 Rubén tion deficit Gait/Locom d -10 15:30:00 Que problems otion 15:30: [id number] 00 Elimination bowel Eliminatio Resolve 2016-12-09 Estelita incontinenc n d 08-04 12:18:00 Ulisses e 09:00: [id number] 00 Neuro depressive Neuro/Emot Resolve 2017-03-24 Cherrise feelings ion d 08-11 14:32:00 Greg present 10:15: [id number] 00 Safety cannot be Safety Resolve 2016-12-09 Ashley left alone d 08-13 12:18:00 Vinnie 09:00: [id number] 00 Safety fall risk Safety Resolve 2016-11-10 Ashley factor d 08-13 13:50:00 Vinnie present 09:00: [id number] 00 Safety risk for Safety Resolve 2016-11-10 Ashley meza d 08-13 13:50:00 Vinnie tion 09:00: [id number] 00 Endo/Nito diabetic Endo/Nito Resolve 2016-12-23 Estelita foot care d 08-19 13:35:00 Ulisses 16:15: [id number] 00 Elimination UTI within Eliminatio Resolve 2016-09-22 Estelita past 14 n d 08-19 12:30:00 Ulisses days 16:15: [id number] 00 Neuro confusion Neuro/Emot Resolve 2017-03-24 Estelita present ion d 08-19 14:32:00 Ulisses 16:15: [id number] 00 Neuro anxiety Neuro/Emot Resolve 2017-03-24 Estelita present ion d 08-19 14:32:00 Ulisses 16:15: [id number] 00 Medication oral med Meds Unknown Estelita assistance 08-19 Ulisses required 16:15: [id number] 00 Medication injectable Meds Unknown Estelita med 08-19 Ulisses assistance 16:15: [id number] required 00 Medication oral med Meds Unknown Maryse assistance 08-19 Regeczi required 16:15: [id number] 00 Musculoskel knowledge/s Musculoske Resolve 2016-09-15 Estelita etal kill letal d 08-19 09:00:00 Ulisses deficit: pt 16:15: [id number] 00 Respiratory lung sounds Respirator Resolve 2016-11-03 Estelita deficit y d 09-01 09:58:00 Ulisses 11:23: [id number] 00 Neuro seizures Neuro/Emot Resolve 2016-12-09 Estelita ion d 09-08 12:18:00 Ulisses 09:30: [id number] 00 Activity ADL Activity Unknown Estelita assistance 09-29 Ulisses required 10:30: [id number] 00 Cardio chest pain Cardiovasc Resolve 2016-12-09 Estelita ular d 10-14 12:18:00 Ulisses 09:30: [id number] 00 Safety can be left Safety Unknown Estelita alone for 11-10 Ulisses only short 13:50: [id number] periods 00 Safety risk for [facility] Ulisses tion 10:25: [id number] 00 Safety can be left Safety Resolve 2016-12-09 Estelita alone for d 11-25 12:18:00 Ulisses only short 10:03: [id number] periods 00 Safety fall risk Safety Resolve 2016-12-09 Estelita factor d 11-25 12:18:00 Ulisses present 10:03: [id number] 00 Activity ADL Activity Resolve 2017-03-10 Estelita assistance d 12-12 14:00:00 Ulisses required 13:07: [id number] 00 Safety risk for Safety Resolve 2016-12-16 [facility] d 12-12 10:39:00 Ulisses tion 13:07: [id number] 00 Safety cannot be Safety Resolve 2017-01-27 Estelita left alone d 12-12 13:44:00 Ulisses 13:07: [id number] 00 Activity ADL Activity Unknown Estelita assistance 12-12 Ulisses required 13:43: [id number] 00 Safety risk for Safety [facility] 10:39[facility] Ulisses tion 13:43: [id number] 00 Elimination urinary Eliminatio Resolve 2016-12-23 Estelita incontinenc n d 12-16 13:35:00 Ulisses e 10:39: [id number] 00 Elimination bowel Eliminatio Active Estelita incontinenc n 12-16 Ulisses e 10:39: [id number] 00 Elimination constipatio Eliminatio Active Estelita n n 12-16 Ulisses 10:39: [id number] 00 Elimination diarrhea Eliminatio Active Estelita n 9-26 Ulisses 10:39: [id number] 00 Elimination urinary Eliminatio Resolve 2016-032017-03-10 Estelita incontinenc n d 0-10 14:00:00 Ulisses e 13:16: [id number] 00 Safety risk for Safety Resolve 2016-032017-01-27 Estelita hospitaliza d 0-10 13:44:00 Ulisses tion 13:16: [id number] 00 Safety can be left Safety Resolve 2016-032017-01-27 Estelita alone for d 0-10 13:44:00 Ulisses only short 13:16: [id number] periods 00 Cardio chest pain Cardiovasc Active 2016-03 Divina ular 0-17 Schilling 17:00: [id number] 00 Cardio edema Cardiovasc Resolve 2016-032017-02-10 Divina ular d 0-17 12:43:00 Schilling 17:00: [id number] 00 Cardio hypertensio Cardiovasc Active 2016-03 Divina n ular 0-17 Schilling 17:00: [id number] 00 Respiratory dyspnea Respirator Resolve 2016-032017-02-10 Divina present y d 0-17 12:43:00 Schilling 17:00: [id number] 00 Respiratory oxygen Respirator Active 2016-03 Divina treatments y 0-17 Schilling in home 17:00: [id number] 00 Respiratory lung sounds Respirator Resolve 2016-032017-02-10 Divina deficit y d 0-17 12:43:00 Schilling 17:00: [id number] 00 Respiratory CPAP Respirator Resolve 2016-032018-02-16 Divina treatments y d 0-17 09:41:00 Schilling in home 17:00: [id number] 00 Respiratory nebulizer Respirator Resolve 2016-032018-02-16 Divina treatment y d 0-17 09:41:00 Schilling in home 17:00: [id number] 00 Respiratory knowledge/s Respirator Resolve 2016-032017-01-27 Divina kill y d 0-17 13:44:00 Schilling deficit: pt 17:00: [id number] 00 Safety fall risk Safety Resolve 2016-032017-01-27 Estelita factor d - 13:44:00 Ulisses present 13:44: [id number] 00 Safety risk for Safety Resolve 2016-032017-03-03 Estelita hospitaliza d 1-08 15:22:00 Ulisses tion 13:03: [id number] 00 Safety can be left Safety Resolve 2016-032017-03-03 Estelita alone for d 1-14 15:22:00 Ulisses only short 13:51: [id number] periods 00 Respiratory lung sounds Respirator Resolve 2016-032017-03-10 Estelita deficit y d 1-28 14:00:00 Ulisses 11:10: [id number] 00 Gait/Locomo gait PT/OT: Resolve 2016-032017-09-10 Rubén tion assistive Gait/Locom d 2-14 11:30:00 Que problems device otion 13:15: [id number] present 00 Safety risk for Safety Resolve 2016-032017-03-10 Rubén hospitaliza d 2-18 14:00:00 Que tion 14:15: [id number] 00 Gait/Locomo gait PT/OT: Resolve 2016-032017-09-10 Rubén tion deficit Gait/Locom d 2-18 11:30:00 Que problems otion 14:15: [id number] 00 Sensory impaired Sensory Resolve 2016-032017-03-24 Estelita hearing d 2- 14:32:00 Ulisses 14:00: [id number] 00 Safety can be left Safety Resolve 2016-032017-03-10 Estelita alone for d 2- 14:00:00 Ulisses only short 14:00: [id number] periods 00 Safety risk for Safety Resolve 2016-032017-03-18 Estelita hospitaliza d 2- 14:00:00 Ulisses tion 10:28: [id number] 00 Respiratory lung sounds Respirator Resolve 2016-032017-03-31 Estelita deficit y d - 16:04:00 Ulisses 14:00: [id number] 00 Elimination urinary Eliminatio Resolve 2016-032017-03-24 Estelita incontinenc n d 05-19 14:32:00 Ulisses e 14:00: [id number] 00 Safety can be left Safety Resolve 2016-032017-03-31 Estelita alone for d 2- 16:04:00 Ulisses only short 14:00: [id number] periods 00 Respiratory dyspnea Respirator Resolve 2017-11-24 Estelita present y d 03-24 14:00:00 Ulisses 14:32: [id number] 00 Nutrition knowledge/s Nutrition Resolve 2017-03-31 Estelita kill d 03-24 16:04:00 Ulisses deficit: pt 14:32: [id number] 00 Nutrition knowledge/s Nutrition Resolve 2017-03-31 Estelita kill d 03-24 16:04:00 Ulisses deficit: cg 14:32: [id number] 00 Activity ADL Activity Unknown Estelita assistance 03-24 Ulisses required 14:32: [id number] 00 Safety fall risk Safety Resolve 2017-03-24 Estelita factor d 03-24 14:32:00 Ulisses present 14:32: [id number] 00 Safety risk for Safety Resolve 2017-03-24 Estelita hospitaliza d 03-24 14:32:00 Ulisses tion 14:32: [id number] 00 Medication injectable Meds Unknown Estelita med 03-24 Ulisses assistance 14:32: [id number] required 00 Nutrition nutritional Nutrition Resolve 2017-03-31 Estelita restriction d 03-26 16:04:00 Ulisses s 12:16: [id number] 00 Safety risk for Safety Resolve 2017-03-31 Estelita hospitaliza d 03-26 16:04:00 Ulisses tion 12:16: [id number] 00 Bed transfer PT/OT: Bed Resolve 2017-09-10 Rubén Mobility/Tr deficit: Mobility/T d - 11:30:00 Que mack sit/stand ransfer 14:00: [id number] 00 Bed transfer PT/OT: Bed Resolve 2017-09-10 Rubén Mobility/Tr deficit: Mobility/T d 03-26 11:30:00 Que mack standing ransfer 14:00: [id number] pivot 00 Bed transfer PT/OT: Bed Resolve 2017-09-10 Rubén Mobility/Tr deficit: Mobility/T d - 11:30:00 Que mack toilet/comm ransfer 14:00: [id number] ode 00 Bed transfer PT/OT: Bed Resolve 2017-09-10 Rubén Mobility/Tr deficit: Mobility/T d 03-26 11:30:00 Que mack shower/tub ransfer 14:00: [id number] 00 Bed transfer PT/OT: Bed Resolve 2017-09-10 Rubén Mobility/Tr deficit: Mobility/T d 03-26 11:30:00 Que mack vehicle ransfer 14:00: [id number] 00 Bed bed PT/OT: Bed Active Rubén Mobility/Tr mobility Mobility/T 03-26 Que mack deficit ransfer 14:00: [id number] 00 Endo/Nito anti-coagul Endo/Nito Resolve 2017-09-22 Estelita ation d 03-31 12:21:00 Ulisses therapy 16:04: [id number] 00 Endo/Nito diabetic Endo/Nito Resolve 2017-03-31 Estelita foot care d 03-31 16:04:00 Ulisses 16:04: [id number] 00 Elimination urinary Eliminatio Resolve 2017-03-31 Estelita incontinenc n d 03-31 16:04:00 Ulisses e 16:04: [id number] 00 Neuro confusion Neuro/Emot Resolve 2017-10-27 Estelita present ion d 03-31 10:31:00 Ulisses 16:04: [id number] 00 Medication oral med Meds Resolve 2017-04-06 Estelita assistance d 03-31 12:56:00 Ulisses required 16:04: [id number] 00 Medication injectable Meds Resolve 2017-04-06 Estelita med d 03-31 12:56:00 Ulisses assistance 16:04: [id number] required 00 Respiratory lung sounds Respirator Resolve 2017-04-06 Estelita deficit y d 04-03 12:56:00 Ulisses 11:44: [id number] 00 Endo/Nito diabetic Endo/Nito Resolve 2017-04-06 Estelita foot care d 1-12 12:56:00 Ulisses 11:44: [id number] 00 Elimination urinary Eliminatio Resolve 2017-04-06 Estelita incontinenc n d - 12:56:00 Ulisses e 11:44: [id number] 00 Musculoskel requires Musculoske Resolve 2017-04-20 Estelita etal human letal d 04-06 09:23:00 Ulisses assist to 12:56: [id number] leave home 00 Musculoskel requires Musculoske Resolve 2017-04-20 Estelita etal special letal d 04-06 09:23:00 Ulisses transportat 12:56: [id number] ion 00 Respiratory lung sounds Respirator Resolve 2017-04-20 Estelita deficit y d 04-13 09:23:00 Ulisses 08:30: [id number] 00 Elimination urinary Eliminatio Resolve 2017-04-28 Estelita incontinenc n d 04-13 12:19:00 Ulisses e 08:30: [id number] 00 Safety risk for Safety Active Estelita hospitaliza 04-13 Ulisses tion 08:30: [id number] 00 Safety can be left Safety Resolve 2017-04-20 Estelita alone for d 04-13 09:23:00 Ulisses only short 08:30: [id number] periods 00 Respiratory lung sounds Respirator Resolve 2017-07-21 Estelita deficit y d 04-28 12:47:00 Ulisses 12:19: [id number] 00 Safety can be left Safety Resolve 2017-05-05 Estelita alone for d 04-28 11:50:00 Ulisses only short 12:19: [id number] periods 00 Respiratory pneumonia Respirator Resolve 2017-07-21 Estelita y d - 12:47:00 Ulisses 11:50: [id number] 00 Endo/Nito diabetic Endo/Nito Resolve 2017-10-27 Estelita foot care d - 10:31:00 Ulisses 11:50: [id number] 00 Elimination urinary Eliminatio Resolve 2017-07-14 Maryse incontinenc n d 2-13 12:22:00 Regeczi e 11:50: [id number] 00 Activity ADL Activity Resolve 2017-12-29 Maryse assistance d 2- 11:16:00 Regeczi required 11:50: [id number] 00 Safety fall risk Safety Resolve 2017-07-14 Estelita factor d 2- 12:22:00 Ulisses present 11:50: [id number] 00 Medication oral med Meds Resolve 2017-07-14 Estelita assistance d 2- 12:22:00 Ulisses required 11:50: [id number] 00 Medication injectable Meds Resolve 2017-07-14 Estelita med d 05-05 12:22:00 Ulisses assistance 11:50: [id number] required 00 Medication potential Meds Resolve 2017-07-14 Estelita clinically d 05-05 12:22:00 Ulisses significant 11:50: [id number] medication 00 issue Musculoskel transfer Musculoske Unknown Estelita etal assistance letal 05-05 Ulisses required 11:50: [id number] 00 Musculoskel requires Musculoske Unknown Estelita etal special letal 2- Ulisses transportat 11:50: [id number] ion 00 Endo/Nito glucose Endo/Nito Resolve 2017-10-27 Estelita tolerance d 2 10:31:00 Ulisses problem 10:40: [id number] 00 Endo/Nito knowledge/s Endo/Nito Resolve 2017-09-29 Estelita kill d 05-12 11:58:00 Ulisses deficit: cg 10:40: [id number] 00 Endo/Ntio knowledge/s Endo/Nito Resolve 2017-09-29 Estelita kill d 05-12 11:58:00 Ulisses deficit 10:40: [id number] hypo/hyperg 00 lycemia: cg Safety can be left Safety Resolve 2017-07-21 Estelita alone for d 05-12 12:47:00 Ulisses only short 10:40: [id number] periods 00 Infection s/s of Infection Resolve 2017-12-01 Estelita infection d 2- 10:00:00 Ulisses 14:00: [id number] 00 Musculoskel requires Musculoske Resolve 2017-10-13 Estelita etal human letal d 05-26 10:51:00 Ulisses assist to 13:58: [id number] leave home 00 Musculoskel requires Musculoske Resolve 2017-10-13 Estelita etal special letal d 05-26 10:51:00 Ulisses transportat 13:58: [id number] ion 00 Safety cannot be Safety Resolve 2017-07-21 Estelita left alone d 07-07 12:47:00 Ulisses 12:05: [id number] 00 Safety knowledge/s Safety Resolve 2017-07-14 Estelita kill d 07-14 12:22:00 Ulisses deficit: pt 12:22: [id number] 00 Elimination urinary Eliminatio Resolve 2017-07-21 Estelita incontinenc n d 07-21 12:47:00 Ulisses e 12:47: [id number] 00 Neuro impaired Neuro/Emot Resolve 2017-10-27 Estelita decision-ma ion d 07-21 10:31:00 Ulisses marcelle 12:47: [id number] 00 Activity ADL Activity Unknown Estelita assistance 07-21 Ulisses required 12:47: [id number] 00 Safety fall risk Safety Resolve 2017-12-01 Estelita factor d 07-21 10:00:00 Ulisses present 12:47: [id number] 00 Medication injectable Meds Resolve 2017-08-24 Estelita med d 07-21 12:12:00 Ulisses assistance 12:47: [id number] required 00 Respiratory lung sounds Respirator Resolve 2017-07-28 Estelita deficit y d 07-24 12:01:00 Ulisses 12:50: [id number] 00 Elimination urinary Eliminatio Resolve 2017-09-22 Estelita incontinenc n d 07-24 12:21:00 Ulisses e 12:50: [id number] 00 Safety can be left Safety Resolve 2017-12-29 Estelita alone for d 07-24 11:16:00 Ulisses only short 12:50: [id number] periods 00 Safety cannot be Safety Resolve 2017-12-29 Estelita left alone d 07-28 11:16:00 Ulisses 12:01: [id number] 00 Safety knowledge/s Safety Resolve 2017-12-01 Estelita kill d 07-28 10:00:00 Ulisses deficit: pt 12:01: [id number] 00 Respiratory lung sounds Respirator Resolve 2017-10-27 Estelita deficit y d 07-30 10:31:00 Ulisses 10:57: [id number] 00 Elimination recurring Eliminatio Resolve 2017-09-07 Estelita UTI n d 09-01 09:49:00 Ulisses 10:54: [id number] 00 Musculoskel transfer Musculoske Resolve 2017-10-13 Estelita etal assistance letal d 09-07 10:51:00 Ulisses required 09:49: [id number] 00 Elimination recurring Eliminatio Resolve 2017-09-22 Estelita UTI n d 09-22 12:21:00 Ulisses 12:21: [id number] 00 Neuro depressive Neuro/Emot Resolve 2017-12-29 Estelita feelings ion d 09-22 11:16:00 Ulisses present 12:21: [id number] 00 Medication injectable Meds Resolve 2017-09-29 Estelita med d 09-22 11:58:00 Ulisses assistance 12:21: [id number] required 00 Endo/Nito anti-coagul Endo/Nito Resolve 2017-10-27 Estelita ation d 10-06 10:31:00 Ulisses therapy 11:32: [id number] 00 Safety knowledge/s Safety Resolve 2017-12-01 Estelita kill d 10-06 10:00:00 Ulisses deficit: cg 11:32: [id number] 00 Musculoskel transfer Musculoske Unknown Estelita etal assistance letal 10-20 Ulisses required 12:01: [id number] 00 Musculoskel requires Musculoske Resolve 2017-12-01 Estelita etal human letal d 10-20 10:00:00 Ulisses assist to 12:01: [id number] leave home 00 Neuro anxiety Neuro/Emot Resolve 2017-12-29 Estelita present ion d 10-27 11:16:00 Ulisses 10:31: [id number] 00 Medication oral med Meds Resolve 2017-11-11 Estelita assistance d 10-27 10:50:00 Ulisses required 10:31: [id number] 00 Medication injectable Meds Resolve 2017-11-11 Estelita med d 10-27 10:50:00 Ulisses assistance 10:31: [id number] required 00 Bed transfer PT/OT: Bed Active Rubén Mobility/Tr deficit: Mobility/T 8-10 Que ansfer sit/stand ransfer 10:30: [id number] 00 Bed transfer PT/OT: Bed Active Rubén Mobility/Tr deficit: Mobility/T 8-10 Que ansfer toilet/comm ransfer 10:30: [id number] ode 00 Bed transfer PT/OT: Bed Active Rubén Mobility/Tr deficit: Mobility/T 8-10 Que ansfer shower/tub ransfer 10:30: [id number] 00 Bed transfer PT/OT: Bed Active Rubén Mobility/Tr deficit: Mobility/T 8-10 Que ansfer vehicle ransfer 10:30: [id number] 00 Gait/Locomo gait PT/OT: Active Rubén tion deficit Gait/Locom 8-10 Que problems otion 10:30: [id number] 00 Gait/Locomo gait PT/OT: Active Rubén tion assistive Gait/Locom 8-10 Que problems device otion 10:30: [id number] present 00 Gait/Locomo knowledge/s PT/OT: Active Rubén tion kill Gait/Locom 8-10 Que problems deficit: pt otion 10:30: [id number] 00 Respiratory lung sounds Respirator Resolve 2017-11-18 Estelita deficit y d 11-03 15:52:00 Ulisses 10:41: [id number] 00 Endo/Nito anti-coagul Endo/Nito Resolve 2018-08-03 Estelita ation d 11-03 12:10:00 Ulisses therapy 10:41: [id number] 00 Elimination urinary Eliminatio Resolve 2017-11-18 Estelita incontinenc n d 11-17 15:52:00 Ulisses e 08:59: [id number] 00 Nutrition knowledge/s Nutrition Active Estelita kill 11-18 Ulisses deficit: pt 15:52: [id number] 00 Nutrition knowledge/s Nutrition Active Estelita kill 11-18 Ulisses deficit: cg 15:52: [id number] 00 Nutrition nutritional Nutrition Resolve 2017-11-18 Estelita restriction d 11-18 15:52:00 Ulisses s 15:52: [id number] 00 Neuro impaired Neuro/Emot Resolve 2017-12-29 Estelita decision-ma ion d 11-18 11:16:00 Ulisses marcelle 15:52: [id number] 00 Medication injectable Meds Resolve 2017-11-24 Estelita med d 11-18 14:00:00 Ulisses assistance 15:52: [id number] required 00 Musculoskel transfer Musculoske Resolve 2017-12-01 Estelita etal assistance letal d 11-18 10:00:00 Ulisses required 15:52: [id number] 00 Nutrition nutritional Nutrition Resolve 2017-11-24 Rubén restriction d 11-23 14:00:00 Que s 12:20: [id number] 00 Respiratory lung sounds Respirator Resolve 2017-12-08 Estelita deficit y d 11-24 10:45:00 Ulisses 14:00: [id number] 00 Elimination urinary Eliminatio Resolve 2017-12-29 Estelita incontinenc n d 11-24 11:16:00 Ulisses e 14:00: [id number] 00 Respiratory dyspnea Respirator Resolve 2017-12-15 Estelita present y d 11-27 11:24:00 Ulisses 17:09: [id number] 00 Musculoskel requires Musculoske Resolve 2018-11-10 Estelita etal human letal d 12-08 09:15:00 Ulisses assist to 10:45: [id number] leave home 00 Bed transfer PT/OT: Bed Active Rubén Mobility/Tr deficit: Mobility/T 12-14 Que mack standing ransfer 13:15: [id number] pivot 00 Respiratory lung sounds Respirator Resolve 2018-02-16 Estelita deficit y d 12-15 09:41:00 Ulisses 11:24: [id number] 00 Respiratory dyspnea Respirator Active 2017-03 Estelita present y Ulisses 09:53: [id number] 00 Elimination urinary Eliminatio Resolve 2017-032018-02-16 Estelita incontinenc n d 0-10 09:41:00 Ulisses e 13:18: [id number] 00 Activity ADL Activity Unknown 2017-03 Estelita assistance 0-10 Ulisses required 13:18: [id number] 00 Safety cannot be Safety Resolve 2017-032018-08-03 Estelita left alone d 0-10 12:10:00 Ulisses 13:18: [id number] 00 Neuro anxiety Neuro/Emot Resolve 2017-032018-12-08 Estelita present ion d 0-16 10:56:00 Ulisses 10:49: [id number] 00 Neuro impaired Neuro/Emot Resolve 2017-032018-12-08 Estelita decision-ma ion d 0-16 10:56:00 Ulisses marcelle 10:49: [id number] 00 Nutrition nutritional Nutrition Resolve 2017-032018-02-16 Estelita restriction d 0-30 09:41:00 Ulisses s 10:43: [id number] 00 Safety fall risk Safety Resolve 2017-032018-08-03 Estelita factor d 0-30 12:10:00 Ulisses present 10:43: [id number] 00 Medication injectable Meds Resolve 2017-032018-02-09 Estelita med d 0-30 14:18:00 Ulisses assistance 10:43: [id number] required 00 Respiratory BiPAP Respirator Active 2017-03 Estelita treatments y 04-11 Ulisses in home 14:18: [id number] 00 Medication oral med Meds Resolve 2017-032018-02-09 Estelita assistance d 04-11 14:18:00 Ulisses required 14:18: [id number] 00 IV k/s IV Active 2017-03 Estelita deficit: IV 04-11 Ulisses care - pt 14:18: [id number] 00 Endo/Nito glucose Endo/Nito Active 2017-03 Estelita tolerance 04-18 Ulisses problem 09:41: [id number] 00 Endo/Nito knowledge/s Endo/Nito Active 2017-03 Estelita kill 04-18 Ulisses deficit 09:41: [id number] hypo/hyperg 00 lycemia: cg Respiratory lung sounds Respirator Active 2017-03 Estelita deficit y 04-26 Ulisses 09:51: [id number] 00 Sensory impaired Sensory Resolve 2017-032018-12-08 Estelita verbal d 04-26 10:56:00 Ulisses communicati 09:51: [id number] on 00 Nutrition nutritional Nutrition Resolve 2017-032018-06-22 Estelita restriction d 04-26 11:30:00 Ulisses s 09:51: [id number] 00 Elimination urinary Eliminatio Resolve 2017-032018-06-22 Estelita incontinenc n d 04-26 11:30:00 Ulisses e 09:51: [id number] 00 Endo/Nito diabetic Endo/Nito Active 2017-03 Estelita foot care 05-16 Ulisses 17:47: [id number] 00 Sensory impaired Sensory Resolve 2017-032018-12-08 Estelita hearing d 05-16 10:56:00 Ulisses 17:47: [id number] 00 Integument surgical Integument Resolve 2017-032018-03-22 Estelita wound d 05-16 11:40:00 Ulisses present 17:47: [id number] 00 Integument skin Integument Active 2017-03 Estelita integrity 05-16 Ulisses risk 17:47: [id number] 00 Neuro confusion Neuro/Emot Resolve 2017-032018-12-08 Estelita present ion d 05-16 10:56:00 Ulisses 17:47: [id number] 00 Medication oral med Meds Resolve 2017-032018-06-22 Estelita assistance d 05-16 11:30:00 Ulisses required 17:47: [id number] 00 Medication injectable Meds Resolve 2017-032018-06-22 Estelita med d 05-16 11:30:00 Ulisses assistance 17:47: [id number] required 00 Medication potential Meds Resolve 2017-032018-06-22 Estelita clinically d 05-16 11:30:00 Ulisses significant 17:47: [id number] medication 00 issue Musculoskel knowledge/s Musculoske Resolve 2017-032018-11-10 Estelita etal kill letal d 05-16 09:15:00 Ulisses deficit: pt 17:47: [id number] 00 Activity ADL Activity Resolve 2018-07-27 Estelita assistance d -16 09:15:00 Ulisses required 11:15: [id number] 00 Activity patient Activity Resolve 2018-11-10 Estelita bedbound d -16 09:15:00 Ulisses 11:15: [id number] 00 Musculoskel transfer Musculoske Resolve 2018-11-10 Estelita etal assistance letal d 16 09:15:00 Ulisses required 11:15: [id number] 00 Safety can be left Safety Resolve 2018-08-03 Estelita alone for d 04-14 12:10:00 Ulisses only short 11:45: [id number] periods 00 Infection s/s of Infection Active Estelita infection 05-14 Ulisses 10:00: [id number] 00 Activity self-care Activity Resolve 2018-07-27 Estelita deficit d 05-17 09:15:00 Ulisses 10:45: [id number] 00 Neuro behavior Neuro/Emot Resolve 2018-12-08 Estelita problems ion d - 10:56:00 Ulisses 09:46: [id number] 00 Neuro constant Neuro/Emot Resolve 2018-12-08 Estelita confusion ion d 3-04 10:56:00 Ulisses 09:46: [id number] 00 Medication inhalant Meds Resolve 2018-06-22 Estelita med d 3-12 11:30:00 Ulisses assistance 14:00: [id number] required 00 Respiratory CPAP Respirator Active Estelita treatments y - Ulisses in home 11:30: [id number] 00 Nutrition nutritional Nutrition Resolve 2018-07-27 Estelita restriction d 06-29 09:15:00 Ulisses s 10:00: [id number] 00 Respiratory nebulizer Respirator Active Estelita treatment y 07-06 Ulisses in home 11:53: [id number] 00 Elimination urinary Eliminatio Resolve 2018-07-27 Estelita incontinenc n d 07-06 09:15:00 Ulisses e 11:53: [id number] 00 Musculoskel requires Musculoske Resolve 2018-11-10 Estelita etal special letal d 07-06 09:15:00 Ulisses transportat 11:53: [id number] ion 00 Medication oral med Meds Resolve 2018-08-10 Estelita assistance d 07-13 09:21:00 Ulisses required 12:15: [id number] 00 Medication inhalant Meds Resolve 2018-08-10 Estelita med d 07-13 09:21:00 Ulisses assistance 12:15: [id number] required 00 Medication injectable Meds Resolve 2018-10-21 Estelita med d 07-13 09:54:00 Ulisses assistance 12:15: [id number] required 00 Medication potential Meds Active Estelita clinically 07-13 Ulisses significant 12:15: [id number] medication 00 issue Nutrition nutritional Nutrition Resolve 2018-12-08 Estelita restriction d 5-10 10:56:00 Ulisses s 13:30: [id number] 00 Elimination recurring Eliminatio Resolve 2018-12-08 Estelita UTI n d 5-14 10:56:00 Ulisses 12:10: [id number] 00 Endo/Nito anti-coagul Endo/Nito Active Estelita ation 08-10 Ulisses therapy 09:21: [id number] 00 Elimination urinary Eliminatio Resolve 2018-12-08 Estelita incontinenc n d 08-10 10:56:00 Ulisses e 09:21: [id number] 00 Safety cannot be Safety Resolve 2019-01-27 Estelita left alone d 08-10 11:00:00 Ulisses 09:21: [id number] 00 Safety can be left Safety Resolve 2019-01-27 Estelita alone for d 08-31 11:00:00 Ulisses only short 10:00: [id number] periods 00 Activity ADL Activity Resolve 2018-11-24 Estelita assistance d 09-14 10:15:00 Ulisses required 09:30: [id number] 00 Activity self-care Activity Resolve 2018-11-10 Estelita deficit d 09-14 09:15:00 Ulisses 09:30: [id number] 00 Safety fall risk Safety Resolve 2019-01-27 Estelita factor d 09-14 11:00:00 Ulisses present 09:30: [id number] 00 Medication injectable Meds Unknown Estelita med 09-14 Ulisses assistance 09:30: [id number] required 00 Medication injectable Meds Unknown Estelita med 09-29 Ulisses assistance 13:11: [id number] required 00 Medication injectable Meds Resolve 2018-10-21 Estelita med d 10-13 09:54:00 Ulisses assistance 12:30: [id number] required 00 Activity self-care Activity Resolve 2019-01-27 Estelita deficit d 11-17 11:00:00 Ulisses 09:49: [id number] 00 Medication injectable Meds Active Estelita med 11-17 Ulsises assistance 09:49: [id number] required 00 Musculoskel transfer Musculoske Resolve 2019-01-27 Estelita etal assistance letal d 11-17 11:00:00 Ulisses required 09:49: [id number] 00 Musculoskel knowledge/s Musculoske Resolve 2018-2019-01-27 Estelita etal kill letal d 11-17 11:00:00 Ulisses deficit: pt 09:49: [id number] 00 Musculoskel requires Musculoske Resolve 2019-01-27 Estelita etal human letal d 11-17 11:00:00 Ulisses assist to 09:49: [id number] leave home 00 Musculoskel requires Musculoske Resolve 2019-01-27 Estelita etal special letal d 11-17 11:00:00 Ulisses transportat 09:49: [id number] ion 00 Activity patient Activity Active Estelita bedbound 11-24 Ulisses 10:15: [id number] 00 Nutrition nutritional Nutrition Resolve 2019-02-01 Estelita restriction d 12-14 11:05:00 Ulisses s 12:38: [id number] 00 Elimination urinary Eliminatio Resolve 2018-032019-02-01 Estelita incontinenc n d 0-02 11:05:00 Ulisses e 10:19: [id number] 00 Sensory impaired Sensory Active 2018-03 Estelita hearing 0-09 Ulisses 10:49: [id number] 00 Pain frequent Pain Mgmt Resolve 2018-032019-02-01 Estelita pain d 0-20 11:05:00 Ulisses 12:23: [id number] 00 Integument surgical Integument Active 2018-03 Estelita wound 0-20 Ulisses present 12:23: [id number] 00 Elimination UTI within Eliminatio Resolve 2018-032019-02-01 Estelita past 14 n d 0-20 11:05:00 Ulisses days 12:23: [id number] 00 Neuro confusion Neuro/Emot Active 2018-03 Estelita present ion 0-20 Ulisses 12:23: [id number] 00 Neuro anxiety Neuro/Emot Active 2018-03 Estelita present ion 0-20 Ulisses 12:23: [id number] 00 Neuro impaired Neuro/Emot Active 2018-03 Estelita decision-ma ion 0-20 Ulisses marcelle 12:23: [id number] 00 Activity ADL Activity Resolve 2018-032019-01-27 Estelita assistance d 0-20 11:00:00 Ulisses required 12:23: [id number] 00 Medication oral med Meds Active 2018-03 Estelita assistance 0 Ulisses required 12:23: [id number] 00 Endo/Nito insulin Endo/Nito Active 2018-03 Estelita admn Ulisses dependence 10:16: [id number] 00 Endo/Nito glucose Endo/Nito Active 2018-03 Estelita testing Ulisses dependence 10:16: [id number] 00 Sensory impaired Sensory Active 2018-03 Estelita verbal 04-03 Ulisses communicati 11:05: [id number] on 00 Safety can be left Safety Active 2018-03 Estelita alone for 04-03 Ulisses only short 11:05: [id number] periods 00 Musculoskel transfer Musculoske Active 2018-03 Estelita etal assistance letal 04-03 Ulisses required 11:05: [id number] 00 Musculoskel requires Musculoske Active 2018-03 Estelita etal human letal 04-03 Ulisses assist to 11:05: [id number] leave home 00 Musculoskel requires Musculoske Active 2018-03 Estelita etal special letal 04-03 Ulisses transportat 11:05: [id number] ion 00 Allergies, Adverse Reactions, Alerts Allergy Allergy Status Severity Reaction(s) Onset Inactive Treating Comments Name Type Date Date Clinician Iodine and Allergen Active Unknown altered mental [facility] Iodide Group statusseizure 07-23 Guidelli Containing [id number] Products Levaquin Medication Active Unknown itching Cherelle Name ID - Guidelli [id number] nitroglycer Base Active Unknown Anaphylaxis Cherelle in Ingredient - Guidelli [id number] Medications Ordered Filled Start Stop Current Ordering Indication Dosage Frequency Signature Comments Components Medication Medication Date Date Medication? Clinician (SIG) Name Name acetaminoph acetaminoph 2016- No Bindu 1 tab Unknown en 325 mg en 325 mg 09-04 Jeremiah PASTOR tablet tablet albuterol albuterol 2018- No [place] 1 Kika Unknown sulfate 2.5 sulfate 2.5 06-12 Jeremiah PASTOR mg/3 mL mg/3 mL (0.083 %) (0.083 %) solution solution for for nebulizatio nebulizatio n n aspirin 81 aspirin 81 No Bindu 1 tab Unknown mg mg 10-06 ,Jeremiah tablet,skyler tablet,skyler yed release yed release atorvastati atorvastati 2017- No [place] 0.5.tab Unknown n 20 mg n 20 mg 09-30 Jeremiah PASTOR tablet tablet benzonatate benzonatate 2016- No [place] 2 Cap Unknown 100 mg 100 mg 09-04 Jeremiah PASTOR capsule capsule budesonide budesonide 2017- No Bindu 2 ML Unknown 0.5 mg/2 mL 0.5 mg/2 mL 09-04 Jeremiah PASTOR suspension suspension for for nebulizatio nebulizatio n n cholecalcif cholecalcif 2017- No [place] 2 tab Unknown rob rob 09-04 Jeremiah PASTOR (vitamin (vitamin D3) 1,000 D3) 1,000 unit (25 unit (25 mcg) tablet mcg) tablet carboxymeth carboxymeth 2017- No Bindu 2 drops Unknown ylcellulose ylcellulose 09-04 Jeremiah PASTOR sodium 1 % sodium 1 % eye liquid eye liquid gel drops gel drops clobetasol- clobetasol- 2017- No [place] 1 cream Unknown emollient emollient 09-04 Jeremiah [...] liquid oral liquid Lantus Lantus 2014-03- No [place] 35 Kika Unknown U-100 U-100 04-07 Jeremiah [...] /min senna 8.6 senna 8.6 2015- No [place] 2 tab Unknown mg tablet mg tablet 08-15 Jeremiah PASTOR sertraline sertraline 2015- No [place] 0.5 Tab Unknown 100 mg 100 mg [...] ,Jeremiah warfarin 1 warfarin 1 2015- No [place] 4-7 Unknown mg tablet mg tablet 06-03 ,Jeremiah warfarin 1 warfarin 1 2015- No Bindu 7 Unknown mg tablet mg tablet 06-12 ,Jeremiah Calin Dilantin 2015- No [place] 3Cap Unknown Kapseal 100 Kapseal 100 06-12 ,Jeremiah mg capsule mg capsule warfarin warfarin 2015- No [place] 8-7mg Unknown 06-17 ,Jeremiah warfarin warfarin 2015- No [place] 8-7mg Unknown 06-24 ,Jeremiah sulfamethox sulfamethox No [place] 400 Unknown azole azole 06-24 ,Jeremiah warfarin warfarin 2015- No [place] 8-7mg Unknown 07-01 ,Jeremiah warfarin warfarin 2017- No [place] 8-7mg Unknown 07-02 ,Jeremiah Bactrim DS Bactrim DS No [place] 1 Unknown 800 mg-160 800 mg-160 07-05 Jeremiah PASTOR mg tablet mg tablet sertraline sertraline No Bindu 1 Tab Unknown 100 mg 100 mg 07-08 Jeremiah PASTOR tablet tablet warfarin 1 warfarin 1 2017- No [place] 7-8mg Unknown mg tablet mg tablet 07-08 [...] 07-12 Jeremiah PASTOR senna 8.6 senna 8.6 [place] 2 tab Unknown mg tablet mg tablet 07-15 Jeremiah PASTOR Vitamin D Vitamin D Bindu 1 Unknown 2,000 unit 2,000 unit 07-22 Jeremiah PASTOR tablet tablet warfarin 1 warfarin 1 [place] 6 Unknown mg tablet mg tablet 07-23 Jeremiah PASTOR Bactrim 400 Bactrim 400 [place] 1 Unknown mg-80 mg mg-80 mg 07-23 Jeremiah PASTOR tablet tablet dilTIAZem dilTIAZem Bindu 1 Unknown 120 mg 120 mg 07-23 Jeremiah PASTOR tablet tablet warfarin 1 warfarin 1 Bindu 7 mg Unknown mg tablet mg tablet 07-26 Jeremiah PASTOR warfarin 1 warfarin 1 [place] 1mg tab Unknown mg tablet mg tablet 07-29 Jeremiah PASTOR coumidin coumidin [place] 1mg Unknown 08-05 Jeremiah PASTOR Lovenox 80 Lovenox 80 Bindu 80mg Unknown mg/0.8 mL mg/0.8 mL 07-20 Jeremiah PASTOR subcutaneou subcutaneou s syringe s syringe Dilantin Dilantin [place] 2tabs Unknown Kapseal 100 Kapseal 100 08-09 Jeremiah PASTOR mg capsule mg capsule warfarin 1 warfarin 1 Bindu 1mg Unknown mg tablet mg tablet 08-13 Jeremiah PASTOR warfarin 1 warfarin 1 Bindu 1mg Unknown mg tablet mg tablet 08-12 Jeremiah PASTOR Oxygen 2L/M Oxygen 2L/M [place] 4 L Unknown 08-30 Jeremiah PASTOR /min warfarin 1 warfarin 1 Bindu 1mg Unknown mg tablet mg tablet 09-17 Jeremiah PASTOR warfarin 1 warfarin 1 Bindu 1mg Unknown mg tablet mg tablet 09-24 Jeremiah PASTOR warfarin 1 warfarin 1 2016-0 2016- No Bindu 1mg Unknown mg tablet mg tablet 09-30 Jeremiah PASTOR warfarin 1 warfarin 1 2015- No [place] 1mg Unknown mg tablet mg tablet 09-24 Jeremiah PASOTR Coumadin 2 Coumadin 2 2015- No [place] 5-6mg Unknown mg tablet mg tablet 09-30 Jeremiah PASTOR warfarin 1 warfarin 1 2015- No [place] 5mg Unknown mg tablet mg tablet 10-14 [...] recheck warfarin 1 warfarin 1 2015- No [place] per inr Unknown mg tablet mg tablet [...] 11/18. warfarin 1 warfarin 1 2015- No [place] perinr Unknown mg tablet mg tablet 11-18 Jeremiah PASTOR on 11/18 take 6 mg daily recheck 2 weeks on 12/02 Oxygen 2L/M Oxygen 2L/M 2015- No [place] 4 L Unknown 11-22 Jeremiah PASTOR /min warfarin 1 warfarin 1 2015- No [place] perinr Unknown mg tablet mg tablet 11-22 [...] inr on 12/09 amoxicillin amoxicillin 2015- No [place] 1 tab Unknown 500 500 12-04 Jeremiah PASTOR mg-potassiu mg-potassiu m m clavulanate clavulanate 125 mg 125 mg tablet tablet oxygen oxygen 2015- No [place] 3 Unknown 11-25 Jeremiah PASTOR liters in the home and 4 liters while out of the home warfarin 1 warfarin 1 2015- No [place] per inr Unknown mg tablet mg tablet 12-09 Jeremiah PASTOR on 12/09 take mon 6mg , tu, 4mg, thu 6mg, 6mg, thu 6mg, sat and sun 6mg, recheck on 12/16 warfarin 1 warfarin 1 2015- No [place] 6mg Unknown mg tablet mg tablet 12-16 Jeremiah PASTOR recheck INR 12/23 Dilantin Dilantin 2015- No [place] 2 tabs Unknown Kapseal 100 Kapseal 100 12-20 Jeremiah PASTOR AM & mg capsule mg capsule BED furosemide furosemide 2015-03- No [place] take Unknown 40 mg 40 mg 01-01 Jeremiah PASTOR one tablet tablet tablet by mouth bid carvedilol carvedilol 2015-03- No Bindu take Unknown 6.25 mg 6.25 mg 01-01 Jeremiah PASTOR one- tablet tablet half tablet by mouth bid oxygen oxygen 2015-03 No Bindu 3.5 Unknown 0 Jeremiah PASTOR litters at home and 4.5 out of the home Coumadin 1 Coumadin 1 2015-03- No [place] take Unknown mg tablet mg tablet 0-03 01- Jeremiah PASTOR 6tabs q bedtime to prevent blood clots [facility] 01/08 carvedilol carvedilol 2015-03- [place] take Unknown 6.25 mg 6.25 mg 0- [...] 01/20 Coumadin 1 Coumadin 1 2015-03- No [place] 6 tabs Unknown mg tablet mg tablet [...] tablet 05-11 Jeremiah PASTOR Landiegous 2015-03- No [place] 32 Unknown Solostar Solostar 05-11 Jeremiah PASTOR Units U-100 U-100 Insulin 100 Insulin 100 unit/mL (3 unit/mL (3 mL) mL) subcutaneou subcutaneou s pen s pen Coumadin 1 Coumadin 1 2015-03- No [place] 6mg Unknown mg tablet mg tablet 05-19- Jeremiah PASTOR (Suni/Edward es/Josephine s/Sat)- 9mg M/W/F Coumadin 1 Coumadin 1 2016- No [place] 8mg X1 Unknown mg tablet mg tablet 03-25 Jeremiah PASTOR (03/25/16 ), then M,W,F 9mg, other days 6mg. RECHECK INR 04/01/16 insulin insulin 2016- No Bindu 32 Unknown glargine glargine 03-25 Jeremiah PASTOR Units (U-100) 100 (U-100) 100 unit/mL unit/mL subcutaneou subcutaneou s solution s solution cephALEXin cephALEXin 2016- No [place] 500mg Unknown 500 mg 500 mg 03-27 Jeremiah PASTOR capsule capsule insulin insulin 2016- No [place] 37 Unknown glargine glargine 03-27 Jeremiah PASTOR Units (U-100) 100 (U-100) 100 unit/mL unit/mL subcutaneou subcutaneou s solution s solution Coumadin 1 Coumadin 1 2016- No [place] 8mg X1 Unknown mg tablet mg tablet [...] tablet Coumadin 1 Coumadin 1 2016- No [place] 6-9 Unknown mg tablet mg tablet 04-01 Jeremiah PASTOR tabs insulin insulin 2016- Bindu 25 Unknown glargine glargine 04-01 Jeremiah PASTOR Units (U-100) 100 (U-100) 100 unit/mL unit/mL subcutaneou subcutaneou s solution s solution warfarin 1 warfarin 1 2016- No [place] 6mg Unknown mg tablet mg tablet 04-08 Jeremiah PASTOR warfarin 1 warfarin 1 2016- No Bindu 9mg Unknown mg tablet mg tablet 04-08 Jeremiah PASTOR warfarin 1 warfarin 1 2016- No Bindu 6 tabs Unknown mg tablet mg tablet 04-08 Jeremiah PASTOR (Thu/ es/Thur s/Sat) warfarin 1 warfarin 1 2016- No [place] 6 tabs Unknown mg tablet mg tablet 04-08 Jeremiah PASTOR (Thu/ es/Thur s/Sat) warfarin 1 warfarin 1 2016- No Bindu 9 tabs Unknown mg tablet mg tablet 04-08 Jeremiah PASTOR (Thu/ d/Thu) acetaminoph acetaminoph No [place] 2 tab Unknown en 325 mg en 325 mg 04-21 Jeremiah PASTOR tablet tablet warfarin 1 warfarin 1 2016- No [place] 11 tabs Unknown mg tablet mg tablet 05-05 Jeremiah PASTOR warfarin 1 warfarin 1 2016- No Bindu 9 tabs Unknown mg tablet mg tablet 05-06 Jeremiah PASTOR (Thu/ d/Thu) Keflex 500 Keflex 500 2016- No Bindu 1 Unknown mg capsule mg capsule 05-24 Jeremiah PASTOR warfarin 1 warfarin 1 2016- No [place] 6-9 Unknown mg tablet mg tablet 06-12 Jeremiah PASTOR tablets (6-9 mgs) senna 8.6 senna 8.6 2017- No [place] 1-2 tab Unknown mg tablet mg tablet [...] capsule warfarin 1 warfarin 1 2016- No [place] 11 Unknown mg tablet mg tablet 07-14 ,Jeremiah tablets -07/14, 9 tabs M/W/F and 6tabs T//F/ Sat/Sun cephALEXin cephALEXin 2016- No [facility] 1 cap Unknown 500 mg 500 mg 07-08 ,Jeremiah capsule capsule warfarin 1 warfarin 1 2016- No [place] 3 tabs Unknown mg tablet mg tablet 07-21 Jeremiah PASTOR 5/1,2 tabs 5/2,3 tabs 5/3,2 tabs 5/4,3 tabs 5/5,3 tabs 5/6,2 tabs 5/7 warfarin 3 warfarin 3 2016- No [facility] 3 tabs Unknown mg tablet mg tablet 07-21 Jeremiah PASTOR 5/1,2 tabs 5/2,3 tabs 5/3,2 tabs 5/4,3 tabs 5/5,3 tabs 5/6,2 tabs 5/7 warfarin 3 warfarin 3 2016- No [place] 3 tabs Unknown mg tablet mg tablet 07-21 Jeremiah PASTOR Mon,Wed ,Fri,Sa t 2 tabs Sun,Tue s,Thur repeat INR 5/15 warfarin 3 warfarin 3 2016- No [facility] 4.5 mg Unknown mg tablet mg tablet 08-04 Jeremiah PASTOR for today only then:6m g Tues and Thurs,9 mg Mon Wed Fri Sat and Sun repeat INR 5/22 warfarin 3 warfarin 3 2016- No [place] 2 tabs Unknown mg tablet mg tablet 08-11 Jeremiah PASTOR (6 mg Tues and Thurs), 3 tabs (9mg Mon/Wed /Fri/Sa t/Sun enoxaparin enoxaparin [facility] 1ml Unknown sodium 100 sodium 100 08-19 Jeremiah PASTOR/1mL mg/1mL subcutaneou subcutaneou s syringe s syringe HYDROcodone HYDROcodone [place] 1 tab Unknown 5 5 08-19 Jeremiah PASTOR mg-acetamin mg-acetamin ophen 325 ophen 325 mg tablet mg tablet warfarin 3 warfarin 3 [place] 2 tabs Unknown mg tablet mg tablet 08-19 Jeremiah PASTOR (6 mg and ), 3 tabs (9mg Thu/Thu /Thu/ t/Sun warfarin 3 warfarin 3 [facility] 2 tabs Unknown mg tablet mg tablet 08-19 Jeremiah PASTOR (6 mg and ), 3 tabs (9mg Thu/Thu /Thu/ t/Sun warfarin 3 warfarin 3 [place] 4 tabs Unknown mg tablet mg tablet 08-21 Jeremiah PASTOR 6/2 and 08/23 repeat INR 6/5 cephALEXin cephALEXin [place] 1 cap Unknown 500 mg 500 mg 08-22 Jeremiah PASTOR for 4 capsule capsule days warfarin 3 warfarin 3 [place] 12mg Unknown mg tablet mg tablet 08-25 Jeremiah PASTOR 6/6,9mg 7-08/21 1 repeat INR 6/12 warfarin 3 warfarin 3 No [place] 12mg Unknown mg tablet mg tablet 08-25 Jeremiah PASTOR 6/6,9mg /7-08/21 1 repeat INR 6/12 warfarin 3 warfarin 3 2016- No [place] 12mg Unknown mg tablet mg tablet 09-01 [...] solution warfarin 3 warfarin 3 2016- No [place] hold Unknown mg tablet mg tablet 10-14 Jeremiah PASTOR 10/14,9m g thu,thu s, sat and sun,6mg mon and fri,rep eat INR 87 insulin insulin 2017- No [facility] 35 Unknown glargine glargine 10-20 Jeremiah PASTOR Units (U-100) 100 (U-100) 100 unit/mL unit/mL subcutaneou subcutaneou s solution s solution warfarin 3 warfarin 3 2016- No [place] hold Unknown mg tablet mg tablet 10-27 Jeremiah PASTOR until 10/29 repeat INR 10 warfarin 3 warfarin 3 2016- No [facility] 9mg Unknown mg tablet mg tablet 10-30 Jeremiah PASTOR thursday and da y,6mg Thu.,Fr i,and Sun,rep eat INR 11/03 warfarin 3 warfarin 3 2016- No [place] 7.5mg Unknown mg tablet mg tablet 11-03 [...] 9/5 warfarin 3 warfarin 3 2016- No [place] hold Unknown mg tablet mg tablet 11-25 Jeremiah PASTOR 11/25 then 6mg sat,9mg Thu Fri and Sun warfarin 3 warfarin 3 [place] hol on Unknown mg tablet mg tablet 12-09 Jeremiah PASTOR,9m g Wed and Sat,6mg the rest of the week and repeat INR on 12/16 warfarin 3 warfarin 3 2016- [place] hold on Unknown mg tablet mg tablet [...] to clinic on 01/05 cephALEXin cephALEXin 2016-03 [place] 1 Unknown 500 mg 500 mg 01-10 Jeremiah PASTOR Tablet capsule capsule warfarin 3 warfarin 3 2016-03- [place] hold Unknown mg tablet mg tablet 01-20 Jeremiah PASTORight ,6mg daily ,9mg just on Sat. repeat INR in 2wks warfarin 3 warfarin 3 2016-03- No [facility] 9mg Unknown mg tablet mg tablet 01-27 Jeremiah PASTOR 01/20 ,6mg daily ,9mg just on Sat. repeat INR 02/03 warfarin 3 warfarin 3 2016-03- No [place] 6mg Unknown mg tablet mg tablet 03-29 Jeremiah PASTOR daily,9 mg Thursday, repeat INR 11/14,1 04/12,,,04/14 ,05/12,3 ,4/2 4,08/11, 09/08,,11/10 ,12/08,1 warfarin 3 warfarin 3 2016-03- No [place] 6mg Unknown mg tablet mg tablet 04-12 [...] 5 mg Ambien 5 mg 2017- No [place] / tab Unknown tablet tablet 04-03 Jeremiah PASTOR warfarin 3 warfarin 3 2017- No [facility] increas Unknown mg tablet mg tablet 04-03 Jeremiah PASTOR 03/24 tab 04/04,6m g daily, 9mg Sun,6mg daily repeat INR 02/03,1 04/12,,,04/14 ,05/12,,4 4,08/11, 09/08,,11/10 ,12/08,1 warfarin 3 warfarin 3 2017- No [place] ,6mg Unknown mg tablet mg tablet 04-07 Jeremiah PASTOR daily, 9mg Sun, repeat INR 04/14,,06/09 ,07/14,,6 9,10/01, 11/10,,12/22 3 warfarin 3 warfarin 3 2017- No [facility] hold Unknown mg tablet mg tablet 04-13 Jeremiah PASTOR 04/13 2mg 04/14,6m g dailly, 9mg Sun, repeat INR 04/20,2,3 ,07/14,5 ,6 9,10/01, 11/10,,10 3 metoprolol metoprolol No [place] 25mg Unknown tartrate 25 tartrate 25 - Jeremiah PASTOR mg tablet mg tablet Ambien 10 Ambien 10 2017- No [place] 10 mg Unknown mg tablet mg tablet [...] 05/26 warfarin 3 warfarin 3 2017- No [place] 2-3 Unknown mg tablet mg tablet 05-26 Jeremiah PASTOR tabs cephALEXin cephALEXin 2017- No [place] 1 cap Unknown 500 mg 500 mg [...] week warfarin 3 warfarin 3 2017- No [place] 6mg Unknown mg tablet mg tablet 06-22 [...] or 08/11 Ambien 10 Ambien 10 No [place] 1/2 tab Unknown mg tablet mg tablet 08-03 ,Jeremiah warfarin 3 warfarin 3 2017- No [facility] 9mg Unknown mg tablet mg tablet 08-10 Jeremiah PASTOR ,3mg tues,th urs,sat ,6mg thu,thu ,thu,an d sun.Rep eat INR in 2 wks warfarin 3 warfarin 3 2017- No [place] 6mg Unknown mg tablet mg tablet 08-24 Jeremiah PASTOR-Sun,3 mg Tues and Sat repeat on 08/31 or 09/01 cephALEXin cephALEXin 2017- No [place] 1 tab Unknown 500 mg 500 mg 08-29 Jeremiah PASTOR tablet tablet warfarin 3 warfarin 3 2017- No [place] 6mg Unknown mg tablet mg tablet 09-01 Jeremiah PASTORSun,3 mg Tues and Sat repeat on 08/31 or 09/01 warfarin 3 warfarin 3 2017- No [facility] 6mg Unknown mg tablet mg tablet 09-07 Jeremiah PASTORSuni,3 mg Tues Sat repeat INR 09/14 or 09/15 warfarin 3 warfarin 3 2017- No [facility] Unknown Unknown mg tablet mg tablet 09-15 ,Jeremiah warfarin 3 warfarin 3 2017- No [place] Unknown Unknown mg tablet mg tablet 09-29 ,Jeremiah warfarin 3 warfarin 3 2017- No [facility] Unknown Unknown mg tablet mg tablet 10-13 Jeremiah PASTOR hydrOXYzine hydrOXYzine 2017- No [facility] Unknown Unknown HCl 10 mg HCl 10 mg 11-10 Jeremiah PASTOR tablet tablet warfarin 3 warfarin 3 2017- No [place] Unknown Unknown mg tablet mg tablet 11-11 ,Jeremiah warfarin 3 warfarin 3 2017- No [facility] Unknown Unknown mg tablet mg tablet 11-24 ,Jeremiah amoxicillin amoxicillin 2017- No [place] Unknown Unknown 125 mg 125 mg 12-01 ,Jeremiah tablet tablet prednisone prednisone 2017- No [facility] Unknown Unknown 20 mg 20 mg 12-01 ,Jeremiah tablet tablet warfarin 3 warfarin 3 2017- No [facility] Unknown Unknown mg tablet mg tablet 12-08 MD,Jeremiah warfarin 3 warfarin 3 2017-03- No [facility] Unknown Unknown mg tablet mg tablet 01-26 MD,Jeremiah warfarin 3 warfarin 3 2017-03- No [place] Unknown Unknown mg tablet mg tablet 03-28 MD,Jeremiah warfarin 3 warfarin 3 2017-03- No [place] Unknown Unknown mg tablet mg tablet 04-04 ,Jeremiah warfarin 3 warfarin 3 2017-03- No [place] Unknown Unknown mg tablet mg tablet 04-18 ,Jeremiah warfarin 3 warfarin 3 2017-03- No [place] Unknown Unknown mg tablet mg tablet 04-26 ,Jeremiah warfarin 3 warfarin 3 2017-03- No [facility] Unknown Unknown mg tablet mg tablet 04-26 ,Jermeiah atorvastati atorvastati 2017-03 No [place] Unknown Unknown n 40 mg n 40 mg 05-16 Jeremiah PASTOR tablet tablet insulin insulin 2017-03- No [place] Unknown Unknown glargine glargine 05-16 Jeremiah PASTOR (U-100) 100 (U-100) 100 unit/mL unit/[facility] s solution sennosides sennosides 2017-03- No [place] Unknown Unknown 8.6 mg 8.6 mg 05-16 ,Jeremiah tablet tablet warfarin 3 warfarin 3 2017-03- No [place] Unknown Unknown mg tablet mg tablet 03-22 ,Jeremiah warfarin 3 warfarin 3 2017-03- No [place] Unknown Unknown mg tablet mg tablet 03-31 ,Jeremiah lisinopril lisinopril 2017-03 No [place] Unknown Unknown 5 mg tablet 5 mg tablet 05-16 Jeremiah PASTOR omeprazole omeprazole 2017-03- No [facility] Unknown Unknown magnesium magnesium 05-16 12-24 Jeremiah PASTOR 20 mg 20 mg tablet,skyler tablet,skyler yed release yed release omeprazole omeprazole 2017-03- No [place] Unknown Unknown magnesium magnesium 05-16 05-14 Jeremiah PASTOR 20 mg 20 mg tablet,skyler tablet,skyler yed release yed release cholecalcif cholecalcif 2017-03 No [place] Unknown Unknown rob rob 2-24 Jeremiah PASTOR (vitamin (vitamin D3) 1,000 D3) 1,000 unit (25 unit (25 mcg) tablet mcg) tablet hydrOXYzine hydrOXYzine 2017-03 No [facility] Unknown Unknown HCl 10 mg HCl 10 mg 05-16 Jeremiah PASTOR tablet tablet warfarin 3 warfarin 3 2018- No [place] Unknown Unknown mg tablet mg tablet 03-31 Jeremiah PASTOR predniSONE predniSONE 2018- No [facility] Unknown Unknown 20 mg 20 mg 03-31 Jeremiah PASTOR tablet tablet phenazopyri phenazopyri 2018- No [place] Unknown Unknown dine 100 mg dine 100 mg 04-01 Jeremiah PASTOR tablet tablet cephALEXin cephALEXin 2018- No [place] Unknown Unknown 500 mg 500 mg 04-30 Jeremiah PASTOR capsule capsule warfarin 3 warfarin 3 2018- No [place] Unknown Unknown mg tablet mg tablet 05-14 Jeremiah PASTOR ciprofloxac ciprofloxac 2018- No [facility] Unknown Unknown in 500 mg in 500 mg 05-14 Jeremiah PASTOR tablet tablet insulin insulin 2018- No [place] Unknown Unknown glargine glargine 05-27 Jeremiah PASTOR [...] s pen injector injector Victoza Victoza No [place] Unknown Unknown 2-Gurinder 0.6 2-Gurinder 0.6 3-20 Jeremiah PASTOR mg/0.1 mL mg/0.1 mL (18 mg/3 (18 mg/3 mL) mL) subcutaneou subcutaneou s pen s pen injector injector mometasone mometasone No [place] Unknown Unknown 220 220 3-18 Jeremiah PASTOR mcg/actuati mcg/actuati on(60 on(60 doses) doses) breath breath activated activated powder powder inhaler inhaler warfarin 3 warfarin 3 2018- No [facility] Unknown Unknown mg tablet mg tablet 06-15-16 Jeremiah PASTOR warfarin 3 warfarin 3 2018- No [facility] Unknown Unknown mg tablet mg tablet 07-06 Jeremiah PASTOR cephALEXin cephALEXin 2018- No [place] Unknown Unknown 500 mg 500 mg 08-03- Jeremiah PASTOR tablet tablet warfarin 3 warfarin 3 2018- No [facility] Unknown Unknown mg tablet mg tablet 08-10 Jeremiah PASTOR warfarin 3 warfarin 3 2018- No [facility] Unknown Unknown mg tablet mg tablet 08-10- Jeremiah PASTOR omeprazole omeprazole No [place] Unknown Unknown magnesium magnesium - Jeremiah PASTOR 20 mg 20 mg tablet,skyler tablet,skyler yed release yed release warfarin 3 warfarin 3 2018- No [facility] Unknown Unknown mg tablet mg tablet 08-31 Jeremiah PASTOR warfarin 3 warfarin 3 2018- No [facility] Unknown Unknown mg tablet mg tablet 09-14 07-10 Jeremiah PASTOR warfarin 3 warfarin 3 2018- No [place] Unknown Unknown mg tablet mg tablet 09-29-14 Jeremiah PASTOR warfarin 3 warfarin 3 2018- No [place] Unknown Unknown mg tablet mg tablet 11-03 Jeremiah PASTOR Augmentin Augmentin 2018- Yes [facility] Unknown Unknown 500 mg-125 500 mg-125 12-14 10- Jeremiah PASTOR mg tablet mg tablet fluconazole fluconazole 2018- Yes [place] Unknown Unknown 100 mg 100 mg 12-14- Jeremiah PASTOR tablet tablet warfarin 3 warfarin 3 Yes [place] Unknown Unknown mg tablet mg tablet 12-14- ,Jeremiah warfarin 3 warfarin 3 2018-03 Yes [facility] Unknown Unknown mg tablet mg tablet 002 10-20 Jeremiah PASTOR carbamide carbamide 2018-03 Yes [place] Unknown Unknown peroxide peroxide 0-09 Jeremiah PASTOR 6.5 % ear 6.5 % ear drops drops cephALEXin cephALEXin 2018-03 Yes [facility] Unknown Unknown 500 mg 500 mg 0-20 - Jeremiah PASTOR capsule capsule doxycycline doxycycline 2018-03 Yes [place] Unknown Unknown monohydrate monohydrate 0-20 - Jeremiah PASTOR 100 mg 100 mg capsule capsule Eliquis 5 Eliquis 5 2018-03 Yes [facility] Unknown Unknown mg tablet mg tablet 0-20 Jeremiah PASTOR oxyCODONE 5 oxyCODONE 5 2018-03 Yes [facility] Unknown Unknown mg tablet mg tablet 0-20 ,Jeremiah Lasix 20 mg Lasix 20 mg 2018-03 Yes [place] Unknown Unknown tablet tablet 0-20 ,Jeremiah insulin insulin 2018-03 Yes [place] Unknown Unknown glargine glargine 0-20 Jeremiah PASTOR [...]
[2019-02-06 09:32] LABS: ABS Eosinophils 0.1 10^3/ul (0-0.6); ABS Monocytes 0.7 10^3/ul (0-0.8); ABS Neutrophils 7.7 10^3/ul (1.5-7.7); Eosinophil % 0.8 %; Hematocrit 35 % (42-52); Hemoglobin 11.3 g/dL (14.0-18.0); Lymphocyte % 10.3 %; Mean Corpuscular HGB Conc 33 g/dL (31-36); Mean Corpuscular Hemoglobin 27 pg (27-31); Mean Corpuscular Volume 84 fL (80-94); Mean Platelet Volume 8.2 fL (7.4-10.4); Platelet Count 171 10^3/uL (150-450); Red Blood Count 4.14 10^6 /uL (4.18-5.48); Red Cell Distribution Width 18 % (10-15); White Blood Count 9.6 10^3/uL (3.5-10.8)
[2019-02-06 09:50] LABS: ALT 17 U/L (7-52); AST 21 U/L (13-39); Albumin 3.5 g/dL (3.2-5.2); Albumin/Globulin Ratio 1.2 (1-3); Alkaline Phosphatase 133 U/L (34-104); Anion Gap 7 mmol/L (2-11); BUN/Creatinine Ratio 21.7 (8-20); Blood Urea Nitrogen 30 mg/dL (6-24); C Reactive Protein 21.63 mg/L (<8.01); CO2 Carbon Dioxide 28 mmol/L (22-32); Calcium 9.1 mg/dL (8.6-10.3); Chloride 109 mmol/L (101-111); EGFR African American 59.8 (>60); EGFR Non-African American 49.5 (>60); Glucose 136 mg/dL (70-100); Potassium 4.1 mmol/L (3.5-5.0); Sodium 144 mmol/L (135-145); Total Protein 6.5 g/dL (6.4-8.9)
[2019-02-06 10:00] LABS: Troponin I 0.04 ng/mL (<0.04)
[2019-02-06] MEDS ORDERED: Albuterol 2.5 MG/3 ML NEB.SOL* (0.083%) INH PRN (13:25)
[2019-02-06] MEDS ORDERED: Ondansetron INJ* 2 MG/ML VIAL IV PRN (13:25)
[2019-02-06] MEDS ORDERED: oxyCODONE TAB* 5 MG TAB PO PRN (13:30)
[2019-02-06] MEDS ORDERED: Senna TAB 8.6 mg* TAB PO PRN (13:30)
[2019-02-06] MEDS ORDERED: Zolpidem TAB* 5 MG PO PRN (13:30)
[2019-02-06] MEDS ORDERED: Lactated Ringers 1000 ML Bag* 1,000 ML IV ONE (13:42)
[2019-02-06] MEDS ORDERED: Dextrose 50% VIAL 50 ml IV PUSH PRN (13:46)
[2019-02-06] MEDS: Albuterol/Ipratropium NEB.SOL* Albuterol 2.5 MG/Ipratropium 0.5 MG 3 ML INH SCH ×3 (14:58→22:51)
[2019-02-06] MEDS: DOXYcycline IV* 100 MG in NS 0.9% 250 ML* 250 ML IVPB SCH (16:34)
[2019-02-06] MEDS: Insulin LISPRO* 1 UNITS UNIT SUBCUT SCH ×2 (16:44→21:24)
--- NOTE | 2019-02-06 16:45 | HP ---
CC: Dr. Jeremiah Ruano * ADMISSION HISTORY AND PHYSICAL: DATE OF ADMISSION: 02/06/19 PRIMARY CARE PROVIDER: Dr. Jeremiah Ruano at the [facility]. MY ATTENDING WHILE IN THE HOSPITAL: Oivdio Hurley MD * (DICTATED BY THERESA OLEA) CHIEF COMPLAINT: Shortness of breath, worsening x3 days. HISTORY OF PRESENT ILLNESS: Mr. Escamilla is an 83-year-old male with a complex past medical history significant for COPD with chronic hypoxic respiratory failure, on 3 to 4 L at home at all times; severe aortic stenosis, obstructive sleep apnea, paroxysmal atrial fibrillation, heart failure with preserved ejection fraction who presents to the emergency department on 02/03/19. He had an amputation of his left fifth toe for chronic osteomyelitis which he had been previously admitted to the hospital and thereafter began to develop shortness of breath with wheezing, subjective fevers, and cough productive of white sputum consistent with previous COPD exacerbation that he had. He did not have any other changes to his meds. He did not have any other sick contacts. He does, however, come to the hospital daily for lunch and dinner with his caregiver and cousin. The patient has a recent weight loss significant over for several months and is generally short of breath all the time except for the last 3 days, this has not gotten significantly worse in the recent past. The patient denies any chest pain. The patient not eaten anything out of ordinary or engaged in any significant travel. No recent immobilization nor has he missed any doses. He has taken his home inhalers, that have not helped. In the emergency department, the patient was found to have increased shortness of breath and oxygen demand and needing 5 L to maintain a saturation above 95% due to concern for COPD exacerbation. We were asked to evaluate the patient for admission to the hospital. PAST MEDICAL HISTORY: 1. COPD. 2. Chronic hypoxic respiratory failure, on 3 to 4 L. 3. Severe aortic stenosis. 4. Obstructive sleep apnea/obesity hypoventilation syndrome. 5. Hypertension. 6. Chronic kidney disease. 7. Atrial fibrillation. 8. Diabetes mellitus, type 2. 9. History of skin cancer. 10. Heart failure with preserved ejection fraction. 11. Coronary artery disease status post bypass. 12. Depression. 13. History of CVA. PAST SURGICAL HISTORY: 1. CABG. 2. Hernia repair. 3. Tracheostomy and reversal. 4. Recent amputation of left fifth toe as above. MEDICATIONS: The patient is not able to verify his medications; however, he states they have not changed since his most recent discharge from the hospital on 01/09/19. His medications at that time were: 1. Albuterol metered dose inhaler 2 puffs q.4 hours as needed for wheezing. 2. Aspirin 81 mg p.o. daily. 3. Atorvastatin 40 mg p.o. daily. 4. Debrox 5 drops both ears twice a day for 4 days. 5. Carboxymethylcellulose 1% ophthalmic drops q.2 hours as needed for dry eyes. 6. Vitamin D 1000 mg p.o. daily. 7. Proscar 5 mg p.o. daily. 8. Robitussin 5 mL q.4 hours as needed for cough. 9. Hydroxyzine 10 mg p.o. t.i.d. as needed for itching or anxiety. 10. Victoza 1.2 mg subcutaneous daily. 11. Lisinopril 5 mg p.o. daily. 12. Mometasone 220 mcg inhale b.i.d. 13. Omeprazole 20 mg p.o. daily. 14. Senna 2 tabs p.o. b.i.d. as needed for constipation. 15. Sertraline 100 mg p.o. daily. 16. Zolpidem 5 mg p.o. daily. 17. Tylenol 650 mg p.o. q.4 hours as needed. 18. Eliquis 2.5 mg p.o. b.i.d. 19. Cephalexin 500 mg p.o. b.i.d. 20. Doxycycline 100 mg p.o. b.i.d. 21. Furosemide 20 mg p.o. b.i.d. 22. Lantus 20 units subcutaneous q.12 hours. 23. Metoprolol 25 mg p.o. b.i.d. 24. Oxycodone 5 mg p.o. q.4 hours as needed. ALLERGIES: NITROGLYCERIN, IV CONTRAST DYE, LEVOFLOXACIN. FAMILY HISTORY: The patient's father had rectal cancer. The patient's mother had colon cancer. The patient has 6 siblings, 2 brothers have cancer and another sister of "grief after her ." SOCIAL HISTORY: The patient never smoked, drank, or used illicit drugs. 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 The patient is no longer and has 8 daughters. The patient's surrogate decision maker will be his cousin, Mike, who is his caregiver. REVIEW OF SYSTEMS: A 10-point review of systems was reviewed and is negative except as above in the HPI. PHYSICAL EXAMINATION GENERAL: The patient is an 83-year-old male who appears older than stated age, sitting in the bed with significantly increased work of breathing. VITAL SIGNS: Temperature 97.7, pulse rate 96, respiratory rate 22, oxygen saturation 92% on 5 L, and blood pressure 129/71. HEENT: Head: Normocephalic, atraumatic. Sclerae anicteric. No conjunctival injection. Nasal mucosa moist. Oral mucosa dry. Postnasal drip noted in the posterior pharynx. No pharyngeal erythema or exudate. NECK: Supple, nontender. No lymphadenopathy. No carotid bruits auscultated. No JVD. RESPIRATORY: Diminished in the bases. No wheezes, rales, rhonchi. Good air exchange bilaterally. CARDIAC: Tachycardic. No clicks, murmurs, gallops, or rubs. Pulses are 2+ in the dorsalis pedis, posterior tibial, and radial areas. Limited exam due to COPD. ABDOMEN: Soft, nontender, nondistended. Bowel sounds present, normoactive in all 4 quadrants. No hepatosplenomegaly. No abdominal bruits auscultated. No hepatojugular reflux. GENITOURINARY: No suprapubic or CVA tenderness. NEURO: Cranial nerves II through XII intact. No focal deficits. Alert and oriented x3. PSYCHIATRIC: Pleasant and cooperative. SKIN: Clean and intact. No rash. Fifth toe surgically absent without signs of infection at amputation site. DIAGNOSTIC STUDIES/LAB DATA: White blood cell count 9.6, hemoglobin 11.3, platelet count 171. Blood gas shows pH of 7.44, pCO2 of 37, pO2 of 158, oxygen saturation 98% on 15 L. Sodium 144, potassium 4.1, chloride 109, carbon dioxide 28, anion gap 7, BUN 30, creatinine 1.38, glucose 136. Lactic acid 1.7. Calcium 9.1. Bilirubin 0.9, AST 21, ALT 17, alkaline phosphatase 133. Troponin I 0.04. CRP 21.63. BNP 742. Protein 6.5. Albumin 3.5. Chest x-ray read as elevated right diaphragm which is at least partially due to elevation of the hemidiaphragm, pleural effusion. EKG shows left bundle-branch block, atrial fibrillation, rate of 108, QTc of 534, difficult to interpret ST segment, no significant changes from previous exam. ASSESSMENT AND PLAN: Impression: Mr. Escamilla is an 83-year-old male with a complex past medical history significant for chronic obstructive pulmonary disease, severe aortic stenosis, obstructive sleep apnea, and heart failure with preserved ejection fraction, who presents to the emergency department after 3 days of worsening shortness of breath diagnosed with COPD exacerbation, who was admitted to the ICU for close monitoring, oxygen therapy, and possible need for high flow oxygen. 1. Chronic obstructive pulmonary disease exacerbation. The patient had no signs of pneumonia. The patient with no fevers. The patient is tachycardic, likely related to inhalation treatments, possible dehydration. The patient will be treated with ongoing inhalers, steroids, doxycycline for its antiinflammatory effects, though he was already on this at home for his toe and he is currently on 5 L, but appears fatigued. The patient will be placed in the ICU for monitoring at least overnight and possible need for Vapotherm as needed. The patient does not need beta-lactam antibiotics at this time for possible pneumonia, though if he develops a fever or other signs of respiratory infection, this may be added on. The patient will have pulmonary toileting with flutter valve incentive spirometry and guaifenesin. 2. Obstructive sleep apnea. The patient will have a CPAP at night. He is requesting now for a nap, which seemed appropriate. 3. Severe aortic stenosis. The patient likely very fluid sensitive. The patient will have 1 L of fluid for dehydration and we will monitor closely for signs of respiratory deterioration. The patient's Lasix will be held at this time. 4. Heart failure with preserved ejection fraction. See above aortic stenosis discussion. 5. Hypertension. The patient is currently normotensive. Continue the patient' s beta-placido. Hold the patient's lisinopril and Lasix. 6. Diabetes mellitus, type 2. The patient will have fingersticks a.c. h.s. and insulin sliding scale. His Victoza will be held due to unavailability while in the hospital. 7. Abnormal weight loss. This should be followed with the patient's outpatient provider. This may be due to his deteriorating respiratory status. 8. Chronic kidney disease. Stable. 9. Coronary artery disease. Continue aspirin, Eliquis, and statin. 10. Atrial fibrillation. Continue the patient's Eliquis. The patient is currently in atrial fibrillation. Continue metoprolol. 11. DVT prophylaxis, on Eliquis. 12. FEN. The patient will have a consistent carbohydrate diet and fluids as above. 13. Disposition. The patient will be admitted inpatient to the ICU with an estimated length of stay greater than 2 to 3 days. TIME SPENT: Approximately 60 minutes was spent on this admission of this patient, 30 of which was spent [id number] with the patient obtaining history and physical and discussing treatment plan. This plan has been discussed with my attending, Dr. Ovidio Hurley, and he is in agreement. THERESA OLEA [id number]/[facility] #: [id number] [place]
[2019-02-06] MEDS: Mometasone/Formoter 200/5 MDI INH SCH (19:28)
[2019-02-06] MEDS: Apixaban* 2.5 MG TAB PO SCH (21:19)
[2019-02-06] MEDS: Cephalexin CAP* 500 MG PO SCH (21:19)
[2019-02-06] MEDS: Metoprolol Tartrate TAB* 25 MG PO SCH (21:19)
[2019-02-06] MEDS: guaiFENesin ER TAB 600 MG PO SCH (21:19)
[2019-02-06] MEDS: Insulin GLARGINE(*) 1 UNITS UNIT SUBCUT SCH (21:24)
[2019-02-07] MEDS: DOXYcycline IV* 100 MG in NS 0.9% 250 ML* 250 ML IVPB SCH ×2 (03:01→15:21)
[2019-02-07] MEDS: Albuterol/Ipratropium NEB.SOL* Albuterol 2.5 MG/Ipratropium 0.5 MG 3 ML INH SCH ×2 (06:32→07:32)
[2019-02-07 06:50] LABS: ABS Monocytes 1.1 10^3/ul (0-0.8); ABS Neutrophils 10.6 10^3/ul (1.5-7.7); Eosinophil % 0.1 %; Hematocrit 33 % (42-52); Hemoglobin 10.5 g/dL (14.0-18.0); Lymphocyte % 7.9 %; Mean Corpuscular HGB Conc 32 g/dL (31-36); Mean Corpuscular Hemoglobin 27 pg (27-31); Mean Corpuscular Volume 85 fL (80-94); Mean Platelet Volume 8.5 fL (7.4-10.4); Nucleated Red Blood Cells % 0.1; Platelet Count 164 10^3/uL (150-450); Red Blood Count 3.87 10^6 /uL (4.18-5.48); Red Cell Distribution Width 18 % (10-15); White Blood Count 12.8 10^3/uL (3.5-10.8)
[2019-02-07 06:59] LABS: Calcium 8.8 mg/dL (8.6-10.3); Magnesium 1.8 mg/dL (1.9-2.7); Potassium 4.2 mmol/L (3.5-5.0)
[2019-02-07 07:05] LABS: BUN/Creatinine Ratio 26.4 (8-20); EGFR Non-African American 47.1 (>60)
[2019-02-07] MEDS ORDERED: Magnesium Sulfate 2 GM IV* 2 GM/50 ML BAG IVPB ONE (07:27)
[2019-02-07] MEDS: Insulin LISPRO* 1 UNITS UNIT SUBCUT SCH ×4 (07:45→21:31)
[2019-02-07] MEDS: Metoprolol Tartrate TAB* 25 MG PO SCH ×2 (07:54→21:27)
[2019-02-07] MEDS: Aspirin EC TAB* 81 MG TAB.EC PO SCH (07:54)
[2019-02-07] MEDS: predniSONE TAB* 20 MG PO SCH (07:54)
[2019-02-07] MEDS: guaiFENesin ER TAB 600 MG PO SCH ×2 (07:54→21:27)
[2019-02-07] MEDS: Finasteride TAB* 5 MG PO SCH (07:55)
[2019-02-07] MEDS: Atorvastatin* 40 MG TAB PO SCH (07:55)
[2019-02-07] MEDS: Sertraline* 100 MG TAB PO SCH (07:55)
[2019-02-07] MEDS: Cholecalciferol TAB* 1000 UNITS PO SCH (07:55)
[2019-02-07] MEDS: Cephalexin CAP* 500 MG PO SCH ×2 (07:55→21:27)
[2019-02-07] MEDS: Pantoprazole TAB * 40 MG TAB PO SCH (07:55)
[2019-02-07] MEDS: Apixaban* 2.5 MG TAB PO SCH ×2 (07:55→21:27)
[2019-02-07] MEDS ORDERED: Furosemide IV* 10 MG/ML VIAL (40 MG) IV ONE (08:50)
[2019-02-07] MEDS: SPIRIVA Respimat* (tiotropium) 2.5 mcg/inh Inhaler INH SCH (09:20)
[2019-02-07] MEDS: Mometasone/Formoter 200/5 MDI INH SCH ×2 (09:20→20:11)
[2019-02-07] MEDS: Insulin GLARGINE(*) 1 UNITS UNIT SUBCUT SCH ×2 (09:20→21:37)
[2019-02-07] MEDS: hydrOXYzine HCL TAB* 10 MG PO PRN (09:53)
--- NOTE | 2019-02-07 16:21 | PN ---
Subjective Date of Service: 02/07/19 Interval History: Patient seen and examined in ICU this morning. Patient has been maintaining his saturations on 4-5L NC, had no need for vapotherm overnight. He does have some increased WOB however, but no further issues. Denies chest pain, no fevers or chills. Per RN, patient has been hemodynamically stable. Objective Active Medications: Acetaminophen (Tylenol Tab*) 650 mg PO Q6H PRN PRN Reason: MILD PAIN or TEMP > 100.4 Albuterol (Ventolin 2.5 Mg/3 Ml Neb.Kika*) 2.5 mg INH Q2H PRN PRN Reason: SOB/WHEEZING Apixaban (Eliquis*) 2.5 mg PO BID COUNT INCLUDES [facility] Last Admin: 02/07/19 07:55 Dose: 2.5 mg Aspirin (Aspirin Ec Tab*) 81 mg PO QAM COUNT [facility]CLUDES [facility] Last Admin: 02/07/19 07:54 Dose: 81 mg Atorvastatin Calcium (Lipitor*) 40 mg PO DAILY COUNT INCLUDES [facility] Last Admin: 02/07/19 07:55 Dose: 40 mg Benzonatate (Tessalon Cap*) 100 mg PO BID PRN PRN Reason: COUGH Cephalexin HCl (Keflex Cap*) 500 mg PO BID COUNT INCLUDES [facility] Last Admin: 02/07/19 07:55 Dose: 500 mg Cholecalciferol (Vitamin D Tab*) 1,000 units PO DAILY COUNT [facility]CLUDES [facility] Last Admin: 02/07/19 07:55 Dose: 1,000 units Dextrose (Dextrose 50% Vial 50 Ml*) 25 ml IV PUSH .FOR FS < 60 - SS PRN PRN Reason: FS < 60 Finasteride (Proscar Tab*) 5 mg PO DAILY [facility]CLUDES [facility] Last Admin: 02/07/19 07:55 Dose: 5 mg Guaifenesin (Mucinex*) 1,200 mg PO BID COUNT [facility]CLUDES [facility] Last Admin: 02/07/19 07:54 Dose: 1,200 mg Hydroxyzine HCl (Atarax Tab*) 10 mg PO TID PRN PRN Reason: ANXIETY Last Admin: 02/07/19 09:53 Dose: 10 mg Doxycycline Hyclate 100 mg/ (Sodium Chloride) 250 mls @ 250 mls/hr IVPB Q12H COUNT INCLUDES [facility] Last Admin: 02/07/19 15:21 Dose: 250 mls/hr Insulin Glargine (Lantus(*)) 20 units SUBCUT BID COUNT [facility]CLUDES [facility] Last Admin: 02/07/19 09:20 Dose: Not Given Insulin Human Lispro (Humalog*) 0 units SUBCUT ACHS COUNT INCLUDES [facility]; Protocol Last Admin: 02/07/19 12:57 Dose: 2 units Metoprolol Tartrate (Lopressor Tab*) 25 mg PO BID COUNT [facility]CLUDES [facility] Last Admin: 02/07/19 07:54 Dose: 25 mg Mometasone Furoate/Formoterol Fumar (Dulera 200/5 Mdi*) 2 puff INH BID COUNT [facility]CLUDES [facility] Last Admin: 02/07/19 09:20 Dose: 1 dose Ondansetron HCl (Zofran Inj*) 4 mg IV Q6H PRN PRN Reason: NAUSEA Oxycodone HCl (Roxycodone Tab*) 5 mg PO QID PRN PRN Reason: PAIN - MODERATE Pantoprazole Sodium (Protonix Tab*) 40 mg PO QAM COUNT INCLUDES [facility] Last Admin: 02/07/19 07:55 Dose: 40 mg Prednisone (Deltasone Tab*) 60 mg PO DAILY COUNT [facility]CLUDES [facility] Last Admin: 02/07/19 07:54 Dose: 60 mg Senna (Senokot 8.6 Mg Tab*) 2 tab PO BID PRN PRN Reason: CONSTIPATION Sertraline HCl (Zoloft*) 100 mg PO QAM COUNT INCLUDES [facility] Last Admin: 02/07/19 07:55 Dose: 100 mg Tiotropium [place] (Spiriva Respimat 2.5 Mcg) 2 puff INH DAILY COUNT [facility]CLUDES [facility] Last Admin: 02/07/19 09:20 Dose: 2 puff Zolpidem Tartrate (Ambien Tab*) 5 mg PO BEDTIME PRN PRN Reason: SLEEP Vital Signs - 8 hr 02/07/19 02/07/19 02/07/19 09:00 10:28 11:15 Temperature 97.1 F 96.7 F Pulse Rate 106 107 105 Respiratory 22 22 24 Rate Blood Pressure 133/77 97/58 104/69 (mmHg) O2 Sat by Pulse 93 93 96 Oximetry 02/07/19 15:30 Temperature 96.8 F Pulse Rate 108 Respiratory 20 Rate Blood Pressure 134/88 (mmHg) O2 Sat by Pulse 97 Oximetry Oxygen Devices in Use Now: Nasal Cannula Appearance: alert, NAD Eyes: No Scleral Icterus Ears/Nose/Mouth/Throat: - - poor dentition Neck: NL Appearance and Movements; NL JVP Respiratory: - - tachypnea, diminished BS throughout, mild wheeze Cardiovascular: NL Sounds; No Murmurs; No JVD - tachy, low 100s Extremities: No Clubbing, Cyanosis, - - left AKA Neurological: Alert and Oriented x 3 Nutrition: Taking PO's Result Diagrams: 02/07/19 06:29 02/07/19 06:29 Microbiology and Other Data: Microbiology 02/06/19 09:21 Aerobic Blood Culture - Preliminary Blood Venous No Growth Day 1 Anaerobic Blood Culture - Preliminary No Growth Day 1 02/06/19 09:12 Aerobic Blood Culture - Preliminary Blood Venous No Growth Day 1 Anaerobic Blood Culture - Preliminary No Growth Day 1 02/06/19 14:45 Nasal Screen MRSA (PCR) - Final Nasal Mrsa Not Detected Assess/Plan/Problems-Billing Assessment: This is an 83 year old male with complex medical history that presents to the ED with complaints of SOB. - Patient Problems (1) Acute and chronic respiratory failure with hypoxia Code(s): J96.21 - ACUTE AND CHRONIC RESPIRATORY FAILURE WITH HYPOXIA SNOMED Code(s): 21614821 Comment: - On 3L at home, requiring 4-5L now - Combination of CHF/fluid overload, severe aortic stenosis(?) and COPD exac - CXR with pleural effusion, no PNA, does appear to be interstitial edema - Wean O2 as tolerated - Pulmonary toilet - Gentle diuresis (2) COPD exacerbation Code(s): J44.1 - CHRONIC OBSTRUCTIVE PULMONARY DISEASE W (ACUTE) EXACERBATION SNOMED Code(s): 200582879 Comment: - Pulmonary toilet, nebs and doxycyline - Afebrile - Continue oral prednisone (3) Severe aortic stenosis Code(s): I35.0 - NONRHEUMATIC AORTIC (VALVE) STENOSIS SNOMED Code(s): 83674350 Comment: - Reviewed record from 2017 when patient has documented 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 - No nitrates, does appear to be fluid overloaded at this time - One dose lasix now - EF is preserved at 55-60% per ECHO from last month - Continue medical management (4) TAMICA treated with BiPAP Code(s): G47.33 - OBSTRUCTIVE SLEEP APNEA (ADULT) (PEDIATRIC) SNOMED Code(s): 00709100 Comment: - Continue bipap 16/12 with naps and overnight (5) Afib Code(s): I48.91 - UNSPECIFIED ATRIAL FIBRILLATION SNOMED Code(s): 71873612 Comment: - Rate controlled with metoprolol 25mg BID - Continu eliquis 2.5BID (6) CAD (coronary artery disease) Code(s): I25.10 - ATHSCL HEART DISEASE OF [place] CORONARY ARTERY W/O ANG PCTRS SNOMED Code(s): 86929478 Comment: - Continue ASA, BB and statin (7) Cellulitis of fifth toe of left foot Code(s): L03.032 - CELLULITIS OF LEFT TOE SNOMED Code(s): 71649461 Comment: - s/p amputation on 01/06 - Continue keflex - Will consult ortho to eval wound tomorrow (8) Hypertension Code(s): I10 - ESSENTIAL (PRIMARY) HYPERTENSION SNOMED Code(s): 56441193 Comment: - Stable on lisinopril and metoprolol (9) DVT prophylaxis Code(s): OJS2290 - SNOMED Code(s): 049101796 Comment: - On eliquis (10) DNR (do not resuscitate) Comment: - Patient is listed as DNR from last admission, need to confirm wishes Status and Disposition: Inpatient, SW consulted, may benefit from PATH.
[2019-02-08] MEDS: DOXYcycline IV* 100 MG in NS 0.9% 250 ML* 250 ML IVPB SCH ×2 (03:04→15:18)
[2019-02-08] MEDS: Mometasone/Formoter 200/5 MDI INH SCH ×2 (07:51→20:36)
[2019-02-08] MEDS: SPIRIVA Respimat* (tiotropium) 2.5 mcg/inh Inhaler INH SCH (07:51)
[2019-02-08] MEDS: Insulin LISPRO* 1 UNITS UNIT SUBCUT SCH ×4 (08:18→21:31)
[2019-02-08] MEDS: Atorvastatin* 40 MG TAB PO SCH (08:47)
[2019-02-08] MEDS: Aspirin EC TAB* 81 MG TAB.EC PO SCH (08:47)
[2019-02-08] MEDS: guaiFENesin ER TAB 600 MG PO SCH ×2 (08:47→21:32)
[2019-02-08] MEDS: Pantoprazole TAB * 40 MG TAB PO SCH (08:47)
[2019-02-08] MEDS: Apixaban* 2.5 MG TAB PO SCH ×2 (08:47→21:32)
[2019-02-08] MEDS: predniSONE TAB* 20 MG PO SCH (08:47)
[2019-02-08] MEDS: Metoprolol Tartrate TAB* 25 MG PO SCH ×2 (08:47→21:32)
[2019-02-08] MEDS: Sertraline* 100 MG TAB PO SCH (08:47)
[2019-02-08] MEDS: Finasteride TAB* 5 MG PO SCH (08:48)
[2019-02-08] MEDS: Insulin GLARGINE(*) 1 UNITS UNIT SUBCUT SCH ×2 (08:48→21:31)
[2019-02-08] MEDS: Cholecalciferol TAB* 1000 UNITS PO SCH (08:48)
[2019-02-08] MEDS: Cephalexin CAP* 500 MG PO SCH ×2 (08:48→21:32)
[2019-02-08] MEDS: hydrOXYzine HCL TAB* 10 MG PO PRN (10:09)
--- NOTE | 2019-02-08 15:49 | PN ---
Progress Note - Progress Note Date of Service: 02/08/19 Note: Pt seen at bedside for removal of sutures. 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 He feels well without fever or chills. Denies L foot pain. Sutures removed, Incision healing well. Distally there is scabbing along the incision line with a single droplet of purulence, not able to express any further discharge. No erythema and nontender. Steri strip placed, distal aspect dressed with betadine, 2x2, kerlix. Will continue abx and betadine wet to dry dressings of distal incision.
--- NOTE | 2019-02-08 17:43 | PN ---
Subjective Date of Service: 02/08/19 Interval History: Patient seen and examined. States his breathing still feels "bad", but oxygen sats are improved and he is not wheezing. Denies chest pain, no fevers or chills. No further complaints other than fatigue. Objective Active Medications: Acetaminophen (Tylenol Tab*) 650 mg PO Q6H PRN PRN Reason: MILD PAIN or TEMP > 100.4 Albuterol (Ventolin 2.5 Mg/3 Ml Neb.Kika*) 2.5 mg INH Q2H PRN PRN Reason: SOB/WHEEZING Last Admin: 02/08/19 08:46 Dose: 2.5 mg Apixaban (Eliquis*) 2.5 mg PO BID [facility] Last Admin: 02/08/19 08:47 Dose: 2.5 mg Aspirin (Aspirin Ec Tab*) 81 mg PO QAM [facility] Last Admin: 02/08/19 08:47 Dose: 81 mg Atorvastatin Calcium (Lipitor*) 40 mg PO DAILY [facility] Last Admin: 02/08/19 08:47 Dose: 40 mg Benzonatate (Tessalon Cap*) 100 mg PO BID PRN PRN Reason: COUGH Cephalexin HCl (Keflex Cap*) 500 mg PO BID [facility] Last Admin: 02/08/19 08:48 Dose: 500 mg Cholecalciferol (Vitamin D Tab*) 1,000 units PO DAILY [facility] Last Admin: 02/08/19 08:48 Dose: 1,000 units Dextrose (Dextrose 50% Vial 50 Ml*) 25 ml IV PUSH .FOR FS < 60 - SS PRN PRN Reason: FS < 60 Finasteride (Proscar Tab*) 5 mg PO DAILY [facility] Last Admin: 02/08/19 08:48 Dose: 5 mg Guaifenesin (Mucinex*) 1,200 mg PO BID [facility] Last Admin: 02/08/19 08:47 Dose: 1,200 mg Hydroxyzine HCl (Atarax Tab*) 10 mg PO TID PRN PRN Reason: ANXIETY Last Admin: 02/08/19 10:09 Dose: 10 mg Doxycycline Hyclate 100 mg/ (Sodium Chloride) 250 mls @ 250 mls/hr IVPB Q12H [facility] Last Admin: 02/08/19 15:18 Dose: 250 mls/hr Insulin Glargine (Lantus(*)) 20 units SUBCUT BID [facility] Last Admin: 02/08/19 08:48 Dose: 20 units Insulin Human Lispro (Humalog*) 0 units SUBCUT ACHS [facility]; Protocol Last Admin: 02/08/19 17:29 Dose: 3 units Metoprolol Tartrate (Lopressor Tab*) 25 mg PO BID [facility] Last Admin: 02/08/19 08:47 Dose: 25 mg Mometasone Furoate/Formoterol Fumar (Dulera 200/5 Mdi*) 2 puff INH BID [facility] Last Admin: 02/08/19 07:51 Dose: 2 dose Ondansetron HCl (Zofran Inj*) 4 mg IV Q6H PRN PRN Reason: NAUSEA Oxycodone HCl (Roxycodone Tab*) 5 mg PO QID PRN PRN Reason: PAIN - MODERATE Pantoprazole Sodium (Protonix Tab*) 40 mg PO QAM [facility] Last Admin: 02/08/19 08:47 Dose: 40 mg Prednisone (Deltasone Tab*) 60 mg PO DAILY [facility] Last Admin: 02/08/19 08:47 Dose: 60 mg Senna (Senokot 8.6 Mg Tab*) 2 tab PO BID PRN PRN Reason: CONSTIPATION Sertraline HCl (Zoloft*) 100 mg PO QAM [facility] Last Admin: 02/08/19 08:47 Dose: 100 mg Tiotropium [place] (Spiriva Respimat 2.5 Mcg) 2 puff INH DAILY [facility] Last Admin: 02/08/19 07:51 Dose: 2 puff Zolpidem Tartrate (Ambien Tab*) 5 mg PO BEDTIME PRN PRN Reason: SLEEP Vital Signs - 8 hr 02/08/19 02/08/19 10:09 15:19 Respiratory 23 21 Rate Oxygen Devices in Use Now: Nasal Cannula Appearance: alert, NAD Eyes: PERRLA Ears/Nose/Mouth/Throat: NL Teeth, Lips, Gums, Mucous Membranes Moist Neck: NL Appearance and Movements; NL JVP Respiratory: Symmetrical Chest Expansion and Respiratory Effort, - - diminshed throughout lung connors, no wheeze, good air entry Extremities: No Edema, No Clubbing, Cyanosis Skin: - - dressing to left foot amp site CDI Neurological: Alert and Oriented x 3 Nutrition: Taking PO's Result Diagrams: 02/07/19 06:29 02/07/19 06:29 Microbiology and Other Data: Microbiology 02/06/19 09:21 Aerobic Blood Culture - Preliminary Blood Venous No Growth Day 1 Anaerobic Blood Culture - Preliminary No Growth Day 1 02/06/19 09:12 Aerobic Blood Culture - Preliminary Blood Venous No Growth Day 1 Anaerobic Blood Culture - Preliminary No Growth Day 1 02/06/19 14:45 Nasal Screen MRSA (PCR) - Final Nasal Mrsa Not Detected Assess/Plan/Problems-Billing Assessment: This is an 83 year old male with complex medical history that presents to the ED with complaints of SOB. - Patient Problems (1) Acute and chronic respiratory failure with hypoxia Code(s): J96.21 - ACUTE AND CHRONIC RESPIRATORY FAILURE WITH HYPOXIA SNOMED Code(s): 69229923 Comment: - On 3L at home, requiring 4-5L now - Combination of CHF/fluid overload, severe aortic stenosis(?) and COPD exac - CXR with pleural effusion, no PNA, does appear to be interstitial edema - Wean O2 as tolerated - Pulmonary toilet - Gentle diuresis - Bipap when napping (2) COPD exacerbation Code(s): J44.1 - CHRONIC OBSTRUCTIVE PULMONARY DISEASE W (ACUTE) EXACERBATION SNOMED Code(s): 905758799 Comment: - Pulmonary toilet, nebs and doxycyline, change to PO doxy today - Afebrile - Continue oral prednisone (3) Severe aortic stenosis Code(s): I35.0 - NONRHEUMATIC AORTIC (VALVE) STENOSIS SNOMED Code(s): 08149189 Comment: - Reviewed record from 2017 when patient has documented 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 (4) TAMICA treated with BiPAP Code(s): G47.33 - OBSTRUCTIVE SLEEP APNEA (ADULT) (PEDIATRIC) SNOMED Code(s): 88685688 Comment: - Continue bipap 07/03 with naps and overnight (5) Afib Code(s): I48.91 - UNSPECIFIED ATRIAL FIBRILLATION SNOMED Code(s): 32731141 Comment: - Rate controlled with metoprolol 25mg BID - Continue eliquis 2.5BID (6) CAD (coronary artery disease) Code(s): I25.10 - ATHSCL HEART DISEASE OF [place] CORONARY ARTERY W/O ANG PCTRS SNOMED Code(s): 30558513 Comment: - Continue ASA, BB and statin (7) Cellulitis of fifth toe of left foot Code(s): L03.032 - CELLULITIS OF LEFT TOE SNOMED Code(s): 10422980 Comment: - s/p amputation on 01/06 - Continue keflex - Will consult ortho to eval wound tomorrow (8) Hypertension Code(s): I10 - ESSENTIAL (PRIMARY) HYPERTENSION SNOMED Code(s): 76111952 Comment: - Stable on lisinopril and metoprolol (9) DVT prophylaxis Code(s): [id number] - SNOMED Code(s): 789329370 Comment: - On eliquis (10) DNR (do not resuscitate) Comment: - Patient is listed as DNR from last admission, need to confirm wishes Status and Disposition: Inpatient, SW consulted, may benefit from PATH. EUGENIA working on discharge plan. However, I am concerned that some of his respiratory distress may be his severe which from the last admission, he has decided not to intervene on. Will continue to manage medically.
[2019-02-08] MEDS: Furosemide TAB* 40 MG PO SCH (18:25)
[2019-02-09 06:04] LABS: Hematocrit 36 % (42-52); Hemoglobin 11.3 g/dL (14.0-18.0); Mean Corpuscular HGB Conc 32 g/dL (31-36); Mean Corpuscular Hemoglobin 27 pg (27-31); Mean Corpuscular Volume 85 fL (80-94); Mean Platelet Volume 8.5 fL (7.4-10.4); Platelet Count 256 10^3/uL (150-450); Red Blood Count 4.18 10^6 /uL (4.18-5.48); Red Cell Distribution Width 18 % (10-15)
[2019-02-09 06:42] LABS: BUN/Creatinine Ratio 32.7 (8-20); Calcium 8.9 mg/dL (8.6-10.3); EGFR African American 49.7 (>60); EGFR Non-African American 41.1 (>60); Potassium 4.1 mmol/L (3.5-5.0)
[2019-02-09] MEDS: Mometasone/Formoter 200/5 MDI INH SCH (08:00)
[2019-02-09] MEDS: SPIRIVA Respimat* (tiotropium) 2.5 mcg/inh Inhaler INH SCH (08:01)
[2019-02-09] MEDS ORDERED: Insulin GLARGINE(*) 1 UNITS UNIT SUBCUT SCH (09:00)
[2019-02-09] MEDS: Insulin LISPRO* 1 UNITS UNIT SUBCUT SCH ×4 (09:39→22:00)
--- NOTE | 2019-02-09 10:49 | PN ---
Subjective Date of Service: 02/09/19 Interval History: Alerted to bedside this AM by nursing staff. Patient had already completed breakfast and was still wearing BiPAP mask when he was selecting menu options with aide. Per aide, patient suddenly slumped over and was not responding for several seconds. Then he suddenly became alert and was oriented x 3. At time of my evaluation, patient is alert and answering questions appropriately. Requests to continue wearing BiPAP because he plans on napping, as he is feeling tired. Tells me that moments before selecting the menu options with aide, he had sudden epigastric pain and nausea, which have since resolved. Denies chest pain, difficulty breathing, abd pain, nausea, vomiting today at time of eval. States he "spit up" overnight but no vomitus. Denies fever/chills. Objective Active Medications: Acetaminophen (Tylenol Tab*) 650 mg PO Q6H PRN PRN Reason: MILD PAIN or TEMP > 100.4 Albuterol (Ventolin 2.5 Mg/3 Ml Neb.Kika*) 2.5 mg INH Q2H PRN PRN Reason: SOB/WHEEZING Last Admin: 02/08/19 08:46 Dose: 2.5 mg Apixaban (Eliquis*) 2.5 mg PO BID [facility] Last Admin: 02/08/19 21:32 Dose: 2.5 mg Aspirin (Aspirin Ec Tab*) 81 mg PO QAM [facility] Last Admin: 02/08/19 08:47 Dose: 81 mg Atorvastatin Calcium (Lipitor*) 40 mg PO DAILY [facility] Last Admin: 02/08/19 08:47 Dose: 40 mg Benzonatate (Tessalon Cap*) 100 mg PO BID PRN PRN Reason: COUGH Cephalexin HCl (Keflex Cap*) 500 mg PO BID [facility] Last Admin: 02/08/19 21:32 Dose: 500 mg Cholecalciferol (Vitamin D Tab*) 1,000 units PO DAILY [facility] Last Admin: 02/08/19 08:48 Dose: 1,000 units Dextrose (Dextrose 50% Vial 50 Ml*) 25 ml IV PUSH .FOR FS < 60 - SS PRN PRN Reason: FS < 60 Doxycycline Hyclate (Vibramycin Cap(*)) 100 mg PO BID [facility] Finasteride (Proscar Tab*) 5 mg PO DAILY [facility] Last Admin: 02/08/19 08:48 Dose: 5 mg Furosemide (Lasix Tab*) 40 mg PO DAILY [facility] Last Admin: 02/08/19 18:25 Dose: 40 mg Guaifenesin (Mucinex*) 1,200 mg PO BID [facility] Last Admin: 02/08/19 21:32 Dose: 1,200 mg Hydroxyzine HCl (Atarax Tab*) 10 mg PO TID PRN PRN Reason: ANXIETY Last Admin: 02/08/19 10:09 Dose: 10 mg Insulin Glargine (Lantus(*)) [facility] Insulin Human Lispro (Humalog*) 0 units SUBCUT [facility]; Protocol Last Admin: 02/09/19 09:39 Dose: Not Given Metoprolol Tartrate (Lopressor Tab*) 25 mg PO BID [facility] Last Admin: 02/08/19 21:32 Dose: 25 mg Mometasone Furoate/Formoterol Fumar (Dulera 200/5 Mdi*) 2 puff INH BID [facility] Last Admin: 02/09/19 08:00 Dose: 2 puff Ondansetron HCl (Zofran Inj*) 4 mg IV Q6H PRN PRN Reason: NAUSEA Oxycodone HCl (Roxycodone Tab*) 5 mg PO QID PRN PRN Reason: PAIN - MODERATE Pantoprazole Sodium (Protonix Tab*) 40 mg PO QAM [facility] Last Admin: 02/08/19 08:47 Dose: 40 mg Prednisone (Deltasone Tab*) 60 mg PO DAILY [facility] Last Admin: 02/08/19 08:47 Dose: 60 mg Senna (Senokot 8.6 Mg Tab*) 2 tab PO BID PRN PRN Reason: CONSTIPATION Sertraline HCl (Zoloft*) 100 mg PO QAM [facility] Last Admin: 02/08/19 08:47 Dose: 100 mg Tiotropium [place] (Spiriva Respimat 2.5 Mcg) 2 puff INH DAILY [facility] Last Admin: 02/09/19 08:01 Dose: 2 puff Vital Signs - 8 hr 02/09/19 02/09/19 04:14 08:02 Temperature 97.8 F Pulse Rate 101 101 Respiratory 19 19 Rate Blood Pressure 106/69 (mmHg) O2 Sat by Pulse 94 94 Oximetry Oxygen Devices in Use Now: BiPAP Appearance: Elderly, obese, white male, laying upright in hospital bed, appearing comfortable and in NAD Eyes: No Scleral Icterus, - - PERRL Ears/Nose/Mouth/Throat: Mucous Membranes Moist Neck: Trachea Midline Respiratory: Symmetrical Chest Expansion and Respiratory Effort, - - diminished breath sounds throughout but CTA overall Cardiovascular: RRR, - - systolic murmur Abdominal: - - abd soft, nontender, nondistended; no epigastric tenderness Extremities: No Edema, No Clubbing, Cyanosis, - - no calf tenderness Skin: No Rash or Ulcers Neurological: Alert and Oriented x 3, NL Muscle Strength and Tone Result Diagrams: 02/09/19 05:41 02/09/19 05:41 Microbiology and Other Data: Microbiology 02/06/19 09:21 Aerobic Blood Culture - Preliminary Blood Venous No Growth Day 1 Anaerobic Blood Culture - Preliminary No Growth Day 1 02/06/19 09:12 Aerobic Blood Culture - Preliminary Blood Venous No Growth Day 1 Anaerobic Blood Culture - Preliminary No Growth Day 1 02/06/19 14:45 Nasal Screen MRSA (PCR) - Final Nasal Mrsa Not Detected Assess/Plan/Problems-Billing Assessment: This is an 83 year old male with complex medical history that presents to the ED with complaints of SOB. - Patient Problems (1) Acute and chronic respiratory failure with hypoxia Current Visit: No Status: Acute Code(s): J96.21 - ACUTE AND CHRONIC RESPIRATORY FAILURE WITH HYPOXIA SNOMED Code(s): 08650424 Comment: - On 3L at home, requiring 4-5L now - Combination of CHF/fluid overload, severe aortic stenosis and COPD exac - CXR with pleural effusion, no PNA, does appear to be interstitial edema - Wean O2 as tolerated - Pulmonary toilet - Gentle diuresis - Bipap when napping and overnight. Is frequently requesting during the day due to dyspnea despite good oxygen saturation - Ordered ativan and palliative consult (2) COPD exacerbation Current Visit: No Status: Acute Priority: High Onset Date: 10/05/13 Code (s): J44.1 - CHRONIC OBSTRUCTIVE PULMONARY DISEASE W (ACUTE) EXACERBATION SNOMED Code(s): 133175022 Comment: - Pulmonary toilet, nebs and doxycyline - Afebrile - Continue oral prednisone (3) TAMICA treated with BiPAP Current Visit: Yes Status: Acute Code(s): G47.33 - OBSTRUCTIVE SLEEP APNEA ( ADULT) (PEDIATRIC) SNOMED Code(s): 50446377 Comment: - Continue bipap 07/03 with naps and overnight (4) Afib Current Visit: No Status: Acute Priority: High Code(s): I48.91 - UNSPECIFIED ATRIAL FIBRILLATION SNOMED Code(s): 82184706 Comment: - Rate controlled with metoprolol 25mg BID - Continue eliquis 2.5mg BID (5) CAD (coronary artery disease) Current Visit: No Status: Acute Priority: High Code(s): I25.10 - ATHSCL HEART DISEASE OF [place] CORONARY ARTERY W/O ANG PCTRS SNOMED Code(s): 58129818 Comment: - Continue ASA, BB and statin (6) Cellulitis of fifth toe of left foot Current Visit: No Status: Acute Code(s): L03.032 - CELLULITIS OF LEFT TOE SNOMED Code(s): 53475472 Comment: - s/p amputation on 01/06 - Continue doxy for 2 more weeks - Orthopedics removed opal 02/08; will need follow up with ortho outpatient at discharge (7) Hypertension Current Visit: No Status: Acute Priority: High Code(s): I10 - ESSENTIAL ( PRIMARY) HYPERTENSION SNOMED Code(s): 06023001 Comment: - Stable on lisinopril and metoprolol (8) Severe aortic stenosis Current Visit: No Status: Acute Code(s): I35.0 - NONRHEUMATIC AORTIC (VALVE ) STENOSIS SNOMED Code(s): 08475635 Comment: - Reviewed record from 2016 when patient has documented 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 CM working on discharge plan.
[2019-02-09] MEDS: Cephalexin CAP* 500 MG PO SCH ×2 (11:02→22:01)
[2019-02-09] MEDS: Atorvastatin* 40 MG TAB PO SCH (11:03)
[2019-02-09] MEDS: Sertraline* 100 MG TAB PO SCH (11:03)
[2019-02-09] MEDS: Aspirin EC TAB* 81 MG TAB.EC PO SCH (11:03)
[2019-02-09] MEDS: Apixaban* 2.5 MG TAB PO SCH ×2 (11:03→22:01)
[2019-02-09] MEDS: guaiFENesin ER TAB 600 MG PO SCH ×2 (11:03→22:01)
[2019-02-09] MEDS: Cholecalciferol TAB* 1000 UNITS PO SCH (11:03)
[2019-02-09] MEDS: Finasteride TAB* 5 MG PO SCH (11:03)
[2019-02-09] MEDS: predniSONE TAB* 20 MG PO SCH (11:03)
[2019-02-09] MEDS: Furosemide TAB* 40 MG PO SCH (11:03)
[2019-02-09] MEDS: DOXYcycline CAP(*) 100 MG PO SCH ×2 (11:03→22:01)
[2019-02-09] MEDS: Pantoprazole TAB * 40 MG TAB PO SCH (11:04)
[2019-02-09] MEDS: Acetaminophen TAB* 325 MG PO PRN ×2 (11:04→22:18)
[2019-02-09] MEDS: Metoprolol Tartrate TAB* 25 MG PO SCH ×2 (11:12→22:02)
[2019-02-09] MEDS: hydrOXYzine HCL TAB* 10 MG PO PRN (11:46)
--- NOTE | 2019-02-09 15:49 | PN ---
Progress Note - Progress Note Date of Service: 02/09/19 SOAP: Subjective: []Pt seen at bedside. He has no left foot pain. Denies fever/chills Objective: []Gen: NAD, appears well LLE: Incision CDI no tenderness, erythema or warmth. No discharge from incision. Assessment: []SP partial 5th ray amp 01/06 Plan: []Continue abx and fu ortho next week for wound check daily betadine wet to dry dressing to distal aspect of incision Report any drainage, erythema, pain to ortho Elevated WBC today, monitor Vital Signs Temp 97.8 F 02/09/19 04:14 Pulse 101 02/09/19 08:02 Resp 21 02/09/19 11:46 BP 106/69 02/09/19 04:14 Pulse Ox 94 02/09/19 08:02 Intake & Output 02/08/19 02/09/19 02/09/19 18:59 06:59 18:59 Intake Total 695 960 730 Balance 695 960 730 Weight 190 lb 8 oz Intake: Oral 695 960 730 Other: Estimated Void Small Large # Bowel Movements 1 Estimated Stool Amount Medium # Voids 1 5 Laboratory Last Values WBC 17.0 10^3/uL (3.5-10.8) H 02/09/19 05:41 RBC 4.18 10^6 /uL (4.18-5.48) 02/09/19 05:41 Hgb 11.3 g/dL (14.0-18.0) L 02/09/19 05:41 Hct 36 % (42-52) L 02/09/19 05:41 MCV 85 fL (80-94) 02/09/19 05:41 MCH 27 pg (27-31) 02/09/19 05:41 MCHC 32 g/dL (31-36) 02/09/19 05:41 RDW 18 % (10-15) H 02/09/19 05:41 Plt Count 256 10^3/uL (150-450) 02/09/19 05:41 MPV 8.5 fL (7.4-10.4) 02/09/19 05:41 Neut % (Auto) 83.0 % 02/07/19 06:29 Lymph % (Auto) 7.9 % 02/07/19 06:29 [place] % (Auto) 8.8 % 02/07/19 06:29 Eos % (Auto) 0.1 % 02/07/19 06:29 Baso % (Auto) 0.2 % 02/07/19 06:29 Absolute Neuts (auto) 10.6 10^3/ul (1.5-7.7) H 02/07/19 06:29 Absolute Lymphs (auto) 1.0 10^3/ul (1.0-4.8) 02/07/19 06:29 Absolute Monos (auto) 1.1 10^3/ul (0-0.8) H 02/07/19 06:29 Absolute Eos (auto) 0.0 10^3/ul (0-0.6) 02/07/19 06:29 Absolute Basos (auto) 0.0 10^3/ul (0-0.2) 02/07/19 06:29 Absolute Nucleated RBC 0.0 10^3/ul 02/07/19 06:29 Nucleated RBC % 0.1 02/07/19 06:29 Patient Temperature Not Reportable 02/06/19 09:15 ABG pH 7.44 (7.35-7.45) 02/06/19 09:15 ABG pH (Temp Correct) Not Reportable 02/06/19 09:15 ABG pCO2 37 mmHg (35-45) 02/06/19 09:15 ABG pCO2 (Temp Corrct Not Reportable 02/06/19 09:15 ABG pO2 158 mmHg (80-100) H 02/06/19 09:15 ABG pO2 (Temp Correct Not Reportable 02/06/19 09:15 ABG HCO3 25.8 mmol/L (19-31) 02/06/19 09:15 ABG O2 Saturation 98.1 % (94.0-98.0) H 02/06/19 09:15 ABG Base Excess 1.1 mmol/L (-2.0-2.0) 02/06/19 09:15 Respiration Rate Not Reportable 02/06/19 09:15 O2 Delivery Device oxymask 02/06/19 09:15 Ventilator Type Not Reportable 02/06/19 09:15 Vent Mode Not Reportable 02/06/19 09:15 FiO2 15 02/06/19 09:15 Inspiratory Time Not Reportable 02/06/19 09:15 PEEP Not Reportable 02/06/19 09:15 Pressure Support Not Reportable 02/06/19 09:15 Pressure Control Not Reportable 02/06/19 09:15 EPAP Not Reportable 02/06/19 09:15 IPAP Not Reportable 02/06/19 09:15 BiPAP Not Reportable 02/06/19 09:15 Sodium 141 mmol/L (135-145) 02/09/19 05:41 Potassium 4.1 mmol/L (3.5-5.0) 02/09/19 05:41 Chloride 110 mmol/L (101-111) 02/09/19 05:41 Carbon Dioxide 22 mmol/L (22-32) 02/09/19 05:41 Anion Gap 9 mmol/L (2-11) 02/09/19 05:41 BUN 53 mg/dL (6-24) H 02/09/19 05:41 Creatinine 1.62 mg/dL (0.67-1.17) H 02/09/19 05:41 Est GFR ( Amer) 49.7 (>60) 02/09/19 05:41 Est GFR (Non-Af Amer) 41.1 (>60) 02/09/19 05:41 BUN/Creatinine Ratio 32.7 (8-20) H 02/09/19 05:41 Glucose 47 mg/dL (70-100) L* 02/09/19 05:41 POC Glucose (mg/dL) 236 mg/dL (70-100) H 02/09/19 11:50 Lactic Acid 1.7 mmol/L (0.5-2.0) 02/06/19 09:12 Calcium 8.9 mg/dL (8.6-10.3) 02/09/19 05:41 Magnesium 1.8 mg/dL (1.9-2.7) L 02/07/19 06:29 Total Bilirubin 0.90 mg/dL (0.2-1.0) 02/06/19 09:12 AST 21 U/L (13-39) 02/06/19 09:12 ALT 17 U/L (7-52) 02/06/19 09:12 Alkaline Phosphatase 133 U/L (34-104) H 02/06/19 09:12 Troponin I 0.04 ng/mL (<0.04) H* 02/06/19 09:12 C-Reactive Protein 21.63 mg/L (<8.01) H 02/06/19 09:12 B-Natriuretic Peptide 742 pg/mL (<=100) H 02/06/19 09:12 Total Protein 6.5 g/dL (6.4-8.9) 02/06/19 09:12 Albumin 3.5 g/dL (3.2-5.2) 02/06/19 09:12 Globulin 3.0 g/dL (2-4) 02/06/19 09:12 Albumin/Globulin Ratio 1.2 (1-3) 02/06/19 09:12
[2019-02-10] MEDS: Mometasone/Formoter 200/5 MDI INH SCH ×3 (07:19→21:23)
[2019-02-10] MEDS ORDERED: Insulin GLARGINE(*) 1 UNITS UNIT SUBCUT SCH (09:00)
[2019-02-10] MEDS: SPIRIVA Respimat* (tiotropium) 2.5 mcg/inh Inhaler INH SCH (09:02)
[2019-02-10 09:10] LABS: ABS Basophils 0.1 10^3/ul (0-0.2); ABS Lymphocytes 1.1 10^3/ul (1.0-4.8); ABS Monocytes 1.1 10^3/ul (0-0.8); Hematocrit 37 % (42-52); Hemoglobin 11.7 g/dL (14.0-18.0); Lymphocyte % 8.8 %; Mean Corpuscular HGB Conc 32 g/dL (31-36); Mean Corpuscular Hemoglobin 27 pg (27-31); Mean Corpuscular Volume 84 fL (80-94); Mean Platelet Volume 8.5 fL (7.4-10.4); Platelet Count 202 10^3/uL (150-450); Red Blood Count 4.37 10^6 /uL (4.18-5.48); Red Cell Distribution Width 18 % (10-15); White Blood Count 12.2 10^3/uL (3.5-10.8)
[2019-02-10] MEDS: Insulin LISPRO* 1 UNITS UNIT SUBCUT SCH ×4 (09:20→22:23)
[2019-02-10] MEDS: Acetaminophen TAB* 325 MG PO PRN (09:39)
[2019-02-10] MEDS: predniSONE TAB* 20 MG PO SCH (09:40)
[2019-02-10] MEDS: Metoprolol Tartrate TAB* 25 MG PO SCH ×2 (09:40→21:29)
[2019-02-10] MEDS: DOXYcycline CAP(*) 100 MG PO SCH ×2 (09:40→21:29)
[2019-02-10] MEDS: Cephalexin CAP* 500 MG PO SCH ×2 (09:40→21:29)
[2019-02-10] MEDS: Furosemide TAB* 40 MG PO SCH (09:40)
[2019-02-10] MEDS: Atorvastatin* 40 MG TAB PO SCH (09:40)
[2019-02-10] MEDS: Sertraline* 100 MG TAB PO SCH (09:40)
[2019-02-10] MEDS: Aspirin EC TAB* 81 MG TAB.EC PO SCH (09:40)
[2019-02-10] MEDS: Finasteride TAB* 5 MG PO SCH (09:40)
[2019-02-10] MEDS: guaiFENesin ER TAB 600 MG PO SCH ×2 (09:40→21:29)
[2019-02-10] MEDS: Cholecalciferol TAB* 1000 UNITS PO SCH (09:41)
[2019-02-10] MEDS: Pantoprazole TAB * 40 MG TAB PO SCH (09:41)
[2019-02-10] MEDS: Apixaban* 2.5 MG TAB PO SCH ×2 (09:41→21:29)
[2019-02-10] MEDS: LORazepam TAB(*) 0.5 MG PO PRN (14:35)
--- NOTE | 2019-02-10 17:20 | CONSULT ---
Palliative / Hospice Consult Ordering Provider: Ivis Liang - PCP-Bindu Referal Reason: goals of care/senna/oxycodone - Subjective Code Status: DNR Advance Directives Location: No Advance Directives MOLST Part A Completed: Yes - completed on chart MOLST Part E Completed:: Yes - completed on chart - History or Present Illness History or Present Illness: 83yo male with COPD and severe presents to ER with SOB for 3 days. 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 Studies CXR pleural effusion, density R hemidiaphragm, EKG aflutter, EKG #2 sinus tach, ECHO EF 55-60% done 12/2018, H/H 11.3/36, BUN/Cr 53 /1.62 egfr 41.1, CRP 21.63, BNP 742, alb 3.5 and BC neg. Pt admitted with COPD exacerbation, acute on chronic respiratory failure and severe initially sent to the ICU now on the floor. Pt has had 7 ER visits and 4 hospitalizations in past year. All history is from the pt and medical record. Lab Values: Abnormal Lab Results 02/09/19 02/09/19 02/10/19 21:34 22:10 07:26 WBC RBC Hgb Hct MCV MCH MCHC RDW Plt Count MPV Neut % (Auto) Lymph % (Auto) [place] % (Auto) Eos % (Auto) Baso % (Auto) Absolute Neuts (auto) Absolute Lymphs (auto) Absolute Monos (auto) Absolute Eos (auto) Absolute Basos (auto) Absolute Nucleated RBC Nucleated RBC % POC Glucose (mg/dL) 79 98 249 H 02/10/19 02/10/19 08:48 11:20 WBC 12.2 H RBC 4.37 Hgb 11.7 L Hct 37 L MCV 84 MCH 27 MCHC 32 RDW 18 H Plt Count 202 MPV 8.5 Neut % (Auto) 81.9 Lymph % (Auto) 8.8 [place] % (Auto) 8.8 Eos % (Auto) 0.0 Baso % (Auto) 0.5 Absolute Neuts (auto) 10.0 H Absolute Lymphs (auto) 1.1 Absolute Monos (auto) 1.1 H Absolute Eos (auto) 0.0 Absolute Basos (auto) 0.1 Absolute Nucleated RBC 0.0 Nucleated RBC % 0.0 POC Glucose (mg/dL) 198 H Laboratory Last Values WBC 12.2 10^3/uL (3.5-10.8) H 02/10/19 08:48 RBC 4.37 10^6 /uL (4.18-5.48) 02/10/19 08:48 Hgb 11.7 g/dL (14.0-18.0) L 02/10/19 08:48 Hct 37 % (42-52) L 02/10/19 08:48 MCV 84 fL (80-94) 02/10/19 08:48 MCH 27 pg (27-31) 02/10/19 08:48 MCHC 32 g/dL (31-36) 02/10/19 08:48 RDW 18 % (10-15) H 02/10/19 08:48 Plt Count 202 10^3/uL (150-450) 02/10/19 08:48 MPV 8.5 fL (7.4-10.4) 02/10/19 08:48 Neut % (Auto) 81.9 % 02/10/19 08:48 Lymph % (Auto) 8.8 % 02/10/19 08:48 [place] % (Auto) 8.8 % 02/10/19 08:48 Eos % (Auto) 0.0 % 02/10/19 08:48 Baso % (Auto) 0.5 % 02/10/19 08:48 Absolute Neuts (auto) 10.0 10^3/ul (1.5-7.7) H 02/10/19 08:48 Absolute Lymphs (auto) 1.1 10^3/ul (1.0-4.8) 02/10/19 08:48 Absolute Monos (auto) 1.1 10^3/ul (0-0.8) H 02/10/19 08:48 Absolute Eos (auto) 0.0 10^3/ul (0-0.6) 02/10/19 08:48 Absolute Basos (auto) 0.1 10^3/ul (0-0.2) 02/10/19 08:48 Absolute Nucleated RBC 0.0 10^3/ul 02/10/19 08:48 Nucleated RBC % 0.0 02/10/19 08:48 Patient Temperature Not Reportable 02/06/19 09:15 ABG pH 7.44 (7.35-7.45) 02/06/19 09:15 ABG pH (Temp Correct) Not Reportable 02/06/19 09:15 ABG pCO2 37 mmHg (35-45) 02/06/19 09:15 ABG pCO2 (Temp Corrct Not Reportable 02/06/19 09:15 ABG pO2 158 mmHg (80-100) H 02/06/19 09:15 ABG pO2 (Temp Correct Not Reportable 02/06/19 09:15 ABG HCO3 25.8 mmol/L (19-31) 02/06/19 09:15 ABG O2 Saturation 98.1 % (94.0-98.0) H 02/06/19 09:15 ABG Base Excess 1.1 mmol/L (-2.0-2.0) 02/06/19 09:15 Respiration Rate Not Reportable 02/06/19 09:15 O2 Delivery Device oxymask 02/06/19 09:15 Ventilator Type Not Reportable 02/06/19 09:15 Vent Mode Not Reportable 02/06/19 09:15 FiO2 15 02/06/19 09:15 Inspiratory Time Not Reportable 02/06/19 09:15 PEEP Not Reportable 02/06/19 09:15 Pressure Support Not Reportable 02/06/19 09:15 Pressure Control Not Reportable 02/06/19 09:15 EPAP Not Reportable 02/06/19 09:15 IPAP Not Reportable 02/06/19 09:15 BiPAP Not Reportable 02/06/19 09:15 Sodium 141 mmol/L (135-145) 02/09/19 05:41 Potassium 4.1 mmol/L (3.5-5.0) 02/09/19 05:41 Chloride 110 mmol/L (101-111) 02/09/19 05:41 Carbon Dioxide 22 mmol/L (22-32) 02/09/19 05:41 Anion Gap 9 mmol/L (2-11) 02/09/19 05:41 BUN 53 mg/dL (6-24) H 02/09/19 05:41 Creatinine 1.62 mg/dL (0.67-1.17) H 02/09/19 05:41 Est GFR ( Amer) 49.7 (>60) 02/09/19 05:41 Est GFR (Non-Af Amer) 41.1 (>60) 02/09/19 05:41 BUN/Creatinine Ratio 32.7 (8-20) H 02/09/19 05:41 Glucose 47 mg/dL (70-100) L* 02/09/19 05:41 POC Glucose (mg/dL) 198 mg/dL (70-100) H 02/10/19 11:20 Lactic Acid 1.7 mmol/L (0.5-2.0) 02/06/19 09:12 Calcium 8.9 mg/dL (8.6-10.3) 02/09/19 05:41 Magnesium 1.8 mg/dL (1.9-2.7) L 02/07/19 06:29 Total Bilirubin 0.90 mg/dL (0.2-1.0) 02/06/19 09:12 AST 21 U/L (13-39) 02/06/19 09:12 ALT 17 U/L (7-52) 02/06/19 09:12 Alkaline Phosphatase 133 U/L (34-104) H 02/06/19 09:12 Troponin I 0.04 ng/mL (<0.04) H* 02/06/19 09:12 C-Reactive Protein 21.63 mg/L (<8.01) H 02/06/19 09:12 B-Natriuretic Peptide 742 pg/mL (<=100) H 02/06/19 09:12 Total Protein 6.5 g/dL (6.4-8.9) 02/06/19 09:12 Albumin 3.5 g/dL (3.2-5.2) 02/06/19 09:12 Globulin 3.0 g/dL (2-4) 02/06/19 09:12 Albumin/Globulin Ratio 1.2 (1-3) 02/06/19 09:12 - Objective Active Medications: Acetaminophen (Tylenol Tab*) 650 mg PO Q6H PRN PRN Reason: MILD PAIN or TEMP > 100.4 Last Admin: 02/10/19 09:39 Dose: 650 mg Albuterol (Ventolin 2.5 Mg/3 Ml Neb.Kika*) 2.5 mg INH Q2H PRN PRN Reason: SOB/WHEEZING Last Admin: 02/08/19 08:46 Dose: 2.5 mg Apixaban (Eliquis*) 2.5 mg PO BID [facility] Last Admin: 02/10/19 09:41 Dose: 2.5 mg Aspirin (Aspirin Ec Tab*) 81 mg PO QAM [facility] Last Admin: 02/10/19 09:40 Dose: 81 mg Atorvastatin Calcium (Lipitor*) 40 mg PO DAILY [facility] Last Admin: 02/10/19 09:40 Dose: 40 mg Benzonatate (Tessalon Cap*) 100 mg PO BID PRN PRN Reason: COUGH Cephalexin HCl (Keflex Cap*) 500 mg PO BID [facility] Last Admin: 02/10/19 09:40 Dose: 500 mg Cholecalciferol (Vitamin D Tab*) 1,000 units PO DAILY [facility] Last Admin: 02/10/19 09:41 Dose: 1,000 units Dextrose (Dextrose 50% Vial 50 Ml*) 25 ml IV PUSH .FOR FS < 60 - SS PRN PRN Reason: FS < 60 Doxycycline Hyclate (Vibramycin Cap(*)) 100 mg PO BID [facility] Last Admin: 02/10/19 09:40 Dose: 100 mg Finasteride (Proscar Tab*) 5 mg PO DAILY [facility] Last Admin: 02/10/19 09:40 Dose: 5 mg Furosemide (Lasix Tab*) 40 mg PO DAILY [facility] Last Admin: 02/10/19 09:40 Dose: 40 mg Guaifenesin (Mucinex*) 1,200 mg PO BID [facility] Last Admin: 02/10/19 09:40 Dose: 1,200 mg Insulin Glargine (Lantus(*)) [facility] Admin: 02/10/19 09:20 Dose: 15 units Insulin Human Lispro (Humalog*) 0 units SUBCUT ACHS [facility]; Protocol Last Admin: 02/10/19 17:13 Dose: Not Given Lorazepam (Ativan Tab(*)) 0.5 mg PO Q4H PRN PRN Reason: ANXIETY Last Admin: 02/10/19 14:35 Dose: 0.5 mg Metoprolol Tartrate (Lopressor Tab*) 25 mg PO BID [facility] Last Admin: 02/10/19 09:40 Dose: 25 mg Mometasone Furoate/Formoterol Fumar (Dulera 200/5 Mdi*) 2 puff INH BID [facility] Last Admin: 02/10/19 09:02 Dose: 2 puff Ondansetron HCl (Zofran Inj*) 4 mg IV Q6H PRN PRN Reason: NAUSEA Oxycodone HCl (Roxycodone Tab*) 5 mg PO QID PRN PRN Reason: PAIN - MODERATE Pantoprazole Sodium (Protonix Tab*) 40 mg PO QAM [facility] Last Admin: 02/10/19 09:41 Dose: 40 mg Prednisone (Deltasone Tab*) 60 mg PO DAILY [facility] Last Admin: 02/10/19 09:40 Dose: 60 mg Senna (Senokot 8.6 Mg Tab*) 2 tab PO BID PRN PRN Reason: CONSTIPATION Sertraline HCl (Zoloft*) 100 mg PO QAM [facility] Last Admin: 02/10/19 09:40 Dose: 100 mg Tiotropium [place] (Spiriva Respimat 2.5 Mcg) 2 puff INH DAILY [facility] Last Admin: 02/10/19 09:02 Dose: 2 puff Vital Signs: Vital Signs: Temp Pulse Resp BP Pulse Ox 97.6 F 76 14 104/68 92 02/10/19 14:40 02/10/19 14:40 02/10/19 14:40 02/10/19 14:40 02/10/19 14:40 Patient Weight: Weight 86.636 kg Intake and Output: Intake & Output 02/08/19 02/09/19 02/10/19 02/11/19 06:59 06:59 06:59 06:59 Intake Total 1468 1655 730 120 Output Total 425 Balance 1468 1655 305 120 Weight 85.185 kg 86.409 kg 86.636 kg Intake: IV Fluids 658 ABX - DOXYCYCLINE 658 IVPB 550 ABX - DOXYCYCLINE 500 Mag Sulfate 50 Oral 260 1655 730 120 Output: Urine 425 Other: Estimated Void Large Large Small # Bowel Movements 1 1 Estimated Stool Amount Medium # Voids 5 5 3 ADLs: Meal Record Start: 02/06/19 14: 37 Freq: 09,13,18 Status: Inactive Protocol: Created 02/06/19 14:37 System (Rec: 02/06/19 14:37 System RESP-C01) Document 02/07/19 09:00 [id number] (Rec: 02/07/19 09:19 [id number] ICU-C12) ADLs: Meal Record Start: 02/07/19 10: 01 Freq: DAILY@0900,1400,1800 Status: Active Protocol: Created 02/07/19 10:01 [id number] (Rec: 02/07/19 10:01 [id number] ICU-C12) Document 02/07/19 13:52 [id number] (Rec: 02/07/19 13:52 [id number] TELE-C08) Document 02/07/19 18:00 [id number] (Rec: 02/07/19 22:39 [id number] TELE-C13) Document 02/08/19 09:00 [id number] (Rec: 02/08/19 09:40 HUQ9956 TELE-C11) Document 02/08/19 14:00 [id number] (Rec: 02/08/19 15:37 [id number] TELE-C10) Document 02/08/19 18:00 [id number] (Rec: 02/08/19 18:30 [id number] TELE-C11) Document 02/09/19 09:00 [id number] (Rec: 02/09/19 10:15 [id number] MED-M02) Document 02/09/19 13:53 [id number] (Rec: 02/09/19 13:53 PLL6052 TELE-C05) Document 02/09/19 18:00 [id number] (Rec: 02/10/19 08:50 QHS5590 TELE-M21) Document 02/10/19 09:00 QSX2214 (Rec: 02/10/19 10:44 PWV5020 TELE-C09) Document 02/10/19 14:00 [id number] (Rec: 02/10/19 14:09 [id number] TELE-C10) Intake and Output Start: 02/06/19 09: 00 Freq: Status: Active Protocol: Created 02/06/19 09:00 System (Rec: 02/06/19 09:00 System [id number]) Intake and Output Start: 02/06/19 14: 37 Freq: Q1HR Status: Inactive Protocol: Created 02/06/19 14:37 System (Rec: 02/06/19 14:37 System RESP-C01) Document 02/06/19 15:00 [id number] (Rec: 02/06/19 16:10 JYS5074 ICU-C07) Document 02/06/19 16:00 [id number] (Rec: 02/06/19 16:10 [id number] ICU-C07) Document 02/06/19 18:00 [id number] (Rec: 02/06/19 19:02 [id number] ICU-C07) Document 02/07/19 02:00 [id number] (Rec: 02/07/19 02:13 [id number] ICU-C12) Document 02/07/19 09:00 [id number] (Rec: 02/07/19 09:19 [id number] ICU-C12) Intake and Output Start: 02/07/19 10: 01 Freq: DAILY@0600,1400,2200 Status: Active Protocol: Created 02/07/19 10:01 [id number] (Rec: 02/07/19 10:01 [id number] ICU-C12) Document 02/07/19 13:54 [id number] (Rec: 02/07/19 13:54 ZVX3191 TELE-C08) Document 02/07/19 22:00 IBL7189 (Rec: 02/07/19 22:40 BFQ4882 TELE-C13) Document 02/08/19 03:13 RRY4320 (Rec: 02/08/19 03:13 [id number] TELE-M21) Document 02/08/19 05:56 [id number] (Rec: 02/08/19 05:58 VJF7536 TELE-C35) Document 02/08/19 14:00 HNQ2999 (Rec: 02/08/19 15:37 TST7614 TELE-C10) Document 02/08/19 18:40 [id number] (Rec: 02/08/19 18:40 FUQ3027 TELE-C11) Document 02/08/19 19:03 MQF3040 (Rec: 02/08/19 19:03 GJP7351 TELE-C11) Document 02/08/19 22:00 WGO3483 (Rec: 02/08/19 23:27 [id number] TELE-C13) Document 02/09/19 06:00 HRL6203 (Rec: 02/09/19 07:26 [id number] MED-M26) Document 02/09/19 13:38 JUU8901 (Rec: 02/09/19 13:38 IJY5917 TELE-C11) Document 02/09/19 14:00 IZC7937 (Rec: 02/09/19 14:49 [id number] TELE-C01) Document 02/09/19 22:00 TQT4888 (Rec: 02/09/19 22:46 JMT1923 TELE-C01) Document 02/10/19 06:00 [id number] (Rec: 02/10/19 06:09 WVL1136 TELE-C01) Document 02/10/19 14:00 UFQ4380 (Rec: 02/10/19 14:09 [id number] TELE-C10) Eyes: No Scleral Icterus, - - PERRL Ears/Nose/Mouth/Throat: Mucous Membranes Moist Neck: Trachea Midline Cardiovascular: RRR, - - systolic murmur Respiratory: Symmetrical Chest Expansion and Respiratory Effort Abdominal: NL Sounds; No Tenderness; No Distention, - - abd soft, nontender, nondistended; no epigastric tenderness Extremities: No Edema, No Clubbing, Cyanosis, - - no calf tenderness Neurological: Alert and Oriented x 3, NL Muscle Strength and Tone - Assessment Assessment: 83yo male with severe admitted with COPD exacerbation and acute on chronic respiratory failure - Plan Consult Plan (MU): Palliative Plan: Long discussion with pt about goals of care. Pt competed MOLST form requesting no CPR, no intubation and no feeding tube but would like trial of non invasive ventilation. He would also like to try rehab at if no bed, [facility]. Pt still wants to reside at home but acknowledges his health has been declining evidenced by many ER visits and 4 hospitalizations. [facility] referral to be sent after rehab or immediately if he doesn't go to rehab. Pt is also followed with [facility]. Will ask case mangement if any other services are available through the [place]. KPS 50%, PPS 50% - Time On Unit Date of Evaluation: 02/10/19 Hospice Consult Time in: 16:30 Hospice Consult Time Out: 17:30 Hospice Consult Time Total: 60 > 50% of Time Spend In Counseling or Coordinating Care: Yes
--- NOTE | 2019-02-10 19:46 | PN ---
Subjective Date of Service: 02/10/19 Interval History: Patient anxious and agitated when discussing removing BiPAP during day when he is awake. Again he tells me he feels like he can't breathe. When he calms down, he agrees his breathing is comfortable at rest and agrees that he is feeling anxious. He had one episode of left sided chest pain that lasted 3-4 minutes in the day and then resolved. He denies fever/chils, abd pain, nausea/vomiting, dizziness. Agreeable to taking ativan and attempting BiPAP removal. Objective Active Medications: Acetaminophen (Tylenol Tab*) 650 mg PO Q6H PRN PRN Reason: MILD PAIN or TEMP > 100.4 Last Admin: 02/10/19 09:39 Dose: 650 mg Albuterol (Ventolin 2.5 Mg/3 Ml Neb.Kika*) 2.5 mg INH Q2H PRN PRN Reason: SOB/WHEEZING Last Admin: 02/08/19 08:46 Dose: 2.5 mg Apixaban (Eliquis*) 2.5 mg PO BID [facility] Last Admin: 02/10/19 09:41 Dose: 2.5 mg Aspirin (Aspirin Ec Tab*) 81 mg PO QAM [facility] Last Admin: 02/10/19 09:40 Dose: 81 mg Atorvastatin Calcium (Lipitor*) 40 mg PO DAILY [facility] Last Admin: 02/10/19 09:40 Dose: 40 mg Benzonatate (Tessalon Cap*) 100 mg PO BID PRN PRN Reason: COUGH Cephalexin HCl (Keflex Cap*) 500 mg PO BID [facility] Last Admin: 02/10/19 09:40 Dose: 500 mg Cholecalciferol (Vitamin D Tab*) 1,000 units PO DAILY [facility] Last Admin: 02/10/19 09:41 Dose: 1,000 units Dextrose (Dextrose 50% Vial 50 Ml*) 25 ml IV PUSH .FOR FS < 60 - SS PRN PRN Reason: FS < 60 Doxycycline Hyclate (Vibramycin Cap(*)) 100 mg PO BID [facility] Last Admin: 02/10/19 09:40 Dose: 100 mg Finasteride (Proscar Tab*) 5 mg PO DAILY [facility] Last Admin: 02/10/19 09:40 Dose: 5 mg Furosemide (Lasix Tab*) 40 mg PO DAILY [facility] Last Admin: 02/10/19 09:40 Dose: 40 mg Guaifenesin (Mucinex*) 1,200 mg PO BID [facility] Last Admin: 02/10/19 09:40 Dose: 1,200 mg Insulin Glargine (Lantus(*)) 15 units SUBCUT [facility] Last Admin: 02/10/19 09:20 Dose: 15 units Insulin Human Lispro (Humalog*) 0 units SUBCUT [facility]; Protocol Last Admin: 02/10/19 17:13 Dose: Not Given Lorazepam (Ativan Tab(*)) 0.5 mg PO Q4H PRN PRN Reason: ANXIETY Last Admin: 02/10/19 14:35 Dose: 0.5 mg Metoprolol Tartrate (Lopressor Tab*) 25 mg PO BID [facility] Last Admin: 02/10/19 09:40 Dose: 25 mg Mometasone Furoate/Formoterol Fumar (Dulera 200/5 Mdi*) 2 puff INH BID [facility] Last Admin: 02/10/19 09:02 Dose: 2 puff Ondansetron HCl (Zofran Inj*) 4 mg IV Q6H PRN PRN Reason: NAUSEA Oxycodone HCl (Roxycodone Tab*) 5 mg PO QID PRN PRN Reason: PAIN - MODERATE Pantoprazole Sodium (Protonix Tab*) 40 mg PO [facility] Last Admin: 02/10/19 09:41 Dose: 40 mg Prednisone (Deltasone Tab*) 60 mg PO DAILY [facility] Last Admin: 02/10/19 09:40 Dose: 60 mg Senna (Senokot 8.6 Mg Tab*) 2 tab PO BID PRN PRN Reason: CONSTIPATION Sertraline HCl (Zoloft*) 100 mg PO [facility] Last Admin: 02/10/19 09:40 Dose: 100 mg Tiotropium [place] (Spiriva Respimat 2.5 Mcg) 2 puff INH DAILY [facility] Last Admin: 02/10/19 09:02 Dose: 2 puff Vital Signs - 8 hr 02/10/19 02/10/19 02/10/19 11:54 14:35 14:40 Temperature 97.9 F 97.6 F Pulse Rate 105 76 Respiratory 16 18 14 Rate Blood Pressure 92/70 104/68 (mmHg) O2 Sat by Pulse 91 92 Oximetry 02/10/19 17:20 Temperature Pulse Rate Respiratory 20 Rate Blood Pressure (mmHg) O2 Sat by Pulse Oximetry Oxygen Devices in Use Now: Nasal Cannula Appearance: Obese, elderly white male, laying upright in bed, agitated at first then appearing comfortable when instructed to breathe slowly, in NAD Eyes: No Scleral Icterus, - - PERRL Ears/Nose/Mouth/Throat: Mucous Membranes Moist Neck: Trachea Midline, - - no accessory muscle use Respiratory: Symmetrical Chest Expansion and Respiratory Effort, - - diminshed lung sounds but CTA Cardiovascular: NL Sounds; No Murmurs; No JVD, RRR Abdominal: - - abd soft, nontender, nondistended Extremities: No Edema, No Clubbing, Cyanosis Skin: No Rash or Ulcers Neurological: Alert and Oriented x 3, NL Muscle Strength and Tone Result Diagrams: 02/10/19 08:48 02/09/19 05:41 Microbiology and Other Data: Microbiology 02/06/19 09:21 Aerobic Blood Culture - Preliminary Blood Venous No Growth Day 1 Anaerobic Blood Culture - Preliminary No Growth Day 1 02/06/19 09:12 Aerobic Blood Culture - Preliminary Blood Venous No Growth Day 1 Anaerobic Blood Culture - Preliminary No Growth Day 1 02/06/19 14:45 Nasal Screen MRSA (PCR) - Final Nasal Mrsa Not Detected Assess/Plan/Problems-Billing Assessment: This is an 83 year old male with complex medical history that presents to the ED with complaints of SOB. - Patient Problems (1) Acute and chronic respiratory failure with hypoxia Current Visit: No Status: Acute Code(s): J96.21 - ACUTE AND CHRONIC RESPIRATORY FAILURE WITH HYPOXIA SNOMED Code(s): 61995659 Comment: - On 3L at home, requiring 4-5L now - Combination of CHF/fluid overload, severe aortic stenosis and COPD exac - CXR with pleural effusion, no PNA, does appear to be interstitial edema - Wean O2 as tolerated - Pulmonary toilet - Gentle diuresis - Bipap when napping and overnight. Is frequently requesting during the day due to dyspnea despite good oxygen saturation. Discussed stopping this today - Ordered ativan and monitoring for improvement of anxiety and symptomatic dyspnea - Appreciate palliatve consult (2) COPD exacerbation Current Visit: No Status: Acute Priority: High Onset Date: 10/05/13 Code (s): J44.1 - CHRONIC OBSTRUCTIVE PULMONARY DISEASE W (ACUTE) EXACERBATION SNOMED Code(s): 902069518 Comment: - Pulmonary toilet, nebs and doxycyline - Afebrile - Continue oral prednisone - No wheezing (3) TAMICA treated with BiPAP Current Visit: Yes Status: Acute Code(s): G47.33 - OBSTRUCTIVE SLEEP APNEA ( ADULT) (PEDIATRIC) SNOMED Code(s): 21398715 Comment: - Continue bipap 16/12 with naps and overnight - Please encourage BiPAP mask off when awake during day (4) Afib Current Visit: No Status: Acute Priority: High Code(s): I48.91 - UNSPECIFIED ATRIAL FIBRILLATION SNOMED Code(s): 41651153 Comment: - Rate controlled with metoprolol 25mg BID - Continue eliquis 2.5mg BID (5) CAD (coronary artery disease) Current Visit: No Status: Acute Priority: High Code(s): I25.10 - ATHSCL HEART DISEASE OF [place] CORONARY ARTERY W/O ANG PCTRS SNOMED Code(s): 78842702 Comment: - Continue ASA, BB and statin (6) Cellulitis of fifth toe of left foot Current Visit: No Status: Acute Code(s): L03.032 - CELLULITIS OF LEFT TOE SNOMED Code(s): 38675587 Comment: - s/p amputation on 01/06 - Continue doxy for 2 more weeks - Orthopedics removed opal 02/08; will need follow up with ortho outpatient at discharge (7) Hypertension Current Visit: No Status: Acute Priority: High Code(s): I10 - ESSENTIAL ( PRIMARY) HYPERTENSION SNOMED Code(s): 14912746 Comment: - Stable on lisinopril and metoprolol (8) Severe aortic stenosis Current Visit: No Status: Acute Code(s): I35.0 - NONRHEUMATIC AORTIC (VALVE ) STENOSIS SNOMED Code(s): 26617475 Comment: - Reviewed record from 2017 when patient has documented 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 - No nitrates, does appear to be fluid overloaded at this time - EF is preserved at 55-60% per ECHO from last month - Continue medical management - Had one dose IV lasix previously with good effect, will place on PO lasix at this time, appears euvolemic (9) Diabetes mellitus type 2 in obese Current Visit: Yes Status: Acute Code(s): E11.69 - TYPE 2 DIABETES MELLITUS WITH OTHER SPECIFIED COMPLICATION; E66.9 - OBESITY, UNSPECIFIED SNOMED Code(s) : 23453040 Comment: -A1c 6.9 in December indicating very good BG control, in fact perhaps too tight control -will d/c lantus, continue SS lispro while inpatient -could continue home victoza at discharge (10) DNR (do not resuscitate) Current Visit: No Status: Acute Comment: - Confirmed, MOLST updated (11) DVT prophylaxis Current Visit: No Status: Acute Code(s): SQO9471 - SNOMED Code(s): 395649652 Comment: -eliquis Status and Disposition: Inpatient, SW consulted, may benefit from PATH. CM working on discharge plan.
[2019-02-11] MEDS: SPIRIVA Respimat* (tiotropium) 2.5 mcg/inh Inhaler INH SCH (07:34)
[2019-02-11] MEDS: Mometasone/Formoter 200/5 MDI INH SCH ×2 (07:34→20:14)
[2019-02-11] MEDS: Insulin LISPRO* 1 UNITS UNIT SUBCUT SCH ×4 (08:12→22:05)
[2019-02-11] MEDS: LORazepam TAB(*) 0.5 MG PO PRN (11:00)
[2019-02-11] MEDS: Sertraline* 100 MG TAB PO SCH (11:01)
[2019-02-11] MEDS: predniSONE TAB* 20 MG PO SCH (11:01)
[2019-02-11] MEDS: Cholecalciferol TAB* 1000 UNITS PO SCH (11:01)
[2019-02-11] MEDS: guaiFENesin ER TAB 600 MG PO SCH ×2 (11:02→22:08)
[2019-02-11] MEDS: DOXYcycline CAP(*) 100 MG PO SCH ×2 (11:02→22:08)
[2019-02-11] MEDS: Aspirin EC TAB* 81 MG TAB.EC PO SCH (11:02)
[2019-02-11] MEDS: Finasteride TAB* 5 MG PO SCH (11:02)
[2019-02-11] MEDS: Cephalexin CAP* 500 MG PO SCH ×2 (11:03→22:06)
[2019-02-11] MEDS: Atorvastatin* 40 MG TAB PO SCH (11:03)
[2019-02-11] MEDS: Pantoprazole TAB * 40 MG TAB PO SCH (11:04)
[2019-02-11] MEDS: Apixaban* 2.5 MG TAB PO SCH ×2 (11:04→22:07)
[2019-02-11] MEDS: Furosemide TAB* 40 MG PO SCH (11:04)
[2019-02-11] MEDS: Metoprolol Tartrate TAB* 25 MG PO SCH ×2 (11:04→22:07)
--- NOTE | 2019-02-11 14:22 | PN ---
Progress Note - Progress Note Date of Service: 02/11/19 SOAP: Subjective: [Pt seen at bedside. He has no left foot pain. Denies fever/chills Objective: []Gen: NAD, appears well LLE: Incision CDI no tenderness, erythema or warmth. No discharge from incision. Vital Signs Temp 98.4 F 02/11/19 11:15 Pulse 104 02/11/19 11:15 Resp 20 02/11/19 11:15 BP 99/63 02/11/19 11:15 Pulse Ox 92 02/11/19 11:15 Intake & Output 02/10/19 02/11/19 02/11/19 18:59 06:59 18:59 Intake Total 120 250 240 Output Total 0 Balance 120 250 240 Weight 188 lb 9.6 oz Intake: Oral 120 250 240 Output: Urine 0 Other: Estimated Void Medium # Voids 2 Assessment: []SP partial 5th ray amp 01/06 Plan: []Continue abx and fu ortho next week for wound check daily betadine wet to dry dressing to distal aspect of incision Report any drainage, erythema, pain to ortho Elevated WBC today, monitor
--- NOTE | 2019-02-11 15:54 | PN ---
Subjective Date of Service: 02/11/19 Interval History: Patient was agreeable to taking of BiPAP during the day while awake today and he tells me he felt more comfortable without it. He states that the ativan helped his anxiety and feeling of "choking and dying." Patient states his breathing feels "50% to normal." Denies feeling short of breath at rest during evaluation, but is breathing with pursed lips as described below. Denies chest pain, abd pain, fever/chills, leg pain. Objective Active Medications: Acetaminophen (Tylenol Tab*) 650 mg PO Q6H PRN PRN Reason: MILD PAIN or TEMP > 100.4 Last Admin: 02/10/19 09:39 Dose: 650 mg Albuterol (Ventolin 2.5 Mg/3 Ml Neb.Kika*) 2.5 mg INH Q2H PRN PRN Reason: SOB/WHEEZING Last Admin: 02/08/19 08:46 Dose: 2.5 mg Apixaban (Eliquis*) 2.5 mg PO BID [facility] Last Admin: 02/11/19 11:04 Dose: 2.5 mg Aspirin (Aspirin Ec Tab*) 81 mg PO QAM [facility] Last Admin: 02/11/19 11:02 Dose: 81 mg Atorvastatin Calcium (Lipitor*) 40 mg PO DAILY [facility] Last Admin: 02/11/19 11:03 Dose: 40 mg Benzonatate (Tessalon Cap*) 100 mg PO BID PRN PRN Reason: COUGH Cephalexin HCl (Keflex Cap*) 500 mg PO BID [facility] Last Admin: 02/11/19 11:03 Dose: 500 mg Cholecalciferol (Vitamin D Tab*) 1,000 units PO DAILY [facility] Last Admin: 02/11/19 11:01 Dose: 1,000 units Dextrose (Dextrose 50% Vial 50 Ml*) 25 ml IV PUSH .FOR FS < 60 - SS PRN PRN Reason: FS < 60 Doxycycline Hyclate (Vibramycin Cap(*)) 100 mg PO BID [facility] Last Admin: 02/11/19 11:02 Dose: 100 mg Finasteride (Proscar Tab*) 5 mg PO DAILY [facility] Last Admin: 02/11/19 11:02 Dose: 5 mg Furosemide (Lasix Tab*) 40 mg PO DAILY [facility] Last Admin: 02/11/19 11:04 Dose: 40 mg Guaifenesin (Mucinex*) 1,200 mg PO BID [facility] Last Admin: 02/11/19 11:02 Dose: 1,200 mg Insulin Human Lispro (Humalog*) 0 units SUBCUT [facility]; Protocol Last Admin: 02/11/19 12:48 Dose: 9 units Lorazepam (Ativan Tab(*)) 0.5 mg PO Q4H PRN PRN Reason: ANXIETY Last Admin: 02/11/19 11:00 Dose: 0.5 mg Metoprolol Tartrate (Lopressor Tab*) 25 mg PO BID [facility] Last Admin: 02/11/19 11:04 Dose: 25 mg Mometasone Furoate/Formoterol Fumar (Dulera 200/5 Mdi*) 2 puff INH BID [facility] Last Admin: 02/11/19 07:34 Dose: Not Given Ondansetron HCl (Zofran Inj*) 4 mg IV Q6H PRN PRN Reason: NAUSEA Oxycodone HCl (Roxycodone Tab*) 5 mg PO QID PRN PRN Reason: PAIN - MODERATE Pantoprazole Sodium (Protonix Tab*) 40 mg PO QAM [facility] Last Admin: 02/11/19 11:04 Dose: 40 mg Prednisone (Deltasone Tab*) 60 mg PO DAILY [facility] Last Admin: 02/11/19 11:01 Dose: 60 mg Senna (Senokot 8.6 Mg Tab*) 2 tab PO BID PRN PRN Reason: CONSTIPATION Sertraline [facility] ([facility]oloft*) [facility] Admin: 02/11/19 11:01 Dose: 100 mg Tiotropium [place] (Spiriva Respimat 2.5 Mcg) 2 puff INH DAILY [facility] Last Admin: 02/11/19 07:34 Dose: Not Given Vital Signs - 8 hr 02/11/19 02/11/19 02/11/19 08:00 11:00 11:15 Temperature 98.4 F Pulse Rate 104 Respiratory 20 20 20 Rate Blood Pressure 99/63 (mmHg) O2 Sat by Pulse 92 Oximetry 02/11/19 14:47 Temperature Pulse Rate Respiratory 20 Rate Blood Pressure (mmHg) O2 Sat by Pulse Oximetry Oxygen Devices in Use Now: Nasal Cannula Appearance: Elderly white male, laying in hospital bed, appearing overall comfortable, breathing with pursed lips Eyes: No Scleral Icterus, - - PERRL Ears/Nose/Mouth/Throat: Mucous Membranes Moist Neck: NL Appearance and Movements; NL JVP Respiratory: Symmetrical Chest Expansion and Respiratory Effort, - - diminished lung sounds throughout but overall clear Cardiovascular: RRR, - - systolic murmur Abdominal: - - abd soft, nontender, nondistended Extremities: No Edema, No Clubbing, Cyanosis Skin: No Rash or Ulcers Neurological: Alert and Oriented x 3, NL Muscle Strength and Tone Result Diagrams: 02/10/19 08:48 02/09/19 05:41 Microbiology and Other Data: Microbiology 02/06/19 09:21 Aerobic Blood Culture - Preliminary Blood Venous No Growth Day 1 Anaerobic Blood Culture - Preliminary No Growth Day 1 02/06/19 09:12 Aerobic Blood Culture - Preliminary Blood Venous No Growth Day 1 Anaerobic Blood Culture - Preliminary No Growth Day 1 02/06/19 14:45 Nasal Screen MRSA (PCR) - Final Nasal Mrsa Not Detected Assess/Plan/Problems-Billing Assessment: This is an 83 year old male with complex medical history that presents to the ED with complaints of SOB. - Patient Problems (1) Acute and chronic respiratory failure with hypoxia Current Visit: No Status: Acute Code(s): J96.21 - ACUTE AND CHRONIC RESPIRATORY FAILURE WITH HYPOXIA SNOMED Code(s): 75213044 Comment: - On 3L at home, requiring 4-5L now - Combination of CHF/fluid overload, severe aortic stenosis and COPD exac - CXR with pleural effusion, no PNA, does appear to be interstitial edema - Wean O2 as tolerated - Pulmonary toilet - Gentle diuresis - BiPAP when napping and overnight. Was frequently requesting during the day, however was not doing this today as ativan was helping prevent anxiety and feelings of "near " - continue prn ativan - Appreciate palliatve consult. Patient is now agreeable to [facility] which he previously was refusing. (2) COPD exacerbation Current Visit: No Status: Acute Priority: High Onset Date: 10/05/13 Code (s): J44.1 - CHRONIC OBSTRUCTIVE PULMONARY DISEASE W (ACUTE) EXACERBATION SNOMED Code(s): 902646505 Comment: - Pulmonary toilet, nebs and doxycyline - Afebrile - Continue oral prednisone - No wheezing - Attempt to wean O2 if patient allows - He does appear visibly dyspneic though O2 sats wnl (3) TAMICA treated with BiPAP Current Visit: Yes Status: Acute Code(s): G47.33 - OBSTRUCTIVE SLEEP APNEA ( ADULT) (PEDIATRIC) SNOMED Code(s): 29328523 Comment: - Continue bipap 07/03 with naps and overnight - Please encourage BiPAP mask off when awake during day (4) Afib Current Visit: No Status: Acute Priority: High Code(s): I48.91 - UNSPECIFIED ATRIAL FIBRILLATION SNOMED Code(s): 57405364 Comment: - Rate controlled with metoprolol 25mg BID - Continue eliquis 2.5mg BID (5) CAD (coronary artery disease) Current Visit: No Status: Acute Priority: High Code(s): I25.10 - ATHSCL HEART DISEASE OF [place] CORONARY ARTERY W/O ANG PCTRS SNOMED Code(s): 48100709 Comment: - Continue ASA, BB and statin (6) Cellulitis of fifth toe of left foot Current Visit: No Status: Acute Code(s): L03.032 - CELLULITIS OF LEFT TOE SNOMED Code(s): 89789561 Comment: - s/p amputation on 01/06 - Continue doxy for 2 more weeks - Orthopedics removed opal 02/08; will need follow up with ortho outpatient at discharge (7) Hypertension Current Visit: No Status: Acute Priority: High Code(s): I10 - ESSENTIAL ( PRIMARY) HYPERTENSION SNOMED Code(s): 99370844 Comment: - Stable on lisinopril and metoprolol (8) Severe aortic stenosis Current Visit: No Status: Acute Code(s): I35.0 - NONRHEUMATIC AORTIC (VALVE ) STENOSIS SNOMED Code(s): 49374469 Comment: - Reviewed record from 2017 when patient has documented 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 - No nitrates, does appear to be fluid overloaded at this time - EF is preserved at 55-60% per ECHO from last month - Continue medical management - Had one dose IV lasix previously with good effect, will place on PO lasix at this time, appears euvolemic (9) Diabetes mellitus type 2 in obese Current Visit: Yes Status: Acute Code(s): E11.69 - TYPE 2 DIABETES MELLITUS WITH OTHER SPECIFIED COMPLICATION; E66.9 - OBESITY, UNSPECIFIED SNOMED Code(s) : 14240491 Comment: -A1c 6.9 in December indicating very good BG control, in fact perhaps too tight control -will d/c lantus, continue SS lispro while inpatient -could continue home victoza at discharge (10) DNR (do not resuscitate) Current Visit: No Status: Acute Comment: - Confirmed, MOLST updated (11) DVT prophylaxis Current Visit: No Status: Acute Code(s): VOR0251 - SNOMED Code(s): 340957819 Comment: -eliquis Status and Disposition: Pending [facility] placement. Patient has poor living conditions despite live-in aid who is patient's 2nd cousin. SW involved.
[2019-02-12] MEDS: Acetaminophen TAB* 325 MG PO PRN (04:39)
[2019-02-12] MEDS: Mometasone/Formoter 200/5 MDI INH SCH ×2 (07:44→19:10)
[2019-02-12] MEDS: SPIRIVA Respimat* (tiotropium) 2.5 mcg/inh Inhaler INH SCH (07:44)
[2019-02-12 09:03] LABS: Calcium 8.8 mg/dL (8.6-10.3); Potassium 4.1 mmol/L (3.5-5.0)
[2019-02-12 09:09] LABS: BUN/Creatinine Ratio 42.4 (8-20); EGFR African American 53.9 (>60); EGFR Non-African American 44.6 (>60)
[2019-02-12] MEDS: Insulin LISPRO* 1 UNITS UNIT SUBCUT SCH ×4 (09:19→21:11)
[2019-02-12] MEDS: predniSONE TAB* 20 MG PO SCH (09:19)
[2019-02-12] MEDS: Pantoprazole TAB * 40 MG TAB PO SCH (09:20)
[2019-02-12] MEDS: Cephalexin CAP* 500 MG PO SCH ×2 (09:20→21:09)
[2019-02-12] MEDS: Apixaban* 2.5 MG TAB PO SCH ×2 (09:20→21:10)
[2019-02-12] MEDS: Sertraline* 100 MG TAB PO SCH (09:20)
[2019-02-12] MEDS: Furosemide TAB* 40 MG PO SCH (09:20)
[2019-02-12] MEDS: guaiFENesin ER TAB 600 MG PO SCH ×2 (09:21→21:10)
[2019-02-12] MEDS: Aspirin EC TAB* 81 MG TAB.EC PO SCH (09:21)
[2019-02-12] MEDS: Cholecalciferol TAB* 1000 UNITS PO SCH (09:21)
[2019-02-12] MEDS: Finasteride TAB* 5 MG PO SCH (09:21)
[2019-02-12] MEDS: Atorvastatin* 40 MG TAB PO SCH (09:21)
[2019-02-12] MEDS: DOXYcycline CAP(*) 100 MG PO SCH ×2 (09:22→21:09)
[2019-02-12] MEDS: Metoprolol Tartrate TAB* 25 MG PO SCH ×2 (09:22→21:09)
--- NOTE | 2019-02-12 14:09 | PN ---
Progress Note - Progress Note Date of Service: 02/12/19 SOAP: Subjective: Pt is doing well. Pain controlled. Denies F/C, CP/SOB or calf pain Objective: PE- 83 y/o WDWN M NAD LLE- dressing changed, inc c/d/i with no drainage, calf soft nT, +DF/PF ankle, NVI Vital Signs Temp Pulse Resp BP Pulse Ox 97.5 F 99 18 100/67 97 02/12/19 11:15 02/12/19 11:15 02/12/19 11:15 02/12/19 11:15 02/12/19 11:15 Laboratory Results - last 24 hr 02/11/19 02/11/19 02/12/19 16:33 21:16 07:15 Sodium Potassium Chloride Carbon Dioxide Anion Gap BUN Creatinine Est GFR ( Amer) Est GFR (Non-Af Amer) BUN/Creatinine Ratio Glucose POC Glucose (mg/dL) 127 H 209 H 104 H Calcium 02/12/19 02/12/19 08:29 11:49 Sodium 141 Potassium 4.1 Chloride 109 Carbon Dioxide 27 Anion Gap 5 BUN 64 H Creatinine 1.51 H Est GFR ( Amer) 53.9 Est GFR (Non-Af Amer) 44.6 BUN/Creatinine Ratio 42.4 H Glucose 89 POC Glucose (mg/dL) 364 H Calcium 8.8 Assessment: []SP left foot partial 5th ray amp 01/06 Plan: []Continue abx and fu ortho outpt next week for wound check daily betadine wet to dry dressing to distal aspect of incision Report any drainage, erythema, pain to ortho WBC down trending today, cont to monitor
--- NOTE | 2019-02-12 17:41 | PN ---
Subjective Date of Service: 02/12/19 Interval History: Patient more frequently allowing BiPAP to be removed during the day. He feels more comfortable without it, though does still at times tell nursing, "I feel like I'm dying without it." His breathing feels comfortable at time of evaluation. Denies chest pain, abd pain, fever/chills. Says he feels less anxious today and less tired today. Objective Active Medications: Acetaminophen (Tylenol Tab*) 650 mg PO Q6H PRN PRN Reason: MILD PAIN or TEMP > 100.4 Last Admin: 02/12/19 04:39 Dose: 650 mg Albuterol (Ventolin 2.5 Mg/3 Ml Neb.Kika*) 2.5 mg INH Q2H PRN PRN Reason: SOB/WHEEZING Last Admin: 02/08/19 08:46 Dose: 2.5 mg Apixaban (Eliquis*) 2.5 mg PO BID [facility] Last Admin: 02/12/19 09:20 Dose: 2.5 mg Aspirin (Aspirin Ec Tab*) 81 mg PO QAM [facility] Last Admin: 02/12/19 09:21 Dose: 81 mg Atorvastatin Calcium (Lipitor*) 40 mg PO DAILY [facility] Last Admin: 02/12/19 09:21 Dose: 40 mg Benzonatate (Tessalon Cap*) 100 mg PO BID PRN PRN Reason: COUGH Cephalexin HCl (Keflex Cap*) 500 mg PO BID [facility] Last Admin: 02/12/19 09:20 Dose: 500 mg Cholecalciferol (Vitamin D Tab*) 1,000 units PO DAILY [facility] Last Admin: 02/12/19 09:21 Dose: 1,000 units Dextrose (Dextrose 50% Vial 50 Ml*) 25 ml IV PUSH .FOR FS < 60 - SS PRN PRN Reason: FS < 60 Doxycycline Hyclate (Vibramycin Cap(*)) 100 mg PO BID [facility] Last Admin: 02/12/19 09:22 Dose: 100 mg Finasteride (Proscar Tab*) 5 mg PO DAILY [facility] Last Admin: 02/12/19 09:21 Dose: 5 mg Furosemide (Lasix Tab*) 40 mg PO DAILY [facility] Last Admin: 02/12/19 09:20 Dose: 40 mg Guaifenesin (Mucinex*) 1,200 mg PO BID [facility] Last Admin: 02/12/19 09:21 Dose: 1,200 mg Insulin Human Lispro (Humalog*) 0 units SUBCUT [facility]; Protocol Last Admin: 02/12/19 17:15 Dose: 12 units Lorazepam (Ativan Tab(*)) 0.5 mg PO Q4H PRN PRN Reason: ANXIETY Last Admin: 02/11/19 11:00 Dose: 0.5 mg Metoprolol Tartrate (Lopressor Tab*) 25 mg PO BID [facility] Last Admin: 02/12/19 09:22 Dose: 25 mg Mometasone Furoate/Formoterol Fumar (Dulera 200/5 Mdi*) 2 puff INH BID [facility] Last Admin: 02/12/19 07:44 Dose: 2 puff Ondansetron HCl (Zofran Inj*) 4 mg IV Q6H PRN PRN Reason: NAUSEA Oxycodone HCl (Roxycodone Tab*) 5 mg PO QID PRN PRN Reason: PAIN - MODERATE Last Admin: 02/12/19 04:39 Dose: 5 mg Pantoprazole Sodium (Protonix Tab*) 40 mg PO QAM [facility] Last Admin: 02/12/19 09:20 Dose: 40 mg Senna (Senokot 8.6 Mg Tab*) 2 tab PO BID PRN PRN Reason: CONSTIPATION Sertraline HCl (Zoloft*) 100 mg PO QAM [facility] Last Admin: 02/12/19 09:20 Dose: 100 mg Tiotropium [place] (Spiriva Respimat 2.5 Mcg) 2 puff INH DAILY [facility] Last Admin: 02/12/19 07:44 Dose: 2 puff Vital Signs - 8 hr 02/12/19 02/12/19 11:15 15:26 Temperature 97.5 F 97.4 F Pulse Rate 99 103 Respiratory 18 20 Rate Blood Pressure 100/67 125/86 (mmHg) O2 Sat by Pulse 97 100 Oximetry Oxygen Devices in Use Now: Nasal Cannula Appearance: Obese, elderly white male, laying in hospital bed, appearing comfortable and in NAD Eyes: No Scleral Icterus, - - PERRL Ears/Nose/Mouth/Throat: Mucous Membranes Moist Neck: NL Appearance and Movements; NL JVP Respiratory: Symmetrical Chest Expansion and Respiratory Effort, Clear to Auscultation, - - breathing with pursed lips Cardiovascular: RRR, - - systolic murmur Abdominal: - - abd soft, nontender, nondistended Extremities: No Edema, No Clubbing, Cyanosis Skin: No Rash or Ulcers Neurological: Alert and Oriented x 3, NL Muscle Strength and Tone Result Diagrams: 02/10/19 08:48 02/12/19 08:29 Microbiology and Other Data: Microbiology 02/06/19 09:21 Aerobic Blood Culture - Preliminary Blood Venous No Growth Day 1 Anaerobic Blood Culture - Preliminary No Growth Day 1 02/06/19 09:12 Aerobic Blood Culture - Preliminary Blood Venous No Growth Day 1 Anaerobic Blood Culture - Preliminary No Growth Day 1 02/06/19 14:45 Nasal Screen MRSA (PCR) - Final Nasal Mrsa Not Detected Assess/Plan/Problems-Billing Assessment: This is an 83 year old male with complex medical history that presents to the ED with complaints of SOB. - Patient Problems (1) Acute and chronic respiratory failure with hypoxia Current Visit: No Status: Acute Code(s): J96.21 - ACUTE AND CHRONIC RESPIRATORY FAILURE WITH HYPOXIA SNOMED Code(s): 24047728 Comment: - On 3L at home previously, requiring 4L now - Combination of CHF/fluid overload, severe aortic stenosis and COPD exac - CXR with pleural effusion, no PNA, does appear to be interstitial edema - Wean O2 as tolerated - Pulmonary toilet - Gentle diuresis - BiPAP when napping and overnight. Was frequently requesting during the day, however was not doing this today as ativan was helping prevent anxiety and feelings of "near " - continue prn ativan - Appreciate palliatve consult. Patient is now agreeable to [facility] which he previously was refusing. (2) COPD exacerbation Current Visit: No Status: Acute Priority: High Onset Date: 10/05/13 Code (s): J44.1 - CHRONIC OBSTRUCTIVE PULMONARY DISEASE W (ACUTE) EXACERBATION SNOMED Code(s): 434431967 Comment: - Pulmonary toilet, nebs - Afebrile - Completed prednisone burst - No wheezing - Attempt to wean O2 if patient allows (3) TAMICA treated with BiPAP Current Visit: Yes Status: Acute Code(s): G47.33 - OBSTRUCTIVE SLEEP APNEA ( ADULT) (PEDIATRIC) SNOMED Code(s): 54798368 Comment: - Continue bipap 07/03 with naps and overnight - Please encourage BiPAP mask off when awake during day as tolerated (4) Afib Current Visit: No Status: Acute Priority: High Code(s): I48.91 - UNSPECIFIED ATRIAL FIBRILLATION SNOMED Code(s): 35400231 Comment: - continue metoprolol 25mg BID - Continue eliquis 2.5mg BID - HR has been minimally tachycardic, though patient is not symptomatic and not hypotenesive - Given his severe , will start 0.125 mg digoxin and monitor - tele (5) CAD (coronary artery disease) Current Visit: No Status: Acute Priority: High Code(s): I25.10 - ATHSCL HEART DISEASE OF [place] CORONARY ARTERY W/O ANG PCTRS SNOMED Code(s): 72536110 Comment: - Continue ASA, BB and statin (6) Cellulitis of fifth toe of left foot Current Visit: No Status: Acute Code(s): L03.032 - CELLULITIS OF LEFT TOE SNOMED Code(s): 74806577 Comment: - s/p amputation on 01/06 - Continue doxy for 2 more weeks - Orthopedics removed opal 02/08; will need follow up with ortho outpatient at discharge (7) Hypertension Current Visit: No Status: Acute Priority: High Code(s): I10 - ESSENTIAL ( PRIMARY) HYPERTENSION SNOMED Code(s): 43331542 Comment: - Stable on lisinopril and metoprolol (8) Severe aortic stenosis Current Visit: No Status: Acute Code(s): I35.0 - NONRHEUMATIC AORTIC (VALVE ) STENOSIS SNOMED Code(s): 03793599 Comment: - Reviewed record from 2016 when patient has documented 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 - EF is preserved at 55-60% per ECHO from last month - Continue medical management - Had one dose IV lasix previously with good effect, will place on PO lasix at this time, appears euvolemic (9) Diabetes mellitus type 2 in obese Current Visit: Yes Status: Acute Code(s): E11.69 - TYPE 2 DIABETES MELLITUS WITH OTHER SPECIFIED COMPLICATION; E66.9 - OBESITY, UNSPECIFIED SNOMED Code(s) : 72405821 Comment: -A1c 6.9 in December indicating very good BG control, in fact perhaps too tight control -will d/c lantus, continue SS lispro while inpatient -could continue home victoza at discharge -has had overall good BG control though was in 300s twice today (10) DNR (do not resuscitate) Current Visit: No Status: Acute Comment: - Confirmed, MOLST updated (11) DVT prophylaxis Current Visit: No Status: Acute Code(s): EJD3592 - SNOMED Code(s): 070084622 Comment: -eliquis Status and Disposition: Pending [facility] placement. Patient has poor living conditions despite live-in aid who is patient's 2nd cousin. SW involved.
[2019-02-12] MEDS: Benzonatate CAP* 100 MG PO PRN (21:09)
[2019-02-12] MEDS: LORazepam TAB(*) 0.5 MG PO PRN (21:09)
[2019-02-12] MEDS: Digoxin TAB* 0.125 MG PO SCH (21:11)
[2019-02-13] MEDS: Mometasone/Formoter 200/5 MDI INH SCH ×2 (08:00→19:31)
[2019-02-13] MEDS: SPIRIVA Respimat* (tiotropium) 2.5 mcg/inh Inhaler INH SCH (08:00)
--- NOTE | 2019-02-13 09:16 | PN ---
Progress Note - Progress Note Date of Service: 02/13/19 SOAP: Subjective: Pt is doing well. Pain controlled. Denies F/C, CP/SOB or calf pain Objective: PE- 83 y/o WDWN M NAD LLE- dressing changed, inc c/d/i with no drainage or surrounding erythema, calf soft nT, +DF/PF ankle, NVI Vital Signs Temp Pulse Resp BP Pulse Ox 97.6 F 105 16 111/76 100 02/13/19 03:15 02/13/19 03:15 02/13/19 05:27 02/13/19 03:15 02/13/19 03:15 Laboratory Results - last 24 hr 02/12/19 02/12/19 02/12/19 11:49 16:37 20:55 POC Glucose (mg/dL) 364 H 309 H 294 H 02/13/19 07:20 POC Glucose (mg/dL) 120 H Assessment: []SP left foot partial 5th ray amp 01/06 Plan: []Continue abx and fu ortho outpt next week for wound check daily betadine wet to dry dressing to distal aspect of incision Report any drainage, erythema, pain to ortho Will Cont to monitor wound while inpatient
[2019-02-13] MEDS: Cephalexin CAP* 500 MG PO SCH ×2 (09:40→22:17)
[2019-02-13] MEDS: Finasteride TAB* 5 MG PO SCH (09:40)
[2019-02-13] MEDS: Sertraline* 100 MG TAB PO SCH (09:40)
[2019-02-13] MEDS: Cholecalciferol TAB* 1000 UNITS PO SCH (09:40)
[2019-02-13] MEDS: Pantoprazole TAB * 40 MG TAB PO SCH (09:41)
[2019-02-13] MEDS: Apixaban* 2.5 MG TAB PO SCH ×2 (09:41→22:17)
[2019-02-13] MEDS: Furosemide TAB* 40 MG PO SCH (09:41)
[2019-02-13] MEDS: Aspirin EC TAB* 81 MG TAB.EC PO SCH (09:42)
[2019-02-13] MEDS: guaiFENesin ER TAB 600 MG PO SCH ×2 (09:42→22:17)
[2019-02-13] MEDS: DOXYcycline CAP(*) 100 MG PO SCH ×2 (09:42→22:17)
[2019-02-13] MEDS: Metoprolol Tartrate TAB* 25 MG PO SCH (09:42)
[2019-02-13] MEDS: Atorvastatin* 40 MG TAB PO SCH (09:42)
[2019-02-13] MEDS: Insulin LISPRO* 1 UNITS UNIT SUBCUT SCH ×4 (09:43→21:39)
--- NOTE | 2019-02-13 12:30 | PN ---
Subjective Date of Service: 02/13/19 Interval History: No acute overnight events. Denies fevers, chills. Reports mild anxiety. Off BiPAP for breakfast and states is fine without it. Expresses desire to return home but still amenable to [facility]. Objective Active Medications: Acetaminophen (Tylenol Tab*) 650 mg PO Q6H PRN PRN Reason: MILD PAIN or TEMP > 100.4 Last Admin: 02/12/19 04:39 Dose: 650 mg Albuterol (Ventolin 2.5 Mg/3 Ml Neb.Kika*) 2.5 mg INH Q2H PRN PRN Reason: SOB/WHEEZING Last Admin: 02/08/19 08:46 Dose: 2.5 mg Apixaban (Eliquis*) 2.5 mg PO BID [facility] Last Admin: 02/13/19 09:41 Dose: 2.5 mg Aspirin (Aspirin Ec Tab*) 81 mg PO QAM [facility] Last Admin: 02/13/19 09:42 Dose: 81 mg Atorvastatin Calcium (Lipitor*) 40 mg PO DAILY [facility] Last Admin: 02/13/19 09:42 Dose: 40 mg Benzonatate (Tessalon Cap*) 100 mg PO BID PRN PRN Reason: COUGH Last Admin: 02/12/19 21:09 Dose: 100 mg Cephalexin HCl (Keflex Cap*) 500 mg PO BID [facility] Last Admin: 02/13/19 09:40 Dose: 500 mg Cholecalciferol (Vitamin D Tab*) 1,000 units PO DAILY [facility] Last Admin: 02/13/19 09:40 Dose: 1,000 units Dextrose (Dextrose 50% Vial 50 Ml*) 25 ml IV PUSH .FOR FS < 60 - SS PRN PRN Reason: FS < 60 Digoxin (Lanoxin Tab*) 0.125 mg PO 1700 [facility] Last Admin: 02/12/19 21:11 Dose: 0.125 mg Doxycycline Hyclate (Vibramycin Cap(*)) 100 mg PO BID [facility] Last Admin: 02/13/19 09:42 Dose: 100 mg Finasteride (Proscar Tab*) 5 mg PO DAILY [facility] Last Admin: 02/13/19 09:40 Dose: 5 mg Furosemide (Lasix Tab*) 40 mg PO DAILY [facility] Last Admin: 02/13/19 09:41 Dose: 40 mg Guaifenesin (Mucinex*) 1,200 mg PO BID [facility] Last Admin: 02/13/19 09:42 Dose: 1,200 mg Insulin Human Lispro (Humalog*) 0 units SUBCUT ACHS [facility]; Protocol Last Admin: 02/13/19 12:22 Dose: 3 units Lorazepam (Ativan Tab(*)) 0.5 mg PO Q4H PRN PRN Reason: ANXIETY Last Admin: 02/12/19 21:09 Dose: 0.5 mg Metoprolol Succinate (Toprol Xl Tab*) 50 mg PO BEDTIME [facility] Mometasone Furoate/Formoterol Fumar (Dulera 200/5 Mdi*) 2 puff INH BID [facility] Last Admin: 02/13/19 08:00 Dose: Not Given Ondansetron HCl (Zofran Inj*) 4 mg IV Q6H PRN PRN Reason: NAUSEA Oxycodone HCl (Roxycodone Tab*) 5 mg PO QID PRN PRN Reason: PAIN - MODERATE Last Admin: 02/12/19 04:39 Dose: 5 mg Pantoprazole Sodium (Protonix Tab*) 40 mg PO QAM [facility] Last Admin: 02/13/19 09:41 Dose: 40 mg Senna (Senokot 8.6 Mg Tab*) 2 tab PO BID PRN PRN Reason: CONSTIPATION Sertraline HCl (Zoloft*) 100 mg PO QAM [facility] Last Admin: 02/13/19 09:40 Dose: 100 mg Tiotropium [place] (Spiriva Respimat 2.5 Mcg) 2 puff INH DAILY [facility] Last Admin: 02/13/19 08:00 Dose: Not Given Vital Signs - 8 hr 02/13/19 02/13/19 02/13/19 05:27 07:15 08:00 Temperature 97.8 F Pulse Rate 102 Respiratory 16 16 18 Rate Blood Pressure 96/68 (mmHg) O2 Sat by Pulse 100 Oximetry 02/13/19 11:15 Temperature 97.1 F Pulse Rate 103 Respiratory 22 Rate Blood Pressure 104/70 (mmHg) O2 Sat by Pulse 96 Oximetry Oxygen Devices in Use Now: CPAP Appearance: elderly frail man in NAD, moderately increased WOB Ears/Nose/Mouth/Throat: Clear Oropharnyx, Mucous Membranes Moist Neck: NL Appearance and Movements; NL JVP, Trachea Midline Respiratory: - - decreased air movement but no wheeze/crackles Cardiovascular: RRR - systolic murmur Extremities: No Edema, - - L foot with new blearn bandage c/d/i, no malodor Result Diagrams: 02/10/19 08:48 02/12/19 08:29 Microbiology and Other Data: Microbiology 02/06/19 09:21 Aerobic Blood Culture - Preliminary Blood Venous No Growth Day 1 Anaerobic Blood Culture - Preliminary No Growth Day 1 02/06/19 09:12 Aerobic Blood Culture - Preliminary Blood Venous No Growth Day 1 Anaerobic Blood Culture - Preliminary No Growth Day 1 02/06/19 14:45 Nasal Screen MRSA (PCR) - Final Nasal Mrsa Not Detected Assess/Plan/Problems-Billing Assessment: This is an 83 year old male with complex medical history that presents to the ED with complaints of SOB. - Patient Problems (1) Acute and chronic respiratory failure with hypoxia Comment: - On 3L at home previously, requiring 4L now - Combination of CHF/fluid overload, severe aortic stenosis and COPD exac - CXR with pleural effusion, no PNA, does appear to be interstitial edema - Wean O2 as tolerated - Pulmonary toilet - Gentle diuresis - BiPAP when napping and overnight. Was frequently requesting during the day, however was not doing this today as ativan was helping prevent anxiety and feelings of "near " - continue prn ativan - Appreciate palliatve consult. Patient is now agreeable to [facility] which he previously was refusing. (2) Cellulitis of fifth toe of left foot Comment: s/p amputation on 01/06/2019 - clarify abx course (currently on doxy and Keflex) with ID before DC - pt was supposed to f/u after last discharge for abx course - Orthopedics removed opal 02/08; will need follow up with ortho outpatient at discharge (3) COPD exacerbation Comment: - Pulmonary toilet, nebs - cont triple-therapy inhalers - Completed prednisone burst (4) Heart failure with preserved ejection fraction Comment: Echo on 01/03/2019 showed EF of 55-60% with severe LA dilatation. - On furosemide. (5) TAMICA treated with BiPAP Current Visit: Yes Status: Acute Code(s): G47.33 - OBSTRUCTIVE SLEEP APNEA ( ADULT) (PEDIATRIC) SNOMED Code(s): 75553810 Comment: - Continue bipap / with naps and overnight - Please encourage BiPAP mask off when awake during day as tolerated (6) Afib Comment: - continue metoprolol suc 50 daily - Continue eliquis 2.5mg BID - HR has been minimally tachycardic, though patient is not symptomatic and not hypotenesive - Given his severe , started on 0.125 mg digoxin (7) Diabetes mellitus type 2 in obese Comment: A1c 6.9 in December indicating very good BG control, in fact perhaps too tight control -continue SS lispro while inpatient -could continue home victoza at discharge (8) CAD (coronary artery disease) Comment: - Continue ASA, BB and statin (9) Hypertension Comment: - Stable on metoprolol suc 50 (10) Severe aortic stenosis Comment: Dx 2017: 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 Patient has poor living conditions despite live-in aid who is patient's 2nd cousin. SW involved.
[2019-02-13] MEDS: LORazepam TAB(*) 0.5 MG PO PRN ×2 (14:01→22:17)
[2019-02-13] MEDS: Digoxin TAB* 0.125 MG PO SCH (17:44)
[2019-02-13] MEDS ORDERED: Metoprolol Succinate XL TAB* 50 MG PO SCH (21:00)
[2019-02-13] MEDS ORDERED: Metoprolol Succinate XL TAB* 25 MG PO ONE (21:45)
[2019-02-13] MEDS: Benzonatate CAP* 100 MG PO PRN (22:17)
[2019-02-14] MEDS: SPIRIVA Respimat* (tiotropium) 2.5 mcg/inh Inhaler INH SCH (07:53)
[2019-02-14] MEDS: Mometasone/Formoter 200/5 MDI INH SCH (07:53)
--- NOTE | 2019-02-14 09:14 | PN ---
Subjective Date of Service: 02/14/19 Interval History: No acute events overnight. Pt did remove CPAP a couple times while sleeping, with resultant hypoxia, with subsequent improvement when replaced. Pt denies SOB , wheeze, pain. Objective Active Medications: Acetaminophen (Tylenol Tab*) 650 mg PO Q6H PRN PRN Reason: MILD PAIN or TEMP > 100.4 Last Admin: 02/12/19 04:39 Dose: 650 mg Albuterol (Ventolin 2.5 Mg/3 Ml Neb.Kika*) 2.5 mg INH Q2H PRN PRN Reason: SOB/WHEEZING Last Admin: 02/08/19 08:46 Dose: 2.5 mg Apixaban (Eliquis*) 2.5 mg PO BID [facility] Last Admin: 02/13/19 22:17 Dose: 2.5 mg Aspirin (Aspirin Ec Tab*) 81 mg PO QAM [facility] Last Admin: 02/13/19 09:42 Dose: 81 mg Atorvastatin Calcium (Lipitor*) 40 mg PO DAILY [facility] Last Admin: 02/13/19 09:42 Dose: 40 mg Benzonatate (Tessalon Cap*) 100 mg PO BID PRN PRN Reason: COUGH Last Admin: 02/13/19 22:17 Dose: 100 mg Cephalexin HCl (Keflex Cap*) 500 mg PO BID [facility] Last Admin: 02/13/19 22:17 Dose: 500 mg Cholecalciferol (Vitamin D Tab*) 1,000 units PO DAILY [facility] Last Admin: 02/13/19 09:40 Dose: 1,000 units Dextrose (Dextrose 50% Vial 50 Ml*) 25 ml IV PUSH .FOR FS < 60 - SS PRN PRN Reason: FS < 60 Digoxin (Lanoxin Tab*) 0.125 mg PO 1700 [facility] Last Admin: 02/13/19 17:44 Dose: 0.125 mg Doxycycline Hyclate (Vibramycin Cap(*)) 100 mg PO BID [facility] Last Admin: 02/13/19 22:17 Dose: 100 mg Finasteride (Proscar Tab*) 5 mg PO DAILY [facility] Last Admin: 02/13/19 09:40 Dose: 5 mg Furosemide (Lasix Tab*) 40 mg PO DAILY [facility] Last Admin: 02/13/19 09:41 Dose: 40 mg Guaifenesin (Mucinex*) 1,200 mg PO BID [facility] Last Admin: 02/13/19 22:17 Dose: 1,200 mg Insulin Human Lispro (Humalog*) 0 units SUBCUT [facility]; Protocol Last Admin: 02/13/19 21:39 Dose: Not Given Lorazepam (Ativan Tab(*)) 0.5 mg PO Q4H PRN PRN Reason: ANXIETY Last Admin: 02/13/19 22:17 Dose: 0.5 mg Metoprolol Succinate (Toprol Xl Tab*) 50 mg PO BEDTIME [facility] Mometasone Furoate/Formoterol Fumar (Dulera 200/5 Mdi*) 2 puff INH BID [facility] Last Admin: 02/14/19 07:53 Dose: Not Given Ondansetron HCl (Zofran Inj*) 4 mg IV Q6H PRN PRN Reason: NAUSEA Pantoprazole Sodium (Protonix Tab*) 40 mg PO QAM [facility] Last Admin: 02/13/19 09:41 Dose: 40 mg Senna (Senokot 8.6 Mg Tab*) 2 tab PO BID PRN PRN Reason: CONSTIPATION Sertraline HCl (Zoloft*) 100 mg PO QAM [facility] Last Admin: 02/13/19 09:40 Dose: 100 mg Tiotropium [place] (Spiriva Respimat 2.5 Mcg) 2 puff INH DAILY [facility] Last Admin: 02/14/19 07:53 Dose: Not Given Vital Signs - 8 hr 02/14/19 03:07 Temperature 97.8 F Pulse Rate 104 Respiratory 18 Rate Blood Pressure 100/71 (mmHg) O2 Sat by Pulse 100 Oximetry Oxygen Devices in Use Now: CPAP Appearance: chronically ill appearing frail man in NAD, resting with CPAP on, responds to questions over mask Eyes: No Scleral Icterus Neck: NL Appearance and Movements; NL JVP, Trachea Midline Respiratory: Clear to Auscultation - but decreased air movement b/l Cardiovascular: RRR, - - systolic murmur Abdominal: NL Sounds; No Tenderness; No Distention, No Hepatosplenomegaly Extremities: No Edema Result Diagrams: 02/10/19 08:48 02/12/19 08:29 Microbiology and Other Data: Microbiology 02/06/19 09:21 Aerobic Blood Culture - Preliminary Blood Venous No Growth Day 1 Anaerobic Blood Culture - Preliminary No Growth Day 1 02/06/19 09:12 Aerobic Blood Culture - Preliminary Blood Venous No Growth Day 1 Anaerobic Blood Culture - Preliminary No Growth Day 1 02/06/19 14:45 Nasal Screen MRSA (PCR) - Final Nasal Mrsa Not Detected Assess/Plan/Problems-Billing Assessment: This is an 83 year old male with complex medical history that presents to the ED with complaints of SOB. - Patient Problems (1) Acute and chronic respiratory failure with hypoxia Comment: - On 3L at home previously, requiring more now - Combination of CHF and fluid overload from severe aortic stenosis, and COPD exac - CXR with pleural effusion, no PNA, does appear to be interstitial edema - Wean O2 as tolerated - Pulmonary toilet - Gentle diuresis - BiPAP when napping and overnight. Was frequently requesting during the day, however was not doing this today as ativan was helping prevent anxiety and feelings of "near " - continue prn ativan - Appreciate palliatve consult. Patient is now agreeable to [facility] which he previously was refusing. (2) Cellulitis of fifth toe of left foot Comment: s/p amputation on 01/06/2019 - clarify abx course (currently on doxy and Keflex) with ID before DC - pt was supposed to f/u after last discharge for abx course - Orthopedics removed opal 02/08; will need follow up with ortho outpatient at discharge (3) COPD exacerbation Comment: - Pulmonary toilet, nebs - cont triple-therapy inhalers - Completed prednisone burst (4) Heart failure with preserved ejection fraction Comment: Echo on 01/03/2019 showed EF of 55-60% with severe LA dilatation. - On furosemide. (5) TAMICA treated with BiPAP Current Visit: Yes Status: Acute Code(s): G47.33 - OBSTRUCTIVE SLEEP APNEA ( ADULT) (PEDIATRIC) SNOMED Code(s): 87733645 Comment: - Continue bipap 16/12 with naps and overnight - Please encourage BiPAP mask off when awake during day as tolerated (6) Afib Comment: - continue metoprolol suc 50 daily - Continue eliquis 2.5mg BID - HR has been minimally tachycardic, though patient is not symptomatic and not hypotenesive - Given his severe , started on 0.125 mg digoxin (7) Diabetes mellitus type 2 in obese Comment: A1c 6.9 in December indicating very good BG control, in fact perhaps too tight control -continue SS lispro while inpatient -could continue home victoza at discharge (8) CAD (coronary artery disease) Comment: - Continue ASA, BB and statin (9) Hypertension Comment: - Stable on metoprolol suc 50 (10) Severe aortic stenosis Comment: Dx 2017: 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 Patient has poor living conditions despite live-in aid who is patient's 2nd cousin. SW involved.
[2019-02-14] MEDS: Insulin LISPRO* 1 UNITS UNIT SUBCUT SCH ×4 (09:37→21:31)
[2019-02-14] MEDS: DOXYcycline CAP(*) 100 MG PO SCH ×2 (09:39→21:32)
[2019-02-14] MEDS: Pantoprazole TAB * 40 MG TAB PO SCH (09:39)
[2019-02-14] MEDS: Furosemide TAB* 40 MG PO SCH (09:39)
[2019-02-14] MEDS: Finasteride TAB* 5 MG PO SCH (09:39)
[2019-02-14] MEDS: Aspirin EC TAB* 81 MG TAB.EC PO SCH (09:39)
[2019-02-14] MEDS: Sertraline* 100 MG TAB PO SCH (09:39)
[2019-02-14] MEDS: guaiFENesin ER TAB 600 MG PO SCH ×2 (09:39→21:32)
[2019-02-14] MEDS: Atorvastatin* 40 MG TAB PO SCH (09:39)
[2019-02-14] MEDS: Cephalexin CAP* 500 MG PO SCH ×2 (09:39→21:32)
[2019-02-14] MEDS: Cholecalciferol TAB* 1000 UNITS PO SCH (09:39)
[2019-02-14] MEDS: Apixaban* 2.5 MG TAB PO SCH ×2 (09:39→21:33)
--- NOTE | 2019-02-14 16:27 | PN ---
Progress Note - Progress Note Date of Service: 02/14/19 SOAP: Subjective: []Pt seen at bedside. No LLE pain, fever or chills. Objective: []Gen: NAD LLE: incision healing well, no erythema or discharge, nontender. Assessment: []SP left foot partial 5th ray amp 01/06 Plan: []Continue abx and fu ortho outpt next week for wound check daily dry dressing Report any drainage, erythema, pain to ortho Vital Signs Temp 97.3 F 02/14/19 11:15 Pulse 102 02/14/19 11:15 Resp 16 02/14/19 11:15 BP 124/71 02/14/19 11:15 Pulse Ox 99 02/14/19 11:15 Intake & Output 02/13/19 02/14/19 02/14/19 18:59 06:59 18:59 Intake Total 720 0 480 Balance 720 0 480 Weight 190 lb 14.4 oz Intake: Oral 720 0 480 Other: Estimated Void Large # Voids 2 2 Laboratory Last Values WBC 12.2 10^3/uL (3.5-10.8) H 02/10/19 08:48 RBC 4.37 10^6 /uL (4.18-5.48) 02/10/19 08:48 Hgb 11.7 g/dL (14.0-18.0) L 02/10/19 08:48 Hct 37 % (42-52) L 02/10/19 08:48 MCV 84 fL (80-94) 02/10/19 08:48 MCH 27 pg (27-31) 02/10/19 08:48 MCHC 32 g/dL (31-36) 02/10/19 08:48 RDW 18 % (10-15) H 02/10/19 08:48 Plt Count 202 10^3/uL (150-450) 02/10/19 08:48 MPV 8.5 fL (7.4-10.4) 02/10/19 08:48 Neut % (Auto) 81.9 % 02/10/19 08:48 Lymph % (Auto) 8.8 % 02/10/19 08:48 [place] % (Auto) 8.8 % 02/10/19 08:48 Eos % (Auto) 0.0 % 02/10/19 08:48 Baso % (Auto) 0.5 % 02/10/19 08:48 Absolute Neuts (auto) 10.0 10^3/ul (1.5-7.7) H 02/10/19 08:48 Absolute Lymphs (auto) 1.1 10^3/ul (1.0-4.8) 02/10/19 08:48 Absolute Monos (auto) 1.1 10^3/ul (0-0.8) H 02/10/19 08:48 Absolute Eos (auto) 0.0 10^3/ul (0-0.6) 02/10/19 08:48 Absolute Basos (auto) 0.1 10^3/ul (0-0.2) 02/10/19 08:48 Absolute Nucleated RBC 0.0 10^3/ul 02/10/19 08:48 Nucleated RBC % 0.0 02/10/19 08:48 Patient Temperature Not Reportable 02/06/19 09:15 ABG pH 7.44 (7.35-7.45) 02/06/19 09:15 ABG pH (Temp Correct) Not Reportable 02/06/19 09:15 ABG pCO2 37 mmHg (35-45) 02/06/19 09:15 ABG pCO2 (Temp Corrct Not Reportable 02/06/19 09:15 ABG pO2 158 mmHg (80-100) H 02/06/19 09:15 ABG pO2 (Temp Correct Not Reportable 02/06/19 09:15 ABG HCO3 25.8 mmol/L (19-31) 02/06/19 09:15 ABG O2 Saturation 98.1 % (94.0-98.0) H 02/06/19 09:15 ABG Base Excess 1.1 mmol/L (-2.0-2.0) 02/06/19 09:15 Respiration Rate Not Reportable 02/06/19 09:15 O2 Delivery Device oxymask 02/06/19 09:15 Ventilator Type Not Reportable 02/06/19 09:15 Vent Mode Not Reportable 02/06/19 09:15 FiO2 15 02/06/19 09:15 Inspiratory Time Not Reportable 02/06/19 09:15 PEEP Not Reportable 02/06/19 09:15 Pressure Support Not Reportable 02/06/19 09:15 Pressure Control Not Reportable 02/06/19 09:15 EPAP Not Reportable 02/06/19 09:15 IPAP Not Reportable 02/06/19 09:15 BiPAP Not Reportable 02/06/19 09:15 Sodium 141 mmol/L (135-145) 02/12/19 08:29 Potassium 4.1 mmol/L (3.5-5.0) 02/12/19 08:29 Chloride 109 mmol/L (101-111) 02/12/19 08:29 Carbon Dioxide 27 mmol/L (22-32) 02/12/19 08:29 Anion Gap 5 mmol/L (2-11) 02/12/19 08:29 BUN 64 mg/dL (6-24) H 02/12/19 08:29 Creatinine 1.51 mg/dL (0.67-1.17) H 02/12/19 08:29 Est GFR ( Amer) 53.9 (>60) 02/12/19 08:29 Est GFR (Non-Af Amer) 44.6 (>60) 02/12/19 08:29 BUN/Creatinine Ratio 42.4 (8-20) H 02/12/19 08:29 Glucose 89 mg/dL (70-100) 02/12/19 08:29 POC Glucose (mg/dL) 222 mg/dL (70-100) H 02/14/19 08:36 Glucose Meter Confirm 235 mg/dL (70-100) H 02/14/19 12:24 Lactic Acid 1.7 mmol/L (0.5-2.0) 02/06/19 09:12 Calcium 8.8 mg/dL (8.6-10.3) 02/12/19 08:29 Magnesium 1.8 mg/dL (1.9-2.7) L 02/07/19 06:29 Total Bilirubin 0.90 mg/dL (0.2-1.0) 02/06/19 09:12 AST 21 U/L (13-39) 02/06/19 09:12 ALT 17 U/L (7-52) 02/06/19 09:12 Alkaline Phosphatase 133 U/L (34-104) H 02/06/19 09:12 Troponin I 0.04 ng/mL (<0.04) H* 02/06/19 09:12 C-Reactive Protein 21.63 mg/L (<8.01) H 02/06/19 09:12 B-Natriuretic Peptide 742 pg/mL (<=100) H 02/06/19 09:12 Total Protein 6.5 g/dL (6.4-8.9) 02/06/19 09:12 Albumin 3.5 g/dL (3.2-5.2) 02/06/19 09:12 Globulin 3.0 g/dL (2-4) 02/06/19 09:12 Albumin/Globulin Ratio 1.2 (1-3) 02/06/19 09:12
[2019-02-14] MEDS: Digoxin TAB* 0.125 MG PO SCH (17:34)
[2019-02-14] MEDS: Metoprolol Succinate XL TAB* 50 MG PO SCH (21:32)
[2019-02-15] MEDS: Mometasone/Formoter 200/5 MDI INH SCH ×3 (00:06→19:52)
[2019-02-15] MEDS: LORazepam TAB(*) 0.5 MG PO PRN ×2 (01:01→09:03)
--- NOTE | 2019-02-15 07:21 | PN ---
Subjective Date of Service: 02/15/19 Interval History: No acute events overnight. Pt denies pain, anxiety or SOB. He requests a pair of pants. He wanted to make it home by Thanksgiving but understands that is unlikely, as the holiday is now 2 days away. Objective Active Medications: Acetaminophen (Tylenol Tab*) 650 mg PO Q6H PRN PRN Reason: MILD PAIN or TEMP > 100.4 Last Admin: 02/12/19 04:39 Dose: 650 mg Albuterol (Ventolin 2.5 Mg/3 Ml Neb.Kika*) 2.5 mg INH Q2H PRN PRN Reason: SOB/WHEEZING Last Admin: 02/08/19 08:46 Dose: 2.5 mg Apixaban (Eliquis*) 2.5 mg PO BID [facility] Last Admin: 02/14/19 21:33 Dose: 2.5 mg Aspirin (Aspirin Ec Tab*) 81 mg PO QAM [facility] Last Admin: 02/14/19 09:39 Dose: 81 mg Atorvastatin Calcium (Lipitor*) 40 mg PO DAILY [facility] Last Admin: 02/14/19 09:39 Dose: 40 mg Benzonatate (Tessalon Cap*) 100 mg PO BID PRN PRN Reason: COUGH Last Admin: 02/13/19 22:17 Dose: 100 mg Cephalexin HCl (Keflex Cap*) 500 mg PO BID [facility] Last Admin: 02/14/19 21:32 Dose: 500 mg Cholecalciferol (Vitamin D Tab*) 1,000 units PO DAILY [facility] Last Admin: 02/14/19 09:39 Dose: 1,000 units Dextrose (Dextrose 50% Vial 50 Ml*) 25 ml IV PUSH .FOR FS < 60 - SS PRN PRN Reason: FS < 60 Digoxin (Lanoxin Tab*) 0.125 mg PO 1700 [facility] Last Admin: 02/14/19 17:34 Dose: 0.125 mg Doxycycline Hyclate (Vibramycin Cap(*)) 100 mg PO BID [facility] Last Admin: 02/14/19 21:32 Dose: 100 mg Finasteride (Proscar Tab*) 5 mg PO DAILY [facility] Last Admin: 02/14/19 09:39 Dose: 5 mg Furosemide (Lasix Tab*) 40 mg PO DAILY [facility] Last Admin: 02/14/19 09:39 Dose: 40 mg Guaifenesin (Mucinex*) 1,200 mg PO BID [facility] Last Admin: 02/14/19 21:32 Dose: 1,200 mg Insulin Human Lispro (Humalog*) 0 units SUBCUT ACHS [facility]; Protocol Last Admin: 02/14/19 21:31 Dose: 9 units Lorazepam (Ativan Tab(*)) 0.5 mg PO Q4H PRN PRN Reason: ANXIETY Last Admin: 02/15/19 01:01 Dose: 0.5 mg Metoprolol Succinate (Toprol Xl Tab*) 50 mg PO BEDTIME [facility] Last Admin: 02/14/19 21:32 Dose: 50 mg Mometasone Furoate/Formoterol Fumar (Dulera 200/5 Mdi*) 2 puff INH BID [facility] Last Admin: 02/15/19 00:06 Dose: Not Given Ondansetron HCl (Zofran Inj*) 4 mg IV Q6H PRN PRN Reason: NAUSEA Pantoprazole Sodium (Protonix Tab*) 40 mg PO QAM [facility] Last Admin: 02/14/19 09:39 Dose: 40 mg Senna (Senokot 8.6 Mg Tab*) 2 tab PO BID PRN PRN Reason: CONSTIPATION Sertraline HCl (Zoloft*) 100 mg PO QAM [facility] Last Admin: 02/14/19 09:39 Dose: 100 mg Tiotropium [place] (Spiriva Respimat 2.5 Mcg) 2 puff INH DAILY [facility] Last Admin: 02/14/19 07:53 Dose: Not Given Vital Signs - 8 hr 02/14/19 02/15/19 02/15/19 23:38 01:01 03:54 Temperature 97.8 F 98.6 F Pulse Rate 104 104 Respiratory 19 18 20 Rate Blood Pressure 104/68 120/84 (mmHg) O2 Sat by Pulse 96 100 Oximetry 02/15/19 04:29 Temperature Pulse Rate Respiratory 20 Rate Blood Pressure (mmHg) O2 Sat by Pulse Oximetry Oxygen Devices in Use Now: Nasal Cannula, BiPAP Appearance: chronically ill appearing, frail elderly man in NAD; no increased WOB Eyes: No Scleral Icterus Ears/Nose/Mouth/Throat: Clear Oropharnyx, Mucous Membranes Moist Respiratory: Symmetrical Chest Expansion and Respiratory Effort, Clear to Auscultation Cardiovascular: NL Sounds; No Murmurs; No JVD, RRR Abdominal: NL Sounds; No Tenderness; No Distention, No Hepatosplenomegaly Extremities: No Edema, - - L foot with dressing c/d/i Result Diagrams: 02/10/19 08:48 02/12/19 08:29 Microbiology and Other Data: Microbiology 02/06/19 09:21 Aerobic Blood Culture - Preliminary Blood Venous No Growth Day 1 Anaerobic Blood Culture - Preliminary No Growth Day 1 02/06/19 09:12 Aerobic Blood Culture - Preliminary Blood Venous No Growth Day 1 Anaerobic Blood Culture - Preliminary No Growth Day 1 02/06/19 14:45 Nasal Screen MRSA (PCR) - Final Nasal Mrsa Not Detected Assess/Plan/Problems-Billing Assessment: This is an 83 year old male with complex medical history that presents to the ED with complaints of SOB. - Patient Problems (1) Acute and chronic respiratory failure with hypoxia Comment: - On 3L at home previously, requiring more now - Combination of CHF and fluid overload from severe aortic stenosis, and COPD exac - CXR with pleural effusion, no PNA, does appear to be interstitial edema - Wean O2 as tolerated - Pulmonary toilet - Gentle diuresis - BiPAP when napping and overnight. Was frequently requesting during the day, however was not doing this today as ativan was helping prevent anxiety and feelings of "near " - continue prn ativan - Appreciate palliatve consult. Patient is now agreeable to [facility] which he previously was refusing. (2) Cellulitis of fifth toe of left foot Comment: s/p amputation on 01/06/2019 - clarify abx course (currently on doxy and Keflex) with ID before DC - pt was supposed to f/u after last discharge for abx course - Orthopedics removed opal 02/08; will need follow up with ortho outpatient at discharge (3) COPD exacerbation Comment: - Pulmonary toilet, nebs - cont triple-therapy inhalers - Completed prednisone burst (4) Heart failure with preserved ejection fraction Comment: Echo on 01/03/2019 showed EF of 55-60% with severe LA dilatation. - On furosemide. (5) TAMICA treated with BiPAP Current Visit: Yes Status: Acute Code(s): G47.33 - OBSTRUCTIVE SLEEP APNEA ( ADULT) (PEDIATRIC) SNOMED Code(s): 74756998 Comment: - Continue bipap / with naps and overnight - Please encourage BiPAP mask off when awake during day as tolerated (6) Afib Comment: - continue metoprolol suc 50 daily - Continue eliquis 2.5mg BID - HR has been minimally tachycardic, though patient is not symptomatic and not hypotenesive - Given his severe , started on 0.125 mg digoxin (7) Diabetes mellitus type 2 in obese Comment: A1c 6.9 in December indicating very good BG control, in fact perhaps too tight control -continue SS lispro while inpatient -could continue home victoza at discharge (8) CAD (coronary artery disease) Comment: - Continue ASA, BB and statin (9) Hypertension Comment: - Stable on metoprolol suc 50 (10) Severe aortic stenosis Comment: Dx 2017: 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 Patient has poor living conditions despite live-in aid who is patient's 2nd cousin. SW involved.
[2019-02-15] MEDS: SPIRIVA Respimat* (tiotropium) 2.5 mcg/inh Inhaler INH SCH (08:37)
[2019-02-15] MEDS: Insulin LISPRO* 1 UNITS UNIT SUBCUT SCH ×4 (09:02→20:59)
[2019-02-15] MEDS: DOXYcycline CAP(*) 100 MG PO SCH ×2 (09:02→20:59)
[2019-02-15] MEDS: Furosemide TAB* 40 MG PO SCH (09:03)
[2019-02-15] MEDS: Finasteride TAB* 5 MG PO SCH (09:03)
[2019-02-15] MEDS: Sertraline* 100 MG TAB PO SCH (09:03)
[2019-02-15] MEDS: guaiFENesin ER TAB 600 MG PO SCH ×2 (09:03→20:58)
[2019-02-15] MEDS: Apixaban* 2.5 MG TAB PO SCH ×2 (09:03→20:59)
[2019-02-15] MEDS: Cholecalciferol TAB* 1000 UNITS PO SCH (09:03)
[2019-02-15] MEDS: Atorvastatin* 40 MG TAB PO SCH (09:03)
[2019-02-15] MEDS: Pantoprazole TAB * 40 MG TAB PO SCH (09:03)
[2019-02-15] MEDS: Aspirin EC TAB* 81 MG TAB.EC PO SCH (09:03)
[2019-02-15] MEDS: Cephalexin CAP* 500 MG PO SCH ×2 (09:03→20:59)
--- NOTE | 2019-02-15 13:34 | DS ---
CC: Dr. Jeremiah Ruano; Dr. Mary Mayes; Dr. Carlos Reynolds DISCHARGE SUMMARY: DATE OF ADMISSION: 02/06/19 DATE OF DISCHARGE: 02/15/19 PRIMARY CARE PROVIDER: Dr. Jeermiah Ruano. PRIMARY DIAGNOSES: 1. Acute on chronic hypoxic respiratory failure. 2. Chronic obstructive pulmonary disease exacerbation. 3. Heart failure exacerbation. 4. Severe aortic stenosis. 5. Chronic osteomyelitis, status post recent amputation of the left fifth toe. SECONDARY DIAGNOSES: 1. Hypertension. 2. Diabetes. 4. Chronic kidney disease. 5. Atrial fibrillation, on Eliquis. 6. Depression. 7. History of cerebrovascular accident. 8. History of coronary artery disease, status post coronary artery bypass grafting. CONSULTATIONS: 1. Dr. Mary Mayes of Palliative Care. 2. Dr. Carlos Reynolds of Orthopedic Surgery. PROCEDURE: Removal of sutures on 02/08/19 placed on 01/06/19 after left foot partial fifth ray amputation. DISCHARGE MEDICATIONS: 1. Doxycycline 100 mg twice a day. 2. Cephalexin 500 mg twice a day. 3. Aspirin 81 mg daily. 4. Atorvastatin 40 mg daily. 5. Apixaban 2.5 mg twice a day. 6. Dulera 2 puffs twice a day. 7. Albuterol inhaler 2 puffs every 4 hours as needed for shortness of breath. 8. Lorazepam 0.5 mg every 4 hours as needed for anxiety or dyspnea. 9. Furosemide 40 mg PO daily. 10. Digoxin 0.125 mg daily. 11. Metoprolol succinate 50 mg at bedtime. 12. Finasteride 5 mg daily. 13. Insulin glargine 20 units nightly. 14. Liraglutide 1.2 mg subcutaneously daily. 15. Omeprazole 20 mg daily. 16. Sertraline 100 mg daily. 17. Guaifenesin 5 mL every 4 hours as needed for cough. 18. Sennosides 2 tablets twice a day as needed for constipation. 19. Vitamin D 1000 units daily. 20. Celluvisc 1% ophthalmic drops to both eyes daily as needed for dry eyes. 21. Debrox drops in both ears twice a day as needed for ear wax. 22. Tylenol 650 p.o. every 6 hours as needed for pain. HISTORY OF PRESENT ILLNESS: Mr. Escamilla is an 83-year-old man with COPD, on 4 L home oxygen; severe aortic stenosis; TAMICA, on BiPAP; heart failure, preserved ejection fraction; paroxysmal atrial fibrillation, on apixaban, who presents to the emergency department for shortness of breath. Of note, the patient recently had an amputation last month of his left fifth toe for chronic osteomyelitis. After discharge, he began to experience shortness of breath with wheezing, subjective fevers and cough productive of white sputum consistent with prior episodes of COPD exacerbation. The patient denies changes to his meds. He did not have sick contacts. He comes to the hospital daily for lunch and dinner with his caregiver and cousin. The patient has had significant weight loss over the last several months and is generally chronically short of breath, but it has acutely worsened in the last 3 days. The patient denies chest pain, recent immobilization, or missed doses of medications. HOSPITAL COURSE: In the emergency room, the patient was noted to have increased oxygen requirements to 5 L nasal cannula. The patient was without signs concerning for pneumonia, so he was admitted for treatment for COPD exacerbation. As the patient appeared to be slightly fatigued from tachypnea, he was placed in the ICU for close monitoring as well as to receive Vapotherm as needed. Given soft blood pressures, the patient's lisinopril was held throughout admission and his blood pressures remained at goal. In the ICU, the patient did have increased work of breathing; however, he did not require Vapotherm. He was able to maintain appropriate oxygen saturation on 4 to 5 L nasal cannula. He was gently diuresed throughout admission and it was thought that his heart failure with preserved ejection fraction and severe aortic stenosis could have been contributing to his worsened hypoxia. The patient was continued on BiPAP each night; however, he frequently would ask for BiPAP during the day as he would get incredibly anxious and short of breath intermittently. The patient would only use BiPAP throughout the day if he was napping, but otherwise did maintain his oxygen saturation off of BiPAP when he was awake. Given his significant chronic respiratory illness, increasing oxygen requirements, and likely poor prognosis, Palliative Care consult was called to see the patient, which they did on 02/10/19. It was noted that the patient has had 7 ER visits and 4 hospitalizations in the last year. Dr. Mayes of Palliative Care had a long discussion with the patient about his goals of care. The patient did complete a MOLST form requesting DNR/DNI status without feeding tube, but was amenable to trials of noninvasive ventilation. After this consult, the patient also was amenable to rehab placement with ultimate goal to reside at home, but did acknowledge that his health is continuing to decline and may not allow this. He was amenable to [facility] referral if he is eventually discharged home. Throughout the remainder of hospitalization , the patient did not have significant changes to his care. He continued to remain afebrile and without other infectious signs and symptoms, without changes to his antibiotics for chronic osteo. ID recommended 1 more week of doxycycline and cephalexin after discharge, with last day of antibiotics to be given on 02/20/19. Orthopedic Surgery also followed with the patient for wound checks and dressing changes and they also recommended to follow up in 1 week after discharge. PERTINENT STUDIES AND LABS: CBC notable for leukocytosis after steroids. Hemoglobin 11.7 which is the patient's baseline with MCV 84. Blood gas on presentation with CO2 not reportable and pH 7.44. BMP notable for creatinine 1.51, which is around the patient's baseline. Hemoglobin A1c on 12/30/18 was 6.9%. TSH 4.46. Chest x-ray on admission with persistent density obscuring the right diaphragm, which is at least partially due to persistent elevation of the hemidiaphragm with slight blunting of the posterior costophrenic angle. DISCHARGE PLAN: The patient will be discharged to [facility] for short-term rehab and he should be discharged with [facility] program if he is to go home. He should continue BiPAP while sleeping for history of TAMICA and severe COPD. He should follow up with Orthopedic Surgery 1 week after discharge given amputation of fifth toe last month for chronic osteomyelitis. He should continue doxycycline and cephalexin for 1 more week with last day on 02/20/19. He should continue to have ongoing monitoring of his weight to monitor for fluid retention and have his furosemide adjusted as needed. He should also continue to have his blood pressure checked as his lisinopril was discontinued during hospital admission. He should also continue to have his blood glucose monitored as his insulin requirements decreased during hospitalization and he was discharged on less insulin than his prior home dose. The patient was educated on return precautions, which include but are not limited to fevers or worsening shortness of breath. He should eat a healthy carb controlled diet, low in salt and resume activity as tolerated per rehab team. DISPOSITION: [facility]. CONDITION: Improved. TIME SPENT: Approximately 60 minutes was spent on discharge of this patient, more than half of which was spent with care coordination at bedside for interview and exam. [id number]/[facility] #: [id number] [place]
--- NOTE | 2019-02-15 13:37 | PN ---
Progress Note - Progress Note Date of Service: 02/15/19 SOAP: Subjective: []Pt seen at bedside. No LLE pain and no complaints. Objective: []Gen: NAD LLE: incision healing well, no erythema or discharge, nontender. Assessment: []SP left foot partial 5th ray amp 01/06 Plan: []Continue abx and fu ortho outpt next week for wound check daily dry dressing Report any drainage, erythema, pain to ortho Temp Pulse Resp BP Pulse Ox 98.5 F 104 16 116/77 92 02/15/19 08:22 02/15/19 08:43 02/15/19 13:35 02/15/19 08:22 02/15/19 08:43
[2019-02-15] MEDS: Digoxin TAB* 0.125 MG PO SCH (19:52)
[2019-02-15] MEDS: Metoprolol Succinate XL TAB* 50 MG PO SCH (20:59)
[2019-02-16] MEDS: Mometasone/Formoter 200/5 MDI INH SCH (08:02)
[2019-02-16] MEDS: SPIRIVA Respimat* (tiotropium) 2.5 mcg/inh Inhaler INH SCH (08:03)
--- NOTE | 2019-02-16 08:12 | DS ---
DISCHARGE SUMMARY: DATE OF ADMISSION: DATE OF DISCHARGE: ADDENDUM: Updated date of discharge on 02/16/19. CONDITION: Stable. HOSPITAL COURSE: [facility] was unable to get a BiPAP machine on planned day of discharge, which was yesterday. They have one today and the patient is stable for discharge to short-term rehab. [id number]/[facility] #: [id number] MTDD
[2019-02-16] MEDS: Insulin LISPRO* 1 UNITS UNIT SUBCUT SCH ×2 (09:51→13:28)
[2019-02-16] MEDS: Cephalexin CAP* 500 MG PO SCH (09:52)
[2019-02-16] MEDS: Atorvastatin* 40 MG TAB PO SCH (09:52)
[2019-02-16] MEDS: Apixaban* 2.5 MG TAB PO SCH (09:52)
[2019-02-16] MEDS: Aspirin EC TAB* 81 MG TAB.EC PO SCH (09:52)
[2019-02-16] MEDS: Cholecalciferol TAB* 1000 UNITS PO SCH (09:53)
[2019-02-16] MEDS: Furosemide TAB* 40 MG PO SCH (09:53)
[2019-02-16] MEDS: DOXYcycline CAP(*) 100 MG PO SCH (09:53)
[2019-02-16] MEDS: Finasteride TAB* 5 MG PO SCH (09:53)
[2019-02-16] MEDS: Pantoprazole TAB * 40 MG TAB PO SCH (09:53)
[2019-02-16] MEDS: guaiFENesin ER TAB 600 MG PO SCH (09:53)
[2019-02-16] MEDS: Sertraline* 100 MG TAB PO SCH (09:54)
--- NOTE | 2019-02-16 11:12 | DS ---
DISCHARGE SUMMARY: ADDENDUM: ADDITIONAL MEDICATION: 23. Tiotropium 1 puff daily. [id number]/[facility] #: [id number]
[2019-02-16 17:53] VITALS: BP 97/63
== END 2019-02-16 17:03 | DRG 190 ==
LOC: ED 08:48 → ICU 13:25 → MEDTELE 02-07 10:14
PROVIDERS: ADMIT Internal Medicine; ATTEND Internal Medicine
PROC: 8E0YXY8 Suture Removal from Lower Extremity (ICD-10-PCS; principal; 2019-02-08)
DX: J44.1 Chronic obstructive pulmonary disease with (acute) exacerbation (principal); J96.21 Acute and chronic respiratory failure with hypoxia; I50.33 Acute on chronic diastolic (congestive) heart failure; I13.0 Hypertensive heart and chronic kidney disease with heart failure and stage 1 through stage 4 chronic kidney disease, or unspecified chronic kidney disease; M86.672 Other chronic osteomyelitis, left ankle and foot; E66.2 Morbid (severe) obesity with alveolar hypoventilation; I35.0 Nonrheumatic aortic (valve) stenosis; I48.0 Paroxysmal atrial fibrillation; I25.10 Atherosclerotic heart disease of native coronary artery without angina pectoris; F32.9 Major depressive disorder, single episode, unspecified; E11.22 Type 2 diabetes mellitus with diabetic chronic kidney disease; N18.9 Chronic kidney disease, unspecified; E11.69 Type 2 diabetes mellitus with other specified complication; Z66 Do not resuscitate; R63.4 Abnormal weight loss; E78.00 Pure hypercholesterolemia, unspecified; K21.9 Gastro-esophageal reflux disease without esophagitis; N40.0 Benign prostatic hyperplasia without lower urinary tract symptoms; M19.90 Unspecified osteoarthritis, unspecified site; E11.36 Type 2 diabetes mellitus with diabetic cataract; F41.9 Anxiety disorder, unspecified; F43.10 Post-traumatic stress disorder, unspecified; L03.032 Cellulitis of left toe; Z95.1 Presence of aortocoronary bypass graft; Z89.422 Acquired absence of other left toe(s); Z86.73 Personal history of transient ischemic attack (TIA), and cerebral infarction without residual deficits; Z99.81 Dependence on supplemental oxygen; Z28.21 Immunization not carried out because of patient refusal; Z79.82 Long term (current) use of aspirin; Z79.01 Long term (current) use of anticoagulants; Z79.899 Other long term (current) drug therapy; Z79.4 Long term (current) use of insulin; Z85.828 Personal history of other malignant neoplasm of skin; Z68.32 Body mass index [BMI] 32.0-32.9, adult; Z88.1 Allergy status to other antibiotic agents; Z88.8 Allergy status to other drugs, medicaments and biological substances; Z91.041 Radiographic dye allergy status; I25.2 Old myocardial infarction; Z95.5 Presence of coronary angioplasty implant and graft
CPT/HCPCS: 36415; 71046; 80048; 80053; 82803; 82947; 83605; 83735; 83880; 84484; 85025; 85027; 86140; 87040; 87641; 93005; 94640; 94660; 99285; A9270-GY; G8978-GP-CM; G8979-GP-CK; J1940; J2930; J3475; J3535; J7512